=== PATIENT | female | born 1945 | race Caucasian/White ===

== ENCOUNTER 2020-10-05 07:49 | Outpatient (REF) | payer MEDICARE, SELFPAY ==
[2020-10-05 11:39] LABS: Estimated Average Glucose 128 mg/dL; Hemoglobin A1c % 6.1 %
[2020-10-05 11:43] LABS: Alanine Aminotransferase 24 U/L (0-31); Anion Gap 15 (12-20); Aspartate Amino Transferase 24 U/L (5-31); Blood Urea Nitrogen 21 mg/dL (9-16); Calcium 9.7 mg/dL (8.4-10.2); Carbon Dioxide 25 mmol/L (22-29); Chloride 103 mmol/L (96-108); Cholesterol 265 mg/dL; Estimated Glomerular Filt Rate > 60; Glucose Fasting 147 mg/dL (60-99); HDL Cholesterol 40 mg/dL; LDL Cholesterol Calculated 155 mg/dl; Potassium 4.4 mmol/l (3.3-5.1); Sodium 139 mmol/L (135-145); Triglycerides 353 mg/dL
[2020-10-05 12:06] LABS: Thyroid Stimulating Hormone 1.23 uIU/mL (0.32-4.0)
== END 2020-10-05 07:50 | disposition home or self-care (01) ==
LOC: HO.HMGCLDS 07:49
PROVIDERS: PCP Internal Medicine; Visit Provider Internal Medicine
DX: E78.5 Hyperlipidemia, unspecified (principal); F33.42 Major depressive disorder, recurrent, in full remission; E11.9 Type 2 diabetes mellitus without complications; I10 Essential (primary) hypertension
CPT/HCPCS: 80048; 80061; 83036; 84443; 84450; 84460

== ENCOUNTER 2020-10-27 10:00 | Outpatient (REF) | payer MEDICARE, SELFPAY ==
[2020-10-28 10:11] LABS: Anti-Thrombin III Activity 105 % normal (80-135)
[2020-10-28 17:18] LABS: Homocysteine 12.1 umol/L (<10.4)
[2020-10-29 21:28] LABS: Protein C Activity >200 % (70-180); Protein S Activity rflx Tot&Fr 107 % (60-140)
== END 2020-10-27 10:01 | disposition home or self-care (01) ==
LOC: HO.HMGCLDS 10:00
PROVIDERS: PCP Internal Medicine; Visit Provider Internal Medicine
DX: I26.99 Other pulmonary embolism without acute cor pulmonale (principal)
CPT/HCPCS: 36415; 81241; 83090; 85300; 85302; 85303; 85305; 85306

== ENCOUNTER → 2020-11-07 14:50 | Outpatient (BNVA) | payer MEDICARE, SELFPAY | PROVIDERS: PCP Internal Medicine; Visit Provider Hospitalist | DX: I26.99 Other pulmonary embolism without acute cor pulmonale (principal); K21.9 Gastro-esophageal reflux disease without esophagitis; R91.8 Other nonspecific abnormal finding of lung field; J43.2 Centrilobular emphysema | CPT/HCPCS: 99202 ==

== ENCOUNTER → 2020-11-14 13:01 | Outpatient (REF) | payer MEDICARE, SELFPAY ==
--- NOTE | 2020-11-14 13:04 | NM_ITS ---
PULMONARY PERFUSION ONLY STUDY: CLINICAL INDICATION: Pulmonary embolism without acute cor pulmonale. History of bilateral acute pulmonary embolism with near occlusive lobar thrombi involving right upper lobe, right middle lobe, and right lower lobe and subsegmental thrombi within the left upper and left lower lobe, detected on outside CTA of the chest done on 10/16/2020. PROCEDURE: Following the intravenous administration of 4.0 millicuries technetium 99m MAA, images of the chest were obtained in multiple projections using a gamma scintiphotographic camera. The radiotracer was injected through left antecubital superficial vein without complications. COMPARISON: Report from prior CT of the chest done on 10/16/2020. Chest radiograph done earlier today. The chest radiographs shows bilateral clear lung rodas. PERFUSION IMAGES: Subtle peripheral moderate size wedge-shaped defects are identified within the right upper lobe and also left upper lobe (2 on the right and one on the left). Asymmetric decreased perfusion is also noted within the right lung especially involving the right upper lobe. Subtle similar-appearing wedge-shaped defects are also noted at both lung bases, base seen on the posterior projection (one on each side). Given the history of bilateral pulmonary thromboembolism, the findings likely represent resolving thromboembolism. The remainder of the lung rodas bilaterally shows smooth homogenous radiotracer distribution. NM/NM pul perfusion IMPRESSION: Given the history of bilateral multilobar pulmonary thromboembolism, subtle perfusion defects seen at both upper and both lower lobes likely represents resolving thromboembolism. Based on perfusion only modified PIOPED 2 criteria, the findings are consistent with PE present. Correlation with follow-up CTA of the chest may be considered for further clarification, if clinically appropriate. Alternatively, the patient may be followed with follow-up perfusion scan to document complete resolution. This critical result was discussed with Dr. Carlos MD at 4:10 PM on 11/14/2020 and it was ascertained that the content and urgency of the report was understood at the time of direct communication.
--- NOTE | 2020-11-14 13:17 | XR_ITS ---
EXAMINATION: XR CHEST CLINICAL INFORMATION: Shortness of breath. Other pulmonary embolism without cor pulmonale. COMPARISON: None TECHNIQUE: 2 views of the chest were obtained. FINDINGS: No significant abnormality is noted involving the heart, lungs, mediastinum, bony thorax or soft tissues. Multilevel sternotomy wires are intact. XR/XR chest 2V IMPRESSION: No acute cardiopulmonary process.
== END ==
LOC: HO.NUCMED 13:01
PROVIDERS: Visit Provider Hospitalist
DX: I26.99 Other pulmonary embolism without acute cor pulmonale (principal)
CPT/HCPCS: 71046; 78580; A9540

== ENCOUNTER 2020-11-15 07:36 | Outpatient (REF) | payer MEDICARE, SELFPAY ==
--- NOTE | 2020-11-15 07:37 | CT_ITS ---
EXAMINATION: CT ABDOMEN AND PELVIS WITH CONTRAST CLINICAL INFORMATION: Evaluate for malignancy. COMPARISON: Abdominal CT dated 06/12/2009. TECHNIQUE: Multidetector volumetric images were obtained from the superior aspect of the liver through the pubic symphysis following administration 85 mL of Omnipaque 350 intravenous contrast. Sagittal and coronal reformatted images were obtained on the technologist's workstation. Oral contrast: No This CT examination was performed using dose optimization techniques as appropriate, variously including the following: *Automated exposure control *Adjustment of mA and/or kV according to patient size (this includes techniques or standardized protocols for targeted exams where dose is matched to indication/reason for exam; i.e. extremities or head) *Use of iterative reconstruction technique DLP: 677 mGy-cm FINDINGS: LUNG BASES: Although incompletely visualized, there is a low-density filling defect in the right lower lobe pulmonary artery extending into segmental and subsegmental branches, consistent with a pulmonary embolism. Pulmonary embolic disease also partially visualized in the right middle lobe branch and left lower lobe posterior segmental and subsegmental branches. Dense mitral annular calcification noted. Heart size is normal. No pericardial or pleural effusion is seen. No airspace consolidation visible in the lung bases. LIVER, GALLBLADDER, AND BILIARY TREE: The liver is enlarged, measuring 22 cm craniocaudal. No focal hepatic lesion or biliary ductal dilatation is present. The gallbladder is unremarkable with no evidence of radiopaque gallstones, gallbladder wall thickening, or obvious pericholecystic inflammatory changes. PANCREAS: Unremarkable. SPLEEN: Unremarkable. ADRENAL GLANDS: Unremarkable. KIDNEYS AND URETERS: The kidneys are normal in size, shape, and attenuation. No hydronephrosis, hydroureter, or calculi seen. No perinephric stranding. BLADDER: Unremarkable. GASTROINTESTINAL TRACT: Scattered sigmoid colon diverticula noted without evidence of acute diverticulitis. No focal large bowel thickening is seen. No pericolonic inflammatory changes identified. There is no evidence of a bowel obstruction. ABDOMINAL WALL: Small fat-containing umbilical hernia. LYMPH NODES: Normal. VASCULAR: The infrarenal abdominal aorta measures 3.3 cm AP with moderate atherosclerotic wall calcifications, stable compared to prior imaging. PELVIC VISCERA: The uterus is not visualized, presumed, status post prior hysterectomy. OSSEOUS STRUCTURES: No acute osseous abnormality evident. Significant facet arthropathy noted at the L5-S1 level. CT/CT abdomen pelvis w con IMPRESSION: Incompletely visualized pulmonary embolism in the right lower lobe pulmonary artery extending into segmental and subsegmental branches. Pulmonary embolic disease in the right middle lobe lobe arterial branch and in left lower lobe segmental and subsegmental arterial branches. These findings were relayed to Dr. Gonzalez at 1:26 PM on 11/15/2020. The patient has known pulmonary emboli and is currently being treated. No suspicious soft tissue mass or adenopathy. Stable infrarenal abdominal aorta with moderate atherosclerotic wall calcifications. Sigmoid colonic diverticulosis. Hepatomegaly.
--- NOTE | 2020-11-15 08:32 | CA_ITS ---
Transthoracic Echocardiogram Patient (Last, First, Middle): Brittany Onofre A Gender: Female Date of : 1945 Age: 75 Procedure Date: 11/15/2020 Procedure Type: Transthoracic Echocardiogram Location: OP Height: 154.94 cm Weight: 96.16 kg BSA: 1.94 m2 Heart Rate: bpm BP: 144 / 78 mmHg Junior Financial Analyst: ALIDA Referring MD: Clifton Gonzalez MD Repairer Controller Tester: Nasir Michelle MD Symptoms: I27.20 - Pulmonary hypertension, unspecified Study Quality: Fair ECG Rhythm: Sinus Conclusions: - 1. Normal LV systolic function with impaired relaxation filling pattern 2. Moderate aortic stenosis 3. Moderate mitral calcification mild mitral regurgitation 4. Normal RV systolic pressure 5. No pericardial effusion Findings Left Ventricle Normal left ventricular size, thickness, and systolic function. The visually estimated ejection fraction is between 60-65%. There is paradoxical septal motion consistent with post-operative status. Spectral Doppler is indicative of an impaired relaxation filling pattern. E/E prime ratio is between 8 and 15 consistent with indeterminate filling pressures. Right Ventricle Normal right ventricular cavity size and systolic function. Atria The left atrium is likely dilated. There is no evidence of interatrial shunt. The right atrium is normal in size. Aortic Valve There is moderate calcification of the aortic valve. There is moderate thickening of the aortic valve. There is moderate aortic valve stenosis. The peak aortic gradient is 34 mmHg.The mean gradient is 22 mmHg. There is no aortic valve regurgitation. Mitral Valve There is mild anterior and moderate posterior mitral leaflet thickening. There is moderate mitral annular calcification. There is mild mitral valve regurgitation. There is no mitral valve stenosis. Pulmonic Valve The pulmonic valve was not well visualized. Tricuspid Valve Likely normal tricuspid valve structure and function. There is mild tricuspid valve regurgitation. The right ventricular systolic pressure is normal. The right ventricular systolic pressure is 24 mmHg. Normal right atrial pressure. There is no evidence of pulmonary hypertension. Great Vessels All visible segments of the aorta are normal in size. The pulmonary artery was not well visualized. Venous The inferior vena cava is normal in size and collapses greater than 50% with inspiration. Pericardium/Pleural There is no evidence of pericardial effusion. Prior Study Comparison No prior study available for comparison. Measurements 2D Linear Measurements IVSd: 1.07 0.6-0.9/0.6-1.0 cm LVIDd: 5.13 3.9-5.3/4.2-5.9 cm LVIDd Index: 2.64 2.4-3.2/2.2-3.1 cm/m2 LVIDs: 4.23 2.0-3.6 cm LVPWd: 0.65 0.7-1.1 cm Ao Root: 2.60 2.1-3.5 cm LA Diam: 4.20 2.7-3.8/3.0-4.0 cm LAIDs Index: 2.16 1.5-2.3 cm/m2 LV Mass: 193.87 67-162/88-224 g LV Mass Index: 99.93 43-95/49-115 g/m2 LVOT Diam: 2.00 3.0+(-)1.3 cm 2D Systolic Function EF 4C: 57.80 >55% Mitral Valve MV Pk E: 0.90 MV PK A: 1.13 MV Decel Time: 183.00 E/A: 0.80 E'Lateral: 6.19 E'Medial: 6.00 E/E' Med: 15.00 E/E' Lat: 14.50 PHT: 54.00 MVA PHT: 4.07 Decel [place]: 4.90 Aortic Valve AoV Pk Ronny: 2.90 AoV Mn Ronny: 2.19 AoV VTI: 0.70 AoV Pk Grad: 34.00 Aov Mn Grad: 22.00 JOSY Cont.VTI: 1.20 LVOT LVOT Pk Ronny: 0.98 LVOT Mn Ronny: 0.69 LVOT VTI: 0.24 LVOT Pk Grad: 4.00 LVOT Mn Grad: 2.00 LVOT Diam: 2.00 LVOT Area: 3.14 Diastolic Function MV Pk E: 0.90 MV Pk A: 1.13 E/A: 0.80 E'Medial: 6.00 E/E' Med: 15.00 E' Laterial: 6.19 E/E' Lat: 14.50 Tricuspid Valve TR Pk Ronny: 228.00 TR Pk Grad: 21.00 RA Press: 3.00 RVSP: 24.00 Great Vessels Aorta Ao Root-2D: 2.60 2.0-3.7 cm Ao Asc: 3.20 2.1-3.4 cm Updated in Other Vendor System with Status of Final Nasir Michelle MD electronically signed on 11/16/2020 1:01:50 PM with status of Final
[2020-11-15] MEDS: iohexoL 350 MG/ML 100 ML INFUS..BTL IV (10:54)
[2020-11-15] MEDS: Barium Sulfate Oral (Vanilla) 450 ML ORAL.SUSP 900 ML PO (10:55)
== END 2020-11-15 07:37 | disposition home or self-care (01) ==
LOC: HO.CT 07:36
PROVIDERS: Visit Provider Hospitalist
DX: I27.20 Pulmonary hypertension, unspecified (principal); I26.99 Other pulmonary embolism without acute cor pulmonale; K21.9 Gastro-esophageal reflux disease without esophagitis; K58.2 Mixed irritable bowel syndrome
CPT/HCPCS: 74177; 93306; Q9967

== ENCOUNTER 2020-11-21 12:48 | Outpatient (REF) | payer MEDICARE, SELFPAY ==
--- NOTE | ~2020-11-21 | MM_ITS ---
EXAMINATION: MM SCREENING DIGITAL BREAST TOMOSYNTHESIS, BILATERAL CLINICAL INFORMATION: Screening. Asymptomatic. Prior reduction mammoplasty 2010. The lifetime risk of breast cancer based on the Tyrer-Cuzick Model is 2%. COMPARISON: Mammography: 09/07/2019, 02/25/2019, 02/13/2018, 12/17/2016 TECHNIQUE: Digital breast tomosynthesis is performed in both the craniocaudal and mediolateral oblique views along with computer-aided detection (CAD). Synthesized 2D images are generated from the tomosynthesis. FINDINGS: There are scattered areas of fibroglandular density (ACR BI-RADS breast composition Category b). There are no significant masses, abnormal calcifications, or other abnormalities. Background stromal densities are similar to prior studies. There is no developing density or interval mass or architectural abnormality. The skin contours are smooth. MM/MM tomosynthesis screening BI IMPRESSION: No mammographic evidence of malignancy. ASSESSMENT: BI-RADS 1: Negative RECOMMENDATION: Routine annual mammography screening. This patient's information was entered into a reminder system with a target due date for their next mammogram.
== END 2020-11-21 12:49 | disposition home or self-care (01) ==
LOC: HO.MAMMO 12:48
PROVIDERS: PCP Internal Medicine; Visit Provider Internal Medicine
DX: Z12.31 Encounter for screening mammogram for malignant neoplasm of breast (principal)
CPT/HCPCS: 77063; 77067

== ENCOUNTER 2020-12-08 09:53 | Outpatient (REF) | payer MEDICARE, SELFPAY ==
[2020-12-08 11:14] LABS: MANUAL DIFF FLAG NO
[2020-12-08 11:22] LABS: Basophils Percent Auto 0.2 % (0-2); Eosinophils Absolute Auto 0.1 X10*3/uL (0.0-0.4); Eosinophils Percent Auto 2.5 % (0-4); Hematocrit 25.3 % (37-47); Hemoglobin 7.6 g/dl (12.0-16.0); Imm Gran Abs Auto 0.01 X10*3/uL (0.00-0.03); Imm Gran Pct Auto 0.2 % (0.0-0.4); Lymphocytes Absolute Auto 1.7 X10*3/uL (1.2-4.9); Lymphocytes Percent Auto 29.6 % (20-40); Mean Corpuscular Hemoglobin 32.5 pg (27.0-33.0); Mean Corpuscular Volume 108.1 fL (80-98); Mean Platelet Volume 9.9 fL (9.4-12.3); Monocytes Absolute Auto 0.6 X10*3/uL (0.1-1.2); Monocytes Percent Auto 9.9 % (2-11); NRBC Pct Auto 0.4 /100WBC (0.0-0.2); Neutrophils Absolute Auto 3.2 X10*3/uL (2.0-8.3); Neutrophils Percent Auto 57.6 % (45-73); Platelet Count 310 X10*3/uL (160-400); Red Blood Count 2.34 X10*6/uL (4.20-5.50); Red Cell Distribution Width 15.2 % (11.0-16.0); White Blood Count 5.6 X10*3/uL (4.8-10.8)
[2020-12-08 11:27] LABS: INTERNATIONAL NORM RATIO 1.2 (0.9-1.1); Prothrombin Time 14.3 SEC (10.8-13.0)
[2020-12-08 11:53] LABS: Alanine Aminotransferase 11 U/L (0-31); Albumin Level 4.2 g/dL (3.5-5.0); Alkaline Phosphatase 50 U/L (39-117); Aspartate Amino Transferase 15 U/L (5-31); Bilirubin Direct < 0.2 mg/dL (0.0-0.5); Bilirubin Total 0.2 mg/dL (0.0-1.0)
[2020-12-08 12:01] LABS: Erythrocyte Sedimentation Rate 78 MM/HR (0-20)
== END 2020-12-08 09:54 | disposition home or self-care (01) ==
LOC: HO.HMGCLDS 09:53
PROVIDERS: PCP Internal Medicine; Visit Provider Hospitalist
DX: Z13.89 Encounter for screening for other disorder (principal)
CPT/HCPCS: 36415; 80076; 85025; 85610; 85652

== ENCOUNTER 2020-12-08 13:34 | Inpatient (IN) | payer MEDICARE, SELFPAY ==
[2020-12-08] VITALS (11 sets, daily range): BP systolic 110–151; BP diastolic 41–94; PULSE 88–105; RESP 14–20; TEMP 36.7–36.9; O2SAT 97–98; BMI 40.4
--- NOTE | 2020-12-08 13:41 | ED.RECABL ---
HPI - Recheck/Abnormal Lab/Rx General Chief Complaint: Recheck/Abnormal Lab/Rx Stated Complaint: low hemoglobin Time Seen by Provider: 12/08/20 13:39 Source: patient and old records reviewed Mode of arrival: ambulatory Limitations: no limitations History of Present Illness HPI narrative: 75 yo female with CAD, COPD lung nodules, recent submassive PE on eliquis took her dose this AM (October 2020), HPL, restless leg syndrome, DM, HTN, GERD notes fatigue x 1 week, and upper abdominal discomfort not responding to her PPI or pepto bismol unsure if she has had black stools but had a h/h today and found that her Hgb went from 12 to 7.6, she had a CT scan of her abdomen 11/15/20 no mass noted but did have diverticulosis complaint: abnormal lab Initial visit (ago): hour(s) (10am today ) Initial visit for: other (workup post PE) Returns today for: called because of abnormal lab/test Symptoms since prior visit: no new symptoms Context: called for abnormal lab result Associated symptoms: other (fatigue, darker stools) Treatments prior to arrival: other (has noted some increased upper abdominal discomfort and has been taking pepto bismol as well ) Related Data Home Medications Medication Instructions Recorded Confirmed aspirin 81 mg tablet,delayed 81 mg PO DAILY 10/26/20 12/08/20 release atorvastatin 80 mg tablet 80 mg PO DAILY 10/26/20 12/08/20 cholecalciferol (vitamin D3) 50 50 mcg PO DAILY 10/26/20 12/08/20 mcg (2,000 unit) capsule ferrous fumarate 325 mg (106 mg 325 mg PO DAILY 10/26/20 12/08/20 iron) tablet glipizide 5 mg tablet 5 mg PO BID 10/26/20 12/08/20 metformin 500 mg tablet 500 mg PO DAILY 10/26/20 12/08/20 omeprazole 20 mg capsule,delayed 20 mg PO DAILY 10/26/20 12/08/20 release verapamil 100 mg capsule 24hr 100 mg PO BEDTIME 10/26/20 12/08/[address],ext.release acetaminophen 500 mg tablet 500 mg PO Q6H PRN 11/07/20 12/08/20 Previous Rx's Medication Instructions Recorded lisinopril 2.5 mg tablet 2.5 mg PO DAILY #90 tab 07/24/20 metoprolol succinate 50 mg 150 mg PO DAILY #270 tab 07/24/20 tablet,extended release 24 hr pramipexole 0.25 mg tablet 0.25 mg PO BID PRN #180 tab 07/24/20 trazodone 50 mg tablet 50 mg PO BEDTIME #90 tab 07/24/20 duloxetine 30 mg capsule,delayed 30 mg PO DAILY #90 cap 11/14/20 release alprazolam 0.25 mg tablet 0.25 mg PO DAILY PRN #20 tab 11/27/20 apixaban 5 mg tablet 5 mg PO Q12H #60 tab 11/29/20 Allergies Allergy/AdvReac Type Severity Reaction Status Date / Time Sulfa (Sulfonamide Allergy Severe Rash Verified 11/07/20 19:08 Antibiotics) adhesive tape [ADHESIVE TAPE] Allergy Intermediate BLISTERS Verified 11/07/20 19:08 sulfamethoxazole Allergy Intermediate RASH Verified 11/07/20 19:08 [From BACTRIM] trimethoprim [From BACTRIM] Allergy Intermediate RASH Verified 11/07/20 19:08 gabapentin AdvReac Severe hallucinati Verified 11/07/20 19:08 on morphine AdvReac Severe hallucinati Verified 11/07/20 19:08 on Review of Systems Review of Systems: Constitutional : No Weight loss, No Fever, No Chills, pos fatigue ENT/Mouth : No sore throat, No Rhinorrhea Eyes: No Swelling, No Redness Cardiovascular : No Chest Pain, No SOB, NoEdema Respiratory : No Cough, No Sputum, No Wheezing Gastrointestinal : no Nausea, no Vomiting, no Diarrhea, no abdominal Pain, No Hematochezia, pos Melena Genitourinary : No Dysuria, No Urinary Frequency, No Hematuria, No Urgency Musculoskeletal : No joint pain, No Myalgias, No Joint Swelling Skin : No Skin Lesions, No rash Neuro : No Weakness, No Numbness, No Dizziness, No Headache Psych : No Anxiety/Panic, No Depression Heme/Lymph: No Bruising, No Lymphadenopathy Endocrine : No Polyuria, No Polydipsia All other systems reviewed and are negative. [facility] Past Medical History Attestation statement: The following information was validated with the patient. Medical History Bilateral pulmonary embolism CAD (coronary artery disease) COPD (chronic obstructive pulmonary disease) Essential hypertension GERD without esophagitis Irritable bowel syndrome with both constipation and diarrhea Left upper lobe pulmonary nodule Major depression in full remission Mixed dyslipidemia Pulmonary nodules Restless leg syndrome Type 2 diabetes mellitus without complication, without long-term current use of insulin Surgical History History of angioplasty History of heart artery stent History of knee replacement History of lymphoma S/P CABG x 2 Family History Family History Father HTN (hypertension) Myocardial infarction Hyperlipidemia Abdominal aneurysm Mother HTN (hypertension) Myocardial infarction Hyperlipidemia Brother Alzheimer's disease Sister Rheumatoid arthritis Brother Rheumatoid arthritis Maternal Aunt Diabetes mellitus Lung cancer Maternal Uncle Diabetes mellitus Son No problems noted. Daughter No problems noted. Social History Social History Alcohol intake: never Smoking Status: Former smoker Tobacco Type: Cigarette Smoked in Last 30 Days: No Use of substances other than those prescribed or required for medical reasons: No Advance Directives: No Advance Directives Information Provided: No Physical Exam Vital Signs: Vital Signs: Last Vital Signs Temp 98.1 F 12/08/20 15:14 Pulse 88 12/08/20 15:14 Resp 18 12/08/20 15:14 BP 110/51 L 12/08/20 15:14 Pulse Ox 97 12/08/20 15:14 Body Mass Index 40.4 Appearance: Alert. Oriented X3. No acute distress. Eyes: Pupils equal, round and reactive to light. ENT: Pharynx normal. Neck: Normal inspection. Neck supple. CVS: Normal heart rate and rhythm. Pulses normal. Respiratory: No respiratory distress. Breath sounds normal. Abdomen: Soft and nontender. Rectal: multiple enlarged non thrombotic hemorrhoids, black streaked stool, no brb no bleeding hemorrhoids Skin: Skin warm and dry. Normal skin color. Normal skin turgor. Extremities: No lower extremity edema. No calf ttp Neuro: Oriented X 3. No motor deficit. No sensory deficit. Course Course Course Narrative: 2 UPRBCs ordered MDM - Recheck/Abnormal Lab/Rx MDM Narrative Medical decision making narrative: 75 yo female with COPD, pulm nodules, recent submassive PE on eliquis took her dose this AM, CAD, sent here for low H/H, has had some black stools and epigastric burning - does take a PPI at this time will need labs, type an screen 2 UPRBCs, IV PPI, likely admit for further workup. Lab Data Result diagrams: 12/08/20 14:18 Labs: Lab Results 12/08/20 12/08/20 12/08/20 Range/Units 14:13 14:14 14:17 Sodium (135-145) mmol/L Potassium (3.3-5.1) mmol/L Chloride (96-108) mmol/L Carbon Dioxide (22-29) mmol/L Anion Gap (12-20) BUN (9-16) mg/dL Creatinine (0.5-1.4) mg/dL Estim Creat Clear Calc Estimated GFR Random Glucose (60-115) mg/dL Calcium (8.4-10.2) mg/dL Iron (30-160) mcg/dL TIBC (228-428) mcg/dL % Saturation (15-50) % Unsat Iron Binding ug/dL Stool Occult Blood NEG (NEG) COVID-19 (ARNAV) Negative (Negative) [id number] Com See Note Blood Type A Positive Antibody Screen NEGATIVE Crossmatch See Detail 12/08/20 Range/Units 14:18 Sodium 141 (135-145) mmol/L Potassium 4.2 (3.3-5.1) mmol/L Chloride 106 (96-108) mmol/L Carbon Dioxide 25 (22-29) mmol/L Anion Gap 14 (12-20) BUN 20 H (9-16) mg/dL Creatinine 0.79 (0.5-1.4) mg/dL Estim Creat Clear Calc 67.6 Estimated GFR > 60 Random Glucose 104 (60-115) mg/dL Calcium 9.2 (8.4-10.2) mg/dL Iron 336 H (30-160) mcg/dL TIBC 402 (228-428) mcg/dL % Saturation 84 H (15-50) % Unsat Iron Binding 66 ug/dL Stool Occult Blood (NEG) COVID-19 (ARNAV) (Negative) COVID-19 Clin Com Blood Type Antibody Screen Crossmatch ECG Data Attestation: I personally reviewed and interpreted this ECG as follows: ECG interpretation date: 12/08/20 ECG interpretation time: 14:10 Interpretation: Rate: 86 Rhythm: NSR [place]: left Normal P waves. Normal ASTER. Normal QRS complex. ST T wave : nonspecific no ERICA qTC: normal prior studies: no acute ischemia The study has been interpreted contemporaneously by me. . Critical Care Time Critical Care Time Critical Care Time: Yes Total Critical Care Time: 35 Attestation: review of notes, 2 UPRBCs transfusion I attest to this time spent taking care of the patient Discharge Plan Discharge Clinical Impression: Anemia Qualifiers: Anemia type: unspecified type Qualified Code(s): D64.9 - Anemia, unspecified GIB (gastrointestinal bleeding) Qualifiers: GI bleed type/associated pathology: melena Qualified Code(s): K92.1 - Melena Patient Disposition: Admitted As Inpatient
--- NOTE | 2020-12-08 13:43 | ECG_ITS ---
Test Reason : RECHECK Blood Pressure : / mmHG Vent. Rate : 086 BPM Atrial Rate : 086 BPM P-R Int : 168 ms QRS Dur : 090 ms QT Int : 390 ms P-R-T Axes : 056 -03 024 degrees QTc Int : 466 ms Normal sinus rhythm Normal ECG When compared with ECG of 03-FEB-2019 12:04, Premature ventricular complexes are no longer Present Referred By: Winifred Bautista Electronically Signed By:JADON PATEL MD
[2020-12-08 14:31] LABS: OBS1 NEG (NEG)
[2020-12-08 14:32] LABS: OBS Int Ctl Valid YES
[2020-12-08 14:46] LABS: COVID-19 Test Negative (Negative)
[2020-12-08 14:52] LABS: Anion Gap 14 (12-20); Blood Urea Nitrogen 20 mg/dL (9-16); Calcium 9.2 mg/dL (8.4-10.2); Carbon Dioxide 25 mmol/L (22-29); Chloride 106 mmol/L (96-108); Creatinine Clr Calc Pharmacy 67.6; Estimated Glomerular Filt Rate > 60; Glucose Random 104 mg/dL (60-115); Iron 336 mcg/dL (30-160); Percent Iron Saturation 84 % (15-50); Potassium 4.2 mmol/L (3.3-5.1); Sodium 141 mmol/L (135-145); Total Iron Binding Capacity 402 mcg/dL (228-428); Unsaturated Iron Binding 66 ug/dL
[2020-12-08] MEDS: Pantoprazole Sodium 40 MG/10 ML VIAL IVPUSH (15:04)
[2020-12-08 16:51] LABS: Folate 9.6 ng/mL (> or = 4.0); Vitamin B12 162 pg/mL (200-900)
--- NOTE | 2020-12-08 17:58 | PM.IMHP ---
History of Present Illness Date of Service: 12/08/20 Chief Complaint: Increased lethargy, weakness A 75 years old lady with PMH of CAD, COPD, lung nodules, recent PE on Eliquis who presents to the hospital with a complaint of increased lethargy and weakness. The patient reported that she was doing well until almost 1 week ago when she started to notice that she became very easily winded with minimal activity at her energy level has decreased significantly. She reports that she started Eliquis last month after being diagnosed with PE. She noticed that her stools have been black but reports that she takes iron pills and test with has been always dark. Her baseline hemoglobin was noted to be around 13 what in the emergency today was noticed to be 7.6. In the emergency blood transfusion was started in the patient was admitted to the hospital for further evaluation and treatment. Review of Systems Constitutional: Comments: No fever, chills but feeling fatigue and generalized weakness No chest pain, palpitation Exertional shortness of breath or coughing No abdominal pain, nausea or vomiting No urinary symptoms No any rash or wounds PMFSH Medical History Bilateral pulmonary embolism CAD (coronary artery disease) COPD (chronic obstructive pulmonary disease) Essential hypertension GERD without esophagitis Irritable bowel syndrome with both constipation and diarrhea Left upper lobe pulmonary nodule Major depression in full remission Mixed dyslipidemia Pulmonary nodules Restless leg syndrome Type 2 diabetes mellitus without complication, without long-term current use of insulin Family History Father HTN (hypertension) Myocardial infarction Hyperlipidemia Abdominal aneurysm Mother HTN (hypertension) Myocardial infarction Hyperlipidemia Brother Alzheimer's disease Sister Rheumatoid arthritis Brother Rheumatoid arthritis Maternal Aunt Diabetes mellitus Lung cancer Maternal Uncle Diabetes mellitus Son No problems noted. Daughter No problems noted. Surgical History History of angioplasty History of heart artery stent History of knee replacement History of lymphoma S/P CABG x 2 Social History Alcohol intake: never Smoking Status: Former smoker Tobacco Type: Cigarette Smoked in Last 30 Days: No Use of substances other than those prescribed or required for medical reasons: No Advance Directives: No Advance Directives Information Provided: No Meds Allergies Allergy/AdvReac Type Severity Reaction Status Date / Time Sulfa (Sulfonamide Allergy Severe Rash Verified 11/07/20 19:08 Antibiotics) adhesive tape [ADHESIVE TAPE] Allergy Intermediate BLISTERS Verified 11/07/20 19:08 sulfamethoxazole Allergy Intermediate RASH Verified 11/07/20 19:08 [From BACTRIM] trimethoprim [From BACTRIM] Allergy Intermediate RASH Verified 11/07/20 19:08 gabapentin AdvReac Severe hallucinati Verified 11/07/20 19:08 on morphine AdvReac Severe hallucinati Verified 11/07/20 19:08 on Active Medications: Current Medications Generic Name Dose Route Start Last Admin Trade Name Freq PRN Reason Stop Dose Admin Pantoprazole Sodium 80 mg/ 100 mls @ 10 mls/hr 12/08/20 16:00 Sodium Chloride IV .Q10H CHRISTY 8 MG/HR Insulin Human Lispro 0 unit 12/08/20 21:00 Insulin Lispro 100 Unit/Ml 3 Ml Vial SUBCUT [facility] Protocol Pharmacy Consult 1 each 12/08/20 13:43 Consult Rx Perform Med Rec MISCELLANE ONCE PRN Consult order Zolpidem Tartrate 5 mg 12/08/20 21:00 Zolpidem Tartrate 5 Mg Tablet PO 12/10/20 21:01 BEDTIME [facility] Home Medications Medication Instructions Recorded Confirmed Last Taken Type aspirin 81 mg tablet,delayed 81 mg PO DAILY 10/26/20 12/08/20 12/08/20 History release atorvastatin 80 mg tablet 80 mg PO DAILY 10/26/20 12/08/20 12/08/20 History cholecalciferol (vitamin D3) 50 50 mcg PO DAILY 10/26/20 12/08/20 12/08/20 History mcg (2,000 unit) capsule ferrous fumarate 325 mg (106 mg 325 mg PO DAILY 10/26/20 12/08/20 12/08/20 History iron) tablet glipizide 5 mg tablet 5 mg PO BID 10/26/20 12/08/20 12/08/20 History metformin 500 mg tablet 500 mg PO DAILY 10/26/20 12/08/20 12/08/20 History omeprazole 20 mg capsule,delayed 20 mg PO DAILY 10/26/20 12/08/20 12/08/20 History release verapamil 100 mg capsule 24hr 100 mg PO BEDTIME 10/26/20 12/08/20 12/07/[address],ext.release acetaminophen 500 mg tablet 500 mg PO Q6H PRN 11/07/20 12/08/20 12/08/20 History Physical Exam Vital Signs and Narrative: Vital Signs: Last Vital Signs Temp 98.2 F 12/08/20 16:36 Pulse 89 12/08/20 16:36 Resp 19 12/08/20 16:36 BP 117/41 L 12/08/20 16:36 Pulse Ox 98 12/08/20 16:09 Body Mass Index 40.4 Const: Other: Constitutional : Alert, oriented, not in distress Neck : Normal inspection, Supple Cardiovascular : RRR, S1 S2, no lower extremity edema Respiratory : Good bilateral air entry, no crackles, wheezes or rhonchi Gastrointestinal: soft, lax, Normal bowel sounds, Non tender Skin : Warm/Dry, No rash Neurological : Alert & oriented x3, No focal deficit Results Labs CBC and Chem 7: 12/08/20 14:18 Labs: Laboratory Results - last 24 hr 12/08/20 12/08/20 12/08/20 14:13 14:14 14:17 Anion Gap Estim Creat Clear Calc Estimated GFR Random Glucose Calcium Iron TIBC % Saturation Unsat Iron Binding Vitamin B12 Folate Stool Occult Blood NEG COVID-19 (ARNAV) Negative COVID-Incont See Note Blood Type A Positive Antibody Screen NEGATIVE Crossmatch See Detail 12/08/20 12/08/20 14:18 14:18 Anion Gap 14 Estim Creat Clear Calc 67.6 Estimated GFR > 60 Random Glucose 104 Calcium 9.2 Iron 336 H TIBC 402 % Saturation 84 H Unsat Iron Binding 66 Vitamin B12 162 L Folate 9.6 Stool Occult Blood COVID-19 (ARNAV) COVID-19 Clin Com Blood Type Antibody Screen Crossmatch Assessment and Plan (1) Acute blood loss anemia: Status: Acute (2) Symptomatic anemia: Status: Acute (3) GIB (gastrointestinal bleeding): Qualifiers: GI bleed type/associated pathology: melena Qualified Code(s): K92.1 - Melena Status: Acute (4) COPD (chronic obstructive pulmonary disease): Qualifiers: COPD type: emphysema Emphysema type: centrilobular Qualified Code(s): J43.2 - Centrilobular emphysema Status: Acute (5) Bilateral pulmonary embolism: Status: Acute A 75 years old lady with PMH of CAD, COPD, lung nodules, recent PE on Eliquis who presents to the hospital with a complaint of increased lethargy and weakness. blood loss anemia Symptomatic anemia Likely a result of GI bleed which is more of chronic than acute Hemoglobin of 7.6, goal to keep it above 8, to transfuse Monitor H&H Start pantoprazole drip Hold Eliquis for now Gentle hydration Keep NPO after midnight To get GI evaluation the morning History CAD, HTN Continue atorvastatin, lisinopril, metoprolol and verapamil Diabetes type 2 Hold p.o. medications SSI next Lyme diabetic diet Recent PE The patient developed PE on 11/05/2020 Underlying [place] thought to be malignancy given pulmonary nodules, expected anticoagulation for life To get Hematology evaluation for the future plan DVT PPX SCDs
[2020-12-08] MEDS: Pantoprazole Sodium 80 MG in 0.9 % Sodium Chloride 80 ML 10 MG IV (18:20)
--- NOTE | 2020-12-08 18:29 | MHC.CM.PN ---
CM met with pt. IMM 12/08/20. Reviewed and signed per protocol. Pt. lives at home with her . Has no services/medical equipment. Very independent. HCP/ Clifton Onofre ([phone]). Not on file. Pt believes it is.D/C plan is home without services. Daughter, Mary Kay Urbina ([phone]) to provide transportation. CM to follow for d/c needs.
[2020-12-08 19:27] LABS: Glucose, Whole Blood 122 mg/dL (60-115)
--- NOTE | 2020-12-08 20:36 | PC.NURSE ---
SECOND UNIT OF BLOOD TRANSFUSING. NO REACTIONS NOTED AT THIS TIME. SINUS RHYTHM ON CARDIAC MONTIOR. LUNGS CLEAR TO AUSCULTATION IN ALL BEATTY.
[2020-12-08 21:13] LABS: Glucose, Whole Blood 130 mg/dL (60-115)
[2020-12-08] MEDS: ALPRAZolam 0.25 MG TABLET PO (21:19)
[2020-12-08] MEDS: traZODone HCL 50 MG TABLET PO (21:19)
[2020-12-08] MEDS: Pramipexole Di-HCL 0.25 MG TABLET PO (21:19)
[2020-12-08] MEDS: 0.9 % Sodium Chloride 1,000 ML 60 ML IVCONT (21:44)
--- NOTE | 2020-12-08 22:49 | PC.NURSE ---
SECOND UNIT COMPLETE. LUNGS CLEAR TO AUSCULTATION. 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 PATIENT SITTING UP, RESTLESS LEGS BOTHERING HER.
[2020-12-09] VITALS (8 sets, daily range): BP systolic 122–144; BP diastolic 61–90; PULSE 81–104; RESP 16–20; TEMP 36.2–36.8; O2SAT 96–98
[2020-12-09] MEDS: Acetaminophen 325 MG TABLET 650 MG PO ×2 (00:59→08:54)
[2020-12-09] MEDS: Pantoprazole Sodium 80 MG in 0.9 % Sodium Chloride 80 ML 10 MG IV (04:19)
[2020-12-09] MEDS: traZODone HCL 25 MG HALFTAB PO (06:08)
[2020-12-09 06:55] LABS: Hematocrit 30.7 % (37-47); Hemoglobin 9.9 g/dl (12.0-16.0); Mean Corpuscular HGB Conc 32.2 g/dl (31.0-35.0); Mean Corpuscular Hemoglobin 31.9 pg (27.0-33.0); Mean Platelet Volume 9.6 fL (9.4-12.3); NRBC Pct Auto 0.3 /100WBC (0.0-0.2); Platelet Count 280 X10*3/uL (160-400); Red Cell Distribution Width 18.4 % (11.0-16.0); White Blood Count 7.1 X10*3/uL (4.8-10.8)
[2020-12-09 07:28] LABS: Alanine Aminotransferase 12 U/L (0-31); Albumin Level 4.4 g/dL (3.5-5.0); Alkaline Phosphatase 52 U/L (39-117); Anion Gap 15 (12-20); Aspartate Amino Transferase 17 U/L (5-31); Bilirubin Direct 0.5 mg/dL (0.0-0.5); Bilirubin Total 1.3 mg/dL (0.0-1.0); Blood Urea Nitrogen 18 mg/dL (9-16); Calcium 9.4 mg/dL (8.4-10.2); Carbon Dioxide 22 mmol/L (22-29); Chloride 106 mmol/L (96-108); Creatinine Clr Calc Pharmacy 63.5; Estimated Glomerular Filt Rate > 60; Glucose Random 159 mg/dL (60-115); Sodium 139 mmol/L (135-145); Total Protein 7.4 g/dL (6.5-8.0)
--- NOTE | 2020-12-09 07:52 | PC.NURSE ---
report taken from daniel long pt here for low h+h r/t possible chronic gi bleed. pt hemodynamically stable at this time, did not sleep well d/t restless legs. denies any other complaint at this time. pt has been npo since midnight d/t likely gi procedure today. wctm.
[2020-12-09] MEDS: ALPRAZolam 0.25 MG TABLET PO (08:53)
[2020-12-09] MEDS: Metoprolol Succinate ER 50 MG TAB.ER.24H 150 MG PO (08:53)
[2020-12-09] MEDS: DULoxetine HCl 30 MG CAPSULE.DR PO (08:54)
[2020-12-09 11:45] LABS: Retic HGB Equivalent 32.2 pg (30.0-35.0); Reticulocyte Percent 4.9 % (0.5-1.8); Reticulocytes Absolute 0.151 X10*6/uL (0.026-0.095)
[2020-12-09 11:54] LABS: Lactate Dehydrogenase 232 U/L (122-220)
--- NOTE | 2020-12-09 12:01 | P.CNGI_ITS ---
History of Present Illness Data of Consult Service Date: 12/09/20 Requesting physician: Marisabel Joshua Primary Care Provider: Sary Waite MD HPI Reason for consult: Fatigue, anemia 75 YF presented to [facility] yesterday evening with 1 week history of fatigue and upper abd discomfort. 75 yo female with CAD, COPD lung nodules, recent submassive PE on eliquis took her dose this AM (October 2020), HPL, restless leg syndrome, DM, HTN, GERD notes fatigue x 1 week, and upper abdominal discomfort not responding to her PPI or pepto bismol unsure if she has had black stools but had a h/h today and found that her Hgb went from 12 to 7.6, she had a CT scan of her abdomen 11/15/20 no m ass noted but did have diverticulosis Labs showed macrocytic anemia with H & H of 7.6 and 25.3 (decreased from 12.5 & 36.4 in 06/2020) Vitamin B12 level was 162. Pt was admitted and transfused IMAGING STUDIES: 11/15/[address] SCAN SHOWED: Incompletely visualized pulmonary embolism in the right lower lobe pulmonary artery extending into segmental and subsegmental branches. Pulmonary embolic disease in the right middle lobe lobe arterial branch and in left lower lobe segmental and subsegmental arterial branches. These findings were relayed to Dr. Gonzalez at 1:26 PM on 11/15/2020. The patient has known pulmonary emboli and is currently being treated. No suspicious soft tissue mass or adenopathy. Stable infrarenal abdominal aorta with moderate atherosclerotic wall calcifications. Sigmoid colonic diverticulosis. Hepatomegaly. ENDOSCOPIC STUDIES: 01/2019 EGD AND COLONOSCOPY WERE PREFORMED BY DR BEAVERS: Esophagus: GE junction at 35. No esophagitis or Vicente?s. small varix noted which collapsed with insufflation Stomach: Mild gastric erythema. Biopsies were obtained. Grade 2 flap valve on retroflexed examination of the cardia. Colonoscopy Ascending Colon ? single AVM noted measured about 6-8 mm. This was successfully ablated with APC, it ws non bleeding but friable when touched Rectum ? retroflexion w/ small to moderate sized internal hemorrhoids, grade II, prominent rectal veins noted Plan:NNAwait pathology results High fiber diet liver work up to check for cirrhosis, PVT after see her back at the office repeat colonoscopy in 10 yrs if health allows or earlier if clinically indicated TODAY'S VISIT: Patient complains of SOB on 10/16/20 and was hospitalized at [facility] x 4 days. Diagnosed with PE and discharged on Eliquis and a bay aspirin. Patient has noted progressive weakness with shortness of breath on exertion for the past several weeks. She is also noted a dull upper abdominal pain and dyspepsia half an are after eating. She has been taking Pepto-Bismol twice daily for 4-5 days. Patient notes occasional heartburn related to spicy foods denies dysphagia She admits to wt gain of 3 lbs over the past 5-6 weeks. Pt has a long hx of IBS with diarrhea alternating with constipation and takes dicyclomine with partial relief. She tried taking a fibre supplement once daily without improvement in symptoms. She has black stools due to oral iron. Patient denies loud snoring or sleep apnea Denies problems with anesthesia in the past Pt is on chronic anticoagulation. Patient denies known family history of colon polyps, colon cancer or other GI malignancies. Review of Systems Constitutional: Constitutional: Reports difficulty sleeping, Denies fever(s), Reports headache(s) and Reports weight gain Eyes: Eyes: Denies eye discharge, Reports dry eyes and Denies irritation ENT: Reports Normal hearing present, Denies dysphagia, Denies dizziness, Repor ts dry mouth and Reports headache(s) Cardiovascular: Cardiovascular: Reports chest pain, Denies leg edema, Reports dyspnea ( at rest), Reports dyspnea on exertion and Reports other ( palpita tions) Respiratory: Respiratory: Denies cough, Reports dyspnea ( at rest) and Reports dyspnea on exertion Gastrointestinal: Gastrointestinal: Reports abdominal pain, Denies change in bowel habits, Reports constipation, Denies dysphagia, Reports heartburn and Reports diarrhea Genitourinary: Genitourinary: Denies difficulty voiding, Denies dysuria and Reports other ( urinary frequency) Musculoskeletal: Musculoskeletal: Denies back pain and Reports arthralgias ( arthritis) Integumentary/Breasts: Skin/Breast: Denies pruritus, Reports rash, Denies jaundice and Reports other (Alopecia, photosensitivity) Neurologic: Reports Normal hearing present, Denies Abnormal speech present, Denies dizziness, Reports headache(s) and Denies seizure-like activity Psychiatric: Psychiatric: Reports anxiety, Reports depression and Denies panic attacks Endocrine: Endocrine: Denies cold intolerance, Denies flushing and Denies heat intolerance PMFSH Past Medical History Medical History Bilateral pulmonary embolism CAD (coronary artery disease) COPD (chronic obstructive pulmonary disease) Essential hypertension GERD without esophagitis Irritable bowel syndrome with both constipation and diarrhea Left upper lobe pulmonary nodule Major depression in full remission Mixed dyslipidemia Pulmonary nodules Restless leg syndrome Type 2 diabetes mellitus without complication, without long-term current use of insulin Family History Family History Father HTN (hypertension) Myocardial infarction Hyperlipidemia Abdominal aneurysm Mother HTN (hypertension) Myocardial infarction Hyperlipidemia Brother Alzheimer's disease Sister Rheumatoid arthritis Brother Rheumatoid arthritis Maternal Aunt Diabetes mellitus Lung cancer Maternal Uncle Diabetes mellitus Son No problems noted. Daughter No problems noted. Surgical History Surgical History History of angioplasty History of heart artery stent History of knee replacement History of lymphoma S/P CABG x 2 Social History Social History Household Members: Significant Other Housing: House Alcohol intake: never Smoking Status: Former smoker Tobacco Type: Cigarette Years Smoked: 30 service: No Current occupational status: retired [employer] Allergies Allergy/AdvReac Type Severity Reaction Status Date / Time Sulfa (Sulfonamide Allergy Severe Rash Verified 11/07/20 19:08 Antibiotics) adhesive tape [ADHESIVE TAPE] Allergy Intermediate BLISTERS Verified 11/07/20 19:08 sulfamethoxazole Allergy Intermediate RASH Verified 11/07/20 19:08 [From BACTRIM] trimethoprim [From BACTRIM] Allergy Intermediate RASH Verified 11/07/20 19:08 gabapentin AdvReac Severe hallucinati Verified 11/07/20 19:08 on morphine AdvReac Severe hallucinati Verified 11/07/20 19:08 on Active Medications: Current Medications Generic Name Dose Route Start Last Admin Trade Name Freq PRN Reason Stop Dose Admin Acetaminophen 650 mg 12/08/20 20:49 12/09/20 08:54 Acetaminophen 325 Mg Tablet PO 650 mg Q6H PRN Administration Pain, Mild (Pain Scale 1-3) Alprazolam 0.25 mg 12/08/20 20:49 12/09/20 08:53 Alprazolam 0.25 Mg Tablet PO 0.25 mg DAILY PRN Administration anxiety Atorvastatin Calcium 80 mg 12/09/20 21:00 Atorvastatin Calcium 80 Mg Tablet PO BEDTIME CHRISTY Duloxetine HCl 30 mg 12/09/20 09:00 12/09/20 08:54 Duloxetine Hcl 30 Mg Capsule.Dr PO 30 mg DAILY CHRISTY Administration Pantoprazole Sodium 80 mg/ 100 mls @ 10 mls/hr 12/08/20 16:00 12/09/20 04:19 Sodium Chloride IV 8 mg/hr .Q10H CHRISTY 10 mls/hr Administration 8 MG/HR Sodium Chloride 1,000 mls @ 60 mls/hr 12/08/20 20:49 12/08/20 21:45 Ns IVCONT 60 mls/hr .[id number] CHRISTY Infusion Insulin Human Lispro 0 unit 12/08/20 21:00 12/09/20 07:49 Insulin Lispro 100 Unit/Ml 3 Ml Vial SUBCUT [facility] Protocol Metoprolol Succinate 150 mg 12/09/20 09:00 12/09/20 08:53 Metoprolol Succinate Er 50 Mg Tab.Er.24h PO 150 mg DAILY CHRISTY Administration Protocol Ondansetron HCl 4 mg 12/08/20 20:49 Ondansetron Hcl 4 Mg/2 Ml Vial IVPUSH Q8H PRN Nausea and Vomiting Pharmacy Consult 1 each 12/08/20 13:43 Consult Rx Perform Med Rec MISCELLANE ONCE PRN Consult order Pramipexole Dihydrochloride 0.25 mg 12/08/20 20:49 12/08/20 21:19 Pramipexole Di-Hcl 0.25 Mg Tablet PO 0.25 mg BID PRN Administration restless leg Sodium Chloride 3 ml 12/09/20 00:00 12/09/20 07:50 0.9 % Sodium Chloride Flush 3 Ml Syringe IVFLUSH Not Given QSHIFT CHRISTY Trazodone HCl 50 mg 12/08/20 21:00 12/08/20 21:19 Trazodone Hcl 50 Mg Tablet PO 50 mg BEDTIME CHRISTY Administration Verapamil HCl 100 mg 12/08/20 21:00 12/08/20 21:19 Verapamil Hcl Sr 100 Mg Cap24h.Pct PO 100 mg BEDTIME CHRISTY Administration Protocol Zolpidem Tartrate 5 mg 12/08/20 21:00 12/08/20 21:45 Zolpidem Tartrate 5 Mg Tablet PO 12/10/20 21:01 Not Given BEDTIME CHRISTY Home Medications Medication Instructions Recorded Confirmed Last Taken Type aspirin 81 mg tablet,delayed 81 mg PO DAILY 10/26/20 12/08/20 12/08/20 History release atorvastatin 80 mg tablet 80 mg PO DAILY 10/26/20 12/08/20 12/08/20 History cholecalciferol (vitamin D3) 50 50 mcg PO DAILY 10/26/20 12/08/20 12/08/20 History mcg (2,000 unit) capsule ferrous fumarate 325 mg (106 mg 325 mg PO DAILY 10/26/20 12/08/20 12/08/20 H istory iron) tablet glipizide 5 mg tablet 5 mg PO BID 10/26/20 12/08/20 12/08/20 History metformin 500 mg tablet 500 mg PO DAILY 10/26/20 12/08/20 12/08/20 History omeprazole 20 mg capsule,delayed 20 mg PO DAILY 10/26/20 12/08/20 12/08/20 History release verapamil 100 mg capsule 24hr 100 mg PO BEDTIME 10/26/20 12/08/20 12/07/[address],ext.release acetaminophen 500 mg tablet 500 mg PO Q6H PRN 11/07/20 12/08/20 12/08/20 History Physical Exam Vital Signs: Vital Signs: Last Vital Signs Temp 98.2 F 12/09/20 01:02 Pulse 94 12/09/20 11:31 Resp 18 12/09/20 11:31 BP 138/90 H 12/09/20 11:31 Pulse Ox 98 12/09/20 11:31 Body Mass Index 40.4 Const: General: no acute distress and ill appearing Nutritional Appearance: average body habitus Orientation/consciousness: patient oriented x3 Limit ations: no limitations HENMT: Head: Yes normal to inspection Ears: hearing grossly normal bilaterally Mouth: Normal oral and palatal mucosa present Eyes: Sclerae: sclerae normal Pupils: Equal, round and reactive pupils present Neck: Neck: Yes normal visual inspection Chest: Chest palpation & inspection: normal inspection of the chest Resp: Effort & Inspection: normal respiratory effort Auscultation: clear to auscultation bilaterally Cardio: Palpation: normal PMI Rate: regular rate Rhythm: regular rhythm Heart sounds: S1 normal heart sound present, S2 normal heart sound present and no murmurs GI: Palpation (GI): Soft to palpation, nontender and No hepatosplenomegaly present Auscultation: normal bowel sounds Rectal Exam - Female: deferred Skin: General skin exam: no rashes or lesions noted Neuro: General: patient oriented x3, gait normal and moves all extremities Cranial nerves: Yes Equal, round and reactive pupils present and Yes Normal hearing present Speech: No Abnormal speech present Psych: Appearance: grossly normal Mental Status: mental status grossly normal Results Labs CBC & Chem 7: 12/09/20 06:27 12/09/20 06:27 Labs: Short CBC 12/09/20 Range/Units 06:27 WBC 7.1 (4.8-10.8) X10*3/uL Hgb 9.9 L D (12.0-16.0) g/dl Hct 30.7 L D (37-47) % Plt Count 280 (160-400) X10*3/uL BMP 12/08/20 12/09/20 14:18 06:27 Sodium 141 139 Potassium 4.2 4.0 Chloride 106 106 Carbon Dioxide 25 22 BUN 20 H 18 H Creatinine 0.79 0.84 Calcium 9.2 9.4 Liver Function 12/09/20 Range/Units 06:27 Total Bilirubin 1.3 H (0.0-1.0) mg/dL Direct Bilirubin 0.5 (0.0-0.5) mg/dL AST 17 (5-31) U/L ALT 12 (0-31) U/L Alkaline Phosphatase 52 (39-117) U/L Albumin 4.4 (3.5-5.0) g/dL Assessment and Plan (1) GIB (gastrointestinal bleeding): Qualifiers: GI bleed type/associated pathology: melena Qualified Code(s): K92.1 - Melena Status: Acute (2) Anemia: Qualifiers: Anemia type: unspecified type Qualified Code(s): D64.9 - Anemia, unspecified Status: Acute (3) Irritable bowel syndrome with both constipation and diarrhea: Status: Acute 75 YF with acute on chronic anemia. She has a long history of IBS with diarrhea and constipation. Labs showed worsening anemia and Vitamin B 12 deficiency. She has black stools ? related to oral iron and peptobismol. Stool occult blood was negatice Appropriate increase in H & H after transfusion of 2 U PRBC 01/2019 EGD showed a small varix which collapsed with insufflation. A colonic AVM was ablated with APC during same day colonoscopy. Pt may have intermittent GI blood loss from small bowel AVMs. RECOMMENDATIONS: 1. Repeat CBC in the am 2. Celiac serologies - added to am labs 2. Repeat stool occult blood x 3. 3. She is scheduled for an EGD on 12/12/20 for further evaluation of anemia - she will need to be bridged with Enoxaprin until EGD is performed. Hold am dose of Enoxaparin on 12/12/20 4. If EGD is negative, pt will be scheduled for a Capsule Endoscopy as an outpatient. Procedures Date of Service Date of Service: 12/09/20
--- NOTE | 2020-12-09 12:14 | P.CNHO_ITS ---
Subjective - Subjective Chief complaint: Blood clots Patient: new to practice Consult date: 12/09/20 Requesting Physician: Dr. Joshua Primary Care Provider: Sary Waite MD HPI - Consult Narrative Reason for consult: Anemia, recent pulmonary embolism Narrative: Brittany Onofre is a 75 year old female who was sent to the emergency department because of severe anemia. She was diagnosed with bilateral pulmonary embolism in October, she was admitted at [facility] for a few days. She says she developed shortness of breath a few days prior to her last admission at [facility]. She did not have any trauma, surgery or immobilization. Apparently they did lower extremity Dopplers which were negative for DVT. They did a CT angio chest which revealed some pulmonary nodules and she was told that she could have underlying malignancy. She has a past smoker, smoked for 30 years but quit almost 30 years ago. She denies any other symptoms such as cough, hemoptysis, loss of appetite or weight loss. She says she has been taking iron for many years because of chronic anemia. She had a previous colonoscopy about 7 or 8 years ago which just revealed some diverticulosis. She takes a baby aspirin daily. Her stools are always black because she takes iron and bismuth. She denies any abdominal discomfort, dyspepsia, reflux symptoms. Review of Systems - Constitutional Denies chills, Denies fever(s), Reports malaise, Denies night sweats, Denies poor appetite, Reports weakness - Cardiovascular Reports no additional cardiovascular complaints - Respiratory Reports no additional respiratory complaints - Gastrointestinal Reports no additional gastrointestinal complaints [facility] Medical History: Medical History (Last Reviewed 12/08/20 @ 18:02 by Marisabel Joshua MD) Bilateral pulmonary embolism CAD (coronary artery disease) COPD (chronic obstructive pulmonary disease) Essential hypertension GERD without esophagitis Irritable bowel syndrome with both constipation and diarrhea Left upper lobe pulmonary nodule Major depression in full remission Mixed dyslipidemia Pulmonary nodules Restless leg syndrome Type 2 diabetes mellitus without complication, without long-term current use of insulin Family History: Family History (Last Reviewed 12/08/20 @ 18:02 by Marisabel Joshua MD) Father HTN (hypertension) Myocardial infarction Hyperlipidemia Abdominal aneurysm Mother HTN (hypertension) Myocardial infarction Hyperlipidemia Brother Alzheimer's disease Sister Rheumatoid arthritis Brother Rheumatoid arthritis Maternal Aunt Diabetes mellitus Lung cancer Maternal Uncle Diabetes mellitus Son No problems noted. Daughter No problems noted. Surgical History: Surgical History (Last Reviewed 12/08/20 @ 18:02 by Marisabel Joshua MD) History of angioplasty History of heart artery stent History of knee replacement History of lymphoma S/P CABG x 2 Social History: Social History (Last Reviewed 12/08/20 @ 18:02 by Marisabel Joshua MD) Alcohol History: Alcohol intake: never Tobacco History: Smoking Status: Former smoker Tobacco Type: Cigarette Smoked in Last 30 Days: No Substance Use History: Use of substances other than those prescribed or required for medical reasons : No Advance Directives: Advance Directives: No Advance Directives Information Provided: No Occupation Assessmet: service: No Current occupational status: retired Smoking status: Former smoker Home Medications and Allergies Current Medications: Current Medications Generic Name Dose Route Start Last Admin Trade Name Freq PRN Reason Stop Dose Admin Acetaminophen 650 mg 12/08/20 20:49 12/09/20 08:54 Acetaminophen 325 Mg Tablet PO 650 mg Q6H PRN Administration Pain, Mild (Pain Scale 1-3) Alprazolam 0.25 mg 12/08/20 20:49 12/09/20 08:53 Alprazolam 0.25 Mg Tablet PO 0.25 mg DAILY PRN Administration anxiety Atorvastatin Calcium 80 mg 12/09/20 21:00 Atorvastatin Calcium 80 Mg Tablet PO BEDTIME [facility] Duloxetine HCl 30 mg 12/09/20 09:00 12/09/20 08:54 Duloxetine Hcl 30 Mg Capsule.Dr PO 30 mg DAILY [facility] Administration Pantoprazole Sodium 80 mg/ 100 mls @ 10 mls/hr 12/08/20 16:00 12/09/20 04:19 Sodium Chloride IV 8 mg/hr .Q10H [facility] 10 mls/hr Administration 8 MG/HR Sodium Chloride 1,000 mls @ 60 mls/hr 12/08/20 20:49 12/08/20 21:45 Ns IVCONT 60 mls/hr .[id number] [facility] Infusion Insulin Human Lispro 0 unit 12/08/20 21:00 12/09/20 07:49 Insulin Lispro 100 Unit/Ml 3 Ml Vial SUBCUT Not Given QIDACHS [facility] Protocol Metoprolol Succinate 150 mg 12/09/20 09:00 12/09/20 08:53 Metoprolol Succinate Er 50 Mg Tab.Er.24h PO 150 mg DAILY [facility] Administration Protocol Ondansetron HCl 4 mg 12/08/20 20:49 Ondansetron Hcl 4 Mg/2 Ml Vial IVPUSH Q8H PRN Nausea and Vomiting Pharmacy Consult 1 each 12/08/20 13:43 Consult Rx Perform Med Rec MISCELLANE ONCE PRN Consult order Pramipexole Dihydrochloride 0.25 mg 12/08/20 20:49 12/08/20 21:19 Pramipexole Di-Hcl 0.25 Mg Tablet PO 0.25 mg BID PRN Administration restless leg Sodium Chloride 3 ml 12/09/20 00:00 12/09/20 07:50 0.9 % Sodium Chloride Flush 3 Ml Syringe IVFLUSH Not Given QSHIFT [facility] Trazodone HCl 50 mg 12/08/20 21:00 12/08/20 21:19 Trazodone Hcl 50 Mg Tablet PO 50 mg BEDTIME [facility] Administration Verapamil HCl 100 mg 12/08/20 21:00 12/08/20 21:19 Verapamil Hcl Sr 100 Mg Cap24h.Pct PO 100 mg BEDTIME [facility] Administration Protocol Zolpidem Tartrate 5 mg 12/08/20 21:00 12/08/20 21:45 Zolpidem Tartrate 5 Mg Tablet PO 12/10/20 21:01 Not Given BEDTIME [facility] Home Medications Medication Instructions Recorded Confirmed Type aspirin 81 mg tablet,delayed 81 mg PO DAILY 10/26/20 12/08/20 History release atorvastatin 80 mg tablet 80 mg PO DAILY 10/26/20 12/08/20 History cholecalciferol (vitamin D3) 50 50 mcg PO DAILY 10/26/20 12/08/20 History mcg (2,000 unit) capsule ferrous fumarate 325 mg (106 mg 325 mg PO DAILY 10/26/20 12/08/20 History iron) tablet glipizide 5 mg tablet 5 mg PO BID 10/26/20 12/08/20 History metformin 500 mg tablet 500 mg PO DAILY 10/26/20 12/08/20 History omeprazole 20 mg capsule,delayed 20 mg PO DAILY 10/26/20 12/08/20 History release verapamil 100 mg capsule 24hr 100 mg PO BEDTIME 10/26/20 12/08/[address],ext.release acetaminophen 500 mg tablet 500 mg PO Q6H PRN 11/07/20 12/08/20 History Allergies Allergy/AdvReac Type Severity Reaction Status Date / Time Sulfa (Sulfonamide Allergy Severe Rash Verified 11/07/20 19:08 Antibiotics) adhesive tape [ADHESIVE TAPE] Allergy Intermediate BLISTERS Verified 11/07/20 19:08 sulfamethoxazole Allergy Intermediate RASH Verified 11/07/20 19:08 [From BACTRIM] trimethoprim [From BACTRIM] Allergy Intermediate RASH Verified 11/07/20 19:08 gabapentin AdvReac Severe hallucinati Verified 11/07/20 19:08 on morphine AdvReac Severe hallucinati Verified 11/07/20 19:08 on Physical Exam Vital signs: Vital Signs Temp 98.2 F 12/09/20 01:02 Pulse 94 12/09/20 11:31 Resp 18 12/09/20 11:31 BP 138/90 H 12/09/20 11:31 Pulse Ox 98 12/09/20 11:31 Intake & Output 12/08/20 12/09/20 12/09/20 18:59 06:59 18:59 Intake Total 0 / 4232.295 7960.833 / 1000.833 Balance 0 / 6332.960 2351.833 / 1000.833 Intake: Intake (Blood Product) Amount 0 / 700 700 / 700 Red Blood Cells (E0382) Unit 0 / 350 350 / 350 [id number] Red Blood Cells (E0382) Unit 350 / 350 [id number] Intake, Other Amount 200 / 200 Red Blood Cells (E0382) Unit 200 / 200 [id number] Intake, IV Amount 100.833 / 100.833 Pantoprazole Sodium 80 mg In 0. 99.833 / 99.833 9 % Sodium Chloride 80 ml @ 8 MG/HR 10 mls/hr IV .Q10H [facility] Rx #:[id number] 0.9 % Sodium Chloride 1,000 ml 1 / 1 @ 60 mls/hr IVCONT .[id number] [facility] Rx#:[id number] Other: Number of Unmeasured Voids 2 Weight 97.069 kg Weight 97.069 kg - Constitutional Present: no acute distress - Routine HEENT Exam Head: Present: normal inspection Eye: Present: EOMI, conjunctivae pale - Routine Neck Exam Present: supple. Absent: lymphadenopathy - Routine Respiratory Exam Present: CTAB - Routine Cardiovascular Exam Cardiovascular: Present: S1, S2 - Routine Abdominal Exam Present: soft. Absent: mass - Routine Rectal Exam Visual: Present: black stool Hem/Onc Consult Result - Labs CBC & Chem 7: 12/09/20 06:27 12/09/20 06:27 Labs: Short CBC 12/09/20 Range/Units 06:27 WBC 7.1 (4.8-10.8) X10*3/uL Hgb 9.9 L D (12.0-16.0) g/dl Hct 30.7 L D (37-47) % Plt Count 280 (160-400) X10*3/uL BMP 12/08/20 12/09/20 14:18 06:27 Sodium 141 139 Potassium 4.2 4.0 Chloride 106 106 Carbon Dioxide 25 22 BUN 20 H 18 H Creatinine 0.79 0.84 Calcium 9.2 9.4 Liver Function 12/09/20 Range/Units 06:27 Total Bilirubin 1.3 H (0.0-1.0) mg/dL Direct Bilirubin 0.5 (0.0-0.5) mg/dL AST 17 (5-31) U/L ALT 12 (0-31) U/L Alkaline Phosphatase 52 (39-117) U/L Albumin 4.4 (3.5-5.0) g/dL Assessment and Plan (1) Anemia Status: Acute Qualifiers: Anemia type: unspecified type Qualified Code(s): D64.9 - Anemia, unspecified 1. This is a 75-year-old woman who was diagnosed with spontaneous bilateral pulmonary embolism in October 2020. She was started on Eliquis, she presents a month later with severe anemia requiring blood transfusion. She was on Eliquis as well as baby aspirin for her coronary artery disease. Her elevated iron studies today could be a result of her being on oral iron supplementation. Agree with GI evaluation, she probably has GI bleeding which caused acute blood loss anemia. Her hemoglobin was around 12 gram/dL last year. Obtain records from [facility] including imaging studies as there is history of lung nodules. She underwent a CT abdomen/pelvis in November of 2020 at [facility] which does not reveal any abnormalities in the base of lungs. She has seen performance improvement coordinator, Dr. Gonzalez for these lung nodules. I would get his recommendation as well. I agree with holding anticoagulation till the cause of her anemia can be determined. She also has vitamin B12 deficiency. I recommend starting her on parenteral B12 therapy. Since she will need eventual anticoagulation for her pulmonary embolism, aspirin may have to be stopped because of increased risk of bleeding. I thank you for this consultation.
--- NOTE | 2020-12-09 12:39 | HO.PM.IMPN ---
Subjective Subjective Date of Service: 12/09/20 Interval History: the patient was seen and evaluated this morning Laying in bed, feels comfortable overall, no bleeding noticed overnight Hemoglobin improved after 2 units transfusion Denies any fever, chills or shortness of breath No reported other overnight events. Systemic review: No fever, chills or weakness No chest pain, palpitation No shortness of breath or coughing No abdominal pain, nausea or vomiting No urinary symptoms No any rash or wounds Physical Exam Vital Signs: Vital Signs: Last Vital Signs Temp 98.2 F 12/09/20 01:02 Pulse 94 12/09/20 11:31 Resp 18 12/09/20 11:31 BP 138/90 H 12/09/20 11:31 Pulse Ox 98 12/09/20 11:31 Body Mass Index 40.4 Const: Other: Constitutional : Alert, oriented, not in distress Neck : Normal inspection, Supple Cardiovascular : RRR, S1 S2, no lower extremity edema Respiratory : Good bilateral air entry, no crackles, wheezes or rhonchi Gastrointestinal: soft, lax, Normal bowel sounds, Non tender Skin : Warm/Dry, No rash Neurological : Alert & oriented x3, No focal deficit Objective Data Current Medications Generic Name Dose Route Start Last Admin Trade Name Freq PRN Reason Stop Dose Admin Acetaminophen 650 mg 12/08/20 20:49 12/09/20 08:54 Acetaminophen 325 Mg Tablet PO 650 mg Q6H PRN Administration Pain, Mild (Pain Scale 1-3) Alprazolam 0.25 mg 12/08/20 20:49 12/09/20 08:53 Alprazolam 0.25 Mg Tablet PO 0.25 mg DAILY PRN Administration anxiety Atorvastatin Calcium 80 mg 12/09/20 21:00 Atorvastatin Calcium 80 Mg Tablet PO BEDTIME [facility] Duloxetine HCl 30 mg 12/09/20 09:00 12/09/20 08:54 Duloxetine Hcl 30 Mg Capsule.Dr PO 30 mg DAILY [facility] Administration Pantoprazole Sodium 80 mg/ 100 mls @ 10 mls/hr 12/08/20 16:00 12/09/20 04:19 Sodium Chloride IV 8 mg/hr .Q10H [facility] 10 mls/hr Administration 8 MG/HR Sodium Chloride 1,000 mls @ 60 mls/hr 12/08/20 20:49 12/08/20 21:45 Ns IVCONT 60 mls/hr .[id number] [facility] Infusion Insulin Human Lispro 0 unit 12/08/20 21:00 12/09/20 07:49 Insulin Lispro 100 Unit/Ml 3 Ml Vial SUBCUT Not Given QIDACHS [facility] Protocol Metoprolol Succinate 150 mg 12/09/20 09:00 12/09/20 08:53 Metoprolol Succinate Er 50 Mg Tab.Er.24h PO 150 mg DAILY [facility] Administration Protocol Ondansetron HCl 4 mg 12/08/20 20:49 Ondansetron Hcl 4 Mg/2 Ml Vial IVPUSH Q8H PRN Nausea and Vomiting Pharmacy Consult 1 each 12/08/20 13:43 Consult Rx Perform Med Rec MISCELLANE ONCE PRN Consult order Pramipexole Dihydrochloride 0.25 mg 12/08/20 20:49 12/08/20 21:19 Pramipexole Di-Hcl 0.25 Mg Tablet PO 0.25 mg BID PRN Administration restless leg Sodium Chloride 3 ml 12/09/20 00:00 12/09/20 07:50 0.9 % Sodium Chloride Flush 3 Ml Syringe IVFLUSH Not Given QSHIFT [facility] Trazodone HCl 50 mg 12/08/20 21:00 12/08/20 21:19 Trazodone Hcl 50 Mg Tablet PO 50 mg BEDTIME [facility] Administration Verapamil HCl 100 mg 12/08/20 21:00 12/08/20 21:19 Verapamil Hcl Sr 100 Mg Cap24h.Pct PO 100 mg BEDTIME [facility] Administration Protocol Zolpidem Tartrate 5 mg 12/08/20 21:00 12/08/20 21:45 Zolpidem Tartrate 5 Mg Tablet PO 12/10/20 21:01 Not Given BEDTIME [facility] Labs CBC & Chem 7: 12/09/20 06:27 12/09/20 06:27 Assessment and Plan (1) Symptomatic anemia: Status: Acute (2) Acute blood loss anemia: Status: Acute (3) GIB (gastrointestinal bleeding): Status: Acute (4) Pulmonary nodules: Status: Acute (5) Bilateral pulmonary embolism: Status: Acute Assessment and Plan: A 75 years old lady with PMH of CAD, COPD, lung nodules, recent PE on Eliquis who presents to the hospital with a complaint of increased lethargy and weakness. blood loss anemia Symptomatic anemia Likely a result of GI bleed which is more of chronic than acute Hb of 9.9 post 2 units transfusion Monitor H&H Discontinue pantoprazole drip, changed to IV b.i.d. Hold Eliquis for now Discontinue IV fluid Start diet, possible EGD over the weekend Pending GI evaluation Recent PE On anticoagulation therapy The patient developed PE on 11/05/2020 Underlying malignancy given pulmonary nodules, expected anticoagulation for life Hematology input appreciated, will need eventual anticoagulation, consider DC aspirin Pulmonary nodules Noticed on CT scan from before to get pulmonary evaluation for possible biopsy B12 deficiency to give parenteral supplement History CAD, HTN Continue atorvastatin, lisinopril, metoprolol and verapamil Diabetes type 2 Hold p.o. medications SSI next [place]yme diabetic diet DVT PPX SCDs
[2020-12-09 13:46] LABS: Glucose, Whole Blood 170 mg/dL (60-115)
[2020-12-09] MEDS: Cyanocobalamin (Vitamin B-12) 1,000 MCG TABLET 1000 MCG PO (13:55)
[2020-12-09] MEDS: 0.9 % Sodium Chloride Flush 3 ML SYRINGE IVFLUSH ×2 (16:33→21:34)
[2020-12-09 17:19] LABS: Glucose, Whole Blood 129 mg/dL (60-115)
[2020-12-09 20:27] LABS: Glucose, Whole Blood 162 mg/dL (60-115)
[2020-12-09] MEDS: Atorvastatin Calcium 80 MG TABLET PO (21:30)
[2020-12-09] MEDS: traZODone HCL 50 MG TABLET PO (21:31)
[2020-12-09 21:32] LABS: OBS1 POS (NEG)
[2020-12-09] MEDS: Zolpidem Tartrate 5 MG TABLET PO (21:32)
[2020-12-09] MEDS: Insulin Lispro 100 UNIT/ML 3 ML VIAL SUBCUT (21:33)
[2020-12-09 21:34] LABS: OBS Int Ctl Valid YES
--- NOTE | 2020-12-09 22:39 | PC.NURSE ---
made aware stool came back positive for occult blood
[2020-12-10] VITALS (7 sets, daily range): BP systolic 119–149; BP diastolic 63–74; PULSE 78–95; RESP 14–18; TEMP 36.2–37.1; O2SAT 96–97
[2020-12-10] MEDS: Pantoprazole Sodium 40 MG/10 ML VIAL IVPUSH ×2 (06:10→17:01)
[2020-12-10 07:52] LABS: Hematocrit 31.8 % (37-47); Hemoglobin 9.8 g/dl (12.0-16.0); Mean Corpuscular HGB Conc 30.8 g/dl (31.0-35.0); Mean Corpuscular Volume 100.6 fL (80-98); Mean Platelet Volume 9.6 fL (9.4-12.3); Platelet Count 290 X10*3/uL (160-400); Red Blood Count 3.16 X10*6/uL (4.20-5.50); White Blood Count 6.2 X10*3/uL (4.8-10.8)
[2020-12-10 07:55] LABS: Glucose, Whole Blood 160 mg/dL (60-115)
[2020-12-10 08:25] LABS: Anion Gap 16 (12-20); Blood Urea Nitrogen 19 mg/dL (9-16); Calcium 9.5 mg/dL (8.4-10.2); Carbon Dioxide 24 mmol/L (22-29); Chloride 104 mmol/L (96-108); Creatinine Clr Calc Pharmacy 64.3; Estimated Glomerular Filt Rate > 60; Glucose Random 154 mg/dL (60-115); Potassium 4.3 mmol/L (3.3-5.1); Sodium 140 mmol/L (135-145)
[2020-12-10] MEDS: Metoprolol Succinate ER 50 MG TAB.ER.24H 150 MG PO (08:28)
[2020-12-10] MEDS: DULoxetine HCl 30 MG CAPSULE.DR PO (08:28)
[2020-12-10] MEDS: Cyanocobalamin (Vitamin B-12) 1,000 MCG TABLET 1000 MCG PO (08:28)
[2020-12-10] MEDS: Heparin Sodium,Porcine 5,000 UNIT/ML VIAL 5000 UNIT SUBCUT ×2 (08:29→17:02)
[2020-12-10] MEDS: Insulin Lispro 100 UNIT/ML 3 ML VIAL SUBCUT ×2 (08:29→20:56)
[2020-12-10] MEDS: 0.9 % Sodium Chloride Flush 3 ML SYRINGE IVFLUSH ×3 (08:29→20:58)
--- NOTE | 2020-12-10 11:00 | P.PNIM_ITS ---
Subjective Subjective Date of Service: 12/10/20 Interval History: the patient was seen and evaluated this morning Laying in bed, feels comfortable No reported bleeding from anywhere Denies any fever, chills or shortness of breath No reported other overnight events. Systemic review: No fever, chills but feels general weakness No chest pain, palpitation No shortness of breath or coughing No abdominal pain, nausea or vomiting No urinary symptoms No any rash or wounds Physical Exam Vital Signs: Vital Signs: Last Vital Signs Temp 98.7 F 12/10/20 08:00 Pulse 86 12/10/20 08:00 Resp 17 12/10/20 08:00 BP 138/74 12/10/20 08:00 Pulse Ox 97 12/10/20 08:00 Body Mass Index 40.4 Const: Other: Constitutional : Alert, oriented, not in distress Neck : Normal inspection, Supple Cardiovascular : RRR, S1 S2, no lower extremity edema Respiratory : Good bilateral air entry, no crackles, wheezes or rhonchi Gastrointestinal: soft, lax, Normal bowel sounds, Non tender Skin : Warm/Dry, No rash Neurological : Alert & oriented x3, No focal deficit Objective Data Current Medications Generic Name Dose Route Start Last Admin Trade Name Freq PRN Reason Stop Dose Admin Acetaminophen 650 mg 12/08/20 20:49 12/09/20 08:54 Acetaminophen 325 Mg Tablet PO 650 mg Q6H PRN Administration Pain, Mild (Pain Scale 1-3) Alprazolam 0.25 mg 12/08/20 20:49 12/09/20 08:53 Alprazolam 0.25 Mg Tablet PO 0.25 mg DAILY PRN Administration anxiety Atorvastatin Calcium 80 mg 12/09/20 21:00 12/09/20 21:30 Atorvastatin Calcium 80 Mg Tablet PO 80 mg BEDTIME [facility] Administration Cyanocobalamin 1,000 mcg 12/10/20 09:00 12/10/20 08:28 Cyanocobalamin (Vitamin B-12) 1,000 Mcg Tablet PO 1,000 mcg DAILY [facility] Administration Duloxetine HCl 30 mg 12/09/20 09:00 12/10/20 08:28 Duloxetine Hcl 30 Mg Capsule.Dr PO 30 mg DAILY [facility] Administration Heparin Sodium (Porcine) 5,000 unit 12/10/20 09:00 12/10/20 08:29 Heparin Sodium,Porcine 5,000 Unit/Ml Vial SUBCUT 5,000 unit Q8H [facility] Administration Insulin Human Lispro 0 unit 12/08/20 21:00 12/10/20 08:29 Insulin Lispro 100 Unit/Ml 3 Ml Vial SUBCUT 2 unit QIDACHS [facility] Administration Protocol Metoprolol Succinate 150 mg 12/09/20 09:00 12/10/20 08:28 Metoprolol Succinate Er 50 Mg Tab.Er.24h PO 150 mg DAILY [facility] Administration Protocol Ondansetron HCl 4 mg 12/08/20 20:49 Ondansetron Hcl 4 Mg/2 Ml Vial IVPUSH Q8H PRN Nausea and Vomiting Pantoprazole Sodium 40 mg 12/09/20 16:30 12/10/20 06:10 Pantoprazole Sodium 40 Mg/10 Ml Vial IVPUSH 40 mg BID@0630,2600 [facility] Administration Pharmacy Consult 1 each 12/08/20 13:43 Consult Rx Perform Med Rec MISCELLANE ONCE PRN Consult order Pramipexole Dihydrochloride 0.25 mg 12/08/20 20:49 12/08/20 21:19 Pramipexole Di-Hcl 0.25 Mg Tablet PO 0.25 mg BID PRN Administration restless leg Sodium Chloride 3 ml 12/09/20 00:00 12/10/20 08:29 0.9 % Sodium Chloride Flush 3 Ml Syringe IVFLUSH 3 ml QSHIFT [facility] Administration Trazodone HCl 50 mg 12/08/20 21:00 12/09/20 21:31 Trazodone Hcl 50 Mg Tablet PO 50 mg BEDTIME [facility] Administration Verapamil HCl 100 mg 12/08/20 21:00 12/09/20 21:30 Verapamil Hcl Sr 100 Mg Cap24h.Pct PO 100 mg BEDTIME [facility] Administration Protocol Zolpidem Tartrate 5 mg 12/08/20 21:00 12/09/20 21:32 Zolpidem Tartrate 5 Mg Tablet PO 12/10/20 21:01 5 mg BEDTIME [facility] Administration Labs CBC & Chem 7: 12/10/20 07:23 12/10/20 07:23 Assessment and Plan (1) Symptomatic anemia: Status: Acute (2) Acute blood loss anemia: Status: Acute (3) GIB (gastrointestinal bleeding): Status: Acute (4) Pulmonary nodules: Status: Acute (5) Bilateral pulmonary embolism: Status: Acute Assessment and Plan: A 75 years old lady with PMH of CAD, COPD, lung nodules, recent PE on Eliquis who presents to the hospital with a complaint of increased lethargy and weakness. blood loss anemia Symptomatic anemia Likely a result of GI bleed which is more of chronic than acute Positive occult blood Hb of 9.9 post 2 units transfusion Monitor H&H Continue pantoprazole IV b.i.d. Hold Eliquis for now Discontinue IV fluid Start diet, EGD Saturday GI input appreciated, for EGD Saturday afternoon Recent PE On anticoagulation therapy The patient developed PE on 11/05/2020 Underlying malignancy given pulmonary nodules, expected anticoagulation for life Hematology input appreciated, will need eventual anticoagulation, consider DC aspirin Pulmonary nodules Noticed on CT scan from before to get pulmonary evaluation for possible biopsy B12 deficiency to give parenteral supplement History CAD, HTN Continue atorvastatin, lisinopril, metoprolol and verapamil Diabetes type 2 Hold p.o. medications SSI next [place] diabetic diet DVT PPX SC heparin, SCDs
[2020-12-10 12:07] LABS: Glucose, Whole Blood 141 mg/dL (60-115)
[2020-12-10] MEDS: Acetaminophen 325 MG TABLET 650 MG PO (14:10)
[2020-12-10] MEDS: ALPRAZolam 0.25 MG TABLET PO (16:02)
[2020-12-10 16:19] LABS: Glucose, Whole Blood 150 mg/dL (60-115)
[2020-12-10 20:25] LABS: Glucose, Whole Blood 163 mg/dL (60-115)
[2020-12-10] MEDS: Atorvastatin Calcium 80 MG TABLET PO (20:56)
[2020-12-10] MEDS: Zolpidem Tartrate 5 MG TABLET PO (20:56)
[2020-12-10] MEDS: traZODone HCL 50 MG TABLET PO (20:56)
[2020-12-11] VITALS (7 sets, daily range): BP systolic 120–140; BP diastolic 63–81; PULSE 65–96; RESP 15–18; TEMP 36.2–36.9; O2SAT 94–96
[2020-12-11] MEDS: Heparin Sodium,Porcine 5,000 UNIT/ML VIAL 5000 UNIT SUBCUT ×3 (01:14→15:51)
[2020-12-11 05:53] LABS: Hematocrit 30.1 % (37-47); Hemoglobin 9.5 g/dl (12.0-16.0); Mean Corpuscular HGB Conc 31.6 g/dl (31.0-35.0); Mean Corpuscular Hemoglobin 31.8 pg (27.0-33.0); Mean Corpuscular Volume 100.7 fL (80-98); Mean Platelet Volume 9.7 fL (9.4-12.3); Platelet Count 264 X10*3/uL (160-400); Red Blood Count 2.99 X10*6/uL (4.20-5.50); Red Cell Distribution Width 17.4 % (11.0-16.0); White Blood Count 5.8 X10*3/uL (4.8-10.8)
[2020-12-11] MEDS: Pantoprazole Sodium 40 MG/10 ML VIAL IVPUSH ×2 (06:04→15:51)
[2020-12-11 08:06] LABS: Glucose, Whole Blood 156 mg/dL (60-115)
[2020-12-11] MEDS: 0.9 % Sodium Chloride Flush 3 ML SYRINGE IVFLUSH ×3 (08:12→21:29)
[2020-12-11] MEDS: Cyanocobalamin (Vitamin B-12) 1,000 MCG TABLET 1000 MCG PO (08:12)
[2020-12-11] MEDS: Metoprolol Succinate ER 50 MG TAB.ER.24H 150 MG PO (08:12)
[2020-12-11] MEDS: DULoxetine HCl 30 MG CAPSULE.DR PO (08:12)
[2020-12-11] MEDS: Insulin Lispro 100 UNIT/ML 3 ML VIAL SUBCUT (08:12)
--- NOTE | 2020-12-11 10:19 | HO.PM.IMPN ---
Subjective Subjective Date of Service: 12/11/20 Interval History: the patient was seen and evaluated this morning Laying in bed, feels comfortable No reported bleeding from anywhere Denies any fever, chills or shortness of breath No reported other overnight events. Systemic review: No fever, chills but feels general weakness No chest pain, palpitation No shortness of breath or coughing No abdominal pain, nausea or vomiting No urinary symptoms No any rash or wounds Physical Exam Vital Signs: Vital Signs: Last Vital Signs Temp 98 F 12/11/20 08:00 Pulse 89 12/11/20 08:00 Resp 16 12/11/20 08:00 BP 140/70 H 12/11/20 08:00 Pulse Ox 96 12/11/20 08:00 Body Mass Index 40.4 Const: Other: Constitutional : Alert, oriented, not in distress Neck : Normal inspection, Supple Cardiovascular : RRR, S1 S2, no lower extremity edema Respiratory : Good bilateral air entry, no crackles, wheezes or rhonchi Gastrointestinal: soft, lax, Normal bowel sounds, Non tender Skin : Warm/Dry, No rash Neurological : Alert & oriented x3, No focal deficit Objective Data Current Medications Generic Name Dose Route Start Last Admin Trade Name Freq PRN Reason Stop Dose Admin Acetaminophen 650 mg 12/08/20 20:49 12/10/20 14:10 Acetaminophen 325 Mg Tablet PO 650 mg Q6H PRN Administration Pain, Mild (Pain Scale 1-3) Alprazolam 0.25 mg 12/08/20 20:49 12/10/20 16:02 Alprazolam 0.25 Mg Tablet PO 0.25 mg DAILY PRN Administration anxiety Atorvastatin Calcium 80 mg 12/09/20 21:00 12/10/20 20:56 Atorvastatin Calcium 80 Mg Tablet PO 80 mg BEDTIME CHRISTY Administration Cyanocobalamin 1,000 mcg 12/10/20 09:00 12/11/20 08:12 Cyanocobalamin (Vitamin B-12) 1,000 Mcg Tablet PO 1,000 mcg DAILY CHRISTY Administration Duloxetine HCl 30 mg 12/09/20 09:00 12/11/20 08:12 Duloxetine Hcl 30 Mg Capsule.Dr PO 30 mg DAILY CHRISTY Administration Heparin Sodium (Porcine) 5,000 unit 12/10/20 09:00 12/11/20 08:11 Heparin Sodium,Porcine 5,000 Unit/Ml Vial SUBCUT 5,000 unit Q8H CHRISTY Administration Insulin Human Lispro 0 unit 12/08/20 21:00 12/11/20 08:12 Insulin Lispro 100 Unit/Ml 3 Ml Vial SUBCUT 2 unit QIDACHS CHRISTY Administration Protocol Metoprolol Succinate 150 mg 12/09/20 09:00 12/11/20 08:12 Metoprolol Succinate Er 50 Mg Tab.Er.24h PO 150 mg DAILY CHRISTY Administration Protocol Ondansetron HCl 4 mg 12/08/20 20:49 Ondansetron Hcl 4 Mg/2 Ml Vial IVPUSH Q8H PRN Nausea and Vomiting Pantoprazole Sodium 40 mg 12/09/20 16:30 12/11/20 06:04 Pantoprazole Sodium 40 Mg/10 Ml Vial IVPUSH 40 mg BID@[id number] [facility] Administration Pharmacy Consult 1 each 12/08/20 13:43 Consult Rx Perform Med Rec MISCELLANE ONCE PRN Consult order Pramipexole Dihydrochloride 0.25 mg 12/08/20 20:49 12/08/20 21:19 Pramipexole Di-Hcl 0.25 Mg Tablet PO 0.25 mg BID PRN Administration restless leg Sodium Chloride 3 ml 12/09/20 00:00 12/11/20 08:12 0.9 % Sodium Chloride Flush 3 Ml Syringe IVFLUSH 3 ml QSHIFT CHRISTY Administration Trazodone HCl 50 mg 12/08/20 21:00 12/10/20 20:56 Trazodone Hcl 50 Mg Tablet PO 50 mg BEDTIME CHRISTY Administration Verapamil HCl 100 mg 12/08/20 21:00 12/10/20 20:54 Verapamil Hcl Sr 100 Mg Cap24h.Pct PO 100 mg BEDTIME CHRISTY Administration Protocol Labs CBC & Chem 7: 12/11/20 05:21 12/10/20 07:23 Assessment and Plan (1) Symptomatic anemia: Status: Acute (2) Acute blood loss anemia: Status: Acute (3) GIB (gastrointestinal bleeding): Status: Acute (4) Pulmonary nodules: Status: Acute (5) Bilateral pulmonary embolism: Status: Acute Assessment and Plan: A 75 years old lady with PMH of CAD, COPD, lung nodules, recent PE on Eliquis who presents to the hospital with a complaint of increased lethargy and weakness. blood loss anemia Symptomatic anemia Likely a result of GI bleed which is more of chronic than acute Positive occult blood Hb of 9.9 post 2 units transfusion Monitor H&H Continue pantoprazole IV b.i.d. Hold Eliquis for now Discontinue IV fluid NPO after midnight GI input appreciated, for EGD Saturday afternoon Recent PE On anticoagulation therapy The patient developed PE on 11/05/2020 Underlying malignancy given pulmonary nodules, expected anticoagulation for life Hematology input appreciated, hold AC until bleeding source resolved. will need eventual anticoagulation, consider DC aspirin Kept on Heparin DVT ppx dose Pulmonary nodules Noticed on CT scan from before discussed with dr Bravo, Pulm. recommended repeating CT in 6 months B12 deficiency to give parenteral supplement History CAD, HTN Continue atorvastatin, lisinopril, metoprolol and verapamil Diabetes type 2 Hold p.o. medications SSI next Lyme diabetic diet DVT PPX SC heparin, SCDs
[2020-12-11 12:11] LABS: Glucose, Whole Blood 145 mg/dL (60-115)
[2020-12-11] MEDS: ALPRAZolam 0.25 MG TABLET PO (14:54)
[2020-12-11 16:38] LABS: Glucose, Whole Blood 144 mg/dL (60-115)
[2020-12-11 20:30] LABS: Glucose, Whole Blood 136 mg/dL (60-115)
[2020-12-11] MEDS: diphenhydrAMINE HCL 50 MG/ML VIAL 25 MG IVPUSH (21:28)
[2020-12-11] MEDS: Atorvastatin Calcium 80 MG TABLET PO (21:29)
[2020-12-11] MEDS: traZODone HCL 50 MG TABLET PO (21:29)
[2020-12-12] VITALS (8 sets, daily range): BP systolic 122–155; BP diastolic 50–77; PULSE 85–101; RESP 16–20; TEMP 36.1–36.4; O2SAT 92–97; BMI 40.4
[2020-12-12] MEDS: Acetaminophen 325 MG TABLET 650 MG PO ×3 (03:14→15:34)
[2020-12-12] MEDS: ALPRAZolam 0.25 MG TABLET PO (05:35)
[2020-12-12] MEDS: Pramipexole Di-HCL 0.25 MG TABLET PO ×2 (05:35→15:35)
[2020-12-12] MEDS: Pantoprazole Sodium 40 MG/10 ML VIAL IVPUSH (05:36)
[2020-12-12 07:48] LABS: Glucose, Whole Blood 165 mg/dL (60-115)
[2020-12-12] MEDS: Heparin Sodium,Porcine 5,000 UNIT/ML VIAL 5000 UNIT SUBCUT (08:21)
[2020-12-12] MEDS: 0.9 % Sodium Chloride Flush 3 ML SYRINGE IVFLUSH ×2 (08:22→15:39)
[2020-12-12] MEDS: DULoxetine HCl 30 MG CAPSULE.DR PO (08:22)
[2020-12-12] MEDS: Metoprolol Succinate ER 50 MG TAB.ER.24H 150 MG PO (08:24)
[2020-12-12] MEDS: Cyanocobalamin (Vitamin B-12) 1,000 MCG TABLET 1000 MCG PO (08:26)
--- NOTE | 2020-12-12 08:46 | P.PNIM_ITS ---
Subjective Subjective Date of Service: 12/12/20 Interval History: The patient was seen and evaluated this morning Laying in bed, feels comfortable but reporting hallucinaions overnight No reported bleeding from anywhere Denies any fever, chills or shortness of breath No reported other overnight events. Systemic review: No fever, chills but feels general weakness No chest pain, palpitation No shortness of breath or coughing No abdominal pain, nausea or vomiting No urinary symptoms No any rash or wounds Physical Exam Vital Signs: Vital Signs: Last Vital Signs Temp 97.6 F 12/12/20 07:21 Pulse 101 H 12/12/20 08:24 Resp 18 12/12/20 07:21 BP 155/60 H 12/12/20 08:24 Pulse Ox 97 12/12/20 07:21 Body Mass Index 40.4 Const: Other: Constitutional : Alert, oriented, not in distress Neck : Normal inspection, Supple Cardiovascular : RRR, S1 S2, no lower extremity edema Respiratory : Good bilateral air entry, no crackles, wheezes or rhonchi Gastrointestinal: soft, lax, Normal bowel sounds, Non tender Skin : Warm/Dry, No rash Neurological : Alert & oriented x3, No focal deficit Objective Data Current Medications Generic Name Dose Route Start Last Admin Trade Name Freq PRN Reason Stop Dose Admin Acetaminophen 650 mg 12/08/20 20:49 12/12/20 08:33 Acetaminophen 325 Mg Tablet PO 650 mg Q6H PRN Administration Pain, Mild (Pain Scale 1-3) Alprazolam 0.25 mg 12/08/20 20:49 12/12/20 05:35 Alprazolam 0.25 Mg Tablet PO 0.25 mg DAILY PRN Administration anxiety Atorvastatin Calcium 80 mg 12/09/20 21:00 12/11/20 21:29 Atorvastatin Calcium 80 Mg Tablet PO 80 mg BEDTIME CHRISTY Administration Cyanocobalamin 1,000 mcg 12/10/20 09:00 12/12/20 08:26 Cyanocobalamin (Vitamin B-12) 1,000 Mcg Tablet PO 1,000 mcg DAILY CHRISTY Administration Duloxetine HCl 30 mg 12/09/20 09:00 12/12/20 08:22 Duloxetine Hcl 30 Mg Capsule.Dr PO 30 mg DAILY CHRISTY Administration Heparin Sodium (Porcine) 5,000 unit 12/10/20 09:00 03/01/21 08:21 Heparin Sodium,Porcine 5,000 Unit/Ml Vial SUBCUT 5,000 unit Q8H CHRISTY Administration Insulin Human Lispro 0 unit 12/08/20 21:00 12/12/20 08:16 Insulin Lispro 100 Unit/Ml 3 Ml Vial SUBCUT Not Given QIDACHS [facility] Protocol Metoprolol Succinate 150 mg 12/09/20 09:00 12/12/20 08:24 Metoprolol Succinate Er 50 Mg Tab.Er.24h PO 150 mg DAILY [facility] Administration Protocol Ondansetron HCl 4 mg 12/08/20 20:49 Ondansetron Hcl 4 Mg/2 Ml Vial IVPUSH Q8H PRN Nausea and Vomiting Pantoprazole Sodium 40 mg 12/09/20 16:30 12/12/20 05:36 Pantoprazole Sodium 40 Mg/10 Ml Vial IVPUSH 40 mg BID@0630,0120 [facility] Administration Pharmacy Consult 1 each 12/08/20 13:43 Consult Rx Perform Med Rec MISCELLANE ONCE PRN Consult order Pramipexole Dihydrochloride 0.25 mg 12/08/20 20:49 12/12/20 05:35 Pramipexole Di-Hcl 0.25 Mg Tablet PO 0.25 mg BID PRN Administration restless leg Sodium Chloride 3 ml 12/09/20 00:00 12/12/20 08:22 0.9 % Sodium Chloride Flush 3 Ml Syringe IVFLUSH 3 ml QSHIFT [facility] Administration Trazodone HCl 50 mg 12/08/20 21:00 12/11/20 21:29 Trazodone Hcl 50 Mg Tablet PO 50 mg BEDTIME CHRISTY Administration Verapamil HCl 100 mg 12/08/20 21:00 12/11/20 21:29 Verapamil Hcl Sr 100 Mg Cap24h.Pct PO 100 mg BEDTIME [facility] Administration Protocol Labs CBC & Chem 7: 12/11/20 05:21 12/10/20 07:23 Assessment and Plan (1) Symptomatic anemia: Status: Acute (2) Acute blood loss anemia: Status: Acute (3) GIB (gastrointestinal bleeding): Status: Acute (4) Pulmonary nodules: Status: Acute (5) Bilateral pulmonary embolism: Status: Acute Assessment and Plan: A 75 years old lady with PMH of CAD, COPD, lung nodules, recent PE on Eliquis who presents to the hospital with a complaint of increased lethargy and weakness. blood loss anemia Symptomatic anemia Likely a result of GI bleed which is more of chronic than acute Positive occult blood Hb of 9.5 post 2 units transfusion Monitor H&H Continue pantoprazole IV b.i.d. Hold Eliquis for now Discontinue IV fluid NPO for EGD today GI input appreciated, for EGD Recent PE On anticoagulation therapy The patient developed PE on 11/05/2020 Underlying malignancy given pulmonary nodules, expected anticoagulation for life Hematology input appreciated, hold AC until bleeding source resolved. will need eventual anticoagulation, consider DC aspirin Kept on Heparin DVT ppx dose, to resume Eliquis at discharge if stable findings Pulmonary nodules Noticed on CT scan from before discussed with dr Bravo, Pulm. recommended repeating CT in 6 months B12 deficiency to give parenteral supplement History CAD, HTN Continue atorvastatin, lisinopril, metoprolol and verapamil Diabetes type 2 Hold p.o. medications SSI next Lyme diabetic diet DVT PPX SC heparin, SCDs Plan to DC later today depending on EGD findings.
--- NOTE | 2020-12-12 08:52 | P.DS_ITS ---
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 DS: Diagnosis Discharge Diagnosis (1) Symptomatic anemia: Status: Acute (2) Acute blood loss anemia: Status: Acute (3) GIB (gastrointestinal bleeding): Status: Acute (4) Pulmonary nodules: Status: Acute (5) Bilateral pulmonary embolism: Status: Acute DS: Medications Discharge Medications Home Medications: Home Medications Medication Instructions Recorded Confirmed aspirin 81 mg tablet,delayed 81 mg PO DAILY 10/26/20 12/08/20 release atorvastatin 80 mg tablet 80 mg PO DAILY 10/26/20 12/08/20 cholecalciferol (vitamin D3) 50 50 mcg PO DAILY 10/26/20 12/08/20 mcg (2,000 unit) capsule ferrous fumarate 325 mg (106 mg 325 mg PO DAILY 10/26/20 12/08/20 iron) tablet glipizide 5 mg tablet 5 mg PO BID 10/26/20 12/08/20 metformin 500 mg tablet 500 mg PO DAILY 10/26/20 12/08/20 omeprazole 20 mg capsule,delayed 20 mg PO DAILY 10/26/20 12/08/20 release verapamil 100 mg capsule 24hr 100 mg PO BEDTIME 10/26/20 12/08/[address],ext.release acetaminophen 500 mg tablet 500 mg PO Q6H PRN 11/07/20 12/08/20 Previous Rx's Medication Instructions Recorded lisinopril 2.5 mg tablet 2.5 mg PO DAILY #90 tab 07/24/20 metoprolol succinate 50 mg 150 mg PO DAILY #270 tab 07/24/20 tablet,extended release 24 hr pramipexole 0.25 mg tablet 0.25 mg PO BID PRN #180 tab 07/24/20 trazodone 50 mg tablet 50 mg PO BEDTIME #90 tab 07/24/20 duloxetine 30 mg capsule,delayed 30 mg PO DAILY #90 cap 11/14/20 release alprazolam 0.25 mg tablet 0.25 mg PO DAILY PRN #20 tab 11/27/20 apixaban 5 mg tablet 5 mg PO Q12H #60 tab 11/29/20 DS: Summary Hospital Course Hospital Course: Admission note HPI A 75 years old lady with PMH of CAD, COPD, lung nodules, recent PE on Eliquis who presents to the hospital with a complaint of increased lethargy and weakness. The patient reported that she was doing well until almost 1 week ago when she started to notice that she became very easily winded with minimal activity at her energy level has decreased significantly. She reports that she started Eliquis last month after being diagnosed with PE. She noticed that her stools have been black but reports that she takes iron pills and test with has been always dark. Her baseline hemoglobin was noted to be around 13 what in the emergency today was noticed to be 7.6. In the emergency blood transfusion was started in the patient was admitted to the hospital for further evaluation and treatment. Hospital course The patient was noted to have significant drop in her hemoglobin from baseline of around 12 to almost 7 at time of presentation. Requiring 2 units blood transfusion with good response as her shortness of breath and dyspnea improved significantly. Treatment with IV pantoprazole of. Hemoglobin remained stable around 9.5 during the rest of hospital stay. She was evaluated by Hematology who recent history will be on Eliquis at this point. Recommendation to hold Eliquis until find a GI workup was done and to continue it afterward indefinitely pending further evaluation of underlying malignancy and follow-up with her outpatient PCP and pulmonology. Evaluated by senior drupal developer who recommended doing EGD. EGD findings were consistent with Time Spent with Patient Time attestation: Total time spent providing and/or coordinating discharge services: Physical Exam Vital Signs: Vital Signs: Last Vital Signs Temp 97.6 F 12/12/20 07:21 Pulse 101 H 12/12/20 08:24 Resp 18 12/12/20 07:21 BP 155/60 H 12/12/20 08:24 Pulse Ox 97 12/12/20 07:21 Body Mass Index 40.4 Const: Other: Constitutional : Alert, oriented, not in distress Neck : Normal inspection, Supple Cardiovascular : RRR, S1 S2, no lower extremity edema Respiratory : Good bilateral air entry, no crackles, wheezes or rhonchi Gastrointestinal: soft, lax, Normal bowel sounds, Non tender Skin : Warm/Dry, No rash Neurological : Alert & oriented x3, No focal deficit DS: Data Data Completed and Pending Labs on day of discharge: Laboratory Results - last 24 hr 12/11/20 12/11/20 12/11/20 12:00 16:33 20:18 POC Glucose 145 H 144 H 136 H 12/12/20 07:14 POC Glucose 165 H Discharge Plan Discharge Discharge Medications: No Action pramipexole 0.25 mg tablet 0.25 mg PO BID PRN (Reason: restless leg) Qty: 180 RF: 1 metoprolol succinate 50 mg tablet extended release 24 hr 150 mg PO DAILY Qty: 270 RF: 1 trazodone 50 mg tablet 50 mg PO BEDTIME Qty: 90 RF: 1 lisinopril 2.5 mg tablet 2.5 mg PO DAILY Qty: 90 RF: 1 duloxetine 30 mg capsule,delayed release(DR/EC) 30 mg PO DAILY Qty: 90 RF: 2 alprazolam 0.25 mg tablet 0.25 mg PO DAILY PRN (Reason: anxiety) Qty: 20 RF: 0 apixaban 5 mg tablet 5 mg PO Q12H Qty: 60 RF: 2 aspirin [Adult Aspirin Regimen] 81 mg tablet,delayed release (DR/EC) 81 mg PO DAILY RF: 0 atorvastatin 80 mg tablet 80 mg PO DAILY RF: 0 glipizide 5 mg tablet 5 mg PO BID RF: 0 metformin 500 mg tablet 500 mg PO DAILY RF: 0 omeprazole 20 mg capsule,delayed release(DR/EC) 20 mg PO DAILY RF: 0 verapamil 100 mg capsule, [address] 100 mg PO BEDTIME RF: 0 ferrous fumarate 325 mg (106 mg iron) tablet 325 mg PO DAILY RF: 0 cholecalciferol (vitamin D3) 50 mcg (2,000 unit) capsule 50 mcg PO DAILY RF: 0 acetaminophen 500 mg tablet 500 mg PO Q6H PRN (Reason: Pain) RF: 0 Other Ambulatory Orders: Add Laboratory Test (Routine) Timeframe: 20201209 Facility: [facility] - Location: Laboratory Ordered By: Maine Birch Dimer (Routine) Timeframe: 20201209 Facility: [facility] - Location: Laboratory Ordered By: Maine Dulala Partial Thromboplastin Time (Routine) Timeframe: 20201209 Facility: [facility] - Location: Laboratory Ordered By: Maine Perdue ~PT, ~INR - Anti Coag Clinic (Routine) Timeframe: 20201209 Location: None Selected Ordered By: Maine Perdue
[2020-12-12 11:24] LABS: Glucose, Whole Blood 149 mg/dL (60-115)
[2020-12-12] MEDS: Lactated Ringers 1,000 ML 50 ML IV (11:50)
[2020-12-12 12:21] LABS: Immunoglobulin A 284 mg/dL (70-320)
--- NOTE | 2020-12-12 12:36 | HO.ANESPROP2 ---
[facility] Active Problems Active Problems: All Active Problems (Updated 12/09/20 @ 12:33 by Maine Perdue MD) Symptomatic anemia (Acute) Acute blood loss anemia (Acute) Anemia (Acute) GIB (gastrointestinal bleeding) (Acute) COPD (chronic obstructive pulmonary disease) (Acute) Pulmonary nodules (Acute) Left upper lobe pulmonary nodule (Acute) Bilateral pulmonary embolism (Acute) Mixed dyslipidemia (Acute) Restless leg syndrome (Acute) Major depression in full remission (Acute) Irritable bowel syndrome with both constipation and diarrhea (Acute) GERD without esophagitis (Acute) CAD (coronary artery disease) (Acute) Essential hypertension (Acute) Type 2 diabetes mellitus without complication, without long-term current use of insulin (Acute) Past Medical History Medical History Bilateral pulmonary embolism CAD (coronary artery disease) COPD (chronic obstructive pulmonary disease) Essential hypertension GERD without esophagitis Irritable bowel syndrome with both constipation and diarrhea Left upper lobe pulmonary nodule Major depression in full remission Mixed dyslipidemia Pulmonary nodules Restless leg syndrome Type 2 diabetes mellitus without complication, without long-term current use of insulin Family History Family History Father HTN (hypertension) Myocardial infarction Hyperlipidemia Abdominal aneurysm Mother HTN (hypertension) Myocardial infarction Hyperlipidemia Brother Alzheimer's disease Sister Rheumatoid arthritis Brother Rheumatoid arthritis Maternal Aunt Diabetes mellitus Lung cancer Maternal Uncle Diabetes mellitus Son No problems noted. Daughter No problems noted. Surgical History Surgical History History of angioplasty History of heart artery stent History of knee replacement History of lymphoma S/P CABG x 2 Social History Social History Household Members: Significant Other Housing: House Alcohol intake: never Smoking Status: Former smoker Tobacco Type: Cigarette Years Smoked: 30 service: No Current occupational status: retired Meds Allergies Allergy/AdvReac Type Severity Reaction Status Date / Time Sulfa (Sulfonamide Allergy Severe Rash Verified 11/07/20 19:08 Antibiotics) adhesive tape [ADHESIVE TAPE] Allergy Intermediate BLISTERS Verified 11/07/20 19:08 sulfamethoxazole Allergy Intermediate RASH Verified 11/07/20 19:08 [From BACTRIM] trimethoprim [From BACTRIM] Allergy Intermediate RASH Verified 11/07/20 19:08 gabapentin AdvReac Severe hallucinati Verified 11/07/20 19:08 on morphine AdvReac Severe hallucinati Verified 11/07/20 19:08 on Active Medications: Current Medications Generic Name Dose Route Start Last Admin Trade Name Freq PRN Reason Stop Dose Admin Acetaminophen 650 mg 12/08/20 20:49 12/12/20 08:33 Acetaminophen 325 Mg Tablet PO 650 mg Q6H PRN Administration Pain, Mild (Pain Scale 1-3) Alprazolam 0.25 mg 12/08/20 20:49 12/12/20 05:35 Alprazolam 0.25 Mg Tablet PO 0.25 mg DAILY PRN Administration anxiety Atorvastatin Calcium 80 mg 12/09/20 21:00 12/11/20 21:29 Atorvastatin Calcium 80 Mg Tablet PO 80 mg BEDTIME CHRISTY Administration Cyanocobalamin 1,000 mcg 12/10/20 09:00 12/12/20 08:26 Cyanocobalamin (Vitamin B-12) 1,000 Mcg Tablet PO 1,000 mcg DAILY CHRISTY Administration Duloxetine HCl 30 mg 12/09/20 09:00 12/12/20 08:22 Duloxetine Hcl 30 Mg Capsule. PO 30 mg DAILY CHRISTY Administration Ferrous Sulfate 324 mg 12/13/20 09:00 Ferrous Sulfate 324 Mg Tablet. PO DAILY [facility] Heparin Sodium (Porcine) 5,000 unit 12/10/20 09:00 12/12/20 08:21 Heparin Sodium,Porcine 5,000 Unit/Ml Vial SUBCUT 5,000 unit Q8H CHRISTY Administration Insulin Human Lispro 0 unit 12/08/20 21:00 12/12/20 08:16 Insulin Lispro 100 Unit/Ml 3 Ml Vial SUBCUT Not Given QIDACHS [facility] Protocol Metoprolol Succinate 150 mg 12/09/20 09:00 12/12/20 08:24 Metoprolol Succinate Er 50 Mg Tab.Er.24h PO 150 mg DAILY CHRISTY Administration Protocol Ondansetron HCl 4 mg 12/08/20 20:49 Ondansetron Hcl 4 Mg/2 Ml Vial IVPUSH Q8H PRN Nausea and Vomiting Ondansetron HCl 4 mg 12/12/20 12:34 Ondansetron Hcl 4 Mg/2 Ml Vial IVPUSH ONCE PRN Nausea and Vomiting Pantoprazole Sodium 40 mg 12/09/20 16:30 12/12/20 05:36 Pantoprazole Sodium 40 Mg/10 Ml Vial IVPUSH 40 mg [id number] [facility] Administration Pharmacy Consult 1 each 12/08/20 13:43 Consult Rx Perform Med Rec MISCELLANE ONCE PRN Consult order Pramipexole Dihydrochloride 0.25 mg 12/08/20 20:49 12/12/20 05:35 Pramipexole Di-Hcl 0.25 Mg Tablet PO 0.25 mg BID PRN Administration restless leg Sodium Chloride 3 ml 12/09/20 00:00 12/12/20 08:22 0.9 % Sodium Chloride Flush 3 Ml Syringe IVFLUSH 3 ml QSHIFT [facility] Administration Trazodone HCl 50 mg 12/08/20 21:00 12/11/20 21:29 Trazodone Hcl 50 Mg Tablet PO 50 mg BEDTIME CHRISTY Administration Verapamil HCl 100 mg 12/08/20 21:00 12/11/20 21:29 Verapamil Hcl Sr 100 Mg Cap24h.Pct PO 100 mg BEDTIME [facility] Administration Protocol Home Medications Medication Instructions Recorded Confirmed Last Taken Type aspirin 81 mg tablet,delayed 81 mg PO DAILY 10/26/20 12/08/20 12/08/20 History release atorvastatin 80 mg tablet 80 mg PO DAILY 10/26/20 12/08/20 12/08/20 History cholecalciferol (vitamin D3) 50 50 mcg PO DAILY 10/26/20 12/08/20 12/08/20 History mcg (2,000 unit) capsule ferrous fumarate 325 mg (106 mg 325 mg PO DAILY 10/26/20 12/08/20 12/08/20 History iron) tablet glipizide 5 mg tablet 5 mg PO BID 10/26/20 12/08/20 12/08/20 History metformin 500 mg tablet 500 mg PO DAILY 10/26/20 12/08/20 12/08/20 History omeprazole 20 mg capsule,delayed 20 mg PO DAILY 10/26/20 12/08/20 12/08/20 History release verapamil 100 mg capsule 24hr 100 mg PO BEDTIME 10/26/20 12/08/20 12/07/[address],ext.release acetaminophen 500 mg tablet 500 mg PO Q6H PRN 11/07/20 12/08/20 12/08/20 History Exam Exam Date and Time: December 12, 2020 1236 Height,Weight and Vital Signs: Height 5 ft 1 in Weight 97.069 kg Last Vital Signs Temp 97.5 F 12/12/20 11:49 Pulse 89 12/12/20 11:49 Resp 18 12/12/20 11:49 BP 140/50 H 12/12/20 11:49 Pulse Ox 96 12/12/20 11:49 Pertinent Lab Results Pertinent Lab Results: Laboratory Tests 12/08/20 12/08/20 12/08/20 14:13 14:14 14:17 WBC RBC Hgb Hct MCV MCH MCHC RDW Plt Count MPV Absolute Nucleated RBC Nucleated RBC % (auto) Absolute Retic Percent Retic Immature Retic Fraction Retic Hgb Equivalent Sodium Potassium Chloride Carbon Dioxide Anion Gap BUN Creatinine Estim Creat Clear Calc Estimated GFR POC Glucose Random Glucose Calcium Iron TIBC % Saturation Unsat Iron Binding Total Bilirubin Direct Bilirubin AST ALT Alkaline Phosphatase Lactate Dehydrogenase Total Protein Albumin Vitamin B12 Folate Stool Collect Date Stool Occult Blood NEG Stool 2 Collect Date Stool Occult Blood #2 Stool 3 Collect Date Stool Occult Blood #3 IgA COVID-19 ([facility]) Negative COVID-19 Clin Com See Note Blood Type A Positive Antibody Screen NEGATIVE Crossmatch See Detail 12/08/20 12/08/20 12/08/20 14:18 14:18 19:22 WBC RBC Hgb Hct MCV MCH MCHC RDW Plt Count MPV Absolute Nucleated RBC Nucleated RBC % (auto) Absolute Retic Percent Retic Immature Retic Fraction Retic Hgb Equivalent Sodium 141 Potassium 4.2 Chloride 106 Carbon Dioxide 25 Anion Gap 14 BUN 20 H Creatinine 0.79 Estim Creat Clear Calc 67.6 Estimated GFR > 60 POC Glucose 122 H Random Glucose 104 Calcium 9.2 Iron 336 H TIBC 402 % Saturation 84 H Unsat Iron Binding 66 Total Bilirubin Direct Bilirubin AST ALT Alkaline Phosphatase Lactate Dehydrogenase Total Protein Albumin Vitamin B12 162 L Folate 9.6 Stool Collect Date Stool Occult Blood Stool 2 Collect Date Stool Occult Blood #2 Stool 3 Collect Date Stool Occult Blood #3 IgA COVID-19 ([facility]) COVID-19 Clin Com Blood Type Antibody Screen Crossmatch 12/08/20 12/09/20 12/09/20 21:10 06:27 06:27 WBC 7.1 RBC 3.10 L D Hgb 9.9 L D Hct 30.7 L D MCV 99.0 H D MCH 31.9 MCHC 32.2 RDW 18.4 H Plt Count 280 MPV 9.6 Absolute Nucleated RBC 0.020 H Nucleated RBC % (auto) 0.3 H Absolute Retic 0.151 H Percent Retic 4.9 H Immature Retic Fraction 40.0 H Retic Hgb Equivalent 32.2 Sodium 139 Potassium 4.0 Chloride 106 Carbon Dioxide 22 Anion Gap 15 BUN 18 H Creatinine 0.84 Estim Creat Clear Calc 63.5 Estimated GFR > 60 POC Glucose 130 H Random Glucose 159 H D Calcium 9.4 Iron TIBC % Saturation Unsat Iron Binding Total Bilirubin 1.3 H Direct Bilirubin 0.5 AST 17 ALT 12 Alkaline Phosphatase 52 Lactate Dehydrogenase 232 H Total Protein 7.4 Albumin 4.4 Vitamin B12 Folate Stool Collect Date Stool Occult Blood Stool 2 Collect Date Stool Occult Blood #2 Stool 3 Collect Date Stool Occult Blood #3 IgA COVID-19 ([facility]NA[facility]) COVID-19 [employer] Blood Type Antibody Screen Crossmatch 12/09/20 12/09/20 12/09/20 13:41 16:27 20:01 WBC RBC Hgb Hct MCV MCH MCHC RDW Plt Count MPV Absolute Nucleated RBC Nucleated RBC % (auto) Absolute Retic Percent Retic Immature Retic Fraction Retic Hgb Equivalent Sodium Potassium Chloride Carbon Dioxide Anion Gap BUN Creatinine Estim Creat Clear Calc Estimated GFR POC Glucose 170 H 129 H 162 H Random Glucose Calcium Iron TIBC % Saturation Unsat Iron Binding Total Bilirubin Direct Bilirubin AST ALT Alkaline Phosphatase Lactate Dehydrogenase Total Protein Albumin Vitamin B12 Folate Stool Collect Date Stool Occult Blood Stool 2 Collect Date Stool Occult Blood #2 Stool 3 Collect Date Stool Occult Blood #3 IgA COVID-19 ([facility]) COVID-19 [employer] Blood Type Antibody Screen Crossmatch 12/09/20 12/10/20 12/10/20 21:12 07:23 07:23 WBC 6.2 RBC 3.16 L Hgb 9.8 L Hct 31.8 L MCV 100.6 H MCH 31.0 MCHC 30.8 L RDW 18.0 H Plt Count 290 MPV 9.6 Absolute Nucleated RBC 0.000 Nucleated RBC % (auto) 0.0 Absolute Retic Percent Retic Immature Retic Fraction Retic Hgb Equivalent Sodium 140 Potassium 4.3 Chloride 104 Carbon Dioxide 24 Anion Gap 16 BUN 19 H Creatinine 0.83 Estim Creat Clear Calc 64.3 Estimated GFR > 60 POC Glucose Random Glucose 154 H Calcium 9.5 Iron TIBC % Saturation Unsat Iron Binding Total Bilirubin Direct Bilirubin AST ALT Alkaline Phosphatase Lactate Dehydrogenase Total Protein Albumin Vitamin B12 Folate Stool Collect Date 12/09/20 Stool Occult Blood POS Stool 2 Collect Date Not Reportable Stool Occult Blood #2 TNP Stool 3 Collect Date Not Reportable Stool Occult Blood #3 TNP IgA COVID-19 ([facility]) COVID-19 [employer] Blood Type Antibody Screen Crossmatch 12/10/20 12/10/20 12/10/20 07:23 07:47 11:35 WBC RBC Hgb Hct MCV MCH MCHC RDW Plt Count MPV Absolute Nucleated RBC Nucleated RBC % (auto) Absolute Retic Percent Retic Immature Retic Fraction Retic Hgb Equivalent Sodium Potassium Chloride Carbon Dioxide Anion Gap BUN Creatinine Estim Creat Clear Calc Estimated GFR POC Glucose 160 H 141 H Random Glucose Calcium Iron TIBC % Saturation Unsat Iron Binding Total Bilirubin Direct Bilirubin AST ALT Alkaline Phosphatase Lactate Dehydrogenase Total Protein Albumin Vitamin B12 Folate Stool Collect Date Stool Occult Blood Stool 2 Collect Date Stool Occult Blood #2 Stool 3 Collect Date Stool Occult Blood #3 IgA 284 COVID-19 ([facility]NA[facility]) COVID-19 [employer] Blood Type Antibody Screen Crossmatch 12/10/20 12/10/20 12/11/20 16:12 20:17 05:21 WBC 5.8 RBC 2.99 L Hgb 9.5 L Hct 30.1 L MCV 100.7 H MCH 31.8 MCHC 31.6 RDW 17.4 H Plt Count 264 MPV 9.7 Absolute Nucleated RBC 0.000 Nucleated RBC % (auto) 0.0 Absolute Retic Percent Retic Immature Retic Fraction Retic Hgb Equivalent Sodium Potassium Chloride Carbon Dioxide Anion Gap BUN Creatinine Estim Creat Clear Calc Estimated GFR POC Glucose 150 H 163 H Random Glucose Calcium Iron TIBC % Saturation Unsat Iron Binding Total Bilirubin Direct Bilirubin AST ALT Alkaline Phosphatase Lactate Dehydrogenase Total Protein Albumin Vitamin B12 Folate Stool Collect Date Stool Occult Blood Stool 2 Collect Date Stool Occult Blood #2 Stool 3 Collect Date Stool Occult Blood #3 IgA COVID-19 ([facility]NA[facility]) COVID-19 [employer] Blood Type Antibody Screen Crossmatch 12/11/20 12/11/20 12/11/20 07:52 12:00 16:33 WBC RBC Hgb Hct MCV MCH MCHC RDW Plt Count MPV Absolute Nucleated RBC Nucleated RBC % (auto) Absolute Retic Percent Retic Immature Retic Fraction Retic Hgb Equivalent Sodium Potassium Chloride Carbon Dioxide Anion Gap BUN Creatinine Estim Creat Clear Calc Estimated GFR POC Glucose 156 H 145 H 144 H Random Glucose Calcium Iron TIBC % Saturation Unsat Iron Binding Total Bilirubin Direct Bilirubin AST ALT Alkaline Phosphatase Lactate Dehydrogenase Total Protein Albumin Vitamin B12 Folate Stool Collect Date Stool Occult Blood Stool 2 Collect Date Stool Occult Blood #2 Stool 3 Collect Date Stool Occult Blood #3 IgA COVID-19 ([facility]NAV) COVID-19 [employer] Blood Type Antibody Screen Crossmatch 12/11/20 12/12/20 12/12/20 20:18 07:14 11:20 WBC RBC Hgb Hct MCV MCH MCHC RDW Plt Count MPV Absolute Nucleated RBC Nucleated RBC % (auto) Absolute Retic Percent Retic Immature Retic Fraction Retic Hgb Equivalent Sodium Potassium Chloride Carbon Dioxide Anion Gap BUN Creatinine Estim Creat Clear Calc Estimated GFR POC Glucose 136 H 165 H 149 H Random Glucose Calcium Iron TIBC % Saturation Unsat Iron Binding Total Bilirubin Direct Bilirubin AST ALT Alkaline Phosphatase Lactate Dehydrogenase Total Protein Albumin Vitamin B12 Folate Stool Collect Date Stool Occult Blood Stool 2 Collect Date Stool Occult Blood #2 Stool 3 Collect Date Stool Occult Blood #3 IgA COVID-19 ([facility]) COVID-19 Clin Com Blood Type Antibody Screen Crossmatch Airway Mallampati Class: II TM Dist: >3cm Neck ROM: Full Denture: Upper Partial: Upper Heart: RRR Lungs: CTS BL Assessment and Plan Assessment Anesthesia Assessment: Anesthesia Plan Discussed and Chart Reviewed Final Anesthetic Review NPO: Yes (Sip water) ASA Class: III Final Preanesthetic Review: No Changes in Pt Med Stat and Consent Obtained/Reviewed Patient Risk: Intermediate Procedure Risk: Intermediate Anesthetic Plan Anesthetic Plan: MAC: Disposition: Standard PACU
--- NOTE | 2020-12-12 12:38 | W.PM.OPN ---
Operative Note Operative Note Date of Service: 12/12/20 Narrative: Pre-op diagnosis: GI bleeding, iron and vitamin B12 deficiency anemia Post-op diagnosis: other (hiatal hernia, gastritis, gastric antral nodule) Procedure: FLEXIBLE TRANSORAL UPPER GASTROINTESTINAL ENDOSCOPY AND SMALL BOWEL ENTEROSCOPY WITH BIOPSIES Consent: Indications for the procedure and potential complications of bleeding, perforation, reaction to medications and missed diagnosis were discussed with the patient and informed consent was obtained. Instrument: Olympus PCF H 190L variable stiffness pediatric colonoscopy Monitoring: Vital signs and clinical assessment, continuous EKG monitoring, Pulse oximetry, Carbon Dioxide monitoring and blood pressure monitoring were done throughout the procedure. Procedure: The patient was placed in the left lateral decubitis position and pre-procedure medications were administered and a bite block was placed. The endoscope was inserted into the mouth and advanced under direct vision till 140 cms to the proximal jejunum. A careful inspection was made as the upper endoscope was withdrawn including a retroflexed examination of the proximal stomach; Findings and interventions are described below. Findings: Larynx: Normal Esophagus: GE junction at 33 cms, hiatal hernia 33 to 35 cms. 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 A non-obstructing Schatzki's ring. 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 Stomach: Moderate diffuse gastric erythema with prominent gastric folds - biopsied. A 1 cms benign appearing nodule in the antrum/pre-pyloric area. Biopsies were obtained. Grade 2 flap valve on retroflexed examination of the cardia. Duodenum/Proximal Jejunum: Normal bulb, descending duodenum and proximal Jejunum - random biopsies were obtained to check for celiac sprue. Intervention: Biopsies as noted above Impression and Post Procedure Diagnosis: Endoscopy Findings: ESOPHAGUS: GE junction at 33 cms, hiatal hernia 33 to 35 cms. 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 A non-obstructing Schatzki's ring. 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 STOMACH: Moderate diffuse gastric erythema with prominent gastric folds - biopsied. A 1 cms benign appearing nodule in the antrum/pre-pyloric area. Biopsies were obtained. DUODENUM/PROXIMAL JEJUNUM: Normal bulb, descending duodenum and proximal Jejunum - random biopsies were obtained to check for celiac sprue. Plan: Await pathology results. If biopsies are normal, pt will be scheduled for a Capsule Endoscopy as an outpatient. OK to DC home today. Resume eliquis tonight. Patient has an appointment on 01/11/21 in the GI [facility] with Diana Kong. Above findings were reviewed with the patient and GERD handout was given in the discharge area Surgeon: Isabel Galvin MD Anesthesia: MAC (Dr Grady) Estimated blood loss (mL): 0 Pathology: other (A. Small bowel, B. Gastric nodule, C. Gastric antrum, D. Distal esophagus/GE juntion) Condition: stable Disposition: PACU
--- NOTE | 2020-12-12 12:38 | MHC.SHP ---
Pre-Procedural Eval Section A The patient is an INPATIENT: Yes Changes since office visit: Yes New Medical Problems, Yes Changes in Medication and Yes Patient answered all questions; No Cold of Flu in the past 2 weeks The History & Physical has been completed within 30 days and I have reviewed it.: Yes Section B Chief Complaint: Dyspnea on exertion Fatigue Allergies: Allergies Allergy/AdvReac Type Severity Reaction Status Date / Time Sulfa (Sulfonamide Allergy Severe Rash Verified 11/07/20 19:08 Antibiotics) adhesive tape [ADHESIVE TAPE] Allergy Intermediate BLISTERS Verified 11/07/20 19:08 sulfamethoxazole Allergy Intermediate RASH Verified 11/07/20 19:08 [From BACTRIM] trimethoprim [From BACTRIM] Allergy Intermediate RASH Verified 11/07/20 19:08 gabapentin AdvReac Severe hallucinati Verified 11/07/20 19:08 on morphine AdvReac Severe hallucinati Verified 11/07/20 19:08 on Plan I have reviewed the history and physical and performed a pertinent physical examination on my patient. No changes have occurred unless specified.
--- NOTE | 2020-12-12 13:35 | PM.DS ---
DS: Providers Provider Date of Service: 12/12/20 Date of admission: 12/08/20 18:12 Primary care physician: Sary Waite MD Consults: 12/08/20 18:12 Consult to Hematology / Oncology Routine Consulting Provider: Maine Perdue Reason for consultation: Recent PE on Eliquis, underlying malignancy?, GIB for medical terminologist plan 12/09/20 09:36 Consult to Gastroenterology Routine Consulting Provider: Mounika rGay Reason for consultation: Symptomatic anemia, On Eliquis, GIB? DS: Diagnosis Discharge Diagnosis (1) Symptomatic anemia: Status: Acute (2) Acute blood loss anemia: Status: Acute (3) GIB (gastrointestinal bleeding): Status: Acute (4) Pulmonary nodules: Status: Acute (5) Bilateral pulmonary embolism: Status: Acute DS: Medications Discharge Medications Home Medications: Home Medications Medication Instructions Recorded Confirmed aspirin 81 mg tablet,delayed 81 mg PO DAILY 10/26/20 12/08/20 release atorvastatin 80 mg tablet 80 mg PO DAILY 10/26/20 12/08/20 cholecalciferol (vitamin D3) 50 50 mcg PO DAILY 10/26/20 12/08/20 mcg (2,000 unit) capsule ferrous fumarate 325 mg (106 mg 325 mg PO DAILY 10/26/20 12/08/20 iron) tablet glipizide 5 mg tablet 5 mg PO BID 10/26/20 12/08/20 metformin 500 mg tablet 500 mg PO DAILY 10/26/20 12/08/20 verapamil 100 mg capsule 24hr 100 mg PO BEDTIME 10/26/20 12/08/[address],ext.release acetaminophen 500 mg tablet 500 mg PO Q6H PRN 11/07/20 12/08/20 Previous Rx's Medication Instructions Recorded lisinopril 2.5 mg tablet 2.5 mg PO DAILY #90 tab 07/24/20 metoprolol succinate 50 mg 150 mg PO DAILY #270 tab 07/24/20 tablet,extended release 24 hr pramipexole 0.25 mg tablet 0.25 mg PO BID PRN #180 tab 07/24/20 trazodone 50 mg tablet 50 mg PO BEDTIME #90 tab 07/24/20 duloxetine 30 mg capsule,delayed 30 mg PO DAILY #90 cap 11/14/20 release alprazolam 0.25 mg tablet 0.25 mg PO DAILY PRN #20 tab 11/27/20 apixaban 5 mg tablet 5 mg PO Q12H #60 tab 11/29/20 omeprazole 40 mg PO DAILY #30 cap 12/12/20 DS: Summary Hospital Course Hospital Course: Admission note HPI A 75 years old lady with PMH of CAD, COPD, lung nodules, recent PE on Eliquis who presents to the hospital with a complaint of increased lethargy and weakness. The patient reported that she was doing well until almost 1 week ago when she started to notice that she became very easily winded with minimal activity at her energy level has decreased significantly. She reports that she started Eliquis last month after being diagnosed with PE. She noticed that her stools have been black but reports that she takes iron pills and test with has been always dark. Her baseline hemoglobin was noted to be around 13 what in the emergency today was noticed to be 7.6. In the emergency blood transfusion was started in the patient was admitted to the hospital for further evaluation and treatment. Hospital course The patient was noted to have significant drop in her hemoglobin from baseline of around 12 to almost 7 at time of presentation. Requiring 2 units blood transfusion with good response as her shortness of breath and dyspnea improved significantly. Treatment with IV pantoprazole of. Hemoglobin remained stable around 9.5 during the rest of hospital stay. She was evaluated by Hematology who recent history will be on Eliquis at this point. Recommendation to hold Eliquis until find a GI workup was done and to continue it afterward indefinitely pending further evaluation of underlying malignancy and follow-up with her outpatient PCP and pulmonology. Evaluated by real estate instructor who recommended doing EGD. EGD showed suspected Vicente which was biopsied and moderate gastric erythema with a small polyp that was biopsied. GI recommended starting her Eliquis later tonight and to follow-up with Dr. Gray as outpatient on January 11. to increase omeprazole to 40 mg daily To repeat CBC as outpatient Time Spent with Patient Time attestation: Total time spent providing and/or coordinating discharge services: Discharge coordination time: Greater than 30 minutes Physical Exam Vital Signs: Vital Signs: Last Vital Signs Temp 97.0 F 12/12/20 13:16 Pulse 90 12/12/20 13:16 Resp 16 12/12/20 13:16 BP 136/72 12/12/20 13:16 Pulse Ox 92 12/12/20 13:16 Body Mass Index 40.4 Const: Other: Constitutional : Alert, oriented, not in distress Neck : Normal inspection, Supple Cardiovascular : RRR, S1 S2, no lower extremity edema Respiratory : Good bilateral air entry, no crackles, wheezes or rhonchi Gastrointestinal: soft, lax, Normal bowel sounds, Non tender Skin : Warm/Dry, No rash Neurological : Alert & oriented x3, No focal deficit DS: Data Data Completed and Pending Pending studies at discharge: Pending at discharge 12/12/20 13:00 Surgical [PTH] Routine Labs on day of discharge: Laboratory Results - last 24 hr 12/10/20 12/11/20 12/11/20 07:23 16:33 20:18 POC Glucose 144 H 136 H IgA 284 12/12/20 12/12/20 07:14 11:20 POC Glucose 165 H 149 H IgA Discharge Plan Discharge Patient Disposition: Home, Self-Care Referrals: Sary Waite MD [Primary Care Provider] - Discharge Medications: New omeprazole 40 mg capsule,delayed release(DR/EC) 40 mg PO DAILY Qty: 30 RF: 2 Continued pramipexole 0.25 mg tablet 0.25 mg PO BID PRN (Reason: restless leg) Qty: 180 RF: 1 metoprolol succinate 50 mg tablet extended release 24 hr 150 mg PO DAILY Qty: 270 RF: 1 trazodone 50 mg tablet 50 mg PO BEDTIME Qty: 90 RF: 1 lisinopril 2.5 mg tablet 2.5 mg PO DAILY Qty: 90 RF: 1 duloxetine 30 mg capsule,delayed release(DR/EC) 30 mg PO DAILY Qty: 90 RF: 2 alprazolam 0.25 mg tablet 0.25 mg PO DAILY PRN (Reason: anxiety) Qty: 20 RF: 0 apixaban 5 mg tablet 5 mg PO Q12H Qty: 60 RF: 2 aspirin [Adult Aspirin Regimen] 81 mg tablet,delayed release (DR/EC) 81 mg PO DAILY RF: 0 atorvastatin 80 mg tablet 80 mg PO DAILY RF: 0 glipizide 5 mg tablet 5 mg PO BID RF: 0 metformin 500 mg tablet 500 mg PO DAILY RF: 0 verapamil 100 mg capsule, [address] 100 mg PO BEDTIME RF: 0 ferrous fumarate 325 mg (106 mg iron) tablet 325 mg PO DAILY RF: 0 cholecalciferol (vitamin D3) 50 mcg (2,000 unit) capsule 50 mcg PO DAILY RF: 0 acetaminophen 500 mg tablet 500 mg PO Q6H PRN (Reason: Pain) RF: 0 Discontinued omeprazole 20 mg capsule,delayed release(DR/EC) 20 mg PO DAILY RF: 0 Discharge Orders: Discharge Order (Routine); Ordered 12/12/20 Ordered By: Marisabel Joshua Diet: advance to usual diet Activity on Discharge: As tolerated Stand Alone Forms: Patient Portal Discharge page Other Ambulatory Orders: Add Laboratory Test (Routine) Timeframe: 20201209 Facility: [facility] - Location: Laboratory Ordered By: Maine Perdue Complete Blood Count no Diff (Routine) Timeframe: 1 Week Facility: [facility] - Location: [address]-Lab Ordered By: Marisabel Joshua D Dimer (Routine) Timeframe: 20201209 Facility: [facility] - Location: Laboratory Ordered By: Maine Perdue Partial Thromboplastin Time (Routine) Timeframe: 20201209 Facility: [facility] - Location: Laboratory Ordered By: Maine Perdue ~PT, ~INR - [facility] (Routine) Timeframe: 20201209 Location: None Selected Ordered By: Maine Perdue Care Plan Goals: Read below Health Concerns: Read below Plan of Treatment: You were admitted to the hospital for evaluation of difficulty breathing. Found to have significant drop in your blood level. You were treated with IV pantoprazole 2 units of blood transfusion with good response as your Eliquis was held during the hospital stay. Evaluated by Gastroenterology who did endoscopy that showed moderate erythema in your stoma and a small polyp that was biopsied. Plan to follow-up as outpatient with Dr. Gray on January 11 with a plan to do capsule endoscopy. Increase omeprazole to 40 mg daily Resume Eliquis later today To repeat blood test next week
--- NOTE | 2020-12-12 13:59 | MHC.CM.PN ---
PATIENT IS DISCHARGE HOME- SELF CARE RN AND UNIT AWARE OF PLAN. IMM 12/11 IN CHART.
[2020-12-13 00:13] LABS: Transglutaminase Ab IgG 2 U/mL; Transglutaminase IgA 1 U/mL
[2020-12-13 20:22] LABS: Intrinsic Factor Antibodies Negative (Negative)
[2020-12-15 08:52] LABS: Parietal Cell Antibody <=20.0 Unit (<=20.0)
== END 2020-12-12 16:50 | disposition home or self-care (01) | DRG 378 ==
LOC: HO.ED 15:28 → HO.EDOVER 18:18 → HO.S3 12-09 13:50
PROVIDERS: Internal Medicine Gastroenterology; Admitting Provider Student in an Organized Health Care Education/Training Program; Emergency Provider Emergency Medicine; PCP Internal Medicine; Visit Provider Student in an Organized Health Care Education/Training Program
PROC: 0DJ08ZZ Inspection of Upper Intestinal Tract, Via Natural or Artificial Opening Endoscopic (ICD-10-PCS; CPT 43235; principal; 2020-12-12 12:50)
DX: K92.1 Melena (principal); D62 Acute posthemorrhagic anemia; I85.00 Esophageal varices without bleeding; K21.9 Gastro-esophageal reflux disease without esophagitis; Z96.651 Presence of right artificial knee joint; I25.10 Atherosclerotic heart disease of native coronary artery without angina pectoris; Z95.1 Presence of aortocoronary bypass graft; G25.81 Restless legs syndrome; I10 Essential (primary) hypertension; Z20.822 Contact with and (suspected) exposure to COVID-19; K58.2 Mixed irritable bowel syndrome; Z87.891 Personal history of nicotine dependence; Z86.711 Personal history of pulmonary embolism; E53.8 Deficiency of other specified B group vitamins; K31.9 Disease of stomach and duodenum, unspecified; R91.8 Other nonspecific abnormal finding of lung field; K44.9 Diaphragmatic hernia without obstruction or gangrene; K22.2 Esophageal obstruction; Z88.2 Allergy status to sulfonamides; Z88.5 Allergy status to narcotic agent; Z79.01 Long term (current) use of anticoagulants; Z79.82 Long term (current) use of aspirin; Z79.84 Long term (current) use of oral hypoglycemic drugs; Z79.899 Other long term (current) drug therapy
CPT/HCPCS: 36415; 80048; 80076; 82270; 82272; 82607; 82746; 82784; 82947; 83516; 83540; 83615; 85025; 85027; 85045; 85610; 85652; 86340; 86850; 86900; 86901; 86923; 87635; 88305; 88342; 93005; 96374; 96376; 99285; J1200; P9016

== ENCOUNTER → 2020-12-20 08:27 | Outpatient (BNVA) | payer MEDICARE, SELFPAY | PROVIDERS: PCP Internal Medicine; Visit Provider Internal Medicine Gastroenterology | DX: D64.9 Anemia, unspecified (principal); R53.83 Other fatigue; R53.1 Weakness; Q27.33 Arteriovenous malformation of digestive system vessel | CPT/HCPCS: 91110 ==

== ENCOUNTER 2020-12-27 14:10 | Outpatient (REF) | payer MEDICARE, SELFPAY ==
[2020-12-27 15:13] LABS: MANUAL DIFF FLAG NO
[2020-12-27 15:33] LABS: Basophils Percent Auto 0.5 % (0-2); Eosinophils Absolute Auto 0.2 X10*3/uL (0.0-0.4); Eosinophils Percent Auto 2.5 % (0-4); Hematocrit 32.5 % (37-47); Hemoglobin 10.3 g/dl (12.0-16.0); Imm Gran Abs Auto 0.02 X10*3/uL (0.00-0.03); Imm Gran Pct Auto 0.3 % (0.0-0.4); Lymphocytes Absolute Auto 1.4 X10*3/uL (1.2-4.9); Lymphocytes Percent Auto 23.7 % (20-40); Mean Corpuscular HGB Conc 31.7 g/dl (31.0-35.0); Mean Corpuscular Volume 100.9 fL (80-98); Mean Platelet Volume 10.8 fL (9.4-12.3); Monocytes Absolute Auto 0.7 X10*3/uL (0.1-1.2); Neutrophils Absolute Auto 3.7 X10*3/uL (2.0-8.3); Platelet Count 342 X10*3/uL (160-400); Red Blood Count 3.22 X10*6/uL (4.20-5.50); Red Cell Distribution Width 14.5 % (11.0-16.0); White Blood Count 5.9 X10*3/uL (4.8-10.8)
[2020-12-27 15:38] LABS: Partial Thromboplastin Time 28.9 SEC (24.1-38.0)
[2020-12-27 15:51] LABS: Alanine Aminotransferase 13 U/L (0-31); Albumin Level 4.4 g/dL (3.5-5.0); Alkaline Phosphatase 61 U/L (39-117); Anion Gap 16 (12-20); Aspartate Amino Transferase 18 U/L (5-31); Bilirubin Total 0.4 mg/dL (0.0-1.0); Blood Urea Nitrogen 22 mg/dL (9-16); Calcium 9.7 mg/dL (8.4-10.2); Carbon Dioxide 26 mmol/L (22-29); Chloride 103 mmol/L (96-108); Cholesterol 154 mg/dL; Estimated Glomerular Filt Rate > 60; Glucose Fasting 155 mg/dL (60-99); HDL Cholesterol 43 mg/dL; LDL Cholesterol Calculated 64 mg/dl; Potassium 4.6 mmol/L (3.3-5.1); Sodium 140 mmol/L (135-145); Total Protein 7.4 g/dL (6.5-8.0); Triglycerides 236 mg/dL
[2020-12-27 15:57] LABS: D Dimer < 200 NG/ML
[2020-12-27 16:22] LABS: Estimated Average Glucose 100 mg/dL; Hemoglobin A1c % 5.1 %
[2020-12-27 16:23] LABS: Microalbum/Creatinine Ratio Ur 11.3 ug/mg cr
[2020-12-27 16:52] LABS: Vitamin B12 499 pg/mL (200-900)
== END 2020-12-27 14:11 | disposition home or self-care (01) ==
LOC: HO.LAB 14:10
PROVIDERS: Internal Medicine Gastroenterology; Absent Provider Student in an Organized Health Care Education/Training Program; PCP Internal Medicine; Visit Provider Internal Medicine
DX: D64.9 Anemia, unspecified (principal); D62 Acute posthemorrhagic anemia; E11.9 Type 2 diabetes mellitus without complications; E78.5 Hyperlipidemia, unspecified; I10 Essential (primary) hypertension; I25.10 Atherosclerotic heart disease of native coronary artery without angina pectoris; K21.9 Gastro-esophageal reflux disease without esophagitis; K58.2 Mixed irritable bowel syndrome; F32.5 Major depressive disorder, single episode, in full remission; G25.81 Restless legs syndrome; I26.99 Other pulmonary embolism without acute cor pulmonale; E53.8 Deficiency of other specified B group vitamins
CPT/HCPCS: 36415; 80053; 80061; 82043; 82607; 83036; 85025; 85379; 85730

== ENCOUNTER → 2021-01-10 12:51 | Outpatient (BNVA) | payer MEDICARE, SELFPAY | PROVIDERS: PCP Internal Medicine; Visit Provider Hospitalist | DX: I26.99 Other pulmonary embolism without acute cor pulmonale (principal); R91.8 Other nonspecific abnormal finding of lung field; J43.2 Centrilobular emphysema; Z87.891 Personal history of nicotine dependence; Z79.899 Other long term (current) drug therapy | CPT/HCPCS: 99212 ==

== ENCOUNTER 2021-01-28 08:34 | Outpatient (REF) | payer MEDICARE, SELFPAY ==
[2021-01-28 09:35] LABS: MANUAL DIFF FLAG NO
[2021-01-28 09:47] LABS: Basophils Percent Auto 0.2 % (0-2); Eosinophils Absolute Auto 0.1 X10*3/uL (0.0-0.4); Eosinophils Percent Auto 2.3 % (0-4); Hematocrit 34.9 % (37-47); Hemoglobin 10.8 g/dl (12.0-16.0); Imm Gran Abs Auto 0.01 X10*3/uL (0.00-0.03); Imm Gran Pct Auto 0.2 % (0.0-0.4); Lymphocytes Absolute Auto 1.3 X10*3/uL (1.2-4.9); Lymphocytes Percent Auto 22.5 % (20-40); Mean Corpuscular HGB Conc 30.9 g/dl (31.0-35.0); Mean Corpuscular Hemoglobin 31.5 pg (27.0-33.0); Mean Corpuscular Volume 101.7 fL (80-98); Mean Platelet Volume 10.9 fL (9.4-12.3); Monocytes Absolute Auto 0.6 X10*3/uL (0.1-1.2); Monocytes Percent Auto 9.6 % (2-11); Neutrophils Absolute Auto 3.9 X10*3/uL (2.0-8.3); Neutrophils Percent Auto 65.2 % (45-73); Platelet Count 299 X10*3/uL (160-400); Red Blood Count 3.43 X10*6/uL (4.20-5.50); Red Cell Distribution Width 13.7 % (11.0-16.0)
[2021-01-28 10:07] LABS: Anion Gap 17 (12-20); Blood Urea Nitrogen 19 mg/dL (9-16); Calcium 9.8 mg/dL (8.4-10.2); Carbon Dioxide 24 mmol/L (22-29); Chloride 106 mmol/L (96-108); Estimated Glomerular Filt Rate > 60; Glucose Random 172 mg/dL (60-115); Iron 36 mcg/dL (30-160); Percent Iron Saturation 9 % (15-50); Potassium 4.9 mmol/L (3.3-5.1); Sodium 142 mmol/L (135-145); Total Iron Binding Capacity 388 mcg/dL (228-428); Unsaturated Iron Binding 352 ug/dL
[2021-01-28 10:20] LABS: TSH reflex Free T4 0.84 uIU/mL (0.32-4.0); Vitamin D 25-OH Total 43.5 ng/mL (>30)
[2021-01-30 04:26] LABS: Folate 16.6 ng/mL (> or = 4.0); Vitamin B12 419 pg/mL (200-900)
== END 2021-01-28 08:35 | disposition home or self-care (01) ==
LOC: HO.LAB 08:34
PROVIDERS: Absent Provider Hospitalist; PCP Internal Medicine; Visit Provider Internal Medicine
DX: D51.9 Vitamin B12 deficiency anemia, unspecified (principal); I26.99 Other pulmonary embolism without acute cor pulmonale
CPT/HCPCS: 36415; 80048; 82306; 82607; 82746; 83540; 84443; 85025

== ENCOUNTER 2021-02-13 14:00 | Outpatient (REF) | payer MEDICARE, SELFPAY ==
--- NOTE | ~2021-02-13 | CT_ITS ---
EXAMINATION: CT ANGIOGRAM OF THE CHEST WITH AND WITHOUT CONTRAST (CT PULMONARY ANGIOGRAM FOR PE) CLINICAL INFORMATION: Reason for Exam R91.1 - Solitary pulmonary nodule COMPARISON: Previous chest x-ray November 2020. AP topograms and 10 most superior axial images through the neck are available for comparison. TECHNIQUE: Prior to contrast administration, noncontrast localization images were obtained. Subsequently, multidetector volumetric imaging was performed from the thoracic inlet to below the diaphragms following the administration of 65 mL Omnipaque 350 intravenous contrast. No contrast reaction reported Sagittal, coronal, and MIP oblique sagittal reformatted images were obtained on the CT workstation, uploaded to PACS, and reviewed. This CT examination was performed using dose optimization techniques as appropriate, variously including the following: *Automated exposure control *Adjustment of mA and/or kV according to patient size (this includes techniques or standardized protocols for targeted exams where dose is matched to indication/reason for exam; i.e. extremities or head) *Use of iterative reconstruction technique Total exam dose-length product 147 mGy-cm FINDINGS: QUALITY OF STUDY/CONTRAST BOLUS: Satisfactory. PULMONARY ARTERIES: No central or segmental pulmonary emboli. THORACIC AORTA: No aneurysm or dissection. LUNG: There is emphysema. There is mild biapical pleural and parenchymal scarring. There is a 6 mm peripheral or subpleural nodule in the apical posterior segment of the left upper lobe near the fissure axial image 138 series 9. There is a 3 x 5 mm peripheral or subpleural posterior segment right upper lobe nodule axial image 151 series 9 near the major fissure. The lungs are otherwise clear. PLEURA: No pleural effusion or pneumothorax. MEDIASTINUM: The heart does not appear enlarged. There are post-CABG changes. There is no pericardial effusion. There are no enlarged hilar or mediastinal lymph nodes. No evidence of septal bowing or right heart strain. CHEST WALL/AXILLA: No axillary or internal mammary lymphadenopathy. OSSEOUS STRUCTURES: No acute or suspicious osseous abnormality. UPPER ABDOMEN: There are degenerative changes of the spine. No reflux of contrast into the hepatic veins to suggest elevated right heart pressures. CT/CT angio chest PE protocol IMPRESSION: No evidence of pulmonary embolism. Post-CABG changes. Emphysema. Bilateral upper lobe pulmonary nodules. Comparison will be made with outside chest CT when the images are available. Only limited images through the neck are available from outside chest CT from [facility] May 2019. VTE: negative
[2021-02-13] MEDS: iohexoL 350 MG/ML 100 ML INFUS..BTL IV (15:12)
== END 2021-02-13 14:01 | disposition home or self-care (01) ==
LOC: HO.CT 14:00
PROVIDERS: Visit Provider Hospitalist
DX: R91.1 Solitary pulmonary nodule (principal); I26.99 Other pulmonary embolism without acute cor pulmonale
CPT/HCPCS: 71275; Q9967

== ENCOUNTER → 2021-03-06 13:09 | Outpatient (BNVA) | payer MEDICARE, SELFPAY | PROVIDERS: PCP Internal Medicine; Visit Provider Hospitalist | DX: I26.99 Other pulmonary embolism without acute cor pulmonale (principal); R91.8 Other nonspecific abnormal finding of lung field | CPT/HCPCS: 99212 ==

== ENCOUNTER 2021-03-15 08:18 | Day surgery (SDC) | payer MEDICARE, SELFPAY ==
[2021-03-08 15:05] VITALS: BMI 37.8
--- NOTE | 2021-03-14 11:50 | P.CONAN_ITS ---
Documented by User: Monae Mcnamara 03/14/21 11:57 HPI - Anesthesia Eval Consult details Narrative: 75yo F for Upper Endoscopy and Colonoscopy s/p EGD with MAC 12/2020 Eliquis for PE Stable per 02/2021 cardiac note (was cleared at low risk for hand surgery) [facility] Active Problems Active Problems: All Active Problems (Updated 03/08/21 @ 14:50 by Jessi Harmon) Mixed dyslipidemia (Acute) Vitamin B12 deficiency (Acute) Pulmonary nodules (Acute) Skin lesion of chest wall (Acute) Bilateral pulmonary embolism (Acute) Mixed dyslipidemia (Acute) Macrocytic anemia with vitamin B12 deficiency (Acute) Left upper lobe pulmonary nodule (Acute) Restless leg syndrome (Acute) Major depression in full remission (Acute) GERD without esophagitis (Acute) CAD (coronary artery disease) (Acute) Essential hypertension (Acute) Type 2 diabetes mellitus without complication, without long-term current use of insulin (Acute) Past Medical History Medical History (Updated 03/08/21 @ 14:50 by Jessi Harmon) Anemia Arthritis Bilateral pulmonary embolism CAD (coronary artery disease) COPD (chronic obstructive pulmonary disease) Essential hypertension GERD without esophagitis GIB (gastrointestinal bleeding) History of abdominal aortic aneurysm (AAA) Irritable bowel syndrome with both constipation and diarrhea Left upper lobe pulmonary nodule Macrocytic anemia with vitamin B12 deficiency Major depression in full remission Mixed dyslipidemia On anticoagulant therapy On beta ashleigh at home Pulmonary nodules Restless leg syndrome Skin lesion of chest wall Type 2 diabetes mellitus without complication, without long-term current use of insulin Vitamin B12 deficiency Family History Family History Father HTN (hypertension) Myocardial infarction Hyperlipidemia Abdominal aneurysm Mother HTN (hypertension) Myocardial infarction Hyperlipidemia Brother Alzheimer's disease Sister Rheumatoid arthritis Brother Rheumatoid arthritis Maternal Aunt Diabetes mellitus Lung cancer Maternal Uncle Diabetes mellitus Son No problems noted. Daughter No problems noted. Surgical History Surgical History (Updated 03/08/21 @ 14:36 by Jessi Harmon) History of angioplasty History of bilateral breast reduction surgery History of heart artery stent History of lymphoma History of total right knee replacement (TKR) Hx of colonoscopy Hx of esophagogastroduodenoscopy Hx of hysterectomy S/P CABG x 2 S/P excision of lipoma Social History Social History Household Members: Significant Other Housing: House Do you presently have visiting nurse or other home services: No Alcohol intake: never Years Smoked: 30 Substance Use Type: Marijuana Are you DNR?: No Advance Directives: Yes Advance Directives Information Provided: No Advance Directives on File: No service: No Current occupational status: retired Meds Allergies Allergy/AdvReac Type Severity Reaction Status Date / Time Sulfa (Sulfonamide Allergy Severe Rash Verified 03/08/21 13:59 Antibiotics) sulfamethoxazole Allergy Severe Rash Verified 03/08/21 13:59 [From Bactrim] trimethoprim [From Bactrim] Allergy Severe Rash Verified 03/08/21 13:59 adhesive tape [ADHESIVE TAPE] Allergy Intermediate BLISTERS Verified 03/08/21 13:59 gabapentin AdvReac Severe hallucinati Verified 03/08/21 13:59 on morphine AdvReac Severe hallucinati Verified 03/08/21 13:59 on Home Medications Medication Instructions Recorded Confirmed Last Taken Type aspirin 81 mg tablet,delayed 81 mg PO DAILY 10/26/20 03/08/21 12/08/20 History release cholecalciferol (vitamin D3) 50 50 mcg PO DAILY 10/26/20 03/08/21 12/08/20 History mcg (2,000 unit) capsule ferrous fumarate 325 mg (106 mg 325 mg PO DAILY 10/26/20 03/08/21 12/08/20 History iron) tablet glipizide 5 mg tablet 5 mg PO BID 10/26/20 03/08/21 12/08/20 History metformin 500 mg tablet 500 mg PO DAILY 10/26/20 03/08/21 12/08/20 History verapamil 100 mg capsule 24hr 100 mg PO BEDTIME 10/26/20 03/08/21 12/07/[address],ext.release acetaminophen 500 mg tablet 500 mg PO Q6H PRN 11/07/20 03/08/21 12/08/20 History clotrimazole 2 % vaginal cream 1 appful VAGINAL BEDTIME 12/28/20 03/08/21 Unknown History pramipexole mg PO 03/08/21 03/08/21 Unknown History Exam Exam Date and Time: March 14, 2021 1150 Height,Weight and Vital Signs: Height 5 ft 1 in Weight 90.718 kg Pertinent Lab Results Pertinent Lab Results: Laboratory Tests 01/28/21 01/28/21 08:56 08:56 WBC 6.0 Hgb 10.8 L Hct 34.9 L Plt Count 299 Sodium 142 Potassium 4.9 Chloride 106 Carbon Dioxide 24 BUN 19 H Creatinine 0.90 Narrative Narrative: EKG 11/2020 Vent. Rate : 086 BPM Atrial Rate : 086 BPM P-R Int : 168 ms QRS Dur : 090 ms QT Int : 390 ms P-R-T Axes : 056 -03 024 degrees QTc Int : 466 ms Normal sinus rhythm Normal ECG When compared with ECG of 03-FEB-2019 12:04, Premature ventricular complexes are no longer Present 75yo F for Conclusions: - 1. Normal LV systolic function with impaired relaxation filling pattern 2. Moderate aortic stenosis 3. Moderate mitral calcification mild mitral regurgitation 4. Normal RV systolic pressure 5. No pericardial effusion Assessment and Plan Assessment Anesthesia Assessment: Chart Reviewed Documented by User: Elma Weston 03/15/21 09:44 [facility] Past Medical History Medical History (Updated 03/08/21 @ 14:50 by Jessi Harmon) Anemia Arthritis Bilateral pulmonary embolism CAD (coronary artery disease) COPD (chronic obstructive pulmonary disease) Essential hypertension GERD without esophagitis GIB (gastrointestinal bleeding) History of abdominal aortic aneurysm (AAA) Irritable bowel syndrome with both constipation and diarrhea Left upper lobe pulmonary nodule Macrocytic anemia with vitamin B12 deficiency Major depression in full remission Mixed dyslipidemia On anticoagulant therapy On beta ashleigh at home Pulmonary nodules Restless leg syndrome Skin lesion of chest wall Type 2 diabetes mellitus without complication, without long-term current use of insulin Vitamin B12 deficiency Family History Family History Father HTN (hypertension) Myocardial infarction Hyperlipidemia Abdominal aneurysm Mother HTN (hypertension) Myocardial infarction Hyperlipidemia Brother Alzheimer's disease Sister Rheumatoid arthritis Brother Rheumatoid arthritis Maternal Aunt Diabetes mellitus Lung cancer Maternal Uncle Diabetes mellitus Son No problems noted. Daughter No problems noted. Surgical History Surgical History (Updated 03/08/21 @ 14:36 by Jessi Harmon) History of angioplasty History of bilateral breast reduction surgery History of heart artery stent History of lymphoma History of total right knee replacement (TKR) Hx of colonoscopy Hx of esophagogastroduodenoscopy Hx of hysterectomy S/P CABG x 2 S/P excision of lipoma Social History Social History Household Members: Significant Other Housing: House Do you presently have visiting nurse or other home services: No Alcohol intake: never Years Smoked: 30 Substance Use Type: Marijuana Are you DNR?: No Advance Directives: Yes Advance Directives Information Provided: No Advance Directives on File: No service: No Current occupational status: retired Meds Allergies Allergy/AdvReac Type Severity Reaction Status Date / Time Sulfa (Sulfonamide Allergy Severe Rash Verified 03/08/21 13:59 Antibiotics) sulfamethoxazole Allergy Severe Rash Verified 03/08/21 13:59 [From Bactrim] trimethoprim [From Bactrim] Allergy Severe Rash Verified 03/08/21 13:59 adhesive tape [ADHESIVE TAPE] Allergy Intermediate BLISTERS Verified 03/08/21 13:59 gabapentin AdvReac Severe hallucinati Verified 03/08/21 13:59 on morphine AdvReac Severe hallucinati Verified 03/08/21 13:59 on Home Medications Medication Instructions Recorded Confirmed Last Taken Type aspirin 81 mg tablet,delayed 81 mg PO DAILY 10/26/20 03/08/21 12/08/20 History release cholecalciferol (vitamin D3) 50 50 mcg PO DAILY 10/26/20 03/08/21 12/08/20 History mcg (2,000 unit) capsule ferrous fumarate 325 mg (106 mg 325 mg PO DAILY 10/26/20 03/08/21 12/08/20 History iron) tablet glipizide 5 mg tablet 5 mg PO BID 10/26/20 03/08/21 12/08/20 History metformin 500 mg tablet 500 mg PO DAILY 10/26/20 03/08/21 12/08/20 History verapamil 100 mg capsule 24hr 100 mg PO BEDTIME 10/26/20 03/08/21 12/07/[address],ext.release acetaminophen 500 mg tablet 500 mg PO Q6H PRN 11/07/20 03/08/21 12/08/20 History clotrimazole 2 % vaginal cream 1 appful VAGINAL BEDTIME 12/28/20 03/08/21 Unknown History pramipexole mg PO 03/08/21 03/08/21 Unknown History Exam Airway Mallampati Class: II TM Dist: >3cm Neck ROM: Full Denture: Upper Partial: Upper Heart: RRR Lungs: CTA Assessment and Plan Assessment Anesthesia Assessment: Anesthesia Plan Discussed and Chart Reviewed Final Anesthetic Review NPO: Yes ASA Class: III Final Preanesthetic Review: No Changes in Pt Med Stat and Consent Obtained/Reviewed Patient Risk: Intermediate Procedure Risk: Intermediate Anesthetic Plan Anesthetic Plan: MAC: Disposition: Standard PACU
[2021-03-15 09:33] LABS: Glucose, Whole Blood 157 mg/dL (60-115)
[2021-03-15 09:40] VITALS: BP 134/77; PULSE 84; RESP 16; TEMP 36.4; O2SAT 97
[2021-03-15] MEDS: Lactated Ringers 1,000 ML 50 ML IVCONT (09:49)
--- NOTE | 2021-03-15 10:07 | P.HPSUR_ITS ---
Pre-Procedural Eval Section B Chief Complaint: Anemia Relevant Family History (Specify if Yes): No Relevant Social History: Other (specify) (THC use) Present Medications: see Short Stay Collaborative assessment Medical History: Significant History (Anemia Arthritis Bilateral pulmonary embolism CAD (coronary artery disease) COPD (chronic obstructive pulmonary disease) Essential hypertension GERD without esophagitis GIB (gastrointestinal bleeding) History of abdominal aortic aneurysm (AAA) Irritable bowel syndrome with both constipation and diar) History of Previous Operations: Relevant previous surgery/procedure and date(s) (History of angioplasty History of bilateral breast reduction surgery History of heart artery stent History of lymphoma History of total right knee replacement (TKR) Hx of colonoscopy Hx of esophagogastroduodenoscopy Hx of hysterectomy S/P CABG x 2 S/P excision of lipoma) Allergies: Allergies Allergy/AdvReac Type Severity Reaction Status Date / Time Sulfa (Sulfonamide Allergy Severe Rash Verified 03/08/21 13:59 Antibiotics) sulfamethoxazole Allergy Severe Rash Verified 03/08/21 13:59 [From Bactrim] trimethoprim [From Bactrim] Allergy Severe Rash Verified 03/08/21 13:59 adhesive tape [ADHESIVE TAPE] Allergy Intermediate BLISTERS Verified 03/08/21 13:59 gabapentin AdvReac Severe hallucinati Verified 03/08/21 13:59 on morphine AdvReac Severe hallucinati Verified 03/08/21 13:59 on Review of Systems Sugical H&P ROS: Negative: Constitution, Cardiovascular, Respiratory, Neurological, Psychiatric, Hem-Onc, Allergic/Immunologic, Gastrointestinal, Genitourinary, Musculoskeletal, Integumentary, Endocrine and Eyes/Ears /Nose/Throat Exam Surgical H&P Exam: Normal: HEENT, Normal: Lungs, Normal: Extremities, Normal: Abdomen, Normal: Skin and Normal: Neurological and Significant Findings: Heart (murmur) Plan Diagnosis/Plan: Unchanged I have reviewed the history and physical and performed a pertinent physical examination on my patient. No changes have occurred unless specified. Push enteroscopy and colonoscopy for Ix of anemia and AVM seen on capsule
--- NOTE | 2021-03-15 10:11 | PM.OP ---
Brief Operative Note Date of Service: 03/15/21 Pre-op diagnosis: anemia, AVM on capsule Post-op diagnosis: same Procedure: see op note Surgeon: Toni Stone MD Anesthesia: MAC Was an Field Appraiser used for this Procedure?: No Estimated blood loss (mL): 0 Condition: stable Disposition: PACU
--- NOTE | 2021-03-15 10:12 | P.OP_ITS ---
Operative Note Operative Note Date of Service: 03/15/21 Narrative: Operative Information Procedure Description: Push enteroscopy, Colonoscopy FLEXIBLE TRANSORAL UPPER GASTROINTESTINAL ENDOSCOPY AND COLONOSCOPY PROCEDURE NOTE UPPER ENDOSCOPY Consent: Indications for the procedure and potential complications of bleeding, perforation, reaction to medications and missed diagnosis were discussed with the patient and informed consent was obtained. Instrument: Olympus GIF H 190 J colonoscope Monitoring: Vital signs and clinical assessment, continuous EKG monitoring, Pulse oximetry, Carbon Dioxide monitoring and blood pressure monitoring were done throughout the procedure. Procedure: The patient was placed in the left lateral decubitis position and pre-procedure medications were administered and a bite block was placed. The endoscope was inserted into the mouth and advanced under direct vision to the third part of duodenum. A careful inspection was made as the upper endoscope was withdrawn including a retroflexed examination of the proximal stomach; Findings and interventions are described below. Findings: Larynx:normal Esophagus: GE junction at 33 cm, diaphragm hiatus at 33 cm, bluish blebs in upper esophaghus, one single varix grade I in lower esophagus Stomach: Normal mucosa. Grade 2 flap valve on retroflexed examination of the cardia. Varix in lower esophagus noted. Duodenum: Normal bulb and descending duodenum, jejunum was normal, distal most point was injected with alea ink. AVm seen on capsule not seen. Intervention: Alea ink marking COLONOSCOPY Instrument: Olympus variable stiffness pediatric scope 190L Colonoscopy Monitoring: Vital signs and clinical assessment, continuous EKG monitoring, Pulse oximetry, Carbon Dioxide monitoring and blood pressure monitoring were done throughout the procedure. Colon withdrawal time was 10 minutes. Procedure: The patient was placed in the left lateral decubitis position and pre-procedure medications were administered. After a digital rectal examination of the ano-rectum, the video colonoscope was inserted into the rectum and advanced through the colon to the cecum/TI. The colonoscope was slowly withdrawn in a retrograde panoramic fashion and the colon mucosa was carefully examined including a retroflexed view of the rectum. Findings and interventions are described below. Procedure Difficulty: easy Findings: Terminal Ileum-normal Cecum:normal Ascending Colon: normal Transverse Colon -normal Descending Colon:normal Sigmoid Colon: few scattered diverticula seen, scattered bluish blebs noted Rectum: Retroflexion with moderate enlarged internal hemorrhoids, grade II, many bluish blebs and dilated veins noted, possibly rectal varices Anorectum - normal Colon preparation: [place] Bowel Preparation Scale Right colon; 3 Transverse colon: 3 Left colon; 3 (0 = Unprepared colon segment with mucosa not seen due to solid stool that cannot be cleared. 1 = Portion of mucosa of the colon segment seen, but other areas of the colon segment not well seen due to staining, residual stool and/or opaque liquid. 2 = Minor amount of residual staining, small fragments of stool and/or opaque liquid, but mucosa of colon segment seen well. 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
[2021-03-15 11:10] VITALS: BP 133/68; PULSE 96; RESP 17; TEMP 36.1; O2SAT 97
[2021-03-15 11:25] VITALS: BP 126/65; PULSE 89; RESP 18; O2SAT 96
== END 2021-03-15 12:10 | disposition home or self-care (01) ==
PROVIDERS: PCP Internal Medicine; Visit Provider Internal Medicine Gastroenterology
PROC: (CPT 45378; principal; 2021-03-15 10:00)
DX: D64.9 Anemia, unspecified (principal); K57.30 Diverticulosis of large intestine without perforation or abscess without bleeding; K64.1 Second degree hemorrhoids; K58.2 Mixed irritable bowel syndrome; K21.9 Gastro-esophageal reflux disease without esophagitis; I85.00 Esophageal varices without bleeding; J44.9 Chronic obstructive pulmonary disease, unspecified; I10 Essential (primary) hypertension; I71.4 Abdominal aortic aneurysm, without rupture; I26.99 Other pulmonary embolism without acute cor pulmonale; E11.9 Type 2 diabetes mellitus without complications; I25.10 Atherosclerotic heart disease of native coronary artery without angina pectoris; Z98.61 Coronary angioplasty status; Z95.1 Presence of aortocoronary bypass graft; Z79.84 Long term (current) use of oral hypoglycemic drugs; Z79.82 Long term (current) use of aspirin; Z79.01 Long term (current) use of anticoagulants; Z79.899 Other long term (current) drug therapy; Z88.2 Allergy status to sulfonamides; Z88.8 Allergy status to other drugs, medicaments and biological substances; Z87.891 Personal history of nicotine dependence
CPT/HCPCS: 45378; 43239; 82947; J1610

== ENCOUNTER → 2021-03-20 09:21 | Outpatient (BNVA) | payer MEDICARE, SELFPAY | PROVIDERS: PCP Internal Medicine; Visit Provider Physician Assistant | CPT/HCPCS: Q3014 ==

== ENCOUNTER 2021-03-30 12:07 | Outpatient (REF) | payer MEDICARE, SELFPAY ==
[2021-03-30 13:48] LABS: MANUAL DIFF FLAG NO
[2021-03-30 13:54] LABS: Basophils Percent Auto 0.4 % (0-2); Eosinophils Absolute Auto 0.1 X10*3/uL (0.0-0.4); Eosinophils Percent Auto 1.6 % (0-4); Hematocrit 33.7 % (37-47); Hemoglobin 10.6 g/dl (12.0-16.0); Imm Gran Abs Auto 0.01 X10*3/uL (0.00-0.03); Imm Gran Pct Auto 0.2 % (0.0-0.4); Lymphocytes Absolute Auto 1.5 X10*3/uL (1.2-4.9); Mean Corpuscular HGB Conc 31.5 g/dl (31.0-35.0); Mean Corpuscular Hemoglobin 30.5 pg (27.0-33.0); Mean Corpuscular Volume 96.8 fL (80-98); Mean Platelet Volume 11.8 fL (9.4-12.3); Monocytes Absolute Auto 0.5 X10*3/uL (0.1-1.2); Monocytes Percent Auto 9.2 % (2-11); Neutrophils Absolute Auto 3.4 X10*3/uL (2.0-8.3); Neutrophils Percent Auto 61.6 % (45-73); Platelet Count 260 X10*3/uL (160-400); Red Blood Count 3.48 X10*6/uL (4.20-5.50); Red Cell Distribution Width 12.9 % (11.0-16.0); White Blood Count 5.6 X10*3/uL (4.8-10.8)
== END 2021-03-30 12:08 | disposition home or self-care (01) ==
LOC: HO.HMGCLDS 12:07
PROVIDERS: PCP Internal Medicine; Visit Provider Physician Assistant
DX: R74.01 Elevation of levels of liver transaminase levels (principal)
CPT/HCPCS: 36415; 85025

== ENCOUNTER 2021-04-19 09:06 | Outpatient (REF) | payer MEDICARE, SELFPAY ==
[2021-04-19 11:25] LABS: MANUAL DIFF FLAG NO
[2021-04-19 11:40] LABS: Estimated Average Glucose 117 mg/dL; Hemoglobin A1c % 5.7 %
[2021-04-19 11:58] LABS: Creatinine Urine 163.19 mg/dL; Microalbum/Creatinine Ratio Ur 11.6 ug/mg cr
[2021-04-19 12:02] LABS: Basophils Percent Auto 0.5 % (0-2); Eosinophils Absolute Auto 0.1 X10*3/uL (0.0-0.4); Eosinophils Percent Auto 1.8 % (0-4); Hematocrit 28.7 % (37-47); Hemoglobin 8.8 g/dl (12.0-16.0); Imm Gran Abs Auto 0.02 X10*3/uL (0.00-0.03); Imm Gran Pct Auto 0.4 % (0.0-0.4); Lymphocytes Absolute Auto 1.4 X10*3/uL (1.2-4.9); Lymphocytes Percent Auto 24.6 % (20-40); Mean Corpuscular HGB Conc 30.7 g/dl (31.0-35.0); Mean Corpuscular Hemoglobin 31.3 pg (27.0-33.0); Mean Corpuscular Volume 102.1 fL (80-98); Monocytes Absolute Auto 0.5 X10*3/uL (0.1-1.2); Monocytes Percent Auto 8.9 % (2-11); Neutrophils Absolute Auto 3.6 X10*3/uL (2.0-8.3); Neutrophils Percent Auto 63.8 % (45-73); Platelet Count 340 X10*3/uL (160-400); Red Blood Count 2.81 X10*6/uL (4.20-5.50); Red Cell Distribution Width 15.4 % (11.0-16.0); White Blood Count 5.7 X10*3/uL (4.8-10.8)
[2021-04-19 12:19] LABS: Alanine Aminotransferase 13 U/L (0-31); Anion Gap 16 (12-20); Aspartate Amino Transferase 15 U/L (5-31); Blood Urea Nitrogen 16 mg/dL (9-16); Calcium 9.6 mg/dL (8.4-10.2); Carbon Dioxide 22 mmol/L (22-29); Chloride 107 mmol/L (96-108); Estimated Glomerular Filt Rate > 60; Glucose Fasting 156 mg/dL (60-99); Iron 174 mcg/dL (30-160); Percent Iron Saturation 45 % (15-50); Potassium 4.3 mmol/L (3.3-5.1); Sodium 141 mmol/L (135-145); Total Iron Binding Capacity 390 mcg/dL (228-428); Unsaturated Iron Binding 216 ug/dL
[2021-04-19 12:32] LABS: Ferritin 44 ng/mL (10-250); Vitamin D 25-OH Total 43.3 ng/mL (>30)
== END 2021-04-19 09:07 | disposition home or self-care (01) ==
LOC: HO.HMGCLDS 09:06
PROVIDERS: PCP Internal Medicine; Visit Provider Internal Medicine
DX: E11.9 Type 2 diabetes mellitus without complications (principal); E78.2 Mixed hyperlipidemia; I10 Essential (primary) hypertension; I25.10 Atherosclerotic heart disease of native coronary artery without angina pectoris; I26.99 Other pulmonary embolism without acute cor pulmonale; K21.9 Gastro-esophageal reflux disease without esophagitis
CPT/HCPCS: 36415; 80048; 82043; 82306; 82728; 83036; 83540; 84450; 84460; 85025

== ENCOUNTER 2021-04-22 11:38 | Emergency (ER) | payer MEDICARE, SELFPAY ==
[2021-04-22] VITALS (7 sets, daily range): BP systolic 118–148; BP diastolic 45–58; PULSE 59–81; RESP 11–16; TEMP 36.6–36.8; O2SAT 94–98; BMI 38.8
--- NOTE | 2021-04-22 12:43 | ECG_ITS ---
Test Reason : ABNORMAL LABS Blood Pressure : / mmHG Vent. Rate : 060 BPM Atrial Rate : 060 BPM P-R Int : 160 ms QRS Dur : 086 ms QT Int : 454 ms P-R-T Axes : 057 -06 034 degrees QTc Int : 454 ms Normal sinus rhythm Normal ECG When compared with ECG of 08-DEC-2020 14:05, No significant change was found Referred By: Winifred Bautista Electronically Signed By:AMARI MONROY
--- NOTE | 2021-04-22 12:45 | ED.RECABL ---
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 and GIB, on eliquis for PE, comes in with weakness/fatigue, malformations will likely cause chronic need for transfusions - pateint aware, plan is to see hematology Saturday to get on a schedule with outpatient transfusions at this time comes to ED for hemoglobin 8.8 requesting transfusion baseline is 10.5 to 9.5 complaint: abnormal lab Initial visit (ago): day(s) (on saturday had her routine blood work) Initial visit for: other Returns today for: called because of abnormal lab/test Symptoms since prior visit: no new symptoms Context: called for abnormal lab result Associated symptoms: other (fogginess, dyspnea, weakness) Related Data Home Medications Medication Instructions Recorded Confirmed aspirin 81 mg tablet,delayed 81 mg PO DAILY 10/26/20 03/20/21 release cholecalciferol (vitamin D3) 50 50 mcg PO DAILY 10/26/20 03/20/21 mcg (2,000 unit) capsule ferrous fumarate 325 mg (106 mg 325 mg PO DAILY 10/26/20 03/20/21 iron) tablet glipizide 5 mg tablet 5 mg PO BID 10/26/20 03/20/21 metformin 500 mg tablet 500 mg PO DAILY 10/26/20 03/20/21 verapamil 100 mg capsule 24hr 100 mg PO BEDTIME 10/26/20 03/20/[address],ext.release acetaminophen 500 mg tablet 500 mg PO Q6H PRN 11/07/20 03/20/21 clotrimazole 2 % vaginal cream 1 appful VAGINAL BEDTIME 12/28/20 03/20/21 pramipexole mg PO 03/08/21 03/20/21 Previous Rx's Medication Instructions Recorded duloxetine 30 mg capsule,delayed 30 mg PO DAILY #90 cap 11/14/20 release omeprazole 40 mg PO DAILY #30 cap 12/12/20 lisinopril 2.5 mg tablet 2.5 mg PO DAILY #90 tab 12/14/20 metoprolol succinate 50 mg 150 mg PO DAILY #270 tab 12/14/20 tablet,extended release 24 hr trazodone 50 mg tablet 50 mg PO BEDTIME #90 tab 12/14/20 alprazolam 0.25 mg tablet 0.25 mg PO DAILY PRN #20 tab 01/06/21 atorvastatin 80 mg tablet 80 mg PO DAILY #90 tab 01/06/21 cyanocobalamin (vitamin B-12) 5,000 mcg PO DAILY #30 tab 01/09/21 5,000 mcg disintegrating tablet folic acid 1 mg tablet 1 mg PO DAILY 30 Days #30 tab 01/10/21 apixaban 5 mg tablet 5 mg PO Q12H #60 tab 02/16/21 dicyclomine 20 mg tablet 20 mg PO BID #60 tab 03/07/21 Allergies Allergy/AdvReac Type Severity Reaction Status Date / Time Sulfa (Sulfonamide Allergy Severe Rash Verified 03/20/21 09:22 Antibiotics) sulfamethoxazole Allergy Severe Rash Verified 03/20/21 09:22 [From Bactrim] trimethoprim [From Bactrim] Allergy Severe Rash Verified 03/20/21 09:22 adhesive tape [ADHESIVE TAPE] Allergy Intermediate BLISTERS Verified 03/20/21 09:22 gabapentin AdvReac Severe hallucinati Verified 03/20/21 09:22 on morphine AdvReac Severe hallucinati Verified 03/20/21 09:22 on Review of Systems Review of Systems: Constitutional : No Weight loss, No Fever, No Chills, pos Fatigue, No Malaise ENT/Mouth : No sore throat, No Rhinorrhea Eyes: No Eye Pain, No Swelling, No Redness Cardiovascular : No Chest Pain, No SOB, pos Dyspnea on Exertion, No Orthopnea, No Edema, No Palpitations Respiratory : No Cough, No Sputum, No Wheezing Gastrointestinal : No Nausea, No Vomiting, No Diarrhea, No Constipation, No abdominal Pain, No Hematochezia, No Melena Genitourinary : No Dysuria, No Urinary Frequency, No Hematuria, Musculoskeletal : No joint pain, No Myalgias, No Joint Swelling Skin : No Skin Lesions, No rash Neuro : pos Weakness, No Numbness, No Dizziness, No Headache Psych : No Anxiety/Panic, No Depression Heme/Lymph: No Bruising, No Bleeding,No Lymphadenopathy Endocrine : No Polyuria, No Polydipsia All other systems reviewed and are negative PMFSH Past Medical History Attestation statement: The following information was validated with the patient. Medical History Anemia Arthritis Bilateral pulmonary embolism Bleeding hemorrhoids CAD (coronary artery disease) COPD (chronic obstructive pulmonary disease) Depression Essential hypertension GERD without esophagitis GIB (gastrointestinal bleeding) History of abdominal aortic aneurysm (AAA) Irritable bowel syndrome with both constipation and diarrhea Left upper lobe pulmonary nodule Macrocytic anemia with vitamin B12 deficiency Major depression in full remission Microcytic anemia Mixed dyslipidemia On anticoagulant therapy On beta ashleigh at home Pulmonary nodules Restless leg syndrome Skin lesion of chest wall Type 2 diabetes mellitus without complication, without long-term current use of insulin Vitamin B12 deficiency Surgical History History of angioplasty History of bilateral breast reduction surgery History of heart artery stent History of lymphoma History of total right knee replacement (TKR) Hx of colonoscopy Hx of esophagogastroduodenoscopy Hx of hysterectomy S/P CABG x 2 S/P excision of lipoma Family History Family History Father HTN (hypertension) Myocardial infarction Hyperlipidemia Abdominal aneurysm Mother HTN (hypertension) Myocardial infarction Hyperlipidemia Brother Alzheimer's disease Sister Rheumatoid arthritis Brother Rheumatoid arthritis Maternal Aunt Diabetes mellitus Lung cancer Maternal Uncle Diabetes mellitus Son No problems noted. Daughter No problems noted. Social History Social History Household Members: Significant Other Housing: House Do you presently have visiting nurse or other home services: No Alcohol intake: never Years Smoked: 30 Substance Use Type: Marijuana service: No Current occupational status: retired Physical Exam Vital Signs: Vital Signs: Last Vital Signs Pulse 74 04/22/21 12:46 Resp 16 04/22/21 12:46 BP 148/57 H 04/22/21 12:46 Pulse Ox 94 04/22/21 12:46 Body Mass Index 38.8 Appearance: Alert. Oriented X3. No acute distress. Eyes: Pupils equal, round and reactive to light. pale conjunctiva ENT: Pharynx normal. Neck: Normal inspection. Neck supple. CVS: Normal heart rate and rhythm. Pulses normal. Respiratory: No respiratory distress. Breath sounds normal. Abdomen: Soft and non-tender. Rectal: brown stool Skin: Skin warm and dry. pale skin color. Normal skin turgor. Extremities: No lower extremity edema. No calf ttp Neuro: Oriented X 3. No motor deficit. No sensory deficit. 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 Lab Data Result diagrams: 04/22/21 12:55 04/22/21 12:55 Labs: Lab Results 04/22/21 04/22/21 04/22/21 Range/Units 12:55 12:55 12:55 WBC 5.3 (4.8-10.8) X10*3/uL RBC 2.98 L (4.20-5.50) X10*6/uL Hgb 9.4 L (12.0-16.0) g/dl Hct 30.0 L (37-47) % MCV 100.7 H (80-98) fL MCH 31.5 (27.0-33.0) pg MCHC 31.3 (31.0-35.0) g/dl RDW 15.5 (11.0-16.0) % Plt Count 268 (160-400) X10*3/uL MPV 9.8 (9.4-12.3) fL Immature Gran % (Auto) 0.4 (0.0-0.4) % Neut % (Auto) 62.0 (45-73) % Lymph % (Auto) 23.1 (20-40) % [place] % (Auto) 12.0 H (2-11) % Eos % (Auto) 2.3 (0-4) % Baso % (Auto) 0.2 (0-2) % Lymph # (Auto) 1.2 (1.2-4.9) X10*3/uL [place] # (Auto) 0.6 (0.1-1.2) X10*3/uL Eos # (Auto) 0.1 (0.0-0.4) X10*3/uL Baso # (Auto) 0.0 (0.0-0.2) X10*3/uL Abs Immat Gran (auto) 0.02 (0.00-0.03) X10*3/uL Absolute Neuts (auto) 3.3 (2.0-8.3) X10*3/uL Absolute Nucleated RBC 0.000 (0.0-0.012) X10*3/uL Nucleated RBC % (auto) 0.0 (0.0-0.2) /100WBC PT 12.6 (9.9-13.0) SEC INR 1.1 (0.9-1.1) APTT 30.3 (24.1-38.0) SEC Sodium 142 (135-145) mmol/L Potassium 4.7 (3.3-5.1) mmol/L Chloride 107 (96-108) mmol/L Carbon Dioxide 23 (22-29) mmol/L Anion Gap 17 (12-20) BUN 18 H (9-16) mg/dL Creatinine 0.92 (0.5-1.4) mg/dL Estim Creat Clear Calc 54.5 Estimated GFR 60 Random Glucose 156 H (60-115) mg/dL Calcium 9.9 (8.4-10.2) mg/dL Total Bilirubin 0.2 (0.0-1.0) mg/dL AST 17 (5-31) U/L ALT 11 (0-31) U/L Alkaline Phosphatase 52 (39-117) U/L Troponin I High Sens (<3.5-17.0) ng/L Total Protein 7.2 (6.5-8.0) g/dL Albumin 4.2 (3.5-5.0) g/dL Stool Occult Blood (NEGATIVE) Blood Type Crossmatch 04/22/21 04/22/21 04/22/21 Range/Units 12:55 12:55 12:58 WBC (4.8-10.8) X10*3/uL RBC (4.20-5.50) X10*6/uL Hgb (12.0-16.0) g/dl Hct (37-47) % MCV (80-98) fL MCH (27.0-33.0) pg MCHC (31.0-35.0) g/dl RDW (11.0-16.0) % Plt Count (160-400) X10*3/uL MPV (9.4-12.3) fL Immature Gran % (Auto) (0.0-0.4) % Neut % (Auto) (45-73) % Lymph % (Auto) (20-40) % [place] % (Auto) (2-11) % Eos % (Auto) (0-4) % Baso % (Auto) (0-2) % Lymph # (Auto) (1.2-4.9) X10*3/uL [place] # (Auto) (0.1-1.2) X10*3/uL Eos # (Auto) (0.0-0.4) X10*3/uL Baso # (Auto) (0.0-0.2) X10*3/uL Abs Immat Gran (auto) (0.00-0.03) X10*3/uL Absolute Neuts (auto) (2.0-8.3) X10*3/uL Absolute Nucleated RBC (0.0-0.012) X10*3/uL Nucleated RBC % (auto) (0.0-0.2) /100WBC PT (9.9-13.0) SEC INR (0.9-1.1) APTT (24.1-38.0) SEC Sodium (135-145) mmol/L Potassium (3.3-5.1) mmol/L Chloride (96-108) mmol/L Carbon Dioxide (22-29) mmol/L Anion Gap (12-20) BUN (9-16) mg/dL Creatinine (0.5-1.4) mg/dL Estim Creat Clear Calc Estimated GFR Random Glucose (60-115) mg/dL Calcium (8.4-10.2) mg/dL Total Bilirubin (0.0-1.0) mg/dL AST (5-31) U/L ALT (0-31) U/L Alkaline Phosphatase (39-117) U/L Troponin I High Sens < 3.5 (<3.5-17.0) ng/L Total Protein (6.5-8.0) g/dL Albumin (3.5-5.0) g/dL Stool Occult Blood NEGATIVE (NEGATIVE) Blood Type A Positive Crossmatch See Detail ECG Data Attestation: I personally reviewed and interpreted this ECG as follows: ECG interpretation date: 04/22/21 ECG interpretation time: 13:10 Interpretation: Rate: 60 Rhythm: NSR [place]: left Normal P waves. Normal ASTER. Normal QRS complex. ST T wave : normal no ERICA qTC: normal prior studies: no acute ischemia The study has been interpreted contemporaneously by me. . Discharge Plan Discharge Clinical Impression: Anemia Patient Disposition: Home, Self-Care Instructions: Anemia (ED) Additional Instructions: return to ED for any worsening symptoms or concerns PLEASE FOLLOW UP WITH HEMATOLOGY SCHEDULED YOU WERE NOT POSITIVE FOR BLOOD TODAY ON YOUR RECTAL EXAM Prescriptions: No Action duloxetine 30 mg capsule,delayed release(DR/EC) 30 mg PO DAILY Qty: 90 RF: 2 metoprolol succinate 50 mg tablet extended release 24 hr 150 mg PO DAILY Qty: 270 RF: 1 lisinopril 2.5 mg tablet 2.5 mg PO DAILY Qty: 90 RF: 1 trazodone 50 mg tablet 50 mg PO BEDTIME Qty: 90 RF: 1 atorvastatin 80 mg tablet 80 mg PO DAILY Qty: 90 RF: 1 alprazolam 0.25 mg tablet 0.25 mg PO DAILY PRN (Reason: anxiety) Qty: 20 RF: 0 cyanocobalamin (vitamin B-12) 5,000 mcg tablet,disintegrating 5,000 mcg PO DAILY Qty: 30 RF: 1 apixaban 5 mg tablet 5 mg PO Q12H Qty: 60 RF: 2 dicyclomine 20 mg tablet 20 mg PO BID Qty: 60 RF: 3 omeprazole 40 mg capsule,delayed release(DR/EC) 40 mg PO DAILY Qty: 30 RF: 2 pramipexole 0.25 mg tablet PO RF: 0 clotrimazole 2 % cream 1 appful vaginal BEDTIME RF: 0 aspirin [Adult Aspirin Regimen] 81 mg tablet,delayed release (DR/EC) 81 mg PO DAILY RF: 0 glipizide 5 mg tablet 5 mg PO BID RF: 0 metformin 500 mg tablet 500 mg PO DAILY RF: 0 verapamil 100 mg capsule, [address] 100 mg PO BEDTIME RF: 0 ferrous fumarate 325 mg (106 mg iron) tablet 325 mg PO DAILY RF: 0 cholecalciferol (vitamin D3) 50 mcg (2,000 unit) capsule 50 mcg PO DAILY RF: 0 acetaminophen 500 mg tablet 500 mg PO Q6H PRN (Reason: Pain) RF: 0 folic acid 1 mg tablet 1 mg PO DAILY 30 Days Qty: 30 RF: 6
[2021-04-22 13:01] LABS: MANUAL DIFF FLAG NO
[2021-04-22 13:03] LABS: Basophils Percent Auto 0.2 % (0-2); Eosinophils Absolute Auto 0.1 X10*3/uL (0.0-0.4); Eosinophils Percent Auto 2.3 % (0-4); Hemoglobin 9.4 g/dl (12.0-16.0); Imm Gran Abs Auto 0.02 X10*3/uL (0.00-0.03); Imm Gran Pct Auto 0.4 % (0.0-0.4); Lymphocytes Absolute Auto 1.2 X10*3/uL (1.2-4.9); Lymphocytes Percent Auto 23.1 % (20-40); Mean Corpuscular HGB Conc 31.3 g/dl (31.0-35.0); Mean Corpuscular Hemoglobin 31.5 pg (27.0-33.0); Mean Corpuscular Volume 100.7 fL (80-98); Mean Platelet Volume 9.8 fL (9.4-12.3); Monocytes Absolute Auto 0.6 X10*3/uL (0.1-1.2); Neutrophils Absolute Auto 3.3 X10*3/uL (2.0-8.3); Platelet Count 268 X10*3/uL (160-400); Red Blood Count 2.98 X10*6/uL (4.20-5.50); Red Cell Distribution Width 15.5 % (11.0-16.0); White Blood Count 5.3 X10*3/uL (4.8-10.8)
[2021-04-22 13:05] LABS: OBS1 NEGATIVE (NEGATIVE)
[2021-04-22 13:06] LABS: OBS Int Ctl Valid YES
[2021-04-22 13:09] LABS: INTERNATIONAL NORM RATIO 1.1 (0.9-1.1); Prothrombin Time 12.6 SEC (9.9-13.0)
[2021-04-22 13:12] LABS: Partial Thromboplastin Time 30.3 SEC (24.1-38.0)
[2021-04-22 13:29] LABS: Alanine Aminotransferase 11 U/L (0-31); Albumin Level 4.2 g/dL (3.5-5.0); Alkaline Phosphatase 52 U/L (39-117); Anion Gap 17 (12-20); Aspartate Amino Transferase 17 U/L (5-31); Bilirubin Total 0.2 mg/dL (0.0-1.0); Blood Urea Nitrogen 18 mg/dL (9-16); Calcium 9.9 mg/dL (8.4-10.2); Carbon Dioxide 23 mmol/L (22-29); Chloride 107 mmol/L (96-108); Creatinine Clr Calc Pharmacy 54.5; Estimated Glomerular Filt Rate 60; Glucose Random 156 mg/dL (60-115); Potassium 4.7 mmol/L (3.3-5.1); Sodium 142 mmol/L (135-145); Total Protein 7.2 g/dL (6.5-8.0)
[2021-04-22 13:32] LABS: Troponin-I High Sensitivity < 3.5 ng/L (<3.5-17.0)
== END 2021-04-22 17:18 | disposition home or self-care (01) ==
LOC: HO.ED 14:03
PROVIDERS: Emergency Provider Emergency Medicine; PCP Internal Medicine
DX: D50.0 Iron deficiency anemia secondary to blood loss (chronic) (principal); K55.21 Angiodysplasia of colon with hemorrhage; Z86.711 Personal history of pulmonary embolism; Z79.01 Long term (current) use of anticoagulants
CPT/HCPCS: 36415; 36430; 80053; 82272; 84484; 85025; 85610; 85730; 86850; 86900; 86901; 86923; 93005; 99284; 99285; P9016

== ENCOUNTER → 2021-06-09 11:16 | Outpatient (BNV) | payer MEDICARE, SELFPAY | PROVIDERS: PCP Internal Medicine; Referring Provider Internal Medicine; Visit Provider Internal Medicine | DX: C34.12 Malignant neoplasm of upper lobe, left bronchus or lung (principal); C79.51 Secondary malignant neoplasm of bone; I26.99 Other pulmonary embolism without acute cor pulmonale | CPT/HCPCS: 99213; 99214; 99215; G2211 ==

== ENCOUNTER 2021-08-03 09:44 | Outpatient (REF) | payer MEDICARE, SELFPAY ==
--- NOTE | ~2021-08-03 | CT_ITS ---
EXAMINATION: CT CHEST WITHOUT CONTRAST CLINICAL INFORMATION: Pulmonary nodule follow-up COMPARISON: Previous chest CTA February [address] May 2019 and chest x-ray February 2021 TECHNIQUE: Multidetector volumetric CT imaging of the chest was done. Axial MIP volume rendering provided. Sagittal and coronal reformatted images were obtained. This CT examination was performed using dose optimization techniques as appropriate, variously including the following: *Automated exposure control *Adjustment of mA and/or kV according to patient size (this includes techniques or standardized protocols for targeted exams where dose is matched to indication/reason for exam; i.e. extremities or head) *Use of iterative reconstruction technique DLP: 193 mGy-cm FINDINGS: PODOPEDIATRICIAN: Enlarged heart and median sternotomy wires LUNGS: There is evidence of emphysema. There is a 1 x 0.7 cm left upper lobe nodule adjacent to the left pleural fissure axial image 135 series 7. This is slightly increased in size from 7 mm most recent exam and new from 2019 exam. The 3 mm right upper lobe nodule axial image 151 series 9 is no longer seen.. There is a 3 mm peripheral or subpleural right middle lobe nodule adjacent to the minor fissure axial image 180 5. there is a 3 mm calcified right middle lobe nodule axial image 209 series 5. No endobronchial or endotracheal lesion is seen. MEDIASTINUM: There are post-CABG changes. There is coronary artery and aortic valve calcification. Thoracic aorta is normal in caliber. The heart is normal in size. There is no pericardial effusion. There are small mediastinal lymph nodes. Enlarged hilar or mediastinal lymph nodes are seen. PLEURA: There is no pleural effusion. No pleural mass or thickening. AXILLA: No lymphadenopathy. UPPER ABDOMEN: The visualized abdominal aorta is heavily calcified. The upper abdominal aorta is slightly dilated measuring at least 3.2 x 3.3 cm. There are small stones seen in the kidneys. OSSEOUS STRUCTURES: There are degenerative changes of the spine. There is a united median sternotomy. CT/CT chest wo con IMPRESSION: Emphysema. Increasing peripheral or subpleural left upper lobe nodule adjacent to the fissure. Finding is questionable for neoplastic process. Imaging follow-up or tissue sampling should be considered. Previously identified small right upper lobe nodule not seen. Other small pulmonary nodules or micronodules are stable.
== END 2021-08-03 09:45 | disposition home or self-care (01) ==
LOC: HO.CT 09:44
PROVIDERS: PCP Internal Medicine; Visit Provider Hospitalist
DX: R91.8 Other nonspecific abnormal finding of lung field (principal)
CPT/HCPCS: 71250

== ENCOUNTER → 2021-08-21 13:26 | Outpatient (BNVA) | payer MEDICARE, SELFPAY | PROVIDERS: PCP Internal Medicine; Visit Provider Hospitalist | DX: I26.99 Other pulmonary embolism without acute cor pulmonale (principal); R91.8 Other nonspecific abnormal finding of lung field | CPT/HCPCS: 99212 ==

== ENCOUNTER 2021-09-02 11:44 | Inpatient (IN) | payer MEDICARE, SELFPAY ==
[2021-09-02] VITALS (12 sets, daily range): BP systolic 115–157; BP diastolic 39–122; PULSE 62–88; RESP 12–20; TEMP 36.1–36.9; O2SAT 97–100; BMI 35.9
--- NOTE | 2021-09-02 | ECG_ITS ---
Test Reason : CHEST PRESSURE Blood Pressure : / mmHG Vent. Rate : 067 BPM Atrial Rate : 067 BPM P-R Int : 158 ms QRS Dur : 084 ms QT Int : 420 ms P-R-T Axes : 029 000 016 degrees QTc Int : 443 ms Normal sinus rhythm Nonspecific ST and T wave abnormality Abnormal ECG When compared with ECG of 22-APR-2021 13:07, ST now depressed in Anterolateral leads Referred By: Generic ED Physician Electronically Signed By:ANTHONY AYERS MD
--- NOTE | 2021-09-02 14:10 | ED_ITS ---
HPI - General Adult General Chief complaint: General Medical Stated complaint: multiple complaints Time Seen by Provider: 09/02/21 13:31 Source: patient Mode of arrival: ambulatory Limitations: no limitations History of Present Illness HPI narrative: 76-year-old female who presents emergency department for evaluation dizziness, lightheadedness, shortness of breath, dyspnea on exertion, weakness and a flushed feeling in her chest and abdomen. The patient states that she has been feeling the symptoms for several days. She states that she often gets these symptoms when she is anemic. The patient believes that she had a transfusion several months ago secondary to her anemia. In reviewing the record, the patient was hospitalized on 02/2021 for anemia with an H&H of 7 and 12. She required 2 units of packed red blood cells. 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 Patient states that she has noted dark stools over the past several days but she states that she has on multiple or supplements that make her stool black. Related Data Home Medications Medication Instructions Recorded Confirmed aspirin 81 mg tablet,delayed 81 mg PO DAILY 10/26/20 06/09/21 release (Adult Aspirin Regimen) cholecalciferol (vitamin D3) 50 50 mcg PO DAILY 10/26/20 06/09/21 mcg (2,000 unit) capsule ferrous fumarate 325 mg (106 mg 325 mg PO DAILY 10/26/20 06/09/21 iron) tablet glipizide 5 mg tablet 5 mg PO BID 10/26/20 06/09/21 metformin 500 mg tablet 500 mg PO DAILY 10/26/20 06/09/21 verapamil 100 mg capsule 24hr 100 mg PO BEDTIME 10/26/20 09/02/[address],ext.release acetaminophen 500 mg tablet 500 mg PO Q6H PRN 11/07/20 06/09/21 clotrimazole 2 % vaginal cream 1 appful VAGINAL BEDTIME 12/28/20 06/09/21 Previous Rx's Medication Instructions Recorded cyanocobalamin (vitamin B-12) 5,000 mcg PO DAILY #30 tab 01/09/21 5,000 mcg disintegrating tablet lisinopril 2.5 mg tablet 2.5 mg PO DAILY #90 tab 05/04/21 metoprolol succinate 50 mg 150 mg PO DAILY #270 tab 05/04/21 tablet,extended release 24 hr trazodone 50 mg tablet 50 mg PO BEDTIME #90 tab 05/04/21 atorvastatin 80 mg tablet 80 mg PO DAILY #90 tab 05/25/21 folic acid 1 mg tablet 1 mg PO DAILY 90 Days #90 tab 05/30/21 dicyclomine 20 mg tablet 20 mg PO BID 90 Days #180 tab 06/08/21 omeprazole 40 mg capsule,delayed 40 mg PO DAILY 90 Days #90 cap 06/08/21 release alprazolam 0.25 mg tablet 0.25 mg PO DAILY PRN #20 tab 06/26/21 apixaban 5 mg tablet 5 mg PO Q12H #60 tab 06/26/21 sertraline 100 mg tablet 100 mg PO DAILY #90 tab 08/10/21 Allergies Allergy/AdvReac Type Severity Reaction Status Date / Time Sulfa (Sulfonamide Allergy Severe Rash Verified 08/21/21 13:41 Antibiotics) sulfamethoxazole Allergy Severe Rash Verified 08/21/21 13:41 [From Bactrim] trimethoprim [From Bactrim] Allergy Severe Rash Verified 08/21/21 13:41 adhesive tape [ADHESIVE TAPE] Allergy Intermediate BLISTERS Verified 08/21/21 13:41 clonidine Allergy makes pt Verified 08/21/21 13:41 hulusinate gabapentin AdvReac Severe hallucinati Verified 08/21/21 13:41 on morphine AdvReac Severe hallucinati Verified 08/21/21 13:41 on Review of Systems Review of Systems: Yes all other systems are reviewed and are negative PMFSH Past Medical History Medical History AAA (abdominal aortic aneurysm) Anemia Arthritis Barretts esophagus Bilateral pulmonary embolism Bleeding hemorrhoids CAD (coronary artery disease) COPD (chronic obstructive pulmonary disease) Depression Essential hypertension GERD without esophagitis GIB (gastrointestinal bleeding) History of abdominal aortic aneurysm (AAA) Irritable bowel syndrome with both constipation and diarrhea Left upper lobe pulmonary nodule Macrocytic anemia Macrocytic anemia with vitamin B12 deficiency Major depression in full remission Mixed dyslipidemia On anticoagulant therapy On beta ashleigh at home Pulmonary nodules Restless leg syndrome Skin lesion of chest wall Type 2 diabetes mellitus without complication, without long-term current use of insulin Vitamin B12 deficiency Surgical History History of angioplasty History of bilateral breast reduction surgery History of heart artery stent History of lymphoma History of total right knee replacement (TKR) Hx of colonoscopy Hx of esophagogastroduodenoscopy Hx of hysterectomy S/P CABG x 2 S/P excision of lipoma Family History Family History Father HTN (hypertension) Myocardial infarction Hyperlipidemia Abdominal aneurysm Mother HTN (hypertension) Myocardial infarction Hyperlipidemia Brother Alzheimer's disease Substance abuse Sister Rheumatoid arthritis Brother Rheumatoid arthritis Maternal Aunt Diabetes mellitus Lung cancer Maternal Uncle Diabetes mellitus Son No problems noted. Daughter No problems noted. Social History Social History Household Members: Children Housing: House Do you presently have visiting nurse or other home services: No Alcohol intake: current Alcohol intake frequency: holidays/special occasions only Patient Tobacco Use Status: Former Tobacco user Tobacco use type: Cigarette Cigarette Packs Per Day: 2 Years Smoked: 30 e-Cigarette/Vaping Use: Never Used Second Hand Smoke Exposure: No Substance Use Type: Marijuana Advance Directives: No service: No Current occupational status: retired Physical Exam Vital Signs: Vital Signs: Last Vital Signs Temp 97.8 F 09/02/21 15:42 Pulse 72 09/02/21 15:42 Resp 12 09/02/21 15:42 BP 140/61 H 09/02/21 15:42 Pulse Ox 100 09/02/21 15:33 Body Mass Index 35.9 Const: Other: Very pleasant cooperative female patient, she does appear to be pale she does not appear to be in any distress, she answers all questions appropriately. HENMT: Head: Yes normal to inspection, Yes normocephalic and Yes atraumatic Ears: external ears normal General nose exam: Normal external nose present Face and sinus: Yes normal facial exam Mouth: Normal oral and palatal mucosa present Throat: Yes posterior oropharynx normal Eyes: General: appearance normal, both eyes and all related structures Pupils: Equal, round and reactive pupils present Neck: Neck: Yes normal visual inspection, Yes no lymphadenopathy, Yes trachea midline and Yes supple Chest: Chest palpation & inspection: normal inspection of the chest and normal palpation of entire chest wall Resp: Effort & Inspection: normal respiratory effort and able to speak in complete sentences Auscultation: clear to auscultation bilaterally Cardio: Rate: regular rate Rhythm: regular rhythm Heart sounds: S1 normal heart sound present, S2 normal heart sound present and no murmurs GI: Inspection: Yes normal to inspection Palpation (GI): Soft to palpation, nontender and no guarding Auscultation: normal bowel sounds Rectal Exam - Female: heme positive stool and External hemorrhoid(s) present : General: Yes no CVA tenderness Back/Spine/Pelvis: Back: no CVA tenderness Skin: General skin exam: no rashes or lesions noted Neuro: Cranial nerves: Yes CN's II-XII intact bilaterally and Yes Equal, round and reactive pupils present Cognition (Neuro): normal cognition Motor exam (neuro): 5/5 motor strength present throughout Extrem: General: Yes normal to inspection Psych: Appearance: grossly normal Speech and movement: Normal speech and movement present Affect: normal affect Attitude: cooperative Thought process: Normal thought process present Thought content: Normal thought content present Course Course Course Narrative: 76-year-old female who presents emergency department for evaluation lightheadedness, dizziness, dyspnea on exertion, shortness of breath and weakness with a flushing sensation chest abdomen times several days. Patient states that she has had similar presentations in the past when she has been anemic. Patient has multifactorial anemia secondary to GI bleed and a macrocytic process. initial vital signs revealed a blood pressure of 139/48 otherwise was unremarkable. The patient's physical examination did reveal dark black stool which was Hemoccult positive. 1447: H&H was low at 6.1 and 20.7 this was compared to an H&H of 11.7 and 36 on 06/09/2021. Patient's MCV is high at 103, she has had similar elevations in the past. I did order her 2 units of packed red blood cells to be transfused. I will present the patient to the covering hospitalist. 1516 : I discuss the patient's presentation with the covering hospitalist, Dr. Llanos. Patient will be admitted to telemetry for further management. Patient does have an elevated troponin at 45.2. Twelve EKG revealed less than [address] segment depression in V1 through V4, therefore I will repeat a 3 hour troponin. Patient will be admitted to [facility] for further evaluation and transfusions. Medical Decision Making Lab Data Result diagrams: 09/02/21 14:22 09/02/21 14:22 Labs: Lab Results 09/02/21 09/02/21 09/02/21 Range/Units 14:22 14:22 14:22 WBC 5.6 (4.8-10.8) X10*3/uL RBC 2.00 L (4.20-5.50) X10*6/uL Hgb 6.1 L* (12.0-16.0) g/dl Hct 20.7 L* (37.0-47.0) % MCV 103.5 H (80.0-98.0) fL MCH 30.5 (27.0-33.0) pg MCHC 29.5 L (31.0-35.0) g/dl RDW 16.2 H (11.0-16.0) % Plt Count 251 (160-400) X10*3/uL MPV 9.9 (9.4-12.3) fL Immature Gran % (Auto) 0.5 H (0.0-0.4) % Neut % (Auto) 61.4 (45-73) % Lymph % (Auto) 26.8 (20-40) % [place] % (Auto) 9.7 (2-11) % Eos % (Auto) 1.4 (0-4) % Baso % (Auto) 0.2 (0-2) % Lymph # (Auto) 1.5 (1.2-4.9) X10*3/uL [place] # (Auto) 0.5 (0.1-1.2) X10*3/uL Eos # (Auto) 0.1 (0.0-0.4) X10*3/uL Baso # (Auto) 0.0 (0.0-0.2) X10*3/uL Abs Immat Gran (auto) 0.03 (0.00-0.03) X10*3/uL Absolute Neuts (auto) 3.4 (2.0-8.3) x10*3/uL Absolute Nucleated RBC 0.020 H (0.0-0.012) X10*3/uL Nucleated RBC % (auto) 0.4 H (0.0-0.2) /100WBC PT 12.9 (9.9-13.0) SEC INR 1.1 (0.9-1.1) APTT 21.4 L D (24.1-38.0) SEC Sodium 141 (135-145) mmol/L Potassium 4.4 (3.3-5.1) mmol/L Chloride 106 (96-108) mmol/L Carbon Dioxide 24 (22-29) mmol/L Anion Gap 15 (12-20) BUN 17 H (9-16) mg/dL Creatinine 0.79 (0.5-1.4) mg/dL Estim Creat Clear Calc 59.8 Estimated GFR > 60 Random Glucose 133 H (60-115) mg/dL Calcium 9.5 (8.4-10.2) mg/dL Total Bilirubin 0.2 (0.0-1.0) mg/dL AST 16 (5-31) U/L ALT 14 (0-31) U/L Alkaline Phosphatase 54 (39-117) U/L Troponin I High Sens (<3.5-17.0) ng/L Total Protein 6.6 (6.5-8.0) g/dL Albumin 4.0 (3.5-5.0) g/dL Lipase 36 (8-78) U/L Stool Occult Blood (NEGATIVE) Blood Type Antibody Screen Crossmatch 09/02/21 09/02/21 09/02/21 Range/Units 14:22 14:22 14:32 WBC (4.8-10.8) X10*3/uL RBC (4.20-5.50) X10*6/uL Hgb (12.0-16.0) g/dl Hct (37.0-47.0) % MCV (80.0-98.0) fL MCH (27.0-33.0) pg MCHC (31.0-35.0) g/dl RDW (11.0-16.0) % Plt Count (160-400) X10*3/uL MPV (9.4-12.3) fL Immature Gran % (Auto) (0.0-0.4) % Neut % (Auto) (45-73) % Lymph % (Auto) (20-40) % [place] % (Auto) (2-11) % Eos % (Auto) (0-4) % Baso % (Auto) (0-2) % Lymph # (Auto) (1.2-4.9) X10*3/uL [place] # (Auto) (0.1-1.2) X10*3/uL Eos # (Auto) (0.0-0.4) X10*3/uL Baso # (Auto) (0.0-0.2) X10*3/uL Abs Immat Gran (auto) (0.00-0.03) X10*3/uL Absolute Neuts (auto) (2.0-8.3) x10*3/uL Absolute Nucleated RBC (0.0-0.012) X10*3/uL Nucleated RBC % (auto) (0.0-0.2) /100WBC PT (9.9-13.0) SEC INR (0.9-1.1) APTT (24.1-38.0) SEC Sodium (135-145) mmol/L Potassium (3.3-5.1) mmol/L Chloride (96-108) mmol/L Carbon Dioxide (22-29) mmol/L Anion Gap (12-20) BUN (9-16) mg/dL Creatinine (0.5-1.4) mg/dL Estim Creat Clear Calc Estimated GFR Random Glucose (60-115) mg/dL Calcium (8.4-10.2) mg/dL Total Bilirubin (0.0-1.0) mg/dL AST (5-31) U/L ALT (0-31) U/L Alkaline Phosphatase (39-117) U/L Troponin I High Sens 45.2 H* D (<3.5-17.0) ng/L Total Protein (6.5-8.0) g/dL Albumin (3.5-5.0) g/dL Lipase (8-78) U/L Stool Occult Blood POSITIVE (NEGATIVE) Blood Type A Positive Antibody Screen NEGATIVE Crossmatch See Detail ECG Data Attestation: I personally reviewed and interpreted this ECG as follows: Interpretation: 1221: Sinus rhythm with a rate of 68, normal [place] interval QRS duration and QTC interval, no ST segment elevation, less than [address] segment depression the 1 through V5, inverted T-wave in lead 3, flat T-wave in AVF and V6, no PACs, no PVCs. Critical Care Time Critical Care Time Critical Care Time: Yes Total Critical Care Time: 40 Attestation: Critical Care: The patient was critically ill with a high probability of imminent or life threatening deterioration. I spent greater than 30 minutes of discontinuous time evaluating the patient,delivering critical care at the bedside, discussing and evaluating pertinent data with consultants. Critical care time does not include time spent performing separately billable procedures or teaching. Total time spent performing critical care was 45 minutes. Discharge Plan Discharge Clinical Impression: Anemia Chest pain Qualifiers: Chest pain type: unspecified Qualified Code(s): R07.9 - Chest pain, unspecified Patient Disposition: Admitted As Inpatient
[2021-09-02 14:27] LABS: MANUAL DIFF FLAG NO
[2021-09-02 14:29] LABS: Basophils Percent Auto 0.2 % (0-2); Eosinophils Absolute Auto 0.1 X10*3/uL (0.0-0.4); Eosinophils Percent Auto 1.4 % (0-4); Imm Gran Abs Auto 0.03 X10*3/uL (0.00-0.03); Imm Gran Pct Auto 0.5 % (0.0-0.4); Lymphocytes Absolute Auto 1.5 X10*3/uL (1.2-4.9); Lymphocytes Percent Auto 26.8 % (20-40); Mean Corpuscular HGB Conc 29.5 g/dl (31.0-35.0); Mean Corpuscular Hemoglobin 30.5 pg (27.0-33.0); Mean Corpuscular Volume 103.5 fL (80.0-98.0); Mean Platelet Volume 9.9 fL (9.4-12.3); Monocytes Absolute Auto 0.5 X10*3/uL (0.1-1.2); Monocytes Percent Auto 9.7 % (2-11); NRBC Pct Auto 0.4 /100WBC (0.0-0.2); Neutrophils Absolute Auto 3.4 x10*3/uL (2.0-8.3); Neutrophils Percent Auto 61.4 % (45-73); Platelet Count 251 X10*3/uL (160-400); Red Cell Distribution Width 16.2 % (11.0-16.0); White Blood Count 5.6 X10*3/uL (4.8-10.8)
[2021-09-02 14:35] LABS: INTERNATIONAL NORM RATIO 1.1 (0.9-1.1); Prothrombin Time 12.9 SEC (9.9-13.0)
[2021-09-02 14:36] LABS: OBS Int Ctl Valid YES; OBS1 POSITIVE (NEGATIVE)
[2021-09-02 14:38] LABS: Hemoglobin 6.1 g/dl (12.0-16.0)
[2021-09-02 14:39] LABS: Hematocrit 20.7 % (37.0-47.0)
[2021-09-02 14:42] LABS: Partial Thromboplastin Time 21.4 SEC (24.1-38.0)
[2021-09-02 14:44] LABS: Alanine Aminotransferase 14 U/L (0-31); Alkaline Phosphatase 54 U/L (39-117); Anion Gap 15 (12-20); Aspartate Amino Transferase 16 U/L (5-31); Bilirubin Total 0.2 mg/dL (0.0-1.0); Blood Urea Nitrogen 17 mg/dL (9-16); Calcium 9.5 mg/dL (8.4-10.2); Carbon Dioxide 24 mmol/L (22-29); Chloride 106 mmol/L (96-108); Creatinine Clr Calc Pharmacy 59.8; Estimated Glomerular Filt Rate > 60; Glucose Random 133 mg/dL (60-115); Lipase 36 U/L (8-78); Potassium 4.4 mmol/L (3.3-5.1); Sodium 141 mmol/L (135-145); Total Protein 6.6 g/dL (6.5-8.0)
[2021-09-02 14:57] LABS: Troponin-I High Sensitivity 45.2 ng/L (<3.5-17.0)
--- NOTE | 2021-09-02 15:35 | PC.NURSE ---
sr on monitor w occasional pvc, alert, hospitalist at beside to discuss plan.. transfusion started,bp rechecked and 157/64
[2021-09-02] MEDS: Pantoprazole Sodium 40 MG/10 ML VIAL IVPUSH ×2 (15:48→21:58)
--- NOTE | 2021-09-02 15:53 | PM.EVENT ---
Event Note Date of Service: 09/03/21 Event Note: This patient is seen and examined with APC. Patient came to the hospital because of acute on chronic anemia, exertion dyspnea, tired/weakness, black tarry stools. She has very added complicated GI history including AVM, hemorrhoids, also on B12- she had extensive GI workup out patiently-most of not revealing. In addition patient had a pulmonary embolism history in October 2020 and was on eliquis, she says that since October even she sees on and off blood in her stool too. Had some burning sensation, denies any chest pain Denies any abdominal pain or nausea or vomiting Denies any shortness of breath, sitting and talking in full sentences without oxygen. Lab imaging EKG reviewed: H&H 6.1, hematocrit is 20.7 Platelet seems to 51 BMP seems fine, troponin elevated 47 .2 ekg-seems similar to before but has anterior t wave the nonspecific changes. Physical exam and assessment and plan coordinated in APCs note, Agree with the plan in addition: Possible acute on chronic anemia secondary to GI bleed. Tele monitor Will hold aspirin and Eliquis for now 2 PRBC Ppi GI evaluation Case discussed with Heme-Onc Dr. Perdue recommended-hold off on anticoagulation currently since patient has anemia and possible GI bleed. Currently does not have any shortness of breath. Elevation of troponin probably related to demand due to anemia: Patient asymptomatic no chest pain EKG seems also similar to before. Will repeat troponin Currently we cannot give anticoagulation due to current GI bleed issue if troponin significantly up then we can place cardiology evaluation And echo.
--- NOTE | 2021-09-02 16:24 | PM.IMHP ---
History of Present Illness Date of Service: 09/02/21 <ALICIA Baird - Last Filed: 09/02/21 17:08> Attending physician on admission: Lyndsey Llanos <ALICIA Baird - Last Filed: 09/02/21 17:08> Chief Complaint: weakness <ALICIA Baird - Last Filed: 09/02/21 17:08> This is a 76-year-old female with multiple medical problems who presents to the emergency department today with weakness. She reports progressive weakness over the past few weeks. For 2 days she reports episodes of dizziness sweating and shortness of breath upon standing. These episodes last approximately 15 seconds and improved when she sits down. She has also noticed that her stools have become more dark and tarry in nature, she denies any bright red blood per rectum. She has had intermittent rectal bleeding since October. She has also had burning abdominal pain. She denies any nausea or vomiting. She does not drink alcohol and she denies the use of NSAIDs. Workup in the ED revealed anemia with H/H of 6.1/20.7. Troponin was 45.2. Her stool occult blood was positive. She was given a dose of IV protonix and two units of blood were ordered for transfusion. Of note, patient has had multiple episodes of GI bleeding since being started on Eliquis for PE in October. She has had EGD, colonoscopy and capsule endoscopy with findings of lee's esophagus solitary esophageal varix, AVMs, internal hemorrhoids, diverticular disease, possible rectal varices and venous malformations <ALICIA Baird - Last Filed: 09/02/21 17:08> Review of Systems Review of Systems: Yes all other systems are reviewed and are negative <ALICIA Baird Last Filed: 09/02/21 17:08> Constitutional: Constitutional: Denies chills and Denies fever(s) <ALICIA Baird Last Filed: 09/02/21 17:08> Cardiovascular: Cardiovascular: Denies chest pain <ALICIA Baird Last Filed: 09/02/21 17:08> Respiratory: Respiratory: Denies cough <ALICIA Baird Last Filed: 09/02/21 17:08> [facility] Medical History: Medical History AAA (abdominal aortic aneurysm) Anemia Arthritis Barretts esophagus Bilateral pulmonary embolism Bleeding hemorrhoids CAD (coronary artery disease) COPD (chronic obstructive pulmonary disease) Depression Essential hypertension GERD without esophagitis GIB (gastrointestinal bleeding) History of abdominal aortic aneurysm (AAA) Irritable bowel syndrome with both constipation and diarrhea Left upper lobe pulmonary nodule Macrocytic anemia Macrocytic anemia with vitamin B12 deficiency Major depression in full remission Mixed dyslipidemia On anticoagulant therapy On beta ashleigh at home Pulmonary nodules Restless leg syndrome Skin lesion of chest wall Type 2 diabetes mellitus without complication, without long-term current use of insulin Vitamin B12 deficiency <ALICIA Baird - Last Filed: 09/02/21 17:08> Functional capacity: independent ambulation <ALICIA Baird - Last Filed: 09/02/21 17:08> Family History: Family History Father HTN (hypertension) Myocardial infarction Hyperlipidemia Abdominal aneurysm Mother HTN (hypertension) Myocardial infarction Hyperlipidemia Brother Alzheimer's disease Substance abuse Sister Rheumatoid arthritis Brother Rheumatoid arthritis Maternal Aunt Diabetes mellitus Lung cancer Maternal Uncle Diabetes mellitus Son No problems noted. Daughter No problems noted. <ALICIA Baird - Last Filed: 09/02/21 17:08> Surgical History: Surgical History History of angioplasty History of bilateral breast reduction surgery History of heart artery stent History of lymphoma History of total right knee replacement (TKR) Hx of colonoscopy Hx of esophagogastroduodenoscopy Hx of hysterectomy S/P CABG x 2 S/P excision of lipoma <ALICIA Baird - Last Filed: 09/02/21 17:08> Social History: Social History Household Members: Spouse Housing: House Do you presently have visiting nurse or other home services: No Alcohol intake: current Alcohol intake frequency: holidays/special occasions only Patient Tobacco Use Status: Former Tobacco user Tobacco use type: Cigarette Cigarette Packs Per Day: 2 Years Smoked: 30 e-Cigarette/Vaping Use: Never Used Second Hand Smoke Exposure: No Use of substances other than those prescribed or required for medical reasons: No Substance Use Type: Marijuana Currently Displaying Signs/Symptoms of Drug Intoxication Withdrawal: No Have you been hit, kicked, punched, or otherwise hurt by someone within the past year? If so, by whom?: No Do you feel safe in your current relationship?: Yes Is there a partner from a previous relationship who is making you feel unsafe now?: No Are you made to feel afraid or neglected: No Advance Directives: No Do you have thoughts of harming others: None Do you have a plan to hurt others: No Plan Recently lost weight without trying: No Eating poorly because of decreased appetite: No Nutrition Risks: No Nutritional Risk Patient : No : No Poor oral hygiene: No service: No Current occupational status: retired <ALICIA Baird - Last Filed: 09/02/21 17:08> Meds Allergies/Adverse reactions: Allergies Allergy/AdvReac Type Severity Reaction Status Date / Time Sulfa (Sulfonamide Allergy Severe Rash Verified 08/21/21 13:41 Antibiotics) sulfamethoxazole Allergy Severe Rash Verified 08/21/21 13:41 [From Bactrim] trimethoprim [From Bactrim] Allergy Severe Rash Verified 08/21/21 13:41 adhesive tape [ADHESIVE TAPE] Allergy Intermediate BLISTERS Verified 08/21/21 13:41 clonidine Allergy makes pt Verified 08/21/21 13:41 hulusinate gabapentin AdvReac Severe hallucinati Verified 08/21/21 13:41 on morphine AdvReac Severe hallucinati Verified 08/21/21 13:41 on <ALICIA Baird - Last Filed: 09/02/21 17:08> Active Medications: Current Medications Acetaminophen (Acetaminophen 325 Mg Tablet) 650 mg PO Q6H PRN PRN Reason: Pain, Mild (Pain Scale 1-3) Folic Acid (Folic Acid 1 Mg Tablet) 1 mg PO DAILY CHRISTY Melatonin (Melatonin 3 Mg Tablet) 3 mg PO BEDTIME PRN PRN Reason: Insomnia Metoprolol Succinate (Metoprolol Succinate Er 50 Mg Tab.Er.24h) 50 mg PO DAILY CHRISTY; Protocol Multi-Ingred Cream/Lotion/Oil/Oint (Mineral Oil/Petrolatum,White 106 Gm Tube) 1 appl TOPICAL BID CHRISTY; Protocol Ondansetron HCl (Ondansetron Hcl 4 Mg/2 Ml Vial) 4 mg IVPUSH Q8H PRN PRN Reason: Nausea and Vomiting Pantoprazole Sodium (Pantoprazole Sodium 40 Mg/10 Ml Vial) 40 mg IVPUSH BID CHRISYT Sertraline HCl (Sertraline Hcl 100 Mg Tablet) 100 mg PO DAILY CHRISTY Sodium Chloride (0.9 % Sodium Chloride Flush 3 Ml Syringe) 3 ml IVFLUSH QSHIFT CHRISTY Trazodone HCl (Trazodone Hcl 50 Mg Tablet) 50 mg PO BEDTIME CHRISTY Verapamil HCl (Verapamil Hcl Sr 100 Mg Cap24h.Pct) 100 mg PO BEDTIME CHRISTY; Protocol <ALICIA Baird - Last Filed: 09/02/21 17:08> Home medications: Home Medications Medication Instructions Recorded Confirmed Last Taken Type aspirin 81 mg tablet,delayed 81 mg PO DAILY 10/26/20 06/09/21 12/08/20 History release (Adult Aspirin Regimen) cholecalciferol (vitamin D3) 50 50 mcg PO DAILY 10/26/20 06/09/21 12/08/20 History mcg (2,000 unit) capsule ferrous fumarate 325 mg (106 mg 325 mg PO DAILY 10/26/20 06/09/21 12/08/20 History iron) tablet glipizide 5 mg tablet 5 mg PO BID 10/26/20 06/09/21 12/08/20 History metformin 500 mg tablet 500 mg PO DAILY 10/26/20 06/09/21 12/08/20 History verapamil 100 mg capsule 24hr 100 mg PO BEDTIME 10/26/20 09/02/21 12/07/[address],ext.release acetaminophen 500 mg tablet 500 mg PO Q6H PRN 11/07/20 06/09/21 12/08/20 History clotrimazole 2 % vaginal cream 1 appful VAGINAL BEDTIME 12/28/20 06/09/21 Unknown History <ALICIA Baird - Last Filed: 09/02/21 17:08> Physical Exam Vital Signs and Narrative: Vital Signs: Last Vital Signs Temp 97.8 F 09/02/21 15:42 Pulse 72 09/02/21 15:42 Resp 12 09/02/21 15:42 BP 140/61 H 09/02/21 15:42 Pulse Ox 100 09/02/21 15:33 Body Mass Index 35.9 <ALICIA Baird - Last Filed: 09/02/21 17:08> Const: General: comfortable, no acute distress, alert and awake <ALICIA Baird - Last Filed: 09/02/21 17:08> Nutritional Appearance: well nourished <ALICIA Baird - Last Filed: 09/02/21 17:08> Orientation/consciousness: patient oriented x3 <ALICIA Baird - Last Filed: 09/02/21 17:08> HENMT: Head: Yes normocephalic and Yes atraumatic <ALICIA Baird - Last Filed: 09/02/21 17:08> Eyes: Sclerae: sclerae normal <ALICIA Baird - Last Filed: 09/02/21 17:08> Resp: Effort & Inspection: normal respiratory effort and no respiratory distress <ALICIA Baird - Last Filed: 09/02/21 17:08> Cardio: Rate: regular rate <ALICIA Baird - Last Filed: 09/02/21 17:08> Rhythm: regular rhythm <ALICIA Baird - Last Filed: 09/02/21 17:08> GI: Palpation (GI): Soft to palpation and nontender <ALICIA Baird - Last Filed: 09/02/21 17:08> Neuro: General: patient oriented x3 <ALICIA Baird - Last Filed: 09/02/21 17:08> Cranial nerves: Yes CN's II-XII intact bilaterally and Yes Bilaterally intact EOM present <ALICIA Baird - Last Filed: 09/02/21 17:08> Extrem: Other: no leg edema <ALICIA Baird - Last Filed: 09/02/21 17:08> Results Labs CBC and Chem 7: : 09/04/21 06:06 09/03/21 05:40 <ALICIA Baird - Last Filed: 09/02/21 17:08> Labs: Laboratory Results - last 24 hr 1109/02/21 09/02/21 14:22 14:22 14:22 MCV 103.5 H MCH 30.5 MCHC 29.5 L RDW 16.2 H Plt Count 251 MPV 9.9 Immature Gran % (Auto) 0.5 H Neut % (Auto) 61.4 Lymph % (Auto) 26.8 [place] % (Auto) 9.7 Eos % (Auto) 1.4 Baso % (Auto) 0.2 Lymph # (Auto) 1.5 [place] # (Auto) 0.5 Eos # (Auto) 0.1 Baso # (Auto) 0.0 Abs Immat Gran (auto) 0.03 Absolute Neuts (auto) 3.4 Absolute Nucleated RBC 0.020 H Nucleated RBC % (auto) 0.4 H PT 12.9 INR 1.1 APTT 21.4 L D Anion Gap 15 Estim Creat Clear Calc 59.8 Estimated GFR > 60 Random Glucose 133 H Calcium 9.5 Total Bilirubin 0.2 AST 16 ALT 14 Alkaline Phosphatase 54 Troponin I High Sens Total Protein 6.6 Albumin 4.0 Lipase 36 Stool Occult Blood Blood Type Antibody Screen Crossmatch 09/02/21 09/02/21 09/02/21 14:22 14:22 14:32 MCV MCH MCHC RDW Plt Count MPV Immature Gran % (Auto) Neut % (Auto) Lymph % (Auto) [place] % (Auto) Eos % (Auto) Baso % (Auto) Lymph # (Auto) [place] # (Auto) Eos # (Auto) Baso # (Auto) Abs Immat Gran (auto) Absolute Neuts (auto) Absolute Nucleated RBC Nucleated RBC % (auto) PT INR APTT Anion Gap Estim Creat Clear Calc Estimated GFR Random Glucose Calcium Total Bilirubin AST ALT Alkaline Phosphatase Troponin I High Sens 45.2 H* D Total Protein Albumin Lipase Stool Occult Blood POSITIVE Blood Type A Positive Antibody Screen NEGATIVE Crossmatch See Detail <ALICIA Baird - Last Filed: 09/02/21 17:08> Assessment and Plan (1) Anemia: Status: Chronic <ALICIA Baird - Last Filed: 09/02/21 17:08> This is a 75-year-old female with history of CAD s/p CABG, COPD, lung nodule, DM, COPD PE on Eliquis, h/o GI bleeding among others who presents to the emergency department with complaints of weakness and dizziness found to have anemia Acute on chronic anemia secondary to GI bleeding/acute blood loss has multiple possible sources of bleeding including esophageal and rectal AVMs, esopageal and rectal varices transfusion of 2U rbc started in ED -IV PPI -Hold Eliquis -follow CBC -GI consult -clear liquid diet Elevated troponin mostly likely secondary to demand from anemia -follow repeat trop h/o CAD -continue statin, BB h/o PE -Eliquis on hold for GI bleeding DM -SSI, POCs HTN -continue metoprolol, diltiazem -hold lisinopril mood -continue sertraline dvt ppx - SCDs given GI bleeding Code status - full code HCP and daughter Attending: dr. llanos <ALICIA Baird - Last Filed: 09/02/21 17:08> Quality Stroke Does the patient have a stroke diagnosis?: No <ALICIA Baird - Last Filed: 09/02/21 17:08> VTE Prior VTE?: Yes <ALICIA Baird - Last Filed: 09/02/21 17:08> VTE Risk Level:: Medical - moderate - high <ALICIA Baird - Last Filed: 09/02/21 17:08> VTE Device Contraindication: N/A - Device Ordered <ALICIA Baird - Last Filed: 09/02/21 17:08> VTE Drug Contraindication: Treatment Not Indicated <ALICIA Baird - Last Filed: 09/02/21 17:08>
[2021-09-02 18:05] LABS: COVID-19 Test Negative (Negative)
[2021-09-02 18:26] LABS: Glucose, Whole Blood 103 mg/dL (60-115)
[2021-09-02 18:37] LABS: Troponin-I High Sensitivity 39.4 ng/L (<3.5-17.0)
[2021-09-02 19:45] LABS: Glucose, Whole Blood 159 mg/dL (60-115)
[2021-09-02] MEDS: traZODone HCL 50 MG TABLET PO (21:58)
[2021-09-02] MEDS: Insulin Lispro 100 UNIT/ML 3 ML VIAL SUBCUT (21:59)
[2021-09-02] MEDS: 0.9 % Sodium Chloride Flush 3 ML SYRINGE IVFLUSH (22:36)
[2021-09-03] VITALS (8 sets, daily range): BP systolic 115–146; BP diastolic 60–84; PULSE 70–81; RESP 20; TEMP 36.4–37; O2SAT 95–98
[2021-09-03 05:59] LABS: MANUAL DIFF FLAG NO
[2021-09-03 06:15] LABS: Basophils Percent Auto 0.3 % (0-2); Eosinophils Absolute Auto 0.1 X10*3/uL (0.0-0.4); Eosinophils Percent Auto 1.6 % (0-4); Hematocrit 28.5 % (37.0-47.0); Imm Gran Abs Auto 0.03 X10*3/uL (0.00-0.03); Imm Gran Pct Auto 0.5 % (0.0-0.4); Lymphocytes Absolute Auto 1.1 X10*3/uL (1.2-4.9); Lymphocytes Percent Auto 17.4 % (20-40); Mean Corpuscular HGB Conc 31.6 g/dl (31.0-35.0); Mean Corpuscular Hemoglobin 29.9 pg (27.0-33.0); Mean Corpuscular Volume 94.7 fL (80.0-98.0); Monocytes Absolute Auto 0.6 X10*3/uL (0.1-1.2); Monocytes Percent Auto 8.7 % (2-11); Neutrophils Absolute Auto 4.5 x10*3/uL (2.0-8.3); Neutrophils Percent Auto 71.5 % (45-73); Platelet Count 256 X10*3/uL (160-400); Red Blood Count 3.01 X10*6/uL (4.20-5.50); Red Cell Distribution Width 17.4 % (11.0-16.0); White Blood Count 6.3 X10*3/uL (4.8-10.8)
[2021-09-03 06:46] LABS: Anion Gap 16 (12-20); Blood Urea Nitrogen 13 mg/dL (9-16); Calcium 9.2 mg/dL (8.4-10.2); Carbon Dioxide 23 mmol/L (22-29); Chloride 107 mmol/L (96-108); Creatinine Clr Calc Pharmacy 54.9; Estimated Glomerular Filt Rate > 60; Glucose Random 147 mg/dL (60-115); Potassium 3.9 mmol/L (3.3-5.1); Sodium 142 mmol/L (135-145)
[2021-09-03 07:46] LABS: Glucose, Whole Blood 142 mg/dL (60-115)
[2021-09-03] MEDS: Atorvastatin Calcium 80 MG TABLET PO (08:48)
[2021-09-03] MEDS: 0.9 % Sodium Chloride Flush 3 ML SYRINGE IVFLUSH ×3 (08:48→20:34)
[2021-09-03] MEDS: Sertraline HCL 100 MG TABLET PO (08:48)
[2021-09-03] MEDS: Folic Acid 1 MG TABLET PO (08:48)
[2021-09-03] MEDS: Metoprolol Succinate ER 50 MG TAB.ER.24H PO (08:49)
[2021-09-03] MEDS: Pantoprazole Sodium 40 MG/10 ML VIAL IVPUSH ×2 (08:49→20:33)
--- NOTE | 2021-09-03 11:20 | P.PNIM_ITS ---
Subjective Subjective Date of Service: 09/03/21 Interval History: anemia , gi bleed , hx of pulm embolism Review of Systems Patient denies any chest pain or shortness of breath or abdominal pain or fever chills or nausea vomiting. No max bleeding episode overnight. Physical Exam Vital Signs: Vital Signs: Last Vital Signs Temp 98.3 F 09/03/21 07:57 Pulse 70 09/03/21 08:49 Resp 20 09/03/21 07:57 BP 142/65 H 09/03/21 08:49 Pulse Ox 98 09/03/21 07:57 Body Mass Index 35.9 Physical exam: Appearance: Alert.? Oriented X3.? not in distress.? Eyes: Pupils equal, round and reactive to light.? Sclera nonicteric.? cvs: rrr, [id number] , no murmur res: clear to auscultation ,no rhonchii or wheezing abd: no rebound or guarding ,nt, bs present. ext pulses present , no cyanosis ,Gait well balanced well coordinated , no leg pains or swelling neuro: axo3 , nonfocal. Objective Data Active Medications Acetaminophen (Acetaminophen 325 Mg Tablet) 650 mg PO Q6H PRN PRN Reason: Pain, Mild (Pain Scale 1-3) Atorvastatin Calcium (Atorvastatin Calcium 80 Mg Tablet) 80 mg PO DAILY [facility] Last Admin: 09/03/21 08:48 Dose: 80 mg Documented by: HAYLEE Bisacodyl (Bisacodyl 10 Mg Supp.Rect) 10 mg [place] DAILY PRN PRN Reason: Constipation Dextrose (Dextrose 50 % 25 Gm/50 Ml Vial) 25 gm IVPUSH Q15M PRN; Protocol PRN Reason: per Hypoglycemia Standing Ord. Folic Acid (Folic Acid 1 Mg Tablet) 1 mg PO DAILY [facility] Last Admin: 09/03/21 08:48 Dose: 1 mg Documented by: HAYLEE Glucose (Glucose Gel 15 Gm Gel..Gram.) 15 gm PO Q15M PRN; Protocol PRN Reason: per Hypoglycemia Standing Ord. Insulin Human Lispro (Insulin Lispro 100 Unit/Ml 3 Ml Vial) 0 unit SUBCUT QIDACHS [facility]; Protocol Last Admin: 09/03/21 08:04 Dose: Not Given Documented by: HAYLEE Non-Admin Reason: No Insulin Coverage Melatonin (Melatonin 3 Mg Tablet) 3 mg PO BEDTIME PRN PRN Reason: Insomnia Metoprolol Succinate (Metoprolol Succinate Er 50 Mg Tab.Er.24h) 50 mg PO DAILY [facility]; Protocol Last Admin: 09/03/21 08:49 Dose: 50 mg Documented by: HAYLEE Multi-Ingred Cream/Lotion/Oil/Oint (Mineral Oil/Petrolatum,White 106 Gm Tube) 1 appl TOPICAL BID CHRISTY; Protocol Last Admin: 09/02/21 22:00 Dose: Not Given Documented by: JOHNY Non-Admin Reason: Med Not Available Ondansetron HCl (Ondansetron Hcl 4 Mg/2 Ml Vial) 4 mg IVPUSH Q8H PRN PRN Reason: Nausea and Vomiting Pantoprazole Sodium (Pantoprazole Sodium 40 Mg/10 Ml Vial) 40 mg IVPUSH BID [facility] Last Admin: 09/03/21 08:49 Dose: 40 mg Documented by: HAYLEE Sertraline HCl (Sertraline Hcl 100 Mg Tablet) 100 mg PO DAILY [facility] Last Admin: 09/03/21 08:48 Dose: 100 mg Documented by: HAYLEE Sodium Chloride (0.9 % Sodium Chloride Flush 3 Ml Syringe) 3 ml IVFLUSH QSHIFT [facility] Last Admin: 09/03/21 08:48 Dose: 3 ml Documented by: HAYLEE Trazodone HCl (Trazodone Hcl 50 Mg Tablet) 50 mg PO BEDTIME CHRISTY Last Admin: 09/02/21 21:58 Dose: 50 mg Documented by: JOHNY Verapamil HCl (Verapamil Hcl Sr 100 Mg Cap24h.Pct) 100 mg PO BEDTIME [facility]; Protocol Last Admin: 09/02/21 21:58 Dose: 100 mg Documented by: JOHNY Labs CBC & Chem 7: 09/03/21 05:40 09/03/21 05:40 Labs: Laboratory Results - last 24 hr 09/02/21 09/02/21 09/02/21 14:22 14:22 14:22 MCV 103.5 H MCH 30.5 MCHC 29.5 L RDW 16.2 H Plt Count 251 MPV 9.9 Immature Gran % (Auto) 0.5 H Neut % (Auto) 61.4 Lymph % (Auto) 26.8 [place] % (Auto) 9.7 Eos % (Auto) 1.4 Baso % (Auto) 0.2 Lymph # (Auto) 1.5 [place] # (Auto) 0.5 Eos # (Auto) 0.1 Baso # (Auto) 0.0 Abs Immat Gran (auto) 0.03 Absolute Neuts (auto) 3.4 Absolute Nucleated RBC 0.020 H Nucleated RBC % (auto) 0.4 H PT 12.9 INR 1.1 APTT 21.4 L D Anion Gap 15 Estim Creat Clear Calc 59.8 Estimated GFR > 60 POC Glucose Random Glucose 133 H Calcium 9.5 Total Bilirubin 0.2 AST 16 ALT 14 Alkaline Phosphatase 54 Troponin I High Sens Total Protein 6.6 Albumin 4.0 Lipase 36 Stool Occult Blood COVID-19 (ARNAV) [email or web address] [address] Blood Type Antibody Screen Crossmatch 09/02/21 09/02/21 09/02/21 14:22 14:22 14:32 MCV MCH MCHC RDW Plt Count MPV Immature Gran % (Auto) Neut % (Auto) Lymph % (Auto) [place] % (Auto) Eos % (Auto) Baso % (Auto) Lymph # (Auto) [place] # (Auto) Eos # (Auto) Baso # (Auto) Abs Immat Gran (auto) Absolute Neuts (auto) Absolute Nucleated RBC Nucleated RBC % (auto) PT INR APTT Anion Gap Estim Creat Clear Calc Estimated GFR POC Glucose Random Glucose Calcium Total Bilirubin AST ALT Alkaline Phosphatase Troponin I High Sens 45.2 H* D Total Protein Albumin Lipase Stool Occult Blood POSITIVE COVID-19 (ARNAV) COVID-[employer] [facility] Blood Type A Positive Antibody Screen NEGATIVE Crossmatch See Detail 09/02/21 09/02/21 09/02/21 17:41 17:42 18:23 MCV MCH MCHC RDW Plt Count MPV Immature Gran % (Auto) Neut % (Auto) Lymph % (Auto) [place] % (Auto) Eos % (Auto) Baso % (Auto) Lymph # (Auto) [place] # (Auto) Eos # (Auto) Baso # (Auto) Abs Immat Gran (auto) Absolute Neuts (auto) Absolute Nucleated RBC Nucleated RBC % (auto) PT INR APTT Anion Gap Estim Creat Clear Calc Estimated GFR POC Glucose 103 Random Glucose Calcium Total Bilirubin AST ALT Alkaline Phosphatase Troponin I High Sens 39.4 H* Total Protein Albumin Lipase Stool Occult Blood COVID-19 (ARNAV) Negative COVID-[employer] See Note Blood Type Antibody Screen Crossmatch 09/02/21 09/03/21 09/03/21 19:38 05:40 05:40 MCV 94.7 D MCH 29.9 MCHC 31.6 RDW 17.4 H Plt Count 256 MPV 10.0 Immature Gran % (Auto) 0.5 H Neut % (Auto) 71.5 Lymph % (Auto) 17.4 L [place] % (Auto) 8.7 Eos % (Auto) 1.6 Baso % (Auto) 0.3 Lymph # (Auto) 1.1 L [place] # (Auto) 0.6 Eos # (Auto) 0.1 Baso # (Auto) 0.0 Abs Immat Gran (auto) 0.03 Absolute Neuts (auto) 4.5 Absolute Nucleated RBC 0.000 Nucleated RBC % (auto) 0.0 PT INR APTT Anion Gap 16 Estim Creat Clear Calc 54.9 Estimated GFR > 60 POC Glucose 159 H Random Glucose 147 H Calcium 9.2 Total Bilirubin AST ALT Alkaline Phosphatase Troponin I High Sens Total Protein Albumin Lipase Stool Occult Blood COVID-19 (ARNAV) [email or web address] Blood Type Antibody Screen Crossmatch 09/03/21 07:42 MCV MCH MCHC RDW Plt Count MPV Immature Gran % (Auto) Neut % (Auto) Lymph % (Auto) [place] % (Auto) Eos % (Auto) Baso % (Auto) Lymph # (Auto) [place] # (Auto) Eos # (Auto) Baso # (Auto) Abs Immat Gran (auto) Absolute Neuts (auto) Absolute Nucleated RBC Nucleated RBC % (auto) PT INR APTT Anion Gap Estim Creat Clear Calc Estimated GFR POC Glucose 142 H Random Glucose Calcium Total Bilirubin AST ALT Alkaline Phosphatase Troponin I High Sens Total Protein Albumin Lipase Stool Occult Blood COVID-19 (ARNAV) [facility]-[employer] Blood Type Antibody Screen Crossmatch Assessment and Plan (1) Anemia: Status: Acute (2) Bilateral pulmonary embolism: Status: Acute Assessment and Plan: 75-year-old female with history of CAD s/p CABG, COPD, lung nodule, DM, COPD PE on Eliquis, h/o GI bleeding among others who presents to the emergency department with complaints of weakness and dizziness found to have anemia 1.Acute on chronic anemia secondary to GI bleeding/acute blood loss has multiple possible sources of bleeding including esophageal and rectal AVMs, esopageal and rectal varices transfusion of 2U rbc started in ED h/h improved to 07/11.5 moniter CBC continue IV PPI,Hold Eliquis,clear liquid diet. GI consult 2.Elevated troponin mostly likely secondary to demand from anemia trop flat ekg similar to previous no chest pain will consider further workup if new symptoms . 3.h/o CAD-continue statin, BB asa on hold due to anemia above. 4.h/o PE-Eliquis on hold for GI bleeding 5.DM-SSI, POCs 6.HTN-continue metoprolol, diltiazem -hold lisinopril 7.mood-continue sertraline Quality Stroke Does the patient have a stroke diagnosis?: No VTE Prior VTE?: Yes VTE Risk Level:: Medical - moderate - high VTE Device Contraindication: N/A - Device Ordered VTE Drug Contraindication: Treatment Not Indicated
[2021-09-03 11:30] LABS: Glucose, Whole Blood 188 mg/dL (60-115)
[2021-09-03] MEDS: Insulin Lispro 100 UNIT/ML 3 ML VIAL SUBCUT (11:32)
--- NOTE | 2021-09-03 12:12 | P.CNGI_ITS ---
History of Present Illness Data of Consult Service Date: 09/03/21 Requesting physician: Paz Mcdonald Primary Care Provider: Sary Waite MD [facility] Reason for consult: Recurrent anemia, GI Bleeding This is a 76-year-old female with multiple medical problems who presents to the emergency department today with weakness.? She reports progressive weakness over the past few weeks.? For 2 days she reports episodes of dizziness sweating and shortness of breath upon standing.? These episodes last approximately 15 seconds and improved when she sits down.? She has also noticed that her stools have become more dark and tarry in nature, she denies any bright red blood per rectum. She has had intermittent rectal bleeding since October. She has also had burning abdominal pain. She denies any nausea or vomiting. She does not drink alcohol and she denies the use of NSAIDs. Workup in the ED revealed anemia with H/H of 6.1/20.7. Troponin was 45.2. Her stool occult blood was positive. She was given a dose of IV protonix and two units of blood were ordered for transfusion. Patient complained of SOB on 10/16/20 and was hospitalized at [facility] x 4 days.? Diagnosed with PE and discharged on Eliquis and a baby aspirin. Patient has not noted progressive weakness with shortness of breath on exertion and intermittent chest heaviness for the past week - worse since 08/30/21. She has noted a sensation of flushing in the chest and abdomen at rest and leg weakness on walking. She admits to feeling weak and dizzy. Patient notes occasional heartburn related to spicy foods denies dysphagia. Her BMs have been dark, foul smelling and tarry. Pt takes oral iron daily. Intentional wt loss of 12 lbs. Pt has a long hx of IBS with diarrhea alternating with constipation and takes dicyclomine with partial relief. She tried taking a fibre supplement once daily without improvement in symptoms. Patient denies loud snoring or sleep apnea Denies problems with anesthesia in the past Pt is on chronic anticoagulation - last dose of Eliquis was on 09/01/21.. Patient denies known family history of colon polyps, colon cancer or other GI malignancies. Pt was hospitalized at [facility] with anemia in Nov, 2020 and seen at [facility] with anemia and transfused in 04/2021 This is her 3rd admission. Past evaluation included EGD, colonoscopy and capsule endoscopy with findings of lee's esophagus solitary esophageal varix, AVMs, internal hemorrhoids, diverticular disease, possible rectal varices and venous malformations IMAGING STUDIES:? 11/15/[address] SCAN SHOWED: Incompletely visualized pulmonary embolism in the right lower lobe pulmonary artery extending into segmental and subsegmental branches. Pulmonary embolic disease in the right middle lobe lobe arterial branch and in left lower lobe segmental and subsegmental arterial branches. These findings were relayed to Dr. Gonzalez at 1:26 PM on 11/15/2020. The patient has known pulmonary emboli and is currently being treated. ?No suspicious soft tissue mass or adenopathy. Stable infrarenal abdominal aorta with moderate atherosclerotic wall calcifications. Sigmoid colonic diverticulosis. Hepatomegaly. ? ENDOSCOPIC STUDIES: 12/20/20 CAPSULE STUDY SHOWED: Non bleeding AVM in the proximal small bowel at 1 hour and 3 min. 03/15/[address] BEAVERS SHOWED: Endoscopy Findings: esophageal varix suspected venous malformations Duodenum: Normal bulb and descending duodenum, jejunum was normal, distal most point was injected with elijah ink.? AVm seen on capsule not seen. 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 No esophagitis or Lee?s. small varix noted which collapsed with insufflation Stomach: Mild gastric erythema. Biopsies were obtained. Grade 2 flap valve on retroflexed examination of the cardia. Colonoscopy Ascending Colon ? single AVM noted measured about 6-8 mm. This was successfully ablated with APC, it ws non bleeding but friable when touched Rectum ? retroflexion w/ small to moderate sized internal hemorrhoids, grade II, prominent rectal veins noted Plan:NNAwait pathology results High fiber diet liver work up to check for cirrhosis, PVT after see her back at the office repeat colonoscopy in 10 yrs if health allows or earlier if clinically indicated Review of Systems Constitutional: Constitutional: Reports fatigue, Denies fever(s), Denies headache(s) and Reports weight loss Eyes: Eyes: Denies eye discharge and Denies irritation ENT: Reports Normal hearing present, Denies dysphagia, Denies dizziness and Denies headache(s) Cardiovascular: Cardiovascular: Reports chest pain, Denies leg edema and Reports dyspnea on exertion Respiratory: Respiratory: Denies cough, Reports dyspnea on exertion and Denies wheezing Gastrointestinal: Gastrointestinal: Denies abdominal pain, Reports melena, Denies change in bowel habits, Denies dysphagia and Denies heartburn Genitourinary: Genitourinary: Denies difficulty voiding and Denies dysuria Musculoskeletal: Musculoskeletal: Denies back pain and Denies arthralgias Integumentary/Breasts: Skin/Breast: Denies pruritus, Denies rash and Denies jaundice Neurologic: Reports Normal hearing present, Denies Abnormal speech present, Denies dizziness, Denies headache(s) and Denies seizure-like activity Psychiatric: Psychiatric: Denies anxiety, Denies depression and Denies panic attacks Endocrine: Endocrine: Denies cold intolerance, Reports fatigue, Denies flushing and Denies heat intolerance Hematologic/Lymphatic: Hematologic/Lymphatic: Denies easy bleeding and Denies easy bruising Allergic/Immunologic: Allergic/Immunologic: Denies wheezing PMFSH Past Medical History Medical History (Updated 02/23/22 @ 12:33 by Abida Barker PA-C) AAA (abdominal aortic aneurysm) (~2008) Adenocarcinoma of left lung (~2021) Anemia Aortic stenosis Arthritis Atypical migraine AVM (arteriovenous malformation) of colon Barretts esophagus Bilateral pulmonary embolism (~10/2020) Bleeding hemorrhoids CAD (coronary artery disease) COPD (chronic obstructive pulmonary disease) Depression Essential hypertension GERD without esophagitis GIB (gastrointestinal bleeding) History of blood transfusion Irritable bowel syndrome with both constipation and diarrhea Major depression in full remission Mixed dyslipidemia Nonrheumatic aortic (valve) stenosis Nonrheumatic mitral valve regurgitation Normocytic anemia Obesity On anticoagulant therapy (~10/2020) On beta ashleigh at home Pulmonary nodules Restless leg syndrome Transient cerebral ischemia Type 2 diabetes mellitus without complication, without long-term current use of insulin Vitamin B12 deficiency Functional capacity: independent ambulation Family History Family History Father HTN (hypertension) Myocardial infarction Hyperlipidemia Abdominal aneurysm Mother HTN (hypertension) Myocardial infarction Hyperlipidemia Brother Alzheimer's disease Substance abuse Sister Rheumatoid arthritis Brother Rheumatoid arthritis Maternal Aunt Diabetes mellitus Lung cancer Maternal Uncle Diabetes mellitus Son No problems noted. Daughter No problems noted. Surgical History Surgical History (Updated 02/23/22 @ 12:33 by Abida Barker PA-C) History of bilateral breast reduction surgery (~2010) History of colonoscopy (~2018) History of coronary artery bypass graft x 2 (~2017) History of esophagogastroduodenoscopy (EGD) (~2020) History of heart artery stent (~2007) History of hysterectomy History of lung biopsy (~2021) History of total right knee replacement (TKR) (~2015) S/P excision of lipoma (~2017) Social History Social History Household Members: Spouse Housing: House Do you presently have visiting nurse or other home services: No Alcohol intake: current Alcohol intake frequency: holidays/special occasions only Patient Tobacco Use Status: Former Tobacco user Quit Date: 1986 Tobacco use type: Cigarette Cigarette Packs Per Day: 2 Years Smoked: 30 e-Cigarette/Vaping Use: Never Used Second Hand Smoke Exposure: No Substance Use Type: Marijuana service: No Current occupational status: retired 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/ [employer] Meds Allergies Allergy/AdvReac Type Severity Reaction Status Date / Time sulfamethoxazole Allergy Severe Rash Verified 02/23/22 11:01 [From Bactrim] adhesive tape [ADHESIVE TAPE] Allergy Intermediate BLISTERS Verified 02/23/22 11:01 clonidine Allergy makes pt Verified 02/23/22 11:01 hulusinate adhesive AdvReac Severe BLISTERS Verified 02/23/22 11:01 gabapentin AdvReac Severe hallucinati Verified 02/23/22 11:01 on morphine AdvReac Severe hallucinati Verified 02/23/22 11:01 on glue AdvReac Severe BLISTERS Uncoded 02/23/22 11:01 Active Medications: Current Medications Acetaminophen (Acetaminophen 325 Mg Tablet) 650 mg PO Q6H PRN PRN Reason: Pain, Mild (Pain Scale 1-3) Atorvastatin Calcium (Atorvastatin Calcium 80 Mg Tablet) 80 mg PO DAILY [facility] Last Admin: 09/03/21 08:48 Dose: 80 mg Documented by: Bisacodyl (Bisacodyl 10 Mg Supp.Rect) 10 mg [place] DAILY PRN PRN Reason: Constipation Dextrose (Dextrose 50 % 25 Gm/50 Ml Vial) 25 gm IVPUSH Q15M PRN; Protocol PRN Reason: per Hypoglycemia Standing Ord. Folic Acid (Folic Acid 1 Mg Tablet) 1 mg PO DAILY [facility] Last Admin: 09/03/21 08:48 Dose: 1 mg Documented by: Glucose (Glucose Gel 15 Gm Gel..Gram.) 15 gm PO Q15M PRN; Protocol PRN Reason: per Hypoglycemia Standing Ord. Insulin Human Lispro (Insulin Lispro 100 Unit/Ml 3 Ml Vial) 0 unit SUBCUT QIDACHS [facility]; Protocol Last Admin: 09/03/21 08:04 Dose: Not Given Documented by: Melatonin (Melatonin 3 Mg Tablet) 3 mg PO BEDTIME PRN PRN Reason: Insomnia Metoprolol Succinate (Metoprolol Succinate Er 50 Mg Tab.Er.24h) 50 mg PO DAILY [facility]; Protocol Last Admin: 09/03/21 08:49 Dose: 50 mg Documented by: Multi-Ingred Cream/Lotion/Oil/Oint (Mineral Oil/Petrolatum,White 106 Gm Tube) 1 appl TOPICAL BID [facility]; Protocol Last Admin: 09/02/21 22:00 Dose: Not Given Documented by: Ondansetron HCl (Ondansetron Hcl 4 Mg/2 Ml Vial) 4 mg IVPUSH Q8H PRN PRN Reason: Nausea and Vomiting Pantoprazole Sodium (Pantoprazole Sodium 40 Mg/10 Ml Vial) 40 mg IVPUSH BID [facility] Last Admin: 09/03/21 08:49 Dose: 40 mg Documented by: Sertraline HCl (Sertraline Hcl 100 Mg Tablet) 100 mg PO DAILY [facility] Last Admin: 09/03/21 08:48 Dose: 100 mg Documented by: Sodium Chloride (0.9 % Sodium Chloride Flush 3 Ml Syringe) 3 ml IVFLUSH QSHIFT [facility] Last Admin: 09/03/21 08:48 Dose: 3 ml Documented by: Trazodone HCl (Trazodone Hcl 50 Mg Tablet) 50 mg PO BEDTIME [facility] Last Admin: 09/02/21 21:58 Dose: 50 mg Documented by: Verapamil HCl (Verapamil Hcl Sr 100 Mg Cap24h.Pct) 100 mg PO BEDTIME [facility]; Protocol Last Admin: 09/02/21 21:58 Dose: 100 mg Documented by: Home Medications Medication Instructions Recorded Confirmed Last Taken Type cholecalciferol (vitamin D3) 50 50 mcg PO DAILY 10/26/20 02/23/22 02/15/22 History mcg (2,000 unit) capsule ferrous fumarate 325 mg (106 mg 325 mg PO DAILY 10/26/20 02/23/22 02/15/22 History iron) tablet verapamil 100 mg capsule 24hr 100 mg PO BEDTIME 10/26/20 02/23/22 09/24/[address],ext.release acetaminophen 500 mg tablet 500 mg PO BID 11/07/20 02/23/22 02/15/22 History isosorbide mononitrate 30 mg 30 mg PO DAILY 10/02/21 02/23/22 02/15/22 History tablet,extended release 24 hr apixaban 5 mg tablet (Eliquis) 1 tab PO Q12H 02/19/22 02/23/22 Unknown History Physical Exam Vital Signs: Vital Signs: Last Vital Signs Temp 98.6 F 09/03/21 11:55 Pulse 72 09/03/21 11:55 Resp 20 09/03/21 11:55 BP 129/60 09/03/21 11:55 Pulse Ox 97 09/03/21 11:55 Body Mass Index 35.9 Const: General: healthy appearing and no acute distress Nutritional Appearance: obese Orientation/consciousness: patient oriented x3 L imitations: no limitations HENMT: Head: Yes normal to inspection Ears: hearing grossly normal bilaterally Mouth: Normal oral and palatal mucosa present Eyes: Sclerae: sclerae normal Pupils: Equal, round and reactive pupils present Neck: Neck: Yes normal visual inspection Chest: Chest palpation & inspection: normal inspection of the chest Resp: Effort & Inspection: normal respiratory effort Auscultation: clear to auscultation bilaterally Cardio: Palpation: normal PMI Rate: regular rate Rhythm: regular rhythm Heart sounds: S1 normal heart sound present, S2 normal heart sound present and Murmur heart sound present (3/6 systolic murmur at LSB) GI: Palpation (GI): Soft to palpation, nontender and No hepatosplenomegaly present Auscultation: normal bowel sounds Rectal Exam - Female: deferred Skin: General skin exam: no rashes or lesions noted Neuro: General: patient oriented x3, gait normal and moves all extremities Cranial nerves: Yes Equal, round and reactive pupils present and Yes Normal hearing present Speech: No Abnormal speech present Psych: Appearance: grossly normal Mental Status: mental status grossly nor mal Results Labs CBC & Chem 7: 09/05/21 06:13 09/05/21 06:13 Labs: Short CBC 09/02/21 09/03/21 Range/Units 14:22 05:40 WBC 5.6 6.3 (4.8-10.8) X10*3/uL Hgb 6.1 L* 9.0 L D (12.0-16.0) g/dl Hct 20.7 L* 28.5 L D (37.0-47.0) % Plt Count 251 256 (160-400) X10*3/uL BMP 09/02/21 09/03/21 14:22 05:40 Sodium 141 142 Potassium 4.4 3.9 Chloride 106 107 Carbon Dioxide 24 23 BUN 17 H 13 Creatinine 0.79 0.86 Calcium 9.5 9.2 Liver Function 09/02/21 Range/Units 14:22 Total Bilirubin 0.2 (0.0-1.0) mg/dL AST 16 (5-31) U/L ALT 14 (0-31) U/L Alkaline Phosphatase 54 (39-117) U/L Albumin 4.0 (3.5-5.0) g/dL Assessment and Plan (1) GERD without esophagitis: Status: Acute (2) Normocytic anemia: Status: Acute Plan ?75 YF with DM, Htn, CAD, hx of PE on Eliquis admitted with acute on chronic anemia and dark tarry stools.? She has a long history of IBS with diarrhea and constipation. Past evaluation included EGD, colonoscopy x 2 and capsule endoscopy with findings of lee's esophagus solitary esophageal varix, AVMs, internal hemorrhoids, diverticular disease, possible rectal varices and venous malformations Stool occult blood was positive. Appropriate increase in H & H to 9 & 28 after transfusion of 2 U PRBC Pt likely has intermittent GI blood loss from small bowel AVMs. RECOMMENDATIONS: 1.? Repeat CBC in the am 2. Long discussion with the patient, her daughter and regarding pot ential bleeding source and further johnson with repeat EGD and Capsule Endoscopy.? Pt is willing to proceed with EGD for further evaluation. If no bleeding source is detected, she prefers to manage her anemia with checking CBC on a monthly basis and prn blood transfusions and not undergo additional testing. I will schedule her for an EGD with pediatric colonoscope on 09/04/21 for further evaluation of anemia - she will need to be bridged with Enoxaprin until EGD is performed.? OK for the patient to resume a diabetic diet today and remain NPO after midnight tonight. 3. Pt and daughter are anxious to get PET scan schedule for evaluation of her lung nodule. . Procedures Date of Service Date of Service: 09/03/21
[2021-09-03] MEDS: Mineral Oil/Petrolatum,White 106 GM Tube 1 APPL TOPICAL ×2 (12:31→20:36)
[2021-09-03 16:02] LABS: Glucose, Whole Blood 85 mg/dL (60-115)
--- NOTE | 2021-09-03 16:03 | MHC.CM.PN ---
CM MET WITH PT AND DAUGHTER WHO WAS AT BEDSIDE. PT REPORTS SHE RESIDES WITH HER AND IS INDEPENDENT WITH CARE SHE REPORTS SHE HAS A WALKER BUT DOES NOT USE ANY DME PT HAS NO HOME OR COMMUNITY SERVICES PT REPORTS SHE HAS A HCP NAMING HER DAUGHTER, JUAN RAMON, [place]. COPY NOT ON FILE. PCP IS KALYANI THOMAS DELIVERED CURRENT DC PLAN IS HOME WITH NO SERVICES FAMILY TO TRANSPORT
[2021-09-03] MEDS: bisacodyL 10 MG SUPP.RECT PR (16:05)
[2021-09-03 19:39] LABS: Glucose, Whole Blood 140 mg/dL (60-115)
[2021-09-03] MEDS: traZODone HCL 50 MG TABLET PO (20:33)
[2021-09-04] VITALS (11 sets, daily range): BP systolic 94–162; BP diastolic 46–74; PULSE 64–75; RESP 12–20; TEMP 36.1–37; O2SAT 95–99
--- NOTE | 2021-09-04 | ECG_ITS ---
Test Reason : abnormal ekg Blood Pressure : / mmHG Vent. Rate : 068 BPM Atrial Rate : 068 BPM P-R Int : 166 ms QRS Dur : 082 ms QT Int : 432 ms P-R-T Axes : 035 -04 016 degrees QTc Int : 459 ms Normal sinus rhythm Nonspecific ST and T wave abnormality Abnormal ECG No significant changes seen Referred By: Lyndsey Llanos Electronically Signed By:ANTHONY AYERS MD
[2021-09-04] MEDS: ALPRAZolam 0.25 MG TABLET PO (01:32)
[2021-09-04 06:53] LABS: Hematocrit 27.9 % (37.0-47.0); Hemoglobin 8.9 g/dl (12.0-16.0)
[2021-09-04 07:29] LABS: Glucose, Whole Blood 128 mg/dL (60-115)
[2021-09-04] MEDS: Atorvastatin Calcium 80 MG TABLET PO (10:11)
[2021-09-04] MEDS: 0.9 % Sodium Chloride Flush 3 ML SYRINGE IVFLUSH ×3 (10:11→20:29)
[2021-09-04] MEDS: Pantoprazole Sodium 40 MG/10 ML VIAL IVPUSH ×2 (10:11→20:30)
[2021-09-04] MEDS: Sertraline HCL 100 MG TABLET PO (10:12)
[2021-09-04] MEDS: Folic Acid 1 MG TABLET PO (10:12)
[2021-09-04] MEDS: Acetaminophen 325 MG TABLET 650 MG PO (10:12)
[2021-09-04] MEDS: Mineral Oil/Petrolatum,White 106 GM Tube 1 APPL TOPICAL ×2 (10:13→20:29)
[2021-09-04] MEDS: Metoprolol Succinate ER 50 MG TAB.ER.24H PO (10:13)
[2021-09-04 11:06] LABS: Glucose, Whole Blood 127 mg/dL (60-115)
--- NOTE | 2021-09-04 11:53 | P.PNIM_ITS ---
Subjective Subjective Date of Service: 09/04/21 Interval History: anemia Review of Systems Denies any chest pain shortness breath or abdominal pain or fever or chills Had episode of headache was given Tylenol. She felt anxious overnight otherwise feeling better now Physical Exam Vital Signs: Vital Signs: Last Vital Signs Temp 98.2 F 09/04/21 10:54 Pulse 70 09/04/21 10:54 Resp 18 09/04/21 10:54 BP 124/59 L 09/04/21 10:54 Pulse Ox 96 09/04/21 10:54 Body Mass Index 35.9 Appearance: Alert.? Oriented X3.? not in distress.? Eyes: Pupils equal, round and reactive to light.? Sclera nonicteric.? cvs: rrr, [id number] , no murmur res: clear to auscultation ,no rhonchii or wheezing abd: no rebound or guarding ,nt, bs present. ext pulses present , no cyanosis ,Gait well balanced well coordinated , no leg pains or swelling neuro: axo3 , nonfocal. Objective Data Active Medications Acetaminophen (Acetaminophen 325 Mg Tablet) 650 mg PO Q6H PRN PRN Reason: Pain, Mild (Pain Scale 1-3) Atorvastatin Calcium (Atorvastatin Calcium 80 Mg Tablet) 80 mg PO DAILY [facility] Last Admin: 09/04/21 10:11 Dose: 80 mg Documented by: ANDERSON Bisacodyl (Bisacodyl 10 Mg Supp.Rect) 10 mg [place] DAILY PRN PRN Reason: Constipation Last Admin: 09/03/21 16:05 Dose: 10 mg Documented by: HAYLEE Dextrose (Dextrose 50 % 25 Gm/50 Ml Vial) 25 gm IVPUSH Q15M PRN; Protocol PRN Reason: per Hypoglycemia Standing Ord. Folic Acid (Folic Acid 1 Mg Tablet) 1 mg PO DAILY [facility] Last Admin: 09/04/21 10:12 Dose: 1 mg Documented by: ANDERSON Glucose (Glucose Gel 15 Gm Gel..Gram.) 15 gm PO Q15M PRN; Protocol PRN Reason: per Hypoglycemia Standing Ord. Insulin Human Lispro (Insulin Lispro 100 Unit/Ml 3 Ml Vial) 0 unit SUBCUT QIDACHS [facility]; Protocol Last Admin: 09/04/21 11:29 Dose: Not Given Documented by: ANDERSON Non-Admin Reason: NPO Melatonin (Melatonin 3 Mg Tablet) 3 mg PO BEDTIME PRN PRN Reason: Insomnia Metoprolol Succinate (Metoprolol Succinate Er 50 Mg Tab.Er.24h) 50 mg PO DAILY [facility]; Protocol Last Admin: 09/04/21 10:13 Dose: 50 mg Documented by: ANDERSON Multi-Ingred Cream/Lotion/Oil/Oint (Mineral Oil/Petrolatum,White 106 Gm Tube) 1 appl TOPICAL BID [facility]; Protocol Last Admin: 09/04/21 10:13 Dose: 1 appl Documented by: ANDERSON Ondansetron HCl (Ondansetron Hcl 4 Mg/2 Ml Vial) 4 mg IVPUSH Q8H PRN PRN Reason: Nausea and Vomiting Pantoprazole Sodium (Pantoprazole Sodium 40 Mg/10 Ml Vial) 40 mg IVPUSH BID [facility] Last Admin: 09/04/21 10:11 Dose: 40 mg Documented by: ANDERSON Sertraline HCl (Sertraline Hcl 100 Mg Tablet) 100 mg PO DAILY [facility] Last Admin: 09/04/21 10:12 Dose: 100 mg Documented by: ANDERSON Sodium Chloride (0.9 % Sodium Chloride Flush 3 Ml Syringe) 3 ml IVFLUSH QSHIFT [facility] Last Admin: 09/04/21 10:11 Dose: 3 ml Documented by: ANDERSON Trazodone HCl (Trazodone Hcl 50 Mg Tablet) 50 mg PO BEDTIME [facility] Last Admin: 09/03/21 20:33 Dose: 50 mg Documented by: MONALISA Verapamil HCl (Verapamil Hcl Sr 100 Mg Cap24h.Pct) 100 mg PO BEDTIME [facility]; Protocol Last Admin: 09/03/21 20:33 Dose: 100 mg Documented by: MONALISA Labs CBC & Chem 7: 09/04/21 06:06 09/03/21 05:40 Labs: Laboratory Results - last 24 hr 09/03/21 09/03/21 09/04/21 15:58 19:35 07:11 POC Glucose 85 140 H 128 H 09/04/21 10:55 POC Glucose 127 H Assessment and Plan (1) Anemia: Status: Chronic Assessment and Plan: 75-year-old female with history of CAD s/p CABG, COPD, lung nodule, DM, COPD PE on Eliquis, h/o GI bleeding among others who presents to the emergency depart ment with complaints of weakness and dizziness found to have anemia 1.Acute on chronic anemia secondary to GI bleeding/acute blood loss has multiple possible sources of bleeding including esophageal and rectal AVMs, esopageal and rectal varices transfusion of 2U rbc started in ED h/h improved to 8.9/27.9 moniter CBC continue IV PPI,Hold Eliquis,clear liquid diet. GI consult-going for egd. 2.Elevated troponin mostly likely secondary to demand from anemia ?trop flat ekg similar to previous no chest pain added echo.. 3.h/o CAD-continue statin, BB asa on hold due to anemia above. 4.h/o PE-Eliquis on hold for GI bleeding 5.DM-SSI, POCs 6.HTN-continue metoprolol, diltiazem -hold lisinopril 7.mood-continue sertraline Quality Stroke Does the patient have a stroke diagnosis?: No VTE Prior VTE?: Yes VTE Risk Level:: Medical - moderate - high VTE Device Contraindication: N/A - Device Ordered VTE Drug Contraindication: Treatment Not Indicated
--- NOTE | 2021-09-04 12:15 | P.CONAN_ITS ---
[facility] Active Problems Active Problems: All Active Problems (Updated 09/02/21 @ 15:20 by Shiraz ruiz MD) Vitamin B12 deficiency (Acute) Anemia (Chronic) Chest pain (Acute) Anemia (Acute) Macrocytic anemia (Acute) Depression (Acute) Bleeding hemorrhoids (Acute) Pulmonary nodules (Acute) Skin lesion of chest wall (Acute) Bilateral pulmonary embolism (Acute) Mixed dyslipidemia (Acute) Macrocytic anemia with vitamin B12 deficiency (Acute) Left upper lobe pulmonary nodule (Acute) Restless leg syndrome (Acute) Major depression in full remission (Acute) GERD without esophagitis (Acute) CAD (coronary artery disease) (Acute) Essential hypertension (Acute) Type 2 diabetes mellitus without complication, without long-term current use of insulin (Acute) Past Medical History Medical History AAA (abdominal aortic aneurysm) Anemia Arthritis Barretts esophagus Bilateral pulmonary embolism Bleeding hemorrhoids CAD (coronary artery disease) COPD (chronic obstructive pulmonary disease) Depression Essential hypertension GERD without esophagitis GIB (gastrointestinal bleeding) History of abdominal aortic aneurysm (AAA) Irritable bowel syndrome with both constipation and diarrhea Left upper lobe pulmonary nodule Macrocytic anemia Macrocytic anemia with vitamin B12 deficiency Major depression in full remission Mixed dyslipidemia On anticoagulant therapy On beta ashleigh at home Pulmonary nodules Restless leg syndrome Skin lesion of chest wall Type 2 diabetes mellitus without complication, without long-term current use of insulin Vitamin B12 deficiency Functional capacity: independent ambulation Family History Family History Father HTN (hypertension) Myocardial infarction Hyperlipidemia Abdominal aneurysm Mother HTN (hypertension) Myocardial infarction Hyperlipidemia Brother Alzheimer's disease Substance abuse Sister Rheumatoid arthritis Brother Rheumatoid arthritis Maternal Aunt Diabetes mellitus Lung cancer Maternal Uncle Diabetes mellitus Son No problems noted. Daughter No problems noted. Family history of problems with anesthesia: No Surgical History Surgical History History of angioplasty History of bilateral breast reduction surgery History of heart artery stent History of lymphoma History of total right knee replacement (TKR) Hx of colonoscopy Hx of esophagogastroduodenoscopy Hx of hysterectomy S/P CABG x 2 S/P excision of lipoma History of Problems with Anesthesia: No Social History Social History Household Members: Spouse Housing: House Do you presently have visiting nurse or other home services: No Alcohol intake: current Alcohol intake frequency: holidays/special occasions only Patient Tobacco Use Status: Former Tobacco user Tobacco use type: Cigarette Cigarette Packs Per Day: 2 Years Smoked: 30 e-Cigarette/Vaping Use: Never Used Second Hand Smoke Exposure: No Use of substances other than those prescribed or required for medical reasons: Yes Substance Use Type: Marijuana Currently Displaying Signs/Symptoms of Drug Intoxication Withdrawal: No Have you been hit, kicked, punched, or otherwise hurt by someone within the past year? If so, by whom?: No Do you feel safe in your current relationship?: Yes Is there a partner from a previous relationship who is making you feel unsafe now?: No Are you made to feel afraid or neglected: No Are you DNR?: No Advance Directives: No Do you have thoughts of harming others: None Do you have a plan to hurt others: No Plan Recently lost weight without trying: No Eating poorly because of decreased appetite: No Nutrition Risks: No Nutritional Risk Patient : No : No Poor oral hygiene: No service: No Current occupational status: retired [id number] Allergies Allergy/AdvReac Type Severity Reaction Status Date / Time Sulfa (Sulfonamide Allergy Severe Rash Verified 08/21/21 13:41 Antibiotics) sulfamethoxazole Allergy Severe Rash Verified 08/21/21 13:41 [From Bactrim] trimethoprim [From Bactrim] Allergy Severe Rash Verified 08/21/21 13:41 adhesive tape [ADHESIVE TAPE] Allergy Intermediate BLISTERS Verified 08/21/21 13:41 clonidine Allergy makes pt Verified 08/21/21 13:41 hulusinate gabapentin AdvReac Severe hallucinati Verified 08/21/21 13:41 on morphine AdvReac Severe hallucinati Verified 08/21/21 13:41 on Active Medications: Current Medications Acetaminophen (Acetaminophen 325 Mg Tablet) 650 mg PO Q6H PRN PRN Reason: Pain, Mild (Pain Scale 1-3) Atorvastatin Calcium (Atorvastatin Calcium 80 Mg Tablet) 80 mg PO DAILY [facility] Last Admin: 09/04/21 10:11 Dose: 80 mg Documented by: Bisacodyl (Bisacodyl 10 Mg Supp.Rect) 10 mg VT DAILY PRN PRN Reason: Constipation Last Admin: 09/03/21 16:05 Dose: 10 mg Documented by: Dextrose (Dextrose 50 % 25 Gm/50 Ml Vial) 25 gm IVPUSH Q15M PRN; Protocol PRN Reason: per Hypoglycemia Standing Ord. Folic Acid (Folic Acid 1 Mg Tablet) 1 mg PO DAILY [facility] Last Admin: 09/04/21 10:12 Dose: 1 mg Documented by: Glucose (Glucose Gel 15 Gm Gel..Gram.) 15 gm PO Q15M PRN; Protocol PRN Reason: per Hypoglycemia Standing Ord. Insulin Human Lispro (Insulin Lispro 100 Unit/Ml 3 Ml Vial) 0 unit SUBCUT QIDACHS [facility]; Protocol Last Admin: 09/04/21 11:29 Dose: Not Given Documented by: Melatonin (Melatonin 3 Mg Tablet) 3 mg PO BEDTIME PRN PRN Reason: Insomnia Metoprolol Succinate (Metoprolol Succinate Er 50 Mg Tab.Er.24h) 50 mg PO DAILY [facility]; Protocol Last Admin: 09/04/21 10:13 Dose: 50 mg Documented by: Multi-Ingred Cream/Lotion/Oil/Oint (Mineral Oil/Petrolatum,White 106 Gm Tube) 1 appl TOPICAL BID [facility]; Protocol Last Admin: 09/04/21 10:13 Dose: 1 appl Documented by: Ondansetron HCl (Ondansetron Hcl 4 Mg/2 Ml Vial) 4 mg IVPUSH Q8H PRN PRN Reason: Nausea and Vomiting Pantoprazole Sodium (Pantoprazole Sodium 40 Mg/10 Ml Vial) 40 mg IVPUSH BID [facility] Last Admin: 09/04/21 10:11 Dose: 40 mg Documented by: Sertraline HCl (Sertraline Hcl 100 Mg Tablet) 100 mg PO DAILY [facility] Last Admin: 09/04/21 10:12 Dose: 100 mg Documented by: Sodium Chloride (0.9 % Sodium Chloride Flush 3 Ml Syringe) 3 ml IVFLUSH QSHIFT [facility] Last Admin: 09/04/21 10:11 Dose: 3 ml Documented by: Trazodone HCl (Trazodone Hcl 50 Mg Tablet) 50 mg PO BEDTIME [facility] Last Admin: 09/03/21 20:33 Dose: 50 mg Documented by: Verapamil HCl (Verapamil Hcl Sr 100 Mg Cap24h.Pct) 100 mg PO BEDTIME [facility]; Protocol Last Admin: 09/03/21 20:33 Dose: 100 mg Documented by: Home Medications Medication Instructions Recorded Confirmed Last Taken Type aspirin 81 mg tablet,delayed 81 mg PO DAILY 10/26/20 06/09/21 12/08/20 History release (Adult Aspirin Regimen) cholecalciferol (vitamin D3) 50 50 mcg PO DAILY 10/26/20 06/09/21 12/08/20 History mcg (2,000 unit) capsule ferrous fumarate 325 mg (106 mg 325 mg PO DAILY 10/26/20 06/09/21 12/08/20 History iron) tablet glipizide 5 mg tablet 5 mg PO BID 10/26/20 06/09/21 12/08/20 History metformin 500 mg tablet 500 mg PO DAILY 10/26/20 06/09/21 12/08/20 History verapamil 100 mg capsule 24hr 100 mg PO BEDTIME 10/26/20 09/02/21 12/07/[address],ext.release acetaminophen 500 mg tablet 500 mg PO Q6H PRN 11/07/20 06/09/21 12/08/20 History clotrimazole 2 % vaginal cream 1 appful VAGINAL BEDTIME 12/28/20 06/09/21 Unknown History Exam Exam Date and Time: September 04, 2021 1215 Height,Weight and Vital Signs: Height 5 ft Weight 83.461 kg Last Vital Signs Temp 97.5 F 09/04/21 12:02 Pulse 73 09/04/21 12:02 Resp 18 09/04/21 12:02 BP 162/74 H 09/04/21 12:02 Pulse Ox 95 09/04/21 12:02 Pertinent Lab Results Pertinent Lab Results: Laboratory Tests 09/02/21 09/02/21 09/02/21 14:22 14:22 14:22 WBC 5.6 RBC 2.00 L Hgb 6.1 L* Hct 20.7 L* MCV 103.5 H MCH 30.5 MCHC 29.5 L RDW 16.2 H Plt Count 251 MPV 9.9 Immature Gran % (Auto) 0.5 H Neut % (Auto) 61.4 Lymph % (Auto) 26.8 [place] % (Auto) 9.7 Eos % (Auto) 1.4 Baso % (Auto) 0.2 Lymph # (Auto) 1.5 [place] # (Auto) 0.5 Eos # (Auto) 0.1 Baso # (Auto) 0.0 Abs Immat Gran (auto) 0.03 Absolute Neuts (auto) 3.4 Absolute Nucleated RBC 0.020 H Nucleated RBC % (auto) 0.4 H PT 12.9 INR 1.1 APTT 21.4 L D Sodium 141 Potassium 4.4 Chloride 106 Carbon Dioxide 24 Anion Gap 15 BUN 17 H Creatinine 0.79 Estim Creat Clear Calc 59.8 Estimated GFR > 60 POC Glucose Random Glucose 133 H Calcium 9.5 Total Bilirubin 0.2 AST 16 ALT 14 Alkaline Phosphatase 54 Troponin I High Sens Total Protein 6.6 Albumin 4.0 Lipase 36 Stool Occult Blood COVID-19 ([facility]) COVID-19 Clin Com Blood Type Antibody Screen Crossmatch 09/02/21 09/02/21 09/02/21 14:22 14:22 14:32 WBC RBC Hgb Hct MCV MCH MCHC RDW Plt Count MPV Immature Gran % (Auto) Neut % (Auto) Lymph % (Auto) [place] % (Auto) Eos % (Auto) Baso % (Auto) Lymph # (Auto) [place] # (Auto) Eos # (Auto) Baso # (Auto) Abs Immat Gran (auto) Absolute Neuts (auto) Absolute Nucleated RBC Nucleated RBC % (auto) PT INR APTT Sodium Potassium Chloride Carbon Dioxide Anion Gap BUN Creatinine Estim Creat Clear Calc Estimated GFR POC Glucose Random Glucose Calcium Total Bilirubin AST ALT Alkaline Phosphatase Troponin I High Sens 45.2 H* D Total Protein Albumin Lipase Stool Occult Blood POSITIVE COVID-19 ([facility]) COVID-19 [facility] Com Blood Type A Positive Antibody Screen NEGATIVE Crossmatch See Detail 09/02/21 09/02/21 09/02/21 17:41 17:42 18:23 WBC RBC Hgb Hct MCV MCH MCHC RDW Plt Count MPV Immature Gran % (Auto) Neut % (Auto) Lymph % (Auto) [place] % (Auto) Eos % (Auto) Baso % (Auto) Lymph # (Auto) [place] # (Auto) Eos # (Auto) Baso # (Auto) Abs Immat Gran (auto) Absolute Neuts (auto) Absolute Nucleated RBC Nucleated RBC % (auto) PT INR APTT Sodium Potassium Chloride Carbon Dioxide Anion Gap BUN Creatinine Estim Creat Clear Calc Estimated GFR POC Glucose 103 Random Glucose Calcium Total Bilirubin AST ALT Alkaline Phosphatase Troponin I High Sens 39.4 H* Total Protein Albumin Lipase Stool Occult Blood COVID-19 ([facility]) Negative COVID-19 Clin Com See Note Blood Type Antibody Screen Crossmatch 09/02/21 09/03/21 09/03/21 19:38 05:40 05:40 WBC 6.3 RBC 3.01 L D Hgb 9.0 L D Hct 28.5 L D MCV 94.7 D MCH 29.9 MCHC 31.6 RDW 17.4 H Plt Count 256 MPV 10.0 Immature Gran % (Auto) 0.5 H Neut % (Auto) 71.5 Lymph % (Auto) 17.4 L [place] % (Auto) 8.7 Eos % (Auto) 1.6 Baso % (Auto) 0.3 Lymph # (Auto) 1.1 L [place] # (Auto) 0.6 Eos # (Auto) 0.1 Baso # (Auto) 0.0 Abs Immat Gran (auto) 0.03 Absolute Neuts (auto) 4.5 Absolute Nucleated RBC 0.000 Nucleated RBC % (auto) 0.0 PT INR APTT Sodium 142 Potassium 3.9 Chloride 107 Carbon Dioxide 23 Anion Gap 16 BUN 13 Creatinine 0.86 Estim Creat Clear Calc 54.9 Estimated GFR > 60 POC Glucose 159 H Random Glucose 147 H Calcium 9.2 Total Bilirubin AST ALT Alkaline Phosphatase Troponin I High Sens Total Protein Albumin Lipase Stool Occult Blood COVID-19 ([facility]) COVID-[employer] Com Blood Type Antibody Screen Crossmatch 09/03/21 09/03/21 09/03/21 07:42 11:27 15:58 WBC RBC Hgb Hct MCV MCH MCHC RDW Plt Count MPV Immature Gran % (Auto) Neut % (Auto) Lymph % (Auto) [place] % (Auto) Eos % (Auto) Baso % (Auto) Lymph # (Auto) [place] # (Auto) Eos # (Auto) Baso # (Auto) Abs Immat Gran (auto) Absolute Neuts (auto) Absolute Nucleated RBC Nucleated RBC % (auto) PT INR APTT Sodium Potassium Chloride Carbon Dioxide Anion Gap BUN Creatinine Estim Creat Clear Calc Estimated GFR POC Glucose 142 H 188 H 85 Random Glucose Calcium Total Bilirubin AST ALT Alkaline Phosphatase Troponin I High Sens Total Protein Albumin Lipase Stool Occult Blood COVID-19 ([facility]) COVID-[employer] Com Blood Type Antibody Screen Crossmatch 09/03/21 09/04/21 09/04/21 19:35 06:06 07:11 WBC RBC Hgb 8.9 L Hct 27.9 L MCV MCH MCHC RDW Plt Count MPV Immature Gran % (Auto) Neut % (Auto) Lymph % (Auto) [place] % (Auto) Eos % (Auto) Baso % (Auto) Lymph # (Auto) [place] # (Auto) Eos # (Auto) Baso # (Auto) Abs Immat Gran (auto) Absolute Neuts (auto) Absolute Nucleated RBC Nucleated RBC % (auto) PT INR APTT Sodium Potassium Chloride Carbon Dioxide Anion Gap BUN Creatinine Estim Creat Clear Calc Estimated GFR POC Glucose 140 H 128 H Random Glucose Calcium Total Bilirubin AST ALT Alkaline Phosphatase Troponin I High Sens Total Protein Albumin Lipase Stool Occult Blood COVID-19 ([facility]) COVID-[employer] Blood Type Antibody Screen Crossmatch 09/04/21 10:55 WBC RBC Hgb Hct MCV MCH MCHC RDW Plt Count MPV Immature Gran % (Auto) Neut % (Auto) Lymph % (Auto) [place] % (Auto) Eos % (Auto) Baso % (Auto) Lymph # (Auto) [place] # (Auto) Eos # (Auto) Baso # (Auto) Abs Immat Gran (auto) Absolute Neuts (auto) Absolute Nucleated RBC Nucleated RBC % (auto) PT INR APTT Sodium Potassium Chloride Carbon Dioxide Anion Gap BUN Creatinine Estim Creat Clear Calc Estimated GFR POC Glucose 127 H Random Glucose Calcium Total Bilirubin AST ALT Alkaline Phosphatase Troponin I High Sens Total Protein Albumin Lipase Stool Occult Blood COVID-19 ([facility]) COVID-19 [employer] Blood Type Antibody Screen Crossmatch Airway Mallampati Class: II TM Dist: >3cm Neck ROM: Full Denture: Upper and Lower Heart: rrr Lungs: cta Assessment and Plan Assessment Anesthesia Assessment: Anesthesia Plan Discussed and Chart Reviewed Final Anesthetic Review Family History of Problems with Anesthesia: No History of Problems with Anesthesia: No NPO: Yes ASA Class: III Final Preanesthetic Review: No Changes in Pt Med Stat, Meds/Allgs Chart Reviewed and Consent Obtained/Reviewed Patient Risk: Intermediate Procedure Risk: Intermediate Anesthetic Plan Anesthetic Plan: MAC: Disposition: Standard PACU
--- NOTE | 2021-09-04 12:24 | MHC.CM.PN ---
per rounds pt to be scoped pt expected to dc tati
--- NOTE | 2021-09-04 12:44 | PM.OP ---
Brief Operative Note Date of Service: 09/04/21 Pre-op diagnosis: acute on chronic anemia, recurrent GIB Post-op diagnosis: other (Small esophageal varix, gastritis) Procedure: FLEXIBLE TRANSORAL UPPER GASTROINTESTINAL ENDOSCOPY WITH SMALL BOWEL ENTEROSCOPY Consent: Indications for the procedure and potential complications of bleeding, perforation, reaction to medications and missed diagnosis were discussed with the patient and informed consent was obtained. Instrument: Olympus GIF H 190 mid size upper endoscope & Olympus PCF variable stiffness pediatric colonoscope Monitoring: Vital signs and clinical assessment, continuous EKG monitoring, Pulse oximetry, Carbon Dioxide monitoring and blood pressure monitoring were done throughout the procedure. Procedure: The patient was placed in the left lateral decubitis position and pre-procedure medications were administered and a bite block was placed. The endoscope was inserted into the mouth and advanced under direct vision to the third part of duodenum. A careful inspection was made as the upper endoscope was withdrawn including a retroflexed examination of the proximal stomach; The upper endoscope was removed and a pediatric colonoscope was advanced to the hilt of the colonoscope into the proximal jejunum Findings and interventions are described below. Findings: Larynx: Normal Esophagus: GE junction at 36 cms. A single grade 2 varix noted in the distal esophagus without high risk stigmata for bleeding. No esophagitis or Vicente's. Stomach: Mild gastric erythema. Grade 2 flap valve on retroflexed examination of the cardia. Duodenum/proximal jejunum: Normal bulb, descending duodenum and proximal jejunum. No AVM visualized. Intervention: None Impression and Post Procedure Diagnosis: Endoscopy Findings: ESOPHAGUS: GE junction at 36 cms. A single grade 2 varix noted in the distal esophagus without high risk stigmata for bleeding. No esophagitis or Vicente's. STOMACH: Gastritis DUODENUM/PROXIMAL JEJUNUM: Normal bulb, descending duodenum and proximal jejunum. No AVM visualized. Plan: OK to resume Eliquis today. Pt prefers to manage her anemia with monitoring CBC on a monthly basis and prn blood transfusions and not undergo additional testing. She is willing to reconsider if frequency of blood transfusions increases (Transfused 3 times in 2020). Patient will be followed with CBC and ferritin every month. Above findings were reviewed with the patient. Surgeon: Isabel Galvin MD Anesthesia: MAC (Lizzy Malave CRNA) Was an Duplicate Maker used for this Procedure?: Yes Duplicate Maker: Fely Ko Estimated blood loss (mL): 0 Pathology: none sent Condition: stable Disposition: PACU
--- NOTE | 2021-09-04 13:44 | P.OP_ITS ---
Operative Note Operative Note Date of Service: 09/04/21 Narrative: Pre-op diagnosis:?acute on chronic anemia, recurrent GIB Post-op diagnosis:?other (Small esophageal varix, gastritis) Procedure:?FLEXIBLE TRANSORAL UPPER GASTROINTESTINAL ENDOSCOPY WITH SMALL BOWEL ENTEROSCOPY Consent:?Indications for the procedure and potential complications of bleeding, perforation, reaction to medications and missed diagnosis were discussed with the patient and informed consent was obtained. Instrument:?Olympus GIF H 190 mid size upper endoscope & Olympus PCF variable stiffness pediatric colonoscope Monitoring: Vital signs and clinical assessment, continuous EKG monitoring, Pulse oximetry, Carbon Dioxide monitoring and blood pressure monitoring were done throughout the procedure. Procedure:?The patient was placed in the left lateral decubitis position and pre-procedure medications were administered and a bite block was placed. The endoscope was inserted into the mouth and advanced under direct vision to the third part of duodenum. A careful inspection was made as the upper endoscope was withdrawn including a retroflexed examination of the proximal stomach; The upper endoscope was removed and a pediatric colonoscope was advanced to the hilt of the colonoscope into the proximal jejunum Findings and interventions are described below. Findings: Larynx:? Normal Esophagus: GE junction at 36 cms. A single grade 2 varix noted in the distal esophagus without high risk stigmata for bleeding.? No esophagitis or Vicente's. Stomach: Mild gastric erythema. Grade 2 flap valve on retroflexed examination of the cardia. Duodenum/proximal jejunum: Normal bulb, descending duodenum and proximal jejunum.? No AVM visualized. Intervention: None Impression and Post Procedure Diagnosis: Endoscopy Findings: ESOPHAGUS: GE junction at 36 cms. A single grade 2 varix noted in the distal esophagus without high risk stigmata for bleeding.? No esophagitis or Vicente's. STOMACH: Gastritis DUODENUM/PROXIMAL JEJUNUM: Normal bulb, descending duodenum and proximal jejunum .? No AVM visualized. Plan: OK to resume Eliquis today. Pt prefers to manage her anemia with monitoring CBC on a monthly basis and prn blood transfusions and not undergo additional testing.? She is willing to reconsider if frequency of blood transfusions increases (Transfused 3 times in 2020). Patient will be followed with CBC and ferritin every month. Above findings were reviewed with the patient. Surgeon:?Isabel Galvin MD Anesthesia:?MAC (Lizzy Malave CRNA) Was an Tent Worker used for this Procedure?:?Yes Tent Worker:?Fely Ko Estimated blood loss (mL):?0 Pathology:?none sent Condition:?stable Disposition:?PACU
[2021-09-04] MEDS: Apixaban 5 MG TABLET PO ×2 (15:25→20:30)
[2021-09-04 16:18] LABS: Glucose, Whole Blood 145 mg/dL (60-115)
[2021-09-04 20:17] LABS: Glucose, Whole Blood 134 mg/dL (60-115)
[2021-09-04] MEDS: traZODone HCL 50 MG TABLET PO (20:30)
[2021-09-05 04:00] VITALS: BP 111/55; PULSE 92; RESP 18; TEMP 37; O2SAT 99
[2021-09-05 06:49] LABS: Anion Gap 12 (12-20); Blood Urea Nitrogen 15 mg/dL (9-16); Calcium 9.2 mg/dL (8.4-10.2); Carbon Dioxide 26 mmol/L (22-29); Chloride 108 mmol/L (96-108); Creatinine Clr Calc Pharmacy 53.1; Estimated Glomerular Filt Rate > 60; Glucose Random 152 mg/dL (60-115); Potassium 4.3 mmol/L (3.3-5.1); Sodium 142 mmol/L (135-145)
--- NOTE | 2021-09-05 06:50 | HO.POSTANES ---
Post Anesthesia Evaluation Post Anesthesia Evaluation Vital Signs: Vital Signs Temp Pulse Resp BP Pulse Ox 09/05/21 04:00 98.6 F 92 18 111/55 L 99 09/04/21 23:31 97.8 F 68 18 133/68 97 09/04/21 20:30 70 126/70 09/04/21 19:26 96.9 F 75 20 132/65 97 Anesthesia: Monitored Mental Status: Awake Pain Control: Satisfactory Nausea/Vomiting: None Hydration: Adequate Anesthesia-Related Issues: No Anes. Related Issues
[2021-09-05 06:52] LABS: Hematocrit 29.4 % (37.0-47.0); Hemoglobin 9.2 g/dl (12.0-16.0); Mean Corpuscular HGB Conc 31.3 g/dl (31.0-35.0); Mean Corpuscular Hemoglobin 30.2 pg (27.0-33.0); Mean Corpuscular Volume 96.4 fL (80.0-98.0); Mean Platelet Volume 10.1 fL (9.4-12.3); Platelet Count 244 X10*3/uL (160-400); Red Blood Count 3.05 X10*6/uL (4.20-5.50); Red Cell Distribution Width 16.6 % (11.0-16.0); White Blood Count 5.3 X10*3/uL (4.8-10.8)
[2021-09-05 07:26] LABS: Glucose, Whole Blood 142 mg/dL (60-115)
[2021-09-05 07:42] VITALS: BP 135/67; PULSE 83; RESP 18; TEMP 36.8; O2SAT 97
--- NOTE | 2021-09-05 08:00 | CA_ITS ---
Transthoracic Echocardiogram Patient (Last, First, Middle): Brittany Onofre A Gender: Female Date of : 1945 Age: 76 Procedure Date: 09/05/2021 Procedure Type: Transthoracic E[place]ocardiogram [place] [facility] [place]: 152.4 cm Weight: 83.46 kg BSA: 1.80 m2 Heart Rate: bpm BP: 113 / 46 mmHg Contact Person: Referring MD: Lyndsey Llanos MD Stationary Engineer Refrigeration: Nasir Michelle MD Symptoms: elevated troponins Study Quality: Fair ECG Rhythm: Sinus Conclusions: - 1. Normal LV systolic function with impaired relaxation filling pattern 2. Mildly dilated left atrium 3. Moderate to severe aortic stenosis 4. Moderate mitral annular calcification 5. Normal RV systolic pressure 6. No gross pericardial effusion Findings Left Ventricle Normal left ventricular size, thickness, and systolic function. The visually estimated ejection fraction is between 60-65%. Spectral Doppler is indicative of an impaired relaxation filling pattern. E/E prime ratio is between 8 and 15 consistent with indeterminate filling pressures. Right Ventricle Normal right ventricular cavity size and systolic function. Atria The left atrium is mildly dilated. There is lipomatous hypertrophy of the interatrial septum. Interatrial shunt cannot be excluded. The right atrium is normal in size. Aortic Valve There is moderate calcification of the aortic valve. There is moderate to severe aortic valve stenosis. The peak aortic gradient is 45 mmHg.The mean gradient is 28 mmHg. The aortic valve area is 1.03 cm2. There is no aortic valve regurgitation. Mitral Valve There is mild anterior and moderate posterior mitral leaflet thickening. There is moderate mitral annular calcification. There is trace mitral valve regurgitation. There is no mitral valve stenosis. Pulmonic Valve The pulmonic valve was not well visualized. Tricuspid Valve Likely normal tricuspid valve structure and function. The right ventricular systolic pressure is 25 mmHg. Normal right atrial pressure. There is no evidence of pulmonary hypertension. Great Vessels All visible segments of the aorta are normal in size. The pulmonary artery was not well visualized. Venous The inferior vena cava is normal in size and collapses greater than 50% with inspiration. Pericardium/Pleural There is no evidence of pericardial effusion. Prior Study Comparison Changes noted compared to prior study dated: 11/15/2020. Aortic stenosis appears to be moderately severe Measurements 2D Linear Measurements IVSd: 0.86 0.6-0.9/0.6-1.0 cm LVIDd: 5.32 3.9-5.3/4.2-5.9 cm LVIDd Index: 2.96 2.4-3.2/2.2-3.1 cm/m2 LVIDs: 2.81 2.0-3.6 cm LVPWd: 0.84 0.7-1.1 cm Ao Root: 2.60 2.1-3.5 cm LA Diam: 4.90 2.7-3.8/3.0-4.0 cm LAIDs Index: 2.72 1.5-2.3 cm/m2 LV Mass: 202.89 67-162/88-224 g LV Mass Index: 112.72 43-95/49-115 g/m2 LVOT Diam: 2.10 3.0+(-)1.3 cm Mitral Valve MV Pk E: 0.79 MV PK A: 1.13 MV Decel Time: 239.00 E/A: 0.70 E'Lateral: 9.57 E'Medial: 5.87 E/E' Med: 13.50 E/E' Lat: 8.30 PHT: 70.00 MVA PHT: 3.14 Decel [place]: 3.32 Aortic Valve AoV Pk Ronny: 3.36 AoV Mn Ronny: 2.52 AoV VTI: 0.85 AoV Pk Grad: 45.00 Aov Mn Grad: 28.00 JOSY Cont.VTI: 1.03 LVOT LVOT Pk Ronny: 1.02 LVOT Mn Ronny: 0.61 LVOT VTI: 0.25 LVOT Pk Grad: 4.00 LVOT Mn Grad: 2.00 LVOT Diam: 2.10 LVOT Area: 3.46 Diastolic Function MV Pk E: 0.79 MV Pk A: 1.13 E/A: 0.70 E'Medial: 5.87 E/E' Med: 13.50 E' Laterial: 9.57 E/E' Lat: 8.30 Tricuspid Valve TR Pk Ronny: 2.36 TR Pk Grad: 22.00 RA Press: 3.00 RVSP: 25.00 Great Vessels Aorta Ao Root-2D: 2.60 2.0-3.7 cm Ao Asc: 3.10 2.1-3.4 cm Pulmonary Valve PV Pk Ronny: 1.38 Peak PV Grad: 8.00 Updated in Other Vendor System with Status of Final Nasir Michelle MD electronically signed on 09/05/2021 12:25:42 PM with status of Final
[2021-09-05 09:51] VITALS: BP 135/67; PULSE 83
[2021-09-05] MEDS: Sertraline HCL 100 MG TABLET PO (09:51)
[2021-09-05] MEDS: 0.9 % Sodium Chloride Flush 3 ML SYRINGE IVFLUSH (09:51)
[2021-09-05] MEDS: Metoprolol Succinate ER 50 MG TAB.ER.24H PO (09:51)
[2021-09-05] MEDS: Mineral Oil/Petrolatum,White 106 GM Tube 1 APPL TOPICAL (09:52)
[2021-09-05] MEDS: Pantoprazole Sodium 40 MG/10 ML VIAL IVPUSH (09:52)
[2021-09-05] MEDS: Folic Acid 1 MG TABLET PO (09:52)
[2021-09-05] MEDS: Apixaban 5 MG TABLET PO (09:52)
[2021-09-05] MEDS: Atorvastatin Calcium 80 MG TABLET PO (09:53)
[2021-09-05 11:16] LABS: Glucose, Whole Blood 147 mg/dL (60-115)
[2021-09-05 11:44] VITALS: BP 144/61; PULSE 78; RESP 18; TEMP 36.9; O2SAT 96
--- NOTE | 2021-09-05 12:04 | PM.DS ---
DS: Providers Provider Date of Service: 09/05/21 Date of admission: 09/02/21 16:05 Primary care physician: Sary Waite MD Consults: 09/02/21 16:03 Consult to Gastroenterology Routine Consulting Provider: Isabel Galvin Reason for consultation: gi bleed Has provider been notified: No DS: Diagnosis Discharge Diagnosis (1) Anemia: Status: Chronic DS: Summary Hospital Course Hospital Course: Chief Complaint:weakness? This is a 76-year-old female with multiple medical problems who presents to the emergency department today with weakness.? She reports progressive weakness over the past few weeks.? For 2 days she reports episodes of dizziness sweating and shortness of breath upon standing.? These episodes last approximately 15 seconds and improved when she sits down.? She has also noticed that her stools have become more dark and tarry in nature, she denies any bright red blood per rectum. She has had intermittent rectal bleeding since October. She has also had burning abdominal pain. She denies any nausea or vomiting. She does not drink alcohol and she denies the use of NSAIDs. Workup in the ED revealed anemia with H/H of 6.1/20.7. Troponin was 45.2. Her stool occult blood was positive. She was given a dose of IV protonix and two units of blood were ordered for transfusion. Of note, patient has had multiple episodes of GI bleeding since being started on Eliquis for PE in October. She has had EGD, colonoscopy and capsule endoscopy with findings of lee's esophagus solitary esophageal varix, AVMs, internal hemorrhoids, diverticular disease, possible rectal varices and venous malformations. Hospital course: She was admitted with acute on chronic anemia suspected to be GI source of bleed. Hematocrit was 20 on admission and transfused 2 units of RBC with improvment to presently hematocrit of 29. She was on IV PPI, undewent EGD by Dr. Galvin on 09/04 with finding of gastritis and no other source of bleed and thus is recommended to restart eliquis. She wish not to undergo further testing for source of bleed and prefer periodic blood check ie monthly and transfusion as needed. Will prescribe prilosec to for gastritis. Time Spent with Patient Time attestation: Total time spent providing and/or coordinating discharge services: Discharge coordination time: Greater than 30 minutes Quality: Stroke Does the patient have a stroke diagnosis?: No Physical Exam Vital Signs: Vital Signs: Last Vital Signs Temp 98.4 F 09/05/21 11:44 Pulse 78 09/05/21 11:44 Resp 18 09/05/21 11:44 BP 144/61 H 09/05/21 11:44 Pulse Ox 96 09/05/21 11:44 Body Mass Index 35.9 DS: Data Data Completed and Pending Completed studies during hospitalization [Text1]: Procedures Excision of Esophagus, Via Natural or Artificial Opening Endoscopic, Diagnostic (12/08/20) Excision of Jejunum, Via Natural or Artificial Opening Endoscopic, Diagnostic (12/08/20) Excision of Stomach, Pylorus, Via Natural or Artificial Opening Endoscopic, Diagnostic (12/08/20) Transfusion of Nonautologous Red Blood Cells into Peripheral Vein, Percutaneous Approach (12/08/20) Labs on day of discharge: Laboratory Results - last 24 hr 09/04/21 09/04/21 09/05/21 16:05 20:14 06:13 WBC 5.3 RBC 3.05 L Hgb 9.2 L Hct 29.4 L MCV 96.4 MCH 30.2 MCHC 31.3 RDW 16.6 H Plt Count 244 MPV 10.1 Absolute Nucleated RBC 0.000 Nucleated RBC % (auto) 0.0 Sodium Potassium Chloride Carbon Dioxide Anion Gap BUN Creatinine Estim Creat Clear Calc Estimated GFR POC Glucose 145 H 134 H Random Glucose Calcium 09/05/21 09/05/21 09/05/21 06:13 07:22 11:13 WBC RBC Hgb Hct MCV MCH MCHC RDW Plt Count MPV Absolute Nucleated RBC Nucleated RBC % (auto) Sodium 142 Potassium 4.3 Chloride 108 Carbon Dioxide 26 Anion Gap 12 BUN 15 Creatinine 0.89 Estim Creat Clear Calc 53.1 Estimated GFR > 60 POC Glucose 142 H 147 H Random Glucose 152 H Calcium 9.2 Discharge Plan Discharge Patient Disposition: Home, Self-Care Discharge Diagnosis: Acute on chronic anemia Referrals: Sary Waite MD [Primary Care Provider] - 09/19/21 12:30 pm (You have a follow up appointment on September 19 at 12:30 pm.) Discharge Medications: Continued cyanocobalamin (vitamin B-12) 5,000 mcg tablet,disintegrating 5,000 mcg PO DAILY Qty: 30 RF: 1 lisinopril 2.5 mg tablet 2.5 mg PO DAILY Qty: 90 RF: 1 trazodone 50 mg tablet 50 mg PO BEDTIME Qty: 90 RF: 1 metoprolol succinate 50 mg tablet extended release 24 hr 150 mg PO DAILY Qty: 270 RF: 1 atorvastatin 80 mg tablet 80 mg PO DAILY Qty: 90 RF: 1 folic acid 1 mg tablet 1 mg PO DAILY 90 Days Qty: 90 RF: 2 dicyclomine 20 mg tablet 20 mg PO BID 90 Days Qty: 180 RF: 1 omeprazole 40 mg capsule,delayed release(DR/EC) 40 mg PO DAILY 90 Days Qty: 90 RF: 2 apixaban 5 mg tablet 5 mg PO Q12H Qty: 60 RF: 2 alprazolam 0.25 mg tablet 0.25 mg PO DAILY PRN (Reason: anxiety) Qty: 20 RF: 0 sertraline 100 mg tablet 100 mg PO DAILY Qty: 90 RF: 1 clotrimazole 2 % cream 1 appful vaginal BEDTIME RF: 0 glipizide 5 mg tablet 5 mg PO BID RF: 0 metformin 500 mg tablet 500 mg PO DAILY RF: 0 verapamil 100 mg capsule, [address] 100 mg PO BEDTIME RF: 0 ferrous fumarate 325 mg (106 mg iron) tablet 325 mg PO DAILY RF: 0 cholecalciferol (vitamin D3) 50 mcg (2,000 unit) capsule 50 mcg PO DAILY RF: 0 acetaminophen 500 mg tablet 500 mg PO Q6H PRN (Reason: Pain) RF: 0 Discontinued aspirin [Adult Aspirin Regimen] 81 mg tablet,delayed release (DR/EC) 81 mg PO DAILY RF: 0 Discharge Orders: Discharge Order (Routine); Ordered 09/05/21 Ordered By: Eleazar Osborn Diet: advance to usual diet Activity on Discharge: As tolerated Stand Alone Forms: Patient Portal Discharge page Care Plan Goals: prevent rehospitalization and controll of anemia Health Concerns: chronic anemia Plan of Treatment: continue taking your medications as before, take prilosec for gastritis, follow up with your Doctor and ask to have blood work done monthly and get blood transfusion as needed, stop taking aspirin to minimize bleeding risk Assessment: as sophia
--- NOTE | 2021-09-05 12:33 | MHC.CM.PN ---
pt dcd home no skilled services ordered by
== END 2021-09-05 13:57 | disposition home or self-care (01) | DRG 378 ==
LOC: HO.ED 15:20 → HO.EDOVER 16:35 → HO.IMC 17:16
PROVIDERS: Internal Medicine; Internal Medicine Gastroenterology; Admitting Provider Physician Assistant Medical; Emergency Provider Emergency Medicine Emergency Medical Services; PCP Internal Medicine; Visit Provider Internal Medicine
PROC: 0DJ08ZZ Inspection of Upper Intestinal Tract, Via Natural or Artificial Opening Endoscopic (ICD-10-PCS; CPT 43235; principal; 2021-09-04 13:50)
DX: K29.71 Gastritis, unspecified, with bleeding (principal); D62 Acute posthemorrhagic anemia; I25.10 Atherosclerotic heart disease of native coronary artery without angina pectoris; I85.01 Esophageal varices with bleeding; Z79.84 Long term (current) use of oral hypoglycemic drugs; Z95.1 Presence of aortocoronary bypass graft; Z87.891 Personal history of nicotine dependence; Z86.711 Personal history of pulmonary embolism; Z88.2 Allergy status to sulfonamides; Z88.5 Allergy status to narcotic agent; Z79.01 Long term (current) use of anticoagulants; Z79.899 Other long term (current) drug therapy
CPT/HCPCS: 36415; 36430; 80048; 80053; 82272; 82947; 83690; 84484; 85014; 85018; 85025; 85027; 85610; 85730; 86850; 86900; 86901; 86923; 87635; 93005; 93306; 96374; 99285; 99291; P9016

== ENCOUNTER 2021-09-12 09:12 | Outpatient (REF) | payer MEDICARE, SELFPAY ==
--- NOTE | ~2021-09-12 | PE_ITS ---
EXAMINATION: Fluorine-18 FDG PET/CT Scan CLINICAL INDICATION: Initial treatment management. Pulmonary nodules. PROCEDURE: 66 minutes following the intravenous administration of 14.5 mCi of fluorine 18 FDG, images from the base of the skull to the mid thighs were obtained using a combined PET/CT scanner with CT scan based attenuation correction. No oral contrast was administered. No intravenous contrast was administered. Transverse, coronal, sagittal, and volume reconstruction projections were obtained. The patient's blood glucose as determined by a finger stick, was 156 mg/dl immediately prior to injection. Total CT exam dose-length product 755.66 mGy-cm * These CT images were obtained using dose optimization techniques as appropriate, variously including the following: Automated exposure control * Adjustment of mA and/or kV according to patient size (this includes techniques or standardized protocols for targeted exams where dose is matched to indication/reason for exam; i.e. extremities or head) * Use of iterative reconstruction technique COMPARISON: No previous PET/CT scan is available for comparison. CT scans of the chest dated 08/03/2021 and of the abdomen and pelvis dated 11/15/2020 are available for comparison. FINDINGS: (Slice numbers described in this report are numbered superiorly to inferiorly with slice #1 in the head) NECK AND VISUALIZED HEAD: No foci of abnormal FDG activity are noted. The distribution of FDG activity is physiological. There is no cervical lymphadenopathy. THORAX: Upper lobe predominant emphysema is noted. There is a 0.8 x 0.6 cm posterior pleural-based left upper lobe pulmonary nodule present, unchanged from the 08/03/[address] scan. This shows weak FDG activity, S SUVmax 2.4, slice 45/233. There is a densely calcified right middle lobe pulmonary nodule abutting the minor fissure, slice 61/223, unchanged and better visualized on the 08/03/[address] scan. Additional small subcentimeter pulmonary nodules visualized on prior CT scans are not apparent on these nondiagnostic CT images. No additional foci of abnormal FDG activity are present in the chest. There is no mediastinal, supraclavicular, or axillary lymphadenopathy. There is no pleural or pericardial fluid, or pneumothorax. ABDOMEN AND PELVIS: No foci of abnormal FDG activity are present in the abdomen or pelvis. The liver, gallbladder, spleen comment kidneys, adrenal glands and pancreas appear unremarkable. There is no retroperitoneal, mesenteric, pelvic or inguinal lymphadenopathy. The uterus is not visualized. The pelvic organs are otherwise unremarkable. There is mild FDG activity throughout the gastrointestinal tract without a suspicious focal component. There is diverticulosis without evidence of diverticulitis. The hollow viscera are otherwise unremarkable. A small fat-containing periumbilical ventral hernia is noted. MUSCULOSKELETAL: No foci of abnormal FDG activity are present in the osseous structures. There are degenerative changes in the spine, most severe in the mid to lower thoracic spine. Poststernotomy changes are noted including multiple sternal wires. There is no associated abnormal FDG activity. There are no suspicious sclerotic or lytic lesions visualized. VASCULAR: Diffuse vascular calcifications including coronary are noted. There is aneurysmal dilatation of the infrarenal abdominal aorta measuring 3.3 cm in maximum AP diameter, unchanged from prior studies. PET/PET CT fusion skull to thigh IMPRESSION: 1. There is weak FDG activity associated with a posterior pleural-based left upper lobe pulmonary nodule. This intensity of FDG activity in a nodule this small which is at the lower limits of resolution on the FDG PET images is strongly suspicious for malignancy. 2. Other than a calcified right middle lobe granuloma, additional small subcentimeter nodules visualized on prior CT scans are not visualized on these nondiagnostic CT images and all of these are much too small to be characterized on the FDG PET images. 3. No additional abnormalities suspicious for metastatic or other malignant lesions are noted. 4. Vascular calcifications including coronary and stable aneurysmal dilatation of the infrarenal abdominal aorta are also noted.
== END 2021-09-12 09:13 | disposition home or self-care (01) ==
LOC: HO.PET 09:12
PROVIDERS: Visit Provider Hospitalist
DX: Z13.89 Encounter for screening for other disorder (principal)

== ENCOUNTER 2021-09-25 12:48 | Outpatient (REF) | payer MEDICARE, SELFPAY ==
--- NOTE | 2021-09-25 16:26 | PFT_ITS ---
Forced vital capacity, FEV1, [id number], and MVV are all normal. Bronchodilator challenge was not given. Total lung capacity normal. Residual volume slightly decreased. Diffusion capacity slightly decreased. CONCLUSION: No evidence of obstructive or restrictive pulmonary disorder. Residual volume and diffusion capacity are slightly decreased, which may be due to nonspecific factors. Clinical correlation is recommended. The patient was given levalbuterol for bronchodilator challenge. After the nebulization, she felt funny and became somewhat disoriented with a feeling of lightheadedness. After waiting for 10 to 15 minutes and the symptoms did not improve, so the patient was sent to the emergency room for further evaluation. MD GABRIEL Jesus/ANNA MARIE / [id number]
== END 2021-09-25 12:49 | disposition home or self-care (01) ==
LOC: HO.RESP 12:48
PROVIDERS: PCP Internal Medicine; Visit Provider Hospitalist
DX: R06.00 Dyspnea, unspecified (principal); R91.8 Other nonspecific abnormal finding of lung field
CPT/HCPCS: 94010; 94727; 94729

== ENCOUNTER 2021-09-25 14:16 | Observation (INO) | payer MEDICARE, SELFPAY ==
--- NOTE | ~2021-09-25 | CT_ITS ---
EXAMINATION: CT HEAD WITHOUT CONTRAST (STROKE PROTOCOL) CLINICAL INFORMATION: Stroke protocol. Weakness, and aphasia. They fissure has now resolved COMPARISON: None TECHNIQUE: Contiguous axial imaging was performed from the skull base to vertex without intravenous administration of contrast. This CT examination was performed using dose optimization techniques as appropriate, variously including the following: *Automated exposure control *Adjustment of mA and/or kV according to patient size (this includes techniques or standardized protocols for targeted exams where dose is matched to indication/reason for exam; i.e. extremities or head) *Use of iterative reconstruction technique DLP: 593 mGy-cm FINDINGS: There is no intracranial hemorrhage, hematoma, or extra-axial fluid collection. The lateral ventricles are symmetrical in size but enlarged with mild frontal cortical sulci. There is no mass effect.There is a punctate nonspecific calcification along the right frontal cortex axial image 22/3. The lopez-white matter differentiation appears symmetric. There is no acute infarct or mass lesion. The calvarium appears intact. There is no pneumocephalus or orbital emphysema. The visualized sinuses and middle ears and mastoid air cells show no significant mucosal thickening. There are no air-fluid levels. CT/CT head for stroke IMPRESSION: No acute intracranial process seen. This critical result was discussed with Dr. Norris in ED at at 3:24 PM. It was ascertained that the content and urgency of the report was understood at the time of direct communication.
--- NOTE | ~2021-09-25 | CT_ITS ---
EXAMINATION: CT ANGIOGRAM NECK WITH CONTRAST CT ANGIOGRAM BRAIN WITH CONTRAST CLINICAL INFORMATION: Large vessel occlusion. COMPARISON: Head CT performed earlier today. TECHNIQUE: Test bolus sequences followed by intravenous administration 100 mL of Omnipaque 350. Helical imaging was performed in the axial plane from the thoracic inlet to the skull vertex. Delayed postcontrast imaging of the head was also performed. The data was processed at the echo technologist workstation for generation of MIP sequences. Angled MIPs and volume rendered reformatted images were also generated at an offline 3D workstation. Stenoses are assessed in accordance with NASCET criteria unless otherwise indicated. This CT examination was performed using dose optimization techniques as appropriate, variously including the following: *Automated exposure control *Adjustment of mA and/or kV according to patient size (this includes techniques or standardized protocols for targeted exams where dose is matched to indication/reason for exam; i.e. extremities or head) *Use of iterative reconstruction technique DLP: 1412 mGy-cm FINDINGS: Head CT: There is no intracranial hemorrhage, large acute infarction, or mass lesion. The ventricles are normal in size and configuration without evidence of hydrocephalus. No abnormal enhancement is seen. The dural venous sinuses are normally opacified. The extracranial structures are within normal limits. Neck CTA: Atheromatous changes are seen involving the aortic arch. The great vessel origins are patent. Atheromatous changes are seen involving the bilateral carotid bifurcations. No significant stenosis is seen. The bilateral cervical internal carotid artery segments are patent. Atheromatous changes are present at both carotid siphons without significant stenosis. Calcific plaque narrows the origin of the dominant right vertebral artery. The right vertebral artery is otherwise patent. The nondominant left vertebral artery is also patent. Head CTA: No large vessel occlusion is seen. The anterior and posterior circulations are patent. The left vertebral artery terminates as a thigh,. There is significant atheromatous plaque along the intradural right vertebral artery with only mild stenosis. No aneurysm is seen. Non-vascular findings: Emphysema is seen within the imaged lungs. Degenerative changes are seen within the spine. Changes of coronary artery bypass grafting are also noted. CT/CT angio head neck stroke IMPRESSION: CT head: No intracranial hemorrhage or large acute infarction. CTA neck: No hemodynamically significant stenosis in the major arteries of the neck. Atheromatous changes are noted without significant stenosis. CTA head: No large vessel occlusion or significant stenosis within the intracranial circulation. Atheromatous changes are noted but without significant stenosis. This critical result was discussed with Dr. Norris on 09/25/2021 3:40 PM, and it was ascertained that the content and urgency of the report was understood at the time of direct communication.
--- NOTE | 2021-09-25 14:43 | ED.NEUROSD ---
HPI - Neuro Symptoms/Deficit General Chief Complaint: Stroke Stated Complaint: ?stroke Time Seen by Provider: 09/25/21 14:42 Source: patient Mode of arrival: ambulatory Limitations: no limitations History of Present Illness HPI Narrative: During pulmonary function test there was a 5 minute period where she could not speak. patient knew that this was happening but could not speak. Upon arrival patient had an aura within in her peripheral vision. For the past 2 days patient had inermittent aura but has not had any headache. patient was not weak to one side of body. this all happened for 25 minutes prior to arrival. Onset (ago): minute(s) Related Data Home Medications Medication Instructions Recorded Confirmed cholecalciferol (vitamin D3) 50 50 mcg PO DAILY 10/26/20 09/19/21 mcg (2,000 unit) capsule ferrous fumarate 325 mg (106 mg 325 mg PO DAILY 10/26/20 09/19/21 iron) tablet glipizide 5 mg tablet 5 mg PO BID 10/26/20 09/19/21 metformin 500 mg tablet 500 mg PO DAILY 10/26/20 09/19/21 verapamil 100 mg capsule 24hr 100 mg PO BEDTIME 10/26/20 09/19/[address],ext.release acetaminophen 500 mg tablet 500 mg PO Q6H PRN 11/07/20 09/19/21 clotrimazole 2 % vaginal cream 1 appful VAGINAL BEDTIME 12/28/20 09/19/21 Previous Rx's Medication Instructions Recorded cyanocobalamin (vitamin B-12) 5,000 mcg PO DAILY #30 tab 01/09/21 5,000 mcg disintegrating tablet atorvastatin 80 mg tablet 80 mg PO DAILY #90 tab 05/25/21 folic acid 1 mg tablet 1 mg PO DAILY 90 Days #90 tab 05/30/21 dicyclomine 20 mg tablet 20 mg PO BID 90 Days #180 tab 06/08/21 omeprazole 40 mg capsule,delayed 40 mg PO DAILY 90 Days #90 cap 06/08/21 release apixaban 5 mg tablet 5 mg PO Q12H #60 tab 06/26/21 sertraline 100 mg tablet 100 mg PO DAILY #90 tab 08/10/21 alprazolam 0.25 mg tablet 0.25 mg PO DAILY PRN #20 tab 09/14/21 lisinopril 2.5 mg tablet 2.5 mg PO DAILY #90 tab 09/14/21 metoprolol succinate 50 mg 150 mg PO DAILY #270 tab 09/14/21 tablet,extended release 24 hr trazodone 50 mg tablet 50 mg PO BEDTIME #90 tab 09/14/21 Allergies Allergy/AdvReac Type Severity Reaction Status Date / Time sulfamethoxazole Allergy Severe Rash Verified 09/19/21 13:01 [From Bactrim] adhesive tape [ADHESIVE TAPE] Allergy Intermediate BLISTERS Verified 09/19/21 13:01 clonidine Allergy makes pt Verified 09/19/21 13:01 hulusinate adhesive AdvReac Severe BLISTERS Verified 09/19/21 13:01 gabapentin AdvReac Severe hallucinati Verified 09/19/21 13:01 on morphine AdvReac Severe hallucinati Verified 09/19/21 13:01 on glue AdvReac Severe BLISTERS Uncoded 09/13/21 14:58 Review of Systems Neurologic: Denies Sensory deficit (Neuro) [facility] Past Medical History Medical History AAA (abdominal aortic aneurysm) (~2008) Anemia Arthritis AVM (arteriovenous malformation) of colon Barretts esophagus Bilateral pulmonary embolism (~10/2020) Bleeding hemorrhoids CAD (coronary artery disease) COPD (chronic obstructive pulmonary disease) Depression Essential hypertension GERD without esophagitis GIB (gastrointestinal bleeding) History of blood transfusion Irritable bowel syndrome with both constipation and diarrhea Left upper lobe pulmonary nodule Macrocytic anemia Macrocytic anemia with vitamin B12 deficiency Major depression in full remission Mixed dyslipidemia Nonrheumatic aortic (valve) stenosis Nonrheumatic mitral valve regurgitation Normocytic anemia Obesity On anticoagulant therapy (~10/2020) On beta [facility] at home Pulmonary nodules Restless leg syndrome Skin lesion of chest wall Type 2 diabetes mellitus without complication, without long-term current use of insulin Vitamin B12 deficiency Surgical History History of bilateral breast reduction surgery History of coronary artery bypass graft x 2 History of heart artery stent History of total right knee replacement (TKR) Hx of colonoscopy Hx of esophagogastroduodenoscopy Hx of hysterectomy S/P excision of lipoma Family History Family History Father HTN (hypertension) Myocardial infarction Hyperlipidemia Abdominal aneurysm Mother HTN (hypertension) Myocardial infarction Hyperlipidemia Brother Alzheimer's disease Substance abuse Sister Rheumatoid arthritis Brother Rheumatoid arthritis Maternal Aunt Diabetes mellitus Lung cancer Maternal Uncle Diabetes mellitus Son No problems noted. Daughter No problems noted. Social History Social History Household Members: Spouse Housing: House Do you presently have visiting nurse or other home services: No Alcohol intake: current Alcohol intake frequency: holidays/special occasions only Patient Tobacco Use Status: Former Tobacco user Tobacco use type: Cigarette Cigarette Packs Per Day: 2 Years Smoked: 30 e-Cigarette/Vaping Use: Never Used Second Hand Smoke Exposure: No Substance Use Type: Marijuana Advance Directives: No Advance Directives Information Provided: No service: No Current occupational status: retired Physical Exam Vital Signs: Vital Signs: Last Vital Signs Temp 98.6 F 09/25/21 14:51 Pulse 53 09/25/21 16:19 Resp 18 09/25/21 16:19 BP 126/60 09/25/21 16:19 Pulse Ox 97 09/25/21 16:19 BMI result Body Mass Index 35.2 Const: General: healthy appearing Nutritional Appearance: average body habitus Orientation/consciousness: oriented to person and patient oriented x3 Limitations: no limitations HENMT: Head: Yes normal to inspection Ears: external ears normal General nose exam: Normal external nose present Mouth: Normal oral and palatal mucosa present and oropharynx normal Throat: Yes posterior oropharynx normal Eyes: General: appearance normal, both eyes and all related structures Neck: Other: supple Neck: Yes normal visual inspection Chest: Chest palpation & inspection: normal inspection of the chest Resp: Auscultation: clear to auscultation bilaterally Cardio: Jugular venous distension: no JVD Rate: regular rate Rhythm: regular rhythm Heart sounds: S1 normal heart sound present and S2 normal heart sound present GI: Inspection: Yes normal to inspection Palpation (GI): Soft to palpation, nontender and No hepatosplenomegaly present Auscultation: normal bowel sounds : General: Yes no CVA tenderness Back/Spine/Pelvis: Back: no CVA tenderness Skin: General skin exam: no rashes or lesions noted Neuro: General: oriented to person and patient oriented x3 Cranial nerves: Yes CN's II-XII intact bilaterally Motor exam (neuro): 5/5 motor strength present throughout Sensory Exam: No Sensory deficit (Neuro) Extrem: General: Yes normal to inspection Psych: Appearance: grossly normal Course Reevaluation(s) Reevaluation #1: Patient with aphasia, now with NIH of 0, patient had 2 days of aura. Impression is atypical migraine vs TIA Time: 16:08 Reevaluation #2: I spent 40 minutes of critical care, with interventions, assessments, speaking to patient, consultants, and family. Time: 16:27 [facility] - Neuro Symptoms/Deficit Lab Data Result diagrams: 09/25/21 15:06 09/25/21 15:06 Labs: Lab Results 09/25/21 09/25/21 09/25/21 Range/Units 14:56 15:06 15:06 WBC 7.5 (4.8-10.8) X10*3/uL RBC 3.65 L (4.20-5.50) X10*6/uL Hgb 10.7 L (12.0-16.0) g/dl Hct 34.6 L (37.0-47.0) % MCV 94.8 (80.0-98.0) fL MCH 29.3 (27.0-33.0) pg MCHC 30.9 L (31.0-35.0) g/dl RDW 14.9 (11.0-16.0) % Plt Count 270 (160-400) X10*3/uL MPV 10.7 (9.4-12.3) fL Immature Gran % (Auto) 0.4 (0.0-0.4) % Neut % (Auto) 68.9 (45-73) % Lymph % (Auto) 18.0 L (20-40) % [place] % (Auto) 10.9 (2-11) % Eos % (Auto) 1.5 (0-4) % Baso % (Auto) 0.3 (0-2) % Lymph # (Auto) 1.4 (1.2-4.9) X10*3/uL [place] # (Auto) 0.8 (0.1-1.2) X10*3/uL Eos # (Auto) 0.1 (0.0-0.4) X10*3/uL Baso # (Auto) 0.0 (0.0-0.2) X10*3/uL Abs Immat Gran (auto) 0.03 (0.00-0.03) X10*3/uL Absolute Neuts (auto) 5.2 (2.0-8.3) x10*3/uL Absolute Nucleated RBC 0.000 (0.0-0.012) X10*3/uL Nucleated RBC % (auto) 0.0 (0.0-0.2) /100WBC Sodium 140 (135-145) mmol/L Potassium 5.1 (3.3-5.1) mmol/L Chloride 105 (96-108) mmol/L Carbon Dioxide 23 (22-29) mmol/L Anion Gap 17 (12-20) BUN 22 H (9-16) mg/dL Creatinine 0.89 (0.5-1.4) mg/dL Estim Creat Clear Calc 52.4 Estimated GFR > 60 POC Glucose 86 (60-115) mg/dL Random Glucose 86 (60-115) mg/dL Calcium 9.7 (8.4-10.2) mg/dL Troponin I High Sens (<3.5-17.0) ng/L 09/25/21 Range/Units 15:06 WBC (4.8-10.8) X10*3/uL RBC (4.20-5.50) X10*6/uL Hgb (12.0-16.0) g/dl Hct (37.0-47.0) % MCV (80.0-98.0) fL MCH (27.0-33.0) pg MCHC (31.0-35.0) g/dl RDW (11.0-16.0) % Plt Count (160-400) X10*3/uL MPV (9.4-12.3) fL Immature Gran % (Auto) (0.0-0.4) % Neut % (Auto) (45-73) % Lymph % (Auto) (20-40) % [place] % (Auto) (2-11) % Eos % (Auto) (0-4) % Baso % (Auto) (0-2) % Lymph # (Auto) (1.2-4.9) X10*3/uL [place] # (Auto) (0.1-1.2) X10*3/uL Eos # (Auto) (0.0-0.4) X10*3/uL Baso # (Auto) (0.0-0.2) X10*3/uL Abs Immat Gran (auto) (0.00-0.03) X10*3/uL Absolute Neuts (auto) (2.0-8.3) x10*3/uL Absolute Nucleated RBC (0.0-0.012) X10*3/uL Nucleated RBC % (auto) (0.0-0.2) /100WBC Sodium (135-145) mmol/L Potassium (3.3-5.1) mmol/L Chloride (96-108) mmol/L Carbon Dioxide (22-29) mmol/L Anion Gap (12-20) BUN (9-16) mg/dL Creatinine (0.5-1.4) mg/dL Estim Creat Clear Calc Estimated GFR POC Glucose (60-115) mg/dL Random Glucose (60-115) mg/dL Calcium (8.4-10.2) mg/dL Troponin I High Sens < 3.5 (<3.5-17.0) ng/L NIH Stroke Scale Internal: Initial- Upon Arrival Level of Consciousness: Alert Level of Consciousness Questions: Answers both questions correctly Level of Consciousness Commands: Performs both tasks correctly Best Gaze: Normal Visual: No visual loss Facial Palsy: Normal Motor Arm (Right): No drift Motor Arm (Left): No drift Motor Leg (Right): No drift Motor Leg (Left): No drift Limb Ataxia: Absent Sensory: Normal Best Language: No aphasia Dysarthia: Normal Extinction and Inattention: No abnormality Score: 0 Discharge Plan Discharge Clinical Impression: Atypical migraine Transient cerebral ischemia Qualifiers: Transient cerebral ischemia type: unspecified Qualified Code(s): G45.9 - Transient cerebral ischemic attack, unspecified Patient Disposition: Admitted As Inpatient
--- NOTE | 2021-09-25 14:44 | ECG_ITS ---
Test Reason : aphasia Blood Pressure : / mmHG Vent. Rate : 060 BPM Atrial Rate : 060 BPM P-R Int : 170 ms QRS Dur : 076 ms QT Int : 456 ms P-R-T Axes : 058 -03 027 degrees QTc Int : 456 ms Sinus rhythm with occasional Premature ventricular complexes Otherwise normal ECG When compared with ECG of 04-SEP-2021 09:34, Premature ventricular complexes are now Present T wave inversion no longer evident in Anterolateral leads Referred By: Naun Norris Electronically Signed By:JADON PATEL MD
[2021-09-25 14:51] VITALS: BP 136/86; PULSE 57; RESP 18; TEMP 37; O2SAT 98; BMI 35.2
[2021-09-25 15:00] LABS: Glucose, Whole Blood 86 mg/dL (60-115)
[2021-09-25 15:10] LABS: MANUAL DIFF FLAG NO
[2021-09-25 15:12] LABS: Basophils Percent Auto 0.3 % (0-2); Eosinophils Absolute Auto 0.1 X10*3/uL (0.0-0.4); Eosinophils Percent Auto 1.5 % (0-4); Hematocrit 34.6 % (37.0-47.0); Hemoglobin 10.7 g/dl (12.0-16.0); Imm Gran Abs Auto 0.03 X10*3/uL (0.00-0.03); Imm Gran Pct Auto 0.4 % (0.0-0.4); Lymphocytes Absolute Auto 1.4 X10*3/uL (1.2-4.9); Mean Corpuscular HGB Conc 30.9 g/dl (31.0-35.0); Mean Corpuscular Hemoglobin 29.3 pg (27.0-33.0); Mean Corpuscular Volume 94.8 fL (80.0-98.0); Mean Platelet Volume 10.7 fL (9.4-12.3); Monocytes Absolute Auto 0.8 X10*3/uL (0.1-1.2); Monocytes Percent Auto 10.9 % (2-11); Neutrophils Absolute Auto 5.2 x10*3/uL (2.0-8.3); Neutrophils Percent Auto 68.9 % (45-73); Platelet Count 270 X10*3/uL (160-400); Red Blood Count 3.65 X10*6/uL (4.20-5.50); Red Cell Distribution Width 14.9 % (11.0-16.0); White Blood Count 7.5 X10*3/uL (4.8-10.8)
[2021-09-25 15:24] LABS: Anion Gap 17 (12-20); Blood Urea Nitrogen 22 mg/dL (9-16); Calcium 9.7 mg/dL (8.4-10.2); Carbon Dioxide 23 mmol/L (22-29); Chloride 105 mmol/L (96-108); Creatinine Clr Calc Pharmacy 52.4; Estimated Glomerular Filt Rate > 60; Glucose Random 86 mg/dL (60-115); Potassium 5.1 mmol/L (3.3-5.1); Sodium 140 mmol/L (135-145)
[2021-09-25] MEDS: iohexoL 350 MG/ML 100 ML INFUS..BTL IV (15:26)
[2021-09-25 15:31] LABS: Troponin-I High Sensitivity < 3.5 ng/L (<3.5-17.0)
[2021-09-25 16:19] VITALS: BP 126/60; PULSE 53; RESP 18; O2SAT 97
--- NOTE | 2021-09-25 17:10 | PHA.MEDREC ---
MED REC COMPLETE, NO ISSUES Pharmacy Consult ? Medication Reconciliation Pharmacy has completed the medication reconciliation.
--- NOTE | 2021-09-25 17:16 | P.HPHOSP_ITS ---
History of Present Illness Date of Service: 09/25/21 76 year old female with many medical problem including DM, HTN, HLD, h/o o PE, chronic anemia, GIB. She was having outpatient PFTs done today when she suddenly developped word finding difficulty and was rushed to the ED where work has been so far negative including guerita CT and head and neck CTA. She has nearly regain all her speech and besides that she has no other neurological deficit.. no visual changes, no weakness, no numbness, she had a slight headache that she attrubutes to not eating all day. Review of Systems Verdana 4l Review of Systems: Verdana 4d Verdana 4Bd Gen: Verdana 4d no fever Verdana 4Bd Resp: Verdana 4d no sob, no cough Verdana 4Bd CV: Verdana 4d no ches paint, no RIVAS, no leg edema Verdana 4Bd GI: Verdana 4d No n/v, no abd pain Verdana 4Bd Neuro: Verdana 4d No confusion, trnasienttrnasient speech changtes resolved, all other systems are reviewed and are negative. 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 Barretts esophagus Bilateral pulmonary embolism (~10/2020) Bleeding hemorrhoids CAD (coronary artery disease) COPD (chronic obstructive pulmonary disease) Depression Essential hypertension GERD without esophagitis GIB (gastrointestinal bleeding) History of blood transfusion Irritable bowel syndrome with both constipation and diarrhea Left upper lobe pulmonary nodule Macrocytic anemia Macrocytic anemia with vitamin B12 deficiency Major depression in full remission Mixed dyslipidemia Nonrheumatic aortic (valve) stenosis Nonrheumatic mitral valve regurgitation Normocytic anemia Obesity On anticoagulant therapy (~10/2020) On beta ashleigh at home Pulmonary nodules Restless leg syndrome Skin lesion of chest wall Transient cerebral ischemia Type 2 diabetes mellitus without complication, without long-term current use of insulin Vitamin B12 deficiency Family History Father HTN (hypertension) Myocardial infarction Hyperlipidemia Abdominal aneurysm Mother HTN (hypertension) Myocardial infarction Hyperlipidemia Brother Alzheimer's disease Substance abuse Sister Rheumatoid arthritis Brother Rheumatoid arthritis Maternal Aunt Diabetes mellitus Lung cancer Maternal Uncle Diabetes mellitus Son No problems noted. Daughter No problems noted. Surgical History History of bilateral breast reduction surgery History of coronary artery bypass graft x 2 History of heart artery stent History of total right knee replacement (TKR) Hx of colonoscopy Hx of esophagogastroduodenoscopy Hx of hysterectomy S/P excision of lipoma Social History (Updated 10/25/21 @ 10:22 by Elma Elizabeth) Household Members: Spouse Housing: House Do you presently have visiting nurse or other home services: No Alcohol intake: current Alcohol intake frequency: holidays/special occasions only Patient Tobacco Use Status: Former Tobacco user Quit Date: 1986 Tobacco use type: Cigarette Cigarette Packs Per Day: 2 Years Smoked: 30 e-Cigarette/Vaping Use: Never Used Second Hand Smoke Exposure: No Use of substances other than those prescribed or required for medical reasons: Yes Substance Use Type: Marijuana service: No Current occupational status: retired 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/ [employer] Meds Allergies Allergy/AdvReac Type Severity Reaction Status Date / Time sulfamethoxazole Allergy Severe Rash Verified 10/25/21 10:22 [From Bactrim] adhesive tape Allergy Intermediate BLISTERS Verified 10/25/21 10:22 [ADHESIVE TAPE] clonidine Allergy makes pt Verified 10/25/21 10:22 hulusinate adhesive AdvReac Severe BLISTERS Verified 10/25/21 10:22 gabapentin AdvReac Severe hallucinati Verified 10/25/21 10:22 on morphine AdvReac Severe hallucinati Verified 10/25/21 10:22 on glue AdvReac Severe BLISTERS Uncoded 10/25/21 10:22 Active Medications: Current Medications Pharmacy Consult (Consult Rx Perform Med Rec) 1 each MISCELLANE ONCE PRN PRN Reason: Consult order Home Medications Medication Instructions Recorded Confirmed Last Taken Type cholecalciferol 50 mcg PO DAILY 10/26/20 10/25/21 09/24/21 History (vitamin D3) 50 mcg (2,000 unit) capsule ferrous fumarate 325 mg PO DAILY 10/26/20 10/25/21 09/24/21 History 325 mg (106 mg iron) tablet verapamil 100 mg 100 mg PO 10/26/20 10/25/21 09/24/21 History capsule 24hr BEDTIME pellet CT,ext.release acetaminophen 500 500 mg PO BID 11/07/20 10/25/21 09/24/21 History mg tablet isosorbide 30 mg PO DAILY 10/02/21 10/25/21 Unknown History mononitrate 30 mg tablet,extended release 24 hr Physical Exam Verdana 4l Vital Signs and Narrative: Verdana 4d Verdana 4d Vital Signs: Verdana 4d Verdana 4Bd Last Vital Signs Verdana 4d Appointment Manager New 4d Appointment Manager New 4d Temp 98.6 F 09/25/21 14:51 Appointment Manager New 4d Pulse 53 09/25/21 16:19 Appointment Manager New 4d Resp 18 09/25/21 16:19 BP 126/60 09/25/21 16:19 Pulse Ox 97 09/25/21 16:19 BMI result Body Mass Index 35.2 Const: Other: Constitutional: Alert, in no distress, overweight. Mental Status: Oriented to person, place and time. Eyes: Pupils are equal, round and reactive to light. Ear, Nose and Throat: Oropharynx clear, mucous membranes moist. Ears and nose without eformities. Trachea midline. Respiratory: Clear to auscultation. No wheezing, rales or rhonchi. Cardiovascular: S1 S2 regular. No murmurs, rubs or gallops. Gastrointestinal: Abdomen soft, non-tender, non-distended. Normal bowel sounds.? Neurologic: Cranial nerves II-XII grossly intact. No focal neurological deficits. Moves all extremities spontaneously.? no numbers Skin: No rashes or lesions.? Musculoskeletal: No cyanosis or clubbing. Psychiatric: Normal mood and affect? Results Labs CBC and Chem 7: 09/25/21 15:06 09/25/21 15:06 Labs: Laboratory Results - last 24 hr 09/25/21 09/25/21 09/25/21 14:56 15:06 15:06 MCV 94.8 MCH 29.3 MCHC 30.9 L RDW 14.9 Plt Count 270 MPV 10.7 Immature Gran % (Auto) 0.4 Neut % (Auto) 68.9 Lymph % (Auto) 18.0 L Baker % (Auto) 10.9 Eos % (Auto) 1.5 Baso % (Auto) 0.3 Lymph # (Auto) 1.4 Baker # (Auto) 0.8 Eos # (Auto) 0.1 Baso # (Auto) 0.0 Abs Immat Gran (auto) 0.03 Absolute Neuts (auto) 5.2 Absolute Nucleated RBC 0.000 Nucleated RBC % (auto) 0.0 Anion Gap 17 Estim Creat Clear Calc 52.4 Estimated GFR > 60 POC Glucose 86 Random Glucose 86 Calcium 9.7 Troponin I High Sens 09/25/21 15:06 MCV MCH MCHC RDW Plt Count MPV Immature Gran % (Auto) Neut % (Auto) Lymph % (Auto) Baker % (Auto) Eos % (Auto) Baso % (Auto) Lymph # (Auto) Baker # (Auto) Eos # (Auto) Baso # (Auto) Abs Immat Gran (auto) Absolute Neuts (auto) Absolute Nucleated RBC Nucleated RBC % (auto) Anion Gap Estim Creat Clear Calc Estimated GFR POC Glucose Random Glucose Calcium Troponin I High Sens < 3.5 Imaging Radiologist's Impressions: Impressions Head CT 09/25/21 15:14 IMPRESSION: No acute intracranial process seen. This critical result was discussed with Dr. Norris in ED at at 3:24 PM. It was ascertained that the content and urgency of the report was understood at the time of direct communication. Head/Neck CTA 09/25/21 15:26 IMPRESSION: CT head: No intracranial hemorrhage or large acute infarction. CTA neck: No hemodynamically significant stenosis in the major arteries of the neck. Atheromatous changes are noted without significant stenosis. CTA head: No large vessel occlusion or significant stenosis within the intracranial circulation. Atheromatous changes are noted but without significant stenosis. This critical result was discussed with Dr. Norris on 09/25/2021 3:40 PM, and it was ascertained that the content and urgency of the report was understood at the time of direct communication. Assessment and Plan (1) Transient cerebral ischemia: Qualifiers: Transient cerebral ischemia type: unspecified Qualified Code(s): G45.9 - Transient cerebral ischemic attack, unspecified Plan 76/F with DM, HTN, CAD, HLD here with transient aphasia compatible with TIA plan: TIA--neuro checks, check lipids in AM, antiplets (baby ASA 3 times a week--she has risk bleeding), neuro eval.. No indication for PT/OT, but speech eval tomorrow h/o of PE--APixiban HLD--Lipitor HTN--Lisinopril, Metoprolol, Verapamil Diabetes--continue Metformin, Glipizide. Add SSI Chronic iron deficiency anemia--Iron supplement For all chronic medical issues--Will continue meds per med rec. DVT--Eliquis Quality Stroke Does the patient have a stroke diagnosis?: No VTE Prior VTE?: No VTE Risk Level:: Medical - moderate - high VTE Device Contraindication: Treatment Not Indicated VTE Drug Contraindication: N/A - Med Ordered
[2021-09-25 17:28] LABS: Influenza A PCR NEGATIVE (Negative); Influenza B PCR NEGATIVE (Negative); Resp Syncy Virus RNA Qual PCR NEGATIVE (Negative); SARS COV2 PCR INHOUSE NEGATIVE (Negative)
[2021-09-25 21:32] VITALS: BP 124/48; PULSE 60; RESP 14; TEMP 37.1; O2SAT 97
[2021-09-25] MEDS: Acetaminophen 325 MG TABLET 650 MG PO (21:41)
[2021-09-25] MEDS: Atorvastatin Calcium 80 MG TABLET PO (21:41)
[2021-09-25] MEDS: Dicyclomine HCl 10 MG CAPSULE 20 MG PO (21:41)
[2021-09-25] MEDS: traZODone HCL 50 MG TABLET PO (21:45)
[2021-09-25 21:56] VITALS: BMI 35.1
--- NOTE | 2021-09-25 22:05 | PC.NURSE ---
Admission assessment completed by this RN. Pt a/o x4, neuro's intact, offers no complaints. Passed bedside nursing swallow evaluation. Eliquis held, pt states she is scheduled for a cardiac cath on 09/28/21 at [facility] [place], [place]. Last took eliquis on 09/24/21. VSS- SB 58-60's, sBP 120-130's, verapamil/toprol xl held. Pt is a diabetic, metformin on hold, POC 190, pt ate 50% of her dinner earlier. No skin issues. Pt aware of plan of care.
[2021-09-25 22:14] LABS: Glucose, Whole Blood 190 mg/dL (60-115)
[2021-09-25 23:00] VITALS: BP 128/52; PULSE 62; RESP 16; TEMP 37.1; O2SAT 98
[2021-09-25] MEDS: 0.9 % Sodium Chloride Flush 3 ML SYRINGE IVFLUSH (23:41)
[2021-09-25] MEDS: ALPRAZolam 0.25 MG TABLET PO (23:41)
--- NOTE | 2021-09-26 03:53 | PC.NURSE ---
Report given to [facility] RN.
[2021-09-26] MEDS: Omeprazole 40 MG CAPSULE.DR PO (05:49)
[2021-09-26 07:16] LABS: Cholesterol 156 mg/dL; HDL Cholesterol 40 mg/dL; LDL Cholesterol Calculated 86 mg/dl; Triglycerides 153 mg/dL
[2021-09-26 07:32] LABS: Glucose, Whole Blood 132 mg/dL (60-115)
[2021-09-26 07:38] VITALS: BP 126/58; PULSE 66; RESP 20; TEMP 36.6; O2SAT 97
[2021-09-26] MEDS: 0.9 % Sodium Chloride Flush 3 ML SYRINGE IVFLUSH ×2 (08:36→16:37)
[2021-09-26] MEDS: glipiZIDE 5 MG TABLET PO (08:36)
[2021-09-26] MEDS: Ferrous Sulfate 324 MG TABLET.DR PO (08:37)
[2021-09-26] MEDS: Dicyclomine HCl 10 MG CAPSULE 20 MG PO (08:37)
[2021-09-26] MEDS: metFORMIN HCl 500 MG TABLET PO (08:38)
[2021-09-26] MEDS: Cholecalciferol (Vitamin D3) 25 MCG TABLET 50 MCG PO (08:38)
[2021-09-26] MEDS: Folic Acid 1 MG TABLET PO (08:39)
[2021-09-26 08:40] VITALS: BP 126/58; PULSE 66
[2021-09-26] MEDS: Acetaminophen 325 MG TABLET 650 MG PO (08:40)
[2021-09-26] MEDS: lisinopriL 2.5 MG TABLET PO (08:40)
[2021-09-26] MEDS: Cyanocobalamin (Vitamin B-12) 1,000 MCG TABLET 5000 MCG PO (08:41)
[2021-09-26] MEDS: Sertraline HCL 100 MG TABLET PO (08:41)
--- NOTE | 2021-09-26 09:46 | MHC.CM.PN ---
[place] 09/26/21 FEMALE 76 DX TIA SHE LIVES W SPOUSE. SHE IS INDEPENDENT ALL FUNCTIONAL MOBILITY. SS of TIA word searching, has resolved. DP home no services family transport VAXX x2 [employer].
[2021-09-26 11:06] LABS: Glucose, Whole Blood 143 mg/dL (60-115)
--- NOTE | 2021-09-26 11:10 | MHC.STROKE ---
09/25/21 at 1500, I WAS CALLED BY DR PARRA REGARDING POSSIBLE TIA. PATIENT HAD A BRIEF PERIOD OF SLURRED SPEECH AT 1351 DURING A PULMONARY FUNCTION TEST AND WAS BROUGHT TO THE ED. NIHSS = 0. SHE IS ON APIXABAN FOR PE. SHE HAS NOT HAD ANY REOCCURRENCE DURING THIS HOSPITALIZATION. SHE DOES HAVE A HISTORY OF MIGRAINES WITH [facility] AND SHE HAD A MIGRAINE THE DAY PRIOR. I DID PROVIDE STROKE EDUCATION, ANSWERED HER QUESTIONS. SHE WILL BE SEEING DR WILSON TODAY, I REVIEWED HER CASE WITH HIM. SHE IS SCHEDULED FOR A CARDIAC CATH AT [facility] WITH DR CARLOS HOLDEN ON 1216 AM. SHE IS SUPPOSE TO STOP HER APIXABAN 2 DAYS PRIOR (WHICH HAS BEEN DONE). I WILL COMMUNICATE WITH DR CARLOS HOLDEN'S OFFICE AND NOTIFY HIM OF THIS EVENT.
[2021-09-26 12:00] VITALS: BP 120/55; PULSE 66; RESP 20; TEMP 36.7; O2SAT 94
--- NOTE | 2021-09-26 12:35 | MHC.SP.ADU ---
Referring provider: Dr. Llanos Reason for Referral: Word Finding Difficulty on Admission, TIA Type of Treatment: [id number] Evaluation Speech Sound Production WITH Language Date of Plan of Treatment: 09/26/21 Onset of Symptoms/Illness: 09/25/21 Date Treatment Started: 09/26/21 Medical Diagnosis: TIA. Pt was having outpt. PFD study, suddenly had word finding difficulty. Admitted to ED for further evaluation yesterday. Negative Head CT and Neck CTA. Regained speech w/in 24 Hrs. Primary Speech Language Diagnosis: Other Secondary Speech Language Diagnosis: History 76 Y.O Female, was being seen for testing by Maintenance [employer] as an outpt., reports that she suddenly lost speech, ability to recall words during a respiratory challenge test. Current Diagnosis for this event: TIA. Medical History: Acid Reflux Cardiovascular Disease COPD Diabetes High Blood Pressure Other: Chronic Anemia, GIB, CAD, Baretts Esophagus Medication List: Please see medical chart Recent Hospitalizations: Respiratory Needs: Room Air Patient Orientation: Alert & Oriented x 4 Social History: Employment Status: Highest level of education obtained: Current Living Situation: Lives independently at home with partner. Assistive Devices in use: Glasses/Contacts Comment: Past Speech Language Therapy: None Other Therapies Seen in Current Calendar Year: None Other: Swallowing History: Dysphagia Specific: Comments: Pre-eval Risk for Aspiration: Pre-evaluation Dietary Consistencies: Pre-eval Liquid Intake: Pre-eval Medication Intake: Reported Speech, Language, Cognition difficulties: Not Applicable Comments: Pt presents as having returned to Baseline, following loss of speech secondary to TIA. Quality of Life: Patient Stated Goal of Speech-Language Therapy: Assessment Speech Production: Within Functional Limits Clinical Impression: Intact Observations: WNL, at baseline. Informal Voice Assessment: Voice Loudness: Voice Nasal Resonance: Voice Oral Resonance: Voice Phonatory-based Quality: Voice Pitch: Voice Other Observations: Clinical Impression: Clinicial Observations: Tests of Speech & Lang Adults: WAB-R Clinical Impression: Intact Observations: Western Aphasia Battery/Bedside was used to assess language function. Pt presented with no difficulties with receptive or expressive language. Now having no difficulty with word retrieval. Has bright affect, socially engaging, using humor. Pt reports that she feels that she has returned to full abilities with language. Tests of Cognition: Clinical Impression: Observations: Augmentative and Alternative Communication: Observations: Impressions and Recommendations Summary: D/C from [employer] [facility]. S/L/C assessment today WNL. Pt has returned to baseline function. Impact on Daily Function/Activity Limitations: Daily Activities: None Interpersonal Interactions: None Education: None Employment: None Community: None Prognosis for Improvement: Excellent Comment: Pt is at baseline Recommendation for Speech Therapy: NA:Typical Evaluation Frequency/Duration: Date Range for Service Requested: Time to Reassess: Round Up Ring Hand Goals: Short Term Goals: Goal # : Goal Status: Goal# : Goal Status: Goal # : Goal Status: Goal # : Goal Status: Recommended Referrals to be Discussed with Primary Care Provider: Patient Education: Completed: Yes Patient/Caregiver Education: Comments/Barriers to Learning: Photographer Clinican/Clinical Fellow: No Supervisory Statement: Speech Language Pathologist: Damaris Washington M.A., CCC-[employer]
--- NOTE | 2021-09-26 12:51 | PM.DS ---
DS: Providers Provider Date of Service: 09/26/21 Date of admission: 09/25/21 17:44 Primary care physician: Sary Waite MD Consults: 09/25/21 17:54 Consult to Neurology Routine Consulting Provider: [facility] Reason for consultation: TIA Has provider been notified: No DS: Diagnosis Discharge Diagnosis (1) Transient cerebral ischemia: Status: Acute DS: Summary Hospital Course Hospital Course: 76 year old female with many medical problem including DM, HTN, HLD, h/o o PE, chronic anemia, GIB. She was having outpatient PFTs done today when she suddenly developped word finding difficulty and was rushed to the ED where work has been so far negative including guerita CT and head and neck CTA. She has nearly regain all her speech and besides that she has no other neurological deficit.. no visual changes, no weakness, no numbness, she had a slight headache that she attrubutes to not eating all day. Hospital course: Patient seen by Neurology: Patient's above symptoms thought to be related to possible migraine related . Discussed with patient's vocational training instructor Dr. Hernandez: plan for cardiac catheterization on so recommended to hold patient's apixaban for now, instead recommended 325 mg aspirin today and then 81 mg for next 2 days. in anticipation of cardiac catheterization apixaban is on hold above discussed with patient in detail length she understands the risks including stroke, She still want to proceed with holding apixaban and above plan.This information was conveyed to Dr. Hernandez at [facility] Further management out patiently as per PCP and Cardiology. Above management discussed with the patient in detail length she understand and in agreement with the above plan, time spent 50 minutes and 50% time spent on counseling. Significant findings: As above. Procedures performed: None. Treatment and response: As above. Complications: None. Time Spent with Patient Time attestation: Total time spent providing and/or coordinating discharge services: Discharge coordination time: Greater than 30 minutes Quality: Stroke Does the patient have a stroke diagnosis?: No Physical Exam Vital Signs: Vital Signs: Last Vital Signs Temp 98.0 F 09/26/21 12:00 Pulse 66 09/26/21 12:00 Resp 20 09/26/21 12:00 BP 120/55 L 09/26/21 12:00 Pulse Ox 94 09/26/21 12:00 BMI result Body Mass Index 35.1 Physical exam: Appearance: Alert.? Oriented X3.? not in distress.? Eyes: Pupils equal, round and reactive to light.? Sclera nonicteric.? ENT: Pharynx normal.? Moist mucous membranes. cvs: rrr, [id number] , no murmur res: clear to auscultation ,no rhonchii or wheezing abd: no rebound or guarding ,nt, bs present. ext pulses present , no cyanosis ,Gait well balanced well coordinated. neuro: axo3 , nonfocal. DS: Data Data Completed and Pending Completed studies during hospitalization [Text1]: Procedures Excision of Esophagus, Via Natural or Artificial Opening Endoscopic, Diagnostic (12/08/20) Excision of Jejunum, Via Natural or Artificial Opening Endoscopic, Diagnostic (12/08/20) Excision of Stomach, Pylorus, Via Natural or Artificial Opening Endoscopic, Diagnostic (12/08/20) Inspection of Upper Intestinal Tract, Via Natural or Artificial Opening Endoscopic (09/02/21) Transfusion of Nonautologous Red Blood Cells into Peripheral Vein, Percutaneous Approach (09/02/21) Labs on day of discharge: Laboratory Results - last 24 hr 09/25/21 09/25/21 09/25/21 14:56 15:06 15:06 WBC 7.5 RBC 3.65 L Hgb 10.7 L Hct 34.6 L MCV 94.8 MCH 29.3 MCHC 30.9 L RDW 14.9 Plt Count 270 MPV 10.7 Immature Gran % (Auto) 0.4 Neut % (Auto) 68.9 Lymph % (Auto) 18.0 L Pitt % (Auto) 10.9 Eos % (Auto) 1.5 Baso % (Auto) 0.3 Lymph # (Auto) 1.4 Pitt # (Auto) 0.8 Eos # (Auto) 0.1 Baso # (Auto) 0.0 Abs Immat Gran (auto) 0.03 Absolute Neuts (auto) 5.2 Absolute Nucleated RBC 0.000 Nucleated RBC % (auto) 0.0 Sodium 140 Potassium 5.1 Chloride 105 Carbon Dioxide 23 Anion Gap 17 BUN 22 H Creatinine 0.89 Estim Creat Clear Calc 52.4 Estimated GFR > 60 POC Glucose 86 Random Glucose 86 Calcium 9.7 Troponin I High Sens Triglycerides Cholesterol LDL Cholesterol, Calc HDL Cholesterol Influenza Type A (PCR) Influenza Type B (PCR) RSV RNA Qual (PCR) SARS-CoV-2 RNA (RT-PCR) 09/25/21 09/25/21 09/25/21 15:06 16:37 22:03 WBC RBC Hgb Hct MCV MCH MCHC RDW Plt Count MPV Immature Gran % (Auto) Neut % (Auto) Lymph % (Auto) Pitt % (Auto) Eos % (Auto) Baso % (Auto) Lymph # (Auto) Pitt # (Auto) Eos # (Auto) Baso # (Auto) Abs Immat Gran (auto) Absolute Neuts (auto) Absolute Nucleated RBC Nucleated RBC % (auto) Sodium Potassium Chloride Carbon Dioxide Anion Gap BUN Creatinine Estim Creat Clear Calc Estimated GFR POC Glucose 190 H Random Glucose Calcium Troponin I High Sens < 3.5 Triglycerides Cholesterol LDL Cholesterol, Calc HDL Cholesterol Influenza Type A (PCR) NEGATIVE Influenza Type B (PCR) NEGATIVE RSV RNA Qual (PCR) NEGATIVE SARS-CoV-2 RNA (RT-PCR) NEGATIVE 09/26/21 09/26/21 09/26/21 05:49 07:29 11:03 WBC RBC Hgb Hct MCV MCH MCHC RDW Plt Count MPV Immature Gran % (Auto) Neut % (Auto) Lymph % (Auto) Pitt % (Auto) Eos % (Auto) Baso % (Auto) Lymph # (Auto) Pitt # (Auto) Eos # (Auto) Baso # (Auto) Abs Immat Gran (auto) Absolute Neuts (auto) Absolute Nucleated RBC Nucleated RBC % (auto) Sodium Potassium Chloride Carbon Dioxide Anion Gap BUN Creatinine Estim Creat Clear Calc Estimated GFR POC Glucose 132 H 143 H Random Glucose Calcium Troponin I High Sens Triglycerides 153 Cholesterol 156 LDL Cholesterol, Calc 86 HDL Cholesterol 40 Influenza Type A (PCR) Influenza Type B (PCR) RSV RNA Qual (PCR) SARS-CoV-2 RNA (RT-PCR) Additional Comments Additional comments: cta haed/neck: IMPRESSION: CT head: No intracranial hemorrhage or large acute infarction. ? CTA neck: No hemodynamically significant stenosis in the major arteries of the neck. Atheromatous changes are noted without significant stenosis. ? CTA head: No large vessel occlusion or significant stenosis within the intracranial circulation. Atheromatous changes are noted but without significant stenosis. ? This critical result was discussed with Dr. Norris on 09/25/2021 3:40 PM, and it was ascertained that the content and urgency of the report was understood at the time of direct communication. Discharge Plan Discharge Patient Disposition: Home, Self-Care Discharge Diagnosis: possible migrane Referrals: Sary Waite MD [Primary Care Provider] - 1 Week Discharge Medications: New aspirin 81 mg capsule 81 mg PO DAILY Qty: 2 RF: 0 Continued cyanocobalamin (vitamin B-12) 5,000 mcg tablet,disintegrating 5,000 mcg PO DAILY Qty: 30 RF: 1 folic acid 1 mg tablet 1 mg PO DAILY 90 Days Qty: 90 RF: 2 dicyclomine 20 mg tablet 20 mg PO BID 90 Days Qty: 180 RF: 1 omeprazole 40 mg capsule,delayed release(DR/EC) 40 mg PO DAILY 90 Days Qty: 90 RF: 2 sertraline 100 mg tablet 100 mg PO DAILY Qty: 90 RF: 1 alprazolam 0.25 mg tablet 0.25 mg PO DAILY PRN (Reason: anxiety) Qty: 20 RF: 0 lisinopril 2.5 mg tablet 2.5 mg PO DAILY Qty: 90 RF: 1 trazodone 50 mg tablet 50 mg PO BEDTIME Qty: 90 RF: 1 metoprolol succinate 50 mg tablet extended release 24 hr 150 mg PO BEDTIME RF: 0 atorvastatin 80 mg tablet 80 mg PO BEDTIME RF: 0 clotrimazole 2 % cream 1 appful vaginal BEDTIME PRN (Reason: VAGINAL ITCH) RF: 0 glipizide 5 mg tablet 5 mg PO DAILY RF: 0 metformin 500 mg tablet 500 mg PO DAILY RF: 0 verapamil 100 mg capsule, [address] 100 mg PO BEDTIME RF: 0 ferrous fumarate 325 mg (106 mg iron) tablet 325 mg PO DAILY RF: 0 cholecalciferol (vitamin D3) 50 mcg (2,000 unit) capsule 50 mcg PO DAILY RF: 0 acetaminophen 500 mg tablet 500 mg PO BID RF: 0 Held apixaban 5 mg tablet 5 mg PO Q12H Qty: 60 RF: 2 Hold Instructions: Resume on 09/28/21. hold util cardiac cath completed - Further use as per her vocational training instructor in [facility] Dr. tse Discharge Orders: Discharge Order (Routine); Ordered 09/26/21 Ordered By: Lyndsey Llanos Diet: advance to usual diet, diabetic diet, low fat, low cholesterol and low salt diet Activity on Discharge: As tolerated Stand Alone Forms: Patient Portal Discharge page Care Plan Goals: Patient came to the hospital for possible speech difficulty thought to be TIA versus migraine/aura- seen by Neurology: recommendation pending Health Concerns: as above. Plan of Treatment: As above. Assessment: As above.
--- NOTE | 2021-09-26 12:53 | P.PNIM_ITS ---
Subjective Subjective Date of Service: 09/26/21 Interval History: tia vs migrnae Physical Exam Vital Signs: Vital Signs: Last Vital Signs Temp 98.0 F 09/26/21 12:00 Pulse 66 09/26/21 12:00 Resp 20 09/26/21 12:00 BP 120/55 L 09/26/21 12:00 Pulse Ox 94 09/26/21 12:00 BMI result Body Mass Index 35.1 Objective Data Active Medications Acetaminophen (Acetaminophen 325 Mg Tablet) 650 mg PO BID [facility] Last Admin: 09/26/21 08:40 Dose: 650 mg Documented by: PEYTON Acetaminophen (Acetaminophen 325 Mg Tablet) 650 mg PO Q8H PRN PRN Reason: Pain, Mild (Pain Scale 1-3) Alprazolam (Alprazolam 0.25 Mg Tablet) 0.25 mg PO DAILY PRN PRN Reason: anxiety Last Admin: 09/25/21 23:41 Dose: 0.25 mg Documented by: CARLOS Apixaban (Apixaban 5 Mg Tablet) 5 mg PO Q12H [facility] Last Admin: 09/26/21 05:40 Dose: Not Given Documented by: CARLOS Non-Admin Reason: cardiac cath on Atorvastatin Calcium (Atorvastatin Calcium 80 Mg Tablet) 80 mg PO BEDTIME [facility] Last Admin: 09/25/21 21:41 Dose: 80 mg Documented by: CARLOS Clotrimazole (Clotrimazole 1 % Vaginal Cream 45 Gm Tube) 1 appl VAGINAL BEDTIME PRN PRN Reason: VAGINAL ITCH Cyanocobalamin (Cyanocobalamin (Vitamin B-12) 1,000 Mcg Tablet) 5,000 mcg PO DAILY [facility] Last Admin: 09/26/21 08:41 Dose: 5,000 mcg Documented by: PEYTON Dicyclomine HCl (Dicyclomine Hcl 10 Mg Capsule) 20 mg PO BID [facility] Last Admin: 09/26/21 08:37 Dose: 20 mg Documented by: PEYTON Ferrous Sulfate (Ferrous Sulfate 324 Mg Tablet.) 324 mg PO DAILY [facility] Last Admin: 09/26/21 08:37 Dose: 324 mg Documented by: PEYTON Folic Acid (Folic Acid 1 Mg Tablet) 1 mg PO DAILY [facility] Last Admin: 09/26/21 08:39 Dose: 1 mg Documented by: PEYTON Glipizide (Glipizide 5 Mg Tablet) 5 mg PO DAILY [facility] Last Admin: 09/26/21 08:36 Dose: 5 mg Documented by: PEYTON Lisinopril (Lisinopril 2.5 Mg Tablet) 2.5 mg PO DAILY [facility]; Protocol Last Admin: 09/26/21 08:40 Dose: 2.5 mg Documented by: PEYTON Metformin HCl (Metformin Hcl 500 Mg Tablet) 500 mg PO DAILY [facility] Last Admin: 09/26/21 08:38 Dose: 500 mg Documented by: PEYTON Metoprolol Succinate (Metoprolol Succinate Er 50 Mg Tab.Er.24h) 150 mg PO BEDTIME [facility]; Protocol Last Admin: 09/25/21 21:46 Dose: Not Given Documented by: CARLOS Non-Admin Reason: Decreased Heart Rate Omeprazole (Omeprazole 40 Mg Capsule.Dr) 40 mg PO DAILY@0630 [facility] Last Admin: 09/26/21 05:49 Dose: 40 mg Documented by: ANTOIC Pharmacy Consult (Consult Rx Perform Med Rec) 1 each MISCELLANE ONCE PRN PRN Reason: Consult order Sertraline HCl (Sertraline Hcl 100 Mg Tablet) 100 mg PO DAILY [facility] Last Admin: 09/26/21 08:41 Dose: 100 mg Documented by: PEYTON Sodium Chloride (0.9 % Sodium Chloride Flush 3 Ml Syringe) [facility] Last Admin: 09/26/21 08:36 Dose: 3 ml Documented by: PEYTON Trazodone HCl (Trazodone Hcl 50 Mg Tablet) 50 mg PO BEDTIME [facility] Last Admin: 09/25/21 21:45 Dose: 50 mg Documented by: CARLOS Verapamil HCl (Verapamil Hcl Sr 100 Mg Cap24h.Pct) 100 mg PO BEDTIME [facility]; Protocol Last Admin: 09/25/21 21:46 Dose: Not Given Documented by: CARLOS Non-Admin Reason: Decreased Blood Pressure Vitamin D (Cholecalciferol (Vitamin D3) 25 Mcg Tablet) 50 mcg PO DAILY [facility] Last Admin: 09/26/21 08:38 Dose: 50 mcg Documented by: PEYTON Labs CBC & Chem 7: 09/25/21 15:06 09/25/21 15:06 Labs: Laboratory Results - last 24 hr 09/25/21 09/25/21 09/25/21 14:56 15:06 15:06 MCV 94.8 MCH 29.3 MCHC 30.9 L RDW 14.9 Plt Count 270 MPV 10.7 Immature Gran % (Auto) 0.4 Neut % (Auto) 68.9 Lymph % (Auto) 18.0 L Drew % (Auto) 10.9 Eos % (Auto) 1.5 Baso % (Auto) 0.3 Lymph # (Auto) 1.4 Drew # (Auto) 0.8 Eos # (Auto) 0.1 Baso # (Auto) 0.0 Abs Immat Gran (auto) 0.03 Absolute Neuts (auto) 5.2 Absolute Nucleated RBC 0.000 Nucleated RBC % (auto) 0.0 Anion Gap 17 Estim Creat Clear Calc 52.4 Estimated GFR > 60 POC Glucose 86 Random Glucose 86 Calcium 9.7 Troponin I High Sens Triglycerides Cholesterol LDL Cholesterol, Calc HDL Cholesterol Influenza Type A (PCR) Influenza Type B (PCR) RSV RNA Qual (PCR) SARS-CoV-2 RNA (RT-PCR) 09/25/21 09/25/21 09/25/21 15:06 16:37 22:03 MCV MCH MCHC RDW Plt Count MPV Immature Gran % (Auto) Neut % (Auto) Lymph % (Auto) Drew % (Auto) Eos % (Auto) Baso % (Auto) Lymph # (Auto) Drew # (Auto) Eos # (Auto) Baso # (Auto) Abs Immat Gran (auto) Absolute Neuts (auto) Absolute Nucleated RBC Nucleated RBC % (auto) Anion Gap Estim Creat Clear Calc Estimated GFR POC Glucose 190 H Random Glucose Calcium Troponin I High Sens < 3.5 Triglycerides Cholesterol LDL Cholesterol, Calc HDL Cholesterol Influenza Type A (PCR) NEGATIVE Influenza Type B (PCR) NEGATIVE RSV RNA Qual (PCR) NEGATIVE SARS-CoV-2 RNA (RT-PCR) NEGATIVE 09/26/21 09/26/21 09/26/21 05:49 07:29 11:03 MCV MCH MCHC RDW Plt Count MPV Immature Gran % (Auto) Neut % (Auto) Lymph % (Auto) Drew % (Auto) Eos % (Auto) Baso % (Auto) Lymph # (Auto) Drew # (Auto) Eos # (Auto) Baso # (Auto) Abs Immat Gran (auto) Absolute Neuts (auto) Absolute Nucleated RBC Nucleated RBC % (auto) Anion Gap Estim Creat Clear Calc Estimated GFR POC Glucose 132 H 143 H Random Glucose Calcium Troponin I High Sens Triglycerides 153 Cholesterol 156 LDL Cholesterol, Calc 86 HDL Cholesterol 40 Influenza Type A (PCR) Influenza Type B (PCR) RSV RNA Qual (PCR) SARS-CoV-2 RNA (RT-PCR) Quality VTE VTE Risk Level:: Medical - moderate - high VTE Device Contraindication: N/A - Device Ordered VTE Drug Contraindication: N/A - Med Ordered
--- NOTE | 2021-09-26 15:42 | MHC.STROKE ---
I SPOKE WITH DR CARLOS HOLDEN, WE REVIEWED THE PATIENTS HOSPITALS COURSE, SCANS AND LABS. I HAD FAXED THEM TO HIM. HE WILL STILL PLAN ON DOING THE CARDIAC CATH ON 09/28/21 AT 0730. HE IS RECOMMENDING ASPIRIN 81MG (4 TABLETS NOW), THEN ASPIRIN 81MG IN THE AM FOR THE NEXT 2 DAYS SATURDAY AND SATURDAY. I DID RELAY THIS INFORMATION TO DR POSEY. HE IS PLANNING ON DISCHARGING HER TONIGHT. I ALSO SPOKE WITH DR WILSON AND BASED ON HER STORY, IT IS MORE LIKELY A MIGRAINE. SEE HIS NOTE. I WILL FAX HIS NOTE TO DR HOLDEN WHEN IT IS AVAILABLE. I DID RELAY ALL OF THIS INFORMATION TO THE PATIENT AND NURSE.
[2021-09-26 16:00] VITALS: BP 145/63; PULSE 89; RESP 19; TEMP 36.9; O2SAT 98
[2021-09-26] MEDS: Aspirin Enteric Coated 325 MG TABLET.DR PO (16:35)
--- NOTE | 2021-09-26 16:46 | P.CNNE_ITS ---
History of Present Illness Data of Consult Service Date: 09/26/21 Primary Care Provider: Sary Waite MD HPI Reason for consult: Transient episode of impaired speech and optical migraine This is a 76-year-old woman who is scheduled for a cardiac catheterization on September 28. She had a pulmonary embolism earlier in the year and no cause was found and she has been on anticoagulants since then.She came in for a pulmonary function test and while awaiting she developed one of for optical migr aines which she also had the day before and then that she was going through her PFTs with hyperventilation and breathing out forcibly, she continued to have the visual phenomena and in addition, she developed difficulty speaking even though she wanted to talk. This lasted perhaps 10 min. by the time she got to the emergency room, it had improved. She continued to have a visual problems for a bit longer and then got a mild headache. She's never had a speech impairment before with her migraine. There was no facial droop or lateralized weakness and numbness. All of her symptoms have resolved. She had a CT scan of the head and a CTA of the head and neck which were unremarkable. She feels back to normal. Review of Systems Neurologic: Denies Sensory deficit (Neuro) PMFSH Past Medical History Medical History AAA (abdominal aortic aneurysm) (~2008) Anemia Arthritis AVM (arteriovenous malformation) of colon Barretts esophagus Bilateral pulmonary embolism (~10/2020) Bleeding hemorrhoids CAD (coronary artery disease) COPD (chronic obstructive pulmonary disease) Depression Essential hypertension GERD without esophagitis GIB (gastrointestinal bleeding) History of blood transfusion Irritable bowel syndrome with both constipation and diarrhea Left upper lobe pulmonary nodule Macrocytic anemia Macrocytic anemia with vitamin B12 deficiency Major depression in full remission Mixed dyslipidemia Nonrheumatic aortic (valve) stenosis Nonrheumatic mitral valve regurgitation Normocytic anemia Obesity On anticoagulant therapy (~10/2020) On beta [place] at home Pulmonary nodules Restless leg syndrome Skin lesion of chest wall Type 2 diabetes mellitus without complication, without long-term current use of insulin Vitamin B12 deficiency Family History Family History Father HTN (hypertension) Myocardial infarction Hyperlipidemia Abdominal aneurysm Mother HTN (hypertension) Myocardial infarction Hyperlipidemia Brother Alzheimer's disease Substance abuse Sister Rheumatoid arthritis Brother Rheumatoid arthritis Maternal Aunt Diabetes mellitus Lung cancer Maternal Uncle Diabetes mellitus Son No problems noted. Daughter No problems noted. Surgical History Surgical History History of bilateral breast reduction surgery History of coronary artery bypass graft x 2 History of heart artery stent History of total right knee replacement (TKR) Hx of colonoscopy Hx of esophagogastroduodenoscopy Hx of hysterectomy S/P excision of lipoma Social History Social History Household Members: Spouse Housing: House Do you presently have visiting nurse or other home services: No Alcohol intake: current Alcohol intake frequency: holidays/special occasions only Patient Tobacco Use Status: Former Tobacco user Tobacco use type: Cigarette Cigarette Packs Per Day: 2 Years Smoked: 30 e-Cigarette/Vaping Use: Never Used Second Hand Smoke Exposure: No Substance Use Type: Marijuana Advance Directives: No Advance Directives Information Provided: No service: No Current occupational status: retired [employer] Allergies Allergy/AdvReac Type Severity Reaction Status Date / Time sulfamethoxazole Allergy Severe Rash Verified 09/19/21 13:01 [From Bactrim] adhesive tape [ADHESIVE TAPE] Allergy Intermediate BLISTERS Verified 09/19/21 13:01 clonidine Allergy makes pt Verified 09/19/21 13:01 hulusinate adhesive AdvReac Severe BLISTERS Verified 09/19/21 13:01 gabapentin AdvReac Severe hallucinati Verified 09/19/21 13:01 on morphine AdvReac Severe hallucinati Verified 09/19/21 13:01 on glue AdvReac Severe BLISTERS Uncoded 09/13/21 14:58 Active Medications: Current Medications Acetaminophen (Acetaminophen 325 Mg Tablet) 650 mg PO BID CHRISTY Last Admin: 09/26/21 08:40 Dose: 650 mg Documented by: Acetaminophen (Acetaminophen 325 Mg Tablet) 650 mg PO Q8H PRN PRN Reason: Pain, Mild (Pain Scale 1-3) Alprazolam (Alprazolam 0.25 Mg Tablet) 0.25 mg PO DAILY PRN PRN Reason: anxiety Last Admin: 09/25/21 23:41 Dose: 0.25 mg Documented by: Apixaban (Apixaban 5 Mg Tablet) 5 mg PO Q12H [facility] Last Admin: 09/26/21 05:40 Dose: Not Given Documented by: Atorvastatin Calcium (Atorvastatin Calcium 80 Mg Tablet) 80 mg PO BEDTIME [facility] Last Admin: 09/25/21 21:41 Dose: 80 mg Documented by: Clotrimazole (Clotrimazole 1 % Vaginal Cream 45 Gm Tube) 1 appl VAGINAL BEDTIME PRN PRN Reason: VAGINAL ITCH Cyanocobalamin (Cyanocobalamin (Vitamin B-12) 1,000 Mcg Tablet) 5,000 mcg PO DAILY [facility] Last Admin: 09/26/21 08:41 Dose: 5,000 mcg Documented by: Dicyclomine HCl (Dicyclomine Hcl 10 Mg Capsule) 20 mg PO BID [facility] Last Admin: 09/26/21 08:37 Dose: 20 mg Documented by: Ferrous Sulfate (Ferrous Sulfate 324 Mg Tablet.) 324 mg PO DAILY [facility] Last Admin: 09/26/21 08:37 Dose: 324 mg Documented by: Folic Acid (Folic Acid 1 Mg Tablet) 1 mg PO DAILY [facility] Last Admin: 09/26/21 08:39 Dose: 1 mg Documented by: Glipizide (Glipizide 5 Mg Tablet) 5 mg PO DAILY [facility] Last Admin: 09/26/21 08:36 Dose: 5 mg Documented by: Lisinopril (Lisinopril 2.5 Mg Tablet) 2.5 mg PO DAILY [facility]; Protocol Last Admin: 09/26/21 08:40 Dose: 2.5 mg Documented by: Metformin HCl (Metformin Hcl 500 Mg Tablet) 500 mg PO DAILY [facility] Last Admin: 09/26/21 08:38 Dose: 500 mg Documented by: Metoprolol Succinate (Metoprolol Succinate Er 50 Mg Tab.Er.24h) 150 mg PO BEDTIME [facility]; Protocol Last Admin: 09/25/21 21:46 Dose: Not Given Documented by: Omeprazole (Omeprazole 40 Mg Capsule.) 40 mg PO DAILY@0630 [facility] Last Admin: 09/26/21 05:49 Dose: 40 mg Documented by: Pharmacy Consult (Consult Rx Perform Med Rec) 1 each MISCELLANE ONCE PRN PRN Reason: Consult order Sertraline HCl (Sertraline Hcl 100 Mg Tablet) 100 mg PO DAILY [facility] Last Admin: 09/26/21 08:41 Dose: 100 mg Documented by: Sodium Chloride (0.9 % Sodium Chloride Flush 3 Ml Syringe) 3 ml IVFLUSH QSHIFT [facility] Last Admin: 09/26/21 16:37 Dose: 3 ml Documented by: Trazodone HCl (Trazodone Hcl 50 Mg Tablet) 50 mg PO BEDTIME [facility] Last Admin: 09/25/21 21:45 Dose: 50 mg Documented by: Verapamil HCl (Verapamil Hcl Sr 100 Mg Cap24h.Pct) 100 mg PO BEDTIME [facility]; Protocol Last Admin: 09/25/21 21:46 Dose: Not Given Documented by: Vitamin D (Cholecalciferol (Vitamin D3) 25 Mcg Tablet) 50 mcg PO DAILY [facility] Last Admin: 09/26/21 08:38 Dose: 50 mcg Documented by: Home Medications Medication Instructions Recorded Confirmed Last Taken Type cholecalciferol (vitamin D3) 50 50 mcg PO DAILY 10/26/20 09/25/21 09/24/21 History mcg (2,000 unit) capsule ferrous fumarate 325 mg (106 mg 325 mg PO DAILY 10/26/20 09/25/21 09/24/21 History iron) tablet glipizide 5 mg tablet 5 mg PO DAILY 10/26/20 09/25/21 09/24/21 History metformin 500 mg tablet 500 mg PO DAILY 10/26/20 09/25/21 12/08/20 History verapamil 100 mg capsule 24hr 100 mg PO BEDTIME 10/26/20 09/25/21 09/24/[address],ext.release acetaminophen 500 mg tablet 500 mg PO BID 11/07/20 09/25/21 09/24/21 History clotrimazole 2 % vaginal cream 1 appful VAGINAL BEDTIME PRN 12/28/20 09/25/21 Unknown History atorvastatin 80 mg tablet 80 mg PO BEDTIME 09/25/21 09/25/21 09/24/21 History metoprolol succinate 50 mg 150 mg PO BEDTIME 09/25/21 09/25/21 09/24/21 History tablet,extended release 24 hr Physical Exam Vital Signs: Vital Signs: Last Vital Signs Temp 98.0 F 09/26/21 12:00 Pulse 66 09/26/21 12:00 Resp 20 09/26/21 12:00 BP 120/55 L 09/26/21 12:00 Pulse Ox 94 09/26/21 12:00 BMI result Body Mass Index 35.1 Const: General: healthy appearing Nutritional Appearance: average body habitus Orientation/consciousness: oriented to person and patient oriented x3 Limitations: no limitations HENMT: Head: Yes normal to inspection Ears: external ears normal General nose exam: Normal external nose present Mouth: Normal oral and palatal mucosa present and oropharynx normal Throat: Yes posterior oropharynx normal Eyes: General: appearance normal, both eyes and all related structures Neck: Neck: Yes normal visual inspection Chest: Chest palpation & inspection: normal inspection of the chest Resp: Auscultation: clear to auscultation bilaterally Cardio: Jugular venous distension: no JVD Rate: regular rate Rhythm: regular rhythm Heart sounds: S1 normal heart sound present and S2 normal heart sound present GI: Inspection: Yes normal to inspection Palpation (GI): Soft to palpation, nontender and No hepatosplenomegaly present Auscultation: normal bowel sounds : General: Yes no CVA tenderness Back/Spine/Pelvis: Back: no CVA tenderness Skin: General skin exam: no rashes or lesions noted Neuro: Other: Alert and oriented with no dysphasia or dysarthria. Normal cranial nerves. Nonfocal neurological examination. General: oriented to person and patient oriented x3 Cranial nerves: Yes CN's II-XII intact bilaterally Motor exam (neuro): 5/5 motor strength present throughout Sensory Exam: No Sensory deficit (Neuro) Extrem: General: Yes normal to inspection Psych: Appearance: grossly normal Results Labs CBC & Chem 7: 09/25/21 15:06 09/25/21 15:06 Assessment and Plan (1) Transient cerebral ischemia: Qualifiers: Transient cerebral ischemia type: unspecified Qualified Code(s): G45.9 - Transient cerebral ischemic attack, unspecified Status: Acute (2) Migraine with aura: Status: Acute No further neurological intervention is necessary. It appears that her transient speech impediment was harder for her migraine aura and may have been exacerbated by the hyperventilation of the pulmonary function tests. She has no evidence of for cerebrovascular disease and her CTA of the head and neck were unremarkable. She is cleared to proceed with a cardiac catheterization on 09/28/21. This information was conveyed to Dr. Hernandez at [facility] 76/F with DM, HTN, CAD, HLD here with transient aphasia compatible with TIA plan: TIA--neuro checks, check lipids in AM, antiplets (baby ASA 3 times a week--she has risk bleeding), neuro eval.. No indication for PT/OT, but speech eval tomorrow h/o of PE--APixiban HLD--Lipitor HTN--Lisinopril, Metoprolol, Verapamil Diabetes--continue Metformin, Glipizide. Add SSI Chronic iron deficiency anemia--Iron supplement For all chronic medical issues--Will continue meds per med rec. DVT--Eliquis Procedures Date of Service Date of Service: 09/26/21
[2021-09-26 17:16] LABS: Glucose, Whole Blood 129 mg/dL (60-115)
--- NOTE | 2021-09-27 10:08 | MHC.CM.PN ---
Pt discharged last PM after CM office hours. Home no services family transport.
== END 2021-09-26 17:47 | disposition home or self-care (01) ==
LOC: HO.ED 16:22 → HO.EDOVER 17:58 → HO.IMC 09-26 03:26
PROVIDERS: Admitting Provider Internal Medicine; Emergency Provider Emergency Medicine; PCP Internal Medicine; Visit Provider Internal Medicine
DX: G43.109 Migraine with aura, not intractable, without status migrainosus (principal); R47.01 Aphasia; I49.3 Ventricular premature depolarization; I71.4 Abdominal aortic aneurysm, without rupture; I25.10 Atherosclerotic heart disease of native coronary artery without angina pectoris; I10 Essential (primary) hypertension; I26.99 Other pulmonary embolism without acute cor pulmonale; D50.8 Other iron deficiency anemias; J43.9 Emphysema, unspecified; E11.9 Type 2 diabetes mellitus without complications; E53.8 Deficiency of other specified B group vitamins; E78.2 Mixed hyperlipidemia; Q27.39 Arteriovenous malformation, other site; Z20.822 Contact with and (suspected) exposure to COVID-19; Z87.891 Personal history of nicotine dependence; Z95.1 Presence of aortocoronary bypass graft; Z95.5 Presence of coronary angioplasty implant and graft; Z96.651 Presence of right artificial knee joint; Z82.49 Family history of ischemic heart disease and other diseases of the circulatory system; Z83.3 Family history of diabetes mellitus; Z80.1 Family history of malignant neoplasm of trachea, bronchus and lung; Z88.6 Allergy status to analgesic agent; Z88.2 Allergy status to sulfonamides; T78.49XA Other allergy, initial encounter; Z79.84 Long term (current) use of oral hypoglycemic drugs; Z79.899 Other long term (current) drug therapy
CPT/HCPCS: 0241U; 36415; 70450; 70496; 70498; 80048; 80061; 82947; 84484; 85025; 92523; 93005; 99218; 99219; 99285; Q9967

== ENCOUNTER → 2021-10-02 12:49 | Outpatient (BNVA) | payer MEDICARE, SELFPAY | PROVIDERS: PCP Internal Medicine; Visit Provider Hospitalist | DX: R91.8 Other nonspecific abnormal finding of lung field (principal); I26.99 Other pulmonary embolism without acute cor pulmonale; I25.10 Atherosclerotic heart disease of native coronary artery without angina pectoris; I35.0 Nonrheumatic aortic (valve) stenosis | CPT/HCPCS: 99212 ==

== ENCOUNTER → 2022-01-04 11:08 | Outpatient (BNVA) | payer MEDICARE, SELFPAY | PROVIDERS: PCP Internal Medicine; Visit Provider Hospitalist | DX: R91.8 Other nonspecific abnormal finding of lung field (principal); I26.99 Other pulmonary embolism without acute cor pulmonale; I25.10 Atherosclerotic heart disease of native coronary artery without angina pectoris; I35.0 Nonrheumatic aortic (valve) stenosis | CPT/HCPCS: Q3014 ==

== ENCOUNTER → 2022-01-12 08:21 | Outpatient (BNVA) | payer MEDICARE, SELFPAY | PROVIDERS: PCP Internal Medicine; Visit Provider Surgery | DX: R91.8 Other nonspecific abnormal finding of lung field (principal); I26.99 Other pulmonary embolism without acute cor pulmonale; I25.10 Atherosclerotic heart disease of native coronary artery without angina pectoris; I35.0 Nonrheumatic aortic (valve) stenosis | CPT/HCPCS: 99202 ==

== ENCOUNTER 2022-01-16 10:25 | Outpatient (REF) | payer MEDICARE, SELFPAY ==
[2022-01-16 11:29] LABS: MANUAL DIFF FLAG NO
[2022-01-16 11:38] LABS: Basophils Percent Auto 0.4 % (0-2); Eosinophils Absolute Auto 0.1 X10*3/uL (0.0-0.4); Eosinophils Percent Auto 2.3 % (0-4); Hemoglobin 11.4 g/dl (12.0-16.0); Imm Gran Abs Auto 0.01 X10*3/uL (0.00-0.03); Imm Gran Pct Auto 0.2 % (0.0-0.4); Lymphocytes Absolute Auto 1.3 X10*3/uL (1.2-4.9); Lymphocytes Percent Auto 24.2 % (20-40); Mean Corpuscular HGB Conc 32.6 g/dl (31.0-35.0); Mean Corpuscular Hemoglobin 31.8 pg (27.0-33.0); Mean Corpuscular Volume 97.5 fL (80.0-98.0); Monocytes Absolute Auto 0.5 X10*3/uL (0.1-1.2); Monocytes Percent Auto 9.7 % (2-11); Neutrophils Absolute Auto 3.5 x10*3/uL (2.0-8.3); Neutrophils Percent Auto 63.2 % (45-73); Platelet Count 244 X10*3/uL (160-400); Red Blood Count 3.59 X10*6/uL (4.20-5.50); Red Cell Distribution Width 14.3 % (11.0-16.0); White Blood Count 5.5 X10*3/uL (4.8-10.8)
[2022-01-16 11:43] LABS: Estimated Average Glucose 123 mg/dL; Hemoglobin A1c % 5.9 %
[2022-01-16 12:09] LABS: Microalbum/Creatinine Ratio Ur 7.4 ug/mg cr
[2022-01-16 12:15] LABS: Cholesterol 160 mg/dL; HDL Cholesterol 45 mg/dL; Iron 62 mcg/dL (30-160); LDL Cholesterol Calculated 74 mg/dl; Percent Iron Saturation 17 % (15-50); Total Iron Binding Capacity 357 mcg/dL (228-428); Triglycerides 207 mg/dL; Unsaturated Iron Binding 295 ug/dL
[2022-01-16 12:23] LABS: Vitamin D 25-OH Total 43.2 ng/mL (>30)
[2022-01-16 12:38] LABS: Folate 19.3 ng/mL (> or = 4.0); Vitamin B12 > 2000 pg/mL (200-900)
== END 2022-01-16 10:26 | disposition home or self-care (01) ==
LOC: HO.HMGCLDS 10:25
PROVIDERS: PCP Internal Medicine; Visit Provider Internal Medicine
DX: D53.9 Nutritional anemia, unspecified (principal); E11.9 Type 2 diabetes mellitus without complications; E53.8 Deficiency of other specified B group vitamins; E78.2 Mixed hyperlipidemia; Z78.0 Asymptomatic menopausal state; K55.20 Angiodysplasia of colon without hemorrhage; K21.9 Gastro-esophageal reflux disease without esophagitis
CPT/HCPCS: 36415; 80061; 82043; 82306; 82607; 82746; 83036; 83540; 85025

== ENCOUNTER 2022-01-24 16:13 | Outpatient (REF) | payer MEDICARE, SELFPAY ==
--- NOTE | ~2022-01-24 | CT_ITS ---
EXAMINATION: CT CHEST WITHOUT CONTRAST CLINICAL INFORMATION: Other nonspecific abnormal finding of lung field COMPARISON: Previous chest CT scans most recent July 2021 and November 2021 and PET/CT scan August 2021 TECHNIQUE: Multidetector volumetric CT imaging of the chest was done. Axial MIP volume rendering provided. Sagittal and coronal reformatted images were obtained. This CT examination was performed using dose optimization techniques as appropriate, variously including the following: *Automated exposure control *Adjustment of mA and/or kV according to patient size (this includes techniques or standardized protocols for targeted exams where dose is matched to indication/reason for exam; i.e. extremities or head) *Use of iterative reconstruction technique DLP: 183 mGy-cm FINDINGS: LUNGS: There is evidence of severe emphysema. The pulmonary nodules are stable. Largest pulmonary nodule is a 7x 7 mm peripheral or subpleural left upper lobe nodule adjacent to the fissure axial image 193 series 7. This is heterogeneous in attenuation and may contain some fat versus adjacent fatty pleural thickening. No new pulmonary nodule is seen. No endobronchial or endotracheal lesion is seen. MEDIASTINUM: There are post-CABG changes. The heart does not appear enlarged. There is coronary artery and aortic valve calcification. There is no pericardial effusion. Visualized thyroid gland is normal. There are small mediastinal lymph nodes. No enlarged lymph nodes are seen. PLEURA: There is no pleural effusion. No pleural mass or thickening. AXILLA: No lymphadenopathy. UPPER ABDOMEN: There are small bilateral renal stones. The visualized upper abdominal aorta is calcified. OSSEOUS STRUCTURES: There are degenerative changes of the spine. There are median sternotomy changes. CT/CT chest wo con IMPRESSION: Emphysema. Stable pulmonary nodules, largest measuring 7 x 9 mm in the left upper lobe. Fleischner guidelines were followed.
== END 2022-01-24 16:14 | disposition home or self-care (01) ==
LOC: HO.CT 16:13
PROVIDERS: Visit Provider Hospitalist
DX: R91.8 Other nonspecific abnormal finding of lung field (principal)
CPT/HCPCS: 71250

== ENCOUNTER 2022-02-14 09:09 | Outpatient (REF) | payer MEDICARE, SELFPAY ==
[2022-02-14 09:42] LABS: Hematocrit 27.3 % (37.0-47.0); Hemoglobin 8.6 g/dl (12.0-16.0); Mean Corpuscular HGB Conc 31.5 g/dl (31.0-35.0); Mean Corpuscular Hemoglobin 31.7 pg (27.0-33.0); Mean Corpuscular Volume 100.7 fL (80.0-98.0); Mean Platelet Volume 10.4 fL (9.4-12.3); Platelet Count 239 X10*3/uL (160-400); Red Blood Count 2.71 X10*6/uL (4.20-5.50); White Blood Count 5.5 X10*3/uL (4.8-10.8)
[2022-02-14 09:53] LABS: Prothrombin Time 11.6 SEC (9.9-13.0)
[2022-02-14 09:55] LABS: Partial Thromboplastin Time 28.2 SEC (24.1-38.0)
== END 2022-02-14 09:10 | disposition home or self-care (01) ==
LOC: HO.LAB 09:09
PROVIDERS: PCP Internal Medicine; Visit Provider Surgery
DX: R91.8 Other nonspecific abnormal finding of lung field (principal)
CPT/HCPCS: 36415; 85027; 85610; 85730

== ENCOUNTER 2022-02-15 11:43 | Day surgery (SDC) | payer MEDICARE, SELFPAY ==
--- NOTE | ~2022-02-15 | CT_ITS ---
PROCEDURE: CT GUIDED ASPIRATION, FINE NEEDLE, WITH IMAGE GUIDANCE CLINICAL INFORMATION: Left upper lobe nodule for biopsy. COMPARISON: 01/24/2022 and studies dating back to 02/13/2021. TECHNIQUE: CT fluoroscopic-guided left upper lobe nodule biopsy. This CT examination was performed using dose optimization techniques as appropriate, variously including the following: *Automated exposure control *Adjustment of mA and/or kV according to patient size (this includes techniques or standardized protocols for targeted exams where dose is matched to indication/reason for exam; i.e. extremities or head) *Use of iterative reconstruction technique DLP: 369 mGy-cm FINDINGS: Informed consent was obtained from the patient prior to the procedure. During this process, the procedure and potential alternatives were explained, along with the intended outcome and benefits. The risks of the procedure, as well as the risk of not doing the procedure, were discussed. The patient was given the opportunity to ask questions regarding the procedure and appeared competent to make medical decisions. A signed consent form which documents this discussion was placed in the medical record. CT scanning demonstrates 8 mm nodule subpleural location in the left upper lobe adjacent to the major fissure. There are moderate changes of centrilobular and paraseptal emphysema present. Using sterile technique and CT fluoroscopic guidance, a 17-gauge guiding needle was directed from a posterior approach to the nodule. Three 18-gauge core biopsies of the lesion were then obtained. There is noted to be a small left pneumothorax status post biopsy. CT/CT guided FNA IMPRESSION: Left upper lobe nodule core biopsy as described.
--- NOTE | ~2022-02-15 | XR_ITS ---
EXAMINATION: XR CHEST CLINICAL INFORMATION: Status post left upper lung biopsy COMPARISON: 11/14/2020. Biopsy imaging from today. TECHNIQUE: Frontal view of the chest was obtained. FINDINGS: Median sternotomy wires appear intact. The lungs are well expanded. There is a tiny left apical pneumothorax which corresponds to the appearance on the biopsy CT imaging. No pleural or effusion. No dense consolidation. The cardiomediastinal silhouette is normal in size with a calcified aorta.. XR/XR chest 1V IMPRESSION: Tiny left apical pneumothorax, consistent with the appearance on the recent postbiopsy CT .
--- NOTE | ~2022-02-15 | XR_ITS ---
EXAMINATION: XR CHEST CLINICAL INFORMATION: 2 hour delayed chest x-ray from left lung biopsy. COMPARISON: Earlier on same day. TECHNIQUE: AP portable view of the chest was obtained. FINDINGS: Heart normal size. Status post median sternotomy and CABG. No significant pleural effusion. There is some left base atelectasis present. The small left apical pneumothorax appears a little improved from prior study without evidence of enlargement of the pneumothorax. XR/XR chest 1V IMPRESSION: No evidence of progression of left pneumothorax with tiny apical pneumothorax remaining.
[2022-02-15 08:07] VITALS: BMI 36.5
[2022-02-15 11:58] VITALS: BP 106/77; PULSE 58; RESP 19; TEMP 35.9; O2SAT 98
[2022-02-15 12:26] LABS: Glucose, Whole Blood 125 mg/dL (60-115)
[2022-02-15 12:54] LABS: MANUAL DIFF FLAG NO
[2022-02-15 12:55] LABS: Basophils Percent Auto 0.6 % (0-2); Eosinophils Absolute Auto 0.1 X10*3/uL (0.0-0.4); Hematocrit 24.2 % (37.0-47.0); Hemoglobin 7.8 g/dl (12.0-16.0); Imm Gran Abs Auto 0.02 X10*3/uL (0.00-0.03); Imm Gran Pct Auto 0.4 % (0.0-0.4); Lymphocytes Absolute Auto 1.5 X10*3/uL (1.2-4.9); Lymphocytes Percent Auto 27.7 % (20-40); Mean Corpuscular HGB Conc 32.2 g/dl (31.0-35.0); Mean Corpuscular Hemoglobin 32.5 pg (27.0-33.0); Mean Corpuscular Volume 100.8 fL (80.0-98.0); Mean Platelet Volume 10.8 fL (9.4-12.3); Monocytes Absolute Auto 0.5 X10*3/uL (0.1-1.2); Monocytes Percent Auto 8.5 % (2-11); Neutrophils Absolute Auto 3.3 x10*3/uL (2.0-8.3); Neutrophils Percent Auto 60.8 % (45-73); Platelet Count 224 X10*3/uL (160-400); Red Cell Distribution Width 14.4 % (11.0-16.0); White Blood Count 5.4 X10*3/uL (4.8-10.8)
[2022-02-15 13:24] LABS: Prothrombin Time 11.7 SEC (9.9-13.0)
[2022-02-15 15:00] VITALS: BP 115/61; PULSE 57; RESP 14; TEMP 36.3; O2SAT 97
[2022-02-15 15:30] VITALS: BP 115/54; PULSE 55; RESP 14; TEMP 36.4; O2SAT 95
[2022-02-15] MEDS: Acetaminophen 325 MG TABLET 650 MG PO (15:31)
[2022-02-15] MEDS: oxyCODONE HCl Immed Release 5 MG TABLET PO (15:32)
[2022-02-15 16:00] VITALS: BP 115/74; PULSE 54; O2SAT 96
[2022-02-15 16:30] VITALS: PULSE 63; RESP 16; O2SAT 97
[2022-02-15 17:00] VITALS: PULSE 61; RESP 16; O2SAT 97
== END 2022-02-15 17:27 | disposition home or self-care (01) ==
LOC: HO.SSS 11:43
PROVIDERS: Radiology Diagnostic Radiology; PCP Internal Medicine; Visit Provider Radiology Diagnostic Radiology
DX: C34.12 Malignant neoplasm of upper lobe, left bronchus or lung (principal); J95.811 Postprocedural pneumothorax; Y83.9 Surgical procedure, unspecified as the cause of abnormal reaction of the patient, or of later complication, without mention of misadventure at the time of the procedure; Y82.8 Other medical devices associated with adverse incidents; E11.9 Type 2 diabetes mellitus without complications; Z87.891 Personal history of nicotine dependence
CPT/HCPCS: 10009; 32408; 36415; 71045; 82947; 85025; 85610; 85730; 88305; 88333; J2250; J3010

== ENCOUNTER → 2022-02-23 10:22 | Outpatient (BNVA) | payer MEDICARE, SELFPAY | PROVIDERS: PCP Internal Medicine; Visit Provider Surgery | DX: C34.92 Malignant neoplasm of unspecified part of left bronchus or lung (principal) | CPT/HCPCS: 99212 ==

== ENCOUNTER 2022-03-12 10:36 | Emergency (ER) | payer MEDICARE, SELFPAY ==
--- NOTE | ~2022-03-12 | CT_ITS ---
EXAMINATION: CT HEAD WITHOUT CONTRAST CT CERVICAL SPINE WITHOUT CONTRAST CLINICAL INFORMATION: Fall. Pain. COMPARISON: Most recent CT head dated 09/25/2021. TECHNIQUE: Contiguous axial imaging was performed from the skull base to vertex without intravenous administration of contrast. Contiguous axial CT images of the cervical spine were obtained without contrast. Sagittal and coronal reformats were provided and reviewed. This CT examination was performed using dose optimization techniques as appropriate, variously including the following: *Automated exposure control *Adjustment of mA and/or kV according to patient size (this includes techniques or standardized protocols for targeted exams where dose is matched to indication/reason for exam; i.e. extremities or head) *Use of iterative reconstruction technique DLP: 1053 mGy-cm FINDINGS: HEAD: There is no evidence of acute intracranial hemorrhage or territorial infarction. No abnormal mass effect or midline shift is seen. Wright to white matter differentiation is well preserved. No extra-axial fluid collections are identified. The ventricles are normal in size. There is no abnormal attenuation within the brain parenchyma. The osseous structures and soft tissues are normal. The mastoid air cells and visualized portions of the paranasal sinuses are well aerated. CERVICAL SPINE: The cervical lordosis is maintained. Minimal grade 1 anterolisthesis of C3 on C4 and retrolisthesis of C4 on C5. No acute fracture or subluxation. No loss of vertebral body height. Loss of intervertebral disc height with degenerative endplate changes at C3-C4 and C4-C5. Multilevel bilateral facet arthropathy. No lytic or blastic osseous lesion. Unremarkable prevertebral soft tissues. No abnormal soft tissue mass or fluid collection. Thyroid within normal limits. Emphysematous changes within the lung apices. Bilateral neural foraminal stenosis at C4-C5. CT/CT cervical spine wo con IMPRESSION: HEAD: No acute intracranial hemorrhage or mass effect. CERVICAL SPINE: No acute fracture or subluxation. Degenerative disc disease with bilateral facet arthropathy at C3 through C5 with bilateral neural foraminal stenosis at C4-C5.
--- NOTE | ~2022-03-12 | CT_ITS ---
EXAMINATION: CT CHEST, ABDOMEN AND PELVIS WITHOUT CONTRAST CLINICAL INFORMATION: Fall with pain. Cancer. Pulmonary nodules. COMPARISON: Most recent chest radiograph dated 02/15/[address] chest dated 01/24/2022. Most recent PET/CT dated 09/12/2021. TECHNIQUE: Contiguous axial thin section helical images of the chest, abdomen and pelvis were performed without contrast. The data set was reformatted in the coronal and sagittal planes and reviewed on an independent workstation. This CT examination was performed using dose optimization techniques as appropriate, variously including the following: *Automated exposure control *Adjustment of mA and/or kV according to patient size (this includes techniques or standardized protocols for targeted exams where dose is matched to indication/reason for exam; i.e. extremities or head) *Use of iterative reconstruction technique DLP: 1171 mGy-cm FINDINGS: LUNGS: Emphysematous changes are redemonstrated. Redemonstration of a subpleural nodule within the posterior aspect of the left upper lobe measuring up to 0.8 cm, not significantly changed. No new pulmonary nodule, mass, or airspace consolidation. PLEURA: No pleural effusion or pneumothorax. No pleural mass or thickening. MEDIASTINUM: No cardiomegaly. No significant pericardial effusion. No thoracic aortic dilatation or dissection. No significant mediastinal or hilar lymphadenopathy. CHEST WALL/AXILLA: No lymphadenopathy. THYROID: Unremarkable. LIVER, GALLBLADDER, AND BILIARY TREE: Normal size, shape, and attenuation. No focal hepatic lesion. No intra or extrahepatic biliary ductal dilatation. The gallbladder is unremarkable with no evidence of radiopaque gallstones, gallbladder wall thickening, or obvious pericholecystic inflammatory changes. PANCREAS: Unremarkable. SPLEEN: Unremarkable. ADRENAL GLANDS: Unremarkable. KIDNEYS AND URETERS: Normal size, shape, and attenuation. Small bilateral renal calcifications measuring up to 0.2 cm within the left kidney. No ureteral stone. No hydronephrosis or hydroureter. BLADDER: Unremarkable. GASTROINTESTINAL TRACT: Diverticulosis without evidence of acute diverticulitis. No bowel wall thickening or inflammatory change. No small or large bowel obstruction. The appendix is not well seen. There is mild stranding within the right lower quadrant adjacent to the cecum and ileocolic junction. Findings are nonspecific and may represent normal variation. A mild infectious or inflammatory process could be considered in the appropriate clinical setting. No evidence of perforation or abscess formation. PERITONEAL CAVITY: No intra-abdominal free air or free fluid. No intra-abdominal mass or organized fluid collection/abscess formation. ABDOMINAL WALL: No significant abdominal wall hernia. LYMPH NODES: No significant lymphadenopathy. VASCULAR: Contrast opacifies the abdominal aorta and its branch vessels. Redemonstration of stable infrarenal abdominal aortic dilatation with atherosclerotic calcifications. The IVC is unremarkable. PELVIC VISCERA: Status post hysterectomy. OSSEOUS STRUCTURES: No acute osseous abnormality. No lytic or blastic osseous lesion. CT/CT abdomen pelvis wo con IMPRESSION: 1. No acute osseous or visceral injury. 2. Redemonstration of emphysematous changes and stable posterior left upper lobe nodule. No new pulmonary nodule, mass, or airspace consolidation. 3. No new intra-abdominal mass, lymphadenopathy, or ascites. 4. Diverticulosis without evidence of acute diverticulitis. Mild stranding adjacent to the ileocolic junction and cecum. Appendix not well seen. Findings could represent early appendicitis versus normal variation, and clinical correlation is recommended.
[2022-03-12 10:47] VITALS: BP 149/59; PULSE 54; RESP 16; TEMP 36.4; O2SAT 98; BMI 36.5
--- NOTE | 2022-03-12 11:11 | ED.GENADULT ---
HPI - General Adult General Chief complaint: Fall Stated complaint: Fall 1 wk ago/ R side pain Time Seen by Provider: 03/12/22 11:10 Source: patient Mode of arrival: ambulatory Limitations: no limitations History of Present Illness HPI narrative: Patient is a 76 year old female presenting to the emergency department today with right upper rib pain after a fall. Patient states that she fell a few days ago and landed on her right side and she is still having pain there. Patient states that she was recently diagnosed with lung cancer. Patient denies any loss of conciseness or hitting her head with the incident. Patient denies any dizziness, lightheadedness, abdominal pain, nausea, vomiting, fever, chills, blurry vision, double vision, loss of vision, chest pain, difficulty breathing, shortness of breath, back pain, night sweats, pain with urination, increased urinary frequency, increased urinary urgency, blood in her urine or stool, syncope or a near syncopal episode, bowel incontinence, bladder incontinence, bowel retention, bladder retention, or any other complaints at this time. Onset (ago): day(s) Radiation: non-radiation Severity: mild Severity scale (1-10): 3 Quality: dull Pain Consistency: constant Relieving factors: none Exacerbating factors: none Associated symptoms: denies other symptoms Treatments prior to arrival: none Related Data Home Medications Medication Instructions Recorded Confirmed cholecalciferol (vitamin D3) 50 50 mcg PO DAILY 10/26/20 02/23/22 mcg (2,000 unit) capsule ferrous fumarate 325 mg (106 mg 325 mg PO DAILY 10/26/20 02/23/22 iron) tablet verapamil 100 mg capsule 24hr 100 mg PO BEDTIME 10/26/20 02/23/[address],ext.release acetaminophen 500 mg tablet 500 mg PO BID 11/07/20 02/23/22 isosorbide mononitrate 30 mg 30 mg PO DAILY 10/02/21 02/23/22 tablet,extended release 24 hr apixaban 5 mg tablet (Eliquis) 1 tab PO Q12H 02/19/22 02/23/22 Previous Rx's Medication Instructions Recorded folic acid 1 mg tablet 1 mg PO DAILY 90 Days #90 tab 05/30/21 dicyclomine 20 mg tablet 20 mg PO BID 90 Days #180 tab 10/19/21 sertraline 100 mg tablet 100 mg PO DAILY #90 tab 10/19/21 clotrimazole 2 % vaginal cream 1 appful VAGINAL BEDTIME PRN #21 g 10/31/21 glipizide 5 mg tablet 5 mg PO DAILY #30 tab 10/31/21 lisinopril 2.5 mg tablet 2.5 mg PO DAILY #90 tab 10/31/21 metoprolol succinate 50 mg 150 mg PO BEDTIME #270 tab 12/13/21 tablet,extended release 24 hr blood sugar diagnostic (OneTouch #100 ea 12/26/21 Ultra Test) blood-glucose meter (hybrisTouch #1 ea 12/26/21 Ultra2 Meter) lancets 33 gauge (OneTouch Delica #100 ea 12/26/21 Lancets) omeprazole 40 mg capsule,delayed 40 mg PO DAILY 90 Days #90 cap 01/03/22 release atorvastatin 80 mg tablet 80 mg PO BEDTIME #90 tab 01/22/22 alprazolam 0.25 mg tablet 0.25 mg PO DAILY #20 tab 02/27/22 trazodone 50 mg tablet 50 mg PO BEDTIME #90 tab 02/27/22 Allergies Allergy/AdvReac Type Severity Reaction Status Date / Time sulfamethoxazole Allergy Severe Rash Verified 02/23/22 11:01 [From Bactrim] adhesive tape [ADHESIVE TAPE] Allergy Intermediate BLISTERS Verified 02/23/22 11:01 clonidine Allergy makes pt Verified 02/23/22 11:01 hulusinate adhesive AdvReac Severe BLISTERS Verified 02/23/22 11:01 gabapentin AdvReac Severe hallucinati Verified 02/23/22 11:01 on morphine AdvReac Severe hallucinati Verified 02/23/22 11:01 on glue AdvReac Severe BLISTERS Uncoded 02/23/22 11:01 Review of Systems Constitutional: Constitutional: Reports no additional constitutional complaints, Denies chills, Denies fever(s) and Denies night sweats Eyes: Eyes: Reports no additional eye complaints, Denies blurry vision, Denies change in vision, Denies diplopia, Denies eye discharge, Denies loss of vision and Denies eye pain ENT: Denies dizziness Cardiovascular: Cardiovascular: Reports no additional cardiovascular complaints, Denies chest pain, Denies lightheadedness, Denies Loss of Consciousness and Denies dyspnea Respiratory: Respiratory: Reports no additional respiratory complaints and Denies dyspnea Gastrointestinal: Gastrointestinal: Reports no additional gastrointestinal complaints, Denies abdominal pain, Denies melena, Denies hematochezia, Denies change in bowel habits and Denies change in stool character Genitourinary: Genitourinary: Denies hematuria, Denies urinary frequency, Denies dysuria, Denies urinary incontinence, Denies urinary hesitancy and Denies urinary urgency Musculoskeletal: Musculoskeletal: Reports no additional musculoskeletal complaints, Denies numbness and Denies tingling Comments: right upper rib pain Neurologic: Denies dizziness, Denies loss of vision, Denies numbness and Denies tingling Psychiatric: Psychiatric: Reports no additional psychiatric complaints Endocrine: Endocrine: Reports no additional endocrine complaints Hematologic/Lymphatic: Hematologic/Lymphatic: Reports no additional hematologic/lymphatic complaints Allergic/Immunologic: Allergic/Immunologic: Reports no additional allergic/immunologic complaints PMFSH Past Medical History Attestation statement: The following information was validated with the patient. Source: old records reviewed Medical History AAA (abdominal aortic aneurysm) (~2008) Adenocarcinoma of left lung (~2021) Anemia Aortic stenosis Arthritis Atypical migraine AVM (arteriovenous malformation) of colon Barretts esophagus Bilateral pulmonary embolism (~10/2020) Bleeding hemorrhoids CAD (coronary artery disease) COPD (chronic obstructive pulmonary disease) Depression Essential hypertension GERD without esophagitis GIB (gastrointestinal bleeding) History of blood transfusion Irritable bowel syndrome with both constipation and diarrhea Major depression in full remission Mixed dyslipidemia Nonrheumatic aortic (valve) stenosis Nonrheumatic mitral valve regurgitation Normocytic anemia Obesity On anticoagulant therapy (~10/2020) On beta [place] at home Pulmonary nodules Restless leg syndrome Transient cerebral ischemia Type 2 diabetes mellitus without complication, without long-term current use of insulin Vitamin B12 deficiency Surgical History History of bilateral breast reduction surgery (~2010) History of colonoscopy (~2018) History of coronary artery bypass graft x 2 (~2017) History of esophagogastroduodenoscopy (EGD) (~2020) History of heart artery stent (~2007) History of hysterectomy History of lung biopsy (~2021) History of total right knee replacement (TKR) (~2015) S/P excision of lipoma (~2018) Family History Family History Father HTN (hypertension) Myocardial infarction Hyperlipidemia Abdominal aneurysm Mother HTN (hypertension) Myocardial infarction Hyperlipidemia Brother Alzheimer's disease Substance abuse Sister Rheumatoid arthritis Brother Rheumatoid arthritis Maternal Aunt Diabetes mellitus Lung cancer Maternal Uncle Diabetes mellitus Son No problems noted. Daughter No problems noted. 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 Physical Exam ED Vital Signs: Vital Signs - 24 hr 03/12/22 10:47 Temperature 97.5 F Pulse Rate 54 Respiratory Rate 16 Blood Pressure 149/59 H Pulse Oximetry 98 BMI result Body Mass Index 36.5 Const General: cooperative, no acute distress, alert and awake Nutritional Appearance: well nourished Orientation/consciousness: patient oriented x3 Limitations: no limitations HENMT Head: Yes normal to inspection and Yes atraumatic Ears: hearing grossly normal bilaterally and external ears normal General nose exam: Normal external nose present, no nasal discharge noted and no epistaxis Face and sinus: Yes normal facial exam, No abrasion and No laceration Mouth: Normal oral and palatal mucosa present, no drooling and no muffled voice Eyes General: appearance normal, both eyes and all related structures Periorbital: periorbital findings normal Eyelids: Yes eyelids normal Conjunctivae: conjunctivae normal Pupils: Equal, round and reactive pupils present EOM: EOMs intact bilaterally Neck Neck: Yes normal visual inspection, Yes full ROM and Yes no lymphadenopathy Chest Chest palpation & inspection: normal inspection of the chest Resp Effort & Inspection: normal respiratory effort and able to speak in complete sentences Auscultation: clear to auscultation bilaterally Cardio Rate: regular rate Rhythm: regular rhythm GI Inspection: Yes normal to inspection Neuro General: patient oriented x3 and moves all extremities Cranial nerves: Yes Equal, round and reactive pupils present Cognition (Neuro): normal cognition Motor exam (neuro): 5/5 motor strength present throughout Sensory Exam: Normal double simultaneous stimulation for sensation Coordination: [id number] test normal Extrem General: Yes normal to inspection, Yes full ROM and Yes capillary refill normal Psych Appearance: grossly normal Mental Status: mental status grossly normal Affect: normal affect Attitude: cooperative Thought process: Normal thought process present Thought content: Normal thought content present Insight: Good insight present (Psych) Medical Decision Making MDM Narrative Medical decision making narrative: Patient is a 76 year old female presenting to the emergency department today with right upper rib pain. Patient's physical exam was unremarkable. Patient's CT chest, CT head, and CT C-Spine showed no acute process. Patient's abdominal CT showed mild stranding adjacent to the ileocolic junction and cecum without a visualized appendix and recommended clinical correlation. Patient does not have abdominal pain and her clinical picture is not that of an acute appendicitis. I explained my physical exam findings as well as all test results to the patient and the patient's . I answered all questions asked by the patient and the patient's . Patient received PO [place] which she stated helped her pain significantly. I stressed the importance of the patient taking her medication as prescribed. I stressed the importance of the patient following up with her primary care provider. I stressed the importance of the patient returning to the emergency department immediately if her symptoms were to worsen or if she were to develop any dizziness, shortness of breath, difficulty breathing, chest pain, blurry vision, loss of vision, nausea, vomiting, abdominal pain, fever, chills, back pain, or any other complaints. Patient and the patient's verbalized agreement and understanding with this treatment plan and discharge. Differential Diagnosis Differential Diagnosis: rib contusion Medical Records Medical records reviewed: Yes I reviewed the patient's medical records. Imaging Data Chest and abdomen/pelvis CT: Attestation: I personally reviewed and interpreted this imaging study as follows: My impression: No acute process. Radiologist's impression: EXAMINATION: CT CHEST, ABDOMEN AND PELVIS WITHOUT CONTRAST CLINICAL INFORMATION: Fall with pain. Cancer. Pulmonary nodules. COMPARISON: Most recent chest radiograph dated 02/15/[address] chest dated 01/24/2022. Most recent PET/CT dated 09/12/2021. TECHNIQUE: Contiguous axial thin section helical images of the chest, abdomen and pelvis were performed without contrast. The data set was reformatted in the coronal and sagittal planes and reviewed on an independent workstation. This CT examination was performed using dose optimization techniques as appropriate, variously including the following: *Automated exposure control *Adjustment of mA and/or kV according to patient size (this includes techniques or standardized protocols for targeted exams where dose is matched to indication/reason for exam; i.e. extremities or head) *Use of iterative reconstruction technique DLP: 1171 mGy-cm FINDINGS: LUNGS: Emphysematous changes are redemonstrated. Redemonstration of a subpleural nodule within the posterior aspect of the left upper lobe measuring up to 0.8 cm, not significantly changed. No new pulmonary nodule, mass, or airspace consolidation. PLEURA: No pleural effusion or pneumothorax. No pleural mass or thickening. MEDIASTINUM: No cardiomegaly. No significant pericardial effusion. No thoracic aortic dilatation or dissection. No significant mediastinal or hilar lymphadenopathy. CHEST WALL/AXILLA: No lymphadenopathy.? THYROID: Unremarkable. LIVER, GALLBLADDER, AND BILIARY TREE: Normal size, shape, and attenuation. No focal hepatic lesion. No intra or extrahepatic biliary ductal dilatation. The gallbladder is unremarkable with no evidence of radiopaque gallstones, gallbladder wall thickening, or obvious pericholecystic inflammatory changes.? PANCREAS: Unremarkable.? SPLEEN: Unremarkable.? ADRENAL GLANDS: Unremarkable.? KIDNEYS AND URETERS: Normal size, shape, and attenuation. Small bilateral renal calcifications measuring up to 0.2 cm within the left kidney. No ureteral stone. No hydronephrosis or hydroureter. BLADDER: Unremarkable.? GASTROINTESTINAL TRACT: Diverticulosis without evidence of acute diverticulitis. No bowel wall thickening or inflammatory change. No small or large bowel obstruction. The appendix is not well seen. There is mild stranding within the right lower quadrant adjacent to the cecum and ileocolic junction. Findings are nonspecific and may represent normal variation. A mild infectious or inflammatory process could be considered in the appropriate clinical setting. No evidence of perforation or abscess formation. PERITONEAL CAVITY: No intra-abdominal free air or free fluid. No intra-abdominal mass or organized fluid collection/abscess formation. ABDOMINAL WALL: No significant abdominal wall hernia.? LYMPH NODES: No significant lymphadenopathy. VASCULAR: Contrast opacifies the abdominal aorta and its branch vessels. Redemonstration of stable infrarenal abdominal aortic dilatation with atherosclerotic calcifications. The IVC is unremarkable. PELVIC VISCERA: Status post hysterectomy. OSSEOUS STRUCTURES: No acute osseous abnormality. No lytic or blastic osseous lesion. CT/CT abdomen pelvis wo con IMPRESSION: 1. No acute osseous or visceral injury. ? 2. Redemonstration of emphysematous changes and stable posterior left upper lobe nodule. No new pulmonary nodule, mass, or airspace consolidation. ? 3. No new intra-abdominal mass, lymphadenopathy, or ascites. ? 4. Diverticulosis without evidence of acute diverticulitis. Mild stranding adjacent to the ileocolic junction and cecum. Appendix not well seen. Findings could represent early appendicitis versus normal variation, and clinical correlation is recommended. Dictated By: Renzo Huynh MD Signed By: Electronically signed by Renzo Huynh MD 03/12/[id number] head and c-spine: Attestation: I personally reviewed and interpreted this imaging study as follows: My impression: No acute process. Radiologist's impression: EXAMINATION: CT HEAD WITHOUT CONTRAST CT CERVICAL SPINE WITHOUT CONTRAST CLINICAL INFORMATION: Fall. Pain.? COMPARISON: Most recent CT head dated 09/25/2021. TECHNIQUE: Contiguous axial imaging was performed from the skull base to vertex without intravenous administration of contrast. Contiguous axial CT images of the cervical spine were obtained without contrast. Sagittal and coronal reformats were provided and reviewed. This CT examination was performed using dose optimization techniques as appropriate, variously including the following: *Automated exposure control *Adjustment of mA and/or kV according to patient size (this includes techniques or standardized protocols for targeted exams where dose is matched to indication/reason for exam; i.e. extremities or head) *Use of iterative reconstruction technique DLP: 1053 mGy-cm FINDINGS: HEAD: There is no evidence of acute intracranial hemorrhage or territorial infarction. No abnormal mass effect or midline shift is seen. Wright to white matter differentiation is well preserved. No extra-axial fluid collections are identified. The ventricles are normal in size. There is no abnormal attenuation within the brain parenchyma. The osseous structures and soft tissues are normal. The mastoid air cells and visualized portions of the paranasal sinuses are well aerated. CERVICAL SPINE: The cervical lordosis is maintained. Minimal grade 1 anterolisthesis of C3 on C4 and retrolisthesis of C4 on C5. No acute fracture or subluxation. No loss of vertebral body height. Loss of intervertebral disc height with degenerative endplate changes at C3-C4 and C4-C5. Multilevel bilateral facet arthropathy. No lytic or blastic osseous lesion. Unremarkable prevertebral soft tissues. No abnormal soft tissue mass or fluid collection. Thyroid within normal limits. Emphysematous changes within the lung apices. Bilateral neural foraminal stenosis at C4-C5. ? CT/CT head/brain wo con IMPRESSION: HEAD: No acute intracranial hemorrhage or mass effect. ? CERVICAL SPINE: No acute fracture or subluxation. Degenerative disc disease with bilateral facet arthropathy at C3 through C5 with bilateral neural foraminal stenosis at C4-C5. Dictated By: Renzo Huynh MD Signed By: Electronically signed by Renzo Huynh MD 03/12/22 1329 Discharge Plan Discharge Clinical Impression: Fall, Bruised rib Patient Disposition: Home, Self-Care Instructions: Rib Contusion (ED) Additional Instructions: Follow up with your primary care provider. Return to the emergency department immediately if your symptoms worsen or if you develop any dizziness, shortness of breath, difficulty breathing, chest pain, blurry vision, loss of vision, nausea, vomiting, abdominal pain, fever, chills, back pain, or any other complaints. Prescriptions: No Action folic acid 1 mg tablet 1 mg PO DAILY 90 Days Qty: 90 2RF sertraline 100 mg tablet 100 mg PO DAILY Qty: 90 1RF dicyclomine 20 mg tablet 20 mg PO BID 90 Days Qty: 180 1RF clotrimazole 2 % cream 1 appful vaginal BEDTIME PRN (Reason: VAGINAL ITCH) Qty: 21 1RF glipizide 5 mg tablet 5 mg PO DAILY Qty: 30 5RF lisinopril 2.5 mg tablet 2.5 mg PO DAILY Qty: 90 1RF metoprolol succinate 50 mg tablet extended release 24 hr 150 mg PO BEDTIME Qty: 270 3RF (DME) blood-glucose meter [OneTouch Ultra2 Meter] [facility] See Rx Instructions .Route Qty: 1 0RF Rx Instructions: As directed to test blood sugar once a day (DME) OneTouch Ultra Test Strip See Rx Instructions .Route Qty: 100 3RF Rx Instructions: test blood sugar once daily (DME) lancets [OneTouch Delica Lancets] 33 gauge misc See Rx Instructions .Route Qty: 100 3RF Rx Instructions: test blood sugar once a day omeprazole 40 mg capsule,delayed release(DR/EC) 40 mg PO DAILY 90 Days Qty: 90 2RF atorvastatin 80 mg tablet 80 mg PO BEDTIME Qty: 90 0RF trazodone 50 mg tablet 50 mg PO BEDTIME Qty: 90 0RF alprazolam 0.25 mg tablet 0.25 mg PO DAILY Qty: 20 0RF Eliquis 5 mg tablet 1 tab PO Q12H 0RF verapamil 100 mg capsule, [address] 100 mg PO BEDTIME 0RF ferrous fumarate 325 mg (106 mg iron) tablet 325 mg PO DAILY 0RF cholecalciferol (vitamin D3) 50 mcg (2,000 unit) capsule 50 mcg PO DAILY 0RF acetaminophen 500 mg tablet 500 mg PO BID 0RF Rx Instructions: Patient takes scheduled BID (in pill box) isosorbide mononitrate 30 mg tablet extended release 24 hr 30 mg PO DAILY 0RF Referrals: Sary Waite MD [Primary Care Provider] - Interventions: ED Discharge Assessment Last Done: 03/12/22 14:04 Discharge Date/Time: 03/12/22 14:05 Print Language: German
[2022-03-12] MEDS: HYDROcodone Bit/Acetam 5/325 TABLET 1 TAB PO (13:34)
--- NOTE | 2022-03-12 13:54 | PC.NURSE ---
RT to bedside for incentive spirometer teaching
== END 2022-03-12 14:05 | disposition home or self-care (01) ==
PROVIDERS: Emergency Provider Emergency Medicine; PCP Internal Medicine
DX: S20.213A Contusion of bilateral front wall of thorax, initial encounter (principal); R10.11 Right upper quadrant pain; M54.2 Cervicalgia; G44.309 Post-traumatic headache, unspecified, not intractable; M54.6 Pain in thoracic spine; R07.81 Pleurodynia; W01.0XXA Fall on same level from slipping, tripping and stumbling without subsequent striking against object, initial encounter; Y93.9 Activity, unspecified; Y92.9 Unspecified place or not applicable; Y99.9 Unspecified external cause status; Z87.891 Personal history of nicotine dependence; Z79.899 Other long term (current) drug therapy
CPT/HCPCS: 70450; 71250; 72125; 74176; 99282; 99284

== ENCOUNTER 2022-05-08 09:24 | Outpatient (REF) | payer MEDICARE, SELFPAY ==
--- NOTE | ~2022-05-08 | CT_ITS ---
EXAMINATION: CT HIP WITHOUT CONTRAST, RIGHT CLINICAL INFORMATION: Right iliac bone metastasis. COMPARISON: CT scan of the chest, abdomen and pelvis 03/12/2022. TECHNIQUE: CT scan of the right hip was performed without contrast. Reconstruction imaging was performed at the acquisition workstation. This CT examination was performed using dose optimization techniques as appropriate, variously including the following: *Automated exposure control *Adjustment of mA and/or kV according to patient size (this includes techniques or standardized protocols for targeted exams where dose is matched to indication/reason for exam; i.e. extremities or head) *Use of iterative reconstruction technique DLP: 399 mGy-cm FINDINGS: There is an irregular lytic lesion within the proximal right iliac bone with a soft tissue component. The lesion measures up to 3.6 cm transverse, approximately 1.9 cm craniocaudal and approximately 1.7 cm AP with the measurement including the estimated borders of the soft tissue component which are ill defined. No additional bone lesions. Additional Findings: Bilateral facet arthrosis at the L5-S1 level. Arterial calcification present. Question surgical clips in the lower pelvis. Scattered diverticulosis without diverticulitis in the sigmoid colon. CT/CT hip RT wo con IMPRESSION: Lytic lesion in the right iliac bone. This is unchanged compared with the recent CT of 03/12/2022. Given its appearance and the patient's history, this most likely reflects metastatic disease.
== END 2022-05-08 09:25 | disposition home or self-care (01) ==
LOC: HO.CT 09:24
PROVIDERS: Visit Provider Internal Medicine
DX: M25.551 Pain in right hip (principal)
CPT/HCPCS: 73700

== ENCOUNTER 2022-06-01 16:38 | Emergency (ER) | payer MEDICARE, SELFPAY ==
--- NOTE | 2022-06-01 | ECG_ITS ---
Test Reason : SHORTNESS OF BREATH Blood Pressure : / mmHG Vent. Rate : 079 BPM Atrial Rate : 079 BPM P-R Int : 148 ms QRS Dur : 084 ms QT Int : 398 ms P-R-T Axes : 055 -11 055 degrees QTc Int : 456 ms Normal sinus rhythm Normal ECG When compared with ECG of 25-SEP-2021 15:35, Premature ventricular complexes are no longer Present Referred By: Generic ED Physician Electronically Signed By:BLANCA HARDWICK
--- NOTE | ~2022-06-01 | CT_ITS ---
EXAMINATION: CT ANGIOGRAM OF THE CHEST WITH AND WITHOUT CONTRAST (CT PULMONARY ANGIOGRAM FOR PE) CLINICAL INFORMATION: Shortness of breath. COMPARISON: CT chest from 03/12/2022. TECHNIQUE: Prior to contrast administration, noncontrast localization images were obtained. Subsequently, multidetector volumetric imaging was performed from the thoracic inlet to below the diaphragms following the administration of 70 mL Omnipaque 350 intravenous contrast. No contrast reaction reported. Sagittal, coronal, and MIP oblique sagittal reformatted images were obtained on the CT workstation, uploaded to PACS, and reviewed. This CT examination was performed using dose optimization techniques as appropriate, variously including the following: *Automated exposure control *Adjustment of mA and/or kV according to patient size (this includes techniques or standardized protocols for targeted exams where dose is matched to indication/reason for exam; i.e. extremities or head) *Use of iterative reconstruction technique DLP: 299 mGy-cm FINDINGS: QUALITY OF STUDY/CONTRAST BOLUS: Satisfactory. PULMONARY ARTERIES: No central or segmental pulmonary emboli. THORACIC AORTA: Normal contour and caliber with moderate calcific atherosclerotic disease. No aneurysm or dissection. LUNG: The previously noted subpleural nodule in the posterior aspect of the left upper lobe has slightly decreased in size compared to prior exam (now measuring 0.5 cm; previously 0.8 cm). Few scattered punctate calcified granulomas. No new focal consolidation, nodules, or masses. Moderate centrilobular and paraseptal emphysema. PLEURA: No pleural effusion or pneumothorax. MEDIASTINUM: Changes of prior median sternotomy for CABG. Prominent coronary artery calcifications. Global cardiac enlargement. No pericardial effusion. No hilar or mediastinal lymphadenopathy. No evidence of septal bowing or right heart strain. CHEST WALL/AXILLA: No axillary or internal mammary lymphadenopathy. OSSEOUS STRUCTURES: No acute or suspicious osseous abnormality. Mild to moderate multilevel degenerative spondyloarthropathy of the thoracic spine. UPPER ABDOMEN: No demonstrated significant abnormalities of the visualized upper chest. No reflux of contrast into the hepatic veins to suggest elevated right heart pressures. CT/CT angio chest PE protocol IMPRESSION: 1. No demonstrated pulmonary embolism. 2. Underlying emphysema. No demonstrated acute pulmonary abnormalities. 3. Status post CABG. Extensive coronary artery calcifications. Global cardiac enlargement. VTE: negative
--- NOTE | ~2022-06-01 | US_ITS ---
EXAMINATION: US VENOUS ULTRASOUND WITH DOPPLER LOWER EXTREMITY, LEFT CLINICAL INFORMATION: Unilateral swelling COMPARISON: None TECHNIQUE: Ultrasound of the deep veins is performed from the hip to the calf with compression sonography and color and pulse Doppler assessment. Spectral analysis with color-flow imaging is performed. FINDINGS: There is normal venous compression and respiratory variation and augmented flow. The visualized common femoral vein, superficial femoral vein, profunda femoral vein, popliteal vein, and the trifurcation region shows no evidence of deep venous thrombosis. There is no significant popliteal fossa cyst. . If the patient's symptoms persist, followup ultrasound in 5 days 7 days might be of value to exclude proximal propagation from a non-visualized calf vein. US/US venous duplex LE LT IMPRESSION: No DVT demonstrated in the left lower extremity.
[2022-06-01 17:05] VITALS: BP 128/76; PULSE 118; RESP 16; TEMP 36.1; O2SAT 95; BMI 36.1
[2022-06-01 17:59] LABS: INTERNATIONAL NORM RATIO 1.2 (0.9-1.1); Prothrombin Time 13.9 SEC (10.0-13.1)
[2022-06-01 18:02] LABS: Anion Gap 18 (12-20); Blood Urea Nitrogen 23 mg/dL (9-16); Carbon Dioxide 22 mmol/L (22-29); Chloride 105 mmol/L (96-108); Creatinine Clr Calc Pharmacy 57.5; Estimated Glomerular Filt Rate > 60; Glucose Random 151 mg/dL (60-115); Potassium 3.8 mmol/L (3.3-5.1); Sodium 141 mmol/L (135-145)
[2022-06-01 18:06] LABS: B Type Natriuretic Peptide 98 pg/mL (<100)
[2022-06-01 18:08] LABS: Hematocrit 29.9 % (37.0-47.0); Hemoglobin 9.9 g/dl (12.0-16.0); Mean Corpuscular HGB Conc 33.1 g/dl (31.0-35.0); Mean Corpuscular Hemoglobin 31.4 pg (27.0-33.0); Mean Corpuscular Volume 94.9 fL (80.0-98.0); Mean Platelet Volume 10.2 fL (9.4-12.3); Platelet Count 179 X10*3/uL (160-400); Red Blood Count 3.15 X10*6/uL (4.20-5.50); Red Cell Distribution Width 14.2 % (11.0-16.0); White Blood Count 7.2 X10*3/uL (4.8-10.8)
--- NOTE | 2022-06-01 18:36 | ED.SOB ---
HPI - SOB/Dyspnea General Chief Complaint: General Medical Stated Complaint: sob Time Seen by Provider: 06/01/22 17:19 Source: patient Mode of arrival: ambulatory Limitations: no limitations History of Present Illness HPI Narrative: 77 yo female with hx of PE on eliquis BID, HTN, HLD, DM, CAD, depression, lung cancer with mets to R hip just underwent first dose of zometa on saturday then noted some chest discomfort yesterday and noted L foot swelling. Sent in by Oncology for PE workup MD elicited complaint: shortness of breath and chest pain Pertinent past history: PE and other (lung cancer) Onset (ago): day(s) (1) Context: other (recent zometa - side effect is ankle and foot swelling) Timing: constant Severity: mild Exacerbating factors: exertion Relieving factors: nothing Known history of: PE Associated symptoms: other (leg swelling) Treatment prior to arrival: none Related Data Home Medications Medication Instructions Recorded Confirmed cholecalciferol (vitamin D3) 50 50 mcg PO DAILY 10/26/20 05/23/22 mcg (2,000 unit) capsule verapamil 100 mg capsule 24hr 100 mg PO BEDTIME 10/26/20 05/23/[address],ext.release acetaminophen 500 mg tablet 500 mg PO BID 11/07/20 05/23/22 isosorbide mononitrate 30 mg 30 mg PO DAILY 10/02/21 05/23/22 tablet,extended release 24 hr apixaban 5 mg tablet (Eliquis) 1 tab PO Q12H 02/19/22 05/23/22 ferrous fumarate 325 mg (106 mg 325 mg PO .QOD 03/16/22 05/23/22 iron) tablet alprazolam 0.25 mg tablet 0.25 mg PO DAILY PRN Anxiety 04/27/22 05/23/22 sertraline 100 mg tablet (Zoloft) 100 mg PO DAILY 04/27/22 05/23/22 Previous Rx's Medication Instructions Recorded folic acid 1 mg tablet 1 mg PO DAILY 90 days #90 tabs 05/30/21 clotrimazole 2 % vaginal cream 1 appful vaginal BEDTIME PRN 10/31/21 VAGINAL ITCH #21 grams metoprolol succinate 50 mg 150 mg PO BEDTIME #270 tabs 12/13/21 tablet,extended release 24 hr blood sugar diagnostic (OneTouch #100 ea 12/26/21 Ultra Test strips) blood-glucose meter (OneTouch #1 ea 12/26/21 Ultra2 Meter) lancets 33 gauge (OneTouch Delica #100 ea 12/26/21 Lancets) omeprazole 40 mg capsule,delayed 40 mg PO DAILY 90 days #90 caps 01/03/22 release trazodone 50 mg tablet 50 mg PO BEDTIME #90 tabs 02/27/22 atorvastatin 80 mg tablet 80 mg PO BEDTIME #90 tabs 04/20/22 ondansetron 8 mg disintegrating 8 mg PO Q8H PRN Nausea #30 tabs 05/02/22 tablet sennosides 8.6 mg-docusate sodium 1 tab-cap PO BEDTIME #30 tabs 05/23/22 50 mg tablet (Senna with Docusate Sodium) Allergies Allergy/AdvReac Type Severity Reaction Status Date / Time sulfamethoxazole Allergy Severe Rash Verified 04/20/22 01:48 [From Bactrim] adhesive tape [ADHESIVE TAPE] Allergy Intermediate BLISTERS Verified 04/20/22 01:48 clonidine Allergy makes pt Verified 04/20/22 01:48 hulusinate adhesive AdvReac Severe BLISTERS Verified 04/20/22 01:48 gabapentin AdvReac Severe hallucinati Verified 04/20/22 01:48 on morphine AdvReac Severe hallucinati Verified 04/20/22 01:48 on glue AdvReac Severe BLISTERS Uncoded 04/20/22 01:48 Review of Systems Review of Systems: Constitutional : No Fever, No Chills ENT/Mouth : No sore throat, No Rhinorrhea, No Swallowing Difficulty Eyes: No Eye Pain, No Swelling, No Redness Cardiovascular : pos Chest Pain, positive SOB, No Orthopnea, positive Edema Respiratory : No Cough, No Sputum, No Wheezing, positive dyspnea Gastrointestinal : No Nausea, No Vomiting, No Diarrhea, No abdominal Pain, No Hematochezia, No Melena Genitourinary : No Dysuria, No Urinary Frequency, No Hematuria Musculoskeletal : No joint pain, No Myalgias Skin : No Skin Lesions, No rash Neuro : No Weakness, No Numbness, No Dizziness, No Headache Psych : No Anxiety/Panic, No Depression Heme/Lymph: No Bruising, No Lymphadenopathy Endocrine : No Polyuria, No Polydipsia All other systems reviewed and are negative PMFSH Past Medical History Attestation statement: The following information was validated with the patient. Medical History AAA (abdominal aortic aneurysm) (~2008) Adenocarcinoma of left lung (~2021) Anemia Aortic stenosis Arthritis Atypical migraine AVM (arteriovenous malformation) of colon Barretts esophagus Bilateral pulmonary embolism (~10/2020) Bleeding hemorrhoids CAD (coronary artery disease) Contusion of rib on right side COPD (chronic obstructive pulmonary disease) Depression Essential hypertension GERD without esophagitis GIB (gastrointestinal bleeding) History of blood transfusion Irritable bowel syndrome with both constipation and diarrhea Major depression in full remission Mixed dyslipidemia Nonrheumatic aortic (valve) stenosis Nonrheumatic mitral valve regurgitation Normocytic anemia Obesity On anticoagulant therapy (~10/2020) On beta [place] at home Pulmonary nodules Restless leg syndrome Transient cerebral ischemia Type 2 diabetes mellitus without complication, without long-term current use of insulin Vitamin B12 deficiency Surgical History History of bilateral breast reduction surgery (~2010) History of colonoscopy (~2018) History of coronary artery bypass graft x 2 (~2017) History of esophagogastroduodenoscopy (EGD) (~2020) History of heart artery stent (~2007) History of hysterectomy History of lung biopsy (~2021) History of total right knee replacement (TKR) (~2015) S/P excision of lipoma (~2017) Family History Family History Father HTN (hypertension) Myocardial infarction Hyperlipidemia Abdominal aneurysm Mother HTN (hypertension) Myocardial infarction Hyperlipidemia Brother Alzheimer's disease Substance abuse Sister Rheumatoid arthritis Brother Rheumatoid arthritis Maternal Aunt Diabetes mellitus Lung cancer Maternal Uncle Diabetes mellitus Son No problems noted. Daughter No problems noted. 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 Oriented X3. No acute distress. Eyes: Pupils equal, round and reactive to light. ENT: Pharynx normal. Neck: Normal inspection. Neck supple. CVS: Normal heart rate and rhythm. Pulses normal. Respiratory: No respiratory distress. Breath sounds normal. Abdomen: Soft and nontender. Skin: Skin warm and dry. Normal skin color. Normal skin turgor. Extremities: L foot swelling dorsum of foot otherwise leg appears normal Neuro: Oriented X 3. No motor deficit. No sensory deficit. Course Course Course Narrative: no PE, BNP negative, no DVT, no pneumonia, trop negative x 2 MDM - SOB/Dyspnea MDM Narrative Medical decision making narrative: 77 yo female with hx of PE on eliquis BID, HTN, HLD, DM, CAD, depression, lung cancer with mets to R hip here with c/o dyspnea and chest pain at this time no acute findings on EKG she is slightly more anemia but no GIB complaints will need to be monitored by her oncologist. She also has LLE swelling negative for DVT but given her hx there is is concern for PE will obtain repeat troponin, BNP and CTA for PE. Dispo per results and findings. Lab Data Result diagrams: 06/01/22 17:36 06/01/22 17:36 Labs: Lab Results 06/01/22 06/01/22 06/01/22 Range/Units 17:36 17:36 17:36 WBC 7.2 (4.8-10.8) X10*3/uL RBC 3.15 L (4.20-5.50) X10*6/uL Hgb 9.9 L (12.0-16.0) g/dl Hct 29.9 L (37.0-47.0) % MCV 94.9 (80.0-98.0) fL MCH 31.4 (27.0-33.0) pg MCHC 33.1 (31.0-35.0) g/dl RDW 14.2 (11.0-16.0) % Plt Count 179 D (160-400) X10*3/uL MPV 10.2 (9.4-12.3) fL Absolute Nucleated RBC 0.000 (0.0-0.012) X10*3/uL Nucleated RBC % (auto) 0.0 (0.0-0.2) /100WBC PT 13.9 H (10.0-13.1) SEC INR 1.2 H (0.9-1.1) Sodium 141 (135-145) mmol/L Potassium 3.8 (3.3-5.1) mmol/L Chloride 105 (96-108) mmol/L Carbon Dioxide 22 (22-29) mmol/L Anion Gap 18 (12-20) BUN 23 H (9-16) mg/dL Creatinine 0.81 (0.5-1.4) mg/dL Estim Creat Clear Calc 57.5 Estimated GFR > 60 Random Glucose 151 H (60-115) mg/dL Calcium 9.0 (8.4-10.2) mg/dL Troponin I High Sens (<3.5-17.0) ng/L B-Natriuretic Peptide (<100) pg/mL 06/01/22 06/01/22 Range/Units 17:36 19:25 WBC (4.8-10.8) X10*3/uL RBC (4.20-5.50) X10*6/uL Hgb (12.0-16.0) g/dl Hct (37.0-47.0) % MCV (80.0-98.0) fL MCH (27.0-33.0) pg MCHC (31.0-35.0) g/dl RDW (11.0-16.0) % Plt Count (160-400) X10*3/uL MPV (9.4-12.3) fL Absolute Nucleated RBC (0.0-0.012) X10*3/uL Nucleated RBC % (auto) (0.0-0.2) /100WBC PT (10.0-13.1) SEC INR (0.9-1.1) Sodium (135-145) mmol/L Potassium (3.3-5.1) mmol/L Chloride (96-108) mmol/L Carbon Dioxide (22-29) mmol/L Anion Gap (12-20) BUN (9-16) mg/dL Creatinine (0.5-1.4) mg/dL Estim Creat Clear Calc Estimated GFR Random Glucose (60-115) mg/dL Calcium (8.4-10.2) mg/dL Troponin I High Sens 31.3 H D 35.3 H (<3.5-17.0) ng/L B-Natriuretic Peptide 98 (<100) pg/mL ECG Data Attestation: I personally reviewed and interpreted this ECG as follows: ECG interpretation date: 06/01/22 ECG interpretation time: 18:36 Interpretation: Rate: 79 Rhythm: NSR [place]: left Normal P waves. Normal ASTER. Normal QRS complex. ST T wave : normal no ERICA qTC: normal prior studies: no acute ischemia The study has been interpreted contemporaneously by me. Discharge Plan Discharge Clinical Impression: Acute dyspnea, Pedal edema Chest pain Qualifiers: Chest pain type: unspecified Qualified Code(s): R07.9 - Chest pain, unspecified Instructions: Chest Pain (ED), Edema (ED) Additional Instructions: return to ED for any worsening symptoms or concerns Prescriptions: No Action folic acid 1 mg tablet 1 mg PO DAILY 90 Days Qty: 90 2RF clotrimazole 2 % cream 1 appful vaginal BEDTIME PRN (Reason: VAGINAL ITCH) Qty: 21 1RF metoprolol succinate 50 mg tablet extended release 24 hr 150 mg PO BEDTIME Qty: 270 3RF (DME) blood-glucose meter [OneTouch Ultra2 Meter] Misc See Rx Instructions .Route Qty: 1 0RF Rx Instructions: As directed to test blood sugar once a day (DME) OneTouch Ultra Test Strip See Rx Instructions .Route Qty: 100 3RF Rx Instructions: test blood sugar once daily (DME) lancets [OneTouch Delica Lancets] 33 gauge misc See Rx Instructions .Route Qty: 100 3RF Rx Instructions: test blood sugar once a day omeprazole 40 mg capsule,delayed release(DR/EC) 40 mg PO DAILY 90 Days Qty: 90 2RF trazodone 50 mg tablet 50 mg PO BEDTIME Qty: 90 0RF atorvastatin 80 mg tablet 80 mg PO BEDTIME Qty: 90 0RF Eliquis 5 mg tablet 1 tab PO Q12H sertraline [Zoloft] 100 mg tablet 100 mg PO DAILY alprazolam 0.25 mg tablet 0.25 mg PO DAILY PRN (Reason: Anxiety) ondansetron 8 mg Tablet,Disintegrating 8 mg PO Q8H PRN (Reason: Nausea) Qty: 30 2RF sennosides-docusate sodium [Senna with Docusate Sodium] 8.6-50 mg Tablet 1 tab-cap PO BEDTIME Qty: 30 2RF verapamil 100 mg capsule, [address] 100 mg PO BEDTIME cholecalciferol (vitamin D3) 50 mcg (2,000 unit) capsule 50 mcg PO DAILY ferrous fumarate 325 mg (106 mg iron) tablet 325 mg PO .QOD acetaminophen 500 mg tablet 500 mg PO BID Rx Instructions: Patient takes scheduled BID (in pill box) isosorbide mononitrate 30 mg tablet extended release 24 hr 30 mg PO DAILY Referrals: Sary Waite MD [Primary Care Provider] - 3 days (repeat CBC on Saturday slightly more anemic today )
[2022-06-01 19:00] LABS: Troponin-I High Sensitivity 31.3 ng/L (<3.5-17.0)
--- NOTE | 2022-06-01 19:30 | PC.NURSE ---
pt a&ox3, vss, 20G IV placed left AC, labs drawn, CT notified of IV placement. no new orders at this time.
[2022-06-01 19:59] LABS: Troponin-I High Sensitivity 35.3 ng/L (<3.5-17.0)
[2022-06-01 20:00] VITALS: BP 116/52; PULSE 58; RESP 16; O2SAT 96
[2022-06-01] MEDS: iohexoL 350 MG/ML 100 ML INFUS..BTL IV (20:14)
[2022-06-01 21:22] VITALS: BP 108/83; PULSE 54; RESP 16; TEMP 36.6; O2SAT 95
[2022-06-01 22:45] VITALS: BP 144/66; PULSE 61; RESP 18; O2SAT 97
--- NOTE | 2022-06-04 09:32 | MHC.HEMONC ---
Pt called department stating she is out of the hospital and continues with dyspnea. H & H was 9.9./29.9/platelets 179, states foot not swollen any longer-DVT negative in ED. Pt questioning what does Dr Perdue want to do next. Will notify Dr Perdue
== END 2022-06-01 22:51 | disposition still patient (30) ==
PROVIDERS: Emergency Provider Emergency Medicine; PCP Internal Medicine
DX: R06.02 Shortness of breath (principal); R60.0 Localized edema; R07.89 Other chest pain; I25.10 Atherosclerotic heart disease of native coronary artery without angina pectoris; F17.210 Nicotine dependence, cigarettes, uncomplicated; Z71.6 Tobacco abuse counseling; Z86.711 Personal history of pulmonary embolism; Z79.899 Other long term (current) drug therapy; Z79.01 Long term (current) use of anticoagulants
CPT/HCPCS: 36415; 71275; 80048; 83880; 84484; 85027; 85610; 93005; 93971; 99284; Q9967

== ENCOUNTER 2022-06-25 09:08 | Outpatient (REF) | payer MEDICARE, SELFPAY ==
[2022-06-25 11:09] LABS: MANUAL DIFF FLAG NO
[2022-06-25 11:36] LABS: Basophils Percent Auto 0.3 % (0-2); Eosinophils Absolute Auto 0.1 X10*3/uL (0.0-0.4); Eosinophils Percent Auto 1.2 % (0-4); Hematocrit 35.8 % (37.0-47.0); Hemoglobin 11.8 g/dl (12.0-16.0); Imm Gran Abs Auto 0.02 X10*3/uL (0.00-0.03); Imm Gran Pct Auto 0.3 % (0.0-0.4); Lymphocytes Absolute Auto 0.9 X10*3/uL (1.2-4.9); Lymphocytes Percent Auto 13.7 % (20-40); Mean Corpuscular Hemoglobin 30.3 pg (27.0-33.0); Mean Corpuscular Volume 91.8 fL (80.0-98.0); Mean Platelet Volume 10.9 fL (9.4-12.3); Monocytes Absolute Auto 0.5 X10*3/uL (0.1-1.2); Neutrophils Absolute Auto 5.1 x10*3/uL (2.0-8.3); Neutrophils Percent Auto 77.5 % (45-73); Platelet Count 241 X10*3/uL (160-400); Red Cell Distribution Width 14.6 % (11.0-16.0); White Blood Count 6.6 X10*3/uL (4.8-10.8)
[2022-06-25 11:43] LABS: Estimated Average Glucose 163 mg/dL; Hemoglobin A1c % 7.3 %
[2022-06-25 12:00] LABS: Alanine Aminotransferase 17 U/L (0-31); Albumin Level 4.1 g/dL (3.5-5.0); Alkaline Phosphatase 69 U/L (39-117); Anion Gap 15 (12-20); Aspartate Amino Transferase 23 U/L (5-31); Bilirubin Total 0.2 mg/dL (0.0-1.0); Blood Urea Nitrogen 15 mg/dL (9-16); Calcium 9.2 mg/dL (8.4-10.2); Carbon Dioxide 24 mmol/L (22-29); Chloride 105 mmol/L (96-108); Cholesterol 171 mg/dL; Estimated Glomerular Filt Rate > 60; Glucose Random 286 mg/dL (60-115); HDL Cholesterol 44 mg/dL; LDL Cholesterol Calculated 85 mg/dl; Potassium 4.4 mmol/L (3.3-5.1); Sodium 140 mmol/L (135-145); Total Protein 7.2 g/dL (6.5-8.0); Triglycerides 210 mg/dL
[2022-06-25 12:05] LABS: Thyroid Stimulating Hormone 1.57 uIU/mL (0.32-4.0)
[2022-06-25 12:08] LABS: Vitamin D 25-OH Total 39.3 ng/mL (>30)
[2022-06-25 12:10] LABS: HBS Num1 2.72 mIU/mL (0-7.99); HBc Num1 0.08 S/CO (0.00-0.79); HBsAGNum1 0.26 S/CO (0.00-0.99); Hepatitis B Core Antibody Nonreactive (Nonreactive); Hepatitis B Surface Antigen Negative (Negative); ~Hepatitis B Surface Antibody NONREACTIVE (Nonreactive)
[2022-06-25 12:30] LABS: Folate > 20.0 ng/mL (> or = 4.0); Vitamin B12 718 pg/mL (200-900)
== END 2022-06-25 09:09 | disposition home or self-care (01) ==
LOC: HO.HMGCLDS 09:08
PROVIDERS: Absent Provider Internal Medicine; PCP Internal Medicine; Visit Provider Internal Medicine
DX: C34.92 Malignant neoplasm of unspecified part of left bronchus or lung (principal); E11.65 Type 2 diabetes mellitus with hyperglycemia; E53.8 Deficiency of other specified B group vitamins; E78.2 Mixed hyperlipidemia; N95.9 Unspecified menopausal and perimenopausal disorder
CPT/HCPCS: 36415; 80053; 80061; 82306; 82607; 82746; 83036; 84443; 85025; 86704; 86706; 87340

== ENCOUNTER 2022-06-26 11:49 | Outpatient (REF) | payer MEDICARE, SELFPAY ==
--- NOTE | ~2022-06-26 | XR_ITS ---
EXAMINATION: XR THORACOLUMBAR SPINE CLINICAL INFORMATION: Pain. COMPARISON: CT scan of the abdomen and pelvis February 2022. CT chest May 2022. TECHNIQUE: 3 views of the dorsal spine. FINDINGS: There are multilevel degenerative disc changes manifested by endplate osteophytes scattered throughout the dorsal spine. There is a kyphosis measured at 62 degrees measured between approximately T3 and T12. There is calcific atherosclerotic changes of the thoracic and upper abdominal aorta. There is aneurysmal dilatation of the proximal abdominal aorta measuring 3.7 cm AP, likely unchanged compared with the recent CT examination allowing for differences in magnification on radiographs. Sternotomy wires incidentally noted. XR/XR thoracic spine 2V IMPRESSION: Multilevel spondylosis of the lumbosacral spine. No acute abnormality. Calcific atherosclerotic changes with aneurysmal dilatation of the abdominal aorta, probably unchanged compared with prior examinations most recent CT February 2022 allowing for magnification effect with radiographs compared with CT. If clinical concern for enlarging aortic aneurysm, suggest further evaluation with ultrasound.
--- NOTE | ~2022-06-26 | XR_ITS ---
EXAMINATION: XR RIBS, BILATERAL CLINICAL INFORMATION: Pain COMPARISON: None TECHNIQUE: 3 views of the bilateral ribs were obtained. FINDINGS: Sternotomy wires present. Lungs are clear. No consolidation, pneumothorax, or pleural effusion. The cardiomediastinal silhouette and pulmonary vasculature are normal. Osseous structures are unremarkable. Ribs are intact. No fractures are identified. XR/XR ribs BI min 4V w CXR1V IMPRESSION: No acute disease. No rib fractures.
== END 2022-06-26 11:50 | disposition home or self-care (01) ==
LOC: HO.XRAY 11:49
PROVIDERS: Visit Provider Internal Medicine
DX: C79.51 Secondary malignant neoplasm of bone (principal)
CPT/HCPCS: 71111; 72070

== ENCOUNTER 2022-07-02 22:25 | Emergency (ER) | payer MEDICARE, SELFPAY ==
--- NOTE | ~2022-07-02 | XR_ITS ---
EXAMINATION: XR CHEST CLINICAL INFORMATION: Shortness of breath, weakness COMPARISON: 02/15/2022 TECHNIQUE: Frontal view of the chest was obtained. FINDINGS: Sternal wires and mediastinal vascular clips. No acute pulmonary disease. Heart size upper limits of normal. No pleural effusion or pneumothorax. Normal pulmonary vascularity. Regional skeleton intact. XR/XR chest 1V IMPRESSION: No acute pulmonary disease.
[2022-07-02 22:47] VITALS: BP 114/69; PULSE 98; RESP 18; TEMP 37.2; O2SAT 96; BMI 36.1
--- NOTE | 2022-07-02 22:48 | ECG_ITS ---
Test Reason : sob Blood Pressure : / mmHG Vent. Rate : 090 BPM Atrial Rate : 090 BPM P-R Int : 152 ms QRS Dur : 082 ms QT Int : 380 ms P-R-T Axes : 048 -15 057 degrees QTc Int : 464 ms Normal sinus rhythm Inferior infarct , age undetermined Abnormal ECG When compared with ECG of 01-JUN-2022 17:29, Inferior infarct is now Present Referred By: Generic ED Physician Electronically Signed By:BLANCA HARDWICK
[2022-07-02 22:59] LABS: MANUAL DIFF FLAG NO
[2022-07-02 23:01] LABS: Basophils Percent Auto 0.1 % (0-2); Eosinophils Absolute Auto 0.1 X10*3/uL (0.0-0.4); Eosinophils Percent Auto 1.3 % (0-4); Hematocrit 29.7 % (37.0-47.0); Imm Gran Abs Auto 0.04 X10*3/uL (0.00-0.03); Imm Gran Pct Auto 0.6 % (0.0-0.4); Lymphocytes Percent Auto 13.9 % (20-40); Mean Corpuscular HGB Conc 33.7 g/dl (31.0-35.0); Mean Corpuscular Hemoglobin 30.9 pg (27.0-33.0); Mean Corpuscular Volume 91.7 fL (80.0-98.0); Mean Platelet Volume 10.1 fL (9.4-12.3); Monocytes Absolute Auto 0.6 X10*3/uL (0.1-1.2); Monocytes Percent Auto 9.1 % (2-11); Neutrophils Absolute Auto 5.2 x10*3/uL (2.0-8.3); Platelet Count 231 X10*3/uL (160-400); Red Blood Count 3.24 X10*6/uL (4.20-5.50); Red Cell Distribution Width 14.2 % (11.0-16.0); White Blood Count 6.9 X10*3/uL (4.8-10.8)
[2022-07-02 23:11] LABS: Glucose, Whole Blood 468 mg/dL (60-115)
[2022-07-02 23:21] LABS: Troponin-I High Sensitivity < 3.5 ng/L (<3.5-17.0)
[2022-07-02 23:22] LABS: COVID-19 Test Negative (Negative)
[2022-07-02 23:34] LABS: Alanine Aminotransferase 19 U/L (0-31); Alkaline Phosphatase 75 U/L (39-117); Anion Gap 19 (12-20); Aspartate Amino Transferase 35 U/L (5-31); Bilirubin Direct < 0.2 mg/dL (0.0-0.5); Bilirubin Total 0.3 mg/dL (0.0-1.0); Blood Urea Nitrogen 24 mg/dL (9-16); Calcium 9.4 mg/dL (8.4-10.2); Carbon Dioxide 22 mmol/L (22-29); Chloride 98 mmol/L (96-108); Creatinine Clr Calc Pharmacy 43.2; Estimated Glomerular Filt Rate 49; Glucose Random 572 mg/dL (60-115); Potassium 4.7 mmol/L (3.3-5.1); Sodium 134 mmol/L (135-145); Total Protein 7.2 g/dL (6.5-8.0)
[2022-07-02 23:59] LABS: Lipase 1723 U/L (8-78)
--- NOTE | 2022-07-03 00:06 | ED.GENADULT ---
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 She was however recently transition to insulin, and took her 1st dose of insulin this last evening, 10 units of Lantus subcutaneous. Patient has noted her blood sugars been high, in the 500s. She has been on new medicines in last month for her cancer, denies being on any steroids. She denies any acute headache, new shortness of breath, chest pain, vomiting or diarrhea. She does have mild abdominal discomfort. She denies any urinary symptoms. Related Data Home Medications Medication Instructions Recorded Confirmed cholecalciferol (vitamin D3) 50 50 mcg PO DAILY 10/26/20 05/23/22 mcg (2,000 unit) capsule verapamil 100 mg capsule 24hr 100 mg PO BEDTIME 10/26/20 05/23/[address],ext.release acetaminophen 500 mg tablet 500 mg PO BID 11/07/20 05/23/22 isosorbide mononitrate 30 mg 30 mg PO DAILY 10/02/21 05/23/22 tablet,extended release 24 hr apixaban 5 mg tablet (Eliquis) 1 tab PO Q12H 02/19/22 05/23/22 ferrous fumarate 325 mg (106 mg 325 mg PO .QOD 03/16/22 05/23/22 iron) tablet sertraline 100 mg tablet (Zoloft) 100 mg PO DAILY 04/27/22 05/23/22 pembrolizumab 25 mg/mL intravenous 200 mg IV Q3W 06/19/22 06/19/22 solution Previous Rx's Medication Instructions Recorded folic acid 1 mg tablet 1 mg PO DAILY 90 days #90 tabs 05/30/21 clotrimazole 2 % vaginal cream 1 appful vaginal BEDTIME PRN 10/31/21 VAGINAL ITCH #21 grams metoprolol succinate 50 mg 150 mg PO BEDTIME #270 tabs 12/13/21 tablet,extended release 24 hr blood sugar diagnostic (OneTouch #100 ea 12/26/21 Ultra Test strips) blood-glucose meter (OneTouch #1 ea 12/26/21 Ultra2 Meter) lancets 33 gauge (OneTouch Delica #100 ea 12/26/21 Lancets) omeprazole 40 mg capsule,delayed 40 mg PO DAILY 90 days #90 caps 01/03/22 release atorvastatin 80 mg tablet 80 mg PO BEDTIME #90 tabs 04/20/22 sennosides 8.6 mg-docusate sodium 1 tab-cap PO BEDTIME #30 tabs 05/23/22 50 mg tablet (Senna with Docusate Sodium) alprazolam 0.25 mg tablet 0.25 mg PO DAILY PRN Anxiety #20 06/04/22 tabs trazodone 50 mg tablet 50 mg PO BEDTIME #90 tabs 06/04/22 Magic Mouthwash 10 ml PO TID #240 mL 06/19/22 Diphen/Lido/Antacid 1:1:1 240 mL suspension loratadine 10 mg tablet (Allergy 10 mg PO DAILY #30 tabs 06/25/22 Relief (loratadine)) nystatin 100,000 unit/mL oral 1 ml buccal BID-TID #60 mL 06/26/22 suspension nystatin 100,000 unit/gram topical 1 appl topical TID #100 grams 06/29/22 powder Lantus Solostar U-100 Insulin 100 10 unit (0.1 mL) subcut QPM #15 mL 07/02/22 unit/mL (3 mL) subcutaneous pen (insulin glargine) pen needle, diabetic 29 gauge x #100 ea 07/02/22 1/2 (BD Ultra-Fine Original Pen Needle) Allergies Allergy/AdvReac Type Severity Reaction Status Date / Time sulfamethoxazole Allergy Severe Rash Verified 07/02/22 16:58 [From Bactrim] adhesive tape [ADHESIVE TAPE] Allergy Intermediate BLISTERS Verified 07/02/22 16:58 clonidine Allergy makes pt Verified 07/02/22 16:58 hulusinate adhesive AdvReac Severe BLISTERS Verified 07/02/22 16:58 gabapentin AdvReac Severe hallucinati Verified 07/02/22 16:58 on morphine AdvReac Severe hallucinati Verified 07/02/22 16:58 on glue AdvReac Severe BLISTERS Uncoded 07/02/22 16:58 Review of Systems Review of Systems: Yes all other systems are reviewed and are negative Constitutional: Constitutional: Reports as per HPI and Denies fever(s) Eyes: Eyes: Reports as per HPI and Reports no additional eye complaints ENT: Reports system reviewed and no additional complaints, except as documented, Reports as per HPI, Denies nasal congestion, Denies nasal discharge and Denies sore throat Cardiovascular: Cardiovascular: Reports as per HPI, Denies chest pain and Denies dyspnea Respiratory: Respiratory: Reports as per HPI, Denies cough and Denies dyspnea Gastrointestinal: Gastrointestinal: Reports as per HPI, Denies abdominal pain, Denies diarrhea and Denies vomiting Genitourinary: Genitourinary: Reports as per HPI, Denies hematuria, Denies urinary frequency and Denies dysuria Musculoskeletal: Musculoskeletal: Reports no additional musculoskeletal complaints and Denies numbness Integumentary/Breasts: Skin/Breast: Reports as per HPI and Denies rash Neurologic: Reports as per HPI, Denies focal weakness and Denies numbness Psychiatric: Psychiatric: Reports no additional psychiatric complaints and Reports as per HPI Endocrine: Endocrine: Reports no additional endocrine complaints and Reports as per HPI Hematologic/Lymphatic: Hematologic/Lymphatic: Reports no additional hematologic/lymphatic complaints, Reports as per HPI and Reports other (No peripheral edema) [facility] Past Medical History Medical History (Updated 07/03/22 @ 03:39 by Mark Soliman MD) AAA (abdominal aortic aneurysm) (~2008) Adenocarcinoma of left lung (~2021) Anemia Aortic stenosis Arthritis Atypical migraine AVM (arteriovenous malformation) of colon Barretts esophagus Bilateral pulmonary embolism (~10/2020) Bleeding hemorrhoids CAD (coronary artery disease) Contusion of rib on right side COPD (chronic obstructive pulmonary disease) Depression Diabetes mellitus with hyperglycemia Diabetes mellitus with hyperglycemia, without long-term current use of insulin Essential hypertension GERD without esophagitis GIB (gastrointestinal bleeding) History of blood transfusion Irritable bowel syndrome with both constipation and diarrhea Major depression in full remission Metformin adverse reaction Mixed dyslipidemia Nonrheumatic aortic (valve) stenosis Nonrheumatic mitral valve regurgitation Normocytic anemia Obesity On anticoagulant therapy (~10/2020) On beta [place] at home Pulmonary nodules Restless leg syndrome Transient cerebral ischemia Vitamin B12 deficiency Surgical History History of bilateral breast reduction surgery (~2010) History of colonoscopy (~2018) History of coronary artery bypass graft x 2 (~2017) History of esophagogastroduodenoscopy (EGD) (~2020) History of heart artery stent (~2007) History of hysterectomy History of lung biopsy (~2021) History of total right knee replacement (TKR) (~2015) S/P excision of lipoma (~2017) Family History Family History Father HTN (hypertension) Myocardial infarction Hyperlipidemia Abdominal aneurysm Mother HTN (hypertension) Myocardial infarction Hyperlipidemia Brother Alzheimer's disease Substance abuse Sister Rheumatoid arthritis Brother Rheumatoid arthritis Maternal Aunt Diabetes mellitus Lung cancer Maternal Uncle Diabetes mellitus Son No problems noted. Daughter No problems noted. 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/ [employer] Cognitive needs: No Hearing needs: No Vision needs: Yes Physical Exam ED Vital Signs: Vital Signs - 24 hr 07/02/22 22:47 07/03/22 00:21 Temperature 98.9 F 98.2 F Pulse Rate 98 84 Respiratory Rate 18 18 Blood Pressure 114/69 134/60 Pulse Oximetry 96 94 Oxygen Delivery Method Room Air Room Air BMI result Body Mass Index 36.1 Const General: no acute distress Orientation/consciousness: patient oriented x3 HENMT Head: Yes normal to inspection General nose exam: Normal external nose present Mouth: moist mucous membranes Throat: Yes posterior oropharynx normal, Yes tonsils normal and Yes uvula midline Eyes Eyelids: Yes eyelids normal Conjunctivae: conjunctivae normal Pupils: Equal, round and reactive pupils present Neck Neck: Yes supple Resp Effort & Inspection: normal respiratory effort Auscultation: clear to auscultation bilaterally Cardio Rate: regular rate Rhythm: regular rhythm Heart sounds: S1 normal heart sound present, S2 normal heart sound present, no gallops, no murmurs and no rubs GI Inspection: No distended Palpation (GI): Soft to palpation and nontender Auscultation: normal bowel sounds Skin General skin exam: other (Warm and dry) Neuro General: patient oriented x3 and CN's II-XI intact bilaterally Cranial nerves: Yes Equal, round and reactive pupils present Extrem General: Yes no pedal edema Psych Affect: normal affect Attitude: cooperative Medical Decision Making [facility] Narrative Medical decision making narrative: Patient with hyperglycemia, had been on p.o. medications to control glucose and had been taken off of them in February because her blood sugar was well controlled. Patient had recently started on medicines for lung cancer and she believes those had caused her blood sugar to be worse. The patient also admits to dietary indiscretion, states she has a sweet tooth and weakness for carbs. Patient was started on Lantus 10 units subcutaneous, had her 1st dose last night but her blood sugar was in the upper 500s here. The patient was treated with normal saline 1 L IV, this pro insulin 20 units subcutaneous. Discussed outpatient insulin regimen with the hospitalist, who reviewed the patient's records and since the patient's hemoglobin A1c was only around 7, she felt that the insulin should only be increased a little, to 15 units q.p.m., and the patient can monitor her blood sugar and follow up with primary care physician. Patient is not ill appearing, no evidence of infection, acute coronary syndrome, stroke, or any other acute stress or inflammation Critical care time for this life-threatening illness exclusive of all other billable procedures was approximately 35 minutes including initial evaluation of the patient, ordering tests, x-ray interpretation, EKG interpretation, medical consultation, documentation, reevaluation. Lab Data Lab results reviewed: Yes I reviewed the patient's lab results. Result diagrams: 07/02/22 22:55 07/02/22 22:55 Labs: Lab Results 07/02/22 07/02/22 07/02/22 Range/Units 22:52 22:55 22:55 WBC 6.9 (4.8-10.8) X10*3/uL RBC 3.24 L (4.20-5.50) X10*6/uL Hgb 10.0 L (12.0-16.0) g/dl Hct 29.7 L (37.0-47.0) % MCV 91.7 (80.0-98.0) fL MCH 30.9 (27.0-33.0) pg MCHC 33.7 (31.0-35.0) g/dl RDW 14.2 (11.0-16.0) % Plt Count 231 (160-400) X10*3/uL MPV 10.1 (9.4-12.3) fL Immature Gran % (Auto) 0.6 H (0.0-0.4) % Neut % (Auto) 75.0 H (45-73) % Lymph % (Auto) 13.9 L (20-40) % [place] % (Auto) 9.1 (2-11) % Eos % (Auto) 1.3 (0-4) % Baso % (Auto) 0.1 (0-2) % Lymph # (Auto) 1.0 L (1.2-4.9) X10*3/uL [place] # (Auto) 0.6 (0.1-1.2) X10*3/uL Eos # (Auto) 0.1 (0.0-0.4) X10*3/uL Baso # (Auto) 0.0 (0.0-0.2) X10*3/uL Abs Immat Gran (auto) 0.04 H (0.00-0.03) X10*3/uL Absolute Neuts (auto) 5.2 (2.0-8.3) x10*3/uL Absolute Nucleated RBC 0.000 (0.0-0.012) X10*3/uL Nucleated RBC % (auto) 0.0 (0.0-0.2) /100WBC Sodium 134 L (135-145) mmol/L Potassium 4.7 (3.3-5.1) mmol/L Chloride 98 (96-108) mmol/L Carbon Dioxide 22 (22-29) mmol/L Anion Gap 19 (12-20) BUN 24 H D (9-16) mg/dL Creatinine 1.08 (0.5-1.4) mg/dL Estim Creat Clear Calc 43.2 Estimated GFR 49 POC Glucose 468 H* (60-115) mg/dL Random Glucose 572 H* (60-115) mg/dL Calcium 9.4 (8.4-10.2) mg/dL Total Bilirubin 0.3 (0.0-1.0) mg/dL Direct Bilirubin < 0.2 (0.0-0.5) mg/dL AST 35 H D (5-31) U/L ALT 19 (0-31) U/L Alkaline Phosphatase 75 (39-117) U/L Troponin I High Sens (<3.5-17.0) ng/L Total Protein 7.2 (6.5-8.0) g/dL Albumin 4.0 (3.5-5.0) g/dL Lipase 1723 H (8-78) U/L Urine Color Urine Appearance Urine pH (5.0-9.0) Ur Specific [place] (1.005-1.025) Urine Protein (Neg-Trace) mg/dL Urine Glucose (UA) (Negative) mg/dL Urine Ketones (Negative) mg/dL Urine Blood (Negative) Urine Nitrite (Negative) Ur Leukocyte Esterase (Negative) Urine RBC (0-2) /HPF Urine WBC (0-5) /HPF Ur Squamous Epith Cells (0-2) /HPF Urine Bacteria (None Seen) Hyaline Casts (0-2) /LPF COVID-19 (ARNAV) (Negative) COVID-19 Clin Com 07/02/22 07/02/22 07/03/22 Range/Units 22:55 22:55 01:18 WBC (4.8-10.8) X10*3/uL RBC (4.20-5.50) X10*6/uL Hgb (12.0-16.0) g/dl Hct (37.0-47.0) % MCV (80.0-98.0) fL MCH (27.0-33.0) pg MCHC (31.0-35.0) g/dl RDW (11.0-16.0) % Plt Count (160-400) X10*3/uL MPV (9.4-12.3) fL Immature Gran % (Auto) (0.0-0.4) % Neut % (Auto) (45-73) % Lymph % (Auto) (20-40) % [place] % (Auto) (2-11) % Eos % (Auto) (0-4) % Baso % (Auto) (0-2) % Lymph # (Auto) (1.2-4.9) X10*3/uL [place] # (Auto) (0.1-1.2) X10*3/uL Eos # (Auto) (0.0-0.4) X10*3/uL Baso # (Auto) (0.0-0.2) X10*3/uL Abs Immat Gran (auto) (0.00-0.03) X10*3/uL Absolute Neuts (auto) (2.0-8.3) x10*3/uL Absolute Nucleated RBC (0.0-0.012) X10*3/uL Nucleated RBC % (auto) (0.0-0.2) /100WBC Sodium (135-145) mmol/L Potassium (3.3-5.1) mmol/L Chloride (96-108) mmol/L Carbon Dioxide (22-29) mmol/L Anion Gap (12-20) BUN (9-16) mg/dL Creatinine (0.5-1.4) mg/dL Estim Creat Clear Calc Estimated GFR POC Glucose (60-115) mg/dL Random Glucose (60-115) mg/dL Calcium (8.4-10.2) mg/dL Total Bilirubin (0.0-1.0) mg/dL Direct Bilirubin (0.0-0.5) mg/dL AST (5-31) U/L ALT (0-31) U/L Alkaline Phosphatase (39-117) U/L Troponin I High Sens < 3.5 D (<3.5-17.0) ng/L Total Protein (6.5-8.0) g/dL Albumin (3.5-5.0) g/dL Lipase (8-78) U/L Urine Color Yellow Urine Appearance Clear Urine pH 5.5 (5.0-9.0) Ur Specific [place] >= 1.030 H (1.005-1.025) Urine Protein Negative (Neg-Trace) mg/dL Urine Glucose (UA) >=1000 H (Negative) mg/dL Urine Ketones Negative (Negative) mg/dL Urine Blood Negative (Negative) Urine Nitrite Negative (Negative) Ur Leukocyte Esterase Negative (Negative) Urine RBC 0-2 (0-2) /HPF Urine WBC 0-5 (0-5) /HPF Ur Squamous Epith Cells 0-2 (0-2) /HPF Urine Bacteria None Seen (None Seen) Hyaline Casts 0-2 (0-2) /LPF COVID-19 (ARNAV) Negative (Negative) COVID-19 Clin Com See Note 07/03/22 07/03/22 Range/Units 01:24 02:19 WBC (4.8-10.8) X10*3/uL RBC (4.20-5.50) X10*6/uL Hgb (12.0-16.0) g/dl Hct (37.0-47.0) % MCV (80.0-98.0) fL MCH (27.0-33.0) pg MCHC (31.0-35.0) g/dl RDW (11.0-16.0) % Plt Count (160-400) X10*3/uL MPV (9.4-12.3) fL Immature Gran % (Auto) (0.0-0.4) % Neut % (Auto) (45-73) % Lymph % (Auto) (20-40) % [place] % (Auto) (2-11) % Eos % (Auto) (0-4) % Baso % (Auto) (0-2) % Lymph # (Auto) (1.2-4.9) X10*3/uL [place] # (Auto) (0.1-1.2) X10*3/uL Eos # (Auto) (0.0-0.4) X10*3/uL Baso # (Auto) (0.0-0.2) X10*3/uL Abs Immat Gran (auto) (0.00-0.03) X10*3/uL Absolute Neuts (auto) (2.0-8.3) x10*3/uL Absolute Nucleated RBC (0.0-0.012) X10*3/uL Nucleated RBC % (auto) (0.0-0.2) /100WBC Sodium (135-145) mmol/L Potassium (3.3-5.1) mmol/L Chloride (96-108) mmol/L Carbon Dioxide (22-29) mmol/L Anion Gap (12-20) BUN (9-16) mg/dL Creatinine (0.5-1.4) mg/dL Estim Creat Clear Calc Estimated GFR POC Glucose 382 H* 319 H (60-115) mg/dL Random Glucose (60-115) mg/dL Calcium (8.4-10.2) mg/dL Total Bilirubin (0.0-1.0) mg/dL Direct Bilirubin (0.0-0.5) mg/dL AST (5-31) U/L ALT (0-31) U/L Alkaline Phosphatase (39-117) U/L Troponin I High Sens (<3.5-17.0) ng/L Total Protein (6.5-8.0) g/dL Albumin (3.5-5.0) g/dL Lipase (8-78) U/L Urine Color Urine Appearance Urine pH (5.0-9.0) Ur Specific [place] (1.005-1.025) Urine Protein (Neg-Trace) mg/dL Urine Glucose (UA) (Negative) mg/dL Urine Ketones (Negative) mg/dL Urine Blood (Negative) Urine Nitrite (Negative) Ur Leukocyte Esterase (Negative) Urine RBC (0-2) /HPF Urine WBC (0-5) /HPF Ur Squamous Epith Cells (0-2) /HPF Urine Bacteria (None Seen) Hyaline Casts (0-2) /LPF COVID-19 (ARNAV) (Negative) COVID-19 Clin Com ECG Data Attestation: I personally reviewed and interpreted this ECG as follows: Interpretation: Sinus rhythm with a rate of 90. Q-waves in leads 3 and AVF consistent with an old inferior infarct. Delayed R-wave progression. EKG appears similar to 1 dated 06/01/2022. Discharge Plan Discharge Clinical Impression: Acute hyperglycemia Patient Disposition: Home, Self-Care Instructions: Diabetic Hyperglycemia (ED) Additional Instructions: Avoid concentrated sweets as well as carbohydrates. Drink plenty of water. Increase your Lantus insulin to 15 units in the evening. Make sure to check your blood sugar and record 4 your primary care physician as directed by your physician before meals and bedtime Prescriptions: No Action folic acid 1 mg tablet 1 mg PO DAILY 90 Days Qty: 90 2RF clotrimazole 2 % cream 1 appful vaginal BEDTIME PRN (Reason: VAGINAL ITCH) Qty: 21 1RF metoprolol succinate 50 mg tablet extended release 24 hr 150 mg PO BEDTIME Qty: 270 3RF (DME) blood-glucose meter [OneTouch Ultra2 Meter] [facility] See Rx Instructions .Route Qty: 1 0RF Rx Instructions: As directed to test blood sugar once a day (DME) OneTouch Ultra Test Strip See Rx Instructions .Route Qty: 100 3RF Rx Instructions: test blood sugar once daily (DME) lancets [OneTouch Delica Lancets] [facility] [place] See Rx Instructions .Route Qty: 100 3RF Rx Instructions: test blood sugar once a day omeprazole 40 mg capsule,delayed release(DR/EC) 40 mg PO DAILY 90 Days Qty: 90 2RF atorvastatin 80 mg tablet 80 mg PO BEDTIME Qty: 90 0RF alprazolam 0.25 mg tablet 0.25 mg PO DAILY PRN (Reason: Anxiety) Qty: 20 0RF trazodone 50 mg tablet 50 mg PO BEDTIME Qty: 90 0RF Eliquis 5 mg tablet 1 tab PO Q12H sertraline [Zoloft] 100 mg tablet 100 mg PO DAILY sennosides-docusate sodium [Senna with Docusate Sodium] 8.6-50 mg Tablet 1 tab-cap PO BEDTIME Qty: 30 2RF Magic Mouthwash Diphen/Lido/Antacid 1:1:1 240 mL Suspension 10 ml PO TID Qty: 240 2RF Rx Instructions: Lidocaine Viscous 2 % 80mL; diphenhydramine 12.5 mg/5 mL 80mL; aluminum-mag hydrox-simeth [id number]/5mL 80mL nystatin 100,000 unit/mL Suspension 1 ml BUCCAL BID-TID Qty: 60 0RF Rx Instructions: administer 1/2 of dose in each side of the mouth nystatin 100,000 unit/gram Powder 1 appl TOPICAL TID Qty: 100 0RF verapamil 100 mg capsule, [address] 100 mg PO BEDTIME cholecalciferol (vitamin D3) 50 mcg (2,000 unit) capsule 50 mcg PO DAILY ferrous fumarate 325 mg (106 mg iron) tablet 325 mg PO .QOD loratadine [Allergy Relief (loratadine)] 10 mg tablet 10 mg PO DAILY Qty: 30 0RF insulin glargine [Lantus Solostar U-100 Insulin] 100 unit/mL (3 mL) insulin pen 10 unit subcut QPM Qty: 15 1RF (DME) pen needle, diabetic [BD Ultra-Fine Orig Pen Needle] 29 gauge x 1/2 needle See Rx Instructions .Route Qty: 100 0RF Rx Instructions: As directed pembrolizumab 25 mg/mL solution 200 mg IV Q3W Rx Instructions: administer over 30 mins acetaminophen 500 mg tablet 500 mg PO BID Rx Instructions: Patient takes scheduled BID (in pill box) isosorbide mononitrate 30 mg tablet extended release 24 hr 30 mg PO DAILY Interventions: ED Discharge Assessment Last Done: 07/03/22 03:50 Discharge Date/Time: 07/03/22 03:58
[2022-07-03 00:21] VITALS: BP 134/60; PULSE 84; RESP 18; TEMP 36.8; O2SAT 94
[2022-07-03] MEDS: Insulin Lispro 100 UNIT/ML 3 ML VIAL 20 UNIT SUBCUT (00:33)
--- NOTE | 2022-07-03 00:35 | PC.NURSE ---
pt a&ox3, vss, medicated per provider order, 22G IV placed right AC, NaCl running. no new orders at this time.
[2022-07-03] MEDS: 0.9 % Sodium Chloride 1,000 ML 999 ML IV (00:47)
[2022-07-03 01:24] LABS: Appearance Urine Clear; Color Urine Yellow; Glucose Urine UA >=1000 mg/dL (Negative); Leukocyte Esterase Urine Negative (Negative); Nitrite Urine Negative (Negative); PH 5.5 (5.0-9.0); Specific Gravity - Urine >= 1.030 (1.005-1.025); UMIC TRIGGER UACC YES; Urine Blood Negative (Negative); Urine Ketones Negative (Negative); Urine Protein Negative (Neg-Trace)
[2022-07-03 01:29] LABS: Bacteria Urine None Seen (None Seen); Hyaline Casts Urine 0-2 /LPF (0-2); RBC Urine 0-2 /HPF (0-2); Squamous Epithelial Cell Urine 0-2 /HPF (0-2); WBC Urine 0-5 /HPF (0-5)
[2022-07-03 01:30] LABS: Glucose, Whole Blood 382 mg/dL (60-115)
[2022-07-03 02:22] LABS: Glucose, Whole Blood 319 mg/dL (60-115)
== END 2022-07-03 03:58 | disposition home or self-care (01) ==
PROVIDERS: Emergency Provider Emergency Medicine; PCP Internal Medicine
DX: E11.65 Type 2 diabetes mellitus with hyperglycemia (principal); R06.02 Shortness of breath; Z20.822 Contact with and (suspected) exposure to COVID-19; Z79.899 Other long term (current) drug therapy; Z87.891 Personal history of nicotine dependence; Z79.4 Long term (current) use of insulin
CPT/HCPCS: 36415; 71045; 80053; 81001; 82248; 82947; 83690; 84484; 85025; 87635; 93005; 96360; 96361; 99284

== ENCOUNTER 2022-07-03 12:19 | Observation (INO) | payer MEDICARE, SELFPAY ==
--- NOTE | ~2022-07-03 | CT_ITS ---
EXAMINATION: CT ABDOMEN AND PELVIS WITH CONTRAST CLINICAL INFORMATION: Pain, elevated lipase, assess for pancreatitis COMPARISON: 03/12/2022 TECHNIQUE: Multidetector volumetric images were obtained from the superior aspect of the liver through the pubic symphysis following administration 85 mL of Omnipaque 350 intravenous contrast. Sagittal and coronal reformatted images were obtained on the technologist's workstation. Oral contrast: No This CT examination was performed using dose optimization techniques as appropriate, variously including the following: *Automated exposure control *Adjustment of mA and/or kV according to patient size (this includes techniques or standardized protocols for targeted exams where dose is matched to indication/reason for exam; i.e. extremities or head) *Use of iterative reconstruction technique DLP: 789 mGy-cm FINDINGS: LUNG BASES: The visualized lung bases are unremarkable. LIVER, GALLBLADDER, AND BILIARY TREE: The liver is enlarged measuring approximately 21 cm in length. No focal hepatic lesion or biliary ductal dilatation is present. The gallbladder is unremarkable with no evidence of radiopaque gallstones, gallbladder wall thickening, or obvious pericholecystic inflammatory changes. PANCREAS: Subtle peripancreatic stranding noted. SPLEEN: Unremarkable. ADRENAL GLANDS: Unremarkable. KIDNEYS AND URETERS: No hydronephrosis or obstructing calculus bilaterally. Bilateral nephrograms are symmetric. There is a 2 mm left upper pole renal calculus. BLADDER: Collapsed and not adequately evaluated. GASTROINTESTINAL TRACT: No evidence of bowel obstruction or significant wall thickening. Sigmoid colon diverticulosis is noted. The appendix is unremarkable. No free fluid or free air is seen. ABDOMINAL WALL: No significant hernia is appreciated. LYMPH NODES: Normal. VASCULAR: There is atherosclerotic calcification along the aorta. There is aneurysmal dilation of the infrarenal aorta to approximately 3.2 cm. PELVIC VISCERA: Status post hysterectomy. OSSEOUS STRUCTURES: Degenerative changes are noted in the spine. CT/CT abdomen pelvis w IV con IMPRESSION: 1. Subtle peripancreatic stranding concerning for mild pancreatitis in the proper clinical setting. 2. Hepatomegaly. 3. Infrarenal aortic aneurysm measuring 3.2 cm in diameter.
[2022-07-03 12:23] VITALS: BP 113/60; PULSE 77; RESP 16; TEMP 36.9; O2SAT 94; BMI 36.3
--- NOTE | 2022-07-03 12:39 | PC.NURSE ---
Pt brought down from oncology for eval of elevated Lipase (1722). PT reported abd pain. VSS. Provider at bedside.
--- NOTE | 2022-07-03 12:56 | ED.ABDPAIN ---
HPI - Abdominal Pain General Chief Complaint: Recheck/Abnormal Lab/Rx Stated Complaint: Sent from oncology Time Seen by Provider: 07/03/22 12:31 Source: patient Mode of arrival: ambulatory Limitations: no limitations History of Present Illness HPI narrative: 77-year-old female who was referred to the emergency department by her oncologist, Dr. Perdue for evaluation abdominal pain, elevated glucose and elevated lipase. The patient states that she has been having abdominal pain for approximately 3-4 days. She believes that the pain came on gradually but does not recall. She states that the pain is a constant, dull ache she points to her epigastric area when asked to localize the pain. She states the pain is 6/10 at its worse and at the time of evaluation the pain is 3/10. Patient states that this is her 1st episode of this type of pain. She denied fever, chills, nausea, vomiting, diarrhea. She states she has had a decreased appetite but she has been able to eat drink and she does not think that this changes or pain. The patient was seen in the emergency department yesterday for elevated blood sugars. Patient states that her provider discontinued all of her diabetes medications in February of 2022 since her glucoses were averaging 135 in her hemoglobin A1c was 5.9. Patient states that she wanted to come off her metformin since she thought it was giving her indigestion abdominal discomfort. The patient states that her glucose was trending up and her doctor restarted glipizide and this seemed give the patient abdominal discomfort therefore her doctor stop this medication and started her on Lantus 10 mg at night. The patient took her 1st dose of Lantus yesterday at 22:00 and then checked her blood glucose and it was 571 therefore she came the emergency department for evaluation. In reviewing yesterday's ED record, there is no mention of abdominal pain but the physician that saw the patient did address the patient's elevated glucose. The patient was discharged home advised to increase her Lantus from 10 units at night to 15 units at night The patient does have a history of metastatic lung cancer and has been treated with chemotherapeutic biologic agent, Keytruda (pembrolizmab) every 3 weeks, she has had 3 doses so far pain. She saw Dr. Perdue today for blood work for her next dose which would be tomorrow. Dr. Perdue reviewed the patient's ER visit and noted that the patient's lipase was elevated at 1700. She is concerned that the Keytruda may be causing an autoimmune pancreatitis since he is a known side effect of this drug therefore Dr. Perdue sent the patient to the emergency department for evaluation. MD elicited complaint: abdominal pain Pertinent past history: other (Metastatic lung cancer, treated Keytruda, elevated lipase) Onset (ago): day(s) (4) Pain Consistency: constant Location: epigastric Severity: moderate Pain scale (0-10): 6 Quality: aching and dull Radiation: none Migration to: no migration Exacerbating factors: nothing Relieving factors: nothing Associated symptoms: other (Decreased appetite) Related Data Home Medications Medication Instructions Recorded Confirmed cholecalciferol (vitamin D3) 50 50 mcg PO DAILY 10/26/20 05/23/22 mcg (2,000 unit) capsule verapamil 100 mg capsule 24hr 100 mg PO BEDTIME 10/26/20 05/23/[address],ext.release acetaminophen 500 mg tablet 500 mg PO BID 11/07/20 05/23/22 isosorbide mononitrate 30 mg 30 mg PO DAILY 10/02/21 05/23/22 tablet,extended release 24 hr apixaban 5 mg tablet (Eliquis) 1 tab PO Q12H 02/19/22 05/23/22 ferrous fumarate 325 mg (106 mg 325 mg PO .QOD 03/16/22 05/23/22 iron) tablet sertraline 100 mg tablet (Zoloft) 100 mg PO DAILY 04/27/22 05/23/22 pembrolizumab 25 mg/mL intravenous 200 mg IV Q3W 06/19/22 06/19/22 solution Previous Rx's Medication Instructions Recorded folic acid 1 mg tablet 1 mg PO DAILY 90 days #90 tabs 05/30/21 clotrimazole 2 % vaginal cream 1 appful vaginal BEDTIME PRN 10/31/21 VAGINAL ITCH #21 grams metoprolol succinate 50 mg 150 mg PO BEDTIME #270 tabs 12/13/21 tablet,extended release 24 hr blood sugar diagnostic ([employer]uch #100 ea 12/26/21 Ultra Test strips) blood-glucose meter (License BuddyTouch #1 ea 12/26/21 Ultra2 Meter) lancets 33 gauge (OneTouch Delica #100 ea 12/26/21 Lancets) omeprazole 40 mg capsule,delayed 40 mg PO DAILY 90 days #90 caps 01/03/22 release atorvastatin 80 mg tablet 80 mg PO BEDTIME #90 tabs 04/20/22 sennosides 8.6 mg-docusate sodium 1 tab-cap PO BEDTIME #30 tabs 05/23/22 50 mg tablet (Senna with Docusate Sodium) alprazolam 0.25 mg tablet 0.25 mg PO DAILY PRN Anxiety #20 06/04/22 tabs trazodone 50 mg tablet 50 mg PO BEDTIME #90 tabs 06/04/22 Magic Mouthwash 10 ml PO TID #240 mL 06/19/22 Diphen/Lido/Antacid 1:1:1 240 mL suspension loratadine 10 mg tablet (Allergy 10 mg PO DAILY #30 tabs 06/25/22 Relief (loratadine)) nystatin 100,000 unit/mL oral 1 ml buccal BID-TID #60 mL 06/26/22 suspension nystatin 100,000 unit/gram topical 1 appl topical TID #100 grams 06/29/22 powder Lantus Solostar U-100 Insulin 100 10 unit (0.1 mL) subcut QPM #15 mL 07/02/22 unit/mL (3 mL) subcutaneous pen (insulin glargine) pen needle, diabetic 29 gauge x #100 ea 07/02/22 12 (BD Ultra-Fine Original Pen Needle) Allergies Allergy/AdvReac Type Severity Reaction Status Date / Time sulfamethoxazole Allergy Severe Rash Verified 07/02/22 16:58 [From Bactrim] adhesive tape [ADHESIVE TAPE] Allergy Intermediate BLISTERS Verified 07/02/22 16:58 clonidine Allergy makes pt Verified 07/02/22 16:58 hulusinate adhesive AdvReac Severe BLISTERS Verified 07/02/22 16:58 gabapentin AdvReac Severe hallucinati Verified 07/02/22 16:58 on morphine AdvReac Severe hallucinati Verified 07/02/22 16:58 on glue AdvReac Severe BLISTERS Uncoded 07/02/22 16:58 Review of Systems Review of Systems Yes all other systems are reviewed and are negative PMFSH Past Medical History PMFSH Narrative: Social history: Patient states that she stop smoking 30 years prior but she has a greater than 30 pack-year history of smoking. She occasionally drinks alcohol. She states that she has been using marijuana edible product. Medical History AAA (abdominal aortic aneurysm) (~2008) Adenocarcinoma of left lung (~2021) Anemia Aortic stenosis Arthritis Atypical migraine AVM (arteriovenous malformation) of colon Barretts esophagus Bilateral pulmonary embolism (~10/2020) Bleeding hemorrhoids CAD (coronary artery disease) Contusion of rib on right side COPD (chronic obstructive pulmonary disease) Depression Diabetes mellitus with hyperglycemia Diabetes mellitus with hyperglycemia, without long-term current use of insulin Essential hypertension GERD without esophagitis GIB (gastrointestinal bleeding) History of blood transfusion Irritable bowel syndrome with both constipation and diarrhea Major depression in full remission Metformin adverse reaction Mixed dyslipidemia Nonrheumatic aortic (valve) stenosis Nonrheumatic mitral valve regurgitation Normocytic anemia Obesity On anticoagulant therapy (~10/2020) On beta [place] at home Pulmonary nodules Restless leg syndrome Transient cerebral ischemia Vitamin B12 deficiency Surgical History History of bilateral breast reduction surgery (~2010) History of colonoscopy (~2018) History of coronary artery bypass graft x 2 (~2017) History of esophagogastroduodenoscopy (EGD) (~2020) History of heart artery stent (~2007) History of hysterectomy History of lung biopsy (~2021) History of total right knee replacement (TKR) (~2015) S/P excision of lipoma (~2017) Family History Family History Father HTN (hypertension) Myocardial infarction Hyperlipidemia Abdominal aneurysm Mother HTN (hypertension) Myocardial infarction Hyperlipidemia Brother Alzheimer's disease Substance abuse Sister Rheumatoid arthritis Brother Rheumatoid arthritis Maternal Aunt Diabetes mellitus Lung cancer Maternal Uncle Diabetes mellitus Son No problems noted. Daughter No problems noted. Social History Social History Household Members: Spouse Housing: House Do you presently have visiting nurse or other home services: No Alcohol intake: current Alcohol intake frequency: holidays/special occasions only Patient Tobacco Use Status: Former Tobacco user Quit Date: 1986 Tobacco use type: Cigarette Cigarette Packs Per Day: 2 Years Smoked: 30 e-Cigarette/Vaping Use: Never Used Second Hand Smoke Exposure: No Use of substances other than those prescribed or required for medical reasons: Yes Substance Use Type: Marijuana Have you been hit, kicked, punched, or otherwise hurt by someone within the past year? 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/ [employer] Cognitive needs: No Hearing needs: No Vision needs: Yes Physical Exam ED Vital Signs: Vital Signs - 24 hr 07/03/22 12:23 07/03/22 14:25 Temperature 98.4 F 97.7 F Pulse Rate 77 81 Respiratory Rate 16 12 Blood Pressure 113/60 147/68 H Pulse Oximetry 94 97 Oxygen Delivery Method Room Air Room Air BMI result Body Mass Index 36.3 Const General: cooperative and no acute distress Orientation/consciousness: oriented to person and oriented to place Limitations: no limitations HENMT Head: Yes normal to inspection, Yes normocephalic and Yes atraumatic Ears: external ears normal General nose exam: Normal external nose present Face and sinus: Yes normal facial exam Mouth: Normal oral and palatal mucosa present Throat: Yes posterior oropharynx normal Eyes General: appearance normal, both eyes and all related structures Pupils: Equal, round and reactive pupils present Neck Neck: Yes normal visual inspection, Yes no lymphadenopathy, Yes trachea midline and Yes supple Chest Chest palpation & inspection: normal inspection of the chest and normal palpation of entire chest wall Resp Effort & Inspection: normal respiratory effort and able to speak in complete sentences Auscultation: clear to auscultation bilaterally Cardio Rate: regular rate Rhythm: regular rhythm Heart sounds: S1 normal heart sound present, S2 normal heart sound present and Murmur heart sound present systolic III/ and at the right sternal border GI Inspection: Yes normal to inspection Palpation (GI): Soft to palpation, Tenderness to palpation present (GI) in the epigastrum (Moderate) and in the RUQ (Moderate) and no guarding Auscultation: normal bowel sounds General: Yes no CVA tenderness Back/Spine/Pelvis Back: no CVA tenderness Skin General skin exam: no rashes or lesions noted Neuro General: oriented to person and oriented to place Cranial nerves: Yes CN's II-XII intact bilaterally and Yes Equal, round and reactive pupils present Cognition (Neuro): normal cognition Motor exam (neuro): 5/5 motor strength present throughout Extrem General: Yes normal to inspection Psych Appearance: grossly normal Speech and movement: Normal speech and movement present Affect: normal affect Attitude: cooperative Thought process: Normal thought process present Thought content: Normal thought content present Course Course Course Narrative: 77-year-old female who was referred to the emergency department by her oncologist, Dr. Perdue for evaluation of elevated glucose and elevated lipase (noted on blood work from the ED yesterday) with abdominal pain times 3-4 days. 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 3 weeks x3 does (due for her next dose tomorrow). Patient's vital signs were normal. Abdominal exam did reveal epigastric and right upper quadrant tenderness. I ordered a CBC, CMP, lipase, PT/INR, PTT, triglyceride, lactic acid, urinalysis. I will obtain a CT scan of the abdomen pelvis with IV contrast to evaluate the patient for possible pancreatitis. Patient was treated with Toradol 15 mg IV, Zofran 4 mg IV normal saline x1 L. 1631: Laboratory evaluation: Anemia with an H&H of 9.729-this is chronic. Glucose elevated 400. Lipase elevated 1290. Triglyceride level was normal at 152. Radiology evaluation: Radiology reading as follows: IMPRESSION: 1. Subtle peripancreatic stranding concerning for mild pancreatitis in the proper clinical setting. 2. Hepatomegaly. 3. Infrarenal aortic aneurysm measuring 3.2 cm in diameter. Dictated By:Gaurang Low MD Given the radiology reading and elevated lipase I will discuss admission with the covering hospitalist. 1700: I did discuss the patient's presentation with Dr. Llanos. Patient will be admitted to the hospitalist's service for further management. MDM - Abdominal Pain Medical Records Attestation: I reviewed the patient's medical records. Lab Data Attestation: I reviewed the patient's lab results. Result diagrams: 07/03/22 13:30 07/03/22 13:30 Labs: Lab Results 07/03/22 07/03/22 07/03/22 Range/Units 13:29 13:29 13:30 WBC (4.8-10.8) X10*3/uL RBC (4.20-5.50) X10*6/uL Hgb (12.0-16.0) g/dl Hct (37.0-47.0) % MCV (80.0-98.0) fL MCH (27.0-33.0) pg MCHC (31.0-35.0) g/dl RDW (11.0-16.0) % Plt Count (160-400) X10*3/uL MPV (9.4-12.3) fL Immature Gran % (Auto) (0.0-0.4) % Neut % (Auto) (45-73) % Lymph % (Auto) (20-40) % [place] % (Auto) (2-11) % Eos % (Auto) (0-4) % Baso % (Auto) (0-2) % Lymph # (Auto) (1.2-4.9) X10*3/uL [place] # (Auto) (0.1-1.2) X10*3/uL Eos # (Auto) (0.0-0.4) X10*3/uL Baso # (Auto) (0.0-0.2) X10*3/uL Abs Immat Gran (auto) (0.00-0.03) X10*3/uL Absolute Neuts (auto) (2.0-8.3) x10*3/uL Absolute Nucleated RBC (0.0-0.012) X10*3/uL Nucleated RBC % (auto) (0.0-0.2) /100WBC PT (10.0-13.1) SEC INR (0.9-1.1) APTT (26.0-36.4) SEC Sodium 136 (135-145) mmol/L Potassium 3.9 (3.3-5.1) mmol/L Chloride 102 (96-108) mmol/L Carbon Dioxide 22 (22-29) mmol/L Anion Gap 16 (12-20) BUN 17 H (9-16) mg/dL Creatinine 0.90 (0.5-1.4) mg/dL Estim Creat Clear Calc 52.0 Estimated GFR > 60 Random Glucose 400 H* (60-115) mg/dL Lactic Acid 2.0 (0.5-2.0) mmol/L Calcium 9.1 (8.4-10.2) mg/dL Total Bilirubin 0.3 (0.0-1.0) mg/dL AST 28 (5-31) U/L ALT 18 (0-31) U/L Alkaline Phosphatase 70 (39-117) U/L Total Protein 7.1 (6.5-8.0) g/dL Albumin 4.0 (3.5-5.0) g/dL Triglycerides 152 mg/dL Lipase 1290 H (8-78) U/L Urine Color Yellow Urine Appearance Clear Urine pH 5.5 (5.0-9.0) Ur Specific [place] >= 1.030 H (1.005-1.025) Urine Protein Trace (Neg-Trace) mg/dL Urine Glucose (UA) >=1000 H (Negative) mg/dL Urine Ketones Negative (Negative) mg/dL Urine Blood Negative (Negative) Urine Nitrite Negative (Negative) Ur Leukocyte Esterase Negative (Negative) Urine RBC 0-2 (0-2) /HPF Urine WBC 6-10 H (0-5) /HPF Ur Squamous Epith Cells 0-2 (0-2) /HPF Urine Bacteria None Seen (None Seen) Hyaline Casts 0-2 (0-2) /LPF COVID-19 (ARNAV) (Negative) COVID-19 Clin Com 07/03/22 07/03/22 07/03/22 Range/Units 13:30 13:30 13:30 WBC 6.8 (4.8-10.8) X10*3/uL RBC 3.17 L (4.20-5.50) X10*6/uL Hgb 9.7 L (12.0-16.0) g/dl Hct 29.0 L (37.0-47.0) % MCV 91.5 (80.0-98.0) fL MCH 30.6 (27.0-33.0) pg MCHC 33.4 (31.0-35.0) g/dl RDW 14.3 (11.0-16.0) % Plt Count 214 (160-400) X10*3/uL MPV 10.1 (9.4-12.3) fL Immature Gran % (Auto) 0.3 (0.0-0.4) % Neut % (Auto) 70.3 (45-73) % Lymph % (Auto) 19.3 L (20-40) % [place] % (Auto) 8.8 (2-11) % Eos % (Auto) 1.2 (0-4) % Baso % (Auto) 0.1 (0-2) % Lymph # (Auto) 1.3 (1.2-4.9) X10*3/uL [place] # (Auto) 0.6 (0.1-1.2) X10*3/uL Eos # (Auto) 0.1 (0.0-0.4) X10*3/uL Baso # (Auto) 0.0 (0.0-0.2) X10*3/uL Abs Immat Gran (auto) 0.02 (0.00-0.03) X10*3/uL Absolute Neuts (auto) 4.8 (2.0-8.3) x10*3/uL Absolute Nucleated RBC 0.000 (0.0-0.012) X10*3/uL Nucleated RBC % (auto) 0.0 (0.0-0.2) /100WBC PT 16.5 H (10.0-13.1) SEC INR 1.4 H (0.9-1.1) APTT 29.4 (26.0-36.4) SEC Sodium (135-145) mmol/L Potassium (3.3-5.1) mmol/L Chloride (96-108) mmol/L Carbon Dioxide (22-29) mmol/L Anion Gap (12-20) BUN (9-16) mg/dL Creatinine (0.5-1.4) mg/dL Estim Creat Clear Calc Estimated GFR Random Glucose (60-115) mg/dL Lactic Acid (0.5-2.0) mmol/L Calcium (8.4-10.2) mg/dL Total Bilirubin (0.0-1.0) mg/dL AST (5-31) U/L ALT (0-31) U/L Alkaline Phosphatase (39-117) U/L Total Protein (6.5-8.0) g/dL Albumin (3.5-5.0) g/dL Triglycerides mg/dL Lipase (8-78) U/L Urine Color Urine Appearance Urine pH (5.0-9.0) Ur Specific [place] (1.005-1.025) Urine Protein (Neg-Trace) mg/dL Urine Glucose (UA) (Negative) mg/dL Urine Ketones (Negative) mg/dL Urine Blood (Negative) Urine Nitrite (Negative) Ur Leukocyte Esterase (Negative) Urine RBC (0-2) /HPF Urine WBC (0-5) /HPF Ur Squamous Epith Cells (0-2) /HPF Urine Bacteria (None Seen) Hyaline Casts (0-2) /LPF COVID-19 (ARNAV) Negative (Negative) COVID-19 Clin Com See Note ECG Data Attestation: I personally reviewed and interpreted this ECG as follows: Discharge Plan Discharge Clinical Impression: Acute pancreatitis Patient Disposition: Admitted As Inpatient
[2022-07-03] MEDS: 0.9 % Sodium Chloride 1,000 ML 999 ML IV (13:35)
[2022-07-03] MEDS: Ketorolac Tromethamine 15 MG/ML VIAL IVPUSH (13:35)
[2022-07-03] MEDS: ondansetron HCL 4 MG/2 ML VIAL IVPUSH (13:35)
[2022-07-03 13:40] LABS: MANUAL DIFF FLAG NO
[2022-07-03 13:43] LABS: Basophils Percent Auto 0.1 % (0-2); Eosinophils Absolute Auto 0.1 X10*3/uL (0.0-0.4); Eosinophils Percent Auto 1.2 % (0-4); Hemoglobin 9.7 g/dl (12.0-16.0); Imm Gran Abs Auto 0.02 X10*3/uL (0.00-0.03); Imm Gran Pct Auto 0.3 % (0.0-0.4); Lymphocytes Absolute Auto 1.3 X10*3/uL (1.2-4.9); Lymphocytes Percent Auto 19.3 % (20-40); Mean Corpuscular HGB Conc 33.4 g/dl (31.0-35.0); Mean Corpuscular Hemoglobin 30.6 pg (27.0-33.0); Mean Corpuscular Volume 91.5 fL (80.0-98.0); Mean Platelet Volume 10.1 fL (9.4-12.3); Monocytes Absolute Auto 0.6 X10*3/uL (0.1-1.2); Monocytes Percent Auto 8.8 % (2-11); Neutrophils Absolute Auto 4.8 x10*3/uL (2.0-8.3); Neutrophils Percent Auto 70.3 % (45-73); Platelet Count 214 X10*3/uL (160-400); Red Blood Count 3.17 X10*6/uL (4.20-5.50); Red Cell Distribution Width 14.3 % (11.0-16.0); White Blood Count 6.8 X10*3/uL (4.8-10.8)
[2022-07-03 13:43] LABS: Appearance Urine Clear; Color Urine Yellow; Glucose Urine UA >=1000 mg/dL (Negative); Leukocyte Esterase Urine Negative (Negative); Nitrite Urine Negative (Negative); PH 5.5 (5.0-9.0); Specific Gravity - Urine >= 1.030 (1.005-1.025); UMIC TRIGGER UACC YES; Urine Blood Negative (Negative); Urine Ketones Negative (Negative); Urine Protein Trace mg/dL (Neg-Trace)
[2022-07-03 13:48] LABS: Bacteria Urine None Seen (None Seen); Hyaline Casts Urine 0-2 /LPF (0-2); RBC Urine 0-2 /HPF (0-2); Squamous Epithelial Cell Urine 0-2 /HPF (0-2); UACC Culture Trigger YES
[2022-07-03 13:48] LABS: INTERNATIONAL NORM RATIO 1.4 (0.9-1.1); Prothrombin Time 16.5 SEC (10.0-13.1)
[2022-07-03 13:50] LABS: Partial Thromboplastin Time 29.4 SEC (26.0-36.4)
[2022-07-03 14:09] LABS: COVID-19 Test Negative (Negative); IDNOW Serial# 16C4AD1C
[2022-07-03 14:19] LABS: Alanine Aminotransferase 18 U/L (0-31); Alkaline Phosphatase 70 U/L (39-117); Anion Gap 16 (12-20); Aspartate Amino Transferase 28 U/L (5-31); Bilirubin Total 0.3 mg/dL (0.0-1.0); Blood Urea Nitrogen 17 mg/dL (9-16); Calcium 9.1 mg/dL (8.4-10.2); Carbon Dioxide 22 mmol/L (22-29); Chloride 102 mmol/L (96-108); Estimated Glomerular Filt Rate > 60; Glucose Random 400 mg/dL (60-115); Potassium 3.9 mmol/L (3.3-5.1); Sodium 136 mmol/L (135-145); Total Protein 7.1 g/dL (6.5-8.0); Triglycerides 152 mg/dL
[2022-07-03 14:25] VITALS: BP 147/68; PULSE 81; RESP 12; TEMP 36.5; O2SAT 97
[2022-07-03 14:31] LABS: Lipase 1290 U/L (8-78)
[2022-07-03] MEDS: iohexoL 350 MG/ML 100 ML INFUS..BTL IV (15:05)
[2022-07-03] MEDS: ALPRAZolam 0.25 MG TABLET PO (16:54)
[2022-07-03] MEDS: Insulin Lispro 100 UNIT/ML 3 ML VIAL 8 UNIT SUBCUT (16:54)
[2022-07-03] MEDS: Acetaminophen 325 MG TABLET 975 MG PO (16:54)
[2022-07-03] MEDS: 0.9 % Sodium Chloride 1,000 ML 125 ML IVCONT (16:58)
--- NOTE | 2022-07-03 18:32 | PM.IMHP ---
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 She initially presented to the ED last night due to elevated glucose level of 571. Metformin and glyburide recently discontinued in favor of lantus due to elevated glucose levels that have steadily increased over the last 2 weeks, previously had been well controlled. Last A1c from 06/25 was 7.3%. Lipase in the ED last night was 1700. She saw Dr. 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 She has received 3 cycles so far, last being 06/13 and is due tomorrow. Repeat lipase in the ED today was 1200. CT scan abd/pelvis showed mild pancreatitis. She has been given IV NS in the ED and will be admitted for pancreatitis. Denies n/v, diarrhea. Does endorse chronic constipation. No sob, palpitations, chest pain. Review of Systems Review of Systems: General: No fevers, malaise, unintentional weight loss Cardiovascular: No chest pain, palpitations, or leg edema Respiratory: No shortness of breath, wheezing, cough GI: +epigastric pain, +constipation. No nausea, vomiting, diarrhea, melena, hematochezia : No dysuria, hematuria, increased urinary frequency Neuro: No headaches, weakness, paresthesias Skin: No rashes or lesions [facility] Medical History AAA (abdominal aortic aneurysm) (~2008) Adenocarcinoma of left lung (~2021) Anemia Aortic stenosis Arthritis Atypical migraine AVM (arteriovenous malformation) of colon Barretts esophagus Bilateral pulmonary embolism (~10/2020) Bleeding hemorrhoids CAD (coronary artery disease) Contusion of rib on right side COPD (chronic obstructive pulmonary disease) Depression Diabetes mellitus with hyperglycemia Diabetes mellitus with hyperglycemia, without long-term current use of insulin Essential hypertension GERD without esophagitis GIB (gastrointestinal bleeding) History of blood transfusion Irritable bowel syndrome with both constipation and diarrhea Major depression in full remission Metformin adverse reaction Mixed dyslipidemia Nonrheumatic aortic (valve) stenosis Nonrheumatic mitral valve regurgitation Normocytic anemia Obesity On anticoagulant therapy (~10/2020) On beta ashleigh at home Pulmonary nodules Restless leg syndrome Transient cerebral ischemia Vitamin B12 deficiency Family History Father HTN (hypertension) Myocardial infarction Hyperlipidemia Abdominal aneurysm Mother HTN (hypertension) Myocardial infarction Hyperlipidemia Brother Alzheimer's disease Substance abuse Sister Rheumatoid arthritis Brother Rheumatoid arthritis Maternal Aunt Diabetes mellitus Lung cancer Maternal Uncle Diabetes mellitus Son No problems noted. Daughter No problems noted. Surgical History History of bilateral breast reduction surgery (~2010) History of colonoscopy (~2018) History of coronary artery bypass graft x 2 (~2017) History of esophagogastroduodenoscopy (EGD) (~2020) History of heart artery stent (~2007) History of hysterectomy History of lung biopsy (~2021) History of total right knee replacement (TKR) (~2015) S/P excision of lipoma (~2017) Social History Household Members: Spouse Housing: House Do you presently have visiting nurse or other home services: No Alcohol intake: current Alcohol intake frequency: holidays/special occasions only Patient Tobacco Use Status: Former Tobacco user Quit Date: 1986 Tobacco use type: Cigarette Cigarette Packs Per Day: 2 Years Smoked: 30 e-Cigarette/Vaping Use: Never Used Second Hand Smoke Exposure: No Use of substances other than those prescribed or required for medical reasons: Yes Substance Use Type: Marijuana Have you been hit, kicked, punched, or otherwise hurt by someone within the past year? 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/ [employer] Cognitive needs: No Hearing needs: No Vision needs: Yes Meds Allergies Allergy/AdvReac Type Severity Reaction Status Date / Time sulfamethoxazole Allergy Severe Rash Verified 07/02/22 16:58 [From Bactrim] adhesive tape [ADHESIVE TAPE] Allergy Intermediate BLISTERS Verified 07/02/22 16:58 clonidine Allergy makes pt Verified 07/02/22 16:58 hulusinate adhesive AdvReac Severe BLISTERS Verified 07/02/22 16:58 gabapentin AdvReac Severe hallucinati Verified 07/02/22 16:58 on morphine AdvReac Severe hallucinati Verified 07/02/22 16:58 on glue AdvReac Severe BLISTERS Uncoded 07/02/22 16:58 Active Medications: Current Medications Acetaminophen (Acetaminophen 325 Mg Tablet) 650 mg PO Q6H PRN PRN Reason: Pain, Mild (Pain Scale 1-3) Docusate Sodium (Docusate Sodium 100 Mg Capsule) 100 mg PO BID CHRISTY Hydromorphone HCl (Hydromorphone Hcl 1 Mg/Ml Syringe) 0.5 mg IVPUSH Q4H PRN; Protocol PRN Reason: Pain, Severe (Pain Scale 7-10) Sodium Chloride (Ns) 1,000 mls @ 125 mls/hr IVCONT .Q8H [facility] Last Admin: 07/03/22 16:58 Dose: 125 mls/hr Lactated Ringer's (Lr) 1,000 mls @ 125 mls/hr IVCONT .Q8H CHRISTY Magnesium Hydroxide (Milk Of Magnesia 30 Ml Oral.Susp) 30 ml PO DAILY PRN PRN Reason: Constipation Ondansetron HCl (Ondansetron Hcl 4 Mg/2 Ml Vial) 4 mg IVPUSH Q8H PRN PRN Reason: Nausea and Vomiting Oxycodone HCl (Oxycodone Hcl Immed Release 5 Mg Tablet) 5 mg PO Q6H PRN PRN Reason: Pain, Moderate (Pain Scale 4-6 Pharmacy Consult (Consult Rx Perform Med Rec) 1 each MISCELLANE STAT STA Stop: 07/03/22 17:58 Sodium Chloride (0.9 % Sodium Chloride Flush 3 Ml Syringe) 3 ml IVFLUSH QSHIFT [facility] Home Medications Medication Instructions Recorded Confirmed Last Taken Type cholecalciferol (vitamin D3) 50 50 mcg PO DAILY 10/26/20 05/23/22 02/15/22 History mcg (2,000 unit) capsule verapamil 100 mg capsule 24hr 100 mg PO BEDTIME 10/26/20 05/23/22 09/24/[address],ext.release acetaminophen 500 mg tablet 500 mg PO BID 11/07/20 05/23/22 02/15/22 History isosorbide mononitrate 30 mg 30 mg PO DAILY 10/02/21 05/23/22 02/15/22 History tablet,extended release 24 hr apixaban 5 mg tablet (Eliquis) 1 tab PO Q12H 02/19/22 05/23/22 Unknown History ferrous fumarate 325 mg (106 mg 325 mg PO .QOD 03/16/22 05/23/22 Unknown History iron) tablet sertraline 100 mg tablet (Zoloft) 100 mg PO DAILY 04/27/22 05/23/22 Unknown History pembrolizumab 25 mg/mL intravenous 200 mg IV Q3W 06/19/22 06/19/22 Unknown History solution Physical Exam Vital Signs and Narrative: Vital Signs: Last Vital Signs Temp 97.7 F 07/03/22 14:25 Pulse 81 07/03/22 14:25 Resp 12 07/03/22 14:25 BP 147/68 H 07/03/22 14:25 Pulse Ox 97 07/03/22 14:25 O2 Del Method 07/03/22 14:25 BMI result Body Mass Index 36.3 Constitutional - Awake and Alert, No apparent distress Eyes - PERRLA, EOMI Cardiovascular - S1S2, RRR, No edema Respiratory - Normal lung expansion, Normal respiratory effort, No respiratory distress, CTA bilaterally Gastrointestinal - NT / ND; +BS; No rebound or guarding - No CVA tenderness Extremities - no calf tenderness bilaterally, no swelling Musculoskeletal - Normal inspection, normal ROM Skin - Warm/Dry Neurological - Alert & oriented x3, CN II-XIi in tact. No sensory or motor deficit Psychological - Appropriate affect Results Labs CBC and Chem 7: 07/03/22 13:30 07/03/22 13:30 Labs: Laboratory Results - last 24 hr 07/03/22 07/03/22 07/03/22 13:29 13:29 13:30 MCV MCH MCHC RDW Plt Count MPV Immature Gran % (Auto) Neut % (Auto) Lymph % (Auto) [place] % (Auto) Eos % (Auto) Baso % (Auto) Lymph # (Auto) [place] # (Auto) Eos # (Auto) Baso # (Auto) Abs Immat Gran (auto) Absolute Neuts (auto) Absolute Nucleated RBC Nucleated RBC % (auto) PT INR APTT Anion Gap 16 Estim Creat Clear Calc 52.0 Estimated GFR > 60 Random Glucose 400 H* Lactic Acid 2.0 Calcium 9.1 Total Bilirubin 0.3 AST 28 ALT 18 Alkaline Phosphatase 70 Total Protein 7.1 Albumin 4.0 Triglycerides 152 Lipase 1290 H Urine Color Yellow Urine Appearance Clear Urine pH 5.5 Ur Specific [place] >= 1.030 H Urine Protein Trace Urine Glucose (UA) >=1000 H Urine Ketones Negative Urine Blood Negative Urine Nitrite Negative Ur Leukocyte Esterase Negative Urine RBC 0-2 Urine WBC 6-10 H Ur Squamous Epith Cells 0-2 Urine Bacteria None Seen Hyaline Casts 0-2 COVID-19 (ARNAV) COVID-19 Clin Com 07/03/22 07/03/22 07/03/22 13:30 13:30 13:30 MCV 91.5 MCH 30.6 MCHC 33.4 RDW 14.3 Plt Count 214 MPV 10.1 Immature Gran % (Auto) 0.3 Neut % (Auto) 70.3 Lymph % (Auto) 19.3 L [place] % (Auto) 8.8 Eos % (Auto) 1.2 Baso % (Auto) 0.1 Lymph # (Auto) 1.3 [place] # (Auto) 0.6 Eos # (Auto) 0.1 Baso # (Auto) 0.0 Abs Immat Gran (auto) 0.02 Absolute Neuts (auto) 4.8 Absolute Nucleated RBC 0.000 Nucleated RBC % (auto) 0.0 PT 16.5 H INR 1.4 H APTT 29.4 Anion Gap Estim Creat Clear Calc Estimated GFR Random Glucose Lactic Acid Calcium Total Bilirubin AST ALT Alkaline Phosphatase Total Protein Albumin Triglycerides Lipase Urine Color Urine Appearance Urine pH Ur Specific [place] Urine Protein Urine Glucose (UA) Urine Ketones Urine Blood Urine Nitrite Ur Leukocyte Esterase Urine RBC Urine WBC Ur Squamous Epith Cells Urine Bacteria Hyaline Casts COVID-19 (ARNAV) Negative COVID-19 Clin Com See Note Imaging Radiologist's Impressions: Impressions Abdomen/Pelvis CT 07/03/22 15:10 IMPRESSION: 1. Subtle peripancreatic stranding concerning for mild pancreatitis in the proper clinical setting. 2. Hepatomegaly. 3. Infrarenal aortic aneurysm measuring 3.2 cm in diameter. 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 1-Acute pancreatitis- likely autoimmune secondary to Keytruda -CT abd/pelvis with mild pancreatitis -Lipase 1700 improved to 1200 today. Repeat lipase am -Continue IVF -Clear liquid diet. Advance as tolerated -Pain control via pain scale -Ondansetron prn nausea/vomiting -Hold Keytruda. Follow up with oncology outpt 2- Uncontrolled insulin dependent type 2 diabetes -Hyperglycemia last 2 weeks likely related to pancreatitis. No recent steroid use. -Continue lantus at 10 units nightly -Humalog SSI -POC glucose 3-Hx bilateral pulmonary embolism -Continue apixiban. Denies active bleeding 4-HTN- reasonably controlled -Continue home meds 5-CAD s/p CABG x2 last year/HLD- no anginal chest pain -Continue metorpolol/atorvastatin/isosorbide -Follow outpt with Dr. Hernandez 6-Depression/anxiety -Continue sertraline, trazadone, and alprazolam 7-Chronic constipation- severely exacerbated by narcotics -Continue home senna. Add docusate. Milk of mag prn 8-Chronic normocytic anemia- stable -Continue ferrous sulfate DVT prophylaxis- continue apixiban Full code Quality Stroke Does the patient have a stroke diagnosis?: No VTE Prior VTE?: No VTE Risk Level:: Medical - moderate - high VTE Device Contraindication: Treatment Not Indicated VTE Drug Contraindication: N/A - Med Ordered
--- NOTE | 2022-07-03 18:59 | PM.EVENT ---
Event Note Date of Service: 07/03/22 Event Note: This patient is seen and examined with APC. Patient came to the hospital because of having abdominal pain since yesterday was in ED anemia earlier but was discharged home and since keep having abdominal pain and nauseated decided to come to the hospital. She still has abdominal pain 6-10 mostly in epigastric area nonradiating Patient was on Keytruda for lung cancer-since then he started having abdominal pain. Unable to tolerate diet yet. dm uncontrolled Lab imaging: h/h 9.05/11 BMP seems fine Fingersticks are running 400-500 range. Physical exam and assessment and plan coordinated in APCs note, Agree with the plan in addition: Possible acute pancreatitis: High hydration IV, pain med management Clear liquid. Possible related to Keytruda. Uncontrolled diabetes: Continue fingerstick with coverage adjusted,lantus medreconcillation pending
--- NOTE | 2022-07-03 19:08 | PHA.MEDREC ---
MED REC COMPLETE, NO ISSUES Pharmacy Consult ? Medication Reconciliation Pharmacy has completed the medication reconciliation.
[2022-07-03] MEDS: Lactated Ringers 1,000 ML 125 ML IVCONT (19:48)
[2022-07-03] MEDS: traZODone HCL 50 MG TABLET PO (22:29)
[2022-07-03] MEDS: Atorvastatin Calcium 80 MG TABLET PO (22:29)
[2022-07-03] MEDS: Metoprolol Succinate ER 50 MG TAB.ER.24H 150 MG PO (22:30)
[2022-07-03] MEDS: Apixaban 5 MG TABLET PO (22:30)
[2022-07-03] MEDS: Docusate Sodium 100 MG CAPSULE PO (22:30)
[2022-07-03] MEDS: Nystatin Oral Susp 500,000 UNIT/5 ML ORAL.SUSP 100000 UNIT BUCCAL (22:31)
[2022-07-03 23:03] LABS: Glucose, Whole Blood 159 mg/dL (60-115)
[2022-07-04 00:35] VITALS: BP 113/40; PULSE 85; RESP 11; TEMP 36.4; O2SAT 93
[2022-07-04 00:55] LABS: Glucose, Whole Blood 178 mg/dL (60-115)
--- NOTE | 2022-07-04 03:17 | PC.NURSE ---
PT GIVEN BEDSIDE COMMODE.PT STATES SHE HAS INCONTINENCE AND NEEDS TO BE ABLE TO GET TO THE BR QUICKLY. PT REMINDED TO RING FOR ASSISTANCE SINCE SHE IS CONNECTED TO HEART MONITOR
[2022-07-04 05:11] LABS: Lipase 1000 U/L (8-78)
[2022-07-04 06:08] VITALS: BP 130/60; PULSE 97; RESP 14; TEMP 37.2; O2SAT 91
[2022-07-04] MEDS: Omeprazole 40 MG CAPSULE.DR PO (06:23)
[2022-07-04 07:05] VITALS: BP 111/40; PULSE 79; RESP 17
[2022-07-04 07:10] LABS: Glucose, Whole Blood 275 mg/dL (60-115)
[2022-07-04] MEDS: Lactated Ringers 1,000 ML 125 ML IVCONT (07:23)
[2022-07-04] MEDS: Insulin Lispro 100 UNIT/ML 3 ML VIAL SUBCUT ×2 (07:29→13:24)
[2022-07-04 07:55] VITALS: BP 130/60
[2022-07-04] MEDS: Cholecalciferol (Vitamin D3) 25 MCG TABLET 50 MCG PO (08:01)
[2022-07-04] MEDS: Sertraline HCL 100 MG TABLET PO (08:02)
[2022-07-04] MEDS: Folic Acid 1 MG TABLET PO (08:02)
[2022-07-04] MEDS: Loratadine 10 MG TABLET PO (08:02)
[2022-07-04] MEDS: lisinopriL 2.5 MG TABLET PO (08:02)
[2022-07-04] MEDS: Isosorbide Mononitrate 30 MG TAB.ER.24H PO (08:02)
[2022-07-04] MEDS: Apixaban 5 MG TABLET PO (08:02)
[2022-07-04] MEDS: Docusate Sodium 100 MG CAPSULE PO (08:02)
[2022-07-04] MEDS: Nystatin Oral Susp 500,000 UNIT/5 ML ORAL.SUSP 100000 UNIT BUCCAL (08:08)
--- NOTE | 2022-07-04 08:15 | PC.NURSE ---
patien walk to bathroom to get wash and get change . clean bed /room for patient .
--- NOTE | 2022-07-04 10:21 | PC.NURSE ---
Dr. Llanos instructed to stop LR and advance to diabetic diet.
--- NOTE | 2022-07-04 11:44 | PM.DS ---
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 She initially presented to the ED last night due to elevated glucose level of 571. Metformin and glyburide recently discontinued in favor of lantus due to elevated glucose levels that have steadily increased over the last 2 weeks, previously had been well controlled. Last A1c from 06/25 was 7.3%. Lipase in the ED last night was 1700. She saw Dr. 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 She has received 3 cycles so far, last being 06/13 and is due tomorrow. Repeat lipase in the ED today was 1200. CT scan abd/pelvis showed mild pancreatitis. She has been given IV NS in the ED and will be admitted for pancreatitis. Denies n/v, diarrhea. Does endorse chronic constipation. No sob, palpitations, chest pain. hospital course: patient treated for pancreatitis possible related to chemo medication as above-with bowel rest, IV hydration, pain medication and antiemetics: Seems to be improved to baseline, tolerated diet. Diabetes type 2 with hyperglycemia: Fingersticks are improving, will adjust Lantus to 15 units, patient was advised in detail to monitor fingersticks at home. Follow-up with PCP and Oncology for above. Further use of chemo as per Oncology out patiently. Hepatomegaly: asymptomatic,: liver function fine ,moniter lft outpatient and further management outpatient with pcp. plan: Encouraged for hydration Advise monitor fingersticks closely at home. Follow-up with PCP and Oncology for above. Above management discussed with the patient in detail length she understand and in agreement with the above plan, time spent 50 minutes and 50% time spent on counseling. Significant findings: As above. Procedures performed: None. Treatment and response: As above. Complications: None. Time Spent with Patient Time attestation: Total time spent providing and/or coordinating discharge services: Discharge coordination time: Greater than 30 minutes Quality: Safe Use of Opioids Does Pt have an Active Cancer Diagnosis on the Problem List?: Yes Opioid Measure Date for [facility] Report: 06/04/22 Opioid Measure Time for [facility] Report: 12:22 Quality: Stroke Does the patient have a stroke diagnosis?: No Physical Exam Vital Signs: Vital Signs: Last Vital Signs Temp 98.9 F 07/04/22 06:08 Pulse 79 07/04/22 07:05 Resp 17 07/04/22 07:05 BP 130/60 07/04/22 07:55 Pulse Ox 91 L 07/04/22 06:08 O2 Del Method 07/04/22 06:08 BMI result Body Mass Index 36.3 Appearance: Alert.? Oriented X3.? not in distress.? Eyes: Pupils equal, round and reactive to light.? Sclera nonicteric.? ENT: Pharynx normal.? Moist mucous membranes. cvs: rrr, [id number] . res: clear to auscultation ,no rhonchii or wheezing abd: no rebound or guarding ,nt, bs present. ext pulses present , no cyanosis . neuro: axo3 , nonfocal. DS: Data Data Completed and Pending Completed studies during hospitalization [Text1]: Procedures Excision of Esophagus, Via Natural or Artificial Opening Endoscopic, Diagnostic (12/08/20) Excision of Jejunum, Via Natural or Artificial Opening Endoscopic, Diagnostic (12/08/20) Excision of Stomach, Pylorus, Via Natural or Artificial Opening Endoscopic, Diagnostic (12/08/20) Inspection of Upper Intestinal Tract, Via Natural or Artificial Opening Endoscopic (09/02/21) Transfusion of Nonautologous Red Blood Cells into Peripheral Vein, Percutaneous Approach (09/02/21) Labs on day of discharge: Laboratory Results - last 24 hr 07/03/22 07/03/22 07/03/22 13:29 13:29 13:30 WBC RBC Hgb Hct MCV MCH MCHC RDW Plt Count MPV Immature Gran % (Auto) Neut % (Auto) Lymph % (Auto) [place] % (Auto) Eos % (Auto) Baso % (Auto) Lymph # (Auto) [place] # (Auto) Eos # (Auto) Baso # (Auto) Abs Immat Gran (auto) Absolute Neuts (auto) Absolute Nucleated RBC Nucleated RBC % (auto) PT INR APTT Sodium 136 Potassium 3.9 Chloride 102 Carbon Dioxide 22 Anion Gap 16 BUN 17 H Creatinine 0.90 Estim Creat Clear Calc 52.0 Estimated GFR > 60 POC Glucose Random Glucose 400 H* Lactic Acid 2.0 Calcium 9.1 Total Bilirubin 0.3 AST 28 ALT 18 Alkaline Phosphatase 70 Total Protein 7.1 Albumin 4.0 Triglycerides 152 Lipase 1290 H Urine Color Yellow Urine Appearance Clear Urine pH 5.5 Ur Specific [place] >= 1.030 H Urine Protein Trace Urine Glucose (UA) >=1000 H Urine Ketones Negative Urine Blood Negative Urine Nitrite Negative Ur Leukocyte Esterase Negative Urine RBC 0-2 Urine WBC 6-10 H Ur Squamous Epith Cells 0-2 Urine Bacteria None Seen Hyaline Casts 0-2 COVID-19 (ARNAV) COVID-19 Picocent 07/03/22 07/03/22 07/03/22 13:30 13:30 13:30 WBC 6.8 RBC 3.17 L Hgb 9.7 L Hct 29.0 L MCV 91.5 MCH 30.6 MCHC 33.4 RDW 14.3 Plt Count 214 MPV 10.1 Immature Gran % (Auto) 0.3 Neut % (Auto) 70.3 Lymph % (Auto) 19.3 L [place] % (Auto) 8.8 Eos % (Auto) 1.2 Baso % (Auto) 0.1 Lymph # (Auto) 1.3 [place] # (Auto) 0.6 Eos # (Auto) 0.1 Baso # (Auto) 0.0 Abs Immat Gran (auto) 0.02 Absolute Neuts (auto) 4.8 Absolute Nucleated RBC 0.000 Nucleated RBC % (auto) 0.0 PT 16.5 H INR 1.4 H APTT 29.4 Sodium Potassium Chloride Carbon Dioxide Anion Gap BUN Creatinine Estim Creat Clear Calc Estimated GFR POC Glucose Random Glucose Lactic Acid Calcium Total Bilirubin AST ALT Alkaline Phosphatase Total Protein Albumin Triglycerides Lipase Urine Color Urine Appearance Urine pH Ur Specific [place] Urine Protein Urine Glucose (UA) Urine Ketones Urine Blood Urine Nitrite Ur Leukocyte Esterase Urine RBC Urine WBC Ur Squamous Epith Cells Urine Bacteria Hyaline Casts COVID-19 (ARNAV) Negative COVID-19 Clin Com See Note 07/03/22 07/04/22 07/04/22 22:59 00:51 04:48 WBC RBC Hgb Hct MCV MCH MCHC RDW Plt Count MPV Immature Gran % (Auto) Neut % (Auto) Lymph % (Auto) [place] % (Auto) Eos % (Auto) Baso % (Auto) Lymph # (Auto) [place] # (Auto) Eos # (Auto) Baso # (Auto) Abs Immat Gran (auto) Absolute Neuts (auto) Absolute Nucleated RBC Nucleated RBC % (auto) PT INR APTT Sodium Potassium Chloride Carbon Dioxide Anion Gap BUN Creatinine Estim Creat Clear Calc Estimated GFR POC Glucose 159 H 178 H Random Glucose Lactic Acid Calcium Total Bilirubin AST ALT Alkaline Phosphatase Total Protein Albumin Triglycerides Lipase 1000 H Urine Color Urine Appearance Urine pH Ur Specific [place] Urine Protein Urine Glucose (UA) Urine Ketones Urine Blood Urine Nitrite Ur Leukocyte Esterase Urine RBC Urine WBC Ur Squamous Epith Cells Urine Bacteria Hyaline Casts COVID-19 (ARNAV) COVID-19 Clin Com 07/04/22 07:03 WBC RBC Hgb Hct MCV MCH MCHC RDW Plt Count MPV Immature Gran % (Auto) Neut % (Auto) Lymph % (Auto) [place] % (Auto) Eos % (Auto) Baso % (Auto) Lymph # (Auto) [place] # (Auto) Eos # (Auto) Baso # (Auto) Abs Immat Gran (auto) Absolute Neuts (auto) Absolute Nucleated RBC Nucleated RBC % (auto) PT INR APTT Sodium Potassium Chloride Carbon Dioxide Anion Gap BUN Creatinine Estim Creat Clear Calc Estimated GFR POC Glucose 275 H Random Glucose Lactic Acid Calcium Total Bilirubin AST ALT Alkaline Phosphatase Total Protein Albumin Triglycerides Lipase Urine Color Urine Appearance Urine pH Ur Specific [place] Urine Protein Urine Glucose (UA) Urine Ketones Urine Blood Urine Nitrite Ur Leukocyte Esterase Urine RBC Urine WBC Ur Squamous Epith Cells Urine Bacteria Hyaline Casts COVID-19 (ARNAV) COVID-19 Clin Com Additional Comments Additional comments: CT/CT abdomen pelvis w IV con IMPRESSION: 1.? Subtle peripancreatic stranding concerning for mild pancreatitis in the proper clinical setting. 2.? Hepatomegaly.? 3.? Infrarenal aortic aneurysm measuring 3.2 cm in diameter. Discharge Plan Discharge Patient Disposition: Home, Self-Care Discharge Diagnosis: Acute pancreatitis possibly related to pembrolizumab, uncontrolled diabetes. Referrals: Sary Waite MD [Primary Care Provider] - 1 Week Discharge Medications: Continued folic acid 1 mg tablet 1 mg PO DAILY 90 Days Qty: 90 2RF clotrimazole 2 % cream 1 appful vaginal BEDTIME PRN (Reason: VAGINAL ITCH) Qty: 21 1RF metoprolol succinate 50 mg tablet extended release 24 hr 150 mg PO BEDTIME Qty: 270 3RF (DME) blood-glucose meter [OneTouch Ultra2 Meter] Misc See Rx Instructions .Route Qty: 1 0RF Rx Instructions: As directed to test blood sugar once a day (DME) OneTouch Ultra Test Strip See Rx Instructions .Route Qty: 100 3RF Rx Instructions: test blood sugar once daily (DME) lancets [OneTouch Delica Lancets] 33 gauge misc See Rx Instructions .Route Qty: 100 3RF Rx Instructions: test blood sugar once a day omeprazole 40 mg capsule,delayed release(DR/EC) 40 mg PO DAILY 90 Days Qty: 90 2RF atorvastatin 80 mg tablet 80 mg PO BEDTIME Qty: 90 0RF alprazolam 0.25 mg tablet 0.25 mg PO DAILY PRN (Reason: Anxiety) Qty: 20 0RF trazodone 50 mg tablet 50 mg PO BEDTIME Qty: 90 0RF Eliquis 5 mg tablet 1 tab PO Q12H sertraline [Zoloft] 100 mg tablet 100 mg PO DAILY sennosides-docusate sodium [Senna with Docusate Sodium] 8.6-50 mg Tablet 1 tab-cap PO BEDTIME Qty: 30 2RF nystatin 100,000 unit/mL Suspension 1 ml BUCCAL BID-TID Qty: 60 0RF Rx Instructions: administer 1/2 of dose in each side of the mouth nystatin 100,000 unit/gram Powder 1 appl TOPICAL TID Qty: 100 0RF lisinopril 2.5 mg Tablet 2.5 mg PO DAILY verapamil 100 mg capsule, [address] 100 mg PO BEDTIME cholecalciferol (vitamin D3) 50 mcg (2,000 unit) capsule 50 mcg PO DAILY ferrous fumarate 325 mg (106 mg iron) tablet 325 mg PO .QOD loratadine [Allergy Relief (loratadine)] 10 mg tablet 10 mg PO DAILY Qty: 30 0RF (DME) pen needle, diabetic [BD Ultra-Fine Orig Pen Needle] 29 gauge x 1/2 needle See Rx Instructions .Route Qty: 100 0RF Rx Instructions: As directed pembrolizumab 25 mg/mL solution 200 mg IV Q3W Rx Instructions: administer over 30 mins acetaminophen 500 mg tablet 500 mg PO BID Rx Instructions: Patient takes scheduled BID (in pill box) isosorbide mononitrate 30 mg tablet extended release 24 hr 30 mg PO DAILY Changed insulin glargine [Lantus Solostar U-100 Insulin] 100 unit/mL (3 mL) insulin pen 15 unit subcut QPM Qty: 15 1RF Discharge Orders: Discharge Order (Routine); Ordered 07/04/22 Ordered By: Lyndsey Llanos Diet: Advance to usual diet Activity on Discharge: As tolerated Stand Alone Forms: Patient Portal Discharge page Care Plan Goals: patient treated for pancreatitis possible related to chemo medication as above-with bowel rest, IV hydration, pain medication and antiemetics: Seems to be improved to baseline, tolerated diet. Diabetes with hyperglycemia: Fingersticks are improving, will adjust Lantus to 15 units, patient was advised in detail to monitor fingersticks at home. Follow-up with PCP and Oncology for above. Further use of chemo as per Oncology out patiently. Health Concerns: If abdominal pain or persistent nausea vomiting or fever or any new complaints please go to nearest emergency room for further evaluation. Plan of Treatment: Encouraged for hydration Advise monitor fingersticks closely at home. Follow-up with PCP and Oncology for above. Hepatomegaly: asymptomatic,: liver function fine ,moniter lft outpatient and further management outpatient with pcp. Assessment: As above. Patient Instructions: Pancreatitis (DC), Type 2 Diabetes in the Older Adult (DC)
--- NOTE | 2022-07-04 11:55 | MHC.CM.PN ---
Met with patient in regards to discharge planning. Patient lives with her , ambulates independently and had no services prior to coming to the hospital. No services anticipated to be needed because patient is not homebound. PCP verified. Copy of HCP verified to be on file. Patient received 2 Covid vaccines and 2 boosters. Obs notice explained and signed. Patient's will transport patient home when medically stable. Continue to monitor for d/c needs.
[2022-07-04 13:22] LABS: Glucose, Whole Blood 184 mg/dL (60-115)
--- NOTE | 2022-07-04 15:27 | PC.NURSE ---
Dr. Llanos gave order to discharge patient.
== END 2022-07-04 15:22 | disposition home or self-care (01) ==
LOC: HO.ED 17:01 → HO.EDOVER 18:36
PROVIDERS: Admitting Provider Physician Assistant; Emergency Provider Emergency Medicine Emergency Medical Services; PCP Internal Medicine; Visit Provider Internal Medicine
DX: K85.90 Acute pancreatitis without necrosis or infection, unspecified (principal); E11.65 Type 2 diabetes mellitus with hyperglycemia; I10 Essential (primary) hypertension; I25.10 Atherosclerotic heart disease of native coronary artery without angina pectoris; D64.9 Anemia, unspecified; R10.9 Unspecified abdominal pain; R79.89 Other specified abnormal findings of blood chemistry; F33.1 Major depressive disorder, recurrent, moderate; Z20.822 Contact with and (suspected) exposure to COVID-19; Z79.4 Long term (current) use of insulin; Z79.899 Other long term (current) drug therapy; Z87.891 Personal history of nicotine dependence
CPT/HCPCS: 36415; 74177; 80053; 81001; 82947; 83605; 83690; 84478; 85025; 85610; 85730; 87086; 87635; 96365; 96366; 96375; 96376; 99218; 99284; J1885; J2405; Q9967

== ENCOUNTER 2022-07-10 11:22 | Inpatient (IN) | payer MEDICARE, SELFPAY ==
--- NOTE | ~2022-07-10 | CT_ITS ---
EXAMINATION: CT ABDOMEN AND PELVIS WITH CONTRAST CLINICAL INFORMATION: Worsening epigastric pain. Diagnosis of pancreatitis on 07/03/2022 COMPARISON: None TECHNIQUE: Multidetector volumetric images were obtained from the superior aspect of the liver through the pubic symphysis following administration 85 mL of Omnipaque 350 intravenous contrast. Sagittal and coronal reformatted images were obtained on the technologist's workstation. Oral contrast: No This CT examination was performed using dose optimization techniques as appropriate, variously including the following: *Automated exposure control *Adjustment of mA and/or kV according to patient size (this includes techniques or standardized protocols for targeted exams where dose is matched to indication/reason for exam; i.e. extremities or head) *Use of iterative reconstruction technique DLP: 803 mGy-cm FINDINGS: LUNG BASES: The visualized lung bases are unremarkable. Calcified granuloma present in the right middle lobe. Bibasilar atelectasis. LIVER, GALLBLADDER, AND BILIARY TREE: The liver is is again noted to be enlarged 2.4 cm in greatest length and most likely demonstrates decreased attenuation suggesting hepatic steatosis. No focal hepatic lesion or biliary ductal dilatation is present. The gallbladder is unremarkable with no evidence of radiopaque gallstones, gallbladder wall thickening, or obvious pericholecystic inflammatory changes. PANCREAS: Previously seen subtle pancreatic stranding is without significant change and is no evidence to suggest progressive pancreatitis SPLEEN: Unremarkable. ADRENAL GLANDS: Unremarkable. KIDNEYS AND URETERS: The kidneys are normal in size, shape, and attenuation. No hydronephrosis, hydroureter, or calculi seen. No perinephric stranding. BLADDER: Unremarkable. GASTROINTESTINAL TRACT: The small and large bowel are unremarkable. The appendix is unremarkable. ABDOMINAL WALL: No significant hernia is appreciated. LYMPH NODES: No retroperitoneal lymphadenopathy. Some small peripancreatic and periportal lymph nodes are seen. VASCULAR: Again noted are atherosclerotic changes in the aorta and iliofemoral vessels with 3.5 cm infrarenal AAA. PELVIC VISCERA: Unremarkable. OSSEOUS STRUCTURES: Unremarkable. CT/CT abdomen pelvis w IV con IMPRESSION: There is been no progression of this subtle peripancreatic inflammatory change seen previously and there is no evidence of any worsening pancreatitis. Incidental findings described above including enlarged probable fatty liver and infrarenal AAA Fleischner guidelines were followed.
--- NOTE | 2022-07-10 11:42 | ECG_ITS ---
Test Reason : genelize pain, nausia Blood Pressure : / mmHG Vent. Rate : 078 BPM Atrial Rate : 078 BPM P-R Int : 152 ms QRS Dur : 086 ms QT Int : 418 ms P-R-T Axes : 056 -19 021 degrees QTc Int : 476 ms Normal sinus rhythm T wave abnormality, consider anterior ischemia Prolonged QT Abnormal ECG When compared with ECG of 02-JUL-2022 23:00, Criteria for Inferior infarct are no longer Present T wave inversion now evident in Anterior leads Referred By: Jaky Sandoval Electronically Signed By:BLANCA HARDWICK
--- NOTE | 2022-07-10 11:47 | ED_ITS ---
HPI - Abdominal Pain General Chief Complaint: Abdominal Pain Stated Complaint: abd and back pain Time Seen by Provider: 07/10/22 11:28 Source: patient and family Mode of arrival: ambulatory Limitations: no limitations History of Present Illness HPI narrative: Patient comes to the emergency room from Dr. Perdue's of this. Patient had a follow-up appointment today. Patient told Dr. Perdue that she has been feeling very weak, has had increased abdominal pain in the epigastric area. Patient was discharged from the hospital on July 04 for pancreatitis and hyperglycemia. Patient states that the pain has gradually been getting worse. Patient is very nauseous, denies vomiting or diarrhea. No fevers or chills. Related Data Home Medications Medication Instructions Recorded Confirmed cholecalciferol (vitamin D3) 50 50 mcg PO DAILY 10/26/20 07/10/22 mcg (2,000 unit) capsule verapamil 100 mg capsule 24hr 100 mg PO BEDTIME 10/26/20 07/10/[address],ext.release acetaminophen 500 mg tablet 500 mg PO BID 11/07/20 07/10/22 isosorbide mononitrate 30 mg 30 mg PO DAILY 10/02/21 07/10/22 tablet,extended release 24 hr apixaban 5 mg tablet (Eliquis) 1 tab PO Q12H 02/19/22 07/10/22 ferrous fumarate 325 mg (106 mg 325 mg PO Q2D 03/16/22 07/10/22 iron) tablet sertraline 100 mg tablet (Zoloft) 100 mg PO DAILY 04/27/22 07/10/22 lisinopril 2.5 mg tablet 2.5 mg PO DAILY 07/03/22 07/10/22 nystatin 100,000 unit/mL oral 1 ml buccal BID 07/10/22 07/10/22 suspension Previous Rx's Medication Instructions Recorded folic acid 1 mg tablet 1 mg PO DAILY 90 days #90 tabs 05/30/21 clotrimazole 2 % vaginal cream 1 appful vaginal BEDTIME PRN 10/31/21 VAGINAL ITCH #21 grams metoprolol succinate 50 mg 150 mg PO BEDTIME #270 tabs 12/13/21 tablet,extended release 24 hr blood sugar diagnostic (OneTouch #100 ea 12/26/21 Ultra Test strips) blood-glucose meter (OneTouch #1 ea 12/26/21 Ultra2 Meter) lancets 33 gauge (OneTouch [place] #100 ea 12/26/21 Lancets) omeprazole 40 mg capsule,delayed 40 mg PO DAILY 90 days #90 caps 01/03/22 release atorvastatin 80 mg tablet 80 mg PO BEDTIME #90 tabs 04/20/22 sennosides 8.6 mg-docusate sodium 1 tab-cap PO BEDTIME #30 tabs 05/23/22 50 mg tablet (Senna with Docusate Sodium) alprazolam 0.25 mg tablet 0.25 mg PO DAILY PRN Anxiety #20 06/04/22 tabs trazodone 50 mg tablet 50 mg PO BEDTIME #90 tabs 06/04/22 loratadine 10 mg tablet (Allergy 10 mg PO DAILY #30 tabs 06/25/22 Relief (loratadine)) nystatin 100,000 unit/gram topical 1 appl topical TID #100 grams 06/29/22 powder pen needle, diabetic 29 gauge x #100 ea 07/02/222 (BD Ultra-Fine Original Pen Needle) Lantus Solostar U-100 Insulin 100 15 unit (0.15 mL) subcut QPM #15 mL 07/04/22 unit/mL (3 mL) subcutaneous pen (insulin glargine) Allergies Allergy/AdvReac Type Severity Reaction Status Date / Time sulfamethoxazole Allergy Severe Rash Verified 07/02/22 16:58 [From Bactrim] adhesive tape [ADHESIVE TAPE] Allergy Intermediate BLISTERS Verified 07/02/22 16:58 clonidine Allergy makes pt Verified 07/02/22 16:58 hulusinate adhesive AdvReac Severe BLISTERS Verified 07/02/22 16:58 gabapentin AdvReac Severe hallucinati Verified 07/02/22 16:58 on morphine AdvReac Severe hallucinati Verified 07/02/22 16:58 on glue AdvReac Severe BLISTERS Uncoded 07/02/22 16:58 Review of Systems Review of Systems Constitutional : No Weight loss, No Fever, No Chills, No Night Sweats, No Fatigue, No Malaise ENT/Mouth : No Hearing loss, No Ear Pain, No Nasal Congestion, No Sinus Pain, No Hoarseness, No sore throat, No Rhinorrhea, No Swallowing Difficulty Eyes: No Eye Pain, No Swelling, No Redness, No Foreign Body, No Discharge, No Vision Changes Cardiovascular : No Chest Pain, No SOB, No Dyspnea on Exertion, No Orthopnea, No Edema, No Palpitations Respiratory : No Cough, No Sputum, No Wheezing, No Smoke Exposure, No Dyspnea Gastrointestinal : Complaining of Nausea, No Vomiting, No Diarrhea, No Constipation, complaining of worsening epigastric pain radiating towards the b ack, no melena Genitourinary : no irregular bleeding, No Dysuria, No Urinary Frequency, No Hematuria, No Urinary Incontinence, No Urgency, No Flank Pain, No Urinary Flow Changes, No Hesitancy Musculoskeletal : No joint pain, No Myalgias, No Joint Swelling Skin : No Skin Lesions, No rash Neuro : No Weakness, No Numbness, No Paresthesias, No Loss of Consciousness, No Dizziness, No Headache Psych : No Anxiety/Panic, No Depression, No SI/HI/AH/VH, No Social Issues, Heme/Lymph: No Bruising, No Bleeding,No Lymphadenopathy Endocrine : No Polyuria, No Polydipsia, No Temperature Intolerance [facility] Past Medical History Medical History AAA (abdominal aortic aneurysm) (~2008) Adenocarcinoma of left lung (~2021) Anemia Aortic stenosis Arthritis Atypical migraine AVM (arteriovenous malformation) of colon Barretts esophagus Bilateral pulmonary embolism (~10/2020) Bleeding hemorrhoids CAD (coronary artery disease) Contusion of rib on right side COPD (chronic obstructive pulmonary disease) Depression Diabetes mellitus with hyperglycemia Diabetes mellitus with hyperglycemia, without long-term current use of insulin Essential hypertension GERD without esophagitis GIB (gastrointestinal bleeding) History of blood transfusion Irritable bowel syndrome with both constipation and diarrhea Major depression in full remission Metformin adverse reaction Mixed dyslipidemia Nonrheumatic aortic (valve) stenosis Nonrheumatic mitral valve regurgitation Normocytic anemia Obesity On anticoagulant therapy (~10/2020) On beta [place] at home Pulmonary nodules Restless leg syndrome Transient cerebral ischemia Vitamin B12 deficiency Surgical History History of bilateral breast reduction surgery (~2010) History of colonoscopy (~2018) History of coronary artery bypass graft x 2 (~2017) History of esophagogastroduodenoscopy (EGD) (~2020) History of heart artery stent (~2007) History of hysterectomy History of lung biopsy (~2021) History of total right knee replacement (TKR) (~2015) S/P excision of lipoma (~2017) Family History Family History Father HTN (hypertension) Myocardial infarction Hyperlipidemia Abdominal aneurysm Mother HTN (hypertension) Myocardial infarction Hyperlipidemia Brother Alzheimer's disease Substance abuse Sister Rheumatoid arthritis Brother Rheumatoid arthritis Maternal Aunt Diabetes mellitus Lung cancer Maternal Uncle Diabetes mellitus Son No problems noted. Daughter No problems noted. 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 Oriented X3. Seems uncomfortable Eyes: Pupils equal, round and reactive to light. ENT: Pharynx normal. Neck: Normal inspection. Neck supple. No lymph nodes noted. No crepitus CVS: Normal heart rate and rhythm. Pulses normal. Normal S1 and S2 Respiratory: No respiratory distress. Breath sounds normal. No Wheezing. No rales Abdomen: Soft , tenderness to palpation in the epigastric area, mild guarding, no rebound Skin: Skin warm and dry. Normal skin color. Normal skin turgor. Extremities: No lower extremity edema. No Lacerations. No Rash Neuro: Oriented X 3. No motor deficit. No sensory deficit. Moving all extremities. No slurred speech. CN 2 through 12 grossly intact Psych: calm, cooperative, normal affect Course Course Course Narrative: At this time patient is getting IV fluids, Dilaudid. Patient's EKG, labs and imaging are pending. Patient will likely need to be readmitted. Patient complaining reflux patient getting a GI cocktail. Patient was given 10 units of insulin for hyperglycemia, glucose 371. Patient's lipase is improving. However, patient is still in significant pain. Initially, patient declined Dilaudid, but an accepted. Patient was given 0.5 mg . Patient feeling better. Patient got somnolent, oxygen saturation in the high 80s, patient was given 2 L of oxygen nasal cannula I discussed the patient with nurse practitioner Carlos. Patient being admitted Patient has had 3.5 cm AAA, patient will likely need eventually follow up with vascular surgery. MDM - Abdominal Pain Lab Data Result diagrams: 07/10/22 12:12 07/10/22 12:12 Labs: Lab Results 07/10/22 07/10/22 07/10/22 Range/Units 12:10 12:12 12:12 WBC 5.0 (4.8-10.8) X10*3/uL RBC 2.67 L (4.20-5.50) X10*6/uL Hgb 8.3 L (12.0-16.0) g/dl Hct 25.6 L (37.0-47.0) % MCV 95.9 (80.0-98.0) fL MCH 31.1 (27.0-33.0) pg MCHC 32.4 (31.0-35.0) g/dl RDW 15.9 (11.0-16.0) % Plt Count 238 (160-400) X10*3/uL MPV 10.1 (9.4-12.3) fL Immature Gran % (Auto) 0.4 (0.0-0.4) % Neut % (Auto) 68.4 (45-73) % Lymph % (Auto) 14.7 L (20-40) % [place] % (Auto) 14.5 H (2-11) % Eos % (Auto) 1.4 (0-4) % Baso % (Auto) 0.6 (0-2) % Lymph # (Auto) 0.7 L (1.2-4.9) X10*3/uL [place] # (Auto) 0.7 (0.1-1.2) X10*3/uL Eos # (Auto) 0.1 (0.0-0.4) X10*3/uL Baso # (Auto) 0.0 (0.0-0.2) X10*3/uL Abs Immat Gran (auto) 0.02 (0.00-0.03) X10*3/uL Absolute Neuts (auto) 3.4 (2.0-8.3) x10*3/uL Absolute Nucleated RBC 0.000 (0.0-0.012) X10*3/uL Nucleated RBC % (auto) 0.0 (0.0-0.2) /100WBC Sodium 137 (135-145) mmol/L Potassium 4.4 (3.3-5.1) mmol/L Chloride 102 (96-108) mmol/L Carbon Dioxide 25 (22-29) mmol/L Anion Gap 14 (12-20) BUN 13 (9-16) mg/dL Creatinine 0.84 (0.5-1.4) mg/dL Estim Creat Clear Calc 53.7 Estimated GFR > 60 POC Glucose (60-115) mg/dL Random Glucose 371 H* (60-115) mg/dL Lactic Acid 2.0 (0.5-2.0) mmol/L Calcium 8.0 L D (8.4-10.2) mg/dL Magnesium 1.7 (1.6-2.6) mg/dL Total Bilirubin < 0.2 (0.0-1.0) mg/dL Direct Bilirubin < 0.2 (0.0-0.5) mg/dL AST 16 D (5-31) U/L ALT 10 (0-31) U/L Alkaline Phosphatase 60 (39-117) U/L Troponin I High Sens (<3.5-17.0) ng/L Total Protein 6.2 L (6.5-8.0) g/dL Albumin 3.6 (3.5-5.0) g/dL Lipase 715 H (8-78) U/L Urine Color Urine Appearance Urine pH (5.0-9.0) Ur Specific [place] (1.005-1.025) Urine Protein (Neg-Trace) mg/dL Urine Glucose (UA) (Negative) mg/dL Urine Ketones (Negative) mg/dL Urine Blood (Negative) Urine Nitrite (Negative) Ur Leukocyte Esterase (Negative) Urine RBC (0-2) /HPF Urine WBC (0-5) /HPF Ur Squamous Epith Cells (0-2) /HPF Urine Bacteria (None Seen) Hyaline Casts (0-2) /LPF COVID-19 (ARNAV) (Negative) COVID-19 Clin Com 07/10/22 07/10/22 07/10/22 Range/Units 12:12 12:13 12:13 WBC (4.8-10.8) X10*3/uL RBC (4.20-5.50) X10*6/uL Hgb (12.0-16.0) g/dl Hct (37.0-47.0) % MCV (80.0-98.0) fL MCH (27.0-33.0) pg MCHC (31.0-35.0) g/dl RDW (11.0-16.0) % Plt Count (160-400) X10*3/uL MPV (9.4-12.3) fL Immature Gran % (Auto) (0.0-0.4) % Neut % (Auto) (45-73) % Lymph % (Auto) (20-40) % [place] % (Auto) (2-11) % Eos % (Auto) (0-4) % Baso % (Auto) (0-2) % Lymph # (Auto) (1.2-4.9) X10*3/uL [place] # (Auto) (0.1-1.2) X10*3/uL Eos # (Auto) (0.0-0.4) X10*3/uL Baso # (Auto) (0.0-0.2) X10*3/uL Abs Immat Gran (auto) (0.00-0.03) X10*3/uL Absolute Neuts (auto) (2.0-8.3) x10*3/uL Absolute Nucleated RBC (0.0-0.012) X10*3/uL Nucleated RBC % (auto) (0.0-0.2) /100WBC Sodium (135-145) mmol/L Potassium (3.3-5.1) mmol/L Chloride (96-108) mmol/L Carbon Dioxide (22-29) mmol/L Anion Gap (12-20) BUN (9-16) mg/dL Creatinine (0.5-1.4) mg/dL Estim Creat Clear Calc Estimated GFR POC Glucose (60-115) mg/dL Random Glucose (60-115) mg/dL Lactic Acid (0.5-2.0) mmol/L Calcium (8.4-10.2) mg/dL Magnesium (1.6-2.6) mg/dL Total Bilirubin (0.0-1.0) mg/dL Direct Bilirubin (0.0-0.5) mg/dL AST (5-31) U/L ALT (0-31) U/L Alkaline Phosphatase (39-117) U/L Troponin I High Sens 14.0 D (<3.5-17.0) ng/L Total Protein (6.5-8.0) g/dL Albumin (3.5-5.0) g/dL Lipase (8-78) U/L Urine Color Yellow Urine Appearance Clear Urine pH 6.5 (5.0-9.0) Ur Specific [place] >= 1.030 H (1.005-1.025) Urine Protein 30 (1+) H (Neg-Trace) mg/dL Urine Glucose (UA) >=1000 H (Negative) mg/dL Urine Ketones 15 (Negative) mg/dL Urine Blood Negative (Negative) Urine Nitrite Negative (Negative) Ur Leukocyte Esterase Negative (Negative) Urine RBC 0-2 (0-2) /HPF Urine WBC 0-5 (0-5) /HPF Ur Squamous Epith Cells 0-2 (0-2) /HPF Urine Bacteria None Seen (None Seen) Hyaline Casts 0-2 (0-2) /LPF COVID-19 (ARNAV) Negative (Negative) COVID-19 Clin Com See Note 07/10/22 Range/Units 14:45 WBC (4.8-10.8) X10*3/uL RBC (4.20-5.50) X10*6/uL Hgb (12.0-16.0) g/dl Hct (37.0-47.0) % MCV (80.0-98.0) fL MCH (27.0-33.0) pg MCHC (31.0-35.0) g/dl RDW (11.0-16.0) % Plt Count (160-400) X10*3/uL MPV (9.4-12.3) fL Immature Gran % (Auto) (0.0-0.4) % Neut % (Auto) (45-73) % Lymph % (Auto) (20-40) % [place] % (Auto) (2-11) % Eos % (Auto) (0-4) % Baso % (Auto) (0-2) % Lymph # (Auto) (1.2-4.9) X10*3/uL [place] # (Auto) (0.1-1.2) X10*3/uL Eos # (Auto) (0.0-0.4) X10*3/uL Baso # (Auto) (0.0-0.2) X10*3/uL Abs Immat Gran (auto) (0.00-0.03) X10*3/uL Absolute Neuts (auto) (2.0-8.3) x10*3/uL Absolute Nucleated RBC (0.0-0.012) X10*3/uL Nucleated RBC % (auto) (0.0-0.2) /100WBC Sodium (135-145) mmol/L Potassium (3.3-5.1) mmol/L Chloride (96-108) mmol/L Carbon Dioxide (22-29) mmol/L Anion Gap (12-20) BUN (9-16) mg/dL Creatinine (0.5-1.4) mg/dL Estim Creat Clear Calc Estimated GFR POC Glucose 206 H (60-115) mg/dL Random Glucose (60-115) mg/dL Lactic Acid (0.5-2.0) mmol/L Calcium (8.4-10.2) mg/dL Magnesium (1.6-2.6) mg/dL Total Bilirubin (0.0-1.0) mg/dL Direct Bilirubin (0.0-0.5) mg/dL AST (5-31) U/L ALT (0-31) U/L Alkaline Phosphatase (39-117) U/L Troponin I High Sens (<3.5-17.0) ng/L Total Protein (6.5-8.0) g/dL Albumin (3.5-5.0) g/dL Lipase (8-78) U/L Urine Color Urine Appearance Urine pH (5.0-9.0) Ur Specific [place] (1.005-1.025) Urine Protein (Neg-Trace) mg/dL Urine Glucose (UA) (Negative) mg/dL Urine Ketones (Negative) mg/dL Urine Blood (Negative) Urine Nitrite (Negative) Ur Leukocyte Esterase (Negative) Urine RBC (0-2) /HPF Urine WBC (0-5) /HPF Ur Squamous Epith Cells (0-2) /HPF Urine Bacteria (None Seen) Hyaline Casts (0-2) /LPF COVID-19 (ARNAV) (Negative) COVID-19 Clin Com Imaging Data CT scan - abdomen: Radiologist's impression: FINDINGS: LUNG BASES: The visualized lung bases are unremarkable. Calcified granuloma present in the right middle lobe. Bibasilar atelectasis. LIVER, GALLBLADDER, AND BILIARY TREE: The liver is is again noted to be enlarged 2.4 cm in greatest length and most likely demonstrates decreased attenuation suggesting hepatic steatosis.? No focal hepatic lesion or biliary ductal dilatation is present. The gallbladder is unremarkable with no evidence of radiopaque gallstones, gallbladder wall thickening, or obvious pericholecystic inflammatory changes.? PANCREAS: Previously seen subtle pancreatic stranding is without significant change and is no evidence to suggest progressive pancreatitis? SPLEEN: Unremarkable.? ADRENAL GLANDS: Unremarkable.? KIDNEYS AND URETERS: The kidneys are normal in size, shape, and attenuation. No hydronephrosis, hydroureter, or calculi seen. No perinephric stranding. ? BLADDER: Unremarkable.? GASTROINTESTINAL TRACT: The small and large bowel are unremarkable. The appendix is unremarkable.? ABDOMINAL WALL: No significant hernia is appreciated.? LYMPH NODES: No retroperitoneal lymphadenopathy. Some small peripancreatic and periportal lymph nodes are seen. VASCULAR: Again noted are atherosclerotic changes in the aorta and iliofemoral vessels with 3.5 cm infrarenal AAA. PELVIC VISCERA: Unremarkable.? OSSEOUS STRUCTURES: Unremarkable.? CT/CT abdomen pelvis w IV con IMPRESSION: There is been no progression of this subtle peripancreatic inflammatory change seen previously and there is no evidence of any worsening pancreatitis. Incidental findings described above including enlarged probable fatty liver and infrarenal AAA ? Fleischner guidelines were followed. Critical Care Time Critical Care Time Critical Care Time: Yes Total Critical Care Time: 30 Attestation: I have personally provided critical care time. Time includes review of lab data, radiology results, discussion with consultants, and monitoring for potential decompensation. Intervention performed as documented. Discharge Plan Discharge Clinical Impression: Acute pancreatitis, Abdominal pain Patient Disposition: Admitted As Inpatient Prescriptions: No Action folic acid 1 mg tablet 1 mg PO DAILY 90 Days Qty: 90 2RF clotrimazole 2 % cream 1 appful vaginal BEDTIME PRN (Reason: VAGINAL ITCH) Qty: 21 1RF metoprolol succinate 50 mg tablet extended release 24 hr 150 mg PO BEDTIME Qty: 270 3RF (DME) blood-glucose meter [[employer]Touch Ultra2 Meter] [facility] [place] Rx Instructions .Route Qty: 1 0RF Rx Instructions: As directed to test blood sugar once a day (DME) OneTouch Ultra Test Strip See Rx Instructions .Route Qty: 100 3RF Rx Instructions: test blood sugar once daily (DME) lancets [OneTouch Delica Lancets] 33 gauge [facility] [place] See Rx Instructions .Route Qty: 100 3RF Rx Instructions: test blood sugar once a day omeprazole 40 mg capsule,delayed release(DR/EC) 40 mg PO DAILY 90 Days Qty: 90 2RF atorvastatin 80 mg tablet 80 mg PO BEDTIME Qty: 90 0RF alprazolam 0.25 mg tablet 0.25 mg PO DAILY PRN (Reason: Anxiety) Qty: 20 0RF trazodone 50 mg tablet 50 mg PO BEDTIME Qty: 90 0RF Eliquis 5 mg tablet 1 tab PO Q12H sertraline [Zoloft] 100 mg tablet 100 mg PO DAILY sennosides-docusate sodium [Senna with Docusate Sodium] 8.6-50 mg Tablet 1 tab-cap PO BEDTIME Qty: 30 2RF nystatin 100,000 unit/gram Powder 1 appl TOPICAL TID Qty: 100 0RF nystatin 100,000 unit/mL suspension 1 ml BUCCAL BID Rx Instructions: administer 1/2 of dose in each side of the mouth lisinopril 2.5 mg Tablet 2.5 mg PO DAILY insulin glargine [Lantus Solostar U-100 Insulin] 100 unit/mL (3 mL) insulin pen 15 unit subcut QPM Qty: 15 1RF verapamil 100 mg capsule, [address] 100 mg PO BEDTIME cholecalciferol (vitamin D3) 50 mcg (2,000 unit) capsule 50 mcg PO DAILY ferrous fumarate 325 mg (106 mg iron) tablet 325 mg PO Q2D loratadine [Allergy Relief (loratadine)] 10 mg tablet 10 mg PO DAILY Qty: 30 0RF (DME) pen needle, diabetic [BD Ultra-Fine Orig Pen Needle] 29 gauge x 1/2 needle See Rx Instructions .Route Qty: 100 0RF Rx Instructions: As directed acetaminophen 500 mg tablet 500 mg PO BID Rx Instructions: Patient takes scheduled BID (in pill box) isosorbide mononitrate 30 mg tablet extended release 24 hr 30 mg PO DAILY
[2022-07-10 11:52] VITALS: BP 133/55; PULSE 78; RESP 17; TEMP 36.9; O2SAT 97; BMI 34.0
[2022-07-10 12:24] LABS: MANUAL DIFF FLAG NO
[2022-07-10] MEDS: 0.9 % Sodium Chloride 1,000 ML 999 ML IVCONT (12:25)
[2022-07-10 12:26] LABS: Appearance Urine Clear; Color Urine Yellow; Glucose Urine UA >=1000 mg/dL (Negative); Leukocyte Esterase Urine Negative (Negative); Nitrite Urine Negative (Negative); PH 6.5 (5.0-9.0); Specific Gravity - Urine >= 1.030 (1.005-1.025); UMIC TRIGGER UACC YES; Urine Blood Negative (Negative); Urine Ketones 15 mg/dL (Negative); Urine Protein 30 (1+) mg/dL (Neg-Trace)
[2022-07-10 12:27] LABS: Basophils Percent Auto 0.6 % (0-2); Eosinophils Absolute Auto 0.1 X10*3/uL (0.0-0.4); Eosinophils Percent Auto 1.4 % (0-4); Hematocrit 25.6 % (37.0-47.0); Hemoglobin 8.3 g/dl (12.0-16.0); Imm Gran Abs Auto 0.02 X10*3/uL (0.00-0.03); Imm Gran Pct Auto 0.4 % (0.0-0.4); Lymphocytes Absolute Auto 0.7 X10*3/uL (1.2-4.9); Lymphocytes Percent Auto 14.7 % (20-40); Mean Corpuscular HGB Conc 32.4 g/dl (31.0-35.0); Mean Corpuscular Hemoglobin 31.1 pg (27.0-33.0); Mean Corpuscular Volume 95.9 fL (80.0-98.0); Mean Platelet Volume 10.1 fL (9.4-12.3); Monocytes Absolute Auto 0.7 X10*3/uL (0.1-1.2); Monocytes Percent Auto 14.5 % (2-11); Neutrophils Absolute Auto 3.4 x10*3/uL (2.0-8.3); Neutrophils Percent Auto 68.4 % (45-73); Platelet Count 238 X10*3/uL (160-400); Red Blood Count 2.67 X10*6/uL (4.20-5.50); Red Cell Distribution Width 15.9 % (11.0-16.0)
[2022-07-10 12:35] LABS: Bacteria Urine None Seen (None Seen); Hyaline Casts Urine 0-2 /LPF (0-2); RBC Urine 0-2 /HPF (0-2); Squamous Epithelial Cell Urine 0-2 /HPF (0-2); WBC Urine 0-5 /HPF (0-5)
[2022-07-10 12:45] LABS: Alanine Aminotransferase 10 U/L (0-31); Albumin Level 3.6 g/dL (3.5-5.0); Alkaline Phosphatase 60 U/L (39-117); Anion Gap 14 (12-20); Aspartate Amino Transferase 16 U/L (5-31); Bilirubin Direct < 0.2 mg/dL (0.0-0.5); Bilirubin Total < 0.2 mg/dL (0.0-1.0); Blood Urea Nitrogen 13 mg/dL (9-16); Carbon Dioxide 25 mmol/L (22-29); Chloride 102 mmol/L (96-108); Creatinine Clr Calc Pharmacy 53.7; Estimated Glomerular Filt Rate > 60; Glucose Random 371 mg/dL (60-115); Lipase 715 U/L (8-78); Magnesium 1.7 mg/dL (1.6-2.6); Potassium 4.4 mmol/L (3.3-5.1); Sodium 137 mmol/L (135-145); Total Protein 6.2 g/dL (6.5-8.0)
[2022-07-10 13:01] LABS: COVID-19 Test Negative (Negative); IDNOW Serial# 55D5AD1C
[2022-07-10] MEDS: iohexoL 350 MG/ML 100 ML INFUS..BTL IV (13:25)
[2022-07-10 14:22] VITALS: BP 99/58; PULSE 87; RESP 17; TEMP 36.8; O2SAT 97
[2022-07-10] MEDS: Insulin Regular, Human 100 UNIT/ML 3 ML VIAL 10 UNIT IVPUSH (14:24)
[2022-07-10 14:54] LABS: Glucose, Whole Blood 206 mg/dL (60-115)
[2022-07-10 16:00] VITALS: BP 103/53; PULSE 79; RESP 16; TEMP 36.8; O2SAT 98
--- NOTE | 2022-07-10 16:11 | PHA.MEDREC ---
Pharmacy Consult ? Medication Reconciliation Pharmacy has completed the medication reconciliation.
[2022-07-10] MEDS: HYDROmorphone HCl 0.5 MG/0.5 ML SYRINGE IVPUSH (16:28)
[2022-07-10] MEDS: Magnesium Hydrox/Alum Hydrox 30 ML ORAL.SUSP PO (16:35)
[2022-07-10] MEDS: Lidocaine HCl Viscous 2 % 15 ML SOLUTION MUCOUS MEM (16:35)
--- NOTE | 2022-07-10 16:37 | PM.IMHP ---
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 She was admitted to the hospital on 07/03 with acute pancreatitis and improved rapidly and was discharged the next day but coming back today because his pain lingered. She was see in the oncology clinic today and was having excruciating pain and so was sent to the ED . Lipase level remains high at 715 though lower than when discharged the last time. CT of the abdomen and pelvis show no worsening in peripancreatic change of acute pancreatitis, LFTS are ok. She has received Dilaudid and now has zero Review of Systems Review of Systems: Yes all other systems are reviewed and are negative Constitutional: Comments: General: No fevers, malaise, unintentional weight loss Cardiovascular: No chest pain, palpitations, or leg edema Respiratory: No shortness of breath, wheezing, cough GI: +epigastric pain, +constipation. No nausea, vomiting, diarrhea, melena, hematochezia : No dysuria, hematuria, increased urinary frequency Neuro: No headaches, weakness, paresthesias Skin: No rashes or lesions [facility] Medical History AAA (abdominal aortic aneurysm) (~2008) Adenocarcinoma of left lung (~2021) Anemia Aortic stenosis Arthritis Atypical migraine AVM (arteriovenous malformation) of colon Barretts esophagus Bilateral pulmonary embolism (~10/2020) Bleeding hemorrhoids CAD (coronary artery disease) Contusion of rib on right side COPD (chronic obstructive pulmonary disease) Depression Diabetes mellitus with hyperglycemia Diabetes mellitus with hyperglycemia, without long-term current use of insulin Essential hypertension GERD without esophagitis GIB (gastrointestinal bleeding) History of blood transfusion Irritable bowel syndrome with both constipation and diarrhea Major depression in full remission Metformin adverse reaction Mixed dyslipidemia Nonrheumatic aortic (valve) stenosis Nonrheumatic mitral valve regurgitation Normocytic anemia Obesity On anticoagulant therapy (~10/2020) On beta ashleigh at home Pulmonary nodules Restless leg syndrome Transient cerebral ischemia Vitamin B12 deficiency Family History Father HTN (hypertension) Myocardial infarction Hyperlipidemia Abdominal aneurysm Mother HTN (hypertension) Myocardial infarction Hyperlipidemia Brother Alzheimer's disease Substance abuse Sister Rheumatoid arthritis Brother Rheumatoid arthritis Maternal Aunt Diabetes mellitus Lung cancer Maternal Uncle Diabetes mellitus Son No problems noted. Daughter No problems noted. Surgical History History of bilateral breast reduction surgery (~2010) History of colonoscopy (~2018) History of coronary artery bypass graft x 2 (~2017) History of esophagogastroduodenoscopy (EGD) (~2020) History of heart artery stent (~2007) History of hysterectomy History of lung biopsy (~2021) History of total right knee replacement (TKR) (~2015) S/P excision of lipoma (~2017) Social History Household Members: Spouse Housing: House Do you presently have visiting nurse or other home services: No Alcohol intake: former Patient Tobacco Use Status: Former Tobacco user Quit Date: 1986 Tobacco use type: Cigarette Cigarette Packs Per Day: 2 Years Smoked: 30 e-Cigarette/Vaping Use: Never Used Second Hand Smoke Exposure: No Substance Use Type: Marijuana Advance Directives: Yes Advance Directives on File: Yes Advance Directives Date on File: 04/27/22 service: No Current occupational status: retired 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 Cognitive needs: No Hearing needs: No Vision needs: Yes Meds Allergies Allergy/AdvReac Type Severity Reaction Status Date / Time sulfamethoxazole Allergy Severe Rash Verified 07/02/22 16:58 [From Bactrim] adhesive tape [ADHESIVE TAPE] Allergy Intermediate BLISTERS Verified 07/02/22 16:58 clonidine Allergy makes pt Verified 07/02/22 16:58 hulusinate adhesive AdvReac Severe BLISTERS Verified 07/02/22 16:58 gabapentin AdvReac Severe hallucinati Verified 07/02/22 16:58 on morphine AdvReac Severe hallucinati Verified 07/02/22 16:58 on glue AdvReac Severe BLISTERS Uncoded 07/02/22 16:58 Active Medications: Current Medications Pharmacy Consult (Consult Rx Perform Med Rec) 1 each MISCELLANE ONCE PRN PRN Reason: Consult order Home Medications Medication Instructions Recorded Confirmed Last Taken Type cholecalciferol (vitamin D3) 50 50 mcg PO DAILY 10/26/20 07/10/22 07/10/22 History mcg (2,000 unit) capsule verapamil 100 mg capsule 24hr 100 mg PO BEDTIME 10/26/20 07/10/22 07/09/[address],ext.release acetaminophen 500 mg tablet 500 mg PO BID 11/07/20 07/10/22 07/10/22 History isosorbide mononitrate 30 mg 30 mg PO DAILY 10/02/21 07/10/22 07/10/22 History tablet,extended release 24 hr apixaban 5 mg tablet (Eliquis) 1 tab PO Q12H 02/19/22 07/10/22 07/10/22 History ferrous fumarate 325 mg (106 mg 325 mg PO Q2D 03/16/22 07/10/22 07/10/22 History iron) tablet sertraline 100 mg tablet (Zoloft) 100 mg PO DAILY 04/27/22 07/10/22 07/10/22 History lisinopril 2.5 mg tablet 2.5 mg PO DAILY 07/03/22 07/10/22 07/10/22 History nystatin 100,000 unit/mL oral 1 ml buccal BID 07/10/22 07/10/22 07/10/22 History suspension Physical Exam Vital Signs and Narrative: Vital Signs: Last Vital Signs Temp 98.2 F 07/10/22 16:00 Pulse 79 07/10/22 16:00 Resp 16 07/10/22 16:00 BP 103/53 L 07/10/22 16:00 Pulse Ox 98 07/10/22 16:00 O2 Del Method 07/10/22 16:00 BMI result Body Mass Index 34.0 Const: Other: Constitutional - Awake and Alert, No apparent distress Eyes - PERRLA, EOMI Cardiovascular - S1S2, RRR, No edema Respiratory - Normal lung expansion, Normal respiratory effort, No respiratory distress, CTA bilaterally Gastrointestinal - NT / ND; +BS; No rebound or guarding - No CVA tenderness Extremities - no calf tenderness bilaterally, no swelling Musculoskeletal - Normal inspection, normal ROM Skin - Warm/Dry Neurological - Alert & oriented x3, CN II-XIi in tact. No sensory or motor deficit Psychological - Appropriate affect Results Labs CBC and Chem 7: 07/10/22 12:12 07/10/22 12:12 Labs: ALT 16 AST 10 Lipase 715 Imaging Radiologist's Impressions: Impressions Abdomen/Pelvis CT 07/10/22 13:34 IMPRESSION: There is been no progression of this subtle peripancreatic inflammatory change seen previously and there is no evidence of any worsening pancreatitis. Incidental findings described above including enlarged probable fatty liver and infrarenal AAA Fleischner guidelines were followed. 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 1-Acute pancreatitis- unresolved- We believed related to Keytruda -CT abd/pelvis with mild pancreatitis -Lipase 715 improved since last admisssion - IVF -Clear liquid diet. Advance as tolerated -Pain control via pain scale -Ondansetron prn nausea/vomiting -Hold Keytruda. Follow up with oncology outpt -Dilaudid for pain 2- Uncontrolled insulin dependent type 2 diabetes -Hyperglycemia last 2 weeks likely related to pancreatitis. No recent steroid use. -Continue lantus and increase to 20 units nightly -Humalog SSI -POC glucose 3-Hx bilateral pulmonary embolism -Continue apixiban. 4-HTN- controlled -Continue home meds 5-CAD s/p CABG x2 last year/HLD- no anginal chest pain -Continue metorpolol/atorvastatin/isosorbide -Follow outpt with Dr. Hernandez 6-Depression/anxiety -Continue sertraline, trazadone, and alprazolam 7-Chronic constipation- severely exacerbated by narcotics -Continue home senna. Bowel regimen 8-Chronic normocytic anemia- stable -Continue ferrous sulfate DVT prophylaxis- continue apixiban Full code Need for inaptient: Unresolved acute pancreatitis, need IVF and IV Pain med while limitted oral intake Quality Stroke Does the patient have a stroke diagnosis?: No VTE Prior VTE?: Yes VTE Risk Level:: Medical - moderate - high VTE Device Contraindication: Treatment Not Indicated VTE Drug Contraindication: N/A - Med Ordered
[2022-07-10 18:28] VITALS: BP 117/60; PULSE 83; RESP 18; TEMP 36.9; O2SAT 97
[2022-07-10 18:36] LABS: Glucose, Whole Blood 179 mg/dL (60-115)
[2022-07-10] MEDS: Sodium Chloride 0.45 % 1,000 ML 100 ML IVCONT (18:40)
[2022-07-10 20:00] VITALS: BP 110/59; PULSE 91; RESP 16; TEMP 36.9; O2SAT 95
[2022-07-10 21:21] LABS: Glucose, Whole Blood 236 mg/dL (60-115)
[2022-07-10] MEDS: Apixaban 5 MG TABLET PO (22:10)
[2022-07-10] MEDS: Metoprolol Succinate ER 50 MG TAB.ER.24H 150 MG PO (22:10)
[2022-07-10] MEDS: traZODone HCL 50 MG TABLET PO (22:10)
[2022-07-10] MEDS: Sennosides/Docusate Sodium TABLET 1 TAB PO (22:10)
[2022-07-10] MEDS: Nystatin Oral Susp 500,000 UNIT/5 ML ORAL.SUSP 200000 UNIT BUCCAL (22:11)
[2022-07-10] MEDS: Atorvastatin Calcium 80 MG TABLET PO (22:11)
[2022-07-10] MEDS: Insulin Lispro 100 UNIT/ML 3 ML VIAL SUBCUT (22:11)
[2022-07-10] MEDS: Insulin Glargine,Hum.rec.anlog 100 UNIT/ML 10 ML VIAL 20 UNIT SUBCUT (22:12)
[2022-07-10 22:28] VITALS: RESP 14
[2022-07-10] MEDS: HYDROmorphone HCl 1 MG/ML SYRINGE 0.5 MG IVPUSH (22:28)
[2022-07-11] VITALS (10 sets, daily range): BP systolic 101–136; BP diastolic 44–57; PULSE 74–106; RESP 14–22; TEMP 36.6–37.1; O2SAT 90–98
[2022-07-11] MEDS: Sodium Chloride 0.45 % 1,000 ML 100 ML IVCONT (04:51)
[2022-07-11] MEDS: Omeprazole 40 MG CAPSULE.DR PO (05:41)
[2022-07-11] MEDS: HYDROmorphone HCl 1 MG/ML SYRINGE 0.5 MG IVPUSH ×2 (05:45→12:11)
--- NOTE | 2022-07-11 06:21 | PC.NURSE ---
PATIENT WAS INCONTINENT OF URINE ,[facility] GIVEN PATION REPOSITION .
[2022-07-11 07:19] LABS: Glucose, Whole Blood 166 mg/dL (60-115)
[2022-07-11] MEDS: Nystatin Oral Susp 500,000 UNIT/5 ML ORAL.SUSP 200000 UNIT BUCCAL (08:04)
[2022-07-11] MEDS: Insulin Lispro 100 UNIT/ML 3 ML VIAL SUBCUT ×2 (08:04→13:44)
[2022-07-11] MEDS: Cholecalciferol (Vitamin D3) 25 MCG TABLET 50 MCG PO (08:05)
[2022-07-11] MEDS: Isosorbide Mononitrate 30 MG TAB.ER.24H PO (08:06)
[2022-07-11] MEDS: Sertraline HCL 100 MG TABLET PO (08:06)
[2022-07-11] MEDS: Apixaban 5 MG TABLET PO ×2 (08:06→21:13)
[2022-07-11] MEDS: lisinopriL 2.5 MG TABLET PO (08:06)
[2022-07-11] MEDS: Loratadine 10 MG TABLET PO (08:06)
[2022-07-11] MEDS: Folic Acid 1 MG TABLET PO (08:07)
--- NOTE | 2022-07-11 09:44 | PC.NURSE ---
Patient is resting comfortably, skin warm and pink, she denies abdominal pain and nausea. she is on 2L oxygen sat at 97. I lowered the oxygen to 1L and will monitor to see how she tolerates it. She is not oxygen dependant
--- NOTE | 2022-07-11 09:56 | P.PNIM_ITS ---
Subjective Subjective Date of Service: 07/11/22 Interval History: f/u on acute pancreaitis, hyperglycemia interval history: pain is better with dilaudid Review of Systems abd pain no n/v no fever Physical Exam Vital Signs: Vital Signs: Last Vital Signs Temp 98.6 F 07/11/22 07:57 Pulse 74 07/11/22 07:57 Resp 14 07/11/22 07:57 BP 136/51 L 07/11/22 07:57 Pulse Ox 95 07/11/22 07:57 O2 Del Method 07/11/22 07:57 O2 Flow Rate 2 07/11/22 07:57 BMI result Body Mass Index 34.0 Const: Other: General: AO X 3, no acute distress Resp: CTA bilateral CVS: S1,S2,RRR GI: +BS,mild epig tenderness, no distention Skin: No rash Neuro: motor grossly intact Psych: appropriate affect Objective Data Active Medications Acetaminophen (Acetaminophen 325 Mg Tablet) 650 mg PO Q6H PRN PRN Reason: Pain, Mild (Pain Scale 1-3) Alprazolam (Alprazolam 0.25 Mg Tablet) 0.25 mg PO DAILY PRN PRN Reason: Anxiety Apixaban (Apixaban 5 Mg Tablet) 5 mg PO BID [facility] Last Admin: 07/11/22 08:06 Dose: 5 mg Documented By: YOAN Atorvastatin Calcium (Atorvastatin Calcium 80 Mg Tablet) 80 mg PO BEDTIME [facility] Last Admin: 07/10/22 22:11 Dose: 80 mg Documented By: IVÁN Clotrimazole (Clotrimazole 1 % Vaginal Cream 45 Gm Tube) 1 appl VAGINAL BEDTIME PRN PRN Reason: VAGINAL ITCH Ferrous Sulfate (Ferrous Sulfate 324 Mg Tablet.) 324 mg PO Q2D [facility] Folic Acid (Folic Acid 1 Mg Tablet) 1 mg PO DAILY [facility] Last Admin: 07/11/22 08:07 Dose: 1 mg Documented By: YOAN Hydromorphone HCl (Hydromorphone Hcl 1 Mg/Ml Syringe) 0.5 mg IVPUSH Q4H PRN; Protocol PRN Reason: Pain, Severe (Pain Scale 7-10) Last Admin: 07/11/22 05:45 Dose: 0.5 mg Documented By: IVÁN Sodium Chloride (Sodium Chloride 0.45 %) 1,000 mls @ 100 mls/hr IVCONT .Q10H [facility] Last Admin: 07/11/22 04:51 Dose: 100 mls/hr Documented By: IVÁN Insulin Glargine (Insulin Glargine,Hum.Rec.Anlog 100 Unit/Ml 10 Ml Vial) 20 unit SUBCUT BEDTIME [facility] Last Admin: 07/10/22 22:12 Dose: 20 unit Documented By: IVÁN Insulin Human Lispro (Insulin Lispro 100 Unit/Ml 3 Ml Vial) 0 unit SUBCUT QIDACHS [facility]; Protocol Last Admin: 07/11/22 08:04 Dose: 2 unit Documented By: YOAN Isosorbide Mononitrate (Isosorbide Mononitrate 30 Mg Tab.Er.24h) 30 mg PO DAILY [facility]; Protocol Last Admin: 07/11/22 08:06 Dose: 30 mg Documented By: YOAN Lisinopril (Lisinopril 2.5 Mg Tablet) 2.5 mg PO DAILY [facility]; Protocol Last Admin: 07/11/22 08:06 Dose: 2.5 mg Documented By: YOAN Loratadine (Loratadine 10 Mg Tablet) 10 mg PO DAILY [facility] Last Admin: 07/11/22 08:06 Dose: 10 mg Documented By: YOAN Magnesium Hydroxide (Milk Of Magnesia 30 Ml Oral.Susp) 30 ml PO DAILY PRN PRN Reason: Constipation Melatonin (Melatonin 3 Mg Tablet) 6 mg PO BEDTIME PRN PRN Reason: Insomnia Metoprolol Succinate (Metoprolol Succinate Er 50 Mg Tab.Er.24h) 150 mg PO BEDTIME [facility]; Protocol Last Admin: 07/10/22 22:10 Dose: 150 mg Documented By: IVÁN Nystatin (Nystatin Oral Susp 500,000 Unit/5 Ml Oral.Susp) 200,000 unit BUCCAL BID [facility]; Protocol Last Admin: 07/11/22 08:04 Dose: 200,000 unit Documented By: YOAN Nystatin (Nystatin Powder 15 Gm Bottle) 1 appl TOPICAL TID [facility]; Protocol Last Admin: 07/10/22 22:13 Dose: Not Given Documented By: IVÁN Non-Admin Reason: Med Not Available Omeprazole (Omeprazole 40 Mg Capsule.) 40 mg PO DAILY@0600 [facility] Last Admin: 07/11/22 05:41 Dose: 40 mg Documented By: IVÁN Ondansetron HCl (Ondansetron Hcl 4 Mg/2 Ml Vial) 4 mg IVPUSH Q8H PRN PRN Reason: Nausea and Vomiting Pharmacy Consult (Consult Rx Perform Med Rec) 1 each MISCELLANE ONCE PRN PRN Reason: Consult order Senna/Docusate Sodium (Sennosides/Docusate Sodium Tablet) 1 tab PO BEDTIME [facility] Last Admin: 07/10/22 22:10 Dose: 1 tab Documented By: IVÁN Sertraline HCl (Sertraline Hcl 100 Mg Tablet) 100 mg PO DAILY [facility] Last Admin: 07/11/22 08:06 Dose: 100 mg Documented By: YOAN Sodium Chloride (0.9 % Sodium Chloride Flush 3 Ml Syringe) 3 ml IVFLUSH QSHIFT [facility] Last Admin: 07/11/22 09:50 Dose: Not Given Documented By: YOAN Non-Admin Reason: IV Running Trazodone HCl (Trazodone Hcl 50 Mg Tablet) 50 mg PO BEDTIME [facility] Last Admin: 07/10/22 22:10 Dose: 50 mg Documented By: IVÁN Verapamil HCl (Verapamil Hcl Sr 100 Mg Cap24h.Pct) 100 mg PO BEDTIME [facility]; Protocol Last Admin: 07/10/22 22:21 Dose: 100 mg Documented By: IVÁN Vitamin D (Cholecalciferol (Vitamin D3) 25 Mcg Tablet) 50 mcg PO DAILY [facility] Last Admin: 07/11/22 08:05 Dose: 50 mcg Documented By: YOAN Labs CBC & Chem 7: 07/10/22 12:12 07/10/22 12:12 Labs: Laboratory Results - last 24 hr 07/10/22 07/10/22 07/10/22 12:10 12:12 12:12 MCV 95.9 MCH 31.1 MCHC 32.4 RDW 15.9 Plt Count 238 MPV 10.1 Immature Gran % (Auto) 0.4 Neut % (Auto) 68.4 Lymph % (Auto) 14.7 L [place] % (Auto) 14.5 H Eos % (Auto) 1.4 Baso % (Auto) 0.6 Lymph # (Auto) 0.7 L [place] # (Auto) 0.7 Eos # (Auto) 0.1 Baso # (Auto) 0.0 Abs Immat Gran (auto) 0.02 Absolute Neuts (auto) 3.4 Absolute Nucleated RBC 0.000 Nucleated RBC % (auto) 0.0 Anion Gap 14 Estim Creat Clear Calc 53.7 Estimated GFR > 60 POC Glucose Random Glucose 371 H* Lactic Acid 2.0 Calcium 8.0 L D Magnesium 1.7 Total Bilirubin < 0.2 Direct Bilirubin < 0.2 AST 16 D ALT 10 Alkaline Phosphatase 60 Total Protein 6.2 L Albumin 3.6 Lipase 715 H Urine Color Urine Appearance Urine pH Ur Specific [place] Urine Protein Urine Glucose (UA) Urine Ketones Urine Blood Urine Nitrite Ur Leukocyte Esterase Urine RBC Urine WBC Ur Squamous Epith Cells Urine Bacteria Hyaline Casts COVID-19 ([facility]) COVID-19 Clin Com 07/10/22 07/10/22 07/10/22 12:13 12:13 14:45 MCV MCH MCHC RDW Plt Count MPV Immature Gran % (Auto) Neut % (Auto) Lymph % (Auto) [place] % (Auto) Eos % (Auto) Baso % (Auto) Lymph # (Auto) [place] # (Auto) Eos # (Auto) Baso # (Auto) Abs Immat Gran (auto) Absolute Neuts (auto) Absolute Nucleated RBC Nucleated RBC % (auto) Anion Gap Estim Creat Clear Calc Estimated GFR POC Glucose 206 H Random Glucose Lactic Acid Calcium Magnesium Total Bilirubin Direct Bilirubin AST ALT Alkaline Phosphatase Total Protein Albumin Lipase Urine Color Yellow Urine Appearance Clear Urine pH 6.5 Ur Specific [place] >= 1.030 H Urine Protein 30 (1+) H Urine Glucose (UA) >=1000 H Urine Ketones 15 Urine Blood Negative Urine Nitrite Negative Ur Leukocyte Esterase Negative Urine RBC 0-2 Urine WBC 0-5 Ur Squamous Epith Cells 0-2 Urine Bacteria None Seen Hyaline Casts 0-2 COVID-19 ([facility]) Negative COVID-19 Clin Com See Note 07/10/22 07/10/22 07/11/22 18:31 21:10 07:06 MCV MCH MCHC RDW Plt Count MPV Immature Gran % (Auto) Neut % (Auto) Lymph % (Auto) [place] % (Auto) Eos % (Auto) Baso % (Auto) Lymph # (Auto) [place] # (Auto) Eos # (Auto) Baso # (Auto) Abs Immat Gran (auto) Absolute Neuts (auto) Absolute Nucleated RBC Nucleated RBC % (auto) Anion Gap Estim Creat Clear Calc Estimated GFR POC Glucose 179 H 236 H 166 H Random Glucose Lactic Acid Calcium Magnesium Total Bilirubin Direct Bilirubin AST ALT Alkaline Phosphatase Total Protein Albumin Lipase Urine Color Urine Appearance Urine pH Ur Specific [place] Urine Protein Urine Glucose (UA) Urine Ketones Urine Blood Urine Nitrite Ur Leukocyte Esterase Urine RBC Urine WBC Ur Squamous Epith Cells Urine Bacteria Hyaline Casts COVID-19 ([facility]) COVID-19 Clin Com Assessment and Plan (1) Anemia: (2) Acute pancreatitis: Status: Acute Plan 77-year-old female with history significant for severe aortic stenosis, Vicente's esophagus, COPD, CAD status post CABG x2, chronic normocytic anemia, uncontrolled insulin-dependent type 2 diabetes, history of bilateral pulmonary embolism anticoagulated with apixaban, 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 1-Acute pancreatitis- unresolved- We believed related to Keytruda -CT abd/pelvis with mild pancreatitis -Lipase 715 improved since last admisssion - continue IVF -Clear liquid diet to full liquid today -Pain control via pain scale -Ondansetron prn nausea/vomiting -Hold Keytruda. Follow up with oncology outpt -Dilaudid for pain 2- Uncontrolled insulin dependent type 2 diabetes -Hyperglycemia last 2 weeks likely related to pancreatitis. -Continue lantus? at 20 units nightly, Blood sugar is much better today -Humalog SSI -POC glucose 3-Hx bilateral pulmonary embolism -Continue apixiban. 4-HTN- controlled -Continue home meds 5-CAD s/p CABG x2 last year/HLD- no anginal chest pain -Continue metorpolol/atorvastatin/isosorbide -Follow outpt with Dr. Hernandez 6-Depression/anxiety -Continue sertraline, trazadone, and alprazolam 7-Chronic constipation- severely exacerbated by narcotics -Continue home senna. Bowel regimen 8-Chronic normocytic anemia- stable -Continue ferrous sulfate DVT prophylaxis- continue apixiban Full code Need for inaptient: Unresolved acute pancreatitis, need IVF and IV Pain med while limitted oral intake Quality Stroke Does the patient have a stroke diagnosis?: No VTE Prior VTE?: Yes VTE Risk Level:: Medical - moderate - high VTE Device Contraindication: Treatment Not Indicated VTE Drug Contraindication: N/A - Med Ordered
[2022-07-11] MEDS: ondansetron HCL 4 MG/2 ML VIAL IVPUSH (10:48)
[2022-07-11] MEDS: Nystatin Powder 15 GM BOTTLE 1 APPL TOPICAL (10:49)
[2022-07-11] MEDS: Ferrous Sulfate 324 MG TABLET.DR PO (10:49)
[2022-07-11] MEDS: ALPRAZolam 0.25 MG TABLET PO (10:49)
--- NOTE | 2022-07-11 11:50 | PC.NURSE ---
Patient ambulated to the bathroom and tolerated it well. She is still feeling nausea.
[2022-07-11 12:39] LABS: Glucose, Whole Blood 153 mg/dL (60-115)
--- NOTE | 2022-07-11 12:58 | MHC.CM.PN ---
met with pt who lives with pt states they are overincome for [facility] and are looking into pp homemaker help she is covid vax x4 has own transport home
[2022-07-11 17:26] LABS: Glucose, Whole Blood 137 mg/dL (60-115)
[2022-07-11 20:57] LABS: Glucose, Whole Blood 223 mg/dL (60-115)
[2022-07-11] MEDS: Metoprolol Succinate ER 50 MG TAB.ER.24H 150 MG PO (21:12)
[2022-07-11] MEDS: Atorvastatin Calcium 80 MG TABLET PO (21:13)
[2022-07-11] MEDS: traZODone HCL 50 MG TABLET PO (21:13)
[2022-07-11] MEDS: Insulin Glargine,Hum.rec.anlog 100 UNIT/ML 10 ML VIAL 20 UNIT SUBCUT (21:14)
--- NOTE | 2022-07-11 22:18 | PC.NURSE ---
patient became agitated, paranoid around 7 pm tonight. She refused to stay in overflow bed #2,stated that she wants to go to the main ED,she doesn't like this area. patient redirected back to the overflow area and moved to the room # 4.Patient's present at that time. After pt's was situated in the bed # 4 ,she requested her to go home. her stated that this confusion happened in the past in the few occasions while pt's was hospitalized.Nursing supervisor burling and joining and security and privacy consultant were present while pt left the overflow and was walking on the hallway. This RN received the phone call from the [facility] saying that pt called 911 few times .For the patient's safety, observer was placed . Pt refused the iv fluids , refused insulin lispro, she is resting in the bed ,cooperative.
[2022-07-12] MEDS: Melatonin 3 MG TABLET 6 MG PO (00:04)
[2022-07-12] MEDS: Sodium Chloride 0.45 % 1,000 ML 100 ML IVCONT ×2 (00:05→10:15)
[2022-07-12] MEDS: HYDROmorphone HCl 1 MG/ML SYRINGE 0.5 MG IVPUSH (03:30)
[2022-07-12] MEDS: ondansetron HCL 4 MG/2 ML VIAL IVPUSH (03:30)
[2022-07-12] MEDS: Omeprazole 40 MG CAPSULE.DR PO (05:02)
[2022-07-12 07:23] LABS: Glucose, Whole Blood 221 mg/dL (60-115)
[2022-07-12 07:43] VITALS: BP 129/60; PULSE 86; RESP 18; TEMP 36.8; O2SAT 96
--- NOTE | 2022-07-12 07:48 | PM.DS ---
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 She was admitted to the hospital on 07/03 with acute pancreatitis and improved rapidly and was discharged the next day? but coming back today? because his pain lingered. She was see in the oncology clinic today and was having excruciating pain and so was sent to the ED . Lipase level remains high at 715 though lower than when discharged the last time. CT of the abdomen and pelvis show no worsening in peripancreatic change of acute pancreatitis, LFTS are ok. She has received Dilaudid and now has zero Hospital course: Patient was admitted for acute pancreatitis related to Keytruda and was treated conservatively with IV, IV pain med and diet been slowly advanced now to regular which she is tolerating and with much improvment in the pain and lipase trending down. The need to continue Keytruda to be discussed with her oncologist on outpatient basis. Time Spent with Patient Time attestation: Total time spent providing and/or coordinating discharge services: Discharge coordination time: Greater than 30 minutes Quality: Safe Use of Opioids Does Pt have an Active Cancer Diagnosis on the Problem List?: No Quality: Stroke Does the patient have a stroke diagnosis?: No Physical Exam Vital Signs: Vital Signs: Last Vital Signs Temp 98.2 F 07/12/22 07:43 Pulse 86 07/12/22 07:43 Resp 18 07/12/22 07:43 BP 129/60 07/12/22 07:43 Pulse Ox 96 07/12/22 07:43 O2 Del Method 07/12/22 07:43 O2 Flow Rate 2 07/11/22 07:57 BMI result Body Mass Index 34.0 Const: Other: General: AO X 3, no acute distress Resp: CTA bilateral CVS: S1,S2,RRR GI: +BS, NT, no distention Skin: No rash Neuro: motor grossly intact Psych: appropriate affect DS: Data Data Completed and Pending Completed studies during hospitalization [Text1]: Procedures Excision of Esophagus, Via Natural or Artificial Opening Endoscopic, Diagnostic (12/08/20) Excision of Jejunum, Via Natural or Artificial Opening Endoscopic, Diagnostic (12/08/20) Excision of Stomach, Pylorus, Via Natural or Artificial Opening Endoscopic, Diagnostic (12/08/20) Inspection of Upper Intestinal Tract, Via Natural or Artificial Opening Endoscopic (09/02/21) Transfusion of Nonautologous Red Blood Cells into Peripheral Vein, Percutaneous Approach (09/02/21) Labs on day of discharge: Laboratory Results - last 24 hr 07/11/22 07/11/22 07/11/22 12:36 17:21 20:54 POC Glucose 153 H 137 H 223 H 07/12/22 07:19 POC Glucose 221 H Preliminary micro results at discharge 07/10/22 12:15 Blood Culture - Preliminary Blood - Venous No growth after 24 hours. 07/10/22 12:12 Blood Culture - Preliminary Blood - Venous No growth after 24 hours. Discharge Plan Discharge Anticipated Discharge Date/Time: 07/12/22 07:46 Patient Disposition: Home, Self-Care Discharge Diagnosis: Acute pancreatitis Referrals: Sary Waite MD [Primary Care Provider] - 1 Week Discharge Medications: Continued folic acid 1 mg tablet 1 mg PO DAILY 90 Days Qty: 90 2RF clotrimazole 2 % cream 1 appful vaginal BEDTIME PRN (Reason: VAGINAL ITCH) Qty: 21 1RF metoprolol succinate 50 mg tablet extended release 24 hr 150 mg PO BEDTIME Qty: 270 3RF (DME) blood-glucose meter [OneTouch Ultra2 Meter] [facility] [place] See Rx Instructions .Route Qty: 1 0RF Rx Instructions: As directed to test blood sugar once a day (DME) OneTouch Ultra Test Strip See Rx Instructions .Route Qty: 100 3RF Rx Instructions: test blood sugar once daily (DME) lancets [OneTouch Delica Lancets] 33 gauge misc See Rx Instructions .Route Qty: 100 3RF Rx Instructions: test blood sugar once a day omeprazole 40 mg capsule,delayed release(DR/EC) 40 mg PO DAILY 90 Days Qty: 90 2RF atorvastatin 80 mg tablet 80 mg PO BEDTIME Qty: 90 0RF alprazolam 0.25 mg tablet 0.25 mg PO DAILY PRN (Reason: Anxiety) Qty: 20 0RF trazodone 50 mg tablet 50 mg PO BEDTIME Qty: 90 0RF Eliquis 5 mg tablet 1 tab PO Q12H sertraline [Zoloft] 100 mg tablet 100 mg PO DAILY sennosides-docusate sodium [Senna with Docusate Sodium] 8.6-50 mg Tablet 1 tab-cap PO BEDTIME Qty: 30 2RF nystatin 100,000 unit/gram Powder 1 appl TOPICAL TID Qty: 100 0RF nystatin 100,000 unit/mL suspension 1 ml BUCCAL BID Rx Instructions: administer 1/2 of dose in each side of the mouth lisinopril 2.5 mg Tablet 2.5 mg PO DAILY insulin glargine [Lantus Solostar U-100 Insulin] 100 unit/mL (3 mL) insulin pen 15 unit subcut QPM Qty: 15 1RF verapamil 100 mg capsule, [address] 100 mg PO BEDTIME cholecalciferol (vitamin D3) 50 mcg (2,000 unit) capsule 50 mcg PO DAILY ferrous fumarate 325 mg (106 mg iron) tablet 325 mg PO Q2D loratadine [Allergy Relief (loratadine)] 10 mg tablet 10 mg PO DAILY Qty: 30 0RF (DME) pen needle, diabetic [BD Ultra-Fine Orig Pen Needle] 29 gauge x 1/2 needle See Rx Instructions .Route Qty: 100 0RF Rx Instructions: As directed acetaminophen 500 mg tablet 500 mg PO BID Rx Instructions: Patient takes scheduled BID (in pill box) isosorbide mononitrate 30 mg tablet extended release 24 hr 30 mg PO DAILY Diet: Diabetic diet Activity on Discharge: As tolerated Stand Alone Forms: Patient Portal Discharge page Care Plan Goals: full recovery from pancreatitis Health Concerns: acute pancreaitis Plan of Treatment: avoid fatty kelley, follow up with your pcp and oncologist Assessment: as above
[2022-07-12] MEDS: Insulin Lispro 100 UNIT/ML 3 ML VIAL SUBCUT (07:57)
[2022-07-12] MEDS: Cholecalciferol (Vitamin D3) 25 MCG TABLET 50 MCG PO (07:59)
[2022-07-12] MEDS: Apixaban 5 MG TABLET PO (08:00)
[2022-07-12] MEDS: Sertraline HCL 100 MG TABLET PO (08:00)
[2022-07-12] MEDS: Folic Acid 1 MG TABLET PO (08:00)
[2022-07-12] MEDS: Nystatin Oral Susp 500,000 UNIT/5 ML ORAL.SUSP 200000 UNIT BUCCAL (08:00)
[2022-07-12] MEDS: Loratadine 10 MG TABLET PO (08:00)
[2022-07-12] MEDS: lisinopriL 2.5 MG TABLET PO (08:57)
[2022-07-12] MEDS: Isosorbide Mononitrate 30 MG TAB.ER.24H PO (08:57)
[2022-07-12] MEDS: ALPRAZolam 0.25 MG TABLET PO (08:59)
[2022-07-12 09:39] LABS: Lipase 260 U/L (8-78)
== END 2022-07-12 11:36 | disposition home or self-care (01) | DRG 439 ==
LOC: HO.ED 16:46 → HO.EDOVER 17:24
PROVIDERS: Admitting Provider Internal Medicine; Emergency Provider Emergency Medicine; PCP Internal Medicine; Visit Provider Internal Medicine
DX: K85.30 Drug induced acute pancreatitis without necrosis or infection (principal); C34.92 Malignant neoplasm of unspecified part of left bronchus or lung; C79.51 Secondary malignant neoplasm of bone; I08.0 Rheumatic disorders of both mitral and aortic valves; T45.1X5A Adverse effect of antineoplastic and immunosuppressive drugs, initial encounter; G25.81 Restless legs syndrome; I25.10 Atherosclerotic heart disease of native coronary artery without angina pectoris; E78.5 Hyperlipidemia, unspecified; I10 Essential (primary) hypertension; D63.1 Anemia in chronic kidney disease; D64.9 Anemia, unspecified; F32.A Depression, unspecified; F41.9 Anxiety disorder, unspecified; K59.09 Other constipation; E11.65 Type 2 diabetes mellitus with hyperglycemia; Z86.711 Personal history of pulmonary embolism; Z95.1 Presence of aortocoronary bypass graft; Z96.651 Presence of right artificial knee joint; Z88.2 Allergy status to sulfonamides; Z88.5 Allergy status to narcotic agent; Z20.822 Contact with and (suspected) exposure to COVID-19; Z79.4 Long term (current) use of insulin; Z79.01 Long term (current) use of anticoagulants; Z79.899 Other long term (current) drug therapy
CPT/HCPCS: 36415; 74177; 80048; 80076; 81001; 82947; 83605; 83690; 83735; 84484; 85025; 87040; 87635; 93005; 99218; 99285; J1170; J2405; Q9967

== ENCOUNTER 2022-07-13 15:08 | Inpatient (IN) | payer MEDICARE, SELFPAY ==
--- NOTE | ~2022-07-13 | CT_ITS ---
EXAMINATION: CT ABDOMEN AND PELVIS WITH CONTRAST CLINICAL INFORMATION: Abdominal pain, diarrhea COMPARISON: CT abdomen pelvis 07/10/2022 TECHNIQUE: Multidetector volumetric images were obtained from the superior aspect of the liver through the pubic symphysis following administration 85 mL of Omnipaque 350 intravenous contrast. Sagittal and coronal reformatted images were obtained on the technologist's workstation. Oral contrast: No This CT examination was performed using dose optimization techniques as appropriate, variously including the following: *Automated exposure control *Adjustment of mA and/or kV according to patient size (this includes techniques or standardized protocols for targeted exams where dose is matched to indication/reason for exam; i.e. extremities or head) *Use of iterative reconstruction technique DLP: 787 mGy-cm FINDINGS: LUNG BASES: Mitral annular calcifications. ABDOMINAL AND PELVIC WALL: Small fat-containing umbilical hernia. Right inguinal surgical clips. LIVER AND BILIARY TREE: Hypoattenuating hepatic parenchyma suggesting hepatic steatosis. Liver is enlarged measuring 20 cm in span. GALLBLADDER: Unremarkable. PANCREAS: Somewhat tiffanie appearance of the mesentery with small mesenteric nodes similar to prior abutting the pancreas, unclear if this could be related to previously reported pancreatitis or mesenteric panniculitis. This is unchanged from prior. SPLEEN: Unremarkable. ADRENAL GLANDS: Unremarkable. KIDNEYS AND URETERS: Punctate nonobstructing left upper pole renal stone. GASTROINTESTINAL TRACT: Colonic diverticulosis without evidence of diverticulitis. Normal appendix. VASCULAR: Stable 3.2 cm infrarenal abdominal aortic aneurysm. LYMPH NODES/PERITONEUM: No lymphadenopathy. FREE FLUID: None. BLADDER: Unremarkable. PELVIC VISCERA: Status post hysterectomy. OSSEOUS STRUCTURES: An seen is a mixed lytic and sclerotic lesion in the right iliac bone which may reflect a metastasis. Partially imaged median sternotomy wires. CT/CT abdomen pelvis w IV con IMPRESSION: Somewhat tiffanie appearance of the mesentery with small mesenteric nodes similar to prior abutting the pancreas, unclear if this could be related to previously reported pancreatitis or mesenteric panniculitis. This is unchanged from prior. An seen is a mixed lytic and sclerotic lesion in the right iliac bone which may reflect a metastasis. Punctate nonobstructing left upper pole renal stone. Stable 3.2 cm infrarenal abdominal aortic aneurysm. For abdominal aortic aneurysms measuring 3.0 to 3.4 cm, recommend every 3 year follow-up imaging.
--- NOTE | 2022-07-13 15:16 | PM.IMHP ---
History of Present Illness Date of Service: 07/13/22 Attending physician on admission: Kar Baeza Chief Complaint: Abdominal pain/ hyperglycemia 77-year-old female patient recently discharged from [facility] on 07/12, after 3 day stay in the hospital for acute pancreatitis related to Keytruda and was treated conservatively with IV fluids analgesics, as per patient she was feeling better yesterday with stable abdominal pain but after going home she ate [employer] sandwich, half fries and milk shake, later in the evening patient developed worsening epigastric pain, and a new left lower quadrant abdominal pain associated with loose watery yellowish frothy stools, her last bowel movement was 3 hours ago she complained of associated nausea with no vomiting with these symptoms she presented to her primary oncologist Dr. Perdue who treated her with 1 L of IV fluid and requested admission for persistent abdominal pain and hyperglycemia, as per patient her left lower quadrant abdominal pain started after eating [employer] and her epigastric pain is stable since yesterday, she denies fever, chills denies, new medication she also complained of headache, no dizziness, she complained of high blood sugars at home up to 400,s she was discharged home on Lantus 15 units at bedtime, prior to acute pancreatitis patient was on Glucophage with good blood sugar controls, patient denies sick contacts, no change in medications since discharge. Review of Systems Review of Systems: General headache , no fever chills. CVS no chest pain, no palpitation. Respiratory no cough no sob. Gastrointestinal no vomiting, abdominal pain As per HPI no urgency no frequency Yes all other systems are reviewed and are negative [facility] Medical History AAA (abdominal aortic aneurysm) (~2008) Adenocarcinoma of left lung (~2021) Anemia Aortic stenosis Arthritis Atypical migraine AVM (arteriovenous malformation) of colon Barretts esophagus Bilateral pulmonary embolism (~10/2020) Bleeding hemorrhoids CAD (coronary artery disease) Contusion of rib on right side COPD (chronic obstructive pulmonary disease) Depression Diabetes mellitus with hyperglycemia Diabetes mellitus with hyperglycemia, without long-term current use of insulin Essential hypertension GERD without esophagitis GIB (gastrointestinal bleeding) History of blood transfusion Irritable bowel syndrome with both constipation and diarrhea Major depression in full remission Metformin adverse reaction Mixed dyslipidemia Nonrheumatic aortic (valve) stenosis Nonrheumatic mitral valve regurgitation Normocytic anemia Obesity On anticoagulant therapy (~10/2020) On beta ashleigh at home Pulmonary nodules Restless leg syndrome Transient cerebral ischemia Vitamin B12 deficiency Family History Father HTN (hypertension) Myocardial infarction Hyperlipidemia Abdominal aneurysm Mother HTN (hypertension) Myocardial infarction Hyperlipidemia Brother Alzheimer's disease Substance abuse Sister Rheumatoid arthritis Brother Rheumatoid arthritis Maternal Aunt Diabetes mellitus Lung cancer Maternal Uncle Diabetes mellitus Son No problems noted. Daughter No problems noted. Surgical History History of bilateral breast reduction surgery (~2010) History of colonoscopy (~2018) History of coronary artery bypass graft x 2 (~2017) History of esophagogastroduodenoscopy (EGD) (~2020) History of heart artery stent (~2007) History of hysterectomy History of lung biopsy (~2021) History of total right knee replacement (TKR) (~2015) S/P excision of lipoma (~2017) Social History Household Members: Spouse Housing: House Do you presently have visiting nurse or other home services: No Alcohol intake: former Patient Tobacco Use Status: Former Tobacco user Quit Date: 1986 Tobacco use type: Cigarette Cigarette Packs Per Day: 2 Years Smoked: 30 e-Cigarette/Vaping Use: Never Used Second Hand Smoke Exposure: No Substance Use Type: Marijuana Advance Directives: Yes Advance Directives on File: Yes Advance Directives Date on File: 04/27/22 service: No Current occupational status: retired 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 Cognitive needs: No Hearing needs: No Vision needs: Yes Meds Allergies Allergy/AdvReac Type Severity Reaction Status Date / Time sulfamethoxazole Allergy Severe Rash Verified 07/02/22 16:58 [From Bactrim] adhesive tape [ADHESIVE TAPE] Allergy Intermediate BLISTERS Verified 07/02/22 16:58 clonidine Allergy makes pt Verified 07/02/22 16:58 hulusinate adhesive AdvReac Severe BLISTERS Verified 07/02/22 16:58 gabapentin AdvReac Severe hallucinati Verified 07/02/22 16:58 on morphine AdvReac Severe hallucinati Verified 07/02/22 16:58 on glue AdvReac Severe BLISTERS Uncoded 07/02/22 16:58 Active Medications: Current Medications Acetaminophen (Acetaminophen 325 Mg Tablet) 650 mg PO Q6H PRN PRN Reason: Pain, Mild (Pain Scale 1-3) Apixaban (Apixaban 5 Mg Tablet) 5 mg PO BID [facility] Atorvastatin Calcium (Atorvastatin Calcium 80 Mg Tablet) 80 mg PO BEDTIME [facility] Dextrose (Dextrose 50 % 25 Gm/50 Ml Syringe) 25 gm IVPUSH Q15M PRN; Protocol PRN Reason: per Hypoglycemia Standing Ord. Glucose (Glucose Gel 15 Gm Gel..Gram.) 15 gm PO Q15M PRN; Protocol PRN Reason: per Hypoglycemia Standing Ord. Insulin Human Lispro (Insulin Lispro 100 Unit/Ml 3 Ml Vial) 0 unit SUBCUT QIDACHS [facility]; Protocol Melatonin (Melatonin 3 Mg Tablet) 3 mg PO BEDTIME PRN PRN Reason: Insomnia Ondansetron HCl (Ondansetron Hcl 4 Mg/2 Ml Vial) 4 mg IVPUSH Q8H PRN PRN Reason: Nausea and Vomiting Oxycodone HCl (Oxycodone Hcl Immed Release 5 Mg Tablet) 5 mg PO Q4H PRN PRN Reason: Pain, Severe (Pain Scale 7-10) Pharmacy Consult (Consult Rx Perform Med Rec) 1 each MISCELLANE ONCE PRN PRN Reason: Consult order Sodium Chloride (0.9 % Sodium Chloride Flush 3 Ml Syringe) [address] [facility] Home Medications Medication Instructions Recorded Confirmed Last Taken Type cholecalciferol (vitamin D3) 50 50 mcg PO DAILY 10/26/20 07/10/22 07/10/22 History mcg (2,000 unit) capsule verapamil 100 mg capsule 24hr 100 mg PO BEDTIME 10/26/20 07/10/22 07/09/[address],ext.release acetaminophen 500 mg tablet 500 mg PO BID 11/07/20 07/10/22 07/10/22 History isosorbide mononitrate 30 mg 30 mg PO DAILY 10/02/21 07/10/22 07/10/22 History tablet,extended release 24 hr apixaban 5 mg tablet (Eliquis) 1 tab PO Q12H 02/19/22 07/10/22 07/10/22 History ferrous fumarate 325 mg (106 mg 325 mg PO Q2D 03/16/22 07/10/22 07/10/22 History iron) tablet sertraline 100 mg tablet (Zoloft) 100 mg PO DAILY 04/27/22 07/10/22 07/10/22 History lisinopril 2.5 mg tablet 2.5 mg PO DAILY 07/03/22 07/10/22 07/10/22 History nystatin 100,000 unit/mL oral 1 ml buccal BID 07/10/22 07/10/22 07/10/22 History suspension insulin lispro 100 unit/mL See Rx Instructions .Route .COMPLEX 07/13/22 07/13/22 Unknown History subcutaneous pen (Humalog KwikPen (U-100) Insulin) Physical Exam Const: Other: General awake alert x3 resting comfortably, in no acute distress. oral mucosa moist no lesions HEENT PERRLA Neck supple no JVD. CVS regular rate rhythm, Respiratory lungs clear to auscultation, no respiratory distress, no wheeze, no rhonchi. Gastrointestinal abdomen soft, mild epigastric and left lower quadrant discomfort with palpation, no guarding, no rigidity bowel sounds audible. Extremities no edema. Neuro nonfocal ,moving all 4 extremity, speech clear. 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 1- Abdominal pain due to recently diagnosed drug induced pancreatitis- believed related to Keytruda persistent epigastric abdominal discomfort and new left lower quadrant abdominal pain Likely related to diarrhea -CT abd/pelvis 07/10 showed mild pancreatitis -Lipase 260 on 07/12 improved from 1723 during last admission -will treat with IV fluids place on diabetic diet continue pain control with oxycodone,iv dilaudid, Zofran for nausea and vomiting, keytruda is on hold. 2- Uncontrolled insulin dependent type 2 diabetes, worsening blood sugars related to pancreatitis and dietary indiscretion -Continue lantus? and add insulin sliding scale monitor blood sugars q.i.d., will provide teachings to check blood sugar and administer insulin will request for VNA services prior to dischargei 3-Diarrhea likely related to [place] food, since patient was not eating well in last few days and had large meal yesterday evening , no fevers no chills no other family member sick, COVID-19 negative, recent CT abdomen and pelvis 927 showed no acute pathology, will send stool studies check C diff. will hold stool softeners 4.Hx bilateral pulmonary embolism -Continue apixiban. 5-HTN- controlled -Continue home meds 5-CAD s/p CABG x2 last year/HLD- no anginal chest pain, will resume home medications metorpolol/atorvastatin/isosorbide -Follow outpt with Dr. Hernandez 6-Depression/anxiety -Continue sertraline, trazadone, and alprazolam, 7-Chronic normocytic anemia- follow CBC 8. metastatic lung CA outpatient follow-up with Dr. Perdue DVT prophylaxis- continue apixiban Full code Need for inaptient: hyperglycemia need blood sugar monitoring, and persistent abdominal pain due to pancreatitis needs IV fluids and iv pain management. Quality Stroke Does the patient have a stroke diagnosis?: No VTE Prior VTE?: No VTE Risk Level:: Medical - moderate - high VTE Device Contraindication: Treatment Not Indicated VTE Drug Contraindication: N/A - Med Ordered
[2022-07-13 16:00] VITALS: BP 160/71; PULSE 72; RESP 20; TEMP 36.4; O2SAT 95
[2022-07-13 17:25] LABS: Glucose, Whole Blood 138 mg/dL (60-115)
[2022-07-13 19:29] VITALS: BP 110/51; PULSE 91; RESP 17; TEMP 36.1; O2SAT 95
[2022-07-13 21:05] LABS: Glucose, Whole Blood 257 mg/dL (60-115)
[2022-07-13] MEDS: Metoprolol Succinate ER 50 MG TAB.ER.24H 150 MG PO (21:06)
[2022-07-13] MEDS: Apixaban 5 MG TABLET PO (21:07)
[2022-07-13] MEDS: traZODone HCL 50 MG TABLET PO (21:07)
[2022-07-13] MEDS: ALPRAZolam 0.25 MG TABLET PO (21:07)
[2022-07-13] MEDS: Atorvastatin Calcium 80 MG TABLET PO (21:07)
[2022-07-13] MEDS: Insulin Glargine,Hum.rec.anlog 100 UNIT/ML 10 ML VIAL 20 UNIT SUBCUT (21:07)
[2022-07-13] MEDS: Insulin Lispro 100 UNIT/ML 3 ML VIAL SUBCUT (21:08)
[2022-07-13 22:54] VITALS: BMI 33.8
[2022-07-13] MEDS: Magnesium Hydrox/Alum Hydrox 30 ML ORAL.SUSP 15 ML PO (23:03)
[2022-07-13] MEDS: traMADoL HCL 50 MG TABLET PO (23:07)
[2022-07-13 23:51] VITALS: BP 97/54; PULSE 92; RESP 17; TEMP 36.1; O2SAT 93
[2022-07-14] VITALS (8 sets, daily range): BP systolic 93–130; BP diastolic 51–70; PULSE 68–87; RESP 16–18; TEMP 36.4–37.1; O2SAT 93–97; BMI 33.8
[2022-07-14] MEDS: Magnesium Hydrox/Alum Hydrox 30 ML ORAL.SUSP 15 ML PO (03:26)
[2022-07-14 03:38] LABS: CDiff Gene PCR NEGATIVE (Negative)
[2022-07-14] MEDS: oxyCODONE HCl Immed Release 5 MG TABLET PO (04:23)
[2022-07-14] MEDS: Loperamide HCl 2 MG CAPSULE PO (04:23)
[2022-07-14] MEDS: Omeprazole 40 MG CAPSULE.DR PO (06:34)
--- NOTE | 2022-07-14 08:28 | HO.PM.IMPN ---
Subjective Subjective Date of Service: 07/14/22 Review of Systems General headache , no fever chills. CVS no chest pain, no palpitation. Respiratory no cough no sob. Gastrointestinal no vomiting, abdominal pain As per HPI no urgency no frequency Physical Exam Vital Signs: Vital Signs: Last Vital Signs Temp 98.8 F 07/14/22 07:48 Pulse 73 07/14/22 07:48 Resp 18 07/14/22 07:48 BP 102/53 L 07/14/22 07:48 Pulse Ox 93 07/14/22 07:48 O2 Del Method 07/14/22 07:48 BMI result Body Mass Index 33.8 Const: Other: General awake alert x3 resting comfortably, in no acute distress. oral mucosa moist no lesions HEENT PERRLA Neck supple no JVD. CVS regular rate rhythm, Respiratory lungs clear to auscultation, no respiratory distress, no wheeze, no rhonchi. Gastrointestinal abdomen soft, mild epigastric and left lower quadrant discomfort with palpation, no guarding, no rigidity bowel sounds audible. Extremities no edema. Neuro nonfocal ,moving all 4 extremity, speech clear. Skin no rash psych appropriate affect Objective Data Active Medications Acetaminophen (Acetaminophen 325 Mg Tablet) 650 mg PO Q6H PRN PRN Reason: Pain, Mild (Pain Scale 1-3) Acetaminophen (Acetaminophen 325 Mg Tablet) 650 mg PO BID [facility] Last Admin: 07/13/22 22:28 Dose: Not Given Documented By: PANFILO Non-Admin Reason: Patient Refused Al Hydroxide/Mg Hydroxide (Magnesium Hydrox/Alum Hydrox 30 Ml Oral.Susp) 15 ml PO Q4H PRN PRN Reason: heartburn Last Admin: 07/14/22 03:26 Dose: 15 ml Documented By: PANFILO Alprazolam (Alprazolam 0.25 Mg Tablet) 0.25 mg PO DAILY PRN PRN Reason: Anxiety Last Admin: 07/13/22 21:07 Dose: 0.25 mg Documented By: PANFILO Apixaban (Apixaban 5 Mg Tablet) 5 mg PO BID [facility] Last Admin: 07/13/22 21:07 Dose: 5 mg Documented By: PANFILO Atorvastatin Calcium (Atorvastatin Calcium 80 Mg Tablet) 80 mg PO BEDTIME [facility] Last Admin: 07/13/22 21:07 Dose: 80 mg Documented By: PANFILO Clotrimazole (Clotrimazole 1 % Vaginal Cream 45 Gm Tube) 1 appl VAGINAL BEDTIME PRN PRN Reason: VAGINAL ITCH Dextrose (Dextrose 50 % 25 Gm/50 Ml Syringe) 25 gm IVPUSH Q15M PRN; Protocol PRN Reason: per Hypoglycemia Standing Ord. Ferrous Sulfate (Ferrous Sulfate 324 Mg Tablet.) 324 mg PO Q2D [facility] Folic Acid (Folic Acid 1 Mg Tablet) 1 mg PO DAILY [facility] Glucose (Glucose Gel 15 Gm Gel..Gram.) 15 gm PO Q15M PRN; Protocol PRN Reason: per Hypoglycemia Standing Ord. Hydromorphone HCl (Hydromorphone Hcl 0.5 Mg/0.5 Ml Syringe) 0.5 mg IVPUSH Q4H PRN; Protocol PRN Reason: Pain, Severe (Pain Scale 7-10) Insulin Glargine (Insulin Glargine,Hum.Rec.Anlog 100 Unit/Ml 10 Ml Vial) 20 unit SUBCUT BEDTIME [facility] Last Admin: 07/13/22 21:07 Dose: 20 unit Documented By: PANFILO Insulin Human Lispro (Insulin Lispro 100 Unit/Ml 3 Ml Vial) 0 unit SUBCUT QIDACHS [facility]; Protocol Last Admin: 07/13/22 21:08 Dose: 6 unit Documented By: PANFILO Isosorbide Mononitrate (Isosorbide Mononitrate 30 Mg Tab.Er.24h) 30 mg PO DAILY [facility]; Protocol Lisinopril (Lisinopril 2.5 Mg Tablet) 2.5 mg PO DAILY [facility]; Protocol Loratadine (Loratadine 10 Mg Tablet) 10 mg PO DAILY [facility] Melatonin (Melatonin 3 Mg Tablet) 3 mg PO BEDTIME PRN PRN Reason: Insomnia Metoprolol Succinate (Metoprolol Succinate Er 50 Mg Tab.Er.24h) 150 mg PO BEDTIME [facility]; Protocol Last Admin: 07/13/22 21:06 Dose: 150 mg Documented By: PANFILO Omeprazole (Omeprazole 40 Mg Capsule.) 40 mg PO DAILY@0630 [facility] Last Admin: 07/14/22 06:34 Dose: 40 mg Documented By: PANFILO Ondansetron HCl (Ondansetron Hcl 4 Mg/2 Ml Vial) 4 mg IVPUSH Q8H PRN PRN Reason: Nausea and Vomiting Ondansetron HCl (Ondansetron Odt 4 Mg Tab.Rapdis) 4 mg TRANSLINGU Q8H PRN PRN Reason: Nausea and Vomiting Oxycodone HCl (Oxycodone Hcl Immed Release 5 Mg Tablet) 5 mg PO Q4H PRN PRN Reason: Pain, Severe (Pain Scale 7-10) Last Admin: 07/14/22 04:23 Dose: 5 mg Documented By: PANFILO Pharmacy Consult (Consult Rx Perform Med Rec) 1 each MISCELLANE ONCE PRN PRN Reason: Consult order Polyethylene Glycol (Polyethylene Glycol 3350 17 Gm Powd.Pack) 17 gm PO DAILY [facility] Senna/Docusate Sodium (Sennosides/Docusate Sodium Tablet) 1 tab PO BEDTIME [facility] Last Admin: 07/13/22 22:29 Dose: Not Given Documented By: PANFILO Non-Admin Reason: Patient Refused Sertraline HCl (Sertraline Hcl 100 Mg Tablet) 100 mg PO DAILY [facility] Sodium Chloride (0.9 % Sodium Chloride Flush 3 Ml Syringe) 3 ml IVFLUSH QSHIFT [facility] Last Admin: 07/14/22 02:25 Dose: Not Given Documented By: PNAFILO Non-Admin Reason: No Access Tramadol HCl (Tramadol Hcl 50 Mg Tablet) 50 mg PO BID PRN PRN Reason: Breakthrough Pain, Moderate Last Admin: 07/13/22 23:07 Dose: 50 mg Documented By: PANFILO Trazodone HCl (Trazodone Hcl 50 Mg Tablet) 50 mg PO BEDTIME [facility] Last Admin: 07/13/22 21:07 Dose: 50 mg Documented By: PANFILO Verapamil HCl (Verapamil Hcl Sr 100 Mg Cap24h.Pct) 100 mg PO BEDTIME [facility]; Protocol Last Admin: 07/13/22 21:07 Dose: 100 mg Documented By: PANFILO Vitamin D (Cholecalciferol (Vitamin D3) 25 Mcg Tablet) 50 mcg PO DAILY [facility] Labs Labs: Laboratory Results - last 24 hr 07/13/22 07/13/22 07/14/22 16:50 21:01 02:36 POC Glucose 138 H 257 H C. 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 1- Abdominal pain due to recently diagnosed drug induced pancreatitis- believed related to Keytruda -no pain but has diarrhea--check cdif, stool panel -CT abd/pelvis 07/10 showed mild pancreatitis -Lipase 260 on 07/12 improved from 1723 during last admission -advance diet, oral pain med 2- Uncontrolled insulin dependent type 2 diabetes, worsening blood sugars related to pancreatitis and dietary indiscretion -Continue lantus? and add insulin sliding scale monitor blood sugars q.i.d., will provide teachings to check blood sugar and administer insulin will request for VNA services prior to discharge 3-Diarrhea likely related to [employer] food, since patient was not eating well in last few days and had large meal yesterday evening , no fevers no chills no other family member sick, COVID-19 negative, recent CT abdomen and pelvis 927 showed no acute pathology, will send stool studies check C diff. will hold stool softeners 4.Hx bilateral pulmonary embolism -Continue apixiban. 5-HTN- controlled -Continue home meds 5-CAD s/p CABG x2 last year/HLD- no anginal chest pain, will resume home medications metorpolol/atorvastatin/isosorbide -Follow outpt with Dr. Hernandez 6-Depression/anxiety -Continue sertraline, trazadone, and alprazolam, 7-Chronic normocytic anemia- follow CBC 8. metastatic lung CA outpatient follow-up with Dr. Perdue DVT prophylaxis- continue apixiban Full code Need for inaptient: hyperglycemia need blood sugar monitoring, and persistent abdominal pain due to pancreatitis needs IV fluids and iv pain management. Get PT eval for possible placement given multiple admission within a week Quality Stroke Does the patient have a stroke diagnosis?: No VTE Prior VTE?: No VTE Risk Level:: Medical - moderate - high VTE Device Contraindication: Treatment Not Indicated VTE Drug Contraindication: N/A - Med Ordered
[2022-07-14] MEDS: Cholecalciferol (Vitamin D3) 25 MCG TABLET 50 MCG PO (09:13)
[2022-07-14] MEDS: Folic Acid 1 MG TABLET PO (09:15)
[2022-07-14] MEDS: lisinopriL 2.5 MG TABLET PO (09:15)
[2022-07-14] MEDS: Apixaban 5 MG TABLET PO ×2 (09:15→20:55)
[2022-07-14] MEDS: Sertraline HCL 100 MG TABLET PO (09:15)
[2022-07-14] MEDS: Isosorbide Mononitrate 30 MG TAB.ER.24H PO (09:15)
[2022-07-14] MEDS: Loratadine 10 MG TABLET PO (09:15)
[2022-07-14 09:20] LABS: Glucose, Whole Blood 223 mg/dL (60-115)
[2022-07-14] MEDS: Insulin Lispro 100 UNIT/ML 3 ML VIAL SUBCUT ×3 (09:24→20:56)
[2022-07-14 10:32] LABS: Adenovirus F 40/41 Not Detected (Not Detect.); Astrovirus Not Detected (Not Detect.); Campylobacter Not Detected (Not Detect.); Cryptosporidium Not Detected (Not Detect.); Cyclospora cayetanensis Not Detected (Not Detect.); E. coli EAEC Not Detected (Not Detect.); E. coli EPEC Not Detected (Not Detect.); E. coli ETEC Not Detected (Not Detect.); E. coli STEC Not Detected (Not Detect.); Entamoeba histolytica Not Detected (Not Detect.); Giardia lamblia Not Detected (Not Detect.); Norovirus GI/GII Not Detected (Not Detect.); Plesiomonas shigelloides Not Detected (Not Detect.); Rotavirus A Not Detected (Not Detect.); Salmonella Not Detected (Not Detect.); Sapovirus Not Detected (Not Detect.); Shigella sp./EIEC Not Detected (Not Detect.); Vibrio Not Detected (Not Detect.); Vibrio Cholerae Not Detected (Not Detect.); Yersinia enterocolitica Not Detected (Not Detect.)
[2022-07-14 11:17] LABS: Glucose, Whole Blood 195 mg/dL (60-115)
[2022-07-14 15:32] LABS: Glucose, Whole Blood 116 mg/dL (60-115)
[2022-07-14] MEDS: traMADoL HCL 50 MG TABLET PO (16:50)
[2022-07-14] MEDS: 0.9 % Sodium Chloride 1,000 ML 125 ML IVCONT (18:40)
[2022-07-14 19:48] LABS: Glucose, Whole Blood 201 mg/dL (60-115)
[2022-07-14] MEDS: 0.9 % Sodium Chloride Flush 3 ML SYRINGE IVFLUSH (20:52)
[2022-07-14] MEDS: Atorvastatin Calcium 80 MG TABLET PO (20:55)
[2022-07-14] MEDS: Acetaminophen 325 MG TABLET 650 MG PO (20:55)
[2022-07-14] MEDS: traZODone HCL 50 MG TABLET PO (20:55)
[2022-07-14] MEDS: Insulin Glargine,Hum.rec.anlog 100 UNIT/ML 10 ML VIAL 20 UNIT SUBCUT (20:56)
--- NOTE | 2022-07-14 22:21 | PC.NURSE ---
pt BP @19.:09 93/51, HR 87, hold metoprolol 150mg, verapamil 100 mg. hold. FYI. will continue to monitor BP.
[2022-07-15] VITALS (7 sets, daily range): BP systolic 98–125; BP diastolic 48–59; PULSE 88–113; RESP 15–18; TEMP 36.1–36.9; O2SAT 95–99
[2022-07-15] MEDS: 0.9 % Sodium Chloride 1,000 ML 125 ML IVCONT ×3 (01:37→17:32)
[2022-07-15] MEDS: Ondansetron ODT 4 MG TAB.RAPDIS TRANSLINGU ×3 (02:03→21:14)
[2022-07-15] MEDS: oxyCODONE HCl Immed Release 5 MG TABLET PO ×3 (02:03→21:14)
[2022-07-15] MEDS: Omeprazole 40 MG CAPSULE.DR PO (05:57)
[2022-07-15 08:12] LABS: Glucose, Whole Blood 149 mg/dL (60-115)
[2022-07-15] MEDS: lisinopriL 2.5 MG TABLET PO (08:58)
[2022-07-15] MEDS: Cholecalciferol (Vitamin D3) 25 MCG TABLET 50 MCG PO (08:58)
[2022-07-15] MEDS: Sertraline HCL 100 MG TABLET PO (08:58)
[2022-07-15] MEDS: Folic Acid 1 MG TABLET PO (08:58)
[2022-07-15] MEDS: Apixaban 5 MG TABLET PO ×2 (08:58→21:08)
[2022-07-15] MEDS: Loratadine 10 MG TABLET PO (08:58)
[2022-07-15] MEDS: Isosorbide Mononitrate 30 MG TAB.ER.24H PO (08:59)
[2022-07-15] MEDS: ALPRAZolam 0.25 MG TABLET PO ×2 (09:07→16:20)
--- NOTE | 2022-07-15 10:18 | P.PNIM_ITS ---
Subjective Subjective Date of Service: 07/15/22 Review of Systems General headache , no fever chills. CVS no chest pain, no palpitation. Respiratory no cough no sob. Gastrointestinal no vomiting, abdominal pain As per HPI no urgency no frequency Physical Exam Vital Signs: Vital Signs: Last Vital Signs Temp 98.1 F 07/15/22 07:26 Pulse 98 07/15/22 07:26 Resp 16 07/15/22 07:26 BP 110/52 L 07/15/22 07:26 Pulse Ox 97 07/15/22 07:26 O2 Del Method 07/15/22 07:26 BMI result Body Mass Index 33.8 Const: Other: General awake alert x3 resting comfortably, in no acute distress. oral mucosa moist no lesions HEENT PERRLA Neck supple no JVD. CVS regular rate rhythm, Respiratory lungs clear to auscultation, no respiratory distress, no wheeze, no rhonchi. Gastrointestinal abdomen soft, mild epigastric and left lower quadrant discomfort with palpation, no guarding, no rigidity bowel sounds audible. Extremities no edema. Neuro nonfocal ,moving all 4 extremity, speech clear. Skin no rash psych appropriate affect Objective Data Active Medications Acetaminophen (Acetaminophen 325 Mg Tablet) 650 mg PO Q6H PRN PRN Reason: Pain, Mild (Pain Scale 1-3) Acetaminophen (Acetaminophen 325 Mg Tablet) 650 mg PO BID [facility] Last Admin: 07/15/22 09:54 Dose: Not Given Documented By: JACKI Non-Admin Reason: Patient Refused Al Hydroxide/Mg Hydroxide (Magnesium Hydrox/Alum Hydrox 30 Ml Oral.Susp) 15 ml PO Q4H PRN PRN Reason: heartburn Last Admin: 07/14/22 03:26 Dose: 15 ml Documented By: PANFILO Alprazolam (Alprazolam 0.25 Mg Tablet) 0.25 mg PO TID PRN PRN Reason: Anxiety Apixaban (Apixaban 5 Mg Tablet) 5 mg PO BID [facility] Last Admin: 07/15/22 08:58 Dose: 5 mg Documented By: JACKI Atorvastatin Calcium (Atorvastatin Calcium 80 Mg Tablet) 80 mg PO BEDTIME [facility] Last Admin: 07/14/22 20:55 Dose: 80 mg Documented By: PANFILO Clotrimazole (Clotrimazole 1 % Vaginal Cream 45 Gm Tube) 1 appl VAGINAL BEDTIME PRN PRN Reason: VAGINAL ITCH Dextrose (Dextrose 50 % 25 Gm/50 Ml Syringe) 25 gm IVPUSH Q15M PRN; Protocol PRN Reason: per Hypoglycemia Standing Ord. Ferrous Sulfate (Ferrous Sulfate 324 Mg Tablet.Dr) 324 mg PO Q2D [facility] Last Admin: 07/15/22 10:11 Dose: Not Given Documented By: JACKI Non-Admin Reason: Patient Refused Folic Acid (Folic Acid 1 Mg Tablet) 1 mg PO DAILY [facility] Last Admin: 07/15/22 08:58 Dose: 1 mg Documented By: JACKI Glucose (Glucose Gel 15 Gm Gel..Gram.) 15 gm PO Q15M PRN; Protocol PRN Reason: per Hypoglycemia Standing Ord. Hydromorphone HCl (Hydromorphone Hcl 0.5 Mg/0.5 Ml Syringe) 0.5 mg IVPUSH Q4H PRN; Protocol PRN Reason: Pain, Severe (Pain Scale 7-10) Sodium Chloride (Ns) 1,000 mls @ 125 mls/hr IVCONT .Q8H [facility] Last Admin: 07/15/22 10:09 Dose: 125 mls/hr Documented By: JACKI Insulin Glargine (Insulin Glargine,Hum.Rec.Anlog 100 Unit/Ml 10 Ml Vial) 20 unit SUBCUT BEDTIME [facility] Last Admin: 07/14/22 20:56 Dose: 20 unit Documented By: PANFILO Insulin Human Lispro (Insulin Lispro 100 Unit/Ml 3 Ml Vial) 0 unit SUBCUT QIDACHS [facility]; Protocol Last Admin: 07/15/22 08:26 Dose: Not Given Documented By: JACKI Non-Admin Reason: No Insulin Coverage Isosorbide Mononitrate (Isosorbide Mononitrate 30 Mg Tab.Er.24h) 30 mg PO DAILY [facility]; Protocol Last Admin: 07/15/22 08:59 Dose: 30 mg Documented By: JACKI Lisinopril (Lisinopril 2.5 Mg Tablet) 2.5 mg PO DAILY [facility]; Protocol Last Admin: 07/15/22 08:58 Dose: 2.5 mg Documented By: JACKI Loperamide HCl (Loperamide Hcl 2 Mg Capsule) 2 mg PO Q6H PRN PRN Reason: Diarrhea Loratadine (Loratadine 10 Mg Tablet) 10 mg PO DAILY [facility] Last Admin: 07/15/22 08:58 Dose: 10 mg Documented By: JACKI Melatonin (Melatonin 3 Mg Tablet) 3 mg PO BEDTIME PRN PRN Reason: Insomnia Metoprolol Succinate (Metoprolol Succinate Er 50 Mg Tab.Er.24h) 150 mg PO BEDTIME [facility]; Protocol Last Admin: 07/14/22 22:11 Dose: Not Given Documented By: PANFILO Non-Admin Reason: low BP Omeprazole (Omeprazole 40 Mg Capsule.Dr) 40 mg PO DAILY@0630 [facility] Last Admin: 07/15/22 05:57 Dose: 40 mg Documented By: PANFILO Ondansetron HCl (Ondansetron Hcl 4 Mg/2 Ml Vial) 4 mg IVPUSH Q8H PRN PRN Reason: Nausea and Vomiting Ondansetron HCl (Ondansetron Odt 4 Mg Tab.Rapdis) 4 mg TRANSLINGU Q8H PRN PRN Reason: Nausea and Vomiting Last Admin: 07/15/22 09:07 Dose: 4 mg Documented By: JACKI Oxycodone HCl (Oxycodone Hcl Immed Release 5 Mg Tablet) 5 mg PO Q4H PRN PRN Reason: Pain, Severe (Pain Scale 7-10) Last Admin: 07/15/22 09:07 Dose: 5 mg Documented By: JACKI Pharmacy Consult (Consult Rx Perform Med Rec) 1 each MISCELLANE ONCE PRN PRN Reason: Consult order Polyethylene Glycol (Polyethylene Glycol 3350 17 Gm Powd.Pack) 17 gm PO DAILY [facility] Last Admin: 07/15/22 09:54 Dose: Not Given Documented By: JACKI Non-Admin Reason: Patient Refused Senna/Docusate Sodium (Sennosides/Docusate Sodium Tablet) 1 tab PO BEDTIME [facility] Last Admin: 07/14/22 22:11 Dose: Not Given Documented By: PANFILO Non-Admin Reason: Diarrhea Sertraline HCl (Sertraline Hcl 100 Mg Tablet) 100 mg PO DAILY [facility] Last Admin: 07/15/22 08:58 Dose: 100 mg Documented By: JACKI Sodium Chloride (0.9 % Sodium Chloride Flush 3 Ml Syringe) 3 ml IVFLUSH QSHIFT [facility] Last Admin: 07/15/22 09:38 Dose: Not Given Documented By: JACKI Non-Admin Reason: IV Running Tramadol HCl (Tramadol Hcl 50 Mg Tablet) 50 mg PO BID PRN PRN Reason: Breakthrough Pain, Moderate Last Admin: 07/14/22 16:50 Dose: 50 mg Documented By: LAQUITA Trazodone HCl (Trazodone Hcl 50 Mg Tablet) 50 mg PO BEDTIME [facility] Last Admin: 07/14/22 20:55 Dose: 50 mg Documented By: PANFILO Verapamil HCl (Verapamil Hcl Sr 100 Mg Cap24h.Pct) 100 mg PO BEDTIME [facility]; Pro tocol Last Admin: 07/14/22 22:13 Dose: Not Given Documented By: PANFILO Non-Admin Reason: [id number]/57 [id number] Vitamin D (Cholecalciferol (Vitamin D3) 25 Mcg Tablet) 50 mcg PO DAILY [facility] Last Admin: 07/15/22 08:58 Dose: 50 mcg Documented By: JACKI Labs Labs: Laboratory Results - last 24 hr 07/14/22 07/14/22 07/14/22 02:36 10:59 15:22 POC Glucose 195 H 116 H Stl C. cayetanensis PCR Not Detected Stool Rotavirus A PCR Not Detected Stl Adenov F 40/41 PCR Not Detected Stool Astrovirus (PCR) Not Detected Stool Campylobacter PCR Not Detected Stool Cryptosporidium PCR Not Detected Stl Sh Tox Pr E STEC PCR Not Detected Stool E coli O157 PCR Not applicable Stl Enterotoxigenic E PCR Not Detected Stool EPEC (PCR) Not Detected Stool EAEC (PCR) Not Detected Stl E. histolytica PCR Not Detected Stool Giardia Lamblia PCR Not Detected Stl P. shigelloides PCR Not Detected Stool Salmonella PCR Not Detected Stool Sapovirus (PCR) Not Detected Stl Shigella/EIEC PCR Not Detected St Y.enterocolitica PCR Not Detected Stool Vibrio (PCR) Not Detected Stl Vibrio cholerae PCR Not Detected Stl Norovirus GI/GII PCR Not Detected 07/14/22 07/15/22 19:12 07:29 POC Glucose 201 H 149 H Stl C. cayetanensis PCR Stool Rotavirus A PCR Stl Adenov F 40/41 PCR Stool Astrovirus (PCR) Stool Campylobacter PCR Stool Cryptosporidium PCR Stl Sh Tox Pr E STEC PCR Stool E coli O157 PCR Stl Enterotoxigenic E PCR Stool EPEC (PCR) Stool EAEC (PCR) Stl E. histolytica PCR Stool Giardia Lamblia PCR Stl P. 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 1- Abdominal pain due to recently diagnosed drug induced pancreatitis- believed related to Keytruda -no pain -CT abd/pelvis 07/10 showed mild pancreatitis -Lipase 260 on 07/12 improved from 1723 during last admission -advance diet, oral pain med 2- Uncontrolled insulin dependent type 2 diabetes, worsening blood sugars related to pancreatitis and dietary indiscretion -Continue lantus? and insulin sliding scale monitor blood sugars q.i.d., will provide teachings to check blood sugar and administer insulin will request for VNA services prior to discharge 3-Diarrhea likely related to [employer] food, since patient was not eating well in last few days and had large meal yesterday evening , no fevers no chills no other family member sick, COVID-19 negative, recent CT abdomen and pelvis 927 showed no acute pathology, will send stool studies negative C diff. Imodium PRN 4.Hx bilateral pulmonary embolism -Continue apixiban. 5-HTN- controlled -Continue home meds 5-CAD s/p CABG x2 last year/HLD- no anginal chest pain, will resume home medications metorpolol/atorvastatin/isosorbide -Follow outpt with Dr. Hernandez 6-Depression/anxiety -Continue sertraline, trazadone, and alprazolam, 7-Chronic normocytic anemia- follow CBC 8. metastatic lung CA outpatient follow-up with Dr. Perdue 9. Anxiety--Ativan DVT prophylaxis- continue apixiban Full code Need for inaptient: hyperglycemia need blood sugar monitoring, and persistent abdominal pain due to pancreatitis needs IV fluids and iv pain management. Get PT eval for possible placement given multiple admission within a week Quality Stroke Does the patient have a stroke diagnosis?: No VTE Prior VTE?: No VTE Risk Level:: Medical - moderate - high VTE Device Contraindication: Treatment Not Indicated VTE Drug Contraindication: N/A - Med Ordered
[2022-07-15] MEDS: Loperamide HCl 2 MG CAPSULE PO ×2 (10:39→16:18)
--- NOTE | 2022-07-15 11:43 | MHC.CM.PN ---
PT LIVES WITH HER AND IS INDEPENDENT WITH CARE PT HAS NO SERVICES AND HAS A WALKER FOR DME HCP ON FILE PCP: KALYANI DARLING [facility] X 4 IMM DELIVERED CURRENT DC PLAN IS HOME WITH NO SERVICES FAMILY TO TRANSPORT
[2022-07-15 12:00] LABS: Glucose, Whole Blood 183 mg/dL (60-115)
[2022-07-15] MEDS: Insulin Lispro 100 UNIT/ML 3 ML VIAL SUBCUT ×2 (12:14→16:48)
[2022-07-15] MEDS: Metoprolol Succinate ER 50 MG TAB.ER.24H 150 MG PO (16:44)
--- NOTE | 2022-07-15 16:46 | PC.NURSE ---
HR noted to be 110's to 120's after ambulation, noted beta sahleigh held overnight for low BP- Irena COHN made aware, ok to give 2100 dose for now. Will cont to monitor.
[2022-07-15 16:54] LABS: Glucose, Whole Blood 152 mg/dL (60-115)
[2022-07-15 19:56] LABS: Glucose, Whole Blood 123 mg/dL (60-115)
[2022-07-15] MEDS: Sennosides/Docusate Sodium TABLET 1 TAB PO (21:09)
[2022-07-15] MEDS: traZODone HCL 50 MG TABLET PO (21:09)
[2022-07-15] MEDS: Atorvastatin Calcium 80 MG TABLET PO (21:09)
[2022-07-15] MEDS: Insulin Glargine,Hum.rec.anlog 100 UNIT/ML 10 ML VIAL 20 UNIT SUBCUT (21:11)
[2022-07-16] VITALS (7 sets, daily range): BP systolic 96–138; BP diastolic 50–65; PULSE 73–84; RESP 16–18; TEMP 36.2–36.8; O2SAT 97–99
[2022-07-16] MEDS: 0.9 % Sodium Chloride 1,000 ML 125 ML IVCONT ×3 (02:43→16:58)
[2022-07-16] MEDS: oxyCODONE HCl Immed Release 5 MG TABLET PO ×2 (03:19→19:25)
[2022-07-16] MEDS: traMADoL HCL 50 MG TABLET PO ×2 (03:19→14:01)
[2022-07-16] MEDS: Omeprazole 40 MG CAPSULE.DR PO (05:46)
[2022-07-16 07:35] LABS: Glucose, Whole Blood 108 mg/dL (60-115)
[2022-07-16] MEDS: Sertraline HCL 100 MG TABLET PO (08:31)
[2022-07-16] MEDS: Cholecalciferol (Vitamin D3) 25 MCG TABLET 50 MCG PO (08:32)
[2022-07-16] MEDS: Loratadine 10 MG TABLET PO (08:32)
[2022-07-16] MEDS: Acetaminophen 325 MG TABLET 650 MG PO ×2 (08:32→20:27)
[2022-07-16] MEDS: Folic Acid 1 MG TABLET PO (08:32)
[2022-07-16] MEDS: Isosorbide Mononitrate 30 MG TAB.ER.24H PO (08:32)
[2022-07-16] MEDS: lisinopriL 2.5 MG TABLET PO (08:32)
[2022-07-16] MEDS: Apixaban 5 MG TABLET PO (08:32)
[2022-07-16] MEDS: Loperamide HCl 2 MG CAPSULE PO ×2 (08:34→17:01)
[2022-07-16 11:16] LABS: Hematocrit 28.4 % (37.0-47.0); Hemoglobin 8.8 g/dl (12.0-16.0); Mean Corpuscular Hemoglobin 29.8 pg (27.0-33.0); Mean Corpuscular Volume 96.3 fL (80.0-98.0); Mean Platelet Volume 8.7 fL (9.4-12.3); Platelet Count 265 X10*3/uL (160-400); Red Blood Count 2.95 X10*6/uL (4.20-5.50); Red Cell Distribution Width 16.2 % (11.0-16.0); White Blood Count 7.9 X10*3/uL (4.8-10.8)
[2022-07-16 11:22] LABS: Glucose, Whole Blood 124 mg/dL (60-115)
[2022-07-16 11:43] LABS: Anion Gap 15 (12-20); Blood Urea Nitrogen 6 mg/dL (9-16); Carbon Dioxide 22 mmol/L (22-29); Chloride 111 mmol/L (96-108); Creatinine Clr Calc Pharmacy 63.5; Estimated Glomerular Filt Rate > 60; Glucose Random 135 mg/dL (60-115); Lipase 93 U/L (8-78); Potassium 3.6 mmol/L (3.3-5.1); Sodium 144 mmol/L (135-145)
--- NOTE | 2022-07-16 12:11 | P.PNIM_ITS ---
Subjective Subjective Date of Service: 07/16/22 Interval History: F/u on abdominal pain, diarrhea, uncontrolled diabetes interval history: persistent diarreha, abdominal pain and weak Review of Systems diarrhea, no fever, abd pain, Physical Exam Vital Signs: Vital Signs: Last Vital Signs Temp 97.2 F 07/16/22 11:12 Pulse 75 07/16/22 11:12 Resp 18 07/16/22 11:12 BP 100/59 L 07/16/22 11:12 Pulse Ox 97 07/16/22 11:12 O2 Del Method 07/16/22 11:12 BMI result Body Mass Index 33.8 Const: Other: General: AO X 3, no acute distress Resp: CTA bilateral CVS: S1,S2,RRR GI: +BS, Non specific tenderness, no distention Skin: No rash Neuro: motor grossly intact Psych: appropriate affect Objective Data Active Medications Acetaminophen (Acetaminophen 325 Mg Tablet) 650 mg PO Q6H PRN PRN Reason: Pain, Mild (Pain Scale 1-3) Acetaminophen (Acetaminophen 325 Mg Tablet) 650 mg PO BID [facility] Last Admin: 07/16/22 08:32 Dose: 650 mg Documented By: RUPINDER Al Hydroxide/Mg Hydroxide (Magnesium Hydrox/Alum Hydrox 30 Ml Oral.Susp) 15 ml PO Q4H PRN PRN Reason: heartburn Last Admin: 07/14/22 03:26 Dose: 15 ml Documented By: PANFILO Alprazolam (Alprazolam 0.25 Mg Tablet) 0.25 mg PO TID PRN PRN Reason: Anxiety Last Admin: 07/15/22 16:20 Dose: 0.25 mg Documented By: JACKI Apixaban (Apixaban 5 Mg Tablet) 5 mg PO BID [facility] Last Admin: 07/16/22 08:32 Dose: 5 mg Documented By: RUPINDER Atorvastatin Calcium (Atorvastatin Calcium 80 Mg Tablet) 80 mg PO BEDTIME [facility] Last Admin: 07/15/22 21:09 Dose: 80 mg Documented By: NIDHI Clotrimazole (Clotrimazole 1 % Vaginal Cream 45 Gm Tube) 1 appl VAGINAL BEDTIME PRN PRN Reason: VAGINAL ITCH Dextrose (Dextrose 50 % 25 Gm/50 Ml Syringe) 25 gm IVPUSH Q15M PRN; Protocol PRN Reason: per Hypoglycemia Standing Ord. Ferrous Sulfate (Ferrous Sulfate 324 Mg Tablet.Dr) 324 mg PO Q2D [facility] Last Admin: 07/15/22 10:11 Dose: Not Given Documented By: JACKI Non-Admin Reason: Patient Refused Folic Acid (Folic Acid 1 Mg Tablet) 1 mg PO DAILY [facility] Last Admin: 07/16/22 08:32 Dose: 1 mg Documented By: RUPINDER Glucose (Glucose Gel 15 Gm Gel..Gram.) 15 gm PO Q15M PRN; Protocol PRN Reason: per Hypoglycemia Standing Ord. Hydromorphone HCl (Hydromorphone Hcl 0.5 Mg/0.5 Ml Syringe) 0.5 mg IVPUSH Q4H PRN; Protocol PRN Reason: Pain, Severe (Pain Scale 7-10) Sodium Chloride (Ns) 1,000 mls @ 125 mls/hr IVCONT .Q8H [facility] Last Admin: 07/16/22 08:35 Dose: 125 mls/hr Documented By: RUPINDER Insulin Glargine (Insulin Glargine,Hum.Rec.Anlog 100 Unit/Ml 10 Ml Vial) 20 unit SUBCUT BEDTIME [facility] Last Admin: 07/15/22 21:11 Dose: 20 unit Documented By: NIDHI Insulin Human Lispro (Insulin Lispro 100 Unit/Ml 3 Ml Vial) 0 unit SUBCUT QIDACHS [facility]; Protocol Last Admin: 07/16/22 11:40 Dose: Not Given Documented By: RUPINDER Non-Admin Reason: No Insulin Coverage Isosorbide Mononitrate (Isosorbide Mononitrate 30 Mg Tab.Er.24h) 30 mg PO DAILY [facility]; Protocol Last Admin: 07/16/22 08:32 Dose: 30 mg Documented By: RUPINDER Lisinopril (Lisinopril 2.5 Mg Tablet) 2.5 mg PO DAILY [facility]; Protocol Last Admin: 07/16/22 08:32 Dose: 2.5 mg Documented By: RUPINDER Loperamide HCl (Loperamide Hcl 2 Mg Capsule) 2 mg PO Q6H PRN PRN Reason: Diarrhea Last Admin: 07/16/22 08:34 Dose: 2 mg Documented By: RUPINDER Loratadine (Loratadine 10 Mg Tablet) 10 mg PO DAILY [facility] Last Admin: 07/16/22 08:32 Dose: 10 mg Documented By: RUPINDER Melatonin (Melatonin 3 Mg Tablet) 3 mg PO BEDTIME PRN PRN Reason: Insomnia Metoprolol Succinate (Metoprolol Succinate Er 50 Mg Tab.Er.24h) 150 mg PO BEDTIME [facility]; Protocol Last Admin: 07/15/22 16:44 Dose: 150 mg Documented By: JACKI Omeprazole (Omeprazole 40 Mg Capsule.Dr) 40 mg PO DAILY@0630 [facility] Last Admin: 07/16/22 05:46 Dose: 40 mg Documented By: NIDHI Ondansetron HCl (Ondansetron Hcl 4 Mg/2 Ml Vial) 4 mg IVPUSH Q8H PRN PRN Reason: Nausea and Vomiting Ondansetron HCl (Ondansetron Odt 4 Mg Tab.Rapdis) 4 mg TRANSLINGU Q8H PRN PRN Reason: Nausea and Vomiting Last Admin: 07/15/22 21:14 Dose: 4 mg Documented By: NIDHI Oxycodone HCl (Oxycodone Hcl Immed Release 5 Mg Tablet) 5 mg PO Q4H PRN PRN Reason: Pain, Severe (Pain Scale 7-10) Last Admin: 07/16/22 03:19 Dose: 5 mg Documented By: NIDHI Pharmacy Consult (Consult Rx Perform Med Rec) 1 each MISCELLANE ONCE PRN PRN Reason: Consult order Polyethylene Glycol (Polyethylene Glycol 3350 17 Gm Powd.Pack) 17 gm PO DAILY [facility] Last Admin: 07/16/22 08:33 Dose: Not Given Documented By: RUPINDER Non-Admin Reason: diarrhea Senna/Docusate Sodium (Sennosides/Docusate Sodium Tablet) 1 tab PO BEDTIME [facility] Last Admin: 07/15/22 21:09 Dose: 1 tab Documented By: NIDHI Sertraline HCl (Sertraline Hcl 100 Mg Tablet) 100 mg PO DAILY [facility] Last Admin: 07/16/22 08:31 Dose: 100 mg Documented By: RUPINDER Sodium Chloride (0.9 % Sodium Chloride Flush 3 Ml Syringe) 3 ml IVFLUSH QSHIFT [facility] Last Admin: 07/16/22 08:31 Dose: Not Given Documented By: RUPINDER Non-Admin Reason: IV Running Tramadol HCl (Tramadol Hcl 50 Mg Tablet) 50 mg PO BID PRN PRN Reason: Breakthrough Pain, Moderate Last Admin: 07/16/22 03:19 Dose: 50 mg Documented By: NIDHI Trazodone HCl (Trazodone Hcl 50 Mg Tablet) 50 mg PO BEDTIME [facility] Last Admin: 07/15/22 21:09 Dose: 50 mg Documented By: NIDHI Verapamil HCl (Verapamil Hcl Sr 100 Mg Cap24h.Pct) 100 mg PO BEDTIME [facility]; Protocol Last Admin: 07/15/22 21:09 Dose: 100 mg Documented By: NIDHI Vitamin D (Cholecalciferol (Vitamin D3) 25 Mcg Tablet) 50 mcg PO DAILY [facility] Last Admin: 07/16/22 08:32 Dose: 50 mcg Documented By: RUPINDER Labs CBC & Chem 7: 07/16/22 11:07 07/16/22 11:07 Labs: Laboratory Results - last 24 hr 07/15/22 07/15/22 07/16/22 16:30 19:00 07:15 MCV MCH MCHC RDW Plt Count MPV Absolute Nucleated RBC Nucleated RBC % (auto) Anion Gap Estim Creat Clear Calc Estimated GFR POC Glucose 152 H 123 H 108 Random Glucose Calcium Lipase 07/16/22 07/16/22 07/16/22 11:07 11:07 11:16 MCV 96.3 MCH 29.8 MCHC 31.0 RDW 16.2 H Plt Count 265 MPV 8.7 L Absolute Nucleated RBC 0.000 Nucleated RBC % (auto) 0.0 Anion Gap 15 Estim Creat Clear Calc 63.5 Estimated GFR > 60 POC Glucose 124 H Random Glucose 135 H Calcium 7.0 L D Lipase 93 H Assessment and Plan (1) Acute pancreatitis: Status: Acute (2) Abdominal pain: Status: Acute (3) Acute pancreatitis: Status: Acute Plan 77-year-old female with history significant for severe aortic stenosis, Vicente's esophagus, COPD, CAD status post CABG x2, chronic normocytic anemia, uncontrolled insulin-dependent type 2 diabetes, history of bilateral pulmonary embolism anticoagulated with apixaban, 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 1- Abdominal pain and diarrhea at this point etiology is not clear. She had drug induced pancreatitis- believed related to Keytruda, but clinically this has resolved, lipase is down to 93. -CT abd/pelvis 07/10 showed mild pancreatitis -Lipase 93 on 07/16 improved from 1723 during last admission -pain meds. -discussed with Dr. Perdue, there is concern for possible autoimmune colitis related to Keytruda also so will do CT of abdomen, GI consult 2- Uncontrolled insulin dependent type 2 diabetes--much better control BS 124 now -Continue lantus? and insulin sliding scale monitor blood sugars q.i.d. 3-Diarrhea--C dif negative, concer of colitis, CT of abdomen and GI consult 4.Hx bilateral pulmonary embolism -Continue apixiban. 5-HTN- controlled -Continue home meds 5-CAD s/p CABG x2 last year/HLD- no anginal chest pain, will resume home medications metorpolol/atorvastatin/isosorbide -Follow outpt with Dr. Hernandez 6-Depression/anxiety -Continue sertraline, trazadone, and alprazolam, 7-Chronic normocytic anemia- follow CBC 8. metastatic lung CA outpatient follow-up with Dr. Perdue 9. Anxiety--Xanax DVT prophylaxis- continue apixiban Full code Need for inaptient: abdominal pain, diarrhea, ? colitis, need for hydration and further testing Get PT eval for possible placement given multiple admission within a week Quality Stroke Does the patient have a stroke diagnosis?: No VTE Prior VTE?: No VTE Risk Level:: Medical - moderate - high VTE Device Contraindication: Treatment Not Indicated VTE Drug Contraindication: N/A - Med Ordered
--- NOTE | 2022-07-16 14:33 | MHC.CM.PN ---
EMR REVIEWED . PATIENT NOT CLEARED FOR DC TODAY, PLAN REMAINS HOME, NO SERVICES.
[2022-07-16 15:35] LABS: Glucose, Whole Blood 145 mg/dL (60-115)
[2022-07-16] MEDS: iohexoL 350 MG/ML 100 ML INFUS..BTL IV (17:48)
[2022-07-16] MEDS: Barium Sulfate Oral (Vanilla) 450 ML ORAL.SUSP 900 ML PO (17:49)
--- NOTE | 2022-07-16 18:18 | P.CNGI_ITS ---
History of Present Illness Data of Consult Service Date: 07/16/22 Requesting physician: Eleazar Luanyu [facility] Primary Care Provider: Unknown Physician HPI Reason for consult: Chronic diarrhea ? ICI colitis This is a 76-year-old female past medical history of metastatic non-small cell lung cancer with mets to the bone with recent therapy with with pembrolizumab, SBRT ([facility]), aortic stenosis, mitral regurgitation, AAA, pulmonary embolism October 2020 on Eliquis, who is currently admitted to the hospital for persistent abdominal pain and inability to tolerate PO. She was recently admitted to the hospital last month for pancreatitis that was thought to be secondary to pembrolizumab. Pembrolizumab has since been discontinued, last dose June. This was started in April with palliative intent. Patient is currently readmitted to the hospital from her Oncologist's office for inability to manage abdominal pain at home. Describes this as sharp stabbing pain in the epigastrium that is often triggered by food. On admission, patient was found to be hyperglycemic, which was thought to be secondary to dietary indiscretion in the light of recent pancreatitis. However, she also continues to have diarrhea. This initially started 5 days ago. Patient distinctly remembers having sharp epigastric pain from pancreatitis 1st, almost 2 weeks ago, and developing diarrhea very recently. Describes mild abdominal cramping associated with the diarrhea. At baseline, she has 2 soft stools every day, now having up to 7 watery bowel movements every day. The bowel movements do not decrease with patient is on bowel rest. She also has to wake up from her sleep to go to the bathroom. Denies any blood in stool. Also denies any fevers, chills, abdominal distension. Has been tolerating bland diet without difficulty in the hospital. Workup so far shows negative GI panel, negative C diff, slowly drifting down H&H, normal renal function. Abd imaging not available from this admission. Recent endoscopy: Push enteroscopy 08/2021: Single varix in the esophagus without high-risk stigm cullen. Normal small bowel. EGD/ileocolonoscopy 03/2021: Bluish blebs in upper esophagus, a single varix and lower esophagus. Hiatal hernia. Normal duodenum and jejunum to the extent seen. Colon with excellent prep. Diverticulosis of sigmoid colon with bluish blebs. Rectum: Dilated vessels ? varices. Review of Systems Review of Systems: Yes all other systems are reviewed and are negative [facility] Past Medical History Medical History AAA (abdominal aortic aneurysm) (~2008) Adenocarcinoma of left lung (~2021) Anemia Aortic stenosis Arthritis Atypical migraine AVM (arteriovenous malformation) of colon Barretts esophagus Bilateral pulmonary embolism (~10/2020) Bleeding hemorrhoids CAD (coronary artery disease) Contusion of rib on right side COPD (chronic obstructive pulmonary disease) Depression Diabetes mellitus with hyperglycemia Diabetes mellitus with hyperglycemia, without long-term current use of insulin Essential hypertension GERD without esophagitis GIB (gastrointestinal bleeding) History of blood transfusion Irritable bowel syndrome with both constipation and diarrhea Major depression in full remission Metformin adverse reaction Mixed dyslipidemia Nonrheumatic aortic (valve) stenosis Nonrheumatic mitral valve regurgitation Normocytic anemia Obesity On anticoagulant therapy (~10/2020) On beta ashleigh at home Pulmonary nodules Restless leg syndrome Transient cerebral ischemia Vitamin B12 deficiency Family History Family History Father HTN (hypertension) Myocardial infarction Hyperlipidemia Abdominal aneurysm Mother HTN (hypertension) Myocardial infarction Hyperlipidemia Brother Alzheimer's disease Substance abuse Sister Rheumatoid arthritis Brother Rheumatoid arthritis Maternal Aunt Diabetes mellitus Lung cancer Maternal Uncle Diabetes mellitus Son No problems noted. Daughter No problems noted. Surgical History Surgical History History of bilateral breast reduction surgery (~2010) History of colonoscopy (~2018) History of coronary artery bypass graft x 2 (~2017) History of esophagogastroduodenoscopy (EGD) (~2020) History of heart artery stent (~2007) History of hysterectomy History of lung biopsy (~2021) History of total right knee replacement (TKR) (~2015) S/P excision of lipoma (~2017) Social History Social History Household Members: Spouse Housing: House Do you presently have visiting nurse or other home services: No Alcohol intake: former Patient Tobacco Use Status: Former Tobacco user Quit Date: 30 years ago Tobacco use type: Cigarette Cigarette Packs Per Day: 2 Years Smoked: 30 Smoked in Last 30 Days: No e-Cigarette/Vaping Use: Never Used Second Hand Smoke Exposure: No Use of substances other than those prescribed or required for medical reasons: No Substance Use Type: Marijuana Currently Displaying Signs/Symptoms of Drug Intoxication Withdrawal: No Have you been hit, kicked, punched, or otherwise hurt by someone within the past year? If so, by whom?: No Do you feel safe in your current relationship?: Yes Is there a partner from a previous relationship who is making you feel unsafe now?: No Are you made to feel afraid or neglected: No Islam Healthcare Practices: Hoahaoism, non-practicing Advance Directives: Yes Advance Directives on File: Yes Advance Directives Date on File: 04/27/22 Do you have thoughts of harming others: None Do you have a plan to hurt others: No Plan Recently lost weight without trying: Yes How much weight loss: 2-13 pounds Eating poorly because of decreased appetite: Yes Nutrition screen score: 4 Nutrition Risks: Acute nausea or vomiting x1 week Patient : No : No Poor oral hygiene: No service: No Current occupational status: retired 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/ [employer] Cognitive needs: No Hearing needs: No Vision needs: Yes Meds Allergies Allergy/AdvReac Type Severity Reaction Status Date / Time sulfamethoxazole Allergy Severe Rash Verified 07/02/22 16:58 [From Bactrim] adhesive tape [ADHESIVE TAPE] Allergy Intermediate BLISTERS Verified 07/02/22 16:58 clonidine Allergy makes pt Verified 07/02/22 16:58 hulusinate adhesive AdvReac Severe BLISTERS Verified 07/02/22 16:58 gabapentin AdvReac Severe hallucinati Verified 07/02/22 16:58 on morphine AdvReac Severe hallucinati Verified 07/02/22 16:58 on glue AdvReac Severe BLISTERS Uncoded 07/02/22 16:58 Active Medications: Current Medications Acetaminophen (Acetaminophen 325 Mg Tablet) 650 mg PO Q6H PRN PRN Reason: Pain, Mild (Pain Scale 1-3) Acetaminophen (Acetaminophen 325 Mg Tablet) 650 mg PO BID [facility] Last Admin: 07/16/22 08:32 Dose: 650 mg Al Hydroxide/Mg Hydroxide (Magnesium Hydrox/Alum Hydrox 30 Ml Oral.Susp) 15 ml PO Q4H PRN PRN Reason: heartburn Last Admin: 07/14/22 03:26 Dose: 15 ml Alprazolam (Alprazolam 0.25 Mg Tablet) 0.25 mg PO TID PRN PRN Reason: Anxiety Last Admin: 07/15/22 16:20 Dose: 0.25 mg Apixaban (Apixaban 5 Mg Tablet) 5 mg PO BID [facility] Last Admin: 07/16/22 08:32 Dose: 5 mg Atorvastatin Calcium (Atorvastatin Calcium 80 Mg Tablet) 80 mg PO BEDTIME [facility] Last Admin: 07/15/22 21:09 Dose: 80 mg Clotrimazole (Clotrimazole 1 % Vaginal Cream 45 Gm Tube) 1 appl VAGINAL BEDTIME PRN PRN Reason: VAGINAL ITCH Dextrose (Dextrose 50 % 25 Gm/50 Ml Syringe) 25 gm IVPUSH Q15M PRN; Protocol PRN Reason: per Hypoglycemia Standing Ord. Ferrous Sulfate (Ferrous Sulfate 324 Mg Tablet.Dr) 324 mg PO Q2D [facility] Last Admin: 07/15/22 10:11 Dose: Not Given Folic Acid (Folic Acid 1 Mg Tablet) 1 mg PO DAILY [facility] Last Admin: 07/16/22 08:32 Dose: 1 mg Glucose (Glucose Gel 15 Gm Gel..Gram.) 15 gm PO Q15M PRN; Protocol PRN Reason: per Hypoglycemia Standing Ord. Hydromorphone HCl (Hydromorphone Hcl 0.5 Mg/0.5 Ml Syringe) 0.5 mg IVPUSH Q4H PRN; Protocol PRN Reason: Pain, Severe (Pain Scale 7-10) Insulin Glargine (Insulin Glargine,Hum.Rec.Anlog 100 Unit/Ml 10 Ml Vial) 20 unit SUBCUT BEDTIME [facility] Last Admin: 07/15/22 21:11 Dose: 20 unit Insulin Human Lispro (Insulin Lispro 100 Unit/Ml 3 Ml Vial) 0 unit SUBCUT QIDACHS [facility]; Protocol Last Admin: 07/16/22 16:26 Dose: Not Given Isosorbide Mononitrate (Isosorbide Mononitrate 30 Mg Tab.Er.24h) 30 mg PO DAILY [facility]; Protocol Last Admin: 07/16/22 08:32 Dose: 30 mg Lisinopril (Lisinopril 2.5 Mg Tablet) 2.5 mg PO DAILY [facility]; Protocol Last Admin: 07/16/22 08:32 Dose: 2.5 mg Loperamide HCl (Loperamide Hcl 2 Mg Capsule) 2 mg PO Q6H PRN PRN Reason: Diarrhea Last Admin: 07/16/22 17:01 Dose: 2 mg Loratadine (Loratadine 10 Mg Tablet) 10 mg PO DAILY [facility] Last Admin: 07/16/22 08:32 Dose: 10 mg Melatonin (Melatonin 3 Mg Tablet) 3 mg PO BEDTIME PRN PRN Reason: Insomnia Metoprolol Succinate (Metoprolol Succinate Er 50 Mg Tab.Er.24h) 150 mg PO BEDTIME [facility]; Protocol Last Admin: 07/15/22 16:44 Dose: 150 mg Omeprazole (Omeprazole 40 Mg Capsule.Dr) 40 mg PO DAILY@0630 [facility] Last Admin: 07/16/22 05:46 Dose: 40 mg Ondansetron HCl (Ondansetron Hcl 4 Mg/2 Ml Vial) 4 mg IVPUSH Q8H PRN PRN Reason: Nausea and Vomiting Ondansetron HCl (Ondansetron Odt 4 Mg Tab.Rapdis) 4 mg TRANSLINGU Q8H PRN PRN Reason: Nausea and Vomiting Last Admin: 07/15/22 21:14 Dose: 4 mg Oxycodone HCl (Oxycodone Hcl Immed Release 5 Mg Tablet) 5 mg PO Q4H PRN PRN Reason: Pain, Severe (Pain Scale 7-10) Last Admin: 07/16/22 03:19 Dose: 5 mg Pharmacy Consult (Consult Rx Perform Med Rec) 1 each MISCELLANE ONCE PRN PRN Reason: Consult order Polyethylene Glycol (Polyethylene Glycol 3350 17 Gm Powd.Pack) 17 gm PO DAILY [facility] Last Admin: 07/16/22 08:33 Dose: Not Given Senna/Docusate Sodium (Sennosides/Docusate Sodium Tablet) 1 tab PO BEDTIME [facility] Last Admin: 07/15/22 21:09 Dose: 1 tab Sertraline HCl (Sertraline Hcl 100 Mg Tablet) 100 mg PO DAILY [facility] Last Admin: 07/16/22 08:31 Dose: 100 mg Sodium Chloride (0.9 % Sodium Chloride Flush 3 Ml Syringe) [facility] Admin: 07/16/22 15:18 Dose: Not Given Tramadol HCl (Tramadol Hcl 50 Mg Tablet) 50 mg PO BID PRN PRN Reason: Breakthrough Pain, Moderate Last Admin: 07/16/22 14:01 Dose: 50 mg Trazodone HCl (Trazodone Hcl 50 Mg Tablet) 50 mg PO BEDTIME [facility] Last Admin: 07/15/22 21:09 Dose: 50 mg Verapamil HCl (Verapamil Hcl Sr 100 Mg Cap24h.Pct) 100 mg PO BEDTIME [facility]; Protocol Last Admin: 07/15/22 21:09 Dose: 100 mg Vitamin D (Cholecalciferol (Vitamin D3) 25 Mcg Tablet) 50 mcg PO DAILY [facility] Last Admin: 07/16/22 08:32 Dose: 50 mcg Home Medications Medication Instructions Recorded Confirmed Last Taken Type cholecalciferol (vitamin D3) 50 50 mcg PO DAILY 10/26/20 07/13/22 07/10/22 History mcg (2,000 unit) capsule verapamil 100 mg capsule 24hr 100 mg PO BEDTIME 10/26/20 07/13/22 07/09/[address],ext.release acetaminophen 500 mg tablet 500 mg PO BID 11/07/20 07/13/22 07/10/22 History isosorbide mononitrate 30 mg 30 mg PO DAILY 10/02/21 07/13/22 07/10/22 History tablet,extended release 24 hr apixaban 5 mg tablet (Eliquis) 1 tab PO Q12H 02/19/22 07/13/22 07/10/22 History ferrous fumarate 325 mg (106 mg 325 mg PO Q2D 03/16/22 07/13/22 07/10/22 History iron) tablet sertraline 100 mg tablet (Zoloft) 100 mg PO DAILY 04/27/22 07/13/22 07/10/22 History lisinopril 2.5 mg tablet 2.5 mg PO DAILY 07/03/22 07/13/22 07/10/22 History nystatin 100,000 unit/mL oral 1 ml buccal BID 07/10/22 07/13/22 07/10/22 History suspension insulin lispro 100 unit/mL See Rx Instructions .Route .COMPLEX 07/13/22 07/13/22 Unknown History subcutaneous pen (Humalog KwikPen (U-100) Insulin) Physical Exam Vital Signs: Vital Signs: Last Vital Signs Temp 97.5 F 07/16/22 15:10 Pulse 73 07/16/22 15:10 Resp 18 07/16/22 15:10 BP 96/50 L 07/16/22 15:10 Pulse Ox 98 07/16/22 15:10 O2 Del Method 07/16/22 15:10 BMI result Body Mass Index 33.8 Gen appear: NAD HEENT: nonicteric, no cervical lymphadenopathy Chest: CTA CVS: Regular S1/S2 Abd: soft, nontender, nondistended, bowel sounds + Ext: no peripheral edema Neuro: A/Ox3, noted to move all extremities spontaneously Psych: interacting appropriately Results Labs CBC & Chem 7: 07/16/22 11:07 07/16/22 11:07 Labs: Short CBC 07/16/22 Range/Units 11:07 WBC 7.9 (4.8-10.8) X10*3/uL Hgb 8.8 L (12.0-16.0) g/dl Hct 28.4 L (37.0-47.0) % Plt Count 265 (160-400) X10*3/uL BMP 07/16/22 11:07 Sodium 144 Potassium 3.6 Chloride 111 H Carbon Dioxide 22 BUN 6 L D Creatinine 0.71 Calcium 7.0 L D Assessment and Plan (1) Watery diarrhea: Status: Acute (2) Acute pancreatitis: Status: Acute Plan Differentials for acute diarrheal illness include infectious, pancreatic insufficiency, immune checkpoint inhibitor diarrhea and enterocolitis also certainly in the differential. She is within the window of developing diarrhea/colitis from immune checkpoint inhibitor therapy (within a few months). Given grade 2 symptoms of more than 4 bowel movements above baseline without any systemic signs of toxicity, will evaluate with inpatient flex sig to establish timely diagnosis and treatment and to avoid progression/complications. Recommend: * NPO after MN for flexible sigmoidoscopy * Hold eliquis tonight and tomorrow for the procedure * x2 enemas tomorrow morning prior to flex sig * Will also obtain further studies including CRP, fecal calprotectin, fecal elastase. * Avoid antidiarrheals as this can risk megacolon if this is truly ICI colitis * Would also keep a close eye on the pancreas and recommend interval imaging in 3-6 months to r/o pancreatic involvement by NSCLC depending on overall clinical course. Plan of care was reviewed with the post closer Date of Service Date of Service: 07/16/22
[2022-07-16 19:13] LABS: C Reactive Protein 5.62 mg/dL (< or = 0.50)
[2022-07-16] MEDS: Ondansetron ODT 4 MG TAB.RAPDIS TRANSLINGU (19:27)
[2022-07-16 19:58] LABS: Glucose, Whole Blood 131 mg/dL (60-115)
[2022-07-16] MEDS: Atorvastatin Calcium 80 MG TABLET PO (20:27)
[2022-07-16] MEDS: Metoprolol Succinate ER 50 MG TAB.ER.24H 150 MG PO (20:27)
[2022-07-16] MEDS: Sennosides/Docusate Sodium TABLET 1 TAB PO (20:27)
[2022-07-16] MEDS: Insulin Glargine,Hum.rec.anlog 100 UNIT/ML 10 ML VIAL 20 UNIT SUBCUT (20:27)
[2022-07-16] MEDS: traZODone HCL 50 MG TABLET PO (20:27)
[2022-07-16] MEDS: Magnesium Hydrox/Alum Hydrox 30 ML ORAL.SUSP 15 ML PO (21:56)
[2022-07-17] VITALS (10 sets, daily range): BP systolic 92–141; BP diastolic 44–74; PULSE 68–85; RESP 16–20; TEMP 36.2–37.1; O2SAT 94–100
[2022-07-17] MEDS: ALPRAZolam 0.25 MG TABLET PO ×2 (03:08→18:38)
[2022-07-17] MEDS: Omeprazole 40 MG CAPSULE.DR PO (05:39)
[2022-07-17 07:26] LABS: Glucose, Whole Blood 99 mg/dL (60-115)
[2022-07-17] MEDS: oxyCODONE HCl Immed Release 5 MG TABLET PO (08:00)
[2022-07-17] MEDS: Ondansetron ODT 4 MG TAB.RAPDIS TRANSLINGU (08:00)
[2022-07-17] MEDS: Sodium Phosphate,Mono-Dibasic 133 ML ENEMA PR (11:12)
[2022-07-17 12:05] LABS: Glucose, Whole Blood 101 mg/dL (60-115)
--- NOTE | 2022-07-17 12:24 | PC.NURSE ---
Fleets given per order. Yellow liquid stool returned.
--- NOTE | 2022-07-17 13:22 | P.CONAN_ITS ---
[facility] Active Problems Active Problems: All Active Problems (Updated 07/16/22 @ 19:03 by Roselyn Cooley MD) Watery diarrhea (Acute) Acute pancreatitis (Acute) Abdominal pain (Acute) Acute pancreatitis (Acute) Diabetes mellitus with hyperglycemia (Acute) Metformin adverse reaction (Acute) Diabetes mellitus with hyperglycemia, without long-term current use of insulin (Acute) Bone metastases (Acute) Contusion of rib on right side (Acute) Adenocarcinoma of left lung (Acute ~2021) Bilateral pulmonary embolism (Acute ~10/2020) CAD (coronary artery disease) (Acute) Essential hypertension (Acute) Mixed dyslipidemia (Acute) Aortic stenosis (Acute) GERD without esophagitis (Acute) Normocytic anemia (Acute) Pulmonary nodules (Acute) Vitamin B12 deficiency (Acute) Migraine with aura (Acute) Restless leg syndrome (Acute) Major depression in full remission (Acute) Bleeding hemorrhoids (Acute) Past Medical History Medical History AAA (abdominal aortic aneurysm) (~2008) Adenocarcinoma of left lung (~2021) Anemia Aortic stenosis Arthritis Atypical migraine AVM (arteriovenous malformation) of colon Barretts esophagus Bilateral pulmonary embolism (~10/2020) Bleeding hemorrhoids CAD (coronary artery disease) Contusion of rib on right side COPD (chronic obstructive pulmonary disease) Depression Diabetes mellitus with hyperglycemia Diabetes mellitus with hyperglycemia, without long-term current use of insulin Essential hypertension GERD without esophagitis GIB (gastrointestinal bleeding) History of blood transfusion Irritable bowel syndrome with both constipation and diarrhea Major depression in full remission Metformin adverse reaction Mixed dyslipidemia Nonrheumatic aortic (valve) stenosis Nonrheumatic mitral valve regurgitation Normocytic anemia Obesity On anticoagulant therapy (~10/2020) On beta [place] at home Pulmonary nodules Restless leg syndrome Transient cerebral ischemia Vitamin B12 deficiency Family History Family History Father HTN (hypertension) Myocardial infarction Hyperlipidemia Abdominal aneurysm Mother HTN (hypertension) Myocardial infarction Hyperlipidemia Brother Alzheimer's disease Substance abuse Sister Rheumatoid arthritis Brother Rheumatoid arthritis Maternal Aunt Diabetes mellitus Lung cancer Maternal Uncle Diabetes mellitus Son No problems noted. Daughter No problems noted. Family history of problems with anesthesia: No Surgical History Surgical History History of bilateral breast reduction surgery (~2010) History of colonoscopy (~2018) History of coronary artery bypass graft x 2 (~2017) History of esophagogastroduodenoscopy (EGD) (~2020) History of heart artery stent (~2007) History of hysterectomy History of lung biopsy (~2021) History of total right knee replacement (TKR) (~2015) S/P excision of lipoma (~2017) History of Problems with Anesthesia: No Social History Social History Household Members: Spouse Housing: House Do you presently have visiting nurse or other home services: No Alcohol intake: former Patient Tobacco Use Status: Former Tobacco user Quit Date: 30 years ago Tobacco use type: Cigarette Cigarette Packs Per Day: 2 Years Smoked: 30 Smoked in Last 30 Days: No e-Cigarette/Vaping Use: Never Used Second Hand Smoke Exposure: No Use of substances other than those prescribed or required for medical reasons: No Substance Use Type: Marijuana Currently Displaying Signs/Symptoms of Drug Intoxication Withdrawal: No Have you been hit, kicked, punched, or otherwise hurt by someone within the past year? If so, by whom?: No Do you feel safe in your current relationship?: Yes Is there a partner from a previous relationship who is making you feel unsafe now?: No Are you made to feel afraid or neglected: No Sabianism Healthcare Practices: Latter Day, non-practicing Are you DNR?: No Advance Directives: Yes Advance Directives on File: Yes Advance Directives Date on File: 04/27/22 Do you have thoughts of harming others: None Do you have a plan to hurt others: No Plan Recently lost weight without trying: Yes How much weight loss: 2-13 pounds Eating poorly because of decreased appetite: Yes Nutrition screen score: 4 Nutrition Risks: Acute nausea or vomiting x1 week Patient : No : No Poor oral hygiene: No service: No Current occupational status: retired 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/ [employer] Cognitive needs: No Hearing needs: No Vision needs: Yes Meds Allergies Allergy/AdvReac Type Severity Reaction Status Date / Time sulfamethoxazole Allergy Severe Rash Verified 07/02/22 16:58 [From Bactrim] adhesive tape [ADHESIVE TAPE] Allergy Intermediate BLISTERS Verified 07/02/22 16:58 clonidine Allergy makes pt Verified 07/02/22 16:58 hulusinate adhesive AdvReac Severe BLISTERS Verified 07/02/22 16:58 gabapentin AdvReac Severe hallucinati Verified 07/02/22 16:58 on morphine AdvReac Severe hallucinati Verified 07/02/22 16:58 on glue AdvReac Severe BLISTERS Uncoded 07/02/22 16:58 Active Medications: Current Medications Acetaminophen (Acetaminophen 325 Mg Tablet) 650 mg PO Q6H PRN PRN Reason: Pain, Mild (Pain Scale 1-3) Acetaminophen (Acetaminophen 325 Mg Tablet) 650 mg PO BID [facility] Last Admin: 07/17/22 08:13 Dose: Not Given Al Hydroxide/Mg Hydroxide (Magnesium Hydrox/Alum Hydrox 30 Ml Oral.Susp) 15 ml PO Q4H PRN PRN Reason: heartburn Last Admin: 07/16/22 21:56 Dose: 15 ml Alprazolam (Alprazolam 0.25 Mg Tablet) 0.25 mg PO TID PRN PRN Reason: Anxiety Last Admin: 07/17/22 03:08 Dose: 0.25 mg Apixaban (Apixaban 5 Mg Tablet) 5 mg PO BID [facility] Last Admin: 07/17/22 10:22 Dose: Not Given Atorvastatin Calcium (Atorvastatin Calcium 80 Mg Tablet) 80 mg PO BEDTIME [facility] Last Admin: 07/16/22 20:27 Dose: 80 mg Clotrimazole (Clotrimazole 1 % Vaginal Cream 45 Gm Tube) 1 appl VAGINAL BEDTIME PRN PRN Reason: VAGINAL ITCH Dextrose (Dextrose 50 % 25 Gm/50 Ml Syringe) 25 gm IVPUSH Q15M PRN; Protocol PRN Reason: per Hypoglycemia Standing Ord. Ferrous Sulfate (Ferrous Sulfate 324 Mg Tablet.Dr) 324 mg PO Q2D [facility] Last Admin: 07/17/22 10:22 Dose: Not Given Folic Acid (Folic Acid 1 Mg Tablet) 1 mg PO DAILY [facility] Last Admin: 07/17/22 10:22 Dose: Not Given Glucose (Glucose Gel 15 Gm Gel..Gram.) 15 gm PO Q15M PRN; Protocol PRN Reason: per Hypoglycemia Standing Ord. Hydromorphone HCl (Hydromorphone Hcl 0.5 Mg/0.5 Ml Syringe) 0.5 mg IVPUSH Q4H PRN; Protocol PRN Reason: Pain, Severe (Pain Scale 7-10) Insulin Glargine (Insulin Glargine,Hum.Rec.Anlog 100 Unit/Ml 10 Ml Vial) 20 unit SUBCUT BEDTIME [facility] Last Admin: 07/16/22 20:27 Dose: 20 unit Insulin Human Lispro (Insulin Lispro 100 Unit/Ml 3 Ml Vial) 0 unit SUBCUT QIDACHS [facility]; Protocol Last Admin: 07/17/22 12:11 Dose: Not Given Isosorbide Mononitrate (Isosorbide Mononitrate 30 Mg Tab.Er.24h) 30 mg PO DAILY [facility]; Protocol Last Admin: 07/17/22 10:23 Dose: Not Given Lisinopril (Lisinopril 2.5 Mg Tablet) 2.5 mg PO DAILY [facility]; Protocol Last Admin: 07/17/22 10:23 Dose: Not Given Loratadine (Loratadine 10 Mg Tablet) 10 mg PO DAILY [facility] Last Admin: 07/17/22 10:23 Dose: Not Given Melatonin (Melatonin 3 Mg Tablet) 3 mg PO BEDTIME PRN PRN Reason: Insomnia Metoprolol Succinate (Metoprolol Succinate Er 50 Mg Tab.Er.24h) 150 mg PO BEDTIME [facility]; Protocol Last Admin: 07/16/22 20:27 Dose: 150 mg Omeprazole (Omeprazole 40 Mg Capsule.Dr) 40 mg PO DAILY@0630 [facility] Last Admin: 07/17/22 05:39 Dose: 40 mg Ondansetron HCl (Ondansetron Hcl 4 Mg/2 Ml Vial) 4 mg IVPUSH Q8H PRN PRN Reason: Nausea and Vomiting Ondansetron HCl (Ondansetron Odt 4 Mg Tab.Rapdis) 4 mg TRANSLINGU Q8H PRN PRN Reason: Nausea and Vomiting Last Admin: 07/17/22 08:00 Dose: 4 mg Oxycodone HCl (Oxycodone Hcl Immed Release 5 Mg Tablet) 5 mg PO Q4H PRN PRN Reason: Pain, Severe (Pain Scale 7-10) Last Admin: 07/17/22 08:00 Dose: 5 mg Pharmacy Consult (Consult Rx Perform Med Rec) 1 each MISCELLANE ONCE PRN PRN Reason: Consult order Polyethylene Glycol (Polyethylene Glycol 3350 17 Gm Powd.Pack) 17 gm PO DAILY [facility] Last Admin: 07/17/22 10:23 Dose: Not Given Senna/Docusate Sodium (Sennosides/Docusate Sodium Tablet) 1 tab PO BEDTIME [facility] Last Admin: 07/16/22 20:27 Dose: 1 tab Sertraline HCl (Sertraline Hcl 100 Mg Tablet) 100 mg PO DAILY [facility] Last Admin: 07/17/22 10:23 Dose: Not Given Sodium Chloride (0.9 % Sodium Chloride Flush 3 Ml Syringe) 3 ml IVFLUSH QSHIFT [facility] Last Admin: 07/17/22 08:13 Dose: Not Given Tramadol HCl (Tramadol Hcl 50 Mg Tablet) 50 mg PO BID PRN PRN Reason: Breakthrough Pain, Moderate Last Admin: 07/16/22 14:01 Dose: 50 mg Trazodone HCl (Trazodone Hcl 50 Mg Tablet) 50 mg PO BEDTIME [facility] Last Admin: 07/16/22 20:27 Dose: 50 mg Verapamil HCl (Verapamil Hcl Sr 100 Mg Cap24h.Pct) 100 mg PO BEDTIME [facility]; Protocol Last Admin: 07/16/22 20:27 Dose: 100 mg Vitamin D (Cholecalciferol (Vitamin D3) 25 Mcg Tablet) 50 mcg PO DAILY [facility] Last Admin: 07/17/22 10:22 Dose: Not Given Home Medications Medication Instructions Recorded Confirmed Last Taken Type cholecalciferol (vitamin D3) 50 50 mcg PO DAILY 10/26/20 07/13/22 07/10/22 History mcg (2,000 unit) capsule verapamil 100 mg capsule 24hr 100 mg PO BEDTIME 10/26/20 07/13/22 07/09/[address],ext.release acetaminophen 500 mg tablet 500 mg PO BID 11/07/20 07/13/22 07/10/22 History isosorbide mononitrate 30 mg 30 mg PO DAILY 10/02/21 07/13/22 07/10/22 History tablet,extended release 24 hr apixaban 5 mg tablet (Eliquis) 1 tab PO Q12H 02/19/22 07/13/22 07/10/22 History ferrous fumarate 325 mg (106 mg 325 mg PO Q2D 03/16/22 07/13/22 07/10/22 History iron) tablet sertraline 100 mg tablet (Zoloft) 100 mg PO DAILY 04/27/22 07/13/22 07/10/22 History lisinopril 2.5 mg tablet 2.5 mg PO DAILY 07/03/22 07/13/22 07/10/22 History nystatin 100,000 unit/mL oral 1 ml buccal BID 07/10/22 07/13/22 07/10/22 History suspension insulin lispro 100 unit/mL See Rx Instructions .Route .COMPLEX 07/13/22 07/13/22 Unknown History subcutaneous pen (Humalog KwikPen (U-100) Insulin) Exam Exam Date and Time: July 17, 2022 1322 Height,Weight and Vital Signs: Height 5 ft Weight 78.7 kg Last Vital Signs Temp 98.7 F 07/17/22 12:39 Pulse 68 07/17/22 12:39 Resp 16 07/17/22 12:39 BP 132/54 L 07/17/22 12:39 Pulse Ox 97 07/17/22 12:39 O2 Del Method 07/17/22 12:39 Pertinent Lab Results Pertinent Lab Results: Laboratory Tests 07/13/22 07/13/22 07/14/22 16:50 21:01 02:36 WBC RBC Hgb Hct MCV MCH MCHC RDW Plt Count MPV Absolute Nucleated RBC Nucleated RBC % (auto) Sodium Potassium Chloride Carbon Dioxide Anion Gap BUN Creatinine Estim Creat Clear Calc Estimated GFR POC Glucose 138 H 257 H Random Glucose Calcium C-Reactive Protein Lipase Stl C. cayetanensis PCR Not Detected Stool Rotavirus A PCR Not Detected Stl Adenov F 40/41 PCR Not Detected Stool Astrovirus (PCR) Not Detected Stool Campylobacter PCR Not Detected Stool Cryptosporidium PCR Not Detected Stl Sh Tox Pr E STEC PCR Not Detected Stool E coli O157 PCR Not applicable Stl Enterotoxigenic E PCR Not Detected Stool EPEC (PCR) Not Detected Stool EAEC (PCR) Not Detected Stl E. histolytica PCR Not Detected Stool Giardia Lamblia PCR Not Detected Stl P. shigelloides PCR Not Detected Stool Salmonella PCR Not Detected Stool Sapovirus (PCR) Not Detected Stl Shigella/EIEC PCR Not Detected St Y.enterocolitica PCR Not Detected Stool Vibrio (PCR) Not Detected Stl Vibrio cholerae PCR Not Detected Stl Norovirus GI/GII PCR Not Detected C. difficile Tox B Gene 07/14/22 07/14/22 07/14/22 02:36 09:14 10:59 WBC RBC Hgb Hct MCV MCH MCHC RDW Plt Count MPV Absolute Nucleated RBC Nucleated RBC % (auto) Sodium Potassium Chloride Carbon Dioxide Anion Gap BUN Creatinine Estim Creat Clear Calc Estimated GFR POC Glucose 223 H 195 H Random Glucose Calcium C-Reactive Protein Lipase Stl C. cayetanensis PCR Stool Rotavirus A PCR Stl Adenov F 40/ PCR Stool Astrovirus (PCR) Stool Campylobacter PCR Stool Cryptosporidium PCR Stl Sh Tox Pr E STEC PCR Stool E coli O157 PCR Stl Enterotoxigenic E PCR Stool EPEC (PCR) Stool EAEC (PCR) Stl E. histolytica PCR Stool Giardia Lamblia PCR Stl P. shigelloides PCR Stool Salmonella PCR Stool Sapovirus (PCR) Stl Shigella/EIEC PCR St Y.enterocolitica PCR Stool Vibrio (PCR) Stl Vibrio cholerae PCR Stl Norovirus GI/GII PCR C. difficile Tox B Gene NEGATIVE 07/14/22 07/14/22 07/15/22 15:22 19:12 07:29 WBC RBC Hgb Hct MCV MCH MCHC RDW Plt Count MPV Absolute Nucleated RBC Nucleated RBC % (auto) Sodium Potassium Chloride Carbon Dioxide Anion Gap BUN Creatinine Estim Creat Clear Calc Estimated GFR POC Glucose 116 H 201 H 149 H Random Glucose Calcium C-Reactive Protein Lipase Stl C. cayetanensis PCR Stool Rotavirus A PCR Stl Adenov F 40/ PCR Stool Astrovirus (PCR) Stool Campylobacter PCR Stool Cryptosporidium PCR Stl Sh Tox Pr E STEC PCR Stool E coli O157 PCR Stl Enterotoxigenic E PCR Stool EPEC (PCR) Stool EAEC (PCR) Stl E. histolytica PCR Stool Giardia Lamblia PCR Stl P. shigelloides PCR Stool Salmonella PCR Stool Sapovirus (PCR) Stl Shigella/EIEC PCR St Y.enterocolitica PCR Stool Vibrio (PCR) Stl Vibrio cholerae PCR Stl Norovirus GI/GII PCR C. difficile Tox B Gene 07/15/22 07/15/22 07/15/22 11:48 16:30 19:00 WBC RBC Hgb Hct MCV MCH MCHC RDW Plt Count MPV Absolute Nucleated RBC Nucleated RBC % (auto) Sodium Potassium Chloride Carbon Dioxide Anion Gap BUN Creatinine Estim Creat Clear Calc Estimated GFR POC Glucose 183 H 152 H 123 H Random Glucose Calcium C-Reactive Protein Lipase Stl C. cayetanensis PCR Stool Rotavirus A PCR Stl Adenov F 40/ PCR Stool Astrovirus (PCR) Stool Campylobacter PCR Stool Cryptosporidium PCR Stl Sh Tox Pr E STEC PCR Stool E coli O157 PCR Stl Enterotoxigenic E PCR Stool EPEC (PCR) Stool EAEC (PCR) Stl E. histolytica PCR Stool Giardia Lamblia PCR Stl P. shigelloides PCR Stool Salmonella PCR Stool Sapovirus (PCR) Stl Shigella/EIEC PCR St Y.enterocolitica PCR Stool Vibrio (PCR) Stl Vibrio cholerae PCR Stl Norovirus GI/GII PCR C. difficile Tox B Gene 07/16/22 07/16/22 07/16/22 07:15 11:07 11:07 WBC 7.9 RBC 2.95 L Hgb 8.8 L Hct 28.4 L MCV 96.3 MCH 29.8 MCHC 31.0 RDW 16.2 H Plt Count 265 MPV 8.7 L Absolute Nucleated RBC 0.000 Nucleated RBC % (auto) 0.0 Sodium 144 Potassium 3.6 Chloride 111 H Carbon Dioxide 22 Anion Gap 15 BUN 6 L D Creatinine 0.71 Estim Creat Clear Calc 63.5 Estimated GFR > 60 POC Glucose 108 Random Glucose 135 H Calcium 7.0 L D C-Reactive Protein Lipase 93 H Stl C. cayetanensis PCR Stool Rotavirus A PCR Stl Adenov F 40/ PCR Stool Astrovirus (PCR) Stool Campylobacter PCR Stool Cryptosporidium PCR Stl Sh Tox Pr E STEC PCR Stool E coli O157 PCR Stl Enterotoxigenic E PCR Stool EPEC (PCR) Stool EAEC (PCR) Stl E. histolytica PCR Stool Giardia Lamblia PCR Stl P. shigelloides PCR Stool Salmonella PCR Stool Sapovirus (PCR) Stl Shigella/EIEC PCR St Y.enterocolitica PCR Stool Vibrio (PCR) Stl Vibrio cholerae PCR Stl Norovirus GI/GII PCR C. difficile Tox B Gene 07/16/22 07/16/22 07/16/22 11:16 15:20 18:50 WBC RBC Hgb Hct MCV MCH MCHC RDW Plt Count MPV Absolute Nucleated RBC Nucleated RBC % (auto) Sodium Potassium Chloride Carbon Dioxide Anion Gap BUN Creatinine Estim Creat Clear Calc Estimated GFR POC Glucose 124 H 145 H Random Glucose Calcium C-Reactive Protein 5.62 H Lipase Stl C. cayetanensis PCR Stool Rotavirus A PCR Stl Adenov F 40/41 PCR Stool Astrovirus (PCR) Stool Campylobacter PCR Stool Cryptosporidium PCR Stl Sh Tox Pr E STEC PCR Stool E coli O157 PCR Stl Enterotoxigenic E PCR Stool EPEC (PCR) Stool EAEC (PCR) Stl E. histolytica PCR Stool Giardia Lamblia PCR Stl P. shigelloides PCR Stool Salmonella PCR Stool Sapovirus (PCR) Stl Shigella/EIEC PCR St Y.enterocolitica PCR Stool Vibrio (PCR) Stl Vibrio cholerae PCR Stl Norovirus GI/GII PCR C. difficile Tox B Gene 07/16/22 07/17/22 07/17/22 19:17 06:55 11:58 WBC RBC Hgb Hct MCV MCH MCHC RDW Plt Count MPV Absolute Nucleated RBC Nucleated RBC % (auto) Sodium Potassium Chloride Carbon Dioxide Anion Gap BUN Creatinine Estim Creat Clear Calc Estimated GFR POC Glucose 131 H 99 101 Random Glucose Calcium C-Reactive Protein Lipase Stl C. cayetanensis PCR Stool Rotavirus A PCR Stl Adenov F 40/41 PCR Stool Astrovirus (PCR) Stool Campylobacter PCR Stool Cryptosporidium PCR Stl Sh Tox Pr E STEC PCR Stool E coli O157 PCR Stl Enterotoxigenic E PCR Stool EPEC (PCR) Stool EAEC (PCR) Stl E. histolytica PCR Stool Giardia Lamblia PCR Stl P. shigelloides PCR Stool Salmonella PCR Stool Sapovirus (PCR) Stl Shigella/EIEC PCR St Y.enterocolitica PCR Stool Vibrio (PCR) Stl Vibrio cholerae PCR Stl Norovirus GI/GII PCR C. difficile Tox B Gene Airway Mallampati Class: II TM Dist: >3cm Neck ROM: Full Denture: Upper and Lower Assessment and Plan Assessment Anesthesia Assessment: Anesthesia Plan Discussed and Chart Reviewed Final Anesthetic Review Family History of Problems with Anesthesia: No History of Problems with Anesthesia: No NPO: Yes ASA Class: III Final Preanesthetic Review: No Changes in Pt Med Stat, Meds/Allgs Chart Reviewed, Consent Obtained/Reviewed and Anes Risks/Benef Reviewed Patient Risk: Intermediate Procedure Risk: Low Anesthetic Plan Anesthetic Plan: MAC: Disposition: Standard PACU
--- NOTE | 2022-07-17 13:44 | HO.PM.IMPN ---
Subjective Subjective Date of Service: 07/17/22 Interval History: complaining of persistent epigastric discomfort, and diarrhea, NPO is scheduled for sigmoidoscopy this afternoon, no fevers no chills no other acute issues overnight. 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 awake alert x3 resting comfortably, in no acute distress.? Neck supple no JVD. CVS? regular rate rhythm, Respiratory lungs clear to auscultation, no respiratory distress, no wheeze, no rhonchi. Gastrointestinal abdomen soft,? mild epigastric discomfort with palpation, no guarding, no rigidity bowel sounds audible. Extremities no edema. Neuro nonfocal ,moving all 4 extremity, speech clear. Skin no rash psych appropriate affect Objective Data Active Medications Acetaminophen (Acetaminophen 325 Mg Tablet) 650 mg PO Q6H PRN PRN Reason: Pain, Mild (Pain Scale 1-3) Acetaminophen (Acetaminophen 325 Mg Tablet) 650 mg PO BID [facility] Last Admin: 07/17/22 08:13 Dose: Not Given Documented By: QUYEN Non-Admin Reason: Patient Refused Al Hydroxide/Mg Hydroxide (Magnesium Hydrox/Alum Hydrox 30 Ml Oral.Susp) 15 ml PO Q4H PRN PRN Reason: heartburn Last Admin: 07/16/22 21:56 Dose: 15 ml Documented By: QUIQUE Alprazolam (Alprazolam 0.25 Mg Tablet) 0.25 mg PO TID PRN PRN Reason: Anxiety Last Admin: 07/17/22 03:08 Dose: 0.25 mg Documented By: JEFFERY Apixaban (Apixaban 5 Mg Tablet) 5 mg PO BID [facility] Last Admin: 07/17/22 10:22 Dose: Not Given Documented By: QUYEN Non-Admin Reason: per op Atorvastatin Calcium (Atorvastatin Calcium 80 Mg Tablet) 80 mg PO BEDTIME [facility] Last Admin: 07/16/22 20:27 Dose: 80 mg Documented By: QUIQUE Clotrimazole (Clotrimazole 1 % Vaginal Cream 45 Gm Tube) 1 appl VAGINAL BEDTIME PRN PRN Reason: VAGINAL ITCH Dextrose (Dextrose 50 % 25 Gm/50 Ml Syringe) 25 gm IVPUSH Q15M PRN; Protocol PRN Reason: per Hypoglycemia Standing Ord. Ferrous Sulfate (Ferrous Sulfate 324 Mg Tablet.Dr) 324 mg PO Q2D [facility] Last Admin: 07/17/22 10:22 Dose: Not Given Documented By: QUYEN Non-Admin Reason: NPO Folic Acid (Folic Acid 1 Mg Tablet) 1 mg PO DAILY [facility] Last Admin: 07/17/22 10:22 Dose: Not Given Documented By: QUYEN Non-Admin Reason: NPO Glucose (Glucose Gel 15 Gm Gel..Gram.) 15 gm PO Q15M PRN; Protocol PRN Reason: per Hypoglycemia Standing Ord. Hydromorphone HCl (Hydromorphone Hcl 0.5 Mg/0.5 Ml Syringe) 0.5 mg IVPUSH Q4H PRN; Protocol PRN Reason: Pain, Severe (Pain Scale 7-10) Insulin Glargine (Insulin Glargine,Hum.Rec.Anlog 100 Unit/Ml 10 Ml Vial) 20 unit SUBCUT BEDTIME [facility] Last Admin: 07/16/22 20:27 Dose: 20 unit Documented By: QUIQUE Insulin Human Lispro (Insulin Lispro 100 Unit/Ml 3 Ml Vial) 0 unit SUBCUT QIDACHS [facility]; Protocol Last Admin: 07/17/22 12:11 Dose: Not Given Documented By: QUYEN Non-Admin Reason: No Insulin Coverage Isosorbide Mononitrate (Isosorbide Mononitrate 30 Mg Tab.Er.24h) 30 mg PO DAILY [facility]; Protocol Last Admin: 07/17/22 10:23 Dose: Not Given Documented By: QUYEN Non-Admin Reason: NPO Lisinopril (Lisinopril 2.5 Mg Tablet) 2.5 mg PO DAILY [facility]; Protocol Last Admin: 07/17/22 10:23 Dose: Not Given Documented By: QUYEN Non-Admin Reason: NPO Loratadine (Loratadine 10 Mg Tablet) 10 mg PO DAILY [facility] Last Admin: 07/17/22 10:23 Dose: Not Given Documented By: QUYEN Non-Admin Reason: NPO Melatonin (Melatonin 3 Mg Tablet) 3 mg PO BEDTIME PRN PRN Reason: Insomnia Metoprolol Succinate (Metoprolol Succinate Er 50 Mg Tab.Er.24h) 150 mg PO BEDTIME [facility]; Protocol Last Admin: 07/16/22 20:27 Dose: 150 mg Documented By: QUIQUE Omeprazole (Omeprazole 40 Mg Capsule.Dr) 40 mg PO DAILY@0630 [facility] Last Admin: 07/17/22 05:39 Dose: 40 mg Documented By: JEFFERY Ondansetron HCl (Ondansetron Hcl 4 Mg/2 Ml Vial) 4 mg IVPUSH Q8H PRN PRN Reason: Nausea and Vomiting Ondansetron HCl (Ondansetron Odt 4 Mg Tab.Rapdis) 4 mg TRANSLINGU Q8H PRN PRN Reason: Nausea and Vomiting Last Admin: 07/17/22 08:00 Dose: 4 mg Documented By: QUYEN Oxycodone HCl (Oxycodone Hcl Immed Release 5 Mg Tablet) 5 mg PO Q4H PRN PRN Reason: Pain, Severe (Pain Scale 7-10) Last Admin: 07/17/22 08:00 Dose: 5 mg Documented By: QUEYN Pharmacy Consult (Consult Rx Perform Med Rec) 1 each MISCELLANE ONCE PRN PRN Reason: Consult order Polyethylene Glycol (Polyethylene Glycol 3350 17 Gm Powd.Pack) 17 gm PO DAILY [facility] Last Admin: 07/17/22 10:23 Dose: Not Given Documented By: QUYEN Non-Admin Reason: NPO Senna/Docusate Sodium (Sennosides/Docusate Sodium Tablet) 1 tab PO BEDTIME [facility] Last Admin: 07/16/22 20:27 Dose: 1 tab Documented By: QUIQUE Sertraline HCl (Sertraline Hcl 100 Mg Tablet) 100 mg PO DAILY [facility] Last Admin: 07/17/22 10:23 Dose: Not Given Documented By: QUYEN Non-Admin Reason: NPO Sodium Chloride (0.9 % Sodium Chloride Flush 3 Ml Syringe) 3 ml IVFLUSH QSHIFT [facility] Last Admin: 07/17/22 08:13 Dose: Not Given Documented By: QUYEN Non-Admin Reason: No Access Tramadol HCl (Tramadol Hcl 50 Mg Tablet) 50 mg PO BID PRN PRN Reason: Breakthrough Pain, Moderate Last Admin: 07/16/22 14:01 Dose: 50 mg Documented By: RUPINDER Trazodone HCl (Trazodone Hcl 50 Mg Tablet) 50 mg PO BEDTIME [facility] Last Admin: 07/16/22 20:27 Dose: 50 mg Documented By: QUIQUE Verapamil HCl (Verapamil Hcl Sr 100 Mg Cap24h.Pct) 100 mg PO BEDTIME [facility]; Protocol Last Admin: 07/16/22 20:27 Dose: 100 mg Documented By: QUIQUE Vitamin D (Cholecalciferol (Vitamin D3) 25 Mcg Tablet) 50 mcg PO DAILY [facility] Last Admin: 07/17/22 10: Dose: Not Given Documented By: QUYEN Non-Admin Reason: NPO Labs CBC & Chem 7: 07/16/22 11:07 07/16/22 11:07 Labs: Laboratory Results - last 24 hr 07/16/22 07/16/22 07/16/22 15:20 18:50 19:17 POC Glucose 145 H 131 H C-Reactive Protein 5.62 H 07/17/22 07/17/22 06:55 11:58 POC Glucose 99 101 C-Reactive Protein Assessment and Plan (1) Acute pancreatitis: Status: Acute (2) Abdominal pain: Status: Acute (3) Acute pancreatitis: Status: Acute Plan 77-year-old female with history significant for severe aortic stenosis, Vicente's esophagus, COPD, CAD status post CABG x2, chronic normocytic anemia, uncontrolled insulin-dependent type 2 diabetes, history of bilateral pulmonary embolism anticoagulated with apixaban, 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 1- Abdominal pain and diarrhea persistent symptoms initially fell symptoms related to drug induced pancreatitis- believed related to Keytruda, but clinically this has resolved, lipase is down to 93. -CT abd/pelvis 07/10 showed mild pancreatitis -Lipase 93 on 07/16 improved from 1723 during last admission - repeat CT abdomen showed no significant change somewhat tiffanie appearance of the mesentery with small mesenteric nodes,similar to prior abutting the pancreas, unclear if this could be related to previously reported pancreatitis or mesenteric panniculitis. -discussed with Dr. Cooley patient is scheduled to undergo sigmoidoscopy this afternoon, will discuss further treatment plan with Dr. Cooley and , there is concern for possible autoimmune colitis related to Keytruda 2- Uncontrolled insulin dependent type 2 diabetes--much better control BS ,Continue lantus? and insulin sliding scale monitor blood sugars q.i.d. 3-Diarrhea--C dif negative, concern of colitis, CT abdomen showed no change from before, follow sigmoidoscopy report 4.Hx bilateral pulmonary embolism,Continue apixiban. 5-HTN- stable blood pressure, Continue home meds 5-CAD s/p CABG x2 last year/HLD- no anginal chest pain, continue home medications metorpolol/atorvastatin/isosorbide -Follow outpt with Dr. Hernandez 6-Depression/anxiety -Continue sertraline, trazadone, and alprazolam, 7-Chronic normocytic anemia- is stable hematocrit 8. metastatic lung CA outpatient follow-up with Dr. Perdue 9. Anxiety--Xanax DVT prophylaxis- continue apixiban Full code Need for inaptient: abdominal pain, diarrhea, ? colitis, need for hydration and further testing seen by physical therapy they do not recommend PT at this time Quality Stroke Does the patient have a stroke diagnosis?: No VTE Prior VTE?: No VTE Risk Level:: Medical - moderate - high VTE Device Contraindication: Treatment Not Indicated VTE Drug Contraindication: N/A - Med Ordered
--- NOTE | 2022-07-17 13:57 | MHC.SHP ---
Pre-Procedural Eval Section A Date of Service: 07/17/22 The patient is an INPATIENT: Yes The History & Physical has been completed within 30 days and I have reviewed it.: Yes Section B Chief Complaint: abd pain Allergies: Allergies Allergy/AdvReac Type Severity Reaction Status Date / Time sulfamethoxazole Allergy Severe Rash Verified 07/02/22 16:58 [From Bactrim] adhesive tape [ADHESIVE TAPE] Allergy Intermediate BLISTERS Verified 07/02/22 16:58 clonidine Allergy makes pt Verified 07/02/22 16:58 hulusinate adhesive AdvReac Severe BLISTERS Verified 07/02/22 16:58 gabapentin AdvReac Severe hallucinati Verified 07/02/22 16:58 on morphine AdvReac Severe hallucinati Verified 07/02/22 16:58 on glue AdvReac Severe BLISTERS Uncoded 07/02/22 16:58 Plan Diagnosis/Plan: Unchanged I have reviewed the history and physical and performed a pertinent physical examination on my patient. No changes have occurred unless specified.
--- NOTE | 2022-07-17 14:28 | P.OP_ITS ---
Operative Note Operative Note Date of Service: 07/17/22 Narrative: Procedure: Flexible sigmoidoscopy Indication: Diarrhea, hx of Pembrolizumab Endoscopist: Roselyn Cooley MD Anesthesia Provider: Lizzy Malave CRNA Anesthesia type: MAC Instrument: Olympus [id number] Consent: Indication, risks vs benefits, and alternatives were discussed with the patient who gave written informed consent to proceed. EKG, pulse, pulse oximetry and blood pressure were monitored throughout the procedure. Please see anesthesia flowsheet. Procedure: The patient was brought to the procedure room and placed in the left lateral decubitus position. IV medications were administered by the anesthesia provider in attendance. A digital rectal exam was performed which was abnormal due to finding of hemorrhoids. The gastroscope was then inserted through the anus and advanced through the colon to the splenic flexure at 50cm. Mucosa was carefully examined under high definition white light as the instrument was slowly withdrawn in a retrograde panoramic fashion. Retroflexion was performed in rectum. The procedure was not difficult. There were no immediate obvious complications. The quality of the prep was fair. Limitations: No limitations. Findings: Mucosa: ? Loss of normal vacular pattern in proximal sigmoid colon and descending colon. Cold forceps biopsies were taken. Prominent purplish vessels were noted in the rectum. Protruding lesions: * Large external hemorrhoids without stigmata of recent bleeding. Impression: 1. Minimally abnormal colon mucosa. (biopsy) 2. Prominent rectal vessels. 2. External hemorrhoids. Recommendations: - Follow path results. - Increase fiber intake to bulk up the stool - Start Loperamide 2mg as needed for loose stools
[2022-07-17 16:07] LABS: Glucose, Whole Blood 86 mg/dL (60-115)
[2022-07-17] MEDS: 0.9 % Sodium Chloride Flush 3 ML SYRINGE IVFLUSH (17:31)
[2022-07-17] MEDS: Loperamide HCl 2 MG CAPSULE 4 MG PO (18:39)
[2022-07-17 20:02] LABS: Glucose, Whole Blood 88 mg/dL (60-115)
[2022-07-17] MEDS: Insulin Glargine,Hum.rec.anlog 100 UNIT/ML 10 ML VIAL 20 UNIT SUBCUT (21:13)
[2022-07-17] MEDS: Atorvastatin Calcium 80 MG TABLET PO (21:14)
[2022-07-17] MEDS: traZODone HCL 50 MG TABLET PO (21:14)
[2022-07-17] MEDS: Acetaminophen 325 MG TABLET 650 MG PO (21:14)
[2022-07-17] MEDS: Metoprolol Succinate ER 50 MG TAB.ER.24H 150 MG PO (21:14)
[2022-07-17] MEDS: Apixaban 5 MG TABLET PO (21:14)
[2022-07-17] MEDS: HYDROmorphone HCl 0.5 MG/0.5 ML SYRINGE IVPUSH (23:20)
[2022-07-18] MEDS: 0.9 % Sodium Chloride Flush 3 ML SYRINGE IVFLUSH ×4 (01:06→19:58)
[2022-07-18 03:31] VITALS: BP 109/55; PULSE 74; RESP 16; TEMP 36.2; O2SAT 98
[2022-07-18 07:24] LABS: Glucose, Whole Blood 87 mg/dL (60-115)
[2022-07-18 08:28] VITALS: BP 117/59; PULSE 64; RESP 17; TEMP 36.2; O2SAT 98
[2022-07-18] MEDS: oxyCODONE HCl Immed Release 5 MG TABLET PO (08:38)
[2022-07-18] MEDS: Ondansetron ODT 4 MG TAB.RAPDIS TRANSLINGU (08:38)
[2022-07-18] MEDS: Folic Acid 1 MG TABLET PO (08:39)
[2022-07-18] MEDS: Sertraline HCL 100 MG TABLET PO (08:39)
[2022-07-18] MEDS: lisinopriL 2.5 MG TABLET PO (08:39)
[2022-07-18] MEDS: Cholecalciferol (Vitamin D3) 25 MCG TABLET 50 MCG PO (08:39)
[2022-07-18] MEDS: Isosorbide Mononitrate 30 MG TAB.ER.24H PO (08:39)
[2022-07-18] MEDS: Apixaban 5 MG TABLET PO ×2 (08:39→19:55)
--- NOTE | 2022-07-18 09:24 | PM.HEMONCCN ---
Subjective - Subjective Chief complaint: Watery stools/diarrhea Patient: known to practice within the last 3 years Consult date: 07/18/22 Primary Care Provider: Unknown Physician Medical Summary: Diagnosis: Metastatic lung cancer March 2022, Spontaneous pulmonary embolism October 2020 Anemia secondary to GI bleeding, AV malformations and hemorrhoids Hematological workup in 2020 revealed mildly elevated LDH of 232, faint IgG gamma monoclonal protein without elevation of IgG are suppression of other immunoglobulin levels. No recurrent kidney or liver dysfunction or hypercalcemia. Normal thyroid functions. Normal iron studies, vitamin B12 and folic acid levels. Spontaneous acute pulmonary embolism diagnosed at [facility] in October 2020. CT chest angio revealed 0.5 cm left upper lobe pulmonary nodule on 10/16/2020. Patient is a former smoker 2 PPD x 31 years. She quit in 1990. [place] by Dr. Gonzalez [place] [facility] [place] chest without contrast in July showed slight increase in size of left upper lobe pulmonary nodule measuring 1 x 0.7 cm. PET-CT on 09/12/2021 showed weekly FDG avid left upper lobe pulmonary nodule. No additional FDG uptake. 09/25/2021 PFTs where reasonably good. 11/28/2020 CT TAVR angio abdomen and pelvis showed 8 mm irregular nodule in posterior left upper lobe. 01/2022 thoracic surgeon felt patient able to tolerate lobectomy from a pulmonary standpoint. 01/30/2022 cardiology had plans for aortic valve replacement but this was on hold due to lung nodule. Multi valvular disease including aortic stenosis, mitral regurgitation and chronically occluded RCA noted. Patient felt to be moderate risk for surgery given her valve disease but not prohibitive for surgery. 02/15/2022 CT-guided biopsy of left upper lobe lung nodule-adenocarcinoma, moderately differentiated, acinar and lepidic types. Surgery versus SBRT discussed with patient. Patient preferred SBRT. PET-CT performed at [facility] on 04/10/2022 revealed mild FDG activity in left upper lobe subpleural nodule, SUV 3.1 which is biopsy-proven left upper lobe lung cancer. Mild FDG activity in left hilar region SUV 3.3. Focal FDG activity in right anterior 3rd rib SUV 3.8 and cortical destructive changes of iliac crest on the right with FDG activity of 9.4 suspicious for metastatic lesion. She has oligometastatic disease. However she has been deemed not a surgical candidate for her lung cancer because of underlying aortic stenosis and coronary artery disease. We discussed chemotherapy combined with immunotherapy/pembrolizumab. She was offered carboplatin with pemetrexed plus Keytruda. The other option is single agent pembrolizumab. She preferred single agent pembrolizumab. HPI - Consult Narrative Reason for consult: Immune toxicities related to treatment Narrative: Brittany Onofre is a 77 year old woman with a history of metastatic lung cancer who is admitted with abdominal pain, hyperglycemia and diarrhea. She developed acute pancreatitis after 3 doses of pembrolizumab. She was admitted for abdominal pain and hyperglycemia related to pancreatitis. She was managed with supportive care and discontinuation of immune therapy. Steroids were avoided because of hyperglycemia. She is now admitted with ongoing diarrhea. Her abdominal pain from pancreatitis is somewhat better and her sugars now are much better controlled. She has had workup to rule out infectious causes of diarrhea. She was seen by Gastroenterology and has undergone sigmoidoscopy. Imaging studies have also been performed. She has been NPO for pancreatitis. She feels weak and tired. She continues to have loose stools. 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 Barretts esophagus Bilateral pulmonary embolism Onset Date: ~10/2020 Bleeding hemorrhoids CAD (coronary artery disease) Contusion of rib on right side COPD (chronic obstructive pulmonary disease) Depression Diabetes mellitus with hyperglycemia Diabetes mellitus with hyperglycemia, without long-term current use of insulin Essential hypertension GERD without esophagitis GIB (gastrointestinal bleeding) History of blood transfusion Irritable bowel syndrome with both constipation and diarrhea Major depression in full remission Metformin adverse reaction Mixed dyslipidemia Nonrheumatic aortic (valve) stenosis Nonrheumatic mitral valve regurgitation Normocytic anemia Obesity On anticoagulant therapy Onset Date: ~10/2020 On beta ashleigh at home Pulmonary nodules Restless leg syndrome Transient cerebral ischemia Vitamin B12 deficiency Family History: Family History (Last Reviewed 07/13/22 @ 15:26 by Kar Baeza MD) Father HTN (hypertension) Myocardial infarction Hyperlipidemia Abdominal aneurysm Mother HTN (hypertension) Myocardial infarction Hyperlipidemia Brother Alzheimer's disease Substance abuse Sister Rheumatoid arthritis Brother Rheumatoid arthritis Maternal Aunt Diabetes mellitus Lung cancer Maternal Uncle Diabetes mellitus Son No problems noted. Daughter No problems noted. Surgical History: Surgical History (Last Reviewed 07/13/22 @ 15:26 by Kar Baeza MD) History of bilateral breast reduction surgery Onset Date: ~2010 History of colonoscopy Onset Date: ~2018 History of coronary artery bypass graft x 2 Onset Date: ~2017 History of esophagogastroduodenoscopy (EGD) Onset Date: ~2020 History of heart artery stent Onset Date: ~2007 History of hysterectomy History of lung biopsy Onset Date: ~2021 History of total right knee replacement (TKR) Onset Date: ~2015 S/P excision of lipoma Onset Date: ~2017 Social History: Social History (Last Reviewed 07/13/22 @ 15:26 by Kar Baeza MD) Living Situation History: Household Members: Spouse Housing: House Do you presently have visiting nurse or other home services: No Alcohol History Details: 1. How often do you have a drink containing alcohol?: a. Never 2. How many drinks containing alcohol do you have on a typical day when you are drinking?: a. 1 or 2 3. How often do you have six or more drinks on one occasion?: a. Never AUDIT-C Alcohol total score: 0 Last Drank Other:: months ago Currently Displaying Signs/Symptoms of Alcohol Withdrawal: No Tobacco History: Patient Tobacco Use Status: Former Tobacco user Tobacco use type: Cigarette Cigarette Packs Per Day: 2 Years Smoked: 30 Smoked in Last 30 Days: No Smoke Quit Date: 30 years ago e-Cigarette/Vaping Use: Never Used Second Hand Smoke Exposure: No Substance Use History: Use of substances other than those prescribed or required for medical reasons: No Substance Use Type: Marijuana Currently Displaying Signs/Symptoms of Drug Intoxication Withdrawal: No Domestic Abuse History: Have you been hit, kicked, punched, or otherwise hurt by someone within the past year? If so, by whom?: No Do you feel safe in your current relationship?: Yes Is there a partner from a previous relationship who is making you feel unsafe now?: No Are you made to feel afraid or neglected: No Healthcare Practices: Orthodox Healthcare Practices: Confucianist, non-practicing Advance Directives: Advance Directives: Yes Advance Directives on File: Yes Advance Directives Date on File: 04/27/22 Homicidal Assessment: Do you have thoughts of harming others: None Do you have a plan to hurt others: No Plan Nutrition Assessment: Recently lost weight without trying: Yes How much weight loss: 2-13 pounds Eating poorly because of decreased appetite: Yes Nutrition screen score: 4 Nutrition Risks: Acute nausea or vomiting Patient : No : No Poor oral hygiene: No Occupation Assessmet: service: No Current occupational status: retired 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 Home Medications and Allergies Current Medications: Current Medications Acetaminophen (Acetaminophen 325 Mg Tablet) 650 mg PO Q6H PRN PRN Reason: Pain, Mild (Pain Scale 1-3) Acetaminophen (Acetaminophen 325 Mg Tablet) 650 mg PO BID [facility] Last Admin: 07/18/22 08:41 Dose: Not Given Alprazolam (Alprazolam 0.25 Mg Tablet) 0.25 mg PO TID PRN PRN Reason: Anxiety Last Admin: 07/17/22 18:38 Dose: 0.25 mg Apixaban (Apixaban 5 Mg Tablet) 5 mg PO BID [facility] Last Admin: 07/18/22 08:39 Dose: 5 mg Atorvastatin Calcium (Atorvastatin Calcium 80 Mg Tablet) 80 mg PO BEDTIME [facility] Last Admin: 07/17/22 21:14 Dose: 80 mg Clotrimazole (Clotrimazole 1 % Vaginal Cream 45 Gm Tube) 1 appl VAGINAL BEDTIME PRN PRN Reason: VAGINAL ITCH Dextrose (Dextrose 50 % 25 Gm/50 Ml Syringe) 25 gm IVPUSH Q15M PRN; Protocol PRN Reason: per Hypoglycemia Standing Ord. Ferrous Sulfate (Ferrous Sulfate 324 Mg Tablet.Dr) 324 mg PO Q2D [facility] Last Admin: 07/17/22 10:22 Dose: Not Given Folic Acid (Folic Acid 1 Mg Tablet) 1 mg PO DAILY [facility] Last Admin: 07/18/22 08:39 Dose: 1 mg Glucose (Glucose Gel 15 Gm Gel..Gram.) 15 gm PO Q15M PRN; Protocol PRN Reason: per Hypoglycemia Standing Ord. Hydromorphone HCl (Hydromorphone Hcl 0.5 Mg/0.5 Ml Syringe) 0.5 mg IVPUSH Q4H PRN; Protocol PRN Reason: Pain, Severe (Pain Scale 7-10) Last Admin: 07/17/22 23:20 Dose: 0.5 mg Insulin Glargine (Insulin Glargine,Hum.Rec.Anlog 100 Unit/Ml 10 Ml Vial) 20 unit SUBCUT BEDTIME CHRISTY Last Admin: 07/17/22 21:13 Dose: 20 unit Insulin Human Lispro (Insulin Lispro 100 Unit/Ml 3 Ml Vial) 0 unit SUBCUT QIDACHS CHRISTY; Protocol Last Admin: 07/18/22 08:06 Dose: Not Given Isosorbide Mononitrate (Isosorbide Mononitrate 30 Mg Tab.Er.24h) 30 mg PO DAILY [facility]; Protocol Last Admin: 07/18/22 08:39 Dose: 30 mg Lisinopril (Lisinopril 2.5 Mg Tablet) 2.5 mg PO DAILY [facility]; Protocol Last Admin: 07/18/22 08:39 Dose: 2.5 mg Loperamide HCl (Loperamide Hcl 2 Mg Capsule) 2 mg PO TID [facility] Melatonin (Melatonin 3 Mg Tablet) 3 mg PO BEDTIME PRN PRN Reason: Insomnia Metoprolol Succinate (Metoprolol Succinate Er 50 Mg Tab.Er.24h) 150 mg PO BEDTIME [facility]; Protocol Last Admin: 07/17/22 21:14 Dose: 150 mg Ondansetron HCl (Ondansetron Hcl 4 Mg/2 Ml Vial) 4 mg IVPUSH Q8H PRN PRN Reason: Nausea and Vomiting Ondansetron HCl (Ondansetron Odt 4 Mg Tab.Rapdis) 4 mg TRANSLINGU Q8H PRN PRN Reason: Nausea and Vomiting Last Admin: 07/18/22 08:38 Dose: 4 mg Oxycodone HCl (Oxycodone Hcl Immed Release 5 Mg Tablet) 5 mg PO Q4H PRN PRN Reason: Pain, Severe (Pain Scale 7-10) Last Admin: 07/18/22 08:38 Dose: 5 mg Pharmacy Consult (Consult Rx Perform Med Rec) 1 each MISCELLANE ONCE PRN PRN Reason: Consult order Sertraline HCl (Sertraline Hcl 100 Mg Tablet) 100 mg PO DAILY [facility] Last Admin: 07/18/22 08:39 Dose: 100 mg Sodium Chloride (0.9 % Sodium Chloride Flush 3 Ml Syringe) 3 ml IVFLUSH QSHIFT [facility] Last Admin: 07/18/22 08:41 Dose: 3 ml Tramadol HCl (Tramadol Hcl 50 Mg Tablet) 50 mg PO BID PRN PRN Reason: Breakthrough Pain, Moderate Last Admin: 07/16/22 14:01 Dose: 50 mg Trazodone HCl (Trazodone Hcl 50 Mg Tablet) 50 mg PO BEDTIME [facility] Last Admin: 07/17/22 21:14 Dose: 50 mg Verapamil HCl (Verapamil Hcl Sr 100 Mg Cap24h.Pct) 100 mg PO BEDTIME [facility]; Protocol Last Admin: 07/17/22 21:14 Dose: 100 mg Vitamin D (Cholecalciferol (Vitamin D3) 25 Mcg Tablet) 50 mcg PO DAILY [facility] Last Admin: 07/18/22 08:39 Dose: 50 mcg Home Medications Medication Instructions Recorded Confirmed Type cholecalciferol (vitamin D3) 50 50 mcg PO DAILY 10/26/20 07/13/22 History mcg (2,000 unit) capsule verapamil 100 mg capsule 24hr 100 mg PO BEDTIME 10/26/20 07/13/[address],ext.release acetaminophen 500 mg tablet 500 mg PO BID 11/07/20 07/13/22 History isosorbide mononitrate 30 mg 30 mg PO DAILY 10/02/21 07/13/22 History tablet,extended release 24 hr apixaban 5 mg tablet (Eliquis) 1 tab PO Q12H 02/19/22 07/13/22 History ferrous fumarate 325 mg (106 mg 325 mg PO Q2D 03/16/22 07/13/22 History iron) tablet sertraline 100 mg tablet (Zoloft) 100 mg PO DAILY 04/27/22 07/13/22 History lisinopril 2.5 mg tablet 2.5 mg PO DAILY 07/03/22 07/13/22 History nystatin 100,000 unit/mL oral 1 ml buccal BID 07/10/22 07/13/22 History suspension insulin lispro 100 unit/mL See Rx Instructions .Route .COMPLEX 07/13/22 07/13/22 History subcutaneous pen (Humalog KwikPen (U-100) Insulin) Allergies Allergy/AdvReac Type Severity Reaction Status Date / Time sulfamethoxazole Allergy Severe Rash Verified 07/02/22 16:58 [From Bactrim] adhesive tape [ADHESIVE TAPE] Allergy Intermediate BLISTERS Verified 07/02/22 16:58 clonidine Allergy makes pt Verified 07/02/22 16:58 hulusinate adhesive AdvReac Severe BLISTERS Verified 07/02/22 16:58 gabapentin AdvReac Severe hallucinati Verified 07/02/22 16:58 on morphine AdvReac Severe hallucinati Verified 07/02/22 16:58 on glue AdvReac Severe BLISTERS Uncoded 07/02/22 16:58 Physical Exam Vital signs: Vital Signs Temp 97.1 F 07/18/22 08:28 Pulse 64 07/18/22 08:28 Resp 17 07/18/22 08:28 BP 117/59 L 07/18/22 08:28 Pulse Ox 98 07/18/22 08:28 O2 Del Method 07/18/22 08:28 Intake & Output 07/17/22 07/18/22 07/18/22 18:59 06:59 18:59 Intake Total 120 / 540 420 / 540 Balance 120 / 540 420 / 540 Intake: Intake, Oral Amount 120 / 540 420 / 540 Other: IV Intake, Intraoperative 300 Amount Meal Refused No No NPO Yes No Dinner % Eaten 100% Number of Unmeasured Voids 1 1 1 Number of Bowel Movements 1 1 Urine Bedside Commode Bathroom Urine Color Yellow Stool Bathroom Weight 78.7 kg - Constitutional Present: mild distress - Routine HEENT Exam Head: Present: normal inspection Eye: Present: EOMI, normal appearance - Routine Neck Exam Present: supple. Absent: lymphadenopathy - Routine Respiratory Exam Present: CTAB - Routine Cardiovascular Exam Cardiovascular: Present: RRR, S1, S2 - Routine Abdominal Exam Present: soft, tenderness. Absent: guarding - Routine Neurological Exam Present: alert, oriented X3 - Routine Psychiatric Exam Present: anxious Hem/Onc Consult Result - Labs CBC & Chem 7: 07/16/22 11:07 07/16/22 11:07 Assessment and Plan Patient Active problem list reviewed?: Yes (1) Adenocarcinoma of left lung Problem details: (MARIBELL Adenocarcinoma, moderately differentiated, acinar and lepidic types - dx 02/2022) Status: Acute Assessment and plan: Assessment and plan: 1. This is a 77-year-old woman with metastatic lung adenocarcinoma. Left upper lobe lung nodule was biopsied on 02/15/2022 which revealed moderately differentiated adenocarcinoma. She had right iliac wing biopsy on 04/06/2022 which revealed metastatic pulmonary adenocarcinoma (done at [facility]). PDL1 22C3, TPS 25%. EGFR, ROS1, ALK rearrangement, BRAF mutation not detected. KRAS Exon 2 detected (pG12V). She started systemic therapy with single agent pembrolizumab in 04/2022. She received 3 cycles so far, last being 06/13/2022. 2. Bilateral spontaneous pulmonary embolism. She is on long-term anticoagulation with Eliquis 5 mg p.o. b.i.d.. 3. Right hip pain secondary to bony metastasis. She was started on denosumab 120 mg subQ Q monthly. 4. Immune mediated toxicities. She developed acute pancreatitis and hyperglycemia which was managed conservatively with IV fluids, diet restriction and pain management. That appears to be improving. She is on Lantus which is controlling her hyperglycemia. She has now developed immune mediated diarrhea/colitis. CT scan shows haziness of the mesentry without any bowel wall thickening. She underwent sigmoidoscopy yesterday, biopsy/path report is pending. Stool studies for infectious causes so far negative. Stool calprotectin is pending. CRP is quite elevated. She has grade 2 diarrhea/colitis. I have recommended administering loperamide 3 times a day as scheduled doses and to be given p.r.n. if necessary. If she shows no improvement , she will be started on steroids, prednisone 1 mg/kg. Appreciate GI and hospitalist's input in the care of this patient. Thank you, will follow with you. - Time Spent With Patient Time Spent with Patient (in minutes): 25
[2022-07-18] MEDS: Loperamide HCl 2 MG CAPSULE PO ×3 (09:28→19:54)
[2022-07-18 11:20] LABS: Glucose, Whole Blood 150 mg/dL (60-115)
--- NOTE | 2022-07-18 13:06 | HO.POSTANES ---
Post Anesthesia Evaluation Post Anesthesia Evaluation Vital Signs: Vital Signs Temp Pulse Resp BP Pulse Ox O2 Del Method 07/18/22 08:28 97.1 F 64 17 117/59 L 98 Room Air 07/18/22 03:31 97.1 F 74 16 109/55 L 98 Room Air Anesthesia: Monitored Mental Status: Awake Pain Control: Satisfactory Nausea/Vomiting: None Hydration: Adequate Anesthesia-Related Issues: No Anes. Related Issues
[2022-07-18 13:28] VITALS: O2SAT 94
[2022-07-18] MEDS: Cocoa Butter/Zinc Oxide SUPP.RECT 1 SUPP PR (14:18)
--- NOTE | 2022-07-18 14:48 | P.PNIM_ITS ---
Subjective Subjective Date of Service: 07/18/22 Interval History: admitted to have 5 loose bowel movement last night, since this morning noted to have 1 liquidy stool, complaining of nausea after use of oxycodone, no fevers no chills no worsening abdominal pain. Review of Systems [employer] no headache no dizziness CVS no chest pain, no palpitation Review of Systems: Yes all other systems are reviewed and are negative Physical Exam Vital Signs: Vital Signs: Last Vital Signs Temp 97.1 F 07/18/22 08:28 Pulse 64 07/18/22 08:28 Resp 17 07/18/22 08:28 BP 117/59 L 07/18/22 08:28 Pulse Ox 98 07/18/22 08:28 O2 Del Method 07/18/22 08:28 BMI result Body Mass Index 33.8 Const: Other: General? awake alert x3 resting comfortably, in no acute distress.? Neck supple no JVD. CVS? regular rate rhythm, Respiratory lungs clear to auscultation, no respiratory distress, no wheeze, no rhonchi. Gastrointestinal abdomen soft,?no epigastric discomfort with palpation, no guarding, no rigidity bowel sounds audible. Extremities no edema. Neuro nonfocal ,moving all 4 extremity, speech clear. Skin no rash psych appropriate affect Objective Data Active Medications Acetaminophen (Acetaminophen 325 Mg Tablet) 650 mg PO Q6H PRN PRN Reason: Pain, Mild (Pain Scale 1-3) Acetaminophen (Acetaminophen 325 Mg Tablet) 650 mg PO BID [facility] Last Admin: 07/18/22 08:41 Dose: Not Given Documented By: QUYEN Non-Admin Reason: Patient Refused Alprazolam (Alprazolam 0.25 Mg Tablet) 0.25 mg PO TID PRN PRN Reason: Anxiety Last Admin: 07/17/22 18:38 Dose: 0.25 mg Documented By: TRACY Apixaban (Apixaban 5 Mg Tablet) 5 mg PO BID [facility] Last Admin: 07/18/22 08:39 Dose: 5 mg Documented By: QUYEN Atorvastatin Calcium (Atorvastatin Calcium 80 Mg Tablet) 80 mg PO BEDTIME [facility] Last Admin: 07/17/22 21:14 Dose: 80 mg Documented By: TRACY Clotrimazole (Clotrimazole 1 % Vaginal Cream 45 Gm Tube) 1 appl VAGINAL BEDTIME PRN PRN Reason: VAGINAL ITCH Brayton Butter/Zinc Oxide (Brayton Butter/Zinc Oxide Supp.Rect) 1 supp OR BID [facility] Last Admin: 07/18/22 14:18 Dose: 1 supp Documented By: QUYEN Dextrose (Dextrose 50 % 25 Gm/50 Ml Syringe) 25 gm IVPUSH Q15M PRN; Protocol PRN Reason: per Hypoglycemia Standing Ord. Ferrous Sulfate (Ferrous Sulfate 324 Mg Tablet.Dr) 324 mg PO Q2D [facility] Last Admin: 07/17/22 10:22 Dose: Not Given Documented By: QUYEN Non-Admin Reason: NPO Folic Acid (Folic Acid 1 Mg Tablet) 1 mg PO DAILY [facility] Last Admin: 07/18/22 08:39 Dose: 1 mg Documented By: QUYEN Glucose (Glucose Gel 15 Gm Gel..Gram.) 15 gm PO Q15M PRN; Protocol PRN Reason: per Hypoglycemia Standing Ord. Insulin Glargine (Insulin Glargine,Hum.Rec.Anlog 100 Unit/Ml 10 Ml Vial) 20 unit SUBCUT BEDTIME [facility] Last Admin: 07/17/22 21:13 Dose: 20 unit Documented By: TRACY Insulin Human Lispro (Insulin Lispro 100 Unit/Ml 3 Ml Vial) 0 unit SUBCUT QIDACHS [facility]; Protocol Last Admin: 07/18/22 11:33 Dose: Not Given Documented By: QUYEN Non-Admin Reason: No Insulin Coverage Isosorbide Mononitrate (Isosorbide Mononitrate 30 Mg Tab.Er.24h) 30 mg PO DAILY [facility]; Protocol Last Admin: 07/18/22 08:39 Dose: 30 mg Documented By: QUYEN Lisinopril (Lisinopril 2.5 Mg Tablet) 2.5 mg PO DAILY [facility]; Protocol Last Admin: 07/18/22 08:39 Dose: 2.5 mg Documented By: QUYEN Loperamide HCl (Loperamide Hcl 2 Mg Capsule) 2 mg PO TID [facility] Last Admin: 07/18/22 14:18 Dose: 2 mg Documented By: QUYEN Melatonin (Melatonin 3 Mg Tablet) 3 mg PO BEDTIME PRN PRN Reason: Insomnia Metoprolol Succinate (Metoprolol Succinate Er 50 Mg Tab.Er.24h) 150 mg PO BEDTIME [facility]; Protocol Last Admin: 07/17/22 21:14 Dose: 150 mg Documented By: TRACY Ondansetron HCl (Ondansetron Hcl 4 Mg/2 Ml Vial) 4 mg IVPUSH Q8H PRN PRN Reason: Nausea and Vomiting Ondansetron HCl (Ondansetron Odt 4 Mg Tab.Rapdis) 4 mg TRANSLINGU Q8H PRN PRN Reason: Nausea and Vomiting Last Admin: 07/18/22 08:38 Dose: 4 mg Documented By: QUYEN Oxycodone HCl (Oxycodone Hcl Immed Release 5 Mg Tablet) 5 mg PO Q4H PRN PRN Reason: Pain, Severe (Pain Scale 7-10) Last Admin: 07/18/22 08:38 Dose: 5 mg Documented By: QUYEN Pharmacy Consult (Consult Rx Perform Med Rec) 1 each MISCELLANE ONCE PRN PRN Reason: Consult order Sertraline HCl (Sertraline Hcl 100 Mg Tablet) 100 mg PO DAILY [facility] Last Admin: 07/18/22 08:39 Dose: 100 mg Documented By: QUYEN Sodium Chloride (0.9 % Sodium Chloride Flush 3 Ml Syringe) [facility] Last Admin: 07/18/22 08:41 Dose: 3 ml Documented By: QUYEN Tramadol HCl (Tramadol Hcl 50 Mg Tablet) 50 mg PO BID PRN PRN Reason: Breakthrough Pain, Moderate Last Admin: 07/16/22 14:01 Dose: 50 mg Documented By: RUPINDER Trazodone HCl (Trazodone Hcl 50 Mg Tablet) 50 mg PO BEDTIME [facility] Last Admin: 07/17/22 21:14 Dose: 50 mg Documented By: TRACY Verapamil HCl (Verapamil Hcl Sr 100 Mg Cap24h.Pct) 100 mg PO BEDTIME [facility]; Protocol Last Admin: 07/17/22 21:14 Dose: 100 mg Documented By: TRACY Vitamin D (Cholecalciferol (Vitamin D3) 25 Mcg Tablet) 50 mcg PO DAILY [facility] Last Admin: 07/18/22 08:39 Dose: 50 mcg Documented By: QUYEN Labs CBC & Chem 7: 07/16/22 11:07 07/16/22 11:07 Labs: Laboratory Results - last 24 hr 07/17/22 07/17/22 07/18/22 16:03 19:57 07:15 POC Glucose 86 88 87 07/18/22 11:11 POC Glucose 150 H Assessment and Plan (1) Acute pancreatitis: Status: Acute (2) Abdominal pain: Status: Acute (3) Acute pancreatitis: Status: Acute Plan 77-year-old female with history significant for severe aortic stenosis, Vicente's esophagus, COPD, CAD status post CABG x2, chronic normocytic anemia, uncontrolled insulin-dependent type 2 diabetes, history of bilateral pulmonary embolism anticoagulated with apixaban, 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 1- Abdominal pain and diarrhea less diarrhea since this morning, no epigastric pain, mild lower abdominal discomfort initially fell symptoms related to drug induced pancreatitis- believed related to Keytruda, but clinically this has resolved, lipase is down to 93. -CT abd/pelvis 07/10 showed mild pancreatitis -Lipase 93 on 07/16 improved from 1723 during last admission - repeat CT abdomen showed no significant change somewhat tiffanie appearance of the mesentery with small mesenteric nodes,similar to prior abutting the pancreas, unclear if this could be related to previously reported pancreatitis or mesenteric panniculitis. - underwent sigmoidoscopy 07/17 that showed minimal labrum colonic mucosa, biopsies taken prominent rectal vessels and external hemorrhoids - will place patient on hemorrhoidal cream, minimize use of narcotic medication, add Bentyl, all medications with side effects of diarrhea have been discontinued follow clinical course recommend out of bed to chair and ambulation as tolerated maintain stool chart 2- Uncontrolled insulin dependent type 2 diabetes--much better control BS ,Continue lantus? lower dose secondary to blood sugars around 88,cont.insulin sliding scale monitor blood sugars q.i.d. 3-Diarrhea--C dif negative, concern of colitis, CT abdomen showed no change from before, follow sigmoidoscopy report 4.Hx bilateral pulmonary embolism,Continue apixiban. 5-HTN- stable blood pressure, Continue home meds 5-CAD s/p CABG x2 last year/HLD- no anginal chest pain, continue home medications metorpolol/atorvastatin/isosorbide -Follow outpt with Dr. Hernandez 6-Depression/anxiety -Continue sertraline, trazadone, and alprazolam, 7-Chronic normocytic anemia- stable hematocrit 8. metastatic lung CA outpatient follow-up with Dr. Perdue 9. Anxiety--cont. Xanax DVT prophylaxis- continue apixiban Full code Need for inaptient: abdominal pain, diarrhea, ? colitis, need for hydration and further testing seen by physical therapy they do not recommend PT at this time Quality Stroke Does the patient have a stroke diagnosis?: No VTE Prior VTE?: No VTE Risk Level:: Medical - moderate - high VTE Device Contraindication: Treatment Not Indicated VTE Drug Contraindication: N/A - Med Ordered
[2022-07-18 15:11] VITALS: BP 100/59; PULSE 79; RESP 17; TEMP 36.3; O2SAT 97
[2022-07-18] MEDS: Dicyclomine HCl 10 MG CAPSULE PO (15:30)
[2022-07-18 15:34] LABS: Glucose, Whole Blood 168 mg/dL (60-115)
[2022-07-18] MEDS: Insulin Lispro 100 UNIT/ML 3 ML VIAL SUBCUT (16:18)
[2022-07-18 19:14] VITALS: BP 104/53; PULSE 78; RESP 16; TEMP 36.5; O2SAT 96
[2022-07-18 19:22] LABS: Glucose, Whole Blood 113 mg/dL (60-115)
[2022-07-18] MEDS: Metoprolol Succinate ER 50 MG TAB.ER.24H 150 MG PO (19:53)
[2022-07-18] MEDS: Atorvastatin Calcium 80 MG TABLET PO (19:54)
[2022-07-18] MEDS: traZODone HCL 50 MG TABLET PO (19:55)
[2022-07-18] MEDS: Acetaminophen 325 MG TABLET 650 MG PO (19:55)
[2022-07-18] MEDS: Insulin Glargine,Hum.rec.anlog 100 UNIT/ML 10 ML VIAL 16 UNIT SUBCUT (19:56)
[2022-07-18] MEDS: ALPRAZolam 0.25 MG TABLET PO (20:02)
[2022-07-18] MEDS: Omeprazole 40 MG CAPSULE.DR PO (22:30)
[2022-07-18 23:27] VITALS: BP 117/58; PULSE 74; RESP 16; TEMP 36.9; O2SAT 95
[2022-07-19 07:00] LABS: Hematocrit 25.8 % (37.0-47.0); Hemoglobin 8.2 g/dl (12.0-16.0); Mean Corpuscular HGB Conc 31.8 g/dl (31.0-35.0); Mean Corpuscular Hemoglobin 30.1 pg (27.0-33.0); Mean Corpuscular Volume 94.9 fL (80.0-98.0); Mean Platelet Volume 9.6 fL (9.4-12.3); Platelet Count 282 X10*3/uL (160-400); Red Blood Count 2.72 X10*6/uL (4.20-5.50); Red Cell Distribution Width 16.2 % (11.0-16.0); White Blood Count 6.3 X10*3/uL (4.8-10.8)
[2022-07-19 07:28] LABS: Anion Gap 13 (12-20); Blood Urea Nitrogen 6 mg/dL (9-16); Calcium 7.1 mg/dL (8.4-10.2); Carbon Dioxide 25 mmol/L (22-29); Chloride 111 mmol/L (96-108); Creatinine Clr Calc Pharmacy 66.3; Estimated Glomerular Filt Rate > 60; Glucose Random 79 mg/dL (60-115); Potassium 2.9 mmol/L (3.3-5.1); Sodium 146 mmol/L (135-145)
[2022-07-19 07:38] LABS: Glucose, Whole Blood 84 mg/dL (60-115)
[2022-07-19 07:47] VITALS: BP 114/68; PULSE 74; RESP 18; TEMP 36.3; O2SAT 96
[2022-07-19] MEDS: Acetaminophen 325 MG TABLET 650 MG PO (08:34)
[2022-07-19] MEDS: Folic Acid 1 MG TABLET PO (08:35)
[2022-07-19] MEDS: Cholecalciferol (Vitamin D3) 25 MCG TABLET 50 MCG PO (08:35)
[2022-07-19] MEDS: Sertraline HCL 100 MG TABLET PO (08:35)
[2022-07-19] MEDS: Apixaban 5 MG TABLET PO (08:35)
[2022-07-19] MEDS: Isosorbide Mononitrate 30 MG TAB.ER.24H PO (08:35)
[2022-07-19] MEDS: lisinopriL 2.5 MG TABLET PO (08:35)
[2022-07-19] MEDS: Loperamide HCl 2 MG CAPSULE PO ×2 (08:35→14:29)
[2022-07-19] MEDS: 0.9 % Sodium Chloride Flush 3 ML SYRINGE IVFLUSH (08:42)
[2022-07-19] MEDS: Ferrous Sulfate 324 MG TABLET.DR PO (09:24)
[2022-07-19] MEDS: Potassium Chloride ER 20 MEQ TAB.ER.PRT 60 MEQ PO (10:15)
[2022-07-19 11:12] VITALS: BP 100/49; PULSE 70; RESP 16; TEMP 36.2; O2SAT 97
[2022-07-19 11:22] LABS: Glucose, Whole Blood 110 mg/dL (60-115)
[2022-07-19 13:00] VITALS: O2SAT 97
[2022-07-19] MEDS: Dicyclomine HCl 10 MG CAPSULE PO (14:29)
[2022-07-19 15:38] VITALS: BP 109/54; PULSE 61; RESP 17; TEMP 36.3; O2SAT 98
[2022-07-19 15:54] LABS: Glucose, Whole Blood 145 mg/dL (60-115)
--- NOTE | 2022-07-19 16:17 | PM.DS ---
DS: Providers Provider Date of Service: 07/28/22 Date of admission: 07/13/22 15:08 Primary care physician: Unknown Physician Consults: 07/16/22 12:08 Consult to Gastroenterology Routine Consulting Provider: Abebe Alegre Reason for consultation: Unexplained dirrhea ? autoimmune colitis Has provider been notified: No 07/18/22 11:00 Consult to Hematology / Oncology Routine Consulting Provider: Maine Perdue Reason for consultation: ? immune colitis Has provider been notified: Yes DS: Diagnosis Discharge Diagnosis (1) Acute pancreatitis: Status: Resolved (2) Abdominal pain: Status: Resolved (3) Acute pancreatitis: Status: Resolved DS: Summary Hospital Course Hospital Course: history of presenting illness Chief Complaint: ? Abdominal pain/ hyperglycemia ?77-year-old female patient recently discharged from [facility] on 07/12, after 3 day stay in the hospital for acute pancreatitis related to Keytruda and was treated conservatively with IV fluids analgesics, as per patient she was feeling better yesterday with stable abdominal pain but after going home she ate [employer] sandwich, half fries and milk shake, later in the evening patient developed worsening epigastric pain, and a new left lower quadrant abdominal pain associated with? loose watery yellowish frothy stools, her last bowel movement was 3 hours ago she complained of associated nausea with no vomiting with these symptoms she presented to her primary oncologist Dr. Perdue who treated her with 1 L of IV fluid and requested admission for persistent abdominal pain and hyperglycemia, as per patient her left lower quadrant abdominal pain started after eating [employer] and her epigastric pain is stable since yesterday, she denies fever, chills denies, new medication she also complained of headache, no dizziness, she complained of high blood sugars at home up to 400,s she was discharged home on Lantus? 15 units at bedtime, prior to acute pancreatitis patient was on Glucophage with good blood sugar controls, patient denies sick contacts, no change in medications since discharge. 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 1- Abdominal pain and diarrhea patient admitted with a diagnosis of drug-induced pancreatitis believed related to Keytruda, patient treated with IV fluids, analgesics and NPO, patient abdominal pain gradually improved She continued to have on and off diarrhea, that is slowing down, currently patient is tolerating diet, ambulating from bed to bathroom with steady gait, her lipase improved to 93 from 1723 from last admission, stool for C diff is negative,-CT abd/pelvis 07/10 showed mild pancreatitis, repeat CT abdomen showed no significant change?somewhat tiffanie appearance of the mesentery with small mesenteric nodes,similar to prior abutting the pancreas, unclear if this could be related to previously reported pancreatitis or mesenteric? panniculitis, underwent sigmoidoscopy 07/17 that showed? minimal abnormal colonic mucosa, biopsies taken prominent rectal vessels and external hemorrhoids, Patient treated with hemorrhoidal creams, Imodium and since she has improved she is being discharged home with recommendations to have outpatient follow-up with Dr. Perdue 2- Uncontrolled insulin dependent type 2 diabetes--much better control? BS ,Continue lantus? lower dose secondary to blood sugars around 88,cont.insulin sliding scale monitor blood sugars q.i.d. 3-Diarrhea--C diff negative, recommend to continue Imodium, avoid stool softeners and take bland diet. 4.Hx bilateral pulmonary embolism,Continue apixiban. 5-HTN-? stable blood pressure, Continue home meds 5-CAD s/p CABG x2 last year/HLD- no anginal chest pain,? continue home medications metorpolol/atorvastatin/isosorbide, recommend outpatient follow-up with Dr. Hernandez 6-Depression/anxiety -Continue sertraline, trazadone, and alprazolam, 7-Chronic normocytic anemia-? stable hematocrit 8. metastatic lung CA outpatient follow-up with Dr. Perdue 9. Anxiety--cont. Xanax Time Spent with Patient Time attestation: Total time spent providing and/or coordinating discharge services: Discharge coordination time: Greater than 30 minutes Quality: Safe Use of Opioids Does Pt have an Active Cancer Diagnosis on the Problem List?: No Quality: Stroke Does the patient have a stroke diagnosis?: No Physical Exam Vital Signs: Vital Signs: Last Vital Signs Temp 97.4 F 07/19/22 15:38 Pulse 61 07/19/22 15:38 Resp 17 07/19/22 15:38 BP 109/54 L 07/19/22 15:38 Pulse Ox 98 07/19/22 15:38 O2 Del Method 07/19/22 15:38 BMI result Body Mass Index 33.8 Const: Other: General? awake keith rt x3 resting comf ortably, in no acu te distress.? Neck supple no JVD. CV S? regular rate rh ythm, Respiratory lungs clear to aus cultation, no resp iratory distress, no wheeze, no rhon chi. Gastrointesti nal abdomen soft,? no epigastric disc omfort with palpat ion, no guarding, no rigidity bowel sounds audible. Ex tremities no edema . Neuro nonfocal , moving all 4 extre mity, speech clear . Skin no rash psy ch appropriate aff ect DS: Data Data Completed and Pending Completed studies during hospitalization [Text1]: Pending at discharge 07/17/22 14:07 Surgical [PTH] Routine Procedures Excision of Esophagus, Via Natural or Artificial Opening Endoscopic, Diagnostic (12/08/20) Excision of Jejunum, Via Natural or Artificial Opening Endoscopic, Diagnostic (12/08/20) Excision of Stomach, Pylorus, Via Natural or Artificial Opening Endoscopic, Diagnostic (12/08/20) Inspection of Upper Intestinal Tract, Via Natural or Artificial Opening Endoscopic (09/02/21) Transfusion of Nonautologous Red Blood Cells into Peripheral Vein, Percutaneous Approach (09/02/21) Labs on day of discharge: Laboratory Results - last 24 hr 07/18/22 07/19/22 07/19/22 19:18 05:45 05:45 WBC 6.3 RBC 2.72 L Hgb 8.2 L Hct 25.8 L MCV 94.9 MCH 30.1 MCHC 31.8 RDW 16.2 H Plt Count 282 MPV 9.6 Absolute Nucleated RBC 0.000 Nucleated RBC % (auto) 0.0 Sodium 146 H Potassium 2.9 L Chloride 111 H Carbon Dioxide 25 Anion Gap 13 BUN 6 L Creatinine 0.68 Estim Creat Clear Calc 66.3 Estimated GFR > 60 POC Glucose 113 Random Glucose 79 Calcium 7.1 L 07/19/22 07/19/22 07/19/22 07:32 11:16 15:41 WBC RBC Hgb Hct MCV MCH MCHC RDW Plt Count MPV Absolute Nucleated RBC Nucleated RBC % (auto) Sodium Potassium Chloride Carbon Dioxide Anion Gap BUN Creatinine Estim Creat Clear Calc Estimated GFR POC Glucose 84 110 145 H Random Glucose Calcium Discharge Plan Discharge Anticipated Discharge Date/Time: 07/19/22 16:17 Patient Disposition: Home, Self-Care Discharge Diagnosis: Abdominal pain and diarrhea Hyperglycemia with type 2 diabetes mellitus Referrals: Physician,Unknown J [Physician] - 1 Week Discharge Medications: New loperamide 2 mg Capsule 2 mg PO TID Qty: 60 0RF Continued folic acid 1 mg tablet 1 mg PO DAILY 90 Days Qty: 90 2RF clotrimazole 2 % cream 1 appful vaginal BEDTIME PRN (Reason: VAGINAL ITCH) Qty: 21 1RF metoprolol succinate 50 mg tablet extended release 24 hr 150 mg PO BEDTIME Qty: 270 3RF (DME) blood-glucose meter [OneTouch Ultra2 Meter] [facility] [place] See Rx Instructions .Route Qty: 1 0RF Rx Instructions: As directed to test blood sugar once a day (DME) OneTouch Ultra Test Strip See Rx Instructions .Route Qty: 100 3RF Rx Instructions: test blood sugar once daily (DME) lancets [OneTouch Delica Lancets] 33 gauge [facility] See Rx Instructions .Route Qty: 100 3RF Rx Instructions: test blood sugar once a day omeprazole 40 mg capsule,delayed release(DR/EC) 40 mg PO DAILY 90 Days Qty: 90 2RF atorvastatin 80 mg tablet 80 mg PO BEDTIME Qty: 90 0RF trazodone 50 mg tablet 50 mg PO BEDTIME Qty: 90 0RF Eliquis 5 mg tablet 1 tab PO Q12H sertraline [Zoloft] 100 mg tablet 100 mg PO DAILY nystatin 100,000 unit/gram Powder 1 appl TOPICAL TID Qty: 100 0RF tramadol 50 mg Tablet 50 mg PO BID PRN (Reason: Breakthrough Pain, Moderate) Qty: 30 0RF lisinopril 2.5 mg Tablet 2.5 mg PO DAILY insulin glargine [Lantus Solostar U-100 Insulin] 100 unit/mL (3 mL) insulin pen 15 unit subcut QPM Qty: 15 1RF insulin lispro [Humalog KwikPen Insulin] 100 unit/mL insulin pen See Rx Instructions .ROUTE .COMPLEX Rx Instructions: Give on a sliding scale TID, as follows: Blood sugar: 200-300: 5 units subQ pre meals. Blood sugar: 300-400: 8 units subQ. Blood sugar: >400: 10 units subQ. And call primary doctor. verapamil 100 mg capsule, [address] 100 mg PO BEDTIME cholecalciferol (vitamin D3) 50 mcg (2,000 unit) capsule 50 mcg PO DAILY ferrous fumarate 325 mg (106 mg iron) tablet 325 mg PO Q2D (DME) pen needle, diabetic [BD Ultra-Fine Orig Pen Needle] 29 gauge x 1/2 needle See Rx Instructions .Route Qty: 100 0RF Rx Instructions: As directed acetaminophen 500 mg tablet 500 mg PO BID Rx Instructions: Patient takes scheduled BID (in pill box) isosorbide mononitrate 30 mg tablet extended release 24 hr 30 mg PO DAILY Discontinued sennosides-docusate sodium [Senna with Docusate Sodium] 8.6-50 mg Tablet 1 tab-cap PO BEDTIME Qty: 30 2RF polyethylene glycol 3350 [Miralax] 17 gram Powder In Packet 17 g PO DAILY Qty: 30 4RF nystatin 100,000 unit/mL suspension 1 ml BUCCAL BID Rx Instructions: administer 1/2 of dose in each side of the mouth oxycodone 5 mg tablet 5 mg PO Q6H PRN (Reason: pain (scale score 7-10)) Qty: 14 0RF Rx Instructions: Partial Fill upon patient request. loratadine [Allergy Relief (loratadine)] 10 mg tablet 10 mg PO DAILY Qty: 30 0RF No Action oxycodone 5 mg Capsule 5 mg PO Q6H PRN (Reason: Pain) Qty: 50 0RF Rx Instructions: Partial Fill upon patient request. alprazolam 0.25 mg Tablet 0.25 mg PO DAILY PRN (Reason: Anxiety) Qty: 30 0RF Discharge Orders: Discharge Order (Routine); Ordered 07/19/22 Ordered By: Kar Baeza Diet: Diabetic diet Activity on Discharge: As tolerated Stand Alone Forms: Patient Portal Discharge page Care Plan Goals: Take bland diet that includes rice,banana, bread, pudding avoid high-fiber diet like fruits and green leafy vegetables, take Imodium 2 mg tablet 3 times a day , return to check with recurrent symptoms of nausea vomiting abdominal pain or worsening diarrhea Take Lantus 15 units at bedtime, monitor blood sugars q.i.d., take small snack at bedtime Health Concerns: Continue all home medications as before Plan of Treatment: Outpatient follow-up with Dr. Perdue in 1 week Assessment: As above Discharge Date/Time: 07/19/22 17:08
[2022-07-19 16:18] LABS: Anion Gap 13 (12-20); Blood Urea Nitrogen 7 mg/dL (9-16); Calcium 7.1 mg/dL (8.4-10.2); Carbon Dioxide 23 mmol/L (22-29); Chloride 110 mmol/L (96-108); Creatinine Clr Calc Pharmacy 58.6; Estimated Glomerular Filt Rate > 60; Glucose Random 156 mg/dL (60-115); Potassium 3.3 mmol/L (3.3-5.1); Sodium 143 mmol/L (135-145)
[2022-07-19] MEDS: Potassium Chloride ER 20 MEQ TAB.ER.PRT PO (16:38)
[2022-07-22 16:31] LABS: Calprotectin, Fecal 535 mcg/g
[2022-07-31 20:22] LABS: Pancreatic Elastase-1 <15 mcg/g
== END 2022-07-19 17:08 | disposition home or self-care (01) | DRG 439 ==
PROVIDERS: Internal Medicine; Admitting Provider Hospitalist; PCP Internal Medicine; Visit Provider Hospitalist
PROC: 0DJD8ZZ Inspection of Lower Intestinal Tract, Via Natural or Artificial Opening Endoscopic (ICD-10-PCS; CPT 45330; principal; 2022-07-17 14:00)
DX: K85.30 Drug induced acute pancreatitis without necrosis or infection (principal); C34.12 Malignant neoplasm of upper lobe, left bronchus or lung; C79.51 Secondary malignant neoplasm of bone; K52.1 Toxic gastroenteritis and colitis; T45.1X5A Adverse effect of antineoplastic and immunosuppressive drugs, initial encounter; J44.9 Chronic obstructive pulmonary disease, unspecified; E78.2 Mixed hyperlipidemia; G25.81 Restless legs syndrome; Z96.651 Presence of right artificial knee joint; E11.65 Type 2 diabetes mellitus with hyperglycemia; F41.9 Anxiety disorder, unspecified; D63.0 Anemia in neoplastic disease; F32.A Depression, unspecified; D64.9 Anemia, unspecified; I08.0 Rheumatic disorders of both mitral and aortic valves; K64.4 Residual hemorrhoidal skin tags; I25.10 Atherosclerotic heart disease of native coronary artery without angina pectoris; Z95.1 Presence of aortocoronary bypass graft; Z95.5 Presence of coronary angioplasty implant and graft; Z87.891 Personal history of nicotine dependence; Z86.711 Personal history of pulmonary embolism; Z88.2 Allergy status to sulfonamides; Z88.5 Allergy status to narcotic agent; Z88.8 Allergy status to other drugs, medicaments and biological substances; Z79.4 Long term (current) use of insulin; Z79.01 Long term (current) use of anticoagulants; Z79.899 Other long term (current) drug therapy
CPT/HCPCS: 45331; 36415; 74177; 80048; 82656; 82947; 83690; 83993; 85027; 86140; 87493; 87507; 88305; 97161; 99218; J1170; Q9967

== ENCOUNTER → 2022-08-07 14:32 | Outpatient (BNVA) | payer MEDICARE, SELFPAY | PROVIDERS: PCP Internal Medicine; Visit Provider Internal Medicine | DX: K64.9 Unspecified hemorrhoids (principal); E11.65 Type 2 diabetes mellitus with hyperglycemia | CPT/HCPCS: 99212 ==

== ENCOUNTER 2022-08-14 10:58 | Outpatient (REF) | payer MEDICARE, SELFPAY ==
--- NOTE | ~2022-08-14 | PE_ITS ---
EXAMINATION: Fluorine-18 FDG PET/CT Scan CLINICAL INDICATION: Subsequent treatment management. Adenocarcinoma of right lung, restaging. PROCEDURE: 63 minutes following the intravenous administration of 17.8 mCi of fluorine 18 FDG, images from the base of the skull to the mid thighs were obtained using a combined PET/CT scanner with CT scan based attenuation correction. No oral contrast was administered. No intravenous contrast was administered. Transverse, coronal, sagittal, and volume reconstruction projections were obtained. The patient's blood glucose as determined by a finger stick, was 189 mg/dl immediately prior to injection. Total CT exam dose-length product 585.82 mGy-cm * These CT images were obtained using dose optimization techniques as appropriate, variously including the following: Automated exposure control * Adjustment of mA and/or kV according to patient size (this includes techniques or standardized protocols for targeted exams where dose is matched to indication/reason for exam; i.e. extremities or head) * Use of iterative reconstruction technique COMPARISON: The previous PET CT scan dated 09/12/2021 is available for comparison. CT scan of the abdomen and pelvis dated 07/16/[address] angiogram of the chest dated 06/01/2022 are also available for comparison. FINDINGS: (Slice numbers described in this report are numbered superiorly to inferiorly with slice #1 in the head) NECK AND VISUALIZED HEAD: No foci of abnormal FDG activity are noted. The distribution of FDG activity is physiological. There is no cervical lymphadenopathy. THORAX: A posterior pleural-based left upper lobe pulmonary nodule is visualized, now measuring 0.7 x 0.3 cm in largest transverse dimensions. This is similar in appearance to the recent 06/01/2022 CT angiogram of the chest, but slightly smaller than on the prior PET CT scan dated 09/12/2021 when this measured 0.8 x 0.6 cm. This does not show abnormal FDG activity on the current study, but is probably too small to be characterized on the FDG PET images. This shows weak FDG activity on 09/12/2021 and this weak activity is no longer present. No additional significant pulmonary nodules are visualized on these nondiagnostic CT images. There are no foci of abnormal FDG activity in the chest. There is no mediastinal, supraclavicular, or axillary lymphadenopathy. The patient is status post sternotomy with multiple sternal wires in place. There is no abnormal FDG activity in the sternum. There is no pleural or pericardial fluid, or pneumothorax. ABDOMEN AND PELVIS: There are no foci of abnormal FDG activity in the abdomen or pelvis. The liver, gallbladder, spleen, pancreas and adrenal glands are unremarkable. A punctate calcification in the upper pole of the left kidney, slice 115/223 is noted and is similar to the recent 07/16/[address] scan but was not apparent on the less recent 09/12/[address] scan. The kidneys are otherwise unremarkable. There is no retroperitoneal, mesenteric, pelvic or inguinal lymphadenopathy. Mild FDG activity is present throughout the gastrointestinal tract, without a suspicious focal component, likely physiological. There is diverticulosis without evidence of diverticulitis. The hollow viscera are otherwise unremarkable. MUSCULOSKELETAL: There is a predominantly sclerotic focus in the right iliac bone with no associated abnormal FDG activity. This is unchanged in appearance on the 07/16/2022 CT scan of the abdomen and pelvis, but was not present on the prior 09/12/[address] scan. VASCULAR: A stable 3.2 cm infrarenal abdominal aortic aneurysm is noted. Diffuse vascular calcifications including coronary are present. PET/PET CT fusion skull to thigh IMPRESSION: 1. A subcentimeter posterior pleural-based left lower lobe pulmonary nodules visualized. This is smaller than on the prior PET CT scan and now shows no FDG activity, but is probably too small to be characterized on the FDG PET images. 2. A sclerotic lesion is present in the right iliac bone unchanged from the recent 07/16/2022 CT scan of the abdomen and pelvis but new since the prior 09/12/[address] scan. This may represent a healed metastasis or a healing traumatic lesion. 3. No additional abnormalities suspicious for metastatic or other malignant lesions are noted. 4. Diffuse vascular calcifications including coronary.
== END 2022-08-14 10:59 | disposition home or self-care (01) ==
LOC: HO.PET 10:58
PROVIDERS: Visit Provider Internal Medicine
DX: Z13.89 Encounter for screening for other disorder (principal)

== ENCOUNTER 2022-10-31 10:47 | Outpatient (REF) | payer MEDICARE, SELFPAY ==
[2022-10-31 13:59] LABS: MANUAL DIFF FLAG NO
[2022-10-31 14:05] LABS: Basophils Percent Auto 0.4 % (0-2); Eosinophils Absolute Auto 0.1 X10*3/uL (0.0-0.4); Eosinophils Percent Auto 1.4 % (0-4); Hematocrit 34.8 % (37.0-47.0); Imm Gran Abs Auto 0.02 X10*3/uL (0.00-0.03); Imm Gran Pct Auto 0.4 % (0.0-0.4); Lymphocytes Percent Auto 17.2 % (20-40); Mean Corpuscular HGB Conc 31.6 g/dl (31.0-35.0); Mean Corpuscular Hemoglobin 29.3 pg (27.0-33.0); Mean Corpuscular Volume 92.6 fL (80.0-98.0); Mean Platelet Volume 11.6 fL (9.4-12.3); Monocytes Absolute Auto 0.5 X10*3/uL (0.1-1.2); Neutrophils Percent Auto 71.6 % (45-73); Platelet Count 227 X10*3/uL (160-400); Red Blood Count 3.76 X10*6/uL (4.20-5.50); Red Cell Distribution Width 13.5 % (11.0-16.0); White Blood Count 5.6 X10*3/uL (4.8-10.8)
[2022-10-31 14:19] LABS: Estimated Average Glucose 223 mg/dL; Hemoglobin A1c % 9.4 %
[2022-10-31 14:32] LABS: Cholesterol 104 mg/dL; HDL Cholesterol 33 mg/dL; LDL Cholesterol Calculated 53 mg/dl; Triglycerides 93 mg/dL
[2022-10-31 14:40] LABS: Vitamin D 25-OH Total 35.7 ng/mL (>30)
[2022-10-31 14:57] LABS: Folate 14.9 ng/mL (> or = 4.0); Vitamin B12 518 pg/mL (200-900)
== END 2022-10-31 10:48 | disposition home or self-care (01) ==
LOC: HO.HMGCLDS 10:47
PROVIDERS: PCP Internal Medicine; Visit Provider Internal Medicine
DX: C34.92 Malignant neoplasm of unspecified part of left bronchus or lung (principal); E11.65 Type 2 diabetes mellitus with hyperglycemia; E78.2 Mixed hyperlipidemia; D64.9 Anemia, unspecified; E53.8 Deficiency of other specified B group vitamins; K64.9 Unspecified hemorrhoids; G25.81 Restless legs syndrome; N95.9 Unspecified menopausal and perimenopausal disorder
CPT/HCPCS: 36415; 80061; 82306; 82607; 82746; 83036; 85025

== ENCOUNTER 2022-11-27 07:57 | Outpatient (REF) | payer MEDICARE, SELFPAY ==
--- NOTE | ~2022-11-27 | XR_ITS ---
EXAMINATION: KNEE X-RAY CLINICAL INFORMATION: Pain COMPARISON: Previous x-ray August 2016 TECHNIQUE: Standing AP view of both knees and lateral and sunrise view of the left knee FINDINGS: Left: Bone alignment is normal. No fracture or dislocation. Mild arthritis at the medial femoral tibial and patellofemoral joints. Moderate joint effusion. Atherosclerotic disease. Standing AP view of the right knee demonstrate a right knee replacement in satisfactory position. XR/XR knee standing BI IMPRESSION: Mild left knee arthritis. Joint effusion.
--- NOTE | ~2022-11-27 | XR_ITS ---
EXAMINATION: KNEE X-RAY CLINICAL INFORMATION: Pain COMPARISON: Previous x-ray August 2016 TECHNIQUE: Standing AP view of both knees and lateral and sunrise view of the left knee FINDINGS: Left: Bone alignment is normal. No fracture or dislocation. Mild arthritis at the medial femoral tibial and patellofemoral joints. Moderate joint effusion. Atherosclerotic disease. Standing AP view of the right knee demonstrate a right knee replacement in satisfactory position. XR/XR knee LT 2V IMPRESSION: Mild left knee arthritis. Joint effusion.
== END 2022-11-27 07:58 | disposition home or self-care (01) ==
LOC: HO.HOSX 07:57
PROVIDERS: Visit Provider Physician Assistant
DX: M17.12 Unilateral primary osteoarthritis, left knee (principal)
CPT/HCPCS: 20610; 73560; 73565; 99202; J1020

== ENCOUNTER 2023-01-12 14:00 | Emergency (ER) | payer MEDICARE, SELFPAY ==
[2023-01-12 14:05] VITALS: BP 168/48; PULSE 52; RESP 16; O2SAT 97; BMI 29.7
--- NOTE | 2023-01-12 14:05 | ED_ITS ---
HPI - General Adult General Chief complaint: Weakness Stated complaint: low blood sleepy Related Data Home Medications ?Medication ?Instructions ?Recorded ?Confirmed cholecalciferol (vitamin D3) 50 50 mcg PO DAILY 10/26/20 03/06/24 mcg (2,000 unit) capsule verapamil 100 mg capsule 24hr 100 mg PO BEDTIME 10/26/20 03/06/[address],ext.release acetaminophen 500 mg tablet 500 mg PO BID 11/07/20 03/06/24 isosorbide mononitrate 30 mg 30 mg PO DAILY 10/02/21 03/06/24 tablet,extended release 24 hr apixaban 5 mg tablet (Eliquis) 1 tab PO Q12H 02/19/22 03/06/24 ferrous fumarate 325 mg (106 mg 325 mg PO Q2D 03/16/22 03/06/24 iron) tablet loperamide 2 mg capsule 2 mg PO TID PRN 03/30/24 sennosides 8.6 mg capsule (senna) 8.6 mg PO BEDTIME PRN 03/30/24 Previous Rx's ?Medication ?Instructions ?Recorded clotrimazole 2 % vaginal cream 1 appful vaginal BEDTIME PRN 10/31/21 VAGINAL ITCH #21 grams blood sugar diagnostic (OneTouch #100 ea 12/26/21 Ultra Test strips) blood-glucose meter (OneTouch #1 ea 12/26/21 Ultra2 Meter) Donut pillow #1 ea 08/07/22 cetirizine 10 mg capsule (Zyrtec) 10 mg PO DAILY #30 caps 08/22/22 lancets 33 gauge (OneTouch Delica #100 ea 09/26/22 Lancets) flash glucose scanning reader #1 ea 11/11/22 (FreeStyle [place] 2 [place]) clotrimazole-betamethasone 1 1 appl topical BID 10 days #45 01/17/23 %-0.05 % topical cream grams pen needle, diabetic 29 gauge x #400 ea 04/01/23/2 (BD Ultra-Fine Original Pen Needle) folic acid 1 mg tablet 1 mg PO DAILY 90 days #90 tabs 07/29/23 atorvastatin 80 mg tablet 80 mg PO BEDTIME #100 tabs 08/06/23 omeprazole 40 mg capsule,delayed 40 mg PO DAILY 90 days #90 caps 10/18/23 release oapoab-[id number]-rqqymej 1 cap PO TID 30 days #90 caps 11/06/23 10,000-32,000-42,000 unit capsule,delayed rel (Zenpep) insulin glargine 100 unit/mL (3 10 unit (0.1 mL) subcut QPM #15 mL 11/25/23 mL) subcutaneous pen (Lantus Solostar U-100 Insulin) ondansetron 4 mg disintegrating 4 mg PO Q8H PRN nausea and 11/25/23 tablet vomiting 30 days #30 tabs lisinopril 2.5 mg tablet 2.5 mg PO DAILY #90 tabs 12/10/23 sertraline 100 mg tablet (Zoloft) 150 mg (1.5 x 100 mg) PO DAILY 3 02/10/24 months #135 tabs oxycodone 10 mg tablet 10 mg PO Q6-8H PRN Pain #90 tabs 02/14/24 lorazepam 0.5 mg tablet 0.5 mg PO .qd PRN anxiety attack 02/18/24 #14 tabs trazodone 50 mg tablet 50 mg PO BEDTIME #90 tabs 03/03/24 flash glucose sensor (FreeStyle #6 ea 03/11/24 [place] 2 Sensor kit) azelastine 137 mcg (0.1 %) nasal 2 spray intranasal BID PRN 03/15/24 spray postnasal drip #90 mL metformin 500 mg tablet,extended 500 mg PO BID 90 days #180 tabs 03/30/24 release 24 hr hyoscyamine sulfate 0.125 mg tablet 0.125 mg PO BID PRN for 04/09/24 indigestion #60 tabs metformin 750 mg tablet,extended 750 mg PO DAILY #90 tabs 04/10/24 release 24 hr metoprolol succinate 50 mg 150 mg (3 x 50 mg) PO BEDTIME #270 04/10/24 tablet,extended release 24 hr tabs Allergies Allergy/AdvReac Type Severity Reaction Status Date / Time sulfamethoxazole Allergy Severe Rash Verified 03/30/24 13:04 [From Bactrim] adhesive tape [ADHESIVE TAPE] Allergy Intermediate BLISTERS Verified 03/30/24 13:04 clonidine Allergy makes pt Verified 03/30/24 13:04 hulusinate adhesive AdvReac Severe BLISTERS Verified 03/30/24 13:04 gabapentin AdvReac Severe hallucinati Verified 03/30/24 13:04 on hydromorphone [From Dilaudid] AdvReac Severe Hallucinati Verified 03/30/24 13:04 ons morphine AdvReac Severe hallucinati Verified 03/30/24 13:04 on glue AdvReac Severe BLISTERS Uncoded 03/30/24 13:04 PMFSH Past Medical History Medical History (Updated 04/16/24 @ 14:16 by ALICIA Mccann) Depression Diabetes mellitus with hyperglycemia, with long-term current use of insulin Swelling of knee joint, left Hx of sigmoidoscopy Metformin adverse reaction Adenocarcinoma of left lung (~2021) Aortic stenosis Atypical migraine Transient cerebral ischemia AVM (arteriovenous malformation) of colon Normocytic anemia Nonrheumatic mitral valve regurgitation Nonrheumatic aortic (valve) stenosis Obesity History of blood transfusion Barretts esophagus AAA (abdominal aortic aneurysm) (~2008) Bleeding hemorrhoids Anemia Arthritis On anticoagulant therapy (~10/2020) On beta [place] at home Pulmonary nodules Mixed dyslipidemia Vitamin B12 deficiency GIB (gastrointestinal bleeding) COPD (chronic obstructive pulmonary disease) Bilateral pulmonary embolism (~10/2020) Restless leg syndrome Irritable bowel syndrome with both constipation and diarrhea GERD without esophagitis CAD (coronary artery disease) Essential hypertension Surgical History History of lung biopsy (~2021) History of esophagogastroduodenoscopy (EGD) (~2020) History of hysterectomy History of colonoscopy (~2018) History of coronary artery bypass graft x 2 (~2017) History of total right knee replacement (TKR) (~2015) History of bilateral breast reduction surgery (~2010) S/P excision of lipoma (~2017) History of heart artery stent (~2007) Family History Family History Father HTN (hypertension) Myocardial infarction Hyperlipidemia Abdominal aneurysm Mother HTN (hypertension) Myocardial infarction Hyperlipidemia Brother Alzheimer's disease Substance abuse Sister Rheumatoid arthritis Brother Rheumatoid arthritis Maternal Aunt Diabetes mellitus Lung cancer Maternal Uncle Diabetes mellitus Son No problems noted. Daughter No problems noted. 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 Denies bleeding however states this is how she feels when she is anemic. reports epigastric pressure/pain. Physical exam with tenderness to palpation in epigastric and left upper quadrant. Plan labs, imaging, EKG, troponin, type and screen Medical Decision Making Lab Data 01/12/23 14:25 01/12/23 14:25 Labs: Lab Results 01/12/23 Range/Units 14:25 WBC 5.3 (4.8-10.8) X10*3/uL RBC 3.84 L (4.20-5.50) X10*6/uL Hgb 11.7 L (12.0-16.0) g/dl Hct 36.7 L (37.0-47.0) % MCV 95.6 (80.0-98.0) fL MCH 30.5 (27.0-33.0) pg MCHC 31.9 (31.0-35.0) g/dl RDW 13.4 (11.0-16.0) % Plt Count 216 (160-400) X10*3/uL MPV 10.6 (9.4-12.3) fL Immature Gran % (Auto) 0.2 (0.0-0.4) % Neut % (Auto) 66.8 (45-73) % Lymph % (Auto) 22.9 (20-40) % [place] % (Auto) 8.8 (2-11) % Eos % (Auto) 1.1 (0-4) % Baso % (Auto) 0.2 (0-2) % Lymph # (Auto) 1.2 (1.2-4.9) X10*3/uL [place] # (Auto) 0.5 (0.1-1.2) X10*3/uL Eos # (Auto) 0.1 (0.0-0.4) X10*3/uL Baso # (Auto) 0.0 (0.0-0.2) X10*3/uL Abs Immat Gran (auto) 0.01 (0.00-0.03) X10*3/uL Absolute Neuts (auto) 3.6 (2.0-8.3) x10*3/uL Absolute Nucleated RBC 0.000 (0.0-0.012) X10*3/uL Nucleated RBC % (auto) 0.0 (0.0-0.2) /100WBC PT 13.6 H (10.0-13.1) SEC INR 1.2 H (0.9-1.1) Sodium 140 (135-145) mmol/L Potassium 4.1 (3.3-5.1) mmol/L Chloride 106 (96-108) mmol/L Carbon Dioxide 24 (22-29) mmol/L Anion Gap 14 (12-20) BUN 13 (9-16) mg/dL Creatinine 0.82 (0.5-1.4) mg/dL Estim Creat Clear Calc 51.3 Estimated GFR > 60 Random Glucose 202 H (60-115) mg/dL Calcium 9.2 (8.4-10.2) mg/dL Magnesium 1.9 (1.6-2.6) mg/dL Total Bilirubin 0.4 (0.0-1.0) mg/dL AST 24 (5-31) U/L ALT 13 (0-31) U/L Alkaline Phosphatase 59 (39-117) U/L Troponin I High Sens < 3.5 (<3.5-17.0) ng/L Total Protein 6.7 (6.5-8.0) g/dL Albumin 3.6 (3.5-5.0) g/dL Lipase 10 (8-78) U/L COVID-19 (ARNAV) Negative (Negative) COVID-19 Clin Com See Note Blood Type A Positive Antibody Screen NEGATIVE Discharge Plan Discharge Clinical Impression: Eloped from emergency department Patient Disposition: Elopement Prescriptions: No Action clotrimazole 2 % cream 1 appful vaginal BEDTIME PRN (Reason: VAGINAL ITCH) Qty: 21 1RF (DME) blood-glucose meter [OneTouch Ultra2 Meter] Misc See Rx Instructions .Route Qty: 1 0RF Rx Instructions: As directed to test blood sugar once a day (DME) OneTouch Ultra Test Strip See Rx Instructions .Route Qty: 100 3RF Rx Instructions: test blood sugar once daily (DME) lancets [OneTouch Delica Lancets] 33 gauge misc See Rx Instructions .Route Qty: 100 3RF Rx Instructions: test blood sugar once a day (DME) FreeStyle [place] 2 [place] Misc See Rx Instructions .Route Qty: 1 0RF Rx Instructions: As directed clotrimazole-betamethasone 1-0.05 % cream 1 appl topical BID 10 Days Qty: 45 0RF (DME) pen needle, diabetic [BD Ultra-Fine Orig Pen Needle] 29 gauge x 1/2 needle See Rx Instructions .Route Qty: 400 1RF Rx Instructions: Use to inject insulin 4 times per day atorvastatin 80 mg tablet 80 mg PO BEDTIME Qty: 100 1RF omeprazole 40 mg capsule,delayed release(DR/EC) 40 mg PO DAILY 90 Days Qty: 90 1RF Zenpep 10,000-32,000 -42,000 unit capsule,delayed release(DR/EC) 1 cap PO TID 30 Days Qty: 90 3RF Rx Instructions: administer with meals and/or snacks insulin glargine [Lantus Solostar U-100 Insulin] 100 unit/mL (3 mL) insulin pen 10 unit subcut QPM Qty: 15 1RF ondansetron 4 mg tablet,disintegrating 4 mg PO Q8H PRN (Reason: nausea and vomiting) 30 Days Qty: 30 1RF lisinopril 2.5 mg tablet 2.5 mg PO DAILY Qty: 90 1RF sertraline [Zoloft] 100 mg tablet 150 mg PO DAILY 90 Days Qty: 135 2RF lorazepam 0.5 mg tablet 0.5 mg PO .qd PRN (Reason: anxiety attack) Qty: 14 0RF trazodone 50 mg tablet 50 mg PO BEDTIME Qty: 90 3RF (DME) FreeStyle [place] 2 Sensor Kit See Rx Instructions .Route Qty: 6 1RF Rx Instructions: check glucose twice a day as directed azelastine 137 mcg (0.1 %) aerosol,spray 2 spray intranasal BID PRN (Reason: postnasal drip) Qty: 90 0RF Rx Instructions: administer into each nostril hyoscyamine sulfate 0.125 mg tablet 0.125 mg PO BID PRN (Reason: for indigestion) Qty: 60 0RF metformin 750 mg tablet extended release 24 hr 750 mg PO DAILY Qty: 90 0RF metoprolol succinate 50 mg tablet extended release 24 hr 150 mg PO BEDTIME Qty: 270 1RF Eliquis 5 mg tablet 1 tab PO Q12H Zyrtec 10 mg Capsule 10 mg PO DAILY Qty: 30 3RF folic acid 1 mg tablet 1 mg PO DAILY 90 Days Qty: 90 2RF oxycodone 10 mg Tablet 10 mg PO Q6-8H PRN (Reason: Pain) Qty: 90 0RF Rx Instructions: Partial Fill upon patient request. verapamil 100 mg capsule, [address] 100 mg PO BEDTIME cholecalciferol (vitamin D3) 50 mcg (2,000 unit) capsule 50 mcg PO DAILY ferrous fumarate 325 mg (106 mg iron) tablet 325 mg PO Q2D loperamide 2 mg capsule 2 mg PO TID PRN senna 8.6 mg capsule 8.6 mg PO BEDTIME PRN metformin 500 mg tablet extended release 24 hr 500 mg PO BID 90 Days Qty: 180 1RF acetaminophen 500 mg tablet 500 mg PO BID Rx Instructions: Patient takes scheduled BID (in pill box) (DME) [facility] See Rx Instructions .Route Qty: 1 0RF Rx Instructions: As directed isosorbide mononitrate 30 mg tablet extended release 24 hr 30 mg PO DAILY Interventions: ED Discharge Assessment Last Done: 01/12/23 17:51 Discharge Date/Time: 01/12/23 16:45 Print Language: Togolese
--- NOTE | 2023-01-12 14:08 | ECG_ITS ---
Test Reason : EPIGASTRIC PAIN Blood Pressure : / mmHG Vent. Rate : 052 BPM Atrial Rate : 052 BPM P-R Int : 142 ms QRS Dur : 084 ms QT Int : 450 ms P-R-T Axes : 036 -14 011 degrees QTc Int : 418 ms Sinus bradycardia Otherwise normal ECG When compared with ECG of 10-JUL-2022 11:53, Vent. rate has decreased BY 26 BPM T wave inversion no longer evident in Anterior leads QT has shortened Referred By: Hardik Charlton Electronically Signed By:AMARI MONROY
--- NOTE | 2023-01-12 14:28 | MHC.EDTECH ---
EKG completed and signed. Labs and covid swab collectd and sent. type and screen collected
[2023-01-12 14:31] LABS: MANUAL DIFF FLAG NO
[2023-01-12 14:33] LABS: Basophils Percent Auto 0.2 % (0-2); Eosinophils Absolute Auto 0.1 X10*3/uL (0.0-0.4); Eosinophils Percent Auto 1.1 % (0-4); Hematocrit 36.7 % (37.0-47.0); Hemoglobin 11.7 g/dl (12.0-16.0); Imm Gran Abs Auto 0.01 X10*3/uL (0.00-0.03); Imm Gran Pct Auto 0.2 % (0.0-0.4); Lymphocytes Absolute Auto 1.2 X10*3/uL (1.2-4.9); Lymphocytes Percent Auto 22.9 % (20-40); Mean Corpuscular HGB Conc 31.9 g/dl (31.0-35.0); Mean Corpuscular Hemoglobin 30.5 pg (27.0-33.0); Mean Corpuscular Volume 95.6 fL (80.0-98.0); Mean Platelet Volume 10.6 fL (9.4-12.3); Monocytes Absolute Auto 0.5 X10*3/uL (0.1-1.2); Monocytes Percent Auto 8.8 % (2-11); Neutrophils Absolute Auto 3.6 x10*3/uL (2.0-8.3); Neutrophils Percent Auto 66.8 % (45-73); Platelet Count 216 X10*3/uL (160-400); Red Blood Count 3.84 X10*6/uL (4.20-5.50); Red Cell Distribution Width 13.4 % (11.0-16.0); White Blood Count 5.3 X10*3/uL (4.8-10.8)
[2023-01-12 14:39] LABS: INTERNATIONAL NORM RATIO 1.2 (0.9-1.1); Prothrombin Time 13.6 SEC (10.0-13.1)
[2023-01-12 14:46] LABS: COVID-19 Test Negative (Negative); IDNOW Serial# BCCEAD1C
[2023-01-12 14:52] LABS: Alanine Aminotransferase 13 U/L (0-31); Albumin Level 3.6 g/dL (3.5-5.0); Alkaline Phosphatase 59 U/L (39-117); Anion Gap 14 (12-20); Aspartate Amino Transferase 24 U/L (5-31); Bilirubin Total 0.4 mg/dL (0.0-1.0); Blood Urea Nitrogen 13 mg/dL (9-16); Calcium 9.2 mg/dL (8.4-10.2); Carbon Dioxide 24 mmol/L (22-29); Chloride 106 mmol/L (96-108); Creatinine Clr Calc Pharmacy 51.3; Estimated Glomerular Filt Rate > 60; Glucose Random 202 mg/dL (60-115); Lipase 10 U/L (8-78); Magnesium 1.9 mg/dL (1.6-2.6); Potassium 4.1 mmol/L (3.3-5.1); Sodium 140 mmol/L (135-145); Total Protein 6.7 g/dL (6.5-8.0)
[2023-01-12 14:59] LABS: Troponin-I High Sensitivity < 3.5 ng/L (<3.5-17.0)
== END 2023-01-12 16:45 | disposition left against medical advice (07) ==
PROVIDERS: Physician Assistant; Emergency Provider Emergency Medicine; PCP Internal Medicine
DX: R53.83 Other fatigue (principal); R10.12 Left upper quadrant pain; R10.13 Epigastric pain; Z20.822 Contact with and (suspected) exposure to COVID-19; E11.9 Type 2 diabetes mellitus without complications; C34.90 Malignant neoplasm of unspecified part of unspecified bronchus or lung; Z86.711 Personal history of pulmonary embolism; Z79.01 Long term (current) use of anticoagulants; Z79.4 Long term (current) use of insulin
CPT/HCPCS: 36415; 80053; 83690; 83735; 84484; 85025; 85610; 86850; 86900; 86901; 87635; 93005; 99283

== ENCOUNTER → 2023-01-25 13:16 | Outpatient (BNVA) | payer MEDICARE, SELFPAY | PROVIDERS: PCP Internal Medicine; Visit Provider Internal Medicine Endocrinology, Diabetes & Metabolism | DX: E11.65 Type 2 diabetes mellitus with hyperglycemia (principal); E78.5 Hyperlipidemia, unspecified; I25.10 Atherosclerotic heart disease of native coronary artery without angina pectoris; Z95.1 Presence of aortocoronary bypass graft; Z95.5 Presence of coronary angioplasty implant and graft; Z79.4 Long term (current) use of insulin; Z79.899 Other long term (current) drug therapy | CPT/HCPCS: 82947; 99202 ==

== ENCOUNTER 2023-01-28 07:49 | Outpatient (REF) | payer MEDICARE, SELFPAY ==
[2023-01-28 08:29] LABS: Glucose Random 274 mg/dL (60-115)
[2023-01-28 09:45] LABS: Creatinine Urine 191.78 mg/dL; Microalbum/Creatinine Ratio Ur 15.6 ug/mg cr
[2023-01-29 23:34] LABS: C Peptide 2.01 ng/mL (0.80-3.85)
[2023-02-01 21:23] LABS: Glutamic acid decarboxylase Ab <5 IU/mL (<5)
== END 2023-01-28 07:50 | disposition home or self-care (01) ==
LOC: HO.LAB 07:49
PROVIDERS: PCP Internal Medicine; Referring Provider Internal Medicine; Visit Provider Internal Medicine Endocrinology, Diabetes & Metabolism
DX: E11.65 Type 2 diabetes mellitus with hyperglycemia (principal); Z79.4 Long term (current) use of insulin
CPT/HCPCS: 36415; 82043; 82947; 84681; 86341

== ENCOUNTER 2023-01-31 11:43 | Outpatient (REF) | payer MEDICARE, SELFPAY ==
--- NOTE | ~2023-01-31 | XR_ITS ---
EXAMINATION: XR THORACOLUMBAR SPINE CLINICAL INFORMATION: Back pain. History adenocarcinoma right lung. COMPARISON: PET/CT 08/14/2022, radiographs thoracic spine 06/26/2022 TECHNIQUE: Thoracic spine is imaged in 3 views. FINDINGS: Normal thoracic segmentation with 12 rib-bearing thoracic vertebrae of normal height. There is mild accentuated thoracic kyphosis similar to prior exam. There is no interval vertebral compression and no destructive process or erosive change or paraspinal soft tissue swelling. No spondylolisthesis. Again, there are degenerative disc changes mid to lower thoracic spine. There are surgical clips in the mediastinum and sternotomy wires. XR/XR thoracic spine 2V IMPRESSION: No significant changes from prior exam 2021.
--- NOTE | ~2023-01-31 | XR_ITS ---
EXAMINATION: XR LUMBAR SPINE XR PELVIS CLINICAL INFORMATION: Back pain. History adenocarcinoma right lung. COMPARISON: PET/CT 08/14/2022, CT abdomen and pelvis 07/16/2022 and 11/15/2020. Thoracolumbar spine 06/26/2022. TECHNIQUE: The lumbar spine is imaged in 3 views. The pelvis is imaged in an AP view. FINDINGS: There is normal lumbar segmentation with 5 nonrib-bearing lumbar vertebrae of normal height. There is no lumbar vertebral compression or destructive process. There are degenerative disc changes L5-S1 with vacuum disc and facet degeneration lumbosacral junction. There is borderline spondylolisthesis without change. The SI joints and sacrum are unremarkable. The bony pelvis shows no destructive process. There is no fracture. No diastases of the SI joints or pubis. There are surgical clips overlying the right groin and upper thigh. The hips show no focal narrowing or erosive change. There is minor spurring greater trochanters similar to prior imaging. Mild cortical thickening is again noted superior right iliac wing as noted on the PET/CT (not PET avid). XR/XR pelvis 1-2V IMPRESSION: -Degenerative disc and degenerative facet changes L5-S1. -No suspicious bony lesion lumbar spine or pelvis.
--- NOTE | ~2023-01-31 | XR_ITS ---
EXAMINATION: XR LUMBAR SPINE XR PELVIS CLINICAL INFORMATION: Back pain. History adenocarcinoma right lung. COMPARISON: PET/CT 08/14/2022, CT abdomen and pelvis 07/16/2022 and 11/15/2020. Thoracolumbar spine 06/26/2022. TECHNIQUE: The lumbar spine is imaged in 3 views. The pelvis is imaged in an AP view. FINDINGS: There is normal lumbar segmentation with 5 nonrib-bearing lumbar vertebrae of normal height. There is no lumbar vertebral compression or destructive process. There are degenerative disc changes L5-S1 with vacuum disc and facet degeneration lumbosacral junction. There is borderline spondylolisthesis without change. The SI joints and sacrum are unremarkable. The bony pelvis shows no destructive process. There is no fracture. No diastases of the SI joints or pubis. There are surgical clips overlying the right groin and upper thigh. The hips show no focal narrowing or erosive change. There is minor spurring greater trochanters similar to prior imaging. Mild cortical thickening is again noted superior right iliac wing as noted on the PET/CT (not PET avid). XR/XR lumbar spine 2-3V IMPRESSION: -Degenerative disc and degenerative facet changes L5-S1. -No suspicious bony lesion lumbar spine or pelvis.
== END 2023-01-31 11:44 | disposition home or self-care (01) ==
LOC: HO.XRAY 11:43
PROVIDERS: PCP Internal Medicine; Visit Provider Internal Medicine
DX: C79.51 Secondary malignant neoplasm of bone (principal); M54.9 Dorsalgia, unspecified; Z85.118 Personal history of other malignant neoplasm of bronchus and lung
CPT/HCPCS: 72070; 72100; 72170

== ENCOUNTER 2023-02-06 11:34 | Outpatient (AMB) | payer MEDICARE, SELFPAY ==
[2023-02-06 11:51] VITALS: BP 148/66; PULSE 58; O2SAT 95; BMI 29.9
--- NOTE | 2023-02-06 11:51 | A.OFFPC_ITS ---
Vital Signs 02/06/23 11:51 Height 5 ft Weight 153 lb 6 oz BMI 29.9 BP 148/66 H Blood Pressure Location Rt brachial Position Sitting Pulse 58 Pulse Source Pulse Oximeter Pulse Oximetry (%) 95 Oxygen Delivery Method Room Air Intake Visit Reasons: 3 month follow DM, HTN,Lipids Intake Note: Pt is here today for a 3 month f/u DM, HTN, and Lipids. Allergies sulfamethoxazole [From Bactrim] Allergy (Severe, Verified 09/09/23 13:31) Rash adhesive tape [ADHESIVE TAPE] Allergy (Intermediate, Verified 09/09/23 13:31) BLISTERS clonidine Allergy (Verified 09/09/23 13:31) makes pt hulusinate adhesive Adverse Reaction (Severe, Verified 09/09/23 13:31) BLISTERS gabapentin Adverse Reaction (Severe, Verified 09/09/23 13:31) hallucination hydromorphone [From Dilaudid] Adverse Reaction (Severe, Verified 09/09/23 13:31) Hallucinations morphine Adverse Reaction (Severe, Verified 09/09/23 13:31) hallucination glue Adverse Reaction (Severe, Uncoded 09/09/23 13:31) BLISTERS Medication List - Last Reconciled 02/06/23 by Sary Waite MD acetaminophen 500 mg PO BID apixaban (Eliquis) 1 tab PO Q12H atorvastatin 80 mg PO BEDTIME blood sugar diagnostic (OneTouch Ultra Test strips) test blood sugar once daily blood-glucose meter (OneTouch Ultra2 Meter) As directed to test blood sugar once a day calamine-zinc oxide 8-8 % 1 appl topical 6XD PRN cetirizine (Zyrtec) 10 mg PO DAILY cholecalciferol (vitamin D3) 50 mcg PO DAILY clotrimazole 2% 1 appful vaginal BEDTIME PRN clotrimazole-betamethasone 1-0.05 % 1 appl topical BID 10 days Donut pillow As directed ferrous fumarate 325 mg PO Q2D flash glucose scanning reader (FreeStyle [place] 2 [place]) As directed flash glucose sensor (FreeStyle [place] 2 Sensor kit) check glucose twice a day as directed folic acid 1 mg PO DAILY 90 days insulin glargine (Lantus Solostar U-100 Insulin) 10 units subcut QPM insulin lispro (Humalog KwikPen (U-100) Insulin) Give on a sliding scale TID, as follows: Blood sugar: 200-300: 5 units subQ pre meals. Blood sugar: 300-400: 8 units subQ. Blood sugar: >400: 10 units subQ. And call primary doctor. isosorbide mononitrate ER 30 mg PO DAILY lancets (Rabbit TVuch [employer] Inspire Lancets) test blood sugar once a day tztdqs-eftedign-ysilgqq 24,000-76,000 -120,000 unit (Creon) 2 caps PO QID lisinopril 2.5 mg PO DAILY loperamide 2 mg PO TID lorazepam 0.5 mg PO BID PRN metoprolol succinate ER 150 mg (3 x 50 mg) PO BEDTIME mupirocin 2% 1 appl topical BID omeprazole 40 mg PO DAILY 90 days oxycodone 10 mg PO Q6-8H PRN pen needle, diabetic (BD Ultra-Fine Original Pen Needle) Use to inject insulin 4 times per day sennosides (senna) 8.6 mg PO BEDTIME sertraline (Zoloft) 100 mg PO DAILY trazodone 50 mg PO BEDTIME verapamil ER 100 mg PO BEDTIME Tobacco use date assessed: 02/06/23 Fall risk assessment: No Falls in past year Last assessed Fall Risk: 02/06/23 HPI 3 month follow DM, HTN,Lipids HPI Details 78-year-old lady with diabetes mellitus, currently followed by endocrine clinic, has history of Keytruda induced pancreatitis, has hypertension and dyslipidemia, here today for follow-up. She is currently on Lantus 10 units at bedtime and sliding scale of Humalog insulin with meals. She is up-to-date with her diabetes retinopathy screening, and is up-to-date with all vaccines required Laboratory 01/12/23 01/28/23 14:25 08:02 WBC 5.3 Hgb 11.7 L Hct 36.7 L MCV 95.6 MCH 30.5 RDW 13.4 Plt Count 216 Random Glucose 274 H [facility] Medical History (Updated 09/09/23 @ 13:53 by Sary Waite MD) Chronic epigastric pain Diabetes mellitus with hyperglycemia, with long-term current use of insulin Swelling of knee joint, left Hx of sigmoidoscopy Metformin adverse reaction Contusion of rib on right side Adenocarcinoma of left lung (~2021) Aortic stenosis Atypical migraine Transient cerebral ischemia AVM (arteriovenous malformation) of colon Normocytic anemia Nonrheumatic mitral valve regurgitation Nonrheumatic aortic (valve) stenosis Obesity History of blood transfusion Barretts esophagus AAA (abdominal aortic aneurysm) (~2008) Depression Bleeding hemorrhoids Anemia Arthritis On anticoagulant therapy (~10/2020) On beta ashleigh at home Pulmonary nodules Mixed dyslipidemia Vitamin B12 deficiency GIB (gastrointestinal bleeding) COPD (chronic obstructive pulmonary disease) Bilateral pulmonary embolism (~10/2020) Restless leg syndrome Major depression in full remission Irritable bowel syndrome with both constipation and diarrhea GERD without esophagitis CAD (coronary artery disease) Essential hypertension Surgical History History of lung biopsy (~2021) History of esophagogastroduodenoscopy (EGD) (~2020) History of hysterectomy History of colonoscopy (~2018) History of coronary artery bypass graft x 2 (~2017) History of total right knee replacement (TKR) (~2015) History of bilateral breast reduction surgery (~2010) S/P excision of lipoma (~2017) History of heart artery stent (~2007) Family History Father HTN (hypertension) Myocardial infarction Hyperlipidemia Abdominal aneurysm Mother HTN (hypertension) Myocardial infarction Hyperlipidemia Brother Alzheimer's disease Substance abuse Sister Rheumatoid arthritis Brother Rheumatoid arthritis Maternal Aunt Diabetes mellitus Lung cancer Maternal Uncle Diabetes mellitus Son No problems noted. Daughter No problems noted. 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 1. Little interest or pleasure in doing things: more than half the days 2. Feeling down, depressed, or hopeless: more than half the days 3. Trouble falling or staying asleep, or sleeping too much: nearly every day 4. Feeling tired or having little energy: nearly every day 5. Poor appetite or overeating: more than half the days 6. Feeling bad about yourself - or that you are a failure or have let yourself or your family down: not at all 7. Trouble concentrating on things, such as reading the newspaper or watching television: more than half the days 8. Moving or speaking so slowly that other people could have noticed. Or the opposite - being so fidgety or restless that you have been moving around a lot more than usual: several days 9. Thoughts that you would be better off or of hurting yourself in some way: not at all Total score: 15 Depression Screening Interpretation: Positive Depression Screening Follow-up: Existing condition and In treatment 86613 - PHQ-9 Billing: Yes Source: Developed by Drs. Alexey Arreaga, Yokasta Paulino, Pieter Oro and colleagues, with an educational jose j from [employer]. Thrive Questionnaire Declines Thrive assessment: No Date Thrive assessed: 02/06/23 I am a: Patient What is your living situation today?: I have a steady place to live Within the past 12 months, did the food you bought not last and you didn't have the money to get more?: Never true Within the past 12 months, did you worry whether your food would run out before you got money to buy more?: Never true Do you have trouble paying for medicines?: Yes Do you have trouble getting transportation to medical appointments?: No Do you have trouble paying your heating and electricity bill?: No Do you have trouble taking care of your child, family member or friend?: No Do you have trouble with day-to-day activities such as bathing, preparing meals, shopping, managing finances, etc.?: No Are you currently unemployed and looking for a job?: No Are you interested in more education?: No AUDIT C Alcohol Use Questionnaire (AUDIT-C) 1. How often do you have a drink containing alcohol?: Never Total Score: 0 BO-7 AMB Questionnaire BO-7 Date BO - 7 assessed: 02/06/23 Feeling nervous, anxious, or on edge: 2 = More than half the days Not being able to stop or control worryin = More than half the days Worrying too much about different things: 2 = More than half the days Trouble relaxin = More than half the days Being so restless that it is hard to sit still: 3 = Nearly every day Becoming easily annoyed or irritable: 2 = More than half the days Feeling afraid as if something awful might happen: 2 = More than half the days Total BO-7 score (0-4 normal; 5-9 mild; 10-14 moderate; 15-21 severe): 15 Source: Developed by Drs. Alexey Arreaga, Yokasta Paulino, Pieter Oro and colleagues, with an educational jose j from [employer]. BO-7 Assessment Billing BO-7 Assessment Tool: BO-7 Assessment 80084 Review of Systems Const Denies fatigue, Denies fever(s), Denies frequent falls and Denies headache(s) Eyes Denies change in vision ENT Denies dizziness, Reports dry mouth, Denies headache(s) and Denies nasal congestion Card Denies syncope, Denies rapid heart rate, Denies irregular heart rhythm, Denies lightheadedness and Denies dyspnea Resp Denies cough, Denies dyspnea and Denies wheezing GI Denies abdominal pain, Denies melena, Denies hematochezia and Denies vomiting Reports as per HPI Musc Denies arthralgias, Denies joint swelling, Denies numbness and Reports stiffness Skin/Breast Reports as per HPI Neuro Denies burning sensations, Denies dizziness, Denies syncope, Denies frequent falls, Denies headache(s) and Denies numbness Psych Reports no additional complaints Endo Denies fatigue and Denies polyphagia Lele/Lymph Reports easy bruising Aller/Immun Denies wheezing Physical exam (Primary Care) Vital Signs: Last Vital Signs Pulse 58 02/06/23 11:51 BP 148/66 H 02/06/23 11:51 Pulse Ox 95 02/06/23 11:51 Oxygen Delivery Method Room Air 02/06/23 11:51 BMI result Body Mass Index 29.9 Tobacco/Smoking Status: Tobacco use Status Tobacco use date assessed 02/06/23 02/06/23 12:02 Patient Tobacco Use Status Former Tobacco user 02/06/23 12:02 Tobacco use type Cigarette 02/06/23 12:02 e-Cigarette/Vaping Use Never Used 02/06/23 12:02 PHQ-9: PHQ-9 Score PHQ-9: Total score 15 02/06/23 12:25 Depression Screening Interpretation: Positive Depression Screening Follow-up: Existing condition and In treatment Thrive Assessment: Date of Thrive Assessment Date Thrive assessed 02/06/23 02/06/23 12:02 Const Other: Alert oriented x3, no acute cardiorespiratory distress, ambulatory with normal gait Orientation/consciousness: patient oriented x3 HENMT Mouth: Normal oral and palatal mucosa present and moist mucous membranes Eyes General: appearance normal, both eyes and all related structures Neck Other: Supple, no lymphadenopathy, thyroid gland nonpalpable Neck: Yes no meningeal signs Resp Effort & Inspection: normal respiratory effort and able to speak in complete sentences Auscultation: clear to auscultation bilaterally Cardio Other: S1-S2 present regular rate and rhythm GI Palpation (GI): Soft to palpation, nontender, no guarding and no masses Back/Spine/Pelvis Other: no gross bone deformity or joint swelling seen Neuro General: patient oriented x3, gait normal, tone normal, moves all extremities, Normal light touch and pain sensation, no meningeal signs, no focal motor deficits and CN's II-XI intact bilaterally Extrem General: Yes full ROM, Yes no calf tenderness and Yes normal gait Psych Appearance: grossly normal and well kempt Mental Status: mental status grossly normal Speech and movement: Normal speech and movement present Affect: normal affect Attitude: cooperative Thought process: Normal thought process present Results Reviewed Results Reviewed: ENTERED: 01/12/23-[address]: Sary Waite MD ORDERED: CBC Auto Diff Test Result Flag Reference Site WBC 5.3 4.8-10.8 X10*3/uL RBC 3.84 L 4.20-5.50 X10*6/uL HGB 11.7 L 12.0-16.0 g/dl HCT 36.7 L 37.0-47.0 % MCV 95.6 80.0-98.0 fL MCH 30.5 27.0-33.0 pg MCHC 31.9 31.0-35.0 g/dl RDW 13.4 11.0-16.0 % PLT 216 160-400 X10*3/uL MPV 10.6 9.4-12.3 fL Neut Pct Auto 66.8 45-73 % ImGran Pct Auto 0.2 0.0-0.4 % Lymp Pct Auto 22.9 20-40 % Bracken Pct Auto 8.8 2-11 % Eos Pct Auto 1.1 0-4 % Baso Pct Auto 0.2 0-2 % NRBC Pct Auto 0.0 0.0-0.2 /100WBC ANC Neut Abs # 3.6 2.0-8.3 x10*3/uL ImGran Abs Auto 0.01 0.00-0.03 X10*3/uL Lymph Abs Auto 1.2 1.2-4.9 X10*3/uL Bracken Abs Auto 0.5 0.1-1.2 X10*3/uL Eos Abs Auto 0.1 0.0-0.4 X10*3/uL Baso Abs Auto 0.0 0.0-0.2 X10*3/uL NRBC Abs Auto 0.000 0.0-0.012 X10*3/uL Laboratory Tests 10/31/22 01/12/23 01/12/23 10:55 14:25 14:25 Sodium 140 Potassium 4.1 Chloride 106 Carbon Dioxide 24 Anion Gap 14 BUN 13 Creatinine 0.82 Estim Creat Clear Calc 51.3 Estimated GFR > 60 Glucose (Clinic) Random Glucose 202 H Estimat Average Glucose 223 Hemoglobin A1c % 9.4 C-Peptide Calcium 9.2 Magnesium 1.9 Total Bilirubin 0.4 AST 24 ALT 13 Alkaline Phosphatase 59 Troponin I High Sens < 3.5 Total Protein 6.7 Albumin 3.6 Lipase 10 01/25/23 01/28/23 01/28/23 13:35 08:02 08:02 Sodium Potassium Chloride Carbon Dioxide Anion Gap BUN Creatinine Estim Creat Clear Calc Estimated GFR Glucose (Clinic) 148 H Random Glucose 274 H Estimat Average Glucose Hemoglobin A1c % C-Peptide 2.01 Calcium Magnesium Total Bilirubin AST ALT Alkaline Phosphatase Troponin I High Sens Total Protein Albumin Lipase Assessment and Plan Assessment & Plan (1) Diabetes mellitus with hyperglycemia, with long-term current use of insulin: Code(s): E11.65 - Type 2 diabetes mellitus with hyperglycemia; Z79.4 - [facility] (current) use of insulin Plan: Currently on Lantus 10 units at bedtime and sliding scale insulin coverage, followed by endocrine clinic (2) Essential hypertension: Code(s): I10 - Essential (primary) hypertension Plan: Continue with lisinopril 2.5 mg daily and metformin ER 500 mg daily in a.m. (3) Mixed dyslipidemia: Code(s): E78.2 - Mixed hyperlipidemia Plan: Last fasting lipid panel done October 2022 was within normal limits, will continue on atorvastatin 80 mg 1 tablet at bedtime (4) Normocytic anemia: Code(s): D64.9 - Anemia, unspecified Plan: Continue taking ferrous fumarate 25 mg 1 tablet every other day. She has been seen by Hematology , diagnosed with anemia secondary to GI bleeding, AV malformations and hemorrhoids. Hematological workup in 2020 revealed mildly leeann vated LDH of 232, faint IgG gamma monoclonal protein without elevation of IgG are suppression of other immunoglobulin levels. No recurrent kidney or liver dysfunction or hypercalcemia. Normal thyroid functions. Normal iron studies, vitamin B12 and folic acid levels. Coding Level of Care Code Est Pt Level 4 (77304) Diagnoses Diabetes mellitus with hyperglycemia, with long-term current use of insulin E11.65; Z79.4 Essential hypertension I10 Mixed dyslipidemia E78.2 Normocytic anemia D64.9 Additional Codes BO-7 Assessment Billing - BO-7 Assessment Tool: BO-7 Assessment 31857 ([id number])
== END 2023-02-06 12:52 | disposition home or self-care (01) ==
LOC: HO.HMGC 11:34
PROVIDERS: PCP Internal Medicine; Visit Provider Internal Medicine
DX: E11.65 Type 2 diabetes mellitus with hyperglycemia (principal); Z79.4 Long term (current) use of insulin; I10 Essential (primary) hypertension; E78.2 Mixed hyperlipidemia; D64.9 Anemia, unspecified
CPT/HCPCS: 99214

== ENCOUNTER → 2023-03-22 12:22 | Outpatient (BNVA) | payer MEDICARE, SELFPAY | PROVIDERS: PCP Internal Medicine; Visit Provider Registered Nurse Diabetes Educator | DX: E11.65 Type 2 diabetes mellitus with hyperglycemia (principal); Z79.4 Long term (current) use of insulin | CPT/HCPCS: 99211 ==

== ENCOUNTER 2023-06-10 11:58 | Outpatient (AMB) | payer MEDICARE, SELFPAY ==
--- NOTE | 2023-06-10 12:12 | MHC.PC.OV ---
Vital Signs 06/10/23 12:20 Height 5 ft Weight 151 lb BMI 29.5 BP 92/52 L Blood Pressure Location Lt brachial Position Sitting Pulse 54 Pulse Source Pulse Oximeter Pulse Oximetry (%) 96 Oxygen Delivery Method Room Air Intake Visit Reasons: 4m follow up Intake Note: Pt is here today for her 4 months f/u Allergies sulfamethoxazole [From Bactrim] Allergy (Severe, Verified 12/03/23 03:22) Rash adhesive tape [ADHESIVE TAPE] Allergy (Intermediate, Verified 12/03/23 03:22) BLISTERS clonidine Allergy (Verified 12/03/23 03:22) makes pt hulusinate adhesive Adverse Reaction (Severe, Verified 12/03/23 03:22) BLISTERS gabapentin Adverse Reaction (Severe, Verified 12/03/23 03:22) hallucination hydromorphone [From Dilaudid] Adverse Reaction (Severe, Verified 12/03/23 03:22) Hallucinations morphine Adverse Reaction (Severe, Verified 12/03/23 03:22) hallucination glue Adverse Reaction (Severe, Uncoded 12/03/23 03:22) BLISTERS Medication List - Last Reconciled 06/10/23 by Sary Waite MD acetaminophen 500 mg PO BID apixaban (Eliquis) 1 tab PO Q12H atorvastatin 80 mg PO BEDTIME blood sugar diagnostic (OneTouch Ultra Test strips) test blood sugar once daily blood-glucose meter (OneTouch Ultra2 Meter) As directed to test blood sugar once a day calamine-zinc oxide 8-8 % 1 appl topical 6XD PRN cetirizine (Zyrtec) 10 mg PO DAILY cholecalciferol (vitamin D3) 50 mcg PO DAILY clotrimazole 2% 1 appful vaginal BEDTIME PRN clotrimazole-betamethasone 1-0.05 % 1 appl topical BID 10 days Donut pillow As directed ferrous fumarate 325 mg PO Q2D flash glucose scanning reader (FreeStyle [place] 2 [place]) As directed flash glucose sensor (FreeStyle [place] 2 Sensor kit) check glucose twice a day as directed folic acid 1 mg PO DAILY 90 days insulin glargine (Lantus Solostar U-100 Insulin) 10 units subcut QPM insulin lispro (Humalog KwikPen (U-100) Insulin) Give on a sliding scale TID, as follows: Blood sugar: 200-300: 5 units subQ pre meals. Blood sugar: 300-400: 8 units subQ. Blood sugar: >400: 10 units subQ. And call primary doctor. isosorbide mononitrate ER 30 mg PO DAILY lancets (ExoYouuch DelYoka Lancets) test blood sugar once a day lisinopril 2.5 mg PO DAILY loperamide 2 mg PO TID lorazepam 0.5 mg PO BID PRN metoprolol succinate ER 150 mg (3 x 50 mg) PO BEDTIME mupirocin 2% 1 appl topical BID omeprazole 40 mg PO DAILY 90 days oxycodone 10 mg PO Q6-8H PRN pen needle, diabetic (BD Ultra-Fine Original Pen Needle) Use to inject insulin 4 times per day sennosides (senna) 8.6 mg PO BEDTIME sertraline (Zoloft) 100 mg PO DAILY trazodone 50 mg PO BEDTIME verapamil ER 100 mg PO BEDTIME Tobacco use date assessed: 06/10/23 Last assessed Fall Risk: 06/10/23 Dental Screening Dental Screen Date: 06/10/23 HPI 4m follow up HPI Details 78-year-old lady here today for follow-up on her hypertension, hyperlipidemia and diabetes mellitus. She has been compliant with taking her medications cam as directed, tries to follow recommended diet , but has not been getting any regular exercise. Has no new complaints at present time. [facility] Medical History Chronic epigastric pain Diabetes mellitus with hyperglycemia, with long-term current use of insulin Swelling of knee joint, left Hx of sigmoidoscopy Metformin adverse reaction Contusion of rib on right side Adenocarcinoma of left lung (~2021) Aortic stenosis Atypical migraine Transient cerebral ischemia AVM (arteriovenous malformation) of colon Normocytic anemia Nonrheumatic mitral valve regurgitation Nonrheumatic aortic (valve) stenosis Obesity History of blood transfusion Barretts esophagus AAA (abdominal aortic aneurysm) (~2008) Depression Bleeding hemorrhoids Anemia Arthritis On anticoagulant therapy (~10/2020) On beta [place] at home Pulmonary nodules Mixed dyslipidemia Vitamin B12 deficiency GIB (gastrointestinal bleeding) COPD (chronic obstructive pulmonary disease) Bilateral pulmonary embolism (~10/2020) Restless leg syndrome Major depression in full remission Irritable bowel syndrome with both constipation and diarrhea GERD without esophagitis CAD (coronary artery disease) Essential hypertension Surgical History History of lung biopsy (~2021) History of esophagogastroduodenoscopy (EGD) (~2020) History of hysterectomy History of colonoscopy (~2018) History of coronary artery bypass graft x 2 (~2017) History of total right knee replacement (TKR) (~2015) History of bilateral breast reduction surgery (~2010) S/P excision of lipoma (~2017) History of heart artery stent (~2007) Family History Father HTN (hypertension) Myocardial infarction Hyperlipidemia Abdominal aneurysm Mother HTN (hypertension) Myocardial infarction Hyperlipidemia Brother Alzheimer's disease Substance abuse Sister Rheumatoid arthritis Brother Rheumatoid arthritis Maternal Aunt Diabetes mellitus Lung cancer Maternal Uncle Diabetes mellitus Son No problems noted. Daughter No problems noted. 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 Alexey Arreaga, Yokasta Paulino, Pieter Oro and colleagues, with an educational jose j from [employer]. Review of Systems Const Denies fever(s) and Denies headache(s) Eyes Denies change in vision ENT Denies dizziness, Reports dry mouth and Denies headache(s) Card Denies syncope, Denies rapid heart rate, Denies irregular heart rhythm, Denies lightheadedness and Denies dyspnea Resp Denies cough, Denies dyspnea and Denies wheezing GI Reports as per HPI, Denies hematochezia and Denies vomiting Reports no additional complaints Musc Denies arthralgias, Denies joint swelling, Denies numbness and Reports stiffness Neuro Denies dizziness, Denies syncope, Denies headache(s) and Denies numbness Endo Denies polyphagia Lele/Lymph Reports easy bruising Aller/Immun Denies wheezing Physical exam (Primary Care) Vital Signs: Last Vital Signs Pulse 54 06/10/23 12:20 BP 92/52 L 06/10/23 12:20 Pulse Ox 96 06/10/23 12:20 Oxygen Delivery Method Room Air 06/10/23 12:20 BMI result Body Mass Index 29.5 Tobacco/Smoking Status: Tobacco use Status Tobacco use date assessed 06/10/23 06/10/23 12:14 Patient Tobacco Use Status Former Tobacco user 06/10/23 12:14 Tobacco use type Cigarette 06/10/23 12:14 e-Cigarette/Vaping Use Never Used 06/10/23 12:14 Thrive Assessment: Date of Thrive Assessment Date Thrive assessed 02/06/23 06/10/23 12:14 Const Other: Alert oriented x3, no acute cardiorespiratory distress, ambulatory with normal gait Orientation/consciousness: patient oriented x3 HENMT Mouth: Normal oral and palatal mucosa present and moist mucous membranes Eyes General: appearance normal, both eyes and all related structures Neck Other: Supple, no lymphadenopathy, thyroid gland nonpalpable Neck: Yes no meningeal signs Resp Effort & Inspection: normal respiratory effort and able to speak in complete sentences Auscultation: clear to auscultation bilaterally Cardio Other: S1-S2 present regular rate and rhythm GI Palpation (GI): Soft to palpation, nontender, no guarding and no masses Auscultation: normal bowel sounds Back/Spine/Pelvis Other: no gross bone deformity or joint swelling seen Skin General skin exam: no rashes or lesions noted Neuro General: patient oriented x3, gait normal, tone normal, moves all extremities, Normal light touch and pain sensation, no meningeal signs, no focal motor deficits and CN's II-XI intact bilaterally Extrem General: Yes full ROM, Yes no calf tenderness and Yes normal gait Assessment and Plan Assessment & Plan (1) Diabetes mellitus with hyperglycemia, with long-term current use of insulin: Code(s): E11.65 - Type 2 diabetes mellitus with hyperglycemia; Z79.4 - rn long term care (current) use of insulin Plan: Ordered hemoglobin A1c, basic metabolic panel, liver enzymes and lipid levels to be done as well as iron profile and microalbumin screening. In the meantime stressed importance of following a diabetic diet, getting regular exercise. Continue with Lantus 10 units at night with supper, and he below KwikPen to use as directed 3 times a day per sliding scale. continue checking blood sugar at home as directed . Reinforced importance of following recommended diet and staying active. Follows up with Dr. Chery for her yearly diabetes retinopathy screen (2) Essential hypertension: Code(s): I10 - Essential (primary) hypertension Plan: Blood pressure at goal of less than 130/80. Continue with lisinopril and metoprolol at the same dose. Reinforced importance of following a low sodium diet, getting regular exercise, and lowering stress levels. (3) Mixed dyslipidemia: Code(s): E78.2 - Mixed hyperlipidemia Plan: Fasting lipid panel ordered . Continue with atorvastatin 80 mg at bedtime , in addition to adherence to low-cholesterol diet and regular exercise, at least 30 minutes 3 to 4 times a week. Advised patient to make healthy food choices, eat more fruits, vegetables, whole grains, wild caught fish and low-fat dairy. Limit amount of meat and fried or fatty food products, as well as processed foods and fast foods. (4) GERD without esophagitis: Code(s): K21.9 - Gastro-esophageal reflux disease without esophagitis Plan: Continue omeprazole Orders: Orders Alanine Aminotransferase 06/11/23 E11.65 - Type 2 diabetes mellitus with hyperglycemia, Z79.4 - group home (current) use of insulin, T38.3X5A - Adverse effect of insulin and oral hypoglycemic [antidiabetic] drugs, initial encounter, I26.99 - Other pulmonary embolism without acute cor pulmonale, I10 - Essential (primary) hypertension, E78.2 - Mixed hyperlipidemia, D64.9 - Anemia, unspecified Aspartate Amino Transferase 06/11/23 E11.65 - Type 2 diabetes mellitus with hyperglycemia, Z79.4 - rn long term care (current) use of insulin, T38.3X5A - Adverse effect of insulin and oral hypoglycemic [antidiabetic] drugs, initial encounter, I26.99 - Other pulmonary embolism without acute cor pulmonale, I10 - Essential (primary) hypertension, E78.2 - Mixed hyperlipidemia, D64.9 - Anemia, unspecified Basic Metabolic Panel Fasting 06/11/23 E11.65 - Type 2 diabetes mellitus with hyperglycemia, Z79.4 - group home (current) use of insulin, T38.3X5A - Adverse effect of insulin and oral hypoglycemic [antidiabetic] drugs, initial encounter, I26.99 - Other pulmonary embolism without acute cor pulmonale, I10 - Essential (primary) hypertension, E78.2 - Mixed hyperlipidemia, D64.9 - Anemia, unspecified Complete Blood Count Auto Diff 06/11/23 E11.65 - Type 2 diabetes mellitus with hyperglycemia, Z79.4 - rn long term care (current) use of insulin, T38.3X5A - Adverse effect of insulin and oral hypoglycemic [antidiabetic] drugs, initial encounter, I26.99 - Other pulmonary embolism without acute cor pulmonale, I10 - Essential (primary) hypertension, E78.2 - Mixed hyperlipidemia, D64.9 - Anemia, unspecified Lipid Panel 06/11/23 E11.65 - Type 2 diabetes mellitus with hyperglycemia, Z79.4 - rn long term care (current) use of insulin, T38.3X5A - Adverse effect of insulin and oral hypoglycemic [antidiabetic] drugs, initial encounter, I26.99 - Other pulmonary embolism without acute cor pulmonale, I10 - Essential (primary) hypertension, E78.2 - Mixed hyperlipidemia, D64.9 - Anemia, unspecified IRON PROFILE 06/11/23 E11.65 - Type 2 diabetes mellitus with hyperglycemia, Z79.4 - group home (current) use of insulin, T38.3X5A - Adverse effect of insulin and oral hypoglycemic [antidiabetic] drugs, initial encounter, I26.99 - Other pulmonary embolism without acute cor pulmonale, I10 - Essential (primary) hypertension, E78.2 - Mixed hyperlipidemia, D64.9 - Anemia, unspecified Microalbumin, Random (w Creat) 06/11/23 E11.65 - Type 2 diabetes mellitus with hyperglycemia, Z79.4 - group home (current) use of insulin, T38.3X5A - Adverse effect of insulin and oral hypoglycemic [antidiabetic] drugs, initial encounter, I26.99 - Other pulmonary embolism without acute cor pulmonale, I10 - Essential (primary) hypertension, E78.2 - Mixed hyperlipidemia, D64.9 - Anemia, unspecified Vitamin D 25-OH Total 06/11/23 E11.65 - Type 2 diabetes mellitus with hyperglycemia, Z79.4 - group home (current) use of insulin, T38.3X5A - Adverse effect of insulin and oral hypoglycemic [antidiabetic] drugs, initial encounter, I26.99 - Other pulmonary embolism without acute cor pulmonale, I10 - Essential (primary) hypertension, E78.2 - Mixed hyperlipidemia, D64.9 - Anemia, unspecified Hemoglobin A1c 06/11/23 E11.65 - Type 2 diabetes mellitus with hyperglycemia, Z79.4 - group home (current) use of insulin, T38.3X5A - Adverse effect of insulin and oral hypoglycemic [antidiabetic] drugs, initial encounter, I26.99 - Other pulmonary embolism without acute cor pulmonale, I10 - Essential (primary) hypertension, E78.2 - Mixed hyperlipidemia, D64.9 - Anemia, unspecified Referrals Endocrinology Referral E11.65 - Type 2 diabetes mellitus with hyperglycemia, Z79.4 - group home (current) use of insulin, T38.3X5A - Adverse effect of insulin and oral hypoglycemic [antidiabetic] drugs, initial encounter, E78.2 - Mixed hyperlipidemia Coding Level of Care Code Est Pt Level 4 (83859) Diagnoses Diabetes mellitus with hyperglycemia, with long-term current use of insulin E11.65; Z79.4 Essential hypertension I10 Mixed dyslipidemia E78.2 GERD without esophagitis K21.9
[2023-06-10 12:20] VITALS: BP 92/52; PULSE 54; O2SAT 96; BMI 29.5
== END 2023-06-10 13:52 | disposition home or self-care (01) ==
PROVIDERS: Visit Provider Internal Medicine
DX: E11.65 Type 2 diabetes mellitus with hyperglycemia (principal); Z79.4 Long term (current) use of insulin; I10 Essential (primary) hypertension; E78.2 Mixed hyperlipidemia; K21.9 Gastro-esophageal reflux disease without esophagitis
CPT/HCPCS: 99214

== ENCOUNTER 2023-06-11 09:19 | Outpatient (REF) | payer MEDICARE, SELFPAY ==
[2023-06-11 11:37] LABS: MANUAL DIFF FLAG NO
[2023-06-11 11:55] LABS: Basophils Percent Auto 0.4 % (0-2); Eosinophils Absolute Auto 0.1 X10*3/uL (0.0-0.4); Eosinophils Percent Auto 1.7 % (0-4); Hematocrit 37.7 % (37.0-47.0); Hemoglobin 12.2 g/dl (12.0-16.0); Imm Gran Abs Auto 0.01 X10*3/uL (0.00-0.03); Imm Gran Pct Auto 0.2 % (0.0-0.4); Lymphocytes Percent Auto 19.5 % (20-40); Mean Corpuscular HGB Conc 32.4 g/dl (31.0-35.0); Mean Corpuscular Hemoglobin 31.8 pg (27.0-33.0); Mean Corpuscular Volume 98.2 fL (80.0-98.0); Monocytes Absolute Auto 0.5 X10*3/uL (0.1-1.2); Monocytes Percent Auto 9.6 % (2-11); Neutrophils Absolute Auto 3.7 x10*3/uL (2.0-8.3); Neutrophils Percent Auto 68.6 % (45-73); Platelet Count 251 X10*3/uL (160-400); Red Blood Count 3.84 X10*6/uL (4.20-5.50); Red Cell Distribution Width 12.7 % (11.0-16.0); White Blood Count 5.3 X10*3/uL (4.8-10.8)
[2023-06-11 12:08] LABS: Estimated Average Glucose 143 mg/dL; Hemoglobin A1c % 6.6 % (<6.0)
[2023-06-11 12:28] LABS: Alanine Aminotransferase 29 U/L (0-31); Anion Gap 11 (12-20); Aspartate Amino Transferase 29 U/L (5-31); Blood Urea Nitrogen 16 mg/dL (9-16); Calcium 9.7 mg/dL (8.4-10.2); Carbon Dioxide 30 mmol/L (22-29); Chloride 107 mmol/L (96-108); Cholesterol 132 mg/dL (<200); Estimated Glomerular Filt Rate > 60; Glucose Fasting 108 mg/dL (60-99); HDL Cholesterol 46 mg/dL (>40); Iron 105 mcg/dL (30-160); LDL Cholesterol Calculated 66 mg/dL (<100); Percent Iron Saturation 38 % (15-50); Sodium 144 mmol/L (135-145); Total Iron Binding Capacity 274 mcg/dL (228-428); Triglycerides 102 mg/dL (<150); Unsaturated Iron Binding 169 ug/dL
[2023-06-11 12:45] LABS: Vitamin D 25-OH Total 43.5 ng/mL (>30)
[2023-06-11 13:04] LABS: Creatinine Urine 100.76 mg/dL; Microalbum/Creatinine Ratio Ur 10.9 ug/mg cr (<30)
== END 2023-06-11 09:20 | disposition home or self-care (01) ==
LOC: HO.HMGCLDS 09:19
PROVIDERS: PCP Internal Medicine; Visit Provider Internal Medicine
DX: E11.65 Type 2 diabetes mellitus with hyperglycemia (principal); D64.9 Anemia, unspecified; E78.2 Mixed hyperlipidemia; I10 Essential (primary) hypertension; I26.99 Other pulmonary embolism without acute cor pulmonale; T38.3X5A Adverse effect of insulin and oral hypoglycemic [antidiabetic] drugs, initial encounter; Z79.4 Long term (current) use of insulin
CPT/HCPCS: 36415; 80048; 80061; 82043; 82306; 83036; 83540; 84450; 84460; 85025

== ENCOUNTER 2023-08-16 12:17 | Outpatient (REF) | payer MEDICARE, SELFPAY ==
--- NOTE | ~2023-08-16 | XR_ITS ---
EXAMINATION: XR CHEST CLINICAL INFORMATION: Cough, recent Covid. COMPARISON: PET/CT 08/14/2022. Chest radiograph 07/02/2022. TECHNIQUE: 2 views of the chest were obtained. FINDINGS: Stable appearance of the cardiomediastinal silhouette with redemonstration of midline sternal wires and mediastinal surgical clips. No new focal airspace densities. No pleural effusion or pneumothorax. Stable mild biapical subpleural thickening. No acute osseous findings. Atherosclerotic disease of the thoracic and abdominal aorta with aneurysm of the abdominal aorta measuring 3.6 cm on the lateral view on anteroposterior diameter, similar compared to the sagittal view from prior PET. XR/XR chest 2V IMPRESSION: 1. No acute cardiopulmonary findings. 2. In this patient with a history of lung cancer, appropriate staging should be obtained with a CT chest as clinically deemed appropriate as radiographic examinations have decreased sensitivity for detection of malignancy/metastatic disease. 3. Atherosclerotic disease with an abdominal aortic aneurysm measuring 3.6 cm, similar compared to PET/10/2021. Based on published guidelines in J Am Sofia Radiol 2013; 10(10):789-794 and J Vasc Surg. 2018; 67:2-77, the recommendation for an abdominal aortic aneurysm with diameter 3.5-3.9 cm is follow up every 2 years.
== END 2023-08-16 12:18 | disposition home or self-care (01) ==
LOC: HO.XRAY 12:17
PROVIDERS: PCP Internal Medicine; Visit Provider Internal Medicine
DX: C34.92 Malignant neoplasm of unspecified part of left bronchus or lung (principal); R05.9 Cough, unspecified
CPT/HCPCS: 71046

== ENCOUNTER 2023-09-06 10:30 | Outpatient (REF) | payer MEDICARE, SELFPAY ==
[2023-09-06 13:35] LABS: MANUAL DIFF FLAG NO
[2023-09-06 13:41] LABS: Basophils Percent Auto 0.4 % (0-2); Eosinophils Absolute Auto 0.1 X10*3/uL (0.0-0.4); Hematocrit 35.9 % (37.0-47.0); Hemoglobin 11.7 g/dl (12.0-16.0); Imm Gran Abs Auto 0.01 X10*3/uL (0.00-0.03); Imm Gran Pct Auto 0.2 % (0.0-0.4); Lymphocytes Absolute Auto 1.7 X10*3/uL (1.2-4.9); Lymphocytes Percent Auto 30.2 % (20-40); Mean Corpuscular HGB Conc 32.6 g/dl (31.0-35.0); Mean Corpuscular Volume 98.1 fL (80.0-98.0); Mean Platelet Volume 10.6 fL (9.4-12.3); Monocytes Absolute Auto 0.6 X10*3/uL (0.1-1.2); Monocytes Percent Auto 10.7 % (2-11); Neutrophils Absolute Auto 3.2 x10*3/uL (2.0-8.3); Neutrophils Percent Auto 56.5 % (45-73); Platelet Count 261 X10*3/uL (160-400); Red Blood Count 3.66 X10*6/uL (4.20-5.50); Red Cell Distribution Width 12.4 % (11.0-16.0); White Blood Count 5.6 X10*3/uL (4.8-10.8)
[2023-09-06 13:45] LABS: Estimated Average Glucose 157 mg/dL; Hemoglobin A1c % 7.1 % (<6.0)
[2023-09-06 15:19] LABS: Alanine Aminotransferase 27 U/L (0-31); Anion Gap 14 (12-20); Aspartate Amino Transferase 32 U/L (5-31); Blood Urea Nitrogen 21 mg/dL (9-16); Calcium 9.6 mg/dL (8.4-10.2); Carbon Dioxide 25 mmol/L (22-29); Chloride 107 mmol/L (96-108); Cholesterol 145 mg/dL (<200); Estimated Glomerular Filt Rate 58; Glucose Fasting 155 mg/dL (60-99); HDL Cholesterol 49 mg/dL (>40); LDL Cholesterol Calculated 73 mg/dL (<100); Potassium 4.6 mmol/L (3.3-5.1); Sodium 141 mmol/L (135-145); Triglycerides 116 mg/dL (<150)
[2023-09-06 15:33] LABS: Vitamin D 25-OH Total 43.8 ng/mL (>30)
== END 2023-09-06 10:31 | disposition home or self-care (01) ==
LOC: HO.HMGCLDS 10:30
PROVIDERS: PCP Internal Medicine; Visit Provider Internal Medicine
DX: E11.65 Type 2 diabetes mellitus with hyperglycemia (principal); I25.10 Atherosclerotic heart disease of native coronary artery without angina pectoris; I10 Essential (primary) hypertension; E78.2 Mixed hyperlipidemia; I35.0 Nonrheumatic aortic (valve) stenosis; G25.81 Restless legs syndrome; G43.109 Migraine with aura, not intractable, without status migrainosus; Z78.0 Asymptomatic menopausal state; Z79.4 Long term (current) use of insulin
CPT/HCPCS: 36415; 80048; 80061; 82306; 83036; 84450; 84460; 85025

== ENCOUNTER 2023-09-09 12:55 | Outpatient (AMB) | payer MEDICARE, SELFPAY ==
[2023-09-09 13:04] VITALS: BP 110/60; PULSE 63; O2SAT 95; BMI 30.1
--- NOTE | 2023-09-09 13:04 | MHC.PC.OV ---
Vital Signs 09/09/23 13:04 Height 5 ft Weight 154 lb BMI 30.1 BP 110/60 Blood Pressure Location Lt brachial Position Sitting Pulse 63 Pulse Source Pulse Oximeter Pulse Oximetry (%) 95 Oxygen Delivery Method Room Air Intake Visit Reasons: 3 month follow up Intake Note: Pt is here today for 3 months follow up visit. Allergies sulfamethoxazole [From Bactrim] Allergy (Severe, Verified 12/03/23 03:22) Rash adhesive tape [ADHESIVE TAPE] Allergy (Intermediate, Verified 12/03/23 03:22) BLISTERS clonidine Allergy (Verified 12/03/23 03:22) makes pt hulusinate adhesive Adverse Reaction (Severe, Verified 12/03/23 03:22) BLISTERS gabapentin Adverse Reaction (Severe, Verified 12/03/23 03:22) hallucination hydromorphone [From Dilaudid] Adverse Reaction (Severe, Verified 12/03/23 03:22) Hallucinations morphine Adverse Reaction (Severe, Verified 12/03/23 03:22) hallucination glue Adverse Reaction (Severe, Uncoded 12/03/23 03:22) BLISTERS Medication List - Last Reconciled 09/09/23 by Sary Waite MD acetaminophen 500 mg PO BID apixaban (Eliquis) 1 tab PO Q12H atorvastatin 80 mg PO BEDTIME blood sugar diagnostic (OneTouch Ultra Test strips) test blood sugar once daily blood-glucose meter (StarMaker InteractiveTouch Ultra2 Meter) As directed to test blood sugar once a day cetirizine (Zyrtec) 10 mg PO DAILY cholecalciferol (vitamin D3) 50 mcg PO DAILY clotrimazole 2% 1 appful vaginal BEDTIME PRN clotrimazole-betamethasone 1-0.05 % 1 appl topical BID 10 days Donut pillow As directed ferrous fumarate 325 mg PO Q2D flash glucose scanning reader (FreeStyle [place] 2 [place]) As directed flash glucose sensor (FreeStyle [place] 2 Sensor kit) check glucose twice a day as directed folic acid 1 mg PO DAILY 90 days insulin glargine (Lantus Solostar U-100 Insulin) 10 units subcut QPM insulin lispro (Humalog KwikPen (U-100) Insulin) Give on a sliding scale TID, as follows: Blood sugar: 200-300: 5 units subQ pre meals. Blood sugar: 300-400: 8 units subQ. Blood sugar: >400: 10 units subQ. And call primary doctor. isosorbide mononitrate ER 30 mg PO DAILY lancets ([place] [employer] Lancets) test blood sugar once a day lisinopril 2.5 mg PO DAILY loperamide 2 mg PO TID lorazepam 0.5 mg PO BID PRN metoprolol succinate ER 150 mg (3 x 50 mg) PO BEDTIME mupirocin 2% 1 appl topical BID omeprazole 40 mg PO DAILY 90 days oxycodone 10 mg PO Q6-8H PRN pen needle, diabetic (BD Ultra-Fine Original Pen Needle) Use to inject insulin 4 times per day sennosides (senna) 8.6 mg PO BEDTIME sertraline (Zoloft) 100 mg PO DAILY trazodone 50 mg PO BEDTIME verapamil ER 100 mg PO BEDTIME Tobacco use date assessed: 09/09/23 HPI 3 month follow up HPI Details 78-year-old woman with metastatic lung adenocarcinoma diagnosed 02/15/2022 status post chemotherapy but stopped after 3rd cycle as she developed autoimmune pancreatitis and mild colitis and has refused further treatment for her cancer, currently being followed by oncology; has a history of bilateral spontaneous pulmonary embolism now on long-term treatment with Eliquis 5 mg 1 tablet twice a day,; received 1 dose of denosumab for right hip pain secondary to bony metastasis but refused further treatment because of side effects of body aches; has ischemic heart disease with preserved left ventricular systolic function status post 2 vessel does CABG stat June 2018, multivalvular disease including aortic stenosis , hypertension, hyperlipidemia and her abdomen aortic aneurysm without rupture, currently followed by cardiology, here today for follow-up on her hypertension, diabetes mellitus and hyperlipidemia. Her blood pressure has been stable and controlled on lisinopril 2.5 mg daily, metoprolol succinate ER 150 mg at bedtime and verapamil 100 mg at bedtime. She takes Lantus 10 units at night and Humalog 3 times a day before meals with sliding scale coverage, with her latest hemoglobin A1c at 7.1%.She is currently up-to-date with her diabetes eye exam, sees Dr. Chery at [facility]. She takes atorvastatin 80 mg daily with recent fasting lipids showing an LDL at 73 and triglycerides at 116 with HDL cholesterol 49. Denies any muscle weakness or pain with current dose of atorvastatin. However she still complains of chronic pain for epigastric area usually worse after food intake, has a take oxycodone for pain control. She also has been taking omeprazole for her heartburn and complains of constipation, usually has a bowel movement every 3 days and has to take senna. Denies any blood in the stool, has black stools as she is taking iron supplements. Noted to be having normocytic normochromic anemia on recent labs done. She has also been having recurrent postnasal drainage and nasal congestion usually at night and when she wakes up in the morning. Denies any accompanying headache, no sore throat or fever . [facility] Medical History Chronic epigastric pain Diabetes mellitus with hyperglycemia, with long-term current use of insulin Swelling of knee joint, left Hx of sigmoidoscopy Metformin adverse reaction Contusion of rib on right side Adenocarcinoma of left lung (~2021) Aortic stenosis Atypical migraine Transient cerebral ischemia AVM (arteriovenous malformation) of colon Normocytic anemia Nonrheumatic mitral valve regurgitation Nonrheumatic aortic (valve) stenosis Obesity History of blood transfusion Barretts esophagus AAA (abdominal aortic aneurysm) (~2008) Depression Bleeding hemorrhoids Anemia Arthritis On anticoagulant therapy (~10/2020) On beta [place] at home Pulmonary nodules Mixed dyslipidemia Vitamin B12 deficiency GIB (gastrointestinal bleeding) COPD (chronic obstructive pulmonary disease) Bilateral pulmonary embolism (~10/2020) Restless leg syndrome Major depression in full remission Irritable bowel syndrome with both constipation and diarrhea GERD without esophagitis CAD (coronary artery disease) Essential hypertension Surgical History History of lung biopsy (~2021) History of esophagogastroduodenoscopy (EGD) (~2020) History of hysterectomy History of colonoscopy (~2018) History of coronary artery bypass graft x 2 (~2017) History of total right knee replacement (TKR) (~2015) History of bilateral breast reduction surgery (~2010) S/P excision of lipoma (~2017) History of heart artery stent (~2007) Family History Father HTN (hypertension) Myocardial infarction Hyperlipidemia Abdominal aneurysm Mother HTN (hypertension) Myocardial infarction Hyperlipidemia Brother Alzheimer's disease Substance abuse Sister Rheumatoid arthritis Brother Rheumatoid arthritis Maternal Aunt Diabetes mellitus Lung cancer Maternal Uncle Diabetes mellitus Son No problems noted. Daughter No problems noted. 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 How often do you have a drink containing alcohol?: Monthly or less 2. How many drinks containing alcohol do you have on a typical day when you are drinking?: 1 or 2 3. How often do you have six or more drinks on one occasion?: Never Total Score: 1 BO-7 AMB Questionnaire BO-7 Date BO - 7 assessed: 02/06/23 Feeling nervous, anxious, or on edge: 2 = More than half the days Not being able to stop or control worryin = More than half the days Worrying too much about different things: 2 = More than half the days Trouble relaxin = More than half the days Being so restless that it is hard to sit still: 3 = Nearly every day Becoming easily annoyed or irritable: 3 = Nearly every day Feeling afraid as if something awful might happen: 2 = More than half the days Total BO-7 score (0-4 normal; 5-9 mild; 10-14 moderate; 15-21 severe): 16 Source: Developed by Drs. Alexey Arreaga, Yokasta Paulino, Pieter Oro and colleagues, with an educational jose j from [employer]. Review of Systems Const Denies fever(s), Denies frequent falls and Denies headache(s) Eyes Denies change in vision ENT Denies dysphagia, Denies dizziness, Reports dry mouth, Denies headache(s), Denies epistaxis, Denies sinus pain, Denies sinus pressure and Denies sore throat Card Denies syncope, Denies rapid heart rate, Denies irregular heart rhythm, Denies lightheadedness and Denies dyspnea Resp Denies cough, Denies dyspnea and Denies wheezing GI Reports as per HPI, Denies hematochezia, Denies dysphagia and Denies vomiting Musc Denies arthralgias, Denies joint swelling, Denies numbness and Reports stiffness Neuro Denies dizziness, Denies syncope, Denies frequent falls, Denies headache(s) and Denies numbness Endo Denies polyphagia Lele/Lymph Reports easy bruising Aller/Immun Denies wheezing Physical exam (Primary Care) Vital Signs: Last Vital Signs Pulse 63 09/09/23 13:04 BP 110/60 09/09/23 13:04 Pulse Ox 95 09/09/23 13:04 Oxygen Delivery Method Room Air 09/09/23 13:04 BMI result Body Mass Index 30.1 Tobacco/Smoking Status: Tobacco use Status Tobacco use date assessed 09/09/23 09/09/23 13:09 Patient Tobacco Use Status Former Tobacco user 09/09/23 13:04 Tobacco use type Cigarette 09/09/23 13:04 e-Cigarette/Vaping Use Never Used 09/09/23 13:04 Thrive Assessment: Date of Thrive Assessment Date Thrive assessed 02/06/23 09/09/23 13:04 Const Other: Alert oriented x3, no acute cardiorespiratory distress, ambulatory with normal gait Orientation/consciousness: patient oriented x3 HENMT Mouth: Normal oral and palatal mucosa present and moist mucous membranes Eyes General: appearance normal, both eyes and all related structures Neck Other: Supple, no lymphadenopathy, thyroid gland nonpalpable Neck: Yes no meningeal signs Resp Effort & Inspection: normal respiratory effort and able to speak in complete sentences Auscultation: clear to auscultation bilaterally Cardio Other: S1-S2 present regular rate and rhythm GI Palpation (GI): Soft to palpation, nontender, no guarding and no masses Auscultation: normal bowel sounds Back/Spine/Pelvis Other: no gross bone deformity or joint swelling seen Skin General skin exam: no rashes or lesions noted Neuro General: patient oriented x3, gait normal, tone normal, moves all extremities, Normal light touch and pain sensation, no meningeal signs, no focal motor deficits and CN's II-XI intact bilaterally Extrem General: Yes full ROM, Yes no calf tenderness and Yes normal gait Psych Appearance: grossly normal and well kempt Mental Status: mental status grossly normal Speech and movement: Normal speech and movement present Affect: normal affect Attitude: cooperative Thought process: Normal thought process present Results Reviewed Results Reviewed: NTERED: 09/06/23-[address]: ORDERED: CBC Auto Diff Test Result Flag Reference Site WBC 5.6 4.8-10.8 X10*3/uL RBC 3.66 L 4.20-5.50 X10*6/uL HGB 11.7 L 12.0-16.0 g/dl HCT 35.9 L 37.0-47.0 % MCV 98.1 H 80.0-98.0 fL MCH 32.0 27.0-33.0 pg MCHC 32.6 31.0-35.0 g/dl RDW 12.4 11.0-16.0 % PLT 261 160-400 X10*3/uL MPV 10.6 9.4-12.3 fL Neut Pct Auto 56.5 45-73 % ImGran Pct Auto 0.2 0.0-0.4 % Lymp Pct Auto 30.2 20-40 % [place] Pct Auto 10.7 2-11 % Eos Pct Auto 2.0 0-4 % Baso Pct Auto 0.4 0-2 % NRBC Pct Auto 0.0 0.0-0.2 /100WBC ANC Neut Abs # 3.2 2.0-8.3 x10*3/uL ImGran Abs Auto 0.01 0.00-0.03 X10*3/uL Lymph Abs Auto 1.7 1.2-4.9 X10*3/uL [place] Abs Auto 0.6 0.1-1.2 X10*3/uL Eos Abs Auto 0.1 0.0-0.4 X10*3/uL Baso Abs Auto 0.0 0.0-0.2 X10*3/uL NRBC Abs Auto 0.000 0.0-0.012 X10*3/uL Name: Brittany Onofre Age/Sex: 78/F : 1945 Unit#: [id number] Attend Dr: Sary Waite MD Re09/06/23 Status: DEP REF Location: [facility] Disch: SPEC : [id number] KIKI: 09/06/23 STATUS: COMP REQ : [id number] RECD: 09/06/[address]: Sary Waite MD COMP: 09/06/23 ENTERED: 09/06/[address] [facility] [address]: ORDERED: Met Prof Fast, AST, ALT, Lipid Panel, Vitamin D 25-OH Test Result Flag Reference Site Sodium 141 135-145 mmol/L Potassium 4.6 3.3-5.1 mmol/L CL 107 96-108 mmol/L CO2 25 22-29 mmol/L Gap 14 12-20 BUN 21 H 9-16 mg/dL Creat 0.94 0.5-1.4 mg/dL EGFR 58 NOTE: For -[place] individuals, multiply the result by 1.210. Chronic Kidney Disease: Estimated GFR < 60 mL/min/1.73m2 Severe Kidney Disease: Estimated GFR < 15 mL/min/1.73m2 FBS 155 H 60-99 mg/dL A fasting glucose of 126 mg/dl or greater on more than one occasion is considered diagnostic of diabetes. CA 9.6 8.4-10.2 mg/dL AST (GOT) 32 H 5-31 U/L ALT (GPT) 27 0-31 U/L Triglyceride 116 <150 mg/dL Desirable Triglyceride: less than 150 mg/dL Borderline High Triglyceride 150-199 mg/dL High Triglyceride: 200-499 mg/dL Very High Triglyceride: greater than or equal to 5OO mg/dL Cholesterol 145 <200 mg/dL Desirable Cholesterol: less than 200 mg/dL Borderline High Cholesterol: 200-239 mg/dL High Cholesterol: greater than 239 mg/dL LDL Calculated 73 <100 mg/dL Desirable LDL: less than 100 mg/dL Near Optimal/Above Optimal LDL: 110-129 mg/dL Borderline High LDL: 130-159 mg/dL High LDL: 160-189 mg/dL Very High LDL: greater than or equal to 190 mg/dL HDL 49 >40 mg/dL Desirable HDL: greater than 40 mg/dL Note: This HDL assay may give artificially low results in patients with liver disease. Vit D 25-OH Tot 43.8 >30 ng/mL Health Based Reference Values* < 20 ng/mL Deficient 20-30 ng/mL Insufficient > 30 ng/mL Sufficient Laboratory Tests 09/06/23 10:34 Estimat Average Glucose 157 Hemoglobin A1c % 7.1 H Assessment and Plan Assessment & Plan (1) Chronic epigastric pain: Code(s): R10.13 - Epigastric pain; G89.29 - Other chronic pain Plan: Will try on hyoscyamine sulfate 0.125 mg per tablet to take b.i.d. as needed for not cramping, continue omeprazole, referred to GI for further evaluation (2) Post-nasal drainage: Code(s): R09.82 - Postnasal drip Plan: Prescription sent for Azelastine nasal spray, instill 2 sprays per nostril twice a day as needed (3) Diabetes mellitus with hyperglycemia, with long-term current use of insulin: Code(s): E11.65 - Type 2 diabetes mellitus with hyperglycemia; Z79.4 - manager long term care (current) use of insulin Plan: Patient states that she has not really been using her insulin lispro as directed, keeps forgetting and sometimes would not take it as she does not eat a big meal. Will continue on Lantus at the same dose 10 units at bedtime and will start a trial of metformin ER 500 mg per tablet to take 1 tablet in the morning with breakfast. Ordered compressive metabolic panel, hemoglobin A1c to be done in 3 months (4) Mixed dyslipidemia: Code(s): E78.2 - Mixed hyperlipidemia Plan: Reviewed recent fasting lipid profile with patient. Continue with atorvastatin 80 mg daily , in addition to adherence to low-cholesterol diet and regular exercise, at least 30 minutes 3 to 4 times a week. Advised patient to make healthy food choices, eat more fruits, vegetables, whole grains, wild caught fish and low-fat dairy. Limit amount of meat and fried or fatty food products, as well as processed foods and fast foods. Follow-up scheduled with repeat fasting lipid panel in 3 months. (5) Essential hypertension: Code(s): I10 - Essential (primary) hypertension Plan: Blood pressure at goal of less than 130/80. Continue with current medication. Reinforced importance of following a low sodium diet, getting regular exercise, and lowering stress levels. Orders: Orders Lipid Panel 12/13/23 E11.65 - Type 2 diabetes mellitus with hyperglycemia, Z79.4 - manager long term care (current) use of insulin, E78.2 - Mixed hyperlipidemia, R10.13 - Epigastric pain, G89.29 - Other chronic pain, I10 - Essential (primary) hypertension Vitamin D 25-OH Total 12/13/23 E11.65 - Type 2 diabetes mellitus with hyperglycemia, Z79.4 - manager long term care (current) use of insulin, E78.2 - Mixed hyperlipidemia, R10.13 - Epigastric pain, G89.29 - Other chronic pain, I10 - Essential (primary) hypertension Hemoglobin A1c 12/13/23 E11.65 - Type 2 diabetes mellitus with hyperglycemia, Z79.4 - [facility] (current) use of insulin, E78.2 - Mixed hyperlipidemia, R10.13 - Epigastric pain, G89.29 - Other chronic pain, I10 - Essential (primary) hypertension Comprehensive [place]. Panel Fast 12/13/23 E11.65 - Type 2 diabetes mellitus with hyperglycemia, Z79.4 - manager long term care (current) use of insulin, E78.2 - Mixed hyperlipidemia, R10.13 - Epigastric pain, G89.29 - Other chronic pain, I10 - Essential (primary) hypertension Referrals Gastroenterology Referral R10.13 - Epigastric pain, G89.29 - Other chronic pain Medications: New metformin ER 500 mg PO QAM 30 tabs 3RF hyoscyamine sulfate 0.125 mg PO BID PRN 60 tabs 0RF dyspepsia azelastine administer into each nostril 2 sprays intranasal BID PRN 30 mL 0RF postnasal drip R09.82 - Postnasal drip Discontinued insulin lispro Discontinued Reason: Doctor's Order Give on a sliding scale TID, as follows: Blood sugar: 200-300: 5 units subQ pre meals. Blood sugar: 300-400: 8 units subQ. Blood sugar: >400: 10 units subQ. And call primary doctor. Coding Level of Care Code Est Pt Level 4 (75659) Diagnoses Chronic epigastric pain R10.13; G89.29 Post-nasal drainage R09.82 Diabetes mellitus with hyperglycemia, with long-term current use of insulin E11.65; Z79.4 Mixed dyslipidemia E78.2 Essential hypertension I10
== END 2023-09-09 13:53 | disposition home or self-care (01) ==
PROVIDERS: PCP Internal Medicine; Visit Provider Internal Medicine
DX: R10.13 Epigastric pain (principal); E11.65 Type 2 diabetes mellitus with hyperglycemia; Z79.4 Long term (current) use of insulin; G89.29 Other chronic pain; R09.82 Postnasal drip; E78.2 Mixed hyperlipidemia; I10 Essential (primary) hypertension
CPT/HCPCS: 99214

== ENCOUNTER 2023-09-24 09:19 | Outpatient (AMB) | payer MEDICARE, SELFPAY ==
--- NOTE | 2023-09-24 09:35 | MHC.OFFVIS ---
Vital Signs 09/24/23 09:37 Height 5 ft Weight 155 lb BMI 30.3 BP 95/50 L Blood Pressure Location Lt brachial Position Sitting Pulse 55 Intake Visit Reasons: epigastric pain Intake Note: Patient follow up for epigastric pain Patient cc: abdominal pain with bloating, acid reflex with burning sensation, and denies any other GI issues. 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 Accompanied by: Family/Other Allergies sulfamethoxazole [From Bactrim] Allergy (Severe, Verified 01/03/24 08:49) Rash adhesive tape [ADHESIVE TAPE] Allergy (Intermediate, Verified 01/03/24 08:49) BLISTERS clonidine Allergy (Verified 01/03/24 08:49) makes pt hulusinate adhesive Adverse Reaction (Severe, Verified 01/03/24 08:49) BLISTERS gabapentin Adverse Reaction (Severe, Verified 01/03/24 08:49) hallucination hydromorphone [From Dilaudid] Adverse Reaction (Severe, Verified 01/03/24 08:49) Hallucinations morphine Adverse Reaction (Severe, Verified 01/03/24 08:49) hallucination glue Adverse Reaction (Severe, Uncoded 01/03/24 08:49) BLISTERS Medication List - Last Reconciled 09/24/23 by Isabel Galvin MD acetaminophen 500 mg PO BID apixaban (Eliquis) 1 tab PO Q12H atorvastatin 80 mg PO BEDTIME azelastine 2 sprays intranasal BID PRN blood sugar diagnostic (OneTouch Ultra Test strips) test blood sugar once daily blood-glucose meter (OneTouch Ultra2 Meter) As directed to test blood sugar once a day cetirizine (Zyrtec) 10 mg PO DAILY cholecalciferol (vitamin D3) 50 mcg PO DAILY clotrimazole 2% 1 appful vaginal BEDTIME PRN clotrimazole-betamethasone 1-0.05 % 1 appl topical BID 10 days Donut pillow As directed ferrous fumarate 325 mg PO Q2D flash glucose scanning reader (FreeStyle [place] 2 [place]) As directed flash glucose sensor (FreeStyle [place] 2 Sensor kit) check glucose twice a day as directed folic acid 1 mg PO DAILY 90 days hyoscyamine sulfate 0.125 mg PO BID PRN insulin glargine (Lantus Solostar U-100 Insulin) 10 units subcut QPM isosorbide mononitrate ER 30 mg PO DAILY lancets (EcoTimberuch [employer] Lancets) test blood sugar once a day lisinopril 2.5 mg PO DAILY loperamide 2 mg PO TID lorazepam 0.5 mg PO BID PRN metformin ER 500 mg PO QAM metoprolol succinate ER 150 mg (3 x 50 mg) PO BEDTIME mupirocin 2% 1 appl topical BID omeprazole 40 mg PO DAILY 90 days oxycodone 10 mg PO Q6-8H PRN pen needle, diabetic (BD Ultra-Fine Original Pen Needle) Use to inject insulin 4 times per day sennosides (senna) 8.6 mg PO BEDTIME sertraline (Zoloft) 100 mg PO DAILY trazodone 50 mg PO BEDTIME verapamil ER 100 mg PO BEDTIME HPI HPI epigastric pain: Details: FU GI clinic visit for this 78 YF with history of metastatic non-small cell lung cancer with mets to the bone with recent therapy with pembrolizumab, SBRT ([facility]), aortic stenosis, mitral regurgitation, AAA, pulmonary embolism October 2020 on Eliquis, She has oligometastatic disease. However she has been deemed not a surgical candidate for her lung cancer because of underlying aortic stenosis and coronary artery disease. Past evaluation included EGD, colonoscopy and capsule endoscopy with findings of lee's esophagus solitary esophageal varix, AVMs, internal hemorrhoids, diverticular disease, possible rectal varices and venous malformations Push enteroscopy 08/2021: Single varix in the esophagus without high-risk stigmata. Normal small bowel. EGD/ileocolonoscopy 03/2021: Bluish blebs in upper esophagus, a single varix and lower esophagus. Hiatal hernia. Normal duodenum and jejunum to the extent seen. Colon with excellent prep. Diverticulosis of sigmoid colon with bluish blebs. Rectum: Dilated vessels ? varices. LABS IN [facility] : Reviewed IMAGING STUDIES: [] ENDOSCOPIC STUDIES: 07/17/[address] Cooley showed: 1. Minimally abnormal colon mucosa. (biopsy) 2. Prominent rectal vessels. 2. External hemorrhoids. TODAY'S VISIT: Patient cc: abdominal pain with bloating, acid reflex with burning sensation, and denies any other GI issues. Not feeling good My stomach gives me so much trouble Complains of abdominal pain since she was given immunotherapy Diabetes not controlled with Insulin and going back on metformin Notes epigastric pain - there all the time if she does not take oxycodone Pain is worse after eating, and radiates to the back Uses icepacks in the front and hot pack to the back. My whole gut gets a hot feeling - does not feel like heartburn pain Takes Omeprazole every morning. Concerned if her pancreas is working or damaged. Has been constipated and feels her muscles are not strong enough to push the BM out. Has a BM every 3 days - has been taking Senna and Miralax Takes 2 Senna if no BM for a day and takes Miralax the following day Has used diggital manipulation to disimpact herself. Pt complains of heartburn and denies Feels she is unable to swallow of she has post nasal drip on lying down She was prescribed Hyoscyamine 0.125 mg twice daily for abdominal pain Stool is black since she is on oral iron - takingb iron twice a day for years Patient denies known family history of colon polyps, colon cancer or other GI malignancies. PAST GI HISTORY BY REVIEW OF MEDICAL RECORDS: seen in 07/2021 Reason for consult: Recurrent anemia, GI Bleeding This is a 76-year-old female with multiple medical problems who presents to the emergency department today with weakness. She reports progressive weakness over the past few weeks. For 2 days she reports episodes of dizziness sweating and shortness of breath upon standing. These episodes last approximately 15 seconds and improved when she sits down. She has also noticed that her stools have become more dark and tarry in nature, she denies any bright red blood per rectum. She has had intermittent rectal bleeding since October. She has also had burning abdominal pain. She denies any nausea or vomiting. She does not drink alcohol and she denies the use of NSAIDs. Workup in the ED revealed anemia with H/H of 6.1/20.7. Troponin was 45.2. Her stool occult blood was positive. She was given a dose of IV protonix and two units of blood were ordered for transfusion. Patient complained of SOB on 10/16/20 and was hospitalized [place] [facility] [place]. Diagnosed with PE and discharged on Eliquis and a baby aspirin. Patient has not noted progressive weakness with shortness of breath on exertion and intermittent chest heaviness for the past week - worse since 08/30/21. She has noted a sensation of flushing in the chest and abdomen at rest and leg weakness on walking. She admits to feeling weak and dizzy. Patient notes occasional heartburn related to spicy foods denies dysphagia. Her BMs have been dark, foul smelling and tarry. Pt takes oral iron daily. Intentional wt loss of 12 lbs. Pt has a long hx of IBS with diarrhea alternating with constipation and takes dicyclomine with partial relief. She tried taking a fibre supplement once daily without improvement in symptoms. Patient denies loud snoring or sleep apnea Denies problems with anesthesia in the past Pt is on chronic anticoagulation - last dose of Eliquis was on 09/01/21.. Patient denies known family history of colon polyps, colon cancer or other GI malignancies. Pt was hospitalized at [facility] with anemia in Nov, 2020 and [place] [facility] [place] and transfused in 04/2021 This is her 3rd admission. Past evaluation included EGD, colonoscopy and capsule endoscopy with findings of lee's esophagus solitary esophageal varix, AVMs, internal hemorrhoids, diverticular disease, possible rectal varices and venous malformations [facility] Medical History (Updated 01/05/24 @ 12:18 by Sary Waite MD) Depression Chronic epigastric pain Diabetes mellitus with hyperglycemia, with long-term current use of insulin Swelling of knee joint, left Hx of sigmoidoscopy Metformin adverse reaction Contusion of rib on right side Adenocarcinoma of left lung (~2021) Aortic stenosis Atypical migraine Transient cerebral ischemia AVM (arteriovenous malformation) of colon Normocytic anemia Nonrheumatic mitral valve regurgitation Nonrheumatic aortic (valve) stenosis Obesity History of blood transfusion Barretts esophagus AAA (abdominal aortic aneurysm) (~2008) Bleeding hemorrhoids Anemia Arthritis On anticoagulant therapy (~10/2020) On beta ashleigh at home Pulmonary nodules Mixed dyslipidemia Vitamin B12 deficiency GIB (gastrointestinal bleeding) COPD (chronic obstructive pulmonary disease) Bilateral pulmonary embolism (~10/2020) Restless leg syndrome Irritable bowel syndrome with both constipation and diarrhea GERD without esophagitis CAD (coronary artery disease) Essential hypertension Surgical History History of lung biopsy (~2021) History of esophagogastroduodenoscopy (EGD) (~2020) History of hysterectomy History of colonoscopy (~2018) History of coronary artery bypass graft x 2 (~2017) History of total right knee replacement (TKR) (~2015) History of bilateral breast reduction surgery (~2010) S/P excision of lipoma (~2017) History of heart artery stent (~2007) Family History Father HTN (hypertension) Myocardial infarction Hyperlipidemia Abdominal aneurysm Mother HTN (hypertension) Myocardial infarction Hyperlipidemia Brother Alzheimer's disease Substance abuse Sister Rheumatoid arthritis Brother Rheumatoid arthritis Maternal Aunt Diabetes mellitus Lung cancer Maternal Uncle Diabetes mellitus Son No problems noted. Daughter No problems noted. 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 Cognitive needs: No Hearing needs: No Vision needs: Yes Physical Exam Vital Signs: Last Vital Signs Pulse 55 09/24/23 09:37 BP 95/50 L 09/24/23 09:37 BMI result Body Mass Index 30.3 Const General: no acute distress Nutritional Appearance: obese Orientation/consciousness: patient oriented x3 HEENT Head: Yes normal to inspection Ears: hearing grossly normal bilaterally Eyes Sclerae: sclerae normal Pupils: Equal, round and reactive pupils present Neck Neck: Yes normal visual inspection Chest Chest palpation & inspection: normal inspection of the chest Resp Effort & Inspection: normal respiratory effort Auscultation: clear to auscultation bilaterally Cardio Palpation: normal PMI Rate: regular rate Rhythm: regular rhythm Heart sounds: S1 normal heart sound present, S2 normal heart sound present and no murmurs GI Palpation (GI): Soft to palpation, nontender and No hepatosplenomegaly present Auscultation: normal bowel sounds Rectal Exam - Female: deferred Skin General skin exam: no rashes or lesions noted Neuro General: patient oriented x3, gait normal and moves all extremities Cranial nerves: Yes Equal, round and reactive pupils present Psych Appearance: grossly normal Mental Status: mental status grossly normal Assessment & Plan Assessment & Plan (1) Chronic epigastric pain: Code(s): R10.13 - Epigastric pain; G89.29 - Other chronic pain Category: Medical (2) Pancreatitis: Code(s): K85.90 - Acute pancreatitis without necrosis or infection, unspecified Category: Medical Plan GI clinic visit for this 77 YF with history of metastatic non-small cell lung cancer with mets to the bone with recent therapy with pembrolizumab, SBRT ([facility]), DM, Htn, CAD, aortic stenosis, mitral regurgitation, AAA, pulmonary embolism October 2020 on Eliquis for follow-up of chronic anemia, She has oligometastatic disease. However she has been deemed not a surgical candidate for her lung cancer because of underlying aortic stenosis and coronary artery disease. She has a long history of IBS with diarrhea and constipation. Past evaluation included EGD, colonoscopy x 2 and capsule endoscopy with findings of lee's esophagus solitary esophageal varix, AVMs, internal hemorrhoids, diverticular disease, possible rectal varices and venous malformations. Pt likely has intermittent GI blood loss from small bowel AVMs. Long discussion with the patient, her daughter and regarding potential bleeding source and further johnson with repeat EGD and Capsule Endoscopy during her past hospitalization.? Pt prefers to manage her anemia with monitoring CBC on a monthly basis and prn blood transfusions and not undergo additional testing.? She is willing to reconsider if frequency of blood transfusions increases (Transfused 3 times in 2020). Pt advised to schedule an Abd CT scan for evaluation of abdominal pain 10/[address] SCAN SHOWED: No acute intra-abdominal or pelvic pathology. Interval severe pancreatic atrophy. Diverticulosis without diverticulitis. 3.4 cm infrarenal abdominal aortic aneurysm. Nonobstructing left renal calculi. Gastric wall thickening not excluded. Correlate clinically. On 11/18/23 @ 17:32 Isabel Galvin Wrote To Isabel Galvin Pt called and CT scan results reviewed with the patient. She was on immunotherapy with Pembrolizumab and had autoimmune pancreatitis and treatment was discontinued. She has decided not to undergo additional chemotherapy. Patient was started on Zenpep on 11/06/23 and reports improvement in abdominal pain Pt was advised to continue taking Zenpep and scheduled a follow-up appointment in 3-4 months. Orders: Orders CT abdomen pelvis w IV con 09/24/23 R10.13 - Epigastric pain, G89.29 - Other chronic pain, K85.90 - Acute pancreatitis without necrosis or infection, unspecified Pancreatic Elastase-1 09/24/23 R10.13 - Epigastric pain, G89.29 - Other chronic pain
[2023-09-24 09:37] VITALS: BP 95/50; PULSE 55; BMI 30.3
== END 2023-09-24 10:30 | disposition home or self-care (01) ==
PROVIDERS: PCP Internal Medicine; Visit Provider Internal Medicine Gastroenterology
DX: R10.13 Epigastric pain (principal); G89.29 Other chronic pain; K85.90 Acute pancreatitis without necrosis or infection, unspecified
CPT/HCPCS: 99499

== ENCOUNTER → 2023-09-24 09:19 | Outpatient (BNVA) | payer MEDICARE, SELFPAY | PROVIDERS: PCP Internal Medicine; Visit Provider Internal Medicine Gastroenterology ==

== ENCOUNTER 2023-10-21 14:35 | Outpatient (REF) | payer MEDICARE, SELFPAY ==
[2023-10-28 23:50] LABS: Pancreatic Elastase-1 <15 mcg/g
== END 2023-10-21 14:36 | disposition home or self-care (01) ==
LOC: HO.HMGCLNP 14:35
PROVIDERS: PCP Internal Medicine; Visit Provider Internal Medicine Gastroenterology
DX: R10.13 Epigastric pain (principal); G89.29 Other chronic pain
CPT/HCPCS: 82656

== ENCOUNTER 2023-11-11 07:43 | Outpatient (REF) | payer MEDICARE, SELFPAY ==
[2023-11-11 12:00] LABS: Blood Urea Nitrogen 19 mg/dL (9-16); Estimated Glomerular Filt Rate > 60; Lipase 8 U/L (8-78)
== END 2023-11-11 07:44 | disposition home or self-care (01) ==
LOC: HO.HMGCLDS 07:43
PROVIDERS: PCP Internal Medicine; Visit Provider Internal Medicine Gastroenterology
DX: R10.13 Epigastric pain (principal); G89.29 Other chronic pain; K85.90 Acute pancreatitis without necrosis or infection, unspecified
CPT/HCPCS: 36415; 82565; 83690; 84520

== ENCOUNTER 2023-11-11 13:22 | Outpatient (REF) | payer MEDICARE, SELFPAY ==
--- NOTE | ~2023-11-11 | CT_ITS ---
EXAMINATION: CT ABDOMEN AND PELVIS WITH CONTRAST CLINICAL INFORMATION: Epigastric pain COMPARISON: None available. TECHNIQUE: Multidetector volumetric images were obtained from the superior aspect of the liver through the pubic symphysis following administration 85 mL of Omnipaque 350 intravenous contrast. Sagittal and coronal reformatted images were obtained on the technologist's workstation. Oral contrast: No This CT examination was performed using dose optimization techniques as appropriate, variously including the following: *Automated exposure control *Adjustment of mA and/or kV according to patient size (this includes techniques or standardized protocols for targeted exams where dose is matched to indication/reason for exam; i.e. 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 Fecal retention. Prominent liver. Right groin clips. Median sternotomy wires. LUNG BASES: Hyperinflation. Mild atelectasis. Prominent heart. No pericardial effusion. LIVER, GALLBLADDER, AND BILIARY TREE: The liver is prominent. No focal hepatic lesion or biliary ductal dilatation is present. The gallbladder is decompressed without evidence of radiopaque gallstones, gallbladder wall thickening, or obvious pericholecystic inflammatory changes. PANCREAS: On previous studies, pancreatitis identified with normal sized/enlarged gland. On today's study only small amount of residual tissue is identified in the region of the pancreatic head. Pancreatic body and tail are not seen. No pancreatic calcifications, stranding or fluid collections. SPLEEN: Unremarkable. ADRENAL GLANDS: Unremarkable. KIDNEYS AND URETERS: The kidneys are normal in size, shape, and attenuation. No hydronephrosis or hydroureter. Punctate nonobstructing left upper, mid and lower pole calculi. No perinephric stranding. BLADDER: Decompressed. GASTROINTESTINAL TRACT: Moderately distended stomach with mildly thickened anderson. No evidence of bowel obstruction. Unremarkable terminal ileum. Unremarkable appendix. Diverticulosis without diverticulitis. Mild fecal retention and mild fecal impaction. ABDOMINAL WALL: Small fat filled umbilical hernia. LYMPH NODES: Normal. VASCULAR: 3.4 x 3.0 cm infrarenal fusiform abdominal aortic aneurysm. Atherosclerotic calcifications abdominal aorta extending into the branch vessels. Somewhat small caliber inferior vena cava. Unremarkable iliac veins. Patent portal system. PELVIC VISCERA: Uterus has been surgically removed. No pelvic pathology recognized. OSSEOUS/SOFT TISSUE STRUCTURES: Right buttock calcification. No change predominantly sclerotic right iliac wing. CT/CT abdomen pelvis w IV con IMPRESSION: No acute intra-abdominal or pelvic pathology. Interval severe pancreatic atrophy. Diverticulosis without diverticulitis. 3.4 cm infrarenal abdominal aortic aneurysm. Nonobstructing left renal calculi. Gastric wall thickening not excluded. Correlate clinically.
[2023-11-11] MEDS: iohexoL 350 MG/ML 75 ML INFUS..BTL 85 ML IV (16:27)
[2023-11-11] MEDS: Barium Sulfate Oral (Mocha) 450 ML ORAL.SUSP 900 ML PO (16:42)
== END 2023-11-11 13:23 | disposition home or self-care (01) ==
LOC: HO.CT 13:22
PROVIDERS: PCP Internal Medicine; Visit Provider Internal Medicine Gastroenterology
DX: R10.13 Epigastric pain (principal); G89.29 Other chronic pain; K85.90 Acute pancreatitis without necrosis or infection, unspecified
CPT/HCPCS: 74177; Q9967

== ENCOUNTER 2024-01-01 07:17 | Outpatient (REF) | payer MEDICARE, SELFPAY ==
[2024-01-01 11:51] LABS: Estimated Average Glucose 148 mg/dL; Hemoglobin A1c % 6.8 % (<6.0)
[2024-01-01 12:35] LABS: Alanine Aminotransferase 22 U/L (0-31); Albumin Level 4.1 g/dL (3.5-5.0); Alkaline Phosphatase 63 U/L (39-117); Anion Gap 12 (12-20); Aspartate Amino Transferase 21 U/L (5-31); Bilirubin Total 0.3 mg/dL (0.0-1.0); Blood Urea Nitrogen 16 mg/dL (9-16); Calcium 9.6 mg/dL (8.4-10.2); Carbon Dioxide 27 mmol/L (22-29); Chloride 106 mmol/L (96-108); Cholesterol 164 mg/dL (<200); Estimated Glomerular Filt Rate > 60; Glucose Fasting 128 mg/dL (60-99); HDL Cholesterol 51 mg/dL (>40); LDL Cholesterol Calculated 88 mg/dL (<100); Potassium 4.1 mmol/L (3.3-5.1); Sodium 141 mmol/L (135-145); Total Protein 7.2 g/dL (6.5-8.0); Triglycerides 127 mg/dL (<150)
[2024-01-01 12:41] LABS: Vitamin D 25-OH Total 40.8 ng/mL (>30)
== END 2024-01-01 07:18 | disposition home or self-care (01) ==
LOC: HO.HMGCLDS 07:17
PROVIDERS: PCP Internal Medicine; Visit Provider Internal Medicine
DX: E11.65 Type 2 diabetes mellitus with hyperglycemia (principal); E78.2 Mixed hyperlipidemia; R10.13 Epigastric pain; G89.29 Other chronic pain; I10 Essential (primary) hypertension; Z79.4 Long term (current) use of insulin
CPT/HCPCS: 36415; 80053; 80061; 82306; 83036

== ENCOUNTER 2024-01-03 08:29 | Outpatient (AMB) | payer MEDICARE, SELFPAY ==
[2024-01-03 08:35] VITALS: BP 100/58; PULSE 56; O2SAT 94; BMI 30.7
--- NOTE | 2024-01-03 08:35 | A.OFFPC_ITS ---
Vital Signs 01/03/24 08:35 Height 5 ft Weight 157 lb BMI 30.7 BP 100/58 L Blood Pressure Location Lt brachial Position Sitting Pulse 56 Pulse Source Pulse Oximeter Pulse Oximetry (%) 94 Oxygen Delivery Method Room Air Intake Visit Reasons: 3 months f/u labs/OK Per Dr. Waite Intake Note: Pt is here today for her 3 mo. f/u labs Allergies sulfamethoxazole [From Bactrim] Allergy (Severe, Verified 01/03/24 08:49) Rash adhesive tape [ADHESIVE TAPE] Allergy (Intermediate, Verified 01/03/24 08:49) BLISTERS clonidine Allergy (Verified 01/03/24 08:49) makes pt hulusinate adhesive Adverse Reaction (Severe, Verified 01/03/24 08:49) BLISTERS gabapentin Adverse Reaction (Severe, Verified 01/03/24 08:49) hallucination hydromorphone [From Dilaudid] Adverse Reaction (Severe, Verified 01/03/24 08:49) Hallucinations morphine Adverse Reaction (Severe, Verified 01/03/24 08:49) hallucination glue Adverse Reaction (Severe, Uncoded 01/03/24 08:49) BLISTERS Medication List - Last Reconciled 01/03/24 by Sary Waite MD acetaminophen 500 mg PO BID apixaban (Eliquis) 1 tab PO Q12H atorvastatin 80 mg PO BEDTIME azelastine 2 sprays intranasal BID PRN blood sugar diagnostic (StratasanTouch Ultra Test strips) test blood sugar once daily blood-glucose meter (OneTouch Ultra2 Meter) As directed to test blood sugar once a day cetirizine (Zyrtec) 10 mg PO DAILY cholecalciferol (vitamin D3) 50 mcg PO DAILY clotrimazole 2% 1 appful vaginal BEDTIME PRN clotrimazole-betamethasone 1-0.05 % 1 appl topical BID 10 days Donut pillow As directed ferrous fumarate 325 mg PO Q2D flash glucose scanning reader (FreeStyle [place] 2 [place]) As directed flash glucose sensor (FreeStyle [place] 2 Sensor kit) check glucose twice a day as directed folic acid 1 mg PO DAILY 90 days hyoscyamine sulfate 0.125 mg PO BID PRN insulin glargine (Lantus Solostar U-100 Insulin) 10 units (0.1 mL) subcut QPM isosorbide mononitrate ER 30 mg PO DAILY lancets (OneTouch Delica Lancets) test blood sugar once a day uclcrj-[id number] 10,000-32,000 -42,000 unit (Zenpep) 1 cap PO TID 30 days lisinopril 2.5 mg PO DAILY loperamide 2 mg PO TID lorazepam 0.5 mg PO .qd PRN metformin ER 500 mg PO QAM metoprolol succinate ER 150 mg (3 x 50 mg) PO BEDTIME mupirocin 2% 1 appl topical BID omeprazole 40 mg PO DAILY 90 days ondansetron 4 mg PO Q8H PRN 30 days oxycodone 10 mg PO Q6-8H PRN pen needle, diabetic (BD Ultra-Fine Original Pen Needle) Use to inject insulin 4 times per day sennosides (senna) 8.6 mg PO BEDTIME sertraline (Zoloft) 100 mg PO DAILY trazodone 50 mg PO BEDTIME verapamil ER 100 mg PO BEDTIME Tobacco use date assessed: 01/03/24 Fall risk assessment: No Falls in past year Last assessed Fall Risk: 01/03/24 Dental Screening Dental Screen Date: 01/03/24 Did you have a dental visit in the last 12 months?: No Was dental information given to patient?: Patient declined HPI 3 months f/u labs/OK Per Dr. Waite HPI Details 78-year-old lady with diabetes mellitus, hypertension hyperlipidemia depression, here today for follow-up. She has been compliant with taking medications, recent fasting labs done which showed improvement in her diabetes control but still not at goal. Tolerating metformin well. Has been having more mood swings and depressed mood lately, currently on surgery 100 mg per tablet taken daily and trazodone 50 mg at bedtime. Would like to see if she can go higher on her dose, but does not want referral for counseling. [facility] Medical History (Updated 01/05/24 @ 12:18 by Sary Waite MD) Depression Chronic epigastric pain Diabetes mellitus with hyperglycemia, with long-term current use of insulin Swelling of knee joint, left Hx of sigmoidoscopy Metformin adverse reaction Contusion of rib on right side Adenocarcinoma of left lung (~2021) Aortic stenosis Atypical migraine Transient cerebral ischemia AVM (arteriovenous malformation) of colon Normocytic anemia Nonrheumatic mitral valve regurgitation Nonrheumatic aortic (valve) stenosis Obesity History of blood transfusion Barretts esophagus AAA (abdominal aortic aneurysm) (~2008) Bleeding hemorrhoids Anemia Arthritis On anticoagulant therapy (~10/2020) On beta [place] at home Pulmonary nodules Mixed dyslipidemia Vitamin B12 deficiency GIB (gastrointestinal bleeding) COPD (chronic obstructive pulmonary disease) Bilateral pulmonary embolism (~10/2020) Restless leg syndrome Irritable bowel syndrome with both constipation and diarrhea GERD without esophagitis CAD (coronary artery disease) Essential hypertension Surgical History History of lung biopsy (~2021) History of esophagogastroduodenoscopy (EGD) (~2020) History of hysterectomy History of colonoscopy (~2018) History of coronary artery bypass graft x 2 (~2017) History of total right knee replacement (TKR) (~2015) History of bilateral breast reduction surgery (~2010) S/P excision of lipoma (~2017) History of heart artery stent (~2007) Family History Father HTN (hypertension) Myocardial infarction Hyperlipidemia Abdominal aneurysm Mother HTN (hypertension) Myocardial infarction Hyperlipidemia Brother Alzheimer's disease Substance abuse Sister Rheumatoid arthritis Brother Rheumatoid arthritis Maternal Aunt Diabetes mellitus Lung cancer Maternal Uncle Diabetes mellitus Son No problems noted. Daughter No problems noted. 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 1. Little interest or pleasure in doing things: several days 2. Feeling down, depressed, or hopeless: several days 3. Trouble falling or staying asleep, or sleeping too much: more than half the days 4. Feeling tired or having little energy: several days 5. Poor appetite or overeating: not at all 6. Feeling bad about yourself - or that you are a failure or have let yourself or your family down: not at all 7. Trouble concentrating on things, such as reading the newspaper or watching television: several days 8. Moving or speaking so slowly that other people could have noticed. Or the opposite - being so fidgety or restless that you have been moving around a lot more than usual: several days 9. Thoughts that you would be better off or of hurting yourself in some way: not at all Total score: 7 Depression Screening Interpretation: Positive Depression Screening Follow-up: Existing condition, In treatment and Change in Medication Depression Screening Done: Yes 44837 - PHQ-9 Billing: Yes Source: Developed by Drs. Alexey Arreaga, Yokasta Paulino, Pieter Oro and colleagues, with an educational jose j from [employer]. Thrive Questionnaire Date Thrive assessed: 01/03/24 I am a: Patient What is your living situation today?: I have a steady place to live Within the past 12 months, did the food you bought not last and you didn't have the money to get more?: Never true Within the past 12 months, did you worry whether your food would run out before you got money to buy more?: Never true Do you have trouble paying for medicines?: No Do you have trouble getting transportation to medical appointments?: No Do you have trouble paying your heating and electricity bill?: No Do you have trouble taking care of your child, family member or friend?: No Do you have trouble with day-to-day activities such as bathing, preparing meals, shopping, managing finances, etc.?: No Are you currently unemployed and looking for a job?: No Are you interested in more education?: No THRIVE Score: 0 AUDIT C Alcohol Use Questionnaire (AUDIT-C) 1. How often do you have a drink containing alcohol?: 2-4 times a month 2. How many drinks containing alcohol do you have on a typical day when you are drinking?: 1 or 2 3. How often do you have six or more drinks on one occasion?: Never Total Score: 2 BO-7 AMB Questionnaire BO-7 Date BO - 7 assessed: 01/03/24 Feeling nervous, anxious, or on edge: 1 = Several days Not being able to stop or control worryin = Several days Worrying too much about different things: 1 = Several days Trouble relaxin = Not at all Being so restless that it is hard to sit still: 0 = Not at all Becoming easily annoyed or irritable: 0 = Not at all Feeling afraid as if something awful might happen: 0 = Not at all Total BO-7 score (0-4 normal; 5-9 mild; 10-14 moderate; 15-21 severe): 3 Source: Developed by Drs. Alexey Arreaga, Yokasta Paulino, Pieter Oro and colleagues, with an educational jose j from [employer]. BO-7 Assessment Billing BO-7 Assessment Tool: BO-7 Assessment 34218 Review of Systems Const Denies fever(s), Denies frequent falls and Denies headache(s) Eyes Denies change in vision ENT Denies dysphagia, Denies dizziness and Denies headache(s) Card Denies syncope, Denies rapid heart rate, Denies irregular heart rhythm, Denies lightheadedness and Denies dyspnea Resp Denies cough, Denies dyspnea and Denies wheezing GI Denies abdominal pain, Denies melena, Denies hematochezia, Denies change in bowel habits, Denies dysphagia and Denies vomiting Musc Denies arthralgias, Denies joint swelling, Denies numbness and Reports stiffness Neuro Denies dizziness, Denies syncope, Denies frequent falls, Denies headache(s) and Denies numbness Endo Denies polyphagia Lele/Lymph Reports easy bruising Aller/Immun Denies wheezing Physical exam (Primary Care) Vital Signs: Last Vital Signs Pulse 56 01/03/24 08:35 BP 100/58 L 01/03/24 08:35 Pulse Ox 94 01/03/24 08:35 Oxygen Delivery Method Room Air 01/03/24 08:35 BMI result Body Mass Index 30.7 Tobacco/Smoking Status: Tobacco use Status Tobacco use date assessed 01/03/24 01/03/24 08:42 Patient Tobacco Use Status Former Tobacco user 01/03/24 08:36 Tobacco use type Cigarette 01/03/24 08:36 e-Cigarette/Vaping Use Never Used 01/03/24 08:36 Depression Screening Interpretation: Positive Depression Screening Follow-up: Existing condition, In treatment and Change in Medication Thrive Assessment: Date of Thrive Assessment Date Thrive assessed 02/06/23 01/03/24 08:36 Const Other: Alert oriented x3, no acute cardiorespiratory distress, ambulatory with normal gait Orientation/consciousness: patient oriented x3 HENMT Mouth: Normal oral and palatal mucosa present and moist mucous membranes Eyes General: appearance normal, both eyes and all related structures Neck Other: Supple, no lymphadenopathy, thyroid gland nonpalpable Neck: Yes no meningeal signs Resp Effort & Inspection: normal respiratory effort and able to speak in complete sentences Auscultation: clear to auscultation bilaterally Cardio Other: S1-S2 present regular rate and rhythm GI Palpation (GI): Soft to palpation, nontender, no guarding and no masses Auscultation: normal bowel sounds Back/Spine/Pelvis Other: no gross bone deformity or joint swelling seen Skin General skin exam: no rashes or lesions noted Neuro General: patient oriented x3, gait normal, tone normal, moves all extremities, Normal light touch and pain sensation, no meningeal signs, no focal motor deficits and CN's II-XI intact bilaterally Extrem General: Yes full ROM, Yes no calf tenderness and Yes normal gait Psych Appearance: grossly normal and well kempt Mental Status: mental status grossly normal Speech and movement: Normal speech and movement present Affect: normal affect Attitude: cooperative Thought process: Normal thought process present Results Reviewed Results Reviewed: Laboratory Tests 01/01/24 07:24 Estimat Average Glucose 148 Hemoglobin A1c % 6.8 H Name: Brittany Onofre Age/Sex: 78/F : 1945 Unit#: [id number] Attend Dr: Sary Waite MD Re01/01/24 Status: DEP [facility]F [facility] Disch: SPEC : [id number] KIKI: 01/01/24 STATUS: COMP REQ : [id number] RECD: 01/01/24-[address]: Sary Waite MD COMP: 01/01/24 ENTERED: 01/01/[address]: ORDERED: CMP Fast, Lipid Panel, Vitamin D 25-OH Test Result Flag Reference Sodium 141 135-145 mmol/L Potassium 4.1 3.3-5.1 mmol/L CL 106 96-108 mmol/L CO2 27 22-29 mmol/L Gap 12 12-20 BUN 16 9-16 mg/dL Creat 0.88 0.5-1.4 mg/dL EGFR > 60 NOTE: For -Emirati individuals, multiply the result by 1.210. Chronic Kidney Disease: Estimated GFR < 60 mL/min/1.73m2 Severe Kidney Disease: Estimated GFR < 15 mL/min/1.73m2 FBS 128 H 60-99 mg/dL A fasting glucose of 126 mg/dl or greater on more than one occasion is considered diagnostic of diabetes. CA 9.6 8.4-10.2 mg/dL Total Bili 0.3 0.0-1.0 mg/dL AST (GOT) 21 5-31 U/L ALT (GPT) 22 0-31 U/L Protein, Total 7.2 6.5-8.0 g/dL Alb 4.1 3.5-5.0 g/dL Triglyceride 127 <150 mg/dL Desirable Triglyceride: less than 150 mg/dL Borderline High Triglyceride 150-199 mg/dL High Triglyceride: 200-499 mg/dL Very High Triglyceride: greater than or equal to 5OO mg/dL Cholesterol 164 <200 mg/dL Desirable Cholesterol: less than 200 mg/dL Borderline High Cholesterol: 200-239 mg/dL High Cholesterol: greater than 239 mg/dL LDL Calculated 88 <100 mg/dL Desirable LDL: less than 100 mg/dL Near Optimal/Above Optimal LDL: 110-129 mg/dL Borderline High LDL: 130-159 mg/dL High LDL: 160-189 mg/dL Very High LDL: greater than or equal to 190 mg/dL HDL 51 >40 mg/dL Desirable HDL: greater than 40 mg/dL Note: This HDL assay may give artificially low results in patients with liver disease. Alk Phos 63 39-117 U/L Vit D 25-OH Tot 40.8 >30 ng/mL Health Based Reference Values* < 20 ng/mL Deficient 20-30 ng/mL Insufficient > 30 ng/mL Sufficient Assessment and Plan Assessment & Plan (1) Diabetes mellitus with hyperglycemia, with long-term current use of insulin: Code(s): E11.65 - Type 2 diabetes mellitus with hyperglycemia; Z79.4 - roasterman (current) use of insulin Qualifiers: Diabetes mellitus type: type 2 Qualified Code(s): E11.65 - Type 2 diabetes mellitus with hyperglycemia; Z79.4 - correction (current) use of insulin Plan: Hemoglobin A1c at 6.8%, down from 7.1% 3 months ago. Will increase dose of metformin to 750 mg extended release once a day in a.m. with breakfast, continue with Lantus 10 units at bedtime, continue monitor blood sugar with freestyle [place]. Reinforced importance of following recommended diet and getting regular exercise, due for her diabetes retinopathy exam with Dr. Chery in July 2024 (2) Mixed dyslipidemia: Code(s): E78.2 - Mixed hyperlipidemia Plan: Reviewed recent fasting lipid profile with patient with levels within normal limit . Continue atorvastatin 80 mg daily , in addition to adherence to low-cholesterol diet and regular exercise, at least 30 minutes 3 to 4 times a week. Advised patient to make healthy food choices, eat more fruits, vegetables, whole grains, wild caught fish and low-fat dairy. Limit amount of meat and fried or fatty food products, as well as processed foods and fast foods. Follow-up scheduled with repeat fasting lipid panel in 3 months. (3) Essential hypertension: Code(s): I10 - Essential (primary) hypertension Plan: Blood pressure at goal of less than 130/80. Continue with current medication. Reinforced importance of following a low sodium diet, getting regular exercise, and lowering stress levels. Currently followed by cardiology, Dr. Hernandez (4) Normocytic anemia: Code(s): D64.9 - Anemia, unspecified Plan: Continue iron supplements, will check again another CBC and iron profile in March 2024 (5) Depression: Code(s): F32.9 - Major depressive disorder, single episode, unspecified Qualifiers: Active/Remission status: currently active Depression Type: major depressive disorder Major depression episode severity: moderate Major depression recurrence: recurrent Qualified Code(s): F33.1 - Major depressive disorder, recurrent, moderate Plan: Increase sertraline dose to 150 mg daily in a.m., declined referral for counseling, will see her back for follow-up in 3 month Orders: Orders Hemoglobin A1c 03/14/24 D64.9 - Anemia, unspecified, E11.65 - Type 2 diabetes mellitus with hyperglycemia, E78.2 - Mixed hyperlipidemia, F32.5 - Major depressive disorder, single episode, in full remission, I10 - Essential (primary) hypertension, Z79.4 - correction (current) use of insulin Lipid Panel 03/14/24 D64.9 - Anemia, unspecified, E11.65 - Type 2 diabetes mellitus with hyperglycemia, E78.2 - Mixed hyperlipidemia, F32.5 - Major depre ssive disorder, single episode, in full remission, I10 - Essential (primary) hypertension, Z79.4 - roasterman (current) use of insulin Aspartate Amino Transferase 03/14/24 D64.9 - Anemia, unspecified, E11.65 - Type 2 diabetes mellitus with hyperglycemia, E78.2 - Mixed hyperlipidemia, F32.5 - Major depressive disorder, single episode, in full remission, I10 - Essential (primary) hypertension, Z79.4 - roasterman (current) use of insulin Basic Metabolic Panel Fasting 03/14/24 D64.9 - Anemia, unspecified, E11.65 - Type 2 diabetes mellitus with hyperglycemia, E78.2 - Mixed hyperlipidemia, F32.5 - Major depressive disorder, single episode, in full remission, I10 - Essential (primary) hypertension, Z79.4 - roasterman (current) use of insulin IRON PROFILE 03/14/24 D64.9 - Anemia, unspecified Microalbumin, Random (w Creat) 03/14/24 D64.9 - Anemia, unspecified, E11.65 - Type 2 diabetes mellitus with hyperglycemia, E78.2 - Mixed hyperlipidemia, F32.5 - Major depressive disorder, single episode, in full remission, I10 - Essential (primary) hypertension, Z79.4 - roasterman (current) use of insulin Alanine Aminotransferase 03/14/24 D64.9 - Anemia, unspecified, E11.65 - Type 2 diabetes mellitus with hyperglycemia, E78.2 - Mixed hyperlipidemia, F32.5 - Major depressive disorder, single episode, in full remission, I10 - Essential (primary) hypertension, Z79.4 - correction (current) use of insulin Complete Blood Count Auto Diff 03/14/24 D64.9 - Anemia, unspecified Medications: New metformin ER 750 mg PO DAILY 90 tabs 0RF Changed From sertraline (Zoloft) 100 mg PO DAILY 100 tabs 1RF To sertraline (Zoloft) 150 mg (1.5 x 100 mg) PO DAILY 3 months 135 tabs 2RF Discontinued metformin ER Discontinued Reason: Doctor's Order 500 mg PO QAM 90 tabs 1RF Coding Level of Care Code Est Pt Level 4 (50436) Diagnoses Type 2 diabetes mellitus with hyperglycemia, with long-term current use of i nsulin E11.65; Z79.4 Diabetes mellitus type: type 2 Mixed dyslipidemia E78.2 Essential hypertension I10 Normocytic anemia D64.9 Moderate episode of recurrent major depressive disorder F33.1 Active/Remission status: currently active Depression Type: major depressive disorder Major depression episode severity: moderate Major depression recurrence: recurrent Additional Codes BO-7 Assessment Billing - BO-7 Assessment Tool: BO-7 Assessment 39516 ([id number])
== END 2024-01-03 10:27 | disposition home or self-care (01) ==
PROVIDERS: PCP Internal Medicine; Visit Provider Internal Medicine
DX: E11.65 Type 2 diabetes mellitus with hyperglycemia (principal); Z79.4 Long term (current) use of insulin; E78.2 Mixed hyperlipidemia; I10 Essential (primary) hypertension; F33.1 Major depressive disorder, recurrent, moderate; D64.9 Anemia, unspecified
CPT/HCPCS: 96127; 99214

== ENCOUNTER 2024-03-04 09:39 | Outpatient (REF) | payer MEDICARE, SELFPAY ==
[2024-03-04 13:15] LABS: MANUAL DIFF FLAG NO
[2024-03-04 13:21] LABS: Basophils Percent Auto 0.2 % (0-2); Eosinophils Absolute Auto 0.1 X10*3/uL (0.0-0.4); Eosinophils Percent Auto 1.7 % (0-4); Hematocrit 32.3 % (37.0-47.0); Hemoglobin 10.8 g/dl (12.0-16.0); Imm Gran Abs Auto 0.01 X10*3/uL (0.00-0.03); Imm Gran Pct Auto 0.2 % (0.0-0.4); Lymphocytes Absolute Auto 1.4 X10*3/uL (1.2-4.9); Lymphocytes Percent Auto 26.3 % (20-40); Mean Corpuscular HGB Conc 33.4 g/dl (31.0-35.0); Mean Corpuscular Hemoglobin 32.6 pg (27.0-33.0); Mean Corpuscular Volume 97.6 fL (80.0-98.0); Mean Platelet Volume 10.9 fL (9.4-12.3); Monocytes Absolute Auto 0.5 X10*3/uL (0.1-1.2); Neutrophils Absolute Auto 3.3 x10*3/uL (2.0-8.3); Neutrophils Percent Auto 61.6 % (45-73); Platelet Count 219 X10*3/uL (160-400); Red Blood Count 3.31 X10*6/uL (4.20-5.50); Red Cell Distribution Width 12.4 % (11.0-16.0); White Blood Count 5.4 X10*3/uL (4.8-10.8)
[2024-03-04 13:31] LABS: Estimated Average Glucose 166 mg/dL; Hemoglobin A1c % 7.4 % (<6.0)
[2024-03-04 13:36] LABS: Alanine Aminotransferase 16 U/L (0-31); Anion Gap 14 (12-20); Aspartate Amino Transferase 18 U/L (5-31); Blood Urea Nitrogen 21 mg/dL (9-16); Calcium 9.7 mg/dL (8.4-10.2); Carbon Dioxide 24 mmol/L (22-29); Chloride 106 mmol/L (96-108); Cholesterol 136 mg/dL (<200); Estimated Glomerular Filt Rate > 60; Glucose Fasting 200 mg/dL (60-99); HDL Cholesterol 52 mg/dL (>40); Iron 90 mcg/dL (30-160); LDL Cholesterol Calculated 59 mg/dL (<100); Percent Iron Saturation 34 % (15-50); Potassium 3.9 mmol/L (3.3-5.1); Sodium 140 mmol/L (135-145); Total Iron Binding Capacity 261 mcg/dL (228-428); Triglycerides 125 mg/dL (<150); Unsaturated Iron Binding 171 ug/dL
[2024-03-04 13:56] LABS: Creatinine Urine 104.42 mg/dL; Microalbum/Creatinine Ratio Ur 13.4 ug/mg cr (<30)
== END 2024-03-04 09:40 | disposition home or self-care (01) ==
LOC: HO.HMGCLDS 09:39
PROVIDERS: PCP Internal Medicine; Visit Provider Internal Medicine
DX: E11.65 Type 2 diabetes mellitus with hyperglycemia (principal); Z79.4 Long term (current) use of insulin; E78.2 Mixed hyperlipidemia; I10 Essential (primary) hypertension; F32.5 Major depressive disorder, single episode, in full remission; D64.9 Anemia, unspecified
CPT/HCPCS: 36415; 80048; 80061; 82043; 82570; 83036; 83540; 84450; 84460; 85025

== ENCOUNTER 2024-03-30 12:02 | Outpatient (AMB) | payer MEDICARE, SELFPAY ==
--- NOTE | 2024-03-30 12:33 | MHC.PC.OV ---
Vital Signs 03/30/24 12:40 Height 5 ft Weight 161 lb BMI 31.4 BP 120/70 Blood Pressure Location Lt brachial Position Sitting Pulse 75 Pulse Source Pulse Oximeter Pulse Oximetry (%) 95 Oxygen Delivery Method Room Air Intake Visit Reasons: 3 month follow up Intake Note: pt is here for 3 mo f/u for depression Allergies sulfamethoxazole [From Bactrim] Allergy (Severe, Verified 03/30/24 13:04) Rash adhesive tape [ADHESIVE TAPE] Allergy (Intermediate, Verified 03/30/24 13:04) BLISTERS clonidine Allergy (Verified 03/30/24 13:04) makes pt hulusinate adhesive Adverse Reaction (Severe, Verified 03/30/24 13:04) BLISTERS gabapentin Adverse Reaction (Severe, Verified 03/30/24 13:04) hallucination hydromorphone [From Dilaudid] Adverse Reaction (Severe, Verified 03/30/24 13:04) Hallucinations morphine Adverse Reaction (Severe, Verified 03/30/24 13:04) hallucination glue Adverse Reaction (Severe, Uncoded 03/30/24 13:04) BLISTERS Medication List - Last Reconciled 03/30/24 by Sary Waite MD acetaminophen 500 mg PO BID apixaban (Eliquis) 1 tab PO Q12H atorvastatin 80 mg PO BEDTIME azelastine 2 sprays intranasal BID PRN blood sugar diagnostic ([employer]im [employer] Ultra Test strips) test blood sugar once daily blood-glucose meter ([employer] Ultra2 Meter) As directed to test blood sugar once a day cetirizine (Zyrtec) 10 mg PO DAILY cholecalciferol (vitamin D3) 50 mcg PO DAILY clotrimazole 2% 1 appful vaginal BEDTIME PRN clotrimazole-betamethasone 1-0.05 % 1 appl topical BID 10 days Donut pillow As directed ferrous fumarate 325 mg PO Q2D flash glucose scanning reader (FreeStyle [place] 2 [place]) As directed flash glucose sensor (FreeStyle [place] 2 Sensor kit) check glucose twice a day as directed folic acid 1 mg PO DAILY 90 days hyoscyamine sulfate 0.125 mg PO BID PRN insulin glargine (Lantus Solostar U-100 Insulin) 10 units (0.1 mL) subcut QPM isosorbide mononitrate ER 30 mg PO DAILY lancets (OneTouch Delica Lancets) test blood sugar once a day mmaivz-oxcmqryr-tqhirtp 10,000-32,000 -42,000 unit (Zenpep) 1 cap PO TID 30 days lisinopril 2.5 mg PO DAILY loperamide 2 mg PO TID PRN lorazepam 0.5 mg PO .qd PRN metformin ER 750 mg PO DAILY metoprolol succinate ER 150 mg (3 x 50 mg) PO BEDTIME omeprazole 40 mg PO DAILY 90 days ondansetron 4 mg PO Q8H PRN 30 days oxycodone 10 mg PO Q6-8H PRN pen needle, diabetic (BD Ultra-Fine Original Pen Needle) Use to inject insulin 4 times per day sennosides (senna) 8.6 mg PO BEDTIME PRN sertraline (Zoloft) 150 mg (1.5 x 100 mg) PO DAILY 3 months trazodone 50 mg PO BEDTIME verapamil ER 100 mg PO BEDTIME Tobacco use date assessed: 03/30/24 Fall risk assessment: No Falls in past year Last assessed Fall Risk: 03/30/24 Dental Screening Dental Screen Date: 03/30/24 Did you have a dental visit in the last 12 months?: No Did you have a dental problem in the last 6 months where you did not have access to dental care?: No Was dental information given to patient?: No HPI 3 month follow up HPI Details 78-year-old lady here today for follow-up on her diabetes, hypertension , hyperlipidemia and depression. She has been taking her medications as directed, compliant with her diet but admits to not getting any exercise at all. She also states that her depression for the most part is stable , but has a lot of family issues going on. Does not want to have her medication adjusted and does not want to be referred for counseling. She is up-to-date with her diabetes retinopathy screening, goes to [facility]. [facility] Medical History (Updated 03/30/24 @ 16:44 by Sary Waite MD) Depression Diabetes mellitus with hyperglycemia, with long-term current use of insulin Swelling of knee joint, left Hx of sigmoidoscopy Metformin adverse reaction Adenocarcinoma of left lung (~2021) Aortic stenosis Atypical migraine Transient cerebral ischemia AVM (arteriovenous malformation) of colon Normocytic anemia Nonrheumatic mitral valve regurgitation Nonrheumatic aortic (valve) stenosis Obesity History of blood transfusion Barretts esophagus AAA (abdominal aortic aneurysm) (~2008) Bleeding hemorrhoids Anemia Arthritis On anticoagulant therapy (~10/2020) On beta [place] at home Pulmonary nodules Mixed dyslipidemia Vitamin B12 deficiency GIB (gastrointestinal bleeding) COPD (chronic obstructive pulmonary disease) Bilateral pulmonary embolism (~10/2020) Restless leg syndrome Irritable bowel syndrome with both constipation and diarrhea GERD without esophagitis CAD (coronary artery disease) Essential hypertension Surgical History History of lung biopsy (~2021) History of esophagogastroduodenoscopy (EGD) (~2020) History of hysterectomy History of colonoscopy (~2018) History of coronary artery bypass graft x 2 (~2017) History of total right knee replacement (TKR) (~2015) History of bilateral breast reduction surgery (~2010) S/P excision of lipoma (~2017) History of heart artery stent (~2007) Family History Father HTN (hypertension) Myocardial infarction Hyperlipidemia Abdominal aneurysm Mother HTN (hypertension) Myocardial infarction Hyperlipidemia Brother Alzheimer's disease Substance abuse Sister Rheumatoid arthritis Brother Rheumatoid arthritis Maternal Aunt Diabetes mellitus Lung cancer Maternal Uncle Diabetes mellitus Son No problems noted. Daughter No problems noted. 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 1. Little interest or pleasure in doing things: not at all 2. Feeling down, depressed, or hopeless: not at all 3. Trouble falling or staying asleep, or sleeping too much: not at all 4. Feeling tired or having little energy: not at all 5. Poor appetite or overeating: not at all 6. Feeling bad about yourself - or that you are a failure or have let yourself or your family down: not at all 7. Trouble concentrating on things, such as reading the newspaper or watching television: not at all 8. Moving or speaking so slowly that other people could have noticed. Or the opposite - being so fidgety or restless that you have been moving around a lot more than usual: not at all 9. Thoughts that you would be better off or of hurting yourself in some way: not at all Total score: 0 Depression Screening Interpretation: Negative Depression Screening Done: Yes 27615 - PHQ-9 Billing: Yes Source: Developed by Drs. Alexey Arreaga, Yokasta Paulino, Pieter Oro and colleagues, with an educational jose j from [employer]. Thrive Questionnaire Date Thrive assessed: 01/03/24 AUDIT C Alcohol Use Questionnaire (AUDIT-C) 1. How often do you have a drink containing alcohol?: 2-4 times a month 2. How many drinks containing alcohol do you have on a typical day when you are drinking?: 1 or 2 3. How often do you have six or more drinks on one occasion?: Never Total Score: 2 Score Reviewed/Action Taken: Yes BO-7 AMB Questionnaire BO-7 Date BO - 7 assessed: 03/30/24 Feeling nervous, anxious, or on edge: 0 = Not at all Not being able to stop or control worryin = Not at all Worrying too much about different things: 0 = Not at all Trouble relaxin = Not at all Being so restless that it is hard to sit still: 0 = Not at all Becoming easily annoyed or irritable: 0 = Not at all Feeling afraid as if something awful might happen: 0 = Not at all Total BO-7 score (0-4 normal; 5-9 mild; 10-14 moderate; 15-21 severe): 0 Source: Developed by Drs. Alexey Arreaga, Yokasta Paulino, Pieter Oro and colleagues, with an educational jose j from [employer]. BO-7 Assessment Billing BO-7 Assessment Tool: BO-7 Assessment 57500 Review of Systems Const Denies fever(s), Denies frequent falls and Denies headache(s) Eyes Denies change in vision ENT Denies dysphagia, Denies dizziness and Denies headache(s) Card Denies syncope, Denies rapid heart rate, Denies irregular heart rhythm, Denies lightheadedness and Denies dyspnea Resp Denies cough, Denies dyspnea and Denies wheezing GI Denies abdominal pain, Denies melena, Denies hematochezia, Denies change in bowel habits, Denies dysphagia and Denies vomiting Musc Denies arthralgias, Denies joint swelling, Denies numbness and Reports stiffness Neuro Denies dizziness, Denies syncope, Denies frequent falls, Denies headache(s) and Denies numbness Psych Reports no additional complaints Endo Denies polyphagia Lele/Lymph Reports easy bruising Aller/Immun Denies wheezing Physical exam (Primary Care) Vital Signs: Last Vital Signs Pulse 75 03/30/24 12:40 BP 120/70 03/30/24 12:40 Pulse Ox 95 03/30/24 12:40 Oxygen Delivery Method Room Air 03/30/24 12:40 BMI result Body Mass Index 31.4 Tobacco/Smoking Status: Tobacco use Status Tobacco use date assessed 03/30/24 03/30/24 12:34 Patient Tobacco Use Status Former Tobacco user 03/30/24 12:34 Tobacco use type Cigarette 03/30/24 12:34 e-Cigarette/Vaping Use Never Used 03/30/24 12:34 PHQ-9: PHQ-9 Score PHQ-9: Total score 0 03/30/24 16:43 Depression Screening Interpretation: Negative Thrive Assessment: Date of Thrive Assessment Date Thrive assessed 01/03/24 03/30/24 12:34 Const Other: Alert oriented x3, no acute cardiorespiratory distress, ambulatory with normal gait Orientation/consciousness: patient oriented x3 HENMI Mouth: Normal oral and palatal mucosa present and moist mucous membranes Eyes General: appearance normal, both eyes and all related structures Neck Other: Supple, no lymphadenopathy, thyroid gland nonpalpable Neck: Yes no meningeal signs Resp Effort & Inspection: normal respiratory effort and able to speak in complete sentences Auscultation: clear to auscultation bilaterally Cardio Other: S1-S2 present regular rate and rhythm GI Palpation (GI): Soft to palpation, nontender, no guarding and no masses Auscultation: normal bowel sounds Back/Spine/Pelvis Other: no gross bone deformity or joint swelling seen Skin General skin exam: no rashes or lesions noted Neuro General: patient oriented x3, gait normal, tone normal, moves all extremities, Normal light touch and pain sensation, no meningeal signs, no focal motor deficits and CN's II-XI intact bilaterally Extrem General: Yes full ROM, Yes no calf tenderness and Yes normal gait Psych Appearance: grossly normal and well kempt Mental Status: mental status grossly normal Speech and movement: Normal speech and movement present Affect: normal affect Attitude: cooperative Thought process: Normal thought process present Results Reviewed Results Reviewed: Laboratory Tests 03/04/24 09:48 Urine Creatinine 104.42 Urine Microalbumin 14.0 Microalb/Creat Ratio 13.4 Laboratory Tests 03/04/24 09:48 Estimat Average Glucose 166 Hemoglobin A1c % 7.4 H Name: Brittany Onofre Age/Sex: 78/F : 1945 Unit#: [id number] Attend Dr: Sary Waite MD Re03/04/24 Status: DEP REF Location: [facility] Disch: SPEC : [id number] KIKI: 03/04/24 STATUS: COMP REQ : [id number] RECD: 03/04/24-[address]: Sary Waite MD COMP: 03/04/24 ENTERED: 03/04/[address]: ORDERED: Met Prof Fast, IRON PROF, AST, ALT, Lipid Panel Test Result Flag Reference Sodium 140 135-145 mmol/L Potassium 3.9 3.3-5.1 mmol/L CL 106 96-108 mmol/L CO2 24 22-29 mmol/L Gap 14 12-20 BUN 21 H 9-16 mg/dL Creat 0.85 0.5-1.4 mg/dL EGFR > 60 NOTE: For -Cymraes individuals, multiply the result by 1.210. Chronic Kidney Disease: Estimated GFR < 60 mL/min/1.73m2 Severe Kidney Disease: Estimated GFR < 15 mL/min/1.73m2 FBS 200 H 60-99 mg/dL A fasting glucose of 126 mg/dl or greater on more than one occasion is considered diagnostic of diabetes. CA 9.7 8.4-10.2 mg/dL Iron 90 30-160 mcg/dL TIBC 261 228-428 mcg/dL Saturation 34 15-50 % UIBC 171 ug/dL AST (GOT) 18 5-31 U/L ALT (GPT) 16 0-31 U/L Triglyceride 125 <150 mg/dL Desirable Triglyceride: less than 150 mg/dL Borderline High Triglyceride 150-199 mg/dL High Triglyceride: 200-499 mg/dL Very High Triglyceride: greater than or equal to 5OO mg/dL Cholesterol 136 <200 mg/dL Desirable Cholesterol: less than 200 mg/dL Borderline High Cholesterol: 200-239 mg/dL High Cholesterol: greater than 239 mg/dL LDL Calculated 59 <100 mg/dL Desirable LDL: less than 100 mg/dL Near Optimal/Above Optimal LDL: 110-129 mg/dL Borderline High LDL: 130-159 mg/dL High LDL: 160-189 mg/dL Very High LDL: greater than or equal to 190 mg/dL HDL 52 >40 mg/dL Desirable HDL: greater than 40 mg/dL Note: This HDL assay may give artificially low results in patients with liver disease. Assessment and Plan Assessment & Plan (1) Diabetes mellitus with hyperglycemia, with long-term current use of insulin: Code(s): E11.65 - Type 2 diabetes mellitus with hyperglycemia; Z79.4 - joint terminal attack controller (current) use of insulin Qualifiers: Diabetes mellitus type: type 2 Qualified Code(s): E11.65 - Type 2 diabetes mellitus with hyperglycemia; Z79.4 - MCC (current) use of insulin Plan: Discontinued metformin 750 mg taken once a day and changed to metformin ER 500 mg/tablet be taken 1 tablet twice a day with meals. Reinforced importance of following recommended diet and getting regular exercise. Up-to-date with her diabetes retinopathy screening, repeat hemoglobin A1c, basic metabolic panel and liver enzymes in 3 months. (2) AAA (abdominal aortic aneurysm): Onset Date: ~2008 Comment: (Dx 2008- followed by PCP) CT of abd/pelvis done 10/2023 showed 3.4 cm infrarenal abdominal aortic aneurysm. Code(s): I71.4 - Abdominal aortic aneurysm, without rupture Plan: Latest CT of abdomen pelvis showed stable 3.4 cm infrarenal abdominal aortic aneurysm.. Will continue to monitor yearly, patient currently asymptomatic (3) Depression: Code(s): F32.9 - Major depressive disorder, single episode, unspecified Qualifiers: Depression Type: major depressive disorder Major depression recurrence: recurrent Active/Remission status: currently active Major depression episode severity: moderate Qualified Code(s): F33.1 - Major depressive disorder, recurrent, moderate Plan: Continue with sertraline 150 mg once a day. And on trazodone 50 mg at bedtime and has lorazepam 0.5 mg per tablet to take once a day as needed for acute attacks of anxiety (4) Mixed dyslipidemia: Code(s): E78.2 - Mixed hyperlipidemia Plan: Reviewed recent fasting lipid profile with patient with levels within normal . Continue atorvastatin 80 mg daily , in addition to adherence to low-cholesterol diet and regular exercise, at least 30 minutes 3 to 4 times a week. Advised patient to make healthy food choices, eat more fruits, vegetables, whole grains, wild caught fish and low-fat dairy. Limit amount of meat and fried or fatty food products, as well as processed foods and fast foods. Follow-up scheduled with repeat fasting lipid panel in 3 months. (5) Essential hypertension: Code(s): I10 - Essential (primary) hypertension Plan: Blood pressure at goal of less than 130/80. Continue with current medication. Reinforced importance of following a low sodium diet, getting regular exercise, and lowering stress levels. Orders: Orders Hemoglobin A1c 06/14/24 E11.65 - Type 2 diabetes mellitus with hyperglycemia, Z79.4 - MCC (current) use of insulin Basic Metabolic Panel Fasting 06/14/24 E11.65 - Type 2 diabetes mellitus with hyperglycemia, Z79.4 - MCC (current) use of insulin Alanine Aminotransferase 06/14/24 E11.65 - Type 2 diabetes mellitus with hyperglycemia, Z79.4 - joint terminal attack controller (current) use of insulin Aspartate Amino Transferase 06/14/24 E11.65 - Type 2 diabetes mellitus with hyperglycemia, Z79.4 - MCC (current) use of insulin Medications: New metformin ER 500 mg PO BID 180 tabs 1RF 90 days Coding Level of Care Code Est Pt Level 4 (28881) Complex EM visit Add On G2211 Diagnoses Type 2 diabetes mellitus with hyperglycemia, with long-term current use of insulin E11.65; Z79.4 Diabetes mellitus type: type 2 AAA (abdominal aortic aneurysm) I71.4 Moderate episode of recurrent major depressive disorder F33.1 Depression Type: major depressive disorder Major depression recurrence: recurrent Active/Remission status: currently active Major depression episode severity: moderate Mixed dyslipidemia E78.2 Essential hypertension I10 Additional Codes BO-7 Assessment Billing - BO-7 Assessment Tool: BO-7 Assessment [id number] ([id number])
[2024-03-30 12:40] VITALS: BP 120/70; PULSE 75; O2SAT 95; BMI 31.4
== END 2024-03-30 13:21 | disposition home or self-care (01) ==
PROVIDERS: PCP Internal Medicine; Visit Provider Internal Medicine
DX: E11.65 Type 2 diabetes mellitus with hyperglycemia (principal); Z79.4 Long term (current) use of insulin; I71.40 Abdominal aortic aneurysm, without rupture, unspecified; F33.1 Major depressive disorder, recurrent, moderate; E78.2 Mixed hyperlipidemia; I10 Essential (primary) hypertension
CPT/HCPCS: 99214; G2211

== ENCOUNTER 2024-06-30 10:09 | Outpatient (REF) | payer MEDICARE, SELFPAY ==
[2024-06-30 14:11] LABS: Estimated Average Glucose 163 mg/dL; Hemoglobin A1c % 7.3 % (<6.0)
[2024-06-30 14:29] LABS: Alanine Aminotransferase 23 U/L (0-31); Anion Gap 13 (12-20); Aspartate Amino Transferase 23 U/L (5-31); Blood Urea Nitrogen 16 mg/dL (9-16); Calcium 9.8 mg/dL (8.4-10.2); Carbon Dioxide 25 mmol/L (22-29); Chloride 108 mmol/L (96-108); Estimated Glomerular Filt Rate > 60; Glucose Fasting 162 mg/dL (60-99); Potassium 3.8 mmol/L (3.3-5.1); Sodium 142 mmol/L (135-145)
== END 2024-06-30 10:10 | disposition home or self-care (01) ==
LOC: HO.HMGCLDS 10:09
PROVIDERS: PCP Internal Medicine; Visit Provider Internal Medicine
DX: E11.65 Type 2 diabetes mellitus with hyperglycemia (principal); Z79.4 Long term (current) use of insulin
CPT/HCPCS: 36415; 80048; 83036; 84450; 84460

== ENCOUNTER 2024-07-01 11:53 | Outpatient (AMB) | payer MEDICARE, SELFPAY ==
--- NOTE | 2024-07-01 12:15 | MHC.PC.OV ---
Vital Signs 07/01/24 12:16 Height 5 ft Weight 164 lb 6 oz BMI 32.1 BP 110/70 Blood Pressure Location Lt brachial Position Sitting Pulse 64 Pulse Source Pulse Oximeter Pulse Oximetry (%) 97 Oxygen Delivery Method Room Air Intake Visit Reasons: 3 month follow up Intake Note: Patient here for f/u. Allergies sulfamethoxazole [From Bactrim] Allergy (Severe, Verified 07/06/24 00:47) Rash adhesive tape [ADHESIVE TAPE] Allergy (Intermediate, Verified 07/06/24 00:47) BLISTERS clonidine Allergy (Verified 07/06/24 00:47) makes pt hulusinate adhesive Adverse Reaction (Severe, Verified 07/06/24 00:47) BLISTERS gabapentin Adverse Reaction (Severe, Verified 07/06/24 00:47) hallucination hydromorphone [From Dilaudid] Adverse Reaction (Severe, Verified 07/06/24 00:47) Hallucinations morphine Adverse Reaction (Severe, Verified 07/06/24 00:47) hallucination glue Adverse Reaction (Severe, Uncoded 07/06/24 00:47) BLISTERS Medication List - Last Reconciled 07/01/24 by Sary Waite MD acetaminophen 500 mg PO BID apixaban (Eliquis) 1 tab PO Q12H atorvastatin 80 mg PO BEDTIME azelastine 2 sprays intranasal BID PRN blood sugar diagnostic ([employer] Ultra Test strips) test blood sugar once daily blood-glucose meter ([employer] Ultra2 Meter) As directed to test blood sugar once a day cetirizine (Zyrtec) 10 mg PO DAILY cholecalciferol (vitamin D3) 50 mcg PO DAILY clotrimazole 2% 1 appful vaginal BEDTIME PRN clotrimazole-betamethasone 1-0.05 % 1 appl topical BID 10 days Donut pillow As directed ferrous fumarate 325 mg PO Q2D flash glucose scanning reader (FreeStyle [place] 2 [place]) As directed flash glucose sensor (FreeStyle [place] 2 Sensor kit) check glucose twice a day as directed folic acid 1 mg PO DAILY 90 days hyoscyamine sulfate 0.125 mg PO BID PRN insulin glargine (Lantus Solostar U-100 Insulin) 10 units (0.1 mL) subcut QPM isosorbide mononitrate ER 30 mg PO DAILY lancets (OneTouch Delica Lancets) test blood sugar once a day kbaeqa-djypscbl-cymhfww 10,000-32,000 -42,000 unit (Zenpep) 1 cap PO TID 30 days lisinopril 2.5 mg PO DAILY loperamide 2 mg PO TID PRN lorazepam 0.5 mg PO .qd PRN metformin ER 750 mg PO BID metoprolol succinate ER 150 mg (3 x 50 mg) PO BEDTIME omeprazole 40 mg PO DAILY 90 days ondansetron 4 mg PO Q8H PRN 30 days oxycodone 10 mg PO Q6-8H PRN pen needle, diabetic (BD Ultra-Fine Original Pen Needle) Use to inject insulin 4 times per day sennosides (senna) 8.6 mg PO BEDTIME PRN sertraline (Zoloft) 150 mg (1.5 x 100 mg) PO DAILY 3 months trazodone 50 mg PO BEDTIME verapamil ER 100 mg PO BEDTIME Tobacco use date assessed: 03/30/24 Fall risk assessment: No Falls in past year Last assessed Fall Risk: 07/01/24 Dental Screening Dental Screen Date: 03/30/24 HPI 3 month follow up HPI Details 79-year-old lady with history of metastatic non-small cell lung cancer with mets to the bone with recent therapy with pembrolizumab, SBRT ([facility]), aortic stenosis, mitral regurgitation, AAA, pulmonary embolism October 2020 on Eliquis, has been deemed not a surgical candidate for her lung cancer because of underlying aortic stenosis and coronary artery disease, here today for follow-up on her diabetes mellitus and hyperlipidemia. She is currently on Lantus 10 units at bedtime and metformin ER 750 mg 1 tablet twice a day, takes atorvastatin 80 mg at bedtime, with latest fasting labs showed hemoglobin A1c at 7.2% and fasting lipids are within normal limits. She has been taking her medications as directed, but admits to being noncompliant with diet and not getting any exercise at all. Has been indulging in ice-cream Sundays almost every day during the summer. She is currently taking sertraline 150 mg daily and trazodone at bedtime which has been helping in controlling her depression. She is being followed by [facility] cardiology, sees Dr. Hernandez , states that she was just recently seen there but no consult reports received since 2022. [facility] Medical History Depression Diabetes mellitus with hyperglycemia, with long-term current use of insulin Swelling of knee joint, left Hx of sigmoidoscopy Metformin adverse reaction Adenocarcinoma of left lung (~2021) Aortic stenosis Atypical migraine Transient cerebral ischemia AVM (arteriovenous malformation) of colon Normocytic anemia Nonrheumatic mitral valve regurgitation Nonrheumatic aortic (valve) stenosis Obesity History of blood transfusion Barretts esophagus AAA (abdominal aortic aneurysm) (~2008) Bleeding hemorrhoids Anemia Arthritis On anticoagulant therapy (~10/2020) On beta [place] at home Pulmonary nodules Mixed dyslipidemia Vitamin B12 deficiency GIB (gastrointestinal bleeding) COPD (chronic obstructive pulmonary disease) Bilateral pulmonary embolism (~10/2020) Restless leg syndrome Irritable bowel syndrome with both constipation and diarrhea GERD without esophagitis CAD (coronary artery disease) Essential hypertension Surgical History History of lung biopsy (~2021) History of esophagogastroduodenoscopy (EGD) (~2020) History of hysterectomy History of colonoscopy (~2018) History of coronary artery bypass graft x 2 (~2017) History of total right knee replacement (TKR) (~2015) History of bilateral breast reduction surgery (~2010) S/P excision of lipoma (~2017) History of heart artery stent (~2007) Family History Father HTN (hypertension) Myocardial infarction Hyperlipidemia Abdominal aneurysm Mother HTN (hypertension) Myocardial infarction Hyperlipidemia Brother Alzheimer's disease Substance abuse Sister Rheumatoid arthritis Brother Rheumatoid arthritis Maternal Aunt Diabetes mellitus Lung cancer Maternal Uncle Diabetes mellitus Son No problems noted. Daughter No problems noted. 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 1. Little interest or pleasure in doing things: several days 2. Feeling down, depressed, or hopeless: several days 3. Trouble falling or staying asleep, or sleeping too much: not at all 4. Feeling tired or having little energy: several days 5. Poor appetite or overeating: several days 6. Feeling bad about yourself - or that you are a failure or have let yourself or your family down: not at all 7. Trouble concentrating on things, such as reading the newspaper or watching television: not at all 8. Moving or speaking so slowly that other people could have noticed. Or the opposite - being so fidgety or restless that you have been moving around a lot more than usual: not at all 9. Thoughts that you would be better off or of hurting yourself in some way: not at all Total score: 4 Depression Screening Interpretation: Positive (Better controlled on sertraline) Depression Screening Follow-up: Existing condition and In treatment Depression Screening Done: Yes Source: Developed by Drs. Alexey Arreaga, Yokasta Paulino, Pieter Oro and colleagues, with an educational jose j from [employer]. Thrive Questionnaire Date Thrive assessed: 01/03/24 I am a: Patient What is your living situation today?: I have a steady place to live Within the past 12 months, did the food you bought not last and you didn't have the money to get more?: Never true Within the past 12 months, did you worry whether your food would run out before you got money to buy more?: Never true Do you have trouble paying for medicines?: No Do you have trouble getting transportation to medical appointments?: No Do you have trouble paying your heating and electricity bill?: No Do you have trouble taking care of your child, family member or friend?: No Do you have trouble with day-to-day activities such as bathing, preparing meals, shopping, managing finances, etc.?: No Are you interested in more education?: No Please select the resources that you would like help with: None Currently or been in a relationship where the following occur: No concerns reported THRIVE Score: 0 AUDIT C Alcohol Use Questionnaire (AUDIT-C) 1. How often do you have a drink containing alcohol?: Monthly or less 2. How many drinks containing alcohol do you have on a typical day when you are drinking?: 1 or 2 3. How often do you have six or more drinks on one occasion?: Never Total Score: 1 BO-7 AMB Questionnaire BO-7 Date BO - 7 assessed: 03/30/24 Feeling nervous, anxious, or on edge: 1 = Several days Not being able to stop or control worryin = Several days Worrying too much about different things: 1 = Several days Trouble relaxin = Several days Being so restless that it is hard to sit still: 1 = Several days Becoming easily annoyed or irritable: 1 = Several days Feeling afraid as if something awful might happen: 1 = Several days Total BO-7 score (0-4 normal; 5-9 mild; 10-14 moderate; 15-21 severe): 7 Source: Developed by Drs. Alexey Arreaga, Yokasta Paulino, Pieter Oro and colleagues, with an educational jose j from [employer]. BO-7 Assessment Billing BO-7 Assessment Tool: BO-7 Assessment 72358 Review of Systems Const Denies fever(s), Denies frequent falls and Denies headache(s) Eyes Denies change in vision ENT Denies dysphagia, Denies dizziness and Denies headache(s) Card Denies syncope, Denies rapid heart rate, Denies irregular heart rhythm, Denies lightheadedness and Denies dyspnea Resp Denies cough, Denies dyspnea and Denies wheezing GI Denies abdominal pain, Denies melena, Denies hematochezia, Denies change in bowel habits, Denies dysphagia and Denies vomiting Musc Denies arthralgias, Denies joint swelling, Denies numbness and Reports stiffness Neuro Denies dizziness, Denies syncope, Denies frequent falls, Denies headache(s) and Denies numbness Psych Reports no additional complaints Endo Denies polyphagia Lele/Lymph Reports easy bruising Aller/Immun Denies wheezing Physical exam (Primary Care) Vital Signs: Last Vital Signs Pulse 64 07/01/24 12:16 BP 110/70 07/01/24 12:16 Pulse Ox 97 07/01/24 12:16 Oxygen Delivery Method Room Air 07/01/24 12:16 BMI result Body Mass Index 32.1 Tobacco/Smoking Status: Tobacco use Status Tobacco use date assessed 03/30/24 07/01/24 12:19 Patient Tobacco Use Status Former Tobacco user 07/01/24 12:19 Tobacco use type Cigarette 07/01/24 12:19 e-Cigarette/Vaping Use Never Used 07/01/24 12:19 PHQ-9: PHQ-9 Score PHQ-9: Total score 4 07/01/24 12:56 Depression Screening Interpretation: Positive (Better controlled on sertraline) Depression Screening Follow-up: Existing condition and In treatment Thrive Assessment: Date of Thrive Assessment Date Thrive assessed 01/03/24 07/01/24 12:19 Currently or been in a relationship where the following occur: No concerns reported Const Other: Alert oriented x3, no acute cardiorespiratory distress, ambulatory with normal gait Orientation/consciousness: patient oriented x3 HENMT Mouth: Normal oral and palatal mucosa present and moist mucous membranes Eyes General: appearance normal, both eyes and all related structures Neck Other: Supple, no lymphadenopathy, thyroid gland nonpalpable Neck: Yes no meningeal signs Resp Effort & Inspection: normal respiratory effort and able to speak in complete sentences Auscultation: clear to auscultation bilaterally Cardio Other: S1-S2 present regular rate and rhythm GI Palpation (GI): Soft to palpation, nontender, no guarding and no masses Auscultation: normal bowel sounds Back/Spine/Pelvis Other: no gross bone deformity or joint swelling seen Skin General skin exam: no rashes or lesions noted Neuro General: patient oriented x3, gait normal, tone normal, moves all extremities, Normal light touch and pain sensation, no meningeal signs, no focal motor deficits and CN's II-XI intact bilaterally Extrem General: Yes full ROM, Yes no calf tenderness and Yes normal gait Psych Appearance: grossly normal and well kempt Mental Status: mental status grossly normal Speech and movement: Normal speech and movement present Affect: normal affect Attitude: cooperative Thought process: Normal thought process present Results Reviewed Results Reviewed: Laboratory Tests 06/30/24 10:34 Estimat Average Glucose 163 Hemoglobin A1c % 7.3 H Name: Brittany Onofre Sorin Age/Sex: 79/F : 1945 Unit#: [id number] Attend Dr: Sary Waite MD Re06/30/24 Status: DEP REF Location: [facility] Disch: SPEC : [id number] KIKI: 06/30/24 STATUS: COMP REQ : [id number] RECD: 06/30/24-[address]: Sary Waite MD COMP: 06/30/24-1428 ENTERED: 06/30/24-1032 [facility] DR: ORDERED: Met Prof Fast, AST, ALT Test Result Flag Reference Sodium 142 135-145 mmol/L Potassium 3.8 3.3-5.1 mmol/L CL 108 96-108 mmol/L CO2 25 22-29 mmol/L Gap 13 12-20 BUN 16 9-16 mg/dL Creat 0.88 0.5-1.4 mg/dL EGFR > 60 NOTE: For -[place] individuals, multiply the result by 1.210. Chronic Kidney Disease: Estimated GFR < 60 mL/min/1.73m2 Severe Kidney Disease: Estimated GFR < 15 mL/min/1.73m2 FBS 162 H 60-99 mg/dL A fasting glucose of 126 mg/dl or greater on more than one occasion is considered diagnostic of diabetes. CA 9.8 8.4-10.2 mg/dL AST (GOT) 23 5-31 U/L ALT (GPT) 23 0-31 U/L Assessment and Plan Assessment & Plan (1) Diabetes mellitus with hyperglycemia, with long-term current use of insulin: Code(s): E11.65 - Type 2 diabetes mellitus with hyperglycemia; Z79.4 - terminal operations manager (current) use of insulin Qualifiers: Diabetes mellitus type: type 2 Qualified Code(s): E11.65 - Type 2 diabetes mellitus with hyperglycemia; Z79.4 - terminal operations manager (current) use of insulin Plan: Recent labs showed hemoglobin A1c at 7.2%, will continue on present treatment, but reinforced importance of following recommended diet, and staying active. Will recheck levels again in 3 months' time (2) Essential hypertension: Code(s): I10 - Essential (primary) hypertension Plan: Blood pressure at goal of less than 130/80. Continue with current medication. Reinforced importance of following a low sodium diet, getting regular exercise, and lowering stress levels. (3) Mixed dyslipidemia: Code(s): E78.2 - Mixed hyperlipidemia Plan: Fasting lipid panel ordered, will continue on atorvastatin 80 mg daily Orders: Orders Hemoglobin A1c 09/13/24 E11.65 - Type 2 diabetes mellitus with hyperglycemia, E78.2 - Mixed hyperlipidemia, I10 - Essential (primary) hypertension, I25.10 - Atherosclerotic heart disease of [place] coronary artery without angina pectoris, Z79.4 - terminal operations manager (current) use of insulin Lipid Panel 09/13/24 E11.65 - Type 2 diabetes mellitus with hyperglycemia, E78.2 - Mixed hyperlipidemia, I10 - Essential (primary) hypertension, I25.10 - Atherosclerotic heart disease of [place] coronary artery without angina pectoris, Z79.4 - jail (current) use of insulin Alanine Aminotransferase 09/13/24 E11.65 - Type 2 diabetes mellitus with hyperglycemia, E78.2 - Mixed hyperlipidemia, I10 - Essential (primary) hypertension, I25.10 - Atherosclerotic heart disease of [place] coronary artery without angina pectoris, Z79.4 - terminal operations manager (current) use of insulin Aspartate Amino Transferase 09/13/24 E11.65 - Type 2 diabetes mellitus with hyperglycemia, E78.2 - Mixed hyperlipidemia, I10 - Essential (primary) hypertension, I25.10 - Atherosclerotic heart disease of [place] coronary artery without angina pectoris, Z79.4 - jail (current) use of insulin Basic Metabolic Panel Fasting 09/13/24 E11.65 - Type 2 diabetes mellitus with hyperglycemia, E78.2 - Mixed hyperlipidemia, I10 - Essential (primary) hypertension, I25.10 - Atherosclerotic heart disease of [place] coronary artery without angina pectoris, Z79.4 - jail (current) use of insulin Vitamin D 25-OH Total 09/13/24 E11.65 - Type 2 diabetes mellitus with hyperglycemia, E78.2 - Mixed hyperlipidemia, I10 - Essential (primary) hypertension, I25.10 - Atherosclerotic heart disease of [place] coronary artery without angina pectoris, Z79.4 - jail (current) use of insulin Coding Level of Care Code Est Pt Level 4 (08551) Complex EM visit Add On G2211 Diagnoses Type 2 diabetes mellitus with hyperglycemia, with long-term current use of insulin E11.65; Z79.4 Diabetes mellitus type: type 2 Essential hypertension I10 Mixed dyslipidemia E78.2 Additional Codes BO-7 Assessment Billing - BO-7 Assessment Tool: BO-7 Assessment 74040 ([id number])
[2024-07-01 12:16] VITALS: BP 110/70; PULSE 64; O2SAT 97; BMI 32.1
== END 2024-07-01 14:49 | disposition home or self-care (01) ==
PROVIDERS: PCP Internal Medicine; Visit Provider Internal Medicine
DX: E11.65 Type 2 diabetes mellitus with hyperglycemia (principal); Z79.4 Long term (current) use of insulin; I10 Essential (primary) hypertension; E78.2 Mixed hyperlipidemia

== ENCOUNTER → 2024-07-01 11:53 | Outpatient (BNVA) | payer MEDICARE, SELFPAY | PROVIDERS: PCP Internal Medicine; Visit Provider Internal Medicine | DX: E11.65 Type 2 diabetes mellitus with hyperglycemia (principal); I10 Essential (primary) hypertension; E78.2 Mixed hyperlipidemia; I25.10 Atherosclerotic heart disease of native coronary artery without angina pectoris; Z79.4 Long term (current) use of insulin | CPT/HCPCS: 96127; 99212 ==

== ENCOUNTER 2024-07-04 19:36 | Emergency (ER) | payer MEDICARE, SELFPAY ==
--- NOTE | ~2024-07-04 | CT_ITS ---
EXAMINATION: CT ANGIOGRAM HEAD CT ANGIOGRAM NECK CLINICAL INFORMATION: Right-sided neck pain radiating to the head. COMPARISON: PET/CT from 08/14/2022. TECHNIQUE: Initial noncontrast fabric pattern grader imaging of the head and neck was performed. Noncontrast head CT was also performed. Test bolus sequences followed by intravenous administration 70 mL of Omnipaque 350. Helical imaging was performed in the axial plane from the aortic arch to the skull vertex. Delayed postcontrast imaging of the head was also performed. The data was processed at the mineral technologist's workstation for generation of MIP sequences. Angled MIPs and volume rendered reformatted images were also generated at an offline 3D workstation. Stenoses are assessed in accordance with NASCET criteria unless otherwise indicated. This CT examination was performed using dose optimization techniques as appropriate, variously including the following: *Automated exposure control. *Adjustment of mA and/or kV according to patient size (this includes techniques or standardized protocols for targeted exams where dose is matched to indication/reason for exam; i.e. extremities or head). *Use of iterative reconstruction technique. DLP: 2137 mGy-cm FINDINGS: CT Head: There is no evidence of acute intracranial hemorrhage or edematous territorial infarction. Wright-white matter differentiation is preserved. A few foci of hypoattenuation in the periventricular and deep white matter are consistent with mild microangiopathy. Proportional prominence of the ventricles and sulcal spaces without evidence of obstructive hydrocephalus. No abnormal mass effect or midline shift. No extra-axial fluid collections. No pathologic intra-axial enhancement or regional oligemia. No acute soft tissue or osseous abnormalities. Mild mucosal thickening of the paranasal sinuses. The mastoid air cells and middle ear cavities are clear. The patient is edentulous. Advanced degeneration of the left temporomandibular joint. CT Neck: The thyroid gland and remaining cervical soft tissues are within normal limits. Mild degenerative anterolisthesis of C3 on C4. Mild degenerative retrolisthesis of C4 on C5. Advanced degenerative disc disease at C4-C5. Mild to moderate degenerative disc disease at all additional levels. Facet and uncovertebral joint arthropathy leads to osseous encroachment on the neural foramina from C3-C5. CT Upper Chest: Changes of prior median sternotomy for CABG. Moderate paraseptal emphysema. Coronary artery calcifications: Present - advanced. Neck CTA: Aortic Arch: Normal contour and caliber with moderate calcific atherosclerotic disease. Classic 3 vessel branching pattern of the aortic arch. Great Vessel Origins: No significant stenosis of the branch origins. Right Common Carotid Artery: No focal stenosis or occlusion. Cervical Right Internal Carotid Artery: Calcific atherosclerotic disease of the carotid bulb and proximal internal carotid artery causing less than 50% stenosis. Left Common Carotid Artery: No focal stenosis or occlusion. Cervical Left Internal Carotid Artery: Calcific atherosclerotic disease of the carotid bulb and proximal internal carotid artery causing less than 50% stenosis. Cervical Right Vertebral Artery: Dominant. Atherosclerotic disease causes moderate stenosis of the origin. No additional focal stenosis or occlusion. Cervical Left Vertebral Artery: No focal stenosis or occlusion. Brain CTA: Intracranial Internal Carotid Arteries: Calcific atherosclerotic disease of the intracranial internal carotid arteries without occlusion or flow-limiting stenosis. Right Anterior Cerebral Artery: Normal A1 segment. Normal opacification of the distal DAVON segments. Left Anterior Cerebral Artery: The A1 segment is diminutive. Normal opacification of the distal DAVON segments. Anterior Communicating Artery: Normal. Right Middle Cerebral Artery: Normal M1 segment of the MCA without focal stenosis or occlusion. Normal arborization of the distal segments. Left Middle Cerebral Artery: Normal M1 segment of the MCA without focal stenosis or occlusion. Normal arborization of the distal segments. Right Vertebral Artery: Normal V4 segment. Normal opacification of the proximal segments of the posterior inferior cerebellar artery. Left Vertebral Artery: The V4 segment largely terminates as the posterior inferior cerebellar artery. Basilar Artery: Normal without focal stenosis or occlusion. Normal appearance of the proximal superior cerebellar arteries. Right Posterior Cerebral Artery: Normal P1 segment. Normal opacification of the distal EDGE PLUGGER segments. Left Posterior Cerebral Artery: Normal P1 segment. Normal opacification of the distal EDGE PLUGGER segments. Normal opacification of the superior sagittal, straight, transverse, and sigmoid sinuses. CT/CT angio head neck IMPRESSION: 1. No evidence of acute intracranial hemorrhage or edematous territorial infarction. Mild underlying microangiopathy and generalized cerebral volume loss. 2. CTA of the head and neck without proximal occlusion or flow-limiting stenosis. 3. Moderate multilevel degenerative spondyloarthropathy of the cervical spine. Electronically signed by: Martin Green DO 07/04/2024 11:03 PM EDT
[2024-07-04 19:55] VITALS: BP 123/61; PULSE 76; RESP 18; TEMP 36.6; O2SAT 98; BMI 31.2
--- NOTE | 2024-07-04 19:55 | ED.GENADULT ---
HPI - General Adult General Chief complaint: General Medical Stated complaint: lwr back head/neck pain Time Seen by Provider: 07/04/24 21:21 Source: patient and family Mode of arrival: ambulatory Limitations: no limitations History of Present Illness ED Provider: Dr. Norris HPI narrative: Patient is a 79 yo female with DM, AAA, CAD, metastic lung cancer in remission who presents with right neck pain radiating to the right shoulder. Patient presents with concern that she has cancer to the spine. Onset (ago): day(s) Related Data Home Medications ?Medication ?Instructions ?Recorded ?Confirmed cholecalciferol (vitamin D3) 50 50 mcg PO DAILY 10/26/20 03/06/24 mcg (2,000 unit) capsule verapamil 100 mg capsule 24hr 100 mg PO BEDTIME 10/26/20 03/06/[address],ext.release acetaminophen 500 mg tablet 500 mg PO BID 11/07/20 03/06/24 isosorbide mononitrate 30 mg 30 mg PO DAILY 10/02/21 03/06/24 tablet,extended release 24 hr apixaban 5 mg tablet (Eliquis) 1 tab PO Q12H 02/19/22 03/06/24 ferrous fumarate 325 mg (106 mg 325 mg PO Q2D 03/16/22 03/06/24 iron) tablet loperamide 2 mg capsule 2 mg PO TID PRN 03/30/24 sennosides 8.6 mg capsule (senna) 8.6 mg PO BEDTIME PRN 03/30/24 Previous Rx's ?Medication ?Instructions ?Recorded clotrimazole 2 % vaginal cream 1 appful vaginal BEDTIME PRN 10/31/21 VAGINAL ITCH #21 grams blood sugar diagnostic (OneTouch #100 ea 12/26/21 Ultra Test strips) blood-glucose meter (OneTouch #1 ea 12/26/21 Ultra2 Meter) Donut pillow #1 ea 08/07/22 cetirizine 10 mg capsule (Zyrtec) 10 mg PO DAILY #30 caps 08/22/22 lancets 33 gauge (OneTouch Delica #100 ea 09/26/22 Lancets) flash glucose scanning reader #1 ea 11/11/22 (FreeStyle [place] 2 Mcintyre) clotrimazole-betamethasone 1 1 appl topical BID 10 days #45 01/17/23 %-0.05 % topical cream grams pen needle, diabetic 29 gauge x #400 ea 04/01/23 1/2 (BD Ultra-Fine Original Pen Needle) ondansetron 4 mg disintegrating 4 mg PO Q8H PRN nausea and 11/25/23 tablet vomiting 30 days #30 tabs sertraline 100 mg tablet (Zoloft) 150 mg (1.5 x 100 mg) PO DAILY 3 02/10/24 months #135 tabs lorazepam 0.5 mg tablet 0.5 mg PO .qd PRN anxiety attack 02/18/24 #14 tabs trazodone 50 mg tablet 50 mg PO BEDTIME #90 tabs 03/03/24 flash glucose sensor (FreeStyle #6 ea 03/11/24 [place] 2 Sensor kit) azelastine 137 mcg (0.1 %) nasal 2 spray intranasal BID PRN 03/15/24 spray postnasal drip #90 mL [id number] 1 cap PO TID 30 days #90 caps 04/17/24 10,000-32,000-42,000 unit capsule,delayed rel (Zenpep) metoprolol succinate 50 mg 150 mg (3 x 50 mg) PO BEDTIME #270 04/17/24 tablet,extended release 24 hr tabs oxycodone 10 mg tablet 10 mg PO Q6-8H PRN Pain #90 tabs 04/20/24 lisinopril 2.5 mg tablet 2.5 mg PO DAILY #90 tabs 04/24/24 metformin 750 mg tablet,extended 750 mg PO BID #60 tabs 04/25/24 release 24 hr folic acid 1 mg tablet 1 mg PO DAILY 90 days #90 tabs 04/27/24 insulin glargine 100 unit/mL (3 10 unit (0.1 mL) subcut QPM #15 mL 05/24/24 mL) subcutaneous pen (Lantus Solostar U-100 Insulin) hyoscyamine sulfate 0.125 mg tablet 0.125 mg PO BID PRN for 06/18/24 indigestion #60 tabs atorvastatin 80 mg tablet 80 mg PO BEDTIME #100 tabs 06/22/24 omeprazole 40 mg capsule,delayed 40 mg PO DAILY 90 days #90 caps 06/22/24 release cyclobenzaprine 10 mg tablet 10 mg PO BID PRN muscle spasm #14 09/22/24 tabs meloxicam 7.5 mg tablet 7.5 mg PO DAILY #7 tabs 07/05/24 Allergies Allergy/AdvReac Type Severity Reaction Status Date / Time sulfamethoxazole Allergy Severe Rash Verified 07/04/24 19:56 [From Bactrim] adhesive tape [ADHESIVE TAPE] Allergy Intermediate BLISTERS Verified 07/04/24 19:56 clonidine Allergy makes pt Verified 07/04/24 19:56 hulusinate adhesive AdvReac Severe BLISTERS Verified 07/04/24 19:56 gabapentin AdvReac Severe hallucinati Verified 07/04/24 19:56 on hydromorphone [From Dilaudid] AdvReac Severe Hallucinati Verified 07/04/24 19:56 ons morphine AdvReac Severe hallucinati Verified 07/04/24 19:56 on glue AdvReac Severe BLISTERS Uncoded 07/01/24 12:50 Review of Systems Review of Systems: Yes all other systems are reviewed and are negative Neurologic: Denies Sensory deficit (Neuro) PMFSH Past Medical History Medical History Depression Diabetes mellitus with hyperglycemia, with long-term current use of insulin Swelling of knee joint, left Hx of sigmoidoscopy Metformin adverse reaction Adenocarcinoma of left lung (~2021) Aortic stenosis Atypical migraine Transient cerebral ischemia AVM (arteriovenous malformation) of colon Normocytic anemia Nonrheumatic mitral valve regurgitation Nonrheumatic aortic (valve) stenosis Obesity History of blood transfusion Barretts esophagus AAA (abdominal aortic aneurysm) (~2008) Bleeding hemorrhoids Anemia Arthritis On anticoagulant therapy (~10/2020) On beta [place] at home Pulmonary nodules Mixed dyslipidemia Vitamin B12 deficiency GIB (gastrointestinal bleeding) COPD (chronic obstructive pulmonary disease) Bilateral pulmonary embolism (~10/2020) Restless leg syndrome Irritable bowel syndrome with both constipation and diarrhea GERD without esophagitis CAD (coronary artery disease) Essential hypertension Surgical History History of lung biopsy (~2021) History of esophagogastroduodenoscopy (EGD) (~2020) History of hysterectomy History of colonoscopy (~2018) History of coronary artery bypass graft x 2 (~2017) History of total right knee replacement (TKR) (~2015) History of bilateral breast reduction surgery (~2010) S/P excision of lipoma (~2017) History of heart artery stent (~2007) Family History Family History Father HTN (hypertension) Myocardial infarction Hyperlipidemia Abdominal aneurysm Mother HTN (hypertension) Myocardial infarction Hyperlipidemia Brother Alzheimer's disease Substance abuse Sister Rheumatoid arthritis Brother Rheumatoid arthritis Maternal Aunt Diabetes mellitus Lung cancer Maternal Uncle Diabetes mellitus Son No problems noted. Daughter No problems noted. Social History Social History Household Members: Spouse Housing: House Do you presently have visiting nurse or other home services: No Alcohol intake: current Alcohol intake frequency: holidays/special occasions only Patient Tobacco Use Status: Former Tobacco user Tobacco use type: Cigarette Cigarette Packs Per Day: 2 Years Smoked: 30 Smoked in Last 30 Days: No e-Cigarette/Vaping Use: Never Used Second Hand Smoke Exposure: No Use of substances other than those prescribed or required for medical reasons: No Substance Use Type: Marijuana Advance Directives: Yes Advance Directives on File: Yes Advance Directives Date on File: 04/27/22 Do you have a plan to hurt others: No Plan service: No Current occupational status: retired 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 Cognitive needs: No Hearing needs: No Vision needs: Yes Physical Exam ED Vital Signs: Vital Signs - 24 hr 07/04/24 19:55 Temperature 97.9 F Pulse Rate 76 Respiratory Rate 18 Blood Pressure 123/61 Pulse Oximetry 98 Oxygen Delivery Method Room Air BMI result Body Mass Index 31.2 Const Other: frail elderly holding the right bereket of her neck Nutritional Appearance: average body habitus Orientation/consciousness: oriented to person and patient oriented x3 Limitations: no limitations HENMT Head: Yes normal to inspection Ears: external ears normal General nose exam: Normal external nose present Mouth: Normal oral and palatal mucosa present and oropharynx normal Throat: Yes posterior oropharynx normal Eyes General: appearance normal, both eyes and all related structures Neck Other: right trapezius tenderness Chest Chest palpation & inspection: normal inspection of the chest Resp Auscultation: clear to auscultation bilaterally Cardio Jugular venous distension: no JVD Rate: regular rate Rhythm: regular rhythm Heart sounds: S1 normal heart sound present and S2 normal heart sound present GI Inspection: Yes normal to inspection Palpation (GI): Soft to palpation, nontender and No hepatosplenomegaly present Auscultation: normal bowel sounds General: Yes no CVA tenderness Back/Spine/Pelvis Back: no CVA tenderness Skin General skin exam: no rashes or lesions noted Neuro General: oriented to person and patient oriented x3 Cranial nerves: Yes CN's II-XII intact bilaterally Motor exam (neuro): 5/5 motor strength present throughout Sensory Exam: No Sensory deficit (Neuro) Extrem General: Yes normal to inspection Psych Appearance: grossly normal Course Course Course Narrative: This is a rapid medical exam performed by Morgan Coto NP: Additional HPI, ROS, PE not included below will be deferred to primary provider. Patient is a 79-year-old female history of lung CA with mets to bone currently in remission, sees Dr. Perdue, AAA, DM, CAD, HTN, dyslipidemia, aortic stenosis presenting with 2-3 days of severe right sided neck pain radiating to head and shoulder, rates at 10, appears very uncomfortable in triage. Plan: EKG, labs, CTA head and neck Reevaluation(s) Reevaluation #1: Labs, EKG, and CT normal, no evidence of metastatic disease will dc home Time: 00:38 Medications Administered Discontinued Medications Generic Name Dose Route Start Last Admin Trade Name Freq PRN Reason Stop Dose Admin Cyclobenzaprine HCl 10 mg 07/04/24 22:00 07/04/24 22:19 Cyclobenzaprine Hcl 10 Mg Tablet PO 07/04/24 22:01 10 mg ONCE ONE Administration Iohexol 100 ml 07/04/24 21:29 07/04/24 21:29 Iohexol 350 Mg/Ml 100 Ml Infus..Btl IV 07/04/24 21:30 70 ml ONCE ONE Administration Ketorolac Tromethamine 30 mg 07/04/24 21:52 07/04/24 22:19 Ketorolac Tromethamine 30 Mg/Ml Vial IVPUSH 07/04/24 21:53 30 mg ONCE ONE Administration Medical Decision Making Differential Diagnosis Differential Diagnoses: The differential diagnosis associated with the presentation includes (metastatic cancer, trapezius spasm, radicular pain, torticollis) Admission/Observation Consideration of admission/observation: Escalation of care including admission/observation considered (upon arrival patient considered for admission) Lab Data 07/04/24 20:13 07/04/24 20:13 Labs: Lab Results 07/04/24 Range/Units 20:13 WBC 8.0 (4.8-10.8) X10*3/uL RBC 3.43 L (4.20-5.50) X10*6/uL Hgb 11.1 L (12.0-16.0) g/dl Hct 32.7 L (37.0-47.0) % MCV 95.3 (80.0-98.0) fL MCH 32.4 (27.0-33.0) pg MCHC 33.9 (31.0-35.0) g/dl RDW 12.3 (11.0-16.0) % Plt Count 209 (160-400) X10*3/uL MPV 10.1 (9.4-12.3) fL Immature Gran % (Auto) 0.2 (0.0-0.4) % Neut % (Auto) 69.5 (45-73) % Lymph % (Auto) 18.2 L (20-40) % [place] % (Auto) 11.1 H (2-11) % Eos % (Auto) 0.9 (0-4) % Baso % (Auto) 0.1 (0-2) % Lymph # (Auto) 1.5 (1.2-4.9) X10*3/uL [place] # (Auto) 0.9 (0.1-1.2) X10*3/uL Eos # (Auto) 0.1 (0.0-0.4) X10*3/uL Baso # (Auto) 0.0 (0.0-0.2) X10*3/uL Abs Immat Gran (auto) 0.02 (0.00-0.03) X10*3/uL Absolute Neuts (auto) 5.6 (2.0-8.3) x10*3/uL Absolute Nucleated RBC 0.000 (0.0-0.012) X10*3/uL Nucleated RBC % (auto) 0.0 (0.0-0.2) /100WBC PT 15.2 H (10.9-12.4) SEC INR 1.3 H (0.9-1.1) Sodium 140 (135-145) mmol/L Potassium 3.7 (3.3-5.1) mmol/L Chloride 105 (96-108) mmol/L Carbon Dioxide 23 (22-29) mmol/L Anion Gap 16 (12-20) BUN 18 H (9-16) mg/dL Creatinine 0.98 (0.5-1.4) mg/dL Estim Creat Clear Calc 42.7 Estimated GFR 55 Random Glucose 225 H (60-115) mg/dL Calcium 9.4 (8.4-10.2) mg/dL Total Bilirubin 0.5 (0.0-1.0) mg/dL AST 17 (5-31) U/L ALT 18 (0-31) U/L Alkaline Phosphatase 52 (39-117) U/L Troponin I High Sens < 2.7 (<3.5-17.0) ng/L Total Protein 7.3 (6.5-8.0) g/dL Albumin 4.2 (3.5-5.0) g/dL Independent Interpretation I performed an independent interpretation of an: EKG (sinus 70, no st or twave changes) and CT Scan (brain: no masses or bleed cervical spine: djd no metastatic disease) Radiology Impression Discussion of test interpretation with radiology: I have reviewed the radiologist's reading. Independent Historian Clinical information obtained from an independent historian. History obtained from or confirmed by: Spouse External Record Review External record reviewed: Outpatient record Prescription Management I considered prescription management with: Antibiotic (no bacterial infection seen) Chronic Conditions Patient?s care impacted by: Cancer Discharge Plan Discharge Clinical Impression: Radicular pain in right arm, Spasm of right trapezius muscle Patient Disposition: Home, Self-Care Instructions: Paresthesia (ED), Cervical Radiculopathy (ED), Muscle Spasm (ED) Prescriptions: New meloxicam 7.5 mg tablet 7.5 mg PO DAILY Qty: 7 0RF cyclobenzaprine 10 mg tablet 10 mg PO BID PRN (Reason: muscle spasm) Qty: 14 0RF No Action clotrimazole 2 % cream 1 appful vaginal BEDTIME PRN (Reason: VAGINAL ITCH) Qty: 21 1RF (DME) blood-glucose meter [OneTouch Ultra2 Meter] Misc See Rx Instructions .Route Qty: 1 0RF Rx Instructions: As directed to test blood sugar once a day (DME) OneTouch Ultra Test Strip See Rx Instructions .Route Qty: 100 3RF Rx Instructions: test blood sugar once daily (DME) lancets [OneTouch Delica Lancets] 33 gauge misc See Rx Instructions .Route Qty: 100 3RF Rx Instructions: test blood sugar once a day (DME) FreeStyle [place] 2 Mcintyre Misc See Rx Instructions .Route Qty: 1 0RF Rx Instructions: As directed clotrimazole-betamethasone 1-0.05 % cream 1 appl topical BID 10 Days Qty: 45 0RF (DME) pen needle, diabetic [BD Ultra-Fine Orig Pen Needle] 29 gauge x 1/2 needle See Rx Instructions .Route Qty: 400 1RF Rx Instructions: Use to inject insulin 4 times per day ondansetron 4 mg tablet,disintegrating 4 mg PO Q8H PRN (Reason: nausea and vomiting) 30 Days Qty: 30 1RF sertraline [Zoloft] 100 mg tablet 150 mg PO DAILY 90 Days Qty: 135 2RF lorazepam 0.5 mg tablet 0.5 mg PO .qd PRN (Reason: anxiety attack) Qty: 14 0RF trazodone 50 mg tablet 50 mg PO BEDTIME Qty: 90 3RF (DME) FreeStyle [place] 2 Sensor Kit See Rx Instructions .Route Qty: 6 1RF Rx Instructions: check glucose twice a day as directed azelastine 137 mcg (0.1 %) aerosol,spray 2 spray intranasal BID PRN (Reason: postnasal drip) Qty: 90 0RF Rx Instructions: administer into each nostril metoprolol succinate 50 mg tablet extended release 24 hr 150 mg PO BEDTIME Qty: 270 1RF Zenpep 10,000-32,000 -42,000 unit capsule,delayed release(DR/EC) 1 cap PO TID 30 Days Qty: 90 3RF lisinopril 2.5 mg tablet 2.5 mg PO DAILY Qty: 90 2RF metformin 750 mg tablet extended release 24 hr 750 mg PO BID Qty: 60 5RF insulin glargine [Lantus Solostar U-100 Insulin] 100 unit/mL (3 mL) insulin pen 10 unit subcut QPM Qty: 15 1RF hyoscyamine sulfate 0.125 mg tablet 0.125 mg PO BID PRN (Reason: for indigestion) Qty: 60 2RF atorvastatin 80 mg tablet 80 mg PO BEDTIME Qty: 100 2RF omeprazole 40 mg capsule,delayed release(DR/EC) 40 mg PO DAILY 90 Days Qty: 90 3RF Eliquis 5 mg tablet 1 tab PO Q12H Zyrtec 10 mg Capsule 10 mg PO DAILY Qty: 30 3RF oxycodone 10 mg Tablet 10 mg PO Q6-8H PRN (Reason: Pain) Qty: 90 0RF Rx Instructions: Partial Fill upon patient request. folic acid 1 mg tablet 1 mg PO DAILY 90 Days Qty: 90 2RF verapamil 100 mg capsule, [address] 100 mg PO BEDTIME cholecalciferol (vitamin D3) 50 mcg (2,000 unit) capsule 50 mcg PO DAILY ferrous fumarate 325 mg (106 mg iron) tablet 325 mg PO Q2D loperamide 2 mg capsule 2 mg PO TID PRN senna 8.6 mg capsule 8.6 mg PO BEDTIME PRN acetaminophen 500 mg tablet 500 mg PO BID Rx Instructions: Patient takes scheduled BID (in pill box) (DME) Paty Borja See Rx Instructions .Route Qty: 1 0RF Rx Instructions: As directed isosorbide mononitrate 30 mg tablet extended release 24 hr 30 mg PO DAILY Referrals: Sary Waite MD [Primary Care Provider] - 3 days Print Language: Swiss
--- NOTE | 2024-07-04 19:58 | ECG_ITS ---
Test Reason : NCK PAIN Blood Pressure : / mmHG Vent. Rate : 070 BPM Atrial Rate : 070 BPM P-R Int : 154 ms QRS Dur : 088 ms QT Int : 426 ms P-R-T Axes : 030 -19 039 degrees QTc Int : 460 ms Normal sinus rhythm Normal ECG When compared with ECG of 12-JAN-2023 14:11, No significant change was found Referred By: Em Coto Electronically Signed By:BLANCA HARDWICK
[2024-07-04 20:21] LABS: MANUAL DIFF FLAG NO
[2024-07-04 20:28] LABS: Basophils Percent Auto 0.1 % (0-2); Eosinophils Absolute Auto 0.1 X10*3/uL (0.0-0.4); Eosinophils Percent Auto 0.9 % (0-4); Hematocrit 32.7 % (37.0-47.0); Hemoglobin 11.1 g/dl (12.0-16.0); Imm Gran Abs Auto 0.02 X10*3/uL (0.00-0.03); Imm Gran Pct Auto 0.2 % (0.0-0.4); Lymphocytes Absolute Auto 1.5 X10*3/uL (1.2-4.9); Lymphocytes Percent Auto 18.2 % (20-40); Mean Corpuscular HGB Conc 33.9 g/dl (31.0-35.0); Mean Corpuscular Hemoglobin 32.4 pg (27.0-33.0); Mean Corpuscular Volume 95.3 fL (80.0-98.0); Mean Platelet Volume 10.1 fL (9.4-12.3); Monocytes Absolute Auto 0.9 X10*3/uL (0.1-1.2); Monocytes Percent Auto 11.1 % (2-11); Neutrophils Absolute Auto 5.6 x10*3/uL (2.0-8.3); Neutrophils Percent Auto 69.5 % (45-73); Platelet Count 209 X10*3/uL (160-400); Red Blood Count 3.43 X10*6/uL (4.20-5.50); Red Cell Distribution Width 12.3 % (11.0-16.0)
[2024-07-04 20:40] LABS: Alanine Aminotransferase 18 U/L (0-31); Albumin Level 4.2 g/dL (3.5-5.0); Alkaline Phosphatase 52 U/L (39-117); Anion Gap 16 (12-20); Aspartate Amino Transferase 17 U/L (5-31); Bilirubin Total 0.5 mg/dL (0.0-1.0); Blood Urea Nitrogen 18 mg/dL (9-16); Calcium 9.4 mg/dL (8.4-10.2); Carbon Dioxide 23 mmol/L (22-29); Chloride 105 mmol/L (96-108); Creatinine Clr Calc Pharmacy 42.7; Estimated Glomerular Filt Rate 55; Glucose Random 225 mg/dL (60-115); Potassium 3.7 mmol/L (3.3-5.1); Sodium 140 mmol/L (135-145); Total Protein 7.3 g/dL (6.5-8.0)
[2024-07-04 20:48] LABS: Troponin-I High Sensitivity < 2.7 ng/L (<3.5-17.0)
[2024-07-04 21:11] LABS: INTERNATIONAL NORM RATIO 1.3 (0.9-1.1); Prothrombin Time 15.2 SEC (10.9-12.4)
[2024-07-04] MEDS: iohexoL 350 MG/ML 100 ML INFUS..BTL IV (21:29)
[2024-07-04] MEDS: Cyclobenzaprine HCl 10 MG TABLET PO (22:19)
[2024-07-04] MEDS: Ketorolac Tromethamine 30 MG/ML VIAL IVPUSH (22:19)
[2024-07-05 00:45] VITALS: BP 113/59; PULSE 71; RESP 18; TEMP 36.7; O2SAT 96
[2024-07-05 06:14] VITALS: BP 113/59; PULSE 71; RESP 18; TEMP 36.7; O2SAT 96
== END 2024-07-05 00:50 | disposition home or self-care (01) ==
PROVIDERS: Registered Nurse Emergency; Emergency Provider Emergency Medicine; PCP Internal Medicine
DX: M62.830 Muscle spasm of back (principal); M54.10 Radiculopathy, site unspecified; M54.2 Cervicalgia; M25.511 Pain in right shoulder; E11.9 Type 2 diabetes mellitus without complications; I71.40 Abdominal aortic aneurysm, without rupture, unspecified
CPT/HCPCS: 36415; 70496; 70498; 80053; 84484; 85025; 85610; 93005; 96374; 99284; 99285; J1885; Q9967

== ENCOUNTER 2024-09-04 11:50 | Outpatient (REF) | payer MEDICARE, SELFPAY ==
--- NOTE | ~2024-09-04 | XR_ITS ---
EXAMINATION: XR CHEST XR RIBS LEFT CLINICAL INFORMATION: Rib pain, history of lung cancer, ?recurrence Left rib pain after trauma. COMPARISON: Chest x-ray 08/16/2023, 07/02/2022, Rib x-rays 06/26/2022. TECHNIQUE: 2 views of the chest were obtained. 3 views left ribs were obtained. FINDINGS: The cardiac, hilar, and mediastinal contours demonstrate there has been prior median sternotomy. Heart size normal. Coronary calcifications are noted. Calcification of the mitral annulus. Aorta is calcified and uncoiled. Lungs demonstrate a nodular opacity in the left upper lung, and a subtle nodular opacity in the right lower lung on the PA view, without definite correlate on the lateral projection. This may be artifact although nodules cannot be excluded. Recommend CT. No pleural effusion or pneumothorax. Lungs otherwise clear. There is underlying COPD. Increased AP diameter of the thorax. Mild apical pleural thickening again noted, consistent with scarring. Mildly exaggerated thoracic kyphosis with central degenerative changes. Degenerative changes left shoulder joint. Soft tissues demonstrate extensive aortic calcification, with a focal abdominal aortic aneurysm measuring 3.6 cm in AP diameter, unchanged. Median sternotomy wires without migration. Rib views demonstrate subtle minimally displaced acute fracture of the most anterior left seventh rib. XR/XR ribs LT 2V IMPRESSION: 1. Acute minimally displaced anterior left seventh rib fracture. No effusion or pneumothorax. 2. Lungs demonstrate hyperaeration with nodular opacities seen left upper lung, right lower lung, without definite correlate seen on the lateral projection. This could be artifact although underlying lung nodules are not excluded. Recommend CT. 3. Status post CABG. 4. Abdominal aortic aneurysm measuring 3.6 cm AP diameter, unchanged. 5. Ancillary findings as discussed. Electronically signed by: Barry Helton MD 09/16/2024 08:49 AM EST
--- NOTE | ~2024-09-04 | XR_ITS ---
EXAMINATION: XR CHEST XR RIBS LEFT CLINICAL INFORMATION: Rib pain, history of lung cancer, ?recurrence Left rib pain after trauma. COMPARISON: Chest x-ray 08/16/2023, 07/02/2022, Rib x-rays 06/26/2022. TECHNIQUE: 2 views of the chest were obtained. 3 views left ribs were obtained. FINDINGS: The cardiac, hilar, and mediastinal contours demonstrate there has been prior median sternotomy. Heart size normal. Coronary calcifications are noted. Calcification of the mitral annulus. Aorta is calcified and uncoiled. Lungs demonstrate a nodular opacity in the left upper lung, and a subtle nodular opacity in the right lower lung on the PA view, without definite correlate on the lateral projection. This may be artifact although nodules cannot be excluded. Recommend CT. No pleural effusion or pneumothorax. Lungs otherwise clear. There is underlying COPD. Increased AP diameter of the thorax. Mild apical pleural thickening again noted, consistent with scarring. Mildly exaggerated thoracic kyphosis with central degenerative changes. Degenerative changes left shoulder joint. Soft tissues demonstrate extensive aortic calcification, with a focal abdominal aortic aneurysm measuring 3.6 cm in AP diameter, unchanged. Median sternotomy wires without migration. Rib views demonstrate subtle minimally displaced acute fracture of the most anterior left seventh rib. XR/XR chest 2V IMPRESSION: 1. Acute minimally displaced anterior left seventh rib fracture. No effusion or pneumothorax. 2. Lungs demonstrate hyperaeration with nodular opacities seen left upper lung, right lower lung, without definite correlate seen on the lateral projection. This could be artifact although underlying lung nodules are not excluded. Recommend CT. 3. Status post CABG. 4. Abdominal aortic aneurysm measuring 3.6 cm AP diameter, unchanged. 5. Ancillary findings as discussed. Electronically signed by: Barry Helton MD 09/16/2024 08:49 AM EST
== END 2024-09-04 11:51 | disposition home or self-care (01) ==
LOC: HO.XRAY 11:50
PROVIDERS: PCP Internal Medicine; Visit Provider Internal Medicine
DX: S29.9XXA Unspecified injury of thorax, initial encounter (principal); Z85.118 Personal history of other malignant neoplasm of bronchus and lung
CPT/HCPCS: 71046; 71100

== ENCOUNTER → 2024-09-04 12:04 | Outpatient (BNV) | payer MEDICARE, SELFPAY | PROVIDERS: PCP Internal Medicine; Visit Provider Radiology Diagnostic Radiology | DX: S29.9XXA Unspecified injury of thorax, initial encounter (principal); Z85.118 Personal history of other malignant neoplasm of bronchus and lung | CPT/HCPCS: 71046; 71100 ==

== ENCOUNTER 2024-09-28 07:18 | Outpatient (REF) | payer MEDICARE, SELFPAY ==
[2024-09-28 10:47] LABS: Alanine Aminotransferase 19 U/L (0-31); Anion Gap 14 (12-20); Aspartate Amino Transferase 24 U/L (5-31); Blood Urea Nitrogen 17 mg/dL (9-16); Calcium 9.2 mg/dL (8.4-10.2); Carbon Dioxide 28 mmol/L (22-29); Chloride 101 mmol/L (96-108); Cholesterol 154 mg/dL (<200); Estimated Glomerular Filt Rate 58; Glucose Fasting 207 mg/dL (60-99); HDL Cholesterol 51 mg/dL (>40); LDL Cholesterol Calculated 67 mg/dL (<100); Sodium 139 mmol/L (135-145); Triglycerides 182 mg/dL (<150)
[2024-09-28 10:50] LABS: Vitamin D 25-OH Total 56.8 ng/mL (>30)
[2024-09-28 11:34] LABS: Estimated Average Glucose 206 mg/dL; Hemoglobin A1C 207.4157 umol/L; Hemoglobin A1c % 8.8 % (<6.0); Total Hemoglobin (HGBA1C) 2842.1624 umol/L
== END 2024-09-28 07:19 | disposition home or self-care (01) ==
LOC: HO.HMGCLDS 07:18
PROVIDERS: PCP Internal Medicine; Visit Provider Internal Medicine
DX: E11.65 Type 2 diabetes mellitus with hyperglycemia (principal); Z79.4 Long term (current) use of insulin; I25.10 Atherosclerotic heart disease of native coronary artery without angina pectoris; I10 Essential (primary) hypertension; E78.2 Mixed hyperlipidemia
CPT/HCPCS: 36415; 80048; 80061; 82306; 83036; 84450; 84460

== ENCOUNTER → 2024-10-01 11:25 | Outpatient (BNVA) | payer MEDICARE, SELFPAY | PROVIDERS: PCP Internal Medicine; Visit Provider Internal Medicine | DX: E11.65 Type 2 diabetes mellitus with hyperglycemia (principal); I10 Essential (primary) hypertension; E78.2 Mixed hyperlipidemia; F33.1 Major depressive disorder, recurrent, moderate; Z79.4 Long term (current) use of insulin | CPT/HCPCS: 99212 ==

== ENCOUNTER → 2024-10-01 11:25 | Outpatient (AMB) | payer MEDICARE, SELFPAY ==
[2024-10-01 11:29] VITALS: BP 134/70; PULSE 84; O2SAT 96; BMI 32.2
--- NOTE | 2024-10-01 11:29 | MHC.PC.OV ---
Vital Signs 10/01/24 11:29 Height 5 ft Weight 165 lb BMI 32.2 BP 134/70 Blood Pressure Location Rt brachial Position Sitting Pulse 84 Pulse Source Pulse Oximeter Pulse Oximetry (%) 96 Oxygen Delivery Method Room Air Intake Visit Reasons: dm,lipids, htn Intake Note: Pt is here today for her DM, lipids and HTN Allergies sulfamethoxazole [From Bactrim] Allergy (Severe, Verified 10/01/24 11:52) Rash adhesive tape [ADHESIVE TAPE] Allergy (Intermediate, Verified 10/01/24 11:52) BLISTERS clonidine Allergy (Verified 10/01/24 11:52) makes pt hulusinate adhesive Adverse Reaction (Severe, Verified 10/01/24 11:52) BLISTERS gabapentin Adverse Reaction (Severe, Verified 10/01/24 11:52) hallucination hydromorphone [From Dilaudid] Adverse Reaction (Severe, Verified 10/01/24 11:52) Hallucinations morphine Adverse Reaction (Severe, Verified 10/01/24 11:52) hallucination glue Adverse Reaction (Severe, Uncoded 10/01/24 11:52) BLISTERS Medication List - Last Reconciled 10/01/24 by Sary Waite MD acetaminophen 500 mg PO BID apixaban (Eliquis) 1 tab PO Q12H atorvastatin 80 mg PO BEDTIME azelastine 2 sprays intranasal BID PRN blood sugar diagnostic ([facility] Venturesuch Ultra Test strips) test blood sugar once daily blood-glucose meter (Plynked Ultra2 Meter) As directed to test blood sugar once a day cetirizine (Zyrtec) 10 mg PO DAILY cholecalciferol (vitamin D3) 50 mcg PO DAILY clotrimazole 2% 1 appful vaginal BEDTIME PRN clotrimazole-betamethasone 1-0.05 % 1 appl topical BID 10 days Donut pillow As directed ferrous fumarate 325 mg PO Q2D flash glucose scanning reader (FreeStyle [place] 2 Kirby) As directed flash glucose sensor (FreeStyle [place] 2 Sensor kit) check glucose twice a day as directed folic acid 1 mg PO DAILY 90 days hyoscyamine sulfate 0.125 mg PO BID PRN isosorbide mononitrate ER 30 mg PO DAILY lancets (COSMIC COLORTouch Delica Lancets) test blood sugar once a day Lantus Solostar U-100 Insulin (insulin glargine) 10 units (0.1 mL) subcut QAM NS xrmoko-wllylowb-ehdfxud 10,000-32,000 -42,000 unit (Zenpep) 1 cap PO TID 30 days lisinopril 2.5 mg PO DAILY loperamide 2 mg PO TID PRN lorazepam 0.5 mg PO .qd PRN meloxicam 7.5 mg PO DAILY metformin ER 750 mg PO BID metoprolol succinate ER 100 mg PO BEDTIME omeprazole 40 mg PO DAILY 90 days ondansetron 4 mg PO Q8H PRN 30 days oxycodone 10 mg PO Q6-8H PRN pen needle, diabetic (BD Ultra-Fine Original Pen Needle) Use to inject insulin 4 times per day pramipexole 0.25 mg PO DAILY sertraline (Zoloft) 150 mg (1.5 x 100 mg) PO DAILY 3 months trazodone 50 mg PO BEDTIME verapamil ER 100 mg PO BEDTIME Tobacco use date assessed: 10/01/24 Fall risk assessment: No Falls in past year Last assessed Fall Risk: 10/01/24 Dental Screening Dental Screen Date: 10/01/24 Did you have a dental visit in the last 12 months?: No Did you have a dental problem in the last 6 months where you did not have access to dental care?: No Was dental information given to patient?: Patient declined HPI dm,lipids, htn HPI Details - The patient is a 79-year-old female presenting for a follow up on her hypertension, diabetes, and cholesterol management. - History of basal cell carcinoma on tip of nose, status post excision; current report from [facility] not seen. - Sustained a left anterior rib fracture while leaning into a washing machine; diagnosed as minimally displaced anterior left seventh rib, confirmed by x-ray. Patient states she has been applying ice packs to affected area in left anterior chest which affords only temporary relief.. Takes acetaminophen 500 mg twice a day which affords only temporary relief -patient states that her blood sugar has been all over the place sometimes running in the 300s in the la afternoon and going down to up to 60 mg/dL in the early mornings. Latest hemoglobin A1c is at 8.8%. Has not been able to exercise for the last month due to pain in her left rib fracture. Has been taking her metformin ER 750 mg 1 tablet twice a day with meals and Lantus 10 units at bedtime. States that she is under lot of stress worrying about her 2 adult children. Patient states she can not stop worrying about every small thing. -currently takes sertraline 150 mg once a day and trazodone at night to help her sleep. Takes lorazepam as needed for acute anxiety attacks -blood pressure stable and controlled on present treatment. Denies any headache, no chest pain, no shortness of breath reported.. -latest fasting lipids showed results within normal limit [facility] Medical History Depression Diabetes mellitus with hyperglycemia, with long-term current use of insulin Swelling of knee joint, left Hx of sigmoidoscopy Metformin adverse reaction Adenocarcinoma of left lung (~2021) Aortic stenosis Atypical migraine Transient cerebral ischemia AVM (arteriovenous malformation) of colon Normocytic anemia Nonrheumatic mitral valve regurgitation Nonrheumatic aortic (valve) stenosis Obesity History of blood transfusion Barretts esophagus AAA (abdominal aortic aneurysm) (~2008) Bleeding hemorrhoids Anemia Arthritis On anticoagulant therapy (~10/2020) On beta [place] at home Pulmonary nodules Mixed dyslipidemia Vitamin B12 deficiency GIB (gastrointestinal bleeding) COPD (chronic obstructive pulmonary disease) Bilateral pulmonary embolism (~10/2020) Restless leg syndrome Irritable bowel syndrome with both constipation and diarrhea GERD without esophagitis CAD (coronary artery disease) Essential hypertension Surgical History History of lung biopsy (~2021) History of esophagogastroduodenoscopy (EGD) (~2020) History of hysterectomy History of colonoscopy (~2018) History of coronary artery bypass graft x 2 (~2017) History of total right knee replacement (TKR) (~2015) History of bilateral breast reduction surgery (~2010) S/P excision of lipoma (~2017) History of heart artery stent (~2007) Family History Father HTN (hypertension) Myocardial infarction Hyperlipidemia Abdominal aneurysm Mother HTN (hypertension) Myocardial infarction Hyperlipidemia Brother Alzheimer's disease Substance abuse Sister Rheumatoid arthritis Brother Rheumatoid arthritis Maternal Aunt Diabetes mellitus Lung cancer Maternal Uncle Diabetes mellitus Son No problems noted. Daughter No problems noted. 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/ [employer] Cognitive needs: No Hearing needs: No Vision needs: Yes Questionnaire Thrive Questionnaire Date Thrive assessed: 01/03/24 I am a: Patient What is your living situation today?: I have a steady place to live Within the past 12 months, did the food you bought not last and you didn't have the money to get more?: Never true Within the past 12 months, did you worry whether your food would run out before you got money to buy more?: Never true Do you have trouble paying for medicines?: No Do you have trouble getting transportation to medical appointments?: No Do you have trouble paying your heating and electricity bill?: No Do you have trouble taking care of your child, family member or friend?: No Do you have trouble with day-to-day activities such as bathing, preparing meals, shopping, managing finances, etc.?: No Are you currently unemployed and looking for a job?: I choose not to answer this question Are you interested in more education?: No Please select the resources that you would like help with: None Currently or been in a relationship where the following occur: No concerns reported THRIVE Score: 0 BO-7 AMB Questionnaire BO-7 Date BO - 7 assessed: 03/30/24 Source: Developed by Drs. Alexey Arreaga, Yokasta Paulino, Pieter Oro and colleagues, with an educational jose j from [employer]. Review of Systems Const Denies fever(s), Denies frequent falls and Denies headache(s) ENT Denies dysphagia, Denies dizziness and Denies headache(s) Card Denies syncope, Denies rapid heart rate, Denies irregular heart rhythm, Denies lightheadedness and Denies dyspnea Resp Denies cough, Denies dyspnea and Denies wheezing GI Denies abdominal pain, Denies melena, Denies hematochezia, Denies change in bowel habits, Denies dysphagia and Denies vomiting Musc Denies arthralgias, Denies joint swelling, Denies numbness and Reports stiffness Neuro Denies dizziness, Denies syncope, Denies frequent falls, Denies headache(s) and Denies numbness Psych Reports no additional complaints Endo Denies polyphagia Lele/Lymph Reports easy bruising Aller/Immun Denies wheezing Physical exam (Primary Care) Vital Signs: Last Vital Signs Pulse 84 10/01/24 11:29 BP 134/70 10/01/24 11:29 Pulse Ox 96 10/01/24 11:29 Oxygen Delivery Method Room Air 10/01/24 11:29 BMI result Body Mass Index 32.2 Tobacco/Smoking Status: Tobacco use Status Tobacco use date assessed 10/01/24 10/01/24 11:33 Patient Tobacco Use Status Former Tobacco user 10/01/24 11:33 Tobacco use type Cigarette 10/01/24 11:33 e-Cigarette/Vaping Use Never Used 10/01/24 11:33 Thrive Assessment: Date of Thrive Assessment Date Thrive assessed 01/03/24 10/01/24 11:33 Currently or been in a relationship where the following occur: No concerns reported Const Other: Alert oriented x3, no acute cardiorespiratory distress, ambulatory with normal gait Orientation/consciousness: patient oriented x3 HENLA Mouth: Normal oral and palatal mucosa present and moist mucous membranes Eyes General: appearance normal, both eyes and all related structures Neck Other: Supple, no lymphadenopathy, thyroid gland nonpalpable Neck: Yes no meningeal signs Chest Chest palpation & inspection: normal inspection of the chest and localized rib tenderness with anteroposterior compression ( left anterior 7th rib) Resp Effort & Inspection: normal respiratory effort and able to speak in complete sentences Auscultation: clear to auscultation bilaterally Cardio Other: S1-S2 present regular rate and rhythm GI Palpation (GI): Soft to palpation, nontender, no guarding and no masses Auscultation: normal bowel sounds Skin Other: Positive Band-Aid noted on tip of nose where she had her basal cell CA removed recently done at [facility] Neuro General: patient oriented x3, gait normal, tone normal, moves all extremities, Normal light touch and pain sensation, no meningeal signs, no focal motor deficits and CN's II-XI intact bilaterally Extrem General: Yes full ROM, Yes no calf tenderness and Yes normal gait Psych Appearance: grossly normal and well kempt Mental Status: mental status grossly normal Speech and movement: Normal speech and movement present Affect: normal affect Attitude: cooperative Thought process: Normal thought process present Results Reviewed Results Reviewed: Laboratory Tests 03/04/24 09/28/24 09:48 07:22 Estimat Average Glucose 206 Hemoglobin A1c % 8.8 H Urine Creatinine 104.42 Urine Microalbumin 14.0 Microalb/Creat Ratio 13.4 Name: Brittany Onofre Age/Sex: 79/F : 1945 Unit#: [id number] Attend Dr: Sary Waite MD Re09/28/24 Status: DEP REF Location: [facility] Disch: SPEC : [id number] KIKI: 09/28/24 STATUS: COMP REQ : [id number] RECD: 09/28/24-[address]: Sary Waite MD COMP: 09/28/24 ENTERED: 09/28/[address]: ORDERED: Met Prof Fast, AST, ALT, Lipid Panel, Vitamin D 25-OH Test Result Flag Reference Sodium 139 135-145 mmol/L Potassium 4.0 3.3-5.1 mmol/L CL 101 96-108 mmol/L CO2 28 22-29 mmol/L Gap 14 12-20 BUN 17 H 9-16 mg/dL Creat 0.94 0.5-1.4 mg/dL eGFR 58 Chronic Kidney Disease: Estimated GFR < 60 mL/min/1.73m2 Severe Kidney Disease: Estimated GFR < 15 mL/min/1.73m2 FBS 207 H 60-99 mg/dL A fasting glucose of 126 mg/dl or greater on more than one occasion is considered diagnostic of diabetes. CA 9.2 8.4-10.2 mg/dL AST (GOT) 24 5-31 U/L ALT (GPT) 19 0-31 U/L Triglyceride 182 H <150 mg/dL Desirable Triglyceride: less than 150 mg/dL Borderline High Triglyceride 150-199 mg/dL High Triglyceride: 200-499 mg/dL Very High Triglyceride: greater than or equal to 5OO mg/dL Cholesterol 154 <200 mg/dL Desirable Cholesterol: less than 200 mg/dL Borderline High Cholesterol: 200-239 mg/dL High Cholesterol: greater than 239 mg/dL LDL Calculated 67 <100 mg/dL Desirable LDL: less than 100 mg/dL Near Optimal/Above Optimal LDL: 110-129 mg/dL Borderline High LDL: 130-159 mg/dL High LDL: 160-189 mg/dL Very High LDL: greater than or equal to 190 mg/dL HDL 51 >40 mg/dL Desirable HDL: greater than 40 mg/dL Note: This HDL assay may give artificially low results in patients with liver disease. Vit D 25-OH Tot 56.8 >30 ng/mL Health Based Reference Values* < 20 ng/mL Deficient 20-30 ng/mL Insufficient > 30 ng/mL Sufficient *Lavinia DURAND. N Engl J Med. 2007;[id number] Coding Level of Care Code Est Pt Level 4 (40936) Complex EM visit Add On G2211 Diagnoses Type 2 diabetes mellitus with hyperglycemia, with long-term current use of insulin E11.65; Z79.4 Diabetes mellitus type: type 2 Mixed dyslipidemia E78.2 Essential hypertension I10 Moderate episode of recurrent major depressive disorder F33.1 Depression Type: major depressive disorder Major depression recurrence: recurrent Active/Remission status: currently active Major depression episode severity: moderate Assessment & Plan Assessment & Plan (1) Diabetes mellitus with hyperglycemia, with long-term current use of insulin: Code(s): E11.65 - Type 2 diabetes mellitus with hyperglycemia; Z79.4 - care home (current) use of insulin Category: Medical Qualifiers: Diabetes mellitus type: type 2 Qualified Code(s): E11.65 - Type 2 diabetes mellitus with hyperglycemia; Z79.4 - predatory animal exterminator (current) use of insulin Plan: Latest hemoglobin A1c is at 8.8%. Having episodes of hypoglycemia during the night , where her blood sugar would punch from 300-60 mg in the early mornings advised to switch lantus 10 units to morning dose , continue metformin er 750 mg twice a day and see me back in 3 months for ffup , do fasting labs prior to appt. Reinforced importance of following recommended diet, unable to exercise much due to recent left rib fracture sustained a month ago (2) Mixed dyslipidemia: Code(s): E78.2 - Mixed hyperlipidemia Category: Medical Plan: Reviewed recent fasting lipid profile with patient with levels within normal . Continue atorvastatin 80 mg at night , in addition to adherence to low-cholesterol diet and regular exercise, at least 30 minutes 3 to 4 times a week. Advised patient to make healthy food choices, eat more fruits, vegetables, whole grains, wild caught fish and low-fat dairy. Limit amount of meat and fried or fatty food products, as well as processed foods and fast foods. Follow-up scheduled with repeat fasting lipid panel in 3 months. (3) Essential hypertension: Code(s): I10 - Essential (primary) hypertension Category: Medical Plan: Blood pressure at goal of less than 130/80. Continue lisinopril 2.5 mg daily and metoprolol succinate ER 100 mg at night plus verapamil 100 mg daily. Reinforced importance of following a low sodium diet, getting regular exercise, and lowering stress levels. (4) Depression: Code(s): F32.9 - Major depressive disorder, single episode, unspecified Category: Medical Qualifiers: Depression Type: major depressive disorder Major depression recurrence: recurrent Active/Remission status: currently active Major depression episode severity: moderate Qualified Code(s): F33.1 - Major depressive disorder, recurrent, moderate Plan: Continue with sertraline, trazodone and lorazepam taken as needed acute anxiety attacks Orders: Orders Lipid Panel 12/12/24 D64.9 - Anemia, unspecified, E11.65 - Type 2 diabetes mellitus with hyperglycemia, E78.2 - Mixed hyperlipidemia, F33.1 - Major depressive disorder, recurrent, moderate, I10 - Essential (primary) hypertension, Z79.4 - predatory animal exterminator (current) use of insulin Hemoglobin A1c 12/12/24 D64.9 - Anemia, unspecified, E11.65 - Type 2 diabetes mellitus with hyperglycemia, E78.2 - Mixed hyperlipidemia, F33.1 - Major depressive disorder, recurrent, moderate, I10 - Essential (primary) hypertension, Z79.4 - predatory animal exterminator (current) use of insulin Microalbumin, Random (w Creat) 12/12/24 D64.9 - Anemia, unspecified, E11.65 - Type 2 diabetes mellitus with hyperglycemia, E78.2 - Mixed hyperlipidemia, F33.1 - Major depressive disorder, recurrent, moderate, I10 - Essential (primary) hypertension, Z79.4 - predatory animal exterminator (current) use of insulin Alanine Aminotransferase 12/12/24 D64.9 - Anemia, unspecified, E11.65 - Type 2 diabetes mellitus with hyperglycemia, E78.2 - Mixed hyperlipidemia, F33.1 - Major depressive disorder, recurrent, moderate, I10 - Essential (primary) hypertension, Z79.4 - predatory animal exterminator (current) use of insulin Complete Blood Count Auto Diff 12/12/24 D64.9 - Anemia, unspecified, E11.65 - Type 2 diabetes mellitus with hyperglycemia, E78.2 - Mixed hyperlipidemia, F33.1 - Major depressive disorder, recurrent, moderate, I10 - Essential (primary) hypertension, Z79.4 - care home (current) use of insulin IRON PROFILE 12/12/24 D64.9 - Anemia, unspecified, E11.65 - Type 2 diabetes mellitus with hyperglycemia, E78.2 - Mixed hyperlipidemia, F33.1 - Major depressive disorder, recurrent, moderate, I10 - Essential (primary) hypertension, Z79.4 - care home (current) use of insulin Basic Metabolic Panel Fasting 12/12/24 D64.9 - Anemia, unspecified, E11.65 - Type 2 diabetes mellitus with hyperglycemia, E78.2 - Mixed hyperlipidemia, F33.1 - Major depressive disorder, recurrent, moderate, I10 - Essential (primary) hypertension, Z79.4 - predatory animal exterminator (current) use of insulin Aspartate Amino Transferase 12/12/24 D64.9 - Anemia, unspecified, E11.65 - Type 2 diabetes mellitus with hyperglycemia, E78.2 - Mixed hyperlipidemia, F33.1 - Major depressive disorder, recurrent, moderate, I10 - Essential (primary) hypertension, Z79.4 - predatory animal exterminator (current) use of insulin Vitamin D 25-OH Total 12/12/24 D64.9 - Anemia, unspecified, E11.65 - Type 2 diabetes mellitus with hyperglycemia, E78.2 - Mixed hyperlipidemia, F33.1 - Major depressive disorder, recurrent, moderate, I10 - Essential (primary) hypertension, Z79.4 - predatory animal exterminator (current) use of insulin Medications: Changed From insulin glargine (Lantus Solostar U-100 Insulin) 10 units (0.1 mL) subcut QPM 15 mL 1RF E11.65 - Type 2 diabetes mellitus with hyperglycemia To Lantus Solostar U-100 Insulin (insulin glargine) 10 units (0.1 mL) subcut QAM 15 mL 1RF NS E11.65 - Type 2 diabetes mellitus with hyperglycemia
== END ==
PROVIDERS: PCP Internal Medicine; Visit Provider Internal Medicine
DX: E11.65 Type 2 diabetes mellitus with hyperglycemia (principal); Z79.4 Long term (current) use of insulin; F33.1 Major depressive disorder, recurrent, moderate; E78.2 Mixed hyperlipidemia; I10 Essential (primary) hypertension

== ENCOUNTER 2024-11-05 12:38 | Outpatient (AMB) | payer MEDICARE, SELFPAY ==
[2024-11-05 12:42] VITALS: BP 130/64; PULSE 69; RESP 16; TEMP 36.8; O2SAT 96; BMI 32.2
--- NOTE | 2024-11-05 12:42 | MHC.PC.OV ---
Vital Signs 11/05/24 12:42 Height 5 ft Weight 165 lb BMI 32.2 BP 130/64 Respiration 16 Pulse 69 Pulse Source Pulse Oximeter Temp 98.2 F Temp Source Oral Pulse Oximetry (%) 96 Oxygen Delivery Method Room Air Intake Visit Reasons: 1m follow up Intake Note: Pt is here today for her 1mo. f/u Allergies sulfamethoxazole [From Bactrim] Allergy (Severe, Verified 11/05/24 12:59) Rash adhesive tape [ADHESIVE TAPE] Allergy (Intermediate, Verified 11/05/24 12:59) BLISTERS clonidine Allergy (Verified 11/05/24 12:59) makes pt hulusinate adhesive Adverse Reaction (Severe, Verified 11/05/24 12:59) BLISTERS gabapentin Adverse Reaction (Severe, Verified 11/05/24 12:59) hallucination hydromorphone [From Dilaudid] Adverse Reaction (Severe, Verified 11/05/24 12:59) Hallucinations morphine Adverse Reaction (Severe, Verified 11/05/24 12:59) hallucination glue Adverse Reaction (Severe, Uncoded 11/05/24 12:59) BLISTERS Medication List - Last Reconciled 11/05/24 by Sary Waite MD acetaminophen 500 mg PO BID apixaban (Eliquis) 1 tab PO Q12H atorvastatin 80 mg PO BEDTIME azelastine 2 sprays intranasal BID PRN blood sugar diagnostic ([place] Ultra Test strips) test blood sugar once daily blood-glucose meter ([place] Ultra2 Meter) As directed to test blood sugar once a day cetirizine (Zyrtec) 10 mg PO DAILY cholecalciferol (vitamin D3) 50 mcg PO DAILY clotrimazole 2% 1 appful vaginal BEDTIME PRN clotrimazole-betamethasone 1-0.05 % 1 appl topical BID 10 days Donut pillow As directed ferrous fumarate 325 mg PO Q2D flash glucose scanning reader (FreeStyle [place] 2 [place]) As directed flash glucose sensor (FreeStyle [place] 2 Sensor kit) check glucose twice a day as directed folic acid 1 mg PO DAILY 90 days hyoscyamine sulfate 0.125 mg PO BID PRN isosorbide mononitrate ER 30 mg PO DAILY lancets (Acccess Technology SolutionsTouch Delica Lancets) test blood sugar once a day Lantus Solostar U-100 Insulin (insulin glargine) 10 units (0.1 mL) subcut QAM NS qteaix-bniimjon-ocfvpzf 10,000-32,000 -42,000 unit (Zenpep) 1 cap PO TID 30 days lisinopril 2.5 mg PO DAILY loperamide 2 mg PO TID PRN lorazepam 0.5 mg PO .qd PRN meloxicam 7.5 mg PO DAILY metformin ER 750 mg PO BID metoprolol succinate ER 100 mg (2 x 50 mg) PO BEDTIME omeprazole 40 mg PO DAILY 90 days ondansetron 4 mg PO Q8H PRN 30 days oxycodone 10 mg PO Q6-8H PRN pen needle, diabetic (BD Ultra-Fine Original Pen Needle) Use to inject insulin 4 times per day pramipexole 0.25 mg PO DAILY sertraline (Zoloft) 150 mg (1.5 x 100 mg) PO DAILY 3 months trazodone 50 mg PO BEDTIME verapamil ER 100 mg PO BEDTIME Tobacco use date assessed: 11/05/24 Fall risk assessment: 2 + Falls in past year Last assessed Fall Risk: 11/05/24 Dental Screening Dental Screen Date: 11/05/24 Did you have a dental visit in the last 12 months?: No Did you have a dental problem in the last 6 months where you did not have access to dental care?: No Was dental information given to patient?: No (dentures) HPI 1m follow up HPI Details 79-year-old lady here today for follow-up on her diabetes mellitus. Currently taking metformin ER 750 mg 1 tablet twice a day with meals and Lantus 10 units in a.m.. Patient's last hemoglobin A1c was 8.7% a month ago, and states that her sugar has been running still between from between 222-270 mg per dL in the morning, checks with her freestyle [place] and running about the same at night.. She is also here complaining of itching and redness in her left eye and left lower lid, which has been present now for the last 10 days. States that she wakes up with crusted eyelids on the left. Denies any change in vision. Complains of frequent falls over the last several months, and balance issues . States that it takes her a while to get out of bed as she feels very dizzy when she gets up in the morning or when she bends forward she would lose her balance and fall forward she also gets episodes of lightheadedness when she makes sudden turns. Denies any accompanying tinnitus, no loss of hearing reported [facility] Medical History Depression Diabetes mellitus with hyperglycemia, with long-term current use of insulin Swelling of knee joint, left Hx of sigmoidoscopy Metformin adverse reaction Adenocarcinoma of left lung (~2021) Aortic stenosis Atypical migraine Transient cerebral ischemia AVM (arteriovenous malformation) of colon Normocytic anemia Nonrheumatic mitral valve regurgitation Nonrheumatic aortic (valve) stenosis Obesity History of blood transfusion Barretts esophagus AAA (abdominal aortic aneurysm) (~2008) Bleeding hemorrhoids Anemia Arthritis On anticoagulant therapy (~10/2020) On beta [place] at home Pulmonary nodules Mixed dyslipidemia Vitamin B12 deficiency GIB (gastrointestinal bleeding) COPD (chronic obstructive pulmonary disease) Bilateral pulmonary embolism (~10/2020) Restless leg syndrome Irritable bowel syndrome with both constipation and diarrhea GERD without esophagitis CAD (coronary artery disease) Essential hypertension Surgical History History of lung biopsy (~2021) History of esophagogastroduodenoscopy (EGD) (~2020) History of hysterectomy History of colonoscopy (~2018) History of coronary artery bypass graft x 2 (~2017) History of total right knee replacement (TKR) (~2015) History of bilateral breast reduction surgery (~2010) S/P excision of lipoma (~2017) History of heart artery stent (~2007) Family History Father HTN (hypertension) Myocardial infarction Hyperlipidemia Abdominal aneurysm Mother HTN (hypertension) Myocardial infarction Hyperlipidemia Brother Alzheimer's disease Substance abuse Sister Rheumatoid arthritis Brother Rheumatoid arthritis Maternal Aunt Diabetes mellitus Lung cancer Maternal Uncle Diabetes mellitus Son No problems noted. Daughter No problems noted. 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 1. Little interest or pleasure in doing things: not at all 2. Feeling down, depressed, or hopeless: not at all 3. Trouble falling or staying asleep, or sleeping too much: several days 4. Feeling tired or having little energy: several days 5. Poor appetite or overeating: several days 6. Feeling bad about yourself - or that you are a failure or have let yourself or your family down: several days 7. Trouble concentrating on things, such as reading the newspaper or watching television: several days 8. Moving or speaking so slowly that other people could have noticed. Or the opposite - being so fidgety or restless that you have been moving around a lot more than usual: not at all 9. Thoughts that you would be better off or of hurting yourself in some way: not at all Total score: 5 Depression Screening Interpretation: Negative Depression Screening Done: Yes 36900 - PHQ-9 Billing: Yes Source: Developed by Drs. Alexey Arreaga, Yokasta Paulino, Pieter Oro and colleagues, with an educational jose j from [employer]. Thrive Questionnaire Date Thrive assessed: 10/29/24 I am a: Patient What is your living situation today?: I have a steady place to live Within the past 12 months, did the food you bought not last and you didn't have the money to get more?: Never true Within the past 12 months, did you worry whether your food would run out before you got money to buy more?: Never true Do you have trouble paying for medicines?: No Do you have trouble getting transportation to medical appointments?: No Do you have trouble paying your heating and electricity bill?: No Do you have trouble taking care of your child, family member or friend?: No Do you have trouble with day-to-day activities such as bathing, preparing meals, shopping, managing finances, etc.?: Yes Are you currently unemployed and looking for a job?: No Are you interested in more education?: No Please select the resources that you would like help with: None Currently or been in a relationship where the following occur: No concerns reported THRIVE Score: 0 AUDIT C Alcohol Use Questionnaire (AUDIT-C) 1. How often do you have a drink containing alcohol?: Monthly or less 2. How many drinks containing alcohol do you have on a typical day when you are drinking?: 1 or 2 3. How often do you have six or more drinks on one occasion?: Never Total Score: 1 BO-7 AMB Questionnaire BO-7 Date BO - 7 assessed: 11/05/24 Feeling nervous, anxious, or on edge: 1 = Several days Not being able to stop or control worryin = Not at all Worrying too much about different things: 1 = Several days Trouble relaxin = Several days Being so restless that it is hard to sit still: 0 = Not at all Becoming easily annoyed or irritable: 1 = Several days Feeling afraid as if something awful might happen: 1 = Several days Total BO-7 score (0-4 normal; 5-9 mild; 10-14 moderate; 15-21 severe): 5 Source: Developed by Drs. Alexey Arreaga, Yokasta Paulino, Pieter Oro and colleagues, with an educational jose j from [employer]. BO-7 Assessment Billing BO-7 Assessment Tool: BO-7 Assessment 72975 Review of Systems Const Denies fever(s), Denies frequent falls and Denies headache(s) ENT Denies dysphagia and Denies headache(s) Card Denies syncope, Denies rapid heart rate, Denies irregular heart rhythm and Denies dyspnea Resp Denies cough, Denies dyspnea and Denies wheezing GI Denies abdominal pain, Denies melena, Denies change in bowel habits, Denies dysphagia and Denies vomiting Musc Denies arthralgias, Denies joint swelling, Denies numbness and Reports stiffness Neuro Denies syncope, Denies frequent falls, Denies headache(s) and Denies numbness Psych Reports no additional complaints Endo Denies polyphagia Lele/Lymph Reports easy bruising Aller/Immun Denies wheezing Physical exam (Primary Care) Vital Signs: Last Vital Signs Temp 98.2 F 11/05/24 12:42 Pulse 69 11/05/24 12:42 Resp 16 11/05/24 12:42 BP 130/64 11/05/24 12:42 Pulse Ox 96 11/05/24 12:42 Oxygen Delivery Method Room Air 11/05/24 12:42 BMI result Body Mass Index 32.2 Tobacco/Smoking Status: Tobacco use Status Tobacco use date assessed 11/05/24 11/05/24 12:44 Patient Tobacco Use Status Former Tobacco user 11/05/24 12:44 Tobacco use type Cigarette 11/05/24 12:44 e-Cigarette/Vaping Use Never Used 11/05/24 12:44 PHQ-9: PHQ-9 Score PHQ-9: Total score 8 11/05/24 12:58 Depression Screening Interpretation: Negative Thrive Assessment: Date of Thrive Assessment Date Thrive assessed 10/29/24 11/05/24 12:44 Currently or been in a relationship where the following occur: No concerns reported Const Other: Alert oriented x3, no acute cardiorespiratory distress, ambulatory with normal gait Orientation/consciousness: patient oriented x3 HENMT Mouth: Normal oral and palatal mucosa present and moist mucous membranes Neck Other: Supple, no lymphadenopathy, thyroid gland nonpalpable Resp Effort & Inspection: normal respiratory effort and able to speak in complete sentences Auscultation: clear to auscultation bilaterally Cardio Other: S1-S2 present regular rate and rhythm GI Palpation (GI): Soft to palpation, nontender, no guarding and no masses Auscultation: normal bowel sounds Neuro General: patient oriented x3, gait normal, tone normal, moves all extremities, Normal light touch and pain sensation, no focal motor deficits and CN's II-XI intact bilaterally Extrem General: Yes full ROM, Yes no calf tenderness and Yes normal gait Psych Appearance: grossly normal and well kempt Mental Status: mental status grossly normal Speech and movement: Normal speech and movement present Affect: normal affect Attitude: cooperative Results Reviewed Results Reviewed: Name: Brittany Onofre Age/Sex: 79/F : 1945 Unit#: [id number] Attend Dr: Maine Perdue MD Re10/19/24 Status: REG RCR Location: HO.ONC Disch: SPEC : [id number] KIKI: 10/19/24 STATUS: COMP REQ : [id number] RECD: 10/19/24 [facility] DR: Adrian Singh MD COMP: 10/19/24 ENTERED: 10/19/24 [facility] DR: Maine Perdue MD, Annabel C MD ORDERED: CBC Auto Diff Test Result Flag Reference WBC 5.7 4.8-10.8 X10*3/uL RBC 3.60 L 4.20-5.50 X10*6/uL HGB 11.5 L 12.0-16.0 g/dl HCT 33.8 L 37.0-47.0 % MCV 93.9 80.0-98.0 fL MCH 31.9 27.0-33.0 pg MCHC 34.0 31.0-35.0 g/dl RDW 12.2 11.0-16.0 % PLT 222 160-400 X10*3/uL MPV 10.7 9.4-12.3 fL Neut Pct Auto 66.2 45-73 % ImGran Pct Auto 0.4 0.0-0.4 % Lymp Pct Auto 22.8 20-40 % [place] Pct Auto 8.6 2-11 % Eos Pct Auto 1.6 0-4 % Baso Pct Auto 0.4 0-2 % NRBC Pct Auto 0.0 0.0-0.2 /100WBC ANC Neut Abs # 3.8 2.0-8.3 x10*3/uL ImGran Abs Auto 0.02 0.00-0.03 X10*3/uL Lymph Abs Auto 1.3 1.2-4.9 X10*3/uL [place] Abs Auto 0.5 0.1-1.2 X10*3/uL Eos Abs Auto 0.1 0.0-0.4 X10*3/uL Baso Abs Auto 0.0 0.0-0.2 X10*3/uL NRBC Abs Auto 0.000 0.0-0.012 X10*3/uL pedro luis: Brittany Onofre Age/Sex: 79/F : 1945 Unit#: [id number] Attend Dr: Maine Perdue MD Re10/19/24 Status: REG RCR Location: HO.ONC Disch: SPEC : [id number] KIKI: 10/19/24 STATUS: COMP REQ : [id number] RECD: 10/19/24-[address]: Adrian Singh MD COMP: 10/19/24-123 ENTERED: 10/19/[address]: Maine Perdue MD, Annabel C MD ORDERED: CMP Test Result Flag Reference Sodium 139 135-145 mmol/L Potassium 4.1 3.3-5.1 mmol/L CL 105 96-108 mmol/L CO2 26 22-29 mmol/L Gap 12 12-20 BUN 18 H 9-16 mg/dL Creat 0.93 0.5-1.4 mg/dL Estimated CrCl 45.5 Provided height and weight: 152.4 cm, 74.1 kg. eGFR (calculated from the MDRD study equation) and eCrCl (calculated from the Cockcroft-Gault equation) are based on different parameters and may not yield comparable results. If eCrCl result is absurd, please check patient's height/weight. eGFR 58 Chronic Kidney Disease: Estimated GFR < 60 mL/min/1.73m2 Severe Kidney Disease: Estimated GFR < 15 mL/min/1.73m2 Glucose, Random 274 H 60-115 mg/dL CA 9.5 8.4-10.2 mg/dL Total Bili 0.3 0.0-1.0 mg/dL AST (GOT) 26 5-31 U/L ALT (GPT) 17 0-31 U/L Protein, Total 7.1 6.5-8.0 g/dL Alb 4.1 3.5-5.0 g/dL Alk Phos 48 39-117 U/L Coding Level of Care Code Est Pt Level 4 (00056) Complex EM visit Add On G2211 Diagnoses Type 2 diabetes mellitus with hyperglycemia, with long-term current use of insulin E11.65; Z79.4 Diabetes mellitus type: type 2 Acute conjunctivitis of left eye H10.32 Benign positional vertigo H81.10 Additional Codes BO-7 Assessment Billing - BO-7 Assessment Tool: BO-7 Assessment 25738 ([id number]) PHQ-9 - 75928 - PHQ-9 Billing: Yes ([id number]) Assessment & Plan Assessment & Plan (1) Diabetes mellitus with hyperglycemia, with long-term current use of insulin: Code(s): E11.65 - Type 2 diabetes mellitus with hyperglycemia; 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 Referred to [facility] endocrine clinic for further evaluation management (2) Acute conjunctivitis of left eye: Code(s): H10.32 - Unspecified acute conjunctivitis, left eye Category: Medical Plan: Prescription sent for moxifloxacin drops, 1 drop 3 times a day for 5 days to left eye directions on proper use given (3) Benign positional vertigo: Code(s): H81.10 - Benign paroxysmal vertigo, unspecified ear Category: Medical Plan: Referred to vestibular rehab for further evaluation and management of benign positional vertigo Orders: Orders PT Evaluation and Treatment Today H81.10 - Benign paroxysmal vertigo, unspecified ear Referrals Endocrinology Referral E11.65 - Type 2 diabetes mellitus with hyperglycemia, 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
== END 2024-11-05 13:25 | disposition home or self-care (01) ==
PROVIDERS: PCP Internal Medicine; Visit Provider Internal Medicine
DX: E11.65 Type 2 diabetes mellitus with hyperglycemia (principal); Z79.4 Long term (current) use of insulin; H10.32 Unspecified acute conjunctivitis, left eye; H81.10 Benign paroxysmal vertigo, unspecified ear

== ENCOUNTER → 2024-11-05 12:38 | Outpatient (BNVA) | payer MEDICARE, SELFPAY | PROVIDERS: PCP Internal Medicine; Visit Provider Internal Medicine | DX: E11.65 Type 2 diabetes mellitus with hyperglycemia (principal); H10.32 Unspecified acute conjunctivitis, left eye; H81.10 Benign paroxysmal vertigo, unspecified ear; Z79.4 Long term (current) use of insulin | CPT/HCPCS: 96127; 99212 ==

== ENCOUNTER 2024-12-19 07:59 | Outpatient (REF) | payer MEDICARE, SELFPAY ==
--- OUTSIDE RECORDS SUMMARY | 2024-12-19 08:02 | XMS_ITS | Encounter Summary ---
Author Organization [facility] Address [address] [place] [address] Care Team Providers Care Electrocardiograph Operator Name Role Phone Sary Waite MD Primary Care Provider Reason for Referral * Dermatology (Routine) - Pending Review Specialty Diagnoses / Procedures Referred By Contac t Referred To Contact Diagnoses Basal cell carcinoma (BCC) of forehead Procedures MOHS Surgery Elma King MD [address] [place], [place] [id number] Phone: tel: fax: Referral ID Status Reason Start Date Expiration Date V isits Requested Visits Authorized [id number] Pending Review 11/27/2024 05/29/2026 1 1 Reason for Visit * Reason Comments Skin Problem Mohs * Insurance Referral (Routine) - Authorized Specialty Diagnoses / Procedures Referred By Contac t Referred To Contact Dermatology Diagnoses Basal cell carcinoma (BCC) of forehead BCC INFERIOR MID FOREHEAD. Procedures MOHS SURGERY MOHS SURGERY Sary Waite MD [address] [place] [address] Phone: tel: fax: Elma King MD [address] [place] [id number] Phone: tel: fax: Referral ID Status Reason Start Date Expiration Date V isits Requested Visits Authorized [id number] Authorized 11/24/2024 11/22/2025 6 6 Encounter Details Date Type Department Care Team (Latest Contact Info) Description 11/27/2024 7:45 AM EST Procedure visit [facility] 4th Floor [address] [facility], [place] [address] Thread Singer: Elma Gonzalez MD [address] [place] [phone] Basal cell carcinoma (BCC) of forehead (Primary Dx) Social History Tobacco Use Types Packs/Day Years Used Date Smoking Tobacco: Former Cigarettes Smokeless Tobacco: Never Comments Unknown Sex and Gender Information Value Date Recorded Sex Assigned at Not on file Legal Sex Female 10:25 AM EST Gender Identity Not on file Sexual Orientation Not on file documented as of this encounter Last Filed Vital Signs Vital Sign Reading Time Taken Comments Blood Pressure 154/74 11/27/2024 8:13 AM EST Pulse 58 11/27/2024 8:13 AM EST Temperature - - Respiratory Rate - - Oxygen Saturation - - Inhaled Oxygen Concentration - - Weight - - Height - - Body Mass Index - - documented in this encounter Patient Instructions * Patient Instructions* Lucila Larson MA - 11/27/2024 7:45 AM EST [facility] DERMATOLOGIC SURGERY WOUND CARE INSTRUCTIONS FOR DISSOLVING SUTURES Elma Carter performed Mohs Surgery. INITIAL DRESSING CARE Initial bulky dressing stays in place for 48 hours. Keep the dressing absolutely dry. Keep the dressing ON in the shower You may remove the dressing and continue with wound care DAILY DRESSING CARE Wash hands before each dressing change. Change the bandage once daily. Remove the bandage Gently cleanse the wound with a liquid soap and warm water. Try to clean off any crust or debris. Then apply a thick layer of Vaseline ointment. Cover the wound with a bandaid / telfa and tape. Continue wound care for 7 days. Keep wound covered at all times until your next visit. If directed, wear shama bandage throughout the day, and remove every night. (DO NOT SLEEP WITH THE SHAMA BANDAGE ON) Sutures may take up to 2-4 weeks to dissolve. Keep the area covered for 1 week, then apply vaseline until wound looks completely healed. THINGS TO AVOID Avoid strenuous activities such as exercise, bending, lifting more than 5 lbs, cleaning. Activitiescan place stress the wound or raise your blood pressure and result in infection or bleeding complications Avoid submerging the wound such as taking a bath, swimming or using a jacuzzi. Avoid smoking which can delay wound healing. DISCOMFORT: Keeping the area elevated in the first 48 hours will decrease swelling and discomfort. You may ice the area for 10 -15 minutes every hour for the first 24 - 48 hours while awake. For pain, take tylenol (acetaminophen) every 6 hours. Avoid alcohol and ibuprofen for 3 days. DO NOT stop aspirin if you currently take a daily aspirin. BLEEDING: If light bleeding occurs, apply direct pressure over the wound for 15-20 minutes with a clean cloth. If bleeding continues, repeat this cycle once again. If bleeding still persists, call us. INFECTION: Signs of infection include increasing pain, increasing redness, swelling, drainage, red streaks, fever. If you experience any signs of infection, call the number below. PHONE NUMBERS TO CALL (Please call us with any questions or concerns) Weekdays 8AM - 4PM Call the Clinic at: and ask for the nurse. Weekends, evenings, nights Call and ask for the ???Lip Cutter manufacturing applications engineer?? documented in this encounter Progress Notes * Lucila Larson MA - 11/27/2024 7:45 AM ESTAssociated Order(s): MOHS Surgery Post-Procedure Diagnose(s): Basal cell carcinoma (BCC) of forehead MOHS Surgery Date/Time: 11/27/2024 7:45 AM Performed by: Elma King MD Authorized by: Elma King MD Procedure (Free Text): BCC Mid Inferior Forehead Patient identity confirmed?: Name and with patient and Verbally Verbal consent obtained?: Yes Written consent obtained?: Yes Risks and benefits discussed?: Yes Consent given by?: Patient Patient states understanding of procedure being performed?: Yes Patient's understanding of procedure matches consent?: Yes Procedure consent matches procedure to be performed: Yes All relevant documents/tests are correctly identified, labeled, and matched to patient: Yes Relevant tests/ Imaging studies available/reviewed: Yes Correct site marked: Yes Required blood products, implants, devices and special equipment available: N/A Immediately prior to the procedure a time out was called: Yes An attending physician was present for the procedure OR the procedure was performed by an Advanced Practice Provider (Residents: A yes indicates you are attesting to the attending being present for the smith portions of the procedure. Checking yes when the attending was not present may result in fraudulent charges being submitted): Yes Nurse: Jael AGUIRREA: Padmini Colon Patient Fasting?: Yes (had chewy bar) Allergies: Adhesive Tape-Silicones Clonidine Gabapentin Hydromorphone Morphine Sulfamethoxazole Sulfamethoxazole-Trimethoprim Trimethoprim Blood Thinners?: Yes Blood Thinners: Eliquis (abixiban) and ASA Joint Replacement?: Yes (Right Knee Replaced 5-6 years ago?) In the last year?: No Antibiotics Before the Dentist?: No Cautery set up:: [facility] Grounding pad site:: Left Arm Surgical Prep: Chlorhexidine 8 mL lidocaine-epinephrine (PF) 1%-1:220,000 (PF) 1%-1:220,000 Patient Condition: Stable Wound Treated With:: Vaseline Bandages to remain in place for:: 48 hours Discharge: Patient tolerated the procedure well with no immediate complications, Pressure dressing applied, Wound care reviewed verbally and in writing and Patient discharged in good condition * Elma King MD - 11/27/2024 7:45 AM EST Images from the original note were not included. [facility] [[email or web address]] Department of Dermatology, Mohs Micrographic Surgery Report: Surgical Staff: Elma King MD, Mounika Morley MD (Fellow) Referring Provider: Naun Brewer MD, Sary Waite MD Procedure: Mohs micrographic surgery of a BASAL CELL CARCINOMA from the INFERIOR MID FOREHEAD with an Intermediate Layered closure. Patient Profile: Mohs micrographic surgery was chosen over simple excision or destruction techniques because of the type of tumor, the location of the tumor, the need for tissue sparing, and poorly defined margins Pre-OP Diagnosis: Pigmented Basal cell carcinoma Nodular Lesion Size: The lesion measured 0.8 cm by 0.6 cm Post-OP Diagnosis: Basal cell carcinoma Nodular Description of Procedure Prep & Drape: - The patient was brought to the surgical suite where informed consent was obtained. The site was identified by the surgeon and confirmed by the patient and a time out was performed. The surgical location was cleaned thoroughly with Betadine and draped in a sterile fashion. - Local anesthesia was obtained with lidocaine 2% with epinephrine 1:220,000. Procedure Details: - This procedure was performed using the accepted Mohs Micrographic Surgery techniques in which theattending physician acts in two integrated, but distinct, capacities as surgeon and pathologist. - The area was vigorously curetted to delineate margins. A first Mohs cut was taken to include 2 - 3 mm of normal appearing epidermis. Hemostasis was achieved with electrocautery. 100 mg of Tranexamic acid (1mL) was injected into the defect for added hemostasis. -The tissue was mapped as a single piece and color coded in the three color marking system. Slides were prepared from the tissue and reviewed. Tumor was revealed in the section. - The specimen showed nodular BASAL CELL CARCINOMA in the deep dermis. Nodular Basa Cell Carcinoma:Nodules of atypical basal cells with surrounding stroma in the subcutaneous fat-muscle junction. 1mL of 0.5% bupivacaine was injected into the defect for initial anesthesia. - The patient was reprepped and redraped. Supplemental anesthesia was provided. A second stage was taken. -The tissue was into 2 piece(s) and inked with the three color marking system. Slides were prepared from the tissue and reviewed under the microscope. NO tumor was revealed in the sections. - The specimen showed clear margins. Closure: - Closure options were examined. The defect measured 1.8 cm by 1.3 cm. After a full review of treatment options, it was decided that the defect would best be closed with an intermediate layered closure. The area was reprepped and draped and supplemental anesthesia administered. - A layered closure was chosen to eliminate space and add wound security. The wound was undermined and two standing cones were removed. Hemostasis was obtained with electrocautery. The wound wasthen closed with 4-0 Vicryl and 4-0 Monocryl buried sutures and the skin was closed with 6-0 Fast Absorbing Gut. - The final repair size after closure measured 5.0 cm. Dressing: - A sterile pressure dressing was applied. Patient Discharge: - The patient was given extensive wound care instructions in oral and written form. - The patient tolerated the procedure well and was discharged in stable condition. The procedure results were discussed with the patient prior to discharge. Complications: - None. Post-OP Plan: - The patient will return as needed for a wound check. Additional Photos: documented in this encounter Plan of Treatment Not on file documented as of this encounter Procedures * Due to [place] [employer] law, this organization might not be sharing negative HIV tests. Procedure Name Priority Date/Time Associated Diagnosis Comments MOHS SURGERY Routine 11/27/2024 Basal cell carcinoma (BCC) of forehead documented in this encounter Results * Due to [place] [employer] law, this organization might not be sharing negative HIV tests. * MOHS Surgery (11/27/2024) Narrative [facility]ATION - 11/27/2024 Elma King MD ? 11/29/2024 ??4:43 PM MOHS Surgery Date/Time: 11/27/2024 7:45 AM Performed by: Elma King MD Authorized by: Elma King MD ?? Procedure (Free Text): ??BCC Mid Inferior Forehead Patient identity confirmed?: ??Name and with patient and Verbally Verbal consent obtained?: ??Yes Written consent obtained?: ??Yes Risks and benefits discussed?: ??Yes Consent given by?: ??Patient Patient states understanding of procedure being performed?: ??Yes Patient's understanding of procedure matches consent?: ??Yes Procedure consent matches procedure to be performed: ??Yes All relevant documents/tests are correctly identified, labeled, and matched to patient: ??Yes Relevant tests/ Imaging studies available/reviewed: ??Yes Correct site marked: ??Yes Required blood products, implants, devices and special equipment available: ??N/A Immediately prior to the procedure a time out was called: ??Yes An attending physician was present for the procedure OR the procedure was performed by an Advanced Practice Provider (Residents: A yes indicates you are attesting to the attending being present for the smith portions of the procedure. ??Checking yes when the attending was not present may result in fraudulent charges being submitted): Yes ?? Nurse: ??Jael DRAPER: ??Padmini Colon Patient Fasting?: Yes (had chewy bar) ?? Allergies: Adhesive Tape-Silicones Clonidine Gabapentin Hydromorphone Morphine Sulfamethoxazole Sulfamethoxazole-Trimethoprim Trimethoprim Blood Thinners?: Yes ?? Blood Thinners: ??Eliquis (abixiban) and ASA Joint Replacement?: Yes (Right Knee Replaced 5-6 years ago?) ?? In the last year?: No ?? Antibiotics Before the Dentist?: No ?? Cautery set up:: [facility] Grounding pad site:: ??Left Arm Surgical Prep: ??Chlorhexidine 8 mL lidocaine-epinephrine (PF) 1%-1:220,000 (PF) 1%-1:220,000 Patient Condition: ??Stable Wound Treated With:: ??Vaseline Bandages to remain in place for:: ??48 hours Discharge: ??Patient tolerated the procedure well with no immediate complications, Pressure dressing applied, Wound care reviewed verbally and in writing and Patient discharged in good condition Procedure Note Lucila Larson MA - 11/27/2024 7:45 AM EST MOHS Surgery Date/Time: 11/27/2024 7:45 AM Performed by: Elma King MD Authorized by: Elma King MD Procedure (Free Text): BCC Mid Inferior Forehead Patient identity confirmed?: Name and with patient and Verbally Verbal consent obtained?: Yes Written consent obtained?: Yes Risks and benefits discussed?: Yes Consent given by?: Patient Patient states understanding of procedure being performed?: Yes Patient's understanding of procedure matches consent?: Yes Procedure consent matches procedure to be performed: Yes All relevant documents/tests are correctly identified, labeled, andmatched to patient: Yes Relevant tests/ Imaging studies available/reviewed: Yes Correct site marked: Yes Required blood products, implants, devices and special equipmentavailable: N/A Immediately prior to the procedure a time out was called: Yes An attending physician was present for the procedure OR the procedure wasperformed by an Advanced Practice Provider (Residents: A yes indicates youare attesting to the attending being present for the smith portions of theprocedure. Checking yes when the attending was not present may result infraudulent charges being submitted): Yes Nurse: Jael DRAPER: Padmini Colon Patient Fasting?: Yes (had chewy bar) Allergies: Adhesive Tape-Silicones Clonidine Gabapentin Hydromorphone Morphine Sulfamethoxazole Sulfamethoxazole-Trimethoprim Trimethoprim Blood Thinners?: Yes Blood Thinners: Eliquis (abixiban) and ASA Joint Replacement?: Yes (Right Knee Replaced 5-6 years ago?) In the last year?: No Antibiotics Before the Dentist?: No Cautery set up:: [facility] Grounding pad site:: Left Arm Surgical Prep: Chlorhexidine 8 mL lidocaine-epinephrine (PF) 1%-1:220,000 (PF) 1%-1:220,000 Patient Condition: Stable Wound Treated With:: Vaseline Bandages to remain in place for:: 48 hours Discharge: Patient tolerated the procedure well with no immediatecomplications, Pressure dressing applied, Wound care reviewed verbally andin writing and Patient discharged in good condition us Elma King MD DERM PROCEDURE ORDERABLES Final Result [facility] documented in this encounter Visit Diagnoses Diagnosis Basal cell carcinoma (BCC) of forehead- Primary documented in this encounter Administered Medications Inactive Administered Medications - up to 3 most recent administrations Medication Order MAR Action Action Date Dose Rate Site bupivacaine PF (MARCAINE) 0.5% (5 mg/mL) injection 25 mg 25 mg (5 mL), intradermal, Once, On Sat11/27/24 at 0945, 1 dose Given 11/27/2024 9:35 AM EST 25 mg Other lidocaine-epinephrine (PF) 1%-1:220,000 (XYLOCAINE W/EPI) buffered injection 8 mL 8 mL, intradermal, One-time injection, Starting on Sat11/27/24 at 0745, 1 dose, Until Sat11/27/24 at 0745Indications:Basal cell carcinoma (BCC) of forehead Given 11/27/2024 7:45 AM EST 8 mL tranexamic acid (TXA) nasal for epistaxis 300 mg 300 mg (3 mL), intradermal, Once, On Sat11/27/24 at 0900, 1 dose Given 11/27/2024 8:55 AM EST 300 mg Other documented in this encounter Care Teams Electrocardiograph Operator Relationship Specialty Start Date End Date Sary Waite MD [address] [place] [address] PCP - General Internal Medicine 11/18/24 documented as of this encounter
--- OUTSIDE RECORDS SUMMARY | 2024-12-19 08:02 | XMS_ITS | Encounter Summary ---
Author Organization [facility] Address [address] [place] [address] Care Team Providers Care Burial Vault Deliverer And Installer Name Role Phone Sary Waite MD Primary Care Provider Encounter Details Date Type Department Care Team (Late st Contact Info) Description 12/01/2024 Telephone [facility] 4th Floor [address] [place] [address], [place] [id number] Ehs Manager: Mounika Goldman MD [address] [facility] [place] [address] Social History Tobacco Use Types Packs/Day Years Used Date Smoking Tobacco: Former Cigarettes Smokeless Tobacco: Never Comments Unknown Sex and Gender Information Value Date Recorded Sex Assigned at Not on file Legal Sex Female 10:25 AM EST Gender Identity Not on file Sexual Orientation Not on file documented as of this encounter Miscellaneous Notes * Telephone Encounter - Mounika Morley MD - 12/01/2024 12:56 PM EST Post Operative Call Back Called patient and left voicemail after recent Mohs surgery to check in and make sure all was well.Asked them to please call with any questions or concerns. Mounika Morley MD PGY5 MSDO Fellow, Dermatology documented in this encounter Plan of Treatment Not on file documented as of this encounter Visit Diagnoses Not on filedocumented in this encounter Care Teams Burial Vault Deliverer And Installer Relationship Specialty Start Date End Date Espinas, Sary Cesar Co, MD [address] [place] [address] PCP - General Internal Medicine 11/18/24 documented as of this encounter
--- OUTSIDE RECORDS SUMMARY | 2024-12-19 08:02 | XMS_ITS | Encounter Summary ---
Author Organization [facility] Address [address] [place] [address] Care Team Providers Care Valet Manager Name Role Phone Sary Waite MD Primary Care Provider [phone] Reason for Referral * Imaging (Routine) - Closed Specialty Diagnoses / Procedures Referred By Contac t Referred To Contact Cardiology Diagnoses Nonrheumatic aortic valve stenosis Fung-Garcia syncope RIVAS (dyspnea on exertion) Procedures Transthoracic echocardiogram (TTE) complete with PRN contrast, bubble, strain, and 3D order panel NM TTE W 2D IMAGE COMPLETE W DOPPLER ECHO & COLOR FLOW DOPPLER ECHO NM ANNABEL 2D COMPLETE W/CONTRAST OR W & WO CONTRAST WITH DOPPLER Adolfo Hernandez MD [address] [place] [address] [place] [address] Phone: tel: fax: [facility] Referral ID Status Reason Start Date Expiration Date Visits Re quested Visits Authorized [id number] Closed 11/24/2024 11/24/2025 1 1 * Cardiac Stress Testing (Routine) - Closed Specialty Diagnoses / Procedures Referred By Contac t Referred To Contact Cardiology Diagnoses Nonrheumatic aortic valve stenosis Fung-Garcia syncope RIVAS (dyspnea on exertion) Procedures Cardiac holter monitor (<= 48 hours) NM ECG EXTERNAL UP TO 48 HOURS RECORDING NM ECG EXTERNAL < 48 HOURS CONTINUOUS RECORDING/STORAGE R&I BY A PHYS/QHP NM EXTERNAL ECG UP TO 48 HRS INCL RECORDING SCANNING ANLYS W REPORT Adolfo Hernandez MD [address] [place] [phone] Phone: tel: fax: [facility] Referral ID Status Reason Start Date Expiration Date Visits Re quested Visits Authorized [id number] Closed 11/24/2024 11/24/2025 1 1 Reason for Visit * Reason Comments Follow-up * Other Medical (Routine) - Authorized Specialty Diagnoses / Procedures Referred By Contac t Referred To Contact Cardiology Diagnoses [Per Jp in about 4 months (around 12/18/2023)] 11/14/24 bkd per task, spk w/ pt -Kristine F Procedures OFFICE VISIT Sary Waite MD [address] [place] [phone] Phone: tel: Adolfo Hernandez MD [address] [place] [phone] Phone: tel: fax: Referral ID Status Reason Start Date Expiration Date V isits Requested Visits Authorized [id number] Authorized 11/17/2024 11/16/2025 6 6 Encounter Details Date Type Department Care Team (Late st Contact Info) Description 11/24/2024 1:00 PM EST Office Visit [facility] Cardiology [address] [place] [phone] Adolfo Hernandez MD [address] [place] [phone] Nonrheumatic aortic valve stenosis (Primary Dx); Fung-Garcia syncope; RIVAS (dyspnea on exertion) Social History Tobacco Use Types Packs/Day Years Used Date Smoking Tobacco: Former Cigarettes Smokeless Tobacco: Never Alcohol Use Standard Drinks/Week Comments Yes 0 (1 standard drink = 0.6 oz pur e alcohol) Comments Unknown Sex and Gender Information Value Date Recorded Sex Assigned at Female 02/18/2023 11:05 PM EDT Legal Sex Female 6:06 PM EST Gender Identity Female 02/18/2023 11:05 PM EDT Sexual Orientation Straight 02/18/2023 11 :05 PM EDT documented as of this encounter Last Filed Vital Signs Vital Sign Reading Time Taken Comments Blood Pressure 130/80 11/24/2024 1:00 PM EST Pulse 60 11/24/2024 1:00 PM EST Temperature - - Respiratory Rate - - Oxygen Saturation 97% 11/24/2024 1:00 PM EST Inhaled Oxygen Concentration - - Weight 74.8 kg (165 lb) 11/24/2024 1:00 PM EST Height 152.4 cm (5') 11/24/2024 1:00 PM EST Body Mass Index 32.22 11/24/2024 1:00 PM EST documented in this encounter Progress Notes * Adolfo Hernandez MD - 11/24/2024 1:00 PM ESTAssociated Problem(s): Nonrheumatic aortic valve stenosis The patient has had progressive aortic stenosis which was borderline in terms of hemodynamic severity at the time of her last evaluation a couple of years ago. At that time she had a mean gradient of26 mmHg and a dimensionless index of 0.26. She is overdue for a follow-up echocardiogram. She does have progressive breathlessness which she is minimizing as she has significantly reduced her activities in order to avoid dyspnea. A repeat echocardiogram is ordered. Orders: Cardiac holter monitor (<= 48 hours); Future Transthoracic echocardiogram (TTE) complete with PRN contrast, bubble, strain, and 3D order panel; Future * Adolfo Hernandez MD - 11/24/2024 1:00 PM EST PCP: Sary Waite MD History of Present Illness The patient is a delightful 79-year-old woman with a past medical history of coronary artery disease, aortic stenosis, moderate mitral regurgitation, hypertension, diabetes, and hyperlipidemia. She was considered for TAVR in the setting of aortic stenosis in October 2021. Diagnostic cardiac catheterization performed at [facility] revealed moderately severe aortic stenosis along with progressive coronary disease, manifesting as a new total occlusion of the dominant right coronary artery. Isosorbide was added to her regimen, and active consideration of TAVR was deferred until the valve condition became more clearly severe. She subsequently had evidence of a pulmonary nodule, which tu rned out to be malignant. She underwent radiation and chemotherapy, resulting in her cancer going into remission. She was last seen in August 2023, at which time she was recovering from a COVID-19 infection that resulted in mild worsening of breathlessness. However, she was felt to be overall stable. It was recommended that she return to the office a few months later, but she now returns after approximately 15 months. She reports no chest discomfort or significant respiratory issues. However, she believes her COPD may be worsening, as she experiences persistent phlegm in her throat, initially thought to be postnasal drip. She does not experience shortness of breath during physical activity but admits to limitingher exertion. She also reports constant fatigue and poor sleep quality, often going without sleep for two days at a time. She takes trazodone at night, which helps her fall asleep, but she still doesnot sleep well. She experienced three falls at home approximately one month ago, necessitating assistance from her and daughter to get up. She attributes these falls to a lack of exercise and used a walker for several days following the incidents. Although she has had evidence of impaired equilibrium theseepisodes occurred suddenly and without warning and she does not recall actually falling. She reports that the next thing I knew I was on the floor. 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 She reports feeling off balance and requires support from her while walking. She does not experience palpitations or swelling. She also reports difficulty transitioning from sitting to standing and has a history of bumping into doorways. She recalls an incident two florentino ago where she fell down a flight of stairs while sitting in a folding chair, landing in her yard. She expresses concern about potential equilibrium issues and reports the recent development of a hump. She is having trouble with her diabetes. Some mornings her blood sugar is 375, but this morning it was 176, and she does not know why that happens. Supplemental Information She is going to have a basal cell carcinoma removed after almost 3 months of waiting for an appointment. FAMILY HISTORY Her brother did not survive a COVID-19 infection. MEDICATIONS Current: Isosorbide, trazodone ACTIVE MEDICATIONS: Outpatient Medications Marked as Taking for the 11/24/24 encounter (Office Visit) with Adolfo Hernandez MD Medication Sig Dispense Refill acetaminophen (TYLENOL) 500 mg capsule 500 mg 2 times daily. apixaban (Eliquis) 5 mg tablet TAKE 1 TABLET BY MOUTH TWICE DAILY 180 tablet 0 aspirin 81 mg EC tablet Take 1 Tablet by mouth daily. cetirizine HCl (ZYRTEC ORAL) Cetirizine HCl (ZYRTEC ALLERGY OR) Take by mouth as needed cholecalciferol (VITAMIN D-3) 50 mcg (2,000 unit) capsule Take 1 capsule by mouth daily. clotrimazole (GYNE-LOTRIMIN 3 DAY) 2 % vaginal cream as needed. cyanocobalamin (VITAMIN B-12) 50 mcg tablet Take 50 mcg by mouth daily. FERROUS FUMARATE ORAL Take 325 mg by mouth every other day. folic acid (FOLVITE) 1 mg tablet Take 1 mg by mouth daily. insulin glargine (LANTUS) 100 unit/mL injection Inject 15 Units into the skin at bedtime. insulin lispro 100 unit/mL injection Inject as directed 3 times daily. isosorbide mononitrate (IMDUR) 30 mg 24 hr tablet TAKE 1 TABLET BY MOUTH EVERY DAY lisinopriL (PRINIVIL,ZESTRIL) 2.5 mg tablet 2.5 mg daily. LORazepam (ATIVAN) 0.5 mg tablet Take 1 Tablet by mouth 2 times daily as needed. metoprolol succinate (TOPROL-XL) 50 mg 24 hr tablet Take 2 Tablets by mouth at bedtime. omeprazole (PriLOSEC) [address] capsule Take 40 mg by mouth daily. oxyCODONE (ROXICODONE) 10 mg immediate release tablet Take 1 Tablet by mouth. Every 6-8 hours/PRN pramipexole (MIRAPEX) 0.25 mg tablet Take by mouth. sertraline (ZOLOFT) 100 mg tablet Take 100 mg by mouth daily. traZODone (DESYREL) 50 mg tablet Take 1 Tablet by mouth daily. verapamil ER (VERELAN PM) 100 mg 24 hr capsule Take 1 capsule (100 mg total) by mouth at bedtime. 90 capsule 1 PAST MEDICAL HISTORY: Patient Active Problem List Diagnosis Date Noted Date Diagnosed Chest pain 02/08/2023 COPD (chronic obstructive pulmonary disease) ([facility]) 01/26/2022 Mixed hyperlipidemia 01/26/2022 Obesity 01/26/2022 Type 2 diabetes mellitus without complications ([facility]) 01/26/2022 w/o mcc current use of insulin Pain of right lower extremity 09/29/2021 Abdominal aortic aneurysm (AAA) without rupture ([facility]) 03/14/2021 Essential hypertension 03/14/2021 Nonrheumatic aortic valve stenosis 03/14/2021 Last Assessment & Plan: Tressa Has borderline severe aortic stenosis. She does not have overt symptoms of heart failure when not anemic however she has had multiple episodes of severe anemia requiring transfusion and evaluation by gastroenterology. Her bleeding source is likely related to AVMs. We reviewed that these can have a causal relationship to aortic stenosis. The severity of AVMs and bleeding has been correlated with the severity of aortic stenosis in the literature. Her aortic valve area by echo and cath are burgeoning on severe. We discussed that while I cannot be entirely confident that aortic valve replacement will completely resolve her bleeding issues it is reasonable to consider aortic valve replacement in this context. We had a discussion of the natural history of aortic stenosis and the management options which include continued medical therapy, transcatheter aortic valve replacement, surgical aortic valve replacement or palliative care. We reviewed the risk and benefits of these approaches and decided to proceed with an evaluation for TAVR. Periprocedural risks with estimated likelihood include stroke at 2%, permanent pacemaker at 8 to 10%, major bleeding at 3%, vascular complication at 1 to 2%, and at 1 to 2%. The patient accepts these risks and would like to proceed. In regards to medical therapy after the procedure the patient will be treated with antiplatelet monotherapy due to need for oral anticoagulation with Eliquis for pulmonary embolism. The evaluation process will include evaluation by cardiothoracic surgery and a TAVR CTA. The studies will be arranged in coordination with our office and the TAVR coordinators at the [facility] structural heart disease program. After all the studies have been completed the patient's care will be reviewed in a multidisciplinary meeting in the next steps will be determined. In regards to timing of these studies and the procedure due to restrictions on elective procedures due to Covid we discussed that we likely can complete her diagnostics and be fully prepared for the procedure with anticipation of a procedure date most likely in November. Nonrheumatic mitral valve regurgitation 03/14/2021 Single subsegmental pulmonary embolism without acute cor pulmonale (CMS/HCC) 03/14/2021 Resolved Problems No resolved problems to display. ALLERGIES: Allergies Allergen Reactions Adhesive Tape-Silicones Tape Clonidine Gabapentin Morphine Other Bactrim [Na Ozdfenim-giiboafnamhtmquo-[id number]] Sulfamethoxazole Trimethoprim FAMILY HISTORY: Family History Problem Relation Name Age of Onset Hypertension Mother Heart attack Mother Hypertension Father Heart attack Father Other (Other: HLD) Father Rheum arthritis Sister Alzheimer's disease Brother Other (Other: substance abuse) Brother Diabetes Aunt Lung cancer Aunt Diabetes Uncle SOCIAL HISTORY: Social History Tobacco Use Smoking status: Former Current packs/day: 2.00 Types: Cigarettes Smokeless tobacco: Never Substance Use Topics Alcohol use: Yes REVIEW OF SYSTEMS: ROS Insomnia and persistent fatigue. The patient has become much more sedentary and appears to avoid activities to avoid dyspnea. PHYSICAL EXAM: Vitals: 11/24/24 1300 BP: 130/80 BP Location: Left arm Patient Position: Sitting BP Cuff Size: Adult Pulse: 60 SpO2: 97% Weight: (S) 74.8 kg (165 lb) Height: 1.524 m (60 ) APPEARANCE: Alert and in no acute distress, obese. EYES: PERRL, conjunctiva and sclera normal EARS: External ears normal. NOSE/SINUS: Nares normal. Septum midline. Mucosa normal. No drainage or sinus tenderness. MOUTH/THROAT: no erythema or exudates NECK: JVP less then 8cm H2O, Bilat bruits, louder on right side. Carotids have nl amplitude, sl delay., Neck supple, no adenopathy or mass HEART: RRR with normal S1 and dec A2, 3/6 late peaking MARIAH, no diast murmurs, no gallops, no JVD appreciated CHEST: non-tender LUNG: clear to auscultation ABDOMEN: Bowel sounds normoactive, no bruits, soft, non-tender, without organomegaly or palpable masses EXTREMITIES: Extremities warm and well perfused without clubbing, cyanosis, or edema NEURO: Awake, alert and oriented x 3 and Unsteady gait SKIN: Skin color, texture, turgor normal. No rashes or lesions. EKG: FREIGHT ENGINEER TESTING: Prior echo and cath reports reviewed. No recent studies. ASSESSMENT/PLAN: Assessment & Plan Nonrheumatic aortic valve stenosis The patient has had progressive aortic stenosis which was borderline in terms of hemodynamic severity at the time of her last evaluation a couple of years ago. At that time she had a mean gradient of26 mmHg and a dimensionless index of 0.26. She is overdue for a follow-up echocardiogram. She does have progressive breathlessness which she is minimizing as she has significantly reduced her activities in order to avoid dyspnea. A repeat echocardiogram is ordered. Orders: Cardiac holter monitor (<= 48 hours); Future Transthoracic echocardiogram (TTE) complete with PRN contrast, bubble, strain, and 3D order panel; Future Fung-Garcia syncope The patient clearly has disequilibrium and impaired balance but has also had 3 episodes of sudden falls without any recollection of the process of falling and which are described in a manner that is highly suggestive of a Fung-Garcia attack. I am placing a 48-hour Holter monitor this afternoon. Orders: Cardiac holter monitor (<= 48 hours); Future Transthoracic echocardiogram (TTE) complete with PRN contrast, bubble, strain, and 3D order panel; Future RIVAS (dyspnea on exertion) Multifactorial. The patient has significant COPD, obesity, deconditioning and progressive aortic stenosis which was only moderately severe at the time of her last evaluation. Transthoracic echocardiography will be updated. Orders: Cardiac holter monitor (<= 48 hours); Future Transthoracic echocardiogram (TTE) complete with PRN contrast, bubble, strain, and 3D order panel; Future Assessment & Plan 1. Coronary Artery Disease. She has a history of multivessel stenting and double vessel CABG. Currently, she reports no chest discomfort. However, there is a concern that her activity level may be self-limited to avoid exacerbating these symptoms. There is no evidence of heart failure or angina. A 48-hour Holter monitor will be initiated to assess her cardiac rhythm. An updated echocardiogram will also be conducted to evaluate her cardiac function. 2. Aortic Stenosis. She has a history of moderately severe aortic stenosis. I suspect that the degree of aortic stenosis has likely worsened. An updated echocardiogram will be conducted to assess the current state of the aortic valve. 3. Chronic Obstructive Pulmonary Disease. She reports worsening COPD symptoms, including persistent phlegm in her throat. 4. Diabetes Mellitus. She reports fluctuating blood sugar levels, with readings as high as 375 mg/dL and as low as 176 mg/dL. 5. Hypertension. 6. Hyperlipidemia. 7. Vertigo. She reports multiple falls and a sensation of being off-balance. Her PCP suspects vertigo. A 48-hour Holter monitor and an updated echocardiogram will be conducted to rule out cardiac causes since some of the episodes suggest syncope. PROCEDURE Multivessel stenting in 2004, stenting of left circumflex artery disease in 2007, double vessel CABG in June 2018, DURHAM to the LAD, saphenous vein graft to the OM1, radiation and chemotherapy for malignant pulmonary nodule. I have obtained verbal consent from Brittany Rowell Jemima prior to the recording. I have advised Brittany Rowell Jemima that she may refuse the recording and require the recording to be turned off at any time during this encounter. The [facility] team will continue to co-manage this patient following the plan of care as established by my initial visit and as per AHA guidelines for ongoing management and surveillance of 1. Nonrheumatic aortic valve stenosis 2. Fung-Garcia syncope 3. RIVAS (dyspnea on exertion) documented in this encounter Plan of Treatment Upcoming Encounters Date Type Department Care Team (Late st Contact Info) Description 12/21/2024 1:00 PM EDT Consult [facility] Cardiology [facility] Dr [facility] Dr Lewis [address] [place] [phone] Sandro Prather MD [address] [place] [address] Dr Winston [address] [place] [phone] 02/15/2025 2:30 PM EDT Office Visit [facility] [place] [phone] Adolfo Hernandez MD [address] [place] [address],[address] [address] documented as of this encounter Results * (ABNORMAL) TRANSTHORACIC ECHOCARDIOGRAM (TTE) COMPLETE (12/02/2024 10:48 AM EST) Left Atrium Minor [place] 5.8 cm CV PACS Left Atrium Major [place] 5.4 cm CV PACS LA Area Sys (A2C) 24 cm2 CV PACS LA Area Sys (A4C) 23 cm2 CV PACS LA Volume (BP) 85 mL CV PACS RA Area 14.4 cm2 CV PACS RA 2D Volume 35 mL CV PACS AV Mean Gradient 52 mmHg CV PACS Ao VTI 127.0 cm CV PACS AV Peak Ronny 4.5 m/s CV PACS AV Peak Gradient 81 mmHg CV PACS AV Area Continuity Equation 0.7 cm2 CV PACS AV Area Peak Velocity 0.7 cm2 CV PACS Aortic Sinus Valsalva 3.1 cm CV PACS Ascending Aorta 3.3 cm CV PACS IVSD 1.1(A) 0.6 - 0.9 cm CV PACS LVIDD 3.7(A) 3.8 - 5.2 cm CV PACS LVIDS 2.5 2.2 - 3.5 cm CV PACS LVOT Diameter 2.0 cm CV PACS LVOT Mean Ronny 0.7 m/s CV PACS LVOT Mean Grad 2 mmHg CV PACS LVOT Mean Grad 2 mmHg CV PACS LVOT Peak VTI 27.5 cm CV PACS LVOT Peak Ronny 1.0 m/s CV PACS LVOT Peak Ronny 1.0 m/s CV PACS LVOT Peak Gradient 4 mmHg CV PACS LVPWD 1.1(A) 0.6 - 0.9 cm CV PACS MV E' Tissue Velocity Lateral 6 cm/s CV PACS MV E' Tissue Velocity Septal 4 cm/s CV PACS LVOT Area 3.1 cm2 CV PACS LVOT Stroke Volume 86 mL CV PACS E Wave Deceleration Time 215 119 - 242 ms CV PACS MV Peak A Ronny 1.08 m/s CV PACS MV Peak E Ronny 1.06 m/s CV PACS MV Mean Gradient 2 mmHg CV PACS MV Mean Gradient 2 mmHg CV PACS MV VTI 45.4 cm CV PACS Mitral Valve Max Velocity 1.3 m/s CV PACS MV Peak Gradient 7 mmHg CV PACS MV Area Continuity Equation 1.9 cm2 CV PACS PV Acceleration Time 113 ms CV PACS RV Diastolic Basal Dimension 4.1 2.5 - 4.1 cm CV PACS RV S' 8 cm/s CV PACS TAPSE 14 mm CV PACS TR Peak Velocity 2.31 m/s CV PACS TR Peak Velocity 2.31 m/s CV PACS TR Peak Gradient 21 mmHg CV PACS E/E' Ratio Septal 27 CV PACS E/E' Ratio Averaged 22 CV PACS Relative Wall Thickness ratio 0.59 CV PACS LVOT:AV VTI Index 0.22 CV PACS FS 32 % CV PACS LV Mass 2D 129 g CV PACS MV VTI:LVOT VTI ratio 1.7 CV PACS LVOT flow 220 mL/s CV PACS E/A Ratio 1.0 CV PACS E/E' Ratio Lateral 18 CV PACS LVOT Stroke Index 50 mL/m2 CV PACS Ascending Aorta Index 1.93 cm/m2 CV PACS RA 2D Volume Index 20 mL/m2 CV PACS JOSY Index (VTI) 0.40 cm2/m2 CV PACS JOSY Index (Pk Ronny) 0.41 cm2/m2 CV PACS LVIDD Index 2.16 cm/m2 CV PACS LVIDS Index 1.46 cm/m2 CV PACS LA Volume Index (BP) 50 mL/m2 CV PACS LV Mass Index 2D 76 g/m2 CV PACS BSA 1.77 m2 CV PACS Anatomical Region Laterality Modality Ultrasound Narrative 12/02/2024 11:14 AM EST Left ventricle cavity size is normal. There is mild concentric hypertrophy. Systolic function is normal with an ejection fraction of 60-65%. Basal to mid segments of the inferior wall appear to be hypokinetic. Severe aortic stenosis Compared to the prior study from 2022, the aortic stenosis has progressed and is now severe Left Ventricle Left ventricle cavity size is normal. There is mild concentric hypertrophy. Systolic function is normal with an ejection fraction of 60-65%. Basal to mid segments of the inferior wall appear to be hypokinetic. Diastolic function is indeterminate. Right Ventricle Right ventricle cavity appears normal. Systolic function is mildly reduced. Left Atrium Left atrium cavity is severely dilated. Right Atrium Right atrium cavity is dilated. IVC/SVC Inferior vena cava structure is normal. RA pressures is estimated to be 3 mmHg (IVC diameter <21 mm and decreases >50% during inspiration). Mitral Valve The leaflets are mildly thickened. There is mild annular calcification. There is mild regurgitation with a centrally directed jet. There is no evidence of mitral valve stenosis. Tricuspid Valve Tricuspid valve structure is normal. There is trace regurgitation. There is no evidence of tricuspid valve stenosis. Aortic Valve The aortic valve is trileaflet. The leaflets are moderately thickened and exhibit severely reduced excursion. There is trace to mild regurgitation. There is severe stenosis with a mean gradient of 52 mmHg through the valve. Pulmonic Valve Visualized portions of the pulmonic valve appear normal. There is trace pulmonic valve regurgitation. There is no evidence of pulmonic valve stenosis. Ascending Aorta The aorta appears normal in size. Pericardium Pericardium appears normal. There is no pericardial effusion. Study Details Overall the study quality was adequate. Wall Scoring Baseline Score Index: 2.00 The following segments are hypokinetic: basal anteroseptal, basal inferoseptal, basal inferior and mid inferoseptal. Other segments could not be evaluated. us Adolfo Hernandez MD CV ECHO PROCEDURES Final Resul t * CARDIAC HOLTER MONITOR (REPORT GENERATED IN HOUSE) (11/24/2024 3:57 PM EST) Anatomical Region Laterality Modality Cardiac Diagnost ic Narrative 11/29/2024 4:07 PM EST [facility] DIAGNOSTIC TESTING DEPARTMENT [address] [place] [address], [place] [address] TEL: FAX: Type of Test: 48 Hour Holter Monitor Date of Test: 11/24/2024 Ordering Provider: RIVAS (dyspnea on exertion), Syncope ?? Reason for Test: ?? PVCA Form Builder Findings: ?? 1: Normal Sinus Rhythm with episodes of Sinus Bradycardia. 2: Heart rate range was 44-94 BPM with an average of 63 BPM. Total time in Sinus Bradycardia: 20 hrs 50 mins. 3: Rare PACs and atrial pairs. Rare PVCs. 4: No sigificant pause noted, longest R-R was 1.4 seconds at 4:43 AM. 5: Diary returned with an episode of heart working harder with no specific day noted. EKG at those times on both days showed Normal Sinus Rhythm with rates of 62-69 BPM. ?? Impression: ?? 1: Normal Sinus Rhythm with episodes of Sinus Bradycardia. 2: Heart rate range was 44-94 BPM with an average of 63 BPM. Total time in Sinus Bradycardia: 20 hrs 50 mins. 3: Rare PACs and atrial pairs. Rare PVCs. 4: No sigificant pause noted, longest R-R was 1.4 seconds at 4:43 AM. 5: Diary returned with an episode of heart working harder with no specific day noted. EKG at those times on both days showed Normal Sinus Rhythm with rates of 62-69 BPM. ?? 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 Therapy completed 11/24/2024 documented as of this encounter Historical Medications * This list may reflect changes made after this encounter. pramipexole (MIRAPEX) 0.25 mg tablet Take by mouth. added in this encounter Care Teams Valet Manager Relationship Specialty Start Date End Date Sary Waite MD [address] [place] [address] PCP - General 02/08/16 documented as of this encounter
--- OUTSIDE RECORDS SUMMARY | 2024-12-19 08:02 | XMS_ITS | Clinical Summary ---
Author Organization [facility] Address [address] [place] [address] Care Team Providers Care Voltage Tester Name Role Phone Sary Waite MD Primary Care Provider Allergies Active Allergy Reactions Criticality Noted Date Comments Adhesive Tape-Silicones Hives 11/15/2020 Tape Clonidine Hallucinations 09/06/2021 Gabapentin Hallucinations 02/28/2022 Other reaction(s): hallucinations Hydromorphone Hallucinations 11/27/2024 Dilaudid Morphine Hallucinations 02/28/2022 Other reaction(s): hallucinations Sulfamethoxazole Rash 11/16/2024 Sulfamethoxazole-Trimetho prim Rash 02/28/2022 Trimethoprim Unknown 11/16/2024 Medications acetaminophen (TYLENOL) 500 mg tablet Take by mouth every 6 hours as needed. Active aspirin 81 mg EC tablet Take 1 tablet by mouth once a day. Active Eliquis 5 mg tablet Take 5 mg by mouth 2 times daily. 5 Active folic acid (FOLVITE) 1 mg tablet Take 1 mg by mouth once a day. Active hyoscyamine (ANASPAZ,LEVSIN) 0.125 mg tablet SMARTSI Tablet(s) By Mouth Twice Daily PRN 5 Active insulin lispro injection 100 units/mL vial Inject as directed 3 times daily. Active ferrous sulfate 325 mg (65 mg iron) tablet Take 325 mg by mouth. Active isosorbide mononitrate ER (IMDUR) 30 mg tablet Take 1 tablet by mouth once a day. 4 Active lisinopriL (PRINIVIL,ZESTRIL) 2.5 mg tablet 2.5 mg daily. Active metFORMIN XR (GLUCOPHAGE-XR) 750 mg 24 hr tablet SMARTSI Tablet(s) By Mouth Twice Daily 5 Active omeprazole (PriLOSEC) 40 mg capsule Take 40 mg by mouth once a day. Active sertraline (ZOLOFT) 100 mg tablet Take 100 mg by mouth once a day. Active cholecalciferol (VITAMIN D3) 2,000 unit capsule Take 1 capsule by mouth once a day. Active atorvastatin (LIPITOR) 80 mg tablet Take 80 mg by mouth. Active insulin glargine (LANTUS) injection 100 units/mL vial Inject 15 Units into the skin at bedtime. Active metoprolol succinate XL (TOPROL XL) 50 mg tablet Take 50 mg by mouth. Active traZODone (DESYREL) 50 mg tablet Take 50 mg by mouth. Active verapamil PM (VERELAN PM) 100 mg capsule Take 100 mg by mouth. 4 Active azelastine (ASTELIN) 137 mcg (0.1 %) nasal spray SMARTSI [place](s) Both Nares Twice Daily PRN 4 Active ondansetron (ZOFRAN ODT) 4 mg disintegrating tablet SMARTSI Tablet(s) By Mouth Every 8 Hours PRN 4 Active oxyCODONE IR (ROXICODONE) 10 mg tablet Take 1 Tablet by mouth. Every 6-8 hours/PRN Active loperamide (IMODIUM) 2 mg capsule Take 2 mg by mouth 4 times a day as needed for diarrhea. Active LORazepam (ATIVAN) 0.5 mg tablet Take by mouth every 6 hours as needed for anxiety. Active Hospital, Clinic, or Other Facility Administered Medication Ordered Dose Route Frequency Start Date End Date Status tranexamic acid (TXA) nasal for epistaxis 300 mg 300 mg intraderma Once 11/27/2024 11/27/2024 Ended bupivacaine PF (MARCAINE) 0.5% (5 mg/mL) injection 25 mg 25 mg intraderma Once 11/27/2024 11/27/2024 Ended lidocaine-epinephr ine (PF) 1%-1:220,000 (XYLOCAINE W/EPI) buffered injection 8 mLIndications:Basa l cell carcinoma (BCC) of forehead 8 mL intraderma One-time injection 11/27/2024 11/27/2024 Ended Active Problems No known active problems Encounters Date Type Department Care Team Description 12/01/2024 Telephone [facility] [address], [place] [address] Breaking Machine Operator: Mounika Goldman MD 11/27/2024 7:45 AM EST Procedure visit [facility] [address], [place] [address] Breaking Machine Operator: Elma Gonzalez MD Basal cell carcinoma (BCC) of forehead (Primary Dx) from Last 3 Months Social History Tobacco Use Types Packs/Day Years Used Date Smoking Tobacco: Former Cigarettes Smokeless Tobacco: Never Comments Unknown Sex and Gender Information Value Date Recorded Sex Assigned at Not on file Legal Sex Female 10:25 AM EST Gender Identity Not on file Sexual Orientation Not on file Last Filed Vital Signs Vital Sign Reading Time Taken Comments Blood Pressure 154/74 11/27/2024 8:13 AM EST Pulse 58 11/27/2024 8:13 AM EST Temperature - - Respiratory Rate - - Oxygen Saturation - - Inhaled Oxygen Concentration - - Weight - - Height - - Body Mass Index - - Plan of Treatment Health Maintenance Due Date Last Done Comments Hepatitis C Screening 1947 CT Lung Cancer Screening (Baseline) 1997 Osteoporosis Screening 1997 RSV Vaccine (60+ years old and patients) (1 - 1-dose 75+ series) 2022 COVID-19 Vaccine ( season) 2024 04/28/2022, 07/28/2021 Influenza Vaccine (#1) 2024 , 07/27/2020, 08/15/2019, Additional history exists Alcohol/Substance Use Screening 10/14/2024 Depression Screening and Follow-Up 10/14/2024 Health Care Proxy Review 10/14/2024 Social Drivers of Health Annual Screening 10/14/2024 DTaP,Tdap,and Td Vaccines (2 - Td or Tdap) 09/15/2028 09/15/2018 Pneumococcal Vaccine: 50+ Years Completed 07/27/2020, 09/18/2019, 05/29/2016 Zoster Vaccines Completed 10/08/2020, 06/15, 07/04/2020 Hepatitis B Vaccines Aged Out No long er eligible based on patient's age to complete this topic Procedures * Due to [place] [employer] law, this organization might not be sharing negative HIV tests. Procedure Name Priority Date/Time Associated Diagnosis Comments MOHS SURGERY Routine 11/27/2024 Basal cell carcinoma (BCC) of forehead from Last 3 Months Results * Due to [place] state law, this organization might not be sharing [...] infraudulent charges being submitted): Yes Nurse: Jael Mora MOA: Padmini Colon Patient Fasting?: Yes (had chewy bar) Allergies: Adhesive Tape-Silicones Clonidine Gabapentin Hydromorphone Morphine Sulfamethoxazole Sulfamethoxazole-Trimethoprim Trimethoprim Blood Thinners?: Yes Blood Thinners: Eliquis (abixiban) and ASA Joint Replacement?: Yes (Right Knee Replaced 5-6 years ago?) In the last year?: No Antibiotics Before the Dentist?: No Cautery set up:: [facility] Grounding pad site:: Left Arm Surgical [...] King MD DERM PROCEDURE ORDERABLES Final Result Performing Organization Address City/State/[facility] Co de Phone Number PROVATION from Last 3 Months Insurance [facility] Care Teams Voltage Tester Relationship Specialty Start Date End Date Sary Waite MD [address] [place], [place] [id number] PCP - General Internal Medicine 11/18/24
--- OUTSIDE RECORDS SUMMARY | 2024-12-19 08:02 | XMS_ITS | Continuity of Care Document ---
Author Organization [facility] Address [address] [place] [address] Dri ve [address] [place] [address]- Care Team Providers Care Couture Dressmaker Name Role Phone Ravindra COHN, Sary Valdez Primary Care Physician Encounter [facility] Date(s): 10/27/24 - 11/26/24 [facility] [address] [address]- Encounter Type: Triage Allergies, Adverse Reactions, Alerts Substance Criticality Severity Reaction Reaction Severity Status morphine hallucinations Activ e gabapentin hallucinations Acti ve Adhesive Bandage Rash Rash Active Bactrim Active Medications apixaban = 5 mg, Orogastric Tube, 2 times a day, 0 Refills, Maintenance, 05/05/21 8:41:00 AM EDT, Tablet, Partial fill upon patient request if the prescription is for a schedule II opioid drug. Start Date: 05/05/21 Status: Ordered Repeat number: 1 aspirin 81 mg oral enteric coated tablet 81 mg, 1, tablet, By Mouth, Daily, 0 Refills Start Date: 06/24/08 Status: Ordered Repeat number: 1 atorvastatin 80 mg oral tablet 1 tablet = 80 mg, By Mouth, Daily at bedtime, # 30 tablet, 0 Refills, Maintenance, Tablet Start Date: 06/09/18 Status: Ordered Quantity: 30.0 Unit: tablet Repeat number: 1 duloxetine 30 mg oral enteric coated capsule 1 capsule = 30 mg, By Mouth, Daily Start Date: 10/17/20 Status: Ordered Repeat number: 1 famotidine 20 mg oral tablet 20 mg, 1, tablet, By Mouth, 2 times a day, Refills 0, Maintenance, 05/05/21 8:42:00 AM EDT, Partial fill upon patient request if the prescription is for a schedule II opioid drug. Start Date: 05/05/21 Status: Ordered Repeat number: 1 folic acid 1 mg oral tablet 1 mg, 1, tablet, By Mouth, Daily Start Date: 04/23/21 Status: Ordered Repeat number: 1 glipiZIDE 5 mg oral tablet 5 mg, 1, tablet, By Mouth, 2 times a day, Refills 0, Maintenance, 09/24/18 2:47:05 PM EST Start Date: 09/24/18 Status: Ordered Repeat number: 1 lisinopril 2.5 mg oral tablet 2.5 mg, 1, tablet, By Mouth, Daily, # 30 tablet, Refills 0, Tot. Refills 0, Maintenance, 06/18/18 11:10:54 AM EDT, Print Requisition Start Date: 06/18/18 Status: Ordered Quantity: 30.0 Unit: tablet Repeat number: 1 metFORMIN 500 mg oral tablet 1 each = 500 mg, By Mouth, 2 times a day, 0 Refills, Maintenance, 05/05/21 8:42:00 AM EDT, Tablet, Partial fill upon patient request if the prescription is for a schedule II opioid drug. Start Date: 05/05/21 Status: Ordered Repeat number: 1 metoprolol 25 mg oral tablet 25 mg, 1, tablet, By Mouth, 2 times a day, Refills 0, Maintenance, 05/05/21 8:42:00 AM EDT, Partial fill upon patient request if the prescription is for a schedule II opioid drug. Start Date: 05/05/21 Status: Ordered Repeat number: 1 Mirapex 0.25 mg oral tablet 1 tablet = 0.25 mg, By Mouth, 2 times a day, PRN restless legs, 0 Refills, Maintenance, 06/09/18 2:38:13 AM EDT, Tablet Start Date: 06/09/18 Status: Ordered Repeat number: 1 SEROquel 25 mg oral tablet 50 mg, 2, tablet, By Mouth, Daily at bedtime, Refills 0, Maintenance, 05/05/21 8:42:00 AM EDT, Partial fill upon patient request if the prescription is for a schedule II opioid drug. Start Date: 05/05/21 Status: Ordered Repeat number: 1 SEROquel 25 mg oral tablet 12.5 mg, 0.5, tablet, By Mouth, 2 times a day, PRN, Refills 0, Maintenance, Anxiety, 05/05/21 8:42:00 AM EDT, Partial fill upon patient request if the prescription is for a schedule II opioid drug. Start Date: 05/05/21 Status: Ordered Repeat number: 1 traZODone 50 mg oral tablet 12.5 mg, 0.25, tablet, By Mouth, 3 times a day, PRN, Refills 0, Maintenance, Anxiety, 05/05/21 8:42:00 AM EDT, Partial fill upon patient request if the prescription is for a schedule II opioid drug. Start Date: 05/05/21 Status: Ordered Repeat number: 1 traZODone 50 mg oral tablet 50 mg, 1, tablet, By Mouth, Daily at bedtime, Refills 0, Maintenance, 09/24/18 2:48:44 PM EST Start Date: 09/24/18 Status: Ordered Repeat number: 1 verapamil 100 mg oral capsule, extended release 1 capsule = 100 mg, By Mouth, Daily at bedtime, 0 Refills, Maintenance, 08/06/18 9:15:11 AM EDT Start Date: 08/06/18 Status: Ordered Repeat number: 1 Vitamin B12 500 mcg oral tablet 1 tablet = 500 mcg, By Mouth, Daily, # 30 tablet, 0 Refills, Maintenance, 04/28/21 4:06:00 PM EDT, Tablet, Partial fill upon patient request if the prescription is for a schedule II opioid drug. Start Date: 04/28/21 Status: Ordered Quantity: 30.0 Unit: tablet Repeat number: 1 Problem List Condition Confirmation Course Effective Dates Status H ealth Status Informant Anxiety Confirmed Active Arthritis Confirmed Active Coronary atherosclerosis due to calcified coronary lesion Confirmed Active Depression Confirmed Active Diabetes mellitus Confirmed Active GERD (gastroesophageal reflux disease) Confirmed Active Hypertension Confirmed Active Insomnia Confirmed Active CAD S/P percutaneous coronary angioplasty Confirmed Active Restless leg syndrome Confirmed Active Severe obesity Confirmed Active Social History Social History Type Response Smoking Status Former smoker entered on: 06/24/18 Sex Sex Representation Female (finding) Patient Care team information Care Team Personnel Name: Ngoc Sandhu RN Position: S RN Member Role: Primary Care Nurse Name: Ravindra COHN , Sary Valdez Position: Reference Physician Member Role: PCP Address: [facility] [address] Telecom: Name: Wilfrid Jenkins RN Position: [facility] Outreach Member Role: Primary Care Nurse Name: Gina Hair RN Position: [facility] ED RN W/OE and Tasks Member Role: Primary Care Nurse Name: Anna Gutiérrez RN Position: [facility] SN RN Member Role: Primary Care Nurse Name: Catalina Montilla RN Position: [facility] RN Member Role: Primary Care Nurse Name: Lyle Wei RN Position: [facility] ED RN W/OE and Tasks Member Role: Primary Care Nurse Name: Opal Blanco RN Position: [facility] RN Member Role: Primary Care Nurse Name: Katt Wagner RN Position: [facility] SN RN Member Role: Primary Care Nurse Name: Elroy Smith RN Position: [facility] RN Member Role: Primary Care Nurse Name: Sarai Hazel RN Position: [facility] RN Member Role: Primary Care Nurse Care Team Related Persons Name: MANPREET DE JESUS Name: JUAN RAMON SHOOK Insurance Providers Guarantor name: [facility] Plan Information #: 1 Payer: LUCRETIA YAO O Member Number: NA Policy Number: NA Group Number: NA
--- OUTSIDE RECORDS SUMMARY | 2024-12-19 08:02 | XMS_ITS | Encounter Summary ---
Author Organization [facility] Address [address] [place] [address] Care Team Providers Care Crown Presser Name Role Phone Sary Waite MD Primary Care Provider [phone] Reason for Visit * Cardiac Stress Testing (Routine) - Closed Specialty Diagnoses / Procedures Referred By Contac t Referred To Contact Cardiology Diagnoses Nonrheumatic aortic valve stenosis Fung-Garcia syncope RIVAS (dyspnea on exertion) Procedures Cardiac holter monitor (<= 48 hours) AR ECG EXTERNAL UP TO 48 HOURS RECORDING AR ECG EXTERNAL < 48 HOURS CONTINUOUS RECORDING/STORAGE R&I BY A PHYS/QHP AR EXTERNAL ECG UP TO 48 HRS INCL RECORDING SCANNING ANLYS W REPORT Adolfo Hernandez MD [facility] [place] [address] Phone: tel: fax: [facility] Referral ID Status Reason Start Date Expiration Date Visits Re quested Visits Authorized [id number] Closed 11/24/2024 11/24/2025 1 1 Encounter Details Date Type Department Care Team (Latest Contact Info) Description 11/24/2024 10:00 AM EST Ancillary Procedure [facility] [address] [place] [address] Nonrheumatic aortic valve stenosis; Fung-Garcia syncope; RIVAS (dyspnea on exertion) Social [...] PM EDT documented as of this encounter Plan of Treatment Upcoming Encounters Date Type Department Care Team (Late st Contact Info) Description 12/21/2024 1:00 PM EDT Consult [facility] Cardiology [facility] [address] [place] [address] Sandro Prather MD [address] [place] [address] [address] [place] [address] 02/15/2025 2:30 PM EDT Office Visit [facility] [address] [place] [address] [address] [place] [id number] Adolfo Hernandez MD [address] [place] [address] DRIVE,[facility] [address] [place] [address] documented as of this encounter Procedures Procedure Name Priority Date/Time Associated Diagnosis Comments CARDIAC HOLTER MONITOR (REPORT GENERATED IN HOUSE) Routine 11/24/2024 3:57 PM EST Nonrheumatic aortic valve stenosis Fung-Garcia syncope RIVAS (dyspnea on exertion) documented in this encounter Results * CARDIAC HOLTER MONITOR (REPORT GENERATED IN HOUSE) (11/24/2024 3:57 PM EST) Anatomical Region Laterality Modality Cardiac Diagnost ic Narrative 11/29/2024 4:07 PM EST [facility] [address] [facility], [id number], [place] [address] TEL: FAX: Type of Test: 48 Hour Holter Monitor Date of Test: 11/24/2024 Ordering Provider: RIVAS (dyspnea on exertion), Syncope ?? Reason for Test: ?? 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 1: Normal Sinus Rhythm with [...] Rhythm with rates of 62-69 BPM. ?? us Adolfo Hernandez MD [facility] PROCEDURES Final Result documented in this encounter Visit Diagnoses Diagnosis Nonrheumatic aortic valve stenosis Fung-Garcia syncope Unspecified conduction disorder RIVAS (dyspnea on exertion) Other dyspnea and respiratory abnormality documented in this encounter Care Teams Crown Presser Relationship Specialty Start Date End Date Sary Waite MD [address] [place] [address] PCP - General 02/08/16 documented as of this encounter
--- OUTSIDE RECORDS SUMMARY | 2024-12-19 08:02 | XMS_ITS | Clinical Summary ---
Author Organization Patient Business Ser [facility] Address [address] [place] [address] Care Team Providers Care Salesperson Trailers And Motor Homes Name Role Phone Sary Waite MD Primary Care Provider [phone] Allergies Active Allergy Reactions Criticality Noted Date Comments Adhesive Tape-Silicones 11/15/2020 Tape Clonidine 09/06/2021 Gabapentin 11/16/2024 Morphine 11/16/2024 Other 11/15/2020 Bactrim [Na Ciyehmty-pvcpdpixbzzcqruv-nb imethoprim] Sulfamethoxazole 11/16/2024 Trimethoprim 11/16/2024 Medications verapamil ER (VERELAN PM) 100 mg 24 hr capsule Take 1 capsule (100 mg total) by mouth at bedtime. 90 capsule 1 08/22/20 24 Active apixaban (Eliquis) 5 mg tablet TAKE 1 TABLET BY MOUTH TWICE DAILY 180 tablet 11/12/19 25 Active acetaminophen (TYLENOL) 500 mg capsule 500 mg 2 times daily. 07/30/20 18 Active aspirin 81 mg EC tablet Take 1 Tablet by mouth daily. Active cetirizine HCl (ZYRTEC ORAL) Cetirizine HCl (ZYRTEC ALLERGY OR) Take by mouth as needed Active cholecalcifero l (VITAMIN D-3) 50 mcg (2,000 unit) capsule Take 1 capsule by mouth daily. Active clotrimazole (GYNE-LOTRIMIN 3 DAY) 2 % vaginal cream as needed. 03/29/20 19 Active FERROUS FUMARATE ORAL Take 325 mg by mouth every other day. Active folic acid (FOLVITE) 1 mg tablet Take 1 mg by mouth daily. Active insulin glargine (LANTUS) 100 unit/mL injection Inject 15 Units into the skin at bedtime. Active insulin lispro 100 unit/mL injection Inject as directed 3 times daily. Active lisinopriL (PRINIVIL,ZEST RIL) 2.5 mg tablet 2.5 mg daily. Active LORazepam (ATIVAN) 0.5 mg tablet Take 1 Tablet by mouth 2 times daily as needed. Active metoprolol succinate (TOPROL-XL) 50 mg 24 hr tablet Take 2 Tablets by mouth at bedtime. 02/12/20 23 Active omeprazole (PriLOSEC) [address] capsule Take 40 mg by mouth daily. Active oxyCODONE (ROXICODONE) 10 mg immediate release tablet Take 1 Tablet by mouth. Every 6-8 hours/PRN Active sertraline (ZOLOFT) 100 mg tablet Take 100 mg by mouth daily. Active traZODone (DESYREL) 50 mg tablet Take 1 Tablet by mouth daily. 07/30/20 18 Active cyanocobalamin (VITAMIN B-12) 50 mcg tablet Take 50 mcg by mouth daily. Active pramipexole (MIRAPEX) 0.25 mg tablet Take by mouth. Active isosorbide mononitrate (IMDUR) 30 mg 24 hr tablet TAKE 1 TABLET BY MOUTH DAILY 90 tablet 3 12/02/19 25 Active isosorbide mononitrate (IMDUR) 30 mg 24 hr tablet TAKE 1 TABLET BY MOUTH EVERY DAY 01/29/20 24 025 Discontinued pancrelipase, Gnv-Rhrc-Umds, (CREON) 24,000-76,000 -120,000 unit capsule Take 2 Capsules by mouth 4 times daily. 025 Discontinued(Th erapy completed) Active Problems Problem Noted Date Diagnosed Date Chest pain 02/08/2023 COPD (chronic obstructive pulmonary disease) Mixed hyperlipidemia 01/26/2022 Obesity 01/26/2022 Type 2 diabetes mellitus without complications 0 01/26/2022 Overview (11/16/2024): w/o skilled nursing current use of insulin Pain of right lower extremity 09/29/2021 Abdominal aortic aneurysm (AAA) without rupture 03/14/2021 Essential hypertension 03/14/2021 Nonrheumatic aortic valve stenosis 03/14/2021 Overview (11/16/2024): Last Assessment & Plan: Tressa Has borderline [...] office and the TAVR coordinators at the [facility] structural heart disease program. After all the [...] a procedure date most likely in November. Assessment & Plan (11/24/2024 1:54 PM EST): The patient has had progressive aortic stenosis which was borderline in terms of hemodynamic severity at the time of her last evaluation a couple of years ago. At that time she had a mean gradient of 26 mmHg and a dimensionless index of 0.26. She is overdue for a follow-up echocardiogram. She does have progressive breathlessness which she is minimizing as she has significantly reduced her activities in order to avoid dyspnea. A repeat echocardiogram is ordered. Orders: Cardiac holter monitor (<= 48 hours); Future Transthoracic echocardiogram (TTE) complete with PRN contrast, bubble, strain, and 3D order panel; Future Nonrheumatic mitral valve regurgitation 03/14/20 Single subsegmental pulmonar y embolism without acute cor pulmonale 03/14/2021 Encounters Date Type Department Care Team Description 12/04/2024 Telephone [facility] [address] [place] [address] Adolfo Hernandez MD pt requesting alternative to verapamil due to cost 12/04/2024 Telephone [facility] [address] [place] [address] [place] [address] Adolfo Hernandez MD pt requesting alternative for verapamil due to cost. 12/02/2024 10:00 AM EST Ancillary Procedure [facility] [address] [place] [address] Nonrheumatic aortic valve stenosis; Fung-Garcia syncope; RIVAS (dyspnea on exertion) 11/24/2024 1:00 PM EST Office Visit [facility] [address] [place] [address] Adolfo Hernandez MD Nonrheumatic aortic valve stenosis (Primary Dx); Fung-Garcia syncope; RIVAS (dyspnea on exertion) 11/24/2024 10:00 AM EST Ancillary Procedure [facility] [address] [place] [address] Nonrheumatic aortic valve stenosis; Fung-Garcia syncope; RIVAS (dyspnea on exertion) from Last 3 Months Surgical History Surgery Date Site/Laterality Comments OTHER SURGICAL HISTORY Bilateral PROCEDURE: HISTORY OTHER; COMMENT: breast reduction surgey COLONOSCOPY PROCEDURE: HISTORICAL COLONOSCOPY CORONARY ARTERY BYPASS GRAFT 2017 PROCEDURE: HISTORICAL CABG; COMMENT: x 2 OTHER SURGICAL HISTORY PROCEDURE: MO EGD PARTIAL/COMPL ESOPHAGOGASTRIC FUNDOPLASTY OTHER SURGICAL HISTORY PROCEDURE: HISTORY OTHER; COMMENT: Heart Artery Stent HYSTERECTOMY PROCEDURE: HISTORICAL HYSTERECTOMY TOTAL KNEE ARTHROPLASTY PROCEDURE: MO ARTHRP KNE CONDYLE&PLATU MEDIAL&LAT COMPARTMENTS LIPOMA RESECTION PROCEDURE: SKIN TISSUE EXCISION(LIPOMA) Medical History Medical History Date Comments Anemia DX:Anemia Arthritis DX:Arthritis Atypical migraine DX:Atypical mi graine AVM (arteriovenous malformation) of colon DX:AVM (arteriovenous malformation) of colon Barretts esophagus DX:Barretts e sophagus Bleeding hemorrhoids DX:Bleeding hemorrhoids COPD (chronic obstructive pu lmonary disease) (CMS/HCC) DX:COPD (chronic obstructive pulmonary disease) (HCC) Depression DX:Depression GERD (gastroesophageal reflux disease) DX:GERD (gastroesophageal reflux disease) GIB (gastrointestinal bleeding) DX:GIB (gastrointestinal bleeding) History of blood transfusion DX: History of blood transfusion IBS (irritable bowel syndrome) D X:IBS (irritable bowel syndrome); COMMENT: w/ both constipation and diarrhea Major depression in full rem ission (CMS/HCC) DX:Major depression in full remission ([facility]) Obesity DX:Obesity Restless leg syndrome DX:Restles s leg syndrome Transient cerebral ischemia DX:T ransient cerebral ischemia Type 2 diabetes mellitus wit hout complications (CMS/HCC) DX:Type 2 diabetes mellitus without complications ([facility]); 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: 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 Adenocarcinoma of left lung (CMS/HCC) DX:Adenocarcinoma of left lung (HCC) Family History Medical History Relation Name Comments Diabetes Aunt Lung cancer Aunt Alzheimer's disease Brother Other: substance abuse Brother Heart attack Father Hypertension Father Other: HLD Father Heart attack Mother Hypertension Mother Rheum arthritis Sister Diabetes Uncle Relation Name Status Comments Aunt Brother Father Mother Sister Uncle Social History Tobacco Use Types Packs/Day Years [...] Orientation Straight 02/18/2023 11 :05 PM EDT Obstetrics History Last Filed Vital Signs Vital Sign Reading Time Taken Comments Blood Pressure 130/80 11/24/2024 1:00 PM EST Pulse 60 11/24/2024 1:00 PM EST Temperature - - Respiratory Rate - - Oxygen Saturation 97% 11/24/2024 1:00 PM EST Inhaled Oxygen Concentration - - Weight 73.9 kg (163 lb) 12/02/2024 10:48 AM EST Height 152.4 cm (5') 12/02/2024 10:48 AM EST Body Mass Index 31.83 12/02/2024 10:48 AM EST Plan of Treatment Upcoming Encounters Date Type Department Care Team (Late st Contact Info) Description 12/21/2024 1:00 PM EDT Consult [facility] Cardiology [facility] [address] [place] [address] [address] [place] [phone] Sandro Prather MD [address] [place] [address] [address] [place] [address] 02/15/2025 2:30 PM EDT Office Visit [facility] Cardiology [facility] [address] [place] [address] [address] [place] [phone] Adolfo Hernandez MD [address] [place] [address] [address] [address] Health Maintenance Due Date Last Done Comments Diabetes: Annual GFR (Glomerular Filtration Rate) 1947 Diabetes: Annual Foot Exam 1957 Diabetes: Annual Retina Eye Exam 1955 RSV Immunization Patients 60+ Years Old (1 - 1-dose 75+ series) 2022 COVID-19 Vaccine (3 - Pfizer risk series) 05/26/2022 04/28/2022, 07/28/2021 Cholesterol Screening (Lipid Panel) 09/15/2022 Depression Screening 09/15/2022 Falls Risk Assessment 09/15/2022 Hepatitis C Screening 09/15/2022 Medicare Annual Wellness Visit 09/15/2022 Osteoporosis Screening (Bone Density Screening) 09/15/2022 Social Influencers of Health Screening 09/15/2022 Influenza Vaccine (#1) 2024 , 07/27/2020, 08/15/2019, Additional history exists Diabetes: Annual Urine Albumin-Creatinine Ratio (uACR) 11/12/2024 03/01/2022 Diabetes: Blood Sugar Control Test (HGBA1C) 11/12/2024 Hypertension/CHF/CAD Annual BMP Blood Test 11/12/2024 DTaP,Tdap,and Td Vaccines (2 - Td or Tdap) 09/15/2028 09/15/2018 Pneumococcal Vaccine: 50+ Years Completed 07/27/2020, 09/18/2019, 05/29/2016 Zoster Vaccines Completed 10/08/2020, 07/04/2020 HIB Vaccines Aged Out No longer eligi ble based on patient's age to complete this topic HPV Vaccines Aged Out No longer eligi ble based on patient's age to complete this topic Hepatitis A Vaccines Aged Out No long er eligible based on patient's age to complete this topic Hepatitis B Vaccines Aged Out No long er eligible based on patient's age to complete this topic IPV Vaccines Aged Out No longer eligi ble based on patient's age to complete this topic MMR Vaccines Aged Out No longer eligi ble based on patient's age to complete this topic Meningococcal ACWY Vaccine Aged Out N o longer eligible based on patient's age to complete this topic Meningococcal B Vacine Aged Out No lo nger eligible based on patient's age to complete this topic RSV Immunization Patients Under 20 months Aged Out No longer eligible based on patient's age to complete this topic Varicella Vaccines Aged Out No longer eligible based on patient's age to complete this topic Procedures Procedure Name Priority Date/Time Associated Diagnosis Comments TRANSTHORACIC ECHOCARDIOGRAM (TTE) COMPLETE Routine 12/02/2024 10:48 AM EST Nonrheumatic aortic valve stenosis Fung-Garcia syncope RIVAS (dyspnea on exertion) CARDIAC HOLTER MONITOR (REPORT GENERATED IN HOUSE) Routine 11/24/2024 3:57 PM EST Nonrheumatic aortic valve stenosis Fung-Garcia syncope RIVAS (dyspnea on exertion) from Last 3 Months Results * (ABNORMAL) TRANSTHORACIC ECHOCARDIOGRAM (TTE) COMPLETE (12/02/2024 10:48 AM EST) Left Atrium Minor [place] 5.8 cm CV PACS Left Atrium Major [place] 5.4 cm CV PACS LA Area Sys [...] Diagnost ic Narrative 11/29/2024 4:07 PM EST [facility] DI[facility]STIC [facility]ING DEPARTMENT [address] [place] [address], [address] [address] TEL: FAX: Type of Test: 48 Hour Holter Monitor Date of Test: 11/24/2024 Ordering Provider: RIVAS (dyspnea on exertion), Syncope ?? Reason for Test: ?? PVCA Extension Educator Findings: ?? 1: Normal Sinus Rhythm with [...] MD CV CARDIAC SERVICES PROCEDURES Final Result from Last 3 Months Insurance [employer] Advance Directives Documents on File Type Date Recorded Patient Caterer Helper Expl anation Health Care Decision (hx) 04/10/2022 AD KIDD DIRECTIVE Health Care Decision (hx) 04/10/2022 AD KIDD DIRECTIVE Health Care Decision (hx) 04/10/2022 AD KIDD DIRECTIVE Health Care Decision (hx) 04/10/2022 AD KIDD DIRECTIVE Health Care Decision (hx) 04/10/2022 AD KIDD DIRECTIVE Health Care Decision (hx) 04/10/2022 AD KIDD DIRECTIVE Care Teams Salesperson Trailers [employer] Relationship Specialty Start Date End Date Sary Waite MD [address] [place] [address] PCP - General 02/08/16
--- OUTSIDE RECORDS SUMMARY | 2024-12-19 08:02 | XMS_ITS | Referral Summary ---
Author Organization [facility] Address [address] [place] [address] Care Team Providers Care Certified Surgical First Assistant Name Role Phone Sary Waite MD Primary Care Provider Encounters Date Type Department Care Team Description 12/01/2024 Telephone [facility] [address] [address] Boat Patcher Plastic: Mounika Goldman MD 11/27/2024 7:45 AM EST Procedure visit [facility] [address] [place] [phone] Boat Patcher Plastic: Elma Gonzalez MD Basal cell carcinoma (BCC) of forehead (Primary Dx) from Last 3 Months Allergies Active Allergy Reactions Criticality Noted Date [...] 137 mcg (0.1 %) nasal spray [employer] [place](s) Both Nares Twice Daily PRN 4 Active [...] Ended Active Problems No known active problems Social History Tobacco Use Types Packs/Day Years [...] Mass Index - - Plan of Treatment Not on file Procedures * Due to [place] [employer] law, this organization might not be sharing negative HIV tests. Procedure Name Priority Date/Time Associated Diagnosis Comments MOHS SURGERY Routine 11/27/2024 Basal cell carcinoma (BCC) of forehead from Last 3 Months Results * Due to [place] [employer] law, this organization might not be sharing [...] MD DERM PROCEDURE ORDERABLES Final Result PROVATION from Last 3 Months Insurance [id number] [id number] [facility] Care Teams Certified Surgical First Assistant Relationship Specialty Start Date End Date Sary Waite MD [address] [place] [address] PCP - General Internal Medicine 11/18/24
--- OUTSIDE RECORDS SUMMARY | 2024-12-19 08:02 | XMS_ITS | Continuity of Care Document ---
Author Organization [facility]astic Sean alexa Address [address] [place] [address] [address] [place] [address]- Care Team Providers Care Client Services Director Name Role Phone Ravindra COHN, Sary Valdez Primary Care Physician En[place] [facility] [place]s): 11/12/24 - 11/19/24 [facility] Plastic Surgery [address] [place] [address]- Attending Physician: Harjinder COHN, Huseyin Knutson Referring Physician: Not on Staff, Referring MD Encounter Type: Office Visit Allergies, Adverse Reactions, Alerts Substance Criticality Severity Reaction Reaction Severity Status morphine hallucinations Activ e gabapentin hallucinations Acti ve Bactrim Active Adhesive Bandage Rash Rash Active Medications apixaban = 5 mg, Orogastric [...] syndrome Confirmed Active Severe obesity Confirmed Active Vital Signs Most recent to oldest [Reference Range]: 1 Height 151.5 cm (11/12/24 3:45 PM) Weight 94.6 kg (11/12/24 3:45 PM) Body Mass Index [18.5-24.99 kg/m2] 41.22 kg/m2 *>HHI* (11/12/24 3:45 PM) Social History Social History Type Response Smoking Status Former smoker entered on: 06/24/18 Sex Sex Representation Female (finding) Patient Care team information Care Team Personnel Name: Ngoc Sandhu RN Position: [facility] RN Member Role: Primary Care Nurse Name: Sary Waite MD Position: Reference Physician Member Role: PCP Address: [facility] [address] Telecom: Name: Wilfrid Jenkins RN Position: [facility] Outreach Member Role: Primary Care Nurse Name: Gina Hair RN Position: [facility] ED RN W/OE and Tasks Member Role: Primary Care Nurse Name: Anna Gutiérrez RN Position: [facility] SN RN Member Role: Primary Care Nurse Name: Catalina Montilla RN Position: [facility] RN Member Role: Primary Care Nurse Name: Lyle Wei RN Position: [facility] ED RN W/OE and Tasks Member Role: Primary Care Nurse Name: Opal Blanco RN Position: [facility] RN Member Role: Primary Care Nurse Name: Katt Wagner RN Position: [facility] AMB Nurse Member Role: Primary Care Nurse Name: Elroy Smith RN Position: [facility] RN Member Role: Primary Care Nurse Name: Sarai Hazel RN Position: [facility] RN Member Role: Primary Care Nurse Care Team Related Persons Name: NEAL MANPREET Name: JUAN RAMON SHOOK Insurance Providers Guarantor name: MYNOR DE JESUS Health Plan Information #: 1 Payer: [facility] Member Number: [id number] Policy Number: NA Group Number: NA Health Plan Information #: 2 Payer: [place] [facility] Member Number: [id number] Policy Number: NA Group Number: [id number]
--- OUTSIDE RECORDS SUMMARY | 2024-12-19 08:02 | XMS_ITS | Encounter Summary ---
Author Organization [facility] Address [address] [place] [address] Care Team Providers Care Dope Dry House Operator Name Role Phone Sary Waite MD Primary Care Provider [phone] Reason for Visit * Reason Onset Date Comments pt requesting alternative for verapamil due to c ost. 12/04/2024 Encounter Details Date Type Department Care Team (Late st Contact Info) Description 12/04/2024 Telephone [facility] [address] [facility] [address] [place] [address] Adolfo Hernandez MD [address] [place] [phone] pt requesting alternative for verapamil due to cost. Social History Tobacco Use Types Packs/Day Years [...] PM EDT documented as of this encounter Progress Notes * Floresita Peñaloza - 12/04/2024 2:36 PM EST Armando Bentley prescribed verapamil ER (VERELAN PM) 100 mg 1 documented in this encounter Plan of Treatment Upcoming Encounters Date Type Department Care Team (Late st Contact Info) Description 12/21/2024 1:00 PM EDT Consult [facility] Card[facility] [address] [place] [address] [address] [place] [address] Sandro Prather MD [address] [place] [address] Dr [address] [place] [address] 02/15/2025 2:30 PM EDT Office Visit [facility] [address] [place] [address] [address] [place] [address] Adolfo Hernandez MD [address] [place] [address],[address] [address] documented as of this encounter Visit Diagnoses Not on filedocumented in this encounter Care Teams Dope Dry House Operator Relationship Specialty Start Date End Date Sary Waite MD [address] [place] [address] PCP - General 02/08/16 documented as of this encounter
--- OUTSIDE RECORDS SUMMARY | 2024-12-19 08:02 | XMS_ITS | Encounter Summary ---
Author Organization [facility] Address [address] [place] [address] Care Team Providers Care Graphite Grinder Name Role Phone Sary Waite MD Primary Care Provider [phone] Reason for Visit * Imaging (Routine) - Closed Specialty Diagnoses / Procedures Referred By Kaiac cisco Referred To Contact Cardiology Diagnoses Nonrheumatic aortic valve stenosis Fung-Garcia syncope RIVAS (dyspnea on exertion) Procedures Transthoracic echocardiogram (TTE) complete with PRN contrast, bubble, strain, and 3D order panel TX TTE W 2D IMAGE COMPLETE W DOPPLER ECHO & COLOR FLOW DOPPLER ECHO TX ANNABEL 2D COMPLETE W/CONTRAST OR W & WO CONTRAST WITH DOPPLER Adolfo Hernandez MD [facility],[address] [place] [address] Phone: tel: fax: [facility] Referral ID Status Reason Start Date Expiration Date Visits Re quested Visits Authorized [id number] Closed 11/24/2024 11/24/2025 1 1 Encounter Details Date Type Department Care Team (Latest Contact Info) Description 12/02/2024 10:00 AM EST Ancillary Procedure [facility] [address] [facility] [address] [place] [address] Nonrheumatic aortic valve stenosis; Fung-Garcia syncope; RIVAS [...] Sign Reading Time Taken Comments Blood Pressure - - Pulse - - Temperature - - Respiratory Rate - - Oxygen Saturation - - Inhaled Oxygen Concentration - - Weight 73.9 kg (163 lb) 12/02/2024 10:48 AM EST Height 152.4 cm (5') 12/02/2024 10:48 AM EST Body Mass Index 31.83 12/02/2024 10:48 AM EST documented in this encounter Plan of Treatment Upcoming Encounters Date Type Department Care Team (Late st Contact Info) Description 12/21/2024 1:00 PM EDT Consult [facility] Cardiology [facility] [address] [place] [address] Dr [address] [place] [phone] Sandro Prather MD [address] [place] [address] Dr [address] [place] [address] 02/15/2025 2:30 PM EDT Office Visit [facility] Cardiology [facility] [address] [place] [address] Dr [address] [place] [phone] Adolfo Hernandez MD [address] [place] [address],[address] [address] documented as of this encounter Procedures Procedure Name Priority Date/Time Associated Diagnosis Comments TRANSTHORACIC ECHOCARDIOGRAM (TTE) COMPLETE Routine 12/02/2024 10:48 AM EST Nonrheumatic aortic valve stenosis Fung-Garcia syncope RIVAS (dyspnea on exertion) documented in this encounter Results * (ABNORMAL) TRANSTHORACIC ECHOCARDIOGRAM (TTE) COMPLETE (12/02/2024 10:48 AM EST) Left Atrium Minor [place] 5.8 cm CV PACS Left Atrium Major [place] 5.4 cm CV PACS LA Area Sys [...] MD CV ECHO PROCEDURES Final Resul t documented in this encounter Visit Diagnoses Diagnosis Nonrheumatic aortic valve stenosis Fung-Garcia syncope Unspecified conduction disorder RIVAS (dyspnea on exertion) Other dyspnea and respiratory abnormality documented in this encounter Care Teams Graphite Grinder Relationship Specialty Start Date End Date Sary Waite MD [address] [place] [address] PCP - General 02/08/16 documented as of this encounter
--- OUTSIDE RECORDS SUMMARY | 2024-12-19 08:02 | XMS_ITS | Encounter Summary ---
Author Organization [facility] Address [address] [place] [address] Care Team Providers Care Coil Builder Name Role Phone Sary Waite MD Primary Care Provider +1- [phone] Reason for Visit * Reason Onset Date Comments pt requesting alternative to verapamil due to co st 12/04/2024 Encounter Details Date Type Department Care Team (Late st Contact Info) Description 12/04/2024 Telephone [facility] Cardiology [address] [place] [phone] Adolfo Hernandez MD [address] [place] [phone] pt requesting alternative to verapamil due to cost Social History Tobacco Use Types Packs/Day Years [...] as of this encounter Progress Notes * Lucie Moncada MA - 12/04/2024 3:03 PM EST I spoke to Tressa and advised her to call the insurance company and ask for the medications in the same category as verapamil and see which one would be more cost effective for her--she agrees to do this documented in this encounter Plan of Treatment Upcoming Encounters Date Type Department Care Team (Late st Contact Info) Description 12/21/2024 1:00 PM EDT Consult [facility] Cardiology [facility] [address] [place] [address] Dr Lewis [address] [place] [phone] Sandro Prather MD [address] [place] [phone] 02/15/2025 2:30 PM EDT Office Visit [facility] [address] [place] [address] Dr Lewis [address] [place] [phone] Adolfo Hernandez MD [address] [place] [phone] documented as of this encounter Visit Diagnoses Not on filedocumented in this encounter Care Teams Coil Builder Relationship Specialty Start Date End Date Sary Waite MD [address] [place] [address] PCP - General 02/08/16 documented as of this encounter
--- OUTSIDE RECORDS SUMMARY | 2024-12-19 08:02 | XMS_ITS | Clinical Summary ---
Author Organization [facility] Facility Address [address] [address] Care Team Providers Care Supervisor Dry Cleaning Name Role Phone lEayne Waite MD Primary Care Provider +1- [phone] Allergies Active Allergy Reactions Criticality Noted Date Comments Adhesive Tape Other (see comments) 02/28/2022 Gabapentin 02/28/2022 Other reaction(s): hallucinations Morphine 02/28/2022 Other reaction(s): hallucinations Sulfamethoxazole-Tri methoprim 02/28/2022 Medications verapamil ER (VER PM) 100 MG 24 hr capsule Take 100 mg by mouth 8 Active Cholecalciferol (Vitamin D3 Super Strength) 50 MCG (1999) capsule Take by mouth Active ferrous sulfate 325 (65 Fe) MG tablet Take 325 mg by mouth 1 (one) time each day with breakfast Active acetaminophen (TYLENOL) 500 MG tablet Take by mouth every 6 (six) hours if needed for mild pain Active isosorbide mononitrate (IMDUR) 30 MG 24 hr tablet Take 30 mg by mouth 1 (one) time each day Do not crush or chew. Active aspirin 81 MG chewable tablet Chew 81 mg 1 (one) time each day Active dicyclomine (BENTYL) 20 MG tablet Take 20 mg by mouth every 6 (six) hours Active folic acid (FOLVITE) 1 MG tablet Take 1 mg by mouth 1 (one) time each day Active glipiZIDE (GLUCOTROL) 5 MG tablet Take 5 mg by mouth in the morning and 5 mg in the evening. Take before meals. Active isosorbide dinitrate (ISORDIL) 30 MG tablet Take 30 mg by mouth in the morning and 30 mg at noon and 30 mg in the evening and 30 mg before bedtime. Active omeprazole (PriLOSEC) [address] capsule Take 20 mg by mouth 1 (one) time each day Do not crush or chew. Active lisinopril 2.5 MG tablet Take 2.5 mg by mouth 1 (one) time each day Active sertraline (ZOLOFT) 100 MG tablet Take 100 mg by mouth 1 (one) time each day Active metoprolol succinate XL (TOPROL XL) 50 MG 24 hr tablet Take 50 mg by mouth 1 (one) time each day Do not crush or chew. Active atorvastatin (LIPITOR) 80 MG tablet Take 80 mg by mouth 1 (one) time each day Active traZODone (DESYREL) 50 MG tablet Take 50 mg by mouth every night Active Active Problems Problem Noted Date Diagnosed Date Anxiety 02/28/2022 Arthritis 02/28/2022 Calcific coronary arteriosclerosis 02/28/2022 Depressive disorder 02/28/2022 Diabetes mellitus 02/28/2022 Gastroesophageal reflux disease 02/28/2022 Hypertensive disorder 02/28/2022 Insomnia 02/28/2022 Recurrent coronary arteriosc lerosis after percutaneous transluminal coronary angioplasty 02/28/2022 Restless legs 02/28/2022 Family History Medical History Relation Comments Hypertension Father Hypertension Mother Relation Status Comments Father Mother Social History Tobacco Use Types Packs/Day Years Used Date Smoking Tobacco: Never Smokeless Tobacco: Never Alcohol Use Standard Drinks/Week Comments Never 0 (1 standard drink = 0.6 oz pur e alcohol) Comments Unknown Sex and Gender Information Value Date Recorded Sex Assigned at Not on file Legal Sex Female 9:46 AM EDT Gender Identity Not on file Sexual Orientation Not on file Last Filed Vital Signs Vital Sign Reading Time Taken Comments Blood Pressure 112/70 03/01/2022 2:35 PM EDT Pulse 57 03/01/2022 2:35 PM EDT Temperature - - Respiratory Rate - - Oxygen Saturation 97% 03/01/2022 2:35 PM EDT Inhaled Oxygen Concentration - - Weight 84.9 kg (187 lb 3.2 oz) 03/01/2022 2:35 P M EDT Height - - Body Mass Index - - Plan of Treatment Health Maintenance Due Date Last Done Comments Pneumococcal Vaccine: 65+ Ye ars (1 of 2 - PCV) 1951 Diabetes: Hemoglobin A1C 02/26/2022 Diabetes: Ophthalmology Exam 02/26/2022 Diabetes: Pedal Pulse Checked 02/26/2022 Diabetes: Sensory Foot Exam 02/26/2022 Diabetes: Visual Foot Exam 02/26/2022 Influenza Vaccine (#1) 2024 Hepatitis B Vaccine Aged Out No longe r eligible based on patient's age to complete this topic Insurance [employer] Care Teams Supervisor Dry Cleaning Relationship Specialty Start Date End Date Elayne Waite MD [address] [place] [address] PCP - General Internal Medicine 02/26/22
--- OUTSIDE RECORDS SUMMARY | 2024-12-19 08:02 | XMS_ITS | Continuity of Care Document ---
Author Organization [facility] alexa Address [address] [place] [address] [address] [place] [address]- Care Team Providers Care Car Rental Deliverer Name Role Phone Ravindra COHN, Sary Valdez Primary Care Physician En[place] [facility] Date(s): 11/12/24 - 12/12/24 [facility] [address] [place] [address]- Attending Physician: Jennifer Valente Admitting Physician: Jennifer Valente Referring Physician: AdmtrJennifer Encounter Type: Triage Allergies, Adverse Reactions, Alerts [...] Position: Reference Physician Member Role: PCP Address: [address] [place], [place] [address] Telecom: Name: Wilfrid Jenkins RN Position: [facility] Outreach Member Role: Primary Care Nurse Name: Gina Hair RN Position: [facility] ED RN W/OE and Tasks Member Role: Primary Care Nurse Name: Anna Gutiérrez RN Position: [facility] SN RN Member Role: Primary Care Nurse Name: Catalina Montilla RN Position: [facility] RN Member Role: Primary Care Nurse Name: Lyle Wei RN Position: [facility] ED RN W/OE and Tasks Member Role: Primary Care Nurse Name: Opal Blanco RN Position: [facility] RN Member Role: Primary Care Nurse Name: Katt Wagner RN Position: [facility] AMB Nurse Member Role: Primary Care Nurse Name: Elroy Smith RN Position: [facility] RN Member Role: Primary Care Nurse Name: Sarai Hazel RN Position: [facility] RN Member Role: Primary Care Nurse Care Team Related Persons Name: MANPREET DE JESUS Name: JUAN RAMON SHOOK Insurance Providers Guarantor name: MYNOR DE JESUS Health Plan Information #: 1 Payer: [employer] Member Number: NA Policy Number: NA Group Number: NA
[2024-12-19 11:53] LABS: MANUAL DIFF FLAG NO
[2024-12-19 12:00] LABS: Basophils Percent Auto 0.3 % (0-2); Eosinophils Absolute Auto 0.1 X10*3/uL (0.0-0.4); Eosinophils Percent Auto 1.1 % (0-4); Hematocrit 33.7 % (37.0-47.0); Hemoglobin 11.2 g/dl (12.0-16.0); Imm Gran Abs Auto 0.02 X10*3/uL (0.00-0.03); Imm Gran Pct Auto 0.3 % (0.0-0.4); Lymphocytes Absolute Auto 1.3 X10*3/uL (1.2-4.9); Lymphocytes Percent Auto 20.1 % (20-40); Mean Corpuscular HGB Conc 33.2 g/dl (31.0-35.0); Mean Corpuscular Hemoglobin 30.9 pg (27.0-33.0); Mean Corpuscular Volume 93.1 fL (80.0-98.0); Mean Platelet Volume 11.1 fL (9.4-12.3); Monocytes Absolute Auto 0.6 X10*3/uL (0.1-1.2); Monocytes Percent Auto 9.7 % (2-11); Neutrophils Absolute Auto 4.5 x10*3/uL (2.0-8.3); Neutrophils Percent Auto 68.5 % (45-73); Platelet Count 230 X10*3/uL (160-400); Red Blood Count 3.62 X10*6/uL (4.20-5.50); Red Cell Distribution Width 12.4 % (11.0-16.0); White Blood Count 6.6 X10*3/uL (4.8-10.8)
[2024-12-19 12:17] LABS: Estimated Average Glucose 220 mg/dL; Hemoglobin A1c % 9.3 % (<6.0); Total Hemoglobin (HGBA1C) 2980.7732 umol/L
[2024-12-19 12:25] LABS: Alanine Aminotransferase 18 U/L (0-31); Anion Gap 13 (12-20); Aspartate Amino Transferase 25 U/L (5-31); Blood Urea Nitrogen 20 mg/dL (9-16); Calcium 9.6 mg/dL (8.4-10.2); Carbon Dioxide 23 mmol/L (22-29); Chloride 107 mmol/L (96-108); Cholesterol 132 mg/dL (<200); Creatinine Urine 150.62 mg/dL; Estimated Glomerular Filt Rate > 60; Glucose Fasting 268 mg/dL (60-99); HDL Cholesterol 53 mg/dL (>40); Iron 76 mcg/dL (30-160); LDL Cholesterol Calculated 55 mg/dL (<100); Microalbum/Creatinine Ratio Ur 67.7 ug/mg cr (<30); Percent Iron Saturation 27 % (15-50); Potassium 3.7 mmol/L (3.3-5.1); Sodium 139 mmol/L (135-145); Total Iron Binding Capacity 286 mcg/dL (228-428); Triglycerides 121 mg/dL (<150); Unsaturated Iron Binding 210 ug/dL
[2024-12-19 12:47] LABS: Vitamin D 25-OH Total 36.9 ng/mL (>30)
== END 2024-12-19 08:00 | disposition home or self-care (01) ==
LOC: HO.HMGCLDS 07:59
PROVIDERS: PCP Internal Medicine; Visit Provider Internal Medicine Cardiovascular Disease
DX: F33.1 Major depressive disorder, recurrent, moderate (principal); Z86.711 Personal history of pulmonary embolism; E11.65 Type 2 diabetes mellitus with hyperglycemia; Z79.4 Long term (current) use of insulin; I10 Essential (primary) hypertension; E78.2 Mixed hyperlipidemia; D64.9 Anemia, unspecified
CPT/HCPCS: 36415; 80048; 80061; 82043; 82306; 82570; 83036; 83540; 84450; 84460; 85025

== ENCOUNTER 2025-01-20 10:29 | Outpatient (AMB) | payer MEDICARE, SELFPAY ==
[2025-01-20 10:34] VITALS: BP 142/74; PULSE 58; O2SAT 96; BMI 32.7
--- NOTE | 2025-01-20 10:34 | A.OFFVIS_ITS ---
Vital Signs 01/20/25 10:34 Height 5 ft Weight 167 lb 8.821 oz BMI 32.7 BP 142/74 H Blood Pressure Location Rt brachial Position Sitting Pulse 58 Pulse Source Pulse Oximeter Pulse Oximetry (%) 96 Oxygen Delivery Method Room Air Intake Visit Reasons: Type 2 DM Intake Note: Patient presents today to re-establish treatment for Type 2 Diabetes Mellitus, Last seen by DR Andre: Last Diabetic eye exam was on: OVER DUE Last Podiatry exam was on: Patient does not see a Tour Counselor Most recent HbA1c: 9.3%, 12/19/2024 Random Glucose- 180 mg/dL, Today Sintering Press Operator Required: No Accompanied by: Allergies sulfamethoxazole [From Bactrim] Allergy (Severe, Verified 11/05/24 12:59) Rash adhesive tape [ADHESIVE TAPE] Allergy (Intermediate, Verified 11/05/24 12:59) BLISTERS clonidine Allergy (Verified 11/05/24 12:59) makes pt hulusinate adhesive Adverse Reaction (Severe, Verified 11/05/24 12:59) BLISTERS gabapentin Adverse Reaction (Severe, Verified 11/05/24 12:59) hallucination hydromorphone [From Dilaudid] Adverse Reaction (Severe, Verified 11/05/24 12:59) Hallucinations morphine Adverse Reaction (Severe, Verified 11/05/24 12:59) hallucination glue Adverse Reaction (Severe, Uncoded 11/05/24 12:59) BLISTERS HPI Comments Details: 77 YO F with type 2 diabetes presenting for follow up Medical history: CAD s/p 2018, MARIBELL adenocarcinoma bony mets in remission, BCC, upcoming TAVR 01/29 Initially diagnosed with diabetes >15 years ago Was on metformin 15 yrs Received Keytruda in Sep 2022 started insulin . Episode of pancreatis april 2022 Was initially started on treatment with metformin. She was started on insulin in 2021, was on keytruda at the time. Had pancreatitis 2021 Current regimen Lantus -alternating 12 and 14 Humalog 2-10 units did not bring sliding scale She will return in 2 months-due for A1C. She is interested in alternate delivery of insulin. She is bruising a lot doing her injections. Will have her meet to discuss alternate options Per the CGM [place] -active 68% of time high 49%, high 49%, GMI 7.8%. High daytime especially after lung and dinner. Low without max hypoglycemia overnight Last A1C 12/19/24 9.3% that was up from 8.8% Treats lows with OJ . Checks sugar after to ensure it is rising. Treats according to rule of 15's. Family history of T2DM in maternal Aunt Eye exam-reports utd Denies neuropathy not sees podiatry. Denies nephropathy, on SHAMA/ARB. Has HLD, on statin. Has CAD S/P CABG . Saw perioperative educator last year ROS CONSTITUTIONAL: Denies weight loss, fever and chills. HEENT: Denies changes in vision and hearing. RESPIRATORY: Denies SOB and cough. CV: Denies palpitations and CP GI: Denies abdominal pain, nausea, vomiting and diarrhea. : Denies dysuria and urinary frequency. MSK: Denies new myalgia and joint pain. SKIN: reddened BCC excision left forearm NEUROLOGICAL: Denies headache PSYCHIATRIC: Denies recent changes in mood. PHYSICAL EXAM: GENERAL: Alert and oriented x 3. NAD EYES: EOMI. Anicteric. HENT: Moist mucous membranes. No scleral icterus. No cervical lymphadenopathy. LUNGS: Clear to auscultation bilaterally. CARDIOVASCULAR: Regular rate and rhythm. No murmur. No JVD. ABDOMEN: Soft, non-tender +bs EXTREMITIES: No edema. Non-tender. SKIN: mild purulence at BCC left forearm with some surrounding erythema and warmth NEUROLOGIC: No focal neurological deficits. CN II-XII grossly intact PSYCHIATRIC: Cooperative. Appropriate mood and affect [facility] Medical History Depression Diabetes mellitus with hyperglycemia, with long-term current use of insulin Swelling of knee joint, left Hx of sigmoidoscopy Metformin adverse reaction Adenocarcinoma of left lung (~2021) Aortic stenosis Atypical migraine Transient cerebral ischemia AVM (arteriovenous malformation) of colon Normocytic anemia Nonrheumatic mitral valve regurgitation Nonrheumatic aortic (valve) stenosis Obesity History of blood transfusion Barretts esophagus AAA (abdominal aortic aneurysm) (~2008) Bleeding hemorrhoids Anemia Arthritis On anticoagulant therapy (~10/2020) On beta ashleigh at home Pulmonary nodules Mixed dyslipidemia Vitamin B12 deficiency GIB (gastrointestinal bleeding) COPD (chronic obstructive pulmonary disease) Bilateral pulmonary embolism (~10/2020) Restless leg syndrome Irritable bowel syndrome with both constipation and diarrhea GERD without esophagitis CAD (coronary artery disease) Essential hypertension Surgical History History of lung biopsy (~2021) History of esophagogastroduodenoscopy (EGD) (~2020) History of hysterectomy History of colonoscopy (~2018) History of coronary artery bypass graft x 2 (~2017) History of total right knee replacement (TKR) (~2015) History of bilateral breast reduction surgery (~2010) S/P excision of lipoma (~2017) History of heart artery stent (~2007) Family History Father HTN (hypertension) Myocardial infarction Hyperlipidemia Abdominal aneurysm Mother HTN (hypertension) Myocardial infarction Hyperlipidemia Brother Alzheimer's disease Substance abuse Sister Rheumatoid arthritis Brother Rheumatoid arthritis Maternal Aunt Diabetes mellitus Lung cancer Maternal Uncle Diabetes mellitus Son No problems noted. Daughter No problems noted. 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/ [employer] Cognitive needs: No Hearing needs: No Vision needs: Yes Physical Exam Vital Signs: Last Vital Signs Pulse 58 01/20/25 10:34 BP 142/74 H 01/20/25 10:34 Pulse Ox 96 01/20/25 10:34 Oxygen Delivery Method Room Air 01/20/25 10:34 BMI result Body Mass Index 32.7 Results Reviewed Results Reviewed: Laboratory Last Values Glucose (Clinic) 180 mg/dL (60-115) H 01/20/25 10:40 Assessment & Plan Assessment & Plan (1) Diabetes mellitus with hyperglycemia, with long-term current use of insulin: Code(s): E11.65 - Type 2 diabetes mellitus with hyperglycemia; Z79.4 - half-way (current) use of insulin Category: Medical Qualifiers: Diabetes mellitus type: type 2 Qualified Code(s): E11.65 - Type 2 diabetes mellitus with hyperglycemia; Z79.4 - termite control servicer (current) use of insulin Plan: Increase Lantus to 14 units everyday Does not have sliding scale-advised to increase each range by 2 units. Discussed she needs to bring her sliding scale to next appt Treat any hypoglycemia with rules of 15s She will return in 2 months-due for A1C. She is interested in alternate delivery of insulin. She is bruising a lot doing her injections. Will have her meet to discuss alternate options Plan Patients BCC excision site is slightly infected. She has upcoming TAVR. Doxy x 7days sent. Follow up derm/pcp if worsening Orders: Orders TSH reflex Free T4 Today R61 - Generalized hyperhidrosis Medications: New insulin lispro (Humalog Panda KwikPen (U-100)) 1 sliding scale dose subcut USEASDIRECTD 15 mL 3RF doxycycline hyclate 100 mg PO BID 14 tabs 0RF 7 days Changed From Lantus Solostar U-100 Insulin (insulin glargine) 10 units (0.1 mL) subcut QAM 15 mL 1RF NS E11.65 - Type 2 diabetes mellitus with hyperglycemia To Lantus Solostar U-100 Insulin (insulin glargine) 14 units (0.14 mL) subcut QAM 30 mL 1RF NS E11.65 - Type 2 diabetes mellitus with hyperglycemia Coding Level of Care Code Est Pt Level 4 (08268) Complex EM visit Add On G2211 Diagnoses Type 2 diabetes mellitus with hyperglycemia, with long-term current use of insulin E11.65; Z79.4 Diabetes mellitus type: type 2
[2025-01-20 10:43] LABS: Glucose, Whole Blood 180 mg/dL (60-115)
--- OUTSIDE RECORDS SUMMARY | 2025-01-20 11:56 | XMS_ITS | Clinical Summary ---
Author Organization [facility] Facility Address [address] [address] Care Team Providers Care Window Treatment Installer Name Role Phone Elayne Waite MD Primary Care Provider +1- [phone] Allergies Active Allergy Reactions Criticality Noted Date [...] Diabetes: Visual Foot Exam 02/26/2022 Influenza Vaccine (Season Ended) 2025 Hepatitis B Vaccine Aged Out No longe r eligible based on patient's age to complete this topic Insurance [employer] Care Teams Window Treatment Installer Relationship Specialty Start Date End Date Elayne Waite MD [address] [place] [address] PCP - General Internal Medicine 02/26/22
--- OUTSIDE RECORDS SUMMARY | 2025-01-20 11:56 | XMS_ITS | Encounter Summary ---
Author Organization [facility] Address [address] [place] [address] Care Team Providers Care Tender Coordinator Name Role Phone Sary Waite MD Primary Care Provider +1- [phone] Reason for Visit * Reason Onset Date Comments pt needs labs before 04/19/25 TAVR f/[place] [facility] [place] Encounter Details Date Type Department Care Team (Late st Contact Info) Description 01/14/2025 Telephone [facility] Cardiology [facility] [address] [place] [address] [place] [phone] Sandro Prather MD [address] [place] [address] Dr [address] [place] [address] pt needs labs before 04/19/25 TAVR f/u visit with [facility] Social History Tobacco Use Types Packs/Day Years [...] encounter Progress Notes * Floresita Peñaloza - 01/14/2025 3:17 PM EDT Dot is scheduled for a TAVR follow up visit with Armando Bentley on Saturday, April 19, 2025 at 11:10 AM. Can you please arrange labs prior to her appointment? Thanks. documented in this encounter Plan of Treatment Upcoming Encounters Date Type Department Care Team (Late st Contact Info) Description 02/15/2025 2:30 PM EDT Office Visit [facility] Cardiology [facility] [address] [place] [address] Dr [address] [place] [phone] Adolfo Hernandez MD [address] [place] [address],[facility] [address] [place] [address] 02/24/2025 9:40 AM EDT Office Visit [facility] [address] [facility] [address] [place] [phone] Armando Bentley NP [address] [place] [address] Dr [address] [place] [address] 04/02/2025 11:30 AM EDT Ancillary Procedure [facility] [address] [facility] [address] [place] [phone] 04/19/2025 11:10 AM EDT Office Visit [facility] [address] [place] [phone] Armando Bentley NP [address] [place] [address] Dr [address] [place] [address] documented as of this encounter Visit Diagnoses Not on filedocumented in this encounter Care Teams Tender Coordinator Relationship Specialty Start Date End Date Sary Waite MD [address] [place] [address] PCP - General 02/08/16 documented as of this encounter
--- OUTSIDE RECORDS SUMMARY | 2025-01-20 11:56 | XMS_ITS | Clinical Summary ---
Author Organization Patient Business Ser [facility] Address [address] [place] [address] Care Team Providers Care Tennis Professional Name Role Phone Sary Waite MD Primary Care Provider Allergies Active Allergy Reactions Criticality Noted Date Comments Adhesive Tape-Silicones 11/15/2020 Tape Clonidine 09/06/2021 Gabapentin 11/16/2024 Morphine 11/16/2024 Other 11/15/2020 Bactrim [Na Jcvwbsuu-pvpfsytovktcajll-ci imethoprim] Sulfamethoxazole 11/16/2024 Trimethoprim 11/16/2024 Medications verapamil ER (VERELAN PM) 100 mg 24 hr capsule Take 1 capsule (100 mg total) by mouth at bedtime. 90 capsule 1 4 Active apixaban (Eliquis) 5 mg tablet TAKE 1 TABLET BY MOUTH TWICE DAILY 180 tablet 5 Active acetaminophen (TYLENOL) 500 mg capsule 500 mg 2 times daily. 8 Active aspirin 81 mg EC tablet Take 1 Tablet by mouth daily. Active cetirizine HCl (ZYRTEC ORAL) Cetirizine HCl (ZYRTEC ALLERGY OR) Take by mouth as needed Active cholecalciferol (VITAMIN D-3) 50 mcg (2,000 unit) capsule Take 1 capsule by mouth daily. Active clotrimazole (GYNE-LOTRIMIN 3 DAY) 2 % vaginal cream as needed. 9 Active FERROUS FUMARATE ORAL Take 325 mg by mouth every other day. Active folic acid (FOLVITE) 1 mg tablet Take 1 mg by mouth daily. Active insulin glargine (LANTUS) 100 unit/mL injection Inject 15 Units into the skin at bedtime. Active insulin lispro 100 unit/mL injection Inject as directed 3 times daily. Active lisinopriL (PRINIVIL,ZESTRI L) 2.5 mg tablet 2.5 mg daily. Active LORazepam (ATIVAN) 0.5 mg tablet Take 1 Tablet by mouth 2 times daily as needed. Active metoprolol succinate (TOPROL-XL) 50 mg 24 hr tablet Take 2 Tablets by mouth at bedtime. 3 Active omeprazole (PriLOSEC) [address] capsule Take 40 mg by mouth daily. Active oxyCODONE (ROXICODONE) 10 mg immediate release tablet Take 1 Tablet by mouth. Every 6-8 hours/PRN Active sertraline (ZOLOFT) 100 mg tablet Take 100 mg by mouth daily. Active traZODone (DESYREL) 50 mg tablet Take 1 Tablet by mouth daily. 8 Active cyanocobalamin (VITAMIN B-12) 50 mcg tablet Take 50 mcg by mouth daily. Active pramipexole (MIRAPEX) 0.25 mg tablet Take by mouth. Activ e isosorbide mononitrate (IMDUR) 30 mg 24 hr tablet TAKE 1 TABLET BY MOUTH DAILY 90 tablet 3 5 Active Active Problems Problem Noted Date Diagnosed Date Chest pain 02/08/2023 COPD (chronic obstructive pulmonary disease) Mixed hyperlipidemia 01/26/2022 Obesity 01/26/2022 Type 2 diabetes mellitus without complications 0 01/26/2022 Overview (11/16/2024): w/o rn long term care current use of insulin Pain of right [...] office and the TAVR coordinators at the [facility] structural heart disease program. After all the [...] most likely in November. Assessment & Plan (12/21/2024 1:59 PM EDT): Tressa has evidence of progressive aortic stenosis with clearly severe aortic stenosis on recent echocardiogram. Given significantly elevated transaortic valve gradients including a peak velocity of 4.5 m/s, I recommend aortic valve replacement at this time. Given her comorbidities a percutaneous approach would be highly favored. We had a discussion of the natural [...] these risks and would like to proceed. As her heart catheterization 2021 demonstrated patent bypass grafts and she has not had symptoms consistent with coronary insufficiency, I do not feel compelled to repeat the cardiac catheterization. She also had a TAVR CTA which identified good quality transfemoral access in 2021. I also do not feel that this needs to be repeated. I will refer her to Dr. Fischer to complete the evaluation process. We will review in multidisciplinary meeting and then plan to schedule the TAVR procedure. Assessment & Plan (11/24/2024 1:54 PM EST): [...] panel; Future Nonrheumatic mitral valve regurgitation 03/14/20 21 Single subsegmental pulmonar y embolism without acute cor pulmonale 03/14/2021 Encounters Date Type Department Care Team Description 01/14/2025 Telephone [facility] [address] [facility] [address] [place] [address] Sandro Prather MD pt needs labs before 04/19/25 TAVR f/u visit with [facility] 01/14/2025 Telephone [facility] Dr [facility] [address] [place] [address] Sandro Prather MD Zio Patch-[id number] 12/21/2024 1:00 PM EDT Consult [facility] [address] [place] [address] Sandro Prather MD Essential hypertension (Primary Dx); Nonrheumatic aortic valve stenosis 12/04/2024 Telephone [facility] [address] [facility] [address] [place] [address] Adolfo Hernandez MD pt requesting alternative to verapamil due to cost 12/04/2024 Telephone [facility] [address] [facility] [address] [place] [address] Adolfo Hernandez MD pt requesting alternative for verapamil due to cost. 12/02/2024 10:00 AM EST Ancillary Procedure [facility] [address] [address] Nonrheumatic aortic valve stenosis; Fung-Garcia syncope; RIVAS (dyspnea on exertion) 11/24/2024 1:00 PM EST Office Visit [facility] [address] [facility] [address] [place] [address] Adolfo Hernandez MD Nonrheumatic aortic valve stenosis (Primary Dx); Fung-Garcia syncope; RIVAS (dyspnea on exertion) 11/24/2024 10:00 AM EST Ancillary Procedure [facility] [address] [address] Nonrheumatic aortic valve stenosis; Fung-Garcia syncope; RIVAS (dyspnea on exertion) from Last 3 Months Surgical History Surgery Date Site/Laterality Comments OTHER SURGICAL HISTORY Bilateral PROCEDURE: HISTORY OTHER; COMMENT: breast reduction surgey COLONOSCOPY PROCEDURE: HISTORICAL COLONOSCOPY CORONARY ARTERY BYPASS GRAFT 2018 PROCEDURE: HISTORICAL CABG; COMMENT: x 2 OTHER SURGICAL HISTORY PROCEDURE: WI EGD PARTIAL/COMPL ESOPHAGOGASTRIC FUNDOPLASTY OTHER SURGICAL HISTORY PROCEDURE: HISTORY OTHER; COMMENT: Heart Artery Stent HYSTERECTOMY PROCEDURE: HISTORICAL HYSTERECTOMY TOTAL KNEE ARTHROPLASTY PROCEDURE: WI ARTHRP KNE CONDYLE&PLATU MEDIAL&LAT COMPARTMENTS LIPOMA RESECTION PROCEDURE: SKIN TISSUE EXCISION(LIPOMA) Medical History Medical History Date Comments Anemia DX:Anemia Arthritis DX:Arthritis Atypical migraine DX:Atypical mi graine AVM (arteriovenous malformation) of colon DX:AVM (arteriovenous malformation) of colon Barretts esophagus DX:Barretts e sophagus Bleeding hemorrhoids DX:Bleeding hemorrhoids COPD (chronic obstructive pu lmonary disease) ([facility]) DX:COPD (chronic obstructive pulmonary disease) (HCC) Depression DX:Depression GERD (gastroesophageal reflux disease) DX:GERD (gastroesophageal reflux disease) GIB (gastrointestinal bleeding) DX:GIB (gastrointestinal bleeding) History of blood transfusion DX: History of blood transfusion IBS (irritable bowel syndrome) D X:IBS (irritable bowel syndrome); COMMENT: w/ both constipation and diarrhea Major depression in full rem ission ([facility]) DX:Major depression in full remission ([facility]) Obesity DX:Obesity Restless leg syndrome DX:Restles s leg syndrome Transient cerebral ischemia DX:T ransient cerebral ischemia Type 2 diabetes mellitus wit hout complications DX:Type 2 diabetes mellitus without complications ([facility]); COMMENT: w/o rn long term care current use of insulin Adenocarcinoma of left lung ([facility]) DX:Adenocarcinoma of left lung ([facility]) Family History Medical History Relation Name Comments Diabetes Aunt Lung cancer Aunt Alzheimer's disease Brother Other: substance abuse Brother Heart attack Father Hypertension Father Other: HLD Father Heart attack Mother Hypertension Mother Rheum arthritis Sister Diabetes Uncle Relation Name Status Comments Aunt Brother Father Mother Sister Uncle Social History Tobacco Use Types Packs/Day Years Used Date Smoking Tobacco: Former Cigarettes Smokeless Tobacco: Never Tobacco Cessation:Counseling Given: Not Answered Alcohol Use Standard Drinks/Week Comments Yes 0 [...] Sign Reading Time Taken Comments Blood Pressure 148/70 12/21/2024 12:55 PM EDT Pulse 58 12/21/2024 12:55 PM EDT Temperature - - Respiratory Rate - - Oxygen Saturation 94% 12/21/2024 12:55 PM EDT Inhaled Oxygen Concentration - - Weight 75.8 kg (167 lb) 12/21/2024 12:55 PM EDT Height 152.4 cm (5') 12/21/2024 12:55 PM EDT Body Mass Index 32.61 12/21/2024 12:55 PM EDT Plan of Treatment Upcoming Encounters Date Type Department Care Team (Late st Contact Info) Description 02/15/2025 2:30 PM EDT Office Visit [facility] [address] [place] [phone] Adolfo Hernandez MD [address] [place] [address],[address] [place] [address] 02/24/2025 9:40 AM EDT Office Visit [facility] [address] [place] [phone] Armando Bentley NP [address] [place] [address] [address] [place] [address] 04/02/2025 11:30 AM EDT Ancillary Procedure [facility] [address] [place] [address] 04/19/2025 11:10 AM EDT Office Visit [facility] [address] [place] [address] Armando Bentley, ZAC [address] [place] [address] [address] [place] [address] Health Maintenance Due Date Last Done Comments Diabetes: Annual GFR (Glomerular Filtration Rate) 1947 Diabetes: Annual Foot Exam 1957 Diabetes: Annual Retina Eye Exam 1955 RSV Immunization Adult Patients (1 - 1-dose 75+ series) 2022 COVID-19 Vaccine (3 - Pfizer risk series) 05/26/2022 04/28/2022, 07/28/2021 Cholesterol Screening (Lipid Panel) 09/15/2022 Depression Screening 09/15/2022 Falls Risk Assessment 09/15/2022 Hepatitis C Screening 09/15/2022 Medicare Annual Wellness Visit 09/15/2022 Osteoporosis Screening (Bone Density Screening) 09/15/2022 Social Influencers of Health Screening 09/15/2022 Diabetes: Annual Urine Albumin-Creatinine Ratio (uACR) 11/12/2024 03/01/2022 Diabetes: Blood Sugar Control Test (HGBA1C) 11/12/2024 Hypertension/CHF/CAD Annual BMP Blood Test 11/12/2024 Influenza Vaccine (Season Ended) 2025 07/28/2021, 07/27/2020, 08/15/2019, Additional history exists DTaP,Tdap,and Td Vaccines (2 - Td or [...] age to complete this topic Meningococcal B Vaccine Aged Out No l onger eligible based on patient's age to complete [...] (12/02/2024 10:48 AM EST) Left Atrium Minor [place] 5.8 cm CV PACS Left Atrium Major [place] 5.4 cm CV PACS LA Area Sys [...] Diagnost ic Narrative 11/29/2024 4:07 PM EST [facility] DIAGNOSTIC TESTING DEPARTMENT [address] [place] [address] TEL: FAX: Type of Test: 48 Hour Holter Monitor Date of Test: 11/24/2024 Ordering Provider: RIVAS (dyspnea on exertion), Syncope ?? Reason for Test: ?? PVCA Case Monitor Findings: ?? 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
--- OUTSIDE RECORDS SUMMARY | 2025-01-20 11:56 | XMS_ITS | Encounter Summary ---
Author Organization [facility] Address [address] [place] [address] Care Team Providers Care Lead Advisor Name Role Phone Sary Waite MD Primary Care Provider [phone] Reason for Visit * Reason Onset Date Comments Zio Patch-[id number] 01/14/2025 Encounter Details Date Type Department Care Team (Late Contact Info) Description 01/14/2025 Telephone [facility] [address] [place] [phone] Sandro Prather MD [address] [place] [address] [address] [place] [address] Zio Patch-[id number] Social History Tobacco Use Types Packs/Day Years [...] as of this encounter Progress Notes * Monica Kirby - 01/14/2025 12:01 PM EDT Review for medical necessity for cpt code: [id number] submitted to [employer]. documented in this encounter Plan of Treatment Upcoming Encounters Date Type Department Care Team (Late st Contact Info) Description 02/15/2025 2:30 PM EDT Office Visit [facility] [address] [facility] [address] [place] [address] Adolfo Hernandez MD [address] [place] [address],[address] [place] [address] 02/24/2025 9:40 AM EDT Office Visit [facility] [address] [place] [address] Armando Bentley NP [address] [place] [address] [address] [place] [address] 04/02/2025 11:30 AM EDT Ancillary Procedure [facility] [address] [place] [address] 04/19/2025 11:10 AM EDT Office Visit [facility] [address] [place] [address] Armando Bentley NP [address] [place] [address] [address] [place] [address] documented as of this encounter Visit Diagnoses Not on filedocumented in this encounter Care Teams Lead Advisor Relationship Specialty Start Date End Date Sary Waite MD [address] [place] [address] PCP - General 02/08/16 documented as of this encounter
--- OUTSIDE RECORDS SUMMARY | 2025-01-20 11:56 | XMS_ITS | Clinical Summary ---
Author Organization [facility] Address [address] [place] [address] Care Team Providers Care Machine Operator Hop Worker Name Role Phone Sary Waite MD Primary [...] 137 mcg (0.1 %) nasal spray SMARTSI [place](s) Both Nares Twice Daily PRN 4 Active [...] 6 hours as needed for anxiety. Active Active Problems No known active problems Encounters Date Type Department Care Team Description 12/01/2024 Telephone [facility] [address] [address] Rail Transit Operator: Mounika Goldman MD 11/27/2024 7:45 AM EST Procedure visit [facility] 4th Floor [address] [place] [phone] Rail Transit Operator: Elma Gonzalez MD Basal cell carcinoma [...] COVID-19 Vaccine ( season) 2024 04/28/2022, 07/28/2021 Alcohol/Substance Use Screening 10/14/2024 Depression Screening and Follow-Up 10/14/2024 Health Care Proxy Review 10/14/2024 Social Drivers of Health Annual Screening 10/14/2024 Influenza Vaccine (Season Ended) 2025 07/28/2021, 07/27/2020, 08/15/2019, Additional history exists DTaP,Tdap,and Td Vaccines (2 - Td or Tdap) 09/15/2028 09/15/2018 Pneumococcal Vaccine: 50+ Years Completed 07/27/2020, 09/18/2019, 05/29/2016 Zoster Vaccines Completed 10/08/2020, 06/15, 07/04/2020 Hepatitis B Vaccines Aged Out No long er eligible based on patient's age to complete this topic Procedures * Due to [place] [employer] law, this organization might not be sharing negative HIV tests. Procedure Name Priority Date/Time Associated Diagnosis Comments MOHS SURGERY Routine 11/27/2024 Basal cell carcinoma (BCC) of forehead from Last 3 Months Results * Due to [place] [employer] law, this organization might not be sharing [...] infraudulent charges being submitted): Yes Nurse: Jael AGUIRREA: [...] and Patient discharged in good condition us Emla King MD DERM PROCEDURE ORDERABLES Final Result PROVATION from Last 3 Months Insurance [facility] Care Teams Machine Operator Hop Worker Relationship Specialty Start Date End Date Sary Waite MD [address] [place] [address] PCP - General Internal Medicine 11/18/24
--- OUTSIDE RECORDS SUMMARY | 2025-01-20 11:56 | XMS_ITS | Referral Summary ---
Author Organization [facility] Address [address] [place] [address] Care Team Providers Care Grounds Maintenance Worker Name Role Phone Sary Waite MD Primary Care Provider Encounters Date Type Department Care Team Description 12/01/2024 Telephone [facility] [address] [address] Poultry Farmer Meat: Mounika Goldman MD 11/27/2024 7:45 AM EST Procedure visit [facility] [address] [place] [address] Poultry Farmer Meat: Elma Gonzalez MD Basal cell carcinoma (BCC) [...] 137 mcg (0.1 %) nasal spray SMARTSI [place](s) Both Nares Twice Daily PRN 4 Active [...] Active Active Problems No known active problems Social [...] Not on file Procedures * Due to [place] [employer] law, this organization might not be sharing negative HIV tests. Procedure Name Priority Date/Time Associated Diagnosis Comments MOHS SURGERY Routine 11/27/2024 Basal cell carcinoma (BCC) of forehead from Last 3 Months Results * Due to [place] [employer] law, this organization might not be sharing [...] Before the Dentist?: No Cautery set up:: [facility] Grounding pad site:: Left Arm Surgical [...] Result PROVATION from Last 3 Months Insurance [facility] Care Teams Grounds Maintenance Worker Relationship Specialty Start Date End Date Sary Waite MD [address] [place] [address] PCP - General Internal Medicine 11/18/24
== END 2025-01-20 11:17 | disposition home or self-care (01) ==
LOC: HO.ENCR 10:30
PROVIDERS: PCP Internal Medicine; Visit Provider Internal Medicine
DX: E11.65 Type 2 diabetes mellitus with hyperglycemia (principal); Z79.4 Long term (current) use of insulin

== ENCOUNTER → 2025-01-20 10:29 | Outpatient (BNVA) | payer MEDICARE, SELFPAY | PROVIDERS: PCP Internal Medicine; Visit Provider Internal Medicine | DX: E11.65 Type 2 diabetes mellitus with hyperglycemia (principal); Z79.4 Long term (current) use of insulin | CPT/HCPCS: 82947; 99212 ==

== ENCOUNTER 2025-02-03 14:50 | Outpatient (AMB) | payer MEDICARE, SELFPAY ==
--- NOTE | 2025-02-03 15:49 | A.OFFVIS_ITS ---
Intake Intake Visit Reasons: Discuss insulin pump or device Field Crop Farm Worker Required: No Accompanied by: Self / Same As Patient Allergies sulfamethoxazole [From Bactrim] Allergy (Severe, Verified 11/05/24 12:59) Rash adhesive tape [ADHESIVE TAPE] Allergy (Intermediate, Verified 11/05/24 12:59) BLISTERS clonidine Allergy (Verified 11/05/24 12:59) makes pt hulusinate adhesive Adverse Reaction (Severe, Verified 11/05/24 12:59) BLISTERS gabapentin Adverse Reaction (Severe, Verified 11/05/24 12:59) hallucination hydromorphone [From Dilaudid] Adverse Reaction (Severe, Verified 11/05/24 12:59) Hallucinations morphine Adverse Reaction (Severe, Verified 11/05/24 12:59) hallucination glue Adverse Reaction (Severe, Uncoded 11/05/24 12:59) BLISTERS HPI Comprehensive Diabetes Asmnt Most Recent Diabetes Results: Hemoglobin A1c 6.6 % 06/29/20 Microalb/Creat Ratio 67.7 ug/mg cr (<30) H 12/19/24 Cholesterol 132 mg/dL (<200) 12/19/24 HDL Cholesterol 53 mg/dL (>40) 12/19/24 Triglycerides 121 mg/dL (<150) 12/19/24 Creatinine 0.81 mg/dL (0.5-1.4) 12/19/24 Blood Urea Nitrogen 20 mg/dL (9-16) H 12/19/24 Sodium 139 mmol/L (135-145) 12/19/24 Potassium 3.7 mmol/L (3.3-5.1) 12/19/24 Chloride 107 mmol/L (96-108) 12/19/24 Carbon Dioxide 23 mmol/L (22-29) 12/19/24 Calcium 9.6 mg/dL (8.4-10.2) 12/19/24 AST 25 U/L (5-31) 12/19/24 ALT 18 U/L (0-31) 12/19/24 Total Protein 7.1 g/dL (6.5-8.0) 10/19/24 Albumin 4.1 g/dL (3.5-5.0) 10/19/24 [facility] Medical History Depression Diabetes mellitus with hyperglycemia, with long-term current use of insulin Swelling of knee joint, left Hx of sigmoidoscopy Metformin adverse reaction Adenocarcinoma of left lung (~2021) Aortic stenosis Atypical migraine Transient cerebral ischemia AVM (arteriovenous malformation) of colon Normocytic anemia Nonrheumatic mitral valve regurgitation Nonrheumatic aortic (valve) stenosis Obesity History of blood transfusion Barretts esophagus AAA (abdominal aortic aneurysm) (~2008) Bleeding hemorrhoids Anemia Arthritis On anticoagulant therapy (~10/2020) On beta ashleigh at home Pulmonary nodules Mixed dyslipidemia Vitamin B12 deficiency GIB (gastrointestinal bleeding) COPD (chronic obstructive pulmonary disease) Bilateral pulmonary embolism (~10/2020) Restless leg syndrome Irritable bowel syndrome with both constipation and diarrhea GERD without esophagitis CAD (coronary artery disease) Essential hypertension Surgical History History of lung biopsy (~2021) History of esophagogastroduodenoscopy (EGD) (~2020) History of hysterectomy History of colonoscopy (~2018) History of coronary artery bypass graft x 2 (~2017) History of total right knee replacement (TKR) (~2015) History of bilateral breast reduction surgery (~2010) S/P excision of lipoma (~2017) History of heart artery stent (~2007) Family History Father HTN (hypertension) Myocardial infarction Hyperlipidemia Abdominal aneurysm Mother HTN (hypertension) Myocardial infarction Hyperlipidemia Brother Alzheimer's disease Substance abuse Sister Rheumatoid arthritis Brother Rheumatoid arthritis Maternal Aunt Diabetes mellitus Lung cancer Maternal Uncle Diabetes mellitus Son No problems noted. Daughter No problems noted. 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/ [employer] Cognitive needs: No Hearing needs: No Vision needs: Yes Assessment & Plan Assessment & Plan (1) Diabetes mellitus with hyperglycemia, with long-term current use of insulin: Code(s): E11.65 - Type 2 diabetes mellitus with hyperglycemia; Z79.4 - termite inspector (current) use of insulin Qualifiers: Diabetes mellitus type: type 2 Qualified Code(s): E11.65 - Type 2 diabetes mellitus with hyperglycemia; Z79.4 - correction (current) use of insulin Plan: Pt at visit for CeQue Simplicity information Showed patient CeQue insulin delivery patch Demonstrated for patient how to fill syringe from vial, and insert, needle to fill patch Then remove air bubbles from patch, by viewing through clear window below blue cap To prime patch after air bubble has been removed proceed with 4 clicks Apply placed sticker, to patch, count forward 4 days Instructed patient to be sure to rotate patch regularly Demonstrated how to insert patch Instructed patient not to unlock green button until hotel clerk is against prepared site . Be cautious of exposed needle, check to make sure needle is not bent Please patch on your body, slide yellow safety and press green button down Press hotel clerk firmly for 10 seconds, remove hotel clerk by lifting it away To remove needle squeeze clear sides of registered diet technician at the base Discard needle in sharps container Press down firmly on patch with palm of your hand for 10 seconds Be sure to rotate patch regularly 1 click equals 2 units rapid acting insulin Patient is concerned that process of inserting patches 2 complicated Reviewed with patient how to properly prepare and administer insulin with insulin pen Patient given sample of BD Kerri needles to see if this alleviates pain and bruising, also discussed rotating injections to different injection sites. Message sent to provider to send prescription for [place] 3+ reader and sensors, patient would benefit from upgrading to sensor that does not need to be scanned Patient will contact guest relations officer with questions or concerns, patient will call for appointment sensors Portions of this note were created using voice recognition software, please excuse any words or phrases that may have been misinterpreted. Coding Level of Care Code Est Pt Level 1 (92415) Diagnoses Type 2 diabetes mellitus with hyperglycemia, with long-term current use of insulin E11.65; Z79.4 Diabetes mellitus type: type 2
--- OUTSIDE RECORDS SUMMARY | 2025-02-03 17:42 | XMS_ITS | Clinical Summary ---
Author Organization Patient Business Ser [facility] Address [address] [place] [address] Care Team Providers Care Upholsterer Apprentice Name Role Phone Sary Waite MD Primary Care Provider Allergies Active Allergy Reactions Criticality Noted Date Comments Adhesive Tape-Silicones 11/15/2020 Tape Clonidine 09/06/2021 Gabapentin 11/16/2024 Morphine 11/16/2024 Other 11/15/2020 Bactrim [Na Ecwofuce-yvjpjbdoxozspxis-ar imethoprim] Sulfamethoxazole 11/16/2024 Trimethoprim 11/16/2024 Medications verapamil [...] Date Chest pain 02/08/2023 COPD (chronic obstructive pu lmonary disease) ([facility] V24, [facility] V28) 01/26/2022 Mixed hyperlipidemia 01/26/2022 Obesity 01/26/2022 Type 2 diabetes mellitus wit hout complications ([facility] V24, [facility] V28) 01/26/2022 Overview (11/16/2024): w/o alf current use of insulin Pain of right lower extremity 09/29/2021 Abdominal aortic aneurysm (A AA) without rupture ([facility] V24) 03/14/2021 Essential hypertension 03/14/2021 Nonrheumatic aortic valve [...] office and the TAVR coordinators at the [facility] structural heart disease program. After all [...] pulmonar y embolism without acute cor pulmonale (CMS/HCC V24, CMS/HCC V28) 03/14/2021 Encounters Date Type Department Care Team Description 01/29/2025 Telephone [facility] Cardiology [facility] [address] [place] [address] Natalia Freedman NP 01/14/2025 Telephone [facility] Cardiology [facility] - [address] [place] [address] Sandro Prather MD pt needs labs before 04/19/25 [facility] f/[place] [facility] 01/14/2025 [address]phone [facility] [address] [address] [place] [address] Sandro Prather MD o Patch-[id number] (ok to book) 12/21/2024 1:00 PM EDT Consult [facility] [address] [place] [phone] Sandro Prather MD Essential hypertension (Primary Dx); Nonrheumatic aortic valve stenosis 12/04/2024 [address]phone [facility] [address] [place] [phone] Adolfo Hernandez MD pt requesting alternative to verapamil due to cost 12/04/2024 [address] [facility] [address] [place] [phone] Adolfo Hernandez MD pt requesting alternative for verapamil due to cost. 12/02/2024 10:00 AM EST Ancillary Procedure [facility] [address] [place] [address] Nonrheumatic aortic valve stenosis; Fung-Garcia syncope; RIVAS (dyspnea on exertion) 11/24/2024 1:00 PM EST Office Visit [facility] [address] [place] [address] Adolfo Hernandez MD Nonrheumatic aortic valve stenosis (Primary Dx); Fung-Garcia syncope; RIVAS (dyspnea on exertion) 11/24/2024 10:00 AM EST Ancillary Procedure [facility] [address] [place] [address] Nonrheumatic aortic valve stenosis; Fung-Garcia syncope; RIVAS (dyspnea on exertion) from Last 3 Months Surgical History Surgery Date Site/Laterality Comments OTHER SURGICAL HISTORY Bilateral PROCEDURE: HISTORY OTHER; COMMENT: breast reduction surgey COLONOSCOPY PROCEDURE: HISTORICAL COLONOSCOPY CORONARY ARTERY BYPASS GRAFT 2018 PROCEDURE: HISTORICAL CABG; COMMENT: x 2 OTHER SURGICAL HISTORY PROCEDURE: [place] EGD PARTIAL/COMPL ESOPHAGOGASTRIC FUNDOPLASTY OTHER SURGICAL HISTORY PROCEDURE: HISTORY OTHER; COMMENT: Heart Artery Stent HYSTERECTOMY PROCEDURE: HISTORICAL HYSTERECTOMY TOTAL KNEE ARTHROPLASTY PROCEDURE: [place] ARTHRP KNE CONDYLE&PLATU MEDIAL&LAT COMPARTMENTS LIPOMA RESECTION PROCEDURE: SKIN TISSUE EXCISION(LIPOMA) Medical History Medical History Date Comments Anemia DX:Anemia Arthritis DX:Arthritis Atypical migraine DX:Atypical mi graine AVM (arteriovenous malformation) of colon DX:AVM (arteriovenous malformation) of colon Barretts esophagus DX:Barretts e sophagus Bleeding hemorrhoids DX:Bleeding hemorrhoids COPD (chronic obstructive pu lmonary disease) ([facility] V24, [facility] V28) DX:COPD (chronic o bstructive pulmonary disease) ([facility]) Depression DX:Depression GERD (gastroesophageal reflux disease) DX:GERD (gastroesophageal reflux disease) GIB (gastrointestinal bleeding) DX:GIB (gastrointestinal bleeding) History of blood transfusion DX: History of blood transfusion IBS (irritable bowel syndrome) D X:IBS (irritable bowel syndrome); COMMENT: w/ both constipation and diarrhea Major depression in full rem ission ([facility] V24) DX:Major depression in full remission ([facility]) Obesity DX:Obesity Restless leg syndrome DX:Restles s leg syndrome Transient cerebral ischemia DX:T ransient cerebral ischemia Type 2 diabetes mellitus wit hout complications ([facility] V24, [facility] V28) DX:Type 2 bo betes mellitus without complications ([facility]); COMMENT: w/o development representative current use of insulin Adenocarcinoma of left lung ([facility] V24, [facility] V28) DX:Adenocarcinoma of left marce ng ([facility]) Family History Medical History Relation Name Comments [...] Care Team (Late st Contact Info) Description 02/17/2025 9:40 AM EDT Office Visit [facility] [address] [place] [address] Armando Bentley NP [address] [place] [address] [address] [place] [address] 02/24/2025 3:00 PM EDT Ancillary Procedure [facility] Cardiology [facility] [address] [place] [address] 04/02/2025 11:30 AM EDT Ancillary Procedure [facility] Cardiology [facility] [address] [place] [address] 04/07/2025 10:40 AM EDT Office Visit [facility] [address] [place] [address] Armando Bentley NP [address] [place] [address] [address] [place] [address] Health Maintenance Due Date Last Done Comments [...] EST Nonrheumatic aortic valve stenosis Fung-Garcia syncope RVIAS (dyspnea on exertion) from Last 3 Months Results * (ABNORMAL) TRANSTHORACIC ECHOCARDIOGRAM (TTE) COMPLETE (12/02/2024 10:48 AM EST) Left Atrium Minor [place] 5.8 cm CV PACS Left Atrium Major [place] 5.4 cm CV PACS [place] Area Sys [...] Diagnost ic Narrative 11/29/2024 4:07 PM EST [facility] DEPARTMENT [address] [id number], [place] [address] TEL: FAX: Type of Test: 48 Hour Holter Monitor Date of Test: 11/24/2024 Ordering Provider: RIVAS (dyspnea on exertion), Syncope ?? Reason for Test: ?? [facility] [employer] Findings: ?? 1: Normal Sinus Rhythm with [...] Documents on File Type Date Recorded Patient Political Science Faculty Member Expl anation Health Care Decision (hx) 04/10/2022 AD KIDD DIRECTIVE Health Care Decision (hx) 04/10/2022 AD KIDD DIRECTIVE Health Care Decision (hx) 04/10/2022 AD KIDD DIRECTIVE Health Care Decision (hx) 04/10/2022 AD KIDD DIRECTIVE Health Care Decision (hx) 04/10/2022 AD KIDD DIRECTIVE Health Care Decision (hx) 04/10/2022 AD KIDD DIRECTIVE Care Teams Upholsterer Apprentice Relationship Specialty Start Date End Date Sary Waite MD [address] [place] [address] PCP - General 02/08/16
--- OUTSIDE RECORDS SUMMARY | 2025-02-03 17:42 | XMS_ITS | Clinical Summary ---
Author Organization [facility] Facility Address [address] [address] Care Team Providers Care Conciliator Name Role Phone Elayne Waite MD Primary Care Provider [phone] Allergies Active Allergy Reactions Criticality Noted Date [...] Due Date Last Done Comments Pneumococcal Vaccine: 50+ Ye ars (1 of 2 - PCV) 1964 Diabetes: Hemoglobin A1C 02/26/2022 Diabetes: Ophthalmology Exam 02/26/2022 Diabetes: Pedal Pulse Checked 02/26/2022 Diabetes: Sensory Foot Exam 02/26/2022 Diabetes: Visual Foot Exam 02/26/2022 Influenza Vaccine (Season Ended) 2025 Hepatitis B Vaccine Aged Out No longe r eligible based on patient's age to complete this topic Insurance [employer] Medicare [employer] Medicare Care Teams Conciliator Relationship Specialty Start Date End Date Elayne Waite MD [address] [place] [address] PCP - General Internal Medicine 02/26/22
--- OUTSIDE RECORDS SUMMARY | 2025-02-03 17:42 | XMS_ITS | Continuity of Care Document ---
Author Organization [facility] ter Address [address] [place] [id number] Care Team Providers Care Fixed Income Director Name Role Phone Ravindra COHN, Sary Valdez Primary Care Physician [place] [facility] [id number] Date(s): 01/28/25 - 01/30/[address] [address]- Discharge Disposition: A-D/C Home Attending Physician: Shad Fischer MD Admitting Physician: Shad Fischer MD Referring Physician: Sandro Prather MD Encounter Type: Disch IP Allergies, Adverse Reactions, Alerts Substance Criticality Severity Reaction Reaction Severity Status morphine hallucinations Activ e gabapentin hallucinations Acti ve Bactrim 1 Rash Active Adhesive Bandage Rash Rash Active HYDROmorphone Hallucinations A ctive cloNIDine Hallucinations Activ e 1feet and legs rash Medications apixaban = 5 mg, By Mouth, 2 times a day, [...] Quantity: 30.0 Unit: tablet Repeat number: 1 CBC and BMP one week post discharge CBC and BMP one week post discharge, See Instructions, # 1 each, Refills 0, Tot. Refills 0, Maintenance, ., 01/30/25 10:40:00 AM EDT, Supply Start Date: 01/30/25 Status: Ordered Quantity: 1.0 Unit: each Repeat number: 1 folic acid 1 mg oral tablet 1 mg, 1, tablet, By Mouth, Daily Start Date: 04/23/21 Status: Ordered Repeat number: 1 hyoscyamine 0.125 mg oral tablet 0.125 mg, 1, tablet, By Mouth, 2 times a day, Refills 0, Maintenance, 01/19/25 3:28:00 PM EDT, Partial fill upon patient request if the prescription is for a schedule II opioid drug. Start Date: 01/19/25 Status: Ordered Repeat number: 1 isosorbide mononitrate 30 mg oral tablet, extended release 1 tablet = 30 mg, By Mouth, Daily in AM, 0 Refills, Maintenance, 01/19/25 3:36:00 PM EDT, Partial fill upon patient request if the prescription is for a schedule II opioid drug. Start Date: 01/19/25 Status: Ordered Repeat number: 1 Lantus Solostar Pen 100 units/mL subcutaneous solution See Instructions, Inject 12 units and alternate with 14 units every other day., 0 Refills, Maintenance, 01/19/25 3:34:00 PM EDT, Partial fill upon patient request if the prescription is for a schedule II opioid drug. Start Date: 01/19/25 Status: Ordered Repeat number: 1 lisinopril 2.5 mg oral tablet 2.5 mg, 1, tablet, By Mouth, Daily, # 30 tablet, Refills 0, Tot. Refills 0, Maintenance, 06/18/18 11:10:54 AM EDT, Print Requisition Start Date: 06/18/18 Status: Ordered Quantity: 30.0 Unit: tablet Repeat number: 1 lisinopril 5 mg oral tablet 2.5 mg, Tablet, By Mouth, Hold for: SBP<110, 01/30/25 9:00:00 AM EDT Start Date: 01/30/25 Stop Date: 01/30/25 Status: Completed Repeat number: 1 loperamide 2 mg oral capsule 2 mg, 1, capsule, By Mouth, Every 4 hours, PRN, # 60 capsule, Refills 0, Maintenance, for loose stool, 01/28/25 10:07:00 AM EDT, Partial fill upon patient request if the prescription is for a scheduleII opioid drug. Start Date: 01/28/25 Status: Ordered Quantity: 60.0 Unit: capsule Repeat number: 1 LORazepam 0.5 mg oral tablet 1 tablet = 0.5 mg, By Mouth, Daily, PRN as needed for anxiety, 0 Refills, Maintenance, 01/19/25 3:31:00 PM EDT, Partial fill upon patient request if the prescription is for a schedule II opioid drug. Start Date: 01/19/25 Status: Ordered Repeat number: 1 metFORMIN 500 mg oral tablet 1 each = 500 mg, By Mouth, 2 times a day, 0 Refills, Maintenance, 05/05/21 8:42:00 AM EDT, Tablet, Partial fill upon patient request if the prescription is for a schedule II opioid drug. Start Date: 05/05/21 Status: Ordered Repeat number: 1 metoprolol 25 mg oral tablet 50 mg, 2, tablet, By Mouth, Daily at bedtime, Refills 0, Maintenance, 05/05/21 8:42:00 AM EDT, Partial fill upon patient request if the prescription is for a schedule II opioid drug. Start Date: 05/05/21 Status: Ordered Repeat number: 1 metoprolol 50 mg oral tablet 50 mg, Tablet, By Mouth, 01/30/25 9:00:00 AM EDT Start Date: 01/30/25 Stop Date: 01/30/25 Status: Completed Repeat number: 1 Mirapex 0.25 mg oral tablet 1 tablet = 0.25 mg, By Mouth, 2 times a day, PRN restless legs, 0 Refills, Maintenance, 06/09/18 2:38:13 AM EDT, Tablet Start Date: 06/09/18 Status: Ordered Repeat number: 1 omeprazole 40 mg oral enteric coated capsule 1 capsule = 40 mg, By Mouth, Daily, 0 Refills, Maintenance, 01/19/25 3:36:00 PM EDT, Partial fill upon patient request if the prescription is for a schedule II opioid drug. Start Date: 01/19/25 Status: Ordered Repeat number: 1 oxyCODONE 10 mg oral tablet TAKE 1 TABLET BY MOUTH EVERY 6 TO 8 HOURS NEEDED FOR PAIN Start Date: 01/28/25 Status: Ordered Repeat number: 1 sertraline 100 mg oral tablet 1.5 tablet = 150 mg, By Mouth, Daily Start Date: 01/19/25 Status: Ordered Repeat number: 1 traZODone 50 mg oral tablet 50 mg, 1, tablet, By Mouth, Daily at bedtime, Refills 0, Maintenance, 09/24/18 2:48:44 PM EST Start Date: 09/24/18 Status: Ordered Repeat number: 1 Tylenol Extra Strength 500 mg oral tablet 1 tablet = 500 mg, By Mouth, Every 4 hours, PRN as needed for pain, # 100 tablet, 0 Refills, Maintenance, 01/28/25 10:06:00 AM EDT, Tablet, Partial fill upon patient request if the prescription is fora schedule II opioid drug. Start Date: 01/28/25 Status: Ordered Quantity: 100.0 Unit: tablet Repeat number: 1 verapamil 100 mg oral [...] Quantity: 30.0 Unit: tablet Repeat number: 1 Zenpep 10,000 units-32,000 units-42,000 units oral delayed release capsule 1 capsule, By Mouth, 3 times a day, with each meal and snack Start Date: 01/19/25 Status: Ordered Repeat number: 1 Zofran ODT 4 mg oral tablet, disintegrating 1 tablet, By Mouth, Once, PRN as needed for nausea/vomiting, 0 Refills, Maintenance, 01/28/25 10:03:00 AM EDT, DIS Tablet, Partial fill upon patient request if the prescription is for a schedule II opioid drug. Start Date: 01/28/25 Status: Ordered Repeat number: 1 Problem List Condition Confirmation Course Effective Dates Status H ealth Status Informant Anxiety Confirmed Active Arthritis Confirmed Active Coronary atherosclerosis due to calcified coronary lesion Confirmed Active Depression Confirmed Active Diabetes mellitus Confirmed Active GERD (gastroesophageal reflux disease) Confirmed Active Hypertension Confirmed Active Insomnia Confirmed Active Obese class I Confirmed Active CAD S/P percutaneous coronary angioplasty Confirmed Active Restless leg syndrome Confirmed Active Results Radiology Reports * Exam Date Time Procedure Performing Provider Status 01/30/25 9:41 AM Hand Min 3 Views Left Lara Serna jacques; Auth (Verified) Notes: (Hand Min 3 Views Left) Reason For Exam: Pain RESULT: Hand Min 3 Views Left PROCEDURE: Hand Min 3 Views Left CLINICAL INDICATION: 79 years old Female with Reason: Pain; Clinical Question(s): Fracture. TECHNIQUE: Three views of the LEFT hand are obtained. COMPARISONS: None. FINDINGS: Bones and joints: No acute fracture or dislocation. Moderate osteopenia. Periarticular calcifications measuring up to 0.3 cm anterior and posterior to the ischial 2nd interphalangeal joint. Moderate to severe degenerative changes at the 1st carpal metacarpal joint. Mild degenerative changes at the proximal and distal 2nd interphalangeal joints, the 3rd distal interphalangeal joint. Small periarticular calcification medially at the 5th metacarpophalangeal joint. Soft Tissues: Regional soft tissues are unremarkable. No evidence of radiopaque foreign body. IMPRESSION: 1. No evidence of acute bony injuries. 2. Osteoarthritis most advanced at the 1st carpal metacarpal joint. 3. Osteopenia. Thank you for allowing me to participate in the care of this patient. WSN: [id number] Ordering Physician: Paz Cortez Dictated By: Simon Austin MD Dictated Date/Time: 01/30/25 10:08 a Reviewed By: Simon Austin MD Signed By: Simon Austin MD Signed Date/Time: 01/30/25 10:08 am Transcribed By: YAIMA Transcribed Date/Time: 01/30/25 10:06 am * Exam Date Time Procedure Performing Provider Status 01/30/25 6:09 AM Chest 2 Views Frontal and Lat Rachelle Crews; Auth (Verified) Notes: (Chest 2 Views Frontal and Lat) Reason For Exam: Postop RESULT: Chest 2 Views Frontal and Lat Chest 2 Views Frontal and Lat Reason: Postop; Clinical Question(s): Line Placement; Pneumothorax; Special Instructions: Patient may go unmonitored. Please keep film at back desk COMPARISON: 01/29/2025 FINDINGS: LINES AND TUBES: New dual-lead left subclavian pacemaker with leads projecting over the expected locations of the right atrium and right ventricle. LUNGS AND PLEURA: Mild apical scarring. No airspace consolidation. No max pulmonary edema. No pleural effusion. No pneumothorax. HEART, MEDIASTINUM AND GERSON: Heart is normal in size. TAVR. CABG. Normal mediastinal and hilar contour. BONES AND SOFT TISSUES: No acute abnormality. Median sternotomy wires. Spine degenerative changes. Known infrarenal abdominal aortic aneurysm. IMPRESSION: New dual-lead left subclavian pacemaker with leads projecting over the expected locations of the right atrium and right ventricle. No pneumothorax. TAVR. WSN: [id number] Ordering Physician: Devyn Tenorio Dictated By: Abdulaziz Hermosillo MD Dictated Date/Time: 01/30/25 7:40 am Reviewed By: Abdulaziz Hermosillo MD Signed By: Abdulaziz Hermosillo MD Signed Date/Time: 01/30/25 7:40 am Transcribed By: YAIMA Transcribed Date/Time: 01/30/25 7:38 am * Exam Date Time Procedure Performing Provider Status 01/29/25 6:43 AM Chest Portable Eduardo Crews; Auth (Yamileth ified) Notes: (Chest Portable) Reason For Exam: S/P TAVR;Postop RESULT: Chest Portable Examination: Portable chest performed on 01/29/2025. History: Status post tavr. Findings: A frontal view of the chest is compared to a prior study dated 01/28/2025. The femoral approach transvenous pacer is unchanged in position. Aortic valve is noted. Sternal hardware is intact. The cardiac silhouette is stably enlarged. Minimal prominence of the pulmonary vasculature is notedwithout overt edema. The osseous structures are unremarkable. IMPRESSION: There is no change from the prior study. WSN: [id number] Ordering Physician: Shantal Sparks Dictated By: Yin Jorge MD Dictated Date/Time: 01/29/25 8:24 am Reviewed By: Yin Jorge MD Signed By: Yin Jorge MD Signed Date/Time: 01/29/25 8:24 am Transcribed By: YAIMA Transcribed Date/Time: 01/29/25 8:22 am * Exam Date Time Procedure Performing Provider Status 01/29/25 12:25 AM Chest Portable Eduardo Crews; Auth (Ve rified) Notes: (Chest Portable) Reason For Exam: S/P TAVR;Postop RESULT: Chest Portable Examination: Portable chest performed on 01/28/2025. History: Status post tavr. Findings: A frontal view of the chest is compared to a prior study dated 04/23/2021. A femoral approach transvenous pacing wire has the lead in the right ventricle. Aortic valve has been placed. Sternotomy wires are intact. The cardiac silhouette is within normal limits for size. Thelungs are clear. The osseous structures are unremarkable. IMPRESSION: Line as described. There is no acute cardiopulmonary disease. WSN: [id number] Ordering Physician: Shantal Sparks Dictated By: Yin Jorge MD Dictated Date/Time: 01/29/25 8:02 am Reviewed By: Yin Jorge MD Signed By: Yin Jorge MD Signed Date/Time: 01/29/25 8:02 am Transcribed By: YAIMA Transcribed Date/Time: 01/29/25 8:00 am Vital Signs Most recent to oldest [Reference Range]: 1 2 3 Height 152 cm (01/30/25 11:10 AM) 152 cm (01/30/25 8:32 AM) 152 cm (01/30/25 3:15 AM) Weight 76.8 kg (01/29/25 5:32 PM) 76.8 kg (01/29/25 5:24 PM) 79 kg (01/29/25 6:21 AM) Oxygen Saturation [94-100 %] 99 % (01/30/25 11:10 AM) 95 % (01/30/25 8:32 AM) 99 % (01/30/25 8:00 AM) Pulse Rate [55-90 bpm] 115 bpm *H* (01/30/25 11:10 AM) 103 bpm *H* (01/30/25 9:15 AM) 103 bpm *H* (01/30/25 8:32 AM) Body Mass Index [18.5-24.99 kg/m2] 33.24 kg/m2 *>HHI* (01/29/25 5:32 PM) 32.98 kg/m2 *>HHI* (01/28/25 10:09 AM) Blood Pressure [90-138/55-84 mm Hg] 138/58mm Hg (01/30/25 11:10 AM) 163/64mm Hg *H* (01/30/25 9:15 AM) 163/64mm Hg *H* (01/30/25 9:15 AM) Respiratory Rate [16-30 br/min] 18 br/min (01/30/25 11:10 AM) 18 br/min (01/30/25 8:32 AM) 20 br/min (01/30/25 8:00 AM) Temperature [96.8-100.4 DegF] 98.6 DegF (01/30/25 11:10 AM) 98.1 DegF (01/30/25 8:32 AM) 97.8 DegF (01/30/25 3:15 AM) Liters per Minute 2 L/min (01/29/25 5:00 PM) 2 L/min (01/29/25 4:45 PM) Mode of Delivery (Oxygen) Room air (01/30/25 11:10 AM) Room air (01/30/25 8:32 AM) Room air (01/30/25 8:00 AM) Blood pressure sites Arm, right (01/30/25 11:10 AM) Arm, right (01/30/25 8:32 AM) Arm, right (01/30/25 8:00 AM) Temperature Route Oral (01/30/25 11:10 AM) Oral (01/30/25 8:32 AM) Oral (01/30/25 3:15 AM) Dry Weight 76.2 kg (01/29/25 5:32 PM) 76.2 kg (01/28/25 10:09 AM) Weight Obtained Via Bed scale (01/29/25 5:24 PM) Standing scale (01/28/25 10:09 AM) Dry Weight Obtained Via Standing scale (01/28/25 10:09 AM) Social History Social History Type Response Smoking Status Former smoker entered on: 06/24/18 Sex Sex Representation Female (finding) Note * Event Display: Hemodynamic Procedure Report Authored Date: [id number] * Aniya Jay RN: PERFORM Event Display: Discharge/Transfer Note Hospital Authored Date: [id number] Nursing Discharge Note Entered On: 01/30/2025 14:38 EDT Performed On: 01/30/2025 14:38 EDT by Aniya Jay RN Nursing Discharge Note 2 Discharge Time : 01/30/2025 14:30 EDT Discharge Level of Care at Discharge : Home/Fdc/Foster Care Patient Left Unit Via : Wheelchair Patient Accompanied Off Unit with : Significant other DC Instructions Provided & Signed by Pt : Yes Patient Understands D/C Instructions : Yes Patient Instructions Discharge Signed : Yes Did Pt have Specialty Bed or Wound Vac : No Aniya Jay RN - 01/30/2025 14:38 EDT * Dana FRANK, Paz Lowry: PERFORM Event Display: Discharge/Transfer Note Hospital Authored Date: [id number] Patient: ??NEAL, MYNOR ? Age:??79 Years?Sex:??Female?:??1945?? Patient Information Discharge Location: Primary Care Physician: Ravindra COHN , Sary Valdez Admit Date/Time: 01/28/2025 08:22 Discharge Disposition Discharge Disposition: Home: No Services Discharge Diagnosis S/P TAVR (transcatheter aortic valve replacement) (Z95.2) Anxiety (F41.9) Depression (F32.A) Diabetes mellitus (E11.9) GERD (gastroesophageal reflux disease) (K21.9) Hypertension (I10) Restless leg syndrome (G25.81) Arthritis (M19.90) HB (heart block) (I45.9) HLD (hyperlipidemia) (E78.5) H/O: lung cancer (Z85.118) Hx of pulmonary embolus (Z86.711) On continuous oral anticoagulation (Z79.01) _ Discharge Medications Acetaminophen (Tylenol Extra Strength 500 mg oral tablet)??1 tab(s) 500 Milligram By Mouth Every 4 hours as needed as needed for pain apixaban??5 Milligram By Mouth 2 times a day Aspirin (aspirin 81 mg oral enteric coated tablet)??81 Milligram 1 tab(s) By Mouth Daily Atorvastatin (atorvastatin 80 mg oral tablet)??1 tab(s) 80 Milligram By Mouth Daily at bedtime Cyanocobalamin (Vitamin B12 500 mcg oral tablet)??1 tab(s) 500 Microgram By Mouth Daily Folic Acid (folic acid 1 mg oral tablet)??1 Milligram 1 tablet By Mouth Daily Hyoscyamine (hyoscyamine 0.125 mg oral tablet)??0.125 Milligram 1 tablet By Mouth 2 times a day Insulin Glargine (Lantus Solostar Pen 100 units/mL subcutaneous solution)??See Instructions Inject 12 units and alternate with 14 units every other day. Isosorbide Mononitrate (isosorbide mononitrate 30 mg oral tablet, extended release)??1 tab(s) 30 Milligram By Mouth Daily in AM Lisinopril (lisinopril 2.5 mg oral tablet)??2.5 Milligram 1 tablet By Mouth Daily Loperamide (loperamide 2 mg oral capsule)??2 Milligram 1 capsule By Mouth Every 4 hours as needed for loose stool Lorazepam (LORazepam 0.5 mg oral tablet)??1 tab(s) 0.5 Milligram By Mouth Daily as needed as neededfor anxiety Metformin (metFORMIN 500 mg oral tablet)??1 Each 500 Milligram By Mouth 2 times a day Metoprolol (metoprolol 25 mg oral tablet)??50 Milligram 2 tablet By Mouth Daily at bedtime Miscellaneous Rx (CBC and BMP one week post discharge)??See Instructions . Omeprazole (omeprazole 40 mg oral enteric coated capsule)??1 capsule 40 Milligram By Mouth Daily Ondansetron (Zofran ODT 4 mg oral tablet, disintegrating)??1 tab(s) By Mouth Once as needed as needed for nausea/vomiting Oxycodone (oxyCODONE 10 mg oral tablet)??TAKE 1 TABLET BY MOUTH EVERY 6 TO 8 HOURS NEEDED FOR PAIN Pancrelipase (Zenpep 10,000 units-32,000 units-42,000 units oral delayed release capsule)??1 capsule By Mouth 3 times a day with each meal and snack Pramipexole (Mirapex 0.25 mg oral tablet)??1 tab(s) 0.25 Milligram By Mouth 2 times a day as neededrestless legs Sertraline (sertraline 100 mg oral tablet)??1.5 tab(s) 150 Milligram By Mouth Daily Trazodone (traZODone 50 mg oral tablet)??50 Milligram 1 tablet By Mouth Daily at bedtime Verapamil (verapamil 100 mg oral capsule, extended release)??1 capsule 100 Milligram By Mouth Dailyat bedtime ? Allergies Allergies ?(Active and Proposed Allergies Only) Bactrim? (Severity: Unknown severity, Onset: Unknown) ?Reactions: Rash ?Comments: feet and legs rash HYDROmorphone? (Severity: Unknown severity, Onset: Unknown) ?Reactions: Hallucinations cloNIDine? (Severity: Unknown severity, Onset: Unknown) ?Reactions: Hallucinations gabapentin? (Severity: Unknown severity, Onset: Unknown) ?Reactions: hallucinations morphine? (Severity: Unknown severity, Onset: Unknown) ?Reactions: hallucinations Adhesive Bandage? (Severity: Unknown severity, Onset: Unknown) ?Reactions: Rash, Rash ? Hospital Course Pt is a 79yo female with PMHX CABGx2 [place] [address] Fischer, HTN, HLD, , CAD, moderate MR, DM2, stage IV lung cancer in remission, pulmonary embolism on eliquis. She presented for evaluation of d/t increasing RIVAS, fatigue, and syncope. Cardiac cath in 2021 showed patent bypass grafts. ?? She presented on 01/28 for elective TAVR..Post-valve deployment presented with CHB with junctional escape rhythm, as well as a bifascicular block. The TVP was kept in place and she was transferred to [facility] for monitoring until placement of PPM . ?? Objective Assessment and Plan Assessment:? S/P Transfemoral TAVR Operators: Amado / Crescencio ?? --Severe aortic stenosis s/p TAVR -AC/Antiplatelet:??ASA/Eliquis given hx of PE -Post-procedure echo:??MG 7mmHg, trace PVL ?? --Complete heart block --Junctional escape rhythm --Bifascicular block -Stable hemodynamics. TVP??in place (backup 60bpm) -No s/p PPM (Dr. Tenorio)-??Medtronic Evolut valve- patient to follow up in device clinic as scheduled? --CAD/HLD/HTN:?? -ASA (81mg PO daily)?? -Statin (Atorvastatin 80mg PO qhs) -BetaBlocker - resumed?? -Resume all home antihypertensive medications? -Baseline Cr.??0.8 -Stable at baseline.? Left thumb pain Supportive care with rest, Ice and Tylenol. Follow up with PCP if pain does not improve.? XR obtained IMPRESSION: ??1.??No evidence of acute bony injuries. 2.??Osteoarthritis most advanced at the 1st carpal metacarpal joint.3.??Osteopenia. 3.??Osteopenia. ? Patient will follow up with TAVR clinic as scheduled. Patient will have follow up echo as scheduled Patient will have CBC and BMP in one week post discharge with results to be reviewed by tools programmer. Patient will resume all medications and treatments as prescribed by primary care providers as pre TAVR.? Measurements?? Height: 152 cm (01/30/25) Weight: 76.8 kg (01/29/25) Dry Weight: 76.2 kg (01/29/25) Body Mass Index:??33.24 kg/m2??Critical (01/29/25) ? Vital Signs?? Temperature: 98.1 DegF (01/30/25 08:32:00) Temperature Route: Oral (01/30/25 08:32:00) Pulse Rate:??103 bpm??High (01/30/25 09:15:00) Heart Rate Monitored:??100 bpm??High (01/29/25 17:00:36) Respiratory Rate: 18 br/min (01/30/25 08:32:00) Vented: No (01/29/25 17:00:00) Systolic Blood Pressure:??163 mm Hg??High (01/30/25 09:15:00) Systolic Blood Pressure:??163 mm Hg??High (01/30/25 09:15:00) Diastolic Blood Pressure: 64 mm Hg (01/30/25 09:15:00) Diastolic Blood Pressure: 64 mm Hg (01/30/25 09:15:00) Blood pressure sites: Arm, right (01/30/25 08:32:00) Mean Arterial Pressure: 97 mm Hg (01/30/25 08:32:00) Pulse Pressure: 99 mm Hg (01/30/25 08:32:00) Oxygen Saturation: 95 % (01/30/25 08:32:00) Liters per Minute: 2 L/min (01/29/25 17:00:00) Mode of Delivery (Oxygen): Room air (01/30/25 08:32:00) Early Warning Score: 3 (01/30/25 09:17:30) ? Intake/Output? 01/28 08:22 01/30 07:00 01/29 07:00 01/28 07:00 01/27 07:00 ?? 01/30 10:42 01/30 10:42 01/30 06:59 01/29 06:59 01/28 06:59 Intake ?380.0 ?0 ? 94.6 ?285.4 ?0 Output ? 1300 ?0 ?400 ?900 ?0 Net Total ? -920.0 ?0 ? -305.4 ? -614.6 ?0 ? Urine Count ?1 ?0 ?0 ?1 ?0 ? Basic ADLs Activity Assistance: Moderate assistance (01/28/25) Ambulatory devices needed: None (01/29/25) Assistance w bathing/eating/dressing: No (01/29/25) Feeding Assistance: Independent, NPO (01/29/25) Hygiene: Assist, Mouth care, Sequential compression device skin maintenance (01/29/25) Need for Assist w/ Walk/Transfer: No (01/29/25) ? Mobility & Ambulation Level Mobility & Ambulation Level Activity Assistance: Moderate assistance (01/28/25) Activity Status ADL: Repositioned in bed every two hours (01/28/25) Ambulatory devices needed: None (01/29/25) Range of Motion LLE: Assistive (01/29/25) Range of Motion LUE: Active (01/29/25) Range of Motion RLE: Assistive (01/29/25) Range of Motion RUE: Active (01/29/25) Repositioning: Assist (01/29/25) ?? . Physical Exam ?? Neuro -Alert and oriented individual in no distress Cardiovascular- Cardiac assessment reveals S1, S2 with no murmurs, gallops or rubs. RRR- Lower extremities are without edema Respiratory- Lung sounds are clear to auscultation anterior and posterior with no rales or rhonchi noted. GI- Abdomen is soft nontender with bowels sounds appreciated in all 4 quadrants.?? - Voiding without difficulty Integumentary- Bilateral groins soft nontender, no hematoma Pending Results BUN ordered on 01/29/2025 CBC w/ Differential ordered on 01/29/2025 Creatinine ordered on 01/29/2025 Electrolytes ordered on 01/29/2025 Magnesium Level ordered on 01/29/2025 Type and Screen ordered on 01/27/2025 Type and Screen ordered on 01/28/2025 Type and Screen ordered on 01/29/2025 Patient Education Titles [employer] Patient Education - New Pacer Instructions?? [employer] Patient Education - TAVR Discharge Instructions?? [employer] Patient Education - Cardiac Rehabilitation?? Follow-Up Appointments Added Follow Up ?Time Frame ?Comments Sary Waite MD?2 to 5 weeks?You will need to call your primary care provider to schedule a follow up appointment.?? LABS?Obtain CBC and BMP in one??week post discharge?? [facility]: Cardiac Rehab?02/22/2025 08:00?Phase 2 Cardiac Rehab Orientation ECHO?04/02/2025 11:30?POST TAVR ECHO Armando Bentley?04/07/2025 10:40?POST TAVR FOLLOW UP AFTER ECHO Armando Bentley?02/17/2025 09:40?2 week TAVR follow up Home Health Face to Face ^HomeHealth[facility] Results Discharge Labs BLOOD BANK Blood Type A Positive ()?? 01/28/2025 19:08 Antibody Screen Negative ()?? 01/28/2025 19:08 RBC Unit ID [id number] ()?? 01/28/2025 04:08 RBC Available RE ()?? 01/28/2025 04:08 ?? BLOOD COUNT & DIFF WBC 7.3 k/mm3 ()?? 01/30/2025 02:40 RBC 3.36 m/mm3 (Low)?? 01/30/2025 02:40 Hgb 10.5 Gm/dL (Low)?? 01/30/2025 02:40 Hct 32.0 % (Low)?? 01/30/2025 02:40 MCV 95.2 femtoliters ()?? 01/30/2025 02:40 MCH 31.3 pg ()?? 01/30/2025 02:40 MCHC 32.8 Gm/dL (Low)?? 01/30/2025 02:40 Platelet Count 158 k/mm3 ()?? 01/30/2025 02:40 RDW-SD 44.0 femtoliters ()?? 01/30/2025 02:40 MPV 10.3 femtoliters ()?? 01/30/2025 02:40 Nucleated RBC (Automated) 0.0 #/100 WBC'S ()?? 01/30/2025 02:40 Abs. NRBC 0.0 k/mm3 ()?? 01/30/2025 02:40 Abs. Neut 5.6 k/mm3 ()?? 01/30/2025 02:40 Abs. Lymph 1.0 k/mm3 ()?? 01/30/2025 02:40 Abs. [place] 0.7 k/mm3 ()?? 01/30/2025 02:40 Abs. Eo 0.0 k/mm3 ()?? 01/30/2025 02:40 Abs. Baso 0.0 k/mm3 ()?? 01/30/2025 02:40 Neut % 76.1 % (High)?? 01/30/2025 02:40 Lymph % 13.0 % (Low)?? 01/30/2025 02:40 [place] % 10.1 % ()?? 01/30/2025 02:40 Eos % 0.4 % ()?? 01/30/2025 02:40 Baso % 0.1 % ()?? 01/30/2025 02:40 Imm Gran 0.3 % ()?? 01/30/2025 02:40 Abs. Imm Gran 0.0 k/mm3 ()?? 01/30/2025 02:40 ?? CARDIAC Nt-Probnp 538 pg/mL (High)?? 01/28/2025 09:00 ? CHEM GENERAL Sodium 139 mmol/L ()?? 01/30/2025 02:40 Potassium 4.0 mmol/L ()?? 01/30/2025 02:40 Chloride 103 mmol/L ()?? 01/30/2025 02:40 Bicarbonate Level 21 mmol/L (Low)?? 01/30/2025 02:40 Anion Gap 15 mmol/L ()?? 01/30/2025 02:40 Glucose, POC 252 mg/dL (High)?? 01/30/2025 08:17 BUN 12 mg/dL ()?? 01/30/2025 02:40 Creatinine-Blood 0.65 mg/dL ()?? 01/30/2025 02:40 Estimated GFR Creatinine 91 ML/MIN/1.73 M2 ()?? 01/30/2025 02:40 Magnesium 2.1 mg/dL ()?? 01/30/2025 02:40 ?? COAG POC ACT-LR 210.0 seconds ()?? 01/28/2025 11:00 ? URINE OTHER Est Creatinine Clearance 51.65 mL/min ()?? 01/30/2025 03:52 ? VIROLOGY COVID-19 PCR Specimen Source NASAL ()?? 01/28/2025 17:30 COVID-19 PCR Result NEGATIVE ()?? 01/28/2025 17:30 ? Blood Glucose Trend Glucose, POC:??252 mg/dL??High (01/30/25 08:17:00) Glucose, POC:??241 mg/dL??High (01/29/25 21:03:00) Glucose, POC:??223 mg/dL??High (01/29/25 16:56:00) Glucose, POC:??229 mg/dL??High (01/29/25 13:30:00) ? Microbiology ?? COVID-19 (2019 Novel Coronavirus) PCR?? Completed?? Source: Nasal Body Site: Nose Collected Dt/Tm: 01/28/2025 17:14 Last Updated Dt/Tm: 01/28/2025 18:40 ? 30 minutes spent on discharge * Aniya Jay RN: PERFORM Event Display: Patient Education/Instruction Authored Date: [id number] Inpatient Adult Discharge Instructions. [address] [address] Name: MYNOR DE JESUS : 1945?? Visit: 01/28/2025 08:22?? Current Date: 01/30/2025 11:27 ?? Account: [id number]?? Inpatient Adult Discharge Instructions We would like to thank you for allowing us to assist you with your healthcare needs. The following includes patient education materials and information regarding your injury/illness. Our entire staffstrives to provide an excellent experience for our patients and their families. PLEASE ENSURE YOU FOLLOW-UP PER THE INSTRUCTIONS BELOW! ?? YOUR OPINION IS IMPORTANT TO US! Please complete the survey you may receive by mail or email. Your feedback will be used to make improvements to the healthcare experiences of our patients and their families. Surveys are administered by [employer] ?? If further treatment with your primary care physician or another doctor is recommended, it is important for you to keep the appointment. Call your primary care physician or return to the Emergency Department immediately if your condition worsens, fails to improve, or new symptoms develop. If you need to find a doctor, you can call [facility] Link for a referral at [phone] or toll free at [phone] or log in to [email or web address].. ?? [facility], in keeping with [facility] guidance, no longer requires face masks for staff, patientsor visitors in most situations. Similiar to time spent indoors at other locations, there is the chance that you were exposed to repiratory viruses during your time with us (such as flu or COVID-19). If you develop symptoms concerning for a viral respiratory infection, please seek testing (and treatment if indicated) from your medical provider or home test kit. ?? You can view and manage your care through the patient portal or by using a health care starr of your choosing. [employer] is a website that allows you to securely view your medical information including your hospital discharge summary, office visit summaries, medications and follow-up visits. You can also request appointments, renew medications, and request access to your medical information using a health care starr of your choosing, or just ask a question. You are entitled to know the individuals who participated in your treatment. This information is available within your medical record and will be provided upon your request. You can enroll at [email or web address] or register d uring your next office visit. You have been discharged from [facility], Patient Care Unit: M6??. If you have any questions regarding these instructions, including results of studies pending, afteryou leave, please call us and we will be happy to assist you 06/05. [facility] Your Care Team Attending Physician Shad Fischer MD?? Consulting Providers Shad Fischer MD?? Discharging Providers Dana FRANK, Paz Lowry Your Diagnosis Anxiety Arthritis Depression Diabetes mellitus GERD (gastroesophageal reflux disease) H/O: lung cancer HB (heart block) HLD (hyperlipidemia) Hx of pulmonary embolus Hypertension On continuous oral anticoagulation Restless leg syndrome S/P TAVR (transcatheter aortic valve replacement) Tests Performed Below is a partial list of the tests performed during your hospitalization. You may have had other tests and procedures not included in this list. Please discuss all test results with your provider. BUN CBC w/ Differential COVID-19 (2019 Novel Coronavirus) PCR Creatinine Electrolytes GLUCOSE POC Hgb + Hct Magnesium Level POC Hemochron ACT-LR Potassium Level ProBNP XR Chest 2 Views Frontal and Lat XR Chest Portable XR Hand Min 3 Views Left B Type Natriuretic Peptide (NT-proBNP) (ProBNP)?? BUN?? CBC w/ Differential?? COVID-19 (2019 Novel Coronavirus) PCR?? Creatinine?? Electrolytes?? Glucose POC?? Hgb + Hct?? Magnesium Level?? POC ACT-LR (POC Hemochron ACT-LR)?? Potassium Level?? Type and Screen?? Chest 2 Views Frontal and Lat (XR Chest 2 Views Frontal and Lat)?? Chest Portable (XR Chest Portable)?? Hand Min 3 Views Left?? Primary Care Provider Ravindra COHN , Sary Valdez? Advance Directive Health Care Proxy on File Yes - Health Care Proxy Discharge Vitals Temperature: 98.6 DegF Height: 152 cm Pulse Rate:??115 bpm??High Weight: 76.8 kg Respiratory Rate: 18 br/min Body Mass Index:??33.24 kg/m2??Critical Systolic Blood Pressure: 138 mm Hg Body surface area: 1.8 Diastolic Blood Pressure: 58 mm Hg ?? Oxygen Saturation: 99 % ?? Studies Pending All studies ordered during this hospital stay have been completed unless listed below. Please discuss all pending results with your provider listed above in these instructions. ?? BUN?? CBC w/ Differential?? Creatinine?? Electrolytes?? Magnesium Level?? Type and Screen?? What to do next Instructions From Your Doctor ?? Orders? 01/30/25 10:47:00 EDT?? 01/30/25 10:43:00 EDT?? You Need to Schedule the Following Appointments Follow Up with??Armando Bentley When:??04/07/2025 10:40 AM EDT Why: POST TAVR FOLLOW UP AFTER ECHO Where: [address] [place] [address], [address] [place] [address]- [facility] (1) Follow Up with??ECHO When:??04/02/2025 11:30 AM EDT Why: POST TAVR ECHO Where: [address] [facility] [address] [place] [address] Follow Up with??[facility]: Cardiac Rehab When:??02/22/2025 08:00 AM EDT Why: Phase 2 Cardiac Rehab Orientation Where: [address] [place], [place] [id number]- [phone] Follow Up with??Armando Bentley When:??02/17/2025 09:40 AM EDT Why: 2 week TAVR follow up Where: [address] [place] [address], [address] [place] [address] [facility] (1) Follow Up with??Sary Waite MD When:??Within 2 to 5 weeks Why: You will need to call your primary care provider to schedule a follow up appointment.?? Where: [address] [place] [address]- Business (1) Follow Up with??[facility] Why: Obtain CBC and BMP in one??week post discharge?? Discharge Medications NEALDEEMYNOR :1945 Visit Date:01/28/2025 Medications: Please continue your medications until treatment is completed or stopped by your provider. Medications not listed below should be discontinued. Discuss any questions related to medications with your provider. What How Much When Instructions Next Dose New Miscellaneous Rx (CBC and BMP one week post discharge) See instructions . ?? Printed Prescription Unchanged Acetaminophen (Tylenol Extra Strength 500 mg oral tablet) 1 tab(s) Oral Every 4 hours as needed for as needed for pain Don't exceed 4,000 mg per day As needed Unchanged apixaban 5 Milligram Oral Twice a day Tonight @9PM Unchanged Aspirin (aspirin 81 mg oral enteric coated tablet) 1 tab(s) Oral Daily Tomorrow AM Unchanged Atorvastatin (atorvastatin 80 mg oral tablet) 1 tab(s) Oral Daily at Bedtime Tonight @9PM Unchanged Cyanocobalamin (Vitamin B12 500 mcg oral tablet) 1 tab(s) Oral Daily Continue home regimen Unchanged Folic Acid (folic acid 1 mg oral tablet) 1 tab(s) Oral Daily Continue home regimen Unchanged Hyoscyamine (hyoscyamine 0.125 mg oral tablet) 1 tab(s) Oral Twice a day As needed Unchanged Insulin Glargine (Lantus Solostar Pen 100 units/ mL subcutaneous solution) See instructions Inject 12 units and alternate with 14 units every other day. ?? Next meal Unchanged Isosorbide Mononitrate (isosorbide mononitrate 30 mg oral tablet, extended release) 1 tab(s) Oral Daily in the morning Tomorrow AM Unchanged Lisinopril (lisinopril 2.5 mg oral tablet) 1 tab(s) Oral Daily Tomorrow AM Unchanged Loperamide (loperamide 2 mg oral capsule) 1 capsule Oral Every 4 hours as needed for for loose stool As needed Unchanged Lorazepam (LORazepam 0.5 mg oral tablet) 1 tab(s) Oral Daily as needed for as needed for anxiety As needed Unchanged Metformin (metFORMIN 500 mg oral tablet) 1 Each Oral Twice a day Continue home regimen Unchanged Metoprolol (metoprolol 25 mg oral tablet) 2 tab(s) Oral Daily at Bedtime Tonight @9PM Unchanged Omeprazole (omeprazole 40 mg oral enteric coated capsule) 1 capsule Oral Daily Tomorrow AM Unchanged Oxycodone (oxyCODONE 10 mg oral tablet) TAKE 1 TABLET BY MOUTH EVERY 6 TO 8 HOURS NEEDED FOR PAIN ?? As needed Unchanged Pancrelipase (Zenpep 10,000 units-32,000 units-42,000 units oral delayed release capsule) 1 capsule Oral 3 times a day with each meal and snack ?? Next meal Unchanged Pramipexole (Mirapex 0.25 mg oral tablet) 0.25 Milligram Oral Twice a day as needed for restless legs As needed Unchanged Sertraline (sertraline 100 mg oral tablet) 1.5 tab(s) Oral Daily Tomorrow AM Unchanged Trazodone (traZODone 50 mg oral tablet) 1 tab(s) Oral Daily at Bedtime Tonight Unchanged Verapamil (verapamil 100 mg oral capsule, extended release) 1 capsule Oral Daily at Bedtime Tonight Prescription Given During Visit Miscellaneous Rx (CBC and BMP one week post discharge) - , # 1 each, 0 Refills, .?? Laboratory Results Below is a partial list of the most recent Laboratory test results done prior to this discharge. You may have had other tests and procedures not included in this list. Please discuss all test resultswith your provider. Est Creatinine Clearance - 51.65 mL/min (01/30/2025) RBC Available - RE (01/28/2025) RBC Unit ID - [id number] (01/28/2025) BUN (01/30/2025) ???BUN - 12 mg/dL CBC w/ Differential (01/30/2025) ???WBC - 7.3 k/mm3???RBC - 3.36 m/mm3???Hgb - 10.5 Gm/dL???Hct - 32.0 %???MCV - 95.2 femtoliters???MCH - 31.3 pg???MCHC - 32.8 Gm/dL???Platelet Count - 158 k/mm3???RDW-SD - 44.0 femtoliters???MPV - 10.3 femtoliters???Nucleated RBC (Automated) - 0.0 #/100 WBC'S???Abs. NRBC - 0.0 k/mm3???Abs. Neut - 5.6 k/mm3???Abs. Lymph - 1.0 k/mm3???Abs. [place] - 0.7 k/mm3???Abs. Eo - 0.0 k/mm3???Abs. Baso - 0.0 k/mm3???Neut % - 76.1 %???Lymph % - 13.0 %???[place] % - 10.1 %???Eos % - 0.4 %???Baso % - 0.1 %???Imm Gran - 0.3 %???Abs. Imm Gran - 0.0 k/mm3 COVID-19 (2019 Novel Coronavirus) PCR (01/28/2025) ???COVID-19 PCR Specimen Source - NASAL???COVID-19 PCR Result - NEGATIVE Creatinine (01/30/2025) ???Creatinine-Blood - 0.65 mg/dL???Estimated GFR Creatinine - 91 ML/MIN/1.73 M2 Electrolytes (01/30/2025) ???Sodium - 139 mmol/L???Potassium - 4.0 mmol/L???Chloride - 103 mmol/L???Bicarbonate Level - 21 mmol/L???Anion Gap - 15 mmol/L GLUCOSE POC (01/30/2025) ???Glucose, POC - 252 mg/dL Hgb + Hct (01/28/2025) ???Hgb - 11.1 Gm/dL???Hct - 34.7 % Magnesium Level (01/30/2025) ???Magnesium - 2.1 mg/dL POC Hemochron ACT-LR (01/28/2025) ???POC ACT-LR - 210.0 seconds Potassium Level (01/28/2025) ???Potassium - 4.5 mmol/L ProBNP (01/28/2025) ???Nt-Probnp - 538 pg/mL You will be contacted within 72 hours with your results. Allergies (NKA means No Known Allergies) Adhesive Bandage??(Rash, Rash) Bactrim??(Rash) HYDROmorphone??(Hallucinations) cloNIDine??(Hallucinations) gabapentin??(hallucinations) morphine??(hallucinations) Problems Active Problems??(11) Anxiety?? Arthritis?? CAD S/P percutaneous coronary angioplasty?? Coronary atherosclerosis due to calcified coronary lesion?? Depression?? Diabetes mellitus?? GERD (gastroesophageal reflux disease)?? Hypertension?? Insomnia?? Obese class I?? Restless leg syndrome?? Education Materials Below is the list of Educational Leaflet Providered with your Discharge Instructions. [employer] Patient Education - New Pacer Instructions?? [employer] Patient Education - TAVR Discharge Instructions?? [employer] Patient Education - Cardiac Rehabilitation?? Valuables and Belongings I fully understand and agree that [facility] accepts no responsibility for all my personal property including clothing, toilet articles, radios, jewelry, dentures, hearing aids, rings, money, or any other property that is in my possession or is brought to me after admission. I understand certain valuables may be placed in a hospital safe for a short period of time. I understand that the hospital is not liable for loss or damage due to accident, fire, or other natural occurrence while said property is in the safe. I accept full responsibility for any personal property that I keep with me, and will not hold the hospital responsible in case of loss or disappearance. I acknowledge that i have been encouraged to send valuables and belongings home. ?? Review of Valuable and Belonging List: With patient Date for Pt to Sign Valuables/Belongings: 01/28/25 10:09:00 ?? Valuables & Belongings ?? Clothes Electronic devices Jewelry Monetary Items Personal devices Miscellaneous Medications (Valuables) Valuables at Bedside Jacket, Pants, Shirt, Undergarments Cell phone ?? Wallet Dentures, full, Glasses ? Valuables Sent Home ? Valuables Sent to Security ? Valuables Sent to Locker ? Other Discharge Information ? Pulmonary Rehab Status?? Pulmonary Rehab Discharge Status?? Respiratory Rate: 18 br/min ? Cardiac Rehab Assessment?? Cardiac Rehab Inpatient Assessment?? Comments-Education: post procedure guidelines Comments-Exercise Activity: increase activty as tolerated Comments-Nutrition: per RD Comments-Stress Management: healthy coping techniques Comments-Lipids: exercise, diet, and medications per MD Comments-Other plan of care: refer to phase 2 cardiac rehab Patient attending Phase II: Yes Phase II Site of Care: [facility] [address] [facility] [phone] Common Emergency Awareness Tips IS IT A STROKE? Act FAST and Check for these signs: FACE Does the face look uneven? ARM Does one arm drift down? SPEECH Does their speech sound strange? TIME Call at any sign of stroke ?? Heart Attack Signs Chest discomfort: Most heart attacks involve discomfort in the center of the chest and lasts more than a few minutes, or goes away and comes back. It can feel like uncomfortable pressure, squeezing, fullness or pain. Discomfort in upper body: Symptoms can include pain or discomfort in one or both arms, back, neck, jaw or stomach. Shortness of breath: With or without discomfort. Other signs: Breaking out in a cold sweat, nausea, or lightheaded. Remember, MINUTES DO MATTER. If you experience any of these heart attack warning signs, call to get immediate medical attention! ?? Smoking can increase your chances of developing chronic health problems and can cause harmful effects to other family members in your house. If you smoke, you are strongly encouraged to quit. Please call [facility] Link at [phone] or [phone]) or log in to [email or web address] for referrals to smoking cessation programs. ?? 602 Suicide & Crisis Lifeline is available 06/05 if you or someone you know needs to find a reason to keep living. By calling 909 you'll be connected to a skilled, trained counselor at a crisis center in your area. INPATIENT DISCHARGE INSTRUCTIONS SIGNATURE PAGE MARVINMYNOR YUAN Location:[facility] Registration Date and Time:01/28/2025 08:22 EDT Primary Care Physician: Sary Waite MD, Attending Physician: Shad Fischer MD, I MYNOR DE JESUS, have received the above patient education materials/instructions and have verbalized understanding. If ambulance or transport services are being used I further acknowledge being given a choice of service. ?? If you need to contact me, please call me at this number: . Patient/Displayer Merchandise Name: Patient/Displayer Merchandise Signature: Relationship to Patient: Witness Name/Signature: Date: * Paz Cortez NP: PERFORM Event Display: Patient Education Leaflets Authored Date: [id number] New Pacer Instructions ?? 726 Permanent Pacemaker Instructions Site Care ??? Do not remove the dressing or shower for 3 days. Once the dressing is removed, you may get the incision wet but do not scrub the area. Pat it dry. Do not apply lotions or ointments to the site. The incision will be covered with either skin glue OR Steri-strips. Do not peel off either skin covering. Hand washing is a must and avoid touching the incision. ??? Steri-strips care-Do not pull, tug,or rub Steri-strips. They will fall off on their own within two weeks, otherwise they will be removed at the time of wound check. ?? Activity ??? If you received a new battery only:??for approximately 2 weeks do not lift, push, pull or carryobjects that weigh more than 10 pounds until the incision is healed. Avoid clothing that rubs against the incision. ??? If you received a new lead or wire: Limit the movement of your arm on the same side as the pacemaker, but do not stop moving it. o Avoid stretching that arm up over your head or lift or carry things that weigh more than 10 pounds for 6 weeks. o Avoid golfing, swimming, tennis, bowling, shoveling snow, or mowing the lawn for 6 weeks. o You may sleep on the same side of the device once it is comfortable. o Do not drive for 5 days unless otherwise instructed by physician. o Avoid clothing that rubs against your incision.? Follow-up Instructions ??? If you do not already have a scheduled follow-up appointment, please call to make one. ??? Please review your manual provided with the device. ??? You will receive a temporary identification cardwhen you leave the hospital. A permanent card will be sent in the mail from the asic verification engineer in 6-8weeks. Please carry your ID card with you at all times. ??? Do not go through metal detectors, have your ID card ready you will need to show it. Please inform security staff, they are trained in proper procedures. ??? You may receive a home monitor with your device, please plug in and leave by yourbedside. Do not touch any buttons unless instructed otherwise. ??? Please tell all your healthcare providers (medical doctors, surgeons, dentists, chiropractors, etc.) you have a pacemaker. ??? Avoidpotential sources of strong electrical or magnetic rodas. Please check with your pumper gager apprentice prior to scheduling an MRI for diagnostic purposes. Some implantable cardiac devices are not MRI conditional. If there is a question about any piece of equipment you may contact the device company at the toll free number on the back cover of the booklet or your ID card. ??? Most appliances (including microwaves) and tools in good repair can be used. Cell phones could affect your device. Hold the phoneon the opposite ear and do not carry in your breast pocket. ?? Call your doctor if you have any of the following: ??? Any side effects from medications- rash, cough, dizziness, leg cramps, nausea or blurred vision. ??? Your procedure site starts to bleed- lie down and put pressure on the incision site for 30 minutes: if bleeding does not stop, seek transportation to the nearest emergency department. Do not drive yourself. ??? Your incision looks swollen, redor has pus coming from it. This may mean that the site is infected. ??? You have a fever of 101 degrees or higher. ??? You are having a lot of pain at the procedure site, in your belly or back. ?? * Dana FRANK, Paz Lowry: PERFORM Event Display: Patient Education Leaflets Authored Date: [id number] TAVR Discharge Instructions ?? 298 TAVR Discharge Instructions Call 911 if: ??? If you develop a new onset of confusion, weakness or tingling on one side, numbness, slurred speech or difficulty speaking, loss of vision ??? If you develop numbness, tingling, loss of sensation, and/or coolness to your arms or legs. ??? If you develop chest pain or discomfort that is not relieved with rest. ??? If uncontrolled bleeding occurs, hold pressure to the site and call 911. ?? Call your pumper gager apprentice office if you experience any of the following: ??? Temperature of 101 or greater, chills, sweating ??? Any bleeding or swelling at the incision site or if a hard lump forms. ??? Any signs of infection at incision site including drainage, redness or tenderness, odor, or the edges of your procedure site are pulling apart or opening. ??? If you experience any new rash, cough, dizziness, or leg cramps. ??? Changes in breathing, chest pain, abnormal pain, dizziness, change in pulse, pulse rate or palpitations, nausea, vomiting. ??? You gain 2 pounds in one day or 5 pounds in 1 week. ?? Follow up: A follow up appointment should be made with your doctor. Follow up care is important; it is strongly encouraged for you to keep your appointment. You may have more than one appointment including one with the tools programmer who performed your procedure and your pumper gager apprentice. ??? Follow up appointments are generally scheduled at 2 weeks for an incision check, either with your primary pumper gager apprentice or a member of our heart valve team. ??? Additional follow ups occur with the tools programmer who performed your procedure within 4 to 6 weeks and then again at 1 year. ??? o An EKG, echocardiogram, and labs will also be obtained before these two follow up visits If you do not have an appointment scheduled already in your discharge packet, please call and make an appointment when you get home. If you have any questions, please call the office of the tools programmer who performed your procedure. ?? Valve identification card: You will receive a permanent card in the mail in 8-10 weeks. This identification card should be carried with you at all times. ?? If you go home with a 28 day monitor after your procedure: ??? The monitor will be applied to you prior to your discharge. ??? Each monitor is good for 14 days, a new monitor will be sent to your home address on file at day 12 ??? If you have any specific questions or concerns in regard to your monitor, please call the company: o Elena: ?? Bathing: ??? You can take a shower using a mild soap after you are discharged from the hospital. ??? Avoid soaking in water such as tub baths, swimming pools or hot tubs until you are cleared by your doctor to do so. ?? Incision Care: ??? Look at your procedure site every day until it is completely healed. o Check your procedure site daily for redness, odor, or drainage/bleeding. o You may have a small bump where the catheter was put in, if the bump gets larger, please notify your pumper gager apprentice. o You may see bruising at the procedure sites but this is normal. ??? It is important to keep incision sites clean and dry. o Avoid usi ng any perfumed soaps, lotions, creams, oils or ointments as these may irritate the site and could put you at risk for infection. ?? Activity: ??? Review the written materials given to you by the Cardiac Rehabilitation staff for your specificexercise program. ??? No heavy lifting over 10 pounds (gallon of milk) for 1 week. ??? Gradually increase your activity. Remember to alternate periods of activity with periods of rest. ??? It is important to continue to do the coughing and deep breathing exercises to help prevent breathing complications. ??? Take your temperature every day for the next 3-5 days. ??? Weigh yourself at the same time every morning. ?? Cardiac Rehabilitation: Cardiac rehabilitation is an outpatient medically supervised exercise program. Participating in a cardiac rehabilitation program is highly encouraged, as this is essential to your recovery process. ??? Cardiac rehabilitation typically starts 2 to 3 weeks after discharge. ??? If attending [facility]???s program, you should leave the hospital with an orientation appointment already arranged. A cardiac rehab facility other than [facility] may require a referral from your pumper gager apprentice. ?? Driving: ??? You should not drive for 2-3 days after you are discharged from the hospital. ?? Dental Cleaning/Procedures post TAVR ??? You will need an antibiotic prior to future dental cleanings and procedures to prevent against bacteria from attaching to your new heart valve (This is calledinfective endocarditis). ??? If you have developed any signs and/or symptoms of endocarditis pleasecall your pumper gager apprentice. ??? Symptoms of endocarditis include : ?? o Flu-like symptoms, such as fever, chills, night sweats tiredness, muscle and joint aches, and headache. o Trouble breathing, cough,nausea and vomiting. o Swelling of the feet, legs, and belly. ?? * Eliezer Seaman: PERFORM, SIGN, VERIFY Event Display: Cardiac Rehab Note Authored Date: [id number] Patient: MYNOR DE JESUS Age: 79 years Sex: Female : 1945 Associated Diagnoses: None Author: Eliezer Seaman Patient s/p TAVR 01/28/25 In [facility], VS reviewed, A&O x 3 Patient NPO, going for PPM this afternoon. Provided introduction to cardiac rehab to patient, but patient reports feeling very sleepy. Will see tomorrow to provided more detailed education on post procedure and home activity guidelines as well as further phase 2 cardiac rehab details. Orientation for phase 2 scheduled for 02/22/25 at 8:00am * Eliezer Seaman: SIGN, PERFORM, SIGN, VERIFY Event Display: Patient Education Handout Authored Date: [id number] * Eliezer Seaman: PERFORM Event Display: Patient Education Leaflets Authored Date: [id number] Cardiac Rehabilitation ?? [id number] Cardiac Rehabilitation Cardiac rehabilitation (cardiac rehab) is a professionally supervised program designed by your healthcare team. It'll help you recover from your heart problem and??reduce your risk of future heart problems. You may be helped by cardiac rehab if you have certain heart conditions or certain heart procedures. These include: ??? Stable angina ??? Heart attack ??? Stable heart failure ??? Coronary artery bypass surgery ??? Heart valve surgery ??? Angioplasty with or without a stent ??? Heart-lung transplant Along with a tailored exercise program, cardiac rehab provides education and counseling to improve health. The cardiac rehab program includes: ??? An assessment of your health ??? Managing your risk factors such as high cholesterol, high blood pressure, and diabetes ??? Education on diet and medicines ??? Exercise training ??? Losing weight??? Quitting smoking ??? Emotional aspects such as stress, anxiety, or depression It's important to talk with your healthcare provider about the health benefits of enrolling in a cardiac rehab program. Your rehab program Your cardiac rehab program may start while you???re still in the hospital. After you leave the hospital, you may go to a facility for rehab classes. You???ll regain some strength and learn how to exercise safely. Once you do that, your healthcare provider may prescribe an exercise program for you to do at a gym or at home. ?? As an inpatient You may start light exercise within 2 days of entering the hospital once you have the healthcare provider's approval. Your activity may be limited based on the procedure you had, such as bypass surgery, valve replacement, coronary angioplasty, or coronary stenting. ?? As an outpatient As early as 1 to 2 weeks after leaving the hospital, you can join a supervised rehab program. Ask for a referral from your healthcare provider. Before leaving the hospital, your provider can provide contact and enrollment information. See if your healthcare team can get an appointment set up beforeyou're discharged home. ??? Exercises will be prescribed to help you build strength and movement. The first month will mostlikely include easier exercises. Over time, you???ll exercise harder to improve your endurance. ???Your heart, oxygen saturation,??and blood pressure may be watched as you work. ??? Cardiac rehab programs are tailored to meet your needs. Some people may take part in the program for 6 weeks, while others will do it for 6 months or longer. ??? Some people may not have access to a facility-based cardiac rehab. Home-based cardiac rehab is considered in some cases for some people. Virtual programs may also be available. Ask your healthcare provider if these are an option for you. ?? Maintain the benefits to your health Don???t stop once you???ve finished your program! Make what you learned in rehab a regular part of your life. Here are some tips: ??? Work out at home or at a gym. Try watching a new workout video each week. Take an exercise class. Find something that keeps you interested. ??? Ask family and friends to help you stay motivated. The healthy lifestyle changes can benefit them as well by partnering up and working out together. ??? Make other lifestyle changes to improve your heart and overall health. Quit smoking. Make changes to lower your stress. Lose excess weight. And lower your blood pressure and cholesterol. ??? It's important to keep an open conversation with your healthcare provider about your progress and goals. ?? Last Reviewed Date: 2024 00:00:00 ?? [id number] [employer]. All rights reserved. This information is not intended as a substitute for professional medical care. Always follow your healthcare professional's instructions. ?? * Event Display: Hemodynamic Procedure Report Authored Date: [id number] Admission evaluation note * Sebastien Mir NP: MODIFY, PERFORM Event Display: Admission Note Authored Date: [id number] Patient: ??GLADU, MYNOR ? Age:??79 Years?Sex:??Female?:??1945?? History of Present Illness HPI:??Pt is a??79yo female??with PMHX??CABGx2??in??2018 by??Dr Fischer, HTN, HLD, ,??CAD,??moderate??MR,??DM2, stage IV lung cancer in remission, pulmonary embolism on eliquis. She presented for evaluation of d/t increasing RIVAS, fatigue, and syncope. Cardiac cath in 2021 showed patent bypass grafts.? She presented on 01/28 for elective TAVR and developed??Sinus rhythm with 2nd degree A-V block (Mobitz I). The TVP was kept in place and she was transferred to for monitoring and possible PPM placement. ? Review of Systems Constitutional: Denies fevers, chills, weight loss Eyes: No vision problems or changes CV: No CP, palpitations, dyspnea on exertion or when sleeping/lying flat Respiratory: No SOB, cough GI: No N/V, abdominal pain, diarrhea : Difficulty with urination, pain or burning MSK: No weakness Neurological: No numbness, tingling in the extremities, + anxiety and restless legs All other systems are negative Objective Measurements?? Height: 152 cm (01/28/25) Weight: 76.2 kg (01/28/25) Dry Weight: 76.2 kg (01/28/25) Body Mass Index:??32.98 kg/m2??Critical (01/28/25) ? Vital Signs?? Temperature: 99.5 DegF (01/29/25 04:00:00) Temperature Route: Oral (01/29/25 04:00:00) Pulse Rate: 61 bpm (01/28/25 10:09:00) Heart Rate Monitored:??101 bpm??High (01/29/25 04:00:23) Respiratory Rate: 20 br/min (01/29/25 04:00:23) Vented: No (01/29/25 04:00:00) Systolic Blood Pressure:??143 mm Hg??High (01/29/25 04:21:12) Diastolic Blood Pressure:??97 mm Hg??High (01/29/25 04:21:12) Blood pressure sites: Arm, left (01/29/25 04:00:00) Mean Arterial Pressure: 90 mm Hg (01/28/25 10:09:00) Pulse Pressure: 20 mm Hg (01/29/25 04:00:00) Oxygen Saturation:??88 %??Low (01/29/25 04:00:23) Mode of Delivery (Oxygen): Room air (01/29/25 04:00:00) ? Ventilator Settings?? No qualifying data available. ?? Intake/Output? 01/28 08:22 01/29 07:00 01/28 07:00 01/27 07:00 01/26 07:00 ?? 01/29 05:13 01/29 05:13 01/29 06:59 01/28 06:59 01/27 06:59 Intake ?240 ?0 ?240 ?0 ?0 Output ?400 ?0 ?400 ?0 ?0 Net Total ? -160 ?0 ? -160 ?0 ?0 ? Urine Count ?1 ?0 ?1 ?0 ?0 ? Physical Exam General- well appearing anxious Neuro -AAOx3, non-focal exam Cardiovascular- S1, S2,+ murmur, no??gallops or rubs. ?? Extremities- warm and well perfused, + peripheral pulses without edema Respiratory- CTA on room air GI- ABD S/R/NT, +BSx4 tolerating diet. Last BM?01/28 - Voiding without difficulty Integumentary- Bilateral groins soft nontender, no hematoma. R fem TPV in place Assessment/Plan Diagnoses Anxiety ??(F41.9) Arthritis ??(M19.90) Depression ??(F32.A) Diabetes mellitus ??(E11.9) GERD (gastroesophageal reflux disease) ??(K21.9) H/O: lung cancer ??(Z85.118) HB (heart block) ??(I45.9) HLD (hyperlipidemia) ??(E78.5) Hx of pulmonary embolus ??(Z86.711) Hypertension ??(I10) On continuous oral anticoagulation ??(Z79.01) Restless leg syndrome ??(G25.81) S/P TAVR (transcatheter aortic valve replacement) ??(Z95.2) ? PMH: Pt is a??79yo female??with PMHX??CABGx2??in??2018 [address]??Dr Fischer, HTN, HLD, ,??CAD,??moderate??MR,??DM2, stage IV lung cancer in remission, pulmonary embolism on eliquis. She presented for evaluation of d/t increasing RIVAS, fatigue, and syncope. Cardiac cath in 2021 showed patent bypass grafts.? She presented on 01/28 for elective TAVR and developed??Sinus rhythm with 2nd degree A-V block (Mobitz I). The TVP was kept in place and she was transferred to for monitoring and possible PPM placement. ?? 01/28 s/p?Successful transfemoral TAVR with a Medtronic evolute 29 millimeter valve ??Right femoral and left femoral artery hemostatic Perclose devices ??Right femoral venous sheath and transvenous pacing wire secured in place Right radial artery hemostatic with compression device ?? Data Keyer:??Crescencio Cardiac Surgeon:?Amado ?? Issues addressed during the post operative period are summarized below:? Neuro:?? Hx restless legs, anxiety bedrest until TVP removed continue home??Mirapex, sertraline, ??and??prn ativan -extra dose of ativan given for anxiety ? Cardiac:?? Hx HTN, HLD, CAD, CABGx2 Hold?? home verapamil and metoprolol in the setting of heart block home isosorbide and lisinopril orders in place with holding parameters ?? s/p TAVR -?? - groins w/o hematoma - Rhythm/EKG:??Wenckebach and CHB anticoagulation->need to clairfy if asa and eliquis or just eliquis ?? PVC cardiology consult place for EP evaluation and PPM placement ?? TAVR f/u Patient will follow up in TAVR clinic as scheduled Patient will have a follow up echo as scheduled. Patient will need to have a cbc and bmp drawn one week post discharge. Patient will resume all medications and treatments as prescribed by primary care providers as priorto TAVR procedure. ? Pulm:?? Hx Stage IV lung cancer in remission Hx PE on eliquis - Room air holding eliquis until decision on ppm is made??this morning ?? GI:?? Hx GERD - PPI for GI prophylaxis NPO pending ppm evaluation ?? Renal:?? - Cr Baseline 0.83/today 0.7 - voiding w/o issues?? - BMP in one week post TAVR ?? Endo Hx DM poc tid ac/hs with lispro sliding scale as needed ?? ID:?? - Completed per post-operative protocol? Disposition:??M3 ?? Patient continues to require critical care services due to the following issues being addressed which require interventions and monitoring that can only be performed in the CC.?1.Esequiel Baldwin with TVP in place s/p tavr ? My services included: hemodynamic management,?fluid management, physical examination, reviewing imaging studies, reviewing laboratory studies, medications, documentation??and reviewing the patient???s condition with consultants and family members??as part of the decision making process.? Total time spent does not include time spent on rounds with attending physician. ?? Total time spent providing critical care services?60 ?minutes.? Histories Allergies Allergies ?(Active and Proposed Allergies Only) Bactrim? (Severity: Unknown severity, Onset: Unknown) ?Reactions: Rash ?Comments: feet and legs rash HYDROmorphone? (Severity: Unknown severity, Onset: Unknown) ?Reactions: Hallucinations cloNIDine? (Severity: Unknown severity, Onset: Unknown) ?Reactions: Hallucinations gabapentin? (Severity: Unknown severity, Onset: Unknown) ?Reactions: hallucinations morphine? (Severity: Unknown severity, Onset: Unknown) ?Reactions: hallucinations Adhesive Bandage? (Severity: Unknown severity, Onset: Unknown) ?Reactions: Rash, Rash ? Past Medical History/Problem List Active Problems(11) Anxiety Arthritis CAD S/P percutaneous coronary angioplasty Coronary atherosclerosis due to calcified coronary lesion Depression Diabetes mellitus GERD (gastroesophageal reflux disease) Hypertension Insomnia Obese class I Restless leg syndrome ? Past Surgical History No surgery history documented. ? Social History Tobacco Details:??Former smoker ? Psychosocial History ? Family History No Family History documented. ? Medications Home Medications Acetaminophen (Tylenol Extra Strength 500 mg oral tablet)??1 tab(s) 500 Milligram By Mouth Every 4 hours as needed as needed for pain apixaban??5 Milligram By Mouth 2 times a day Aspirin (aspirin 81 mg oral enteric coated tablet)??81 Milligram 1 tab(s) By Mouth Daily Atorvastatin (atorvastatin 80 mg oral tablet)??1 tab(s) 80 Milligram By Mouth Daily at bedtime Cyanocobalamin (Vitamin B12 500 mcg oral tablet)??1 tab(s) 500 Microgram By Mouth Daily Folic Acid (folic acid 1 mg oral tablet)??1 Milligram 1 tablet By Mouth Daily Hyoscyamine (hyoscyamine 0.125 mg oral tablet)??0.125 Milligram 1 tablet By Mouth 2 times a day Insulin Glargine (Lantus Solostar Pen 100 units/mL subcutaneous solution)??See Instructions Inject 12 units and alternate with 14 units every other day. Isosorbide Mononitrate (isosorbide mononitrate 30 mg oral tablet, extended release)??1 tab(s) 30 Milligram By Mouth Daily in AM Lisinopril (lisinopril 2.5 mg oral tablet)??2.5 Milligram 1 tablet By Mouth Daily Loperamide (loperamide 2 mg oral capsule)??2 Milligram 1 capsule By Mouth Every 4 hours as needed for loose stool Lorazepam (LORazepam 0.5 mg oral tablet)??1 tab(s) 0.5 Milligram By Mouth Daily as needed as neededfor anxiety Metformin (metFORMIN 500 mg oral tablet)??1 Each 500 Milligram By Mouth 2 times a day Metoprolol (metoprolol 25 mg oral tablet)??50 Milligram 2 tablet By Mouth Daily at bedtime Omeprazole (omeprazole 40 mg oral enteric coated capsule)??1 capsule 40 Milligram By Mouth Daily Ondansetron (Zofran ODT 4 mg oral tablet, disintegrating)??1 tab(s) By Mouth Once as needed as needed for nausea/vomiting Oxycodone (oxyCODONE 10 mg oral tablet)??TAKE 1 TABLET BY MOUTH EVERY 6 TO 8 HOURS NEEDED FOR PAIN Pancrelipase (Zenpep 10,000 units-32,000 units-42,000 units oral delayed release capsule)??1 capsule By Mouth 3 times a day with each meal and snack Pramipexole (Mirapex 0.25 mg oral tablet)??1 tab(s) 0.25 Milligram By Mouth 2 times a day as neededrestless legs Sertraline (sertraline 100 mg oral tablet)??1.5 tab(s) 150 Milligram By Mouth Daily Trazodone (traZODone 50 mg oral tablet)??50 Milligram 1 tablet By Mouth Daily at bedtime Verapamil (verapamil 100 mg oral capsule, extended release)??1 capsule 100 Milligram By Mouth Dailyat bedtime ? Inpatient Medications Medications (19) Active SCHEDULED: (10) Aspirin 81 mg Chew Tablet (Aspirin Chew Tablet) ??81 mg, By Mouth, Daily Atorvastatin 80 mg Tablet (atorvastatin 80 mg oral tablet) ??80 mg, By Mouth, Daily at bedtime Insulin Lispro 100 units/mL Inj (Insulin LISPRO Sliding Scale) ??2-10 units, Subcutaneous Injection, 3 times a day before meals Isosorbide Mononitrate 30 mg ER Tablet (isosorbide mononitrate 30 mg oral tablet, extended release)??30 mg, By Mouth, Daily in AM Lisinopril 5 mg Tablet (lisinopril 5 mg oral tablet) ??2.5 mg, By Mouth, Daily Magnesium Sulfate 2 Gm /50 mL (Magnesium Sulfate IVPB) ??2 Gm 50 mL, IVPB, Once Pancrelipase 10,000 unit Capsule (Zenpep Capsule) ??10,000 units 1 capsule, By Mouth, 3 times a daywith meals Pantoprazole 40 mg EC Tablet (pantoprazole 40 mg oral delayed release tablet) ??40 mg, By Mouth, 2 times a day Sertraline 50 mg Tablet (sertraline 50 mg oral tablet) ??150 mg, By Mouth, Daily Trazodone 50 mg Tablet (traZODone 50 mg oral tablet) ??50 mg, By Mouth, Daily at bedtime CONTINUOUS: (3) NaCL 0.9% (1000 mL) Cont IV 1000 mL (NaCL 0.9% 1000 mL) ??1,000 mL, IV Infusion, 10 mL/hr NaCL 0.9% (500 mL) Cont IV 500 mL (NaCL 0.9% 500 mL) ??500 mL, IV Infusion, 100 mL/hr NaCL 0.9% (500 mL) Cont IV 500 mL (NaCL 0.9% 500 mL) ??500 mL, IV Infusion, 100 mL/hr PRN: (6) Acetaminophen 325 mg Tablet (Acetaminophen Tablet) ??650 mg, By Mouth, Every 8 hours Lorazepam 0.5 mg Tablet (LORazepam 0.5 mg oral tablet) ??0.5 mg, By Mouth, Daily NaCl 0.9% Flush 3ml (Flush NaCl 0.9%) ??3 mL, IV Push, Every 8 hours Ondansetron 2mg/mL Inj (2mL Vial) (Ondansetron Inj) ??4 mg, IV Push, Every 6 hours OxyCODONE 5 mg IR Tablet (oxyCODONE 5 mg oral tablet) ??10 mg, By Mouth, 3 times a day Pramipexole 0.25 mg Tablet (Mirapex 0.25 mg oral tablet) ??0.25 mg, By Mouth, 2 times a day ? Results Recent Labs BLOOD BANK RBC Unit ID [id number] ()?? 01/28/2025 04:08 RBC Available RE ()?? 01/28/2025 04:08 ?? BLOOD COUNT & DIFF WBC 8.6 k/mm3 ()?? 01/29/2025 03:08 RBC 3.33 m/mm3 (Low)?? 01/29/2025 03:08 Hgb 10.4 Gm/dL (Low)?? 01/29/2025 03:08 Hct 31.5 % (Low)?? 01/29/2025 03:08 MCV 94.6 femtoliters ()?? 01/29/2025 03:08 MCH 31.2 pg ()?? 01/29/2025 03:08 MCHC 33.0 Gm/dL ()?? 01/29/2025 03:08 Platelet Count 198 k/mm3 ()?? 01/29/2025 03:08 RDW-SD 43.9 femtoliters ()?? 01/29/2025 03:08 MPV 10.3 femtoliters ()?? 01/29/2025 03:08 Nucleated RBC (Automated) 0.0 #/100 WBC'S ()?? 01/29/2025 03:08 Abs. NRBC 0.0 k/mm3 ()?? 01/29/2025 03:08 Abs. Neut 6.8 k/mm3 ()?? 01/29/2025 03:08 Abs. Lymph 0.9 k/mm3 ()?? 01/29/2025 03:08 Abs. [place] 0.8 k/mm3 ()?? 01/29/2025 03:08 Abs. Eo 0.0 k/mm3 ()?? 01/29/2025 03:08 Abs. Baso 0.0 k/mm3 ()?? 01/29/2025 03:08 Neut % 79.7 % (High)?? 01/29/2025 03:08 Lymph % 10.0 % (Low)?? 01/29/2025 03:08 [place] % 9.3 % ()?? 01/29/2025 03:08 Eos % 0.4 % ()?? 01/29/2025 03:08 Baso % 0.1 % ()?? 01/29/2025 03:08 Imm Gran 0.5 % ()?? 01/29/2025 03:08 Abs. Imm Gran 0.0 k/mm3 ()?? 01/29/2025 03:08 ?? CARDIAC Nt-Probnp 538 pg/mL (High)?? 01/28/2025 09:00 ?? CHEM GENERAL Sodium 135 mmol/L ()?? 01/29/2025 03:08 Potassium 4.2 mmol/L ()?? 01/29/2025 03:08 Chloride 99 mmol/L ()?? 01/29/2025 03:08 Bicarbonate Level 25 mmol/L ()?? 01/29/2025 03:08 Anion Gap 11 mmol/L ()?? 01/29/2025 03:08 Glucose, POC 216 mg/dL (High)?? 01/28/2025 22:16 BUN 16 mg/dL ()?? 01/29/2025 03:08 Creatinine-Blood 0.70 mg/dL ()?? 01/29/2025 03:08 Estimated GFR Creatinine 89 ML/MIN/1.73 M2 ()?? 01/29/2025 03:08 Magnesium 1.5 mg/dL (Low)?? 01/29/2025 03:08 ?? COAG POC ACT-LR 210.0 seconds ()?? 01/28/2025 11:00 ?? URINE OTHER Est Creatinine Clearance 47.96 mL/min ()?? 01/29/2025 04:06 ?? VIROLOGY COVID-19 PCR Specimen Source NASAL ()?? 01/28/2025 17:30 COVID-19 PCR Result NEGATIVE ()?? 01/28/2025 17:30 ? Blood Glucose Trend Glucose, POC:??216 mg/dL??High (01/28/25 22:16:00) Glucose, POC:??160 mg/dL??High (01/28/25 17:49:00) Glucose, POC:??326 mg/dL??High (01/28/25 09:11:00) ? Microbiology ?? COVID-19 (2019 Novel Coronavirus) PCR?? Completed?? Source: Nasal Body Site: Nose Collected Dt/Tm: 01/28/2025 17:14 Last Updated Dt/Tm: 01/28/2025 18:40 ? EKG study * Event Display: ECG 12-Lead Authored Date: Please click on pdf link to open report * Event Display: ECG 12-Lead Authored Date: Ventricular Rate: 103 BPM Atrial Rate: 103 BPM P-R Interval: 160 ms QRS Duration: 142 ms Q-T Interval: 408 ms QTC Calculation(Bazett): 534 ms P [place]: 68 degrees R [place]: -43 degrees T [place]: 102 degrees Atrial-sensed ventricular-paced rhythm Abnormal ECG When compared with ECG of 29-Jan-2025 16:37, Vent. rate has increased by 2 bpm Confirmed by CHRIS CAMARILLO MD ([id number]) on 01/30/2025 1:02:55 PM Varnell: CHRIS CAMARILLO MD * Event Display: ECG 12-Lead Authored Date: [id number] Please click on pdf link to open report * Event Display: ECG 12-Lead Authored Date: [id number] Ventricular Rate: 101 BPM Atrial Rate: 101 BPM P-R Interval: 158 ms QRS Duration: 140 ms Q-T Interval: 410 ms QTC Calculation(Bazett): 531 ms P [place]: 73 degrees R [place]: 136 degrees T [place]: 79 degrees Atrial-sensed ventricular-paced rhythm Abnormal ECG When compared with ECG of 29-Jan-2025 07:38, Electronic ventricular pacemaker has replaced conducted Sinus rhythm Confirmed by Lyle Cook ([id number]) on 01/29/2025 5:16:35 PM Varnell: Lyle Cook * Event Display: ECG 12-Lead Authored Date: [id number] Please click on pdf link to open report * Event Display: ECG 12-Lead Authored Date: [id number] Ventricular Rate: 95 BPM Atrial Rate: 95 BPM P-R Interval: 192 ms QRS Duration: 148 ms Q-T Interval: 428 ms QTC Calculation(Bazett): 537 ms P [place]: 72 degrees R [place]: 8 degrees T [place]: 139 degrees Normal sinus rhythm Left bundle branch block Abnormal ECG When compared with ECG of 28-Jan-2025 13:24, [place] interval has decreased Vent. rate has increased by 55 bpm Questionable change in QRS axis T wave inversion no longer evident in Inferior leads T wave inversion more evident in Lateral leads QT has lengthened Confirmed by LILIAN LR MD ([id number]) on 01/29/2025 1:19:55 PM Varnell: LILIAN LR MD Heart * Event Display: Echocardiogram - Complete Authored Date: [id number] Transthoracic Echocardiography Report (TTE) Patient Demographics Patient Name MYNOR DE JESUS Date of Study 01/29/2025 Corporate Gender Female Facility Race .[id number] Ethnicity Date of 1945 Height: 59.84 inches Age 79 year(s) Weight: 167.55 pounds Accession Number [id number] BSA: 1.73 m2 Room Number [id number] BMI: 32.89 kg/m2 Referring Crescencio De Souza MD Interpreting Erick Resendez Physician Clare Murguia Physician DO [employer] Installation Supervisor Celeste Magallon [facility] Indications Aortic stenosis. Clinical History Aortic stenosis. Syncope. CABG. Dyspnea. Study Data Type of Study TTE procedure:Echo Complete-Doppler, Colorflow, M-Mode. Procedure Information:Post TAVR Follow-up Study Date01/29/2025 Start Time: 08:45 AM [place] [facility] [place] Status: Bedside Patient Status: Routine Technical Quality: Adequate Blood Pressure:121/60 mmHg EKG: Normal sinus rhythm HR: 88 bpm Allergies - Bactrim. - Latex. - Dilaudid (hydromorphone). - Morphine. - Other allergy:(gabapentin, clonodine). 2D Measurements LV Diastolic Dimension: 3.5 cm LV Systolic Dimension: 2.5 cm LV Septum Diastolic: 1.2 cm LV PW Diastolic: 1.3 cm LA Dimension: 4.6 cm LA ESV (BP):68.3 ml LVOT Stroke Volume: 62.82 ml LA ESV Index: 39 ml/m2 Stroke Volume Index36.31 ml/m2 LVOT: 1.8 cm Cardiac Index:3.2 l/min/m2 Ascending Aorta:3.3 cm Doppler Measurements AV Peak Velocity: 190 cm/s MV Peak E-Wave: 83.6 cm/s AV Peak Gradient: 14.44 mmHg MV Peak A-Wave: 143 cm/s AV Mean Gradient: 8 mmHg MV E/A Ratio: 0.58 AV VTI:32.8 cm MV P1/2t: 39 msec LVOT Peak Velocity: 139 cm/s MV Mean Gradient: 3 mmHg LVOT VTI24.7 cm MV Area (continuity): 2.31 cm2 AV Area (Continuity):1.92 cm2 MV Deceleration Time: 132 msec MV Area (PHT): 5.64 cm2 TR Velocity:177 cm/s TR Gradient:12.53 mmHg PV Peak Velocity: 125 cm/s PV Peak Gradient: 6.25 mmHg E' Septal Velocity: 3.37 cm/s E' Lateral Velocity: 5.77 cm/s E/Med E':24.35975 E/Lat E':14.33142 Cardiac Anatomy Left Ventricle/Interventricular Septum The left ventricular size is normal. The left ventricular wall thickness is mildly increased. The LV systolic function is normal . Volumetric ejection fraction is calculated at 65 %. There are no regional wall motion abnormalities. Unable to assess diastolic function due to E/A fusion . There is abnormal septal motion consistent with LBBB . Left Atrium/Interatrial Septum The left atrium is mildly dilated. Aortic Valve There is bioprosthetic valve in the aortic position, which appears to be well-seated (29 Evolut Pro TAVR). There is a trace paravalvular leak. No central regurgitation, mean gradient 7 mmHg. Mitral Valve There is mild mitral annular calcification. There is trace mitral regurgitation. There is no significant mitral stenosis. Aorta The ascending aorta and aortic root are normal in size. Right Ventricle The right ventricle is normal in size and function. Right Atrium The right atrium is normal in size. Pulmonic Valve The pulmonic valve appears normal. Tricuspid Valve The tricuspid valve appears normal . There is trace tricuspid valve regurgitation. Pumonary Artery The pulmonary artery systolic pressure estimation is within normal limits. Venous Structures The inferior vena cava size is normal with normal inspiratory collapse. Pericardium/Extracardiac There is no pericardial effusion. Summary The left ventricular size is normal. The left ventricular wall thickness is mildly increased. The LV systolic function is normal . Volumetric ejection fraction is calculated at 65 %. There are no regional wall motion abnormalities. Unable to assess diastolic function due to E/A fusion . There is abnormal septal motion consistent with LBBB . The right ventricle is normal in size and function. There is bioprosthetic valve in the aortic position, which appears to be well-seated (29 Evolut Pro TAVR). There is a trace paravalvular leak. No central regurgitation, mean gradient 7 mmHg. Comparison Comparison is made to the study of January 28, 2025. Signature * Event Display: Echocardiogram - Complete Authored Date: [id number] * Event Display: Echocardiogram - Complete Authored Date: [id number] Transthoracic Echocardiography Report (TTE) Patient Demographics Patient Name MYNOR DE JESUS Date of Study 01/28/2025 Corporate Gender Female Facility Race .[id number] Ethnicity Date of 1945 Age 79 year(s) Accession Number [id number] Room Number B2102 Referring Crescencio De Souza MD Interpreting [place] Physician Physician Solar Installation Supervisor Abraham Schwab Fellow Dee De Souza MD Indications Aortic valve disease, non-rheumatic. Additional Indications:s/p TAVR Clinical History s/p 29 Evolut Pro Plus TAVR Study Data Type of Study TTE procedure:Echo 2D Limited or Follow-up, Colorflow, Doppler Follow-up or Limited. 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 - Latex. - Dilaudid (hydromorphone). - Morphine. - Other allergy:(gabapentin, clonodine). Doppler Measurements AV Peak Velocity: 140 cm/s AV Peak Gradient: 7.84 mmHg AV Mean Gradient: 5 mmHg AV VTI:32.5 cm Cardiac Anatomy Left Ventricle/Interventricular Septum The left ventricle is poorly visualized. Aortic Valve There is bioprosthetic valve in the aortic position, which appears to be well-seated (29 Evolut Pro TAVR). There is mild paravalvular leak. No central regurgitation. No concern for bioprosthetic valve failure (V-max 1.6 m/s, mean gradient 5 mmHg). Pericardium/Extracardiac There is no pericardial effusion. Summary -Limited echo post TAVR. -There is bioprosthetic valve in the aortic position, which appears to be well-seated (29 Evolut Pro TAVR). There is mild paravalvular leak. No central regurgitation. No concern for bioprosthetic valve failure (V-max 1.6 m/s, mean gradient 5 mmHg). Comparison Comparison is made to the study of October 17, 2020. There is a TAVR valve in the aortic position. Signature * Event Display: Echocardiogram - Complete Authored Date: [id number] Cardiology * Event Display: Cardiac Rhythm Strips Authored Date: Hospital Progress note * Matt Conroy RN: VERIFY, PERFORM, SIGN Event Display: Progress Note Hospital Authored Date: [id number] Patient: MYNOR DE JESUS Age: 79 years Sex: Female : 1945 Associated Diagnoses: None Author: Matt Conroy RN Findings Problem Related to Alteration in Cardiac Function (new) : Alteration in Cardiac Function/new 01/29/2025 21:00 EDT Alteration in Cardiac Status Related to Cardiac Procedure, Dysrhythmia Goals & Outcomes, Cardiac Status Pt will resume/maintain adequate cardiac output, Pt will resume/maintain adequate hemodynamic status, Pt will resume/maintain adequate respiratory function, Pt will resume/maintain intact neuro function, Pt will maintain adequate GI/ function appropriate for pt, Heart rate control/rhythm is maintained Cardiac Interventions Implemented Assess/monitor cardiac status, Assess/monitor neuro status, Assess/monitor respiratory status, Assess for tolerance of IV infusions; verify rate & dose, Call/Report variances in ECG to provider, Document & Monitor O2 Sats; Administer O2 as ordered, Ensure adequate caloric intake, If no bowel movement in 3 days activate bowel regime, Monitor & document daily weight, Monitor anticoagulation values, Monitor ECG w/administration of antiarrhythmics (CO 13.420), Obtain 12 Lead ECG and CXR as ordered, Prep pt for treatments & procedures, Teach/encourage deep breath & cough exercises, Teach/encourage use of incentive spirometer, Team conversation regarding appropriate level of care, Turn & reposition Q2 hours per activity restrictions, Useadjunctive therapies per Standards of Practice Goals/Interventions, Cardiac Yes Cardiac, Problem Start 01/28/2025 13:40 Reviewed Plan with, Cardiac Status Patient Patient Progression, Cardiac Status Patient progressing according to plan . Nursing Data Vital Signs : VITAL SIGNS SECTION 01/29/2025 23:37 EDT Temperature 97.4 DegF Temperature Route Oral Pulse Rate 102 bpm H Respiratory Rate 18 br/min Systolic Blood Pressure 121 mm Hg Diastolic Blood Pressure 50 mm Hg L Blood pressure sites Arm, right Mean Arterial Pressure 74 mm Hg Pulse Pressure 71 mm Hg Oxygen Saturation 90 % L . Evaluation Pt is A&Ox4 but very forgetful, RA, VSS, V paced on tele. Pt ambulated to the bathroom with thewalker and endorsed not feeling as steady as she normally does. Pt educated multiple times to not get out of bed without assistance. Pain managed with PRN oxy. Medfs given per DEC. Pt educated on importance of not using the L arm due to pacemaker placement yesterday. Bed alarm on, safety maintained, call steven within reach, instructed to use call steven. See CIS for more information. . Discharge Information Cardiac Rehab Discharge : Cardiac Rehab 01/28/2025 13:02 EDT Patient attending Phase II Yes Where will pt be attending II [facility] [address] [facility] [phone] * Pablo Odonnell MD: PERFORM Event Display: Progress Note Hospital Authored Date: [id number] Patient: ??DEE DE JESUSOTHY ? Age:??79 Years?Sex:??Female?:??1945?? Event Name?? Event Result?? Normal Range?? Date/Time?? WBC 8.6 k/mm3 4 k/mm3 - 11 k/mm3 01/29/25 03:08:00 RBC 3.33 m/mm3??Low 4.2 m/mm3 - 5.4 m/mm3 01/29/25 03:08:00 Hgb 10.4 Gm/dL??Low 11.7 Gm/dL - 15.5 Gm/dL 01/29/25 03:08:00 Hct 31.5 %??Low 35.7 % - 45.8 % 01/29/25 03:08:00 MCV 94.6 femtoliters 80 femtoliters - 100 femtoliters 01/29/25 03:08:00 MCH 31.2 pg 27 pg - 34 pg 01/29/25 03:08:00 MCHC 33 Gm/dL 33 Gm/dL - 37 Gm/dL 01/29/25 03:08:00 Platelet Count 198 k/mm3 150 k/mm3 - 460 k/mm3 01/29/25 03:08:00 RDW-SD 43.9 femtoliters ?? 01/29/25 03:08:00 MPV 10.3 femtoliters 9.4 femtoliters - 12.4 femtoliters 01/29/25 03:08:00 Nucleated RBC (Automated) 0 #/100 WBC'S ?? 01/29/25 03:08:00 Abs. NRBC 0 k/mm3 ?? 01/29/25 03:08:00 Abs. Neut 6.8 k/mm3 1.3 k/mm3 - 7 k/mm3 01/29/25 03:08:00 Abs. Lymph 0.9 k/mm3 0.8 k/mm3 - 3.1 k/mm3 01/29/25 03:08:00 Abs. [place] 0.8 k/mm3 0.4 k/mm3 - 0.9 k/mm3 01/29/25 03:08:00 Abs. Eo 0 k/mm3 0 k/mm3 - 0.4 k/mm3 01/29/25 03:08:00 Abs. Baso 0 k/mm3 0 k/mm3 - 0.1 k/mm3 01/29/25 03:08:00 Neut % 79.7 %??High 44 % - 76 % 01/29/25 03:08:00 Lymph % 10 %??Low 15 % - 43 % 01/29/25 03:08:00 [place] % 9.3 % 4.5 % - 10.5 % 01/29/25 03:08:00 Eos % 0.4 % 0 % - 6 % 01/29/25 03:08:00 Baso % 0.1 % 0 % - 2 % 01/29/25 03:08:00 Imm Gran 0.5 % ?? 01/29/25 03:08:00 Abs. Imm Gran 0 k/mm3 ?? 01/29/25 03:08:00 Blood Type A Positive ?? 01/28/25 19:08:15 Antibody Screen Negative ?? 01/28/25 19:08:15 Sodium 135 mmol/L 133 mmol/L - 145 mmol/L 01/29/25 03:08:00 Potassium 4.2 mmol/L 3.6 mmol/L - 5.2 mmol/L 01/29/25 03:08:00 Chloride 99 mmol/L 98 mmol/L - 107 mmol/L 01/29/25 03:08:00 Bicarbonate Level 25 mmol/L 22 mmol/L - 29 mmol/L 01/29/25 03:08:00 Anion Gap 11 mmol/L 4 mmol/L - 17 mmol/L 01/29/25 03:08:00 Glucose, POC 229 mg/dL??High 70 mg/dL - 99 mg/dL 01/29/25 13:30:00 Glucose, POC 225 mg/dL??High 70 mg/dL - 99 mg/dL 01/29/25 06:06:00 Glucose, POC 216 mg/dL??High 70 mg/dL - 99 mg/dL 01/28/25 22:16:00 Glucose, POC 160 mg/dL??High 70 mg/dL - 99 mg/dL 01/28/25 17:49:00 BUN 16 mg/dL 8 mg/dL - 23 mg/dL 01/29/25 03:08:00 Creatinine-Blood 0.7 mg/dL 0.5 mg/dL - 1 mg/dL 01/29/25 03:08:00 Estimated GFR Creatinine 89 ML/MIN/1.73 M2 ?? 01/29/25 03:08:00 Magnesium 1.5 mg/dL??Low 1.6 mg/dL - 2.3 mg/dL 01/29/25 03:08:00 COVID-19 PCR Specimen Source NASAL ?? 01/28/25 17:30:00 COVID-19 PCR Result NEGATIVE ?? 01/28/25 17:30:00 Est Creatinine Clearance 47.96 mL/min ?? 01/29/25 04:06:44 ? Medications (18) Active Scheduled: (9) Aspirin 81 mg Chew Tablet ??81 mg, By Mouth, Daily Atorvastatin 80 mg Tablet ??80 mg, By Mouth, Daily at bedtime Insulin Lispro 100 units/mL Inj ??2-10 units, Subcutaneous Injection, 3 times a day before meals Isosorbide Mononitrate 30 mg ER Tablet ??30 mg, By Mouth, Daily in AM Lisinopril 5 mg Tablet ??2.5 mg, By Mouth, Daily Pancrelipase 10,000 unit Capsule ??10,000 units 1 capsule, By Mouth, 3 times a day with meals Pantoprazole 40 mg EC Tablet ??40 mg, By Mouth, 2 times a day Sertraline 50 mg Tablet ??150 mg, By Mouth, Daily Trazodone 50 mg Tablet ??50 mg, By Mouth, Daily at bedtime Continuous: (3) NaCL 0.9% (1000 mL) Cont IV 1000 mL ??1,000 mL, IV Infusion, 10 mL/hr NaCL 0.9% (500 mL) Cont IV 500 mL ??500 mL, IV Infusion, 100 mL/hr NaCL 0.9% (500 mL) Cont IV 500 mL ??500 mL, IV Infusion, 100 mL/hr PRN: (6) Acetaminophen 325 mg Tablet ??650 mg, By Mouth, Every 8 hours Lorazepam 0.5 mg Tablet ??0.5 mg, By Mouth, Daily NaCl 0.9% Flush 3ml ??3 mL, IV Push, Every 8 hours Ondansetron 2mg/mL Inj (2mL Vial) ??4 mg, IV Push, Every 6 hours OxyCODONE 5 mg IR Tablet ??10 mg, By Mouth, 3 times a day Pramipexole 0.25 mg Tablet ??0.25 mg, By Mouth, 2 times a day ?? Vital Signs (last 24 hrs) ?Last Charted Resp Rate?L??11br/min ??(APR 13:00) SBP?113 mm Hg ??(JAN 18 13:00) DBP?56 mm Hg ??(JAN 18 13:00) SpO2?L??92% ??(JAN 29 13:00) Weight?79 kg ??(JAN 18 06:21) ?? Active Problems??(11) Anxiety?? Arthritis?? CAD S/P percutaneous coronary angioplasty?? Coronary atherosclerosis due to calcified coronary lesion?? Depression?? Diabetes mellitus?? GERD (gastroesophageal reflux disease)?? Hypertension?? Insomnia?? Obese class I?? Restless leg syndrome? This patient is??1 day status post transcatheter aortic valve replacement. ??The patient??had some complete heart block overnight??and continues to have a significant bundle branch block. ??The patient have a permanent place maker placed today. ?? Patient seen, examined, and discussed with the heart and vascular team on critical care unit roundsin the AM/PM and throughout the day. ??Patient continues to require critical care services due to the following issues being addressed and requiring interventions and monitoring which can only be received in a critical care unit. ? 1.?? Heart block, permanent pacemaker today.?? Temporary wire in place but not being utilized at this time. ?? My services included: hemodynamic management, ventilator/respiratory management, fluid management, physical examination, reviewing imaging studies, reviewing laboratory studies, medications, documentation and reviewing the patient??s condition with consultants and family members as part of the decision making process.? Total time spent providing critical care services _33__ min.? * Elroy Coello: PERFORM Event Display: Progress Note Hospital Authored Date: Patient: ??GLADU, MYNOR ? Age:??79 Years?Sex:??Female?:??1945?? Subjective Postoperative day 1?? s/p transfemoral TAVR ?? Post-valve deployment presented with CHB with junctional escape rhythm, as well as a bifascicular block.? Overnight, required minimal pacing, however this rhythm persisted.? Seen by EP this morning. Planning PPM this afternoon.? TVP at a backup of 60 as the patient dropped to the 40s later this morning with a more idioventricular appearing rhythm .? Review of Systems Allergies Allergies ?(Active and Proposed Allergies Only) Bactrim? (Severity: Unknown severity, Onset: Unknown) ?Reactions: Rash ?Comments: feet and legs rash HYDROmorphone? (Severity: Unknown severity, Onset: Unknown) ?Reactions: Hallucinations cloNIDine? (Severity: Unknown severity, Onset: Unknown) ?Reactions: Hallucinations gabapentin? (Severity: Unknown severity, Onset: Unknown) ?Reactions: hallucinations morphine? (Severity: Unknown severity, Onset: Unknown) ?Reactions: hallucinations Adhesive Bandage? (Severity: Unknown severity, Onset: Unknown) ?Reactions: Rash, Rash ? Past Medical History Active Problems(11) Anxiety Arthritis CAD S/P percutaneous coronary angioplasty Coronary atherosclerosis due to calcified coronary lesion Depression Diabetes mellitus GERD (gastroesophageal reflux disease) Hypertension Insomnia Obese class I Restless leg syndrome ? Past Surgical History No surgery history documented. ? Objective ?? Physical Exam Physical assessment today reveals an alert oriented patient in no distress.?? Cardiac assessment reveals S1, S2 without murmurs, gallops or rubs. Lung sounds are clear to auscultation without wheezes, rales, or rhonchi.?? Abdomen is soft, nontender, nondistended with positive bowel sounds.?? Groins without firmness of hematoma. ?? Lower extremities are without edema. Pedal pulses are palpable. ? Results Recent Labs BLOOD BANK Blood Type A Positive ()?? 01/28/2025 19:08 Antibody Screen Negative ()?? 01/28/2025 19:08 RBC Unit ID [id number] ()?? 01/28/2025 04:08 RBC Available RE ()?? 01/28/2025 04:08 ?? BLOOD COUNT & DIFF WBC 8.6 k/mm3 ()?? 01/29/2025 03:08 RBC 3.33 m/mm3 (Low)?? 01/29/2025 03:08 Hgb 10.4 Gm/dL (Low)?? 01/29/2025 03:08 Hct 31.5 % (Low)?? 01/29/2025 03:08 MCV 94.6 femtoliters ()?? 01/29/2025 03:08 MCH 31.2 pg ()?? 01/29/2025 03:08 MCHC 33.0 Gm/dL ()?? 01/29/2025 03:08 Platelet Count 198 k/mm3 ()?? 01/29/2025 03:08 RDW-SD 43.9 femtoliters ()?? 01/29/2025 03:08 MPV 10.3 femtoliters ()?? 01/29/2025 03:08 Nucleated RBC (Automated) 0.0 #/100 WBC'S ()?? 01/29/2025 03:08 Abs. NRBC 0.0 k/mm3 ()?? 01/29/2025 03:08 Abs. Neut 6.8 k/mm3 ()?? 01/29/2025 03:08 Abs. Lymph 0.9 k/mm3 ()?? 01/29/2025 03:08 Abs. [place] 0.8 k/mm3 ()?? 01/29/2025 03:08 Abs. Eo 0.0 k/mm3 ()?? 01/29/2025 03:08 Abs. Baso 0.0 k/mm3 ()?? 01/29/2025 03:08 Neut % 79.7 % (High)?? 01/29/2025 03:08 Lymph % 10.0 % (Low)?? 01/29/2025 03:08 [place] % 9.3 % ()?? 01/29/2025 03:08 Eos % 0.4 % ()?? 01/29/2025 03:08 Baso % 0.1 % ()?? 01/29/2025 03:08 Imm Gran 0.5 % ()?? 01/29/2025 03:08 Abs. Imm Gran 0.0 k/mm3 ()?? 01/29/2025 03:08 ?? CARDIAC Nt-Probnp 538 pg/mL (High)?? 01/28/2025 09:00 ?? CHEM GENERAL Sodium 135 mmol/L ()?? 01/29/2025 03:08 Potassium 4.2 mmol/L ()?? 01/29/2025 03:08 Chloride 99 mmol/L ()?? 01/29/2025 03:08 Bicarbonate Level 25 mmol/L ()?? 01/29/2025 03:08 Anion Gap 11 mmol/L ()?? 01/29/2025 03:08 Glucose, POC 225 mg/dL (High)?? 01/29/2025 06:06 BUN 16 mg/dL ()?? 01/29/2025 03:08 Creatinine-Blood 0.70 mg/dL ()?? 01/29/2025 03:08 Estimated GFR Creatinine 89 ML/MIN/1.73 M2 ()?? 01/29/2025 03:08 Magnesium 1.5 mg/dL (Low)?? 01/29/2025 03:08 ?? COAG POC ACT-LR 210.0 seconds ()?? 01/28/2025 11:00 ?? URINE OTHER Est Creatinine Clearance 47.96 mL/min ()?? 01/29/2025 04:06 ?? VIROLOGY COVID-19 PCR Specimen Source NASAL ()?? 01/28/2025 17:30 COVID-19 PCR Result NEGATIVE ()?? 01/28/2025 17:30 ? Assessment/Plan ?? This is a??79yo female??with PMHX??CABGx2??in??2018 [address]??Dr Fischer, HTN, HLD, ,??CAD,??moderate??MR,??DM2, stage IV lung cancer in remission, pulmonary embolism on Eliquis. She presented for evaluation of d/t increasing RIVAS, fatigue, and syncope. Cardiac cath in 2021 showed patent bypass grafts.?? Primary Tub Chucker:??Crescencio ?? POD #1 S/P Transfemoral TAVR Operators: Amado / Crescencio ?? --Severe aortic stenosis s/p TAVR -AC/Antiplatelet:??ASA/Eliquis given hx of PE -Post-procedure echo:??MG 7mmHg, trace PVL ?? --Complete heart block --Junctional escape rhythm --Bifascicular block -Stable hemodynamics. TVP??in place (backup 60bpm) -EP lab today for PPM (Dr. Tenorio) ?? --CAD/HLD/HTN:?? -ASA (81mg PO daily)?? -Statin (Atorvastatin 80mg PO qhs) -BetaBlocker (held for CHB). -Lisinopril 2.5 mg PO QD, Imdur 30 mg PO QD ?? -Baseline Cr.??0.8 -Stable at baseline.? --Diet: Cardiac --VTE prophylaxis: SCD's ? DISPO:?NPO for PPM today. Transfer to telemetry??this afternoon. Likely discharge home tomorrow.? Critical care time: 30 minutes,??which does not include time spent performing separately billable procedures. ?? Patient seen and plan discussed??on morning rounds ?? Patient Care team information Care Team Personnel Name: Ngoc Sandhu RN Position: [facility] RN Member Role: Primary Care Nurse Name: Sary Waite MD Position: Reference Physician Member Role: PCP Address: [address] Telecom: Name: Andi Richardson RN Position: [facility] RN Member Role: Primary Care Nurse Name: Wilfrid Jenkins RN Position: [facility] Outreach Member Role: Primary Care Nurse Name: Gina Hair RN Position: [facility] ED RN W/OE and Tasks Member Role: Primary Care Nurse Name: Anna Gutiérrez RN Position: [facility] SN RN Member Role: Primary Care Nurse Name: Catalina Montilla RN Position: [facility] RN Member Role: Primary Care Nurse Name: Lyle Wei RN Position: [facility] RN Member Role: Primary Care Nurse Name: Opal Blanco RN Position: [facility] RN Member Role: Primary Care Nurse Name: Katt Wagner RN Position: [facility] AMB Nurse Member Role: Primary Care Nurse Name: Elroy Smith RN Position: [facility] RN Member Role: Primary Care Nurse Name: Ileana Holt RN Position: [facility] RN Member Role: Primary Care Nurse Name: Sarai Hazel RN Position: [facility] RN Member Role: Primary Care Nurse Name: Ida Andrade Position: [facility] TA Member Role: Patient Care Provider Care Team Related Persons Name: NEAL MANPREET Name: JUAN RAMON SHOOK Insurance Providers Guarantor name: MYNOR DE JESUS Health Plan Information #: 1 Payer: [employer] YAO O Member Number: [id number] Policy Number: NA Group Number: [id number] Health Plan Information #: 2 Payer: LUCRETIA YAO O Member Number: [id number] Policy Number: NA Group Number: [id number]
--- OUTSIDE RECORDS SUMMARY | 2025-02-03 17:42 | XMS_ITS | Referral Summary ---
Author Organization [facility] Address [address] [place] [address] Care Team Providers Care Sand Hauler Name Role Phone Sary Waite MD Primary Care Provider Encounters Date Type Department Care Team Description 12/01/2024 Telephone [facility] [address] [phone] Braille Translator: Mounika Goldman MD 11/27/2024 7:45 AM EST Procedure visit [facility] [address] [place] [phone] Braille Translator: Elma Gonzalez MD Basal cell carcinoma (BCC) [...] 137 mcg (0.1 %) nasal spray SMARTSI [place](s) Both Nares Twice Daily PRN 4 Active [...] Not on file Procedures * Due to [place] [employer] law, this organization might not be sharing negative HIV tests. Procedure Name Priority Date/Time Associated Diagnosis Comments MOHS SURGERY Routine 11/27/2024 Basal cell carcinoma (BCC) of forehead from Last 3 Months Results * Due to [place] [employer] law, this organization might not be sharing [...] Before the Dentist?: No Cautery set up:: [employer] [facility] Grounding pad site:: Left Arm Surgical [...] Insurance [facility] Care Teams Sand Hauler Relationship Specialty Start Date End Date Sary Waite MD [address] [place] [address] PCP - General Internal Medicine 11/18/24
--- OUTSIDE RECORDS SUMMARY | 2025-02-03 17:42 | XMS_ITS | Encounter Summary ---
Author Organization [facility] Address [address] [place] [address] Care Team Providers Care Management Expert Name Role Phone Sary Waite MD Primary Care Provider [phone] Reason for Visit * Reason Onset Date Comments pt needs labs before 04/19/25 TAVR f/u visit with [facility] 01/14/2025 Encounter Details Date Type Department Care Team (Late st Contact Info) Description 01/14/2025 Telephone [facility] Cardiology [facility] [address] [place] [address] [place] [phone] Sandro Prather MD [address] [place] [address] [address] [place] [address] pt needs labs before 04/19/25 TAVR f/u visit with [facility] Social History Tobacco Use Types Packs/Day Years [...] encounter Progress Notes * Floresita Peñaloza - 01/21/2025 11:39 AM EDT Patients TAVR has been rescheduled up to a sooner date. I have cancelled her Saturday, April 19, 2025 appointment with Armando Bentley and moved her appointment with him up to Monday, April 07, 2025 at 10:40 AM. Can you please arrange labs prior to her appointment? * Floresita Jh - 01/14/2025 3:17 PM EDT Dot is scheduled for a TAVR follow up visit with Armando Bentley on Saturday, April 19, 2025 at 11:10 AM. Can you please arrange labs prior to her appointment? Thanks. documented in this encounter Plan of Treatment Upcoming Encounters Date Type Department Care Team (Late st Contact Info) Description 02/17/2025 9:40 AM EDT Office Visit [facility] [address] [place] [phone] Armando Bentley NP [address] [place] [address] [address] [place] [address] 02/24/2025 3:00 PM EDT Ancillary Procedure [facility] [address] [place] [address] 04/02/2025 11:30 AM EDT Ancillary Procedure [facility] [address] [place] [address] 04/07/2025 10:40 AM EDT Office Visit [facility] [address] [place] [phone] Armando Bentley NP [address] [place] [address] [address] [place] [address] documented as of this encounter Visit Diagnoses Not on filedocumented in this encounter Care Teams Management Expert Relationship Specialty Start Date End Date Sary Waite MD [address] [facility] [place] [address] PCP - General 02/08/16 documented as of this encounter
--- OUTSIDE RECORDS SUMMARY | 2025-02-03 17:42 | XMS_ITS | Clinical Summary ---
Author Organization [facility] Address [address] [place] [address] Care Team Providers Care Small Kick Press Operator Name Role Phone Sary Waite MD [...] 137 mcg (0.1 %) nasal spray SMARTSI [place](s) Both Nares Twice Daily PRN 4 Active [...] [facility] [address] [phone] Wares Sorter: Mounika Goldman MD 11/27/2024 7:45 AM EST Procedure visit [facility] [address] [place] [phone] Wares Sorter: Elma Gonzalez MD Basal cell carcinoma (BCC) [...] this topic Procedures * Due to [place] [employer] law, this organization might not be sharing negative HIV tests. Procedure Name Priority Date/Time Associated Diagnosis Comments MOHS SURGERY Routine 11/27/2024 Basal cell carcinoma (BCC) of forehead from Last 3 Months Results * Due to [place] [employer] law, this organization might not be sharing [...] Result PROVATION from Last 3 Months Insurance [facility] Care Teams Small Kick Press Operator Relationship Specialty Start Date End Date Sary Waite MD [address] [place] [address] PCP - General Internal Medicine 11/18/24
--- OUTSIDE RECORDS SUMMARY | 2025-02-03 17:42 | XMS_ITS | Encounter Summary ---
Author Organization [facility] Address [address] [place] [address] Care Team Providers Care Software Architect Name Role Phone Sary Waite MD Primary Care Provider [phone] Encounter Details Date Type Department Care Team (Late st Contact Info) Description 01/29/2025 Telephone [facility] - [facility] [address] [facility] [address] [place] [id number] Natalia Freedman NP [address] [facility] [address] [place] [address] Social History Tobacco Use Types Packs/Day Years [...] as of this encounter Progress Notes * Sharmila Menjivar MA - 02/02/2025 8:52 AM EDT I did call patient and LMOM to call me to schedule first device. I will follow through. * Natalia Freedman NP - 01/29/2025 12:44 PM EDT Pls arrange first device check s/p PPM following TAVR I don't know what brand--SR to implant later today Pls contact the pt Thank you documented in this encounter Plan of Treatment Upcoming Encounters Date Type Department Care Team (Late st Contact Info) Description 02/17/2025 9:40 AM EDT Office Visit [address] [place] [address] Armando Bentley NP [address] [place] [address] [address] [place] [address] 02/24/2025 3:00 PM EDT Ancillary Procedure [facility] Cardiology [facility] [address] [place] [address] 04/02/2025 11:30 AM EDT Ancillary Procedure [facility]iology [facility] [address] [place] [address] 04/07/2025 10:40 AM EDT Office Visit [place] [address] [place] [address] Armando Bentley NP [address] [place] [address] [address] [place] [address] documented as of this encounter Visit Diagnoses Not on filedocumented in this encounter Care Teams Software Architect Relationship Specialty Start Date End Date Sary Waite MD [address] [place] [address] PCP - General 02/08/16 documented as of this encounter
== END 2025-02-03 15:51 | disposition home or self-care (01) ==
LOC: HO.ENCR 14:51
PROVIDERS: PCP Internal Medicine; Visit Provider Registered Nurse Diabetes Educator
DX: E11.65 Type 2 diabetes mellitus with hyperglycemia (principal); Z79.4 Long term (current) use of insulin

== ENCOUNTER → 2025-02-03 14:50 | Outpatient (BNVA) | payer MEDICARE, SELFPAY | PROVIDERS: PCP Internal Medicine; Visit Provider Registered Nurse Diabetes Educator | DX: E11.65 Type 2 diabetes mellitus with hyperglycemia (principal); Z79.4 Long term (current) use of insulin | CPT/HCPCS: 99211 ==

== ENCOUNTER 2025-02-08 11:53 | Outpatient (AMB) | payer MEDICARE, SELFPAY ==
[2025-02-08 12:32] VITALS: BP 146/80; PULSE 70; RESP 15; TEMP 36.8; O2SAT 96; BMI 32.8
--- NOTE | 2025-02-08 12:32 | MHC.PC.OV ---
Vital Signs 02/08/25 12:32 Height 5 ft Weight 168 lb BMI 32.8 BP 146/80 H Blood Pressure Location Lt brachial Position Sitting Respiration 15 Pulse 70 Pulse Source Pulse Oximeter Temp 98.2 F Temp Source Oral Pulse Oximetry (%) 96 Oxygen Delivery Method Room Air Intake Visit Reasons: 3m follow up Intake Note: Pt is here today for her 3mo. f/u Allergies sulfamethoxazole [From Bactrim] Allergy (Severe, Verified 02/08/25 12:36) Rash adhesive tape [ADHESIVE TAPE] Allergy (Intermediate, Verified 02/08/25 12:36) BLISTERS clonidine Allergy (Verified 02/08/25 12:36) makes pt hulusinate adhesive Adverse Reaction (Severe, Verified 02/08/25 12:36) BLISTERS gabapentin Adverse Reaction (Severe, Verified 02/08/25 12:36) hallucination hydromorphone [From Dilaudid] Adverse Reaction (Severe, Verified 02/08/25 12:36) Hallucinations morphine Adverse Reaction (Severe, Verified 02/08/25 12:36) hallucination glue Adverse Reaction (Severe, Uncoded 02/08/25 12:36) BLISTERS Medication List - Last Reconciled 02/08/25 by Sary Waite MD acetaminophen 500 mg PO BID apixaban (Eliquis) 1 tab PO Q12H atorvastatin 80 mg PO BEDTIME azelastine 2 sprays intranasal BID PRN blood sugar diagnostic (OneTouch Ultra Test strips) test blood sugar once daily blood-glucose meter (OneTouch Ultra2 Meter) As directed to test blood sugar once a day cetirizine (Zyrtec) 10 mg PO DAILY cholecalciferol (vitamin D3) 50 mcg PO DAILY clotrimazole 2% 1 appful vaginal BEDTIME PRN clotrimazole-betamethasone 1-0.05 % 1 appl topical BID 10 days Donut pillow As directed ferrous fumarate 325 mg PO Q2D flash glucose scanning reader (FreeStyle [place] 2 [place]) As directed flash glucose sensor (FreeStyle [place] 2 Sensor kit) check glucose twice a day as directed folic acid 1 mg PO DAILY 90 days hyoscyamine sulfate 0.125 mg PO BID PRN insulin lispro (Humalog Panda KwikPen (U-100)) 1 sliding scale dose subcut USEASDIRECTD isosorbide mononitrate ER 30 mg PO DAILY lancets (OneTouch Delica Lancets) test blood sugar once a day Lantus Solostar U-100 Insulin (insulin glargine) 14 units (0.14 mL) subcut QAM NS qgrnea-tmohmsuk-doftavb 10,000-32,000 -42,000 unit (Zenpep) 1 cap PO TID 30 days lisinopril 2.5 mg PO DAILY loperamide 2 mg PO TID PRN lorazepam 0.5 mg PO .qd PRN meloxicam 7.5 mg PO DAILY metformin ER 750 mg PO BID metoprolol succinate ER 100 mg (2 x 50 mg) PO BEDTIME moxifloxacin 0.5% (Vigamox) 1 drp ophthalmic (eye) TID 5 days omeprazole 40 mg PO DAILY 90 days ondansetron 4 mg PO Q8H PRN 30 days oxycodone 10 mg PO Q6-8H PRN pen needle, diabetic (BD Ultra-Fine Original Pen Needle) Use to inject insulin once a day pramipexole 0.25 mg PO DAILY sertraline (Zoloft) 150 mg (1.5 x 100 mg) PO DAILY 3 months trazodone 50 mg PO BEDTIME verapamil ER 100 mg PO BEDTIME Tobacco use date assessed: 11/05/24 Fall risk assessment: No Falls in past year Last assessed Fall Risk: 02/08/25 Dental Screening Dental Screen Date: 02/08/25 Did you have a dental visit in the last 12 months?: No Did you have a dental problem in the last 6 months where you did not have access to dental care?: No Was dental information given to patient?: No HPI 3m follow up HPI Details 79-year-old lady with history of aortic stenosis status post day where 01/30/2025 , has diabetes mellitus type 2 currently followed at [facility] endocrine clinic, with Lantus dose increased to 14 units and placed on a sliding scale of insulin , here today for follow-up on her hypertension, and mixed dyslipidemia. She has been feeli well after her surgery, has more energy , declines chest pain, lightheadedness or shortness of breath. Blood pressure slightly elevated on today's visit, but recent fasting labs showed normal electrolytes, renal function, and lipid panel. Has history of depression, currently stable and controlled on sertraline and lorazepam taken as needed for acute anxiety attacks. [facility] Medical History Hx of aortic valve stenosis Depression Diabetes mellitus with hyperglycemia, with long-term current use of insulin Swelling of knee joint, left Hx of sigmoidoscopy Metformin adverse reaction Adenocarcinoma of left lung (~2021) Aortic stenosis Atypical migraine Transient cerebral ischemia AVM (arteriovenous malformation) of colon Normocytic anemia Nonrheumatic mitral valve regurgitation Nonrheumatic aortic (valve) stenosis Obesity History of blood transfusion Barretts esophagus AAA (abdominal aortic aneurysm) (~2008) Bleeding hemorrhoids Anemia Arthritis On anticoagulant therapy (~10/2020) On beta ashleigh at home Pulmonary nodules Mixed dyslipidemia Vitamin B12 deficiency GIB (gastrointestinal bleeding) COPD (chronic obstructive pulmonary disease) Bilateral pulmonary embolism (~10/2020) Restless leg syndrome Irritable bowel syndrome with both constipation and diarrhea GERD without esophagitis CAD (coronary artery disease) Essential hypertension Surgical History S/P TAVR (transcatheter aortic valve replacement) History of lung biopsy (~2021) History of esophagogastroduodenoscopy (EGD) (~2020) History of hysterectomy History of colonoscopy (~2018) History of coronary artery bypass graft x 2 (~2017) History of total right knee replacement (TKR) (~2015) History of bilateral breast reduction surgery (~2010) S/P excision of lipoma (~2017) History of heart artery stent (~2007) Family History Father HTN (hypertension) Myocardial infarction Hyperlipidemia Abdominal aneurysm Mother HTN (hypertension) Myocardial infarction Hyperlipidemia Brother Alzheimer's disease Substance abuse Sister Rheumatoid arthritis Brother Rheumatoid arthritis Maternal Aunt Diabetes mellitus Lung cancer Maternal Uncle Diabetes mellitus Son No problems noted. Daughter No problems noted. 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 Depression Screening Interpretation: Negative Depression Screening Done: Yes Source: Developed by Drs. Alexey Arreaga, Yokasta Paulino, Pieter Oro and colleagues, with an educational jose j from [employer]. Thrive Questionnaire Date Thrive assessed: 10/29/24 I am a: Patient What is your living situation today?: I have a steady place to live Within the past 12 months, did the food you bought not last and you didn't have the money to get more?: Never true Within the past 12 months, did you worry whether your food would run out before you got money to buy more?: Never true Do you have trouble paying for medicines?: No Do you have trouble getting transportation to medical appointments?: No Do you have trouble paying your heating and electricity bill?: No Do you have trouble taking care of your child, family member or friend?: No Do you have trouble with day-to-day activities such as bathing, preparing meals, shopping, managing finances, etc.?: Yes Are you currently unemployed and looking for a job?: No Are you interested in more education?: No Please select the resources that you would like help with: None Currently or been in a relationship where the following occur: No concerns reported THRIVE Score: 0 BO-7 AMB Questionnaire BO-7 Date BO - 7 assessed: 11/05/24 Source: Developed by Drs. Alexey Arreaga, Yokasta Paulino, Pieter Oro and colleagues, with an educational jose j from [employer]. Review of Systems Const Denies fever(s), Denies frequent falls and Denies headache(s) ENT Denies dysphagia and Denies headache(s) Card Denies syncope, Denies rapid heart rate, Denies irregular heart rhythm and Denies dyspnea Resp Denies cough, Denies dyspnea and Denies wheezing GI Denies abdominal pain, Denies melena, Denies change in bowel habits, Denies dysphagia and Denies vomiting Musc Denies arthralgias, Denies joint swelling, Denies numbness and Reports stiffness Neuro Denies syncope, Denies frequent falls, Denies headache(s) and Denies numbness Psych Reports no additional complaints Endo Denies polyphagia Lele/Lymph Reports easy bruising Aller/Immun Denies wheezing Physical exam (Primary Care) Vital Signs: Last Vital Signs Temp 98.2 F 02/08/25 12:32 Pulse 70 02/08/25 12:32 Resp 15 02/08/25 12:32 BP 146/80 H 02/08/25 12:32 Pulse Ox 96 02/08/25 12:32 Oxygen Delivery Method Room Air 02/08/25 12:32 BMI result Body Mass Index 32.8 Tobacco/Smoking Status: Tobacco use Status Tobacco use date assessed 11/05/24 02/08/25 12:37 Patient Tobacco Use Status Former Tobacco user 02/08/25 12:37 Tobacco use type Cigarette 02/08/25 12:37 e-Cigarette/Vaping Use Never Used 02/08/25 12:37 Depression Screening Interpretation: Negative Thrive Assessment: Date of Thrive Assessment Date Thrive assessed 10/29/24 02/08/25 12:37 Currently or been in a relationship where the following occur: No concerns reported Const Other: Alert oriented x3, no acute cardiorespiratory distress, ambulatory with normal gait Orientation/consciousness: patient oriented x3 HENMT Mouth: Normal oral and palatal mucosa present and moist mucous membranes Neck Other: Supple, no lymphadenopathy, thyroid gland nonpalpable Resp Effort & Inspection: normal respiratory effort and able to speak in complete sentences Auscultation: clear to auscultation bilaterally Cardio Other: S1-S2 present regular rate and rhythm GI Palpation (GI): Soft to palpation, nontender, no guarding and no masses Auscultation: normal bowel sounds Neuro General: patient oriented x3, gait normal, tone normal, moves all extremities, Normal light touch and pain sensation, no focal motor deficits and CN's II-XI intact bilaterally Extrem General: Yes full ROM, Yes no calf tenderness and Yes normal gait Psych Appearance: grossly normal and well kempt Mental Status: mental status grossly normal Speech and movement: Normal speech and movement present Affect: normal affect Attitude: cooperative Results Reviewed Results Reviewed: Name: Brittany Onofre Age/Sex: 79/F : 1945 Unit#: [id number] Attend Dr: CARLOS HOLDEN MD Re12/19/24 Status: DEP REF Location: [facility] Disch: SPEC : [id number] KIKI: 12/19/24 STATUS: COMP REQ : [id number] RECD: 12/19/[address]: Sary Waite MD COMP: 12/19/24 ENTERED: 12/19/[address] [facility] [address]: CARLOS HOLDEN MD ORDERED: CBC Auto Diff Test Result Flag Reference WBC 6.6 4.8-10.8 X10*3/uL RBC 3.62 L 4.20-5.50 X10*6/uL HGB 11.2 L 12.0-16.0 g/dl HCT 33.7 L 37.0-47.0 % MCV 93.1 80.0-98.0 fL MCH 30.9 27.0-33.0 pg MCHC 33.2 31.0-35.0 g/dl RDW 12.4 11.0-16.0 % PLT 230 160-400 X10*3/uL MPV 11.1 9.4-12.3 fL Neut Pct Auto 68.5 45-73 % ImGran Pct Auto 0.3 0.0-0.4 % Lymp Pct Auto 20.1 20-40 % [place] Pct Auto 9.7 2-11 % Eos Pct Auto 1.1 0-4 % Baso Pct Auto 0.3 0-2 % NRBC Pct Auto 0.0 0.0-0.2 /100WBC ANC Neut Abs # 4.5 2.0-8.3 x10*3/uL ImGran Abs Auto 0.02 0.00-0.03 X10*3/uL Lymph Abs Auto 1.3 1.2-4.9 X10*3/uL [place] Abs Auto 0.6 0.1-1.2 X10*3/uL Eos Abs Auto 0.1 0.0-0.4 X10*3/uL Baso Abs Auto 0.0 0.0-0.2 X10*3/uL NRBC Abs Auto 0.000 0.0-0.012 X10*3/uL Laboratory Tests 12/19/24 08:25 Estimat Average Glucose 220 Hemoglobin A1c % 9.3 H Name: Brittany Onofre Age/Sex: 79/F : 1945 Unit#: [id number] Attend Dr: CARLOS HOLDEN MD Re12/19/24 Status: DEP [facility]F [facility] Disch: SPEC : [id number] KIKI: 12/19/24 STATUS: COMP REQ : [id number] RECD: 12/19/[address]: Sary Waite MD COMP: 12/19/24 ENTERED: 12/19/[address]: CARLOS HOLDEN MD ORDERED: Met Prof Fast, IRON PROF, AST, ALT, Lipid Panel, Vitamin D 25-OH Test Result Flag Reference Sodium 139 135-145 mmol/L Potassium 3.7 3.3-5.1 mmol/L CL 107 96-108 mmol/L CO2 23 22-29 mmol/L Gap 13 12-20 BUN 20 H 9-16 mg/dL Creat 0.81 0.5-1.4 mg/dL eGFR > 60 Chronic Kidney Disease: Estimated GFR < 60 mL/min/1.73m2 Severe Kidney Disease: Estimated GFR < 15 mL/min/1.73m2 FBS 268 H 60-99 mg/dL A fasting glucose of 126 mg/dl or greater on more than one occasion is considered diagnostic of diabetes. CA 9.6 8.4-10.2 mg/dL Iron 76 30-160 mcg/dL TIBC 286 228-428 mcg/dL Saturation 27 15-50 % UIBC 210 ug/dL AST (GOT) 25 5-31 U/L ALT (GPT) 18 0-31 U/L Triglyceride 121 <150 mg/dL Desirable Triglyceride: less than 150 mg/dL Borderline High Triglyceride 150-199 mg/dL High Triglyceride: 200-499 mg/dL Very High Triglyceride: greater than or equal to 5OO mg/dL Cholesterol 132 <200 mg/dL Desirable Cholesterol: less than 200 mg/dL Borderline High Cholesterol: 200-239 mg/dL High Cholesterol: greater than 239 mg/dL LDL Calculated 55 <100 mg/dL Desirable LDL: less than 100 mg/dL Near Optimal/Above Optimal LDL: 110-129 mg/dL Borderline High LDL: 130-159 mg/dL High LDL: 160-189 mg/dL Very High LDL: greater than or equal to 190 mg/dL HDL 53 >40 mg/dL Desirable HDL: greater than 40 mg/dL Note: This HDL assay may give artificially low results in patients with liver disease. Vit D 25-OH Tot 36.9 >30 ng/mL Health Based Reference Values* < 20 ng/mL Deficient 20-30 ng/mL Insufficient > 30 ng/mL Sufficient Coding Level of Care Code Est Pt Level 4 (70384) Complex EM visit Add On G2211 Diagnoses S/P TAVR (transcatheter aortic valve replacement) Z95.2 Mixed dyslipidemia E78.2 Essential hypertension I10 Hx of aortic valve stenosis Z86.79 Type 2 diabetes mellitus with hyperglycemia, with long-term current use of insulin E11.65; Z79.4 Diabetes mellitus type: type 2 Normocytic anemia D64.9 Restless leg syndrome G25.81 Moderate episode of recurrent major depressive disorder F33.1 Depression Type: major depressive disorder Major depression recurrence: recurrent Active/Remission status: currently active Major depression episode severity: moderate Assessment & Plan Assessment & Plan (1) S/P TAVR (transcatheter aortic valve replacement): Code(s): Z95.2 - Presence of prosthetic heart valve Category: Surgical Plan: Patient had labs done 4 CBC and basic metabolic panel [facility] recently will get copy of results. Has an appointment with cardiac rehab on 02/22/2025 and a repeat echocardiogram post TAVR on 04/02/2025. He has an appointment with Carlos Bentley on 04/05/2025 post TAVR and follow-up after echocardiogram (2) Mixed dyslipidemia: Code(s): E78.2 - Mixed hyperlipidemia Category: Medical Plan: Reviewed recent fasting lipid profile with patient with levels within normal limits . Continue atorvastatin 80 mg daily , in addition to adherence to low-cholesterol diet and regular exercise, at least 30 minutes 3 to 4 times a week. Advised patient to make healthy food choices, eat more fruits, vegetables, whole grains, wild caught fish and low-fat dairy. Limit amount of meat and fried or fatty food products, as well as processed foods and fast foods. (3) Essential hypertension: Code(s): I10 - Essential (primary) hypertension Category: Medical Plan: Continue with metoprolol succinate ER 100 mg at bedtime and lisinopril 2.5 mg once a day (4) Hx of aortic valve stenosis: Code(s): Z86.79 - Personal history of other diseases of the circulatory system Category: Medical Plan: Status post TAVR 01/30/2025 at [facility] done by Dr. Gamez. 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) use of insulin Plan: Currently followed by [facility] endocrine clinic, continued on current dose of metformin and Lantus was increase the 14 units daily has a follow-up appointment with them in March 2025 (6) Normocytic anemia: Code(s): D64.9 - Anemia, unspecified Category: Medical Plan: Continue ferrous fumarate 325 mg every other day (7) Restless leg syndrome: Code(s): G25.81 - Restless legs syndrome Category: Medical Plan: Continue pramipexole 0.25 mg daily and ferrous fumarate 325 mg 1 tablet every other day (8) Depression: Code(s): F32.9 - Major depressive disorder, single episode, unspecified Category: Medical Qualifiers: Depression Type: major depressive disorder Major depression recurrence: recurrent Active/Remission status: currently active Major depression episode severity: moderate Qualified Code(s): F33.1 - Major depressive disorder, recurrent, moderate Plan: Currently stable and controlled on sertraline 150 mg once daily and takes an occasional lorazepam as needed for acute anxiety attacks.
--- OUTSIDE RECORDS SUMMARY | 2025-02-08 14:14 | XMS_ITS | Clinical Summary ---
Author Organization Patient Business Ser [facility] Address [address] [place] [address] Care Team Providers Care Supervisor Steffen House Name Role Phone Sary Waite MD Primary Care Provider Allergies Active Allergy Reactions Criticality Noted Date Comments Adhesive Tape-Silicones 11/15/2020 Tape Clonidine 09/06/2021 Gabapentin 11/16/2024 Morphine 11/16/2024 Other 11/15/2020 Bactrim [Na Tfbltomu-knjfnlfnonsnqwvp-ro imethoprim] Sulfamethoxazole 11/16/2024 Trimethoprim 11/16/2024 Medications verapamil [...] 02/08/2023 COPD (chronic obstructive pu lmonary disease) ([facility] V24, [facility] V28) 01/26/2022 Mixed hyperlipidemia 01/26/2022 Obesity 01/26/2022 Type 2 diabetes mellitus wit hout complications ([facility] V24, [facility] V28) 01/26/2022 Overview (11/16/2024): w/o halfway current use of insulin Pain of right lower extremity 09/29/2021 Abdominal aortic aneurysm (A AA) without rupture ([facility] V24) 03/14/2021 Essential hypertension 03/14/2021 [...] and the TAVR coordinators at the [facility] structural heart disease program. After all the [...] Encounters Date Type Department Care Team Description 02/05/2025 4:15 PM EDT Ancillary Procedure [facility] Cardiology [facility] [address] [place] [address] Arrived 01/29/2025 Telephone [facility] [address] [place] [address] Natalia Freedman NP 01/14/20[address] [facility] [address] [place] [address] Sandro Prather MD pt needs labs before 04/19/25 TAVR f/u visit with [facility] 01/14/2025 [address] [facility] [address] [place] [address] Sandro Prather MD o Patch-[id number] (ok to book) 12/21/2024 1:00 PM EDT Consult [facility] [address] [place] [address] Sandro Prather MD Essential hypertension (Primary Dx); Nonrheumatic aortic valve stenosis 12/04/2024 [address] [facility] [address] [place] [address] Adolfo Hernandez MD pt requesting alternative to verapamil due to cost 12/04/2024 [address] [facility] [address] [place] [address] Adolfo Hernandez MD pt requesting alternative for verapamil due to cost. 12/02/2024 10:00 AM EST Ancillary Procedure [facility] [address] [place] [address] Nonrheumatic aortic valve stenosis; Fung-Garcia syncope; RIVAS (dyspnea on exertion) 11/24/2024 1:00 PM EST Office Visit [facility] [address] [place] [address] Adolfo Hernandez MD Nonrheumatic aortic valve stenosis (Primary Dx); Fung-Garcia syncope; RIVAS (dyspnea on exertion) 11/24/2024 10:00 AM EST Ancillary Procedure [facility] - [address] [place] [address] Nonrheumatic aortic valve stenosis; Fung-Garcia syncope; RIVAS (dyspnea on exertion) from Last 3 Months Surgical History Surgery Date Site/Laterality Comments OTHER SURGICAL HISTORY Bilateral PROCEDURE: HISTORY OTHER; COMMENT: breast reduction surgey COLONOSCOPY PROCEDURE: HISTORICAL COLONOSCOPY CORONARY ARTERY BYPASS GRAFT 2018 PROCEDURE: HISTORICAL CABG; COMMENT: x 2 OTHER SURGICAL HISTORY PROCEDURE: IN EGD PARTIAL/COMPL ESOPHAGOGASTRIC FUNDOPLASTY OTHER SURGICAL HISTORY PROCEDURE: HISTORY OTHER; COMMENT: Heart Artery Stent HYSTERECTOMY PROCEDURE: HISTORICAL HYSTERECTOMY TOTAL KNEE ARTHROPLASTY PROCEDURE: IN ARTHRP KNE CONDYLE&PLATU MEDIAL&LAT COMPARTMENTS LIPOMA RESECTION PROCEDURE: SKIN TISSUE EXCISION(LIPOMA) Medical History Medical History Date Comments Anemia DX:Anemia Arthritis DX:Arthritis Atypical migraine DX:Atypical mi graine AVM (arteriovenous malformation) of colon DX:AVM (arteriovenous malformation) of colon Barretts esophagus DX:Barretts e sophagus Bleeding hemorrhoids DX:Bleeding hemorrhoids COPD (chronic obstructive pu lmonary disease) ([facility], [facility] V28) DX:COPD (chronic o bstructive pulmonary disease) ([facility]) Depression DX:Depression GERD (gastroesophageal reflux disease) DX:GERD (gastroesophageal reflux disease) GIB (gastrointestinal bleeding) DX:GIB (gastrointestinal bleeding) History of blood transfusion DX: History of blood transfusion IBS (irritable bowel syndrome) D X:IBS (irritable bowel syndrome); COMMENT: w/ both constipation and diarrhea Major depression in full rem ission ([facility] V24) DX:Major depression in full remission ([facility]) Obesity DX:Obesity Restless leg syndrome DX:Restles s leg syndrome Transient cerebral ischemia DX:T ransient cerebral ischemia Type 2 diabetes mellitus wit hout complications ([facility] V24, [facility] V28) DX:Type 2 bo betes mellitus without complications ([facility]); COMMENT: w/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 Cardiology [facility] [address] [place] [address] Armando Bentley NP [address] [place] [address] [address] [place] [address] 02/24/2025 3:00 PM EDT Ancillary Procedure [facility] Cardiology [facility] [address] [place] [address] 04/02/2025 11:30 AM EDT Ancillary Procedure [facility] Cardiology [facility] [address] [place] [address] 04/07/2025 10:40 AM EDT Office Visit [facility] [address] [place] [address] Armando Bentley NP [address] [place] [address] [address] [place] [address] Health Maintenance Due Date Last Done Comments [...] on patient's age to complete this topic Medical Devices Implanted Type Area Elderly Companion Device Identifier Shelf Expiration Date Model / Serial / Lot Medt-Card [place] Xt Porfirio [id number] Implanted: (Quantity not on file) Cardiac Pacemaker [employer] - CARDIAC RHYTH-CRDM ELOISA XT PORFIRIO [id number] / [id number] / Procedures Procedure Name Priority Date/Time Associated Diagnosis Comments CARDIAC DEVICE CHECK- REMOTE- MURJ Routine 02/05/2025 4:14 PM EDT TRANSTHORACIC ECHOCARDIOGRAM (TTE) COMPLETE Routine 12/02/2024 10:48 AM EST Nonrheumatic aortic valve stenosis Fung-Garcia syncope RIVAS (dyspnea on exertion) CARDIAC HOLTER MONITOR (REPORT GENERATED IN HOUSE) Routine 11/24/2024 3:57 PM EST Nonrheumatic aortic valve stenosis Fung-Garcia syncope RIVAS (dyspnea on exertion) from Last 3 Months Results * Cardiac device check - Remote- MURJ (02/05/2025 4:14 PM EDT) Date Time Interrogation Session [id number] CV DEVICE CHECK Type Interrogation Session Remote CV DEVICE CHECK Implantable Pulse Generator Elderly Companion MDT CV DEVICE CHECK Implantable Pulse Generator Type IPG CV DEVICE CHECK Implantable Pulse Generator Model Eloisa XT PORFIRIO [id number] CV DEVICE CHECK Implantable Pulse Generator Serial Number [id number] CV DEVICE CHECK Implantable Pulse Generator Implant Date 20250129 CV DEVICE CHECK Battery Voltage 3.180 CV D EVICE CHECK Battery TECHNICAL SERVICES COORDINATOR Trigger 2.625 CV DEVICE CHECK Battery Status Middle of Service CV DEVICE CHECK Luis Statistic RA Percent Paced 5.48 CV DEVICE CHECK Luis Statistic RV Percent Paced 96.39 CV DEVICE CHECK Atrial Tachy Statistic AT/AF [place] Percent 0.00 CV DEVICE CHECK Lead Channel Sensing Intrinsic Amplitude 3.000 CV DEVICE CHECK Lead Channel Setting Sensing Sensitivity 0.30 CV DEVICE CHECK Lead Channel Impedance Value 513 CV DEVICE CHECK Lead Channel Setting Pacing Amplitude 3.500 CV DEVICE CHECK Lead Channel Setting Pacing Pulse Width 0.4 CV DEVICE CHECK Lead Channel Sensing Intrinsic Amplitude 19.625 CV DEVICE CHECK Lead Channel Setting Sensing Sensitivity 0.90 CV DEVICE CHECK Lead Channel Impedance Value 456 CV DEVICE CHECK Lead Channel Pacing Threshold Amplitude 0.375 CV DEVICE CHECK Lead Channel Pacing Threshold Pulse Width 0.4 CV DEVICE CHECK Lead Channel RV Pacing Threshold Date 2025-01-30 CV DEVICE CHECK Lead Channel Setting Pacing Amplitude 3.500 CV DEVICE CHECK Lead Channel Setting Pacing Pulse Width 0.4 CV DEVICE CHECK Luis Setting Mode (NBG Code) DDD CV DEVICE CHECK Luis Setting Lower Rate Limit 60 CV DEVICE CHECK Luis Setting AT Mode Switch Rate 171 CV DEVICE CHECK Luis Setting Maximum Tracking Rate 130 CV DEVICE CHECK Luis Setting Maximum Sensor Rate 130 CV DEVICE CHECK Luis Setting PAV Delay 180 CV DEVICE CHECK Luis Setting RAJ Delay 150 CV DEVICE CHECK Zone Setting Type Category AT/AF CV DEVICE CHECK Rate 171 CV DEVICE CHECK Therapies Some Rx Off CV DEVIC E CHECK Zone Setting Status Monitor CV DEVICE CHECK Zone ID 2 CV DEVICE CHECK Zone Setting Type Category VT CV DEVICE CHECK Rate 150 CV DEVICE CHECK Zone Setting Status ENABLED CV DEVICE CHECK Zone ID 6 CV DEVICE CHECK Anatomical Region Laterality Modality Device Interroga tion 01/30/2025 3:57 PM EDT Impressions 02/05/2025 4:02 PM EDT Normal Remote: No Events * Normal Device Function * Alerts or events: None * Battery: OK, * Sensing, impedance and thresholds reviewed * Programmed parameters reviewed * Presenting rhythm reviewed * Heart Rate Histograms reviewed * No significant changes noted Narrative Procedure Note Devyn Tenorio MD - 02/05/2025 IMPRESSION: Normal Remote: No Events * Normal Device Function * Alerts or events: None * Battery: OK, * Sensing, impedance and thresholds reviewed * Programmed parameters reviewed * Presenting rhythm reviewed * Heart Rate Histograms reviewed * No significant changes noted Devyn Tenorio MD CV IMPLANTABLE CARDIAC DEV ICE PROCEDURES Final Result * (ABNORMAL) TRANSTHORACIC ECHOCARDIOGRAM (TTE) COMPLETE (12/02/2024 10:48 AM EST) Left Atrium Minor [place] 5.8 cm CV PACS Left Atrium Major [place] 5.4 cm CV PACS LA Area Sys [...] Diagnost ic Narrative 11/29/2024 4:07 PM EST [facility] DI[facility]NOSTIC [facility]ING DEPARTMENT [address] [place] [address] TEL: FAX: Type of Test: 48 Hour Holter Monitor Date of Test: 11/24/2024 Ordering Provider: RIVAS (dyspnea on exertion), Syncope ?? Reason for Test: ?? PVCA Com Writer Findings: ?? 1: Normal Sinus Rhythm with [...] Documents on File Type Date Recorded Patient Management Accountant Expl anation Health Care Decision (hx) 04/10/2022 AD KIDD DIRECTIVE Health Care Decision (hx) 04/10/2022 AD KIDD DIRECTIVE Health Care Decision (hx) 04/10/2022 AD KIDD DIRECTIVE Health Care Decision (hx) 04/10/2022 AD KIDD DIRECTIVE Health Care Decision (hx) 04/10/2022 AD KIDD DIRECTIVE Health Care Decision (hx) 04/10/2022 AD KIDD DIRECTIVE Care Teams Supervisor Steffen House Relationship Specialty Start Date End Date Sary Waite MD [address] [place] [address] PCP - General 02/08/16
--- OUTSIDE RECORDS SUMMARY | 2025-02-08 14:14 | XMS_ITS | Encounter Summary ---
Author Organization [facility] Address [address] [place] [address] Care Team Providers Care Machine Tech Name Role Phone Sary Waite MD Primary Care Provider +1- [phone] Reason for Visit * Reason Onset Date Comments pt needs labs before 04/19/25 TAVR f/u visit with [facility] 01/14/2025 Encounter Details Date Type Department Care Team (Late st Contact Info) Description 01/14/2025 Telephone [facility] Cardiology [facility] [address] [place] [address] [place] [address] Sandro Prather MD [address] [place] [address] [address] [place] [address] pt needs labs before 04/19/25 TAVR f/u visit with [facility] Social History Tobacco Use Types Packs/Day Years [...] as of this encounter Progress Notes * Priscila Rivera MA - 02/04/2025 8:44 AM EDT Labs and letter printed and mailed * Floresita Peñaloza - 01/21/2025 11:39 AM EDT Patients TAVR has been rescheduled up to a sooner date. I have cancelled her Saturday, April 19, 2025 appointment with Armando Bentley and moved her appointment with him up to Monday, April 07, 2025 at 10:40 AM. Can you please arrange labs prior to her appointment? * Floresita Peñaloza - 01/14/2025 3:17 PM EDT Dot is scheduled for a TAVR follow up visit with Armando Bentley on Saturday, April 19, 2025 at 11:10 AM. Can you please arrange labs prior to her appointment? Thanks. documented in this encounter Plan of Treatment Upcoming Encounters Date Type Department Care Team (Late st Contact Info) Description 02/17/2025 9:40 AM EDT Office Visit [facility] [address] [place] [address] Armando Bentley NP [address] [place] [address] [address] [place] [address] 02/24/2025 3:00 PM EDT Ancillary Procedure [facility] Cardiology [facility] [address] [place] [address] 04/02/2025 11:30 AM EDT Ancillary Procedure [facility] - [address] [place] [address] 04/07/2025 10:40 AM EDT Office Visit [facility] [address] [place] [address] Armando Bentley NP [address] [place] [address] [place] [address] documented as of this encounter Visit Diagnoses Not on filedocumented in this encounter Care Teams Machine Tech Relationship Specialty Start Date End Date Sary Waite MD [address] [place] [address] PCP - General 02/08/16 documented as of this encounter
--- OUTSIDE RECORDS SUMMARY | 2025-02-08 14:14 | XMS_ITS | Encounter Summary ---
Author Organization [facility] Address [address] [place] [address] Care Team Providers Care Tool And Die Maker Name Role Phone Sary Waite MD Primary Care Provider +1- [phone] Encounter Details Date Type Department Care Team (Late Contact Info) Description 02/05/2025 4:15 PM EDT Ancillary Procedure [facility] [address] [facility] [address] [place] [address] Arrived Social History Tobacco Use Types Packs/Day Years [...] Encounters Date Type Department Care Team (Late Contact Info) Description 02/17/2025 9:40 AM EDT Office Visit [facility] Cardiology [facility] [address] [place] [address] Armando Bentley NP [address] [place] [address] [address] [place] [address] 02/24/2025 3:00 PM EDT Ancillary Procedure [facility] [address] [place] [address] 04/02/2025 11:30 AM EDT Ancillary Procedure [facility] - [address] [place] [address] 04/07/2025 10:40 AM EDT Office Visit [facility] Cardiology [facility] [address] [place] [address] Armando Bentley NP [address] [facility] [address] [place] [address] documented as of this encounter Procedures Procedure Name Priority Date/Time Associated Diagnosis Comments CARDIAC DEVICE CHECK- REMOTE- MURJ Routine 02/05/2025 4:14 PM EDT documented in this encounter Results * Cardiac device check - Remote- MURJ (02/05/2025 4:14 PM EDT) Date Time Interrogation Session [id number] CV DEVICE CHECK Type Interrogation Session Remote CV DEVICE CHECK Implantable Pulse Generator Breakfast And Room Attendant MDT CV DEVICE CHECK Implantable Pulse Generator Type IPG CV DEVICE CHECK Implantable Pulse Generator Model [place] XT DR MRI [id number] CV DEVICE CHECK Implantable Pulse Generator Serial Number [id number] CV DEVICE CHECK Implantable Pulse Generator Implant Date 20250129 CV DEVICE CHECK Battery Voltage 3.180 CV D EVICE CHECK Battery LEAD DEVELOPER Trigger 2.625 CV DEVICE CHECK Battery Status Middle of Service CV DEVICE CHECK Luis Statistic RA Percent Paced 5.48 CV DEVICE CHECK Luis Statistic RV Percent Paced 96.39 CV DEVICE CHECK Atrial Tachy Statistic AT/AF [place] Percent 0.00 CV DEVICE CHECK Lead Channel [...] IMPLANTABLE CARDIAC DEV ICE PROCEDURES Final Result documented in this encounter Visit Diagnoses Not on filedocumented in this encounter Care Teams Tool And Die Maker Relationship Specialty Start Date End Date Sary Waite MD [address] [place] [address] PCP - General 02/08/16 documented as of this encounter
--- OUTSIDE RECORDS SUMMARY | 2025-02-08 14:14 | XMS_ITS | Clinical Summary ---
Author Organization [facility] Address [address] [address] Care Team Providers Care Tailor Men'S Ready To Wear Name Role Phone Elayne Waite MD Primary Care Provider +1- [phone] Allergies Active Allergy Reactions Criticality Noted Date [...] Health Medicare [facility] Medicare Care Teams Tailor Men'S Ready To Wear Relationship Specialty Start Date End Date Elayne Waite MD [address] [place] [address] PCP - General Internal Medicine 02/26/22
--- OUTSIDE RECORDS SUMMARY | 2025-02-08 14:14 | XMS_ITS | Encounter Summary ---
Author Organization [facility] Address [address] [place] [address] Care Team Providers Care Business Services Manager Name Role Phone Sary Waite MD Primary Care Provider +1- [phone] Encounter Details Date Type Department Care Team (Late st Contact Info) Description 01/29/2025 Telephone [facility] [address] [facility] [address] [place] [address] Natalia Freedman NP [address] [facility] [address] [place] [address] Social History Tobacco Use Types Packs/Day Years [...] Description 02/17/2025 9:40 AM EDT Office Visit [address] [place] [address] Armando Bentley NP [address] [place] [address] [address] [place] [address] 02/24/2025 3:00 PM EDT Ancillary Procedure [facility] Cardiology [facility] - [address] [place] [address] 04/02/2025 11:30 AM EDT Ancillary Procedure [facility] Cardiology [facility] - [address] [place] [address] 04/07/2025 10:40 AM EDT Office Visit [place] [address] [place] [address] Armando Bentley NP [address] [place] [address] [address] [place] [address] documented as of this encounter Visit Diagnoses Not on filedocumented in this encounter Care Teams Business Services Manager Relationship Specialty Start Date End Date Sary Waite MD [address] [place] [address] PCP - General 02/08/16 documented as of this encounter
--- OUTSIDE RECORDS SUMMARY | 2025-02-08 14:14 | XMS_ITS | Continuity of Care Document ---
Author Organization [facility] Sean alexa Address [address] [place] [address] [place] [address] Care Team Providers Care Inclinometer Tester Name Role Phone Ravindra COHN, Sary Valdez Primary Care Physician En[place] [facility] Date(s): 01/06/25 - 02/05/25 [facility] [address] [place] [address] [address] [place], [place] [address] Attending Physician: Jennifer Valente Admitting Physician: AdmJennifer velasco Referring Physician: Admtr, Ar8 Encounter Type: Triage Allergies, Adverse Reactions, Alerts [...] Quantity: 30.0 Unit: tablet Repeat number: 1 loperamide 2 mg oral [...] Confirmed Active Restless leg syndrome Confirmed Active Social History Social History Type Response Smoking Status Former smoker entered on: 06/24/18 Sex Sex Representation Female (finding) Patient Care team information Care Team Personnel Name: Edson NOLAND, Ngoc Position: S RN Member Role: Primary Care Nurse Name: Ravindra COHN , Sary Valdez Position: Reference Physician Member Role: PCP Address: [address] [place] [address] Telecom: Name: Andi Richardson RN Position: [facility] RN Member Role: Primary Care Nurse Name: Wilfrid Jenkins RN Position: [facility] Outreach Member Role: Primary Care Nurse Name: Gina Hair RN Position: [facility] ED RN W/OE and Tasks Member Role: Primary Care Nurse Name: Anna Gutiérrez RN Position: [facility] SN RN Member Role: Primary Care Nurse Name: Catalina Montilla RN Position: [facility] RN Member Role: Primary Care Nurse Name: Lyle Wei RN Position: [facility] RN Member Role: Primary Care Nurse Name: Opal Blanco RN Position: [facility] RN Member Role: Primary Care Nurse Name: Katt Wagner RN Position: [facility] AMB Nurse Member Role: Primary Care Nurse Name: Elroy Smith RN Position: [facility] RN Member Role: Primary Care Nurse Name: Ileana Holt RN Position: [facility] RN Member Role: Primary Care Nurse Name: Sarai Hazel RN Position: [facility] RN Member Role: Primary Care Nurse Care Team Related Persons Name: MANPREET DE JESUS Name: JUAN RAMON SHOOK Insurance Providers Guarantor name: MYNOR WONGLISSY Health Plan Information #: 1 Payer: [employer] Member Number: NA Policy Number: NA Group Number: NA
--- OUTSIDE RECORDS SUMMARY | 2025-02-08 14:14 | XMS_ITS | Clinical Summary ---
Author Organization [facility] Address [address] [place] [address] Care Team Providers Care Stereo Operator Name Role Phone Sary Waite MD [...] 137 mcg (0.1 %) nasal spray SMARTSI [place](s) Both Nares Twice Daily PRN 4 Active [...] Type Department Care Team Description 12/01/2024 Telephone [facility] [address] [address] Class C Truck Driver: Mounika Goldman MD 11/27/2024 7:45 AM EST Procedure visit [facility] 4th [address] [place] [phone] Class C Truck Driver: Elma Gonzalez MD Basal cell carcinoma (BCC) [...] this topic Procedures * Due to [place] [employer] law, this organization might not be sharing negative HIV tests. Procedure Name Priority Date/Time Associated Diagnosis Comments MOHS SURGERY Routine 11/27/2024 Basal cell carcinoma (BCC) of forehead from Last 3 Months Results * Due to [place] [employer] law, this organization might not be sharing [...] Result PROVATION from Last 3 Months Insurance [facility] Care Teams Stereo Operator Relationship Specialty Start Date End Date Sary Waite MD [address] [place] [address] PCP - General Internal Medicine 11/18/24
--- OUTSIDE RECORDS SUMMARY | 2025-02-08 14:14 | XMS_ITS | Referral Summary ---
Author Organization [facility] Address [address] [place] [address] Care Team Providers Care Soil Biology Teacher Name Role Phone Sary Waite MD Primary Care Provider Encounters Date Type Department Care Team Description 12/01/2024 Telephone [facility] [address] [phone] Treating Engineer: Mounika Goldman MD 11/27/2024 7:45 AM EST Procedure visit [facility] [address] [place] [phone] Treating Engineer: Elma Gonzalez MD Basal cell carcinoma (BCC) [...] 137 mcg (0.1 %) nasal spray SMARTSI [place](s) Both Nares Twice Daily PRN 4 Active [...] Not on file Procedures * Due to [place] [employer] law, this organization might not be sharing negative HIV tests. Procedure Name Priority Date/Time Associated Diagnosis Comments MOHS SURGERY Routine 11/27/2024 Basal cell carcinoma (BCC) of forehead from Last 3 Months Results * Due to [place] [employer] law, this organization might not be sharing [...] Before the Dentist?: No Cautery set up:: [employer] [facility] Grounding pad site:: Left Arm Surgical [...] Last 3 Months Insurance [facility] Care Teams Soil Biology Teacher Relationship Specialty Start Date End Date Sary Waite MD [address] [place] [address] PCP - General Internal Medicine 11/18/24
== END 2025-02-08 13:11 | disposition home or self-care (01) ==
LOC: HO.HMCC 11:54
PROVIDERS: PCP Internal Medicine; Visit Provider Internal Medicine
DX: E11.65 Type 2 diabetes mellitus with hyperglycemia (principal); Z79.4 Long term (current) use of insulin; F33.1 Major depressive disorder, recurrent, moderate; Z95.2 Presence of prosthetic heart valve; E78.2 Mixed hyperlipidemia; I10 Essential (primary) hypertension; Z86.79 Personal history of other diseases of the circulatory system; D64.9 Anemia, unspecified; G25.81 Restless legs syndrome

== ENCOUNTER → 2025-02-08 11:53 | Outpatient (BNVA) | payer MEDICARE, SELFPAY | PROVIDERS: PCP Internal Medicine; Visit Provider Internal Medicine | DX: E78.2 Mixed hyperlipidemia (principal); I10 Essential (primary) hypertension; E11.65 Type 2 diabetes mellitus with hyperglycemia; D64.9 Anemia, unspecified; G25.81 Restless legs syndrome; F33.1 Major depressive disorder, recurrent, moderate; Z79.4 Long term (current) use of insulin; Z79.899 Other long term (current) drug therapy; Z86.79 Personal history of other diseases of the circulatory system; Z95.2 Presence of prosthetic heart valve | CPT/HCPCS: 99212 ==

== ENCOUNTER 2025-03-12 21:35 | Emergency (ER) | payer MEDICARE, SELFPAY ==
--- NOTE | ~2025-03-12 | XR_ITS ---
CLINICAL HISTORY: swelling 3 view left foot Comparison: None Findings: Bones intact. No dislocations. No significant loss of joint space, osteophytes, or erosions. No ankle effusion. No radiopaque foreign body. IMPRESSION: 1. No acute findings. This document has been electronically signed by: Harry Vanegas MD on 03/12/2025 23:37:01
--- NOTE | ~2025-03-12 | XR_ITS ---
CLINICAL HISTORY: swelling 3 view left ankle Comparison: None Findings: Bones intact. No dislocations. No significant loss of joint space, osteophytes, or erosions. No ankle effusion. No radiopaque foreign body. IMPRESSION: 1. No acute findings. This document has been electronically signed by: Harry Vanegas MD on 03/12/2025 23:36:52
--- NOTE | ~2025-03-12 | US_ITS ---
CLINICAL HISTORY: swelling Venous duplex ultrasound left lower extremity Comparison: None Findings: The visualized deep veins are fully compressible with normal Doppler color flow and spectral tracings. No popliteal cyst. IMPRESSION: 1. Negative for left lower extremity deep vein thrombosis. This document has been electronically signed by: Harry Vanegas MD on 03/12/2025 23:37:18
[2025-03-12 21:44] VITALS: BP 128/62; PULSE 71; RESP 16; TEMP 36.3; O2SAT 97; BMI 34.2
--- NOTE | 2025-03-12 21:50 | ECG_ITS ---
Test Reason : LEG SWOLLEN Blood Pressure : */* mmHG Vent. Rate : 70 BPM Atrial Rate : 70 BPM P-R Int : 168 ms QRS Dur : 150 ms QT Int : 480 ms P-R-T Axes : 44 -34 60 degrees QTcB Int : 518 ms Atrial-sensed ventricular-paced rhythm Abnormal ECG When compared with ECG of 04-Jul-2024 20:01, Electronic ventricular pacemaker has replaced Sinus rhythm Referred By: Generic ED Physician Electronically Signed By: JADON PATEL MD
[2025-03-12 22:12] LABS: MANUAL DIFF FLAG NO
[2025-03-12 22:13] LABS: Basophils Percent Auto 0.3 % (0-2); Eosinophils Absolute Auto 0.2 X10*3/uL (0.0-0.4); Eosinophils Percent Auto 2.6 % (0-4); Hematocrit 29.7 % (37.0-47.0); Hemoglobin 10.1 g/dl (12.0-16.0); Imm Gran Abs Auto 0.01 X10*3/uL (0.00-0.03); Imm Gran Pct Auto 0.1 % (0.0-0.4); Lymphocytes Absolute Auto 1.8 X10*3/uL (1.2-4.9); Lymphocytes Percent Auto 25.2 % (20-40); Mean Corpuscular Hemoglobin 31.6 pg (27.0-33.0); Mean Corpuscular Volume 92.8 fL (80.0-98.0); Mean Platelet Volume 9.9 fL (9.4-12.3); Monocytes Absolute Auto 0.6 X10*3/uL (0.1-1.2); Monocytes Percent Auto 9.1 % (2-11); Neutrophils Absolute Auto 4.4 x10*3/uL (2.0-8.3); Neutrophils Percent Auto 62.7 % (45-73); Platelet Count 227 X10*3/uL (160-400); Red Cell Distribution Width 12.9 % (11.0-16.0)
[2025-03-12 22:21] VITALS: BP 161/56; PULSE 68; RESP 16; TEMP 36.8; O2SAT 97
[2025-03-12 22:28] LABS: Anion Gap 15 (12-20); Blood Urea Nitrogen 20 mg/dL (9-16); Calcium 9.9 mg/dL (8.4-10.2); Carbon Dioxide 27 mmol/L (22-29); Chloride 106 mmol/L (96-108); Creatinine Clr Calc Pharmacy 54.1; Estimated Glomerular Filt Rate > 60; Glucose Random 107 mg/dL (60-115); Potassium 3.9 mmol/L (3.3-5.1); Sodium 144 mmol/L (135-145)
--- NOTE | 2025-03-12 22:28 | ED.EXTPRO ---
HPI - Extremity Problem General Chief complaint: Extremity Problem Stated complaint: left foot swollen (heart condition) Time Seen by Provider: 03/12/25 22:12 Source: patient Mode of arrival: ambulatory Limitations: no limitations History of Present Illness ED Provider: HPI Narrative: 79-year-old woman with pacemaker placement, on antibiotics as that was postprocedural infection, history of TAVR, presenting with isolated swelling over the lateral part of her foot and ankle on the left without pain, fevers, chills, erythema, injury. Denies shortness of breath, of the shaft pain. Related Data Home Medications ?Medication ?Instructions ?Recorded ?Confirmed cholecalciferol (vitamin D3) 50 50 mcg PO DAILY 10/26/20 09/04/24 mcg (2,000 unit) capsule verapamil 100 mg capsule 24hr 100 mg PO BEDTIME 10/26/20 09/04/[address],ext.release acetaminophen 500 mg tablet 500 mg PO BID 11/07/20 09/04/24 isosorbide mononitrate 30 mg 30 mg PO DAILY 10/02/21 09/04/24 tablet,extended release 24 hr apixaban 5 mg tablet (Eliquis) 1 tab PO Q12H 02/19/22 09/04/24 ferrous fumarate 325 mg (106 mg 325 mg PO Q2D 03/16/22 09/04/24 iron) tablet loperamide 2 mg capsule 2 mg PO TID PRN yes 03/30/24 09/04/24 Previous Rx's ?Medication ?Instructions ?Recorded clotrimazole 2 % vaginal cream 1 appful vaginal BEDTIME PRN 10/31/21 VAGINAL ITCH #21 grams Donut pillow #1 ea 08/07/22 cetirizine 10 mg capsule (Zyrtec) 10 mg PO DAILY #30 caps 08/22/22 flash glucose scanning reader #1 ea 11/11/22 (FreeStyle [place] 2 [place]) clotrimazole-betamethasone 1 1 appl topical BID 10 days #45 01/17/23 %-0.05 % topical cream grams ondansetron 4 mg disintegrating 4 mg PO Q8H PRN nausea and 11/25/23 tablet vomiting 30 days #30 tabs azelastine 137 mcg (0.1 %) nasal 2 spray intranasal BID PRN 03/15/24 spray postnasal drip #90 mL atorvastatin 80 mg tablet 80 mg PO BEDTIME #100 tabs 06/22/24 omeprazole 40 mg capsule,delayed 40 mg PO DAILY 90 days #90 caps 06/22/24 release meloxicam 7.5 mg tablet 7.5 mg PO DAILY #7 tabs 07/05/24 lorazepam 0.5 mg tablet 0.5 mg PO .qd PRN anxiety attack 08/13/24 #14 tabs metoprolol succinate 50 mg 100 mg (2 x 50 mg) PO BEDTIME #180 10/30/24 tablet,extended release 24 hr tabs moxifloxacin 0.5 % eye drops 1 drp ophthalmic (eye) TID 5 days 11/05/24 (Vigamox) #3 mL sertraline 100 mg tablet (Zoloft) 150 mg (1.5 x 100 mg) PO DAILY 3 11/18/24 months #135 tabs pen needle, diabetic 29 gauge x #100 ea 12/11/24 1/2 (BD Ultra-Fine Original Pen Needle) ocasre-liqbovwo-wcyipbp 1 cap PO TID 30 days #90 caps 12/13/24 10,000-32,000-42,000 unit capsule,delayed rel (Zenpep) folic acid 1 mg tablet 1 mg PO DAILY 90 days #90 tabs 12/14/24 Lantus Solostar U-100 Insulin 100 14 unit (0.14 mL) subcut QAM #30 mL 01/20/25 unit/mL (3 mL) subcutaneous pen (insulin glargine) insulin lispro 100 unit/mL 1 sliding scale dose subcut 01/20/25 subcutaneous half-unit pen USEASDIRECTD #15 mL (Humalog Panda KwikPen (U-100)) hyoscyamine sulfate 0.125 mg tablet 0.125 mg PO BID PRN for 01/26/25 indigestion #60 tabs metformin 750 mg tablet,extended 750 mg PO BID #60 tabs 01/26/25 release 24 hr flash glucose sensor (FreeStyle #6 ea 02/10/25 [place] 2 Sensor kit) doxycycline monohydrate 100 mg 100 mg PO BID #20 tabs 02/16/25 tablet FreeStyle [place] 3 Plus Sensor #6 ea 02/17/25 (blood-glucose sensor) FreeStyle [place] 3 [place] #1 ea 02/17/25 (blood-glucose,flagman,cont) pramipexole 0.25 mg tablet 0.25 mg PO DAILY #30 tabs 02/22/25 trazodone 50 mg tablet 50 mg PO BEDTIME #90 tabs 02/22/25 OneTouch Delica Plus Lancet 33 #300 ea 02/26/25 gauge (lancets) OneTouch Ultra Test (blood sugar #300 ea 02/26/25 diagnostic) OneTouch Ultra2 Meter #1 ea 02/26/25 (blood-glucose meter) pen needle, diabetic 32 gauge x #100 ea 02/26/25 oxycodone 10 mg tablet 10 mg PO Q6-8H PRN Severe Pain 03/09/25 (Scale Score 7-10) #90 tabs lisinopril 2.5 mg tablet 2.5 mg PO DAILY #90 tabs 03/10/25 Allergies Allergy/AdvReac Type Severity Reaction Status Date / Time sulfamethoxazole Allergy Severe Rash Verified 03/12/25 21:49 [From Bactrim] adhesive tape [ADHESIVE TAPE] Allergy Intermediate BLISTERS Verified 03/12/25 21:49 clonidine Allergy makes pt Verified 03/12/25 21:49 hulusinate adhesive AdvReac Severe BLISTERS Verified 03/12/25 21:49 gabapentin AdvReac Severe hallucinati Verified 03/12/25 21:49 on hydromorphone [From Dilaudid] AdvReac Severe Hallucinati Verified 03/12/25 21:49 ons morphine AdvReac Severe hallucinati Verified 03/12/25 21:49 on glue AdvReac Severe BLISTERS Uncoded 02/08/25 12:36 Review of Systems Constitutional: Constitutional: Reports as per HPI [facility] Past Medical History Medical History Hx of aortic valve stenosis Depression Diabetes mellitus with hyperglycemia, with long-term current use of insulin Swelling of knee joint, left Hx of sigmoidoscopy Metformin adverse reaction Adenocarcinoma of left lung (~2021) Aortic stenosis Atypical migraine Transient cerebral ischemia AVM (arteriovenous malformation) of colon Normocytic anemia Nonrheumatic mitral valve regurgitation Nonrheumatic aortic (valve) stenosis Obesity History of blood transfusion Barretts esophagus AAA (abdominal aortic aneurysm) (~2008) Bleeding hemorrhoids Anemia Arthritis On anticoagulant therapy (~10/2020) On beta [place] at home Pulmonary nodules Mixed dyslipidemia Vitamin B12 deficiency GIB (gastrointestinal bleeding) COPD (chronic obstructive pulmonary disease) Bilateral pulmonary embolism (~10/2020) Restless leg syndrome Irritable bowel syndrome with both constipation and diarrhea GERD without esophagitis CAD (coronary artery disease) Essential hypertension Surgical History S/P TAVR (transcatheter aortic valve replacement) History of lung biopsy (~2021) History of esophagogastroduodenoscopy (EGD) (~2020) History of hysterectomy History of colonoscopy (~2018) History of coronary artery bypass graft x 2 (~2017) History of total right knee replacement (TKR) (~2015) History of bilateral breast reduction surgery (~2010) S/P excision of lipoma (~2017) History of heart artery stent (~2007) Family History Family History Father HTN (hypertension) Myocardial infarction Hyperlipidemia Abdominal aneurysm Mother HTN (hypertension) Myocardial infarction Hyperlipidemia Brother Alzheimer's disease Substance abuse Sister Rheumatoid arthritis Brother Rheumatoid arthritis Maternal Aunt Diabetes mellitus Lung cancer Maternal Uncle Diabetes mellitus Son No problems noted. Daughter No problems noted. Social History Social History Household Members: Spouse Housing: House Do you presently have visiting nurse or other home services: No Alcohol intake: current Alcohol intake frequency: holidays/special occasions only Patient Tobacco Use Status: Former Tobacco user Tobacco use type: Cigarette Cigarette Packs Per Day: 2 Years Smoked: 30 e-Cigarette/Vaping Use: Never Used Second Hand Smoke Exposure: No Substance Use Type: Marijuana Advance Directives: Yes Advance Directives on File: Yes Advance Directives Date on File: 04/27/22 Do you have a plan to hurt others: No Plan service: No Current occupational status: retired 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 Gen: Overall well-appearing patient ? Neck: Supple, no LAD ? CV: regular pulse, insertion site of the pacemaker is clean dry, the scar still fresh but well healing ? Resp: No wheezing rales rhonchi no stridor moving air well ? Abd: Bowel sounds are present, no tenderness no rebound no rigidity ? MSK: FROM At the left ankle, dorsalis pedis and posterior tibialis pulse intact, she has 2+ pitting edema along the dorsum of the foot the lateral part of the ankle without tenderness without erythema ? Skin: Warm, dry, intact, ? Neuro: Alert and oriented x3, moving upper and lower extremities symmetrically, no obvious facial asymmetry noted Medical Decision Making Medical Decision Making [facility] Narrative: very isolated swelling of the left foot, we will obtain x-ray to evaluate for any occult fracture, she is already on Eliquis, low suspicion for DVT but we will check ultrasound, does not appear to be infected, and does not appear that this is due to a septic with inflammatory joint, compartments are soft, distal pulses intact, and there is no swelling proximally over the calf or knee Differential Diagnosis Differential Diagnoses: The differential diagnosis associated with the presentation includes septic ankle, inflammatory condition, tendinitis, renal failure, DVT, fracture, CHF Admission/Observation Consideration of admission/observation: Escalation of care including admission/observation considered Lab Data [facility] Lab Attestation statement: I reviewed the patient's lab results. 03/12/25 21:57 03/12/25 21:57 Labs: Lab Results 03/12/25 Range/Units 21:57 WBC 7.0 (4.8-10.8) X10*3/uL RBC 3.20 L (4.20-5.50) X10*6/uL Hgb 10.1 L (12.0-16.0) g/dl Hct 29.7 L (37.0-47.0) % MCV 92.8 (80.0-98.0) fL MCH 31.6 (27.0-33.0) pg MCHC 34.0 (31.0-35.0) g/dl RDW 12.9 (11.0-16.0) % Plt Count 227 (160-400) X10*3/uL MPV 9.9 (9.4-12.3) fL Immature Gran % (Auto) 0.1 (0.0-0.4) % Neut % (Auto) 62.7 (45-73) % Lymph % (Auto) 25.2 (20-40) % Bureau % (Auto) 9.1 (2-11) % Eos % (Auto) 2.6 (0-4) % Baso % (Auto) 0.3 (0-2) % Lymph # (Auto) 1.8 (1.2-4.9) X10*3/uL Bureau # (Auto) 0.6 (0.1-1.2) X10*3/uL Eos # (Auto) 0.2 (0.0-0.4) X10*3/uL Baso # (Auto) 0.0 (0.0-0.2) X10*3/uL Abs Immat Gran (auto) 0.01 (0.00-0.03) X10*3/uL Absolute Neuts (auto) 4.4 (2.0-8.3) x10*3/uL Absolute Nucleated RBC 0.000 (0.0-0.012) X10*3/uL Nucleated RBC % (auto) 0.0 (0.0-0.2) /100WBC Sodium 144 (135-145) mmol/L Potassium 3.9 (3.3-5.1) mmol/L Chloride 106 (96-108) mmol/L Carbon Dioxide 27 (22-29) mmol/L Anion Gap 15 (12-20) BUN 20 H (9-16) mg/dL Creatinine 0.81 (0.5-1.4) mg/dL Estim Creat Clear Calc 54.1 Estimated GFR > 60 Random Glucose 107 (60-115) mg/dL Calcium 9.9 (8.4-10.2) mg/dL Troponin I High Sens < 2.7 (<3.5-17.0) ng/L B-Natriuretic Peptide 104 H (<100) pg/mL Independent Interpretation I performed an independent interpretation of an: Plain X-Ray ( foot and ankle x-rays without any underlying fractures) Radiology Impression Radiologist Impression: ultrasound of the leg negative for DVT Discharge Plan Discharge Clinical Impression: Localized swelling of left foot, S/P TAVR (transcatheter aortic valve replacement) Patient Disposition: Home, Self-Care Additional Instructions: physical examination of the foot reveals swelling over the foot and ankle, with no evidence for infection, x-ray was obtained to make sure there is no underlying fractures, x-rays unremarkable, ultrasound without any blood clots, and blood work did not reveal suspicion for infection or worsening kidney function, this is localized edema I just recommend elevating her leg when not in use, make sure that you are not sitting in recliner where it is compressing your hips to much as to not allow adequate drainage of the legs, you can use a compression dressing keep your leg elevated when not in use, developing pain, spiking fevers any other concerns come back to the ER otherwise follow up with the primary care provider. Prescriptions: No Action clotrimazole 2 % cream 1 appful vaginal BEDTIME PRN (Reason: VAGINAL ITCH) Qty: 21 1RF (DME) FreeStyle [place] 2 [place] [facility] [place] See Rx Instructions .Route Qty: 1 0RF Rx Instructions: As directed clotrimazole-betamethasone 1-0.05 % cream 1 appl topical BID 10 Days Qty: 45 0RF ondansetron 4 mg tablet,disintegrating 4 mg PO Q8H PRN (Reason: nausea and vomiting) 30 Days Qty: 30 1RF azelastine 137 mcg (0.1 %) aerosol,spray 2 spray intranasal BID PRN (Reason: postnasal drip) Qty: 90 0RF Rx Instructions: administer into each nostril atorvastatin 80 mg tablet 80 mg PO BEDTIME Qty: 100 2RF omeprazole 40 mg capsule,delayed release(DR/EC) 40 mg PO DAILY 90 Days Qty: 90 3RF lorazepam 0.5 mg tablet 0.5 mg PO .qd PRN (Reason: anxiety attack) Qty: 14 0RF metoprolol succinate 50 mg tablet extended release 24 hr 100 mg PO BEDTIME Qty: 180 1RF sertraline [Zoloft] 100 mg tablet 150 mg PO DAILY 90 Days Qty: 135 1RF (DME) pen needle, diabetic [BD Ultra-Fine Orig Pen Needle] 29 gauge x 1/2 needle See Rx Instructions .Route Qty: 100 0RF Rx Instructions: Use to inject insulin once a day Zenpep 10,000-32,000 -42,000 unit capsule,delayed release(DR/EC) 1 cap PO TID 30 Days Qty: 90 3RF hyoscyamine sulfate 0.125 mg tablet 0.125 mg PO BID PRN (Reason: for indigestion) Qty: 60 2RF metformin 750 mg tablet extended release 24 hr 750 mg PO BID Qty: 60 1RF (DME) FreeStyle [place] 2 Sensor Kit See Rx Instructions .Route Qty: 6 4RF Rx Instructions: check glucose twice a day as directed doxycycline monohydrate 100 mg tablet 100 mg PO BID Qty: 20 0RF (DME) FreeStyle [place] 3 Plus Sensor Device See Rx Instructions .Route Qty: 6 3RF Rx Instructions: every 15 days (DME) FreeStyle [place] 3 [place] Misc See Rx Instructions .Route Qty: 1 0RF Rx Instructions: continuous pramipexole 0.25 mg tablet 0.25 mg PO DAILY Qty: 30 1RF trazodone 50 mg tablet 50 mg PO BEDTIME Qty: 90 3RF (DME) pen needle, diabetic 32 gauge x 5/32 needle See Rx Instructions .Route Qty: 100 2RF Rx Instructions: Use three times daily for BD olga 2nd gen (DME) lancets [OneTouch Delica Plus Lancet] 33 gauge [facility] See Rx Instructions .Route Qty: 300 3RF Rx Instructions: test blood sugar TID (DME) OneTouch Ultra Test Strip See Rx Instructions .Route Qty: 300 3RF Rx Instructions: test blood sugar TID (DME) blood-glucose meter [OneTouch Ultra2 Meter] [facility] [place] See Rx Instructions .Route Qty: 1 0RF Rx Instructions: test blood sugar TID lisinopril 2.5 mg tablet 2.5 mg PO DAILY Qty: 90 2RF Eliquis 5 mg tablet 1 tab PO Q12H Zyrtec 10 mg Capsule 10 mg PO DAILY Qty: 30 3RF folic acid 1 mg tablet 1 mg PO DAILY 90 Days Qty: 90 2RF oxycodone 10 mg Tablet 10 mg PO Q6-8H PRN (Reason: Severe Pain (Scale Score 7-10)) Qty: 90 0RF Rx Instructions: Partial Fill upon patient request. meloxicam 7.5 mg tablet 7.5 mg PO DAILY Qty: 7 0RF verapamil 100 mg capsule, [address] 100 mg PO BEDTIME cholecalciferol (vitamin D3) 50 mcg (2,000 unit) capsule 50 mcg PO DAILY ferrous fumarate 325 mg (106 mg iron) tablet 325 mg PO Q2D loperamide 2 mg capsule 2 mg PO TID PRN (Reason: yes) acetaminophen 500 mg tablet 500 mg PO BID Rx Instructions: Patient takes scheduled BID (in pill box) (DME) Donut pillow Misc See Rx Instructions .Route Qty: 1 0RF Rx Instructions: As directed isosorbide mononitrate 30 mg tablet extended release 24 hr 30 mg PO DAILY insulin glargine [Lantus Solostar U-100 Insulin] 100 unit/mL (3 mL) insulin pen 14 unit subcut QAM Qty: 30 1RF insulin lispro [Humalog Panda KwikPen U-100] 100 unit/mL insulin pen, half-unit 1 sliding scale dose subcut USEASDIRECTD Qty: 15 3RF moxifloxacin [Vigamox] 0.5 % drops 1 drp ophthalmic (eye) TID 5 Days Qty: 3 0RF Print Language: Turkish
[2025-03-12 22:35] LABS: B Type Natriuretic Peptide 104 pg/mL (<100)
[2025-03-12 22:36] LABS: Troponin-I High Sensitivity < 2.7 ng/L (<3.5-17.0)
== END 2025-03-12 23:50 | disposition home or self-care (01) ==
PROVIDERS: Emergency Provider Emergency Medicine; PCP Internal Medicine
DX: M79.89 Other specified soft tissue disorders (principal); I10 Essential (primary) hypertension; J44.9 Chronic obstructive pulmonary disease, unspecified; E11.9 Type 2 diabetes mellitus without complications; I25.10 Atherosclerotic heart disease of native coronary artery without angina pectoris; Z95.2 Presence of prosthetic heart valve; Z79.899 Other long term (current) drug therapy
CPT/HCPCS: 36415; 73600; 73620; 80048; 83880; 84484; 85025; 93005; 93971; 99284

== ENCOUNTER → 2025-03-12 21:50 | Outpatient (BNV) | payer MEDICARE, SELFPAY | PROVIDERS: Emergency Provider Emergency Medicine; PCP Internal Medicine; Visit Provider Internal Medicine Cardiovascular Disease | DX: R94.31 Abnormal electrocardiogram [ECG] [EKG] (principal); Z95.0 Presence of cardiac pacemaker | CPT/HCPCS: 93010 ==

== ENCOUNTER → 2025-03-12 22:29 | Outpatient (BNV) | payer MEDICARE, SELFPAY | PROVIDERS: Emergency Provider Emergency Medicine; PCP Internal Medicine; Visit Provider Radiology Diagnostic Radiology | DX: R22.42 Localized swelling, mass and lump, left lower limb (principal) | CPT/HCPCS: 73600; 73620; 93971 ==

== ENCOUNTER 2025-03-24 09:22 | Outpatient (AMB) | payer MEDICARE, SELFPAY ==
[2025-03-24 09:25] VITALS: BP 138/66; PULSE 63; O2SAT 96; BMI 32.7
--- NOTE | 2025-03-24 09:25 | A.OFFVIS_ITS ---
Vital Signs 03/24/25 09:25 Height 5 ft Weight 167 lb 8.821 oz BMI 32.7 BP 138/66 Blood Pressure Location Rt brachial Position Sitting Pulse 63 Pulse Source Pulse Oximeter Pulse Oximetry (%) 96 Oxygen Delivery Method Room Air Intake Visit Reasons: DM Intake Note: Patient presents today for a follow-up on Type 2 Diabetes Mellitus: Last Diabetic eye exam was on: DUE Last Podiatry exam was on: Patient does not see a [employer] Most recent HbA1c: 8.2%, 03/24/2025 Random Glucose: 193 mg/dL Celery Stripper Required: No Accompanied by: Significant Other Allergies sulfamethoxazole [From Bactrim] Allergy (Severe, Verified 03/24/25 09:26) Rash adhesive tape [ADHESIVE TAPE] Allergy (Intermediate, Verified 03/24/25 09:26) BLISTERS clonidine Allergy (Verified 03/24/25 09:26) makes pt hulusinate adhesive Adverse Reaction (Severe, Verified 03/24/25 09:26) BLISTERS gabapentin Adverse Reaction (Severe, Verified 03/24/25 09:26) hallucination hydromorphone [From Dilaudid] Adverse Reaction (Severe, Verified 03/24/25 09:26) Hallucinations morphine Adverse Reaction (Severe, Verified 03/24/25 09:26) hallucination glue Adverse Reaction (Severe, Uncoded 03/24/25 09:26) BLISTERS HPI Comments Details: 77 YO F with type 2 diabetes presenting for follow up Medical history: CAD s/p 2018, MARIBELL adenocarcinoma bony mets in remission, BCC, s/p TAVR 01/29 Initially diagnosed with diabetes >15 years ago Was initially started on treatment with metformin. She was started on insulin in 2021.Had pancreatitis 2021 Current regimen Metformin 750mg twice daily Lantus -14 units daily Humalog 2-10 units did not bring sliding scale-she forget. Per the CGM [place] 2-target 32%, high 67%, low 1%. High daytime especially 6am- 7pm. Numbers dip from ~8pm on and she has had some episodes of hypoglycemia overnight/early am A1C today is 8.9% from 12/19/24 9.3% she is s/p TAVR, PPM with delayed wound healing Treats lows with OJ . Checks sugar after to ensure it is rising. Treats according to rule of 15's. Family history of T2DM in maternal Aunt Eye exam-reports utd Denies neuropathy not sees podiatry. Denies nephropathy, on SHAMA/ARB. Has HLD, on statin. Has CAD S/P CABG . Saw medical delivery driver last year ROS see HPI PHYSICAL EXAM: GENERAL: Alert and oriented x 3. NAD EYES: EOMI. Anicteric. HENT: Moist mucous membranes. No scleral icterus. No cervical lymphadenopathy. LUNGS: Clear to auscultation bilaterally. CARDIOVASCULAR: Regular rate and rhythm. No murmur. No JVD. ABDOMEN: Soft, non-tender +bs EXTREMITIES: No edema. Non-tender. SKIN: mild purulence at BCC left forearm with some surrounding erythema and warmth NEUROLOGIC: No focal neurological deficits. CN II-XII grossly intact PSYCHIATRIC: Cooperative. Appropriate mood and affect [facility] Medical History Hx of aortic valve stenosis Depression Diabetes mellitus with hyperglycemia, with long-term current use of insulin Swelling of knee joint, left Hx of sigmoidoscopy Metformin adverse reaction Adenocarcinoma of left lung (~2021) Aortic stenosis Atypical migraine Transient cerebral ischemia AVM (arteriovenous malformation) of colon Normocytic anemia Nonrheumatic mitral valve regurgitation Nonrheumatic aortic (valve) stenosis Obesity History of blood transfusion Barretts esophagus AAA (abdominal aortic aneurysm) (~2008) Bleeding hemorrhoids Anemia Arthritis On anticoagulant therapy (~10/2020) On beta ashleigh at home Pulmonary nodules Mixed dyslipidemia Vitamin B12 deficiency GIB (gastrointestinal bleeding) COPD (chronic obstructive pulmonary disease) Bilateral pulmonary embolism (~10/2020) Restless leg syndrome Irritable bowel syndrome with both constipation and diarrhea GERD without esophagitis CAD (coronary artery disease) Essential hypertension Surgical History S/P TAVR (transcatheter aortic valve replacement) History of lung biopsy (~2021) History of esophagogastroduodenoscopy (EGD) (~2020) History of hysterectomy History of colonoscopy (~2018) History of coronary artery bypass graft x 2 (~2017) History of total right knee replacement (TKR) (~2015) History of bilateral breast reduction surgery (~2010) S/P excision of lipoma (~2017) History of heart artery stent (~2007) Family History Father HTN (hypertension) Myocardial infarction Hyperlipidemia Abdominal aneurysm Mother HTN (hypertension) Myocardial infarction Hyperlipidemia Brother Alzheimer's disease Substance abuse Sister Rheumatoid arthritis Brother Rheumatoid arthritis Maternal Aunt Diabetes mellitus Lung cancer Maternal Uncle Diabetes mellitus Son No problems noted. Daughter No problems noted. 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/ [employer] Cognitive needs: No Hearing needs: No Vision needs: Yes Physical Exam Vital Signs: Last Vital Signs Pulse 63 03/24/25 09:25 BP 138/66 03/24/25 09:25 Pulse Ox 96 03/24/25 09:25 Oxygen Delivery Method Room Air 03/24/25 09:25 BMI result Body Mass Index 32.7 Results AMB Hemoglobin A1c AMB Hemoglobin A1c 8.9 % Last Edit by SIMEON Casillas on 03/24/25 09:46 Results Reviewed Results Reviewed: Laboratory Last Values Glucose (Clinic) 193 mg/dL (60-115) H 03/24/25 09:32 Hgb A1c (Clinic) 8.9 % (4.0-6.0) H 03/24/25 09:26 Assessment & Plan Assessment & Plan (1) Diabetes mellitus with hyperglycemia, with long-term current use of insulin: Code(s): E11.65 - Type 2 diabetes mellitus with hyperglycemia; Z79.4 - nursing home (current) use of insulin Category: Medical Qualifiers: Diabetes mellitus type: type 2 Qualified Code(s): E11.65 - Type 2 diabetes mellitus with hyperglycemia; Z79.4 - nursing home (current) use of insulin (2) S/P TAVR (transcatheter aortic valve replacement): Code(s): Z95.2 - Presence of prosthetic heart valve Category: Surgical Plan DM-improved A1C still suboptimal glycemic control Want to improve without increasing frequency of overnight low Increase metformin to 1000mg BID. Add acarbose at dinner Remain at lantus 14 units She is calling today with her sliding scale so morning and lunch ss can be increased She needs to transition to 2+ or 3 sensors. 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
[2025-03-24 09:35] LABS: Glucose, Whole Blood 193 mg/dL (60-115)
--- OUTSIDE RECORDS SUMMARY | 2025-03-24 10:09 | XMS_ITS | Encounter Summary ---
Author Organization [facility] Address [address] [place] [address] Care Team Providers Care Sand Bobber Name Role Phone Sary Waite MD Primary Care Provider [phone] Encounter Details Date Type Department Care Team (Late st Contact Info) Description 03/04/2025 Telephone [facility] Cardiology [facility] [address] [place] [phone] Devyn Tenorio MD [address] [place] [address] Social History Tobacco Use Types Packs/Day Years [...] as of this encounter Progress Notes * Joseline Head RN - 03/04/2025 3:47 PM EDT I spoke to patient. The last time she took Oxycodone was last night- 10 mg. She doesn't want her body to get used to the medication. She then stated she will continue to take PRN for pain. * ALICIA Degroot - 03/04/2025 3:22 PM EDT Pain medication was not ordered- Does she already take oxycodone 10 mg every 6 to 8 hours? If so I am not ordering any other medication Tylenol and ice should be enough * Joseline Head RN - 03/04/2025 1:20 PM EDT I spoke to Dot. I sent her the below message via [place] as well. She reports soreness of the pacemaker site despite taking Tylenol and questioned if a pain medication was ordered for her. Please advise. * ALICIA Degroot - 03/04/2025 12:10 PM EDT Same instructions as when she had a recent GEN change. Keep it clean and dry do not pick at the glue. Leave the dressing on 3 days and then you can take it off. You can shower cover it with plastic after 3 days when you take the dressing off you can quickly get it wet pat it dry, NO LOTIONS OR POWDERS. Monitor for signs of infection please complete clindamycin as instructed * Joseline Head RN - 03/04/2025 12:02 PM EDT Patient underwent a pocket revision with Dr. Tenorio yesterday. Per the note, Pacemaker pocket revision and debridement with placement of a Tyrex pouch and irrigation with vancomycin. Cultures obtained. Continue clindamycin. Monitor closely for incision and pocket healing as there is a moderate riskof need for removal. Please advise on wound care. Thank you. * Tracey Ferrer - 03/04/2025 11:25 AM EDT Patient was seen at [facility] yesterday for infection, and she is unable to remember if she was given discharge papers. Mailed them out to her however she would appreciate a call to discuss how to take care of her wound. documented in this encounter Plan of Treatment Upcoming Encounters Date Type Department Care Team (Late st Contact Info) Description 03/29/2025 11:30 AM EDT Ancillary Procedure [facility] [address] [place] [address] 03/30/2025 10:00 AM EDT Ancillary Procedure [facility] [address] [place] [address] 04/07/2025 10:40 AM EDT Office Visit [facility] [address] [place] [address] [place] [address] Armando Bentley NP [address] [place] [address] [address] [place] [address] 02/28/2026 1:00 PM EDT Ancillary Procedure [facility] [address] [place] [address] documented as of this encounter Visit Diagnoses Not on filedocumented in this encounter Care Teams Sand Bobber Relationship Specialty Start Date End Date Sary Waite MD [address] [place] [address] PCP - General 02/08/16 documented as of this encounter
== END 2025-03-24 10:05 | disposition home or self-care (01) ==
LOC: HO.ENCR 09:23
PROVIDERS: PCP Internal Medicine; Visit Provider Internal Medicine
DX: E11.65 Type 2 diabetes mellitus with hyperglycemia (principal); Z79.4 Long term (current) use of insulin; Z95.2 Presence of prosthetic heart valve

== ENCOUNTER → 2025-03-24 09:22 | Outpatient (BNVA) | payer MEDICARE, SELFPAY | PROVIDERS: PCP Internal Medicine; Visit Provider Internal Medicine | DX: E11.65 Type 2 diabetes mellitus with hyperglycemia (principal); Z79.4 Long term (current) use of insulin; Z95.2 Presence of prosthetic heart valve | CPT/HCPCS: 82947; 83036; 99212 ==

== ENCOUNTER 2025-04-12 07:15 | Emergency (ER) | payer MEDICARE, SELFPAY ==
--- NOTE | ~2025-04-12 | CT_ITS ---
EXAMINATION: CT ANGIOGRAM CHEST CLINICAL INFORMATION: Right-sided chest pain. COMPARISON: June 01, 2022. TECHNIQUE: Multiple axial images were obtained through the chest after the administration of 65 mL of Omnipaque 350 intravenous contrast. Extensive vascular post-processing including two-dimensional and three-dimensional reformatted images were created and reviewed on an independent workstation. SmartPrep technique. This CT examination was performed using dose optimization techniques as appropriate, variously including the following: *Automated exposure control *Adjustment of mA and/or kV according to patient size (this includes techniques or standardized protocols for targeted exams where dose is matched to indication/reason for exam; i.e. extremities or head) *Use of iterative reconstruction technique DLP: 459 mGy centimeter. FINDINGS: Inadequate smart prepped technique. The main pulmonary artery is main branches demonstrated normal enhancement pattern without gross intraluminal filling defects. Subsegmental pulmonary artery branches are not fully evaluated. No aneurysm or dissection, thoracic aorta. Status post stenting aortic valve/ascending thoracic aorta junction. Paraseptal and to a lesser extent centrilobular emphysematous changes both lungs. There is seen 17 mm noncalcified nodular attenuation in the periphery of the apical posterior segment, left upper lung lobe. 2 mm calcified pulmonary nodule, right middle lung lobe. No gross bronchiectasis or honeycombing. Likely layering secretions in the right mainstem bronchus. Status post median sternotomy. Calcified plaques in the thoracic aorta and coronary arteries. Likely status post CABG procedure. No pericardial effusion. No pneumomediastinum. No hemopericardium. No hemothorax. Multilevel spondylosis No gross lymphadenopathy, mediastinum or perihilar. Skin mac in the anterior upper left chest wall/supraclavicular with the gas bubbles/subcutaneous emphysema in the deep fat planes abutting the left pectoralis muscles and likely associated 3.5 cm hematoma. With pronounced kyphotic deformity mid thoracic spine. No acute fracture or listhesis. No gross lytic or blastic lesions. Calcified plaques throughout the abdominal aorta wall mesenteric arteries and the splenic arteries. Calcified plaques in the origin of the main renal arteries. CT/CT angio chest PE protocol IMPRESSION: No acute central pulmonary artery artery emboli. Concerning aspiration. 17 mm noncalcified pulmonary nodule, apical posterior segment left upper lung lobe. Differential considerations include inflammatory versus infectious process. Neoplasm cannot be entirely excluded. Subcutaneous emphysema and likely 3.5 cm hematoma the fat planes of the anterior superior left upper chest wall/supraclavicular. Coronary artery disease and atherosclerosis disease. Granuloma, right middle lung lobe. Paraseptal emphysematous changes. Fleischner guidelines were followed. Electronically signed by: Reece Lima MD 04/12/2025 09:33 AM EDT
--- NOTE | 2025-04-12 07:20 | ECG_ITS ---
Test Reason : chest pain Blood Pressure : */* mmHG Vent. Rate : 83 BPM Atrial Rate : 83 BPM P-R Int : 222 ms QRS Dur : 194 ms QT Int : 468 ms P-R-T Axes : 76 -36 101 degrees QTcB Int : 549 ms Atrial-sensed ventricular-paced rhythm with prolonged AV conduction Abnormal ECG When compared with ECG of 12-Mar-2025 22:01, Vent. rate has increased by 13 bpm Referred By: Generic ED Physician Electronically Signed By: JADON PATEL MD
[2025-04-12 07:21] VITALS: BP 146/74; PULSE 74; RESP 18; TEMP 36.3; O2SAT 97; BMI 34.2
[2025-04-12 08:17] VITALS: BP 145/46; PULSE 83; RESP 13; TEMP 37.2; O2SAT 95
--- NOTE | 2025-04-12 08:20 | ED.CHESTPAIN ---
HPI - Chest Pain General Chief Complaint: Chest Pain Stated Complaint: chest and body pain Time Seen by Provider: 04/12/25 07:43 Source: patient and old records reviewed Mode of arrival: ambulatory Limitations: no limitations History of Present Illness ED Provider: SHAWANDA FRIAS narrative: 79 yo female PMH of AAA, depression, pancreatic insufficiency, GERD, migraine, anemia, HTN, HLD, TAVR in February 2025 at [facility], CHF, DM, afib on elisantos who notes back in February her pacer placed at [facility] became infected and she was on IV abx and they put in temporary wires. She then underwent leadless pacemaker placement on saturday at [facility] during the procedure she states the temporary lead dislodged and she had a prolonged pause subsequently she had CPR done during that time. She notes she has had severe R sided and sternal chest pains since then and needs to take oxycodone. Her tells me she had a CT scan when she was admitted from Saturday to Saturday and they did not report broken ribs. The patient denies cough or fevers but notes it hurts to move and breathe. 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 pain Pertinent past history: known aortic aneurysm Onset (ago): day(s) (last saturday) Timing of current episode: constant Prior episodes: Yes Onset: during rest, during exertion and awoke with symptoms Pain location: substernal and right chest Pain radiation: right scapula Severity: moderate Quality: sharp Relieving factors: rest Exacerbating factors: inspiration, palpation and movement Context: recent illness and recent surgery Treatment prior to arrival: other (oxycodone) Related Data Home Medications ?Medication ?Instructions ?Recorded ?Confirmed cholecalciferol (vitamin D3) 50 50 mcg PO DAILY 10/26/20 09/04/24 mcg (2,000 unit) capsule verapamil 100 mg capsule 24hr 100 mg PO BEDTIME 10/26/20 09/04/[address],ext.release acetaminophen 500 mg tablet 500 mg PO BID 11/07/20 09/04/24 isosorbide mononitrate 30 mg 30 mg PO DAILY 10/02/21 09/04/24 tablet,extended release 24 hr apixaban 5 mg tablet (Eliquis) 1 tab PO Q12H 02/19/22 09/04/24 ferrous fumarate 325 mg (106 mg 325 mg PO Q2D 03/16/22 09/04/24 iron) tablet loperamide 2 mg capsule 2 mg PO TID PRN yes 03/30/24 09/04/24 clindamycin HCl 300 mg capsule 300 mg PO Q6H 03/24/25 Previous Rx's ?Medication ?Instructions ?Recorded clotrimazole 2 % vaginal cream 1 appful vaginal BEDTIME PRN 10/31/21 VAGINAL ITCH #21 grams Donut pillow #1 ea 08/07/22 cetirizine 10 mg capsule (Zyrtec) 10 mg PO DAILY #30 caps 08/22/22 flash glucose scanning reader #1 ea 11/11/22 (Bluebox [place] 2 [place]) clotrimazole-betamethasone 1 1 appl topical BID 10 days #45 01/17/23 %-0.05 % topical cream grams ondansetron 4 mg disintegrating 4 mg PO Q8H PRN nausea and 11/25/23 tablet vomiting 30 days #30 tabs azelastine 137 mcg (0.1 %) nasal 2 spray intranasal BID PRN 03/15/24 spray postnasal drip #90 mL omeprazole 40 mg capsule,delayed 40 mg PO DAILY 90 days #90 caps 06/22/24 release meloxicam 7.5 mg tablet 7.5 mg PO DAILY #7 tabs 07/05/24 metoprolol succinate 50 mg 100 mg (2 x 50 mg) PO BEDTIME #180 10/30/24 tablet,extended release 24 hr tabs moxifloxacin 0.5 % eye drops 1 drp ophthalmic (eye) TID 5 days 11/05/24 (Vigamox) #3 mL pen needle, diabetic 29 gauge x #100 ea 12/11/24 1/2 (BD Ultra-Fine Original Pen Needle) [id number] 1 cap PO TID 30 days #90 caps 12/13/24 10,000-32,000-42,000 unit capsule,delayed rel (Zenpep) folic acid 1 mg tablet 1 mg PO DAILY 90 days #90 tabs 12/14/24 Lantus Solostar U-100 Insulin 100 14 unit (0.14 mL) subcut QAM #30 mL 01/20/25 unit/mL (3 mL) subcutaneous pen (insulin glargine) insulin lispro 100 unit/mL 1 sliding scale dose subcut 01/20/25 subcutaneous half-unit pen USEASDIRECTD #15 mL (Humalog Panda GeraPen (U-100)) hyoscyamine sulfate 0.125 mg tablet 0.125 mg PO BID PRN for 01/26/25 indigestion #60 tabs flash glucose sensor (FreeStyle #6 ea 02/10/25 [place] 2 Sensor kit) doxycycline monohydrate 100 mg 100 mg PO BID #20 tabs 02/16/25 tablet FreeStyle [place] 3 Plus Sensor #6 ea 02/17/25 (blood-glucose sensor) FreeStyle [place] 3 [place] #1 ea 02/17/25 (blood-glucose,jockey valet,cont) pramipexole 0.25 mg tablet 0.25 mg PO DAILY #30 tabs 02/22/25 trazodone 50 mg tablet 50 mg PO BEDTIME #90 tabs 02/22/25 OneTouch Delica Plus Lancet 33 #300 ea 02/26/25 gauge (lancets) OneTouch Ultra Test (blood sugar #300 ea 02/26/25 diagnostic) OneTouch Ultra2 Meter #1 ea 02/26/25 (blood-glucose meter) pen needle, diabetic 32 gauge x #100 ea 02/26/25 oxycodone 10 mg tablet 10 mg PO Q6-8H PRN Severe Pain 03/09/25 (Scale Score 7-10) #90 tabs lisinopril 2.5 mg tablet 2.5 mg PO DAILY #90 tabs 03/10/25 acarbose 25 mg tablet 25 mg PO DAILY #90 tabs 03/24/25 metformin 1,000 mg tablet 1,000 mg PO BID #180 tabs 03/24/25 pen needle, diabetic 32 gauge x #400 ea 03/24/25 (CareTouch Pen Needle) lorazepam 0.5 mg tablet 0.5 mg PO .qd PRN anxiety attack 03/25/25 #14 tabs atorvastatin 80 mg tablet 80 mg PO BEDTIME #90 tabs 03/26/25 sertraline 100 mg tablet (Zoloft) 150 mg (1.5 x 100 mg) PO DAILY 3 03/26/25 months #135 tabs Allergies Allergy/AdvReac Type Severity Reaction Status Date / Time sulfamethoxazole (From Allergy Severe Rash Verified 04/12/25 07:28 Bactrim) adhesive tape (ADHESIVE TAPE) Allergy Intermediate BLISTERS Verified 04/12/25 07:28 clonidine Allergy makes pt Verified 04/12/25 07:28 hulusinate adhesive AdvReac Severe BLISTERS Verified 04/12/25 07:28 gabapentin AdvReac Severe hallucinati Verified 04/12/25 07:28 on hydromorphone (From Dilaudid) AdvReac Severe Hallucinati Verified 04/12/25 07:28 ons morphine AdvReac Severe hallucinati Verified 04/12/25 07:28 on glue AdvReac Severe BLISTERS Uncoded 04/12/25 07:28 Review of Systems Review of Systems: Constitutional : No Weight loss, No Fever, No Chills ENT/Mouth : No sore throat, No Rhinorrhea Eyes: No Eye Pain, No Swelling Cardiovascular : pos Chest Pain, no SOB, no Dyspnea on Exertion, No Orthopnea, No Edema, No Palpitations Respiratory : No Cough, No Sputum Gastrointestinal :no Nausea, No Vomiting, No Diarrhea, No abdominal Pain, No Hematochezia, No Melena Genitourinary : No Dysuria, No Urinary Frequency Musculoskeletal : No joint pain, No Myalgias, No Joint Swelling Skin : No Skin Lesions, No rash Neuro : No Weakness, No Numbness, No Dizziness, No Headache Psych : No Anxiety/Panic, No Depression All other systems reviewed and are negative [facility] Past Medical History Attestation statement: The following information was validated with the patient. Source: old records reviewed Medical History Hx of aortic valve stenosis Depression Diabetes mellitus with hyperglycemia, with long-term current use of insulin Swelling of knee joint, left Hx of sigmoidoscopy Metformin adverse reaction Adenocarcinoma of left lung (~2021) Aortic stenosis Atypical migraine Transient cerebral ischemia AVM (arteriovenous malformation) of colon Normocytic anemia Nonrheumatic mitral valve regurgitation Nonrheumatic aortic (valve) stenosis Obesity History of blood transfusion Barretts esophagus AAA (abdominal aortic aneurysm) (~2008) Bleeding hemorrhoids Anemia Arthritis On anticoagulant therapy (~10/2020) On beta ashleigh at home Pulmonary nodules Mixed dyslipidemia Vitamin B12 deficiency GIB (gastrointestinal bleeding) COPD (chronic obstructive pulmonary disease) Bilateral pulmonary embolism (~10/2020) Restless leg syndrome Irritable bowel syndrome with both constipation and diarrhea GERD without esophagitis CAD (coronary artery disease) Essential hypertension Surgical History S/P TAVR (transcatheter aortic valve replacement) History of lung biopsy (~2021) History of esophagogastroduodenoscopy (EGD) (~2020) History of hysterectomy History of colonoscopy (~2018) History of coronary artery bypass graft x 2 (~2017) History of total right knee replacement (TKR) (~2015) History of bilateral breast reduction surgery (~2010) S/P excision of lipoma (~2017) History of heart artery stent (~2007) Family History Family History Father HTN (hypertension) Myocardial infarction Hyperlipidemia Abdominal aneurysm Mother HTN (hypertension) Myocardial infarction Hyperlipidemia Brother Alzheimer's disease Substance abuse Sister Rheumatoid arthritis Brother Rheumatoid arthritis Maternal Aunt Diabetes mellitus Lung cancer Maternal Uncle Diabetes mellitus Son No problems noted. Daughter No problems noted. Social History Social History Household Members: Spouse Housing: House Do you presently have visiting nurse or other home services: No Alcohol intake: current Alcohol intake frequency: does not drink Patient Tobacco Use Status: Former Tobacco user Tobacco use type: Cigarette Cigarette Packs Per Day: 2 Years Smoked: 30 e-Cigarette/Vaping Use: Never Used Second Hand Smoke Exposure: No Substance Use Type: Marijuana Advance Directives: Yes Advance Directives on File: Yes Advance Directives Date on File: 04/27/22 Do you have a plan to hurt others: No Plan service: No Current occupational status: retired 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 Oriented X3. No acute distress. Eyes: Pupils equal, round and reactive to light. ENT: Pharynx normal. Neck: Normal inspection. Neck supple. CVS: Normal heart rate and rhythm. Pulses normal. Chest: ttp along R lateral ribs, posterior ribs, sternum no hematoma noted Respiratory: No respiratory distress. Breath sounds normal. Abdomen: Soft and nontender. Skin: Skin warm and dry. Normal skin color. Normal skin turgor. Extremities: No lower extremity edema. No calf ttp Neuro: Oriented X 3. No motor deficit. No sensory deficit. CN2-12 intact Medications Administered Discontinued Medications Generic Name Dose Route Start Last Admin Trade Name Freq PRN Reason Stop Dose Admin Acetaminophen 1,000 mg in 100 mls @ 400 mls/hr 04/12/25 07:51 04/12/25 09:00 Ofirmev IV 04/12/25 08:05 Infused ONCE ONE Infusion Iohexol 100 ml 04/12/25 09:07 04/12/25 09:08 Iohexol 350 Mg/Ml 100 Ml Infus..Btl IV 04/12/25 09:08 65 ml ONCE ONE Administration Oxycodone HCl 5 mg 04/12/25 07:51 04/12/25 08:39 Oxycodone Hcl Immed Release 5 Mg Tablet PO 04/12/25 07:52 5 mg ONCE ONE Administration Pramipexole Dihydrochloride 0.25 mg 04/12/25 09:20 04/12/25 09:52 Pramipexole Di-Hcl 0.25 Mg Tablet PO 04/12/25 09:21 0.25 mg ONCE ONE Administration Medical Decision Making Medical Decision Making MDM Narrative: 79 yo female PMH of AAA, depression, pancreatic insufficiency, GERD, migraine, anemia, HTN, HLD, TAVR in February 2025 at [facility], CHF, DM, afib on eliquis s/p PPM infection now with leadless pacer placed on saturday needing CPR done (kiet) she has had sternum and R sided rib pain since then but denies fevers, sputum, hemoptysis. Her states she had a normal CT scan at [facility] aftewards. At this time given her complaints I am going to order trop x 2, CTA for PE/effusion/rib fracture/lung mass she does have a hx of lung cancer. She will be given oral pain medications and IV tylenol. EKG shows paced rhythm. Differential Diagnosis Differential Diagnoses: The differential diagnosis associated with the presentation includes pericarditis, VTE, rib fracture, pericardial effusion, ACS less likely Admission/Observation Consideration of admission/observation: Escalation of care including admission/observation considered CTA no PE no pneumonia has no cough to suggest aspiration and no wbc count, there is no effusion or pleurisy BNP mildly bumped but no clinical CHF trop flat x 2 Lab Data MDM Lab Attestation statement: I reviewed the patient's lab results. review of hemoglobin shows most recent in the 8s 04/12/25 08:15 04/12/25 08:15 Labs: Lab Results 04/12/25 04/12/25 Range/Units 08:15 10:38 WBC 8.7 (4.8-10.8) X10*3/uL RBC 2.97 L (4.20-5.50) X10*6/uL Hgb 9.4 L (12.0-16.0) g/dl Hct 28.5 L (37.0-47.0) % MCV 96.0 (80.0-98.0) fL MCH 31.6 (27.0-33.0) pg MCHC 33.0 (31.0-35.0) g/dl RDW 13.3 (11.0-16.0) % Plt Count 214 (160-400) X10*3/uL MPV 10.0 (9.4-12.3) fL Immature Gran % (Auto) 0.5 H (0.0-0.4) % Neut % (Auto) 81.2 H (45-73) % Lymph % (Auto) 10.9 L (20-40) % [place] % (Auto) 6.7 (2-11) % Eos % (Auto) 0.6 (0-4) % Baso % (Auto) 0.1 (0-2) % Lymph # (Auto) 1.0 L (1.2-4.9) X10*3/uL [place] # (Auto) 0.6 (0.1-1.2) X10*3/uL Eos # (Auto) 0.1 (0.0-0.4) X10*3/uL Baso # (Auto) 0.0 (0.0-0.2) X10*3/uL Abs Immat Gran (auto) 0.04 H (0.00-0.03) X10*3/uL Absolute Neuts (auto) 7.1 (2.0-8.3) x10*3/uL Absolute Nucleated RBC 0.000 (0.0-0.012) X10*3/uL Nucleated RBC % (auto) 0.0 (0.0-0.2) /100WBC Sodium 139 (135-145) mmol/L Potassium 4.1 (3.3-5.1) mmol/L Chloride 105 (96-108) mmol/L Carbon Dioxide 27 (22-29) mmol/L Anion Gap 11 L (12-20) BUN 19 H (9-16) mg/dL Creatinine 1.03 (0.5-1.4) mg/dL Estim Creat Clear Calc 42.6 Estimated GFR 52 Random Glucose 280 H (60-115) mg/dL Calcium 9.5 (8.4-10.2) mg/dL Magnesium 1.7 (1.6-2.6) mg/dL Total Bilirubin 0.2 (0.0-1.0) mg/dL Direct Bilirubin < 0.2 (0.0-0.5) mg/dL AST 25 (5-31) U/L ALT 13 (0-31) U/L Alkaline Phosphatase 53 (39-117) U/L Troponin I High Sens 15.2 D 15.1 (<3.5-17.0) ng/L B-Natriuretic Peptide 239 H (<100) pg/mL Total Protein 7.2 (6.5-8.0) g/dL Albumin 4.1 (3.5-5.0) g/dL Lipase 7 L (8-78) U/L Independent Interpretation I performed an independent interpretation of an: EKG and CT Scan (no acute cause of pain) Interpretation: Rate: 83 Rhythm: av paced [place]ura: left wide QRS complex. ST T wave : inverted t waves I and aVL, no ERICA qTC: 549 prior studies: changed from prior The study has been interpreted contemporaneously by me. . Radiology Impression Discussion of test interpretation with radiology: I have reviewed the radiologist's reading. Independent Historian Clinical information obtained from an independent historian. 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 TECHNIQUE: Multiple axial images were obtained through the chest after the administration of 65 mL of Omnipaque 350 intravenous contrast. Extensive vascular post-processing including two-dimensional and three-dimensional reformatted images were created and reviewed on an independent workstation. SmartPrep technique. This CT examination was performed using dose optimization techniques as appropriate, variously including the following: *Automated exposure control *Adjustment of mA and/or kV according to patient size (this includes techniques or standardized protocols for targeted exams where dose is matched to indication/reason for exam; i.e. extremities or head) *Use of iterative reconstruction technique DLP: 459 mGy centimeter. FINDINGS: Inadequate smart prepped technique. The main pulmonary artery is main branches demonstrated normal enhancement pattern without gross intraluminal filling defects. Subsegmental pulmonary artery branches are not fully evaluated. No aneurysm or dissection, thoracic aorta. Status post stenting aortic valve/ascending thoracic aorta junction. Paraseptal and to a lesser extent centrilobular emphysematous changes both lungs. There is seen 17 mm noncalcified nodular attenuation in the periphery of the apical posterior segment, left upper lung lobe. 2 mm calcified pulmonary nodule, right middle lung lobe. No gross bronchiectasis or honeycombing. Likely layering secretions in the right mainstem bronchus. Status post median sternotomy. Calcified plaques in the thoracic aorta and coronary arteries. Likely status post CABG procedure. No pericardial effusion. No pneumomediastinum. No hemopericardium. No hemothorax. Multilevel spondylosis No gross lymphadenopathy, mediastinum or perihilar. Skin mac in the anterior upper left chest wall/supraclavicular with the gas bubbles/subcutaneous emphysema in the deep fat planes abutting the left pectoralis muscles and likely associated 3.5 cm hematoma. With pronounced kyphotic deformity mid thoracic spine. No acute fracture or listhesis. No gross lytic or blastic lesions. Calcified plaques throughout the abdominal aorta wall mesenteric arteries and the splenic arteries. Calcified plaques in the origin of the main renal arteries. Prescriptions: No Action clotrimazole 2 % cream 1 appful vaginal BEDTIME PRN (Reason: VAGINAL ITCH) Qty: 21 1RF (DME) FreeStyle [place] 2 [place] Misc See Rx Instructions .Route Qty: 1 0RF Rx Instructions: As directed clotrimazole-betamethasone 1-0.05 % cream 1 appl topical BID 10 Days Qty: 45 0RF ondansetron 4 mg tablet,disintegrating 4 mg PO Q8H PRN (Reason: nausea and vomiting) 30 Days Qty: 30 1RF azelastine 137 mcg (0.1 %) aerosol,spray 2 spray intranasal BID PRN (Reason: postnasal drip) Qty: 90 0RF Rx Instructions: administer into each nostril omeprazole 40 mg capsule,delayed release(DR/EC) 40 mg PO DAILY 90 Days Qty: 90 3RF metoprolol succinate 50 mg tablet extended release 24 hr 100 mg PO BEDTIME Qty: 180 1RF (DME) pen needle, diabetic [BD Ultra-Fine Orig Pen Needle] 29 gauge x 1/2 needle See Rx Instructions .Route Qty: 100 0RF Rx Instructions: Use to inject insulin once a day Zenpep 10,000-32,000 -42,000 unit capsule,delayed release(DR/EC) 1 cap PO TID 30 Days Qty: 90 3RF hyoscyamine sulfate 0.125 mg tablet 0.125 mg PO BID PRN (Reason: for indigestion) Qty: 60 2RF (DME) FreeStyle [place] 2 Sensor Kit See Rx Instructions .Route Qty: 6 4RF Rx Instructions: check glucose twice a day as directed doxycycline monohydrate 100 mg tablet 100 mg PO BID Qty: 20 0RF (DME) FreeStyle [place] 3 Plus Sensor Device See Rx Instructions .Route Qty: 6 3RF Rx Instructions: every 15 days (DME) FreeStyle [place] 3 [place] Misc See Rx Instructions .Route Qty: 1 0RF Rx Instructions: continuous pramipexole 0.25 mg tablet 0.25 mg PO DAILY Qty: 30 1RF trazodone 50 mg tablet 50 mg PO BEDTIME Qty: 90 3RF ([facility]) pen needle, diabetic 32 gauge x needle See Rx Instructions .Route Qty: 100 2RF Rx Instructions: Use three times daily for BD olga 2nd gen (DME) lancets [OneTouch Delica Plus Lancet] [facility] See Rx Instructions .Route Qty: 300 3RF Rx Instructions: test blood sugar TID (DME) OneTouch Ultra Test Strip See Rx Instructions .Route Qty: 300 3RF Rx Instructions: test blood sugar TID (DME) blood-glucose meter [OneTouch Ultra2 Meter] [facility] See Rx Instructions .Route Qty: 1 0RF Rx Instructions: test blood sugar TID lisinopril 2.5 mg tablet 2.5 mg PO DAILY Qty: 90 2RF lorazepam 0.5 mg tablet 0.5 mg PO .qd PRN (Reason: anxiety attack) Qty: 14 0RF atorvastatin 80 mg tablet 80 mg PO BEDTIME Qty: 90 1RF sertraline [Zoloft] 100 mg tablet 150 mg PO DAILY 90 Days Qty: 135 0RF Eliquis 5 mg tablet 1 tab PO Q12H Zyrtec 10 mg Capsule 10 mg PO DAILY Qty: 30 3RF folic acid 1 mg tablet 1 mg PO DAILY 90 Days Qty: 90 2RF oxycodone 10 mg Tablet 10 mg PO Q6-8H PRN (Reason: Severe Pain (Scale Score 7-10)) Qty: 90 0RF Rx Instructions: Partial Fill upon patient request. meloxicam 7.5 mg tablet 7.5 mg PO DAILY Qty: 7 0RF verapamil 100 mg capsule, [address] 100 mg PO BEDTIME cholecalciferol (vitamin D3) 50 mcg (2,000 unit) capsule 50 mcg PO DAILY ferrous fumarate 325 mg (106 mg iron) tablet 325 mg PO Q2D loperamide 2 mg capsule 2 mg PO TID PRN (Reason: yes) acetaminophen 500 mg tablet 500 mg PO BID Rx Instructions: Patient takes scheduled BID (in pill box) ([facility]) Donut pillow [facility] See Rx Instructions .Route Qty: 1 0RF Rx Instructions: As directed isosorbide mononitrate 30 mg tablet extended release 24 hr 30 mg PO DAILY insulin glargine [Lantus Solostar U-100 Insulin] 100 unit/mL (3 mL) insulin pen 14 unit subcut QAM Qty: 30 1RF insulin lispro [Humalog Panda GeraPen U-100] 100 unit/mL insulin pen, half-unit 1 sliding scale dose subcut USEASDIRECTD Qty: 15 3RF moxifloxacin [Vigamox] 0.5 % drops 1 drp ophthalmic (eye) TID 5 Days Qty: 3 0RF clindamycin HCl 300 mg capsule 300 mg PO Q6H metformin 1,000 mg tablet 1,000 mg PO BID Qty: 180 3RF acarbose 25 mg tablet 25 mg PO DAILY Qty: 90 3RF Rx Instructions: with dinner (DME) pen needle, diabetic [CareTouch Pen Needle] 32 gauge x 5/32 needle See Rx Instructions .Route Qty: 400 3RF Rx Instructions: 4 daily subcutaneous for insulin administration Interventions: ED Discharge Assessment Last Done: 04/12/25 11:58 Discharge Date/Time: 04/12/25 12:00 Print Language: Maldivian
[2025-04-12 08:21] LABS: MANUAL DIFF FLAG NO
--- OUTSIDE RECORDS SUMMARY | 2025-04-12 08:21 | XMS_ITS | Referral Summary ---
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 Care Teams Sewer Pipe Cleaner Relationship Specialty Start Date End Date Sary Waite MD [address] [place] [id number] PCP - General Internal Medicine 11/18/24
[2025-04-12 08:24] LABS: Basophils Percent Auto 0.1 % (0-2); Eosinophils Absolute Auto 0.1 X10*3/uL (0.0-0.4); Eosinophils Percent Auto 0.6 % (0-4); Hematocrit 28.5 % (37.0-47.0); Hemoglobin 9.4 g/dl (12.0-16.0); Imm Gran Abs Auto 0.04 X10*3/uL (0.00-0.03); Imm Gran Pct Auto 0.5 % (0.0-0.4); Lymphocytes Percent Auto 10.9 % (20-40); Mean Corpuscular Hemoglobin 31.6 pg (27.0-33.0); Monocytes Absolute Auto 0.6 X10*3/uL (0.1-1.2); Monocytes Percent Auto 6.7 % (2-11); Neutrophils Absolute Auto 7.1 x10*3/uL (2.0-8.3); Neutrophils Percent Auto 81.2 % (45-73); Platelet Count 214 X10*3/uL (160-400); Red Blood Count 2.97 X10*6/uL (4.20-5.50); Red Cell Distribution Width 13.3 % (11.0-16.0); White Blood Count 8.7 X10*3/uL (4.8-10.8)
[2025-04-12] MEDS: Acetaminophen 1,000 MG/100 ML PIGGYBACK 400 MG IV (08:39)
[2025-04-12] MEDS: oxyCODONE HCl Immed Release 5 MG TABLET PO (08:39)
[2025-04-12 08:40] LABS: Alanine Aminotransferase 13 U/L (0-31); Albumin Level 4.1 g/dL (3.5-5.0); Alkaline Phosphatase 53 U/L (39-117); Anion Gap 11 (12-20); Aspartate Amino Transferase 25 U/L (5-31); Bilirubin Direct < 0.2 mg/dL (0.0-0.5); Bilirubin Total 0.2 mg/dL (0.0-1.0); Blood Urea Nitrogen 19 mg/dL (9-16); Calcium 9.5 mg/dL (8.4-10.2); Carbon Dioxide 27 mmol/L (22-29); Chloride 105 mmol/L (96-108); Creatinine Clr Calc Pharmacy 42.6; Estimated Glomerular Filt Rate 52; Glucose Random 280 mg/dL (60-115); Lipase 7 U/L (8-78); Magnesium 1.7 mg/dL (1.6-2.6); Potassium 4.1 mmol/L (3.3-5.1); Sodium 139 mmol/L (135-145); Total Protein 7.2 g/dL (6.5-8.0)
[2025-04-12 08:44] LABS: B Type Natriuretic Peptide 239 pg/mL (<100)
[2025-04-12 08:47] LABS: Troponin-I High Sensitivity 15.2 ng/L (<3.5-17.0)
[2025-04-12] MEDS: iohexoL 350 MG/ML 100 ML INFUS..BTL IV (09:08)
[2025-04-12] MEDS: Pramipexole Di-HCL 0.25 MG TABLET PO (09:52)
[2025-04-12 10:00] VITALS: BP 134/42; PULSE 90; RESP 18; TEMP 37; O2SAT 96
[2025-04-12 11:08] LABS: Troponin-I High Sensitivity 15.1 ng/L (<3.5-17.0)
[2025-04-12 11:52] VITALS: BP 147/64; PULSE 76; RESP 18; TEMP 37.1; O2SAT 96
[2025-04-12 11:58] VITALS: BP 147/64; PULSE 76; RESP 18; TEMP 37.1; O2SAT 96
== END 2025-04-12 12:00 | disposition home or self-care (01) ==
PROVIDERS: Emergency Provider Emergency Medicine; PCP Internal Medicine
DX: R07.89 Other chest pain (principal); E11.9 Type 2 diabetes mellitus without complications; I10 Essential (primary) hypertension; E78.5 Hyperlipidemia, unspecified; I48.91 Unspecified atrial fibrillation; Z79.01 Long term (current) use of anticoagulants; Z95.0 Presence of cardiac pacemaker; Z87.891 Personal history of nicotine dependence; F12.90 Cannabis use, unspecified, uncomplicated; Z79.899 Other long term (current) drug therapy; Z79.4 Long term (current) use of insulin; Z79.85 Long-term (current) use of injectable non-insulin antidiabetic drugs; Z79.84 Long term (current) use of oral hypoglycemic drugs; Z79.02 Long term (current) use of antithrombotics/antiplatelets
CPT/HCPCS: 36415; 71275; 80048; 80076; 83690; 83735; 83880; 84484; 85025; 93005; 96365; 99284; J0131; Q9967

== ENCOUNTER → 2025-04-12 07:20 | Outpatient (BNV) | payer MEDICARE, SELFPAY | PROVIDERS: Emergency Provider Emergency Medicine; PCP Internal Medicine; Visit Provider Internal Medicine Cardiovascular Disease | DX: I45.9 Conduction disorder, unspecified (principal); Z95.0 Presence of cardiac pacemaker | CPT/HCPCS: 93010 ==

== ENCOUNTER → 2025-04-12 07:51 | Outpatient (BNV) | payer MEDICARE, SELFPAY | PROVIDERS: Emergency Provider Emergency Medicine; PCP Internal Medicine; Visit Provider Radiology Diagnostic Radiology | DX: I25.10 Atherosclerotic heart disease of native coronary artery without angina pectoris (principal); R91.1 Solitary pulmonary nodule; J84.10 Pulmonary fibrosis, unspecified; J43.9 Emphysema, unspecified | CPT/HCPCS: 71275 ==

== ENCOUNTER 2025-05-03 11:38 | Outpatient (AMB) | payer MEDICARE, SELFPAY ==
--- OUTSIDE RECORDS SUMMARY | 2025-04-29 13:00 | XMS_ITS | Encounter Summary ---
Author Organization [facility] Address [address] [place] [address] Care Team Providers Care Receiving Distribution Station Operator Name Role Phone Sary Waite MD Primary Care Provider [phone] Reason for Visit * Other Medical (Routine) - Closed Specialty Diagnoses / Procedures Referred By Kimberly t Referred To Contact Cardiology Diagnoses [Per [facility]; 1 wk wound chk w device clinic] 04/22/25 bkd w pt, handed rmd ltr-KristianM Procedures CLINIC WOUND CHECK Sary Waite MD [address] [place] [phone] Phone: tel: [facility] Cardiology [facility] [address] [facility] [address] [place] [address] Phone: tel: fax: Referral ID Status Reason Start Date Expiration Date Visits Re quested Visits Authorized [id number] Closed 11/27/2024 11/27/2025 1 1 Encounter Details Date Type Department Care Team (Late st Contact Info) Description 04/29/2025 1:00 PM EDT Ancillary Procedure [facility] Cardiology [facility] [address] [facility] [address] [place] [address] Social History Tobacco Use Types Packs/Day Years Used Date Smoking Tobacco: Former Cigarettes Smokeless Tobacco: Never Alcohol Use Standard Drinks/Week Comments Not Currently 0 (1 standard drink = 0.6 oz pur e alcohol) Housing Instability Answer Date Recorde d Are you worried that in the next 2 months you may not have stable housing? Patient declined 04/08/2025 Food Access & Nutrition Answer Date Rec orded Do you have access to a vari ety of food including fruits and vegetables? Patient declined 04/08/2025 Health Literacy Answer Date Recorded How often do you need to hav e someone help you when you read instructions, pamphlets, or other written material from your doctor or pharmacy? Patient declined 04/08/2025 Caregiver: How often do you need to have someone help you when you read instructions, pamphlets, or other written material from your doctor or pharmacy? Not on file 025 Financial Risk Answer Date Recorded How hard is it for you to pa y for the very basics like food, housing, medical care, and air conditioning / heating? Patient declined 04/08/2025 Transportation Answer Date Recorded Has the lack of transportati on kept you from meetings, work, or from getting things needed for daily living? Patient declined 04/08/2025 Has the lack of transportati on kept you from medical appointments or from getting medications? Patient declined 04/08/2025 Social Isolation Answer Date Recorded How often do you feel lonely or isolated from those around you? Patient declined 04/08/2025 Food Risk Answer Date Recorded Within the past 12 months we worried whether our food would run out before we got money to buy more. Patient declined 025 Within the past 12 months th e food we bought just didn't last and we didn't have money to get more. Patient declined 03/15 Dependent Care Answer Date Recorded Do you need help finding or paying for care for your loved ones. For example, attendant children's institution or elderly care for an older adult? Patient declined 04/08/2025 Education Answer Date Recorded Do you think completing more education or training, like finishing a GED, going to college, or learning a trade, would be helpful for you? Patient declined 04/08/2025 Employment and Income Answer Date Recor ded During the last four weeks, have you been actively looking for work? Patient declined 04/08/2025 Living Situation Answer Date Recorded What is your living situation? 0 04/08/2025 Interpersonal Safety Answer Date Record ed Physical Abuse 04/08/2025 Verbal Abuse 04/08/2025 Comments No Sex and Gender Information Value Date Recorded Sex Assigned at Female 02/18/2023 11:05 PM EDT Legal Sex Female 6:06 PM EST Gender Identity Female 02/18/2023 11:05 PM EDT Sexual Orientation Straight 02/18/2023 11 :05 PM EDT documented as of this encounter Plan of Treatment Upcoming Encounters Date Type Department Care Team (Late st Contact Info) Description 05/21/2025 1:00 PM EDT Ancillary Procedure [facility] Cardiology [facility] [address] [place] [address] 07/20/2025 1:10 PM EDT Office Visit [facility] Cardiology [facility] [address] [place] [address] Armando Bentley NP [address] [place] [address] [address] [place] [address] 02/28/2026 1:00 PM EDT Ancillary Procedure [facility] [address] [place] [address] documented as of this encounter Visit Diagnoses Not on filedocumented in this encounter Care Teams Receiving Distribution Station Operator Relationship Specialty Start Date End Date Sary Waite MD [address] [place] [address] PCP - General 02/08/16 documented as of this encounter
--- NOTE | 2025-05-03 12:38 | MHC.PC.OV ---
Vital Signs 05/03/25 12:39 Height 5 ft Weight 170 lb BMI 33.2 BP 124/50 L Blood Pressure Location Lt brachial Position Sitting Respiration 20 Pulse 72 Pulse Source Pulse Oximeter Temp 98.3 F Temp Source Oral Pulse Oximetry (%) 97 Oxygen Delivery Method Room Air Intake Visit Reasons: HDF Allergies sulfamethoxazole (From Bactrim) Allergy (Severe, Verified 05/09/25 00:39) Rash adhesive tape (ADHESIVE TAPE) Allergy (Intermediate, Verified 05/09/25 00:39) BLISTERS clonidine Allergy (Verified 05/09/25 00:39) makes pt hulusinate adhesive Adverse Reaction (Severe, Verified 05/09/25 00:39) BLISTERS gabapentin Adverse Reaction (Severe, Verified 05/09/25 00:39) hallucination hydromorphone (From Dilaudid) Adverse Reaction (Severe, Verified 05/09/25 00:39) Hallucinations morphine Adverse Reaction (Severe, Verified 05/09/25 00:39) hallucination glue Adverse Reaction (Severe, Uncoded 05/09/25 00:39) BLISTERS Medication List - Last Reconciled 05/09/25 by Sary Waite MD acarbose 25 mg PO DAILY acetaminophen 500 mg PO BID apixaban (Eliquis) 1 tab PO Q12H atorvastatin 80 mg PO BEDTIME azelastine 2 sprays intranasal BID PRN buspirone 5 mg PO TID cetirizine (Zyrtec) 10 mg PO DAILY cholecalciferol (vitamin D3) 50 mcg PO DAILY clotrimazole 2% 1 appful vaginal BEDTIME PRN clotrimazole-betamethasone 1-0.05 % 1 appl topical BID 10 days Donut pillow As directed ferrous fumarate 325 mg PO DAILY flash glucose scanning reader (FreeStyle [place] 2 [place]) As directed flash glucose sensor (FreeStyle [place] 2 Sensor kit) check glucose twice a day as directed folic acid 1 mg PO DAILY 90 days FreeStyle [place] 3 Plus Sensor (blood-glucose sensor) every 15 days NS FreeStyle [place] 3 [place] (blood-glucose,electric meter tester shop,cont) continuous NS hyoscyamine sulfate 0.125 mg PO BID PRN insulin lispro (Humalog Panda KwikPen (U-100)) 1 sliding scale dose subcut USEASDIRECTD isosorbide mononitrate ER 30 mg PO DAILY Lantus Solostar U-100 Insulin (insulin glargine) 14 units (0.14 mL) subcut QAM NS sjtomc-[id number]-rzrqvwf 10,000-32,000 -42,000 unit (Zenpep) 1 cap PO TID 30 days lisinopril 2.5 mg PO DAILY loperamide 2 mg PO TID PRN lorazepam 0.5 mg PO .qd PRN meloxicam 7.5 mg PO DAILY metformin 1,000 mg PO BID metoprolol succinate ER 100 mg (2 x 50 mg) PO BEDTIME omeprazole 40 mg PO DAILY 90 days ondansetron 4 mg PO Q8H PRN 30 days OneTouch Delica Plus Lancet (lancets) test blood sugar TID NS OneTouch Ultra Test (blood sugar diagnostic) test blood sugar TID NS OneTouch Ultra2 Meter (blood-glucose meter) test blood sugar TID NS oxycodone 10 mg PO Q6-8H PRN pen needle, diabetic (BD Ultra-Fine Original Pen Needle) Use to inject insulin once a day pen needle, diabetic (CareTouch Pen Needle) 4 daily subcutaneous for insulin administration pen needle, diabetic Use three times daily for BD olga 2nd gen pramipexole 1 mg PO BEDTIME sertraline (Zoloft) 150 mg (1.5 x 100 mg) PO DAILY 3 months verapamil ER 100 mg PO BEDTIME Tobacco use date assessed: 05/03/25 Fall risk assessment: No Falls in past year Last assessed Fall Risk: 05/03/25 Dental Screening Dental Screen Date: 02/08/25 [facility] HDF HPI Details 79-year-old lady with past medical history significant for coronary artery disease status post CABG times [place] [address] Estrada, history of aortic stenosis status post TAVR and permanent pacemaker placement for complete heart block done 01/29/2025, has moderate MR, history of pulmonary embolism on Eliquis, hypertension, hyperlipidemia, type 2 diabetes mellitus end-stage for lung cancer in remission who was recently admitted for complains of frequent palpitations, here now for her HD F. She is followed at [facility] by Dr. Hernandez. During admission her pacemaker was interrogated with no event, and normal functioning device noted.. 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 Tenorio recommended to increase metoprolol to 150 mg once a day. She was then discharged overnight to home the next day. During her admission she was noted to have slightly swollen left lower extremity greater than the right, currently on Eliquis, no respiratory complaints, Doppler ultrasound of lower extremity came back negative for DVT She was noted to have normocytic anemia with no evidence of any active bleed, and was continued on whole ferrous sulfate, supplemental B12 and folic acid on discharge She was continued on her current home regimen for treatment of her diabetes mellitus and was discharged on diltiazem metoprolol, and lisinopril for control of her blood pressure. She is currently on sertraline and lorazepam, the latter taken as needed for acute anxiety attacks, but patient states that lately she has been having more frequent episodes of anxiety, feels overwhelmed with all her medical issues and not being able to get a full night's rest at night due to her restless leg., She was continued on PPI for her gastroesophageal reflux disease' Patient however complains that she is not having any rest at all in unable to sleep at night after her discharge due to recurrent episodes of restless leg which has been occurring day and night. Already taking pramipexole 0.5 mg at bedtime which has not really been helping much. [facility] Medical History (Updated 05/09/25 @ 00:55 by Sary Waite MD) Depression with anxiety Hx of aortic valve stenosis Depression Diabetes mellitus with hyperglycemia, with long-term current use of insulin Swelling of knee joint, left Hx of sigmoidoscopy Metformin adverse reaction Adenocarcinoma of left lung (~2021) Aortic stenosis Atypical migraine Transient cerebral ischemia AVM (arteriovenous malformation) of colon Normocytic anemia Nonrheumatic mitral valve regurgitation Nonrheumatic aortic (valve) stenosis Obesity History of blood transfusion Barretts esophagus AAA (abdominal aortic aneurysm) (~2008) Bleeding hemorrhoids Anemia Arthritis On anticoagulant therapy (~10/2020) On beta ashleigh at home Pulmonary nodules Mixed dyslipidemia Vitamin B12 deficiency GIB (gastrointestinal bleeding) COPD (chronic obstructive pulmonary disease) Bilateral pulmonary embolism (~10/2020) Restless leg syndrome Irritable bowel syndrome with both constipation and diarrhea GERD without esophagitis CAD (coronary artery disease) Essential hypertension Surgical History S/P TAVR (transcatheter aortic valve replacement) History of lung biopsy (~2021) History of esophagogastroduodenoscopy (EGD) (~2020) History of hysterectomy History of colonoscopy (~2018) History of coronary artery bypass graft x 2 (~2017) History of total right knee replacement (TKR) (~2015) History of bilateral breast reduction surgery (~2010) S/P excision of lipoma (~2017) History of heart artery stent (~2007) Family History Father HTN (hypertension) Myocardial infarction Hyperlipidemia Abdominal aneurysm Mother HTN (hypertension) Myocardial infarction Hyperlipidemia Brother Alzheimer's disease Substance abuse Sister Rheumatoid arthritis Brother Rheumatoid arthritis Maternal Aunt Diabetes mellitus Lung cancer Maternal Uncle Diabetes mellitus Son No problems noted. Daughter No problems noted. 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 Depression Screening Interpretation: Negative Depression Screening Done: Yes Source: Developed by Drs. Alexey Arreaga, Yokasta Paulino, Pieter Oro and colleagues, with an educational jose j from [employer]. Thrive Questionnaire Date Thrive assessed: 10/29/24 I am a: Patient What is your living situation today?: I have a steady place to live Within the past 12 months, did the food you bought not last and you didn't have the money to get more?: Never true Within the past 12 months, did you worry whether your food would run out before you got money to buy more?: Never true Do you have trouble paying for medicines?: No Do you have trouble getting transportation to medical appointments?: No Do you have trouble paying your heating and electricity bill?: No Do you have trouble taking care of your child, family member or friend?: No Do you have trouble with day-to-day activities such as bathing, preparing meals, shopping, managing finances, etc.?: Yes Are you currently unemployed and looking for a job?: No Are you interested in more education?: No Please select the resources that you would like help with: None Currently or been in a relationship where the following occur: No concerns reported THRIVE Score: 0 BO-7 AMB Questionnaire BO-7 Date BO - 7 assessed: 05/09/25 Feeling nervous, anxious, or on edge: 1 = Several days Not being able to stop or control worryin = Several days Worrying too much about different things: 1 = Several days Trouble relaxin = Several days Being so restless that it is hard to sit still: 0 = Not at all Becoming easily annoyed or irritable: 1 = Several days Feeling afraid as if something awful might happen: 1 = Several days Total BO-7 score (0-4 normal; 5-9 mild; 10-14 moderate; 15-21 severe): 6 Source: Developed by Drs. Alexey Arreaga, Yokasta Paulino, Pieter Oro and colleagues, with an educational jose j from [employer]. BO-7 Assessment Billing BO-7 Assessment Tool: BO-7 Assessment 82735 Review of Systems Const Denies fever(s), Denies frequent falls and Denies headache(s) Eyes Reports no additional complaints ENT Denies dysphagia and Denies headache(s) Card Denies syncope, Denies irregular heart rhythm and Denies dyspnea Resp Denies cough, Denies dyspnea and Denies wheezing GI Denies abdominal pain, Denies melena, Denies change in bowel habits, Denies dysphagia and Denies vomiting Musc Denies arthralgias, Denies joint swelling and Reports stiffness Neuro Denies syncope, Denies frequent falls and Denies headache(s) Psych Reports no additional complaints Endo Denies polyphagia Lele/Lymph Reports easy bruising Aller/Immun Denies wheezing Physical exam (Primary Care) Vital Signs: Last Vital Signs Temp 98.3 F 05/03/25 12:39 Pulse 72 05/03/25 12:39 Resp 20 07/21/25 12:39 BP 124/50 L 05/03/25 12:39 Pulse Ox 97 05/03/25 12:39 Oxygen Delivery Method Room Air 05/03/25 12:39 BMI result Body Mass Index 33.2 Tobacco/Smoking Status: Tobacco use Status Tobacco use date assessed 05/03/25 05/03/25 12:43 Patient Tobacco Use Status Former Tobacco user 05/03/25 12:43 Tobacco use type Cigarette 05/03/25 12:43 e-Cigarette/Vaping Use Never Used 05/03/25 12:43 Depression Screening Interpretation: Negative Thrive Assessment: Date of Thrive Assessment Date Thrive assessed 10/29/24 05/03/25 12:43 Currently or been in a relationship where the following occur: No concerns reported Const Other: Alert oriented x3, no acute cardiorespiratory distress, ambulatory with normal gait Orientation/consciousness: patient oriented x3 HENMT Mouth: Normal oral and palatal mucosa present and moist mucous membranes Neck Other: Supple, no lymphadenopathy, thyroid gland nonpalpable Resp Effort & Inspection: normal respiratory effort and able to speak in complete sentences Auscultation: clear to auscultation bilaterally Cardio Other: S1-S2 present regular rate and rhythm GI Palpation (GI): Soft to palpation, nontender, no guarding and no masses Auscultation: normal bowel sounds General: Yes no CVA tenderness Back/Spine/Pelvis Back: no CVA tenderness Neuro General: patient oriented x3, gait normal, tone normal, moves all extremities, Normal light touch and pain sensation, no focal motor deficits and CN's II-XI intact bilaterally Extrem General: Yes full ROM, Yes no calf tenderness and Yes normal gait Psych Appearance: grossly normal and well kempt Mental Status: mental status grossly normal Speech and movement: Normal speech and movement present Affect: Anxious affect present Attitude: cooperative Results Reviewed Results Reviewed: Name: Brittany Onofre Age/Sex: 79/F : 1945 Unit#: [id number] Attend Dr: Faith Bautista DO Re04/12/25 Status: [facility]: SPEC : [id number] KIKI: 04/12/25 STATUS: COMP REQ : [id number] RECD: 04/12/[address] [facility] [address]: Faith Bautista DO COMP: 04/12/25 ENTERED: 04/12/25 [facility] DR: Sary Waite MD ORDERED: CBC Auto Diff Test Result Flag Reference WBC 8.7 4.8-10.8 X10*3/uL RBC 2.97 L 4.20-5.50 X10*6/uL HGB 9.4 L 12.0-16.0 g/dl HCT 28.5 L 37.0-47.0 % MCV 96.0 80.0-98.0 fL MCH 31.6 27.0-33.0 pg MCHC 33.0 31.0-35.0 g/dl RDW 13.3 11.0-16.0 % PLT 214 160-400 X10*3/uL MPV 10.0 9.4-12.3 fL Neut Pct Auto 81.2 H 45-73 % ImGran Pct Auto 0.5 H 0.0-0.4 % Lymp Pct Auto 10.9 L 20-40 % [place] Pct Auto 6.7 2-11 % Eos Pct Auto 0.6 0-4 % Baso Pct Auto 0.1 0-2 % NRBC Pct Auto 0.0 0.0-0.2 /100WBC ANC Neut Abs # 7.1 2.0-8.3 x10*3/uL ImGran Abs Auto 0.04 H 0.00-0.03 X10*3/uL Lymph Abs Auto 1.0 L 1.2-4.9 X10*3/uL [place] Abs Auto 0.6 0.1-1.2 X10*3/uL Eos Abs Auto 0.1 0.0-0.4 X10*3/uL Baso Abs Auto 0.0 0.0-0.2 X10*3/uL NRBC Abs Auto 0.000 0.0-0.012 X10*3/uL Coding Level of Care Code Est Pt Level 4 (13766) Diagnoses Restless leg syndrome G25.81 Normocytic anemia D64.9 Depression with anxiety F41.8 Essential hypertension I10 Type 2 diabetes mellitus with hyperglycemia, with long-term current use of insulin E11.65; Z79.4 Diabetes mellitus type: type 2 Additional Codes BO-7 Assessment Billing - BO-7 Assessment Tool: BO-7 Assessment 38114 ([id number]) Assessment & Plan Assessment & Plan (1) Restless leg syndrome: Code(s): G25.81 - Restless legs syndrome Category: Medical Plan: Increase dose of pramipexole to 1 mg at bedtime (2) Normocytic anemia: Code(s): D64.9 - Anemia, unspecified Category: Medical Plan: Continue taking ferrous sulfate 325 mg taken once a day (3) Depression with anxiety: Code(s): F41.8 - Other specified anxiety disorders Category: Medical Plan: Continue with sertraline 50 mg once a day, and lorazepam to be taken as needed only for acute anxiety attacks. Added buspirone 5 mg per tablet. Patient instructed that she may initially take it 1 tablet twice a day with a without food and may take an extra dose during the middle of the day if she is still is having persistent anxiety attacks. (4) Essential hypertension: Code(s): I10 - Essential (primary) hypertension Category: Medical Plan: Blood pressure at goal of less than 130/80. Continue with current medication. Reinforced importance of following a low sodium diet, getting regular exercise, and lowering stress levels. (5) Diabetes mellitus with hyperglycemia, with long-term current use of insulin: Code(s): E11.65 - Type 2 diabetes mellitus with hyperglycemia; Z79.4 - detention (current) use of insulin Category: Medical Qualifiers: Diabetes mellitus type: type 2 Qualified Code(s): E11.65 - Type 2 diabetes mellitus with hyperglycemia; Z79.4 - detention (current) use of insulin Plan: Last hemoglobin A1c in March 2025 was 8.9%. Reinforced importance of following recommended diet. Continued on Humalog and Lantus at the same dose, check blood sugar levels at home with the use of her freestyle [place]. May increase Lantus dose by 2 units every 2 days depending on her blood sugar means are. Patient reminded to get her yearly diabetes retinopathy screening and see podiatry yearly as well. Medications: New buspirone 5 mg PO TID 90 tabs 0RF F41.8 - Other specified anxiety disorders pramipexole 1 mg PO BEDTIME 30 tabs 1RF G25.81 - Restless legs syndrome ferrous fumarate 325 mg PO DAILY 90 tabs 2RF D64.9 - Anemia, unspecified pramipexole 1 mg PO BEDTIME 30 tabs 1RF G25.81 - Restless legs syndrome Refilled lorazepam 0.5 mg PO .qd PRN 30 tabs 0RF anxiety attack ondansetron 4 mg PO Q8H PRN 30 tabs 1RF nausea and vomiting 30 days R11.0 - Nausea Discontinued trazodone Discontinued Reason: Doctor's Order 50 mg PO BEDTIME 90 tabs 3RF pramipexole Discontinued Reason: Patient no longer taking 0.25 mg PO DAILY 30 tabs 1RF
[2025-05-03 12:39] VITALS: BP 124/50; PULSE 72; RESP 20; TEMP 36.8; O2SAT 97; BMI 33.2
--- OUTSIDE RECORDS SUMMARY | 2025-05-03 12:44 | XMS_ITS | Referral Summary ---
Author Organization [facility] Address [address] [place] [address] Care Team Providers Care Gas Line Repairer Name Role Phone Sary Waite MD Primary [...] 137 mcg (0.1 %) nasal spray [employer] [place](s) Both Nares Twice Daily PRN 4 Active [...] of [place] [id number] [facility] Care Teams Gas Line Repairer Relationship Specialty Start Date End Date Sary Waite MD [address] [place] [address] PCP - General Internal Medicine 11/18/24
--- OUTSIDE RECORDS SUMMARY | 2025-05-03 12:44 | XMS_ITS | Clinical Summary ---
Author Organization [facility] Address [address] [address] Care Team Providers Care Ferris Wheel Attendant Name Role Phone Elayne Waite MD Primary Care Provider [phone] Allergies Active Allergy Reactions Criticality Noted Date [...] Pneumococcal Vaccine: 50+ Ye ars (1 of 1 - PCV) 1997 Diabetes: Hemoglobin A1C 02/26/2022 Diabetes: Ophthalmology Exam 02/26/2022 Diabetes: Pedal Pulse Checked 02/26/2022 Diabetes: Sensory Foot Exam 02/26/2022 Diabetes: Visual Foot Exam 02/26/2022 Influenza Vaccine (#1) 2025 Hepatitis B Vaccine Aged Out No longe r eligible based on patient's age to complete this topic Insurance [facility] [employer] Medicare [employer] Care Teams Ferris Wheel Attendant Relationship Specialty Start Date End Date Elayne Waite MD [address] [place] [address] PCP - General Internal Medicine 02/26/22
== END 2025-05-03 13:52 | disposition home or self-care (01) ==
LOC: HO.HMCC 11:39
PROVIDERS: PCP Internal Medicine; Visit Provider Internal Medicine
DX: G25.81 Restless legs syndrome (principal); E11.65 Type 2 diabetes mellitus with hyperglycemia; Z79.4 Long term (current) use of insulin; D64.9 Anemia, unspecified; F41.8 Other specified anxiety disorders; I10 Essential (primary) hypertension

== ENCOUNTER → 2025-05-03 11:38 | Outpatient (BNVA) | payer MEDICARE, SELFPAY | PROVIDERS: PCP Internal Medicine; Visit Provider Internal Medicine | DX: I10 Essential (primary) hypertension (principal); E78.5 Hyperlipidemia, unspecified; G25.81 Restless legs syndrome; D64.9 Anemia, unspecified; F41.8 Other specified anxiety disorders; E11.65 Type 2 diabetes mellitus with hyperglycemia; Z79.4 Long term (current) use of insulin; Z79.01 Long term (current) use of anticoagulants; Z86.711 Personal history of pulmonary embolism; Z95.1 Presence of aortocoronary bypass graft | CPT/HCPCS: 96127; 99212 ==

== ENCOUNTER 2025-05-21 10:08 | Observation (INO) | payer MEDICARE, SELFPAY ==
[2025-05-21] VITALS (7 sets, daily range): BP systolic 125–176; BP diastolic 43–78; PULSE 62–74; RESP 12–18; TEMP 36.4–37.4; O2SAT 94–99; BMI 31.0
--- NOTE | ~2025-05-21 | CT_ITS ---
EXAMINATION: CT ABDOMEN PELVIS WITH IV CONTRAST, CT CHEST WITH IV CONTRAST INDICATION: ? Pneumonia, chest wall infection. Flank pain urinary sx COMPARISON: Comparison is made with the prior chest CT dated 04/12/[address] of the abdomen and pelvis dated 11/11/2023. TECHNIQUE: CT scan of the chest, abdomen and pelvis was performed following administration of 85 mL Omnipaque 350 using standard departmental protocol. Coronal and sagittal reformatted images were generated and reviewed. Oral contrast material was not administered at the request of the referring physician. This CT exam was performed with one or more of the following dose reduction techniques: automated exposure control, adjustment of the mA and/or kV according to patient size, use of iterative reconstruction technique. DLP: 844 mGy-cm CHEST: THYROID: The thyroid is unremarkable. LUNGS: There are moderate emphysematous changes. Again seen is a suspicious 1.6 x 1.2 cm mass in the left upper lobe (series 7, image 42), highly suspicious for neoplasm. MEDIASTINUM: There is a 1.1 cm AP window lymph node. GERSON: There is no hilar lymphadenopathy. CARDIOVASCULATURE: The heart is enlarged. There is no pericardial effusion. An aortic valve prosthesis is noted. DEGREE OF CORONARY CALCIFICATION: severe, status post CABG. PLEURA: There is no pleural effusion. No pneumothorax. MAIN AIRWAYS: The mainstem bronchi and proximal branches are patent. AXILLA: There is no axillary lymphadenopathy. SOFT TISSUES: Unremarkable. BONES: The bones are intact. ABDOMEN: Images of the abdomen are degraded by patient motion. LIVER: The liver is normal in size and contour. No liver mass is identified. The hepatic and portal veins are patent. GALLBLADDER / BILE DUCTS: The gallbladder is unremarkable. There is no intra or extrahepatic biliary ductal dilatation. SPLEEN: The spleen is normal in size. No focal splenic lesion is identified. PANCREAS: The pancreas is atrophic. ADRENAL GLANDS: Within normal limits. KIDNEYS/RETROPERITONEUM: No renal calculi are identified. There is no hydronephrosis. No renal masses are identified. LYMPH NODES: No abdominal or pelvic lymphadenopathy. VASCULATURE: There is a rim calcified infrarenal abdominal aortic aneurysm measuring 3.3 cm in diameter. MESENTERY/PERITONEUM: No free fluid. No masses. There is no free intraperitoneal gas. STOMACH: The stomach is collapsed, limiting evaluation. SMALL BOWEL: The small bowel is normal in caliber. COLON: There is a moderate to large amount of stool throughout the colon. APPENDIX: The appendix is not seen, however no inflammatory changes are seen adjacent to the cecum. URINARY BLADDER/PELVIC ORGANS: The urinary bladder is unremarkable. The uterus is surgically absent. BONES / SOFT TISSUES: There is a small fat-containing umbilical hernia. The bones are intact. CT/CT abdomen pelvis w IV con IMPRESSION: 1. Again seen is a 1.6 x 1.2 cm left upper lobe mass, highly suspicious for neoplasm. 2. Large amount of stool throughout the colon. Electronically signed by: Alexey Vale MD 05/21/2025 01:05 PM EDT
--- NOTE | ~2025-05-21 | CT_ITS ---
EXAMINATION: CT HEAD WITHOUT IV CONTRAST HISTORY: ams. TECHNIQUE: Unenhanced helical CT of the head was performed per standard departmental protocol. Coronal and sagittal reformats of the head were also evaluated. One or more of the following techniques was used for dose reduction: Automated exposure control, adjustment of the mA and/or kV according to patient size, use of iterative reconstruction technique. DLP: 924 mGy-cm COMPARISON: Comparison is made with the prior examination dated 07/04/2024. FINDINGS: The examination is degraded by patient motion. BRAIN: There is diffuse prominence of the ventricular system and cortical sulci, consistent with atrophy. Periventricular and subcortical white matter hypodensities are noted which are nonspecific, but often seen in the setting of small vessel ischemic disease. There is no mass effect or midline shift. There is no definite evidence of intracranial hemorrhage, although evaluation is limited by the presence of intravenous contrast material from the recent prior CT of the chest, abdomen, and pelvis. SINUSES: The visualized paranasal sinuses are clear. The mastoid air cells and middle ear cavities are well pneumatized. ORBITS: The visualized orbits are unremarkable. BONES/SOFT TISSUES: The extracranial soft tissues are unremarkable. The calvarium is intact. No suspicious lytic or sclerotic lesions. CT/CT head/brain wo IV con IMPRESSION: No definite evidence of intracranial hemorrhage. Evaluation is somewhat limited by the presence of intravenous contrast from prior contrast enhanced CT of the chest, abdomen, and pelvis. Electronically signed by: Alexey Vale MD 05/21/2025 01:09 PM EDT
--- NOTE | 2025-05-21 10:19 | ECG_ITS ---
Test Reason : AMS Blood Pressure : */* mmHG Vent. Rate : 68 BPM Atrial Rate : 68 BPM P-R Int : 216 ms QRS Dur : 192 ms QT Int : 508 ms P-R-T Axes : 62 -21 100 degrees QTcB Int : 540 ms Atrial-sensed ventricular-paced rhythm with prolonged AV conduction Abnormal ECG When compared with ECG of 12-Apr-2025 07:21, Vent. rate has decreased by 15 bpm Referred By: Hardik Salinas Electronically Signed By: AMARI MONROY
--- NOTE | 2025-05-21 10:34 | ED.GENADULT ---
HPI - General Adult General Chief complaint: Altered Mental Status Stated complaint: AMS Time Seen by Provider: 05/21/25 10:26 Source: patient and EMS Mode of arrival: EMS Limitations: altered mental status History of Present Illness ED Provider: ALICIA Salinas HPI narrative: 80 yo f hx of CAD, CABG x 2 ( 2018 Dr. Fischer), aortic stenosis s/p TAVR and PPM for complete heart block ( 01/29/25) complicated by infection, moderate MR. PE on eliquis, HTN, HLD, DM II, stage IV lung cancer in remission Presents to the emergency department feeling Wonky times unclear amount of time. She reports she is just not feeling like herself she also reports she has been having hallucinations vague complaints of urinary frequency, urgency and incomplete voiding. Also reports flank pain. She goes on to tell me that a few weeks ago she was hospitalized, she has been having difficulties after a TAVR and reports she had an infection of some sort from the procedure. She is not sure why she is here exactly but tells me my kids made me come in . She is alert and oriented x4. She denies fevers, chills, nausea, vomiting, chest pain, palpitations, shortness of breath, lower extremity swelling, falls or trauma. No new medications. Related Data Home Medications ?Medication ?Instructions ?Recorded ?Confirmed cholecalciferol (vitamin D3) 50 50 mcg PO DAILY 10/26/20 05/09/25 mcg (2,000 unit) capsule verapamil 100 mg capsule 24hr 100 mg PO BEDTIME 10/26/20 05/09/[address],ext.release acetaminophen 500 mg tablet 500 mg PO BID 11/07/20 05/09/25 isosorbide mononitrate 30 mg 30 mg PO DAILY 10/02/21 05/09/25 tablet,extended release 24 hr apixaban 5 mg tablet (Eliquis) 1 tab PO Q12H 02/19/22 05/09/25 loperamide 2 mg capsule 2 mg PO TID PRN yes 03/30/24 05/09/25 Previous Rx's ?Medication ?Instructions ?Recorded clotrimazole 2 % vaginal cream 1 appful vaginal BEDTIME PRN 10/31/21 VAGINAL ITCH #21 grams Donut pillow #1 ea 08/07/22 cetirizine 10 mg capsule (Zyrtec) 10 mg PO DAILY #30 caps 08/22/22 flash glucose scanning reader #1 ea 11/11/22 (FreeStyle [place] 2 [place]) clotrimazole-betamethasone 1 1 appl topical BID 10 days #45 01/17/23 %-0.05 % topical cream grams azelastine 137 mcg (0.1 %) nasal 2 spray intranasal BID PRN 03/15/24 spray postnasal drip #90 mL omeprazole 40 mg capsule,delayed 40 mg PO DAILY 90 days #90 caps 06/22/24 release meloxicam 7.5 mg tablet 7.5 mg PO DAILY #7 tabs 07/05/24 metoprolol succinate 50 mg 100 mg (2 x 50 mg) PO BEDTIME #180 10/30/24 tablet,extended release 24 hr tabs pen needle, diabetic 29 gauge x #100 ea 12/11/24 1/2 (BD Ultra-Fine Original Pen Needle) folic acid 1 mg tablet 1 mg PO DAILY 90 days #90 tabs 12/14/24 Lantus Solostar U-100 Insulin 100 14 unit (0.14 mL) subcut QAM #30 mL 01/20/25 unit/mL (3 mL) subcutaneous pen (insulin glargine) insulin lispro 100 unit/mL 1 sliding scale dose subcut 01/20/25 subcutaneous half-unit pen USEASDIRECTD #15 mL (Humalog Panda KwikPen (U-100)) hyoscyamine sulfate 0.125 mg tablet 0.125 mg PO BID PRN for 01/26/25 indigestion #60 tabs flash glucose sensor (FreeStyle #6 ea 02/10/25 [place] 2 Sensor kit) FreeStyle [place] 3 Plus Sensor #6 ea 02/17/25 (blood-glucose sensor) FreeStyle [place] 3 [place] #1 ea 02/17/25 (blood-glucose,helper electrical,cont) OneTouch Delica Plus Lancet 33 #300 ea 02/26/25 gauge (lancets) OneTouch Ultra Test (blood sugar #300 ea 02/26/25 diagnostic) OneTouch Ultra2 Meter #1 ea 02/26/25 (blood-glucose meter) pen needle, diabetic 32 gauge x #100 ea 02/26/25 oxycodone 10 mg tablet 10 mg PO Q6-8H PRN Severe Pain 03/09/25 (Scale Score 7-10) #90 tabs lisinopril 2.5 mg tablet 2.5 mg PO DAILY #90 tabs 03/10/25 acarbose 25 mg tablet 25 mg PO DAILY #90 tabs 03/24/25 metformin 1,000 mg tablet 1,000 mg PO BID #180 tabs 03/24/25 pen needle, diabetic 32 gauge x #400 ea 03/24/25 (CareTouch Pen Needle) atorvastatin 80 mg tablet 80 mg PO BEDTIME #90 tabs 03/26/25 sertraline 100 mg tablet (Zoloft) 150 mg (1.5 x 100 mg) PO DAILY 3 03/26/25 months #135 tabs qunqsl-cjoparnu-pmvpjop 1 cap PO TID 30 days #90 caps 04/26/25 10,000-32,000-42,000 unit capsule,delayed rel (Zenpep) buspirone 5 mg tablet 5 mg PO TID #90 tabs 05/03/25 ferrous fumarate 325 mg (106 mg 325 mg PO DAILY #90 tabs 05/03/25 iron) tablet lorazepam 0.5 mg tablet 0.5 mg PO .qd PRN anxiety attack 05/03/25 #30 tabs ondansetron 4 mg disintegrating 4 mg PO Q8H PRN nausea and 05/03/25 tablet vomiting 30 days #30 tabs pramipexole 1 mg tablet 1 mg PO BEDTIME #30 tabs 05/03/25 Allergies Allergy/AdvReac Type Severity Reaction Status Date / Time sulfamethoxazole (From Allergy Severe Rash Verified 05/21/25 10:24 Bactrim) adhesive tape (ADHESIVE TAPE) Allergy Intermediate BLISTERS Verified 05/21/25 10:24 clonidine Allergy makes pt Verified 05/21/25 10:24 hulusinate adhesive AdvReac Severe BLISTERS Verified 05/21/25 10:24 gabapentin AdvReac Severe hallucinati Verified 05/21/25 10:24 on hydromorphone (From Dilaudid) AdvReac Severe Hallucinati Verified 05/21/25 10:24 ons morphine AdvReac Severe hallucinati Verified 05/21/25 10:24 on glue AdvReac Severe BLISTERS Uncoded 05/21/25 10:24 Review of Systems Review of Systems: Yes all other systems are reviewed and are negative [facility] Past Medical History Attestation statement: The following information was validated with the patient. Source: old records reviewed and nursing notes reviewed Medical History Depression with anxiety Hx of aortic valve stenosis Depression Diabetes mellitus with hyperglycemia, with long-term current use of insulin Swelling of knee joint, left Hx of sigmoidoscopy Metformin adverse reaction Adenocarcinoma of left lung (~2021) Aortic stenosis Atypical migraine Transient cerebral ischemia AVM (arteriovenous malformation) of colon Normocytic anemia Nonrheumatic mitral valve regurgitation Nonrheumatic aortic (valve) stenosis Obesity History of blood transfusion Barretts esophagus AAA (abdominal aortic aneurysm) (~2008) Bleeding hemorrhoids Anemia Arthritis On anticoagulant therapy (~10/2020) On beta [place] at home Pulmonary nodules Mixed dyslipidemia Vitamin B12 deficiency GIB (gastrointestinal bleeding) COPD (chronic obstructive pulmonary disease) Bilateral pulmonary embolism (~10/2020) Restless leg syndrome Irritable bowel syndrome with both constipation and diarrhea GERD without esophagitis CAD (coronary artery disease) Essential hypertension Surgical History S/P TAVR (transcatheter aortic valve replacement) History of lung biopsy (~2021) History of esophagogastroduodenoscopy (EGD) (~2020) History of hysterectomy History of colonoscopy (~2018) History of coronary artery bypass graft x 2 (~2017) History of total right knee replacement (TKR) (~2015) History of bilateral breast reduction surgery (~2010) S/P excision of lipoma (~2017) History of heart artery stent (~2007) Family History Family History Father HTN (hypertension) Myocardial infarction Hyperlipidemia Abdominal aneurysm Mother HTN (hypertension) Myocardial infarction Hyperlipidemia Brother Alzheimer's disease Substance abuse Sister Rheumatoid arthritis Brother Rheumatoid arthritis Maternal Aunt Diabetes mellitus Lung cancer Maternal Uncle Diabetes mellitus Son No problems noted. Daughter No problems noted. Social History Social History Household Members: Spouse Housing: House Do you presently have visiting nurse or other home services: No Alcohol intake: current Alcohol intake frequency: does not drink Patient Tobacco Use Status: Former Tobacco user Tobacco use type: Cigarette Cigarette Packs Per Day: 2 Years Smoked: 30 Smoked in Last 30 Days: No e-Cigarette/Vaping Use: Never Used Second Hand Smoke Exposure: No Use of substances other than those prescribed or required for medical reasons: No Substance Use Type: Marijuana Advance Directives: Yes Advance Directives on File: Yes Advance Directives Date on File: 04/27/22 Do you have a plan to hurt others: No Plan service: No Current occupational status: retired 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 Oriented X3. No acute distress. ? No accessory muscle use Head: Normal external exam. Normocephalic. Atraumatic. ? Eyes: PERRLA. EOMI. Conjunctiva and sclera normal. Eyelids normal. ? ENT: Pharynx normal. Uvula midline. Moist mucous membranes. ? No trismus noted.? No drooling noted.? No muffled voice noted. Neck: ?Soft full range of motion, no JVD CVS: ?Heart regular rate and rhythm no murmurs and rubs Respiratory: ?Breath sounds are clear to auscultation bilaterally. No wheezing or stridor.? No accessory muscle use noted. Abdomen: ?Soft nontender no rebound or guarding positive bowel sounds Skin: Skin warm and dry.? Normal skin color.? Normal skin turgor. No rashes/lesions/lacerations noted. + mild erythema to left anterior chest wall incision Extremities: No lower extremity edema. ? Extremities exhibit normal range of motion.? Extremities nontender. Neuro: Oriented X 3.? No motor deficit.? No sensory deficit.? Reflexes normal Vital Signs: Vital Signs - 24 hr 05/21/25 10:28 05/21/25 11:28 05/21/25 12:05 Temperature 99.3 F 98.9 F Pulse Rate 71 Respiratory Rate 14 Blood Pressure 125/53 L 154/58 H Pulse Oximetry 95 Oxygen Delivery Method Room Air BMI result Body Mass Index 31.0 vss Course Reevaluation(s) Reevaluation #1: Consent was obtained for me to look at her records at [facility]. Patient was hospitalized about a month ago w/ palpitations, and w/ complications after pacer placement. Notes state Developed PPM pocke infection and untimately Metronic PPM was removed and pt recived Abott leadless PPM 3 weeks back. . She had episodes of atrial tachicardia back when she was hospitalized in April 2025 and her Meotprolol dose was increased to 150 mg po daily. Patient denied med changes to me but reported to nursing that she recently was started on new meds for restless leg syndrome. With this being known a med change could also be a cause for new hallucinations Time: 10:58 Reevaluation #2: CBC unremarkable. Chemistry with no acute findings needing intervention. Lactic acid normal. blood cultures pending. Troponin negative, EKG nonischemic. UA without infection. CT scans pending also added a CT of head due to altered mental status. Time: 11:50 Reevaluation #3: CT head and brain no definite evidence of intracranial hemorrhage limited evaluation due to IV contrast from prior contrast studies. No focal neuro deficits on exam low suspicion for this. CT abdomen pelvis with large amounts of stool throughout the colon. Again seen is 1.6 x 1.2 cm left upper lobe mass. Concerning for neoplasm. Will add this to patient's discharge diagnosis and inform patient of this. Plan at this time admission to the hospital for encephalopathy. Time: 13:18 Medications Administered Discontinued Medications Generic Name Dose Route Start Last Admin Trade Name Codyq PRN Reason Stop Dose Admin Diphenhydramine HCl 25 mg 05/21/25 11:49 05/21/25 12:40 Diphenhydramine Hcl 25 Mg Capsule PO 05/21/25 11:50 Not Given ONCE ONE Piperacillin Sod/Tazobactam 50 mls @ 100 mls/hr 05/21/25 10:53 05/21/25 12:07 Sod 3.375 gm/ Sodium Chloride IV 05/21/25 11:22 Infused ONCE ONE Infusion Sodium Chloride 2,163.63 mls @ 2,163.63 mls/hr 05/21/25 10:54 05/21/25 12:54 Ns 30 ml/kg infuse over 1 hr (2163.63 ml) 05/21/25 11:53 Infused IV Infusion .Q1H STA Iohexol 85 ml 05/21/25 12:10 05/21/25 12:11 Iohexol 350 Mg/Ml 100 Ml Infus..Btl IV 05/21/25 12:11 85 ml ONCE ONE Administration Medical Decision Making Medical Decision Making [facility] Narrative: 1054 80 year old female presents w/ AMS, urinary sx X unclear amount of time. Recent pace maker placement complicated by infection. Poor historian PE mild erythema to left anterior chest wall incision. A & O X4. NO abdominal tenderness on palpation Hx and PE concerning for possible chest wall cellulites less likely abscess. Will rule out UTI and pyelo. Will also rule out metabolic derangments. Plan- labs, imaging, urine, atbx, fluids At this time infection suspected. Differential Diagnosis Differential Diagnoses: The differential diagnosis associated with the presentation includes Admission/Observation Consideration of admission/observation: Escalation of care including admission/observation considered Consult Healthcare Provider Management of the patient was discussed with: Hospitalist and Public Services Librarian Lab Data [facility] Lab Attestation statement: I reviewed the patient's lab results. 05/21/25 10:41 05/21/25 10:41 Labs: Lab Results 05/21/25 05/21/25 Range/Units 10:41 11:13 WBC 6.2 (4.8-10.8) X10*3/uL RBC 3.18 L (4.20-5.50) X10*6/uL Hgb 9.9 L (12.0-16.0) g/dl Hct 30.9 L (37.0-47.0) % MCV 97.2 (80.0-98.0) fL MCH 31.1 (27.0-33.0) pg MCHC 32.0 (31.0-35.0) g/dl RDW 13.5 (11.0-16.0) % Plt Count 210 (160-400) X10*3/uL MPV 10.5 (9.4-12.3) fL Immature Gran % (Auto) 0.2 (0.0-0.4) % Neut % (Auto) 70.4 (45-73) % Lymph % (Auto) 17.9 L (20-40) % [place] % (Auto) 9.7 (2-11) % Eos % (Auto) 1.6 (0-4) % Baso % (Auto) 0.2 (0-2) % Lymph # (Auto) 1.1 L (1.2-4.9) X10*3/uL [place] # (Auto) 0.6 (0.1-1.2) X10*3/uL Eos # (Auto) 0.1 (0.0-0.4) X10*3/uL Baso # (Auto) 0.0 (0.0-0.2) X10*3/uL Abs Immat Gran (auto) 0.01 (0.00-0.03) X10*3/uL Absolute Neuts (auto) 4.4 (2.0-8.3) x10*3/uL Absolute Nucleated RBC 0.000 (0.0-0.012) X10*3/uL Nucleated RBC % (auto) 0.0 (0.0-0.2) /100WBC PT 12.6 H (10.9-12.4) SEC INR 1.1 (0.9-1.1) Sodium 140 (135-145) mmol/L Potassium 4.6 (3.3-5.1) mmol/L Chloride 104 (96-108) mmol/L Carbon Dioxide 26 (22-29) mmol/L Anion Gap 15 (12-20) BUN 21 H (9-16) mg/dL Creatinine 0.81 (0.5-1.4) mg/dL Estim Creat Clear Calc 50.7 Estimated GFR > 60 Random Glucose 191 H (60-115) mg/dL Lactic Acid 1.4 (0.5-2.0) mmol/L Calcium 9.5 (8.4-10.2) mg/dL Magnesium 1.6 (1.6-2.6) mg/dL Total Bilirubin 0.2 (0.0-1.0) mg/dL AST 29 (5-31) U/L ALT 18 (0-31) U/L Alkaline Phosphatase 49 (39-117) U/L Troponin I High Sens 7.8 (<3.5-17.0) ng/L C-Reactive Protein < 0.10 (< or = 0.50) mg/dL Total Protein 7.3 (6.5-8.0) g/dL Albumin 4.2 (3.5-5.0) g/dL Urine Color Yellow Urine Appearance Clear Urine pH 8.5 (5.0-9.0) Ur Specific [place] 1.010 (1.005-1.025) Urine Protein Negative (Neg-Trace) mg/dL Urine Glucose (UA) Negative (Negative) mg/dL Urine Ketones Negative (Negative) mg/dL Urine Blood Negative (Negative) Urine Nitrite Negative (Negative) Ur Leukocyte Esterase Negative (Negative) Independent Interpretation I performed an independent interpretation of an: EKG (Atrial-sensed ventricular-paced rhythm with prolonged AV conduction Abnormal ECG When compared with ECG of 12-Apr-2025 07:21, Vent. rate has decreased by 15 bpm ) and CT Scan Radiology Impression Discussion of test interpretation with radiology: I have reviewed the radiologist's reading. Independent Historian Clinical information obtained from an independent historian. History obtained from or confirmed by: EMS External Record Review External record reviewed: Inpatient record, Office record, Outpatient record, Prior outpatient labs, Prior outpatient radiology, Primary care record and Outside ED record Prescription Management I considered prescription management with: Antibiotic Chronic Conditions Patient?s care impacted by: Diabetes, Hypertension and Other (see hpi ) Critical Care Time Critical Care Time Critical Care Time: Yes Total Critical Care Time: 45 Attestation: I attest to this time spent taking care of the patient, obtaining history, physical, reviewing labs, imaging, speaking to my attending and or speaking to specialist. Or preforming a procedure Discharge Plan Discharge Clinical Impression: Hallucinations, Dysuria, Encephalopathy, Mass of upper lobe of left lung Patient Disposition: Admitted As Inpatient Print Language: Tongan
[2025-05-21 10:46] LABS: MANUAL DIFF FLAG NO
[2025-05-21 10:56] LABS: Hematocrit 30.9 % (37.0-47.0); Hemoglobin 9.9 g/dl (12.0-16.0); Imm Gran Abs Auto 0.01 X10*3/uL (0.00-0.03); Imm Gran Pct Auto 0.2 % (0.0-0.4); Lymphocytes Absolute Auto 1.1 X10*3/uL (1.2-4.9); Mean Corpuscular HGB Conc 32.0 g/dl (31.0-35.0); Mean Corpuscular Hemoglobin 31.1 pg (27.0-33.0); Mean Corpuscular Volume 97.2 fL (80.0-98.0); NRBC Abs Auto 0.000 X10*3/uL (0.0-0.012); NRBC Pct Auto 0.0 /100WBC (0.0-0.2); Platelet Count 210 X10*3/uL (160-400); Red Blood Count 3.18 X10*6/uL (4.20-5.50); White Blood Count 6.2 X10*3/uL (4.8-10.8)
--- OUTSIDE RECORDS SUMMARY | 2025-05-21 11:00 | XMS_ITS | Referral Summary ---
Author Organization [facility] Address [address] [place] [address] Care Team Providers Care Cosmetology Educator Name Role Phone Sary Waite MD Primary [...] 137 mcg (0.1 %) nasal spray SMARTSI [place](s) Both Nares Twice Daily PRN 4 [...] of [place] [id number] [facility] Care Teams Cosmetology Educator Relationship Specialty Start Date End Date Sary Waite MD [address] [place] [address] PCP - General Internal Medicine 11/18/24
--- OUTSIDE RECORDS SUMMARY | 2025-05-21 11:01 | XMS_ITS | Clinical Summary ---
Author Organization [facility] Facility Address [address] [address] Care Team Providers Care Flight/Transport Nurse Name Role Phone Elayne Waite MD Primary Care Provider [phone] Allergies Active Allergy Reactions Criticality Noted Date [...] Health Medicare [facility] Medicare Care Teams Flight/Transport Nurse Relationship Specialty Start Date End Date Elayne Waite MD [address] [place] [address] PCP - General Internal Medicine 02/26/22
--- OUTSIDE RECORDS SUMMARY | 2025-05-21 11:01 | XMS_ITS | Clinical Summary ---
Author Organization Patient Business Ser [facility] Address [address] [place] [address] Care Team Providers Care Yield Clerk Name Role Phone Sary Waite MD Primary Care Provider Allergies Active Allergy Reactions Criticality Noted Date Comments Adhesive Tape-Silicones 11/15/2020 Tape Clonidine 09/06/2021 Hydromorphone Hallucinations 04/07/2025 Gabapentin 11/16/2024 Morphine 11/16/2024 Other 11/15/2020 Bactrim [Na Benzoate-sulfamethoxazo le-trimethoprim] Sulfamethoxazole 11/16/2024 Trimethoprim 11/16/2024 Medications acetaminophen (TYLENOL) 500 mg capsule 500 mg 2 times daily. 8 Active aspirin 81 mg EC tablet Take 1 Tablet by mouth daily. Active cetirizine HCl (ZYRTEC ORAL) Cetirizine HCl (ZYRTEC ALLERGY OR) Take by mouth as needed Active cholecalciferol (VITAMIN D-3) 50 mcg (2,000 unit) capsule Take 1 capsule (2,000 Units total) by mouth 1 (one) time each day. Active clotrimazole (GYNE-LOTRIMIN 3 DAY) 2 % vaginal cream as needed. 9 Active FERROUS FUMARATE ORAL Take 325 mg by mouth every other day. Active folic acid (FOLVITE) 1 mg tablet Take 1 mg by mouth daily. Active insulin glargine (LANTUS) 100 unit/mL injection 16 Units 1 (one) time each day in the morning. Active insulin lispro 100 unit/mL injection Sliding scale Active lisinopriL (PRINIVIL,ZESTRI L) 2.5 mg tablet Take 1 tablet (2.5 mg total) by mouth 1 (one) time each day. Active LORazepam (ATIVAN) 0.5 mg tablet Take 1 Tablet by mouth 2 times daily as needed. Active omeprazole (PriLOSEC) [address] capsule [...] Take 50 mcg by mouth daily. Active isosorbide mononitrate (IMDUR) 30 mg 24 hr tablet TAKE 1 TABLET BY MOUTH DAILY 90 tablet 3 5 Active hyoscyamine (ANASPAZ,LEVSIN) 0.125 mg tablet Take 1 tablet (0.125 mg total) by mouth 2 (two) times a day. Active lipase-protease- amylase (Zenpep) 3,000-10,000 -14,000-unit capsule,delayed release(DR/EC) Take 3 tablets by mouth 1 (one) time each day. Active atorvastatin (LIPITOR) 80 mg tablet Take 1 tablet (80 mg total) by mouth at bedtime. Active apixaban (ELIQUIS) 5 mg tablet Take 1 tablet (5 mg total) by mouth 2 (two) times a day. Active azelastine-fluti casone 137-50 mcg/spray spray,non-aeroso l Administer 1 spray into affected nostril(s) 1 (one) time each day. Active dilTIAZem CD (CARDIZEM CD) 240 mg 24 hr capsuleIndicatio ns:Essential hypertension,Cor onary artery disease involving [place] coronary artery of [place] heart without angina pectoris Take 1 capsule (240 mg total) by mouth 1 (one) time each day. 90 each 3 5 02/18/20 26 Active metoprolol succinate (TOPROL-XL) 50 mg 24 hr tabletIndication s:Essential hypertension,Cor onary artery disease involving [place] coronary artery of [place] heart without angina pectoris Take 1 tablet (50 mg total) by mouth 1 (one) time each day. Do not crush or chew. 90 tablet 3 5 02/18/20 26 Active metFORMIN (FORTAMET) 1,000 mg 24 hr tablet Take 1 tablet (1,000 mg total) by mouth 2 (two) times a day. Do not crush, chew, or split. 5 Active acarbose (PRECOSE) 25 mg tablet Take 1 tablet (25 mg total) by mouth 1 (one) time each day after dinner. 5 Active pramipexole (MIRAPEX) 0.5 mg tablet Take 1 tablet (0.5 mg total) by mouth 3 (three) times a day. 30 each 2 5 04/12/20 26 Active doxycycline (Doxy-100) 100 mg injection Infuse 100 mg into a venous catheter every 12 (twelve) hours for 10 days. 20 each 5 04/25/20 25 Active Problems Problem Noted Date Diagnosed Date Anemia 04/09/2025 Pacemaker 02/17/2025 Overview (04/12/2025): January 2025 - Medtronic dual-chamber left bundle area pacemaker by Dr. Tenorio due to complete heart block following TAVR February 2025 - pocket infection with pocket revision and debridement with placement of Tyrex pouch and device removal March 2025 - placement of leadless pacemaker with complication of asystole post procedure requiring brief CPR and anemia requiring transfusion Assessment & Plan (04/12/2025 3:07 PM EDT): Patient reports pain in her chest wall following chest compressions. I have provided her with a two weeks script for oxycodone for the pain due to CPR. Follow up with Dr. Tenorio next week. Continue to monitor through [facility]. Assessment & Plan (02/17/2025 11:53 AM EDT): Patient reports pain at the incision site. Noted to have erythema, slight drainage and incomplete wound closure. Likely mild infection. Will start clindamycin course with device and wound follow-up next week. Continue to monitor through [facility]. Orders: clindamycin (Cleocin HCL) 300 mg capsule; Take 1 capsule (300 mg total) by mouth 4 (four) times a day for 7 days. History of lung cancer 02/17/2025 Overview (02/17/2025): January 2022 pulmonary nodule suspicious for lung carcinoma underwent radiation and chemotherapy CAD (coronary artery disease) 02/15/2025 Overview (02/17/2025): 2004 angiogram with multivessel stenting 2007 repeat angiogram and stenting of left circumflex artery in 2007. June 2018 she presented with chest pain to [facility] and urgent angiogram showed multivessel disease status post two vessel CABG with DURHAM to LAD and SVG to OM1; complicated by difficult vein harvesting with subsequent leg wounds 2021 - preTAVR angiogram showing progressive disease with new ASSEMBLER CARDS AND ANNOUNCEMENTS of dominant RCA Assessment & Plan (04/12/2025 3:07 PM EDT): Catheterization from 2021 showed patent grafts with known ASSEMBLER CARDS AND ANNOUNCEMENTS of RCA. Echocardiogram from November 2024 showed systolic function is normal with an ejection fraction of 60-65% with basal to mid segments of the inferior wall appearing to be hypokinetic. No anginal symptoms. Continue with aspirin, apixaban, atorvastatin, metoprolol, diltiazem, isosorbide and lisinopril. We discussed risk reduction through lifestyle choices including healthy diet, routine exercise and weight management. Assessment & Plan (03/26/2025 3:24 PM EDT): Assessment & Plan (02/17/2025 11:53 AM EDT): Catheterization from 2021 showed patent grafts with known ASSEMBLER CARDS AND ANNOUNCEMENTS of RCA. Echocardiogram from November 2024 showed systolic function is normal with an ejection fraction of 60-65% with basal to mid segments of the inferior wall appearing to be hypokinetic. No anginal symptoms. Continue with aspirin, apixaban, atorvastatin, metoprolol, isosorbide and lisinopril. Will switch metoprolol to once daily and increase strength of tablet to 50 mg as well as switch verapamil to diltiazem (due to cost). We discussed risk reduction through lifestyle choices including healthy diet, routine exercise and weight management. Orders: dilTIAZem CD (CARDIZEM CD) 240 mg 24 hr capsule; Take 1 capsule (240 mg total) by mouth 1 (one) time each day. metoprolol succinate (TOPROL-XL) 50 mg 24 hr tablet; Take 1 tablet (50 mg total) by mouth 1 (one) time each day. Do not crush or chew. Complete heart block ([facility] V24, [facility] V28) 02/15/2025 Assessment & Plan (03/26/2025 3:24 PM EDT): Chest pain 02/08/2023 COPD (chronic obstructive pu lmonary disease) ([facility] V24, [facility] V28) 01/26/2022 Mixed hyperlipidemia 01/26/2022 Assessment & Plan (04/12/2025 3:07 PM EDT): Continue with atorvastatin. Orders: ECG 12 lead Assessment & Plan (02/17/2025 11:53 AM EDT): Continue with atorvastatin. Obesity 01/26/2022 Type 2 diabetes mellitus wit hout complications ([facility] V24, [facility] V28) 01/26/2022 Overview (11/16/2024): w/o mcfp current use of insulin Pain of right lower extremity 09/29/2021 Abdominal aortic aneurysm (A AA) without rupture ([facility] V24) 03/14/2021 Primary hypertension 03/14/2021 Assessment & Plan (04/12/2025 3:07 PM EDT): Elevated today. Continue with metoprolol, isosorbide, diltiazem, lisinopril. Suspect this is related to pain, poor sleep and anxiety. I have asked she continue to monitor her readings. Will need to uptitrate based on blood pressure. Assessment & Plan (02/17/2025 11:53 AM EDT): Elevated today. Continue with metoprolol, isosorbide, lisinopril. Will switch verapamil to diltiazem due to cost. Will need to uptitrate based on blood pressure. Orders: dilTIAZem CD (CARDIZEM CD) 240 mg 24 hr capsule; Take 1 capsule (240 mg total) by mouth 1 (one) time each day. metoprolol succinate (TOPROL-XL) 50 mg 24 hr tablet; Take 1 tablet (50 mg total) by mouth 1 (one) time each day. Do not crush or chew. Nonrheumatic mitral valve regurgitation 03/14/20 21 Single subsegmental pulmonar y embolism without acute cor pulmonale (CMS/HCC V24, CMS/HCC V28) 03/14/2021 S/P TAVR (transcatheter aortic valve replacement ) 03/14/2021 Overview (04/12/2025): January 28, 2025 successful transfemoral transcatheter aortic valve replacement utilizing a Medtronic evolute 29 mm valve via the femoral approach by Dr. Humphries at [facility]; procedure complicated by complete heart block with junctional escape rhythm as well as bifascicular block with temporary pacemaker and ultimate placement of a Medtronic dual-chamber left bundle area pacemaker by Dr. Tenorio; discharged on aspirin and apixaban therapy 04/07/25 TRANSTHORACIC ECHOCARDIOGRAM (TTE) COMPLETE (CONTRAST/BUBBLE/3D PRN) 04/08/2025 04/08/2025 Interpretation Summary Left ventricle cavity size is normal. There is mild, concentric left ventricular hypertrophy with sigmoid septum-a benign variant. No regional LV wall motion abnormalities noted. Paradoxic septal motion is noted in keeping with paced rhythm most likely. Ejection fraction is estimated at 60 to 65%. Right ventricle cavity is normal. Right ventricular systolic function is normal. A TAVR bioprosthetic aortic valve is present. Prosthetic valve appears to be functioning normally with a gradient within the expected range. A catheter tip is seen at the base of the right atrium. No clear evidence of pericardial effusion. Staff message sent to Dr Tenorio and Dave. Signed by: Precious Hoskins MD on 04/08/2025 3:13 PM Assessment & Plan (04/12/2025 3:07 PM EDT): Successful TAVR using 29mm Evolute Bioprosthetic valve on 01/28/25. She had complete heart block and underwent implantation of a dual-chamber pacemaker which was further complicated by pocket infection, pocket revision and then leadless pacemaker implant. The patient is having symptomatic improvement following her TAVR. Her valve is working well on exam, by recent echocardiogram and by symptoms. Instructed her about the need for prophylactic antibiotics prior to dental work, but she has dentures. Continue with aspirin. Orders: ECG 12 lead Assessment & Plan (02/17/2025 11:53 AM EDT): Successful TAVR using 29mm Evolute Bioprosthetic valve on 01/28/25. She had complete heart block and underwent implantation of a dual-chamber pacemaker. The patient is having symptomatic improvement following her TAVR. Her valve is working well on exam and by symptoms. Instructed her about the need for prophylactic antibiotics prior to dental work, but she has dentures. She is scheduled for a one month TAVR echocardiogram and then one month TAVR follow up. Assessment & Plan (02/17/2025 11:29 AM EDT): >>ASSESSMENT AND PLAN FOR NONRHEUMATIC AORTIC VALVE STENOSIS WRITTEN ON 11/24/2024 1:54 PM BY CARLOS HOLDEN MD The patient has had progressive aortic stenosis [...] 3D order panel; Future Assessment & Plan (02/17/2025 11:29 AM EDT): >>ASSESSMENT AND PLAN FOR NONRHEUMATIC AORTIC VALVE STENOSIS WRITTEN ON 12/21/2024 1:59 PM BY SANDRO HUMPHRIES MD Dot has evidence of progressive aortic stenosis with [...] then plan to schedule the TAVR procedure. Resolved Problems Problem Noted Date Diagnosed Date Resolved Date Cardiac arrest (CMS/[facility] V24, CMS/[facility] V28) 04/07/2025 04/09/2025 Infection of pacemaker pocket ([facility] V24) 02/25/2025 04/09/2025 Encounters Date Type Department Care Team Description 05/12/2025 7:30 PM EDT Ancillary Procedure [facility] - [address] [place] [address] 04/29/2025 1:00 PM EDT Ancillary Procedure [facility] - [address] [place] [address] 04/22/2025 3:10 PM EDT Office Visit [facility] - [address] [place] [address] Steffi Palacios, ZAC Infection of pacemaker pocket, sequela (Primary Dx) 04/15/2025 11:10 AM EDT Office Visit [facility] Card[facility] - [address] [place] [address] Steffi Palacios NP Pacemaker (Primary Dx) 04/12/2025 1:40 PM EDT Office Visit [facility] [address] [place] [address] Armando Bentley NP S/P TAVR (transcatheter aortic valve replacement) (Primary Dx); Coronary artery disease involving [place] coronary artery of [place] heart without angina pectoris; Pacemaker; Primary hypertension; Mixed hyperlipidemia 04/07/2025 12:35 PM EDT Anesthesia Event [facility] [address] [place] [phone] Pablo Gutierrez MD 04/07/2025 11:00 AM EDT - 04/07/2025 12:00 PM EDT Surgery [facility] [address] [place] [address] Devyn Tenorio MD Insert temporary pacemaker 04/07/2025 10:20 AM EDT - 04/09/2025 4:08 PM EDT Hospital Encounter [facility] [address] [place] [phone] Devyn Tenorio MD Japaridze, Anna, MD Seralathan, Manikandan, MD Pericardial effusion after operative procedure (Primary Dx); Infection of pacemaker pocket, sequela; Cardiac arrest (CMS/HCC V24, CMS/HCC V28) Discharge Disposition: Home-Health Care [facility] 04/07/2025 [address]phone [facility] [address] [place] [address] Armando Bentley NP Post Tavr Labs 03/30/2025 10:00 AM EDT Clinical Support [facility] - [address] [place] [address] 03/30/2025 Telephone [facility] - [address] [place] [address] Devyn Tenorio MD Procedure (Leadless Pacemaker w/ Pacemaker Removal ..25) 03/29/2025 11:30 AM EDT Ancillary Procedure [facility] - [address] [place] [address] Nonrheumatic aortic valve stenosis 03/26/2025 1:00 PM EDT Office Visit [facility] - [address] [place] [address] Devyn Tenorio MD Coronary artery disease involving [place] coronary artery of [place] heart without angina pectoris (Primary Dx); Complete heart block (CMS/HCC V24, CMS/HCC V28); History of transcatheter aortic valve replacement (TAVR); Primary hypertension 03/24/2025 Telephone [facility] - [address] [place] [address] Hilary Bartholomew PA 03/23/2025 2:30 PM EDT Ancillary Procedure [facility] - [address] [place] [address] 03/18/2025 3:00 PM EDT Clinical Support [facility] - [address] [place] [address] Encounter for adjustment or management of cardiac device 03/04/2025 Telephone [facility] - [address] [place] [phone] Devyn Tenorio MD 03/03/2025 1:30 PM EDT - 03/03/2025 2:30 PM EDT Surgery [facility] [address] [place] [address] Devyn Tenorio MD Pocket revision [37753 (CPT )] 03/03/2025 11:43 AM EDT - 03/03/2025 4:44 PM EDT Hospital Encounter [facility] [address] [place] [phone] Devyn Tenorio MD Infection of pacemaker pocket ([facility] V24); Pacemaker Discharge Disposition: Home or Self Care 02/25/2025 Telephone [facility] - [address] [place] [address] Devyn Tenorio MD Procedure (Pocket Revision 5.21.25) 02/24/2025 3:00 PM EDT Ancillary Procedure [facility] - [address] [facility] [address] [place] [phone] Encounter for adjustment or management of cardiac device from Last 3 Months Surgical History Surgery Date Site/Laterality Comments OTHER SURGICAL HISTORY Bilateral PROCEDURE: HISTORY OTHER; COMMENT: breast reduction surgey COLONOSCOPY PROCEDURE: HISTORICAL COLONOSCOPY CORONARY ARTERY BYPASS GRAFT 2017 PROCEDURE: HISTORICAL CABG; COMMENT: x 2 OTHER SURGICAL HISTORY PROCEDURE: MS EGD PARTIAL/COMPL ESOPHAGOGASTRIC FUNDOPLASTY OTHER SURGICAL HISTORY PROCEDURE: HISTORY OTHER; COMMENT: Heart Artery Stent HYSTERECTOMY PROCEDURE: HISTORICAL HYSTERECTOMY TOTAL KNEE ARTHROPLASTY PROCEDURE: MS ARTHRP KNE CONDYLE&PLATU MEDIAL&LAT COMPARTMENTS LIPOMA RESECTION PROCEDURE: SKIN TISSUE EXCISION(LIPOMA) OTHER SURGICAL HISTORY TAVR DONE AT [facility] ON 01/28/25 w/KM. INDICATIONS: Aortic stenosis ABLATION DONE AT [facility] ON 01/29/25 w/SR. INDICATIONS: Complete Heart Block with Non Reversible, Symptomatic Bradycardia Medical History Medical History Date Comments Anemia DX:Anemia Arthritis DX:Arthritis Atypical migraine DX:Atypical mi graine AVM (arteriovenous malformation) of colon DX:AVM (arteriovenous malformation) of colon Barretts esophagus DX:Barretts e sophagus Bleeding hemorrhoids DX:Bleeding hemorrhoids COPD (chronic obstructive pu lmonary disease) ([facility] V24, [facility] V28) DX:COPD (chronic o bstructive pulmonary disease) ([facility]) Depression DX:Depression GERD (gastroesophageal reflux disease) DX:GERD (gastroesophageal reflux disease) GIB (gastrointestinal bleeding) DX:GIB (gastrointestinal bleeding) History of blood transfusion DX: History of blood transfusion IBS (irritable bowel syndrome) D X:IBS (irritable bowel syndrome); COMMENT: w/ both constipation and diarrhea Major depression in full rem ission ([facility] V24) DX:Major depression in full remission ([facility]) Obesity DX:Obesity Restless leg syndrome DX:Restles s leg syndrome Transient cerebral ischemia DX:T ransient cerebral ischemia Type 2 diabetes mellitus wit hout complications ([facility] V24, [facility] V28) DX:Type 2 bo betes mellitus without complications ([facility]); COMMENT: w/o mcfp current use of insulin Adenocarcinoma of left lung ([facility] V24, [facility] V28) DX:Adenocarcinoma of left marce ng ([facility]) Anxiety and depression Hypertension Hyperlipidemia H/O: lung cancer Hx of pulmonary embolus Family History Medical History Relation Name Comments [...] Not Answered Alcohol Use Standard Drinks/Week Comments Not Currently [...] care for your loved ones. For example, child care sitter or elderly care for an older adult? [...] Sign Reading Time Taken Comments Blood Pressure 150/66 04/12/2025 1:31 PM EDT Pulse 91 04/12/2025 1:31 PM EDT Temperature 36.1 C (96.9 F) 04/09/2025 10:50 AM EDT Respiratory Rate 18 04/09/2025 10:5 0 AM EDT Oxygen Saturation 96% 04/12/2025 1:31 PM EDT Inhaled Oxygen Concentration - - Weight 76.2 kg (167 lb 14.4 oz) 04/12/2025 1:31 PM EDT Height 152.4 cm (5') 04/12/2025 1:31 PM EDT Body Mass Index 32.79 04/12/2025 1:31 PM EDT Plan of Treatment Upcoming Encounters Date Type Department Care Team (Late st Contact Info) Description 07/20/2025 1:10 PM EDT Office Visit [facility] [address] [place] [phone] CycArmando naranjo NP [address] [place] [address] [address] [place] [address] 02/28/2026 1:00 PM EDT Ancillary Procedure [facility] - [address] [place] [phone] Health Maintenance Due Date Last Done Comments Diabetes: Annual Foot Exam 1955 Diabetes: Annual Retina Eye Exam 1955 RSV Immunization Adult Patients (1 - 1-dose 75+ series) 2022 COVID-19 Vaccine (3 - Pfizer risk series) 05/26/2022 04/28/2022, 07/28/2021 Cholesterol Screening (Lipid Panel) 09/15/2022 Hepatitis C Screening 09/15/2022 Medicare Annual Wellness Visit 09/15/2022 Osteoporosis Screening (Bone Density Screening) 09/15/2022 Depression Screening 10/14/2024 Diabetes: Annual Urine Albumin-Creatinine Ratio (uACR) 11/12/2024 03/01/2022 Diabetes: Blood Sugar Control Test (HGBA1C) 11/12/2024 Influenza Vaccine (#1) 2025 , 07/27/2020, 08/15/2019, Additional history exists Falls Risk Assessment 04/07/2026 04/07/2025 Social Influencers of Health Screening 04/08/2026 04/08/2025 Diabetes: Annual GFR (Glomerular Filtration Rate) 04/09/2026 04/09/2025, 04/07/2025 Hypertension/CHF/CAD Annual BMP Blood Test 04/09/2026 04/09/2025, 04/07/2025 DTaP,Tdap,and Td Vaccines (2 - Td or [...] this topic Medical Devices Implanted Type Area Maintenance Scheduler Device Identifier Shelf Expiration Date Model / Serial / Lot Medt-Card Eloisa Xt Dr Monroy [id number] Implanted:2024 (Quantity not on file) Cardiac Pacemaker [employer] - CARDIAC RHYTH-CRDM ELOISA XT DR MONROY [id number] / [id number] / Medt-Card [place] Xt Dr Monroy [id number] Implanted:2024 (Quantity not on file) Cardiac Pacemaker [employer] - CARDIAC RHYTH-CRDM ELOISA XT DR MONROY / [id number] / Pacemaker Leadless 19.5f 38mm Rv - [id number] - [id number] Implanted:Qty: 1 on 04/07/2025 by Devyn Tenorio MD at [facility] Cardiac Pacemaker Left: Chest Wall [employer] [facility] [id number] 02/17/2027 [id number] / [id number] / Pacemaker Leadless 19.5f 32.2mm Ra - [id number] - [id number] Implanted:Qty: 1 on 04/07/2025 by Devyn Tenorio MD at [facility] Cardiac Pacemaker Left: Chest Wall [employer] [facility] [id number] 03/01/2027 [id number] / [id number] / Absorber Antibacterial Med Envelope Tyrx - [id number] - [id number] Implanted:Qty: 1 on 03/03/2025 by Devyn Tenorio MD at [facility] Other Cardiac Implant Left: Chest [employer] - CARDIAC RHYTH-[facility] [id number] 09/09/2025 [id number] / [id number] / [id number] Procedures Procedure Name Priority Date/Time Associated Diagnosis Comments CARDIAC DEVICE CHECK- REMOTE- MURJ Routine 05/12/2025 7:27 PM EDT ECG 12-LEAD Routine 04/12/2025 2:59 PM EDT Mixed hyperlipidemia S/P TAVR (transcatheter aortic valve replacement) POCT GLUCOSE BLOOD Routine 04/09/2025 10 :51 AM EDT POCT GLUCOSE BLOOD Routine 04/09/2025 7: 48 AM EDT CBC WITH AUTO DIFFERENTIAL Routine 04/09/2025 5:53 AM EDT BASIC METABOLIC PANEL Routine 04/09/2025 5:53 AM EDT CBC AND DIFFERENTIAL Routine 04/09/2025 5:53 AM EDT HEMOGLOBIN AND HEMATOCRIT Routine 04/08/2025 9:27 PM EDT POCT GLUCOSE BLOOD Routine 04/08/2025 7: 53 PM EDT POCT GLUCOSE BLOOD Routine 04/08/2025 3: 18 PM EDT TRANSTHORACIC ECHOCARDIOGRAM (TTE) COMPLETE W/ CONTRAST STAT 04/08/2025 2:00 PM EDT Pericardial effusion after operative procedure TRANSFUSE RED BLOOD CELLS Routine 04/08/2025 1:46 PM EDT XR CHEST 2 VIEWS Routine 04/08/2025 12:[address] ABDOMEN PELVIS WO CONTRAST STAT 04/08/2025 12:17 PM EDT TYPE AND SCREEN Routine 04/08/2025 11:22 AM EDT PREPARE RBC Routine 04/08/2025 11:03 AM EDT POCT GLUCOSE BLOOD Routine 04/08/2025 11 :02 AM EDT POCT GLUCOSE BLOOD Routine 04/08/2025 7: 38 AM EDT COMPLETE BLOOD COUNT Routine 04/08/2025 6:34 AM EDT SST - GOLD Routine 04/08/2025 6:26 AM EDT EXTRA TUBES Routine 04/08/2025 6:26 AM EDT POCT GLUCOSE BLOOD Routine 04/08/2025 12 :12 AM EDT POCT GLUCOSE BLOOD Routine 04/07/2025 8: 16 PM EDT BASIC METABOLIC PANEL Routine 04/07/2025 8:02 PM EDT HEMOGLOBIN AND HEMATOCRIT STAT 04/07/2025 6:35 PM EDT POCT VENOUS BASIC METABOLIC PROFILE, HH Routine 04/07/2025 6:09 PM EDT INSERT TEMPORARY PACEMAKER Routine 04/07/2025 5:40 PM EDT Infection of pacemaker pocket, sequela REMOVE PPM DUAL LEADS Routine 04/07/2025 5:40 PM EDT Infection of pacemaker pocket, sequela INSERT / REPLACE LEADLESS PPM Routine 04/07/2025 5:40 PM EDT Infection of pacemaker pocket, sequela CULTURE WOUND WITH GRAM STAIN Routine 04/07/2025 2:07 PM EDT POCT VENOUS BASIC METABOLIC PROFILE, HH Routine 04/07/2025 10:45 AM EDT TRANSTHORACIC ECHOCARDIOGRAM (TTE) COMPLETE Routine 03/29/2025 12:10 PM EDT Nonrheumatic aortic valve stenosis POCKET REVISION Routine 03/03/2025 3:50 PM EDT Infection of pacemaker pocket (CMS/HCC V24) CULTURE ABSCESS WITH GRAM STAIN Routine 03/03/2025 3:36 PM EDT CARDIAC DEVICE CHECK- IN CLINIC- MURJ Routine 02/24/2025 3:39 PM EDT Encounter for adjustment or management of cardiac device from Last 3 Months Results * Cardiac device check - Remote- MURJ (05/12/2025 7:27 PM EDT) Date Time Interrogation Session [id number] CV DEVICE CHECK Type Interrogation Session Remote CV DEVICE CHECK Implantable Pulse Generator Maintenance Scheduler MDT CV DEVICE CHECK Implantable Pulse Generator Type IPG CV DEVICE CHECK Implantable Pulse Generator Model [place] XT DR MRI [id number] CV DEVICE CHECK Implantable Pulse Generator Serial Number [id number] CV DEVICE CHECK Implantable Pulse Generator Implant Date 20250129 CV DEVICE CHECK Battery Remaining Longevity 128.0 CV DEVICE CHECK Battery Voltage 3.170 CV D EVICE CHECK Battery [employer] Trigger 2.625 CV DEVICE CHECK Battery Status Middle of Service CV DEVICE CHECK Luis Statistic RA Percent Paced 31.77 CV DEVICE CHECK Luis Statistic RV Percent Paced 98.93 CV DEVICE CHECK Atrial Tachy Statistic AT/AF [place] Percent 0.00 CV DEVICE CHECK Lead Channel Sensing Intrinsic Amplitude 4.750 CV DEVICE CHECK Lead Channel Setting Sensing Sensitivity 0.30 CV DEVICE CHECK Lead Channel Impedance Value 361 CV DEVICE CHECK Lead Channel Pacing Threshold Amplitude 0.625 CV DEVICE CHECK Lead Channel Pacing Threshold Pulse Width 0.4 CV DEVICE CHECK Lead Channel RA Pacing Threshold Date 2025-03-29 CV DEVICE CHECK Lead Channel Setting Pacing Amplitude 3.500 CV DEVICE CHECK Lead Channel Setting Pacing Pulse Width 0.4 CV DEVICE CHECK Lead Channel Sensing Intrinsic Amplitude 19.625 CV DEVICE CHECK Lead Channel Setting Sensing Sensitivity 0.90 CV DEVICE CHECK Lead Channel Impedance Value 418 CV DEVICE CHECK Lead Channel Pacing Threshold Amplitude 0.375 CV DEVICE CHECK Lead Channel Pacing Threshold Pulse Width 0.4 CV DEVICE CHECK Lead Channel RV Pacing Threshold Date 2025-03-29 CV DEVICE CHECK Lead Channel Setting Pacing [...] CHECK Zone ID 6 CV DEVICE CHECK Date of Service 2025-05-12 CV DEVICE CHECK Anatomical Region Laterality Modality Device Interroga tion 03/29/2025 2:47 AM EDT Impressions 05/12/2025 4:15 PM EDT Normal Remote: No Events * Normal Device Function * Alerts or events: None * Battery: OK, 10.67 yrs * Sensing, impedance and thresholds reviewed * Programmed parameters reviewed * Presenting rhythm reviewed * Heart Rate Histograms reviewed * No significant changes noted Narrative Procedure Note Devyn Tenorio MD - 05/12/2025 IMPRESSION: Normal Remote: No Events * Normal Device Function * Alerts or events: None * Battery: OK, 10.67 yrs * Sensing, impedance and thresholds reviewed * Programmed parameters reviewed * Presenting rhythm reviewed * Heart Rate Histograms reviewed * No significant changes noted Devyn Tenorio MD CV IMPLANTABLE CARDIAC DEV ICE PROCEDURES Final Result * ECG 12 lead (04/12/2025 2:59 PM EDT) Ventricular Rate ECG 79 BPM GEMUSE Atrial Rate 94 BPM GEMUSE QRS Duration 198 ms GEMUSE Q-T Interval 490 ms GEMUSE QTc 561 ms GEMUSE R [place] -16 degrees GEMUSE T [place] 153 degrees GEMUSE ECG Interpretation Ventricular-pa cammie rhythm Abnormal ECG When compared with ECG of 28-SEP-2021 07:27, Electronic ventricular pacemaker has replaced Sinus rhythm Confirmed by Alicia CLAYTON JAMES ([id number]) on 04/13/2025 3:21:58 PM GEMUSE 04/12/2025 2:00 PM EDT 04/13/2025 3:21 PM EDT Armando Bentley ASSEMBLER [employer] ECG ORDERABLES Edited Resu lt - Final GEMUSE * (ABNORMAL) POCT Glucose, blood (04/09/2025 10:51 AM EDT) Only the most recent of8 resultswithin the time period is included. [facility] Glucose POCT 333(H) 70 - 100 mg/dL 04/09/2025 10:51 AM EDT [facility] Blood Capillary blood specimen / Unknown 04/09/2025 10:51 AM EDT 04/09/2025 10:52 AM EDT Kelton Leong MD LAB POINT OF CA RE TEST DOCKED DEVICE UNSOLICITED RESULTS Final Result Performing Organization Address [facility]/ZIP Co de Phone Number [facility] [address] [place] [address], * (ABNORMAL) CBC auto differential (04/09/2025 5:53 AM EDT) [facility] WBC 5.9 4.8 - 10.8 K/mcL LAB HEMETOLOGY METHOD 04/09/2025 6:55 AM EDT [facility] RBC 2.70(L) 3.80 - 4.80 M/[facility] LAB HEMETOLOGY METHOD 04/09/2025 6:55 AM EDT [facility] Hemoglobin 8.3(L) 11.5 - 16.0 g/dL LAB HEMETOLOGY METHOD 04/09/2025 6:55 AM [facility] Hematocrit 25.3(L) 35.0 - 47.0 % LAB HEMETOLOGY METHOD 04/09/2025 6:55 AM [facility] MCV 93.7 79.0 - 98.0 FL LAB HEMETOLOGY METHOD 04/09/2025 6:55 AM [facility] MCH 30.7 27.0 - 32.0 pcg LAB HEMETOLOGY METHOD 04/09/2025 6:55 AM [facility] MCHC 32.8 32.0 - 37.0 g/dL LAB HEMETOLOGY METHOD 04/09/2025 6:55 AM [facility] RDW 13.5 11.0 - 15.0 % LAB HEMETOLOGY METHOD 04/09/2025 6:55 AM [facility] Platelets 181 130 - 400 K/mcL LAB HEMETOLOGY METHOD 04/09/2025 6:55 AM [facility] MPV 10.5 7.0 - 11.0 FL LAB HEMETOLOGY METHOD 04/09/2025 6:55 AM [facility] NRBC 0.0 <1.0 % LAB HEMETOLOGY METHOD 04/09/2025 6:55 AM [facility] NRBC Absolute 0.00 <0.10 K/mcL LAB HEMETOLOGY METHOD 04/09/2025 6:55 AM [facility] Neutrophils Relative 58.8 % LAB HEMETOLOGY METHOD 04/09/2025 6:55 AM [facility] Lymphocytes Relative 30.5 % LAB HEMETOLOGY METHOD 04/09/2025 6:55 AM [facility] Monocytes Relative 8.8 % LAB HEMETOLOGY METHOD 04/09/2025 6:55 AM [facility] Eosinophils Relative 1.2 % LAB HEMETOLOGY METHOD 04/09/2025 6:55 AM EDT [facility] Basophils Relative 0.2 % LAB HEMETOLOGY METHOD 04/09/2025 6:55 AM EDT [facility] Immature Granulocytes Relative 0.5 % LAB HEMETOLOGY METHOD 04/09/2025 6:55 AM EDT [facility] Neutrophils Absolute 3.47 1.50 - 7.00 K/mcL LAB HEMETOLOGY METHOD 04/09/2025 6:55 AM EDT [facility] Lymphocytes Absolute 1.80 1.00 - 5.00 K/mcL LAB HEMETOLOGY METHOD 04/09/2025 6:55 AM EDT [facility] Monocytes Absolute 0.52 0.20 - 1.00 K/mcL LAB HEMETOLOGY METHOD 04/09/2025 6:55 AM EDT [facility] Eosinophils Absolute 0.07 0.00 - 0.50 K/mcL LAB HEMETOLOGY METHOD 04/09/2025 6:55 AM EDT [facility] Basophils Absolute 0.01 0.00 - 0.20 K/mcL LAB HEMETOLOGY METHOD 04/09/2025 6:55 AM EDT [facility] Immature Granulocytes Absolute 0.03 0.00 - 0.03 K/mcL LAB HEMETOLOGY METHOD 04/09/2025 6:55 AM EDT [facility] Blood Venous blood specimen / Unknown Venipuncture / Unknown 04/09/2025 5:53 AM EDT 04/09/2025 6:22 AM EDT us Mao AVRGAS LAB BLOOD ORDERABLES Final Res ult [facility] [address] [place] [address], * (ABNORMAL) Basic metabolic panel (04/09/2025 5:53 AM EDT) Only the most recent of2 resultswithin the time period is included. Sodium 139 133 - 145 mmol/L LAB CHEMISTRY METHOD 04/09/2025 7:09 AM [facility] Potassium 4.2 3.5 - 5.5 mmol/L LAB CHEMISTRY METHOD 04/09/2025 7:09 AM [facility] Chloride 106 96 - 110 mmol/L LAB CHEMISTRY METHOD 04/09/2025 7:09 AM [facility] CO2 29 21 - 32 mmol/L LAB CHEMISTRY METHOD 04/09/2025 7:09 AM [facility] Anion Gap 4 3 - 11 LAB CHEMISTRY METHOD 04/09/2025 7:09 AM [facility] Glucose 191(H) 70 - 100 mg/dL LAB CHEMISTRY METHOD 04/09/2025 7:09 AM [facility] BUN 13 5 - 25 mg/dL LAB CHEMISTRY METHOD 04/09/2025 7:09 AM [facility] Creatinine 0.90 0.50 - 1.10 mg/dL LAB CHEMISTRY METHOD 04/09/2025 7:09 AM [facility] eGFR 66 >=60 mL/min/1. 73m2 LAB CHEMISTRY METHOD 04/09/2025 7:09 AM [facility] Comment:Calculation based on the Chronic Kidney Disease Epidemiology Collaboration (CKD-EPI) equation refit without adjustment for race. BUN/Creatinine Ratio 14.4 LAB CHEMISTRY METHOD 04/09/2025 7:09 AM [facility] Calcium 9.0 8.5 - 10.5 mg/dL LAB CHEMISTRY METHOD 04/09/2025 7:09 AM [facility] Blood Venous blood specimen / Unknown Venipuncture / Unknown 04/09/2025 5:53 AM EDT 04/09/2025 6:21 AM EDT us Mao VARGAS LAB BLOOD ORDERABLES Final Res ult Performing Organization Address City/[facility]/ZIP Co de Phone Number [facility] [address] [place] [address], [place] [phone] * (ABNORMAL) Hemoglobin and hematocrit (04/08/2025 9:27 PM EDT) Only the most recent of2 resultswithin the time period is included. Hemoglobin 8.3(L) 11.5 - 16.0 g/dL LAB HEMETOLOGY METHOD 04/08/2025 9:49 PM EDT [facility] Hematocrit 25.4(L) 35.0 - 47.0 % LAB HEMETOLOGY METHOD 04/08/2025 9:49 PM EDT [facility] Blood Venous blood specimen / Unknown Venipuncture / Unknown 04/08/2025 9:27 PM EDT 04/08/2025 9:40 PM EDT Mao VARGAS LAB BLOOD ORDERABLES Final Res ult Performing Organization Address City/[facility]/ZIP Co de Phone Number [facility] [address] [place] [address], [place] [phone] * Transfuse RBC (04/08/2025 4:52 PM EDT) Steffi Palacios ASSEMBLER [employer]URNITURE BLOOD TRANSFUSION ORDERABLES Final Result * (ABNORMAL) TRANSTHORACIC ECHOCARDIOGRAM (TTE) COMPLETE W/ CONTRAST (04/08/2025 2:00 PM EDT) Left Atrium Major [place] 6.0 cm CV PACS LA Area Sys (A4C) 23 cm2 CV PACS AV Mean Gradient 11 mmHg CV PACS Ao VTI 46.9 cm CV PACS AV Peak Ronny 2.4 m/s CV PACS AV Peak Gradient 22 mmHg CV PACS Ascending Aorta 2.8 cm CV PACS IVSD 0.9 0.6 - 0.9 cm CV PACS LVIDD 3.9 3.8 - 5.2 cm CV PACS LVIDS 2.5 2.2 - 3.5 cm CV PACS LVOT Mean Grad 3 mmHg CV PACS LVOT Peak VTI 22.5 cm CV PACS LVOT Mean Ronny 0.9 m/s CV PACS LVOT Peak Ronny 1.5 m/s CV PACS LVOT Peak Gradient 6 mmHg CV PACS LVPWD 1.1(A) 0.6 - 0.9 cm CV PACS PV Acceleration Time 74 ms CV PACS PV Acceleration Time 74 ms CV PACS RV S' 17 cm/s CV PACS TAPSE 18 mm CV PACS Relative Wall Thickness ratio 0.56(A) 0.22 - 0.42 CV PACS LVOT:AV VTI Index 0.48 CV PACS FS 36 % CV PACS LV Mass 2D 122 66 - 150 g CV PACS Ascending Aorta Index 1.59 cm/m2 CV PACS LVIDD Index 2.22 cm/m2 CV PACS LVIDS Index 1.42 cm/m2 CV PACS AV Velocity Ratio 0.63 CV PACS LV Mass Index 2D 69 44 - 88 g/m2 CV PACS Est. RA Pressure 3 mmHg CV PACS BSA 1.83 m2 CV PACS RV Free Wall Peak S' 17 cm/s CV PACS Anatomical Region Laterality Modality Ultrasound Narrative 04/08/2025 3:13 PM EDT Left ventricle cavity size is normal. There is mild, concentric left ventricular hypertrophy with sigmoid septum-a benign variant. No regional LV wall motion abnormalities noted. Paradoxic septal motion is noted in keeping with paced rhythm most likely. Ejection fraction is estimated at 60 to 65%. Right ventricle cavity is normal. Right ventricular systolic function is normal. A TAVR bioprosthetic aortic valve is present. Prosthetic valve appears to be functioning normally with a gradient within the expected range. A catheter tip is seen at the base of the right atrium. No clear evidence of pericardial effusion. Staff message sent to Dr Tenorio and Dave. Left Ventricle Left ventricle cavity size is normal. There is mild concentric hypertrophy. Sigmoid septum a benign variant. Systolic function is normal with an ejection fraction of 60- 65%. There are no regional LV wall motion abnormalities. Indeterminate diastolic function. There is abnormal septal motion consistent with right ventricular pacing. Right Ventricle Right ventricle cavity appears normal. Systolic function is normal. Left Atrium Left atrium cavity size is normal. Right Atrium Right atrium cavity is normal. A catheter is present in the right atrium. IVC/SVC Inferior vena cava structure is normal. Mitral Valve The leaflets are mildly thickened. There is mild annular calcification. There is no regurgitation or stenosis. Tricuspid Valve The leaflets exhibit normal excursion. There is no regurgitation or stenosis. Cannot assess RVSP. Aortic Valve The valve has been surgically replaced. There is a TAVR bioprosthetic valve. The prosthetic valve appears to be functioning normally. There is no regurgitation. The gradient recorded across the prosthetic aortic valve is within the expected range. Pulmonic Valve Visualized portions of the pulmonic valve appear normal. There is no regurgitation or stenosis. Ascending Aorta The aorta appears normal in size. Pericardium There is a prominent epicardial fat noted. However there is no clear evidence of pericardial effusion. Pericardium is somewhat suboptimally visualized however. There is no pericardial effusion. Study Details Overall the study quality was adequate. Definity contrast was given to enhance imaging. us Milo Clayton MD CV ECHO PROCEDURES Final Resul t * XR Chest 2 Views (04/08/2025 12:25 PM EDT) Anatomical Region Laterality Modality Body Radiographic Brooke ging 04/08/2025 1:33 PM EDT Impressions 04/08/2025 1:37 PM EDT Lead less pacemaker overlying the cardiac silhouette. -------- FINAL REPORT -------- Dictated By: Dee Vaca Dictated Date: 04/08/2025 13:33 ET Assigned Physician: Dee Vaca Reviewed and Electronically Signed By: Dee Vaca Signed Date: 04/08/2025 13:37 ET Workstation ID: [id number] Transcribed By: Self Edit Transcribed Date: 04/08/2025 13:33 ET Narrative 04/08/2025 1:37 PM EDT INDICATION: Status post placement of the pelvis pacemaker FINDINGS: Two views of the chest were obtained. Compared to multiple prior studies most recent from February 15, 2022. Lung rodas are clear. Possible 12 mm left upper lobe pulmonary nodule versus bony hypertrophy. Cardiomediastinal silhouette is stable in size and shape. Midline sternotomy noted with multiple mediastinal clips consistent with CABG procedure. Status post TAVR procedure. Interval placement of lead less pacemaker overlying the cardiac silhouette to the left midline. Bony structures are within normal limits for the patient's age. Procedure Note Dee Vaca MD - 04/08/2025 INDICATION: Status post placement of the pelvis pacemaker FINDINGS: Two views of the chest were obtained. Compared to multiple priorstudies most recent from February 15, 2022. Lung rodas are clear. Possible 12 mm left upper lobe pulmonary noduleversus bony hypertrophy. Cardiomediastinal silhouette is stable in size and shape. Midlinesternotomy noted with multiple mediastinal clips consistent with CABGprocedure. Status post TAVR procedure. Interval placement of lead lesspacemaker overlying the cardiac silhouette to the left midline. Bony structures are within normal limits for the patient's age. IMPRESSION: Lead less pacemaker overlying the cardiac silhouette. -------- FINAL REPORT -------- Dictated By: Dee Vaca Dictated Date: 04/08/2025 13:33 ET Assigned Physician: Dee Vaca Reviewed and Electronically Signed By: Dee Vaca Signed Date: 04/08/2025 13:37 ET Workstation ID: [id number] Transcribed By: Self Edit Transcribed Date: 04/08/2025 13:33 ET Steffi Palacios ASSEMBLER [employer] IMG XR PROCEDURES Final Resu lt * CT Abdomen Pelvis wo Contrast (04/08/2025 12:17 PM EDT) Anatomical Region Laterality Modality Body Computed Tomogra phy 04/08/2025 12:2 9 PM EDT Impressions 04/08/2025 12:36 PM EDT No retroperitoneal hematoma.. -------- FINAL REPORT -------- Dictated By: Humberto Llanos Dictated Date: 04/08/2025 12:29 ET Assigned Physician: Humberto Llanos Reviewed and Electronically Signed By: Humberto Llanos Signed Date: 04/08/2025 12:36 ET Workstation ID: [id number] Transcribed By: Self Edit Transcribed Date: 04/08/2025 12:34 ET Narrative 04/08/2025 12:36 PM EDT PROCEDURE: CT Abdomen and Pelvis without contrast INDICATION: r/o post procedural retroperitoneal bleed TECHNIQUE: CT of the abdomen and pelvis without contrast. Multiplanar reformats. The examination was performed utilizing dose reduction techniques. DLP: 1075 mGy/cm COMPARISON: No priors available. FINDINGS: LOWER THORAX: Pacer leads postoperative mediastinum. TAVR. coronary artery calcifications. HEPATOBILIARY: No focal liver lesions. Vicarious excretion of contrast within the gallbladder. SPLEEN: No splenomegaly. PANCREAS: Atrophic pancreas. ADRENALS: No nodules. KIDNEYS/URETERS: Excretion of contrast in the collecting systems and bladder. PELVIC ORGANS/BLADDER: Small amount of air within the bladder presumably from catheterization. Status post hysterectomy. PERITONEUM / RETROPERITONEUM: No ascites or free air. No retroperitoneal lymphadenopathy. VESSELS: Sclerotic plaque throughout the aorta and its branches with aneurysmal dilatation of the infrarenal abdominal aorta measuring 3.4 cm. Postsurgical changes of the right groin with stranding but no hematoma or retroperitoneal hematoma evident. GI TRACT: Scattered diverticuli without evidence for acute diverticulitis. Prominent stool burden throughout the colon. Normal caliber appendix. No small bowel obstruction. Small hiatal hernia. BONES AND SOFT TISSUES: Scattered degenerative changes seen throughout the bones. Surgical clips right groin. Small fat-containing umbilical hernia. Procedure Note Humberto Llanos MD - 04/08/2025 PROCEDURE: CT Abdomen and Pelvis without contrast INDICATION: r/o post procedural retroperitoneal bleed TECHNIQUE: CT of the abdomen and pelvis without contrast. Multiplanarreformats. The examination was performed utilizing dose reductiontechniques. DLP: 1075 mGy/cm COMPARISON: No priors available. FINDINGS: LOWER THORAX: Pacer leads postoperative mediastinum. TAVR. coronary arterycalcifications. HEPATOBILIARY: No focal liver lesions. Vicarious excretion of contrastwithin the gallbladder. SPLEEN: No splenomegaly. PANCREAS: Atrophic pancreas. ADRENALS: No nodules. KIDNEYS/URETERS: Excretion of contrast in the collecting systems andbladder. PELVIC ORGANS/BLADDER: Small amount of air within the bladder presumablyfrom catheterization. Status post hysterectomy. PERITONEUM / RETROPERITONEUM: No ascites or free air. No retroperitoneallymphadenopathy. VESSELS: Sclerotic plaque throughout the aorta and its branches withaneurysmal dilatation of the infrarenal abdominal aorta measuring 3.4 cm.Postsurgical changes of the right groin with stranding but no hematoma orretroperitoneal hematoma evident. GI TRACT: Scattered diverticuli without evidence for acute diverticulitis.Prominent stool burden throughout the colon. Normal caliber appendix.No small bowel obstruction. Small hiatal hernia. BONES AND SOFT TISSUES: Scattered degenerative changes seen throughout thebones. Surgical clips right groin. Small fat-containing umbilicalhernia. IMPRESSION: No retroperitoneal hematoma.. -------- FINAL REPORT -------- Dictated By: Humberto Llanos Dictated Date: 04/08/2025 12:29 ET Assigned Physician: Humberto Llanos Reviewed and Electronically Signed By: Humberto Llanos Signed Date: 04/08/2025 12:36 ET Workstation ID: [id number] Transcribed By: Self Edit Transcribed Date: 04/08/2025 12:34 ET Steffi Palacios ASSEMBLER [employer] IMG CT PROCEDURES Final Resu lt * Type and screen (04/08/2025 11:22 AM EDT) ABO Group A 04/08/2025 12:22 PM EDT [facility] Rh Type Positive 04/08/2025 12:22 PM EDT [facility] Antibody Screen Negative 04/08/2025 12:22 PM EDT [facility] Blood Venous blood specimen / Unknown Venipuncture / Unknown 04/08/2025 11:22 AM EDT 04/08/2025 11:35 AM EDT us Steffi Palacios NP LAB BLOOD BANK TEST ORDERABL ES Final Result [facility] [address] [place] [address], [place] [phone] * Prepare RBC: 1 Units (04/08/2025 11:03 AM EDT) Pathologist [facility] Product Code [id number] 04/08/2025 1:47 PM EDT [facility] Unit Number [id number] 04/08/20 1:47 PM EDT [facility] Crossmatch Compatible 04/08/2025 12:32 PM EDT [facility] Dispense Status Transfused 04/08/2025 1:47 PM EDT [facility] Unit ABO Rh APOS 04/08/2025 1:47 PM EDT [facility] Unit Expiration Date Time [id number] 04/08/2025 1:47 PM EDT [facility] Unit Blood Type 6200 04/08/2025 1:47 PM EDT [facility] Blood Venous blood specimen / Unknown 04/08/2025 11:03 AM EDT 04/08/2025 11:35 AM EDT us Steffi Palacios [employer]SEM[employer] BLOOD BANK PRODUCT ORDERABLE S Final Result [facility] [address] [place] [address], * (ABNORMAL) Complete blood count (04/08/2025 6:34 AM EDT) Pathologist [facility] WBC 8.8 4.8 - 10.8 K/mcL LAB HEMETOLOGY METHOD 04/08/2025 8:10 AM EDT [facility] RBC 2.40(L) 3.80 - 4.80 M/mcL LAB HEMETOLOGY METHOD 04/08/2025 8:10 AM EDT [facility] Hemoglobin 7.2(L) 11.5 - 16.0 g/dL LAB HEMETOLOGY METHOD 04/08/2025 8:10 AM EDT [facility] Hematocrit 22.3(L) 35.0 - 47.0 % LAB HEMETOLOGY METHOD 04/08/2025 8:10 AM EDT [facility] MCV 94.9 79.0 - 98.0 FL LAB HEMETOLOGY METHOD 04/08/2025 8:10 AM EDT [facility] MCH 30.6 27.0 - 32.0 pcg LAB HEMETOLOGY METHOD 04/08/2025 8:10 AM EDT [facility] MCHC 32.3 32.0 - 37.0 g/dL LAB HEMETOLOGY METHOD 04/08/2025 8:10 AM EDT [facility] RDW 13.1 11.0 - 15.0 % LAB HEMETOLOGY METHOD 04/08/2025 8:10 AM EDT [facility] Platelets 198 130 - 400 K/mcL LAB HEMETOLOGY METHOD 04/08/2025 8:10 AM EDT [facility] MPV 10.9 7.0 - 11.0 FL LAB HEMETOLOGY METHOD 04/08/2025 8:10 AM EDT [facility] NRBC 0.0 <1.0 % LAB HEMETOLOGY METHOD 04/08/2025 8:10 AM EDT [facility] NRBC Absolute 0.00 <0.10 K/mcL LAB HEMETOLOGY METHOD 04/08/2025 8:10 AM EDT [facility] Blood Venous blood specimen / Unknown Venipuncture / Unknown 04/08/2025 6:34 AM EDT 04/08/2025 7:14 AM EDT us Steffi Palacios [employer] LAB BLOOD ORDERABLES Final R esult [facility] [address] [place] [address], * SST tube (04/08/2025 6:26 AM EDT) [facility] Extra Tube Hold for add-ons. 04/08/2025 9:01 AM EDT [facility] Comment:Auto resulted. Blood Venous blood specimen / Unknown Venipuncture / Unknown 04/08/2025 6:26 AM EDT 04/08/2025 7:15 AM EDT Devyn Tenorio MD LAB BLOOD ORDERABLES Final Result [facility] [address] [place] [address], [place] [phone] * (ABNORMAL) POCT venous basic metabolic profile, (04/07/2025 6:09 PM EDT) Only the most recent of2 resultswithin the time period is included. [facility] Glucose Venous POCT 314(H) 70 - 100 mg/dL 04/07/2025 6:13 PM EDT [facility] Sodium Venous POCT 139 135 - 145 mmol/L 04/07/2025 6:13 PM EDT [facility] Potassium Venous POCT 5.9(H) 3.5 - 5.5 mmol/L 04/07/2025 6:13 PM T [facility] Chloride Venous POCT 104 96 - 110 mmol/L 04/07/2025 6:13 PM T [facility] TCO2 Venous POCT 26 21 - 32 mmol/L 04/07/2025 6:13 PM EDT [facility] BUN Venous POCT 19 5 - 25 mg/dL 04/07/2025 6:13 PM T [facility] Creatinine Venous POCT 0.7 0.5 - 1.1 mg/dL 04/07/2025 6:13 PM T [facility] Ionized Calcium Venous POCT 4.40(L) 4.50 - 5.30 mg/dL 04/07/2025 6:13 PM EDT [facility] Hemoglobin Venous POCT 9.9(L) 11.5 - 16.0 g/dL 04/07/2025 6:13 PM EDT [facility] Hematocrit Venous POCT 29(L) 35 - 47 % 04/07/2025 6:13 PM EDT [facility] Blood Venous blood specimen / Unknown 04/07/2025 6:09 PM EDT 04/07/2025 6:15 PM EDT Devyn Tenorio MD LAB POINT OF CARE TEST DOCKED DEVICE UNSOLICITED RESULTS Final Result [facility] [address] [place] [address], * INSERT / REPLACE LEADLESS PPM, REMOVE PPM DUAL LEADS, INSERT TEMPORARY PACEMAKER (04/07/2025 5:40 PM EDT) Anatomical Region Laterality Modality X-Ray Angiograph y Narrative 04/08/2025 11:16 AM EDT Removal of pacemaker pulse generator Removal of pacemaker lead dual lead system both leads Insertion of a leadless pacemaker right ventricle Insertion of leadless pacemaker right atrium Temporary pacemaker single-chamber Study Details 79-year-old female past med history of coronary disease with prior stenting, aortic stenosis status post TAVR, prior CABG, abdominal aneurysm, lung cancer as postchemotherapy radiation, pulm embolism on apixaban, hypertension, diabetes, hyperlipidemia who did need a dual-chamber left bundle area pacemaker post TAVR operation. Incision site is poorly healing despite a prior incision revision and pocket irrigation and debridement. -- I suspect there is a underlying infection complicating the healing of her device incision. Some of the issues may also be related to poorly controlled diabetes and history of cancer with prior chemotherapy radiation. Given that she needs to have atrial pacing I would recommend a leadless system so that this infection risk is significant reduced. The [place], [place] leadless system will allow AV synchrony most optimally for her. I reviewed the procedure in detail including the 1 to 3% risk of , stroke, infection, and cardia perforation with late tamponade. I would also remove her device after placement which is in the left upper extremity. I would continue to monitor overnight and if stable next morning can be discharged at that time. Procedure Details Patient was brought to the EP lab in a fasting state. She was consented prior to procedure. She was prepped and draped in the usual sterile fashion. Anesthesiology provided deep sedation. Initially I used ultrasound-guided technique and placed an 8 Russian sheath in the left femoral vein and a 6 Russian sheath in the right femoral vein. Through the left femoral vein, I placed temporary wire in the right ventricle. I had good capture. Patient was then reprepped and draped. I made incision in the left upper chest. I remove the device. I removed the suture rings around the leads and easily removed the 3830-lead and the left atrial pacing lead. I irrigated the pocket and I stapled the incision closed. I placed a Tegaderm dressing over that incision. Patient was then reprepped and draped in usual fashion. I exchanged the right femoral vein for the delivery sheath for AVEIR leadless system. I initially used a catheter and placed the leadless pacemaker in the right ventricle septal region. After confirming good sensing thresholds impedances I deployed the device in the RV septal position. I then reprepped a new delivery catheter and deployed the leadless pacemaker in the right atrial appendage. I used multiple TRISTANIAN ADAM views and multiple contrast injections in the right ventricle and then the right atrium for proper visualization. I again confirmed good sensing threshold impedances and deployed device. I had good atrial sensing and ventricular capture. I remove the temporary wire. I removed the sheaths on both sides I did tie a silk suture on the right femoral vein for additional hemostasis purposes. Patient covered from deep sedation with any further complications. There was a period of time and when there was a loss of capture from the temporary wire there was approximately 45 seconds without any significant other hemodynamic compromise. us Devyn Tenorio MD CV ELECTROPHYSIOLOGY IMCHAEL RILEY Final Result * Culture wound with gram stain (04/07/2025 2:07 PM EDT) Culture, Wound No growth at 3 days 04/10/2025 9:42 AM EDT [facility] Gram Stain Result No polymorphonuclear leukocytes, No epithelial cells, and No organisms noted 04/10/2025 9:42 AM EDT [facility] Swab Left thorax structure / Unknown Non-blood Collection / Unknown 04/07/2025 2:07 PM EDT 04/07/2025 2:10 PM EDT us Steffi Palacios [employer]SEM[employer] LAB MICROBIOLOGY - GENERAL O RDERABLES Final Result [facility] [address] [place] [address], [place] [phone] * (ABNORMAL) TRANSTHORACIC ECHOCARDIOGRAM (TTE) COMPLETE (03/29/2025 12:10 PM EDT) Left Atrium Minor [place] 5.6 cm CV PACS Left Atrium Major [place] 5.4 cm CV PACS LA Area Sys (A2C) 23 cm2 CV PACS LA Area Sys (A4C) 21 cm2 CV PACS LA Volume (BP) 68 mL CV PACS LA Size 4.6 cm CV PACS RA Area 9.6 cm2 CV PACS RA 2D Volume 20 mL CV PACS AV Mean Gradient 6 mmHg CV PACS Ao VTI 37.2 cm CV PACS AV Peak Ronny 1.7 m/s CV PACS AV Peak Gradient 12 mmHg CV PACS AV Area Continuity Equation 2.2 cm2 CV PACS AV Area Peak Velocity 2.1 cm2 CV PACS Ascending Aorta 3.0 cm CV PACS IVC Proximal 1.7 cm CV PACS IVSD 1.1(A) 0.6 - 0.9 cm CV PACS LVIDD 4.3 3.8 - 5.2 cm CV PACS LVIDS 2.9 2.2 - 3.5 cm CV PACS LVOT Diameter 2.1 cm CV PACS LVOT Mean Ronny 0.7 m/s CV PACS LVOT Mean Grad 2 mmHg CV PACS LVOT Mean Grad 2 mmHg CV PACS LVOT Mean Grad 2 mmHg CV PACS LVOT Mean Grad 2 mmHg CV PACS LVOT Peak VTI 23.9 cm CV PACS LVOT Peak Ronny 1.0 m/s CV PACS LVOT Peak Gradient 4 mmHg CV PACS LVPWD 1.2(A) 0.6 - 0.9 cm CV PACS MV E' Tissue Velocity Lateral 9 cm/s CV PACS MV E' Tissue Velocity Septal 5 cm/s CV PACS LVOT Area 3.5 cm2 CV PACS LVOT Stroke Volume 83 mL CV PACS MV Deceleration Pershing 2.9 m/s2 CV PACS E Wave Deceleration Time 287(A) 119 - 242 ms CV PACS MV PHT 84 ms CV PACS MV Peak A Ronny 1.31 m/s CV PACS MV Peak E Ronny 0.82 m/s CV PACS MV Mean Gradient 2 mmHg CV PACS MV Mean Gradient 2 mmHg CV PACS MV Mean Gradient 2 mmHg CV PACS MV Mean Gradient 2 mmHg CV PACS MV VTI 38.0 cm CV PACS Mitral Valve Max Velocity 1.4 m/s CV PACS MV Peak Gradient 8 mmHg CV PACS MV Area PHT 2.6 cm2 CV PACS MV Area Continuity Equation 2.2 cm2 CV PACS PV Acceleration Time 111 ms CV PACS PV Mean Gradient 2 mmHg CV PACS PV VTI 23.8 cm CV PACS PV Peak Velocity 1.0 m/s CV PACS PV Peak Gradient 4 mmHg CV PACS RV Diastolic Basal Dimension 3.7 2.5 - 4.1 cm CV PACS RV S' 7 cm/s CV PACS TAPSE 17 mm CV PACS TR Peak Velocity 1.70 m/s CV PACS TR Peak Gradient 12 mmHg CV PACS E/E' Ratio Septal 16 CV PACS E/E' Ratio Averaged 13 CV PACS Relative Wall Thickness ratio 0.56 CV PACS LVOT:AV VTI Index 0.64 CV PACS FS 33 % CV PACS LV Mass 2D 174 g CV PACS MV VTI:LVOT VTI ratio 1.6 CV PACS LVOT flow 242 mL/s CV PACS AV Velocity Ratio 0.59 CV PACS E/A Ratio 0.6 CV PACS E/E' Ratio Lateral 9 CV PACS BSA 1.8 m2 CV PACS LA Volume Index (BP) 39 mL/m2 CV PACS LVIDD Index 2.47 cm/m2 CV PACS LVIDS Index 1.67 cm/m2 CV PACS LV Mass Index 2D 100(A) 44 - 88 g/m2 CV PACS LVOT Stroke Index 48 mL/m2 CV PACS LA Dimension Index 2D 2.6 cm/m2 CV PACS RA 2D Volume Index 11(A) 15 - 27 mL/m2 CV PACS JOSY Index (VTI) 1.28 cm2/m2 CV PACS JOSY Index (Pk Ronny) 1.21 cm2/m2 CV PACS Ascending Aorta Index 1.72 cm/m2 CV PACS Right Ventricular Peak Systolic Pressure 15 mmHg CV PACS Est. RA Pressure 3 mmHg CV PACS Anatomical Region Laterality Modality Ultrasound Narrative 04/01/2025 3:20 PM EDT Left ventricle cavity size is normal. There is mild concentric hypertrophy. Systolic function is normal with an ejection fraction of 60-65% S/p TAVR, the prosthetic valve is functioning normally Compared to the prior study, the patient underwent valve replacement and the valve is functioning normally Left Ventricle Left ventricle cavity size is normal. There is mild concentric hypertrophy. Systolic function is normal with an ejection fraction of 60-65%. There is abnormal septal motion consistent with right ventricular pacing. Right Ventricle Right ventricle cavity appears normal. A pacer wire is present in the right ventricle. Left Atrium Left atrium cavity is mildly dilated. Right Atrium Right atrium cavity is normal. IVC/SVC Inferior vena cava structure is normal. RA pressures is estimated to be 3 mmHg (IVC diameter <21 mm and decreases >50% during inspiration). Mitral Valve The leaflets are mildly thickened. There is mild annular calcification. There is mild regurgitation with a centrally directed jet. There is no evidence of mitral valve stenosis. Tricuspid Valve Tricuspid valve structure is normal. There is no significant regurgitation. The right ventricular systolic pressure is normal. Aortic Valve The valve has been surgically replaced. There is a 29 Evolut Pro mm TAVR bioprosthetic valve. The prosthetic valve appears to be functioning normally. There is no regurgitation. The gradient recorded across the prosthetic aortic valve is within the expected range. Pulmonic Valve There is trace pulmonic valve regurgitation. Ascending Aorta The aorta appears normal in size. Pericardium Pericardium appears normal. There is no pericardial effusion. Study Details Overall the study quality was adequate. Cardiac history: prosthetic valve. Wall Scoring Baseline Score Index: 2.00 The following segments are hypokinetic: basal inferoseptal, mid anteroseptal and mid inferoseptal. Other segments could not be evaluated. us Sandro Humphries MD CV ECHO PROCEDURES Final Result * POCKET REVISION (03/03/2025 3:50 PM EDT) Anatomical Region Laterality Modality X-Ray Angiograph y Narrative 04/05/2025 2:50 PM EDT Pacemaker pocket revision and debridement with placement of a Tyrex pouch and irrigation with vancomycin. Cultures obtained. Continue clindamycin. Monitor closely for incision and pocket healing as there is a moderate risk of need for removal. Study Details This patient had a permanent pacemaker placement is pacemaker dependent and has a apparent stitch abscess with suspected pocket infection Clinical Background 79-year-old female with a TAVR resulting in heart block and then had a conduction system pacer placed. She had erythema and a stitch that was externalized to some degree. She was placed on clindamycin and it improved markedly. We are going to open the incision cut the stitch and culture the pocket. If there is any infected looking material in the pocket will be irrigated and a Tyrex pouch placed. We did review the option of complete device removal and she prefers the above plan. Procedure Details After obtaining informed consent the patient was brought to the EP laboratory in the fasting state and was moderately sedated by nursing staff using small doses of Versed and fentanyl. First medication was given at 1523 and procedure end time 1541. Please see nursing flowsheet for details of doses and hemodynamics. After the usual sterile prep and local anesthesia with 1% lidocaine I made a 3 cm incision over the prior pacemaker implant site. I opened the pocket and there was purulent appearing material which was exuded. I cultured that pocket and then to remove the pacemaker which was programmed from unipolar to bipolar. I irrigated the pocket copiously with vancomycin solution. I used irrigated gauze to wipe down the device and the leads. I then placed the device and leads into a Tyrex antibacterial pouch and placed it back into the debrided and irrigated pacemaker pocket. The incision was closed with 2.0 v-loc suture and surgical glue. The patient will be continued on clindamycin given improvement on that medication and monitored for infection recurrence. The patient understands a moderate risk of the need for complete removal of the system. Of note the patient has a very narrow QRS complex and a slow junctional escape rhythm underlying. She was returned recovery in stable condition with no immediate complications. Minimal blood loss noted. Devyn Tenorio MD CV ELECTROPHYSIOLOGY PROCE OSVALDO Final Result * Culture abscess with gram stain (03/03/2025 3:36 PM EDT) CULTURE, ABSCESS No growth at 3 days 03/06/2025 10:54 AM EDT [facility] Gram Stain Result No polymorphonuclear leukocytes, No epithelial cells, and No organisms noted 03/06/2025 10:54 AM EDT [facility] Swab Left thorax structure / Unknown Non-blood Collection / Unknown 03/03/2025 3:36 PM EDT 03/03/2025 3:40 PM EDT Tavia Chairez [employer]SEM[employer] LAB MICROBIOLOGY - GENERAL ORDERABLES Final Result [facility] [address] [place] [address], * CARDIAC DEVICE CHECK- IN CLINIC- MURJ (02/24/2025 3:39 PM EDT) Date Time Interrogation Session [id number] CV DEVICE CHECK Implantable Pulse Generator Maintenance Scheduler ERIK CV DEVICE CHECK Implantable Pulse Generator Type IPG CV DEVICE CHECK Implantable Pulse Generator Model [place] XT DR MONROY CV DEVICE CHECK Implantable Pulse Generator Serial Number [id number] CV DEVICE CHECK Implantable Pulse Generator Implant Date 20250129 CV DEVICE CHECK Battery Status Beginning of Service CV DEVICE CHECK Luis Statistic RA Percent Paced 11.80 CV DEVICE CHECK Luis Statistic RV Percent Paced 99.90 CV DEVICE CHECK Atrial Tachy Statistic AT/AF [place] Percent 0.00 CV DEVICE CHECK Lead Channel Sensing Intrinsic Amplitude 4.400 CV DEVICE CHECK Lead Channel Setting Sensing Sensitivity 0.30 CV DEVICE CHECK Lead Channel Impedance Value 342 CV DEVICE CHECK Lead Channel Pacing Threshold Amplitude 0.500 CV DEVICE CHECK Lead Channel Pacing Threshold Pulse Width 0.4 CV DEVICE CHECK Lead Channel RA Pacing Threshold Date 2025-02-24 CV DEVICE CHECK Lead Channel Setting Pacing Amplitude 3.500 CV DEVICE CHECK Lead Channel Setting Pacing Pulse Width 0.4 CV DEVICE CHECK Lead Channel Sensing Intrinsic Amplitude 17.300 CV DEVICE CHECK Lead Channel Setting Sensing Sensitivity 0.90 CV DEVICE CHECK Lead Channel Impedance Value 399 CV DEVICE CHECK Lead Channel Pacing Threshold Amplitude 0.380 CV DEVICE CHECK Lead Channel Pacing Threshold Pulse Width 0.4 CV DEVICE CHECK Lead Channel RV Pacing Threshold Date 2025-02-24 CV DEVICE CHECK Lead Channel Setting Pacing [...] Maximum Sensor Rate 130 CV DEVICE CHECK Zone Setting Type Category AT/AF CV DEVICE CHECK Therapies All Rx Off CV DEVICE CHECK Zone Setting Status Monitor CV DEVICE CHECK Zone ID 2 CV DEVICE CHECK Zone Setting Type Category VT CV DEVICE CHECK Zone Setting Status Monitor CV DEVICE CHECK Zone ID 5 CV DEVICE CHECK Date of Service 2025-03-06 CV DEVICE CHECK Anatomical Region Laterality Modality Device Interroga tion 02/24/2025 Impressions 03/03/2025 2:27 PM EDT Normal In-Office: No Events * Normal Device Function * Alerts or events: None * Battery: CIARAN, 10.7 years * Sensing, impedance and thresholds reviewed and tested * 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 Tenorio. 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 Tenorio. us Order Referral Cardiovascular CV IMPLANTABLE CAR DIAC DEVICE PROCEDURES Final Result from Last 3 Months Insurance [employer] Advance Directives Documents on File Type Date Recorded Patient Alarm Adjuster Expl anation Health Care Decision (hx) 04/10/2022 AD KIDD DIRECTIVE Health Care Decision (hx) 04/10/2022 AD KIDD DIRECTIVE Health Care Decision (hx) 04/10/2022 AD KIDD DIRECTIVE Health Care Decision (hx) 04/10/2022 AD KIDD DIRECTIVE Health Care Decision (hx) 04/10/2022 AD KIDD DIRECTIVE Health Care Decision (hx) 04/10/2022 AD KIDD DIRECTIVE Care Teams Yield Clerk Relationship Specialty Start Date End Date Sary Waite MD [address], [place] [id number] PCP - General 02/08/16
[2025-05-21 11:04] LABS: Alanine Aminotransferase 18 U/L (0-31); Albumin Level 4.2 g/dL (3.5-5.0); Alkaline Phosphatase 49 U/L (39-117); Anion Gap 15 (12-20); Aspartate Amino Transferase 29 U/L (5-31); Blood Urea Nitrogen 21 mg/dL (9-16); Calcium 9.5 mg/dL (8.4-10.2); Carbon Dioxide 26 mmol/L (22-29); Chloride 104 mmol/L (96-108); Creatinine Clr Calc Pharmacy 50.7; Estimated Glomerular Filt Rate > 60; Magnesium 1.6 mg/dL (1.6-2.6); Potassium 4.6 mmol/L (3.3-5.1); Sodium 140 mmol/L (135-145); Total Protein 7.3 g/dL (6.5-8.0)
[2025-05-21] MEDS: SODIUM CHLORIDE 2163.63 ML IV (11:16)
--- NOTE | 2025-05-21 11:28 | PC.NURSE ---
Pt afebrile per rectal temp (98.9); 2 IV sites obtained; ;labs obtained/sent/results pending; pt is AV paced 70's; IVF's and ABX infusing per orders
[2025-05-21 11:32] LABS: Appearance Urine Clear; Glucose Urine UA Negative (Negative); PH 8.5 (5.0-9.0); Specific Gravity - Urine 1.010 (1.005-1.025)
[2025-05-21 11:40] LABS: INTERNATIONAL NORM RATIO 1.1 (0.9-1.1); Prothrombin Time 12.6 SEC (10.9-12.4)
[2025-05-21 11:58] LABS: Troponin-I High Sensitivity 7.8 ng/L (<3.5-17.0)
[2025-05-21] MEDS: iohexoL 350 MG/ML 100 ML INFUS..BTL 85 ML IV (12:11)
--- NOTE | 2025-05-21 13:58 | PC.NURSE ---
Pt appears disoriented in room; pt pulled off monitoring equipment and ripped out R hand IV; oriented X3, but seems confused as to why she's still in ER; hospitalist at bedside; pt refused 2nd liter of NS because it makes her need to urinate too much; pt received 1000ml of ordered fluids; made aware
--- NOTE | 2025-05-21 14:32 | P.HPHOSP_ITS ---
History of Present Illness Date of Service: 05/21/25 Attending physician on admission: Gonzalo Vickers Chief Complaint: Confusion & visual hallucinations Ms. Onofre is a pleasant 80 year old female, with a background medical history of CAD s/p CABGx2 (2017), aortic stenosis s/p TAVR, PPM placement for complete heart block complicated by PPM pocket infection s/p infective clearance and placement of wireless PPM 3 weeks ago, atrial tachycardia 04/2025, HTN, HLD, type II DM, stage IV NSCLL in remission, new pulmonary nodule recently identified, anxiety & depression, presenting to clinic at the request of family due to change in mental status. The patient reports not feeling like herself over the past few days. This morning, she approached her 's car, and identified a 'person' in the front seat of the car, and was asking him to 'get out of the front seat'; she identifies that this was a visual hallucination. Currently, she does not endorse confusion, and is alert and oriented to person, place, time and situation. She reports presenting to the hospital because her children encouraged her to do so. She reports new changes to her medications, including buspirone and pramipexole dose increases (for her restless leg syndrome). She also endorses a months' worth of increased urinary frequency, abdominal heaviness, urgency and incomplete voiding. Denies fevers chills, rigors. Denies hematuria, pyuria. Reported to ED staff that she experienced flank pain as well. ED WORKUP Unremarkable findings on blood work performed in ED including CBC, chemistry, lactic acid. Blood cultures were drawn; pending Troponin negative UA unremarkable, without leukocytes or nitrites ECG unremarkable. CT Head performed (non-con): no evidence of intracranial hemorrhage, lesions or mass effect. CT-AP w/t IV contrast: large stool burden in colon. 1.6x1.2 cm left upper pulmonary lobe mass was also identified concerning for neoplasm. Review of Systems 2 Review of Systems: Yes all other systems are reviewed and are negative [facility] Medical History Depression with anxiety Hx of aortic valve stenosis Depression Diabetes mellitus with hyperglycemia, with long-term current use of insulin Swelling of knee joint, left Hx of sigmoidoscopy Metformin adverse reaction Adenocarcinoma of left lung (~2021) Aortic stenosis Atypical migraine Transient cerebral ischemia AVM (arteriovenous malformation) of colon Normocytic anemia Nonrheumatic mitral valve regurgitation Nonrheumatic aortic (valve) stenosis Obesity History of blood transfusion Barretts esophagus AAA (abdominal aortic aneurysm) (~2008) Bleeding hemorrhoids Anemia Arthritis On anticoagulant therapy (~10/2020) On beta [place] at home Pulmonary nodules Mixed dyslipidemia Vitamin B12 deficiency GIB (gastrointestinal bleeding) COPD (chronic obstructive pulmonary disease) Bilateral pulmonary embolism (~10/2020) Restless leg syndrome Irritable bowel syndrome with both constipation and diarrhea GERD without esophagitis CAD (coronary artery disease) Essential hypertension Functional capacity: independent ambulation Family History Father HTN (hypertension) Myocardial infarction Hyperlipidemia Abdominal aneurysm Mother HTN (hypertension) Myocardial infarction Hyperlipidemia Brother Alzheimer's disease Substance abuse Sister Rheumatoid arthritis Brother Rheumatoid arthritis Maternal Aunt Diabetes mellitus Lung cancer Maternal Uncle Diabetes mellitus Son No problems noted. Daughter No problems noted. Surgical History S/P TAVR (transcatheter aortic valve replacement) History of lung biopsy (~2021) History of esophagogastroduodenoscopy (EGD) (~2020) History of hysterectomy History of colonoscopy (~2018) History of coronary artery bypass graft x 2 (~2017) History of total right knee replacement (TKR) (~2015) History of bilateral breast reduction surgery (~2010) S/P excision of lipoma (~2017) History of heart artery stent (~2007) Social History Household Members: Spouse Housing: House Do you presently have visiting nurse or other home services: No Alcohol intake: current Alcohol intake frequency: does not drink Patient Tobacco Use Status: Former Tobacco user Tobacco use type: Cigarette Cigarette Packs Per Day: 2 Years Smoked: 30 Smoked in Last 30 Days: No e-Cigarette/Vaping Use: Never Used Second Hand Smoke Exposure: No Use of substances other than those prescribed or required for medical reasons: No Substance Use Type: Marijuana Advance Directives: Yes Advance Directives on File: Yes Advance Directives Date on File: 04/27/22 Do you have a plan to hurt others: No Plan service: No Current occupational status: retired 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/ [employer] Cognitive needs: No Hearing needs: No Vision needs: Yes Meds Allergies Allergy/AdvReac Type Severity Reaction Status Date / Time sulfamethoxazole (From Allergy Severe Rash Verified 05/21/25 10:24 Bactrim) adhesive tape (ADHESIVE TAPE) Allergy Intermediate BLISTERS Verified 05/21/25 10:24 clonidine Allergy makes pt Verified 05/21/25 10:24 hulusinate adhesive AdvReac Severe BLISTERS Verified 05/21/25 10:24 gabapentin AdvReac Severe hallucinati Verified 05/21/25 10:24 on hydromorphone (From Dilaudid) AdvReac Severe Hallucinati Verified 05/21/25 10:24 ons morphine AdvReac Severe hallucinati Verified 05/21/25 10:24 on glue AdvReac Severe BLISTERS Uncoded 05/21/25 10:24 Active Medications: Current Medications Acetaminophen (Acetaminophen 325 Mg Tablet) 650 mg PO Q6H PRN PRN Reason: Pain, Mild 1-3,fever,headache Calcium Carbonate (Calcium Carbonate 750 Mg Tab.Chew) 750 mg PO Q4H PRN PRN Reason: Heartburn Magnesium Hydroxide (Milk Of Magnesia 30 Ml Oral.Susp) 30 ml PO DAILY PRN PRN Reason: Constipation Melatonin (Melatonin 3 Mg Tablet) 6 mg PO BEDTIME PRN PRN Reason: Insomnia Sodium Chloride (0.9 % Sodium Chloride Flush 3 Ml Syringe) [facility] Medications ?Medication ?Instructions ?Recorded ?Confirmed ?Last Taken ?Type cholecalciferol (vitamin D3) 50 50 mcg PO DAILY 05/21/25 05/18/25 History mcg (2,000 unit) capsule acetaminophen 500 mg tablet 500 mg PO BID 11/07/2006/0705/18/25 History isosorbide mononitrate 30 mg 30 mg PO DAILY 10/02/21 0 05/21/25 05/18/25 History tablet,extended release 24 hr apixaban 5 mg tablet (Eliquis) 1 tab PO Q12H 02/19/22 05/21/25 05/18/25 History loperamide 2 mg capsule 2 mg PO TID PRN yes 03/30/24 05/21/25 Unknown History acarbose 25 mg tablet 25 mg PO BEDTIME 05/21/2505/18/25 History diltiazem HCl 240 mg 240 mg PO DAILY 05/21/2506/0705/18/25 History capsule,extended release 24 hr (Cartia XT) hyoscyamine sulfate 0.125 mg tablet 0.125 mg PO BID fo r indigestion 05/21/25 05/21/25 05/18/25 History insulin glargine 100 unit/mL (3 14 unit subcut DAILY 0 05/21/25 05/21/25 05/18/25 History mL) subcutaneous pen (Lantus Solostar U-100 Insulin) insulin lispro 100 unit/mL 1 sliding scale dose subcut TIDAC 05/21/25 05/21/25 05/18/25 History subcutaneous half-unit pen (Humalog Panda KwikPen (U-100)) lorazepam 0.5 mg tablet 0.5 mg PO DAILY PRN anxiety attack 05/21/25 05/21/25 Unknown History metoprolol succinate 50 mg 50 mg PO DAILY 05/21/2506/0705/18/25 History tablet,extended release 24 hr omeprazole 40 mg capsule,delayed 40 mg PO DAILY@0630 0 05/21/25 05/21/25 05/18/25 History release trazodone 50 mg tablet 50 mg PO BEDTIME 05/21/2505/18/25 History Physical Exam 2 Vital Signs and Narrative: Vital Signs: Last Vital Signs Temp 98.2 F 05/21/25 14:05 Pulse 62 05/21/25 14:05 Resp 16 05/21/25 14:05 BP 147/43 H 05/21/25 14:05 Pulse Ox 97 05/21/25 14:05 O2 Del Method Room Air 05/21/25 14:05 BMI result Body Mass Index 31.0 Const: Other: General: A&O x4, oriented to time place person and situtaion, comfortable, no pain. No reports of hallucinations at this time. Cardiac: S1, S2 auscultated with no S3/4, no MRG. Well perfused. Respiratory: Normal breath sounds auscultated throughout all lung zones, without wheezing, rales. Normal rate. GI/ : No abdominal pain on palpation, no masses or distentions. MSK: Normal ambulation without pain at bony prominences or musculature Neurological: Normal neurological examination on overview, without obvious CN II-XII abnormalities. General: cooperative, healthy appearing, comfortable, no acute distress and alert Nutritional Appearance: well nourished Orientation/consciousness: o riented to person, oriented to place and oriented to time Limitations: a ltered mental status Neuro: General: oriented to person, oriented to place and oriented to time Psych: Appearance: grossly normal and well kempt Mental Status: mental status grossly normal Speech and movement: Normal speech and movement present and Clear speech present Affect: Labile affect present Attitude: c ooperative Thought content: Normal thought content present Insight: Fair insight present (Psych) Judgement: Fair judgement present (Psych) Results Labs 05/21/25 10:41 05/21/25 10:41 Labs: Laboratory Results - last 24 hr 05/21/25 05/21/25 10:41 11:13 MCV 97.2 MCH 31.1 MCHC 32.0 RDW 13.5 Plt Count 210 MPV 10.5 Immature Gran % (Auto) 0.2 Neut % (Auto) 70.4 Lymph % (Auto) 17.9 L [place] % (Auto) 9.7 Eos % (Auto) 1.6 Baso % (Auto) 0.2 Lymph # (Auto) 1.1 L [place] # (Auto) 0.6 Eos # (Auto) 0.1 Baso # (Auto) 0.0 Abs Immat Gran (auto) 0.01 Absolute Neuts (auto) 4.4 Absolute Nucleated RBC 0.000 Nucleated RBC % (auto) 0.0 ESR 64 H PT 12.6 H INR 1.1 Anion Gap 15 Estim Creat Clear Calc 50.7 Estimated GFR > 60 Random Glucose 191 H Lactic Acid 1.4 Calcium 9.5 Magnesium 1.6 Total Bilirubin 0.2 AST 29 ALT 18 Alkaline Phosphatase 49 C-Reactive Protein < 0.10 Total Protein 7.3 Albumin 4.2 Urine Color Yellow Urine Appearance Clear Urine pH 8.5 Ur Specific [place] 1.010 Urine Protein Negative Urine Glucose (UA) Negative Urine Ketones Negative Urine Blood Negative Urine Nitrite Negative Ur Leukocyte Esterase Negative Imaging Radiologist's Impressions: Impressions Chest CT 05/21/25 11:07 IMPRESSION: 1. Again seen is a 1.6 x 1.2 cm left upper lobe mass, highly suspicious for neoplasm. 2. Large amount of stool throughout the colon. Electronically signed by: Alexey Vale MD 05/21/2025 01:05 PM EDT RP Abdomen/Pelvis CT 05/21/25 12:07 IMPRESSION: 1. Again seen is a 1.6 x 1.2 cm left upper lobe mass, highly suspicious for neoplasm. 2. Large amount of stool throughout the colon. Electronically signed by: Alexey Vale MD 05/21/2025 01:05 PM EDT RP Head CT 05/21/25 12:13 IMPRESSION: No definite evidence of intracranial hemorrhage. Evaluation is somewhat limited by the presence of intravenous contrast from prior contrast enhanced CT of the chest, abdomen, and pelvis. 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 transplanted heart: [place] heart Associated angina: without angina Qualified Code(s): I25.810 - Atherosclerosis of coronary artery bypass graft(s) without angina pectoris Status: Acute (8) S/P TAVR (transcatheter aortic valve replacement): Status: Acute (9) Mixed dyslipidemia: Status: Acute (10) Depression with anxiety: Status: Acute (11) GERD without esophagitis: Status: Acute (12) Pancreatic insufficiency: Status: Acute (13) Constipation: Qualifiers: Constipation type: drug induced constipation Qualified Code(s): K59.03 - Drug induced constipation Status: Acute Plan Ms. Onofre is a pleasant 80 year old female, with a background medical history of CAD s/p CABGx2 (2018), aortic stenosis s/p TAVR, PPM placement for complete heart block complicated by PPM pocket infection s/p infective clearance and placement of wireless PPM 3 weeks ago, atrial tachycardia 04/2025, HTN, HLD, type II DM, stage IV NSCLL in remission, new pulmonary nodule recently identified, anxiety & depression, presenting to clinic at the request of family due to change in mental status, admitted for toxic encephalopathy likely due to medication side effect (buspirone/ pramipexole) with visual hallucinations. Toxic Encepohalopathy Visual Hallucinations Restless Leg Syndrome Medication Side Effects Likely due to medication side effects. Suspect pramipexole > buspirone Patient also on opiods in outpatient setting, which is likely contributory. Lab work, Imaging non concerning for red flag etiologies. No evidence of infection or precipitating etiology. PLAN - HOLD pramipexole for now - Continue buspirone for now - Monitor for mental status changes/ improvement - B12/ B1 level to be ordered - TSH to be ordered - Continue folic acid 1mg OD PO New Pulmonary Mass Lung cancer stage IV in remission Previously in remission. CT revealing possible recurrence with mass in [place] concerning for malignancy. PLAN - Oncology consultation as inpatient to ease establishment outpatient plan - FU PCP outpatient Aortic valve replacement via TAVR Bradycardia s/p PPM placement *(complicated by pocket infection, now resolved with wireless PPM placement {03/2025}) Atrial Fibrillation No active issue currently. 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 PLAN - Continue acarbose 25mg OD PO - Continue glargine 14u OD am, inj SQ - Continue Metformin 1000mg BID PO - Check POC glucose TID preprandially and before bed - Hypoglycemia protocol added CAD s/p CABG x2 (2018) HTN HLD PLAN - Continue diltiazem 240mg OD PO XR - Metoprolol 50mg OD PO XR - Atorvastatin 80mg OD PO - Imdur 30mg OD PO ER - Lisinopril 2.5mg OD PO MDD & BO PLAN - Continue buspirone 5mg TID PO - Continue home PRN lorazepam 0.5mg - Sertraline 150mg OD PO Functional vs drug induced Constipation GERD Possibly due to opioid use in outpatient setting PLAN - Encourage PO intake and hydration - Miralax - Senna - Continue omeprazole 40mg OD PO Pancreatic insufficiency PLAN - Continue Zenpep PO TID Chronic pain disorder PLAN - Continue outpatient oxycodone 10mg q6-8 hours PRN Insomnia PLAN - Continue trazodone 50mg OD PO QUALITY METRICS: - FULL CODE - DVT PROPHYLAXIS: Apixaban 5mg BID PO - DISPOSITION: Observation with possible DC within 24 hours Total time managing care of this patient today: 45 minutes. Quality Stroke Does the patient have a stroke diagnosis?: No VTE Prior VTE?: No VTE Risk Level:: Medical - low VTE Device Contraindication: Treatment Not Indicated VTE Drug Contraindication: Treatment Not Indicated
--- NOTE | 2025-05-21 14:57 | PHA.MEDREC ---
Addendum entered by Andrew Ac PharmD 05/21/25 15:01: reviewed Original Note: Pharmacy Consult ? Medication Reconciliation Pharmacy has completed the medication reconciliation. Spoke with pt and she had on hand a list of medication and she was able to verbally confirm her medications with me.
[2025-05-21 17:17] LABS: Glucose, Whole Blood 280 mg/dL (60-115)
[2025-05-21] MEDS: oxyCODONE HCl Immed Release 5 MG TABLET 10 MG PO (17:23)
[2025-05-21 20:15] LABS: Folate 16.2 ng/mL (> or = 4.0); Vitamin B12 257 pg/mL (200-900)
[2025-05-21 22:20] LABS: Glucose, Whole Blood 110 mg/dL (60-115)
[2025-05-22] VITALS (8 sets, daily range): BP systolic 137–169; BP diastolic 50–58; PULSE 63–90; RESP 14–20; TEMP 36.5–36.7; O2SAT 97–98
--- NOTE | 2025-05-22 01:39 | PC.NURSE ---
Patient woke confused attempting to get up from a stretcher bed. Patient states she would like to use a restroom. Patient ambulated to the restroom and back to ED room with 1 assist. Patient is at risk of falling d/t confusion and poor safety awareness, hospital bed obtained and patient was transferred to hospital bed with bed alarm engaged for safety/fall preventions. Patient was given a sandwich and diet sha keith, tolerating food and fluids without issues. Call steven in patient's reach.
[2025-05-22 06:12] LABS: MANUAL DIFF FLAG NO
[2025-05-22 06:13] LABS: Hematocrit 32.6 % (37.0-47.0); Hemoglobin 10.4 g/dl (12.0-16.0); Imm Gran Abs Auto 0.01 X10*3/uL (0.00-0.03); Imm Gran Pct Auto 0.2 % (0.0-0.4); Lymphocytes Absolute Auto 0.9 X10*3/uL (1.2-4.9); Mean Corpuscular HGB Conc 31.9 g/dl (31.0-35.0); Mean Corpuscular Hemoglobin 31.1 pg (27.0-33.0); Mean Corpuscular Volume 97.6 fL (80.0-98.0); NRBC Abs Auto 0.000 X10*3/uL (0.0-0.012); NRBC Pct Auto 0.0 /100WBC (0.0-0.2); Platelet Count 216 X10*3/uL (160-400); Red Blood Count 3.34 X10*6/uL (4.20-5.50); White Blood Count 5.9 X10*3/uL (4.8-10.8)
[2025-05-22 06:35] LABS: Anion Gap 13 (12-20); Blood Urea Nitrogen 20 mg/dL (9-16); Calcium 9.8 mg/dL (8.4-10.2); Carbon Dioxide 25 mmol/L (22-29); Chloride 107 mmol/L (96-108); Creatinine Clr Calc Pharmacy 41.9; Estimated Glomerular Filt Rate 55; Potassium 5.0 mmol/L (3.3-5.1); Sodium 140 mmol/L (135-145)
[2025-05-22 07:28] LABS: Glucose, Whole Blood 170 mg/dL (60-115)
[2025-05-22] MEDS: Insulin Glargine,Hum.rec.anlog 100 UNIT/ML 10 ML VIAL 14 UNIT SUBCUT (07:47)
[2025-05-22] MEDS: Metoprolol Succinate ER 50 MG TAB.ER.24H PO (07:49)
[2025-05-22] MEDS: dilTIAZem HCL CD 240 MG CAP.ER.DEG PO (07:49)
[2025-05-22] MEDS: 0.9 % Sodium Chloride Flush 3 ML SYRINGE IVFLUSH (07:51)
[2025-05-22 13:11] LABS: Glucose, Whole Blood 179 mg/dL (60-115)
--- NOTE | 2025-05-22 13:31 | MHC.CM.PN ---
pt dcd home self care prior tobeing seen by cm
--- NOTE | 2025-05-22 13:54 | PM.DS ---
DS: Providers Provider Date of Service: 05/21/25 Date of admission: 05/21/25 14:19 Date of discharge: 05/22/25 Primary care physician: Unknown Physician Admitting clinician: Gonzalo Vickers Attending physician on discharge: Gonzalo Vickers DS: Diagnosis Discharge Diagnosis (1) Toxic encephalopathy: Status: Acute (2) Hallucinations: Status: Acute (3) Restless leg syndrome: Status: Acute (4) Mass of upper lobe of left lung: Status: Acute (5) Diabetes mellitus with hyperglycemia, with long-term current use of insulin: Status: Acute (6) Insulin long-term use: Status: Acute (7) CAD (coronary artery disease): Status: Acute (8) S/P TAVR (transcatheter aortic valve replacement): Status: Acute (9) Mixed dyslipidemia: Status: Acute (10) Depression with anxiety: Status: Acute (11) GERD without esophagitis: Status: Acute (12) Pancreatic insufficiency: Status: Acute (13) Constipation: Status: Acute DS: Summary Hospital Course Hospital Course: Chief Complaint: Confusion & visual hallucinations The patient reports not feeling like herself over the past few days. This morning, she approached her 's car, and identified a 'person' in the front seat of the car, and was asking him to 'get out of the front seat'; she identifies that this was a visual hallucination. Currently, she does not endorse confusion, and is alert and oriented to person, place, time and situation. She reports presenting to the hospital because her children encouraged her to do so. She reports new changes to her medications, including buspirone and pramipexole dose increases (for her restless leg syndrome). She also endorses a months' worth of increased urinary frequency, abdominal heaviness, urgency and incomplete voiding. Denies fevers chills, rigors. Denies hematuria, pyuria. Reported to ED staff that she experienced flank pain as well. ED WORKUP Unremarkable findings on blood work performed in ED including CBC, chemistry, lactic acid. Blood cultures were drawn; pending Troponin negative UA unremarkable, without leukocytes or nitrites ECG unremarkable. CT Head performed (non-con): no evidence of intracranial hemorrhage, lesions or mass effect. CT-AP w/t IV contrast: large stool burden in colon. 1.6x1.2 cm left upper pulmonary lobe mass was also identified concerning for neoplasm. Ms. Gladu is a pleasant 80 year old female, with a background medical history of CAD s/p CABGx2 (2018), aortic stenosis s/p TAVR, PPM placement for complete heart block complicated by PPM pocket infection s/p infective clearance and placement of wireless PPM 3 weeks ago, atrial tachycardia 04/2025, HTN, HLD, type II DM, stage IV NSCLL in remission, new pulmonary nodule recently identified, anxiety & depression, presenting to clinic at the request of family due to change in mental status, admitted for toxic encephalopathy likely due to medication side effect (buspirone/ pramipexole) with visual hallucinations. The patient's mental status is back to normal on day of discharge. Contacted and commiunicated with her daughter and grandson to recap plan and recommendations. Shared decision making with family; discharge home with close outpatient followup. Status at Discharge Cognitive/behavioral status at discharge: A&O x4 Functional status at discharge: independent ambulation Overall status at discharge: patient is back to baseline Time Attestation Total time managing care of this patient today: 35 mintues. Discharge Coordination Time (in mins): 15 Quality: Safe Use of Opioids Does Pt have an Active Cancer Diagnosis on the Problem List?: No Quality: Stroke Does the patient have a stroke diagnosis?: No Physical Exam Exam: Exam: General: A&O x4, o riented to time pl radha person and sit utaion, comfortabl e, no pain. No rep orts of hallucinat ions at this time. Cardiac: S1, S2 auscultated with n o S3/4, no MRG. We ll perfused. Resp iratory: Normal br eath sounds auscul tated throughout a ll lung zones, wit hout wheezing, ral es. Normal rate. GI/ : No abdomin al pain on palpati on, no masses or d istentions. MSK: Normal ambulation without pain at eric ny prominences or musculature Neuro logical: Normal ne urological examina tion on overview, without obvious CN II-XII abnormalit ies. General: cooperative, healt hy appearing, comf ortable, no acute distress and alert Nutritional Appe arance: well petra shed Orientation/ consciousness: kellen ented to person, o riented to place a nd oriented to lois e Limitations: al tered mental statu s Neuro: General: oriented to person, oriente d to place and kellen ented to time Psych: Appearance: grossl y normal and well kempt Mental Stat us: mental status grossly normal Sp eech and movement: Normal speech and movement present and Clear speech p resent Affect: La bile affect presen t Attitude: coope rative Thought co ntent: Normal thou ght content presen t Insight: Fair i nsight present (Ps yc) Judgement: F air judgement pres ent (Psych) Vital Signs: Vital Signs: Last Vital Signs Temp 97.9 F 05/22/25 13:53 Pulse 63 05/22/25 13:53 Resp 16 05/22/25 13:53 BP 153/50 H 05/22/25 13:53 Pulse Ox 97 05/22/25 13:53 O2 Del Method Room Air 05/22/25 13:53 BMI result Body Mass Index 31.0 DS: Data Data Completed and Pending Completed studies during hospitalization [Text1]: Procedures Excision of Esophagus, Via Natural or Artificial Opening Endoscopic, Diagnostic (12/08/20) Excision of Jejunum, Via Natural or Artificial Opening Endoscopic, Diagnostic (12/08/20) Excision of Sigmoid Colon, Via Natural or Artificial Opening Endoscopic, Diagnostic (07/13/22) Excision of Stomach, Pylorus, Via Natural or Artificial Opening Endoscopic, Diagnostic (12/08/20) Inspection of Upper Intestinal Tract, Via Natural or Artificial Opening Endoscopic (09/02/21) Transfusion of Nonautologous Red Blood Cells into Peripheral Vein, Percutaneous Approach (09/02/21) Labs on day of discharge: Laboratory Results - last 24 hr 05/21/25 05/21/25 05/21/25 17:12 19:23 22:06 WBC RBC Hgb Hct MCV MCH MCHC RDW Plt Count MPV Immature Gran % (Auto) Neut % (Auto) Lymph % (Auto) [place] % (Auto) Eos % (Auto) Baso % (Auto) Lymph # (Auto) [place] # (Auto) Eos # (Auto) Baso # (Auto) Abs Immat Gran (auto) Absolute Neuts (auto) Absolute Nucleated RBC Nucleated RBC % (auto) Sodium Potassium Chloride Carbon Dioxide Anion Gap BUN Creatinine Estim Creat Clear Calc Estimated GFR POC Glucose 280 H 110 Random Glucose Calcium Vitamin B12 257 Folate 16.2 TSH 0.90 05/22/25 05/22/25 05/22/25 06:02 07:25 13:07 WBC 5.9 RBC 3.34 L Hgb 10.4 L Hct 32.6 L MCV 97.6 MCH 31.1 MCHC 31.9 RDW 13.7 Plt Count 216 MPV 10.2 Immature Gran % (Auto) 0.2 Neut % (Auto) 72.8 Lymph % (Auto) 16.0 L [place] % (Auto) 9.0 Eos % (Auto) 1.7 Baso % (Auto) 0.3 Lymph # (Auto) 0.9 L [place] # (Auto) 0.5 Eos # (Auto) 0.1 Baso # (Auto) 0.0 Abs Immat Gran (auto) 0.01 Absolute Neuts (auto) 4.3 Absolute Nucleated RBC 0.000 Nucleated RBC % (auto) 0.0 Sodium 140 Potassium 5.0 Chloride 107 Carbon Dioxide 25 Anion Gap 13 BUN 20 H Creatinine 0.98 Estim Creat Clear Calc 41.9 Estimated GFR 55 POC Glucose 170 H 179 H Random Glucose 190 H Calcium 9.8 Vitamin B12 Folate TSH Preliminary micro results at discharge 05/21/25 11:13 Blood Culture - Preliminary Blood - Venous No growth after 24 hours. 05/21/25 11:13 Blood Culture - Preliminary Blood - Venous No growth after 24 hours. Discharge Plan Discharge Anticipated Discharge Date/Time: 05/22/25 13:01 Patient Disposition: Home, Self-Care Discharge Diagnosis: Ms. Onofre is a pleasant 80 year old female, with a background medical history of CAD s/p CABGx2 (2018), aortic stenosis s/p TAVR, PPM placement for complete heart block complicated by PPM pocket infection s/p infective clearance and placement of wireless PPM 3 weeks ago, atrial tachycardia 04/2025, HTN, HLD, type II DM, stage IV NSCLL in remission, new pulmonary nodule recently identified, anxiety & depression, presenting to clinic at the request of family due to change in mental status, admitted for toxic encephalopathy likely due to medication side effect (buspirone/ pramipexole) with visual hallucinations. Referrals: Physician,Unknown J [Primary Care Provider, Medical] - 1 Week Discharge Medications: Continued clotrimazole 2 % cream 1 appful vaginal BEDTIME PRN (Reason: VAGINAL ITCH) Qty: 21 1RF (DME) FreeStyle [place] 2 Magnolia Misc See Rx Instructions .Route Qty: 1 0RF Rx Instructions: As directed azelastine 137 mcg (0.1 %) aerosol,spray 2 spray intranasal BID PRN (Reason: postnasal drip) Qty: 90 0RF Rx Instructions: administer into each nostril (DME) pen needle, diabetic [BD Ultra-Fine Orig Pen Needle] 29 gauge x 1/2 needle See Rx Instructions .Route Qty: 100 0RF Rx Instructions: Use to inject insulin once a day (DME) FreeStyle [place] 2 Sensor Kit See Rx Instructions .Route Qty: 6 4RF Rx Instructions: check glucose twice a day as directed (DME) FreeStyle [place] 3 Plus Sensor Device See Rx Instructions .Route Qty: 6 3RF Rx Instructions: every 15 days (DME) FreeStyle [place] 3 [place]olia Misc See Rx Instructions .Route Qty: 1 0RF Rx Instructions: continuous (DME) pen needle, diabetic 32 gauge x 5/32 needle See Rx Instructions .Route Qty: 100 2RF Rx Instructions: Use three times daily for BD olga 2nd gen (DME) lancets [OneTouch Delica Plus Lancet] 33 gauge misc See Rx Instructions .Route Qty: 300 3RF Rx Instructions: test blood sugar TID (DME) OneTouch Ultra Test Strip See Rx Instructions .Route Qty: 300 3RF Rx Instructions: test blood sugar TID (DME) blood-glucose meter [OneTouch Ultra2 Meter] Misc See Rx Instructions .Route Qty: 1 0RF Rx Instructions: test blood sugar TID lisinopril 2.5 mg tablet 2.5 mg PO DAILY Qty: 90 2RF atorvastatin 80 mg tablet 80 mg PO BEDTIME Qty: 90 1RF sertraline [Zoloft] 100 mg tablet 150 mg PO DAILY 90 Days Qty: 135 0RF Zenpep 10,000-32,000 -42,000 unit capsule,delayed release(DR/EC) 1 cap PO TID 30 Days Qty: 90 3RF Eliquis 5 mg tablet 1 tab PO Q12H Zyrtec 10 mg Capsule 10 mg PO DAILY Qty: 30 3RF folic acid 1 mg tablet 1 mg PO DAILY 90 Days Qty: 90 2RF oxycodone 10 mg Tablet 10 mg PO Q6-8H PRN (Reason: Severe Pain (Scale Score 7-10)) Qty: 90 0RF Rx Instructions: Partial Fill upon patient request. trazodone 50 mg tablet 50 mg PO BEDTIME metoprolol succinate 50 mg tablet extended release 24 hr 50 mg PO DAILY diltiazem HCl [Cartia XT] 240 mg capsule,extended release 24hr 240 mg PO DAILY omeprazole 40 mg capsule,delayed release(DR/EC) 40 mg PO DAILY@0630 lorazepam 0.5 mg tablet 0.5 mg PO DAILY PRN (Reason: anxiety attack) hyoscyamine sulfate 0.125 mg tablet 0.125 mg PO BID acarbose 25 mg tablet 25 mg PO BEDTIME Rx Instructions: with dinner insulin glargine [Lantus Solostar U-100 Insulin] 100 unit/mL (3 mL) insulin pen 14 unit subcut DAILY insulin lispro [Humalog Panda KwikPen U-100] 100 unit/mL insulin pen, half-unit 1 sliding scale dose subcut TIDAC cholecalciferol (vitamin D3) 50 mcg (2,000 unit) capsule 50 mcg PO DAILY loperamide 2 mg capsule 2 mg PO TID PRN (Reason: yes) acetaminophen 500 mg tablet 500 mg PO BID Rx Instructions: Patient takes scheduled BID (in pill box) (DME) Donchriss mark Misc See Rx Instructions .Route Qty: 1 0RF Rx Instructions: As directed isosorbide mononitrate 30 mg tablet extended release 24 hr 30 mg PO DAILY metformin 1,000 mg tablet 1,000 mg PO BID Qty: 180 3RF (DME) pen needle, diabetic [CareTouch Pen Needle] 32 gauge x 5/32 needle See Rx Instructions .Route Qty: 400 3RF Rx Instructions: 4 daily subcutaneous for insulin administration ondansetron 4 mg tablet,disintegrating 4 mg PO Q8H PRN (Reason: nausea and vomiting) 30 Days Qty: 30 1RF ferrous fumarate 325 mg (106 mg iron) tablet 325 mg PO DAILY Qty: 90 2RF buspirone 5 mg tablet 5 mg PO TID Qty: 90 0RF pramipexole 1 mg tablet 1 mg PO BEDTIME Qty: 30 1RF Discharge Orders: Discharge Order (Routine); Ordered 05/22/25 Ordered By: Gonzalo Vickers Diet: Advance to usual diet Activity on Discharge: As tolerated Stand Alone Forms: Patient Portal Discharge page Print Language: Maori Care Plan Goals: - Follow up with PCP within 1 week of discharge - Follow up with Oncology Dr. Perdue outpatient for follow up on new lung mass that could represent new malignancy/ recurrence - Regarding pramipexole, reduce dose back to baseline use 0.25mg 1-2 per day Health Concerns: As above Plan of Treatment: - Follow up with PCP within 1 week of discharge - Follow up with Oncology Dr. Perdue outpatient for follow up on new lung mass that could represent new malignancy/ recurrence - Regarding pramipexole, reduce dose back to baseline use 0.25mg 1-2 per day Assessment: as above
== END 2025-05-22 14:00 | disposition home or self-care (01) ==
LOC: HO.ED 13:19 → HO.IMC 14:39 → HO.EDOVER 14:49
PROVIDERS: Physician Assistant; Admitting Provider Hospitalist; Emergency Provider Emergency Medicine Emergency Medical Services; Visit Provider Hospitalist
DX: G92.9 Unspecified toxic encephalopathy (principal); R41.82 Altered mental status, unspecified; R91.8 Other nonspecific abnormal finding of lung field; E11.65 Type 2 diabetes mellitus with hyperglycemia; I25.10 Atherosclerotic heart disease of native coronary artery without angina pectoris; I10 Essential (primary) hypertension; R30.0 Dysuria; R35.0 Frequency of micturition; R33.9 Retention of urine, unspecified; R39.15 Urgency of urination; G25.81 Restless legs syndrome; E78.2 Mixed hyperlipidemia; K21.9 Gastro-esophageal reflux disease without esophagitis; F41.8 Other specified anxiety disorders; K86.89 Other specified diseases of pancreas; K59.03 Drug induced constipation; I25.810 Atherosclerosis of coronary artery bypass graft(s) without angina pectoris; Z79.4 Long term (current) use of insulin; Z95.2 Presence of prosthetic heart valve; Z85.118 Personal history of other malignant neoplasm of bronchus and lung; Z95.1 Presence of aortocoronary bypass graft; Z79.899 Other long term (current) drug therapy
CPT/HCPCS: 36415; 70450; 71260; 74177; 80048; 80053; 81003; 82607; 82746; 82947; 83605; 83735; 84443; 84484; 85025; 85610; 85652; 86140; 87040; 93005; 96361; 96365; 97162; 99222; 99285; J2543; Q9967

== ENCOUNTER → 2025-05-21 10:19 | Outpatient (BNV) | payer MEDICARE, SELFPAY | PROVIDERS: Emergency Provider Emergency Medicine Emergency Medical Services; Visit Provider Internal Medicine | DX: R94.31 Abnormal electrocardiogram [ECG] [EKG] (principal); R41.82 Altered mental status, unspecified | CPT/HCPCS: 93010 ==

== ENCOUNTER → 2025-05-21 10:34 | Outpatient (BNV) | payer MEDICARE, SELFPAY | PROVIDERS: Emergency Provider Emergency Medicine Emergency Medical Services; Visit Provider Radiology Diagnostic Radiology | DX: R41.82 Altered mental status, unspecified (principal); R91.8 Other nonspecific abnormal finding of lung field; R10.84 Generalized abdominal pain | CPT/HCPCS: 70450; 71260; 74177 ==

== ENCOUNTER → 2025-05-21 14:19 | Outpatient (BNV) | payer MEDICARE, SELFPAY | PROVIDERS: Admitting Provider Hospitalist; Emergency Provider Emergency Medicine Emergency Medical Services; Visit Provider Hospitalist | DX: G92.9 Unspecified toxic encephalopathy (principal); R44.3 Hallucinations, unspecified; G25.81 Restless legs syndrome; R91.8 Other nonspecific abnormal finding of lung field; E11.65 Type 2 diabetes mellitus with hyperglycemia; Z79.4 Long term (current) use of insulin; I25.810 Atherosclerosis of coronary artery bypass graft(s) without angina pectoris; Z95.2 Presence of prosthetic heart valve; E78.2 Mixed hyperlipidemia; F41.8 Other specified anxiety disorders; K21.9 Gastro-esophageal reflux disease without esophagitis | CPT/HCPCS: 99222 ==

== ENCOUNTER 2025-05-25 10:19 | Inpatient (IN) | payer MEDICARE, OTHER, SELFPAY ==
[2025-05-25] VITALS (8 sets, daily range): BP systolic 129–192; BP diastolic 39–85; PULSE 58–74; RESP 16–19; TEMP 36.4–37.2; O2SAT 95–98; BMI 32.2
--- NOTE | ~2025-05-25 | CT_ITS ---
CLINICAL HISTORY: fall, on thinners CT head without contrast Comparison: CT/SR - CT HEAD WITHOUT IV CONTRAST - 05/21/25 12:13 EDT Findings: Motion artifact somewhat limits interpretation. No evidence of acute territorial infarct. There is patchy low density in the periventricular and subcortical white matter. Diffuse volume loss is noted. No hydrocephalus. No hemorrhage, mass effect, mass lesion or midline shift. No abnormal extra-axial fluid. No calvarial fracture. Paranasal sinuses and mastoid air cells are clear. Impression: No acute intracranial process. Chronic changes as detailed. Motion artifact somewhat limits interpretation. This document has been electronically signed by: Timothy Ansari MD on 05/25/2025 21:44:53
--- NOTE | ~2025-05-25 | CT_ITS ---
CLINICAL HISTORY: fall, pain CT cervical spine without contrast Comparison: CT/SR - CT ANGIO HEAD NECK - 07/04/24 21:16 EDT Findings: There is straightening of the normal cervical lordosis. No fracture or acute malalignment. Multilevel degenerative changes with disc space narrowing throughout the cervical spine. The facet joints are normally imbricated. No prevertebral soft tissue edema. Lung apicies demonstrate no acute process. Moderate centrilobular emphysema. Impression: Multilevel degenerative changes without evidence of acute fracture or acute malalignment. This document has been electronically signed by: Timothy Ansari MD on 05/25/2025 21:41:28
--- NOTE | 2025-05-25 10:35 | ED.GENADULT ---
HPI - General Adult General Chief complaint: General Medical Stated complaint: Hallucinations Time Seen by Provider: 05/25/25 10:57 Source: patient and family Mode of arrival: ambulatory Limitations: no limitations History of Present Illness ED Provider: Dr. Jaky Sandoval HPI narrative: Patient comes to the emergency room accompanied by her daughter. The main complaint today are ongoing hallucinations. Patient was discharged from the hospital 2 days ago, patient was evaluated for encephalopathy, patient was diagnosed with a new neoplasm in the lung. Patient states that physically she has no complaints. Patient states that even before she was admitted to the hospital, she was already having hallucinations. Patient states that they have not changed. According to the patient's daughter, patient was recently started on buspirone and in her dose of pramipexole for restless legs syndrome has recently been increased. The patient's daughter states that the patient lives at home with her . They do not seem to be in good terms. However, patient states that she is seeing people camping in her backyard, animals being sacrificed. People in her room. Patient has been calling the police. Patient states that she is upset but now is starting to understand that she is having hallucinations and she is seeing things that others can not. Patient states that this is very disturbing for her. The patient's daughter states the patient has been very fixed on very minute physical findings such as sprinkles and patient gets hyper fixated on this and very anxious triggered and panic attacks which they are also new for the patient. Patient keeps saying ?I can not take it anymore?, no actual verbalized SI or HI statements. However, the patient does have history of suicide attempt which required ICU stay at [facility] several years ago. The patient's daughter states that they are not sure if her new medications that were started in late April have something to do with this hallucinations including buspirone, lorazepam, pramipexole. However, she decided to stop all of patient's medications including her insulin and Eliquis Related Data Home Medications ?Medication ?Instructions ?Recorded ?Confirmed cholecalciferol (vitamin D3) 50 50 mcg PO DAILY 10/26/20 05/25/25 mcg (2,000 unit) capsule acetaminophen 500 mg tablet 500 mg PO BID 11/07/20 05/25/25 isosorbide mononitrate 30 mg 30 mg PO DAILY 10/02/21 05/25/25 tablet,extended release 24 hr loperamide 2 mg capsule 2 mg PO TID PRN yes 03/30/24 05/25/25 diltiazem HCl 240 mg 240 mg PO DAILY 05/21/25 05/25/25 capsule,extended release 24 hr (Cartia XT) hyoscyamine sulfate 0.125 mg tablet 0.125 mg PO BID PRN for indigestion 05/21/25 05/25/25 insulin glargine 100 unit/mL (3 14 unit subcut DAILY 05/21/25 05/25/25 mL) subcutaneous pen (Lantus Solostar U-100 Insulin) insulin lispro 100 unit/mL 1 sliding scale dose subcut TIDAC 05/21/25 05/25/25 subcutaneous half-unit pen (Humalog Panda KwikPen (U-100)) omeprazole 40 mg capsule,delayed 40 mg PO DAILY@0630 05/21/25 05/25/25 release trazodone 50 mg tablet 50 mg PO BEDTIME 05/21/25 05/25/25 metoprolol succinate 50 mg 150 mg PO BEDTIME 05/25/25 05/25/25 tablet,extended release 24 hr Previous Rx's ?Medication ?Instructions ?Recorded clotrimazole 2 % vaginal cream 1 appful vaginal BEDTIME PRN 10/31/21 VAGINAL ITCH #21 grams Donut pillow #1 ea 08/07/22 cetirizine 10 mg capsule (Zyrtec) 10 mg PO DAILY #30 caps 08/22/22 flash glucose scanning reader #1 ea 11/11/22 (FreeStyle [place] 2 Adah) azelastine 137 mcg (0.1 %) nasal 2 spray intranasal BID PRN 03/15/24 spray postnasal drip #90 mL pen needle, diabetic 29 gauge x #100 ea 12/11/24 1/ (BD Ultra-Fine Original Pen Needle) folic acid 1 mg tablet 1 mg PO DAILY 90 days #90 tabs 12/14/24 flash glucose sensor (FreeStyle #6 ea 02/10/25 [place] 2 Sensor kit) FreeStyle [place] 3 Plus Sensor #6 ea 02/17/25 (blood-glucose sensor) FreeStyle [place] 3 Adah #1 ea 02/17/25 (blood-glucose,senior caregiver,cont) OneTouch Delica Plus Lancet 33 #300 ea 02/26/25 gauge (lancets) OneTouch Ultra Test (blood sugar #300 ea 02/26/25 diagnostic) OneTouch Ultra2 Meter #1 ea 02/26/25 (blood-glucose meter) pen needle, diabetic 32 gauge x #100 ea 02/26/25 lisinopril 2.5 mg tablet 2.5 mg PO DAILY #90 tabs 03/10/25 metformin 1,000 mg tablet 1,000 mg PO BID #180 tabs 03/24/25 pen needle, diabetic 32 gauge x #400 ea 03/24/25 (CareTouch Pen Needle) atorvastatin 80 mg tablet 80 mg PO BEDTIME #90 tabs 03/26/25 sertraline 100 mg tablet (Zoloft) 150 mg (1.5 x 100 mg) PO DAILY 3 03/26/25 months #135 tabs ferrous fumarate 325 mg (106 mg 325 mg PO DAILY #90 tabs 05/03/25 iron) tablet ondansetron 4 mg disintegrating 4 mg PO Q8H PRN nausea and 05/03/25 tablet vomiting 30 days #30 tabs Eliquis 5 mg tablet (apixaban) 5 mg PO Q12H #180 tabs 05/27/25 acarbose 25 mg tablet 25 mg PO BEDTIME #90 tabs 05/27/25 [id number] 1 cap PO QID 30 days #120 caps 05/27/25 10,000-32,000-42,000 unit capsule,delayed rel (Zenpep) Allergies Allergy/AdvReac Type Severity Reaction Status Date / Time sulfamethoxazole (From Allergy Severe Rash Verified 05/25/25 10:31 Bactrim) adhesive tape (ADHESIVE TAPE) Allergy Intermediate BLISTERS Verified 05/25/25 10:31 clonidine Allergy makes pt Verified 05/25/25 10:31 hulusinate adhesive AdvReac Severe BLISTERS Verified 05/25/25 10:31 gabapentin AdvReac Severe hallucinati Verified 05/25/25 10:31 on hydromorphone (From Dilaudid) AdvReac Severe Hallucinati Verified 05/25/25 10:31 ons morphine AdvReac Severe hallucinati Verified 05/25/25 10:31 on glue AdvReac Severe BLISTERS Uncoded 05/21/25 10:24 Review of Systems Review of Systems: Constitutional : No Weight loss, No Fever, No Chills, No Night Sweats, No Fatigue, No Malaise ENT/Mouth : No Hearing loss, No Ear Pain, No Nasal Congestion, No Sinus Pain, No Hoarseness, No sore throat, No Rhinorrhea, No Swallowing Difficulty Eyes: No Eye Pain, No Swelling, No Redness, No Foreign Body, No Discharge, No Vision Changes Cardiovascular : No Chest Pain, No SOB, No Dyspnea on Exertion, No Orthopnea, No Edema, No Palpitations Respiratory : No Cough, No Sputum, No Wheezing, No Smoke Exposure, No Dyspnea Gastrointestinal : No Nausea, No Vomiting, No Diarrhea, No Constipation, No abdominal Pain, No Hematochezia, No Melena Genitourinary : no irregular bleeding, No Dysuria, No Urinary Frequency, No Hematuria, No Urinary Incontinence, No Urgency, No Flank Pain, No Urinary Flow Changes, No Hesitancy Musculoskeletal : No joint pain, No Myalgias, No Joint Swelling Skin : No Skin Lesions, No rash Neuro : No Weakness, No Numbness, No Paresthesias, No Loss of Consciousness, No Dizziness, No Headache Psych : Complaining of new onset anxiety and panic attacks, complaining of visual hallucinations Heme/Lymph: No Bruising, No Bleeding,No Lymphadenopathy Endocrine : No Polyuria, No Polydipsia, No Temperature Intolerance PMFSH Past Medical History Medical History Depression with anxiety Hx of aortic valve stenosis Depression Diabetes mellitus with hyperglycemia, with long-term current use of insulin Swelling of knee joint, left Hx of sigmoidoscopy Metformin adverse reaction Adenocarcinoma of left lung (~2021) Aortic stenosis Atypical migraine Transient cerebral ischemia AVM (arteriovenous malformation) of colon Normocytic anemia Nonrheumatic mitral valve regurgitation Nonrheumatic aortic (valve) stenosis Obesity History of blood transfusion Barretts esophagus AAA (abdominal aortic aneurysm) (~2008) Bleeding hemorrhoids Anemia Arthritis On anticoagulant therapy (~10/2020) On beta ashleigh at home Pulmonary nodules Mixed dyslipidemia Vitamin B12 deficiency GIB (gastrointestinal bleeding) COPD (chronic obstructive pulmonary disease) Bilateral pulmonary embolism (~10/2020) Restless leg syndrome Irritable bowel syndrome with both constipation and diarrhea GERD without esophagitis CAD (coronary artery disease) Essential hypertension Surgical History S/P TAVR (transcatheter aortic valve replacement) History of lung biopsy (~2021) History of esophagogastroduodenoscopy (EGD) (~2020) History of hysterectomy History of colonoscopy (~2018) History of coronary artery bypass graft x 2 (~2017) History of total right knee replacement (TKR) (~2015) History of bilateral breast reduction surgery (~2010) S/P excision of lipoma (~2017) History of heart artery stent (~2007) Family History Family History Father HTN (hypertension) Myocardial infarction Hyperlipidemia Abdominal aneurysm Mother HTN (hypertension) Myocardial infarction Hyperlipidemia Brother Alzheimer's disease Substance abuse Sister Rheumatoid arthritis Brother Rheumatoid arthritis Maternal Aunt Diabetes mellitus Lung cancer Maternal Uncle Diabetes mellitus Son No problems noted. Daughter No problems noted. Social History Social History Household Members: Spouse Housing: House Do you presently have visiting nurse or other home services: No Alcohol intake: current Alcohol intake frequency: does not drink Patient Tobacco Use Status: Former Tobacco user Tobacco use type: Cigarette Cigarette Packs Per Day: 2 Years Smoked: 30 Smoked in Last 30 Days: No e-Cigarette/Vaping Use: Never Used Second Hand Smoke Exposure: No Use of substances other than those prescribed or required for medical reasons: No Substance Use Type: Marijuana Advance Directives: Yes Advance Directives on File: Yes Advance Directives Date on File: 04/27/22 Do you have a plan to hurt others: No Plan service: No Current occupational status: retired 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 Oriented X3. No acute distress. Eyes: Pupils equal, round and reactive to light. ENT: Pharynx normal. Neck: Normal inspection. Neck supple. No lymph nodes noted. No crepitus CVS: Normal heart rate and rhythm. Pulses normal. Normal S1 and S2 Respiratory: No respiratory distress. Breath sounds normal. No Wheezing. No rales Abdomen: Soft and nontender. No rigidity. No distention. Skin: Skin warm and dry. Normal skin color. Normal skin turgor. Extremities: Muscle wasting especially in the hands, No lower extremity edema. No Lacerations. No Rash Neuro: Oriented X 3. No motor deficit. No sensory deficit. Moving all extremities. No slurred speech. CN 2 through 12 grossly intact Psych: calm, cooperative, normal affect Vital Signs: Vital Signs - 24 hr 05/26/25 14:31 05/26/25 19:08 05/27/25 06:00 Temperature 98.6 F 98.4 F 98.8 F Pulse Rate 67 54 58 Respiratory Rate 19 16 Blood Pressure 129/42 L 131/52 L 172/92 H Pulse Oximetry 98 98 98 Oxygen Delivery Method Room Air Room Air Room Air Oxygen Flow Rate 05/27/25 07:07 05/27/25 07:43 05/27/25 07:45 Temperature Pulse Rate 68 68 68 Respiratory Rate 16 Blood Pressure 166/68 H 166/68 H 166/68 H Pulse Oximetry Oxygen Delivery Method Room Air Oxygen Flow Rate 97 05/27/25 07:46 Temperature Pulse Rate Respiratory Rate Blood Pressure 166/68 H Pulse Oximetry Oxygen Delivery Method Oxygen Flow Rate BMI result Body Mass Index 32.2 Course Course Course Narrative: Rapid medical examination performed in triage by Sepideh Kurtz PA-C. Patient is a 80 year old assigned female at presenting to the emergency department with hallucinations. Patient's daughter states that the patient has had extensive hallucinations and delusions. Patient's daughter states that the patient has been recently diagnosed with stage 4 lung cancer that has metastasized to her bones. Detailed physical exam and review of systems are deferred to the triage clinician. Labs ordered. Patient placed back in the waiting room pending room availability and results. Reevaluation(s) Reevaluation #1: Time: 08:44 Date: 05/26/25 Provider: Faith Bautista, DO Patient in physician observation for psychiatric evaluation.? No acute events reported overnight. No current complaints. VS stable.? Patient is in bed search status Will continue to monitor. Reevaluation #2: Time: 13:46 Date: 05/27/25 Provider: Faith Bautista DO Physician observation ended at 146pm.Patient to be admitted as inpatient to psychiatry. Medications Administered Generic Name Dose Route Start Last Admin Trade Name Freq PRN Reason Stop Dose Admin Apixaban 5 mg 05/25/25 21:00 05/27/25 07:43 Apixaban 5 Mg Tablet PO 5 mg BID CHRISTY Administration Atorvastatin Calcium 80 mg 05/25/25 21:00 05/26/25 21:08 Atorvastatin Calcium 80 Mg Tablet PO 80 mg BEDTIME CHRISTY Administration Diltiazem HCl 240 mg 05/25/25 15:15 05/27/25 07:45 Diltiazem Hcl Cd 240 Mg Cap.Er.Deg PO 240 mg DAILY CHRISTY Administration Protocol Ferrous Sulfate 324 mg 05/26/25 09:00 05/27/25 07:43 Ferrous Sulfate 324 Mg Tablet. PO 324 mg DAILY CHRISTY Administration Folic Acid 1 mg 05/26/25 09:00 05/27/25 07:47 Folic Acid 1 Mg Tablet PO 1 mg DAILY CHRISTY Administration Insulin Glargine 14 unit 05/25/25 15:15 05/27/25 07:46 Insulin Glargine,Hum.Rec.Anlog 100 Unit/Ml 10 Ml Vial SUBCUT 14 unit DAILY CHRISTY Administration Insulin Human Lispro 0 unit 05/25/25 16:30 05/27/25 13:05 Insulin Lispro 100 Unit/Ml 3 Ml Vial SUBCUT 2 unit TIDAC [facility] Administration Protocol Isosorbide Mononitrate 30 mg 05/25/25 15:15 05/27/25 07:46 Isosorbide Mononitrate 30 Mg Tab.Er.24h PO 30 mg DAILY CHRISTY Administration Protocol Lisinopril 2.5 mg 05/25/25 15:15 05/27/25 07:43 Lisinopril 2.5 Mg Tablet PO 2.5 mg DAILY CHRISTY Administration Protocol Loratadine 10 mg 05/26/25 09:00 05/27/25 07:43 Loratadine 10 Mg Tablet PO 10 mg DAILY CHRISTY Administration Metformin HCl 1,000 mg 05/25/25 17:00 05/27/25 07:26 Metformin Hcl 1,000 Mg Tablet PO 1,000 mg BIDWM CHRISTY Administration Metoprolol Succinate 50 mg 05/25/25 15:15 05/27/25 07:43 Metoprolol Succinate Er 50 Mg Tab.Er.24h PO 50 mg DAILY CHRISTY Administration Protocol Omeprazole 40 mg 05/25/25 15:15 05/27/25 06:14 Omeprazole 40 Mg Capsule. PO 40 mg DAILY@0630 CHRISTY Administration Vitamin D 50 mcg 05/25/25 15:15 05/27/25 07:44 Cholecalciferol (Vitamin D3) 25 Mcg Tablet PO 50 mcg DAILY CHRISTY Administration Discontinued Medications Generic Name Dose Route Start Last Admin Trade Name Judi TRUJILLO Reason Stop Dose Admin Diphenhydramine HCl 50 mg 05/25/25 16:50 05/25/25 16:54 Diphenhydramine Hcl 25 Mg Capsule PO 05/25/25 16:51 50 mg ONCE ONE Administration Lorazepam 2 mg 05/25/25 16:50 05/25/25 16:58 Lorazepam 1 Mg Tablet PO 05/25/25 16:51 2 mg ONCE ONE Administration Medical Decision Making Medical Decision Making [facility] Narrative: My interpretation of labs: No significant changes from baseline in patient's hematology and chemistry, glucose 257, LFTs, urinalysis negative for UTI Patient's medication recon sedation will be done as soon as possible to restart patient's non psychiatric medications including insulin and Eliquis Patient will likely need a Sydnee psych. Care team has been pending. However, patient's daughter and family are overwhelmed about how much worse the hallucinations and anxiety has gotten. They and requesting geriatric psych consult for possible admission I reviewed patient's imaging from her previous visit, [address] scan did not show any intracranial masses or intracranial hemorrhage Physician observation started at 12:20 At 13:50, the care team evaluated the patient, recommendations, Sydnee psych On 19:15, I was informed by the patient's nurse that the patient was sleeping in her bed, rolled over and fell on the ground. Patient states that she has no pain anywhere, feels well, patient states that the fall was a joke and she feels completely fine. However, patient is on blood thinners, we will go ahead and order a head and cervical spine CT. My interpretation of CT scan of the head and cervical spine did not show any acute abnormalities. Patient is awake, alert and oriented, has no complaints. Radiology report pending Sign-out given to my colleague Dr. Antony Differential Diagnosis Differential Diagnoses: The differential diagnosis associated with the presentation includes (Medication side-effect, UTI, schizophrenia, brain metastasis) Admission/Observation Consideration of admission/observation: Escalation of care including admission/observation considered (Patient will likely need inpatient level of care for geriatric psych) Lab Data [facility] Lab Attestation statement: I reviewed the patient's lab results. 05/25/25 11:08 05/26/25 11:32 Labs: Lab Results 05/25/25 05/25/25 05/25/25 Range/Units 11:08 11:29 16:36 WBC 5.2 (4.8-10.8) X10*3/uL RBC 3.26 L (4.20-5.50) X10*6/uL Hgb 10.3 L (12.0-16.0) g/dl Hct 31.1 L (37.0-47.0) % MCV 95.4 (80.0-98.0) fL MCH 31.6 (27.0-33.0) pg MCHC 33.1 (31.0-35.0) g/dl RDW 13.2 (11.0-16.0) % Plt Count 203 (160-400) X10*3/uL MPV 10.4 (9.4-12.3) fL Immature Gran % (Auto) 0.2 (0.0-0.4) % Neut % (Auto) 69.9 (45-73) % Lymph % (Auto) 18.5 L (20-40) % Garza % (Auto) 10.4 (2-11) % Eos % (Auto) 0.8 (0-4) % Baso % (Auto) 0.2 (0-2) % Lymph # (Auto) 1.0 L (1.2-4.9) X10*3/uL Garza # (Auto) 0.5 (0.1-1.2) X10*3/uL Eos # (Auto) 0.0 (0.0-0.4) X10*3/uL Baso # (Auto) 0.0 (0.0-0.2) X10*3/uL Abs Immat Gran (auto) 0.01 (0.00-0.03) X10*3/uL Absolute Neuts (auto) 3.6 (2.0-8.3) x10*3/uL Absolute Nucleated RBC 0.000 (0.0-0.012) X10*3/uL Nucleated RBC % (auto) 0.0 (0.0-0.2) /100WBC Sodium 143 (135-145) mmol/L Potassium 4.1 (3.3-5.1) mmol/L Chloride 110 H (96-108) mmol/L Carbon Dioxide 22 (22-29) mmol/L Anion Gap 15 (12-20) BUN 25 H (9-16) mg/dL Creatinine 0.87 (0.5-1.4) mg/dL Estim Creat Clear Calc 48.0 Estimated GFR > 60 POC Glucose 215 H (60-115) mg/dL Random Glucose 257 H (60-115) mg/dL Calcium 9.5 (8.4-10.2) mg/dL Magnesium 2.0 (1.6-2.6) mg/dL Total Bilirubin 0.2 (0.0-1.0) mg/dL AST 37 H (5-31) U/L ALT 26 (0-31) U/L Alkaline Phosphatase 54 (39-117) U/L Ammonia 29 (13-55) umol/L Total Protein 7.3 (6.5-8.0) g/dL Albumin 4.0 (3.5-5.0) g/dL Urine Color Yellow Urine Appearance Clear Urine pH 5.5 (5.0-9.0) Ur Specific [place] 1.025 (1.005-1.025) Urine Protein 100 (2+) H (Neg-Trace) mg/dL Urine Glucose (UA) >=1000 H (Negative) mg/dL Urine Ketones Negative (Negative) mg/dL Urine Blood Trace H (Negative) Urine Nitrite Negative (Negative) Ur Leukocyte Esterase Negative (Negative) Urine RBC 0-2 (0-2) /HPF Urine WBC 6-10 H (0-5) /HPF Ur Squamous Epith Cells 0-2 (0-2) /HPF Urine Bacteria None Seen (None Seen) Hyaline Casts 0-2 (0-2) /LPF 05/25/25 05/25/25 05/26/25 Range/Units 17:55 19:55 07:19 WBC (4.8-10.8) X10*3/uL RBC (4.20-5.50) X10*6/uL Hgb (12.0-16.0) g/dl Hct (37.0-47.0) % MCV (80.0-98.0) fL MCH (27.0-33.0) pg MCHC (31.0-35.0) g/dl RDW (11.0-16.0) % Plt Count (160-400) X10*3/uL MPV (9.4-12.3) fL Immature Gran % (Auto) (0.0-0.4) % Neut % (Auto) (45-73) % Lymph % (Auto) (20-40) % Garza % (Auto) (2-11) % Eos % (Auto) (0-4) % Baso % (Auto) (0-2) % Lymph # (Auto) (1.2-4.9) X10*3/uL Garza # (Auto) (0.1-1.2) X10*3/uL Eos # (Auto) (0.0-0.4) X10*3/uL Baso # (Auto) (0.0-0.2) X10*3/uL Abs Immat Gran (auto) (0.00-0.03) X10*3/uL Absolute Neuts (auto) (2.0-8.3) x10*3/uL Absolute Nucleated RBC (0.0-0.012) X10*3/uL Nucleated RBC % (auto) (0.0-0.2) /100WBC Sodium (135-145) mmol/L Potassium (3.3-5.1) mmol/L Chloride (96-108) mmol/L Carbon Dioxide (22-29) mmol/L Anion Gap (12-20) BUN (9-16) mg/dL Creatinine (0.5-1.4) mg/dL Estim Creat Clear Calc Estimated GFR POC Glucose 206 H 152 H 194 H (60-115) mg/dL Random Glucose (60-115) mg/dL Calcium (8.4-10.2) mg/dL Magnesium (1.6-2.6) mg/dL Total Bilirubin (0.0-1.0) mg/dL AST (5-31) U/L ALT (0-31) U/L Alkaline Phosphatase (39-117) U/L Ammonia (13-55) umol/L Total Protein (6.5-8.0) g/dL Albumin (3.5-5.0) g/dL Urine Color Urine Appearance Urine pH (5.0-9.0) Ur Specific [place] (1.005-1.025) Urine Protein (Neg-Trace) mg/dL Urine Glucose (UA) (Negative) mg/dL Urine Ketones (Negative) mg/dL Urine Blood (Negative) Urine Nitrite (Negative) Ur Leukocyte Esterase (Negative) Urine RBC (0-2) /HPF Urine WBC (0-5) /HPF Ur Squamous Epith Cells (0-2) /HPF Urine Bacteria (None Seen) Hyaline Casts (0-2) /LPF 05/26/25 05/26/25 05/26/25 Range/Units 11:32 13:09 17:57 WBC (4.8-10.8) X10*3/uL RBC (4.20-5.50) X10*6/uL Hgb (12.0-16.0) g/dl Hct (37.0-47.0) % MCV (80.0-98.0) fL MCH (27.0-33.0) pg MCHC (31.0-35.0) g/dl RDW (11.0-16.0) % Plt Count (160-400) X10*3/uL MPV (9.4-12.3) fL Immature Gran % (Auto) (0.0-0.4) % Neut % (Auto) (45-73) % Lymph % (Auto) (20-40) % Garza % (Auto) (2-11) % Eos % (Auto) (0-4) % Baso % (Auto) (0-2) % Lymph # (Auto) (1.2-4.9) X10*3/uL Garza # (Auto) (0.1-1.2) X10*3/uL Eos # (Auto) (0.0-0.4) X10*3/uL Baso # (Auto) (0.0-0.2) X10*3/uL Abs Immat Gran (auto) (0.00-0.03) X10*3/uL Absolute Neuts (auto) (2.0-8.3) x10*3/uL Absolute Nucleated RBC (0.0-0.012) X10*3/uL Nucleated RBC % (auto) (0.0-0.2) /100WBC Sodium (135-145) mmol/L Potassium (3.3-5.1) mmol/L Chloride (96-108) mmol/L Carbon Dioxide (22-29) mmol/L Anion Gap (12-20) BUN (9-16) mg/dL Creatinine 0.87 (0.5-1.4) mg/dL Estim Creat Clear Calc 48.0 Estimated GFR > 60 POC Glucose 151 H 175 H (60-115) mg/dL Random Glucose (60-115) mg/dL Calcium (8.4-10.2) mg/dL Magnesium (1.6-2.6) mg/dL Total Bilirubin (0.0-1.0) mg/dL AST (5-31) U/L ALT (0-31) U/L Alkaline Phosphatase (39-117) U/L Ammonia (13-55) umol/L Total Protein (6.5-8.0) g/dL Albumin (3.5-5.0) g/dL Urine Color Urine Appearance Urine pH (5.0-9.0) Ur Specific [place] (1.005-1.025) Urine Protein (Neg-Trace) mg/dL Urine Glucose (UA) (Negative) mg/dL Urine Ketones (Negative) mg/dL Urine Blood (Negative) Urine Nitrite (Negative) Ur Leukocyte Esterase (Negative) Urine RBC (0-2) /HPF Urine WBC (0-5) /HPF Ur Squamous Epith Cells (0-2) /HPF Urine Bacteria (None Seen) Hyaline Casts (0-2) /LPF 05/27/25 05/27/25 Range/Units 07:07 11:25 WBC (4.8-10.8) X10*3/uL RBC (4.20-5.50) X10*6/uL Hgb (12.0-16.0) g/dl Hct (37.0-47.0) % MCV (80.0-98.0) fL MCH (27.0-33.0) pg MCHC (31.0-35.0) g/dl RDW (11.0-16.0) % Plt Count (160-400) X10*3/uL MPV (9.4-12.3) fL Immature Gran % (Auto) (0.0-0.4) % Neut % (Auto) (45-73) % Lymph % (Auto) (20-40) % Garza % (Auto) (2-11) % Eos % (Auto) (0-4) % Baso % (Auto) (0-2) % Lymph # (Auto) (1.2-4.9) X10*3/uL Garza # (Auto) (0.1-1.2) X10*3/uL Eos # (Auto) (0.0-0.4) X10*3/uL Baso # (Auto) (0.0-0.2) X10*3/uL Abs Immat Gran (auto) (0.00-0.03) X10*3/uL Absolute Neuts (auto) (2.0-8.3) x10*3/uL Absolute Nucleated RBC (0.0-0.012) X10*3/uL Nucleated RBC % (auto) (0.0-0.2) /100WBC Sodium (135-145) mmol/L Potassium (3.3-5.1) mmol/L Chloride (96-108) mmol/L Carbon Dioxide (22-29) mmol/L Anion Gap (12-20) BUN (9-16) mg/dL Creatinine (0.5-1.4) mg/dL Estim Creat Clear Calc Estimated GFR POC Glucose 198 H 159 H (60-115) mg/dL Random Glucose (60-115) mg/dL Calcium (8.4-10.2) mg/dL Magnesium (1.6-2.6) mg/dL Total Bilirubin (0.0-1.0) mg/dL AST (5-31) U/L ALT (0-31) U/L Alkaline Phosphatase (39-117) U/L Ammonia (13-55) umol/L Total Protein (6.5-8.0) g/dL Albumin (3.5-5.0) g/dL Urine Color Urine Appearance Urine pH (5.0-9.0) Ur Specific [place] (1.005-1.025) Urine Protein (Neg-Trace) mg/dL Urine Glucose (UA) (Negative) mg/dL Urine Ketones (Negative) mg/dL Urine Blood (Negative) Urine Nitrite (Negative) Ur Leukocyte Esterase (Negative) Urine RBC (0-2) /HPF Urine WBC (0-5) /HPF Ur Squamous Epith Cells (0-2) /HPF Urine Bacteria (None Seen) Hyaline Casts (0-2) /LPF Independent Interpretation I performed an independent interpretation of an: EKG Critical Care Time Critical Care Time Critical Care Time: Yes Total Critical Care Time: 35 Attestation: I have personally provided critical care time. Time includes review of lab data, radiology results, discussion with consultants, and monitoring for potential decompensation. Intervention performed as documented. Discharge Plan Discharge Clinical Impression: Hallucinations, visual Patient Disposition: Admitted As Inpatient Interventions: Admission Worksheet (ED) Last Done: 05/27/25 12:58
--- NOTE | 2025-05-25 11:11 | PC.NURSE ---
80 F presents to ED with hallucinations, ongoing, on multiple meds and c/o restless legs. Pt has hallucinations at her home that people are living on her property, there is a wedding down the street, etc. Pt is A+OX4, calm, cooperative, ambulates without devices but a little unsteady on her feet. Pt denies SI/HI and denies any pain. RR even and unlabored, denies SOB or CP.
[2025-05-25 11:16] LABS: MANUAL DIFF FLAG NO
[2025-05-25 11:17] LABS: Hematocrit 31.1 % (37.0-47.0); Hemoglobin 10.3 g/dl (12.0-16.0); Imm Gran Abs Auto 0.01 X10*3/uL (0.00-0.03); Imm Gran Pct Auto 0.2 % (0.0-0.4); Lymphocytes Absolute Auto 1.0 X10*3/uL (1.2-4.9); Mean Corpuscular HGB Conc 33.1 g/dl (31.0-35.0); Mean Corpuscular Hemoglobin 31.6 pg (27.0-33.0); Mean Corpuscular Volume 95.4 fL (80.0-98.0); NRBC Abs Auto 0.000 X10*3/uL (0.0-0.012); NRBC Pct Auto 0.0 /100WBC (0.0-0.2); Platelet Count 203 X10*3/uL (160-400); Red Blood Count 3.26 X10*6/uL (4.20-5.50); White Blood Count 5.2 X10*3/uL (4.8-10.8)
[2025-05-25 11:23] LABS: Ammonia 29 umol/L (13-55)
[2025-05-25 11:30] LABS: Alanine Aminotransferase 26 U/L (0-31); Albumin Level 4.0 g/dL (3.5-5.0); Alkaline Phosphatase 54 U/L (39-117); Anion Gap 15 (12-20); Aspartate Amino Transferase 37 U/L (5-31); Blood Urea Nitrogen 25 mg/dL (9-16); Calcium 9.5 mg/dL (8.4-10.2); Carbon Dioxide 22 mmol/L (22-29); Chloride 110 mmol/L (96-108); Creatinine Clr Calc Pharmacy 48.0; Estimated Glomerular Filt Rate > 60; Magnesium 2.0 mg/dL (1.6-2.6); Potassium 4.1 mmol/L (3.3-5.1); Sodium 143 mmol/L (135-145); Total Protein 7.3 g/dL (6.5-8.0)
[2025-05-25 11:43] LABS: Appearance Urine Clear; Glucose Urine UA >=1000 mg/dL (Negative); PH 5.5 (5.0-9.0); Specific Gravity - Urine 1.025 (1.005-1.025); UMIC TRIGGER UACC YES
[2025-05-25 11:45] LABS: UACC Culture Trigger YES
--- OUTSIDE RECORDS SUMMARY | 2025-05-25 12:11 | XMS_ITS | Referral Summary ---
Author Organization [facility] Address [address] [place] [address] Care Team Providers Care National Account Director Name Role Phone Sary Waite MD Primary [...] 137 mcg (0.1 %) nasal spray [employer] Alloy(s) Both Nares Twice Daily PRN 4 Active [...] [place] [id number] [facility] Care Teams National Account Director Relationship Specialty Start Date End Date Sary Waite MD [address] [place] [address] PCP - General Internal Medicine 11/18/24
--- OUTSIDE RECORDS SUMMARY | 2025-05-25 12:11 | XMS_ITS | Clinical Summary ---
Author Organization [facility] Facility Address [address] [address] Care Team Providers Care Indian Blanket Weaver Name Role Phone Elayne Waite MD Primary Care Provider [phone] Allergies Active Allergy Reactions Criticality Noted Date [...] Health Medicare [facility] Medicare Care Teams Indian Blanket Weaver Relationship Specialty Start Date End Date Elayne Waite MD [address] [place] [address] PCP - General Internal Medicine 02/26/22
--- OUTSIDE RECORDS SUMMARY | 2025-05-25 12:12 | XMS_ITS | Clinical Summary ---
Author Organization Patient Business Ser [facility] Address [address] [place] [address] Care Team Providers Care Engineering Test Specialist Name Role Phone Sary Waite MD Primary [...] capsuleIndicatio ns:Essential hypertension,Cor onary artery disease involving mechoopda coronary artery of mechoopda heart without angina pectoris Take 1 capsule (240 mg total) by mouth 1 (one) time each day. 90 each 3 5 02/18/20 26 Active metoprolol succinate (TOPROL-XL) 50 mg 24 hr tabletIndication s:Essential hypertension,Cor onary artery disease involving mechoopda coronary artery of mechoopda heart without angina pectoris Take 1 tablet [...] 2018 she presented with chest pain to [facility] and urgent angiogram showed multivessel disease status post two vessel CABG with DURHAM to LAD and SVG to OM1; complicated by difficult vein harvesting with subsequent leg wounds 2021 - preTAVR angiogram showing progressive disease with new SENIOR PROJECT MANAGER of dominant RCA Assessment & Plan (04/12/2025 3:07 PM EDT): Catheterization from 2021 showed patent grafts with known SENIOR PROJECT MANAGER of RCA. Echocardiogram from November 2024 showed [...] from 2021 showed patent grafts with known SENIOR PROJECT MANAGER of RCA. Echocardiogram from November 2024 showed [...] not crush or chew. Complete heart block ([facility] V24, [facility] V28) 02/15/2025 Assessment & Plan (03/26/2025 3:24 PM EDT): Chest pain 02/08/2023 COPD (chronic obstructive pu lmonary disease) ([facility] V24, [facility] V28) 01/26/2022 Mixed hyperlipidemia 01/26/2022 Assessment & Plan (04/12/2025 3:07 PM EDT): Continue with atorvastatin. Orders: ECG 12 lead Assessment & Plan (02/17/2025 11:53 AM EDT): Continue with atorvastatin. Obesity 01/26/2022 Type 2 diabetes mellitus wit hout complications ([facility] V24, [facility] V28) 01/26/2022 Overview (11/16/2024): w/o fdc current use of insulin Pain of right lower extremity 09/29/2021 Abdominal aortic aneurysm (A AA) without rupture ([facility] V24) 03/14/2021 Primary hypertension 03/14/2021 Assessment & [...] the femoral approach by Dr. Humphries at [facility]; procedure complicated by complete heart block with [...] Date Diagnosed Date Resolved Date Cardiac arrest ([facility] V24, [facility] V28) 04/07/2025 04/09/2025 Infection of pacemaker pocket ([facility] V24) 02/25/2025 04/09/2025 Encounters Date Type Department Care Team Description 05/12/2025 7:30 PM EDT Ancillary Procedure [facility] Cardiology [facility] [address] [place] [address] 04/29/2025 1:00 PM EDT Ancillary Procedure [facility] [address] [place] [address] 04/22/2025 3:10 PM EDT Office Visit [facility] [address] [place] [address] Steffi Palacios, ZAC Infection of pacemaker pocket, sequela (Primary Dx) 04/15/2025 11:10 AM EDT Office Visit [facility] Cardiology [facility] [address] [place] [address] Steffi Palacios NP Pacemaker (Primary Dx) 04/12/2025 1:40 PM EDT Office Visit [facility] [address] [place] [address] Armando Bentley NP S/P TAVR (transcatheter aortic valve replacement) (Primary Dx); Coronary artery disease involving mechoopda coronary artery of mechoopda heart without angina pectoris; Pacemaker; Primary hypertension; Mixed hyperlipidemia 04/07/2025 12:35 PM EDT Anesthesia Event [facility] [address] [place] [phone] Pablo Gutierrez MD 04/07/2025 11:00 AM EDT - 04/07/2025 12:00 PM EDT Surgery [facility] [address] [place] [address] Devyn Tenorio MD Insert temporary pacemaker 04/07/2025 10:20 AM EDT - 04/09/2025 4:08 PM EDT Hospital Encounter [facility] Intermediate Care Unit [address] [place] [phone] Devyn Tenorio MD Japaridze, Anna, MD Seralathan, Manikandan, MD Pericardial effusion after operative procedure (Primary Dx); Infection of pacemaker pocket, sequela; Cardiac arrest (CMS/HCC V24, CMS/HCC V28) Discharge Disposition: [place] [facility] 04/07/2025 Telephone [facility] [address] [place] [address] Armando Bentley NP Post Tavr Labs 03/30/2025 10:00 AM EDT Clinical Support [facility] [address] [place] [address] 03/30/2025 Telephone [facility] [address] [place] [address] Devyn Tenorio MD Procedure (Leadless Pacemaker w/ Pacemaker Removal ..25) 03/29/2025 11:30 AM EDT Ancillary Procedure [facility] [address] [place] [address] Nonrheumatic aortic valve stenosis 03/26/2025 1:00 PM EDT Office Visit [facility] [address] [place] [address] Devyn Tenorio MD Coronary artery disease involving mechoopda coronary artery of mechoopda heart without angina pectoris (Primary Dx); Complete heart block (CMS/HCC V24, CMS/HCC V28); History of transcatheter aortic valve replacement (TAVR); Primary hypertension 03/24/2025 Telephone [facility] [address] [place] [address] Hilary Bartholomew PA 03/23/2025 2:30 PM EDT Ancillary Procedure [facility] [address] [place] [address] 03/18/2025 3:00 PM EDT Clinical Support [facility] [address] [place] [address] Encounter for adjustment or management of cardiac device 03/04/2025 Telephone [facility] Cardiology [facility] - [address] [place] [phone] Devyn Tenorio MD 03/03/2025 1:30 PM EDT - 03/03/2025 2:30 PM EDT Surgery [facility] [address] [place] [address] Devyn Tenorio MD Pocket revision [12936 (CPT )] 03/03/2025 11:43 AM EDT - 03/03/2025 4:44 PM EDT Hospital Encounter [facility] Agent [address] [place] [phone] Devyn Tenorio MD Infection of pacemaker pocket ([facility] V24); Pacemaker Discharge Disposition: Home or Self Care 02/25/2025 Telephone [facility] Cardiology [facility] [address] [place] [address] Devyn Tenorio MD Procedure (Pocket Revision 5.21.25) 02/24/2025 3:00 PM EDT Ancillary Procedure [facility] [address] [facility] [address] [place] [phone] Encounter for adjustment or management of cardiac device from Last 3 Months Surgical History Surgery Date Site/Laterality Comments OTHER SURGICAL HISTORY Bilateral PROCEDURE: HISTORY OTHER; COMMENT: breast reduction surgey COLONOSCOPY PROCEDURE: HISTORICAL COLONOSCOPY CORONARY ARTERY BYPASS GRAFT 2017 PROCEDURE: HISTORICAL CABG; COMMENT: x 2 OTHER SURGICAL HISTORY PROCEDURE: LA EGD PARTIAL/COMPL ESOPHAGOGASTRIC FUNDOPLASTY OTHER SURGICAL HISTORY PROCEDURE: HISTORY OTHER; COMMENT: Heart Artery Stent HYSTERECTOMY PROCEDURE: HISTORICAL HYSTERECTOMY TOTAL KNEE ARTHROPLASTY PROCEDURE: LA ARTHRP KNE CONDYLE&PLATU MEDIAL&LAT COMPARTMENTS LIPOMA RESECTION PROCEDURE: SKIN TISSUE EXCISION(LIPOMA) OTHER SURGICAL HISTORY TAVR DONE AT [facility] ON 01/28/25 w/KM. INDICATIONS: Aortic stenosis ABLATION DONE AT [facility] ON 01/29/25 w/SR. INDICATIONS: Complete Heart Block with Non Reversible, Symptomatic Bradycardia Medical History Medical History Date Comments Anemia DX:Anemia Arthritis DX:Arthritis Atypical migraine DX:Atypical mi graine AVM (arteriovenous malformation) of colon DX:AVM (arteriovenous malformation) of colon Barretts esophagus DX:Barretts e sophagus Bleeding hemorrhoids DX:Bleeding hemorrhoids COPD (chronic obstructive pu lmonary disease) ([facility] V24, [facility] V28) DX:COPD (chronic o bstructive pulmonary disease) ([facility]) Depression DX:Depression GERD (gastroesophageal reflux disease) DX:GERD (gastroesophageal reflux disease) GIB (gastrointestinal bleeding) DX:GIB (gastrointestinal bleeding) History of blood transfusion DX: History of blood transfusion IBS (irritable bowel syndrome) D X:IBS (irritable bowel syndrome); COMMENT: w/ both constipation and diarrhea Major depression in full rem ission ([facility] V24) DX:Major depression in full remission ([facility]) Obesity DX:Obesity Restless leg syndrome DX:Restles s leg syndrome Transient cerebral ischemia DX:T ransient cerebral ischemia Type 2 diabetes mellitus wit hout complications ([facility] V24, [facility] V28) DX:Type 2 bo betes mellitus without complications ([facility]); COMMENT: w/o fdc current use of insulin Adenocarcinoma of left lung ([facility] V24, [facility] V28) DX:Adenocarcinoma of left marce ng ([facility]) Anxiety and depression Hypertension Hyperlipidemia H/O: lung [...] for your loved ones. For example, child therapist or elderly care for an older adult? [...] Description 07/20/2025 1:10 PM EDT Office Visit [facility] [address] [place] [phone] CycArmando naranjo NP [address] [place] [address] [address] [place] [address] 02/28/2026 1:00 PM EDT Ancillary Procedure [facility] [address] [place] [phone] Health Maintenance Due Date Last Done Comments [...] this topic Medical Devices Implanted Type Area Human Resources Intern Device Identifier Shelf Expiration Date Model / Serial / Lot Medt-Card Mackey Xt Dr Monroy [id number] Implanted:2024 (Quantity not on file) Cardiac Pacemaker [employer] - CARDIAC RHYTH-CRDM ELOISA XT DR MONROY [id number] / [id number] / Medt-Card Eloisa Xt Dr Monroy [id number] Implanted:2024 (Quantity not on file) Cardiac Pacemaker [employer] - CARDIAC RHYTH-CRDM ELOISA XT DR MONROY / [id number] / Pacemaker Leadless 19.5f 38mm Rv - [id number] - [id number] Implanted:Qty: 1 on 04/07/2025 by Devyn Tenorio MD at [facility] Cardiac Pacemaker Left: Chest Wall [facility] [id number] 02/17/2027 [id number] / [id number] / Pacemaker Leadless 19.5f 32.2mm Ra - [id number] - [id number] Implanted:Qty: 1 on 04/07/2025 by Devyn Tenorio MD at [facility] Cardiac Pacemaker Left: Chest Wall [facility] [id number] 03/01/2027 [id number] / [id number] / Absorber Antibacterial Med Envelope Tyrx - [id number] - [id number] Implanted:Qty: 1 on 03/03/2025 by Devyn Tenorio MD at [facility] Other Cardiac Implant Left: Chest [employer] - CARDIAC RHYTH[facility] [id number] 09/09/2025 [id number] / [id number] / [id number] Procedures Procedure Name Priority Date/Time Associated Diagnosis [...] 7:27 PM EDT) Date Time Interrogation Session [id number] CV DEVICE CHECK Type Interrogation Session Remote CV DEVICE CHECK Implantable Pulse Generator Human Resources Intern MDT CV DEVICE CHECK Implantable Pulse Generator Type IPG CV DEVICE CHECK Implantable Pulse Generator Model Mackey XT DR MRI [id number] CV DEVICE CHECK Implantable Pulse Generator Serial Number [id number] CV DEVICE CHECK Implantable Pulse Generator Implant Date 20250129 CV DEVICE CHECK Battery Remaining Longevity 128.0 CV DEVICE CHECK Battery Voltage 3.170 CV D EVICE CHECK Battery AGENTS' RECORDS CLERK Trigger 2.625 CV DEVICE CHECK Battery Status Middle of Service CV DEVICE CHECK Luis Statistic RA Percent Paced 31.77 CV DEVICE CHECK Luis Statistic RV Percent Paced 98.93 CV DEVICE CHECK Atrial Tachy Statistic AT/AF [place] Percent 0.00 CV DEVICE CHECK Lead Channel [...] ms GEMUSE QTc 561 ms GEMUSE R [place] -16 degrees GEMUSE T [place] 153 degrees GEMUSE ECG Interpretation Ventricular-pa cammie rhythm Abnormal ECG When compared with ECG of 28-SEP-2021 07:27, Electronic ventricular pacemaker has replaced Sinus rhythm Confirmed by Alicia CLAYTON JAMES ([id number]) on 04/13/2025 3:21:58 PM GEMUSE 04/12/2025 2:00 PM EDT 04/13/2025 3:21 PM EDT Armando Bentley PLEATER ECG ORDERABLES Edited Resu lt - Final GEMUSE * (ABNORMAL) POCT Glucose, blood (04/09/2025 10:51 AM EDT) Only the most recent of8 resultswithin the time period is included. [facility] Glucose POCT 333(H) 70 - 100 mg/dL 04/09/2025 10:51 AM EDT [facility] Blood Capillary blood specimen / Unknown 04/09/2025 10:51 AM EDT 04/09/2025 10:52 AM EDT Kelton Leong MD LAB POINT OF CA RE TEST DOCKED DEVICE UNSOLICITED RESULTS Final Result Performing Organization Address [facility]/ZIP Co de Phone Number [facility] [address] [place] [address], * (ABNORMAL) CBC auto differential (04/09/2025 5:53 AM EDT) [facility] WBC 5.9 4.8 - 10.8 K/mcL LAB HEMETOLOGY METHOD 04/09/2025 6:55 AM EDT [facility] RBC 2.70(L) 3.80 - 4.80 M/[facility] LAB HEMETOLOGY METHOD 04/09/2025 6:55 AM EDT [facility] Hemoglobin 8.3(L) 11.5 - 16.0 g/dL LAB HEMETOLOGY METHOD 04/09/2025 6:55 AM [facility] Hematocrit 25.3(L) 35.0 - 47.0 % LAB HEMETOLOGY METHOD 04/09/2025 6:55 AM [facility] MCV 93.7 79.0 - 98.0 FL LAB HEMETOLOGY METHOD 04/09/2025 6:55 AM [facility] MCH 30.7 27.0 - 32.0 pcg LAB HEMETOLOGY METHOD 04/09/2025 6:55 AM [facility] MCHC 32.8 32.0 - 37.0 g/dL LAB HEMETOLOGY METHOD 04/09/2025 6:55 AM [facility] RDW 13.5 11.0 - 15.0 % LAB HEMETOLOGY METHOD 04/09/2025 6:55 AM [facility] Platelets 181 130 - 400 K/mcL LAB HEMETOLOGY METHOD 04/09/2025 6:55 AM [facility] MPV 10.5 7.0 - 11.0 FL LAB HEMETOLOGY METHOD 04/09/2025 6:55 AM [facility] NRBC 0.0 <1.0 % LAB HEMETOLOGY METHOD 04/09/2025 6:55 AM [facility] NRBC Absolute 0.00 <0.10 K/mcL LAB HEMETOLOGY METHOD 04/09/2025 6:55 AM [facility] Neutrophils Relative 58.8 % LAB HEMETOLOGY METHOD 04/09/2025 6:55 AM [facility] Lymphocytes Relative 30.5 % LAB HEMETOLOGY METHOD 04/09/2025 6:55 AM [facility] Monocytes Relative 8.8 % LAB HEMETOLOGY METHOD 04/09/2025 6:55 AM [facility] Eosinophils Relative 1.2 % LAB HEMETOLOGY METHOD 04/09/2025 6:55 AM EDT [facility] Basophils Relative 0.2 % LAB HEMETOLOGY METHOD 04/09/2025 6:55 AM EDT [facility] Immature Granulocytes Relative 0.5 % LAB HEMETOLOGY METHOD 04/09/2025 6:55 AM EDT [facility] Neutrophils Absolute 3.47 1.50 - 7.00 K/mcL LAB HEMETOLOGY METHOD 04/09/2025 6:55 AM EDT [facility] Lymphocytes Absolute 1.80 1.00 - 5.00 K/mcL LAB HEMETOLOGY METHOD 04/09/2025 6:55 AM EDT [facility] Monocytes Absolute 0.52 0.20 - 1.00 K/mcL LAB HEMETOLOGY METHOD 04/09/2025 6:55 AM EDT [facility] Eosinophils Absolute 0.07 0.00 - 0.50 K/mcL LAB HEMETOLOGY METHOD 04/09/2025 6:55 AM EDT [facility] Basophils Absolute 0.01 0.00 - 0.20 K/mcL LAB HEMETOLOGY METHOD 04/09/2025 6:55 AM EDT [facility] Immature Granulocytes Absolute 0.03 0.00 - 0.03 K/mcL LAB HEMETOLOGY METHOD 04/09/2025 6:55 AM EDT [facility] Blood Venous blood specimen / Unknown Venipuncture / Unknown 04/09/2025 5:53 AM EDT 04/09/2025 6:22 AM EDT us Mao VARGAS LAB BLOOD ORDERABLES Final Res ult [facility] [address] [place] [address], * (ABNORMAL) Basic metabolic panel (04/09/2025 5:53 AM EDT) Only the most recent of2 resultswithin the time period is included. Sodium 139 133 - 145 mmol/L LAB CHEMISTRY METHOD 04/09/2025 7:09 AM [facility] Potassium 4.2 3.5 - 5.5 mmol/L LAB CHEMISTRY METHOD 04/09/2025 7:09 AM [facility] Chloride 106 96 - 110 mmol/L LAB CHEMISTRY METHOD 04/09/2025 7:09 AM [facility] CO2 29 21 - 32 mmol/L LAB CHEMISTRY METHOD 04/09/2025 7:09 AM [facility] Anion Gap 4 3 - 11 LAB CHEMISTRY METHOD 04/09/2025 7:09 AM [facility] Glucose 191(H) 70 - 100 mg/dL LAB CHEMISTRY METHOD 04/09/2025 7:09 AM [facility] BUN 13 5 - 25 mg/dL LAB CHEMISTRY METHOD 04/09/2025 7:09 AM [facility] Creatinine 0.90 0.50 - 1.10 mg/dL LAB CHEMISTRY METHOD 04/09/2025 7:09 AM [facility] eGFR 66 >=60 mL/min/1. 73m2 LAB CHEMISTRY METHOD 04/09/2025 7:09 AM [facility] Comment:Calculation based on the Chronic Kidney Disease Epidemiology Collaboration (CKD-EPI) equation refit without adjustment for race. BUN/Creatinine Ratio 14.4 LAB CHEMISTRY METHOD 04/09/2025 7:09 AM [facility] Calcium 9.0 8.5 - 10.5 mg/dL LAB CHEMISTRY METHOD 04/09/2025 7:09 AM [facility] Blood Venous blood specimen / Unknown Venipuncture / Unknown 04/09/2025 5:53 AM EDT 04/09/2025 6:21 AM EDT us Mao VARGAS LAB BLOOD ORDERABLES Final Res ult Performing Organization Address City/[facility]/ZIP Co de Phone Number [facility] [address] [place] [address], [place] [phone] * (ABNORMAL) Hemoglobin and hematocrit (04/08/2025 9:27 PM EDT) Only the most recent of2 resultswithin the time period is included. Hemoglobin 8.3(L) 11.5 - 16.0 g/dL LAB HEMETOLOGY METHOD 04/08/2025 9:49 PM EDT [facility] Hematocrit 25.4(L) 35.0 - 47.0 % LAB HEMETOLOGY METHOD 04/08/2025 9:49 PM EDT [facility] Blood Venous blood specimen / Unknown Venipuncture / Unknown 04/08/2025 9:27 PM EDT 04/08/2025 9:40 PM EDT Mao VARGAS LAB BLOOD ORDERABLES Final Res ult Performing Organization Address City/[facility]/ZIP Co de Phone Number [facility] [address] [place] [address], [place] [phone] * Transfuse RBC (04/08/2025 4:52 PM EDT) Steffi Palacios PLEATER BLOOD TRANSFUSION ORDERABLES Final Result * (ABNORMAL) TRANSTHORACIC ECHOCARDIOGRAM (TTE) COMPLETE W/ CONTRAST (04/08/2025 2:00 PM EDT) Left [facility] [place] 6.0 cm CV PACS LA Area Sys [...] Signed Date: 04/08/2025 13:37 ET Workstation ID: [id number] Transcribed By: Self Edit Transcribed Date: 04/08/2025 [...] Signed Date: 04/08/2025 13:37 ET Workstation ID: [id number] Transcribed By: Self Edit Transcribed Date: 04/08/2025 13:33 ET Steffi Palacios PLEATER IMG XR PROCEDURES Final Resu lt * [...] Signed Date: 04/08/2025 12:36 ET Workstation ID: [id number] Transcribed By: Self Edit Transcribed Date: 04/08/2025 [...] Signed Date: 04/08/2025 12:36 ET Workstation ID: [id number] Transcribed By: Self Edit Transcribed Date: 04/08/2025 12:34 ET Steffi Palacios PLEATER IMG CT PROCEDURES Final Resu lt * Type and screen (04/08/2025 11:22 AM EDT) ABO Group A 04/08/2025 12:22 PM EDT [facility] Rh Type Positive 04/08/2025 12:22 PM EDT [facility] Antibody Screen Negative 04/08/2025 12:22 PM EDT [facility] Blood Venous blood specimen / Unknown Venipuncture / Unknown 04/08/2025 11:22 AM EDT 04/08/2025 11:35 AM EDT us Steffi Palacios NP LAB BLOOD BANK TEST ORDERABL ES Final Result [facility] [address] [place] [address], [place] [phone] * Prepare RBC: 1 Units (04/08/2025 11:03 AM EDT) Pathologist [facility] Product Code [id number] 04/08/2025 1:47 PM EDT [facility] Unit Number [id number] 04/08/20 1:47 PM EDT [facility] Crossmatch Compatible 04/08/2025 12:32 PM EDT [facility] Dispense Status Transfused 04/08/2025 1:47 PM EDT [facility] Unit ABO Rh APOS 04/08/2025 1:47 PM EDT [facility] Unit Expiration Date Time [id number] 04/08/2025 1:47 PM EDT [facility] Unit Blood Type 6200 04/08/2025 1:47 PM EDT [facility] Blood Venous blood specimen / Unknown 04/08/2025 11:03 AM EDT 04/08/2025 11:35 AM EDT us Steffi Palacios PLEATER BLOOD BANK PRODUCT ORDERABLE S Final Result [facility] [address] [place] [address], * (ABNORMAL) Complete blood count (04/08/2025 6:34 AM EDT) Pathologist [facility] WBC 8.8 4.8 - 10.8 K/mcL LAB HEMETOLOGY METHOD 04/08/2025 8:10 AM EDT [facility] RBC 2.40(L) 3.80 - 4.80 M/mcL LAB HEMETOLOGY METHOD 04/08/2025 8:10 AM EDT [facility] Hemoglobin 7.2(L) 11.5 - 16.0 g/dL LAB HEMETOLOGY METHOD 04/08/2025 8:10 AM EDT [facility] Hematocrit 22.3(L) 35.0 - 47.0 % LAB HEMETOLOGY METHOD 04/08/2025 8:10 AM EDT [facility] MCV 94.9 79.0 - 98.0 FL LAB HEMETOLOGY METHOD 04/08/2025 8:10 AM EDT [facility] MCH 30.6 27.0 - 32.0 pcg LAB HEMETOLOGY METHOD 04/08/2025 8:10 AM EDT [facility] MCHC 32.3 32.0 - 37.0 g/dL LAB HEMETOLOGY METHOD 04/08/2025 8:10 AM EDT [facility] RDW 13.1 11.0 - 15.0 % LAB HEMETOLOGY METHOD 04/08/2025 8:10 AM EDT [facility] Platelets 198 130 - 400 K/mcL LAB HEMETOLOGY METHOD 04/08/2025 8:10 AM EDT [facility] MPV 10.9 7.0 - 11.0 FL LAB HEMETOLOGY METHOD 04/08/2025 8:10 AM EDT [facility] NRBC 0.0 <1.0 % LAB HEMETOLOGY METHOD 04/08/2025 8:10 AM EDT [facility] NRBC Absolute 0.00 <0.10 K/mcL LAB HEMETOLOGY METHOD 04/08/2025 8:10 AM EDT [facility] Blood Venous blood specimen / Unknown Venipuncture / Unknown 04/08/2025 6:34 AM EDT 04/08/2025 7:14 AM EDT us Steffi Palacios PLEATER LAB BLOOD ORDERABLES Final R esult [facility] [address] [place] [address], * SST tube (04/08/2025 6:26 AM EDT) [facility] Extra Tube Hold for add-ons. 04/08/2025 9:01 AM EDT [facility] Comment:Auto resulted. Blood Venous blood specimen / Unknown Venipuncture / Unknown 04/08/2025 6:26 AM EDT 04/08/2025 7:15 AM EDT Devyn Tenorio MD LAB BLOOD ORDERABLES Final Result [facility] [address] [place] [address], [place] [phone] * (ABNORMAL) POCT venous basic metabolic profile, (04/07/2025 6:09 PM EDT) Only the most recent of2 resultswithin the time period is included. [facility] Glucose Venous POCT 314(H) 70 - 100 mg/dL 04/07/2025 6:13 PM EDT [facility] Sodium Venous POCT 139 135 - 145 mmol/L 04/07/2025 6:13 PM EDT [facility] Potassium Venous POCT 5.9(H) 3.5 - 5.5 mmol/L 04/07/2025 6:13 PM T [facility] Chloride Venous POCT 104 96 - 110 mmol/L 04/07/2025 6:13 PM T [facility] TCO2 Venous POCT 26 21 - 32 mmol/L 04/07/2025 6:13 PM EDT [facility] BUN Venous POCT 19 5 - 25 mg/dL 04/07/2025 6:13 PM T [facility] Creatinine Venous POCT 0.7 0.5 - 1.1 mg/dL 04/07/2025 6:13 PM T [facility] Ionized Calcium Venous POCT 4.40(L) 4.50 - 5.30 mg/dL 04/07/2025 6:13 PM EDT [facility] Hemoglobin Venous POCT 9.9(L) 11.5 - 16.0 g/dL 04/07/2025 6:13 PM EDT [facility] Hematocrit Venous POCT 29(L) 35 - 47 % 04/07/2025 6:13 PM EDT [facility] Blood Venous blood specimen / Unknown 04/07/2025 6:09 PM EDT 04/07/2025 6:15 PM EDT Devyn Tenorio MD LAB POINT OF CARE TEST DOCKED DEVICE UNSOLICITED RESULTS Final Result [facility] [address] [place] [address], * INSERT / REPLACE LEADLESS PPM, REMOVE [...] infection risk is significant reduced. The [place] leadless system will allow AV synchrony most [...] used ultrasound-guided technique and placed an 8 Bel[place] sheath in the left femoral vein and a 6 [place]ian sheath in the right femoral vein. Through [...] the right atrial appendage. I used multiple SAO TOMEAN ADAM views and multiple contrast injections in [...] compromise. us Devyn Tenorio MD CV ELECTROPHYSIOLOGY MICHAEL RILEY Final Result * Culture wound with gram stain (04/07/2025 2:07 PM EDT) Culture, Wound No growth at 3 days 04/10/2025 9:42 AM EDT [facility] Gram Stain Result No polymorphonuclear leukocytes, No epithelial cells, and No organisms noted 04/10/2025 9:42 AM EDT [facility] Swab Left thorax structure / Unknown Non-blood Collection / Unknown 04/07/2025 2:07 PM EDT 04/07/2025 2:10 PM EDT us Steffi Palacios [facility] MICROBIOLOGY - GENERAL O RDERABLES Final Result [facility] [address] [place] [address], [place] [phone] * (ABNORMAL) TRANSTHORACIC ECHOCARDIOGRAM (TTE) COMPLETE (03/29/2025 12:10 PM EDT) Left Atrium Minor [place] 5.6 cm CV PACS Left Atrium Major [place] 5.4 cm CV PACS LA Area Sys [...] Volume 83 mL CV PACS MV Deceleration [facility] 2.9 m/s2 CV PACS E Wave Deceleration [...] at 3 days 03/06/2025 10:54 AM EDT [facility] Gram Stain Result No polymorphonuclear leukocytes, No epithelial cells, and No organisms noted 03/06/2025 10:54 AM EDT [facility] Swab Left thorax structure / Unknown Non-blood Collection / Unknown 03/03/2025 3:36 PM EDT 03/03/2025 3:40 PM EDT Tavia Chairez [facility] MICROBIOLOGY - GENERAL ORDERABLES Final Result [facility] [address] [place] [address], * CARDIAC DEVICE CHECK- IN CLINIC- MURJ (02/24/2025 3:39 PM EDT) Date Time Interrogation Session [id number] CV DEVICE CHECK Implantable Pulse Generator Human Resources Intern ERIK CV DEVICE CHECK Implantable Pulse Generator Type IPG CV DEVICE CHECK Implantable Pulse Generator Model Eloisa XT DR MONROY CV DEVICE CHECK Implantable Pulse Generator Serial Number [id number] CV DEVICE CHECK Implantable Pulse Generator Implant Date [id number] CV DEVICE CHECK Battery Status Beginning of Service CV DEVICE CHECK Luis Statistic RA Percent Paced 11.80 CV DEVICE CHECK Luis Statistic RV Percent Paced 99.90 CV DEVICE CHECK Atrial Tachy Statistic AT/AF [place] Percent 0.00 CV DEVICE CHECK Lead Channel [...] thresholds reviewed and tested * Presenting Rhythm: -ARTIFICIAL PEARL MAKER 76 bpm * No R waves @ [...] thresholds reviewed and tested * Presenting Rhythm: -ARTIFICIAL PEARL MAKER 76 bpm * No R waves @ [...] Documents on File Type Date Recorded Patient Pattern Finisher Expl anation Health Care Decision (hx) 04/10/2022 AD KIDD DIRECTIVE Health Care Decision (hx) 04/10/2022 AD KIDD DIRECTIVE Health Care Decision (hx) 04/10/2022 AD KIDD DIRECTIVE Health Care Decision (hx) 04/10/2022 AD KIDD DIRECTIVE Health Care Decision (hx) 04/10/2022 AD KIDD DIRECTIVE Health Care Decision (hx) 04/10/2022 AD KIDD DIRECTIVE Care Teams Engineering Test Specialist Relationship Specialty Start Date End Date Sary Waite MD [address], [place] [id number] PCP - General 02/08/16
--- NOTE | 2025-05-25 15:20 | PC.NURSE ---
med rec done utilizing list from daughter. changed into [facility]. process explained with patient and daughter pertaining to belongings. patient not suicidal/homicidal. daughter states minimal to no hallucinations while in department. plan for [facility] inpatient [facility] bed[facility]
--- NOTE | 2025-05-25 15:35 | PC.NURSE ---
belongings placed in [facility] 4
--- NOTE | 2025-05-25 15:51 | PHA.MEDREC ---
Addendum entered by Jaden Tejada [facility] 05/25/25 16:17: Med rec reviewed Original Note: Pharmacy Consult ? Medication Reconciliation Pharmacy has reviewed the medication reconciliation. done by nursing. Spoke to patient and patients daughter at bedside to confirm med list. Daughter states patient stopped taking Buspirone 5 mg, Lorazepam 0.5 mg, Pramipexole 1 mg or 0.25 mg, because they think these medications are making patient hallucinate. Daughter confirmed Eliquis 5 mg BID, Lantus Solostar 14 units daily, Insulin lispro per sliding scale TID, however patient hasn't been able to get from pharmacy due to it being on back order, Metoprolol Succ 150 mg (3x 50 mg ) at bedtime last filled 04/20/25 for 30 days then a new rx was called in for Metoprolol succ 50 mg daily on 05/15/25, patient has been taking 3 tas daily. Daughter states patient hasn't had any medications in over 36 hours.
[2025-05-25 16:40] LABS: Glucose, Whole Blood 215 mg/dL (60-115)
[2025-05-25] MEDS: Metoprolol Succinate ER 50 MG TAB.ER.24H PO (16:43)
[2025-05-25] MEDS: dilTIAZem HCL CD 240 MG CAP.ER.DEG PO (16:44)
[2025-05-25] MEDS: Insulin Glargine,Hum.rec.anlog 100 UNIT/ML 10 ML VIAL 14 UNIT SUBCUT (16:44)
[2025-05-25 17:58] LABS: Glucose, Whole Blood 206 mg/dL (60-115)
[2025-05-25 19:58] LABS: Glucose, Whole Blood 152 mg/dL (60-115)
--- NOTE | 2025-05-25 21:12 | MHC.EDTECH ---
Ambulated with Pt to/from bathroom. Pt unsteady while walking. Pt walked back to stretcher without incident. Resting quietly at this time
[2025-05-26 05:45] VITALS: BP 131/47; PULSE 70; RESP 16; TEMP 36.7; O2SAT 97
[2025-05-26 07:22] LABS: Glucose, Whole Blood 194 mg/dL (60-115)
[2025-05-26 08:02] VITALS: BP 159/65; PULSE 70; RESP 18; TEMP 36.2; O2SAT 94
[2025-05-26 09:38] VITALS: BP 135/59; PULSE 67
[2025-05-26] MEDS: dilTIAZem HCL CD 240 MG CAP.ER.DEG PO (09:38)
[2025-05-26] MEDS: Metoprolol Succinate ER 50 MG TAB.ER.24H PO (09:41)
[2025-05-26] MEDS: Ferrous Sulfate 324 MG TABLET.DR PO (09:41)
[2025-05-26] MEDS: Insulin Glargine,Hum.rec.anlog 100 UNIT/ML 10 ML VIAL 14 UNIT SUBCUT (09:56)
--- NOTE | 2025-05-26 10:07 | PC.NURSE ---
pt reporting discomfort with people disappearing and wants to know why. pt redirected. seems paranoid. had visit with . AOx4. camera in place for safety. no SI no HI.
[2025-05-26 12:13] LABS: Creatinine Clr Calc Pharmacy 48.0; Estimated Glomerular Filt Rate > 60
[2025-05-26 13:15] LABS: Glucose, Whole Blood 151 mg/dL (60-115)
[2025-05-26 14:31] VITALS: BP 129/42; PULSE 67; RESP 19; TEMP 37; O2SAT 98
[2025-05-26 18:15] LABS: Glucose, Whole Blood 175 mg/dL (60-115)
--- NOTE | 2025-05-26 18:38 | PC.NURSE ---
pt did not want much to eat for dinner. did not want dinner tray. Encouraged to have at least a small snack with metformin. had julissa crackers. Held insulin lispro at this time due to pt not eating dinner.
[2025-05-26 19:08] VITALS: BP 131/52; PULSE 54; RESP 16; TEMP 36.9; O2SAT 98
--- NOTE | 2025-05-26 21:12 | PC.NURSE ---
pt medicated per DEC, walked t bathroom with assistance. Pt calm and cooperative.
[2025-05-27] VITALS (7 sets, daily range): BP systolic 136–172; BP diastolic 64–92; PULSE 58–68; RESP 16–18; TEMP 36.4–37.1; O2SAT 96–98; BMI 32.2
--- NOTE | 2025-05-27 06:15 | PC.NURSE ---
pt ambulated tp bathroom with tech, feeling a bit better. Medicated per DEC.
[2025-05-27 07:14] LABS: Glucose, Whole Blood 198 mg/dL (60-115)
[2025-05-27] MEDS: Metoprolol Succinate ER 50 MG TAB.ER.24H PO (07:43)
[2025-05-27] MEDS: Ferrous Sulfate 324 MG TABLET.DR PO (07:43)
[2025-05-27] MEDS: dilTIAZem HCL CD 240 MG CAP.ER.DEG PO (07:45)
[2025-05-27] MEDS: Insulin Glargine,Hum.rec.anlog 100 UNIT/ML 10 ML VIAL 14 UNIT SUBCUT (07:46)
--- NOTE | 2025-05-27 09:21 | MHC.EDTECH ---
Assist patient with ADL's. patient brush teeth,comb hair, and washed up. patient is calm and alert. nurse aware
[2025-05-27 11:29] LABS: Glucose, Whole Blood 159 mg/dL (60-115)
--- NOTE | 2025-05-27 12:30 | HO.SUDE ---
Pt accepted to S1 inpatient [facility] unit.
[2025-05-27 13:06] LABS: Glucose, Whole Blood 163 mg/dL (60-115)
[2025-05-27 16:26] LABS: Glucose, Whole Blood 167 mg/dL (60-115)
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
[2025-05-27 20:33] LABS: Glucose, Whole Blood 160 mg/dL (60-115)
--- NOTE | 2025-05-28 | ECG_ITS ---
Test Reason : qtc check Blood Pressure : */* mmHG Vent. Rate : 76 BPM Atrial Rate : 76 BPM P-R Int : 208 ms QRS Dur : 188 ms QT Int : 500 ms P-R-T Axes : 54 -33 119 degrees QTcB Int : 562 ms Atrial-sensed ventricular-paced rhythm Abnormal ECG When compared with ECG of 21-May-2025 10:36, Vent. rate has increased by 8 bpm Referred By: David Martini Electronically Signed By: Baltazar Mccord
[2025-05-28 06:06] LABS: Glucose, Whole Blood 207 mg/dL (60-115)
[2025-05-28 08:00] VITALS: BP 165/69; PULSE 61; RESP 18; TEMP 36.7; O2SAT 97
[2025-05-28 08:01] VITALS: BP 165/69; PULSE 61
[2025-05-28] MEDS: Metoprolol Succinate ER 50 MG TAB.ER.24H PO (08:01)
[2025-05-28] MEDS: Insulin Glargine,Hum.rec.anlog 100 UNIT/ML 10 ML VIAL 14 UNIT SUBCUT (08:01)
[2025-05-28 08:02] VITALS: BP 165/69; PULSE 61
[2025-05-28] MEDS: dilTIAZem HCL CD 240 MG CAP.ER.DEG PO (08:02)
[2025-05-28] MEDS: Ferrous Sulfate 324 MG TABLET.DR PO (08:02)
[2025-05-28 08:03] VITALS: BP 165/69
--- NOTE | 2025-05-28 08:18 | P.CONHOSP_ITS ---
History of Present Illness Data of Consult Service Date: 05/28/25 Primary Care Provider: Sary Waite MD HPI Reason for consult: Medical management 72-year-old female with a past medical history of stage IV NS CLL which was in remission with new pulmonary nodule, CAD, CABG x2 in 2018, aortic stenosis, status post TA VR, pacemaker, atrial tach, hypertension, hyperlipidemia, type 2 diabetes, history of PE on Eliquis, anxiety and depression, auditory and visual hallucinations, GERD and constipation. Patient was recently inpatient from May 21- with toxic encephalopathy felt related to medications. Her ECG was unremarkable, her troponins were negative, her CBC and her chemistry labs were unremarkable. CT head with no evidence of intracranial hemorrhage lesions or mass effect, she did have a CT of her chest which identified a new left upper pulmonary mass concerning for neoplasm, she is scheduled to follow up with Dr. Perdue as a outpatient. She is now admitted back here for continued hallucinations. She is seen and examined, her only concern is that her gait feels unsteady because she is not wearing her shoes, nursing is made aware. Patient reports deshawn has been hearing voices for 35 years. He denies any shortness of breath, dizziness, lightheadedness or any other concerning symptoms. Patient noted to have a fall on 05/25, CT and cervical spine x-rays were negative at that time. Review of Systems 2 Review of Systems: Denies any shortness of breath, chest pain, dizziness, lightheadedness, abdominal pain or discomfort, nausea vomiting or diarrhea PMFSH Medical History Depression with anxiety Hx of aortic valve stenosis Depression Diabetes mellitus with hyperglycemia, with long-term current use of insulin Swelling of knee joint, left Hx of sigmoidoscopy Metformin adverse reaction Adenocarcinoma of left lung (~2021) Aortic stenosis Atypical migraine Transient cerebral ischemia AVM (arteriovenous malformation) of colon Normocytic anemia Nonrheumatic mitral valve regurgitation Nonrheumatic aortic (valve) stenosis Obesity History of blood transfusion Barretts esophagus AAA (abdominal aortic aneurysm) (~2008) Bleeding hemorrhoids Anemia Arthritis On anticoagulant therapy (~10/2020) On beta ashleigh at home Pulmonary nodules Mixed dyslipidemia Vitamin B12 deficiency GIB (gastrointestinal bleeding) COPD (chronic obstructive pulmonary disease) Bilateral pulmonary embolism (~10/2020) Restless leg syndrome Irritable bowel syndrome with both constipation and diarrhea GERD without esophagitis CAD (coronary artery disease) Essential hypertension Family History Father HTN (hypertension) Myocardial infarction Hyperlipidemia Abdominal aneurysm Mother HTN (hypertension) Myocardial infarction Hyperlipidemia Brother Alzheimer's disease Substance abuse Sister Rheumatoid arthritis Brother Rheumatoid arthritis Maternal Aunt Diabetes mellitus Lung cancer Maternal Uncle Diabetes mellitus Son No problems noted. Daughter No problems noted. Surgical History S/P TAVR (transcatheter aortic valve replacement) History of lung biopsy (~2021) History of esophagogastroduodenoscopy (EGD) (~2020) History of hysterectomy History of colonoscopy (~2018) History of coronary artery bypass graft x 2 (~2017) History of total right knee replacement (TKR) (~2015) History of bilateral breast reduction surgery (~2010) S/P excision of lipoma (~2017) History of heart artery stent (~2007) Social History Household Members: Spouse and Other Household Members Other:: grandson Housing: House Do you presently have visiting nurse or other home services: No Alcohol intake: current Alcohol intake frequency: does not drink Patient Tobacco Use Status: Never used Tobacco Tobacco use type: Cigarette Cigarette Packs Per Day: 2 Years Smoked: 30 Smoked in Last 30 Days: No e-Cigarette/Vaping Use: Never Used Second Hand Smoke Exposure: No Use of substances other than those prescribed or required for medical reasons: No Substance Use Type: Marijuana Currently Displaying Signs/Symptoms of Drug Intoxication Withdrawal: No Have you been hit, kicked, punched, or otherwise hurt by someone within the past year? If so, by whom?: No Do you feel safe in your current relationship?: Yes Is there a partner from a previous relationship who is making you feel unsafe now?: No Are you made to feel afraid or neglected: No Advance Directives: No Advance Directives Information Provided: No Advance Directives on File: Yes Advance Directives Date on File: 04/27/22 Do you have thoughts of harming others: None Do you have a plan to hurt others: No Plan Recently lost weight without trying: No Nutrition Risks: No Nutritional Risk Patient : No : No Poor oral hygiene: No service: No Current occupational status: retired 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/ [employer] Cognitive needs: No Hearing needs: No Vision needs: Yes Meds Allergies Allergy/AdvReac Type Severity Reaction Status Date / Time sulfamethoxazole (From Allergy Severe Rash Verified 05/25/25 10:31 Bactrim) adhesive tape (ADHESIVE TAPE) Allergy Intermediate BLISTERS Verified 05/25/25 10:31 clonidine Allergy makes pt Verified 05/25/25 10:31 hulusinate adhesive AdvReac Severe BLISTERS Verified 05/25/25 10:31 gabapentin AdvReac Severe hallucinati Verified 05/25/25 10:31 on hydromorphone (From Dilaudid) AdvReac Severe Hallucinati Verified 05/25/25 10:31 ons morphine AdvReac Severe hallucinati Verified 05/25/25 10:31 on glue AdvReac Severe BLISTERS Uncoded 05/21/25 10:24 Active Medications: Current Medications Acetaminophen (Acetaminophen 325 Mg Tablet) 650 mg PO Q6H PRN PRN Reason: Headache/Pain, Scale 1-10 Al Hydroxide/Mg Hydroxide (Magnesium Hydrox/Alum Hydrox 30 Ml Oral.Susp) 30 ml PO Q6H PRN PRN Reason: Heartburn/Nausea Apixaban (Apixaban 5 Mg Tablet) 5 mg PO BID [facility] Last Admin: 05/28/25 08:01 Dose: 5 mg Atorvastatin Calcium (Atorvastatin Calcium 80 Mg Tablet) 80 mg PO BEDTIME [facility] Last Admin: 05/27/25 20:28 Dose: 80 mg Diltiazem HCl (Diltiazem Hcl Cd 240 Mg Cap.Er.Deg) 240 mg PO DAILY [facility]; Protocol Last Admin: 05/28/25 08:02 Dose: 240 mg Ferrous Sulfate (Ferrous Sulfate 324 Mg Tablet.Dr) 324 mg PO DAILY [facility] Last Admin: 05/28/25 08:02 Dose: 324 mg Folic Acid (Folic Acid 1 Mg Tablet) 1 mg PO DAILY [facility] Last Admin: 05/28/25 08:02 Dose: 1 mg Insulin Glargine (Insulin Glargine,Hum.Rec.Anlog 100 Unit/Ml 10 Ml Vial) 14 unit SUBCUT DAILY [facility] Last Admin: 05/28/25 08:01 Dose: 14 unit Insulin Human Lispro (Insulin Lispro 100 Unit/Ml 3 Ml Vial) 0 unit SUBCUT TIDAC [facility]; Protocol Last Admin: 05/28/25 08:00 Dose: 4 unit Isosorbide Mononitrate (Isosorbide Mononitrate 30 Mg Tab.Er.24h) 30 mg PO DAILY [facility]; Protocol Last Admin: 05/28/25 08:02 Dose: 30 mg Lisinopril (Lisinopril 2.5 Mg Tablet) 2.5 mg PO DAILY [facility]; Protocol Last Admin: 05/28/25 08:03 Dose: 2.5 mg Loratadine (Loratadine 10 Mg Tablet) 10 mg PO DAILY [facility] Last Admin: 05/28/25 08:03 Dose: 10 mg Magnesium Hydroxide (Milk Of Magnesia 30 Ml Oral.Susp) 30 ml PO DAILY PRN PRN Reason: Constipation Metformin HCl (Metformin Hcl 1,000 Mg Tablet) 1,000 mg PO BIDWM [facility] Last Admin: 05/28/25 08:03 Dose: 1,000 mg Metoprolol Succinate (Metoprolol Succinate Er 50 Mg Tab.Er.24h) 50 mg PO DAILY [facility]; Protocol Last Admin: 05/28/25 08:01 Dose: 50 mg Non-Formulary Medication (Ysefjr-Lhjkmade-Rzxdbdz [Zenpep]) 1 cap PO TID [facility] Omeprazole (Omeprazole 40 Mg Capsule.Dr) 40 mg PO DAILY@0630 [facility] Last Admin: 05/28/25 05:35 Dose: 40 mg Vitamin D (Cholecalciferol (Vitamin D3) 25 Mcg Tablet) 50 mcg PO DAILY [facility] Last Admin: 05/28/25 08:01 Dose: 50 mcg Home Medications ?Medication ?Instructions ?Recorded ?Confirmed ?Last Taken ?Type cholecalciferol (vitamin D3) 50 50 mcg PO DAILY 05/25/25 05/18/25 History mcg (2,000 unit) capsule acetaminophen 500 mg tablet 500 mg PO BID 11/07/2010/0705/18/25 History isosorbide mononitrate 30 mg 30 mg PO DAILY 10/02/21 0 05/25/25 05/23/25 History tablet,extended release 24 hr loperamide 2 mg capsule 2 mg PO TID PRN yes 03/30/24 05/25/25 Unknown History diltiazem HCl 240 mg 240 mg PO DAILY 05/21/2510/0705/23/25 History capsule,extended release 24 hr (Cartia XT) hyoscyamine sulfate 0.125 mg tablet 0.125 mg PO BID MI N for indigestion 05/21/25 05/25/25 05/18/25 History insulin glargine 100 unit/mL (3 14 unit subcut DAILY 0 05/21/25 05/25/25 05/23/25 History mL) subcutaneous pen (Lantus Solostar U-100 Insulin) insulin lispro 100 unit/mL 1 sliding scale dose subcut TIDAC 05/21/25 05/25/25 05/18/25 History subcutaneous half-unit pen (Humalog Panda KwikPen (U-100)) omeprazole 40 mg capsule,delayed 40 mg PO DAILY@0630 0 05/21/25 05/25/25 05/23/25 History release trazodone 50 mg tablet 50 mg PO BEDTIME 05/21/2505/23/25 History metoprolol succinate 50 mg 150 mg PO BEDTIME 05/25/25 05/25/25 05/23/25 History tablet,extended release 24 hr Physical Exam 2 Vital Signs and Narrative: Vital Signs: Last Vital Signs Temp 97.7 F 05/27/25 20:00 Pulse 61 05/28/25 08:02 Resp 18 05/27/25 20:00 BP 165/69 H 05/28/25 08:03 Pulse Ox 97 05/27/25 20:00 O2 Del Method Room Air 05/27/25 20:00 O2 Flow Rate 97 05/27/25 07:07 BMI result Body Mass Index 32.2 CONST: Alert and oriented, in NAD. Well nourished HEENT: Normocephalic, atraumatic, MMM, Eyes clear, Neck supple RESP: Lungs clear, RRR even and regular HEART:,RRR, S1, S2. No murmur, no edema GI:Abdomen Soft NT, ND. + BS times four :Deferred SKIN: Warm dry and intact, no visible lesions or rashes NEURO:CN II-XII Intact bilaterally, Sensation intact. Speech clear PSYCH: Normal affect Results Labs 05/25/25 11:08 05/26/25 11:32 Labs: Laboratory Results - last 24 hr 05/27/25 05/27/25 05/27/25 11:25 13:03 16:16 POC Glucose 159 H 163 H 167 H 05/27/25 05/28/25 20:29 06:02 POC Glucose 160 H 207 H Assessment and Plan (1) Essential hypertension: Status: Acute Plan 80-year-old female with complicated past medical history now admitted to inpatient psych for continued care for visual and auditory hallucinations. Depression and anxiety/Visual and auditory hallucinations Treatment per psychiatric disorder Large doses of narcotics that patient was on 10 mg every 8 hours may have been contributing to her condition Restless legs syndrome/chronic pain disorder Recent hospitalization recommended lower dose of pramipexole which may be contributing to the visual hallucinations Not currently taking but if it is restarted consider lower dose Offer Tylenol, low-dose of oxycodone ordered as needed History of stage IV and a CLL in remission with new pulmonary nodule New 1.6 x 1.2 left upper lobe mass discovered during recent hospitalization Patient should follow up with Dr. Perdue upon discharge CAD/status post CABG/aortic stenosis/status post TAVR/pacemaker/atrial fib/hypertension/hyperlipidemia Patient with prolonged QTC on recent EKG, avoid medications that prolong QTC Continue diltiazem, Imdur, Zestril, Toprol-XL, Eliquis Pancreatic insufficiency Continue Creon t.i.d. with with meals Type 2 diabetes Continue glargine and insulin sliding scale Continue metformin GERD/constipation Continue omeprazole as needed Miralax and senna ordered Thank you for allowing me to participate in the care of this patient. Will continue to follow as needed. Please reconsult of any acute concerns or issues arise
[2025-05-28 09:10] LABS: Hemoglobin A1C 209.5595 umol/L; Total Hemoglobin (HGBA1C) 3079.3531 umol/L
[2025-05-28 09:25] LABS: Cholesterol 129 mg/dL (<200); HDL Cholesterol 47 mg/dL (>40); Triglycerides 145 mg/dL (<150)
[2025-05-28 09:42] LABS: Free T4 (Free Thyroxine) 1.19 ng/dL (0.71-1.85); Thyroid Stimulating Hormone 2.99 uIU/mL (0.32-4.0)
[2025-05-28 10:00] LABS: Folate 17.2 ng/mL (> or = 4.0); Vitamin B12 242 pg/mL (200-900)
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
[2025-05-28 11:29] LABS: Glucose, Whole Blood 193 mg/dL (60-115)
--- NOTE | 2025-05-28 13:16 | P.CNNE_ITS ---
History of Present Illness Data of Consult Service Date: 05/28/25 Primary Care Provider: Sary Waite MD HPI Reason for consult: Restless legs syndrome and hallucination 80 years old woman who had suffered from restless legs syndrome she said all her life. Every night her upper parts of legs or her feet would get severe urge to move and she would have to keep on moving or get up and walk around. She said that this would impact her sleep so much that sometime she would not sleep for days. She was prescribed pramipexole and she said that dose was slowly increased and then she started taking 2 to 3 times a day. Review of her primary care's notes suggested that she was prescribed 0.25 mg pramipexole and then half a mg at night. At this time she was on psychiatric floor apparently for hallucinations. When I saw her she was walking around in the hallway. Review of Systems 2 Review of Systems: No complain of headache or recent cold or flu-like illness or seizure-like episode PMFSH Past Medical History Medical History Depression with anxiety Hx of aortic valve stenosis Depression Diabetes mellitus with hyperglycemia, with long-term current use of insulin Swelling of knee joint, left Hx of sigmoidoscopy Metformin adverse reaction Adenocarcinoma of left lung (~2021) Aortic stenosis Atypical migraine Transient cerebral ischemia AVM (arteriovenous malformation) of colon Normocytic anemia Nonrheumatic mitral valve regurgitation Nonrheumatic aortic (valve) stenosis Obesity History of blood transfusion Barretts esophagus AAA (abdominal aortic aneurysm) (~2008) Bleeding hemorrhoids Anemia Arthritis On anticoagulant therapy (~10/2020) On beta ashleigh at home Pulmonary nodules Mixed dyslipidemia Vitamin B12 deficiency GIB (gastrointestinal bleeding) COPD (chronic obstructive pulmonary disease) Bilateral pulmonary embolism (~10/2020) Restless leg syndrome Irritable bowel syndrome with both constipation and diarrhea GERD without esophagitis CAD (coronary artery disease) Essential hypertension Family History Family History Father HTN (hypertension) Myocardial infarction Hyperlipidemia Abdominal aneurysm Mother HTN (hypertension) Myocardial infarction Hyperlipidemia Brother Alzheimer's disease Substance abuse Sister Rheumatoid arthritis Brother Rheumatoid arthritis Maternal Aunt Diabetes mellitus Lung cancer Maternal Uncle Diabetes mellitus Son No problems noted. Daughter No problems noted. Surgical History Surgical History S/P TAVR (transcatheter aortic valve replacement) History of lung biopsy (~2021) History of esophagogastroduodenoscopy (EGD) (~2020) History of hysterectomy History of colonoscopy (~2018) History of coronary artery bypass graft x 2 (~2017) History of total right knee replacement (TKR) (~2015) History of bilateral breast reduction surgery (~2010) S/P excision of lipoma (~2017) History of heart artery stent (~2007) Social History Social History Household Members: Spouse and Other Household Members Other:: grandson Housing: House Do you presently have visiting nurse or other home services: No Alcohol intake: current Alcohol intake frequency: does not drink Patient Tobacco Use Status: Never used Tobacco Tobacco use type: Cigarette Cigarette Packs Per Day: 2 Years Smoked: 30 Smoked in Last 30 Days: No e-Cigarette/Vaping Use: Never Used Second Hand Smoke Exposure: No Use of substances other than those prescribed or required for medical reasons: No Substance Use Type: Marijuana Currently Displaying Signs/Symptoms of Drug Intoxication Withdrawal: No Have you been hit, kicked, punched, or otherwise hurt by someone within the past year? If so, by whom?: No Do you feel safe in your current relationship?: Yes Is there a partner from a previous relationship who is making you feel unsafe now?: No Are you made to feel afraid or neglected: No Advance Directives: No Advance Directives Information Provided: No Advance Directives on File: Yes Advance Directives Date on File: 04/27/22 Do you have thoughts of harming others: None Do you have a plan to hurt others: No Plan Recently lost weight without trying: No Nutrition Risks: No Nutritional Risk Patient : No : No Poor oral hygiene: No service: No Current occupational status: retired 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/ [employer] Cognitive needs: No Hearing needs: No Vision needs: Yes Meds Allergies Allergy/AdvReac Type Severity Reaction Status Date / Time sulfamethoxazole (From Allergy Severe Rash Verified 05/25/25 10:31 Bactrim) adhesive tape (ADHESIVE TAPE) Allergy Intermediate BLISTERS Verified 05/25/25 10:31 clonidine Allergy makes pt Verified 05/25/25 10:31 hulusinate adhesive AdvReac Severe BLISTERS Verified 05/25/25 10:31 gabapentin AdvReac Severe hallucinati Verified 05/25/25 10:31 on hydromorphone (From Dilaudid) AdvReac Severe Hallucinati Verified 05/25/25 10:31 ons morphine AdvReac Severe hallucinati Verified 05/25/25 10:31 on glue AdvReac Severe BLISTERS Uncoded 05/21/25 10:24 Active Medications: Current Medications Acetaminophen (Acetaminophen 325 Mg Tablet) 650 mg PO Q6H PRN PRN Reason: Headache/Pain, Scale 1-10 Last Admin: 05/28/25 10:49 Dose: 650 mg Al Hydroxide/Mg Hydroxide (Magnesium Hydrox/Alum Hydrox 30 Ml Oral.Susp) 30 ml PO Q6H PRN PRN Reason: Heartburn/Nausea Apixaban (Apixaban 5 Mg Tablet) 5 mg PO BID [facility] Last Admin: 05/28/25 08:01 Dose: 5 mg Atorvastatin Calcium (Atorvastatin Calcium 80 Mg Tablet) 80 mg PO BEDTIME [facility] Last Admin: 05/27/25 20:28 Dose: 80 mg Diltiazem HCl (Diltiazem Hcl Cd 240 Mg Cap.Er.Deg) 240 mg PO DAILY [facility]; Protocol Last Admin: 05/28/25 08:02 Dose: 240 mg Ferrous Sulfate (Ferrous Sulfate 324 Mg Tablet.Dr) 324 mg PO DAILY [facility] Last Admin: 05/28/25 08:02 Dose: 324 mg Folic Acid (Folic Acid 1 Mg Tablet) 1 mg PO DAILY [facility] Last Admin: 05/28/25 08:02 Dose: 1 mg Insulin Glargine (Insulin Glargine,Hum.Rec.Anlog 100 Unit/Ml 10 Ml Vial) 14 unit SUBCUT DAILY [facility] Last Admin: 05/28/25 08:01 Dose: 14 unit Insulin Human Lispro (Insulin Lispro 100 Unit/Ml 3 Ml Vial) 0 unit SUBCUT TIDAC [facility]; Protocol Last Admin: 05/28/25 11:29 Dose: 2 unit Isosorbide Mononitrate (Isosorbide Mononitrate 30 Mg Tab.Er.24h) 30 mg PO DAILY [facility]; Protocol Last Admin: 05/28/25 08:02 Dose: 30 mg Lisinopril (Lisinopril 2.5 Mg Tablet) 2.5 mg PO DAILY [facility]; Protocol Last Admin: 05/28/25 08:03 Dose: 2.5 mg Loratadine (Loratadine 10 Mg Tablet) 10 mg PO DAILY [facility] Last Admin: 05/28/25 08:03 Dose: 10 mg Magnesium Hydroxide (Milk Of Magnesia 30 Ml Oral.Susp) 30 ml PO DAILY PRN PRN Reason: Constipation Metformin HCl (Metformin Hcl 1,000 Mg Tablet) 1,000 mg PO BIDWM [facility] Last Admin: 05/28/25 08:03 Dose: 1,000 mg Metoprolol Succinate (Metoprolol Succinate Er 50 Mg Tab.Er.24h) 50 mg PO DAILY [facility]; Protocol Last Admin: 05/28/25 08:01 Dose: 50 mg Non-Formulary Medication (Vkbzoe-Jkimrlgt-Bwojjof [Zenpep]) 1 cap PO TID [facility] Omeprazole (Omeprazole 40 Mg Capsule.Dr) 40 mg PO DAILY@0630 [facility] Last Admin: 05/28/25 05:35 Dose: 40 mg Vitamin D (Cholecalciferol (Vitamin D3) 25 Mcg Tablet) 50 mcg PO DAILY [facility] Last Admin: 05/28/25 08:01 Dose: 50 mcg Home Medications ?Medication ?Instructions ?Recorded ?Confirmed ?Last Taken ?Type cholecalciferol (vitamin D3) 50 50 mcg PO DAILY 05/25/25 05/18/25 History mcg (2,000 unit) capsule acetaminophen 500 mg tablet 500 mg PO BID 11/07/2010/0705/18/25 History isosorbide mononitrate 30 mg 30 mg PO DAILY 10/02/21 0 05/25/25 05/23/25 History tablet,extended release 24 hr loperamide 2 mg capsule 2 mg PO TID PRN yes 03/30/24 05/25/25 Unknown History diltiazem HCl 240 mg 240 mg PO DAILY 05/21/2510/0705/23/25 History capsule,extended release 24 hr (Cartia XT) hyoscyamine sulfate 0.125 mg tablet 0.125 mg PO BID [facility] for indigestion 05/21/25 05/25/25 05/18/25 History insulin glargine 100 unit/mL (3 14 unit subcut DAILY 0 05/21/25 05/25/25 05/23/25 History mL) subcutaneous pen (Lantus Solostar U-100 Insulin) insulin lispro 100 unit/mL 1 sliding scale dose subcut TIDAC 05/21/25 05/25/25 05/18/25 History subcutaneous half-unit pen (Humalog Panda Francisco (U-100)) omeprazole 40 mg capsule,delayed 40 mg PO DAILY@0630 0 05/21/25 05/25/25 05/23/25 History release trazodone 50 mg tablet 50 mg PO BEDTIME 05/21/2505/23/25 History metoprolol succinate 50 mg 150 mg PO BEDTIME 05/25/25 05/25/25 05/23/25 History tablet,extended release 24 hr Physical Exam 2 Vital Signs: Vital Signs: Last Vital Signs Temp 98.1 F 05/28/25 08:00 Pulse 61 05/28/25 08:02 Resp 18 05/28/25 08:00 BP 165/69 H 05/28/25 08:03 Pulse Ox 97 05/28/25 08:00 O2 Del Method Room Air 05/28/25 08:00 O2 Flow Rate 97 05/27/25 07:07 BMI result Body Mass Index 32.2 Neuro: Other: He is alert and awake with normal spontaneity of speech fluency comprehension and affect. She is cooperative. Face is symmetrical. Visual rodas are full. Deep tendon reflexes are trace to absent with flexor plantars. Gait for her age group is normal. There was no abnormal movement. No abnormal posture is noted. Speech is normal. Results Labs 05/25/25 11:08 05/26/25 11:32 Labs: Head CT revealed mild generalized cerebral atrophy. Microbiology Microbiology Results: Microbiology 05/25/25 Unknown Urine clean catch - Clean Catch Midstream Urine Culture - Final Assessment and Plan (1) Restless leg syndrome: Status: Acute Main or active neurological issue at this time seems to be chronic restless legs syndrome, probably genetic based. If what she reported to me was correct, which means that she was taking pramipexole 2 to 3 times a day, it would result in what we call augmentation of restless legs syndrome and worsening of symptoms. In addition pramipexole type of medicines, if taken in higher doses, sometime result in behavioral symptoms including hallucinations. She was advised to not take medicines for restless legs syndrome during daytime and only take it at bedtime. Dose of this medicine could go up to 1 mg at night. Some patients even take higher than that. I would start with happened mg given at bedtime. If not improved, an alternate medicine can be tried. Treatment of augmentation of restless legs syndrome is not easy and sometime requires completely stopping that triggering medicine for a few weeks at least before restarting it with a smaller dose. For now, start with 0.5 mg pramipexole at night. As far as any other cause for hallucination is concerned, clinical follow-up should continue. Procedures Date of Service Date of Service: 05/28/25
[2025-05-28 14:45] LABS: Iron 82 mcg/dL (30-160); Percent Iron Saturation 25 % (15-50); Total Iron Binding Capacity 326 mcg/dL (228-428); Unsaturated Iron Binding 244 ug/dL
--- NOTE | 2025-05-28 15:32 | P.CNHO_ITS ---
Subjective - Subjective Chief complaint: Visual hallucinations Patient: known to practice within the last 3 years Consult date: 05/28/25 Primary Care Provider: Sary Waite MD Medical Summary: Diagnosis: Metastatic lung cancer March 2022, Spontaneous pulmonary embolism October 2020 Anemia secondary to GI bleeding, AV malformations and hemorrhoids Hematological workup in 2020 revealed mildly elevated LDH of 232, faint IgG gamma monoclonal protein without elevation of IgG are suppression of other immunoglobulin levels. No recurrent kidney or liver dysfunction or hypercalcemia. Normal thyroid functions. Normal iron studies, vitamin B12 and folic acid levels. Spontaneous acute pulmonary embolism diagnosed at [facility] in October 2020. CT chest angio revealed 0.5 cm left upper lobe pulmonary nodule on 10/16/2020. Patient is a former smoker 2 PPD x 31 years. She quit in 1990. Patient followed by [place]. Gonzalez [place] [facility] without contrast in July showed slight increase in size of left upper lobe pulmonary nodule measuring 1 x 0.7 cm. PET-CT on 09/12/2021 showed weekly FDG avid left upper lobe pulmonary nodule. No additional FDG uptake. 09/25/2021 PFTs where reasonably good. 11/28/2020 CT TAVR angio abdomen and pelvis showed 8 mm irregular nodule in posterior left upper lobe. 01/2022 thoracic surgeon felt patient able to tolerate lobectomy from a pulmonary standpoint. 01/30/2022 cardiology had plans for aortic valve replacement but this was on hold due to lung nodule. Multi valvular disease including aortic stenosis, mitral regurgitation and chronically occluded RCA noted. Patient felt to be moderate risk for surgery given her valve disease but not prohibitive for surgery. 02/15/2022 CT-guided biopsy of left upper lobe lung nodule-adenocarcinoma, moderately differentiated, acinar and lepidic types. Surgery versus SBRT discussed with patient. Patient preferred SBRT. PET-CT performed at [facility] on 04/10/2022 revealed mild FDG activity in left upper lobe subpleural nodule, SUV 3.1 which is biopsy-proven left upper lobe lung cancer. Mild FDG activity in left hilar region SUV 3.3. Focal FDG activity in right anterior 3rd rib SUV 3.8 and cortical destructive changes of iliac crest on the right with FDG activity of 9.4 suspicious for metastatic lesion. She has oligometastatic disease. However she has been deemed not a surgical candidate for her lung cancer because of underlying aortic stenosis and coronary artery disease. We discussed chemotherapy combined with immunotherapy/pembrolizumab. She was offered carboplatin with pemetrexed plus Keytruda. The other option is single agent pembrolizumab. She preferred single agent pembrolizumab. 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 She was diagnosed with metastatic disease, she received immunotherapy in 2021. However, treatment was stopped because of intolerable side effects. She was being monitored and has remained in remission until last year. Patient has been admitted to [facility] because of visual hallucinations. She was admitted to [facility] [place] few days ago, extensive workup including blood cultures, ECG, CT head were negative. CT chest showed a 1.6 x 1.2 cm left upper lobe pulmonary nodules suspicious for neoplasm. Of note patient has had a medication pramipexole increased to 1 mg 3 times a day for restless legs syndrome in the recent weeks. She has been on long-term trazodone, oxycodone and occasional lorazepam. At this time patient is alert and oriented. She is not experiencing any hallucinations. She was able to converse well in full sentences. 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 Barretts esophagus Bilateral pulmonary embolism Onset Date: ~10/2020 Bleeding hemorrhoids CAD (coronary artery disease) COPD (chronic obstructive pulmonary disease) Depression Depression with anxiety Diabetes mellitus with hyperglycemia, with long-term current use of insulin Essential hypertension GERD without esophagitis GIB (gastrointestinal bleeding) History of blood transfusion Hx of aortic valve stenosis Hx of sigmoidoscopy Irritable bowel syndrome with both constipation and diarrhea Metformin adverse reaction Mixed dyslipidemia Nonrheumatic aortic (valve) stenosis Nonrheumatic mitral valve regurgitation Normocytic anemia Obesity On anticoagulant therapy Onset Date: ~10/2020 On beta ashleigh at home Pulmonary nodules Restless leg syndrome Swelling of knee joint, left Transient cerebral ischemia Vitamin B12 deficiency Family History: Family History (Last Reviewed 05/21/25 @ 16:02 by Gonzalo Vickers MD) Father HTN (hypertension) Myocardial infarction Hyperlipidemia Abdominal aneurysm Mother HTN (hypertension) Myocardial infarction Hyperlipidemia Brother Alzheimer's disease Substance abuse Sister Rheumatoid arthritis Brother Rheumatoid arthritis Maternal Aunt Diabetes mellitus Lung cancer Maternal Uncle Diabetes mellitus Son No problems noted. Daughter No problems noted. Surgical History: Surgical History (Last Reviewed 05/22/25 @ 10:34 by Lillie Espinosa, PT) History of bilateral breast reduction surgery Onset Date: ~2010 History of colonoscopy Onset Date: ~2018 History of coronary artery bypass graft x 2 Onset Date: ~2017 History of esophagogastroduodenoscopy (EGD) Onset Date: ~2020 History of heart artery stent Onset Date: ~2007 History of hysterectomy History of lung biopsy Onset Date: ~2021 History of total right knee replacement (TKR) Onset Date: ~2015 S/P excision of lipoma Onset Date: ~2017 S/P TAVR (transcatheter aortic valve replacement) Social History: Social History (Last Reviewed 05/21/25 @ 16:02 by Gonzalo Vickers MD) Living Situation History: Household Members: Spouse Household Members: Other Household Members Other:: grandson Housing: House Do you presently have visiting nurse or other home services: No Alcohol History Details: 1. How often do you have a drink containing alcohol?: a. Never 2. How many drinks containing alcohol do you have on a typical day when you are drinking?: a. 1 or 2 3. How often do you have six or more drinks on one occasion?: a. Never AUDIT-C Alcohol total score: 0 Currently Displaying Signs/Symptoms of Alcohol Withdrawal: No Tobacco History: Patient Tobacco Use Status: Never used Tobacco Tobacco use type: Cigarette Cigarette Packs Per Day: 2 Years Smoked: 30 Smoked in Last 30 Days: No e-Cigarette/Vaping Use: Never Used Second Hand Smoke Exposure: No Substance Use History: Use of substances other than those prescribed or required for medical reasons : No Substance Use Type: Marijuana Currently Displaying Signs/Symptoms of Drug Intoxication Withdrawal: No Domestic Abuse History: Have you been hit, kicked, punched, or otherwise hurt by someone within the past year? If so, by whom?: No Do you feel safe in your current relationship?: Yes Is there a partner from a previous relationship who is making you feel unsafe now?: No Are you made to feel afraid or neglected: No Advance Directives: Advance Directives: No Advance Directives Information Provided: No Advance Directives on File: Yes Advance Directives Date on File: 04/27/22 Homicidal Assessment: Do you have thoughts of harming others: None Do you have a plan to hurt others: No Plan Nutrition Assessment: Recently lost weight without trying: No Nutrition Risks: No Nutritional Risk Patient : No : No Poor oral hygiene: No Occupation Assessmet: service: No Current occupational status: retired 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 Home Medications and Allergies Current Medications: Current Medications Acetaminophen (Acetaminophen 325 Mg Tablet) 650 mg PO Q6H PRN PRN Reason: Headache/Pain, Scale 1-10 Last Admin: 05/28/25 10:49 Dose: 650 mg Al Hydroxide/Mg Hydroxide (Magnesium Hydrox/Alum Hydrox 30 Ml Oral.Susp) 30 ml PO Q6H PRN PRN Reason: Heartburn/Nausea Apixaban (Apixaban 5 Mg Tablet) 5 mg PO BID [facility] Last Admin: 05/28/25 08:01 Dose: 5 mg Atorvastatin Calcium (Atorvastatin Calcium 80 Mg Tablet) 80 mg PO BEDTIME [facility] Last Admin: 05/27/25 20:28 Dose: 80 mg Diltiazem HCl (Diltiazem Hcl Cd 240 Mg Cap.Er.Deg) 240 mg PO DAILY [facility]; Protocol Last Admin: 05/28/25 08:02 Dose: 240 mg Ferrous Sulfate (Ferrous Sulfate 324 Mg Tablet.Dr) 324 mg PO DAILY [facility] Last Admin: 05/28/25 08:02 Dose: 324 mg Folic Acid (Folic Acid 1 Mg Tablet) 1 mg PO DAILY [facility] Last Admin: 05/28/25 08:02 Dose: 1 mg Insulin Glargine (Insulin Glargine,Hum.Rec.Anlog 100 Unit/Ml 10 Ml Vial) 14 unit SUBCUT DAILY [facility] Last Admin: 05/28/25 08:01 Dose: 14 unit Insulin Human Lispro (Insulin Lispro 100 Unit/Ml 3 Ml Vial) 0 unit SUBCUT TIDAC [facility]; Protocol Last Admin: 05/28/25 11:29 Dose: 2 unit Isosorbide Mononitrate (Isosorbide Mononitrate 30 Mg Tab.Er.24h) 30 mg PO DAILY [facility]; Protocol Last Admin: 05/28/25 08:02 Dose: 30 mg Lisinopril (Lisinopril 2.5 Mg Tablet) 2.5 mg PO DAILY [facility]; Protocol Last Admin: 05/28/25 08:03 Dose: 2.5 mg Loratadine (Loratadine 10 Mg Tablet) 10 mg PO DAILY [facility] Last Admin: 05/28/25 08:03 Dose: 10 mg Magnesium Hydroxide (Milk Of Magnesia 30 Ml Oral.Susp) 30 ml PO DAILY PRN PRN Reason: Constipation Metformin HCl (Metformin Hcl 1,000 Mg Tablet) 1,000 mg PO BIDWM [facility] Last Admin: 05/28/25 08:03 Dose: 1,000 mg Metoprolol Succinate (Metoprolol Succinate Er 50 Mg Tab.Er.24h) 50 mg PO DAILY [facility]; Protocol Last Admin: 05/28/25 08:01 Dose: 50 mg Non-Formulary Medication (Ragttv-Blzzfotm-Kfdagxx [Zenpep]) 1 cap PO TID [facility] Omeprazole (Omeprazole 40 Mg Capsule.) 40 mg PO DAILY@0630 [facility] Last Admin: 05/28/25 05:35 Dose: 40 mg Vitamin D (Cholecalciferol (Vitamin D3) 25 Mcg Tablet) 50 mcg PO DAILY [facility] Last Admin: 05/28/25 08:01 Dose: 50 mcg Home Medications ?Medication ?Instructions ?Recorded ?Confirmed ?Type cholecalciferol (vitamin D3) 50 50 mcg PO DAILY 10/26/20 05/25/25 Histor y mcg (2,000 unit) capsule acetaminophen 500 mg tablet 500 mg PO BID 11/07/20 05/25/25 History isosorbide mononitrate 30 mg 30 mg PO DAILY 10/02/21 05/25/25 History tablet,extended release 24 hr loperamide 2 mg capsule 2 mg PO TID PRN yes 03/30/24 05/25/25 Hi story diltiazem HCl 240 mg 240 mg PO DAILY 05/21/25 05/25/25 Histor y capsule,extended release 24 hr (Cartia XT) hyoscyamine sulfate 0.125 mg tablet 0.125 mg PO BID PRN for indigestion 06/0705/25/25 History insulin glargine 100 unit/mL (3 14 unit subcut DAILY 05/21/25 05/25/25 H istory mL) subcutaneous pen (Lantus Solostar U-100 Insulin) insulin lispro 100 unit/mL 1 sliding scale dose subcut TIDAC 05/25/25 History subcutaneous half-unit pen (Humalog Junior Singh (U-100)) omeprazole 40 mg capsule,delayed 40 mg PO DAILY@0630 05/21/25 05/25/25 Hi story release trazodone 50 mg tablet 50 mg PO BEDTIME 05/21/25 05/25/25 Histo ry metoprolol succinate 50 mg 150 mg PO BEDTIME 05/25/25 05/25/25 Hist ory tablet,extended release 24 hr Allergies Allergy/AdvReac Type Severity Reaction Status Date / Time sulfamethoxazole (From Allergy Severe Rash Verified 05/25/25 10:31 Bactrim) adhesive tape (ADHESIVE TAPE) Allergy Intermediate BLISTERS Verified 05/25/25 10:31 clonidine Allergy makes pt Verified 05/25/25 10:31 hulusinate adhesive AdvReac Severe BLISTERS Verified 05/25/25 10:31 gabapentin AdvReac Severe hallucinati Verified 05/25/25 10:31 on hydromorphone (From Dilaudid) AdvReac Severe Hallucinati Verified 05/25/25 10:31 ons morphine AdvReac Severe hallucinati Verified 05/25/25 10:31 on glue AdvReac Severe BLISTERS Uncoded 05/21/25 10:24 Physical Exam Vital signs: Vital Signs Temp 98.1 F 05/28/25 08:00 Pulse 61 05/28/25 08:02 Resp 18 05/28/25 08:00 BP 165/69 H 05/28/25 08:03 Pulse Ox 97 05/28/25 08:00 O2 Del Method Room Air 05/28/25 08:00 O2 Flow Rate 97 05/27/25 07:07 Intake & Output 05/27/25 05/28/25 05/28/25 18:59 06:59 18:59 Intake Total 240 / 240 Balance 240 / 240 Intake: Intake, Oral Amount 240 / 240 Other: Meal Refused No NPO No Breakfast % Eaten 75% Lunch % Eaten 25% Weight 74.7 kg Weight 74.7 kg - Constitutional Present: no acute distress - Routine HEENT Exam Head: Present: normal inspection Eye: Present: PERRL - Routine Neck Exam Present: supple. Absent: lymphadenopathy - Routine Respiratory Exam Present: CTAB. Absent: wheezes - Routine Cardiovascular Exam Cardiovascular: Present: S1, S2 - Routine Abdominal Exam Present: soft - Routine Extremities Exam Present: pulses intact - Routine Skin Exam Present: intact - Routine Neurological Exam Present: alert, oriented X3 Hem/Onc Consult Result - Labs CBC & Chem 7: 05/25/25 11:08 05/26/25 11:32 Assessment and Plan Patient Active problem list reviewed?: Yes (1) Non-small cell cancer of left lung Status: Chronic Assessment and plan: 1. This is a 80-year-old woman with metastatic lung adenocarcinoma. Left upper lobe lung nodule was biopsied on 02/15/2022 which revealed moderately differentiated adenocarcinoma. She had right iliac wing biopsy on 04/06/2022 which revealed metastatic pulmonary adenocarcinoma (done at [facility]). PDL1 22C3, TPS 25%. EGFR, ROS1, ALK rearrangement, BRAF mutation not detected. KRAS Exon 2 detected (pG12V). She started systemic therapy with single agent pembrolizumab in 04/2022. She received 3 cycles, last being 06/13/2022. After 3rd cycle, she developed autoimmune pancreatitis and mild colitis. She received 1 dose of nivolumab 3 in September 2022. She experienced recurrent abdominal discomfort, fatigue, body aches and diarrhea. Her symptoms resolved spontaneously with time. She then decided not to undergo any more treatment for her cancer. PET scan performed in August 2022 showed subcentimeter left lower lobe pulmonary nodule without FDG activity. Sclerotic lesion in the right iliac bone without FDG activity. No other evidence of metastatic lesions. She had a CT abdomen/pelvis in October 2023 and a chest x-ray in August 2023 which shows no evidence of disease recurrence. She was last seen in Oncology in August 2024. At that time she was having pain in her left ribcage related to an injury. His symptoms have currently resolved. She appears to have at visual hallucination related to medication, pramipexole. Her CT chest shows a 1.6 cm left upper lobe nodule which is her cancer getting larger. I do not think this is cause of her hallucinations. No further oncologic workup is necessary at this time. I will be happy to see her in the clinic upon discharge. - Time Spent With Patient Time Spent with Patient (in minutes): 20 Additional Coding: - Additional E/M codes Complex E/M visit Add On: CPT G2211
[2025-05-28 16:39] LABS: Glucose, Whole Blood 162 mg/dL (60-115)
[2025-05-28] MEDS: oxyCODONE HCl Immed Release 5 MG TABLET 2.5 MG PO (16:43)
[2025-05-28] MEDS: Lipase/Prot/Amylase 12/38/60K CAPSULE.DR 1 CAP PO (18:37)
[2025-05-28 20:00] VITALS: BP 169/70; PULSE 72; RESP 16; TEMP 36.1; O2SAT 97
[2025-05-28 21:25] LABS: Glucose, Whole Blood 115 mg/dL (60-115)
[2025-05-29 00:47] VITALS: BP 147/65; PULSE 52; RESP 18; TEMP 36.5; O2SAT 97
[2025-05-29] MEDS: oxyCODONE HCl Immed Release 5 MG TABLET 2.5 MG PO ×3 (01:05→16:31)
[2025-05-29 06:34] LABS: Glucose, Whole Blood 126 mg/dL (60-115)
[2025-05-29 08:36] VITALS: BP 144/62; PULSE 60; RESP 18; TEMP 36.3; O2SAT 99
[2025-05-29] MEDS: Insulin Glargine,Hum.rec.anlog 100 UNIT/ML 10 ML VIAL 14 UNIT SUBCUT (08:38)
[2025-05-29] MEDS: Lipase/Prot/Amylase 12/38/60K CAPSULE.DR 1 CAP PO ×3 (08:40→16:32)
[2025-05-29] MEDS: Ferrous Sulfate 324 MG TABLET.DR PO (08:41)
[2025-05-29] MEDS: dilTIAZem HCL CD 240 MG CAP.ER.DEG PO (08:41)
[2025-05-29] MEDS: Metoprolol Succinate ER 50 MG TAB.ER.24H PO (08:41)
[2025-05-29 11:30] LABS: Glucose, Whole Blood 222 mg/dL (60-115)
--- NOTE | 2025-05-29 13:24 | PC.NURSE ---
Patients family brought in a bottle of Zenpep(Pancrelipase), which I brought to the pharmacy to be labled today.
--- NOTE | 2025-05-29 14:37 | P.PNPSI_ITS ---
Subjective Subjective Date of Service: 05/29/25 Reason For Visit: Hallucinations Interim History: Met with patient; discussed with team; reviewed chart; reviewed vitals with some mild hypertension but otherwise grossly WNL Patient says she is anxious saying I am a little disturbed at the moment regarding a form that nurse handed to her; she says that her daughter is coming into help her deal with the legal paperwork. Patient shares about her experience with pramipexole and how it caused her to have hallucinations. She said that since it has been discontinued she feels much more clear minded. Hoping that continuing to be off it will further improve clarity. Mental Status Exam Mental Status Exam Patient Appearance: Well Grooomed Patient Orientation: Person, Place, Time and Situation Level of Consciousness: Awake and Alert Patient Behavior: Appropriate Behavior Comments: Not holding a doll today Mood Description: Anxious (I am a little disturbed) Affect Description: Anxious Ability to Follow Directions: Fair Speech Pattern: Clear and Spontaneous Speech Delusions: Not Present (None expressed) Thought Process: Goal Oriented Thought Content: positive for Goal Oriented (On treatment) Judgement and Insight: Impair Diagnostics Vital Signs (24Hr): Vital Signs - 24 hr 05/28/25 20:00 05/29/25 00:47 05/29/25 08:36 Temperature 97 F 97.7 F 97.3 F Pulse Rate 72 52 60 Respiratory Rate 16 18 18 Blood Pressure 169/70 H 147/65 H 144/62 H Pulse Oximetry 97 97 99 Oxygen Delivery Method Room Air Room Air Room Air BMI result Body Mass Index 32.2 Labs 05/25/25 11:08 05/26/25 11:32 Labs: Laboratory Results - last 48 hr 05/27/25 05/27/25 05/28/25 16:16 20:29 06:02 ESR POC Glucose 167 H 160 H 207 H Estimat Average Glucose Hemoglobin A1c % Iron TIBC % Saturation Unsat Iron Binding Triglycerides Cholesterol LDL Cholesterol, Calc HDL Cholesterol Vitamin B12 Folate TSH Free T4 Rheumatoid Factor 05/28/25 05/28/25 05/28/25 08:03 11:22 14:25 ESR 70 H POC Glucose 193 H Estimat Average Glucose 194 Hemoglobin A1c % 8.4 H Iron 82 TIBC 326 % Saturation 25 Unsat Iron Binding 244 Triglycerides 145 Cholesterol 129 LDL Cholesterol, Calc 53 HDL Cholesterol 47 Vitamin B12 242 Folate 17.2 TSH 2.99 Free T4 1.19 Rheumatoid Factor 19.5 H 05/28/25 05/28/25 05/29/25 16:36 20:47 06:28 ESR POC Glucose 162 H 115 126 H Estimat Average Glucose Hemoglobin A1c % Iron TIBC % Saturation Unsat Iron Binding Triglycerides Cholesterol LDL Cholesterol, Calc HDL Cholesterol Vitamin B12 Folate TSH Free T4 Rheumatoid Factor 05/29/25 11:23 ESR POC Glucose 222 H Estimat Average Glucose Hemoglobin A1c % Iron TIBC % Saturation Unsat Iron Binding Triglycerides Cholesterol LDL Cholesterol, Calc HDL Cholesterol Vitamin B12 Folate TSH Free T4 Rheumatoid Factor Medications Medications Current Medications Acetaminophen (Acetaminophen 325 Mg Tablet) 650 mg PO Q6H PRN PRN Reason: Headache/Pain, Scale 1-10 Last Admin: 05/28/25 10:49 Dose: 650 mg Al Hydroxide/Mg Hydroxide (Magnesium Hydrox/Alum Hydrox 30 Ml Oral.Susp) 30 ml PO Q6H PRN PRN Reason: Heartburn/Nausea Lipase/Protease/Amylase (Lipase/Prot/Amylase 12/38/60k Capsule.) 1 cap PO TIDWM [facility] Last Admin: 05/29/25 11:34 Dose: 1 cap Apixaban (Apixaban 5 Mg Tablet) 5 mg PO BID [facility] Last Admin: 05/29/25 08:41 Dose: 5 mg Atorvastatin Calcium (Atorvastatin Calcium 80 Mg Tablet) 80 mg PO BEDTIME [facility] Last Admin: 05/28/25 20:48 Dose: 80 mg Diltiazem HCl (Diltiazem Hcl Cd 240 Mg Cap.Er.Deg) 240 mg PO DAILY [facility]; Protocol Last Admin: 05/29/25 08:41 Dose: 240 mg Ferrous Sulfate (Ferrous Sulfate 324 Mg Tablet.) 324 mg PO DAILY [facility] Last Admin: 05/29/25 08:41 Dose: 324 mg Folic Acid (Folic Acid 1 Mg Tablet) 1 mg PO DAILY [facility] Last Admin: 05/29/25 08:42 Dose: 1 mg Insulin Glargine (Insulin Glargine,Hum.Rec.Anlog 100 Unit/Ml 10 Ml Vial) 14 unit SUBCUT DAILY [facility] Last Admin: 05/29/25 08:38 Dose: 14 unit Insulin Human Lispro (Insulin Lispro 100 Unit/Ml 3 Ml Vial) 0 unit SUBCUT TIDAC [facility]; Protocol Last Admin: 05/29/25 11:33 Dose: 4 unit Isosorbide Mononitrate (Isosorbide Mononitrate 30 Mg Tab.Er.24h) 30 mg PO DAILY [facility]; Protocol Last Admin: 05/29/25 08:40 Dose: 30 mg Lisinopril (Lisinopril 2.5 Mg Tablet) 2.5 mg PO DAILY [facility]; Protocol Last Admin: 05/29/25 08:40 Dose: 2.5 mg Loratadine (Loratadine 10 Mg Tablet) 10 mg PO DAILY [facility] Last Admin: 05/29/25 08:40 Dose: 10 mg Magnesium Hydroxide (Milk Of Magnesia 30 Ml Oral.Susp) 30 ml PO DAILY PRN PRN Reason: Constipation Metformin HCl (Metformin Hcl 1,000 Mg Tablet) 1,000 mg PO BIDWM [facility] Last Admin: 05/29/25 08:40 Dose: 1,000 mg Metoprolol Succinate (Metoprolol Succinate Er 50 Mg Tab.Er.24h) 50 mg PO DAILY [facility]; Protocol Last Admin: 05/29/25 08:41 Dose: 50 mg Olanzapine (Olanzapine 2.5 Mg Tablet) 2.5 mg PO BEDTIME [facility] Omeprazole (Omeprazole 40 Mg Capsule.Dr) 40 mg PO DAILY@0630 [facility] Last Admin: 05/29/25 05:52 Dose: 40 mg Oxycodone HCl (Oxycodone Hcl Immed Release 5 Mg Tablet) 2.5 mg PO Q4H PRN PRN Reason: Pain, Severe (Pain Scale 7-10) Last Admin: 05/29/25 09:06 Dose: 2.5 mg Polyethylene Glycol (Polyethylene Glycol 3350 17 Gm Powd.Pack) 17 gm PO DAILY PRN PRN Reason: Constipation Senna (Sennosides 8.6 Mg Tablet) 17.2 mg PO BEDTIME PRN PRN Reason: Constipation Vitamin D (Cholecalciferol (Vitamin D3) 25 Mcg Tablet) 50 mcg PO DAILY [facility] Last Admin: 05/29/25 08:39 Dose: 50 mcg Allergies Allergies Allergy/AdvReac Type Severity Reaction Status Date / Time sulfamethoxazole (From Allergy Severe Rash Verified 05/25/25 10:31 Bactrim) adhesive tape (ADHESIVE TAPE) Allergy Intermediate BLISTERS Verified 05/25/25 10:31 clonidine Allergy makes pt Verified 05/25/25 10:31 hulusinate adhesive AdvReac Severe BLISTERS Verified 05/25/25 10:31 gabapentin AdvReac Severe hallucinati Verified 05/25/25 10:31 on hydromorphone (From Dilaudid) AdvReac Severe Hallucinati Verified 05/25/25 10:31 ons morphine AdvReac Severe hallucinati Verified 05/25/25 10:31 on glue AdvReac Severe BLISTERS Uncoded 05/21/25 10:24 Assessment & Plan Assessment & Plan (1) Essential hypertension: Status: Acute Code(s): I10 - Essential (primary) hypertension (2) Depression with anxiety: Status: Acute Code(s): F41.8 - Other specified anxiety disorders (3) Hallucinations, visual: Status: Acute Code(s): R44.1 - Visual hallucinations (4) Major depression, recurrent, chronic: Status: Acute Code(s): F33.9 - Major depressive disorder, recurrent, unspecified Plan Patient is admitted with a complex history of past depression at that time status post overdose had experienced psychotic symptoms but reportedly no ongoing psychotic symptoms or dementia diagnosis or symptoms. Patient has history of restless legs syndrome lung cancer ASHD status post pacemaker bone metastases and history of adverse reactions with confusion and psychosis to gabapentin and different opiate medications. The patient's mood has been intermittently depressed irritable reactive history of overdose attempts has made statements regarding concerns that her may be having an affair again feeling overwhelmed with restless legs syndrome at the multiple medical conditions that she has been having to deal with over the past couple of years leading to decreased quality of life. Recently buspirone pramipexole were reportedly held after discharge recently but unclear if patient had been taking them and whether or not she had been taking them correctly she also had accessed lorazepam narcotic pain medication and 1st consideration and differential diagnosis would 0.25 mg b.i.d. 0.25 b.i.d. be medication and induced hallucinations and psychotic state. Differential diagnosis include major depression with psychotic features less likely unclear why patient did not clear after few days. Discussed with daughter patient use of low-dose Risperdal for question dopamine induced hallucinations if not tolerating low-dose Risperdal would change to olanzapine or Seroquel. Consideration of MRI/LP question paraneoplastic syndromes if not medication induced. Will try and clarify diagnoses Admit to the [facility] Patient pleasant presently on a [place] 12 B may need to invoke healthcare proxy Hospitalist consult check CBC Chem profile B12 folate iron iron binding especially given restless legs patient also anemic low iron may contribute significantly to restless legs syndrome however multiple medications used to treat this have caused side effects will need to clarify what may be beneficial Low-dose Risperdal 0.25 mg p.o. b.i.d. sertraline appears to have been discontinued need to clarify timing regarding this and if patient might be in an SSRI withdrawal state Hospital course: 05/29 Patient says she is anxious? saying I am a little disturbed at the moment regarding a form that nurse handed to her; she says that her daughter is coming into help her deal with the legal paperwork.? Patient shares about her experience with pramipexole and how it caused her to have hallucinations.? She said that since it has been discontinued she feels much more clear minded.? Hoping that continuing to be off it will further improve clarity. Regarding psychotic symptoms: -continue with current treatment plan -hold pramipexole; concern this could be contributing to VH -rule out other medication contributions Hospitalist note: Depression and anxiety/Visual and auditory hallucinations Large doses of narcotics that patient was on 10 mg every 8 hours may have been contributing to her condition Restless legs syndrome/chronic pain disorder Recent hospitalization recommended lower dose of pramipexole which may be contributing to the visual hallucinations Not currently taking but if it is restarted consider lower dose Offer Tylenol, low-dose of oxycodone ordered as needed History of stage IV and a CLL in remission with new pulmonary nodule New 1.6 x 1.2 left upper lobe mass discovered during recent hospitalization Patient should follow up with Dr. Perdue upon discharge CAD/status post CABG/aortic stenosis/status post TAVR/pacemaker/atrial fib/hypertension/hyperlipidemia Patient with prolonged QTC on recent EKG, avoid medications that prolong QTC Continue diltiazem, Imdur, Zestril, Toprol-XL, Eliquis Pancreatic insufficiency Continue Creon t.i.d. with with meals Type 2 diabetes Continue glargine and insulin sliding scale Continue metformin GERD/constipation Continue omeprazole as needed Miralax and senna ordered Thank you for allowing me to participate in the care of this patient. Will continue to follow as needed. Please reconsult of any acute concerns or issues arise Patient educated on: diagnosis and medication risk/benefits Informed Consent: understands and further education needed Reason for continued inpatient stay Substantial Risk for: rapid decompensation Time Spent With Patient Time: Total time managing care of this patient today ____ minutes.
[2025-05-29 16:27] LABS: Glucose, Whole Blood 151 mg/dL (60-115)
[2025-05-29 20:00] VITALS: BP 121/51; PULSE 67; TEMP 37; O2SAT 97
[2025-05-29 21:13] LABS: Glucose, Whole Blood 160 mg/dL (60-115)
[2025-05-30 06:55] LABS: Glucose, Whole Blood 145 mg/dL (60-115)
[2025-05-30 08:00] VITALS: BP 165/69; PULSE 62; RESP 18; TEMP 36.8; O2SAT 98
[2025-05-30] MEDS: dilTIAZem HCL CD 240 MG CAP.ER.DEG PO (08:39)
[2025-05-30] MEDS: Metoprolol Succinate ER 50 MG TAB.ER.24H PO (08:40)
[2025-05-30] MEDS: Ferrous Sulfate 324 MG TABLET.DR PO (08:40)
[2025-05-30] MEDS: Lipase/Prot/Amylase 12/38/60K CAPSULE.DR 1 CAP PO ×3 (08:41→16:23)
[2025-05-30] MEDS: Insulin Glargine,Hum.rec.anlog 100 UNIT/ML 10 ML VIAL 14 UNIT SUBCUT (08:42)
--- NOTE | 2025-05-30 10:49 | P.PNPSI_ITS ---
Subjective Subjective Date of Service: 05/30/25 Reason For Visit: Hallucinations Interim History: Met with patient; discussed with team; reviewed chart; reviewed vitals remained some moderate hypertension but otherwise grossly WNL Patient reports that she is feeling much better and that her mind remains much more clear. She denies any AH or VH. She still has restless leg but is willing to tolerate that for now given return of clarity of thinking. Patient complained of headache and says she was takes Oxy which was available Mental Status Exam Mental Status Exam Patient Appearance: Well Grooomed Patient Orientation: Person, Place, Time and Situation Level of Consciousness: Awake and Alert Patient Behavior: Appropriate Mood Description: Calm (more calm; says mood is good ) Affect Description: Calm Ability to Follow Directions: Fair Speech Pattern: Clear and Spontaneous Speech Hallucinations: None Delusions: Not Present (None expressed) Thought Process: Goal Oriented Thought Content: positive for Goal Oriented (On treatment) and positive for Suicidal Ideation (none) Judgement and Insight: Impair Diagnostics Vital Signs (24Hr): Vital Signs - 24 hr 05/29/25 20:00 05/30/25 08:00 Temperature 98.6 F 98.2 F Pulse Rate 67 62 Respiratory Rate 18 Blood Pressure 121/51 L 165/69 H Pulse Oximetry 97 98 Oxygen Delivery Method Room Air BMI result Body Mass Index 32.2 Labs 05/25/25 11:08 05/26/25 11:32 Labs: Laboratory Results - last 48 hr 05/28/25 05/28/25 05/28/25 11:22 14:25 16:36 POC Glucose 193 H 162 H Iron 82 TIBC 326 % Saturation 25 Unsat Iron Binding 244 05/28/25 05/29/25 05/29/25 20:47 06:28 11:23 POC Glucose 115 126 H 222 H Iron TIBC % Saturation Unsat Iron Binding 05/29/25 05/29/25 05/30/25 16:20 20:38 06:27 POC Glucose 151 H 160 H 145 H Iron TIBC % Saturation Unsat Iron Binding Medications Medications Current Medications Acetaminophen (Acetaminophen 325 Mg Tablet) 650 mg PO Q6H PRN PRN Reason: Headache/Pain, Scale 1-10 Last Admin: 05/30/25 08:37 Dose: 650 mg Al Hydroxide/Mg Hydroxide (Magnesium Hydrox/Alum Hydrox 30 Ml Oral.Susp) 30 ml PO Q6H PRN PRN Reason: Heartburn/Nausea Lipase/Protease/Amylase (Lipase/Prot/Amylase 12/38/60k Capsule.Dr) 1 cap PO TIDWM [facility] Last Admin: 05/30/25 08:41 Dose: 1 cap Apixaban (Apixaban 5 Mg Tablet) 5 mg PO BID [facility] Last Admin: 05/30/25 08:41 Dose: 5 mg Atorvastatin Calcium (Atorvastatin Calcium 80 Mg Tablet) 80 mg PO BEDTIME [facility] Last Admin: 05/29/25 20:39 Dose: 80 mg Diltiazem HCl (Diltiazem Hcl Cd 240 Mg Cap.Er.Deg) 240 mg PO DAILY [facility]; Protocol Last Admin: 05/30/25 08:39 Dose: 240 mg Ferrous Sulfate (Ferrous Sulfate 324 Mg Tablet.) 324 mg PO DAILY [facility] Last Admin: 05/30/25 08:40 Dose: 324 mg Folic Acid (Folic Acid 1 Mg Tablet) 1 mg PO DAILY [facility] Last Admin: 05/30/25 08:41 Dose: 1 mg Insulin Glargine (Insulin Glargine,Hum.Rec.Anlog 100 Unit/Ml 10 Ml Vial) 14 unit SUBCUT DAILY [facility] Last Admin: 05/30/25 08:42 Dose: 14 unit Insulin Human Lispro (Insulin Lispro 100 Unit/Ml 3 Ml Vial) 0 unit SUBCUT TIDAC [facility]; Protocol Last Admin: 05/30/25 08:32 Dose: Not Given Isosorbide Mononitrate (Isosorbide Mononitrate 30 Mg Tab.Er.24h) 30 mg PO DAILY [facility]; Protocol Last Admin: 05/30/25 08:42 Dose: 30 mg Lisinopril (Lisinopril 2.5 Mg Tablet) 2.5 mg PO DAILY [facility]; Protocol Last Admin: 05/30/25 08:39 Dose: 2.5 mg Loratadine (Loratadine 10 Mg Tablet) 10 mg PO DAILY [facility] Last Admin: 05/30/25 08:40 Dose: 10 mg Magnesium Hydroxide (Milk Of Magnesia 30 Ml Oral.Susp) 30 ml PO DAILY PRN PRN Reason: Constipation Metformin HCl (Metformin Hcl 1,000 Mg Tablet) 1,000 mg PO BIDWM [facility] Last Admin: 05/30/25 08:39 Dose: 1,000 mg Metoprolol Succinate (Metoprolol Succinate Er 50 Mg Tab.Er.24h) 50 mg PO DAILY [facility]; Protocol Last Admin: 05/30/25 08:40 Dose: 50 mg Olanzapine (Olanzapine 2.5 Mg Tablet) 2.5 mg PO BEDTIME [facility] Last Admin: 05/29/25 20:39 Dose: 2.5 mg Omeprazole (Omeprazole 40 Mg Capsule.Dr) 40 mg PO DAILY@0630 [facility] Last Admin: 05/30/25 06:28 Dose: 40 mg Oxycodone HCl (Oxycodone Hcl Immed Release 5 Mg Tablet) 2.5 mg PO Q4H PRN PRN Reason: Pain, Severe (Pain Scale 7-10) Last Admin: 05/29/25 16:31 Dose: 2.5 mg Polyethylene Glycol (Polyethylene Glycol 3350 17 Gm Powd.Pack) 17 gm PO DAILY PRN PRN Reason: Constipation Senna (Sennosides 8.6 Mg Tablet) 17.2 mg PO BEDTIME PRN PRN Reason: Constipation Vitamin D (Cholecalciferol (Vitamin D3) 25 Mcg Tablet) 50 mcg PO DAILY [facility] Last Admin: 05/30/25 08:38 Dose: 50 mcg Allergies Allergies Allergy/AdvReac Type Severity Reaction Status Date / Time sulfamethoxazole (From Allergy Severe Rash Verified 05/25/25 10:31 Bactrim) adhesive tape (ADHESIVE TAPE) Allergy Intermediate BLISTERS Verified 05/25/25 10:31 clonidine Allergy makes pt Verified 05/25/25 10:31 hulusinate adhesive AdvReac Severe BLISTERS Verified 05/25/25 10:31 gabapentin AdvReac Severe hallucinati Verified 05/25/25 10:31 on hydromorphone (From Dilaudid) AdvReac Severe Hallucinati Verified 05/25/25 10:31 ons morphine AdvReac Severe hallucinati Verified 05/25/25 10:31 on glue AdvReac Severe BLISTERS Uncoded 05/21/25 10:24 Assessment & Plan Assessment & Plan (1) Essential hypertension: Status: Acute Code(s): I10 - Essential (primary) hypertension (2) Depression with anxiety: Status: Acute Code(s): F41.8 - Other specified anxiety disorders (3) Hallucinations, visual: Status: Acute Code(s): R44.1 - Visual hallucinations (4) Major depression, recurrent, chronic: Status: Acute Code(s): F33.9 - Major depressive disorder, recurrent, unspecified Plan Patient is admitted with a complex history of past depression at that time status post overdose had experienced psychotic symptoms but reportedly no ongoing psychotic symptoms or dementia diagnosis or symptoms. Patient has history of restless legs syndrome lung cancer ASHD status post pacemaker bone metastases and history of adverse reactions with confusion and psychosis to gabapentin and different opiate medications. The patient's mood has been intermittently depressed irritable reactive history of overdose attempts has made statements regarding concerns that her may be having an affair again feeling overwhelmed with restless legs syndrome at the multiple medical conditions that she has been having to deal with over the past couple of years leading to decreased quality of life. Recently buspirone pramipexole were reportedly held after discharge recently but unclear if patient had been taking them and whether or not she had been taking them correctly she also had accessed lorazepam narcotic pain medication and 1st consideration and differential diagnosis would 0.25 mg b.i.d. 0.25 b.i.d. be medication and induced hallucinations and psychotic state. Differential diagnosis include major depression with psychotic features less likely unclear why patient did not clear after few days. Discussed with daughter patient use of low-dose Risperdal for question dopamine induced hallucinations if not tolerating low-dose Risperdal would change to olanzapine or Seroquel. Consideration of MRI/LP question paraneoplastic syndromes if not medication induced. Will try and clarify diagnoses Admit to the [facility] unit Patient [place] presently on a [place] 12 B may need to invoke healthcare proxy Hospitalist consult check CBC Chem profile B12 folate iron iron binding especially given restless legs patient also anemic low iron may contribute significantly to restless legs syndrome however multiple medications used to treat this have caused side effects will need to clarify what may be beneficial Low-dose Risperdal 0.25 mg p.o. b.i.d. sertraline appears to have been discontinued need to clarify timing regarding this and if patient might be in an SSRI withdrawal state Hospital course: 05/29 Patient says she is anxious? saying I am a little disturbed at the moment regarding a form that nurse handed to her; she says that her daughter is coming into help her deal with the legal paperwork.? Patient shares about her experience with pramipexole and how it caused her to have hallucinations.? She said that since it has been discontinued she feels much more clear minded.? Hoping that continuing to be off it will further improve clarity. Regarding psychotic symptoms: -continue with current treatment plan -hold pramipexole; concern this could be contributing to VH -rule out other medication contributions 05/30 Patient reports that she is feeling much better and that her mind remains much more clear. She denies any AH or VH. She still has restless leg but is willing to tolerate that for now given return of clarity of thinking. Patient complained of headache and says she was takes Oxy which was available Hospitalist note: Depression and anxiety/Visual and auditory hallucinations Large doses of narcotics that patient was on 10 mg every 8 hours may have been contributing to her condition Restless legs syndrome/chronic pain disorder Recent hospitalization recommended lower dose of pramipexole which may be contributing to the visual hallucinations Not currently taking but if it is restarted consider lower dose Offer Tylenol, low-dose of oxycodone ordered as needed History of stage IV and a CLL in remission with new pulmonary nodule New 1.6 x 1.2 left upper lobe mass discovered during recent hospitalization Patient should follow up with Dr. Perdue upon discharge CAD/status post CABG/aortic stenosis/status post TAVR/pacemaker/atrial fib/hypertension/hyperlipidemia Patient with prolonged QTC on recent EKG, avoid medications that prolong QTC Continue diltiazem, Imdur, Zestril, Toprol-XL, Eliquis Pancreatic insufficiency Continue Creon t.i.d. with with meals Type 2 diabetes Continue glargine and insulin sliding scale Continue metformin GERD/constipation Continue omeprazole as needed Miralax and senna ordered Thank you for allowing me to participate in the care of this patient. Will continue to follow as needed. Please reconsult of any acute concerns or issues arise Patient educated on: diagnosis and medication risk/benefits Informed Consent: understands and further education needed Reason for continued inpatient stay Substantial Risk for: rapid decompensation Time Spent With Patient Time: Total time managing care of this patient today ____ minutes.
[2025-05-30 11:23] LABS: Glucose, Whole Blood 284 mg/dL (60-115)
[2025-05-30] MEDS: oxyCODONE HCl Immed Release 5 MG TABLET 2.5 MG PO ×2 (13:26→22:21)
[2025-05-30 13:33] VITALS: BP 92/49; PULSE 59
[2025-05-30 16:16] LABS: Glucose, Whole Blood 177 mg/dL (60-115)
[2025-05-30 19:49] VITALS: BP 111/49; PULSE 70; RESP 16; TEMP 36.4; O2SAT 96
[2025-05-30 20:39] LABS: Glucose, Whole Blood 123 mg/dL (60-115)
[2025-05-31 06:34] LABS: Glucose, Whole Blood 156 mg/dL (60-115)
[2025-05-31] MEDS: Lipase/Prot/Amylase 12/38/60K CAPSULE.DR 1 CAP PO ×3 (07:54→16:45)
[2025-05-31 08:36] VITALS: BP 138/76; PULSE 60; RESP 16; TEMP 36.5; O2SAT 99
[2025-05-31] MEDS: Insulin Glargine,Hum.rec.anlog 100 UNIT/ML 10 ML VIAL 14 UNIT SUBCUT (09:22)
[2025-05-31] MEDS: Ferrous Sulfate 324 MG TABLET.DR PO (09:24)
[2025-05-31] MEDS: dilTIAZem HCL CD 240 MG CAP.ER.DEG PO (09:24)
[2025-05-31] MEDS: Metoprolol Succinate ER 50 MG TAB.ER.24H PO (09:25)
[2025-05-31 11:27] LABS: Glucose, Whole Blood 197 mg/dL (60-115)
--- NOTE | 2025-05-31 13:40 | HO.PSYCHPN ---
Subjective Subjective Date of Service: 05/31/25 Reason For Visit: Hallucinations Subjective Notes: Section 12B Medical Problems Affecting Mental Status: Yes Interim History: Patient seen extensively discussed use of olanzapine for hallucinations and residual psychotic symptoms. Patient denying current visual hallucinations or suspiciousness of the motives of others. She was able to describe how difficult it been over the past few weeks having states wish now realizes she was seeing things that warrant there and being quite upset when she felt other people were not believing her. Patient is alert and oriented feeling significantly better still hoping to leave tomorrow. Extensive discussion regarding multiple medications that could have been contributing to the patient's state. Patient is not overly depressed seems quite relieved Medication Compliance: Yes Mental Status Exam Mental Status Exam Patient Appearance: Well Grooomed Patient Orientation: Person, Place, Time and Situation Level of Consciousness: Awake and Alert Patient Behavior: Appropriate Mood Description: Appropriate Affect Description: Calm and Appropriate Ability to Follow Directions: Fair Speech Pattern: Clear and Spontaneous Speech Hallucinations: None Delusions: Not Present (None expressed) Thought Process: Goal Oriented Thought Content: positive for Goal Oriented (On treatment) Judgement and Insight: Impair Diagnostics Vital Signs (24Hr): Vital Signs - 24 hr 05/30/25 19:49 05/31/25 08:36 Temperature 97.5 F 97.7 F Pulse Rate 70 60 Respiratory Rate 16 16 Blood Pressure 111/49 L 138/76 Pulse Oximetry 96 99 Oxygen Delivery Method Room Air Room Air BMI result Body Mass Index 32.2 Labs 05/25/25 11:08 05/26/25 11:32 Labs: Laboratory Results - last 48 hr 05/29/25 05/29/25 05/30/25 16:20 20:38 06:27 POC Glucose 151 H 160 H 145 H 05/30/25 05/30/25 05/30/25 11:17 16:12 20:26 POC Glucose 284 H 177 H 123 H 05/31/25 05/31/25 06:21 11:23 POC Glucose 156 H 197 H Medications Medications Current Medications Acetaminophen (Acetaminophen 325 Mg Tablet) 650 mg PO Q6H PRN PRN Reason: Headache/Pain, Scale 1-10 Last Admin: 05/31/25 09:23 Dose: 650 mg Al Hydroxide/Mg Hydroxide (Magnesium Hydrox/Alum Hydrox 30 Ml Oral.Susp) 30 ml PO Q6H PRN PRN Reason: Heartburn/Nausea Lipase/Protease/Amylase (Lipase/Prot/Amylase 12/38/60k Capsule.) 1 cap PO TIDWM [facility] Last Admin: 05/31/25 11:32 Dose: 1 cap Apixaban (Apixaban 5 Mg Tablet) 5 mg PO BID [facility] Last Admin: 05/31/25 09:25 Dose: 5 mg Atorvastatin Calcium (Atorvastatin Calcium 80 Mg Tablet) 80 mg PO BEDTIME [facility] Last Admin: 05/30/25 19:52 Dose: 80 mg Diltiazem HCl (Diltiazem Hcl Cd 240 Mg Cap.Er.Deg) 240 mg PO DAILY [facility]; Protocol Last Admin: 05/31/25 09:24 Dose: 240 mg Ferrous Sulfate (Ferrous Sulfate 324 Mg Tablet.) 324 mg PO DAILY [facility] Last Admin: 05/31/25 09:24 Dose: 324 mg Folic Acid (Folic Acid 1 Mg Tablet) 1 mg PO DAILY [facility] Last Admin: 05/31/25 09:25 Dose: 1 mg Insulin Glargine (Insulin Glargine,Hum.Rec.Anlog 100 Unit/Ml 10 Ml Vial) 14 unit SUBCUT DAILY [facility] Last Admin: 05/31/25 09:22 Dose: 14 unit Insulin Human Lispro (Insulin Lispro 100 Unit/Ml 3 Ml Vial) 0 unit SUBCUT TIDAC [facility]; Protocol Last Admin: 05/31/25 11:32 Dose: 2 unit Isosorbide Mononitrate (Isosorbide Mononitrate 30 Mg Tab.Er.24h) 30 mg PO DAILY [facility]; Protocol Last Admin: 05/31/25 09:25 Dose: 30 mg Lisinopril (Lisinopril 2.5 Mg Tablet) 2.5 mg PO DAILY [facility]; Protocol Last Admin: 05/31/25 09:25 Dose: 2.5 mg Loratadine (Loratadine 10 Mg Tablet) 10 mg PO DAILY [facility] Last Admin: 05/31/25 09:25 Dose: 10 mg Magnesium Hydroxide (Milk Of Magnesia 30 Ml Oral.Susp) 30 ml PO DAILY PRN PRN Reason: Constipation Metformin HCl (Metformin Hcl 1,000 Mg Tablet) 1,000 mg PO BIDWM [facility] Last Admin: 05/31/25 07:54 Dose: 1,000 mg Metoprolol Succinate (Metoprolol Succinate Er 50 Mg Tab.Er.24h) 50 mg PO DAILY [facility]; Protocol Last Admin: 05/31/25 09:25 Dose: 50 mg Olanzapine (Olanzapine 2.5 Mg Tablet) 2.5 mg PO BEDTIME [facility] Last Admin: 05/30/25 19:52 Dose: 2.5 mg Omeprazole (Omeprazole 40 Mg Capsule.Dr) 40 mg PO DAILY@0630 [facility] Last Admin: 05/31/25 06:06 Dose: 40 mg Oxycodone HCl (Oxycodone Hcl Immed Release 5 Mg Tablet) 2.5 mg PO Q4H PRN PRN Reason: Pain, Severe (Pain Scale 7-10) Last Admin: 05/30/25 22:21 Dose: 2.5 mg Polyethylene Glycol (Polyethylene Glycol 3350 17 Gm Powd.Pack) 17 gm PO DAILY PRN PRN Reason: Constipation Senna (Sennosides 8.6 Mg Tablet) 17.2 mg PO BEDTIME PRN PRN Reason: Constipation Vitamin D (Cholecalciferol (Vitamin D3) 25 Mcg Tablet) 50 mcg PO DAILY [facility] Last Admin: 05/31/25 09:23 Dose: 50 mcg Allergies Allergies Allergy/AdvReac Type Severity Reaction Status Date / Time sulfamethoxazole (From Allergy Severe Rash Verified 05/25/25 10:31 Bactrim) adhesive tape (ADHESIVE TAPE) Allergy Intermediate BLISTERS Verified 05/25/25 10:31 clonidine Allergy makes pt Verified 05/25/25 10:31 hulusinate adhesive AdvReac Severe BLISTERS Verified 05/25/25 10:31 gabapentin AdvReac Severe hallucinati Verified 05/25/25 10:31 on hydromorphone (From Dilaudid) AdvReac Severe Hallucinati Verified 05/25/25 10:31 ons morphine AdvReac Severe hallucinati Verified 05/25/25 10:31 on glue AdvReac Severe BLISTERS Uncoded 05/21/25 10:24 Assessment & Plan Assessment & Plan (1) Essential hypertension: Status: Acute Code(s): I10 - Essential (primary) hypertension (2) Depression with anxiety: Status: Acute Code(s): F41.8 - Other specified anxiety disorders (3) Hallucinations, visual: Status: Acute Code(s): R44.1 - Visual hallucinations (4) Major depression, recurrent, chronic: Status: Acute Code(s): F33.9 - Major depressive disorder, recurrent, unspecified Plan Patient is admitted with a complex history of past depression at that time status post overdose had experienced psychotic symptoms but reportedly no ongoing psychotic symptoms or dementia diagnosis or symptoms. Patient has history of restless legs syndrome lung cancer ASHD status post pacemaker bone metastases and history of adverse reactions with confusion and psychosis to gabapentin and different opiate medications. The patient's mood has been intermittently depressed irritable reactive history of overdose attempts has made statements regarding concerns that her may be having an affair again feeling overwhelmed with restless legs syndrome at the multiple medical conditions that she has been having to deal with over the past couple of years leading to decreased quality of life. Recently buspirone pramipexole were reportedly held after discharge recently but unclear if patient had been taking them and whether or not she had been taking them correctly she also had accessed lorazepam narcotic pain medication and 1st consideration and differential diagnosis would 0.25 mg b.i.d. 0.25 b.i.d. be medication and induced hallucinations and psychotic state. Differential diagnosis include major depression with psychotic features less likely unclear why patient did not clear after few days. Discussed with daughter patient use of low-dose Risperdal for question dopamine induced hallucinations if not tolerating low-dose Risperdal would change to olanzapine or Seroquel. Consideration of MRI/LP question paraneoplastic syndromes if not medication induced. Will try and clarify diagnoses Admit to the [facility] Patient pleasant presently on a section 12 B may need to invoke healthcare proxy Hospitalist consult check CBC Chem profile B12 folate iron iron binding especially given restless legs patient also anemic low iron may contribute significantly to restless legs syndrome however multiple medications used to treat this have caused side effects will need to clarify what may be beneficial Low-dose Risperdal 0.25 mg p.o. b.i.d. sertraline appears to have been discontinued need to clarify timing regarding this and if patient might be in an SSRI withdrawal state Hospital course: 05/29 Patient says she is anxious? saying I am a little disturbed at the moment regarding a form that nurse handed to her; she says that her daughter is coming into help her deal with the legal paperwork.? Patient shares about her experience with pramipexole and how it caused her to have hallucinations.? She said that since it has been discontinued she feels much more clear minded.? Hoping that continuing to be off it will further improve clarity. Regarding psychotic symptoms: -continue with current treatment plan -hold pramipexole; concern this could be contributing to VH -rule out other medication contributions 05/30 Patient reports that she is feeling much better and that her mind remains much more clear. She denies any AH or VH. She still has restless leg but is willing to tolerate that for now given return of clarity of thinking. Patient complained of headache and says she was takes Oxy which was available 05/31/2025 Discussed with patient has multiple medications that had been held or discontinued over the past week or so. Discussed potential interaction between Zofran and sertraline. Patient presently off sertraline is not exhibiting withdrawal symptoms. Patient's mood appears stable no vertigo or anxiety consistent with SSRI withdrawal. He seems relieved by feeling more present feeling like she had been in a dreamlike state for number of weeks. Low-dose oxycodone restarted had been on 10 mg given 2.5 mg q.4h PRN patient does have bone Mets and also it should be noted that opiates are at times used for treatment resistant restless leg. Discussed with patient need to avoid certain medications such as pramipexole gabapentin which apparently she has had adverse reactions to. Hospitalist note: Depression and anxiety/Visual and auditory hallucinations Large doses of narcotics that patient was on 10 mg every 8 hours may have been contributing to her condition Restless legs syndrome/chronic pain disorder Recent hospitalization recommended lower dose of pramipexole which may be contributing to the visual hallucinations Not currently taking but if it is restarted consider lower dose Offer Tylenol, low-dose of oxycodone ordered as needed History of stage IV and a CLL in remission with new pulmonary nodule New 1.6 x 1.2 left upper lobe mass discovered during recent hospitalization Patient should follow up with Dr. Perdue upon discharge CAD/status post CABG/aortic stenosis/status post TAVR/pacemaker/atrial fib/hypertension/hyperlipidemia Patient with prolonged QTC on recent EKG, avoid medications that prolong QTC Continue diltiazem, Imdur, Zestril, Toprol-XL, Eliquis Pancreatic insufficiency Continue Creon t.i.d. with with meals Type 2 diabetes Continue glargine and insulin sliding scale Continue metformin GERD/constipation Continue omeprazole as needed Miralax and senna ordered Thank you for allowing me to participate in the care of this patient. Will continue to follow as needed. Please reconsult of any acute concerns or issues arise Patient educated on: diagnosis, medication risk/benefits and medical condition Informed Consent: understands Reason for continued inpatient stay Substantial Risk for: med/psych decompensation Time Spent With Patient Time: Total time managing care of this patient today __30__ minutes.
--- NOTE | 2025-05-31 15:00 | EEG_ITS ---
Reason For EEG: Visual hallucinations and RLS Medications:Tylenol, magnesium, apixaban, atorvastatin calcium, diltiazem, ferrous sulfate, folic acid, insulin, Lisinopril, metoprolol, omeprazole, vit d History: Hx of aortic valve stenosis, Depression, Diabetes mellitus with hyperglycemia, with long-term current use of insulin, Hx of sigmoidoscopy, Metformin adverse reaction, Adenocarcinoma of left lung (~2021), aortic stenosis, Atypical migraine, Transient cerebral ischemia AVM (arteriovenous malformation) of co Normocytic anemia, mitral valve regurgitation, - pt having episodes of visual hallucinations- presently at baseline [employer] Comments: During this study pt did not have visual changes during this study? Behavioral state: pleasant Conscious state: awake Photic stimulation: completed Hyperventilation: omitted Handedness: Right Skull defect: No Sedation: No This is a 16 channel EEG with an EKG lead. Patient is awake during the tracing. Background EEG rhythm is 7-8 hertz 5-50 microvolt posteriorly lower amplitude fast anteriorly. Photic stimulation does not produce any significant abnormality. Hyperventilation is not performed. Cardiac lead does not reveal any significant abnormality. Some lead and muscle artifacts are noted. No sharp wave spikes or paroxysmal tendency noted. Impression: Mild generalized slowing with no evidence of seizure disorder. MTDD
[2025-05-31 16:13] LABS: Glucose, Whole Blood 149 mg/dL (60-115)
[2025-05-31 19:59] VITALS: BP 130/60; PULSE 73; RESP 16; TEMP 36.1; O2SAT 99
[2025-05-31 20:37] LABS: Glucose, Whole Blood 203 mg/dL (60-115)
[2025-05-31] MEDS: oxyCODONE HCl Immed Release 5 MG TABLET 2.5 MG PO (21:14)
[2025-05-31 22:12] LABS: Anti Nuclear Antibody Pattern Nuclear, Speckled; Anti Nuclear Antibody Screen POSITIVE (NEGATIVE); Anti Nuclear Antibody Titer 1:40 titer
[2025-06-01 06:31] LABS: Glucose, Whole Blood 161 mg/dL (60-115)
[2025-06-01] MEDS: Lipase/Prot/Amylase 12/38/60K CAPSULE.DR 1 CAP PO ×2 (07:29→11:30)
[2025-06-01 08:00] VITALS: BP 158/78; PULSE 61; RESP 16; TEMP 36.5; O2SAT 99
[2025-06-01] MEDS: Ferrous Sulfate 324 MG TABLET.DR PO (08:32)
[2025-06-01] MEDS: dilTIAZem HCL CD 240 MG CAP.ER.DEG PO (08:32)
[2025-06-01] MEDS: Metoprolol Succinate ER 50 MG TAB.ER.24H PO (08:34)
[2025-06-01] MEDS: Insulin Glargine,Hum.rec.anlog 100 UNIT/ML 10 ML VIAL 14 UNIT SUBCUT (08:35)
--- NOTE | 2025-06-01 10:33 | PM.PSYDC ---
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 Factor 05/28/25 08:03 ESR 70 H Creatinine Estim Creat Clear Calc Estimated GFR POC Glucose Estimat Average Glucose 194 Hemoglobin A1c % 8.4 H Triglycerides 145 Cholesterol 129 LDL Cholesterol, Calc 53 HDL Cholesterol 47 Vitamin B12 242 Folate 17.2 TSH 2.99 Free T4 1.19 Rheumatoid Factor 19.5 H Imaging Radiology Impressions: Atrophy noted no acute changes Meds/Allergies Meds Home Medications Medication Instructions Recorded Confirmed Type cholecalciferol (vitamin D3) 50 50 mcg PO DAILY 10/26/20 05/25/25 History mcg (2,000 unit) capsule acetaminophen 500 mg tablet 500 mg PO BID 11/07/20 05/25/25 History isosorbide mononitrate 30 mg 30 mg PO DAILY 10/02/21 05/25/25 History tablet,extended release 24 hr loperamide 2 mg capsule 2 mg PO TID PRN yes 03/30/24 05/25/25 History diltiazem HCl 240 mg 240 mg PO DAILY 05/21/25 05/25/25 History capsule,extended release 24 hr (Cartia XT) hyoscyamine sulfate 0.125 mg tablet 0.125 mg PO BID PRN for indigestion 05/21/25 05/25/25 History insulin glargine 100 unit/mL (3 14 unit subcut DAILY 05/21/25 05/25/25 History mL) subcutaneous pen (Lantus Solostar U-100 Insulin) insulin lispro 100 unit/mL 1 sliding scale dose subcut TIDAC 05/21/25 05/25/25 History subcutaneous half-unit pen (Humalog Panda Francisco (U-100)) omeprazole 40 mg capsule,delayed 40 mg PO DAILY@0630 05/21/25 05/25/25 History release trazodone 50 mg tablet 50 mg PO BEDTIME 05/21/25 05/25/25 History metoprolol succinate 50 mg 150 mg PO BEDTIME 05/25/25 05/25/25 History tablet,extended release 24 hr Allergies Allergies Allergy/AdvReac Type Severity Reaction Status Date / Time sulfamethoxazole (From Allergy Severe Rash Verified 05/25/25 10:31 Bactrim) adhesive tape (ADHESIVE TAPE) Allergy Intermediate BLISTERS Verified 05/25/25 10:31 clonidine Allergy makes pt Verified 05/25/25 10:31 hulusinate adhesive AdvReac Severe BLISTERS Verified 05/25/25 10:31 gabapentin AdvReac Severe hallucinati Verified 05/25/25 10:31 on hydromorphone (From Dilaudid) AdvReac Severe Hallucinati Verified 05/25/25 10:31 ons morphine AdvReac Severe hallucinati Verified 05/25/25 10:31 on glue AdvReac Severe BLISTERS Uncoded 05/21/25 10:24 Mental Status Exam Mental Status Exam Narrative: Patient is casually dressed superficially bright holding an infant doll that she knows is not a real child but states has been soothing patient somewhat expansive in manner and mood stating she is there for a celebration and can see people on the unit that there to celebrate that she is getting an award from the hospital. She relates this to reporting a number of murders in the emergency room later when asked why she was referred to a psychiatric unit she was able to state she been experiencing hallucinations but which she was spring seeing now was not hallucinations. Patient becomes irritable dysphoric when again explained she is on a psychiatric unit and she is somewhat dismissive and states she does not need psychiatric care at times agreeing that she is experiencing perhaps side effects from medications at other times saying know these are not hallucinations denies active thoughts of harm to herself or others insight quite limited judgment fair tried to have a discussion what might have been precipitating some her recent experiences. Patient does state she is tormented by her restless legs syndrome which was not apparent during the interview no other abnormal movements noted Assessment & Plan Assessment & Plan (1) Hallucinations, visual: Status: Acute Code(s): R44.1 - Visual hallucinations Assessment and Plan: Rule out medication induced (2) Major depression, recurrent, chronic: Status: Acute Code(s): F33.9 - Major depressive disorder, recurrent, unspecified Assessment and Plan: Rule out with psychotic feature clarify symptomatology in time table (3) Essential hypertension: Status: Acute Code(s): I10 - Essential (primary) hypertension Assessment and Plan: Monitor response to medication (4) Hx of aortic valve stenosis: Status: Acute Code(s): Z86.79 - Personal history of other diseases of the circulatory system (5) S/P TAVR (transcatheter aortic valve replacement): Status: Acute Code(s): Z95.2 - Presence of prosthetic heart valve (6) Diabetes mellitus with hyperglycemia, with long-term current use of insulin: Status: Acute Qualifiers: Diabetes mellitus type: type 2 Qualified Code(s): E11.65 - Type 2 diabetes mellitus with hyperglycemia; Z79.4 - penitentiary (current) use of insulin Code(s): E11.65 - Type 2 diabetes mellitus with hyperglycemia; 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 Patient has history of restless legs syndrome lung cancer ASHD status post pacemaker bone metastases and history of adverse reactions with confusion and psychosis to gabapentin and different opiate medications. The patient's mood has been intermittently depressed irritable reactive history of overdose attempts has made statements regarding concerns that her may be having an affair again feeling overwhelmed with restless legs syndrome at the multiple medical conditions that she has been having to deal with over the past couple of years leading to decreased quality of life. Recently buspirone pramipexole were reportedly held after discharge recently but unclear if patient had been taking them and whether or not she had been taking them correctly she also had accessed lorazepam narcotic pain medication and 1st consideration and differential diagnosis would 0.25 mg b.i.d. 0.25 b.i.d. be medication and induced hallucinations and psychotic state. Differential diagnosis include major depression with psychotic features less likely unclear why patient did not clear after few days. Discussed with daughter patient use of low-dose Risperdal for question dopamine induced hallucinations if not tolerating low-dose Risperdal would change to olanzapine or Seroquel. Consideration of MRI/LP question paraneoplastic syndromes if not medication induced. Will try and clarify diagnoses Admit to the [facility] Patient pleasant presently on a [place] 12 B may need to invoke healthcare proxy Hospitalist consult check CBC Chem profile B12 folate iron iron binding especially given restless legs patient also anemic low iron may contribute significantly to restless legs syndrome however multiple medications used to treat this have caused side effects will need to clarify what may be beneficial Low-dose Risperdal 0.25 mg p.o. b.i.d. sertraline appears to have been discontinued need to clarify timing regarding this and if patient might be in an SSRI withdrawal state Evaluate for consideration of safety at possibility of commitment Patient educated on: diagnosis, medication risk/benefits and medical condition Informed Consent: does not understand and further education needed Reason for continued inpatient stay Substantial Risk for: harm to self, inability to function and med/psych decompensation Statement Statement: I have reviewed the history and physical and performed a pertinent examination on my patient. No changes have occurred unless specified. If the History and Physical was not performed prior to admission, the Hospitalist's service will be consulted for completing the admission physical. ER physician note and case discussed with Dr. Bautista on 05/27/2025 at 14:40 Time Spent With Patient Time: Total time managing care of this patient today __65__ minutes. Dictated By: David Martini MD Signed By: <Electronically signed by David Martini MD> 05/28/25 1413 DD/ 104 TD/TT: 05/28/25 104 Civil Cad Tech: Hospital course Hospital course: 05/29 Patient says she is anxious saying I am a little disturbed at the moment regarding a form that nurse handed to her; she says that her daughter is coming into help her deal with the legal paperwork. Patient shares about her experience with pramipexole and how it caused her to have hallucinations. She said that since it has been discontinued she feels much more clear minded. Hoping that continuing to be off it will further improve clarity. Regarding psychotic symptoms: -continue with current treatment plan -hold pramipexole; concern this could be contributing to VH -rule out other medication contributions 05/30 Patient reports that she is feeling much better and that her mind remains much more clear. She denies any AH or VH. She still has restless leg but is willing to tolerate that for now given return of clarity of thinking. Patient complained of headache and says she was takes Oxy which was available 05/31/2025 Discussed with patient has multiple medications that had been held or discontinued over the past week or so. Discussed potential interaction between Zofran and sertraline. Patient presently off sertraline is not exhibiting withdrawal symptoms. Patient's mood appears stable no vertigo or anxiety consistent with SSRI withdrawal. He seems relieved by feeling more present feeling like she had been in a dreamlike state for number of weeks. Low-dose oxycodone restarted had been on 10 mg given 2.5 mg q.4h PRN patient does have bone Mets and also it should be noted that opiates are at times used for treatment resistant restless leg. Discussed with patient need to avoid certain medications such as pramipexole gabapentin which apparently she has had adverse reactions to. Hospitalist note: Depression and anxiety/Visual and auditory hallucinations Large doses of narcotics that patient was on 10 mg every 8 hours may have been contributing to her condition Restless legs syndrome/chronic pain disorder Recent hospitalization recommended lower dose of pramipexole which may be contributing to the visual hallucinations Not currently taking but if it is restarted consider lower dose Offer Tylenol, low-dose of oxycodone ordered as needed History of stage IV and a CLL in remission with new pulmonary nodule New 1.6 x 1.2 left upper lobe mass discovered during recent hospitalization Patient should follow up with Dr. Perdue upon discharge CAD/status post CABG/aortic stenosis/status post TAVR/pacemaker/atrial fib/hypertension/hyperlipidemia Patient with prolonged QTC on recent EKG, avoid medications that prolong QTC Continue diltiazem, Imdur, Zestril, Toprol-XL, Eliquis Pancreatic insufficiency Continue Creon t.i.d. with with meals Type 2 diabetes Continue glargine and insulin sliding scale Continue metformin 06/01/25 Patient discharged on 3 day notice not acutely dangerous to self or others. Educated patient and family regarding potential drug interactions that could have contributed to the patient's visual hallucinations and confusion prior to admission. These include medications for restless leg dopamine agonist and there can also be a contributing factor of Zofran and sertraline having a significant serotonergic interaction which can cause confusion and hallucinations. Patient with a clear sensorium at discharge no visual or auditory hallucinations alert and oriented no bizarre thoughts. [place] like she got her life back and felt like the past few weeks had been as if in a dream. Could restart sertraline patients sertraline had been held would avoid the use of Zofran with sertraline avoid gabapentin had also had past adverse reactions to benzodiazepines. Patient will be seen for psychiatric follow-up after discharge. Would be careful with use of narcotics use lowest dose possible Patient will see her primary care an oncologist for follow-up in addition to psychiatric follow-up may benefit from neurology follow-up for restless leg although this was not as much of an issue during her inpatient stay Status at Discharge Overall status at discharge: patient is progressing back to baseline Time Spent with Patient Time attestation: Total time managing care of this patient today ____ minutes. Time spent: Greater than 30 minutes Discharge Plan Discharge Anticipated Discharge Date/Time: 06/01/25 12:00 Patient Disposition: Home, Self-Care Discharge Diagnosis: medication induced hallucinations ? zoloft zofram interaction ? pramipexole induced hx tx resistant restless leg hx of recurrent depression hypertension diabetes lung ca with bone lesions Referrals: [facility]: Debora Virk NP Psychiatry [Other] - 06/15/25 11:00 am Referral Note: Your first appointment for psychiatry is scheduled for 06/15/25 at 11AM. This appointment is in office. [facility]: Joanne Robison (Therapy) [Other] - 06/07/25 11:00 am Referral Note: Your first telehealth therapy appointment is scheduled for 06/07/25 at 12PM. This is with therapist Joanne Robison. Maine Perdue MD [Physician, Hematology & Oncology] - 06/02/25 2:40 pm Referral Note: Your appointment will be on 06/02/25 at 2:40pm. will be seeing you for a follow up. If you need to reschedule the appointment please call the number listed. Sary Waite MD [Primary Care Provider, Internal Medicine] - 3-5 Days Referral Note: office will reach out to you 3-5 days after discharge with an appointment date and time. If you do not hear back from them with in that time please call their office at the number listed. Discharge Medications: New metoprolol succinate 50 mg Tablet Extended Release 24 Hr 50 mg PO DAILY 30 Days Qty: 30 0RF Protocol: Hold for SBP/HR < HOLD for SBP < : 90 HOLD for HR < : 60 olanzapine 2.5 mg Tablet 2.5 mg PO BEDTIME PRN (Reason: hallucinations) 14 Days Qty: 14 0RF Rx Instructions: prn for hallucinations Continued clotrimazole 2 % cream 1 appful vaginal BEDTIME PRN (Reason: VAGINAL ITCH) Qty: 21 1RF (DME) FreeStyle [place] 2 Corona Misc See Rx Instructions .Route Qty: 1 0RF Rx Instructions: As directed (DME) pen needle, diabetic [BD Ultra-Fine Orig Pen Needle] 29 gauge x 1/2 needle See Rx Instructions .Route Qty: 100 0RF Rx Instructions: Use to inject insulin once a day (DME) FreeStyle [place] 3 Plus Sensor Device See Rx Instructions .Route Qty: 6 3RF Rx Instructions: every 15 days (DME) FreeStyle [place] 3 Corona Misc See Rx Instructions .Route Qty: 1 0RF Rx Instructions: continuous (DME) pen needle, diabetic 32 gauge x 5/32 needle See Rx Instructions .Route Qty: 100 2RF Rx Instructions: Use three times daily for BD olga 2nd gen (DME) lancets [OneTouch Delica Plus Lancet] 33 gauge misc See Rx Instructions .Route Qty: 300 3RF Rx Instructions: test blood sugar TID (DME) OneTouch Ultra Test Strip See Rx Instructions .Route Qty: 300 3RF Rx Instructions: test blood sugar TID (DME) blood-glucose meter [OneTouch Ultra2 Meter] Misc See Rx Instructions .Route Qty: 1 0RF Rx Instructions: test blood sugar TID lisinopril 2.5 mg tablet 2.5 mg PO DAILY Qty: 90 2RF atorvastatin 80 mg tablet 80 mg PO BEDTIME Qty: 90 1RF acarbose 25 mg tablet 25 mg PO BEDTIME Qty: 90 3RF Rx Instructions: with dinner Eliquis 5 mg tablet 5 mg PO Q12H Qty: 180 3RF folic acid 1 mg tablet 1 mg PO DAILY 90 Days Qty: 90 2RF diltiazem HCl [Cartia XT] 240 mg capsule,extended release 24hr 240 mg PO DAILY omeprazole 40 mg capsule,delayed release(DR/EC) 40 mg PO DAILY@0630 (DME) [facility] See Rx Instructions .Route Qty: 1 0RF Rx Instructions: As directed isosorbide mononitrate 30 mg tablet extended release 24 hr 30 mg PO DAILY metformin 1,000 mg tablet 1,000 mg PO BID Qty: 180 3RF (DME) pen needle, diabetic [CareTouch Pen Needle] 32 gauge x 5/32 needle See Rx Instructions .Route Qty: 400 3RF Rx Instructions: 4 daily subcutaneous for insulin administration Discontinued sertraline [Zoloft] 100 mg tablet 150 mg PO DAILY 90 Days Qty: 135 0RF trazodone 50 mg tablet 50 mg PO BEDTIME hyoscyamine sulfate 0.125 mg tablet 0.125 mg PO BID PRN (Reason: for indigestion) metoprolol succinate 50 mg tablet extended release 24 hr 150 mg PO BEDTIME loperamide 2 mg capsule 2 mg PO TID PRN (Reason: yes) ondansetron 4 mg tablet,disintegrating 4 mg PO Q8H PRN (Reason: nausea and vomiting) 30 Days Qty: 30 1RF No Action (DME) FreeStyle [place] 2 Sensor Kit See Rx Instructions .Route Qty: 6 4RF Rx Instructions: check glucose twice a day as directed Zenpep 10,000-32,000 -42,000 unit capsule,delayed release(DR/EC) 1 cap PO QID 30 Days Qty: 120 3RF insulin glargine [Lantus Solostar U-100 Insulin] 100 unit/mL (3 mL) insulin pen 14 unit subcut DAILY Qty: 15 5RF ferrous fumarate 325 mg (106 mg iron) tablet 325 mg PO DAILY Qty: 90 1RF cholecalciferol (vitamin D3) 50 mcg (2,000 unit) capsule 50 mcg PO DAILY Qty: 90 1RF azelastine 137 mcg (0.1 %) spray,non-aerosol 2 spray intranasal BID PRN (Reason: postnasal drip) Qty: 90 0RF Rx Instructions: administer into each nostril acetaminophen 500 mg tablet 500 mg PO BID Qty: 90 0RF Rx Instructions: Patient takes scheduled BID (in pill box) Zyrtec 10 mg capsule 10 mg PO DAILY Qty: 30 3RF insulin lispro [Humalog Panda KwikPen U-100] 100 unit/mL insulin pen, half-unit 1 sliding scale dose subcut TIDAC MDD 42 units Qty: 15 3RF Rx Instructions: 60- 124: No coverage 125-150: 4 units 151- 200: 6 units 201- 250: 8 units 251- 300: 10 units 301- 350: 12 units 351- 400: 14 units oxycodone 5 mg tablet 10 mg PO Q4H PRN (Reason: Pain, Severe (Pain Scale 7-10)) Rx Instructions: Partial Fill upon patient request. oxycodone 5 mg Capsule 5 mg PO Q8H PRN (Reason: Severe Pain (Scale Score 7-10)) Qty: 30 0RF Rx Instructions: Partial Fill upon patient request. sertraline 100 mg tablet 100 mg PO DAILY Discharge Orders: Discharge Order (Routine); Ordered 06/01/25 Ordered By: David Martini Diet: Advance to usual diet Activity on Discharge: As tolerated Stand Alone Forms: Patient Portal Discharge page, Community Support Print Language: Bengali Care Plan Goals: Continue stable mood with no hallucinations Evaluate treatment for restless leg and depression that will not contribute to confusion Health Concerns: Medication induced hallucinations and paranoia Restless legs syndrome Hypertension Diabetes Chronic pain Plan of Treatment: f/u with pychiatric provider pcp and oncology olanzapine 2.5 mg for hallucinations 1 at bedtime asneeded you can take another 2 days at bedtime then use as needed multiple medications have been held whuch may have been contributing to your confusion consider seeing neurology for restless leg syndrome can be set up by pcp Assessment: pt pleasant future oriented no confusion no hallucinations Discharge Date/Time: 06/01/25 12:25
[2025-06-01 11:17] LABS: Glucose, Whole Blood 182 mg/dL (60-115)
== END 2025-06-01 12:25 | disposition home or self-care (01) | DRG 751 ==
LOC: HO.ED 05-27 12:58 → HO.PGERI 05-27 13:42
PROVIDERS: Emergency Medicine; Physician Assistant Medical; Admitting Provider Psychiatry & Neurology Psychiatry; Emergency Provider Emergency Medicine; PCP Internal Medicine; Visit Provider Psychiatry & Neurology Psychiatry
DX: F33.9 Major depressive disorder, recurrent, unspecified (principal); C34.12 Malignant neoplasm of upper lobe, left bronchus or lung; K86.89 Other specified diseases of pancreas; C91.11 Chronic lymphocytic leukemia of B-cell type in remission; G25.81 Restless legs syndrome; K21.9 Gastro-esophageal reflux disease without esophagitis; E11.65 Type 2 diabetes mellitus with hyperglycemia; I48.91 Unspecified atrial fibrillation; R44.1 Visual hallucinations; E78.5 Hyperlipidemia, unspecified; K59.00 Constipation, unspecified; I25.10 Atherosclerotic heart disease of native coronary artery without angina pectoris; Z95.0 Presence of cardiac pacemaker; I10 Essential (primary) hypertension; T42.8X5A Adverse effect of antiparkinsonism drugs and other central muscle-tone depressants, initial encounter; Z95.1 Presence of aortocoronary bypass graft; Z95.2 Presence of prosthetic heart valve; Z79.01 Long term (current) use of anticoagulants; Z79.4 Long term (current) use of insulin; Z79.84 Long term (current) use of oral hypoglycemic drugs; Z79.899 Other long term (current) drug therapy
CPT/HCPCS: 36415; 70450; 72125; 80053; 80061; 81001; 82140; 82565; 82607; 82746; 82947; 83036; 83540; 83735; 84439; 84443; 85025; 85652; 86038; 86039; 86431; 87086; 93005; 95816; 99285; S9485

== ENCOUNTER → 2025-05-25 20:24 | Outpatient (BNV) | payer MEDICARE, SELFPAY | PROVIDERS: Emergency Provider Emergency Medicine; PCP Internal Medicine; Visit Provider Radiology Vascular & Interventional Radiology | DX: R44.1 Visual hallucinations (principal); Z03.89 Encounter for observation for other suspected diseases and conditions ruled out | CPT/HCPCS: 70450; 72125 ==

== ENCOUNTER 2025-05-27 12:25 | Outpatient (BNV) | payer MEDICARE, SELFPAY | END 2025-05-31 13:10 | PROVIDERS: Admitting Provider Psychiatry & Neurology Psychiatry; Emergency Provider Emergency Medicine; PCP Internal Medicine; Visit Provider Psychiatry & Neurology Neurology | DX: R44.1 Visual hallucinations (principal) | CPT/HCPCS: 95816 ==

== ENCOUNTER 2025-05-27 12:25 | Outpatient (BNV) | payer MEDICARE, SELFPAY | END 2025-05-28 14:55 | PROVIDERS: Admitting Provider Psychiatry & Neurology Psychiatry; Emergency Provider Emergency Medicine; PCP Internal Medicine; Visit Provider Internal Medicine Cardiovascular Disease | DX: R94.31 Abnormal electrocardiogram [ECG] [EKG] (principal); Z95.0 Presence of cardiac pacemaker | CPT/HCPCS: 93010 ==

== ENCOUNTER → 2025-05-27 12:25 | Outpatient (BNV) | payer OTHER, SELFPAY | PROVIDERS: Admitting Provider Psychiatry & Neurology Psychiatry; Emergency Provider Emergency Medicine; PCP Internal Medicine; Visit Provider Psychiatry & Neurology Psychiatry | DX: F33.3 Major depressive disorder, recurrent, severe with psychotic symptoms (principal); F41.8 Other specified anxiety disorders; I10 Essential (primary) hypertension | CPT/HCPCS: 99231 ==

== ENCOUNTER → 2025-05-27 12:25 | Outpatient (BNV) | payer OTHER, SELFPAY | PROVIDERS: Admitting Provider Psychiatry & Neurology Psychiatry; Emergency Provider Emergency Medicine; PCP Internal Medicine; Visit Provider Psychiatry & Neurology Psychiatry | DX: R44.1 Visual hallucinations (principal); F33.9 Major depressive disorder, recurrent, unspecified; I10 Essential (primary) hypertension; Z86.79 Personal history of other diseases of the circulatory system; Z95.2 Presence of prosthetic heart valve; E11.65 Type 2 diabetes mellitus with hyperglycemia; Z79.4 Long term (current) use of insulin; G25.81 Restless legs syndrome; G93.40 Encephalopathy, unspecified; R91.8 Other nonspecific abnormal finding of lung field | CPT/HCPCS: 90792 ==

== ENCOUNTER → 2025-05-27 12:25 | Outpatient (BNV) | payer MEDICARE, SELFPAY | PROVIDERS: Admitting Provider Psychiatry & Neurology Psychiatry; Emergency Provider Emergency Medicine; PCP Internal Medicine; Visit Provider Internal Medicine | DX: C34.92 Malignant neoplasm of unspecified part of left bronchus or lung (principal) | CPT/HCPCS: 99222 ==

== ENCOUNTER → 2025-05-27 12:25 | Outpatient (BNV) | payer MEDICARE, SELFPAY | PROVIDERS: Admitting Provider Psychiatry & Neurology Psychiatry; Emergency Provider Emergency Medicine; PCP Internal Medicine; Visit Provider Nurse Practitioner Family | DX: I10 Essential (primary) hypertension (principal) | CPT/HCPCS: 99222 ==

== ENCOUNTER → 2025-05-27 12:25 | Outpatient (BNV) | payer MEDICARE, SELFPAY | PROVIDERS: Admitting Provider Psychiatry & Neurology Psychiatry; Emergency Provider Emergency Medicine; PCP Internal Medicine; Visit Provider Psychiatry & Neurology Neurology | DX: G25.81 Restless legs syndrome (principal) | CPT/HCPCS: 99222 ==

== ENCOUNTER 2025-06-10 13:02 | Outpatient (AMB) | payer MEDICARE, SELFPAY ==
[2025-06-10 13:15] VITALS: BP 130/60; PULSE 60; RESP 16; TEMP 36.9; O2SAT 97; BMI 32.0
--- NOTE | 2025-06-10 13:15 | A.OFFPC_ITS ---
Vital Signs 06/10/25 13:15 Height 5 ft Weight 164 lb BMI 32.0 BP 130/60 Blood Pressure Location Rt brachial Position Sitting Respiration 16 Pulse 60 Pulse Source Pulse Oximeter Temp 98.4 F Temp Source Oral Pulse Oximetry (%) 97 Oxygen Delivery Method Room Air Intake Visit Reasons: C HDF/hallucinations Intake Note: Pt is here today for her HDF/hallucinations Allergies sulfamethoxazole (From Bactrim) Allergy (Severe, Verified 06/15/25 03:51) Rash adhesive tape (ADHESIVE TAPE) Allergy (Intermediate, Verified 06/15/25 03:51) BLISTERS clonidine Allergy (Verified 06/15/25 03:51) makes pt hulusinate adhesive Adverse Reaction (Severe, Verified 06/15/25 03:51) BLISTERS gabapentin Adverse Reaction (Severe, Verified 06/15/25 03:51) hallucination hydromorphone (From Dilaudid) Adverse Reaction (Severe, Verified 06/15/25 03:51) Hallucinations morphine Adverse Reaction (Severe, Verified 06/15/25 03:51) hallucination glue Adverse Reaction (Severe, Uncoded 06/15/25 03:51) BLISTERS Medication List - Last Reconciled 06/10/25 by Sary Waite MD acarbose 25 mg PO BEDTIME acetaminophen 500 mg PO BID atorvastatin 80 mg PO BEDTIME azelastine 2 sprays intranasal BID PRN cetirizine (Zyrtec) 10 mg PO DAILY cholecalciferol (vitamin D3) 50 mcg PO DAILY clotrimazole 2% 1 appful vaginal BEDTIME PRN diltiazem HCl CD (Cartia XT) 240 mg PO DAILY Donut pillow As directed Eliquis (apixaban) 5 mg PO Q12H NS ferrous fumarate 325 mg PO DAILY flash glucose scanning reader (FreeStyle [place] 2 Robbins) As directed flash glucose sensor (FreeStyle [place] 2 Sensor kit) check glucose twice a day as directed folic acid 1 mg PO DAILY 90 days FreeStyle [place] 3 Plus Sensor (blood-glucose sensor) every 15 days NS FreeStyle [place] 3 Robbins (blood-glucose,payroll master,cont) continuous NS insulin glargine (Lantus Solostar U-100 Insulin) 14 units (0.14 mL) subcut DAILY insulin lispro (Humalog Panda KwikPen (U-100)) 1 sliding scale dose subcut TIDAC MDD 42 units isosorbide mononitrate ER 30 mg PO DAILY hckexe-mzocwgjv-nikctdb 10,000-32,000 -42,000 unit (Zenpep) 1 cap PO QID 30 days lisinopril 2.5 mg PO DAILY metformin 1,000 mg PO BID metoprolol succinate ER 50 mg See Protocol PO DAILY 30 days olanzapine 2.5 mg PO BEDTIME PRN 14 days omeprazole 40 mg PO DAILY@0630 OneTouch Delica Plus Lancet (lancets) test blood sugar TID NS OneTouch Ultra Test (blood sugar diagnostic) test blood sugar TID NS OneTouch Ultra2 Meter (blood-glucose meter) test blood sugar TID NS oxycodone 10 mg PO Q4H PRN pen needle, diabetic (BD Ultra-Fine Original Pen Needle) Use to inject insulin once a day pen needle, diabetic (CareTouch Pen Needle) 4 daily subcutaneous for insulin administration pen needle, diabetic Use three times daily for BD olga 2nd gen sertraline 100 mg PO DAILY Tobacco use date assessed: 06/10/25 Fall risk assessment: No Falls in past year Last assessed Fall Risk: 06/10/25 Dental Screening Dental Screen Date: 02/08/25 HPI [facility] HDF/hallucinations HPI Details - The patient is a 80-year-old female wi th history of CLL, coronary artery disease, type 2 diabetes mellitus, anemia, stuck syndrome, non-small cell cancer of left lung, presenting today for follow-up after recent hospital admission for hallucinations - Chronic Lymphocytic Leukemia (CLL) is currently in remission, with a history of pulmonary nodules requiring ongoing monitoring. - Coronary Artery Disease (CAD) is being managed with ongoing medication therapy. - Diabetes Mellitus Type 2 is being kwan ged with Lantus, mealtime insulin, and metformin, with recent addition of acarbose to help manage blood sugar levels. - Anemia has been a persistent issue, wi th recent lab results showing slight improvement in hemoglobin levels. - Restless Leg Syndrome has been associa mikki with anemia, and treatment has focused on managing the anemia to alleviate symptoms. - Hallucinations have been linked to med ication interactions, particularly with sertraline, and adjustments have been made to the medication regimen to address this. - The patient has experienced medication -induced side effects, which have been addressed by adjusting the medication regimen. She feels well at present time, no further hallucinations recorded, or episodes of confusion. [facility] Medical History Depression with anxiety Hx of aortic valve stenosis Depression Diabetes mellitus with hyperglycemia, with long-term current use of insulin Swelling of knee joint, left Hx of sigmoidoscopy Metformin adverse reaction Adenocarcinoma of left lung (~2021) Aortic stenosis Atypical migraine Transient cerebral ischemia AVM (arteriovenous malformation) of colon Normocytic anemia Nonrheumatic mitral valve regurgitation Nonrheumatic aortic (valve) stenosis Obesity History of blood transfusion Barretts esophagus AAA (abdominal aortic aneurysm) (~2008) Bleeding hemorrhoids Anemia Arthritis On anticoagulant therapy (~10/2020) On beta ashleigh at home Pulmonary nodules Mixed dyslipidemia Vitamin B12 deficiency GIB (gastrointestinal bleeding) COPD (chronic obstructive pulmonary disease) Bilateral pulmonary embolism (~10/2020) Restless leg syndrome Irritable bowel syndrome with both constipation and diarrhea GERD without esophagitis CAD (coronary artery disease) Essential hypertension Surgical History S/P TAVR (transcatheter aortic valve replacement) History of lung biopsy (~2021) History of esophagogastroduodenoscopy (EGD) (~2020) History of hysterectomy History of colonoscopy (~2018) History of coronary artery bypass graft x 2 (~2017) History of total right knee replacement (TKR) (~2015) History of bilateral breast reduction surgery (~2010) S/P excision of lipoma (~2017) History of heart artery stent (~2007) Family History Father HTN (hypertension) Myocardial infarction Hyperlipidemia Abdominal aneurysm Mother HTN (hypertension) Myocardial infarction Hyperlipidemia Brother Alzheimer's disease Substance abuse Sister Rheumatoid arthritis Brother Rheumatoid arthritis Maternal Aunt Diabetes mellitus Lung cancer Maternal Uncle Diabetes mellitus Son No problems noted. Daughter No problems noted. 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/ [employer] Sexual orientation: Straight/Heterosexual Cognitive needs: No Hearing needs: No Vision needs: Yes Questionnaire Thrive Questionnaire Date Thrive assessed: 10/29/24 I am a: Patient What is your living situation today?: I have a steady place to live Within the past 12 months, did the food you bought not last and you didn't have the money to get more?: Never true Within the past 12 months, did you worry whether your food would run out before you got money to buy more?: Never true Do you have trouble paying for medicines?: No Do you have trouble getting transportation to medical appointments?: No Do you have trouble paying your heating and electricity bill?: No Do you have trouble taking care of your child, family member or friend?: No Do you have trouble with day-to-day activities such as bathing, preparing meals, shopping, managing finances, etc.?: Yes Are you currently unemployed and looking for a job?: No Are you interested in more education?: No Please select the resources that you would like help with: None Currently or been in a relationship where the following occur: No concerns reported THRIVE Score: 0 BO-7 AMB Questionnaire BO-7 Date BO - 7 assessed: 05/09/25 Source: Developed by Drs. Alexey Arreaga, Yokasta Paulino, Pieter Oro and colleagues, with an educational jose j from [employer]. Review of Systems Const Denies fever(s), Denies frequent falls and Denies headache(s) Eyes Reports no additional complaints ENT Denies dysphagia and Denies headache(s) Card Denies syncope, Denies irregular heart rhythm and Denies dyspnea Resp Denies cough, Denies dyspnea and Denies wheezing GI Denies abdominal pain, Denies melena, Denies change in bowel habits, Denies dysphagia and Denies vomiting Reports no additional complaints Musc Denies arthralgias, Denies joint swelling and Reports stiffness Neuro Denies syncope, Denies frequent falls and Denies headache(s) Psych Reports no additional complaints Endo Denies polyphagia Lele/Lymph Reports easy bruising Aller/Immun Denies wheezing Physical exam (Primary Care) Vital Signs: Last Vital Signs Temp 98.4 F 06/10/25 13:15 Pulse 60 06/10/25 13:15 Resp 16 06/10/25 13:15 BP 130/60 06/10/25 13:15 Pulse Ox 97 06/10/25 13:15 Oxygen Delivery Method Room Air 06/10/25 13:15 BMI result Body Mass Index 32.0 Tobacco/Smoking Status: Tobacco use Status Tobacco use date assessed 06/10/25 06/10/25 13:26 Patient Tobacco Use Status Never used Tobacco 06/10/25 13:18 Tobacco use type Cigarette 06/10/25 13:18 e-Cigarette/Vaping Use Never Used 06/10/25 13:18 Thrive Assessment: Date of Thrive Assessment Date Thrive assessed 10/29/24 06/10/25 13:18 Currently or been in a relationship where the following occur: No concerns reported Const Other: Alert oriented x3, no acute cardiorespiratory distress, ambulatory with normal gait Orientation/consciousness: patient oriented x3 HENMT Mouth: Normal oral and palatal mucosa present and moist mucous membranes Neck Other: Supple, no lymphadenopathy, thyroid gland nonpalpable Resp Effort & Inspection: normal respiratory effort and able to speak in complete sentences Auscultation: clear to auscultation bilaterally Cardio Other: S1-S2 present regular rate and rhythm GI Palpation (GI): Soft to palpation, nontender, no guarding and no masses Auscultation: normal bowel sounds General: Yes no CVA tenderness Back/Spine/Pelvis Back: no CVA tenderness Skin General skin exam: no rashes or lesions noted Neuro General: patient oriented x3, gait normal, tone normal, moves all extremities, Normal light touch and pain sensation, no focal motor deficits and CN's II-XI intact bilaterally Extrem General: Yes full ROM, Yes no calf tenderness and Yes normal gait Psych Appearance: grossly normal and well kempt Mental Status: mental status grossly normal Speech and movement: Normal speech and movement present Affect: normal affect Attitude: cooperative Thought process: Normal thought process present Thought content: Normal thought content present Coding Level of Care Code Est Pt Level 4 (33026) Complex EM visit Add On G2211 Diagnoses Depression with anxiety F41.8 Essential hypertension I10 Mixed dyslipidemia E78.2 Type 2 diabetes mellitus with hyperglycemia, with long-term current use of insulin E11.65; Z79.4 Diabetes mellitus type: type 2 Non-small cell cancer of left lung C34.92 Assessment & Plan Assessment & Plan (1) Depression with anxiety: Code(s): F41.8 - Other specified anxiety disorders Category: Medical (2) Essential hypertension: Code(s): I10 - Essential (primary) hypertension Category: Medical (3) Mixed dyslipidemia: Code(s): E78.2 - Mixed hyperlipidemia Category: Medical (4) Diabetes mellitus with hyperglycemia, with long-term current use of insulin: Code(s): E11.65 - Type 2 diabetes mellitus with hyperglycemia; Z79.4 - rodent exterminator (current) use of insulin Category: Medical Qualifiers: Diabetes mellitus type: type 2 Qualified Code(s): E11.65 - Type 2 diabetes mellitus with hyperglycemia; Z79.4 - rodent exterminator (current) use of insulin (5) Non-small cell cancer of left lung: Code(s): C34.92 - Malignant neoplasm of unspecified part of left bronchus or lung Category: Medical Plan Patient was informed and verbally consented to the use of an ambient scribe for clinic note documentation during this visit 1. Chronic Lymphocytic Leukemia (Cll) In Remission The patient will continue regular follow-up appointments to monitor the status of CLL, with particular attention to any changes in the pulmonary nodules. 2. Pulmonary Nodule Regular PET scans are scheduled to monitor the pulmonary nodule for any changes. 3. Coronary Artery Disease (Cad) The patient will continue current cardiac medications to manage CAD and prevent further complications. 4. Diabetes Mellitus Type 2 The management plan includes the continuation of Lantus, mealtime insulin, and metformin, with the recent addition of acarbose to better control blood glucose levels. 5. Anemia The patient will continue monitoring hemoglobin levels and adjust iron s upplementation as needed to manage anemia. 6. Restless Leg Syndrome Management focuses on treating the underlying anemia to alleviate symptoms of Restless Leg Syndrome. 7. Hallucinations Medication adjustments have been made to address hallucinations, particularly focusing on interactions with sertraline. 8. Medication-Induced Side Effects The medication regimen has been adjusted to minimize side effects, with ongoing monitoring for any adverse reactions 9. Currently followed by Oncology for metastatic adenocarcinoma of left lung, patient however has decided not to pursue any further treatment.
--- OUTSIDE RECORDS SUMMARY | 2025-06-10 13:41 | XMS_ITS | Clinical Summary ---
Author Organization [facility] Address [address] [address] Care Team Providers Care Hydraulic Oil Tool Operator Name Role Phone Elayne Waite MD Primary Care Provider [phone] Allergies Active Allergy Reactions Criticality Noted Date [...] Health Medicare [facility] Medicare Care Teams Hydraulic Oil Tool Operator Relationship Specialty Start Date End Date Elayne Waite MD [address] [place] [address] PCP - General Internal Medicine 02/26/22
--- OUTSIDE RECORDS SUMMARY | 2025-06-10 13:41 | XMS_ITS | Clinical Summary ---
Author Organization [facility] Address [address] [place] [address] Care Team Providers Care Certified Master Locksmith Name Role Phone Sary Waite MD Primary [...] mcg (0.1 %) nasal spray [employer] [place](s) Both Nares Twice Daily PRN 4 Active [...] 75+ series) 2022 COVID-19 Vaccine (3 - season) 2024 04/28/2022, 07/28/2021 Alcohol/Substance Use Screening 10/14/2024 Depression Screening and Follow-Up 10/14/2024 Health Care Proxy Review 10/14/2024 Social Drivers of Health Annual Screening 10/14/2024 Influenza Vaccine (#1) 2025 , 07/27/2020, 08/15/2019, Additional history exists DTaP,Tdap,and Td Vaccines (2 - Td or Tdap) 09/15/2028 09/15/2018 Pneumococcal Vaccine: 50+ Years Completed 07/27/2020, 09/18/2019, 05/29/2016 Zoster Vaccines Completed 10/08/2020, 06/15, 07/04/2020 Hepatitis B Vaccines Aged Out No long er eligible based on patient's age to complete this topic Insurance [facility] Care Teams Certified Master Locksmith Relationship Specialty Start Date End Date Sary Waite MD [address] [place] [address] PCP - General Internal Medicine 11/18/24
--- OUTSIDE RECORDS SUMMARY | 2025-06-10 13:41 | XMS_ITS | Clinical Summary ---
Author Organization Patient Business Ser [facility] Address [address] [place] [address] Care Team Providers Care Electro Mechanical Technologist Name Role Phone Sary Waite MD Primary [...] capsuleIndicatio ns:Essential hypertension,Cor onary artery disease involving minto coronary artery of minto heart without angina pectoris Take 1 capsule (240 mg total) by mouth 1 (one) time each day. 90 each 3 5 02/18/20 26 Active metoprolol succinate (TOPROL-XL) 50 mg 24 hr tabletIndication s:Essential hypertension,Cor onary artery disease involving minto coronary artery of minto heart without angina pectoris Take 1 tablet [...] 30 each 2 5 04/12/20 26 Active Active Problems Problem Noted Date Diagnosed [...] 2018 she presented with chest pain to [facility] and urgent angiogram showed multivessel disease status post two vessel CABG with DURHAM to LAD and SVG to OM1; complicated by difficult vein harvesting with subsequent leg wounds 2021 - preTAVR angiogram showing progressive disease with new KNOCKOUT WORKER of dominant RCA Assessment & Plan (04/12/2025 3:07 PM EDT): Catheterization from 2021 showed patent grafts with known KNOCKOUT WORKER of RCA. Echocardiogram from November 2024 showed [...] from 2021 showed patent grafts with known KNOCKOUT WORKER of RCA. Echocardiogram from November 2024 showed [...] Complete heart block ([facility] V24, [facility] V28) 02/15/2025 Assessment & Plan (03/26/2025 3:24 PM EDT): Chest pain 02/08/2023 COPD (chronic obstructive pu lmonary disease) ([facility] V24, [facility] V28) 01/26/2022 Mixed hyperlipidemia 01/26/2022 Assessment & Plan (04/12/2025 3:07 PM EDT): Continue with atorvastatin. Orders: ECG 12 lead Assessment & Plan (02/17/2025 11:53 AM EDT): Continue with atorvastatin. Obesity 01/26/2022 Type 2 diabetes mellitus wit hout complications ([facility] V24, [facility] V28) 01/26/2022 Overview (11/16/2024): w/o service loss control consultant current use of insulin Pain of right lower extremity 09/29/2021 Abdominal aortic aneurysm (A AA) without rupture ([facility] V24) 03/14/2021 Primary hypertension 03/14/2021 Assessment & [...] the femoral approach by Dr. Humphries at [facility]; procedure complicated by complete heart block [...] Date Diagnosed Date Resolved Date Cardiac arrest ([facility] V24, [facility] V28) 04/07/2025 04/09/2025 Infection of pacemaker pocket ([facility] V24) 02/25/2025 04/09/2025 Encounters Date Type Department Care Team Description 05/12/2025 7:30 PM EDT Ancillary Procedure [facility] [address] [facility] [address] [place] [address] 04/29/2025 1:00 PM EDT Ancillary Procedure [facility] [address] [place] [address] 04/22/2025 3:10 PM EDT Office Visit [facility] [address] [place] [address] Steffi Palacios NP Infection of pacemaker pocket, sequela (Primary Dx) 04/15/2025 11:10 AM EDT Office Visit [facility] [address] [place] [address] Steffi Palacios NP Pacemaker (Primary Dx) 04/12/2025 1:40 PM EDT Office Visit [facility] [address] [place] [address] Armando Bentley NP S/P TAVR (transcatheter aortic valve replacement) (Primary Dx); Coronary artery disease involving minto coronary artery of minto heart without angina pectoris; Pacemaker; Primary hypertension; Mixed hyperlipidemia 04/07/2025 12:35 PM EDT Anesthesia Event [facility] Service Advisor [address] [place] [phone] Pablo Gutierrez MD 04/07/2025 11:00 AM EDT - 04/07/2025 12:00 PM EDT Surgery [facility] [address] [place] [phone] Devyn Tenorio MD Insert temporary pacemaker 04/07/2025 10:20 AM EDT - 04/09/2025 4:08 PM EDT Hospital Encounter [facility] [address] [place] [phone] Devyn Tenorio MD Japaridze, Anna, MD Seralathan, Manikandan, MD Pericardial effusion after operative procedure (Primary Dx); Infection of pacemaker pocket, sequela; Cardiac arrest (CMS/HCC V24, CMS/HCC V28) Discharge Disposition: [place]-Health Care [facility] [place] 04/07/2025 Telephone [facility] [address] [place] [address] Armando Bentley NP 03/30/2025 10:00 AM EDT Clinical Support [facility] [address] [place] [address] 03/30/2025 Telephone [facility] [address] [place] [address] Devyn Tenorio MD 03/29/2025 11:30 AM EDT Ancillary Procedure [facility] Card[facility] [address] [place] [address] Nonrheumatic aortic valve stenosis 03/26/2025 1:00 PM EDT Office Visit [facility] [address] [place] [address] Devyn Tenorio MD Coronary artery disease involving minto coronary artery of minto heart without angina pectoris (Primary Dx); Complete heart block (CMS/HCC V24, CMS/HCC V28); History of transcatheter aortic valve replacement (TAVR); Primary hypertension 03/24/2025 Telephone [facility] [address] [place] [address] Hilary Bartholomew PA 03/23/2025 2:30 PM EDT Ancillary Procedure [facility] [address] [place] [address] 03/18/2025 3:00 PM EDT Clinical Support [facility] [address] [place] [address] Encounter for adjustment or management of cardiac device from Last 3 Months Surgical History Surgery Date Site/Laterality Comments OTHER SURGICAL HISTORY Bilateral PROCEDURE: HISTORY OTHER; COMMENT: breast reduction surgey COLONOSCOPY PROCEDURE: HISTORICAL COLONOSCOPY CORONARY ARTERY BYPASS GRAFT 2018 PROCEDURE: HISTORICAL CABG; COMMENT: x 2 OTHER SURGICAL HISTORY PROCEDURE: NC EGD PARTIAL/COMPL ESOPHAGOGASTRIC FUNDOPLASTY OTHER SURGICAL HISTORY PROCEDURE: HISTORY OTHER; COMMENT: Heart Artery Stent HYSTERECTOMY PROCEDURE: HISTORICAL HYSTERECTOMY TOTAL KNEE ARTHROPLASTY PROCEDURE: NC ARTHRP KNE CONDYLE&PLATU MEDIAL&LAT COMPARTMENTS LIPOMA RESECTION PROCEDURE: SKIN TISSUE EXCISION(LIPOMA) OTHER SURGICAL HISTORY [place] [facility] [place]KM. INDICATIONS: Aortic stenosis [place] [facility] [place] w[place]SR. INDICATIONS: Complete Heart Block with Non Reversible, Symptomatic Bradycardia Medical History Medical History Date Comments Anemia DX:Anemia Arthritis DX:Arthritis Atypical migraine DX:Atypical mi graine AVM (arteriovenous malformation) of colon DX:AVM (arteriovenous malformation) of colon Barretts esophagus DX:Barretts e sophagus Bleeding hemorrhoids DX:Bleeding hemorrhoids COPD (chronic obstructive pu lmonary disease) ([facility], [facility] V28) DX:COPD (chronic o bstructive pulmonary disease) ([facility]) Depression DX:Depression GERD (gastroesophageal reflux disease) DX:GERD (gastroesophageal reflux disease) GIB (gastrointestinal bleeding) DX:GIB (gastrointestinal bleeding) History of blood transfusion DX: History of blood transfusion IBS (irritable bowel syndrome) D X:IBS (irritable bowel syndrome); COMMENT: w/ both constipation and diarrhea Major depression in full rem ission ([facility] V24) DX:Major depression in full remission ([facility]) Obesity DX:Obesity Restless leg syndrome DX:Restles s leg syndrome Transient cerebral ischemia DX:T ransient cerebral ischemia Type 2 diabetes mellitus wit hout complications ([facility] V24, [facility] V28) DX:Type 2 bo betes mellitus without complications ([facility]); COMMENT: w/o assisted current use of insulin Adenocarcinoma of left lung ([facility] V24, [facility] V28) DX:Adenocarcinoma of left marce ng ([facility]) Anxiety and depression Hypertension Hyperlipidemia H/O: lung [...] for your loved ones. For example, child abuse worker or elderly care for an older adult? [...] Description 07/20/2025 1:10 PM EDT Office Visit [facility] [address] [place] [address] Armando Bentley NP [address] [place] [address] [address] [place] [phone] 02/28/2026 1:00 PM EDT Ancillary Procedure [facility] [address] [place] [phone] Health Maintenance Due Date Last Done Comments [...] this topic Medical Devices Implanted Type Area Loading Dock Helper Device Identifier Shelf Expiration Date Model / Serial / Lot Medt-Card Eloisa Xt Dr Monroy [id number] Implanted:2024 (Quantity not on file) Cardiac Pacemaker [employer] - CARDIAC RHYTH-CRDM ELOISA XT DR MONROY [id number] / [id number] / Medt-Card Eloisa Xt Dr Monroy [id number] Implanted:2024 (Quantity not on file) Cardiac Pacemaker [employer] - CARDIAC RHYTH-CRDM ELOISA XT DR MONROY / [id number] / Pacemaker Leadless 19.5f 38mm Rv - [id number] - [id number] Implanted:Qty: 1 on 04/07/2025 by Devyn Tenorio MD at [facility] Cardiac Pacemaker Left: Chest Wall [facility] [id number] 02/17/2027 [id number] / [id number] / Pacemaker Leadless 19.5f 32.2mm Ra - [id number] - [id number] Implanted:Qty: 1 on 04/07/2025 by Devyn Tenorio MD at [facility] Cardiac Pacemaker Left: Chest Wall [facility] [id number] 03/01/2027 [id number] / [id number] / Absorber Antibacterial Med Envelope Tyrx - [id number] - [id number] Implanted:Qty: 1 on 03/03/2025 by Devyn Tenorio MD at [facility] Other Cardiac Implant Left: Chest [employer] - CARDIAC RHYTH-CRDM [id number] 09/09/2025 [id number] / [id number] / [id number] Procedures Procedure Name Priority Date/Time Associated Diagnosis [...] 12:10 PM EDT Nonrheumatic aortic valve stenosis from Last 3 Months Results * Cardiac device check - Remote- MURJ (05/12/2025 7:27 PM EDT) Date Time Interrogation Session [id number] CV DEVICE CHECK Type Interrogation Session Remote CV DEVICE CHECK Implantable Pulse Generator Loading Dock Helper MDT CV DEVICE CHECK Implantable Pulse Generator Type IPG CV DEVICE CHECK Implantable Pulse Generator Model Eloisa XT DR MRI [id number] CV DEVICE CHECK Implantable Pulse Generator Serial Number [id number] CV DEVICE CHECK Implantable Pulse Generator Implant Date 20250129 CV DEVICE CHECK Battery Remaining Longevity 128.0 CV DEVICE CHECK Battery Voltage 3.170 CV D EVICE CHECK Battery BUDGET EXAMINER Trigger 2.625 CV DEVICE CHECK Battery Status Middle of Service CV DEVICE CHECK Luis Statistic RA Percent Paced 31.77 CV DEVICE CHECK Luis Statistic RV Percent Paced 98.93 CV DEVICE CHECK Atrial Tachy Statistic AT/AF [place] Percent 0.00 CV DEVICE CHECK Lead Channel [...] Histograms reviewed * No significant changes noted us Devyn Tenorio MD CV IMPLANTABLE CARDIAC DEV ICE PROCEDURES Final Result * ECG 12 lead (04/12/2025 2:59 PM EDT) Ventricular Rate ECG 79 BPM GEMUSE Atrial Rate 94 BPM GEMUSE QRS Duration 198 ms GEMUSE Q-T Interval 490 ms GEMUSE QTc 561 ms GEMUSE R Corinth -16 degrees GEMUSE T Corinth 153 degrees GEMUSE ECG Interpretation Ventricular-pa cammie rhythm Abnormal ECG When compared with ECG of 28-SEP-2021 07:27, Electronic ventricular pacemaker has replaced Sinus rhythm Confirmed by Alicia CLAYTON JAMES ([id number]) on 04/13/2025 3:21:58 PM GEMUSE 04/12/2025 2:00 PM EDT 04/13/2025 3:21 PM EDT Armando Bentley WINDER OPERATOR ECG ORDERABLES Edited Resu lt - Final Performing Organization Address City/[facility]/ZIP Co de Phone Number GEMUSE * (ABNORMAL) POCT Glucose, blood (04/09/2025 10:51 AM EDT) Only the most recent of8 resultswithin the time period is included. [facility] Glucose POCT 333(H) 70 - 100 mg/dL 04/09/2025 10:51 AM EDT [facility] Blood Capillary blood specimen / Unknown 04/09/2025 10:51 AM EDT 04/09/2025 10:52 AM EDT Kelton Leong MD LAB POINT OF CA RE TEST DOCKED DEVICE UNSOLICITED RESULTS Final Result Performing Organization Address [facility]/ZIP Co de Phone Number [facility] [address] [place] [address], [place] [phone] * (ABNORMAL) CBC auto differential (04/09/2025 5:53 AM EDT) [facility] WBC 5.9 4.8 - 10.8 K/mcL LAB HEMETOLOGY METHOD 04/09/2025 6:55 AM EDT [facility] RBC 2.70(L) 3.80 - 4.80 M/mcL LAB HEMETOLOGY METHOD 04/09/2025 6:55 AM EDT [facility] Hemoglobin 8.3(L) 11.5 - 16.0 g/dL LAB HEMETOLOGY METHOD 04/09/2025 6:55 AM [facility] Hematocrit 25.3(L) 35.0 - 47.0 % LAB HEMETOLOGY METHOD 04/09/2025 6:55 AM [facility] MCV 93.7 79.0 - 98.0 FL LAB HEMETOLOGY METHOD 04/09/2025 6:55 AM [facility] MCH 30.7 27.0 - 32.0 pcg LAB HEMETOLOGY METHOD 04/09/2025 6:55 AM [facility] MCHC 32.8 32.0 - 37.0 g/dL LAB HEMETOLOGY METHOD 04/09/2025 6:55 AM [facility] RDW 13.5 11.0 - 15.0 % LAB HEMETOLOGY METHOD 04/09/2025 6:55 AM [facility] Platelets 181 130 - 400 K/mcL LAB HEMETOLOGY METHOD 04/09/2025 6:55 AM [facility] MPV 10.5 7.0 - 11.0 FL LAB HEMETOLOGY METHOD 04/09/2025 6:55 AM [facility] NRBC 0.0 <1.0 % LAB HEMETOLOGY METHOD 04/09/2025 6:55 AM [facility] NRBC Absolute 0.00 <0.10 K/mcL LAB HEMETOLOGY METHOD 04/09/2025 6:55 AM [facility] Neutrophils Relative 58.8 % LAB HEMETOLOGY METHOD 04/09/2025 6:55 AM [facility] Lymphocytes Relative 30.5 % LAB HEMETOLOGY METHOD 04/09/2025 6:55 AM [facility] Monocytes Relative 8.8 % LAB HEMETOLOGY METHOD 04/09/2025 6:55 AM [facility] Eosinophils Relative 1.2 % LAB HEMETOLOGY METHOD 04/09/2025 6:55 AM EDT [facility] Basophils Relative 0.2 % LAB HEMETOLOGY METHOD 04/09/2025 6:55 AM EDT [facility] Immature Granulocytes Relative 0.5 % LAB HEMETOLOGY METHOD 04/09/2025 6:55 AM EDT [facility] Neutrophils Absolute 3.47 1.50 - 7.00 K/mcL LAB HEMETOLOGY METHOD 04/09/2025 6:55 AM EDT [facility] Lymphocytes Absolute 1.80 1.00 - 5.00 K/mcL LAB HEMETOLOGY METHOD 04/09/2025 6:55 AM EDT [facility] Monocytes Absolute 0.52 0.20 - 1.00 K/mcL LAB HEMETOLOGY METHOD 04/09/2025 6:55 AM EDT [facility] Eosinophils Absolute 0.07 0.00 - 0.50 K/mcL LAB HEMETOLOGY METHOD 04/09/2025 6:55 AM EDT [facility] Basophils Absolute 0.01 0.00 - 0.20 K/mcL LAB HEMETOLOGY METHOD [facility] Immature Granulocytes Absolute 0.03 0.00 - 0.03 K/mcL LAB HEMETOLOGY METHOD 04/09/2025 6:55 AM EDT [facility] Blood Venous blood specimen / Unknown Venipuncture / Unknown 04/09/2025 5:53 AM EDT 04/09/2025 6:22 AM EDT us Mao VARGAS LAB BLOOD ORDERABLES Final Res ult [facility] [address] [place] [address], * (ABNORMAL) Basic metabolic panel (04/09/2025 5:53 AM EDT) Only the most recent of2 resultswithin the time period is included. Sodium 139 133 - 145 mmol/L LAB CHEMISTRY METHOD 04/09/2025 7:09 AM [facility] Potassium 4.2 3.5 - 5.5 mmol/L LAB CHEMISTRY METHOD 04/09/2025 7:09 AM [facility] Chloride 106 96 - 110 mmol/L LAB CHEMISTRY METHOD 04/09/2025 7:09 AM [facility] CO2 29 21 - 32 mmol/L LAB CHEMISTRY METHOD 04/09/2025 7:09 AM [facility] Anion Gap 4 3 - 11 LAB CHEMISTRY METHOD 04/09/2025 7:09 AM [facility] Glucose 191(H) 70 - 100 mg/dL LAB CHEMISTRY METHOD 04/09/2025 7:09 AM [facility] BUN 13 5 - 25 mg/dL LAB CHEMISTRY METHOD 04/09/2025 7:09 AM [facility] Creatinine 0.90 0.50 - 1.10 mg/dL LAB CHEMISTRY METHOD 04/09/2025 7:09 AM [facility] eGFR 66 >=60 mL/min/1. 73m2 LAB CHEMISTRY METHOD 04/09/2025 7:09 AM [facility] Comment:Calculation based on the Chronic Kidney Disease Epidemiology Collaboration (CKD-EPI) equation refit without adjustment for race. BUN/Creatinine Ratio 14.4 LAB CHEMISTRY METHOD 04/09/2025 7:09 AM [facility] Calcium 9.0 8.5 - 10.5 mg/dL LAB CHEMISTRY METHOD 04/09/2025 7:09 AM [facility] Blood Venous blood specimen / Unknown Venipuncture / Unknown 04/09/2025 5:53 AM EDT 04/09/2025 6:21 AM EDT Mao VARGAS LAB BLOOD ORDERABLES Final Res ult Performing Organization Address [facility]/ZIP Co de Phone Number [facility] [address] [place] [address], [place] [phone] * (ABNORMAL) Hemoglobin and hematocrit (04/08/2025 9:27 PM EDT) Only the most recent of2 resultswithin the time period is included. Hemoglobin 8.3(L) 11.5 - 16.0 g/dL LAB HEMETOLOGY METHOD 04/08/2025 9:49 PM EDT [facility] Hematocrit 25.4(L) 35.0 - 47.0 % LAB HEMETOLOGY METHOD 04/08/2025 9:49 PM EDT [facility] Blood Venous blood specimen / Unknown Venipuncture / Unknown 04/08/2025 9:27 PM EDT 04/08/2025 9:40 PM EDT Mao VARGAS LAB BLOOD ORDERABLES Final Res ult Performing Organization Address [facility] Co de Phone Number [facility] [address] [place] [address], [place] [phone] * Transfuse RBC (04/08/2025 4:52 PM EDT) Steffi Palacios WINDER OPERATOR BLOOD TRANSFUSION ORDERABLES Final Result * (ABNORMAL) TRANSTHORACIC ECHOCARDIOGRAM (TTE) COMPLETE W/ CONTRAST (04/08/2025 2:00 PM EDT) Left Atrium Major Corinth 6.0 cm CV PACS LA Area Sys [...] Signed Date: 04/08/2025 13:37 ET Workstation ID: [id number] Transcribed By: Self Edit Transcribed Date: 04/08/2025 [...] Signed Date: 04/08/2025 13:37 ET Workstation ID: [id number] Transcribed By: Self Edit Transcribed Date: 04/08/2025 13:33 ET us Steffi Palacios WINDER OPERATOR IMG XR PROCEDURES Final Resu lt * [...] Signed Date: 04/08/2025 12:36 ET Workstation ID: [id number] Transcribed By: Self Edit Transcribed Date: 04/08/2025 [...] Signed Date: 04/08/2025 12:36 ET Workstation ID: [id number] Transcribed By: Self Edit Transcribed Date: 04/08/2025 12:34 ET Steffi Palacios WINDER OPERATOR IMG CT PROCEDURES Final Resu lt * Type and screen (04/08/2025 11:22 AM EDT) ABO Group A 04/08/2025 12:22 PM EDT [facility] Rh Type Positive 04/08/2025 12:22 PM EDT [facility] Antibody Screen Negative 04/08/2025 12:22 PM EDT [facility] Blood Venous blood specimen / Unknown Venipuncture / Unknown 04/08/2025 11:22 AM EDT 04/08/2025 11:35 AM EDT us Steffi Palacios NP LAB BLOOD BANK TEST ORDERABL ES Final Result [facility] [address] [place] [address], * Prepare RBC: 1 Units (04/08/2025 11:03 AM EDT) Product Code [id number] 04/08/2025 1:47 PM EDT [facility] Unit Number [id number] 04/08/20 1:47 PM EDT [facility] Crossmatch Compatible 04/08/2025 12:32 PM EDT [facility] Dispense Status Transfused 04/08/2025 1:47 PM EDT [facility] Unit ABO Rh APOS 04/08/2025 1:47 PM EDT [facility] Unit Expiration Date Time [id number] 04/08/2025 1:47 PM EDT [facility] Unit Blood Type 6200 04/08/2025 1:47 PM EDT [facility] Blood Venous blood specimen / Unknown 04/08/2025 11:03 AM EDT 04/08/2025 11:35 AM EDT Steffi Palacios NP BLOOD BANK PRODUCT ORDERABLE S Final Result [facility] [address] [place] [address], * (ABNORMAL) Complete blood count (04/08/2025 6:34 AM EDT) WBC 8.8 4.8 - 10.8 K/[facility] HEMETOLOGY METHOD 04/08/2025 8:10 AM EDT [facility] RBC 2.40(L) 3.80 - 4.80 M/[facility] LAB HEMETOLOGY METHOD 04/08/2025 8:10 AM EDT [facility] Hemoglobin 7.2(L) 11.5 - 16.0 g/dL LAB HEMETOLOGY METHOD 04/08/2025 8:10 AM EDT [facility] Hematocrit 22.3(L) 35.0 - 47.0 % LAB HEMETOLOGY METHOD 04/08/2025 8:10 AM EDT [facility] MCV 94.9 79.0 - 98.0 FL LAB HEMETOLOGY METHOD 04/08/2025 8:10 AM EDT [facility] MCH 30.6 27.0 - 32.0 pcg LAB HEMETOLOGY METHOD 04/08/2025 8:10 AM EDT [facility] MCHC 32.3 32.0 - 37.0 g/dL LAB HEMETOLOGY METHOD 04/08/2025 8:10 AM EDT [facility] RDW 13.1 11.0 - 15.0 % LAB HEMETOLOGY METHOD 04/08/2025 8:10 AM EDT [facility] Platelets 198 130 - 400 K/mcL LAB HEMETOLOGY METHOD 04/08/2025 8:10 AM EDT [facility] MPV 10.9 7.0 - 11.0 FL LAB HEMETOLOGY METHOD 04/08/2025 8:10 AM EDT [facility] NRBC 0.0 <1.0 % LAB HEMETOLOGY METHOD 04/08/2025 8:10 AM EDT [facility] NRBC Absolute 0.00 <0.10 K/mcL LAB HEMETOLOGY METHOD 04/08/2025 8:10 AM EDT [facility] Blood Venous blood specimen / Unknown Venipuncture / Unknown 04/08/2025 6:34 AM EDT 04/08/2025 7:14 AM EDT us Steffi Palacios WINDER OPERATOR LAB BLOOD ORDERABLES Final R esult [facility] [address] [place] [address], * SST tube (04/08/2025 6:26 AM EDT) [facility] Extra Tube Hold for add-ons. 04/08/2025 9:01 AM EDT [facility] Comment:Auto resulted. Blood Venous blood specimen / Unknown Venipuncture / Unknown 04/08/2025 6:26 AM EDT 04/08/2025 7:15 AM EDT us Devyn Tenorio MD LAB BLOOD ORDERABLES Final Result [facility] [address] [place] [address], [place] [phone] * (ABNORMAL) POCT venous basic metabolic profile, (04/07/2025 6:09 PM EDT) Only the most recent of2 resultswithin the time period is included. [facility] Glucose Venous POCT 314(H) 70 - 100 mg/dL 04/07/2025 6:13 PM EDT [facility] Sodium Venous POCT 139 135 - 145 mmol/L 04/07/2025 6:13 PM T [facility] Potassium Venous POCT 5.9(H) 3.5 - 5.5 mmol/L 04/07/2025 6:13 PM T [facility] Chloride Venous POCT 104 96 - 110 mmol/L 04/07/2025 6:13 PM EDT [facility] TCO2 Venous POCT 26 21 - 32 mmol/L 04/07/2025 6:13 PM EDT [facility] BUN Venous POCT 19 5 - 25 mg/dL 04/07/2025 6:13 PM EDT [facility] Creatinine Venous POCT 0.7 0.5 - 1.1 mg/dL 04/07/2025 6:13 PM EDT [facility] Ionized Calcium Venous POCT 4.40(L) 4.50 - 5.30 mg/dL 04/07/2025 6:13 PM EDT [facility] Hemoglobin Venous POCT 9.9(L) 11.5 - 16.0 g/dL 04/07/2025 6:13 PM EDT [facility] Hematocrit Venous POCT 29(L) 35 - 47 % 04/07/2025 6:13 PM EDT [facility] Blood Venous blood specimen / Unknown 04/07/2025 6:09 PM EDT 04/07/2025 6:15 PM EDT us Devyn Tenorio MD LAB POINT OF CARE TEST DOCKED DEVICE UNSOLICITED RESULTS Final Result [facility] [address] [place] [address], * INSERT / REPLACE LEADLESS PPM, REMOVE [...] infection risk is significant reduced. The [place], [place] leadless system will allow AV synchrony most [...] used ultrasound-guided technique and placed an 8 Salvadorean sheath in the left femoral vein and a 6 Salvadorean sheath in the right femoral vein. Through [...] the right atrial appendage. I used multiple SLOVAK ADAM views and multiple contrast injections in [...] at 3 days 04/10/2025 9:42 AM EDT [facility] Gram Stain Result No polymorphonuclear leukocytes, No epithelial cells, and No organisms noted 04/10/2025 9:42 AM EDT [facility] Swab Left thorax structure / Unknown Non-blood Collection / Unknown 04/07/2025 2:07 PM EDT 04/07/2025 2:10 PM EDT us Steffi Palacios WINDER OPERATOR LAB MICROBIOLOGY - GENERAL O RDERABLES Final Result [facility] [address] [place] [address], [place] [phone] * (ABNORMAL) TRANSTHORACIC ECHOCARDIOGRAM (TTE) COMPLETE (03/29/2025 12:10 PM EDT) Left Atrium Minor [place] 5.6 cm CV PACS Left Atrium Major [place] 5.4 cm CV PACS LA Area Sys [...] Volume 83 mL CV PACS MV Deceleration Stanton 2.9 m/s2 CV PACS E Wave Deceleration [...] inferoseptal. Other segments could not be evaluated. Sandro Humphries MD CV ECHO PROCEDURES Final Result from Last 3 Months Insurance [employer] Advance Directives Documents on File Type Date Recorded Patient Roof Service Technician Expl anation Health Care Decision (hx) 04/10/2022 AD KIDD DIRECTIVE Health Care Decision (hx) 04/10/2022 AD KIDD DIRECTIVE Health Care Decision (hx) 04/10/2022 AD KIDD DIRECTIVE Health Care Decision (hx) 04/10/2022 AD KIDD DIRECTIVE Health Care Decision (hx) 04/10/2022 AD KIDD DIRECTIVE Health Care Decision (hx) 04/10/2022 AD KIDD DIRECTIVE Care Teams Electro Mechanical Technologist Relationship Specialty Start Date End Date Sary Waite MD [address] [place] [address] PCP - General 02/08/16
== END 2025-06-10 14:09 | disposition home or self-care (01) ==
PROVIDERS: PCP Internal Medicine; Visit Provider Internal Medicine
DX: E11.65 Type 2 diabetes mellitus with hyperglycemia (principal); Z79.4 Long term (current) use of insulin; C34.92 Malignant neoplasm of unspecified part of left bronchus or lung; F41.8 Other specified anxiety disorders; I10 Essential (primary) hypertension; E78.2 Mixed hyperlipidemia

== ENCOUNTER → 2025-06-10 13:02 | Outpatient (BNVA) | payer MEDICARE, SELFPAY | PROVIDERS: PCP Internal Medicine; Visit Provider Internal Medicine | DX: I25.10 Atherosclerotic heart disease of native coronary artery without angina pectoris (principal); E11.9 Type 2 diabetes mellitus without complications; G25.81 Restless legs syndrome; F41.8 Other specified anxiety disorders; I10 Essential (primary) hypertension; E78.2 Mixed hyperlipidemia; E11.65 Type 2 diabetes mellitus with hyperglycemia; C34.92 Malignant neoplasm of unspecified part of left bronchus or lung; C91.11 Chronic lymphocytic leukemia of B-cell type in remission; Z79.4 Long term (current) use of insulin; Z79.84 Long term (current) use of oral hypoglycemic drugs; R44.3 Hallucinations, unspecified | CPT/HCPCS: 99212 ==

== ENCOUNTER 2025-06-23 10:00 | Outpatient (AMB) | payer MEDICARE, SELFPAY ==
--- NOTE | 2025-06-23 10:02 | A.OFFVIS_ITS ---
Vital Signs 06/23/25 10:03 Height 5 ft Weight 163 lb 2.273 oz BMI 31.9 BP 142/66 H Blood Pressure Location Rt brachial Position Sitting Pulse 59 Pulse Source Pulse Oximeter Pulse Oximetry (%) 97 Oxygen Delivery Method Room Air Intake Visit Reasons: T2DM Intake Note: Patient presents today for a follow-up on Type 2 Diabetes Mellitus: Last Diabetic eye exam was on: DUE, patient needs to call to make an appt. Last Podiatry exam was on: Patient does not see a Occupational Health Nursing Director Most recent HbA1c: 8.4%, 05/28/2025 Random Glucose: 232 mg/dL Inventory Control Analyst Required: No Accompanied by: Significant Other Allergies sulfamethoxazole (From Bactrim) Allergy (Severe, Verified 06/15/25 03:51) Rash adhesive tape (ADHESIVE TAPE) Allergy (Intermediate, Verified 06/15/25 03:51) BLISTERS clonidine Allergy (Verified 06/15/25 03:51) makes pt hulusinate adhesive Adverse Reaction (Severe, Verified 06/15/25 03:51) BLISTERS gabapentin Adverse Reaction (Severe, Verified 06/15/25 03:51) hallucination hydromorphone (From Dilaudid) Adverse Reaction (Severe, Verified 06/15/25 03:51) Hallucinations morphine Adverse Reaction (Severe, Verified 06/15/25 03:51) hallucination glue Adverse Reaction (Severe, Uncoded 06/15/25 03:51) BLISTERS HPI Comments Details: 77 YO F with type 2 diabetes presenting for follow up Medical history: CAD s/p 2018, MARIBELL adenocarcinoma bony mets in remission, BCC, s/p TAVR 01/29 Initially diagnosed with diabetes >15 years ago Was initially started on treatment with metformin. She was started on insulin in 2021. Had pancreatitis 2021 Current regimen Metformin 1000mg twice daily (increased 750mg twice daily) Lantus -14 units daily Humalog 60- 124: No coverage 125-150: 4 units 151- 200: 6 units 201- 250: 8 units 251- 300: 10 units 301- 350: 12 units 351- 400: 14 units Per the CGM [place] 2- GMI 7.4%, target 67, high 33%, low 0%. Reviewed download and did have 3 lows 55-69 variable A1C today is 8.4% from 8.9% from 12/19/24 9.3% she is s/p TAVR, PPM with delayed wound healing Treats lows with OJ . Checks sugar after to ensure it is rising. Treats according to rule of 15's. Family history of T2DM in maternal Aunt Eye exam-reports utd Denies neuropathy not sees podiatry. Denies nephropathy, on SHAMA/ARB. Has HLD, on statin. Has CAD S/P CABG . Saw elementary educator last year ROS see HPI PHYSICAL EXAM: GENERAL: Alert and oriented x 3. NAD EYES: EOMI. Anicteric. HENT: Moist mucous membranes. No scleral icterus. No cervical lymphadenopathy. LUNGS: Clear to auscultation bilaterally. CARDIOVASCULAR: Regular rate and rhythm. No murmur. No JVD. ABDOMEN: Soft, non-tender +bs EXTREMITIES: No edema. Non-tender. SKIN: mild purulence at BCC left forearm with some surrounding erythema and warmth NEUROLOGIC: No focal neurological deficits. CN II-XII grossly intact PSYCHIATRIC: Cooperative. Appropriate mood and affect [facility] Medical History Depression with anxiety Hx of aortic valve stenosis Depression Diabetes mellitus with hyperglycemia, with long-term current use of insulin Swelling of knee joint, left Hx of sigmoidoscopy Metformin adverse reaction Adenocarcinoma of left lung (~2021) Aortic stenosis Atypical migraine Transient cerebral ischemia AVM (arteriovenous malformation) of colon Normocytic anemia Nonrheumatic mitral valve regurgitation Nonrheumatic aortic (valve) stenosis Obesity History of blood transfusion Barretts esophagus AAA (abdominal aortic aneurysm) (~2008) Bleeding hemorrhoids Anemia Arthritis On anticoagulant therapy (~10/2020) On beta ashleigh at home Pulmonary nodules Mixed dyslipidemia Vitamin B12 deficiency GIB (gastrointestinal bleeding) COPD (chronic obstructive pulmonary disease) Bilateral pulmonary embolism (~10/2020) Restless leg syndrome Irritable bowel syndrome with both constipation and diarrhea GERD without esophagitis CAD (coronary artery disease) Essential hypertension Surgical History S/P TAVR (transcatheter aortic valve replacement) History of lung biopsy (~2021) History of esophagogastroduodenoscopy (EGD) (~2020) History of hysterectomy History of colonoscopy (~2018) History of coronary artery bypass graft x 2 (~2017) History of total right knee replacement (TKR) (~2015) History of bilateral breast reduction surgery (~2010) S/P excision of lipoma (~2017) History of heart artery stent (~2007) Family History Father HTN (hypertension) Myocardial infarction Hyperlipidemia Abdominal aneurysm Mother HTN (hypertension) Myocardial infarction Hyperlipidemia Brother Alzheimer's disease Substance abuse Sister Rheumatoid arthritis Brother Rheumatoid arthritis Maternal Aunt Diabetes mellitus Lung cancer Maternal Uncle Diabetes mellitus Son No problems noted. Daughter No problems noted. 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 Sexual orientation: Straight/Heterosexual Cognitive needs: No Hearing needs: No Vision needs: Yes Physical Exam Vital Signs: Last Vital Signs Pulse 59 06/23/25 10:03 BP 142/66 H 06/23/25 10:03 Pulse Ox 97 06/23/25 10:03 Oxygen Delivery Method Room Air 06/23/25 10:03 BMI result Body Mass Index 31.9 Results Reviewed Results Reviewed: Laboratory Last Values Glucose (Clinic) 232 mg/dL (60-115) H 06/23/25 10:06 Assessment & Plan Assessment & Plan (1) Diabetes mellitus with hyperglycemia, with long-term current use of insulin: Code(s): E11.65 - Type 2 diabetes mellitus with hyperglycemia; Z79.4 - care home (current) use of insulin Category: Medical Qualifiers: Diabetes mellitus type: type 2 Qualified Code(s): E11.65 - Type 2 diabetes mellitus with hyperglycemia; Z79.4 - intermodal truck driver (current) use of insulin Plan Type 2 DM, uncontrolled Want to improve overall control but avoid hypoglycemia Increase lantus to 18 units. Increase acarbose to 50mg with dinner Slight decrease in sliding scale Treat hypoglycemia-rules of 15s Return in 3 months or sooner as needed Medications: New ymbahk-izudcouq-ndvkqke 10,000-32,000 -42,000 unit administer with meals and/or snacks 1 cap PO QID 360 caps 3RF acarbose 50 mg PO TID 90 tabs 3RF Changed From insulin glargine (Lantus Solostar U-100 Insulin) 14 units (0.14 mL) subcut DAILY 15 mL 5RF To Lantus Solostar U-100 Insulin (insulin glargine) 18 units (0.18 mL) subcut DAILY 15 mL 5RF NS From insulin lispro (Humalog Panda KwikPen (U-100)) 60- 124: No coverage 125-150: 4 units 151- 200: 6 units 201- 250: 8 units 251- 300: 10 units 301- 350: 12 units 351- 400: 14 units 1 sliding scale dose subcut TIDAC 15 mL 3RF MDD 42 units To insulin lispro (Humalog Panda KwikPen (U-100)) 60- 150: No coverage 151- 200: 4 units 201- 250: 6 units 251- 300: 8 units 301- 350: 10 units 351- 400: 12 units 1 sliding scale dose subcut TIDAC 15 mL 3RF MDD 36 units Discontinued acarbose with dinner Discontinued Reason: Change Referral Type 25 mg PO BEDTIME 90 tabs 3RF Coding Level of Care Code Est Pt Level 4 (88654) Diagnoses Type 2 diabetes mellitus with hyperglycemia, with long-term current use of insulin E11.65; Z79.4 Diabetes mellitus type: type 2
[2025-06-23 10:03] VITALS: BP 142/66; PULSE 59; O2SAT 97; BMI 31.9
[2025-06-23 10:10] LABS: Glucose, Whole Blood 232 mg/dL (60-115)
--- OUTSIDE RECORDS SUMMARY | 2025-06-23 12:07 | XMS_ITS | Clinical Summary ---
Author Organization [facility] Facility Address [address] [address] Care Team Providers Care Truck Despatcher Name Role Phone Elayne Waite MD Primary Care Provider [phone] Allergies Active Allergy Reactions Criticality Noted Date [...] Health Medicare [employer] Medicare Care Teams Truck Despatcher Relationship Specialty Start Date End Date Elayne Waite MD [address] [place] [address] PCP - General Internal Medicine 02/26/22
--- OUTSIDE RECORDS SUMMARY | 2025-06-23 12:07 | XMS_ITS | Clinical Summary ---
Author Organization [facility] Address [address] [place] [address] Care Team Providers Care Chief Lock Operator Name Role Phone Sary aWite MD Primary Care Provider Allergies Active Allergy [...] 137 mcg (0.1 %) nasal spray SMARTSI [place](s) Both Nares Twice Daily PRN 4 Active [...] patients) (1 - 1-dose 75+ series) 2022 Alcohol/Substance Use Screening 10/14/2024 Depression Screening and Follow-Up 10/14/2024 Health Care Proxy Review 10/14/2024 Social Drivers of Health Annual Screening 10/14/2024 COVID-19 Vaccine (3 - 2024- season) 2025 04/28/2022, 07/28/2021 Influenza Vaccine (#1) 2025 , 07/27/2020, 08/15/2019, Additional history exists DTaP,Tdap,and Td Vaccines (2 - Td or Tdap) 09/15/2028 09/15/2018 Pneumococcal Vaccine: 50+ Years Completed 07/27/2020, 09/18/2019, 05/29/2016 Zoster Vaccines Completed 10/08/2020, 06/15, 07/04/2020 Hepatitis B Vaccines Aged Out No long er eligible based on patient's age to complete this topic Insurance [facility] Care Teams Chief Lock Operator Relationship Specialty Start Date End Date Sary Waite MD [address] [place] [address] PCP - General Internal Medicine 11/18/24
== END 2025-06-23 10:32 | disposition home or self-care (01) ==
LOC: HO.ENCR 10:01
PROVIDERS: PCP Internal Medicine; Visit Provider Internal Medicine
DX: E11.65 Type 2 diabetes mellitus with hyperglycemia (principal); Z79.4 Long term (current) use of insulin

== ENCOUNTER → 2025-06-23 10:00 | Outpatient (BNVA) | payer MEDICARE, SELFPAY | PROVIDERS: PCP Internal Medicine; Visit Provider Internal Medicine | DX: E11.65 Type 2 diabetes mellitus with hyperglycemia (principal); Z79.4 Long term (current) use of insulin | CPT/HCPCS: 82947; 99212 ==

== ENCOUNTER 2025-09-15 08:58 | Outpatient (REF) | payer MEDICARE, SELFPAY ==
[2025-09-15 11:33] LABS: MANUAL DIFF FLAG NO
[2025-09-15 11:34] LABS: Hematocrit 29.5 % (37.0-47.0); Hemoglobin 9.8 g/dl (12.0-16.0); Imm Gran Abs Auto 0.02 X10*3/uL (0.00-0.03); Imm Gran Pct Auto 0.3 % (0.0-0.4); Lymphocytes Absolute Auto 1.4 X10*3/uL (1.2-4.9); Mean Corpuscular HGB Conc 33.2 g/dl (31.0-35.0); Mean Corpuscular Hemoglobin 31.7 pg (27.0-33.0); Mean Corpuscular Volume 95.5 fL (80.0-98.0); NRBC Abs Auto 0.000 X10*3/uL (0.0-0.012); NRBC Pct Auto 0.0 /100WBC (0.0-0.2); Platelet Count 180 X10*3/uL (160-400); Red Blood Count 3.09 X10*6/uL (4.20-5.50); White Blood Count 6.0 X10*3/uL (4.8-10.8)
[2025-09-15 12:12] LABS: Alanine Aminotransferase 19 U/L (0-31); Albumin Level 4.2 g/dL (3.5-5.0); Alkaline Phosphatase 54 U/L (39-117); Anion Gap 15 (12-20); Aspartate Amino Transferase 23 U/L (5-31); Blood Urea Nitrogen 23 mg/dL (9-16); Calcium 9.3 mg/dL (8.4-10.2); Carbon Dioxide 22 mmol/L (22-29); Chloride 110 mmol/L (96-108); Estimated Glomerular Filt Rate > 60; Potassium 4.7 mmol/L (3.3-5.1); Sodium 142 mmol/L (135-145); Total Protein 7.2 g/dL (6.5-8.0)
[2025-09-15 12:26] LABS: Carcinoembryonic Antigen 3.10 ng/mL
[2025-09-15 14:41] LABS: Alanine Aminotransferase 23 U/L (0-31); Anion Gap 14 (12-20); Aspartate Amino Transferase 26 U/L (5-31); Blood Urea Nitrogen 24 mg/dL (9-16); Calcium 9.4 mg/dL (8.4-10.2); Carbon Dioxide 22 mmol/L (22-29); Chloride 111 mmol/L (96-108); Cholesterol 136 mg/dL (<200); Estimated Glomerular Filt Rate 56; HDL Cholesterol 48 mg/dL (>40); Potassium 4.5 mmol/L (3.3-5.1); Sodium 142 mmol/L (135-145); Triglycerides 158 mg/dL (<150)
[2025-09-15 14:42] LABS: Microalbum/Creatinine Ratio Ur 34.6 ug/mg cr (<30)
== END 2025-09-15 08:59 | disposition home or self-care (01) ==
LOC: HO.HMGCLDS 08:58
PROVIDERS: Internal Medicine; PCP Internal Medicine; Visit Provider Internal Medicine
DX: G47.00 Insomnia, unspecified (principal); C34.92 Malignant neoplasm of unspecified part of left bronchus or lung; E11.65 Type 2 diabetes mellitus with hyperglycemia; I10 Essential (primary) hypertension; E78.2 Mixed hyperlipidemia; D64.9 Anemia, unspecified; Z79.4 Long term (current) use of insulin; Z79.899 Other long term (current) drug therapy; H81.10 Benign paroxysmal vertigo, unspecified ear; I25.810 Atherosclerosis of coronary artery bypass graft(s) without angina pectoris; I71.40 Abdominal aortic aneurysm, without rupture, unspecified; K21.9 Gastro-esophageal reflux disease without esophagitis; G25.81 Restless legs syndrome; Z95.2 Presence of prosthetic heart valve
CPT/HCPCS: 36415; 80048; 80053; 80061; 82043; 82306; 82378; 82570; 83036; 84450; 84460; 85025; 99212

== ENCOUNTER 2025-09-15 08:58 | Outpatient (AMB) | payer MEDICARE, SELFPAY ==
--- NOTE | 2025-09-15 09:05 | MHC.PC.OV ---
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: No Allergies sulfamethoxazole (From Bactrim) Allergy (Severe, Verified 09/15/25 09:27) Rash adhesive tape (ADHESIVE TAPE) Allergy (Intermediate, Verified 09/15/25 09:27) BLISTERS clonidine Allergy (Verified 09/15/25 09:27) makes pt hulusinate adhesive Adverse Reaction (Severe, Verified 09/15/25 09:27) BLISTERS gabapentin Adverse Reaction (Severe, Verified 09/15/25 09:27) hallucination hydromorphone (From Dilaudid) Adverse Reaction (Severe, Verified 09/15/25 09:27) Hallucinations morphine Adverse Reaction (Severe, Verified 09/15/25 09:27) hallucination glue Adverse Reaction (Severe, Uncoded 09/15/25 09:27) BLISTERS Medication List - Last Reconciled 09/15/25 by Sary Waite MD acarbose 50 mg PO TID acetaminophen 500 mg PO BID 3 months atorvastatin 80 mg PO BEDTIME cholecalciferol (vitamin D3) 50 mcg PO DAILY clotrimazole 2% 1 appful vaginal BEDTIME PRN diltiazem HCl CD (Cartia XT) 240 mg PO DAILY Donut pillow As directed Eliquis (apixaban) 5 mg PO Q12H NS ferrous fumarate 325 mg PO DAILY flash glucose scanning reader (FreeStyle [place] 2 [place]) As directed flash glucose sensor (FreeStyle [place] 2 Sensor kit) check glucose twice a day as directed folic acid 1 mg PO DAILY 90 days FreeStyle [place] 2 Plus Sensor (blood-glucose sensor) every 15 days NS FreeStyle [place] 3 Plus Sensor (blood-glucose sensor) every 15 days NS FreeStyle [place] 3 [place] (blood-glucose,commodity management specialist,cont) continuous NS insulin lispro (Humalog Panda KwikPen (U-100)) 1 sliding scale dose subcut TIDAC MDD 36 units isosorbide mononitrate ER 30 mg PO DAILY Lantus Solostar U-100 Insulin (insulin glargine) 18 units (0.18 mL) subcut DAILY NS onzqbw-gsxhdask-oktkfla (pork) 10,000-32,000 -42,000 unit (Zenpep) 1 cap PO QID 30 days lisinopril 2.5 mg PO DAILY metformin 1,000 mg PO BID metoprolol succinate ER 50 mg See Protocol PO DAILY 30 days olanzapine 2.5 mg PO BEDTIME PRN 14 days omeprazole 40 mg PO DAILY@0630 OneTouch Delica Plus Lancet (lancets) test blood sugar TID NS OneTouch Ultra Test (blood sugar diagnostic) test blood sugar TID NS OneTouch Ultra2 Meter (blood-glucose meter) test blood sugar TID NS oxycodone 5 mg PO Q8H PRN pen needle, diabetic (BD Ultra-Fine Original Pen Needle) Use to inject insulin once a day pen needle, diabetic (CareTouch Pen Needle) 4 daily subcutaneous for insulin administration pen needle, diabetic Use three times daily for BD olga 2nd gen sertraline 100 mg PO DAILY Tobacco use date assessed: 09/15/25 Fall risk assessment: No Falls in past year Last assessed Fall Risk: 09/15/25 Dental Screening Dental Screen Date: 09/15/25 Did you have a dental visit in the last 12 months?: No Did you have a dental problem in the last 6 months where you did not have access to dental care?: No Was dental information given to patient?: Patient declined [facility] Medical History (Updated 09/15/25 @ 09:41 by Sary Waite MD) Depression with anxiety Hx of aortic valve stenosis Depression Diabetes mellitus with hyperglycemia, with long-term current use of insulin Swelling of knee joint, left Hx of sigmoidoscopy Metformin adverse reaction Adenocarcinoma of left lung (~2021) Aortic stenosis Atypical migraine Transient cerebral ischemia AVM (arteriovenous malformation) of colon Normocytic anemia Nonrheumatic mitral valve regurgitation Nonrheumatic aortic (valve) stenosis Obesity History of blood transfusion Barretts esophagus AAA (abdominal aortic aneurysm) (~2008) Bleeding hemorrhoids Anemia Arthritis On anticoagulant therapy (~10/2020) On beta ashleigh at home Pulmonary nodules Mixed dyslipidemia Vitamin B12 deficiency GIB (gastrointestinal bleeding) COPD (chronic obstructive pulmonary disease) Bilateral pulmonary embolism (~10/2020) Restless leg syndrome Irritable bowel syndrome with both constipation and diarrhea GERD without esophagitis CAD (coronary artery disease) Essential hypertension Surgical History S/P TAVR (transcatheter aortic valve replacement) History of lung biopsy (~2021) History of esophagogastroduodenoscopy (EGD) (~2020) History of hysterectomy History of colonoscopy (~2018) History of coronary artery bypass graft x 2 (~2017) History of total right knee replacement (TKR) (~2015) History of bilateral breast reduction surgery (~2010) S/P excision of lipoma (~2017) History of heart artery stent (~2007) Family History Father HTN (hypertension) Myocardial infarction Hyperlipidemia Abdominal aneurysm Mother HTN (hypertension) Myocardial infarction Hyperlipidemia Brother Alzheimer's disease Substance abuse Sister Rheumatoid arthritis Brother Rheumatoid arthritis Maternal Aunt Diabetes mellitus Lung cancer Maternal Uncle Diabetes mellitus Son No problems noted. Daughter No problems noted. 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/ [employer] Sexual orientation: Straight/Heterosexual Cognitive needs: No Hearing needs: No Vision needs: Yes Questionnaire Thrive Questionnaire Date Thrive assessed: 10/29/24 I am a: Patient What is your living situation today?: I have a steady place to live Within the past 12 months, did the food you bought not last and you didn't have the money to get more?: Never true Within the past 12 months, did you worry whether your food would run out before you got money to buy more?: Never true Do you have trouble paying for medicines?: No Do you have trouble getting transportation to medical appointments?: No Do you have trouble paying your heating and electricity bill?: No Do you have trouble taking care of your child, family member or friend?: No Do you have trouble with day-to-day activities such as bathing, preparing meals, shopping, managing finances, etc.?: Yes Are you currently unemployed and looking for a job?: No Are you interested in more education?: No Please select the resources that you would like help with: None Currently or been in a relationship where the following occur: No concerns reported THRIVE Score: 0 BO-7 AMB Questionnaire BO-7 Date BO - 7 assessed: 05/09/25 Source: Developed by Drs. Alexey Arreaga, Yokasta Paulino, Pieter Oro and colleagues, with an educational jose j from [employer]. Physical exam (Primary Care) Vital Signs: Last Vital Signs Temp 98.5 F 09/15/25 09:16 Pulse 59 09/15/25 09:16 Resp 16 09/15/25 09:16 BP 130/60 09/15/25 09:16 Pulse Ox 96 09/15/25 09:16 Oxygen Delivery Method Room Air 09/15/25 09:16 BMI result Body Mass Index 33.2 Tobacco/Smoking Status: Tobacco use Status Tobacco use date assessed 09/15/25 09/15/25 09:08 Patient Tobacco Use Status Never used Tobacco 09/15/25 09:07 Tobacco use type Cigarette 09/15/25 09:07 e-Cigarette/Vaping Use Never Used 09/15/25 09:07 Thrive Assessment: Date of Thrive Assessment Date Thrive assessed 10/29/24 09/15/25 09:07 Currently or been in a relationship where the following occur: No concerns reported Results AMB Hemoglobin A1c AMB Hemoglobin A1c 7.8 % Last Edit by Rashmi Vigil CMA on 09/15/25 09:52 Coding Diagnoses Essential hypertension I10 Mixed dyslipidemia E78.2 Type 2 diabetes mellitus with hyperglycemia, with long-term current use of insulin E11.65; Z79.4 Diabetes mellitus type: type 2 Normocytic anemia D64.9 Assessment & Plan Assessment & Plan (1) Essential hypertension: Code(s): I10 - Essential (primary) hypertension Category: Medical (2) Mixed dyslipidemia: Code(s): E78.2 - Mixed hyperlipidemia Category: Medical (3) Diabetes mellitus with hyperglycemia, with long-term current use of insulin: Code(s): E11.65 - Type 2 diabetes mellitus with hyperglycemia; Z79.4 - terminal operations supervisor (current) use of insulin Category: Medical Qualifiers: Diabetes mellitus type: type 2 Qualified Code(s): E11.65 - Type 2 diabetes mellitus with hyperglycemia; Z79.4 - terminal operations supervisor (current) use of insulin (4) Normocytic anemia: Code(s): D64.9 - Anemia, unspecified Category: Medical Orders: Orders Basic Metabolic Panel Fasting Today D64.9 - Anemia, unspecified, E11.65 - Type 2 diabetes mellitus with hyperglycemia, E78.2 - Mixed hyperlipidemia, G25.81 - Restless legs syndrome, H81.10 - Benign paroxysmal vertigo, unspecified ear, I10 - Essential (primary) hypertension, I25.810 - Atherosclerosis of coronary artery bypass graft(s) without angina pectoris, I71.4 - Abdominal aortic aneurysm, without rupture, K21.9 - Gastro-esophageal reflux disease without esophagitis, Z79.4 - halfway (current) use of insulin, Z95.2 - Presence of prosthetic heart valve Microalbumin, Random (w Creat) Today D64.9 - Anemia, unspecified, E11.65 - Type 2 diabetes mellitus with hyperglycemia, E78.2 - Mixed hyperlipidemia, G25.81 - Restless legs syndrome, H81.10 - Benign paroxysmal vertigo, unspecified ear, I10 - Essential (primary) hypertension, I25.810 - Atherosclerosis of coronary artery bypass graft(s) without angina pectoris, I71.4 - Abdominal aortic aneurysm, without rupture, K21.9 - Gastro-esophageal reflux disease without esophagitis, Z79.4 - terminal operations supervisor (current) use of insulin, Z95.2 - Presence of prosthetic heart valve AMB Hemoglobin A1c Today Z13.9 - Encounter for screening, unspecified Complete Blood Count Auto Diff Today D64.9 - Anemia, unspecified, E11.65 - Type 2 diabetes mellitus with hyperglycemia, E78.2 - Mixed hyperlipidemia, G25.81 - Restless legs syndrome, H81.10 - Benign paroxysmal vertigo, unspecified ear, I10 - Essential (primary) hypertension, I25.810 - Atherosclerosis of coronary artery bypass graft(s) without angina pectoris, I71.4 - Abdominal aortic aneurysm, without rupture, K21.9 - Gastro-esophageal reflux disease without esophagitis, Z79.4 - terminal operations supervisor (current) use of insulin, Z95.2 - Presence of prosthetic heart valve Aspartate Amino Transferase Today D64.9 - Anemia, unspecified, E11.65 - Type 2 diabetes mellitus with hyperglycemia, E78.2 - Mixed hyperlipidemia, G25.81 - Restless legs syndrome, H81.10 - Benign paroxysmal vertigo, unspecified ear, I10 - Essential (primary) hypertension, I25.810 - Atherosclerosis of coronary artery bypass graft(s) without angina pectoris, I71.4 - Abdominal aortic aneurysm, without rupture, K21.9 - Gastro-esophageal reflux disease without esophagitis, Z79.4 - halfway (current) use of insulin, Z95.2 - Presence of prosthetic heart valve Alanine Aminotransferase Today D64.9 - Anemia, unspecified, E11.65 - Type 2 diabetes mellitus with hyperglycemia, E78.2 - Mixed hyperlipidemia, G25.81 - Restless legs syndrome, H81.10 - Benign paroxysmal vertigo, unspecified ear, I10 - Essential (primary) hypertension, I25.810 - Atherosclerosis of coronary artery bypass graft(s) without angina pectoris, I71.4 - Abdominal aortic aneurysm, without rupture, K21.9 - Gastro-esophageal reflux disease without esophagitis, Z79.4 - halfway (current) use of insulin, Z95.2 - Presence of prosthetic heart valve Lipid Panel Today D64.9 - Anemia, unspecified, E11.65 - Type 2 diabetes mellitus with hyperglycemia, E78.2 - Mixed hyperlipidemia, G25.81 - Restless legs syndrome, H81.10 - Benign paroxysmal vertigo, unspecified ear, I10 - Essential (primary) hypertension, I25.810 - Atherosclerosis of coronary artery bypass graft(s) without angina pectoris, I71.4 - Abdominal aortic aneurysm, without rupture, K21.9 - Gastro-esophageal reflux disease without esophagitis, Z79.4 - halfway (current) use of insulin, Z95.2 - Presence of prosthetic heart valve Vitamin D 25-OH Total Today D64.9 - Anemia, unspecified, E11.65 - Type 2 diabetes mellitus with hyperglycemia, E78.2 - Mixed hyperlipidemia, G25.81 - Restless legs syndrome, H81.10 - Benign paroxysmal vertigo, unspecified ear, I10 - Essential (primary) hypertension, I25.810 - Atherosclerosis of coronary artery bypass graft(s) without angina pectoris, I71.4 - Abdominal aortic aneurysm, without rupture, K21.9 - Gastro-esophageal reflux disease without esophagitis, Z79.4 - terminal operations supervisor (current) use of insulin, Z95.2 - Presence of prosthetic heart valve Medications: New trazodone 50 mg PO BEDTIME PRN 90 tabs 0RF insomnia/anxiety
[2025-09-15 09:16] VITALS: BP 130/60; PULSE 59; RESP 16; TEMP 36.9; O2SAT 96; BMI 33.2
--- OUTSIDE RECORDS SUMMARY | 2025-09-15 09:30 | XMS_ITS | Clinical Summary ---
Author Organization Patient Business Ser [facility] Address [address] [place] [address] Care Team Providers Care Operations Coordinator Name Role Phone Sary Waite MD Primary Care Provider [phone] Allergies Active Allergy Reactions Criticality Noted Date [...] capsuleIndicatio ns:Essential hypertension,Cor onary artery disease involving campo coronary artery of campo heart without angina pectoris Take 1 capsule (240 mg total) by mouth 1 (one) time each day. 90 each 3 5 02/18/20 26 Active metoprolol succinate (TOPROL-XL) 50 mg 24 hr tabletIndication s:Essential hypertension,Cor onary artery disease involving campo coronary artery of campo heart without angina pectoris Take 1 tablet [...] time each day after dinner. 5 Active OLANZapine (ZyPREXA) 2.5 mg tablet Take 1 tablet (2.5 mg total) by mouth at bedtime. Active Active Problems Problem Noted Date Diagnosed [...] and anemia requiring transfusion Assessment & Plan (07/20/2025 3:02 PM EDT): Site is healed and she has no residual site symptoms. Device functioning well with no significant arrhythmias. Continue to monitor through [facility] device clinic. Assessment & Plan (04/12/2025 3:07 PM EDT): Patient reports pain in her chest wall following chest compressions. I have provided her with a two weeks script for oxycodone for the pain due to CPR. Follow up with Dr. Tenorio next week. Continue to monitor through [facility] a device clinic. Assessment & Plan (02/17/2025 [...] CAD (coronary artery disease) 02/15/2025 Overview (02/17/2025): 2005 angiogram with multivessel stenting 2007 repeat angiogram and stenting of left circumflex artery in 2007. June 2018 she presented with chest pain to [facility] and urgent angiogram showed multivessel disease status post two vessel CABG with DURHAM to LAD and SVG to OM1; complicated by difficult vein harvesting with subsequent leg wounds 2021 - preTAVR angiogram showing progressive disease with new LOG TUMBLER of dominant RCA Assessment & Plan (07/20/2025 3:02 PM EDT): Catheterization from 2021 showed patent grafts with known LOG TUMBLER of RCA. Echocardiogram from November 2024 showed systolic function is normal with an ejection fraction of 60-65% with basal to mid segments of the inferior wall appearing to be hypokinetic. No anginal symptoms. Continue with aspirin, apixaban, atorvastatin, metoprolol, diltiazem, isosorbide and lisinopril. We discussed risk reduction through lifestyle choices including healthy diet, routine exercise and weight management. Assessment & Plan (04/12/2025 3:07 PM EDT): Catheterization from 2021 showed patent grafts with known LOG TUMBLER of RCA. Echocardiogram from November 2024 showed [...] from 2021 showed patent grafts with known LOG TUMBLER of RCA. Echocardiogram from November 2024 showed [...] not crush or chew. Complete heart block (CMS/[facility] V24, CMS/[facility] V28) 02/15/2025 Assessment & Plan (03/26/2025 3:24 PM EDT): Chest pain 02/08/2023 COPD (chronic obstructive pu lmonary disease) (CMS/[facility] V24, CMS/[facility] V28) 01/26/2022 Mixed hyperlipidemia 01/26/2022 Assessment & Plan (07/20/2025 3:02 PM EDT): Continue with atorvastatin. Assessment & Plan (04/12/2025 3:07 PM EDT): Continue with atorvastatin. Orders: ECG 12 lead Assessment & Plan (02/17/2025 11:53 AM EDT): Continue with atorvastatin. Obesity 01/26/2022 Type 2 diabetes mellitus wit hout complications (CMS/HCC V24, CMS/HCC V28) 01/26/2022 Overview (11/16/2024): w/o long-term current use of insulin Pain of right lower extremity 09/29/2021 Abdominal aortic aneurysm (A AA) without rupture ([facility] V24) 03/14/2021 Primary hypertension 03/14/2021 Assessment & Plan (07/20/2025 3:02 PM EDT): Controlled. Continue with metoprolol, isosorbide, diltiazem, lisinopril. Assessment & Plan (04/12/2025 3:07 PM EDT): [...] pulmonar y embolism without acute cor pulmonale ([facility] V24, [facility] V28) 03/14/2021 S/P TAVR (transcatheter aortic valve replacement ) 03/14/2021 Overview (04/12/2025): January 28, 2025 successful transfemoral transcatheter aortic valve replacement utilizing a Medtronic evolute 29 mm valve via the femoral approach by Dr. Humphries at [facility]; procedure complicated by complete heart block [...] on 04/08/2025 3:13 PM Assessment & Plan (07/20/2025 3:02 PM EDT): Successful TAVR using 29mm Evolute [...] but she has dentures. Continue with aspirin. Assessment & Plan (04/12/2025 3:07 PM EDT): [...] STENOSIS WRITTEN ON 12/21/2024 1:59 PM BY JANIYA HUMPHRIES MD Dot has evidence of progressive [...] Date Cardiac arrest ([facility] V24, [facility] V28) 04/07/2025 04/09/2025 Infection of pacemaker pocket ([facility] V24) 02/25/2025 04/09/2025 Encounters Date Type Department Care Team Description 08/31/2025 8:45 AM EST Ancillary Procedure [facility] [address] [place] [address] 08/29/2025 7:20 PM EST Ancillary Procedure [facility] [address] [place] [address] 08/27/2025 10:00 AM EST Ancillary Procedure [facility] [address] [place] [address] Encounter for adjustment or management of cardiac device 07/20/2025 1:10 PM EDT Office Visit [facility] [address] [place] [address] Armando Bentley NP S/P TAVR (transcatheter aortic valve replacement) (Primary Dx); Coronary artery disease involving campo coronary artery of campo heart without angina pectoris; Pacemaker; Primary hypertension; Mixed hyperlipidemia 06/16/2025 1:26 PM EDT - 06/16/2025 11:59 PM EDT Hospital Encounter [facility] PET Scan [address] [place] [id number] Malignant neoplasm of unspecified part of left bronchus or lung ([facility] V24, [facility] V28); Malignant neoplasm of upper lobe, left bronchus or lung ([facility] V24, [facility] V28) Discharge Disposition: Home or Self Care from Last 3 Months Surgical History Surgery [...] EXCISION(LIPOMA) OTHER SURGICAL HISTORY TAVR DONE AT [facility] [place] [place] ON 01/28/25 w/KM. INDICATIONS: Aortic stenosis ABLATION DONE AT [facility] [place] [place] ON 01/29/25 w/SR. INDICATIONS: Complete Heart Block with Non Reversible, Symptomatic Bradycardia Medical History Medical History Date Comments Anemia DX:Anemia Arthritis DX:Arthritis Atypical migraine DX:Atypical mi graine AVM (arteriovenous malformation) of colon DX:AVM (arteriovenous malformation) of colon Barretts esophagus DX:Barretts e sophagus Bleeding hemorrhoids DX:Bleeding hemorrhoids COPD (chronic obstructive pu lmonary disease) ([facility] V24, [facility] V28) DX:COPD (chronic o bstructive pulmonary disease) ([facility]) Depression DX:Depression GERD (gastroesophageal reflux disease) DX:GERD (gastroesophageal reflux disease) GIB (gastrointestinal bleeding) DX:GIB (gastrointestinal bleeding) History of blood transfusion DX: History of blood transfusion IBS (irritable bowel syndrome) D X:IBS (irritable bowel syndrome); COMMENT: w/ both constipation and diarrhea Major depression in full rem ission ([facility] V24) DX:Major depression in full remission ([facility]) Obesity DX:Obesity Restless leg syndrome DX:Restles s leg syndrome Transient cerebral ischemia DX:T ransient cerebral ischemia Type 2 diabetes mellitus wit hout complications ([facility] V24, [facility] V28) DX:Type 2 bo betes mellitus without complications ([facility]); COMMENT: w/o exterminator current use of insulin Adenocarcinoma of left lung ([facility] V24, [facility] V28) DX:Adenocarcinoma of left marce ng ([facility]) Anxiety and depression Hypertension Hyperlipidemia H/O: lung [...] your loved ones. For example, child care center administrator or elderly care for an older adult? [...] Date Recorded What is your living situation? Unrecognized valu e 04/08/2025 Interpersonal Safety Answer Date Record ed Physical Abuse Unrecognized value 04/08/2025 Verbal Abuse Unrecognized value 04/08/2025 Comments No Sex and Gender Information Value Date Recorded Sex Assigned at Female 02/18/2023 11:05 PM EDT Legal Sex Female 6:06 PM EST Gender Identity Female 02/18/2023 11:05 PM EDT Sexual Orientation Straight 02/18/2023 11 :05 PM EDT Obstetrics History Last Filed Vital Signs Vital Sign Reading Time Taken Comments Blood Pressure 130/54 07/20/2025 1:04 PM EDT Pulse 57 07/20/2025 1:04 PM EDT Temperature 36.1 C (96.9 F) 04/09/2025 10:50 AM EDT Respiratory Rate 18 04/09/2025 10:5 0 AM EDT Oxygen Saturation 98% 07/20/2025 1:04 PM EDT Inhaled Oxygen Concentration - - Weight 75.7 kg (166 lb 14.4 oz) 07/20/2025 1:04 PM EDT Height 152.4 cm (5') 07/20/2025 1:04 PM EDT Body Mass Index 32.6 07/20/2025 1:04 PM EDT Plan of Treatment Upcoming Encounters Date Type Department Care Team (Late st Contact Info) Description 02/25/2026 1:00 PM EDT Ancillary Procedure [facility] [address] [facility] [address] [place] [address] Health Maintenance Due Date Last Done Comments Diabetes: Annual Foot Exam 1955 Diabetes: Annual Retina Eye Exam 1955 Cholesterol Screening (Lipid Panel) 09/15/2022 Hepatitis C Screening 09/15/2022 Medicare Annual Wellness Visit 09/15/2022 Osteoporosis Screening (Bone Density Screening) 09/15/2022 Depression Screening 10/14/2024 Diabetes: Annual Urine Albumin-Creatinine Ratio (uACR) 11/12/2024 03/01/2022 Diabetes: Blood Sugar Control Test (HGBA1C) 11/12/2024 COVID-19 Vaccine (4 - Pfizer risk season) 2026 07/28/2025, 04/28/2022, 07/28/2021 Falls Risk Assessment 04/07/2026 04/07/2025 Social Influencers of Health Screening 04/08/2026 04/08/2025 Diabetes: Annual GFR (Glomerular Filtration Rate) 04/09/2026 04/09/2025, 04/07/2025 Hypertension/CHF/CAD Annual BMP Blood Test 04/09/2026 04/09/2025, 04/07/2025 DTaP,Tdap,and Td Vaccines (2 - Td or Tdap) 09/15/2028 09/15/2018 Pneumococcal Vaccine: 50+ Years Completed 07/27/2020, 09/18/2019, 05/29/2016 Zoster Vaccines Completed 10/08/2020, 07/04/2020 Influenza Vaccine Completed 07/28/2025, , 07/27/2020, Additional history exists RSV Immunization Adult Patients Completed 07/28/2025 HIB Vaccines Aged Out No longer eligi [...] this topic Medical Devices Implanted Type Area Factory Assembler Device Identifier Shelf Expiration Date Model / Serial / Lot Medt-Card Eloisa Xt Dr Monroy [id number] Implanted:2024 (Quantity not on file) Cardiac Pacemaker [employer] - CARDIAC RHYTH-CRDM ELOISA XT DR MRI [id number] / [id number] / Medt-Card Eloisa Xt Dr Mri [id number] Implanted:2024 (Quantity not on file) Cardiac Pacemaker [employer] - CARDIAC RHYTH-CRDM ELOISA XT DR MONROY / [id number] / Pacemaker Leadless 19.5f 38mm Rv - [id number] - [id number] Implanted:Qty: 1 on 04/07/2025 by Devyn Tenorio MD at [facility] Cardiac Pacemaker Left: Chest Wall [facility] [id number] 02/17/2027 [id number] / [id number] / Pacemaker Leadless 19.5f 32.2mm Ra - [id number] - [id number] Implanted:Qty: 1 on 04/07/2025 by Devyn Tenorio MD at [facility] Cardiac Pacemaker Left: Chest Wall [facility] [id number] 03/01/2027 [id number] / [id number] / Abbt-Stju Aveir Lp [id number] Implanted:2024 (Quantity not on file) Cardiac Pacemaker [facility] [employer] [id number] / [id number] / Absorber Antibacterial Med Envelope Tyrx - [id number] - [id number] Implanted:Qty: 1 on 03/03/2025 by Devyn Tenorio MD at [facility] Other Cardiac Implant Left: Chest [employer] - CARDIAC RHYTH-CRDM [id number] 09/09/2025 [id number] / [id number] / [id number] Procedures Procedure Name Priority Date/Time Associated Diagnosis Comments CARDIAC DEVICE CHECK- REMOTE- MURJ Routine 08/31/2025 8:44 AM EST CARDIAC DEVICE CHECK- IN CLINIC- MURJ Routine 08/27/2025 1:01 PM EST Encounter for adjustment or management of cardiac device PET CT SKULL TO MID THIGH SUBSEQUENT Routine 06/16/2025 3:36 PM EDT Malignant neoplasm of unspecified part of left bronchus or lung (CMS/HCC V24, CMS/HCC V28) Malignant neoplasm of upper lobe, left bronchus or lung (CMS/HCC V24, CMS/HCC V28) BASIC METABOLIC PANEL Routine 04/09/2025 5:53 AM EDT from Last 3 Months or Most Recently Relevant to Health Maintenance Results * Cardiac device check - Remote- MURJ (08/31/2025 8:44 AM EST) Date Time Interrogation Session [id number] CV DEVICE CHECK Type Interrogation Session Remote CV DEVICE CHECK Implantable Pulse Generator Factory Assembler [employer] CV DEVICE CHECK Implantable Pulse Generator Type IPG CV DEVICE CHECK Implantable Pulse Generator Model Aveir LP [id number] CV DEVICE CHECK Implantable Pulse Generator Serial Number [id number] CV DEVICE CHECK Implantable Pulse Generator Implant Date 20250407 CV DEVICE CHECK Battery Remaining Longevity 110.0 CV DEVICE CHECK Battery Voltage 3.000 CV D EVICE CHECK Battery LAUNDRY MACHINE TENDER Trigger 2.710 CV DEVICE CHECK Battery Status Beginning of Service CV DEVICE CHECK Luis Statistic RA Percent Paced 50.00 CV DEVICE CHECK Luis Statistic RV Percent Paced 93.00 CV DEVICE CHECK Lead Channel Setting Sensing Sensitivity 1.00 CV DEVICE CHECK Lead Channel Setting Pacing Amplitude 1.250 CV DEVICE CHECK Lead Channel Setting Pacing Pulse Width 0.3 CV DEVICE CHECK Lead Channel Setting Sensing Sensitivity 2.00 CV DEVICE CHECK Lead Channel Setting Pacing Amplitude 1.250 CV DEVICE CHECK Lead Channel Setting Pacing Pulse Width 0.3 CV DEVICE CHECK Luis Setting Mode (NBG Code) DDD CV DEVICE CHECK Luis Setting Lower Rate Limit 60 CV DEVICE CHECK Luis Setting AT Mode Switch Rate 180 CV DEVICE CHECK Luis Setting Maximum Tracking Rate 125 CV DEVICE CHECK Luis Setting Maximum Sensor Rate 130 CV DEVICE CHECK Luis Setting PAV Delay 200 CV DEVICE CHECK Luis Setting RAJ Delay 180 CV DEVICE CHECK Date of Service 2025-11-16 CV DEVICE CHECK Anatomical Region Laterality Modality Device Interroga tion 08/27/2025 11:1 6 AM EST Impressions 08/29/2025 6:09 PM EST Initial Home Monitor Setup * Device interrogation for initial monitor setup * Battery: CIARAN, 9.17 yrs * Programmed parameters reviewed * Presenting rhythm reviewed * Heart Rate Histograms reviewed Narrative Procedure Note Devyn Tenorio MD - 08/31/2025 IMPRESSION: Initial Home Monitor Setup * Device interrogation for initial monitor setup * Battery: CIARAN, 9.17 yrs * Programmed parameters reviewed * Presenting rhythm reviewed * Heart Rate Histograms reviewed Devyn Tenorio MD CV IMPLANTABLE CARDIAC DEV ICE PROCEDURES Final Result * CARDIAC DEVICE CHECK- [facility] (08/27/2025 1:01 PM EST) Date Time Interrogation Session [id number] CV DEVICE CHECK Implantable Pulse Generator Factory Assembler [employer] CV DEVICE CHECK Implantable Pulse Generator Type IPG CV DEVICE CHECK Implantable Pulse Generator Model Aveir LP [id number] CV DEVICE CHECK Implantable Pulse Generator Serial Number [id number] CV DEVICE CHECK Implantable Pulse Generator Implant Date 20250407 CV DEVICE CHECK Battery Status Beginning of Service CV DEVICE CHECK Luis Statistic RA Percent Paced 53.00 CV DEVICE CHECK Luis Statistic RV Percent Paced 94.00 CV DEVICE CHECK Lead Channel Sensing Intrinsic Amplitude 4.000 CV DEVICE CHECK Lead Channel Setting Sensing Sensitivity 1.00 CV DEVICE CHECK Lead Channel Impedance Value 310 CV DEVICE CHECK Lead Channel Pacing Threshold Amplitude 0.500 CV DEVICE CHECK Lead Channel Pacing Threshold Pulse Width 0.4 CV DEVICE CHECK Lead Channel Setting Pacing Amplitude 1.250 CV DEVICE CHECK Lead Channel Setting Pacing Pulse Width 0.3 CV DEVICE CHECK Lead Channel Sensing Intrinsic Amplitude 11.400 CV DEVICE CHECK Lead Channel Setting Sensing Sensitivity 2.00 CV DEVICE CHECK Lead Channel Impedance Value 450 CV DEVICE CHECK Lead Channel Pacing Threshold Amplitude 0.500 CV DEVICE CHECK Lead Channel Pacing Threshold Pulse Width 0.4 CV DEVICE CHECK Lead Channel Setting Pacing Amplitude 1.250 CV DEVICE CHECK Lead Channel Setting Pacing Pulse Width 0.3 CV DEVICE CHECK Luis Setting Mode (NBG Code) DDD CV DEVICE CHECK Luis Setting Lower Rate Limit 60 CV DEVICE CHECK Luis Setting AT Mode Switch Rate 180 CV DEVICE CHECK Luis Setting Maximum Tracking Rate 125 CV DEVICE CHECK Luis Setting Maximum Sensor Rate 130 CV DEVICE CHECK Luis Setting PAV Delay 200 CV DEVICE CHECK Luis Setting RAJ Delay 180 CV DEVICE CHECK Date of Service 2025-09-13 CV DEVICE CHECK Anatomical Region Laterality Modality Device Interroga tion 08/27/2025 Impressions 08/29/2025 6:09 PM EST Normal In-Office: No Events * Device Check on Dual Aveir Leadless Pacemaker done by Haylie Johnson with [employer] * Normal Device Function * Alerts or events: None * Battery: CIARAN, 12.6 years * Sensing, impedance and thresholds reviewed and tested * Presenting Rhythm: -ADJUNCT PROFESSOR OF VOICE 60s * Underlying Rhythm: CHB VS 30s * Heart Rate Histograms reviewed * Pacing and Detection Parameters were evaluated Narrative Procedure Note Devyn Tenorio MD - 08/30/2025 IMPRESSION: Normal In-Office: No Events * Device Check on Dual Aveir Leadless Pacemaker done by Haylie Johnsonwith [employer] * Normal Device Function * Alerts or events: None * Battery: CIARAN, 12.6 years * Sensing, impedance and thresholds reviewed and tested * Presenting Rhythm: -ADJUNCT PROFESSOR OF VOICE 60s * Underlying Rhythm: CHB VS 30s * Heart Rate Histograms reviewed * Pacing and Detection Parameters were evaluated us Order Referral Cardiovascular CV IMPLANT ABLE CARDIAC DEVICE PROCEDURES Edited Result - Final * PET CT Skull to Mid Thigh Subsequent (06/16/2025 3:36 PM EDT) Anatomical Region Laterality Modality Body Radiographic Brooke ging 06/17/2025 2:15 PM EDT Impressions 06/17/2025 2:22 PM EDT Mildly increased metabolic activity within slowly enlarging pleural-based nodule posteriorly in the left upper lobe. Resolved activity within right iliac crest lesion. No PET/CT evidence of metastatic disease. -------- FINAL REPORT -------- Dictated By: Dee Vaca Dictated Date: 06/17/2025 14:15 ET Assigned Physician: Dee Vaca Reviewed and Electronically Signed By: Dee Vaca Signed Date: 06/17/2025 14:22 ET Workstation ID: [id number] Transcribed By: Self Edit Transcribed Date: 06/17/2025 14:15 ET Narrative 06/17/2025 2:22 PM EDT INDICATION: Lung carcinoma, subsequent treatment strategy Prior relevant studies: PET/CT from March 22, 2022 Radiopharmaceutical: 13.4 mCi of F-18 FDG IV. Blood glucose: 152 mg/dl. PROCEDURE: Routine body FDG PET-CT imaging was performed from the skull base to the mid thighs and reconstructed in axial, coronal, and sagittal planes at the computer workstation with fused data from both the PET imaging study and attenuation correction CT. The CT portion of the examination was done strictly for attenuation correction and is not a true diagnostic CT examination. CTDI: 10.17 mGy FINDINGS: HEAD AND NECK: No abnormal FDG activity. THORAX: Focal activity noted within pleural-based posterior left upper lobe pulmonary nodule with FDG max of 5.3, previously 3.1. This nodule has increased in size now measuring up to 14 mm. Resolved faint activity in the left upper hilar region. No FDG avid thoracic nodes. ABDOMEN/PELVIS: No abnormal FDG activity. MUSCULOSKELETAL: Resolved activity within the right iliac crest lesion. Resolved activity within the anterior right third rib fracture. New focal activity within an anterior right fifth rib fracture with SUV max of 3. Procedure Note Dee Vaca MD - 06/17/2025 INDICATION: Lung carcinoma, subsequent treatment strategy Prior relevant studies: PET/CT from March 22, 2022 Radiopharmaceutical: 13.4 mCi of F-18 FDG IV. Blood glucose: 152 mg/dl. PROCEDURE: Routine body FDG PET-CT imaging was performed from the skullbase to the mid thighs and reconstructed in axial, coronal, and sagittalplanes at the computer workstation with fused data from both the PETimaging study and attenuation correction CT. The CT portion of theexamination was done strictly for attenuation correction and is not a truediagnostic CT examination. CTDI: 10.17 mGy FINDINGS: HEAD AND NECK: No abnormal FDG activity. THORAX: Focal activity noted within pleural-based posterior left upperlobe pulmonary nodule with FDG max of 5.3, previously 3.1. This nodule hasincreased in size now measuring up to 14 mm. Resolved faint activity in the left upper hilar region. No FDG avid thoracic nodes. ABDOMEN/PELVIS: No abnormal FDG activity. MUSCULOSKELETAL: Resolved activity within the right iliac crest lesion. Resolved activity within the anterior right third rib fracture. New focal activity within an anterior right fifth rib fracture with SUVmax of 3. IMPRESSION: Mildly increased metabolic activity within slowly enlarging pleural-basednodule posteriorly in the left upper lobe. Resolved activity within right iliac crest lesion. No PET/CT evidence of metastatic disease. -------- FINAL REPORT -------- Dictated By: Dee Vaca Dictated Date: 06/17/2025 14:15 ET Assigned Physician: Dee Vaca Reviewed and Electronically Signed By: Dee Vaca Signed Date: 06/17/2025 14:22 ET Workstation ID: [id number] Transcribed By: Self Edit Transcribed Date: 06/17/2025 14:15 ET [place] Perdue [facility] PROCED[facility] Final Result * (ABNORMAL) Basic metabolic panel (04/09/2025 5:53 AM EDT) Sodium 139 133 - 145 mmol/L LAB CHEMISTRY METHOD 04/09/2025 7:09 AM [facility] Potassium 4.2 3.5 - 5.5 mmol/L LAB CHEMISTRY METHOD 04/09/2025 7:09 AM [facility] Chloride 106 96 - 110 mmol/L LAB CHEMISTRY METHOD 04/09/2025 7:09 AM [facility] CO2 29 21 - 32 mmol/L LAB CHEMISTRY METHOD 04/09/2025 7:09 AM [facility] Anion Gap 4 3 - 11 LAB CHEMISTRY METHOD 04/09/2025 7:09 AM [facility] Glucose 191(H) 70 - 100 mg/dL LAB CHEMISTRY METHOD 04/09/2025 7:09 AM [facility] BUN 13 5 - 25 mg/dL LAB CHEMISTRY METHOD 04/09/2025 7:09 AM [facility] Creatinine 0.90 0.50 - 1.10 mg/dL LAB CHEMISTRY METHOD 04/09/2025 7:09 AM [facility] eGFR 66 >=60 mL/min/1. 73m2 LAB CHEMISTRY METHOD 04/09/2025 7:09 AM [facility] Comment:Calculation based on the Chronic Kidney Disease Epidemiology Collaboration (CKD-EPI) equation refit without adjustment for race. BUN/Creatinine Ratio 14.4 LAB CHEMISTRY METHOD 04/09/2025 7:09 AM EDT [facility] Calcium 9.0 8.5 - 10.5 mg/dL LAB CHEMISTRY METHOD 04/09/2025 7:09 AM EDT [facility] Blood Venous blood specimen / Unknown Venipuncture / Unknown 04/09/2025 5:53 AM EDT 04/09/2025 6:21 AM EDT us Mao VARGAS LAB BLOOD ORDERABLES Final Res ult [facility] ([facility]) [facility] [address] [place] [address], from Last 3 Months or Most Recently Relevant to Health Maintenance Insurance [employer] Advance Directives Documents on File Type Date Recorded 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
--- OUTSIDE RECORDS SUMMARY | 2025-09-15 09:30 | XMS_ITS | Clinical Summary ---
Author Organization [facility] Address [address] [place] [address] Care Team Providers Care Security Systems Administrator Name Role Phone Sary Waite MD Primary [...] 2025 , 07/27/2020, 08/15/2019, Additional history exists COVID-19 Vaccine ( season) 2025 04/28/2022, 07/28/2021 Fall Risk Screening 11/27/2025 11/27/2024 DTaP,Tdap,and Td Vaccines (2 - Td or Tdap) 09/15/2028 09/15/2018 Pneumococcal Vaccine: 50+ Years Completed 07/27/2020, 09/18/2019, 05/29/2016 Zoster Vaccines Completed 10/08/2020, 06/15, 07/04/2020 Hepatitis B Vaccines Aged Out No long er eligible based on patient's age to complete this topic Insurance [facility] Care Teams Security Systems Administrator Relationship Specialty Start Date End Date Sary Waite MD [address] [place] [address] PCP - General Internal Medicine 11/18/24
== END 2025-09-15 09:54 | disposition home or self-care (01) ==
LOC: HO.HMCC 08:59
PROVIDERS: PCP Internal Medicine; Visit Provider Internal Medicine
DX: Z13.9 Encounter for screening, unspecified (principal)

== ENCOUNTER 2025-09-22 10:47 | Outpatient (AMB) | payer MEDICARE, SELFPAY ==
[2025-09-22 10:49] VITALS: BP 152/64; PULSE 60; O2SAT 98; BMI 33.1
--- NOTE | 2025-09-22 10:49 | A.OFFVIS_ITS ---
Vital Signs 09/22/25 10:49 Height 5 ft Weight 169 lb 12.095 oz BMI 33.1 BP 152/64 H Blood Pressure Location Rt brachial Position Sitting Pulse 60 Pulse Source Pulse Oximeter Pulse Oximetry (%) 98 Oxygen Delivery Method Room Air Intake Visit Reasons: T2DM Intake Note: Patient presents today for a follow-up on Type 2 Diabetes Mellitus: Last Diabetic eye exam was on: DUE, patient needs to make an appt Last Podiatry exam was on: Patient does not see a Lpn Cma Most recent HbA1c: 8.3%, 09/22/2025 Random Glucose: 248 mg/dL Blow Pit Helper Required: No Accompanied by: Significant Other Allergies sulfamethoxazole (From Bactrim) Allergy (Severe, Verified 09/22/25 10:56) Rash adhesive tape (ADHESIVE TAPE) Allergy (Intermediate, Verified 09/22/25 10:56) BLISTERS clonidine Allergy (Verified 09/22/25 10:56) makes pt hulusinate adhesive Adverse Reaction (Severe, Verified 09/22/25 10:56) BLISTERS gabapentin Adverse Reaction (Severe, Verified 09/22/25 10:56) hallucination hydromorphone (From Dilaudid) Adverse Reaction (Severe, Verified 09/22/25 10:56) Hallucinations morphine Adverse Reaction (Severe, Verified 09/22/25 10:56) hallucination glue Adverse Reaction (Severe, Uncoded 09/22/25 10:56) BLISTERS HPI Comments Details: 80 YO F with type 2 diabetes presenting for follow up Medical history: CAD s/p 2018, MARIBELL adenocarcinoma bony mets, BCC, s/p TAVR 01/29 Initially diagnosed with diabetes >15 years ago Was initially started on treatment with metformin. She was started on insulin in 2021. Had pancreatitis 2021 Current regimen Metformin 1000mg twice daily Lantus -18 from units daily Humalog 60- 150: No coverage 151- 200: 4 units 201- 250: 6 units 251- 300: 8 units 301- 350: 10 units 351- 400: 12 units Per the CGM [place] 2- GMI not available%, target 36, high 64%. Glucose readings much higher since starting olanzapine, +weight gain A1C today is 8.3% 09/22/25 from 8.4% from 8.9% from 12/19/24 9.3%. Recent she is s/p TAVR, PPM with delayed wound healing Treats lows with OJ . Checks sugar after to ensure it is rising. Treats according to rule of 15's. Family history of T2DM in maternal Aunt Eye exam-reports utd Denies neuropathy not sees podiatry. Denies nephropathy, on SHAMA/ARB. Has HLD, on statin. Has CAD S/P CABG . Saw clinical nurse educator last year ROS see HPI PHYSICAL EXAM: GENERAL: Alert and oriented x 3. NAD EYES: EOMI. Anicteric. HENT: Moist mucous membranes. No scleral icterus. No cervical lymphadenopathy. LUNGS: Clear to auscultation bilaterally. CARDIOVASCULAR: Regular rate and rhythm. No murmur. No JVD. ABDOMEN: Soft, non-tender +bs EXTREMITIES: No edema. Non-tender. SKIN: mild purulence at BCC left forearm with some surrounding erythema and warmth NEUROLOGIC: No focal neurological deficits. CN II-XII grossly intact PSYCHIATRIC: Cooperative. Appropriate mood and affect [facility] Medical History Insomnia Depression with anxiety Hx of aortic valve stenosis Diabetes mellitus with hyperglycemia, with long-term current use of insulin Hx of sigmoidoscopy Metformin adverse reaction Adenocarcinoma of left lung (~2021) Atypical migraine Transient cerebral ischemia AVM (arteriovenous malformation) of colon Normocytic anemia Nonrheumatic mitral valve regurgitation Obesity History of blood transfusion Barretts esophagus AAA (abdominal aortic aneurysm) (~2008) Bleeding hemorrhoids Anemia Arthritis On anticoagulant therapy (~10/2020) Pulmonary nodules Mixed dyslipidemia Vitamin B12 deficiency GIB (gastrointestinal bleeding) COPD (chronic obstructive pulmonary disease) Bilateral pulmonary embolism (~10/2020) Restless leg syndrome Irritable bowel syndrome with both constipation and diarrhea GERD without esophagitis CAD (coronary artery disease) Essential hypertension Surgical History S/P TAVR (transcatheter aortic valve replacement) History of lung biopsy (~2021) History of esophagogastroduodenoscopy (EGD) (~2020) History of hysterectomy History of colonoscopy (~2018) History of coronary artery bypass graft x 2 (~2017) History of total right knee replacement (TKR) (~2015) History of bilateral breast reduction surgery (~2010) S/P excision of lipoma (~2017) History of heart artery stent (~2007) Family History Father HTN (hypertension) Myocardial infarction Hyperlipidemia Abdominal aneurysm Mother HTN (hypertension) Myocardial infarction Hyperlipidemia Brother Alzheimer's disease Substance abuse Sister Rheumatoid arthritis Brother Rheumatoid arthritis Maternal Aunt Diabetes mellitus Lung cancer Maternal Uncle Diabetes mellitus Son No problems noted. Daughter No problems noted. 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/ [employer] Sexual orientation: Straight/Heterosexual Cognitive needs: No Hearing needs: No Vision needs: Yes Physical Exam Vital Signs: Last Vital Signs Pulse 60 09/22/25 10:49 BP 152/64 H 09/22/25 10:49 Pulse Ox 98 09/22/25 10:49 Oxygen Delivery Method Room Air 09/22/25 10:49 BMI result Body Mass Index 33.1 Results AMB Hemoglobin A1c AMB Hemoglobin A1c 8.3 % Last Edit by SIMEON Casillas on 09/22/25 11:05 Results Reviewed Results Reviewed: Laboratory Last Values Glucose (Clinic) 248 mg/dL (60-115) H 09/22/25 10:54 Assessment & Plan Assessment & Plan (1) Diabetes mellitus with hyperglycemia, with long-term current use of insulin: Code(s): E11.65 - Type 2 diabetes mellitus with hyperglycemia; Z79.4 - care home (current) use of insulin Category: Medical Qualifiers: Diabetes mellitus type: type 2 Qualified Code(s): E11.65 - Type 2 diabetes mellitus with hyperglycemia; Z79.4 - termite renewal inspector (current) use of insulin Plan 80 year old for follow up Recently more poorly controlled blood sugar since starting olanzapine. Also reporting weight gain with the medication Start mounjaro 2.5mg weekly Continue insulin, acarbose, metformin at current dose Orders: Orders AMB Hemoglobin A1c Today Z86.39 - Personal history of other endocrine, nutritional and metabolic disease Medications: New Mounjaro (tirzepatide) for 4 weeks 2.5 mg (0.5 mL) subcut QWEEK 2 mL 3RF NS E11.65 - Type 2 diabetes mellitus with hyperglycemia, Z79.4 - termite renewal inspector (current) use of insulin Coding Level of Care Code Est Pt Level 4 (42202) Diagnoses Type 2 diabetes mellitus with hyperglycemia, with long-term current use of insulin E11.65; Z79.4 Diabetes mellitus type: type 2
[2025-09-22 10:57] LABS: Glucose, Whole Blood 248 mg/dL (60-115)
== END 2025-09-22 11:31 | disposition home or self-care (01) ==
LOC: HO.ENCR 10:48
PROVIDERS: PCP Internal Medicine; Visit Provider Internal Medicine
DX: E11.65 Type 2 diabetes mellitus with hyperglycemia (principal); Z79.4 Long term (current) use of insulin; Z86.39 Personal history of other endocrine, nutritional and metabolic disease

== ENCOUNTER → 2025-09-22 10:47 | Outpatient (BNVA) | payer MEDICARE, SELFPAY | PROVIDERS: PCP Internal Medicine; Visit Provider Internal Medicine | DX: E11.65 Type 2 diabetes mellitus with hyperglycemia (principal); R63.5 Abnormal weight gain; Z79.4 Long term (current) use of insulin; Z79.84 Long term (current) use of oral hypoglycemic drugs | CPT/HCPCS: 82947; 83036; 99212 ==

== ENCOUNTER 2025-10-04 13:08 | Outpatient (REF) | payer MEDICARE, SELFPAY ==
--- NOTE | ~2025-10-04 | CT_ITS ---
EXAMINATION: CT CHEST WITH CONTRAST CLINICAL INFORMATION: Follow-up left lung nodule COMPARISON: CT chest 05/21/2025 TECHNIQUE: Multidetector volumetric CT imaging of the chest was obtained after the administration of 65 mL of Omnipaque 350 intravenous contrast without immediate adverse reactions. Axial MIP volume rendering provided. Sagittal and coronal reformatted images were obtained. This CT examination was performed using dose optimization techniques as appropriate, variously including the following: *Automated exposure control *Adjustment of mA and/or kV according to patient size (this includes techniques or standardized protocols for targeted exams where dose is matched to indication/reason for exam; i.e. extremities or head) *Use of iterative reconstruction technique FINDINGS: LUNGS: Trachea and proximal central airway is patent. Again seen is a suspicious mass in the left upper lobe. This measures 2.2 cm AP, 1.5 cm transverse (series 5: Image 42). This has increased in size as compared to previous measurement of 1.6 x 1.2 cm. Findings are highly suspicious for neoplasm. Stable 2 mm nodule in the right upper lobe. Moderate emphysematous changes. MEDIASTINUM: No suspicious thyroid findings. Lymph node in the AP window measuring 1.1 cm transverse, 0.8 cm AP, stable from previous. No hilar lymphadenopathy. Cardiomegaly. No pericardial effusion. TAVR device present. Severe coronary artery calcification, status post CABG. PLEURA: There is no pleural effusion. No pleural mass or thickening. AXILLA: No lymphadenopathy. UPPER ABDOMEN: No acute findings OSSEOUS STRUCTURES: Multilevel degenerative changes spine. No destructive lesion seen. CT/CT chest w IV con IMPRESSION: 1. Redemonstrated is a mass in the left upper lobe. This currently measures 2.2 x 1.5 cm, increased in size from the previous measurement of 1.6 x 1.2 cm. Findings are highly suspicious for neoplasm. Recommend further workup, with considerations for PET/CT, biopsy. Findings were sent to Maine Perdue M.D. by secure text message on October 04, 2025 at 3:22 PM. Electronically signed by: Maico Soto MD 10/04/2025 03:23 PM [facility]
[2025-10-04] MEDS: iohexoL 350 MG/ML 100 ML INFUS..BTL 65 ML IV (14:53)
--- OUTSIDE RECORDS SUMMARY | 2025-10-04 16:28 | XMS_ITS | Clinical Summary ---
Author Organization [facility] Facility Address [address] [address] Care Team Providers Care Can Filling Machine Operator Name Role Phone Elayne Waite MD Primary Care Provider [phone]- [phone] Allergies Active Allergy Reactions Criticality Noted Date [...] Health Medicare [facility] Medicare Care Teams Can Filling Machine Operator Relationship Specialty Start Date End Date Elayne Waite MD PCP - General Internal Medicine 02/26/22
--- OUTSIDE RECORDS SUMMARY | 2025-10-04 16:28 | XMS_ITS | Clinical Summary ---
Author Organization [facility] Address [address] [place] [address] Care Team Providers Care Pathology Supervisor Name Role Phone Sary Waite MD Primary [...] 137 mcg (0.1 %) nasal spray SMARTSI Edison(s) Both Nares Twice Daily PRN 4 Active [...] patient's age to complete this topic Insurance [facility] Care Teams Pathology Supervisor Relationship Specialty Start Date End Date Sary Waite MD [address] [place] [address] PCP - General Internal Medicine 11/18/24
--- OUTSIDE RECORDS SUMMARY | 2025-10-04 16:28 | XMS_ITS | Clinical Summary ---
Author Organization Patient Business Ser [facility] Address [address] [place] [address] Care Team Providers Care Petrophysicist Name Role Phone Sary Waite MD Primary [...] 100 unit/mL injection Sliding scale Active lisinopriL (PRINIVIL,ZESTR IL) 2.5 mg tablet Take 1 tablet (2.5 [...] Take 50 mcg by mouth daily. Active hyoscyamine (ANASPAZ,LEVSIN ) 0.125 mg tablet Take 1 tablet (0.125 mg total) by mouth 2 (two) times a day. Active lipase-protease -amylase (Zenpep) 3,000-10,000 -14,000-unit capsule,delayed release(DR/EC) Take 3 tablets by mouth 1 (one) time each day. Active atorvastatin (LIPITOR) 80 mg tablet Take 1 tablet (80 mg total) by mouth at bedtime. Active apixaban (ELIQUIS) 5 mg tablet Take 1 tablet (5 mg total) by mouth 2 (two) times a day. Active azelastine-flut icasone 137-50 mcg/spray spray,non-aeros ol Administer 1 spray into affected nostril(s) 1 (one) time each day. Active metoprolol succinate (TOPROL-XL) 50 mg 24 hr tabletIndicatio ns:Essential hypertension,Co ronary artery disease involving ugashik coronary artery of ugashik heart without angina pectoris Take 1 tablet (50 mg total) by mouth 1 (one) time each day. Do not crush or chew. 90 tablet 3 02/18/20 25 026 Active metFORMIN (FORTAMET) 1,000 mg 24 hr tablet Take 1 tablet (1,000 mg total) by mouth 2 (two) times a day. Do not crush, chew, or split. 06/11/20 25 Active acarbose (PRECOSE) 25 mg tablet Take 1 tablet (25 mg total) by mouth 1 (one) time each day after dinner. 03/24/20 25 Active OLANZapine (ZyPREXA) 2.5 mg tablet Take 1 tablet (2.5 mg total) by mouth at bedtime. Active dilTIAZem CD (CARDIZEM CD) 240 mg 24 hr capsuleIndicati ons:Essential hypertension,Co ronary artery disease involving ugashik coronary artery of ugashik heart without angina pectoris Take 1 capsule by mouth every day 90 capsule 2 10/04/20 25 Active isosorbide mononitrate (IMDUR) 30 mg 24 hr tablet Take 1 tablet by mouth every day 90 tablet 1 10/04/20 25 Active isosorbide mononitrate (IMDUR) 30 mg 24 hr tablet TAKE 1 TABLET BY MOUTH DAILY 90 tablet 3 12/02/19 25 025 Discontinued dilTIAZem CD (CARDIZEM CD) 240 mg 24 hr capsuleIndicati ons:Essential hypertension,Co ronary artery disease involving ugashik coronary artery of ugashik heart without angina pectoris Take 1 capsule (240 mg total) by mouth 1 (one) time each day. 90 each 3 02/18/20 25 025 Discontinued Active Problems Problem Noted Date Diagnosed Date [...] 2018 she presented with chest pain to [facility] and urgent angiogram showed multivessel disease status post two vessel CABG with DURHAM to LAD and SVG to OM1; complicated by difficult vein harvesting with subsequent leg wounds 2021 - preTAVR angiogram showing progressive disease with new CATTLE FEEDER of dominant RCA Assessment & Plan (07/20/2025 3:02 PM EDT): Catheterization from 2021 showed patent grafts with known CATTLE FEEDER of RCA. Echocardiogram from November 2024 showed [...] from 2021 showed patent grafts with known CATTLE FEEDER of RCA. Echocardiogram from November 2024 showed [...] from 2021 showed patent grafts with known CATTLE FEEDER of RCA. Echocardiogram from November 2024 showed [...] not crush or chew. Complete heart block 02/15/2025 Assessment & Plan (03/26/2025 3:24 PM EDT): Chest pain 02/08/2023 COPD (chronic obstructive pulmonary disease) Mixed hyperlipidemia 01/26/2022 Assessment & Plan (07/20/2025 3:02 PM EDT): Continue with atorvastatin. Assessment & Plan (04/12/2025 3:07 PM EDT): Continue with atorvastatin. Orders: ECG 12 lead Assessment & Plan (02/17/2025 11:53 AM EDT): Continue with atorvastatin. Obesity 01/26/2022 Type 2 diabetes mellitus without complications 0 01/26/2022 Overview (11/16/2024): w/o supervisor intermediates current use of insulin Pain of right lower extremity 09/29/2021 Abdominal aortic aneurysm (AAA) without rupture 03/14/2021 Primary hypertension 03/14/2021 Assessment & Plan [...] y embolism without acute cor pulmonale 03/14/2021 S/P TAVR (transcatheter aortic valve replacement ) 03/14/2021 Overview (04/12/2025): January 28, 2025 successful transfemoral transcatheter aortic valve replacement utilizing a Medtronic evolute 29 mm valve via the femoral approach by Dr. Humphries at [facility]; procedure complicated by complete heart block with [...] Date Diagnosed Date Resolved Date Cardiac arrest 04/07/2025 04/09/2025 Infection of pacemaker pocket 02/25/2025 04/09/2025 Encounters Date Type Department Care Team Description 08/31/2025 8:45 AM EST Ancillary Procedure [facility] [address] [place] [address] 08/29/2025 7:20 PM EST Ancillary Procedure [facility] [address] [place] [address] 08/27/2025 10:00 AM EST Ancillary Procedure [facility] [address] [place] [address] Encounter for adjustment or management of cardiac device 07/20/2025 1:10 PM EDT Office Visit [facility] [address] [place] [address] Armando Bentley NP S/P TAVR (transcatheter aortic valve replacement) (Primary Dx); Coronary artery disease involving ugashik coronary artery of ugashik heart without angina pectoris; Pacemaker; Primary hypertension; Mixed hyperlipidemia from Last 3 Months Surgical History Surgery Date Site/Laterality Comments OTHER SURGICAL HISTORY Bilateral PROCEDURE: HISTORY OTHER; COMMENT: breast reduction surgey COLONOSCOPY PROCEDURE: HISTORICAL COLONOSCOPY CORONARY ARTERY BYPASS GRAFT 2017 PROCEDURE: HISTORICAL CABG; COMMENT: x 2 OTHER SURGICAL HISTORY PROCEDURE: [place] EGD PARTIAL/COMPL ESOPHAGOGASTRIC FUNDOPLASTY OTHER SURGICAL HISTORY PROCEDURE: HISTORY OTHER; COMMENT: Heart Artery Stent HYSTERECTOMY PROCEDURE: HISTORICAL HYSTERECTOMY TOTAL KNEE ARTHROPLASTY PROCEDURE: [place] ARTHRP KNE CONDYLE&PLATU MEDIAL&LAT COMPARTMENTS LIPOMA RESECTION PROCEDURE: SKIN TISSUE EXCISION(LIPOMA) OTHER SURGICAL HISTORY [place] [facility] [place] w[place]KM. INDICATIONS: Aortic stenosis [place] [facility] [place] w/SR. INDICATIONS: Complete Heart Block with Non Reversible, Symptomatic Bradycardia Medical History Medical History Date Comments Anemia DX:Anemia Arthritis DX:Arthritis Atypical migraine DX:Atypical mi graine AVM (arteriovenous malformation) of colon DX:AVM (arteriovenous malformation) of colon Barretts esophagus DX:Barretts e sophagus Bleeding hemorrhoids DX:Bleeding hemorrhoids COPD (chronic obstructive pu lmonary disease) ([facility] V24, [facility] V28) DX:COPD (chronic o bstructive pulmonary disease) ([facility]) Depression DX:Depression GERD (gastroesophageal reflux disease) DX:GERD (gastroesophageal reflux disease) GIB (gastrointestinal bleeding) DX:GIB (gastrointestinal bleeding) History of blood transfusion DX: History of blood transfusion IBS (irritable bowel syndrome) D X:IBS (irritable bowel syndrome); COMMENT: w/ both constipation and diarrhea Major depression in full rem ission ([facility] V24) DX:Major depression in full remission ([facility]) Obesity DX:Obesity Restless leg syndrome DX:Restles s leg syndrome Transient cerebral ischemia DX:T ransient cerebral ischemia Type 2 diabetes mellitus wit hout complications ([facility] V24, [facility] V28) DX:Type 2 bo betes mellitus without complications ([facility]); COMMENT: w/o group home current use of insulin Adenocarcinoma of left lung ([facility] V24, [facility] V28) DX:Adenocarcinoma of left marce ng ([facility]) Anxiety and depression Hypertension Hyperlipidemia H/O: lung [...] for your loved ones. For example, child adolescent psychiatrist or elderly care for an older adult? [...] Orientation Straight 02/18/2023 11 :05 PM EDT Last Filed Vital Signs Vital Sign Reading [...] Description 02/25/2026 1:00 PM EDT Ancillary Procedure [facility] [address] [facility] [address] [place] [address] Health Maintenance Due Date Last Done Comments Drug Screen 1945 Non-Opioid Controlled Substance Agreement 1945 Diabetes: Annual Foot Exam 1957 Diabetes: [...] this topic Medical Devices Implanted Type Area Linen Room Houseperson Device Identifier Shelf Expiration Date Model / Serial / Lot Medt-Card Eloisa Xt Dr Monroy [id number] Implanted:2024 (Quantity not on file) Cardiac Pacemaker MEDTR[employer]IC - CARDIAC RHYTH-CRDM ELOISA XT DR MONROY [id number] / [id number] / Medt-Card Eloisa Xt Dr Monroy [id number] Implanted:2024 (Quantity not on file) Cardiac Pacemaker MEDTRONIC - CARDIAC RHYTH-CRDM ELOISA XT DR MONROY / [id number] / Pacemaker Leadless 19.5f 38mm Rv - [id number] - [id number] Implanted:Qty: 1 on 04/07/2025 by Devyn Tenorio MD at [facility] Cardiac Pacemaker Left: Chest Wall [facility] [id number] 02/17/2027 [id number] / [id number] / Pacemaker Leadless 19.5f 32.2mm Ra - [id number] - [id number] Implanted:Qty: 1 on 04/07/2025 by Devyn Tenorio MD at [facility] Cardiac Pacemaker Left: Chest Wall [facility] [id number] 03/01/2027 [id number] / [id number] / Abbt-Stju Aveir Lp [id number] Implanted:2024 (Quantity not on file) Cardiac Pacemaker [facility] [id number] / [id number] / Absorber Antibacterial Med Envelope Tyrx - [id number] - [id number] Implanted:Qty: 1 on 03/03/2025 by Devyn Tenorio MD at [facility] Other Cardiac Implant Left: Chest [employer] - CARDIAC RHYTH-[facility] [id number] 09/09/2025 [id number] / [id number] / [id number] Procedures Procedure Name Priority Date/Time Associated Diagnosis Comments CARDIAC DEVICE CHECK- REMOTE- MURJ Routine 08/31/2025 8:44 AM EST CARDIAC DEVICE CHECK- IN CLINIC- MURJ Routine 08/27/2025 1:01 PM EST Encounter for adjustment or management of cardiac device BASIC METABOLIC PANEL Routine 04/09/2025 5:53 AM EDT from Last 3 Months or Most Recently Relevant to Health Maintenance Results * Cardiac device check - Remote- MURJ (08/31/2025 8:44 AM EST) Date Time Interrogation Session [id number] CV DEVICE CHECK Type Interrogation Session Remote CV DEVICE CHECK Implantable Pulse Generator Linen Room Houseperson [employer] CV DEVICE CHECK Implantable Pulse Generator Type IPG CV DEVICE CHECK Implantable Pulse Generator Model Aveir LP [id number] CV DEVICE CHECK Implantable Pulse Generator Serial Number [id number] CV DEVICE CHECK Implantable Pulse Generator Implant Date [id number] CV DEVICE CHECK Battery Remaining Longevity 110.0 CV DEVICE CHECK Battery Voltage 3.000 CV D EVICE CHECK Battery CHEMICAL PRODUCTION TECHNICIAN Trigger 2.710 CV DEVICE CHECK Battery Status [...] Result * CARDIAC DEVICE CHECK- IN CLINIC- [facility] (08/27/2025 1:01 PM EST) Date Time Interrogation Session [id number] CV DEVICE CHECK Implantable Pulse Generator Linen Room Houseperson [employer] CV DEVICE CHECK Implantable Pulse Generator Type IPG CV DEVICE CHECK Implantable Pulse Generator Model Aveir LP [id number] CV DEVICE CHECK Implantable Pulse Generator Serial Number [id number] CV DEVICE CHECK Implantable Pulse Generator Implant [...] Leadless Pacemaker done by Haylie Johnson with [employer] * Normal Device Function * Alerts or events: None * Battery: CIARAN, 12.6 years * Sensing, impedance and thresholds reviewed and tested * Presenting Rhythm: -SHIRT BANDER 60s * Underlying Rhythm: CHB VS 30s * Heart Rate Histograms reviewed * Pacing and Detection Parameters were evaluated Narrative Procedure Note Devyn Tenorio MD - 08/30/2025 IMPRESSION: Normal In-Office: No Events * Device Check on Dual Aveir Leadless Pacemaker done by Haylie Johnsonwith [employer] * Normal Device Function * Alerts or events: None * Battery: CIARAN, 12.6 years * Sensing, impedance and thresholds reviewed and tested * Presenting Rhythm: -SHIRT BANDER 60s * Underlying Rhythm: CHB VS 30s * Heart Rate Histograms reviewed * Pacing and Detection Parameters were evaluated us Order Referral Cardiovascular CV IMPLANT ABLE CARDIAC DEVICE PROCEDURES Edited Result - Final * (ABNORMAL) Basic metabolic panel (04/09/2025 5:53 AM EDT) Sodium 139 133 - 145 mmol/L LAB CHEMISTRY METHOD 04/09/2025 7:09 AM [facility] Potassium 4.2 3.5 - 5.5 mmol/L LAB CHEMISTRY METHOD 04/09/2025 7:09 AM [facility] Chloride 106 96 - 110 mmol/L LAB CHEMISTRY METHOD 04/09/2025 7:09 AM [facility] CO2 29 21 - 32 mmol/L LAB CHEMISTRY METHOD 04/09/2025 7:09 AM [facility] Anion Gap 4 3 - 11 LAB CHEMISTRY METHOD 04/09/2025 7:09 AM [facility] Glucose 191(H) 70 - 100 mg/dL LAB CHEMISTRY METHOD 04/09/2025 7:09 AM [facility] BUN 13 5 - 25 mg/dL LAB CHEMISTRY METHOD 04/09/2025 7:09 AM [facility] Creatinine 0.90 0.50 - 1.10 mg/dL LAB CHEMISTRY METHOD 04/09/2025 7:09 AM [facility] eGFR 66 >=60 mL/min/1. 73m2 LAB CHEMISTRY METHOD 04/09/2025 7:09 AM [facility] Comment:Calculation based on the Chronic Kidney Disease Epidemiology Collaboration (CKD-EPI) equation refit without adjustment for race. BUN/Creatinine Ratio 14.4 LAB CHEMISTRY METHOD 04/09/2025 7:09 AM [facility] Calcium 9.0 8.5 - 10.5 mg/dL LAB CHEMISTRY METHOD 04/09/2025 7:09 AM EDT [facility] Blood Venous blood specimen / Unknown Venipuncture / Unknown 04/09/2025 5:53 AM EDT 04/09/2025 6:21 AM EDT us Mao VARGAS LAB BLOOD ORDERABLES Final Res ult [facility] [address] [place] [address], [place] [phone] from Last 3 Months or Most Recently Relevant to Health Maintenance Insurance [employer] KATHRYN BRETT [id number] Advance Directives Documents on File Type Date Recorded Patient Psychologist Personnel Expl anation Health Care Decision (hx) 04/10/2022 AD KIDD DIRECTIVE Health Care Decision (hx) 04/10/2022 AD KIDD DIRECTIVE Health Care Decision (hx) 04/10/2022 AD KIDD DIRECTIVE Health Care Decision (hx) 04/10/2022 AD KIDD DIRECTIVE Health Care Decision (hx) 04/10/2022 AD KIDD DIRECTIVE Health Care Decision (hx) 04/10/2022 AD KIDD DIRECTIVE Care Teams Petrophysicist Relationship Specialty Start Date End Date Espinas, Sary L, MD [address] [place] [address] PCP - General 02/08/16
== END 2025-10-04 13:09 | disposition home or self-care (01) ==
LOC: HO.CT 13:08
PROVIDERS: PCP Internal Medicine; Visit Provider Internal Medicine
DX: C34.12 Malignant neoplasm of upper lobe, left bronchus or lung (principal)
CPT/HCPCS: 71260; Q9967

== ENCOUNTER → 2025-10-04 13:10 | Outpatient (BNV) | payer MEDICARE, SELFPAY | PROVIDERS: PCP Internal Medicine; Visit Provider Radiology Diagnostic Ultrasound | DX: R91.8 Other nonspecific abnormal finding of lung field (principal) | CPT/HCPCS: 71260 ==